=== PATIENT | female | born 1940 | race Caucasian/White ===

== ENCOUNTER 2018-01-14 17:14 | Emergency (ER) | payer MEDICARE, SELFPAY ==
[2018-01-14 17:16] VITALS: PULSE 75; RESP 18; TEMP 36.9; O2SAT 96; BMI 51.2
[2018-01-14 17:22] VITALS: BP 92/67
--- NOTE | 2018-01-14 17:52 | RAD_ITS ---
STUDY: X-RAY - PELVIS AND LEFT HIP REASON FOR EXAM: Female, 77 years old. Left hip pain after fall TECHNIQUE: Radiological exam, hip, unilateral, with pelvis when performed; 2 or 3 views. COMPARISON: None. FINDINGS: There is a non-specific bowel gas pattern. Normal visualized soft tissue structures. Normal bilateral iliac wings, sacroiliac joints and visualized sacrum. Normal bilateral superior and inferior pubic rami. Normal pubic symphysis. Normal bilateral ischial tuberosities. There are osteoarthritic changes of the femoral head with marginal osteophyte formation. Normal acetabulum. There is mild articular joint space narrowing of the hip. RAD/Hip 2-3 Views with Pelvis IMPRESSION: No acute finding Electronically Signed: Liu Live DO at 18:35 EST Tel , Service support ,
--- NOTE | 2018-01-14 17:52 | RAD_ITS ---
STUDY: X-RAY - LEFT KNEE REASON FOR EXAM: Female, 77 years old. Left knee pain after fall TECHNIQUE: 4 view(s) of the knee. COMPARISON: None. FINDINGS: Status post total knee arthroplasty. No evidence of hardware failure or loosening. No significant soft tissue swelling or joint effusion. No acute fracture RAD/Knee 4 or More Views IMPRESSION: No acute finding Electronically Signed: Liu Live DO at 18:36 EST Tel , Service support ,
--- NOTE | 2018-01-14 17:52 | RAD_ITS ---
STUDY: X-RAY - LEFT TIBIA AND FIBULA REASON FOR EXAM: Female, 77 years old. Status post fall TECHNIQUE: 2 view(s) of the tibia and fibula were obtained. COMPARISON: None. FINDINGS: Normal visualized tibia. Normal visualized fibula. Partially imaged bony arthroplasty without evidence of complications The soft tissue structures are unremarkable. RAD/Tibia & Fibula 2 Views IMPRESSION: No acute findings Electronically Signed: Liu Live DO at 18:37 EST Tel , Service support ,
--- NOTE | 2018-01-14 17:52 | RAD_ITS ---
STUDY: X-RAY - UNILATERAL RIBS ( LEFT ) WITH CHEST REASON FOR EXAM: Female, 77 years old. Anterior mid left rib pain after fall TECHNIQUE - RIBS: 4 view(s) of the ribs. TECHNIQUE - CHEST: Single frontal view of the chest. COMPARISON: None. FINDINGS - RIBS: Normal visualized ribs without a demonstrated fracture. FINDINGS - CHEST: The lungs are clear and expanded. There is no demonstrated pleural abnormality. There is mild cardiac enlargement. Normal mediastinum and ester. Normal visualized pulmonary arteries. Normal visualized aortic arch and descending thoracic aorta. There are diffuse degenerative changes of the visualized thoracic spine. There is degenerative osteoarthritis of the bilateral shoulders. There is no demonstrated abnormality of the visualized soft tissue structures of the upper abdomen. RAD/Ribs Uni Min 3V w/PA Chest IMPRESSION: RIBS: Normal x-ray examination of the ribs. CHEST: Mild cardiomegaly. Without acute airspace disease or pneumothorax Electronically Signed: Liu Live DO at 18:37 EST Tel , Service support ,
--- NOTE | 2018-01-14 17:53 | ED.VISSUMM ---
- ER Visit Summary Date of Service: 01/14/18 Chief Complaint: Fall History of Present Illness: The patient is a 77 F presenting after fall. Patient states she turned a corner and tripped and fell. She was at [employer] when this occurred. She did not hit her head or lose consciousness. She complains of left knee and left-sided rib pain. No difficulty breathing. No symptoms before the fall. She did not attempt to ambulate after the fall. She is not on anticoagulants. Physical Examination: Vitals are stable. Patient is afebrile. Alert no acute distress. HEENT exam is unremarkable. Neck is nontender Lungs are clear and equal bilaterally. Left lower chest tenderness with no crepitus Heart is regular rate and rhythm. Abdomen is soft nontender nondistended. No guarding or rebound. Extremities are left anterior knee ecchymosis and tenderness, mild left hip tenderness. Active full range of motion. Normal distal pulse Skin is warm and dry. No focal neurologic deficit. Remainder of exam is unremarkable. Emergency Department Course and Treatment: X-ray of the left tib-fib, knee, and hip show no acute process. X-ray of the left ribs shows no acute process. Patient is able to ambulate in the ED. She is in pain management and will follow-up at her scheduled appointment on Tuesday. She is advised to return to ED for any worsening complaints. Disposition: Discharge home Impression: Status post mechanical fall, LLE contusion, Left chest wall contusion This note was generated with [employer] dictation software. It may contain incorrect words, spelling, and punctuation that were not noted in review of the chart prior to signing ED Disposition - Plan for ED Patient: Chief Complaint: Fall Referrals: Leno Son MD [Primary Care Provider] -
--- NOTE | 2018-01-14 19:14 | ED.DEP ---
ED Disposition - Plan for ED Patient: Chief Complaint: Fall Instructions: ED Mechanical Fall Referrals: Leno Son MD [Primary Care Provider] -
[2018-01-14 19:16] VITALS: BP 100/70; PULSE 72; RESP 16
== END 2018-01-14 19:17 | disposition home or self-care (01) ==
LOC: ED 18:36
PROVIDERS: Emergency Provider Emergency Medicine; Family Provider Family Medicine; PCP Family Medicine
DX: S80.02XA Contusion of left knee, initial encounter (principal); S20.212A Contusion of left front wall of thorax, initial encounter; W01.0XXA Fall on same level from slipping, tripping and stumbling without subsequent striking against object, initial encounter; Y93.9 Activity, unspecified; Y92.59 Other trade areas as the place of occurrence of the external cause; I50.9 Heart failure, unspecified; J44.9 Chronic obstructive pulmonary disease, unspecified; Z96.652 Presence of left artificial knee joint; Z79.82 Long term (current) use of aspirin; Z79.899 Other long term (current) drug therapy
CPT/HCPCS: 71101; 73502; 73564; 73590; 99285

== ENCOUNTER 2023-11-06 14:05 | Inpatient (IN) | payer MEDICARE, SELFPAY ==
[2023-11-06] VITALS (11 sets, daily range): BP systolic 127–180; BP diastolic 55–92; PULSE 69–88; RESP 18–22; TEMP 36.4–37.7; O2SAT 88–98; BMI 57.1; BMI 51.7
--- NOTE | 2023-11-06 14:18 | EKG12_ITS ---
Test Reason : SOB Blood Pressure : / mmHG Vent. Rate : 089 BPM Atrial Rate : 089 BPM P-R Int : 152 ms QRS Dur : 078 ms QT Int : 354 ms P-R-T Axes : 088 -21 087 degrees QTc Int : 430 ms Sinus rhythm with Premature atrial complexes Nonspecific ST and T wave abnormality Abnormal ECG Confirmed by GILLIAN MIMS, MARISOL ([id number]), editor greeting card ELEUTERIO KAMARA ([id number]) on 11/08/2023 8:34:45 AM Referred By: NARCISO Confirmed By:MARISOL FRENCH MD
--- NOTE | 2023-11-06 14:33 | ED.RN ---
NO OLD EKG
--- NOTE | 2023-11-06 14:46 | RAD_ITS ---
STUDY: XR Chest 1 View 11/06/2023 2:45 PM REASON FOR EXAM: Female, 83 years old. sob COMPARISON: None TECHNIQUE: XR Chest 1 View FINDINGS: There is no demonstrated pleural abnormality. Right infiltrate. Enlarged heart size. Normal mediastinum. Normal ester. Prominent appearing increased interstitial lung markings. Normal visualized pulmonary arteries. There is atherosclerotic calcification of the aortic arch with tortuosity. There are diffuse degenerative changes of the visualized thoracic spine. There is degenerative osteoarthritis of the bilateral shoulders. There are no acute findings of the upper abdomen. RAD/Chest 1 View (Portable) IMPRESSION: Right sided pneumonia. Electronically Signed: Mitch Muniz MD at 15:18 EST ,
[2023-11-06 14:47] LABS: Absolute Lymphocyte Count 0.66 X10^3/uL (0.83-4.51); Absolute Neutrophil Count 3.9 X10^3/uL (2.0-7.7); Basophil# 0.03 X10^3/uL; Basophil% 0.6 % (0-1); Eosinophil# 0.04 X10^3/uL; Eosinophils% 0.8 % (0-5); Hematocrit 29.6 % (37-47); Hemoglobin 8.3 g/dL (12.0-15.0); Lymphocyte # 0.66 X10^3/ul (0.83-4.51); Lymphocyte % 12.4 % (19-41); Mean Corpuscular Hgb 22.4 pg (27.0-32.0); Mean Platelet Vol. 10.7 fl (6.2-12.0); Monocyte# 0.69 X10^3/uL; NRBC Flagged by Analyzer 0 % (0-5); Neutrophil # 3.88 X10^3/uL (2.7-7.7); Neutrophil % 72.8 % (47-70); Platelet Count 161 K/mm3 (150-450); RBC Distribution Width CV 17.4 % (11.6-14.6); RBC Distribution Width SD 50.8 fl (35.1-43.9); White Blood Count 5.3 K/mm3 (4.4-11.0)
[2023-11-06 14:53] LABS: Mucous, Urine 0 SEEN /hpf (<or=2+); Squamous Epithelial Cells - UA 0 SEEN /hpf (5-10)
--- NOTE | 2023-11-06 14:54 | EX.ED.DYSGE1 ---
HPI History of Present Illness Chief Complaint: Shortness of Breath Informant: family and EMS Narrative Narrative: Patient presents via EMS secondary to altered mental status, shortness of breath, hypoxia. After patient's daughter arrives she states the patient complaining of some increased shortness of breath yesterday. This morning 5 AM she is just been moaning and not interactive like normal. She does have a history of dementia but daughter states typically it is just repeating some questions here and there. Today was much different. Daughter was recently diagnosed with COVID. Patient also has a history of COPD. She does not wear home oxygen. She has sleep apnea but does not wear CPAP. Daughter was also concern for possible UTI. 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 They are treating this intermittently when she gets flares but did not feel that she was a good surgical candidate. [facility] Medical History (Updated 11/06/23 @ 15:[address] Sun White MD) Arthritis CHF (congestive heart failure) Chronic back pain Colovesical fistula COPD (chronic obstructive pulmonary disease) Dementia with mood disturbance Diabetes DJD (degenerative joint disease) High cholesterol Hypertension Interstitial cystitis Melanoma TACO (obstructive sleep apnea) Pulmonary hypertension Pulmonary nodule Stage 3a chronic kidney disease (CKD) Home Medications albuterol sulfate 2.5 mg/3 mL (0.083 %) solution for nebulization 2.5 mg inhalation Q6H PRN PRN Wheezing 01/14/18 [History Last Taken Unknown] aspirin 81 mg chewable tablet 81 mg PO DAILY@0800 01/14/18 [History Last Taken Unknown] atorvastatin 40 mg tablet 40 mg PO QHS 01/14/18 [History Last Taken Unknown] citalopram 20 mg tablet (Celexa) 20 mg PO DAILY 01/14/18 [History Last Taken Unknown] furosemide 20 mg tablet 20 mg PO BIDCM 01/14/18 [History Last Taken Unknown] hydrocodone-acetaminophen 5-325mg 5mg-325mg 1 tab PO BID PRN Pain 01/14/18 [History Last Taken Unknown] losartan 50 mg tablet (Cozaar) 50 mg PO DAILY 01/14/18 [History Last Taken Unknown] metformin 750 mg tablet,extended release 24 hr 750 mg PO DAILY 01/14/18 [History Last Taken Unknown] Allergy/AdvReac Type Severity Reaction Status Date / Time Iodinated Contrast Media Allergy Other Verified 11/06/23 14:13 [DYEE] tramadol [From Ultram] AdvReac Other Verified 11/06/23 14:13 trazodone AdvReac Other Verified 11/06/23 14:13 Surgical History (Updated 11/06/23 @ 15:16 by Joanne Yanez) History of left knee replacement Social History Smoking Status: Unknown if ever smoked ROS ROS ED Review of Systems ROS Unobtainable: due to mental condition EXAM Physical Exam Const Vital Signs: 11/06/23 14:06 11/06/23 14:12 11/06/23 14:14 Temperature 99.9 F H Temperature Source Temporal Pulse Rate 87 Respiratory Rate 22 H Respiratory Effort Short of Breath Labored Respiratory Depth Deep Respiratory Pattern Tachypnea Blood Pressure 129/69 H Blood Pressure Mean 89 Pulse Ox 88 91 Oxygen Delivery Method Nasal Cannula Nasal Cannula High Flow Oxygen Flow Rate (L/min) 6 6 10 11/06/23 15:11 Temperature 99.9 F H Temperature Source Temporal Pulse Rate 84 Respiratory Rate 21 H Respiratory Effort Respiratory Depth Respiratory Pattern Blood Pressure 134/60 H Blood Pressure Mean 84 Pulse Ox 92 Oxygen Delivery Method High Flow Oxygen Flow Rate (L/min) 10 Positive obese Nutritional Appearance: obese HEENT Reports moist mucous membranes Chest Wall inspection of chest normal and palpation of chest normal Resp Resp Narrative: Mild tachypnea with coarse breath sounds bilaterally. No wheezing appreciated. Cardio regular rate and regular rhythm GI non-tender Palpation: soft Extremity Extremity Narrative: 3+ bilateral lower extremity edema. No significant wounds noted. Neuro Neuro Narrative: Patient will open her eyes and asked where she is. She denies having pain at this time. Spontaneous movement of all 4 extremities noted. Skin no rashes or lesions noted MDM MDM MDM Narrative Medical decision making narrative: Patient placed on cardiac cath technician. She had been transported with a nonrebreather mask. She was placed on 6 L nasal cannula on arrival O2 sat remained 88%. She is currently on 10 L high flow and satting around 91%. IV line initiated. Labwork obtained to evaluate for leukocytosis, anemia, and electrolyte derangement. Swab for COVID, influenza, RSV obtained. Urinalysis obtained to evaluate for infection/hematuria. Chest x-ray obtained to evaluate for acute lung pathology, cardiac size, or mediastinal abnormality. History & Record Review Discussion w/independent historian: Family Lab Data Attestation: I reviewed the patient's lab results. Labs: Laboratory Results - last 24 hr 11/06/23 11/06/23 11/06/23 14:20 14:35 14:50 WBC 5.3 RBC 3.70 L Hgb 8.3 L Hct 29.6 L MCV 80.0 L MCH 22.4 L MCHC 28.0 L RDW Std Deviation 50.8 H RDW Coeff of Esvin 17.4 H Plt Count 161 MPV 10.7 Immature Gran % (Auto) 0.400 Neut % (Auto) 72.8 H Lymph % (Auto) 12.4 L Frio % (Auto) 13.0 H Eos % (Auto) 0.8 Baso % (Auto) 0.6 Absolute Neuts (auto) 3.9 Absolute Lymphs (auto) 0.66 L Nucleated RBC % 0 Sodium 141 Potassium 3.9 Chloride 103 Carbon Dioxide 35.0 H Anion Gap 3 L BUN 23 H Creatinine 1.36 H Estim Creat Clear Calc 28.20 Est GFR (MDRD) Af Amer 48 L Est GFR (MDRD) Non-Af 39 L BUN/Creatinine Ratio 16.9 Glucose 174 H Lactic Acid 1.1 Calcium 8.4 L Phosphorus 3.9 Magnesium 2.1 Total Bilirubin 0.70 Direct Bilirubin 0.27 AST 25 ALT 16 Alkaline Phosphatase 80 Troponin I High Sens 63 H Total Protein 6.5 Albumin 3.1 L Globulin 3.4 Urine Color Red Urine Clarity Sl. Cloudy Urine pH 5.0 Ur Specific [place] 1.025 Urine Protein 100 H Urine Glucose (UA) Normal Urine Ketones 5 H Urine Occult Blood 150 H Urine Nitrite Positive H Urine Bilirubin 6 H Urine Urobilinogen 8 H Ur Leukocyte Esterase 500 H Urine RBC 25-50 SEEN Urine WBC 5-10 SEEN Ur Squamous Epith Cells 0 SEEN Urine Bacteria 3+ Urine Mucus 0 SEEN Radiography Chest X-Ray - ED: 1 View, Read by ED Physician, Chronic Changes and Cardiomegaly Diagnostic Testing: Clinical Impression(s) from Imaging Studies Chest X-Ray 11/06/23 14:46 IMPRESSION: Right sided pneumonia. Electronically Signed: Mitch Muniz MD at 15:18 EST , EKG Initial EKG: Attestation: I personally reviewed and interpreted this EKG as follows: Interpretation: Sinus Rhythm (Sinus 89 with T wave flattening in the anterolateral precordial leads. Difficult ST change.) Treatment and Re-Evaluation :: CBC was white count of 5.3 with a hemoglobin of 8.3. I do not have any prior values available for comparison. 72% neutrophils are noted. Chemistry studies significant for a BUN of 2022 with a creatinine 1.36. Glucose is 174. LFTs are unremarkable. Troponin is slightly elevated at 63. Lactic acid is normal at 1.1. Urinalysis reveals 3+ bacteria with 5-10 white cells, 25-50 red cells, and positive nitrates. Blood and urine cultures have been sent. Patient given a dose of Rocephin. Portable chest x-ray per radiology reveals right-sided infiltrate. On my review she has cardiomegaly and poor inspiration. There may be some fluid overload as well. COVID test does return positive. My suspicion is her lung changes are associated with COVID and not true bacterial pneumonia. The patient remains with an O2 sat in the low 90s on 10 L nasal cannula. I will give her a dose of Decadron. I will speak with hospitalist regarding admission. Discharge Plan Triage Chief Complaint: Shortness of Breath ED Provider: Sun White Dx/Rx/DC Orders Clinical Impression: UTI (urinary tract infection), COVID-19, History of dementia, Respiratory failure, Altered mental status Prescriptions: No Action losartan [Cozaar] 50 MG tablet 50 mg PO DAILY atorvastatin 40 MG tablet 40 mg PO QHS albuterol sulfate 2.5 MG/3 ML solution for nebulization 2.5 mg inhalation Q6H PRN PRN (Reason: Wheezing) hydrocodone-acetaminophen 1 EACH tablet 1 tab PO BID PRN (Reason: Pain) citalopram [Celexa] 20 MG tablet 20 mg PO DAILY aspirin 81 MG tablet,chewable 81 mg PO DAILY@0800 furosemide 20 MG tablet 20 mg PO BIDCM metformin 750 MG tablet extended release 24 hr 750 mg PO DAILY Primary Care Provider: Leno Son Referrals: Leno Son MD [Primary Care Provider] - Disposition Disposition: Home, Self Care
[2023-11-06 15:02] LABS: AST(SGOT) 25 U/L (15-37); Alanine Aminotransfer ALT/SGPT 16 U/L (13-56); Albumin, Serum 3.1 g/dL (3.2-5.0); Alkaline Phosphatase 80 U/L (45-117); Anion Gap 3 (5-15); BUN 23 mg/dL (7-18); BUN/Creat Ratio 16.9 RATIO (10-20); Bilirubin, Direct 0.27 mg/dL (0.00-0.30); Calcium,Total 8.4 mg/dL (8.5-10.1); Chloride 103 mmol/L (98-107); Creatinine, Serum 1.36 mg/dL (0.55-1.02); EST Glomerular Filtration Rate 39 mL/min (>60); Est Glom Filt Rate - Afr Amer 48 mL/min (>60); Globulin 3.4 g/dL (2.2-4.2); Glucose 174 mg/dL (74-106); Magnesium 2.1 mg/dL (1.6-2.6); Phosphorus 3.9 mg/dL (2.5-4.9); Potassium 3.9 mmol/L (3.5-5.1); Protein, Total 6.5 g/dL (6.4-8.2); Sodium Level 141 mmol/L (136-145); Troponin-I HS 63 pg/mL (3.0-54.0)
[2023-11-06 15:06] LABS: Color, Urine Red (Yellow); Glucose, Dipstick Normal (Normal); Ketone-Dipstick 5 mg/dl (Negative); Leukocyte Esterase-Dipstick 500 /ul (Negative); Nitrite-Dipstick Positive (Negative); Occult Blood-Urine 150 /ul (Negative); Protein-Dipstick 100 mg/dl (Negative); Specific Gravity, Urine 1.025 (1.002-1.030); Urine Clarity Sl. Cloudy (Clear); Urine Urobilinogen 8 mg/dl (Normal)
--- OUTSIDE RECORDS SUMMARY | 2023-11-06 15:10 | XMS RPT_ITS | CCD ---
Author Name Unknown Address [address] [place] [address] Organization [facility] Care Team Providers Care Gem Technician Name Role Phone LINO ZHU Unavailable Unavailable Leno Briggs Unavailable Unavailable LINO ZHU Unavailable Unavailable LINO ZHU Unavailable Unavailable Leno Briggs Unavailable Unavailable Leno Briggs MD Primary Care Provider [phone] Leno Briggs MD Primary Care Provider [phone] Leno Briggs MD Primary Care Provider Leno Briggs MD Primary Care Provider [phone] MARII VAIL DO Attending Unavailable PHYSICIAN, NONE Primary Care Unavailable LENO BRIGGS Primary Care Unavailable MADALYN DEGROOT Referring Unavailable EUFEMIA CHAPA Attending Unavailable Leno Briggs MD Primary Care Provider Leno Briggs MD Primary Care Provider Leno Briggs MD Primary Care Provider [phone] LENO BRIGGS Primary Care Unavailable MADALYN DEGROOT Attending Unavailable STEPHANI CROOKS Referring Unavailable EUFEMIA CHAPA Referring Unavailable LENO BRIGGS Primary Care Unavailable Leesa Ramirez Attending Unavailable LENO BRIGGS Primary Care Unavailable LEONEL OSEGUERA Attending Unavailable JEREMIAH AMEZCUA Referring Unavailable LENO BRIGGS Primary Care Unavailable LENO BRIGGS Primary Care Unavailable RADHA BALDWIN Referring Unavailable LENO BRIGGS A Primary Care Unavailable STEPHANI CROOKS Referring Unavailable LENO BRIGGS A Primary Care Unavailable RADHA BALDWIN Attending Unavailable LENO BRIGGS Primary Care Unavailable EUFEMIA CHAPA Referring Unavailable BRIGITTE, LENO A Attending Unavailable BRIGITTE, LENO A Primary Care Unavailable BRIGITTE, LENO A Attending Unavailable BRIGITTE, LENO A Primary Care Unavailable BRIGITTE, LENO A Primary Care Unavailable BRIGITTE, LENO A Attending Unavailable BRIGITTE, LENO A Primary Care Unavailable BRIGITTE, LENO A Referring Unavailable STEPHANI CROOKS Attending Unavailable BRIGITTE, LENO A Primary Care Unavailable BRIGITTE, LENO A Primary Care Unavailable STEPHANI CROOKS Referring Unavailable BRIGITTE, LENO A Primary Care Unavailable STEPHANI CROOKS Attending Unavailable SAMANTHA NAVA Referring Unavailable SAMANTHA NAVA Attending Unavailable SAMANTHA NAVA Admitting Unavailable BRIGITTE, LENO Primary Care Unavailable SHANTAL SERRANO Attending Unavailable STEPHANI CROOKS Referring Unavailable BRIGITTE, LENO Primary Care Unavailable SAMANTHA NAVA Attending Unavailable BRIGITTE, LENO Primary Care Unavailable SHANTAL SERRANO Attending Unavailable BRIGITTE, LENO Primary Care Unavailable BRIGITTE, LENO Primary Care Unavailable SHANTAL SERRANO Referring Unavailable BRIGITTE, LENO Primary Care Unavailable SAMANTHA NAVA Attending Unavailable BRIGITTE, LENO Primary Care Unavailable Allergies Allergy Classification Reported Allergen(s) Allergy Type Date of Onset Reaction(s) Facility (20 sources) codeine; Translations: [CODEINE] Drug Allergy 10-12-20 11 Mental Status Change, Dizziness, Unknown [facility] Repository (1 source) Contrast media; Translations: [CONTRAST DYE] Propensity to adverse reactions (disorder) [facility] Repository (20 sources) escitalopram; Translations: [ESCITALOPRAM] Drug Allergy 05-28-20 13 Other: See Comments [facility] Repository (20 sources) sertraline; Translations: [SERTRALINE HCL] Drug Allergy 10-12-20 11 Other: See Comments [facility] Repository (20 sources) sulfamethoxazole / trimethoprim; Translations: [SULFAMETHOXAZOLE-T RIMETHOPRIM] Drug Allergy 01-21-20 15 Itching [facility] Repository (20 sources) traMADol; Translations: [TRAMADOL] Drug Allergy 10-12-20 11 Other: See Comments, Dermatitis, Dizziness, Other [facility] Repository (20 sources) Garlic preparation; Translations: [GARLIC OIL] Drug Allergy 08-09-20 19 Other: See Comments [facility] Work Phone: (20 sources) oxybutynin; Translations: [OXYBUTYNIN] Drug Allergy 12-03-19 Other: See Comments [facility] Work Phone: (13 sources) traZODone Drug Allergy 01-15-20 Other [facility] (13 sources) Iodinated Contrast Media Drug Allergy 01-15-20 Other [facility] Medications Current Medications Medication Drug Class(es) Dates Sig (Normalized) Sig (Original) acetaminophen 325 mg oral tablet (13 sources) acetaminophen (Tylenol) 325 MG tablet Take by mouth. 0 Active albuterol 0.83 mg/ml inhalation solution (20 sources) beta2-Adrenergic Agonist Start: 01-19-2023 albuterol (2.5 MG/3ML) 0.083% nebulizer solution Take 3 mL by nebulization every 6 hours as needed for wheezing or shortness of breath. 0 01/19/2023 Active Completed/Discontinued Medications Medication Drug Class(es) Dates Sig (Normalized) Sig (Original) acetaminophen 325 mg / HYDROcodone bitartrate 5 mg oral tablet (20 sources) Opioid Agonist Start: 09-12-2023 take 1 tablet by mouth every eight hours as needed HYDROcodone-acetam inophen (NORCO) 5-325 mg per tablet Indications: Chronic pain of both knees , Neuropathic pain , Chronic pain syndrome , Lumbar spondylosis , DDD (degenerative disc disease), cervical , Arthritis, multiple joint involvement Take 1 tablet by mouth every 8 hours as needed. 90 tablet 0 09/12/2023 Active Problems Active Problems Problem Classification Problem Date Documented Da te Episodic/Chronic Administrative/social admission (2 sources) Advance directive discussed with patient; Translations: [Other specified counseling] Onset: 3 08-31-2023 Episodic Anxiety disorders (20 sources) Mixed anxiety and depressive disorder; Translations: [Anxiety disorder, unspecified] Onset: 9 07-31-2019 Chronic Chronic kidney disease (20 sources) Chronic kidney disease stage 3; Translations: [CKD (chronic kidney disease) stage 3, GFR 30-59 ml/min] Onset: 9 07-31-2019 Chronic Chronic kidney disease (1 source) Chronic kidney disease; Translations: [Stage 3a chronic kidney disease (HCC)] Onset: Chronic obstructive pulmonary disease and bronchiectasis (20 sources) Emphysematous bronchitis; Translations: [Chronic obstructive pulmonary disease, unspecified] Onset: 7 04-27-2019 Chronic Congestive heart failure; nonhypertensive (20 sources) Chronic diastolic heart failure; Translations: [Chronic diastolic (congestive) heart failure] Onset: 9 12-03-2019 Chronic Deficiency and other anemia (1 source) Anemia; Translations: [Anemia, unspecified] 09-01-2023 Episodic Delirium, dementia, and amnestic and other cognitive disorders (20 sources) Dementia; Translations: [Dementia with mood disturbance, unspecified dementia severity, unspecified dementia type] Onset: 9 Chronic Diabetes mellitus with complications (20 sources) Type 2 diabetes mellitus; Translations: [Type 2 diabetes mellitus with diabetic chronic kidney disease] Onset: 7 11-29-2019 Chronic Diabetes mellitus without complication (2 sources) Diabetes mellitus without complication; Translations: [Type 2 diabetes mellitus with stage 3a chronic kidney disease, without long-term current use of insulin (HCC)] Onset: 0 Disorders of lipid metabolism (20 sources) Mixed hyperlipidemia; Translations: [Mixed hyperlipidemia] Onset: 2 11-25-2016 Chronic Diverticulosis and diverticulitis (2 sources) Diverticulitis; Translations: [Diverticulitis of intestine, part unspecified, without perforation or abscess without bleeding] Chronic Esophageal disorders (20 sources) Gastroesophageal reflux disease without esophagitis; Translations: [Gastro-esophageal reflux disease without esophagitis] Onset: 7 11-25-2016 Chronic Essential hypertension (20 sources) Essential (primary) hypertension; Translations: [Essential hypertension] Onset: 2 04-27-2019 Chronic Fluid and electrolyte disorders (1 source) Hyponatremia; Translations: [Hypo-osmolality and hyponatremia] 09-01-2023 Episodic Genitourinary symptoms and ill-defined conditions (20 sources) Urge incontinence of urine; Translations: [Urge incontinence] Onset: 3 11-25-2016 Chronic Genitourinary symptoms and ill-defined conditions (20 sources) Increased frequency of urination; Translations: [Frequency of micturition] Onset: 7 03-15-2017 Episodic Hypertension with complications and secondary hypertension (1 source) Hypertensive heart disease with congestive heart failure; Translations: [Hypertensive heart disease with heart failure] Chronic Melanomas of skin (20 sources) H/O Malignant melanoma; Translations: [Personal history of malignant melanoma of skin] 11-15-2018 Episodic Miscellaneous mental health disorders (20 sources) Primary insomnia; Translations: [Primary insomnia] Onset: 7 06-26-2018 Chronic Mood disorders (20 sources) Recurrent major 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; Translations: [Major depressive disorder, recurrent, in full remission] Onset: 2 05-29-2018 Chronic Osteoarthritis (20 sources) Osteoarthritis of right knee joint; Translations: [Unilateral primary osteoarthritis, right knee] Onset: 6 11-25-2016 Chronic Other aftercare (1 source) Other chcf (current) drug therapy; Translations: [Medication management] Onset: 3 Episodic Other connective tissue disease (20 sources) History of total knee arthroplasty; Translations: [Presence of left artificial knee joint] Onset: 8 11-15-2018 Chronic Other connective tissue disease (20 sources) Neuropathic pain; Translations: [Neuralgia and neuritis, unspecified] Onset: 3 11-25-2016 Episodic Other diseases of bladder and urethra (20 sources) Vesicocolic fistula; 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] Onset: 3 Chronic Other diseases of bladder and urethra (2 sources) Vesicointestinal fistula; 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] Onset: 3 Chronic Other ear and sense organ disorders (20 sources) Hearing loss in left ear; Translations: [Unspecified hearing loss, left ear] Onset: 9 07-31-2019 Chronic Other ear and sense organ disorders (20 sources) Sensorineural hearing loss, bilateral; Translations: [Sensorineural hearing loss, bilateral] Onset: 1 03-12-2021 Chronic Other female genital disorders (5 sources) Colovaginal fistula; Translations: [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] Chronic Other female genital disorders (2 sources) 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; Translations: [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] Onset: 3 Chronic Other female genital disorders (1 source) Vulval irritation; Translations: [Other specified noninflammatory disorders of vulva and perineum] Episodic Other gastrointestinal disorders (1 source) History of diverticulitis; Translations: [Personal history of other diseases of the digestive system] 06-06-2023 Episodic Other hereditary and degenerative nervous system conditions (20 sources) Impaired cognition; Translations: [Mild cognitive impairment, so stated] Onset: 9 10-13-2021 Chronic Other lower respiratory disease (2 sources) Dyspnea; Translations: [Shortness of breath] Episodic Other lower respiratory disease (2 sources) Dyspnea on exertion; Translations: [Other forms of dyspnea] Episodic Other nervous system disorders (20 sources) Chronic pain syndrome; Translations: [Chronic pain syndrome] Onset: 2 12-31-2021 Chronic Other non-traumatic joint disorders (20 sources) Arthropathy of multiple joints; Translations: [Arthropathy, unspecified] Onset: 8 11-15-2018 Chronic Other non-traumatic joint disorders (20 sources) Pain in right knee; Translations: [Pain in joint, lower leg] Onset: 0 12-03-2019 Episodic Other nutritional; endocrine; and metabolic disorders (20 sources) Body mass index 40+ - severely obese; Translations: [Morbid (severe) obesity due to excess calories] Onset: 0 12-03-2019 Chronic Other nutritional; endocrine; and metabolic disorders (4 sources) Morbid obesity; Translations: [Morbid (severe) obesity due to excess calories] Chronic Other nutritional; endocrine; and metabolic disorders (2 sources) Morbid (severe) obesity due to excess calories; Translations: [Morbid obesity (HCC)] Onset: 3 Chronic Other nutritional; endocrine; and metabolic disorders (1 source) Obesity, unspecified; Translations: [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)] Onset: 9 Chronic Other screening for suspected conditions (not mental disorders or infectious disease) (2 sources) Computed tomography result abnormal; Translations: [Abnormal findings on diagnostic imaging of other specified body structures] Chronic Other skin disorders (20 sources) Mass of neck; Translations: [Localized swelling, mass and lump, neck] Onset: 0 04-14-2020 Episodic Other skin disorders (2 sources) Foot callus; Translations: [Corns and callosities] Onset: 3 08-31-2023 Episodic Pulmonary heart disease (20 sources) Pulmonary hypertension; Translations: [Pulmonary hypertension, unspecified] Onset: 2 Chronic Residual codes; unclassified (20 sources) Obstructive sleep apnea syndrome; Translations: [Obstructive sleep apnea (adult) (pediatric)] 11-25-2016 Chronic Residual codes; unclassified (3 sources) Amnesia; Translations: [Other amnesia] Episodic Residual codes; unclassified (2 sources) Insomnia; Translations: [Insomnia, unspecified] 05-17-2023 Episodic Spondylosis; intervertebral disc disorders; other back problems (20 sources) Lumbar spondylosis; Translations: [Spondylosis without myelopathy or radiculopathy, lumbar region] Onset: 3 11-25-2016 Chronic Thyroid disorders (20 sources) Thyroid nodule; Translations: [Nontoxic single thyroid nodule] Onset: 9 01-14-2021 Chronic Unclassified (1 source) Unknown / UNK(Unknown) Onset: 7 Unclassified (1 source) APPOINTMENT CANCELLED Unclassified (1 source) Anesthesia Consult Onset: 3 Unclassified (1 source) Dementia with mood disturbance, unspecified dementia severity, unspecified dementia type (HCC); Translations: [Dementia with mood disturbance, unspecified dementia severity, unspecified dementia type (HCC)] Onset: 3 Unclassified (2 sources) Results; Translations: [Results] Onset: 3 Unclassified (1 source) Dementia in other diseases classified elsewhere, moderate, without behavioral disturbance, psychotic disturbance, mood disturbance, and anxiety (HCC); Translations: [Dementia in other diseases classified elsewhere, moderate, without behavioral disturbance, psychotic disturbance, mood disturbance, and anxiety (HCC)] Onset: 3 Unclassified (1 source) Unspecified dementia, unspecified severity, with mood disturbance (HCC); Translations: [Unspecified dementia, unspecified severity, with mood disturbance (HCC)] Onset: 3 Unclassified (2 sources) New Patient; Translations: [New Patient] Onset: 3 Unclassified (2 sources) Other Onset: 3 Urinary tract infections (20 sources) Chronic interstitial cystitis; Translations: [Interstitial cystitis (chronic) without hematuria] 11-15-2018 Chronic Past or Other Problems Problem Classification Problem Date Documented Da te Episodic/Chronic Complication of device; implant or graft (20 sources) 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; Translations: [Pain due to internal orthopedic prosthetic devices, implants and grafts, initial encounter] Onset: 06-08-2018 11-15-2018 Episodic Immunizations and screening for infectious disease (9 sources) Patient encounter status; Translations: [Encounter for immunization] Onset: 06-21-2023 Episodic Inflammatory diseases of female pelvic organs (1 source) Subacute and chronic vaginitis; Translations: [Subacute vaginitis] Onset: 12-28-2022 Episodic Lymphadenitis (20 sources) Cervical lymphadenopathy; Translations: [Localized enlarged lymph nodes] Onset: 12-18-2013 11-25-2016 Episodic Nausea and vomiting (20 sources) Nausea; Translations: [Nausea] Onset: 07-11-2020 07-11-2020 Episodic Other aftercare (20 sources) Drug therapy finding; Translations: [Other chief radiation therapist (current) drug therapy] Onset: 11-25-2016 01-04-2020 Episodic Other and unspecified benign neoplasm (20 sources) History of polyp of colon; Translations: [Personal history of colonic polyps] Onset: 01-23-2016 11-25-2016 Episodic Other connective tissue disease (20 sources) Recurrent falls ; Translations: [Repeated falls] Onset: 05-15-2019 05-15-2019 Episodic Other female genital disorders (2 sources) Unspecified condition associated with female genital organs and menstrual cycle; Translations: [Vaginal burning] Onset: 12-28-2022 Episodic Other gastrointestinal disorders (1 source) Full incontinence of feces; Translations: [Incontinence of feces, unspecified fecal incontinence type] Onset: 12-28-2022 Episodic Other lower respiratory disease (20 sources) Multiple nodules of lung; Translations: [Other nonspecific abnormal finding of lung field] Onset: 03-03-2013 06-06-2017 Episodic Other non-traumatic joint disorders (20 sources) Hip pain; Translations: [Pain in unspecified hip] Onset: 12-23-2014 11-25-2016 Episodic Other screening for suspected conditions (not mental disorders or infectious disease) (1 source) Encounter for screening for cardiovascular disorders; Translations: [Screening for ischemic heart disease] Onset: 02-21-2023 Episodic Residual codes; unclassified (20 sources) Bilateral lower limb edema; Translations: [Localized edema] Onset: 07-31-2019 12-03-2019 Episodic Residual codes; unclassified (2 sources) Insomnia, unspecified; Translations: [Insomnia, unspecified] Onset: 05-17-2023 Episodic Residual codes; unclassified (2 sources) Other amnesia; Translations: [Other amnesia] Onset: 04-05-2023 Episodic Screening and history of mental health and substance abuse codes (20 sources) Ex-smoker; Translations: [Personal history of nicotine dependence] Onset: 07-21-2017 12-03-2019 Episodic Skin and subcutaneous tissue infections (13 sources) Cellulitis of right lower limb; Translations: [Cellulitis of right lower limb] Onset: 04-01-2019 08-23-2022 Episodic Spondylosis; intervertebral disc disorders; other back problems (20 sources) Backache; Translations: [Dorsalgia, unspecified] Onset: 12-08-2012 01-05-2021 Episodic Unclassified (1 source) Dementia in other diseases classified elsewhere, moderate, without behavioral disturbance, psychotic disturbance, mood disturbance, and anxiety (HCC); Translations: [Dementia in other diseases classified elsewhere, moderate, without behavioral disturbance, psychotic disturbance, mood disturbance, and anxiety (HCC)] Onset: 05-17-2023 Unclassified (1 source) Unspecified dementia, unspecified severity, with mood disturbance (HCC); Translations: [Unspecified dementia, unspecified severity, with mood disturbance (HCC)] Onset: 05-17-2023 Results Test Name Value Interpretation Reference Range [facility] it Vital Signs Date Time Vital Sign Value Performing Clinician Amy perdue 06-21-2023 14:28-0400 Body weight 137.44 kg Leno Briggs MD Work Phone: [facility] 06-21-2023 14:28-0400 Diastolic blood pressure 84 mm[Hg] Leno Briggs MD Work Phone: [facility] 06-21-2023 14:28-0400 Heart rate 80 /min Leno Briggs MD Work Phone: [facility] 06-21-2023 14:28-0400 Respiratory rate 14 /min Leno Briggs MD Work Phone: [facility] 06-21-2023 14:28-0400 Systolic blood pressure 136 mm[Hg] Leno Briggs MD Work Phone: [facility] 05-25-2023 11:49-0400 Diastolic blood pressure 77 mm[Hg] Samantha Nava MD Work Phone: [facility] Encounters Encounter Date Encounter Type Care Provider Facility Start: 09-19-2023 ambulatory Leno silva MD Work Phone: [facility] Procedures Date Procedure Procedure Detail Performing Clinician Start: 06-21-2023 Drug tst prsmv instr mnt chem analyzers pr date Leno Briggs MD Work Phone: Start: 05-25-2023 Colonoscopy Samantha Santillan ch, MD Work Phone: Start: 05-04-2023 Cyanocobalamin vitamin b-12 Shantal Serrano PREPRESS SPECIALIST - [employer]BI[employer] REPAIRER Work Phone: Start: 11-04-2022 INFLUENZA SEASONAL QUADRIVALENT HIGH DOSE AGE 65+ Stephani Crooks PA-C Work Phone: Start: 05-18-2022 Brncdilat rspse spmt ry pre&post-brncdilat admn Stephani Crooks PA-C Work Phone: Plan of Treatment Date Care Activity Detail Author Start: 05-25-2028 Screening for malign ant neoplasm of colon [facility] Start: 08-31-2024 3 comp foot exam completed Diabetic Foot Exam [facility] Start: 08-31-2024 Covid-19 Vaccine ( season) Covid-19 Vaccine ( season) [facility] Immunizations Immunization Date Immunization Notes Care Provider Verito paulino 08-31-2023 influenza (HD-IIV4) vaccine, age 65+ yr, high dose, quadrivalent, PF (FLUZONE HIGH-DOSE) Leno Briggs MD Work Phone: [facility] 08-31-2023 pneumococcal (PCV20) vaccine, 20 valent (PREVNAR 20) Leno Briggs MD Work Phone: [facility] 11-04-2022 influenza, high-dose , quadrivalent vaccine (FLUZONE HIGH DOSE QUADRIVALENT) Stephani Crooks PA-C Work Phone: [facility] 11-04-2022 influenza virus vacc ine, unspecified formulation Samantha Nava MD Work Phone: [facility] 09-03-2021 influenza, high-dose , quadrivalent vaccine (FLUZONE HIGH DOSE QUADRIVALENT) Leno Briggs MD Work Phone: [facility] 03-17-2021 COVID-19 vaccine, fu ll dose (MODERNA) Leno Briggs MD Work Phone: [facility] 02-17-2021 COVID-19 vaccine, fu ll dose (MODERNA) Leno Briggs MD Work Phone: [facility] 07-31-2019 influenza, high dose seasonal, preservative-free Leno Briggs MD Work Phone: [facility] 09-13-2018 influenza, high dose seasonal, preservative-free Leno Briggs MD Work Phone: [facility] 12-12-2017 pneumococcal polysaccharide vaccine, 23 valent Leno Briggs MD Work Phone: [facility] 09-27-2017 influenza, injectabl e, quadrivalent, contains preservative Leno Briggs MD Work Phone: [facility] 08-27-2016 influenza, injectabl e, quadrivalent, contains preservative Leno Briggs MD Work Phone: [facility] Work Phone: 09-15-2015 influenza, high dose seasonal, preservative-free Leno Briggs MD Work Phone: [facility] Work Phone: 09-15-2015 pneumococcal conjuga te vaccine, 13 valent Leno Briggs MD Work Phone: [facility] Work Phone: 09-20-2014 influenza, seasonal, injectable Leno Briggs MD Work Phone: [facility] Work Phone: 03-27-2014 zoster vaccine, live Leno Briggs MD Work Phone: [facility] Work Phone: 10-24-2013 influenza virus vacc ine, unspecified formulation Leno Briggs MD Work Phone: [facility] 09-06-2012 influenza virus vacc ine, unspecified formulation Leno Briggs MD Work Phone: [facility] Work Phone: 06-21-2012 pneumococcal polysaccharide vaccine, 23 valent Leno Briggs MD Work Phone: [facility] Work Phone: 04-24-2012 pneumococcal polysaccharide vaccine, 23 valent Leno Briggs MD Work Phone: [facility] Work Phone: Payers Date Payer Category Payer Medicare UHC AARP MEDICAR E UHC AARP MEDICARE HMO [id number] 2021-Present [phone] [address] [address] [place] [address] O [id number] 2021 Medicare [id number] 2021 Private Health Insurance [id number] 1940 Unknown [id number] Medicare [id number] Social History Date Type Detail Facility Start: 08-15-2012 End: 04-05-2023 Tobacco smoking status NHIS Ex-smoker [facility] End: 09-22-1997 History of tobacco use Current smoker [facility] End: 09-22-1997 History of tobacco use Cigarette Smoker [facility] Start: 08-15-2012 End: 04-05-2023 Cigarettes smoked current (pack per day) - Reported 3 [facility] Start: 08-15-2012 End: 07-05-2022 Tobacco use and exposure Smokeless tobacco non-user [facility] Start: 10-13-2021 End: 08-31-2023 Alcohol intake Current non-drinker of alcohol (finding) [facility] Start: 1940 Sex Assigned At Female [facility] Start: 03-12-2022 End: 05-30-2023 Exposure to SARS-CoV-2 (event) Not sure [facility] Work Phone: Start: 07-09-2022 End: 07-19-2022 Exposure to SARS-CoV-2 (event) Unable to assess [facility] Work Phone: Start: 04-01-2023 History SDOH Alcohol Frequency 1 [facility] [facility] Start: 04-01-2023 History SDOH Alcohol Std Drinks 0 [facility] Start: 04-01-2023 History SDOH Social Connections Phone 4 [facility] Start: 04-01-2023 History SDOH Social Connections Get Together 5 [facility] Start: 04-01-2023 History SDOH Social Connections Membership 2 [facility] Start: 04-05-2023 End: 05-30-2023 Alcohol intake Lifetime non-drinker (finding) [facility] Start: 1940 Sex Assigned At Not on file [facility] Start: 04-05-2023 End: 04-11-2023 Tobacco use panel [facility] Within the last year , have you been afraid of your partner or ex-partner? No [facility] Are you now , , , , never or living with a partner? [facility] How often to you hav e a drink containing alcohol? Never [facility] How many standard drinks containing alcohol do you have on a typical day? Patient does not drink [facility] How hard is it for y ou to pay for the very basics like food, housing, medical care, and heating Not very hard [facility] Do you feel stress - tense, restless, nervous, or anxious, or unable to sleep at night because your mind is troubled all the time - these days [OSQ] Only a little [facility] (I/We) worried wheth er (my/our) food would run out before (I/we) got money to buy more. Never true [facility] Start: 07-17-2021 Gender identity Identifies as female gender (finding) [facility] Start: 07-17-2021 Sexual orientation Heterosexual (torres parker) [facility] Medical Equipment Procedure Code Equipment Code Equipment Origin al Text Equipment Identifier Dates Start: 09-08-2021 Clinical Notes 01-01-2019 to 09-20-2023 Telephone Encounter - [facility] - 09/20/2023 10:45 AM ESTTelephone Encounter - [place] [place] [facility] - 09/20/2023 7:54 AM ESTTelephone Encounter - Loida Rosas - 09/15/2023 3:40 PM EST Note Date & Type Note Facility 09-20-2023 Miscellaneous Notes PA approved [phone] Daughter was notified approved not sure on cost of drug with insurance covering will need to call pharmacy to get info [facility] Reviewed medication and rx was sent correctly 2 BID for 90 day supply is 360 tab, did submit a PA to see if cost can be lowered for 90 day supply [facility] documented in this encounter [facility] 09-15-2023 Telephone encounter Note Left message notifying and to call back with which way they'd like to do the visit. [facility] 09-15-2023 Miscellaneous Notes Left message notifying and to call back with which way they'd like to do the visit. OK for virtual visit although we will not be able to facilitate memory testing over MyChart or phone. If they are wanting memory testing then visit will need to be in the office. Name of caller: Mariela Contact phone number: [phone] Relationship to Patient: Chandan Provider: Shantal Serrano APRN, CNP Practice: [facility] Chief Complaint/Reason for Call: Mariela Hawley called asking if the 09-27 office visit appt. May be changed to a Video. Mariela stated that patient has several appointments on 09-26 and that the next day appt., 09-27 may be too much. Pt easily gets tired. Please advise. Best time of day caller can be reached: any Patient advised that office/PCP has 24-48 business hours to return their call: Yes documented in this encounter [email or web address] 09-15-2023 Telephone encounter Note OK for virtual visit although we will not be able to facilitate memory testing over MyChart or phone. If they are wanting memory testing then visit will need to be in the office. [employer] [email or web address] 09-14-2023 Telephone encounter Note Name of caller: Mariela Contact phone number: [phone] Relationship to Patient: Daughter Provider: Shantal Serrano APRN, CNP Practice: [facility] Chief Complaint/Reason for Call: Mariela Hawley called asking if the 09-27 office visit appt. May be changed to a Video. Mariela stated that patient has several appointments on 09-26 and that the next day appt., 09-27 may be too much. Pt easily gets tired. Please advise. Best time of day caller can be reached: any Patient advised that office/PCP has 24-48 business hours to return their call: Yes [email or web address] 09-02-2023 Miscellaneous Notes Daughter was notified [place] [place] [facility] Let daughter know CBC shows an anemia and maybe from chronic blood loss in the urine from the fistula. Want to check Iron studies and folate. Orders placed. Mb, lipid panel and B12 were all ok. Her A1c is very good at 5.6% and would recommend stopping the Actos (pioglitazone). Kidney and liver functions ok. Sodium slightly high and will repeat. Order placed. Advise her to gets this labs at the end of next week. Ill recheck the CBC again to see if the anemia is stable or not. documented in this encounter [facility] 08-31-2023 Note HNO ID: [id number] Author: Leno Briggs MD Service: ? Author Type: Physician Type: Progress Notes Filed: 08/31/2023 10:26 PM Note Text: Welcome To Medicare Visit Medical B eligibility date 07/08/2005 Date of last exam 01/05/2021 PAST MEDICAL HISTORY PAST MEDICAL HISTORY Diagnosis Date Anxiety and depression 01/01/2019 Arthritis of shoulder region, degenerative right Corticosteroid 09/20/14, left corticosteroid 10/07/14 Arthritis, multiple joint involvement 01/16/2018 Advised tylenol Arthritis 11/15/2018 and to avid NSAID's with her Hx of stomach issues and being diabetic for risk of renal impairment. Bilateral leg edema 07/31/2019 Bilateral primary osteoarthritis of knee 03/26/2019 Cervical spondylosis with myelopathy 07/29/2015 Chronic diastolic heart failure (HCC), mild. 08/27/[address] Bravo. Chronic pain of both knees 11/16/2019 CKD (chronic kidney disease) stage 3, GFR 30-59 ml/min ([facility]) 01/01/2019 COPD with chronic bronchitis ([facility]) 02/15/2017 Dr. Brito Current use of proton pump inhibitor 11/25/2016 Mg checked 11/2017 DDD (degenerative disc disease), cervical 07/29/2015 DDD (degenerative disc disease), lumbar 05/08/2013 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) 06/2015 a1c 6.5% Diabetic eye exam ([facility]) 03/15/2017 Last done: 10/24/2019 No Retinopathy Essential hypertension 08/17/2012 Ex-smoker 07/21/2017 Started around age 21 up to 2.3-3 PPD, Quit around age 57 Frequency of micturition 12/27/2016 Frequent falls 05/15/2019 GERD without esophagitis 11/25/[address] Slade Hearing loss in left ear Hip pain 12/23/2014 History of melanoma Interstitial cystitis Lumbar radiculopathy 04/29/2014 Lumbar spondylosis Lymphadenopathy of left cervical region 12/18/2013 MCI (mild cognitive impairment) 01/01/2019 Mechanical back pain 12/08/[address] Quezada for pain management. Medicare annual wellness visit, subsequent 12/05/2017 Medicare part B: 07/08/2005 last done:01/04/2020 Mixed hyperlipidemia 08/17/2012 Neuropathic pain 12/08/2012 Obesity, Class III, BMI >= 40 06/26/2018 TACO (obstructive sleep apnea) DME [employer] fx [phone] Pain due to total left knee replacement ([facility]) 06/08/2018 Personal history of colonic polyps 01/23/2016 Primary insomnia 03/16/2017 Brain troy 06/26/2018 recommended Klonopin every other day for a week and then just as needed. Primary osteoarthritis of right knee 07/13/2016 Pulmonary nodules 03/03/2013 Incidental non-calcified nodules 10/09/2012. Repeat CT due 06/2013 Recurrent major depressive disorder, in full remission ([facility]) 08/17/2012 Rheumatoid arthritis(714.0) Spondylosis of lumbar region without myelopathy or radiculopathy 05/28/2015 Status post total left knee replacement 06/08/2018 Stress incontinence 11/21/[address] Armas. Thyroid nodule 11/15/2018 Stable on US 2017 Type 2 diabetes mellitus with stage 3 chronic kidney disease, without long-term current use of insulin ([facility]) 06/06/2017 Urge incontinence 11/21/2012 PAST SURGICAL HISTORY PAST SURGICAL HISTORY Procedure Laterality Date CHOLECYSTECTOMY HX 10/30/1997 COLONOSCOP W/ OR W/O BRS SPEC 11/29/12 Colonoscopy repeat 3 years COLONOSCOP W/ OR W/O BRS SPEC 01/28/16 Colonoscopy with mac COLONOSCOPY AND POLYPECTOMY ~2007 2 polyps COLONOSCOPY AND POLYPECTOMY ~2001 7 polyps COLONOSCOPY AND POLYPECTOMY 11/30/2011 CYSTOSCOPY 09/21/12 EGD 10/17/2011 Dr Negrete in [place] EGD W/O OR W/BRUSH/WASH 05/16/2014 EGD EGD W/O OR W/BRUSH/WASH 09/12/14 EGD EGD W/O OR W/BRUSH/WASH 01/06/2017 EGD EGD W/O OR W/BRUSH/WASH 07/21/2020 EGD REMOVE CATARACT, INSERT LENS, INTRACAPSUL Bilateral 2009 TOTAL KNEE REPLACEMENT Left 06/08/2012 Bactrim [Sulfamethoxazole-Trimethoprim], Codeine, Garlic Oil, Lexapro [Escitalopram], Oxybutynin, Sertraline, Tramadol, and Zoloft [Sertraline Hcl] Medications reviewed: Yes FAMILY HISTORY FAMILY HISTORY Problem Relation Age of Onset Hypertension Mother Heart Mother Lipids Mother HIGH CHOLESTEROL Heart Father SD Ischemic Heart Disease Father STROKE other (diabetic) Father Diabetes Sister Diabetes Sister Breast Cancer Sister SOCIAL HISTORY: SOCIAL HISTORY Social History Tobacco Use Smoking status: Former Smoker Packs/day: 3.00 Years: 35.00 Pack years: 105.00 Types: Cigarettes Quit date: 09/22/1997 Years since quittin.3 Smokeless tobacco: Never Used Substance Use Topics Alcohol use: No Drug use: No Robbin denies regular aerobic exercise. She watches her diet for sodium, low fat and low cholesterol generally not very much. List of current specialists seen: Cardiology Pulmonary Ophthalmology [facility] End of Live Planning discussed including patients advanced directive wishes: Yes I am willing to follow Robbin's advanced directives. PHQ-2 / Depression screen Depression Screening PHQ-2 Score PHQ-9 Score 08/31/2023 1 - Depression screening tool completed and revi (more content not included)... [facility] 08-23-2023 Miscellaneous Notes The following approved medication requests have been transmitted electronically. Requested Prescriptions Signed Prescriptions Disp Refills phenazopyridine (PYRIDIUM) 100 mg tablet 360 tablet 1 Sig: Take 2 tablets by mouth two times a day. Authorizing Provider: LENO BRIGGS MD Change of Pharmacy Requested Prescriptions Pending Prescriptions Disp Refills phenazopyridine (PYRIDIUM) 100 mg tablet 120 tablet 5 Sig: Take 2 tablets by mouth two times a day. Date of last office visit in primary care: 06/21/2023 Date of next office visit in primary care: 08/31/2023 Please advise. Thank you. Nel Cope LPN. documented in this encounter [facility] 08-16-2023 Telephone encounter Note Preferred contact number: [phone] Reason for Visit: Caller states she would like to cancel appointment due to transportation and would like a call to schedule. Please advise. Thank you Urgency of Appointment: na Medications in need of refill: na [facility] 08-16-2023 Miscellaneous Notes Preferred contact number: [phone] Reason for Visit: Caller states she would like to cancel appointment due to transportation and would like a call to schedule. Please advise. Thank you Urgency of Appointment: na Medications in need of refill: na documented in this encounter [facility] 07-05-2023 Telephone encounter Note Daughter wanted to know if it could be called in for 5mg due to having to break the 10mg in half. Medication name: donepezil Medication dosage: 5 mg (Miligrams Monthly quantity needed: 90 How many day supply requestin days Medication route: oral (PO) Medication administration time(s): daily If taking medication PRN, reason for taking medication: N/A If this is a controlled substance do you receive this or any other controlled medication from any other doctor or facility: N/A Ordering provider: historic Date of last office visit: 05/17/2023 Date of next office visit: 08/16/2023 Date of last refill: (see medication tab): na Updated/Validated preferred pharmacy: Yes Patient instructed to contact the pharmacy prior to picking up the medication: N/A [facility] 07-05-2023 Miscellaneous Notes Daughter wanted to know if it could be called in for 5mg due to having to break the 10mg in half. Medication name: donepezil Medication dosage: 5 mg (Miligrams Monthly quantity needed: 90 How many day supply requestin days Medication route: oral (PO) Medication administration time(s): daily If taking medication PRN, reason for taking medication: N/A If this is a controlled substance do you receive this or any other controlled medication from any other doctor or facility: N/A Ordering provider: historic Date of last office visit: 05/17/2023 Date of next office visit: 08/16/2023 Date of last refill: (see medication tab): na Updated/Validated preferred pharmacy: Yes Patient instructed to contact the pharmacy prior to picking up the medication: N/A documented in this encounter [facility] 07-05-2023 Miscellaneous Notes Spoke with pt's daughter and information below given. Shelby Rogel LPN Left message for pt's daughter to contact office. Grecia Riley LPN Let family know the Aricept (donepezil) is prescribed by patient's manager review and will need to contact that office for refill.. The following approved medication requests have been transmitted electronically. Requested Prescriptions Signed Prescriptions Disp Refills sertraline (ZOLOFT) 50 mg tablet 90 tablet 1 Sig: TAKE 1 TABLET BY MOUTH ONCE DAILY Authorizing Provider: BRIGITTE, LENO A losartan (COZAAR) 50 mg tablet 90 tablet 1 Sig: TAKE 1 TABLET BY MOUTH ONCE DAILY Authorizing Provider: LENO BRIGGS Refused Prescriptions Disp Refills donepezil (ARICEPT) 10 mg tablet [Pharmacy Med Name: Donepezil HCl 10 MG Oral Tablet] 90 tablet 1 Sig: TAKE 1 TABLET BY MOUTH DAILY AT BEDTIME Refused By: LENO BRIGGS Reason for Refusal: Patient should contact Prescriber first Leno Briggs MD Patient has been identified by name and date of : Yes Pharmacy phones for refill(s): Requested Prescriptions Pending Prescriptions Disp Refills sertraline (ZOLOFT) 50 mg tablet [Pharmacy Med Name: Sertraline HCl 50 MG Oral Tablet] 90 tablet 3 Sig: TAKE 1 TABLET BY MOUTH ONCE DAILY donepezil (ARICEPT) 10 mg tablet [Pharmacy Med Name: Donepezil HCl 10 MG Oral Tablet] 90 tablet 3 Sig: TAKE 1 TABLET BY MOUTH DAILY AT BEDTIME losartan (COZAAR) 50 mg tablet [Pharmacy Med Name: Losartan Potassium 50 MG Oral Tablet] 90 tablet 3 Sig: TAKE 1 TABLET BY MOUTH ONCE DAILY Date of last office visit in primary care: 06/21/2023 Please advise. Thank you. Nel Cope LPN documented in this encounter [facility] 06-21-2023 Note HNO ID: [id number] Author: Leno Briggs MD Service: ? Author Type: Physician Type: Progress Notes Filed: 06/21/2023 4:09 PM Note Text: Chief Complaint Patient presents with: Recheck: Follow up 6 months HPI Robbin Singh is a 82 year old female who presents here today for pain management follow up Office visit - pain management follow up 06/21/2023 Patient has chronic pain from arthritis in multiple areas. Due to this her quality of life is less. She has been taking [place] 5/325 one twice a day since 04/2018 and up till now was doing well with this. Her daughter, (Mariela) who is her with her today, notes that it no longer controls the pain for as long of a time as it used to. She requires extra strength tylenol in between doses and even then it's not as well as when she takes a [place]. Patient has not been seen for routine since 10/2022. She is now seeing a manager review for her dementia. 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 Mariela says the colorectal surgeon said it was ok for her to take Azo daily to help reduce her dysuria. Patient is no longer taking aldactone but mariela is not sure how this came about. Patient has not had any increased leg swelling with being off it. Past medical history, appointments, medications, allergies reviewed. Previous Medical History PAST MEDICAL HISTORY Diagnosis Date Anxiety and depression 01/01/2019 Arthritis of shoulder region, degenerative right Corticosteroid 09/20/14, left corticosteroid 10/07/14 Arthritis, multiple joint involvement 01/16/2018 Advised tylenol Arthritis 11/15/2018 and to avid NSAID's with her Hx of stomach issues and being diabetic for risk of renal impairment. Bilateral leg edema 07/31/2019 Bilateral primary osteoarthritis of knee 03/26/2019 Cervical spondylosis with myelopathy 07/29/2015 Chronic diastolic heart failure (HCC), mild. 08/27/[address] Bravo. Chronic pain of both knees 11/16/2019 CKD (chronic kidney disease) stage 3, GFR 30-59 ml/min ([facility]) 01/01/2019 COPD with chronic bronchitis ([facility]) 02/15/2017 Dr. Brito Current use of proton pump inhibitor 11/25/2016 Mg checked 11/2017 DDD (degenerative disc disease), cervical 07/29/2015 DDD (degenerative disc disease), lumbar 05/08/2013 Diabetes mellitus type 2 in obese ([facility]) 06/2015 a1c 6.5% Diabetic eye exam ([facility]) 03/15/2017 Last done: 10/24/2019 No Retinopathy Essential hypertension 08/17/2012 Ex-smoker 07/21/2017 Started around age 21 up to 2.3-3 PPD, Quit around age 57 Frequency of micturition 12/27/2016 Frequent falls 05/15/2019 GERD without esophagitis 11/25/[address] Slade Hearing loss in left ear Hip pain 12/23/2014 History of melanoma Interstitial cystitis Lumbar radiculopathy 04/29/2014 Lumbar spondylosis Lymphadenopathy of left cervical region 12/18/2013 MCI (mild cognitive impairment) 01/01/2019 Mechanical back pain 12/08/[address] Quezada for pain management. Medicare annual wellness visit, subsequent 12/05/2017 Medicare part B: 07/08/2005 last done:01/04/2020 Mixed hyperlipidemia 08/17/2012 Neuropathic pain 12/08/2012 Obesity, Class III, BMI >= 40 06/26/2018 TACO (obstructive sleep apnea) DME [employer] fx [phone] Pain due to total left knee replacement (HCC) 06/08/2018 Personal history of colonic polyps 01/23/2016 Primary insomnia 03/16/2017 Brain troy 06/26/2018 recommended Klonopin every other day for a week and then just as needed. Primary osteoarthritis of right knee 07/13/2016 Pulmonary hypertension (HCC) 05/19/2022 Seeing pulm and cardio Pulmonary nodules 03/03/2013 Incidental non-calcified nodules 10/09/2012. Repeat CT due 06/2013 Recurrent major depressive disorder, in full remission ([facility]) 08/17/2012 Rheumatoid arthritis(714.0) Spondylosis of lumbar region without myelopathy or radiculopathy 05/28/2015 Status post total left knee replacement 06/08/2018 Stress incontinence 11/21/[address] Armas. Thyroid nodule 11/15/2018 Stable on 2017 Type 2 diabetes mellitus with stage 3 chronic kidney disease, without long-term current use of insulin ([facility]) 06/06/2017 Urge incontinence 11/21/2012 Previous Surgical History PAST SURGICAL HISTORY Procedure Laterality Date ARTHRP KNE CONDYLEANDPLATU MEDIALANDLAT COMPARTMENTS Left 06/08/2012 CHOLECYSTECTOMY HX 10/30/1997 COLONOSCOPY AND POLYPECTOMY ~2007 2 polyps COLONOSCOPY AND POLYPECTOMY ~2001 7 polyps COLONOSCOPY AND POLYPECTOMY 11/30/2011 COLONOSCOPY FLX DX W/COLLJ SPEC WHEN PFRMD 11/29/12 Colonoscopy repeat 3 years COLONOSCOPY FLX DX W/COLLJ SPEC WHEN PFRMD 01/28/16 Colonoscopy with mac CYSTOSCOPY 09/21/12 EGD 10/17/2011 Dr Negrete in [place] ESOPHAGOGASTRODUODENOSCOPY TRANSORAL DIAGNOSTIC 05/16/2014 EGD ESOPHAGOGASTRODUODENOSCOPY TRANSORAL DIAGNOSTIC 09/12/14 EGD ESOPHAGOGASTRODUODENOSCOPY TRANSORAL DIAGNOSTIC 01/06/2017 EGD ESOPHAGOGASTRODUODENOSCOPY TRANSORAL D (more content not included)... [facility] 06-21-2023 History of Present illness Narrative Chief Complaint Patient presents with: Recheck: Follow up 6 months HPI Robbin Singh is a 82 year old female who presents here today for pain management follow up Office visit - pain management follow up 06/21/2023 Patient has chronic pain from arthritis in multiple areas. Due to this her quality of life is less. She has been taking [place] 5/325 one twice a day since 04/2018 and up till now was doing well with this. Her daughter, (Mariela) who is her with her today, notes that it no longer controls the pain for as long of a time as it used to. She requires extra strength tylenol in between doses and even then it's not as well as when she takes a [place]. Patient has not been seen for routine since 10/2022. She is now seeing a manager review for her dementia. 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 Mariela says the colorectal surgeon said it was ok for her to take Azo daily to help reduce her dysuria. Patient is no longer taking aldactone but mariela is not sure how this came about. Patient has not had any increased leg swelling with being off it. Past medical history, appointments, medications, allergies reviewed. Previous Medical History PAST MEDICAL HISTORY Diagnosis Date Anxiety and depression 01/01/2019 Arthritis of shoulder region, degenerative right Corticosteroid 09/20/14, left corticosteroid 10/07/14 Arthritis, multiple joint involvement 01/16/2018 Advised tylenol Arthritis 11/15/2018 and to avid NSAID's with her Hx of stomach issues and being diabetic for risk of renal impairment. Bilateral leg edema 07/31/2019 Bilateral primary osteoarthritis of knee 03/26/2019 Cervical spondylosis with myelopathy 07/29/2015 Chronic diastolic heart failure (HCC), mild. 08/27/[address] Bravo. Chronic pain of both knees 11/16/2019 CKD (chronic kidney disease) stage 3, GFR 30-59 ml/min (HCC) 01/01/2019 COPD with chronic bronchitis (HCC) 02/15/2017 Dr. Brito Current use of proton pump inhibitor 11/25/2016 Mg checked 11/2017 DDD (degenerative disc disease), cervical 07/29/2015 DDD (degenerative disc disease), lumbar 05/08/2013 Diabetes mellitus type 2 in obese ([facility]) 06/2015 a1c 6.5% Diabetic eye exam ([facility]) 03/15/2017 Last done: 10/24/2019 No Retinopathy Essential hypertension 08/17/2012 Ex-smoker 07/21/2017 Started around age 21 up to 2.3-3 PPD, Quit around age 57 Frequency of micturition 12/27/2016 Frequent falls 05/15/2019 GERD without esophagitis 11/25/[address] Slade Hearing loss in left ear Hip pain 12/23/2014 History of melanoma Interstitial cystitis Lumbar radiculopathy 04/29/2014 Lumbar spondylosis Lymphadenopathy of left cervical region 12/18/2013 MCI (mild cognitive impairment) 01/01/2019 Mechanical back pain 12/08/[address] Quezada for pain management. Medicare annual wellness visit, subsequent 12/05/2017 Medicare part B: 07/08/2005 last done:01/04/2020 Mixed hyperlipidemia 08/17/2012 Neuropathic pain 12/08/2012 Obesity, Class III, BMI >= 40 06/26/2018 TACO (obstructive sleep apnea) DME [employer] fx [phone] Pain due to total left knee replacement ([facility]) 06/08/2018 Personal history of colonic polyps 01/23/2016 Primary insomnia 03/16/2017 Brain center 06/26/2018 recommended Klonopin every other day for a week and then just as needed. Primary osteoarthritis of right knee 07/13/2016 Pulmonary hypertension (HCC) 05/19/2022 Seeing pulm and cardio Pulmonary nodules 03/03/2013 Incidental non-calcified nodules 10/09/2012. Repeat CT due 06/2013 Recurrent major depressive disorder, in full remission ([facility]) 08/17/2012 Rheumatoid arthritis(714.0) Spondylosis of lumbar region without myelopathy or radiculopathy 05/28/2015 Status post total left knee replacement 06/08/2018 Stress incontinence 11/21/[address] Armas. Thyroid nodule 11/15/2018 Stable on 2017 Type 2 diabetes mellitus with stage 3 chronic kidney disease, without long-term current use of insulin ([facility]) 06/06/2017 Urge incontinence 11/21/2012 Previous Surgical History PAST SURGICAL HISTORY Procedure Laterality Date ARTHRP KNE CONDYLE&PLATU MEDIAL&LAT COMPARTMENTS Left 06/08/2012 CHOLECYSTECTOMY HX 10/30/1997 COLONOSCOPY & POLYPECTOMY ~2007 2 polyps COLONOSCOPY & POLYPECTOMY ~2001 7 polyps COLONOSCOPY & POLYPECTOMY 11/30/2011 COLONOSCOPY FLX DX W/COLLJ SPEC WHEN PFRMD 11/29/12 Colonoscopy repeat 3 years COLONOSCOPY FLX DX W/COLLJ SPEC WHEN PFRMD 01/28/16 Colonoscopy with mac CYSTOSCOPY 09/21/12 EGD 10/17/2011 Dr Negrete in [place] ESOPHAGOGASTRODUODENOSCOPY TRANSORAL DIAGNOSTIC 05/16/2014 EGD ESOPHAGOGASTRODUODENOSCOPY TRANSORAL DIAGNOSTIC 09/12/14 EGD ESOPHAGOGASTRODUODENOSCOPY TRANSORAL DIAGNOSTIC 01/06/2017 EGD ESOPHAGOGASTRODUODENOSCOPY TRANSORAL DIAGNOSTIC 07/21/2020 EGD REMOVE CATARACT, INSERT LENS, INTRACAPSUL Bilateral 2008 Family History FAMILY HISTORY Problem Relation Age of Onset Hypertension Mother Heart Mother Lipids Mother HIGH CHOLESTEROL Heart Father SD Ischemic Heart Disease Father STROKE other (diabetic) Father Diabetes Sister Diabetes Sister Breast Cancer Sister Patient Allergies ALLERGIES Allergen Reactions Bactrim [Sulfametho* Itching Codeine Mental Status Change Garlic Oil Other: See Comments Lexapro [Escitalopr* Other: See Comments rapid heart rate Oxybutynin Other: See Comments suggerst by [employer] to stop since it can add to memory issues. Tramadol Other: See Comments Heart racing, SOB Current Medications Current Outpatient Medications on File Prior to Visit Medication Sig HYDROcodone-acetaminophen (NORCO) 5-325 mg per tablet Take 1 tablet by mouth twice daily as needed for up to 30 days. spironolactone (ALDACTONE) 25 mg tablet Take 1 tablet by mouth once daily. pantoprazole DR (PROTONIX) 40 mg tablet Take 1 tablet by mouth twice daily. sertraline (ZOLOFT) 50 mg tablet Take 1 tablet by mouth once daily. pioglitazone (ACTOS) 15 mg tablet Take 1 tablet by mouth once daily. furosemide (LASIX) 20 mg tablet Take 1 tablet by mouth twice daily. atorvastatin (LIPITOR) 40 mg tablet Take 1 tablet by mouth once daily. isosorbide mononitrate ER (IMDUR) 30 mg 24 hr tablet Take 1 tablet by mouth once daily. losartan (COZAAR) 50 mg tablet Take 1 tablet by mouth once daily. metFORMIN ER (GLUCOPHAGE XR) 500 mg 24 hr tablet Take 2 tablets by mouth daily with dinner. hydrOXYzine HCl (ATARAX) 10 mg tablet Take one tab 30-45 min prior to bed. melatonin 10 mg tab Take 1 tablet by mouth daily at bedtime. donepezil (ARICEPT) 10 mg tablet Take 1 tablet by mouth daily at bedtime. cephALEXin (KEFLEX) 250 mg capsule Take 1 capsule by mouth once daily. albuterol (PROVENTIL) 2.5 mg /3 mL (0.083 %) nebulizer solution Use 3 mL via nebulizer every 6 hours as needed for wheezing/shortness of breath. Use over 5-15minutes. MEDICAL SUPPLY One motorized scooter appropriate for weight (293 lbs). Patient needs this medically due to the chronic pain she has related to arthritis in multiple joints such as her back and knees which limits her mobility, quality of life and increase risck for falls. Dx:M12.9, M25.561, M50.30, M51.36, M54.9, R29.6 flash glucose scanning reader (FREESTYLE ADELINA 2 READER) Last A1c 9.8, Dx 11.22 no insulin. Is to check insulin fasting and 2 hrs after lunch and dinner. (Patient taking differently: Last A1c 9.8, Dx 11.22 no insulin. Is to check insulin fasting and 2 hrs after lunch and dinner.) flash glucose sensor (FREESTYLE ADELINA 2 SENSOR) kit Apply new sensor every two weeks. Last A1c 9.8, Dx 11.22 no insulin. Is to check insulin fasting and 2 hrs after lunch and dinner. (Patient taking differently: Apply new sensor every two weeks. Last A1c 9.8, Dx 11.22 no insulin. Is to check insulin fasting and 2 hrs after lunch and dinner.) diclofenac (VOLTAREN ARTHRITIS PAIN) 1 % topical gel Apply 4 g to affected area four times daily. blood sugar diagnostic (BLOOD GLUCOSE TEST) test strip Test blood sugar(s) 2 times daily: fasting and two hrs after a large meal . Dx: Type 2 DM - Uncontrolled E11.65 Insulin: No (Patient taking differently: Test blood sugar(s) 2 times daily: fasting and two hrs after a large meal . Dx: Type 2 DM - Uncontrolled E11.65 Insulin: No) Lancets lancets Test blood sugar(s) 2 times daily: fasting and two hrs after a large meal . Dx: Type 2 DM - Uncontrolled E11.65 Insulin: No albuterol HFA (PROAIR HFA) 90 mcg/actuation inhaler Inhale 2 Puffs as instructed every 4 hours as needed for wheezing/shortness of breath (With Spacer). Lancing Device with Lancets (ACCU-CHEK SOFT DEV LANCETS) 1 Device once daily. Lancet device to use with Accuchek lancets DX E11.22 Insulin No (Patient taking differently: 1 Device once daily. Lancet device to use with Accuchek lancets DX E11.22 Insulin No) Walker (ULTRA-LIGHT ROLLATOR) [facility] One Rolator with seat. Dx: J44.9, M54.9, M12.9 and R29.6 Calcium Citrate-Vitamin D3 (CITRACAL+D) 315 mg- 250 unit tab Take by mouth. Nebulizer NEBULIZER FOR HOME USE. DX: J44.9 (Patient taking differently: NEBULIZER FOR HOME USE. DX: J44.9) aspirin 81 mg chewable tablet Take 81 mg by mouth once daily. OMEGA-3 FATTY ACIDS (FISH OIL CONCENTRATE ORAL) Take 1 tablet by mouth once daily. Current Facility-Administered Medications on File Prior to Visit Medication perflutren lipid microspheres 1.3 mL in NaCl (PF) 0.9% 10 mL injection (DEFINITY) sodium chloride 0.9 % (flush) 10 mL (BD POSIFLUSH) Social History Social History Tobacco Use Smoking status: Former Packs/day: 3.00 Years: 35.00 Additional pack years: 0.00 Total pack years: 105.00 Types: Cigarettes Quit date: 09/22/1997 Years since quittin.7 Smokeless tobacco: Never Vaping Use Vaping Use: Never used Substance Use Topics Alcohol use: No Drug use: No Review of Symptoms REVIEW OF SYSTEMS See HPI EXAM: BP 136/84 Pulse 80 Resp 14 Wt (!) 137.4 kg (303 lb) BMI 47.46 kg/m Last 8 Encounter Wt Readings: Date: Wt: 06/21/2023 137.4 kg (303 lb) 03/18/2023 127.5 kg (281 lb) 02/21/2023 129.7 kg (286 lb) 01/25/2023 130 kg (286 lb 9.6 oz) 01/06/2023 127 kg (280 lb) 12/28/2022 127.1 kg (280 lb 3.2 oz) 12/23/2022 129.3 kg (285 lb) 11/04/2022 126.6 kg (279 lb) General Appearance: Well appearing, alert, in no acute distress, well-hydrated, well nourished.. Lungs: Lungs clear to auscultation. No wheezing, rhonchi, rales.. Heart: RRR without murmur, gallop, or rubs. No ectopy. Health Maintenance List DTAP,TDAP,TD(1 - Tdap) Never done SHINGRIX VACCINE(2 of 3) due on 05/22/2014 DILATED RETINAL EXAM due on 12/09/2021 COVID-19 VACCINE(4 - Moderna series) due on 12/19/2021 DIABETIC FOOT EXAM due on 01/05/2022 ADVANCE DIRECTIVE DISCUSSION Never done HBA1C due on 05/05/2023 URINE ALBUMIN:CREATININE RATIO due on 05/07/2023 INFLUENZA(1) due on 07/08/2023 LDL CHOLESTEROL due on 11/04/2023 BONE DENSITY Completed SPIROMETRY Completed PNEUMOCOCCAL: 65+ Completed COLONOSCOPY Discontinued Data reviewed ASSESSMENT/PLAN: 1. Chronic pain of both knees - ICD9: 719.46, 338.29, ICD10: M25.561, M25.562, G89.29 Will adjust Tx to - HYDROCODONE 5 MG-ACETAMINOPHEN 325 MG TABLET TID prn 2. Neuropathic pain - ICD9: 729.2, ICD10: M79.2 - as above - HYDROCODONE 5 MG-ACETAMINOPHEN 325 MG TABLET 3. Chronic pain syndrome - ICD9: 338.4, ICD10: G89.4 - as above - HYDROCODONE 5 MG-ACETAMINOPHEN 325 MG TABLET - as above - substance agreement updated. - TOX SCREEN ROUT UR - PAIN PANEL, UR QUANT - PAIN PANEL, UR QUANT - SPECIMEN VALIDITY, URINE 4. Lumbar spondylosis - ICD9: 721.3, ICD10: M47.816 - as above - HYDROCODONE 5 MG-ACETAMINOPHEN 325 MG TABLET 5. DDD (degenerative disc disease), cervical - ICD9: 722.4, ICD10: M50.30 - as above - HYDROCODONE 5 MG-ACETAMINOPHEN 325 MG TABLET 6. Arthritis, multiple joint involvement - ICD9: 716.99, ICD10: M12.9 As above - HYDROCODONE 5 MG-ACETAMINOPHEN 325 MG TABLET 7. Dysuria - ICD9: 788.1, ICD10: R30.0 chronic - PHENAZOPYRIDINE 100 MG TABLET: with GFR 50-80 ok to take BID, If less then 50 should be stopped 8. Medication management - ICD9: V58.69, ICD10: Z79.899 Check - TOX SCREEN ROUT UR - PAIN PANEL, UR QUANT - PAIN PANEL, UR QUANT - SPECIMEN VALIDITY, URINE Requested Prescriptions Signed Prescriptions Disp Refills HYDROcodone-acetaminophen (NORCO) 5-325 mg per tablet 90 tablet 0 Sig: Take 1 tablet by mouth every 8 hours as needed. donepezil (ARICEPT) 5 mg tablet Sig: Take 1 tablet by mouth daily at bedtime. Per Geriatrics, [facility] phenazopyridine (PYRIDIUM) 100 mg tablet 120 tablet 5 Sig: Take 2 tablets by mouth twice daily. F/u routine 2 months extensive 40 min I spent a total of 41 minutes on the date of the service which included preparing to see the patient, [id number] patient care, completing clinical documentation, performing a medically appropriate examination, counseling and educating the patient/family/caregiver and ordering medications, tests, or procedures. Leno Briggs MD documented in this encounter [facility] 06-20-2023 Miscellaneous Notes Left message for pt's daughter that Stephani did review pt's chart and advised that pt does need to see Dr Briggs instead of her tomorrow. Advised pt is scheduled at 2:20 tomorrow 06/[address] Briggs. Daughter had called earlier to reschedule appointment that pt had canceled. Grecia Riley LPN documented in this encounter [facility] 05-30-2023 History of Present illness Narrative COLORECTAL SURGERY OFFICE VISIT PATIENT NAME: Robbin Singh : 1940 TODAY'S DATE: 05/30/2023 Chief Complaint Patient presents with Results [facility] # [phone](Mariela, daughter)Discuss results of colonoscopy done 05/25/23 Patient was seen today via Telehealth by agreement and consent. I used the following Telehealth technology: Audio capability only. Total length of call 30 minutes. The patient was offered and advised video for a more comprehensive evaluation, but the patient declined or was unable to use video. Patient location: Patient Location: Home. This patient encounter is appropriate and reasonable under the circumstances: transportation issues . The patient has been advised of the potential risks and limitations of this mode of treatment (including but not limited to the absence of in-person examination) and has agreed to be treated in a remote fashion in spite of them. Any and all of the patient's/patient's family's questions on this issue have been answered and I have made no promises or guarantees to the patient. The patient has also been advised to contact this office for worsening conditions or problems, and seek emergency medical treatment and/or call 911 if the patient deems either necessary. The patient stated that they are currently in the [facility]. If the patient is a minor, permission has been obtained by the parent or guardian for the patient to receive medical care at this visit. SUBJECTIVE: Robbin Singh is a 82 y.o. 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 Patient has dementia and is daughter is rn progressive care. She noticed feces inside her vagina. She notices stool on toilet paper after wiping. She has a history of mixed incontinence and wears Depends. She started having stool with wiping after urination months ago She denies fecaluria, pneumaturia She has had a laparoscopic cholecystectomy about 25 years ago. She denies abdominal pain. She has a history of colon polyps, but has not had a colonoscopy since 2016, when she had multiple polyps. Saw a surgeon through [facility] who recommended colonoscopy, however this was cancelled Has a bowel movement every 2-3 days. She does have some incontinence but thinks this is mostly incontinence of urine. No family hx of colorectal cancer No anticoagulants Review of Systems as documented Past Medical History: Diagnosis Date Alzheimer's disease (HCC) diagnosed 05/2023 COPD (chronic obstructive pulmonary disease) (HCC) Depression Insomnia Pulmonary hypertension (HCC) Past Surgical History: Procedure Laterality Date COLONOSCOPY W/ BIOPSIES AND POLYPECTOMY N/A 05/25/2023 Performed by Samantha Nava MD at [address] ENDOSCOPY Current Outpatient Medications on File Prior to Visit Medication Sig Dispense Refill acetaminophen (Tylenol) 325 MG tablet Take by mouth. albuterol (2.5 MG/3ML) 0.083% nebulizer solution Take 3 mL by nebulization every 6 hours as needed for wheezing or shortness of breath. aspirin 81 MG chewable tablet Chew 81 mg in the morning. atorvastatin (Lipitor) 40 MG tablet Take 40 mg by mouth daily. cephalexin (Keflex) 250 MG capsule Take 250 mg by mouth daily. cholecalciferol (Vitamin D-3) 25 MCG (1000 UT) capsule Take by mouth. donepezil (Aricept) 10 MG tablet Take 5 mg by mouth daily. furosemide (Lasix) 20 MG tablet Take 20 mg by mouth 2 times daily. guaiFENesin (Mucinex) 600 MG 12 hr tablet Take 600 mg by mouth daily. HYDROcodone-acetaminophen ([place]) 5-325 MG tablet Take 1 tablet by mouth every 12 hours as needed. isosorbide mononitrate ER (Imdur) 30 MG 24 hr tablet Take 30 mg by mouth daily. Do not crush or chew. losartan (Cozaar) 50 MG tablet Take 50 mg by mouth daily. Melatonin 3 MG capsule Take by mouth Nightly. metFORMIN XR (Glucophage-XR) 500 MG 24 hr tablet Take 1,000 mg by mouth with evening meal. Do not crush, chew, or split. mirtazapine (Remeron) 7.5 MG tablet Take 1 tablet (7.5 mg) by mouth Nightly. 30 tablet 1 Multiple Vitamins-Minerals (multivitamin with minerals) tablet Take 1 tablet by mouth daily. [place]-3 Fatty Acids (FISH OIL OMEGA-3 PO) Take by mouth daily. pantoprazole (ProtoNix) 40 MG EC tablet Take 40 mg by mouth in the morning and 40 mg in the evening. pioglitazone (Actos) 15 MG tablet Take 15 mg by mouth daily. sertraline (Zoloft) 50 MG tablet Take 50 mg by mouth daily. spironolactone (Aldactone) 25 MG tablet Take 25 mg by mouth in the morning. No current facility-administered medications on file prior to visit. Social History Socioeconomic History Marital status: Spouse name: Not on file Number of children: 2 Years of education: Not on file Highest education level: Not on file Occupational History Not on file Tobacco Use Smoking status: Former Packs/day: 2.00 Types: Cigarettes Quit date: 1996 Years since quittin.5 Smokeless tobacco: Not on file Vaping Use Vaping Use: Never used Substance and Sexual Activity Alcohol use: Never Drug use: Never Sexual activity: Not Currently Partners: Male Other Topics Concern Not on file Social History Narrative Not on file Social Determinants of Health Financial Resource Strain: Not on file Food Insecurity: Not on file Transportation Needs: Not on file Physical Activity: Not on file Stress: Not on file Social Connections: Not on file Intimate Partner Violence: Not At Risk (05/25/2023) Humiliation, Afraid, Rape, and Kick questionnaire Fear of Current or Ex-Partner: No Emotionally Abused: No Physically Abused: No Sexually Abused: No Housing Stability: Not on file Family History Problem Relation Name Age of Onset Heart failure Mother Arthritis Mother Anxiety disorder Mother Hypertension Mother Dementia Mother Stroke Father Diabetes Father Lung disease Father Kidney cancer Sister Hypertension Sister Diabetes Sister Allergies: Allergies Allergen Reactions Iodinated Contrast Media Other Trazodone Other Codeine Dizziness and Unknown Tramadol Dermatitis, Dizziness and Other Heart racing Heart racing, SOB OBJECTIVE: There were no vitals taken for this visit. Physical Examination GENERAL: NAD, alert, oriented HEENT: Pupils equal, normal conjunctivae without scleral icterus PULMONARY: Normal respiratory effort, chest non-tender CARDIO: no edema ABDOMEN: soft, non-distended, non-tender, no guarding, no rebound, no obvious hepatosplenomegaly PSYCHIATRIC: appropriate mood and judgement RECTUM: deferred Exam chaperoned by female loan assistant. IMAGING: Per chart rveiew She underwent a CT scan at [facility] on 12/31/2022 with findings of mid sigmoid diverticulitis with probable fistula to the adjacent urinary bladder. Associated colonic wall thickening and adjacent stranding noted. There is under distension of the urinary bladder with significant wall edema and adjacent inflammatory change. ASSESSMENT/PLAN: Diagnosis Plan 1. Colovaginal fistula 2. Colovesical fistula 3. History of diverticulitis Long discussion held with Robbin and and daughters about options going forward On discussing surgery they are against having a stoma. I discussed with them that sigmoid resection would be high risk in her, and while it wouldn't necessarily mean she'd need a stoma, that I can't promise it might not be needed based on operative findings or post operative course. We discussed outcome of non-operative management- increasingly frequent urinary infections, possibly sepsis, that could be managed with antibiotics but will ultimately become resistent and more life-threatening. She and her daughters wish to think about this more, as for the most part Robbin is well Patient and daughters are requesting prescriptions for AZO and lidocaine I told them I do not prescribe these but will forward to PCP 45 mins spent on this encounter No follow-ups on file. The patient was given the opportunity to ask questions and all questions were answered to the best of my ability. The patient agrees with the above noted plan. The patient was seen and examined independently and relevant data reviewed by myself. A full chart review including labs, imaging, endoscopic reports, pathology, and requesting/reviewing previous records was performed when available. Samantha Nava MD [facility] Colorectal Surgery [address] [place] [address], [facility] [address] [address] p [phone] f [phone] documented in this encounter [facility] 05-25-2023 Note Patient: Robbin niño Procedure Summary Date: 05/25/23 Room / Location: [address] ENDO SEC 1 / [facility] Gastroenterology Anesthesia Start: 1042 Anesthesia Stop: 1130 Procedure: COLONOSCOPY Diagnosis: Colovaginal fistula (Colovaginal fistula [N82.4]) Providers: Samantha Nava MD Responsible Provider: Royce Baez MD Anesthesia Type: MAC ASA Status: 3 Anesthesia Type: MAC Vitals Value Taken Time BP 154/79 05/25/23 1135 Temp *97 05/25/23 1144 Pulse 81 05/25/23 1135 Resp 18 05/25/23 1135 SpO2 94 % 05/25/23 1135 Anesthesia Post Evaluation Patient location during evaluation: PACU Patient participation: complete - patient participated Level of consciousness: awake and alert Pain management: satisfactory to patient Airway patency: patent Dental Injury: no Cardiovascular status: acceptable, blood pressure returned to baseline and hemodynamically stable Respiratory status: acceptable and spontaneous ventilation Hydration status: euvolemic Nausea/Vomiting: controlled No notable events documented. Patient can be discharged once all PACU criteria has been met. [facility] 05-25-2023 Note Patient: Robbin niño Procedure Summary Date: 05/25/23 Room / Location: [facility] Gastroenterology Anesthesia Start: 1042 Anesthesia Stop: 1130 Procedure: COLONOSCOPY Diagnosis: Colovaginal fistula (Colovaginal fistula [N82.4]) Providers: Samantha Nava MD Responsible Provider: Royce Baez MD Anesthesia Type: MAC ASA Status: 3 Anesthesia Type: MAC Vitals Value Taken Time BP 154/79 05/25/23 1135 Temp 97 05/25/23 1143 Pulse 81 05/25/23 1135 Resp 18 05/25/23 1135 SpO2 94 % 05/25/23 1135 Anesthesia Post Evaluation Patient location during evaluation: PACU Patient participation: complete - patient participated Level of consciousness: awake and alert Pain management: satisfactory to patient Multimodal analgesia pain management approach Airway patency: patent Two or more strategies used to mitigate risk of obstructive sleep apnea Cardiovascular status: acceptable and hemodynamically stable Respiratory status: acceptable Hydration status: acceptable No notable events documented. MIPS #[id number] PONV Patient did not receive an inhalational anesthetic ([id number]) MIPS # 424 Perioperative Temperature Management Anesthesia time was less than 60 minutes (4256F) MIPS #477 Multimodal Pain Management Not emergent case Patient was not administered multimodal pain management (G2149) Patient reports no pain in PACU (G2149) MIPS #404 Anesthesiology Smoking Abstinence The patient is not a current smoker (e.g. cigarette, cigar, pipe, e-cigarette/vaping/marijuana) If no stop here (XX404) I completed my handoff to the receiving clinician during which we: 1. Identified the patient 2. Identified the responsible provider 3. Reviewed the pertinent medical history 4. Discussed the surgical course 5. Reviewed intra-op anesthesia management and issues during anesthesia 6. Set expectations for post-procedure period 7. Allowed opportunity for questions and acknowledgement of understanding. [facility] 05-25-2023 Note Endoscopy Center- [facility] Patient Name: Robbin Singh Procedure Date: 05/25/2023 10:43 AM Gender: Female Date of : 1940 Age: 82 Admit Type: Outpatient Note Status: Finalized Endoscopist: Samantha Nava MD, [id number] Procedure: Colonoscopy Indications: Follow-up of diverticulitis, Colovaginal fistula Findings: A 7 mm polyp was found in the ascending colon. The polyp was sessile. The polyp was removed with a cold snare. Resection and retrieval were complete. Scattered small and large-mouthed diverticula were found in the sigmoid colon. The exam was otherwise without abnormality. Impression: - One 7 mm polyp in the ascending colon, removed with a cold snare. Resected and retrieved. - Diverticulosis in the sigmoid colon. - The examination was otherwise normal. Recommendation: - Patient has a contact number available for emergencies. The signs and symptoms of potential delayed complications were discussed with the patient. Return to normal activities tomorrow. Written discharge instructions were provided to the patient. - Resume previous diet. - Continue present medications. - Repeat colonoscopy in 5 years for surveillance. Referring MD: Samnatha Nava MD, Samantha Nava Medicines: Monitored Anesthesia Care Procedure: Pre-Anesthesia Assessment: - Prior to the procedure, a History and Physical was performed, and patient medications and allergies were reviewed. The patient's tolerance of previous anesthesia was also reviewed. The risks and benefits of the procedure and the sedation options and risks were discussed with the patient. All questions were answered, and informed consent was obtained. Prior Anticoagulants: The patient has taken no anticoagulant or antiplatelet agents. ASA Grade Assessment: III - A patient with severe systemic disease. After reviewing the risks and benefits, the patient was deemed in satisfactory condition to undergo the procedure. - The anesthesia plan was to use monitored anesthesia care (MAC). After I obtained informed consent, the scope was passed under direct vision. Throughout the procedure, the patient's blood pressure, pulse, and oxygen saturations were monitored continuously. The Colonoscope was introduced through the anus and advanced to the cecum, identified by the ileocecal valve. The cecum could not be intubated due to not be able to apply abdominal pressure as patient started to cough and gag and there was a concern regarding possible aspiration. The colonoscopy was performed without difficulty. The patient tolerated the procedure well. The quality of the bowel preparation was good. The ileocecal valve and the rectum were photographed. Complications: No immediate complications. Procedure Code(s): --- Professional --- 43223, Colonoscopy, flexible; with removal of tumor(s), polyp(s), or other lesion(s) by snare technique --- Technical --- 98741, Colonoscopy, flexible; with removal of tumor(s), polyp(s), or other lesion(s) by snare technique CPT copyright 2021 [employer]. All rights reserved. The codes documented in this report are preliminary and upon portfolio management marketing review may be revised to meet current compliance requirements. Attending Participation: I personally performed the entire procedure. Samantha Nava MD 05/25/2023 11:25:44 AM This report has been signed electronically. Number of Addenda: 0 Note Initiated On: 05/25/2023 10:43 AM [facility] 05-25-2023 Note Formatting of this n ote might be different from the original. [facility] Robbin [facility] Procedure Date: 05/25/2023 10:43 AM Gender: Female Date of : 1940 Age: 82 Admit Type: Outpatient Note Status: Finalized Endoscopist: Samantha Nava MD, [id number] Procedure: Colonoscopy Indications: Follow-up of diverticulitis, Colovaginal fistula Findings: A 7 mm polyp was found in the ascending colon. The polyp was sessile. The polyp was removed with a cold snare. Resection and retrieval were complete. Scattered small and large-mouthed diverticula were found in the sigmoid colon. The exam was otherwise without abnormality. Impression: - One 7 mm polyp in the ascending colon, removed with a cold snare. Resected and retrieved. - Diverticulosis in the sigmoid colon. - The examination was otherwise normal. Recommendation: - Patient has a contact number available for emergencies. The signs and symptoms of potential delayed complications were discussed with the patient. Return to normal activities tomorrow. Written discharge instructions were provided to the patient. - Resume previous diet. - Continue present medications. - Repeat colonoscopy in 5 years for surveillance. Referring MD: Samantha Nava MD, Samantha Nava Medicines: Monitored Anesthesia Care Procedure: Pre-Anesthesia Assessment: - Prior to the procedure, a History and Physical was performed, and patient medications and allergies were reviewed. The patient's tolerance of previous anesthesia was also reviewed. The risks and benefits of the procedure and the sedation options and risks were discussed with the patient. All questions were answered, and informed consent was obtained. Prior Anticoagulants: The patient has taken no anticoagulant or antiplatelet agents. ASA Grade Assessment: III - A patient with severe systemic disease. After reviewing the risks and benefits, the patient was deemed in satisfactory condition to undergo the procedure. - The anesthesia plan was to use monitored anesthesia care (MAC). After I obtained informed consent, the scope was passed under direct vision. Throughout the procedure, the patient's blood pressure, pulse, and oxygen saturations were monitored continuously. The Colonoscope was introduced through the anus and advanced to the cecum, identified by the ileocecal valve. The cecum could not be intubated due to not be able to apply abdominal pressure as patient started to cough and gag and there was a concern regarding possible aspiration. The colonoscopy was performed without difficulty. The patient tolerated the procedure well. The quality of the bowel preparation was good. The ileocecal valve and the rectum were photographed. Complications: No immediate complications. Procedure Code(s): --- Professional --- 45775, Colonoscopy, flexible; with removal of tumor(s), polyp(s), or other lesion(s) by snare technique --- Technical --- 99828, Colonoscopy, flexible; with removal of tumor(s), polyp(s), or other lesion(s) by snare technique CPT copyright 2021 [employer]. All rights reserved. The codes documented in this report are preliminary and upon portfolio management marketing review may be revised to meet current compliance requirements. Attending Participation: I personally performed the entire procedure. Samantha Nava MD 05/25/2023 11:25:44 AM This report has been signed electronically. Number of Addenda: 0 Note Initiated On: 05/25/2023 10:43 AM [facility] 05-25-2023 Note Formatting of this n ote might be different from the original. [facility]: Robbin [facility] Procedure Date: 05/25/2023 10:43 AM Gender: Female Date of : 1940 Age: 82 Admit Type: Outpatient Note Status: Finalized Endoscopist: Samantha Nava MD, [id number] Procedure: Colonoscopy Indications: Follow-up of diverticulitis, Colovaginal fistula Findings: A 7 mm polyp was found in the ascending colon. The polyp was sessile. The polyp was removed with a cold snare. Resection and retrieval were complete. Scattered small and large-mouthed diverticula were found in the sigmoid colon. The exam was otherwise without abnormality. Impression: - One 7 mm polyp in the ascending colon, removed with a cold snare. Resected and retrieved. - Diverticulosis in the sigmoid colon. - The examination was otherwise normal. Recommendation: - Patient has a contact number available for emergencies. The signs and symptoms of potential delayed complications were discussed with the patient. Return to normal activities tomorrow. Written discharge instructions were provided to the patient. - Resume previous diet. - Continue present medications. - Repeat colonoscopy in 5 years for surveillance. Referring MD: Samantha Nava MD, Samantha Nava Medicines: Monitored Anesthesia Care Procedure: Pre-Anesthesia Assessment: - Prior to the procedure, a History and Physical was performed, and patient medications and allergies were reviewed. The patient's tolerance of previous anesthesia was also reviewed. The risks and benefits of the procedure and the sedation options and risks were discussed with the patient. All questions were answered, and informed consent was obtained. Prior Anticoagulants: The patient has taken no anticoagulant or antiplatelet agents. ASA Grade Assessment: III - A patient with severe systemic disease. After reviewing the risks and benefits, the patient was deemed in satisfactory condition to undergo the procedure. - The anesthesia plan was to use monitored anesthesia care (MAC). After I obtained informed consent, the scope was passed under direct vision. Throughout the procedure, the patient's blood pressure, pulse, and oxygen saturations were monitored continuously. The Colonoscope was introduced through the anus and advanced to the cecum, identified by the ileocecal valve. The cecum could not be intubated due to not be able to apply abdominal pressure as patient started to cough and gag and there was a concern regarding possible aspiration. The colonoscopy was performed without difficulty. The patient tolerated the procedure well. The quality of the bowel preparation was good. The ileocecal valve and the rectum were photographed. Complications: No immediate complications. Procedure Code(s): --- Professional --- 28569, Colonoscopy, flexible; with removal of tumor(s), polyp(s), or other lesion(s) by snare technique --- Technical --- 49460, Colonoscopy, flexible; with removal of tumor(s), polyp(s), or other lesion(s) by snare technique CPT copyright 2021 [employer]. All rights reserved. The codes documented in this report are preliminary and upon portfolio management marketing review may be revised to meet current compliance requirements. Attending Participation: I personally performed the entire procedure. Samantha Nava MD 05/25/2023 11:25:44 AM This report has been signed electronically. Number of Addenda: 0 Note Initiated On: 05/25/2023 10:43 AM [facility] 05-25-2023 Miscellaneous Notes [facility]: Robbin [facility] Procedure Date: 05/25/2023 10:43 AM Gender: Female Date of : 1940 Age: 82 Admit Type: Outpatient Note Status: Finalized Endoscopist: Samantha Nava MD, [id number] Procedure: Colonoscopy Indications: Follow-up of diverticulitis, Colovaginal fistula Findings: A 7 mm polyp was found in the ascending colon. The polyp was sessile. The polyp was removed with a cold snare. Resection and retrieval were complete. Scattered small and large-mouthed diverticula were found in the sigmoid colon. The exam was otherwise without abnormality. Impression: - One 7 mm polyp in the ascending colon, removed with a cold snare. Resected and retrieved. - Diverticulosis in the sigmoid colon. - The examination was otherwise normal. Recommendation: - Patient has a contact number available for emergencies. The signs and symptoms of potential delayed complications were discussed with the patient. Return to normal activities tomorrow. Written discharge instructions were provided to the patient. - Resume previous diet. - Continue present medications. - Repeat colonoscopy in 5 years for surveillance. Referring MD: Samantha Nava MD, Samantha Nava Medicines: Monitored Anesthesia Care Procedure: Pre-Anesthesia Assessment: - Prior to the procedure, a History and Physical was performed, and patient medications and allergies were reviewed. The patient's tolerance of previous anesthesia was also reviewed. The risks and benefits of the procedure and the sedation options and risks were discussed with the patient. All questions were answered, and informed consent was obtained. Prior Anticoagulants: The patient has taken no anticoagulant or antiplatelet agents. ASA Grade Assessment: III - A patient with severe systemic disease. After reviewing the risks and benefits, the patient was deemed in satisfactory condition to undergo the procedure. - The anesthesia plan was to use monitored anesthesia care (MAC). After I obtained informed consent, the scope was passed under direct vision. Throughout the procedure, the patient's blood pressure, pulse, and oxygen saturations were monitored continuously. The Colonoscope was introduced through the anus and advanced to the cecum, identified by the ileocecal valve. The cecum could not be intubated due to not be able to apply abdominal pressure as patient started to cough and gag and there was a concern regarding possible aspiration. The colonoscopy was performed without difficulty. The patient tolerated the procedure well. The quality of the bowel preparation was good. The ileocecal valve and the rectum were photographed. Complications: No immediate complications. Procedure Code(s): --- Professional --- 77545, Colonoscopy, flexible; with removal of tumor(s), polyp(s), or other lesion(s) by snare technique --- Technical --- 61743, Colonoscopy, flexible; with removal of tumor(s), polyp(s), or other lesion(s) by snare technique CPT copyright 2021 [employer]. All rights reserved. The codes documented in this report are preliminary and upon portfolio management marketing review may be revised to meet current compliance requirements. Attending Participation: I personally performed the entire procedure. Samantha Nava MD 05/25/2023 11:25:44 AM This report has been signed electronically. Number of Addenda: 0 Note Initiated On: 05/25/2023 10:43 AM documented in this encounter [facility] 05-25-2023 Note Endoscopy History an d Physical PATIENT NAME: Robbin Singh DATE OF : 1940 ADMISSION DATE: 05/25/2023 7:59 AM TODAY'S DATE: 05/25/2023 HISTORY OF PRESENT ILLNESS: The patient is a 82 y.o. female who presents for colonoscopy, colovaginal fistula Thoroughly reviewed the patient's medical history, family history, social history and review of systems with the patient today in the office. Please see medical record for pertinent positives. Past Medical History: Past Medical History: Diagnosis Date COPD (chronic obstructive pulmonary disease) (HCC) Depression Pulmonary hypertension (HCC) Past Surgical History: History reviewed. No pertinent surgical history. Current Medications: Current Facility-Administered Medications: sodium chloride 0.9 % infusion, 5-250 mL/hr, IntraVENous, PRN, Samantha Nava MD sodium chloride 0.9 % infusion, 5-250 mL/hr, IntraVENous, PRN, Samantha Nava MD sodium chloride 0.9% (NS) flush 10 mL, 10 mL, IntraVENous, 2 times per day, Samantha Nava MD sodium chloride 0.9% (NS) flush 10 mL, 10 mL, IntraVENous, PRN, Samantha Nava MD sodium chloride 0.9% (NS) flush 10 mL, 10 mL, IntraVENous, 2 times per day, Samantha Nava MD sodium chloride 0.9% (NS) flush 10 mL, 10 mL, IntraVENous, PRN, Samantha Nava MD Medications Prior to Admission Medication Sig Dispense Refill Last Dose acetaminophen (Tylenol) 325 MG tablet Take by mouth. Past Week albuterol (2.5 MG/3ML) 0.083% nebulizer solution Take 3 mL by nebulization every 6 hours as needed for wheezing or shortness of breath. Past Week aspirin 81 MG chewable tablet Chew 81 mg in the morning. 05/25/2023 atorvastatin (Lipitor) 40 MG tablet Take 40 mg by mouth daily. 05/24/2023 cephalexin (Keflex) 250 MG capsule Take 250 mg by mouth daily. Past Week cholecalciferol (Vitamin D-3) 25 MCG (1000 UT) capsule Take by mouth. Past Week donepezil (Aricept) 10 MG tablet Take 5 mg by mouth daily. Past Week furosemide (Lasix) 20 MG tablet Take 20 mg by mouth 2 times daily. 05/24/2023 guaiFENesin (Mucinex) 600 MG 12 hr tablet Take 600 mg by mouth daily. Past Week HYDROcodone-acetaminophen ([place]) 5-325 MG tablet Take 1 tablet by mouth every 12 hours as needed. Past Week isosorbide mononitrate ER (Imdur) 30 MG 24 hr tablet Take 30 mg by mouth daily. Do not crush or chew. 05/25/2023 losartan (Cozaar) 50 MG tablet Take 50 mg by mouth daily. 05/25/2023 Melatonin 3 MG capsule Take by mouth Nightly. 05/24/2023 metFORMIN XR (Glucophage-XR) 500 MG 24 hr tablet Take 1,000 mg by mouth with evening meal. Do not crush, chew, or split. 05/24/2023 mirtazapine (Remeron) 7.5 MG tablet Take 1 tablet (7.5 mg) by mouth Nightly. 30 tablet 1 05/24/2023 Multiple Vitamins-Minerals (multivitamin with minerals) tablet Take 1 tablet by mouth daily. 05/24/2023 [place]-3 Fatty Acids (FISH OIL OMEGA-3 PO) Take by mouth daily. 05/24/2023 pantoprazole (ProtoNix) 40 MG EC tablet Take 40 mg by mouth in the morning and 40 mg in the evening. 05/25/2023 pioglitazone (Actos) 15 MG tablet Take 15 mg by mouth daily. 05/25/2023 sertraline (Zoloft) 50 MG tablet Take 50 mg by mouth daily. 05/25/2023 spironolactone (Aldactone) 25 MG tablet Take 25 mg by mouth in the morning. 05/25/2023 Allergies: Iodinated contrast media, Trazodone, Codeine, and Tramadol Social History: Social History Socioeconomic History Marital status: Spouse name: Not on file Number of children: 2 Years of education: Not on file Highest education level: Not on file Occupational History Not on file Tobacco Use Smoking status: Former Packs/day: 2.00 Types: Cigarettes Quit date: 1996 Years since quittin.5 Smokeless tobacco: Not on file Vaping Use Vaping Use: Never used Substance and Sexual Activity Alcohol use: Never Drug use: Never Sexual activity: Not Currently Partners: Male Other Topics Concern Not on file Social History Narrative Not on file Social Determinants of Health Financial Resource Strain: Not on file Food Insecurity: Not on file Transportation Needs: Not on file Physical Activity: Not on file Stress: Not on file Social Connections: Not on file Intimate Partner Violence: Not At Risk (05/25/2023) Humiliation, Afraid, Rape, and Kick questionnaire Fear of Current or Ex-Partner: No Emotionally Abused: No Physically Abused: No Sexually Abused: No Housing Stability: Not on file Family History: Family History Problem Relation Name Age of Onset Heart failure Mother Arthritis Mother Anxiety disorder Mother Hypertension Mother Dementia Mother Stroke Father Diabetes Father Lung disease Father Kidney cancer Sister Hypertension Sister Diabetes Sister REVIEW OF SYSTEMS: CONSTITUTIONAL: Negative for fatigue, and unexpected weight change RESPIRATORY: Negative for cough, SOB, and wheezing CARDIOVASCULAR: Negative for chest pains and palpatations GASTROINTESTINAL: none HEMATOLOGIC/LYMPHATIC: N (more content not included)... [facility] 05-25-2023 Note Patient: Robbin niño Procedure Information Date/Time: 05/25/23 0900 Procedure: COLONOSCOPY Location: [address] ENDO SEC [facility] / [facility] Providers: Samantha Nava MD Relevant Problems Cardio (+) CHF (congestive heart failure) (CMS/HCC) (HCC) (+) Pulmonary hypertension (HCC) Endo (+) Diabetes mellitus, type 2 (HCC) Neuro/Psych (+) Recurrent major depressive disorder, in full remission (HCC) Past Medical History: Past Medical History: No date: COPD (chronic obstructive pulmonary disease) (HCC) No date: Depression No date: Pulmonary hypertension (HCC) Past Surgical History: No past surgical history on file. Social History: TOBACCO: reports that she quit smoking about 26 years ago. Her smoking use included cigarettes. She smoked an average of 2 packs per day. She does not have any smokeless tobacco history on file. ETOH: reports no history of alcohol use. Social History Substance and Sexual Activity Drug Use Never Family History: Family History Problem Relation Name Age of Onset ? Heart failure Mother ? Arthritis Mother ? Anxiety disorder Mother ? Hypertension Mother ? Dementia Mother ? Stroke Father ? Diabetes Father ? Lung disease Father ? Kidney cancer Sister ? Hypertension Sister ? Diabetes Sister Screening: Postmenopausal Clinical information reviewed: Tobacco Allergies Med Hx Surg Hx OB Status Fam Hx Soc Hx Physical Exam Airway Mallampati: III TM distance: >3 FB Neck ROM: full Mouth Open: normalendotracheal tube not in place Cardiovascular Dental (+) Upper Dentures, Lower Dentures Pulmonary Abdominal Anesthesia Plan patient is NPO appropriate Any family history or previous problems with anesthesia no ASA 3 MAC Any family history or previous problems with anesthesia no The patient is not a current smoker. Anesthetic plan and risks discussed with patient. TACO Screening Labs: Lab Results Component Value Date WBC 8.2 05/04/2023 HGB 10.4 (L) 05/04/2023 HCT 34.2 (L) 05/04/2023 MCV 92.7 05/04/2023 PLT 218 05/04/2023 No results found for: NA, K, CL, CO2, BUN, CREATININE, GLUCOSE, CALCIUM, PROT, BILIRUBINFL, ALKPHOS, AST, ALT, EGFR, GLOB No echocardiogram results found for the past 14 days No results found for this or any previous visit. [facility] 05-25-2023 History and physical note Endoscopy History and Physical PATIENT NAME: Robbin Singh DATE OF : 1940 ADMISSION DATE: 05/25/2023 7:59 AM TODAY'S DATE: 05/25/2023 HISTORY OF PRESENT ILLNESS: The patient is a 82 y.o. female who presents for colonoscopy, colovaginal fistula Thoroughly reviewed the patient's medical history, family history, social history and review of systems with the patient today in the office. Please see medical record for pertinent positives. Past Medical History: Past Medical History: Diagnosis Date COPD (chronic obstructive pulmonary disease) (HCC) Depression Pulmonary hypertension (HCC) Past Surgical History: History reviewed. No pertinent surgical history. Current Medications: Current Facility-Administered Medications: sodium chloride 0.9 % infusion, 5-250 mL/hr, IntraVENous, PRN, Samantha Nava MD sodium chloride 0.9 % infusion, 5-250 mL/hr, IntraVENous, PRN, Samantha Nava MD sodium chloride 0.9% (NS) flush 10 mL, 10 mL, IntraVENous, 2 times per day, Samantha Nava MD sodium chloride 0.9% (NS) flush 10 mL, 10 mL, IntraVENous, PRN, Samantha Nava MD sodium chloride 0.9% (NS) flush 10 mL, 10 mL, IntraVENous, 2 times per day, Samantha Nava MD sodium chloride 0.9% (NS) flush 10 mL, 10 mL, IntraVENous, PRN, Samantha Nava MD Medications Prior to Admission Medication Sig Dispense Refill Last Dose acetaminophen (Tylenol) 325 MG tablet Take by mouth. Past Week albuterol (2.5 MG/3ML) 0.083% nebulizer solution Take 3 mL by nebulization every 6 hours as needed for wheezing or shortness of breath. Past Week aspirin 81 MG chewable tablet Chew 81 mg in the morning. 05/25/2023 atorvastatin (Lipitor) 40 MG tablet Take 40 mg by mouth daily. 05/24/2023 cephalexin (Keflex) 250 MG capsule Take 250 mg by mouth daily. Past Week cholecalciferol (Vitamin D-3) 25 MCG (1000 UT) capsule Take by mouth. Past Week donepezil (Aricept) 10 MG tablet Take 5 mg by mouth daily. Past Week furosemide (Lasix) 20 MG tablet Take 20 mg by mouth 2 times daily. 05/24/2023 guaiFENesin (Mucinex) 600 MG 12 hr tablet Take 600 mg by mouth daily. Past Week HYDROcodone-acetaminophen ([place]) 5-325 MG tablet Take 1 tablet by mouth every 12 hours as needed. Past Week isosorbide mononitrate ER (Imdur) 30 MG 24 hr tablet Take 30 mg by mouth daily. Do not crush or chew. 05/25/2023 losartan (Cozaar) 50 MG tablet Take 50 mg by mouth daily. 05/25/2023 Melatonin 3 MG capsule Take by mouth Nightly. 05/24/2023 metFORMIN XR (Glucophage-XR) 500 MG 24 hr tablet Take 1,000 mg by mouth with evening meal. Do not crush, chew, or split. 05/24/2023 mirtazapine (Remeron) 7.5 MG tablet Take 1 tablet (7.5 mg) by mouth Nightly. 30 tablet 1 05/24/2023 Multiple Vitamins-Minerals (multivitamin with minerals) tablet Take 1 tablet by mouth daily. 05/24/2023 [place]-3 Fatty Acids (FISH OIL OMEGA-3 PO) Take by mouth daily. 05/24/2023 pantoprazole (ProtoNix) 40 MG EC tablet Take 40 mg by mouth in the morning and 40 mg in the evening. 05/25/2023 pioglitazone (Actos) 15 MG tablet Take 15 mg by mouth daily. 05/25/2023 sertraline (Zoloft) 50 MG tablet Take 50 mg by mouth daily. 05/25/2023 spironolactone (Aldactone) 25 MG tablet Take 25 mg by mouth in the morning. 05/25/2023 Allergies: Iodinated contrast media, Trazodone, Codeine, and Tramadol Social History: Social History Socioeconomic History Marital status: Spouse name: Not on file Number of children: 2 Years of education: Not on file Highest education level: Not on file Occupational History Not on file Tobacco Use Smoking status: Former Packs/day: 2.00 Types: Cigarettes Quit date: 1996 Years since quittin.5 Smokeless tobacco: Not on file Vaping Use Vaping Use: Never used Substance and Sexual Activity Alcohol use: Never Drug use: Never Sexual activity: Not Currently Partners: Male Other Topics Concern Not on file Social History Narrative Not on file Social Determinants of Health Financial Resource Strain: Not on file Food Insecurity: Not on file Transportation Needs: Not on file Physical Activity: Not on file Stress: Not on file Social Connections: Not on file Intimate Partner Violence: Not At Risk (05/25/2023) Humiliation, Afraid, Rape, and Kick questionnaire Fear of Current or Ex-Partner: No Emotionally Abused: No Physically Abused: No Sexually Abused: No Housing Stability: Not on file Family History: Family History Problem Relation Name Age of Onset Heart failure Mother Arthritis Mother Anxiety disorder Mother Hypertension Mother Dementia Mother Stroke Father Diabetes Father Lung disease Father Kidney cancer Sister Hypertension Sister Diabetes Sister REVIEW OF SYSTEMS: CONSTITUTIONAL: Negative for fatigue, and unexpected weight change RESPIRATORY: Negative for cough, SOB, and wheezing CARDIOVASCULAR: Negative for chest pains and palpatations GASTROINTESTINAL: none HEMATOLOGIC/LYMPHATIC: Negative for adenopathy. Does not bruise/bleed easily. NEUROLOGICAL: Negative for seizures and syncope * All other ROS reviewed see HPI for pertinent positives and negatives. PHYSICAL EXAM: VITALS: Vitals: 05/25/23 0822 BP: 124/56 Pulse: 88 Resp: 18 Temp: 36.2 C (97.2 F) SpO2: 92% GENERAL: Oriented to person, place, and time. Appears well nourished. No distress ENT: Normocepalic,atraumatic, without obvious abnormality NECK: supple, symmetrical, trachea midline LUNGS: Resp effort easy and unlabored CARDIOVASCULAR: Regular rate ABDOMEN: Soft, non-tender, no open wounds. MUSCULOSKELETAL: moves all extremities NEUROLOGIC: No focal neurologic deficits IMPRESSION/RECOMMENDATIONS: Colovaginal fistula colonsocopy Details of the procedure were discussed including the risks of bleeding, perforation, splenic injury, respiratory and anesthetic complications. Patient counseled on risks, benefits, and alternatives of treatment plan at length. Patient states an understanding and willingness to proceed with plan. [employer] Phone: 05-25-2023 History and physical note Endoscopy History and Physical PATIENT NAME: Robbin Singh DATE OF : 1940 ADMISSION DATE: 05/25/2023 7:59 AM TODAY'S DATE: 05/25/2023 HISTORY OF PRESENT ILLNESS: The patient is a 82 y.o. female who presents for colonoscopy, colovaginal fistula Thoroughly reviewed the patient's medical history, family history, social history and review of systems with the patient today in the office. Please see medical record for pertinent positives. Past Medical History: Past Medical History: Diagnosis Date COPD (chronic obstructive pulmonary disease) (HCC) Depression Pulmonary hypertension (HCC) Past Surgical History: History reviewed. No pertinent surgical history. Current Medications: Current Facility-Administered Medications: sodium chloride 0.9 % infusion, 5-250 mL/hr, IntraVENous, PRN, Samantha Nava MD sodium chloride 0.9 % infusion, 5-250 mL/hr, IntraVENous, PRN, Samantha Nava MD sodium chloride 0.9% (NS) flush 10 mL, 10 mL, IntraVENous, 2 times per day, Samantha Nava MD sodium chloride 0.9% (NS) flush 10 mL, 10 mL, IntraVENous, PRN, Samantha Nava MD sodium chloride 0.9% (NS) flush 10 mL, 10 mL, IntraVENous, 2 times per day, Samantha Nava MD sodium chloride 0.9% (NS) flush 10 mL, 10 mL, IntraVENous, PRN, Samantha Nava MD Medications Prior to Admission Medication Sig Dispense Refill Last Dose acetaminophen (Tylenol) 325 MG tablet Take by mouth. Past Week albuterol (2.5 MG/3ML) 0.083% nebulizer solution Take 3 mL by nebulization every 6 hours as needed for wheezing or shortness of breath. Past Week aspirin 81 MG chewable tablet Chew 81 mg in the morning. 05/25/2023 atorvastatin (Lipitor) 40 MG tablet Take 40 mg by mouth daily. 05/24/2023 cephalexin (Keflex) 250 MG capsule Take 250 mg by mouth daily. Past Week cholecalciferol (Vitamin D-3) 25 MCG (1000 UT) capsule Take by mouth. Past Week donepezil (Aricept) 10 MG tablet Take 5 mg by mouth daily. Past Week furosemide (Lasix) 20 MG tablet Take 20 mg by mouth 2 times daily. 05/24/2023 guaiFENesin (Mucinex) 600 MG 12 hr tablet Take 600 mg by mouth daily. Past Week HYDROcodone-acetaminophen ([place]) 5-325 MG tablet Take 1 tablet by mouth every 12 hours as needed. Past Week isosorbide mononitrate ER (Imdur) 30 MG 24 hr tablet Take 30 mg by mouth daily. Do not crush or chew. 05/25/2023 losartan (Cozaar) 50 MG tablet Take 50 mg by mouth daily. 05/25/2023 Melatonin 3 MG capsule Take by mouth Nightly. 05/24/2023 metFORMIN XR (Glucophage-XR) 500 MG 24 hr tablet Take 1,000 mg by mouth with evening meal. Do not crush, chew, or split. 05/24/2023 mirtazapine (Remeron) 7.5 MG tablet Take 1 tablet (7.5 mg) by mouth Nightly. 30 tablet 1 05/24/2023 Multiple Vitamins-Minerals (multivitamin with minerals) tablet Take 1 tablet by mouth daily. 05/24/2023 [place]-3 Fatty Acids (FISH OIL OMEGA-3 PO) Take by mouth daily. 05/24/2023 pantoprazole (ProtoNix) 40 MG EC tablet Take 40 mg by mouth in the morning and 40 mg in the evening. 05/25/2023 pioglitazone (Actos) 15 MG tablet Take 15 mg by mouth daily. 05/25/2023 sertraline (Zoloft) 50 MG tablet Take 50 mg by mouth daily. 05/25/2023 spironolactone (Aldactone) 25 MG tablet Take 25 mg by mouth in the morning. 05/25/2023 Allergies: Iodinated contrast media, Trazodone, Codeine, and Tramadol Social History: Social History Socioeconomic History Marital status: Spouse name: Not on file Number of children: 2 Years of education: Not on file Highest education level: Not on file Occupational History Not on file Tobacco Use Smoking status: Former Packs/day: 2.00 Types: Cigarettes Quit date: 1996 Years since quittin.5 Smokeless tobacco: Not on file Vaping Use Vaping Use: Never used Substance and Sexual Activity Alcohol use: Never Drug use: Never Sexual activity: Not Currently Partners: Male Other Topics Concern Not on file Social History Narrative Not on file Social Determinants of Health Financial Resource Strain: Not on file Food Insecurity: Not on file Transportation Needs: Not on file Physical Activity: Not on file Stress: Not on file Social Connections: Not on file Intimate Partner Violence: Not At Risk (05/25/2023) Humiliation, Afraid, Rape, and Kick questionnaire Fear of Current or Ex-Partner: No Emotionally Abused: No Physically Abused: No Sexually Abused: No Housing Stability: Not on file Family History: Family History Problem Relation Name Age of Onset Heart failure Mother Arthritis Mother Anxiety disorder Mother Hypertension Mother Dementia Mother Stroke Father Diabetes Father Lung disease Father Kidney cancer Sister Hypertension Sister Diabetes Sister REVIEW OF SYSTEMS: CONSTITUTIONAL: Negative for fatigue, and unexpected weight change RESPIRATORY: Negative for cough, SOB, and wheezing CARDIOVASCULAR: Negative for chest pains and palpatations GASTROINTESTINAL: none HEMATOLOGIC/LYMPHATIC: Negative for adenopathy. Does not bruise/bleed easily. NEUROLOGICAL: Negative for seizures and syncope * All other ROS reviewed see HPI for pertinent positives and negatives. PHYSICAL EXAM: VITALS: Vitals: 05/25/23 0822 BP: 124/56 Pulse: 88 Resp: 18 Temp: 36.2 C (97.2 F) SpO2: 92% GENERAL: Oriented to person, place, and time. Appears well nourished. No distress ENT: Normocepalic,atraumatic, without obvious abnormality NECK: supple, symmetrical, trachea midline LUNGS: Resp effort easy and unlabored CARDIOVASCULAR: Regular rate ABDOMEN: Soft, non-tender, no open wounds. MUSCULOSKELETAL: moves all extremities NEUROLOGIC: No focal neurologic deficits IMPRESSION/RECOMMENDATIONS: Colovaginal fistula colonsocopy Details of the procedure were discussed including the risks of bleeding, perforation, splenic injury, respiratory and anesthetic complications. Patient counseled on risks, benefits, and alternatives of treatment plan at length. Patient states an understanding and willingness to proceed with plan. documented in this encounter [facility] 05-17-2023 History of Present illness Narrative Interval history since last appointment: Any visits to primary care provider? No Any visits to the emergency department/hospital? No Any medication changes? Yes, reduced dose of Aricept Any falls? No Family present: patient, daughter Mariela, sister Gail Educational Materials reviewed/provided at visit: Memory/Cognitive Ability Next Steps After an Alzheimer's Diagnosis Alzheimer's Association info/hotline Memory Tips (moderate to severe) 5Ms Dealing with Dementia Stages for Memory Loss 10 Ways to Love Your Brain Exercise/Activities Dementia exercise tips Activities/Reminiscence guide Communication/Behaviors Communication - All Stages Communication Tips Redirecting Confabulation Therapeutic Fibbing Apathy Repetition Caregiver Stress Coping Techniques for Caregiver Stress Caregiver Guide Self Care for Caregivers Home Care/Facility Options Home Care Agency list Community Programs Free/Low Cost Caregiver Options Diet Healthy Nutrition for Older Adults - [facility] Injury Prevention/Home Safety [facility] Home Safety Checklist Hearing/Vision Hearing Loss and Older Adults Medications Medication Safety/Dispensers Sleep Getting a Good Night's Sleep ([facility]) Sleep Hygiene Day/Night Reversal Advanced Directives Healthcare Power of Comp Field Case Manager Living Will Recommend Financial Power of Comp Field Case Manager Elder Law Comp Field Case Manager List [facility] Advanced Directives Information Guide Personal Care Personal Care Tips Bathing Tips Dressing Tips Images from the original note were not included. [facility] [address] [place] [address] Dept: [phone] Dept Loc: [phone] Visit type: [facility] Family Summary Conference Reason for Visit: Memory Loss Visit Date: 05/25/2023 Assessment and Plan 1. Moderate late onset Alzheimer's dementia without behavioral disturbance, psychotic disturbance, mood disturbance, or anxiety (HCC) 2. Insomnia, unspecified type - mirtazapine (Remeron) 7.5 MG tablet; Take 1 tablet (7.5 mg) by mouth Nightly., Starting Tue05/17/2023, Normal 3. 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 Mild episode of recurrent major depressive disorder (HCC) We reviewed the diagnosis of early moderate stage Alzheimer's Dementia, course, prognosis and treatment. Discussed the option of medication. Opted to start Mirtazapine 7.5 mg nightly for insomnia . Continue Aricept 5 mg daily for memory loss-- nightmares significantly improved with lower dose. Reviewed management of the following behavioral symptoms: agitation, anxiety, depression, indifference/social withdrawal, and apathy, poor insight into own memory loss/functional deficits Discussed apathy of dementia, encouraged family to keep pt engaged during day and encourage activity, would also help with insomnia. Discussed safety management: increased supervision Reviewed the importance of caregiver stress and support through following means: Alzheimer's Association support and lead caster helper Reviewed advanced care plan. Health Care Power of Comp Field Case Manager, Financial Power of Comp Field Case Manager, and Living Will Educational information and handouts on the above was provided to the caregiver. Follow up in about 3 months (around 08/17/2023) for medication check, OK for virtual visit if needed. Subjective Robbin Singh is a 82 y.o. female who returns today for a Family Summary Conference to review the care plan based on the comprehensive geriatric assessment completed at the last appointment. Initially seen in 03/2023 for memory loss x 1 year, [place] 19 (MIS 2), CDT 5, PHQ 1, concern for early moderate stage Alzheimer's disease, labs and CT ordered to complete work-up. Aricept reduced to 5 mg daily due to nightmares. Patient update: Pt is here with her sister and daughter. Nightmares are less frequent since decreasing Aricept to 5 mg daily. Allergies Allergen Reactions Iodinated Contrast Media Other Trazodone Other Codeine Dizziness and Unknown Tramadol Dermatitis, Dizziness and Other Heart racing Heart racing, SOB Current Outpatient Medications Medication Sig Dispense Refill acetaminophen (Tylenol) 325 MG tablet Take by mouth. albuterol (2.5 MG/3ML) 0.083% nebulizer solution Take 3 mL by nebulization every 6 hours as needed for wheezing or shortness of breath. aspirin 81 MG chewable tablet Chew 81 mg in the morning. atorvastatin (Lipitor) 40 MG tablet Take 40 mg by mouth daily. cephalexin (Keflex) 250 MG capsule Take 250 mg by mouth daily. cholecalciferol (Vitamin D-3) 25 MCG (1000 UT) capsule Take by mouth. donepezil (Aricept) 10 MG tablet Take 5 mg by mouth daily. furosemide (Lasix) 20 MG tablet Take 20 mg by mouth 2 times daily. guaiFENesin (Mucinex) 600 MG 12 hr tablet Take 600 mg by mouth daily. HYDROcodone-acetaminophen ([place]) 5-325 MG tablet Take 1 tablet by mouth every 12 hours as needed. isosorbide mononitrate ER (Imdur) 30 MG 24 hr tablet Take 30 mg by mouth daily. Do not crush or chew. losartan (Cozaar) 50 MG tablet Take 50 mg by mouth daily. Melatonin 3 MG capsule Take by mouth Nightly. metFORMIN XR (Glucophage-XR) 500 MG 24 hr tablet Take 1,000 mg by mouth with evening meal. Do not crush, chew, or split. mirtazapine (Remeron) 7.5 MG tablet Take 1 tablet (7.5 mg) by mouth Nightly. 30 tablet 1 Multiple Vitamins-Minerals (multivitamin with minerals) tablet Take 1 tablet by mouth daily. [place]-3 Fatty Acids (FISH OIL OMEGA-3 PO) Take by mouth daily. pantoprazole (ProtoNix) 40 MG EC tablet Take 40 mg by mouth in the morning and 40 mg in the evening. pioglitazone (Actos) 15 MG tablet Take 15 mg by mouth daily. sertraline (Zoloft) 50 MG tablet Take 50 mg by mouth daily. spironolactone (Aldactone) 25 MG tablet Take 25 mg by mouth in the morning. No current facility-administered medications for this visit. Past Medical History: Diagnosis Date COPD (chronic obstructive pulmonary disease) ([facility]) Depression Pulmonary hypertension ([facility]) Social History Tobacco Use Smoking status: Former Packs/day: 2.00 Types: Cigarettes Quit date: 1996 Years since quittin.5 Smokeless tobacco: Not on file Substance Use Topics Alcohol use: Never Past Surgical History: Procedure Laterality Date COLONOSCOPY N/A 05/25/2023 Performed by Samantha Nava MD at [facility] [address] ENDOSCOPY Family History Problem Relation Name Age of Onset Heart failure Mother Arthritis Mother Anxiety disorder Mother Hypertension Mother Dementia Mother Stroke Father Diabetes Father Lung disease Father Kidney cancer Sister Hypertension Sister Diabetes Sister Family Status Relation Name Status Mother (Not Specified) Father (Not Specified) Sister (Not Specified) Objective Wt Readings from Last 3 Encounters: 05/25/23 290 lb (132 kg) 05/17/23 295 lb (134 kg) 04/11/23 291 lb (132 kg) No physical exam performed Discussion only Data Reviewed and Summarized Problems and recommendations from initial assessment reviewed, Medications reviewed, Recent laboratory tests reviewed, and Recent diagnostic imaging reviewed Labs: Lab Results Component Value Date WBC 8.2 05/04/2023 HGB 10.4 (L) 05/04/2023 HCT 34.2 (L) 05/04/2023 MCV 92.7 05/04/2023 PLT 218 05/04/2023 No results found for: NA, K, CL, CO2, BUN, CREATININE, GLUCOSE, CALCIUM, PROT, BILITOT, ALKPHOS, AST, ALT, LABGLOM, AGRATIO, GLOB Lab Results Component Value Date TSH 2.018 05/04/2023 Lab Results Component Value Date FOLATE >20.0 05/04/2023 Lab Results Component Value Date [id number] 590 05/04/2023 No results found for: RPR Imaging: head CT reviewed Testing: I reviewed the [place] CognitiveAssessment from the initial assessment with the patient and family. Total score was 19 out of 30. I spent total time of 43 minutes face to face with the patient and/or family discussing the diagnosis and importance of compliance with the treatment plan as well as documenting on the day of the visit. In addition, that total time includes the following: -Reviewing previous notes, -Reviewing labs, -Reviewing previous cognitive tests, -Obtaining and/or reviewing separately obtained history, -Ordering prescription medications, tests and procedures, -Communicating results to the patient/family/caregiver, -Counseling/educating the patient/family/caregiver, -Documenting clinical information in the patients electronic record, and -Coordination of care for the patient documented in this encounter [facility] 05-17-2023 Instructions FILEMON Shepherd CNP - 05/17/2023 2:45 PM EDT Ms. Singh was seen today for memory. Today you were diagnosed with early moderate stage Alzheimer's disease. Moderate stage, can be stable for long periods of time. Medications: - Continue Aricept (donepezil) 5 mg daily to help slow down memory loss. - For sleep, start Mirtazapine 7.5 mg nightly about 30 days before bedtime. Common side effects include drowsiness, dry mouth, increased appetite. Contact me right away if you're having problems with the medication. Avoiding medications that cause confusion and falls - Tylenol PM, Benadryl Recommend physical, mental, and social activity - [facility], [employer]. Recommend routines, schedules, and organization. Recommend getting adequate sleep and eating balanced diet. Continue regular visits with primary care provider to maintain chronic health conditions. 5 M s - assistance with medications, medical care, meals, money, mobility (driving, falls). Recommend completing advance directives, if not already completed- living will, health care POA, financial POA. Recommend caregiver support- Ex Alzheimer's Association support groups, in-home help vs adult day center. Follow-up visit in 3 months for medication check. OK for virtual visit. documented in this encounter [facility] 04-11-2023 Miscellaneous Notes TC to patients daughter with no answer. Left VM to return call to office to receive update. JUSTINE Gupta Please reach out to patient's daughter. Let her know we refilled Robbin's [place], however, she No Showed to her appt last 04/07/2023 and needs to reschedule or we will not be able to refill again. Patient has been identified by name and date of : Yes Patient phones for refill(s): Requested Prescriptions Pending Prescriptions Disp Refills HYDROcodone-acetaminophen ([place]) 5-325 mg per tablet 60 tablet 0 Sig: Take 1 tablet by mouth twice daily as needed for up to 30 days. Date of last office visit in primary care: [facility] 12/23/22 No appointment scheduled Last 2 Encounter Wt Readings: Date: Wt: 03/18/2023 127.5 kg (281 lb) 02/21/2023 129.7 kg (286 lb) Please advise. Thank you. JUSTINE Gupta documented in this encounter [facility] 04-11-2023 History of Present illness Narrative COLORECTAL SURGERY OFFICE VISIT PATIENT NAME: Robbin Singh : 1940 TODAY'S DATE: 04/11/2023 Chief Complaint Patient presents with New Patient Evaluation for colovesical fistula Other Patient accompanied by Gail sister, Mariela daughter SUBJECTIVE: Robbin Singh is a 82 y.o. 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 Patient has dementia and is daughter is rn progressive care. She noticed feces inside her vagina. She notices stool on toilet paper after wiping. She has a history of mixed incontinence and wears Depends. She started having stool with wiping after urination months ago She denies fecaluria, pneumaturia She has had a laparoscopic cholecystectomy about 25 years ago. She denies abdominal pain. She has a history of colon polyps, but has not had a colonoscopy since 2016, when she had multiple polyps. Saw a surgeon through [facility] who recommended colonoscopy, however this was cancelled Has a bowel movement every 2-3 days. She does have some incontinence but thinks this is mostly incontinence of urine. No family hx of colorectal cancer No anticoagulants Review of Systems as documented No past medical history on file. No past surgical history on file. Current Outpatient Medications on File Prior to Visit Medication Sig Dispense Refill acetaminophen (Tylenol) 325 MG tablet Take by mouth. albuterol (2.5 MG/3ML) 0.083% nebulizer solution Take 3 mL by nebulization every 6 hours as needed for wheezing or shortness of breath. aspirin 81 MG chewable tablet Chew 81 mg in the morning. atorvastatin (Lipitor) 40 MG tablet Take 40 mg by mouth daily. cholecalciferol (Vitamin D-3) 25 MCG (1000 UT) capsule Take by mouth. donepezil (Aricept) 10 MG tablet Take 10 mg by mouth daily. furosemide (Lasix) 20 MG tablet Take 20 mg by mouth 2 times daily. guaiFENesin (Mucinex) 600 MG 12 hr tablet Take 600 mg by mouth daily. HYDROcodone-acetaminophen ([place]) 5-325 MG tablet Take 1 tablet by mouth every 12 hours as needed. hydrOXYzine HCl (Atarax) 10 MG tablet take 1 tablet 30 to 45 MINUTES BEFORE BEDTIME isosorbide mononitrate ER (Imdur) 30 MG 24 hr tablet Take 30 mg by mouth daily. Do not crush or chew. losartan (Cozaar) 50 MG tablet Take 50 mg by mouth daily. Melatonin 3 MG capsule Take by mouth Nightly. metFORMIN XR (Glucophage-XR) 500 MG 24 hr tablet Take 1,000 mg by mouth with evening meal. Do not crush, chew, or split. Multiple Vitamins-Minerals (multivitamin with minerals) tablet Take 1 tablet by mouth daily. [place]-3 Fatty Acids (FISH OIL OMEGA-3 PO) Take by mouth daily. pioglitazone (Actos) 15 MG tablet Take 15 mg by mouth daily. sertraline (Zoloft) 50 MG tablet Take 50 mg by mouth daily. [DISCONTINUED] metFORMIN HCl ER 500 MG/5ML Suspension Reconstituted ER No current facility-administered medications on file prior to visit. Social History Socioeconomic History Marital status: Spouse name: Not on file Number of children: 2 Years of education: Not on file Highest education level: Not on file Occupational History Not on file Tobacco Use Smoking status: Former Packs/day: 2.00 Types: Cigarettes Quit date: 1996 Years since quittin.4 Smokeless tobacco: Not on file Vaping Use Vaping Use: Never used Substance and Sexual Activity Alcohol use: Never Drug use: Never Sexual activity: Not Currently Partners: Male Other Topics Concern Not on file Social History Narrative Not on file Social Determinants of Health Financial Resource Strain: Not on file Food Insecurity: Not on file Transportation Needs: Not on file Physical Activity: Not on file Stress: Not on file Social Connections: Not on file Intimate Partner Violence: Not on file Housing Stability: Not on file Family History Problem Relation Name Age of Onset Heart failure Mother Arthritis Mother Anxiety disorder Mother Hypertension Mother Dementia Mother Stroke Father Diabetes Father Lung disease Father Kidney cancer Sister Hypertension Sister Diabetes Sister Allergies: Allergies Allergen Reactions Iodinated Contrast Media Other Trazodone Other Codeine Dizziness and Unknown Tramadol Dermatitis, Dizziness and Other Heart racing Heart racing, SOB OBJECTIVE: BP 126/78 (BP Location: Right arm, Patient Position: Sitting, BP Cuff Size: Large adult) Temp 36.8 C (98.3 F) Ht 5' 5 (1.651 m) Wt 291 lb (132 kg) BMI 48.42 kg/m Physical Examination GENERAL: NAD, alert, oriented HEENT: Pupils equal, normal conjunctivae without scleral icterus PULMONARY: Normal respiratory effort, chest non-tender CARDIO: no edema ABDOMEN: soft, non-distended, non-tender, no guarding, no rebound, no obvious hepatosplenomegaly PSYCHIATRIC: appropriate mood and judgement RECTUM: deferred Exam chaperoned by female loan assistant. IMAGING: Per chart rveiew She underwent a CT scan at [facility] on 12/31/2022 with findings of mid sigmoid diverticulitis with probable fistula to the adjacent urinary bladder. Associated colonic wall thickening and adjacent stranding noted. There is under distension of the urinary bladder with significant wall edema and adjacent inflammatory change. ASSESSMENT/PLAN: Diagnosis Plan 1. Colovaginal fistula 2. Diverticulitis 3. Abnormal CT scan 4. Dementia, unspecified dementia severity, unspecified dementia type, unspecified whether behavioral, psychotic, or mood disturbance or anxiety (HCC) 5. Morbid obesity (HCC) Long discussion held with Robbin and and daughter about options going forward Recommend starting with colonoscopy first to rule out small chance of malignancy and to identify level of fistula if possible (at least r/o rectovaginal fistula, which would require different treatment) Details of colonoscopy are discussed including the risks of bleeding, perforation, splenic injury, inability to complete colonoscopy, not being able to identify small polyps if the bowel prep is inadequate, respiratory and anesthetic complications. We will schedule for colonoscopy. On discussing surgery she is against having a stoma. I discussed with her that sigmoid resection would be high risk in her, and while it wouldn't necessarily mean she'd need a stoma, that I can't promise it might not be needed based on operative findings or post operative course. We discussed outcome of non-operative management- increasingly frequent urinary infections, possibly sepsis, that could be managed with antibiotics but will ultimately become resistent and more life-threatening. She and her daughters wish to consider their options and discuss again. 1 hour spent on this encounter No follow-ups on file. The patient was given the opportunity to ask questions and all questions were answered to the best of my ability. The patient agrees with the above noted plan. The patient was seen and examined independently and relevant data reviewed by myself. A full chart review including labs, imaging, endoscopic reports, pathology, and requesting/reviewing previous records was performed when available. Samantha Nava MD [facility] Colorectal Surgery [address], [address] [place] [id number] p [phone] f [phone] documented in this encounter [facility] 04-05-2023 Note Mrs. Singh was see n today for memory/geriatric evaluation. Memory testing was below expected for age/education level. Before I can diagnose a memory problem, I need to rule out that something else isn't causing it. Decrease donepezil to half tablet daily in AM. Monitor to see if vivid dreams and nightmares improve on lower dose until next visit in 4-6 weeks. As much as possible, you need to stay awake during the daytime so that you're able to sleep through the night. Try NOT to nap during the daytime. Blood work was ordered today to be drawn at the hospital lab. Our office staff will help you schedule brain imaging in the coming weeks (CT head). Return in 4-6 weeks for summary visit. [facility] 04-05-2023 History of Present illness Narrative Images from the original note were not included. [facility] [address] [place] [address] Dept: [phone] Dept Loc: [phone] Visit type: [facility] Initial Assessment Visit Date: 04/11/2023 Reason for Visit: Memory Loss Assessment and Plan 1. Memory loss - CT head wo IV contrast - CBC - TSH - Vitamin B12 - Folate 2. Mild episode of recurrent major depressive disorder (HCC) 3. Nightmares - Mental status change with cognitive deficits in the following areas: Visuospatial/executive function, attention, language, delayed recall (MIS 2), orientation which have been slowly progressive over time with subsequent impairment in function. History and exam are concerning for Alzheimer's Dementia, early moderate. Have ordered labs and head CT to complete the assessment. Will review results at the Family Summary Conference. - Depression well controlled. PHQ 1 today. Continue Sertraline 50 mg daily. Will discuss plan for Hydroxyzine at next visit. Reinforced sleep hygiene to help with day/night confusion. - Nightmares related to Donepezil. Some improvement in frequnecy with changing to AM dosing but still bothersome to pt. Advised pt/family to decrease to 5 mg in AM. Follow up on response at next visit in 4-6 weeks. Follow up in about 4 weeks (around 05/03/2023) for summary visit. Subjective HPI: Robbin Singh is a 82 y.o. female who presents to the [facility] for a comprehensive geriatric assessment. The patient is new to me. Referred for dementia, having nightmares, on Donepezil at , previously diagnosed with dementia. Family helping with pt's care. PMH: anxiety, depression, OA multiple joints, leg edema, CHF, CKD 3, COPD, DDD cervical and lumbar, DM2, HTN, LITTLE SHELL TRIBE, frequent falls, interstitial cystitis, urinary incontinence, neuropathy, HLD, TACO, pulmonary nodules, RA, dementia History obtained from caregiver(s): Pt is here with her daughter Mariela. Started on donepezil about 1 year ago for presumptive dementia. Initially at bedtime, changed to AM due to nightmares. Still having nightmares, less frequent than previously, even if she falls asleep during the daytime she'll tell family that she had a bad dream. Fearful at times. Describes vivid, colored dreams to daughter. Short term memory loss: Examples of difficulties patient is experiencing: - Cannot remember hardly anything - Will ask daughter repeatedly what she's going to the doctor for, mixes up details of appt - No longer drives, daughter doesn't let her drive anymore, was going very locally, couldn't figure out how to start the car with the push button, daughter drives her whenever she needs to go out - Daughter sets up pill box, has tried setting pills out but pt was forgetting to take them, dtr now administering - Since COVID she became more isolated and less social, used to be very outgoing, doesn't laugh as much anymore even with family - Gets facts wrong about things that happened in the past Severity (as seen by the provider based on caregiver history): moderate, Duration- symptoms started over the past year, worse over the past 6-8 months- she turned a corner , Timing- slowly progressive, all day everyday, worse at night and if she has an appt the next day, cognitive changes are stable day to day, Context- (give details of any yes answers) history of stroke- No, history of head trauma- No, history of seizures- No, history of toxin exposures- No, history of hospitalization or surgery that made memory worse- No History of COVID-19- No History of cancer? - Yes - skin cancer on chest that was surgically removed about 15-20 years ago Hearing Loss? - Yes - has hearing aids that she lost Hearing Aids? -no Associated signs and symptoms- delusions or hallucinations- No paranoia- No Trouble sleeping? Yes - pt will wake up in the middle of the night and start doing things, cleaning the house, doing laundry, more daytime sleeping REM-related sleep disorder- unknown sleeps alone History obtained from patient: I don't do a lot. Most of her pain is in her knees but she can deal with it. Has pain in her groin due to the fistula, burning sensation. Memory- she doesn't notice much issues. Mood- great person. Gets depressed sometimes because she used to be more active. Appetite- sometimes I eat a lot and other times she doesn't eat that much. Drinks diet Dr. Stephens all day. Sleeping- not very good. Goes days without sleeping. Hearing Screen: HHIE-S: 38/40 Able to identify 9-1-1: yes Current events: Current President? Eugenio Why are we wearing masks? CAROLYN Reviewed progress notes completed by LAURA CARLIN)and social work. Allergies Allergen Reactions Iodinated Contrast Media Other Trazodone Other Codeine Dizziness and Unknown Tramadol Dermatitis, Dizziness and Other Heart racing Heart racing, SOB Current Outpatient Medications Medication Sig Dispense Refill acetaminophen (Tylenol) 325 MG tablet Take by mouth. albuterol (2.5 MG/3ML) 0.083% nebulizer solution Take 3 mL by nebulization every 6 hours as needed for wheezing or shortness of breath. aspirin 81 MG chewable tablet Chew 81 mg in the morning. atorvastatin (Lipitor) 40 MG tablet Take 40 mg by mouth daily. cholecalciferol (Vitamin D-3) 25 MCG (1000 UT) capsule Take by mouth. donepezil (Aricept) 10 MG tablet Take 10 mg by mouth daily. furosemide (Lasix) 20 MG tablet Take 20 mg by mouth 2 times daily. guaiFENesin (Mucinex) 600 MG 12 hr tablet Take 600 mg by mouth daily. HYDROcodone-acetaminophen ([place]) 5-325 MG tablet Take 1 tablet by mouth every 12 hours as needed. hydrOXYzine HCl (Atarax) 10 MG tablet take 1 tablet 30 to 45 MINUTES BEFORE BEDTIME isosorbide mononitrate ER (Imdur) 30 MG 24 hr tablet Take 30 mg by mouth daily. Do not crush or chew. losartan (Cozaar) 50 MG tablet Take 50 mg by mouth daily. Melatonin 3 MG capsule Take by mouth Nightly. metFORMIN XR (Glucophage-XR) 500 MG 24 hr tablet Take 1,000 mg by mouth with evening meal. Do not crush, chew, or split. Multiple Vitamins-Minerals (multivitamin with minerals) tablet Take 1 tablet by mouth daily. [place]-3 Fatty Acids (FISH OIL OMEGA-3 PO) Take by mouth daily. pioglitazone (Actos) 15 MG tablet Take 15 mg by mouth daily. sertraline (Zoloft) 50 MG tablet Take 50 mg by mouth daily. No current facility-administered medications for this visit. History reviewed. No pertinent past medical history. Social History Tobacco Use Smoking status: Former Packs/day: 2.00 Types: Cigarettes Quit date: 1996 Years since quittin.4 Smokeless tobacco: Not on file Substance Use Topics Alcohol use: Never History reviewed. No pertinent surgical history. Family History Problem Relation Name Age of Onset Heart failure Mother Arthritis Mother Anxiety disorder Mother Hypertension Mother Dementia Mother Stroke Father Diabetes Father Lung disease Father Kidney cancer Sister Hypertension Sister Diabetes Sister Family Status Relation Name Status Mother (Not Specified) Father (Not Specified) Sister (Not Specified) Objective Vitals: 04/05/23 1523 04/05/23 1619 BP: (!) 160/124 127/79 BP Location: Left arm Left arm Patient Position: Sitting Sitting BP Cuff Size: Large adult Large adult Pulse: 72 76 Weight: 289 lb 6.4 oz (131 kg) Wt Readings from Last 3 Encounters: 04/05/23 289 lb 6.4 oz (131 kg) Physical Exam Constitutional: General: She is not in acute distress. Appearance: She is not ill-appearing. Comments: Elderly, obese female. Pleasant and cooperative. Well kempt. HENT: Head: Normocephalic. Comments: No glasses. No hearing aids. LITTLE SHELL TRIBE at times. Right Ear: External ear normal. Left Ear: External ear normal. Cardiovascular: Rate and Rhythm: Normal rate and regular rhythm. Heart sounds: Normal heart sounds. No murmur heard. Pulmonary: Effort: Pulmonary effort is normal. No respiratory distress. Breath sounds: Normal breath sounds. Abdominal: General: Abdomen is flat. Bowel sounds are normal. Palpations: Abdomen is soft. Tenderness: There is no abdominal tenderness. Musculoskeletal: General: Swelling (1+ BLE) present. Comments: Muscle strength 3+/5 BLE, 4/5 BUE. Gait- not observed. Pt in wheelchair for visit. Skin: General: Skin is warm and dry. Neurological: Cranial Nerves: Cranial nerve deficit (hearing loss) present. Sensory: Sensory deficit (numbness bilat feet) present. Motor: Weakness (see MS exam) present. Coordination: Coordination normal. Comments: Alert and oriented x 2 (to self and place, doesn't know month or year). Knows current events and 911. Speech clear and appropriate. Follows commands. No tremors BUE. No cogwheeling rigidity BUE. Psychiatric: Comments: Appropriate affect and behavior. Repetitive. Data Reviewed and Summarized Old records reviewed and summarized here: labs- CMP done 02/2023 Labs: No results found for: WBC, HGB, HCT, MCV, PLT No results found for: NA, K, CL, CO2, BUN, CREATININE, GLUCOSE, CALCIUM, PROT, BILITOT, ALKPHOS, AST, ALT, LABGLOM, AGRATIO, GLOB No results found for: TSH No results found for: FOLATE No results found for: [id number] No results found for: RPR Testing: The following tests were performed at today's visit and scanned in to the chart: MoCA score: 19, MIS score: 2 Clock drawing score: 5 PHQ-9 score: 1 SIN score: not done I independently reviewed the [place] Cognitive Assessment from 04/11/2023. Test scanned in to the chart. I spent total time of 64 minutes face to face with the patient and/or family discussing the diagnosis and importance of compliance with the treatment plan as well as documenting on the day of the visit. In addition, that total time includes the following: -Reviewing previous notes, -Reviewing labs, -Obtaining and/or reviewing separately obtained history, -Ordering prescription medications, tests and procedures, -Counseling/educating the patient/family/caregiver, -Documenting clinical information in the patients electronic record, -Coordination of care for the patient, and -Performing a medically appropriate exam and/or evaluation Review of Systems Constitutional: Positive for fatigue. Negative for appetite change, fever and unexpected weight change. HENT: Positive for hearing loss. Negative for dental problem and trouble swallowing. Eyes: Negative for visual disturbance. Respiratory: Negative for cough and shortness of breath. Cardiovascular: Positive for leg swelling. Gastrointestinal: Positive for constipation. Negative for diarrhea. Genitourinary: Positive for difficulty urinating. Negative for dysuria. Musculoskeletal: Positive for arthralgias, back pain and gait problem. Neurological: Negative for tremors, speech difficulty and weakness. Psychiatric/Behavioral: Positive for agitation, confusion, dysphoric mood and sleep disturbance. Negative for hallucinations. The patient is nervous/anxious. Senior Services/Geriatrics Social History Present at visit: patient, daughter Mariela Marital status: Children: 2 children (both local) Living arrangement: lives in home with daughterMariela Household safety problems: no falls in past year Concerning Behaviors: None Wandering potential: No Pets: Yes, 2 cats, daughter cares for cats Guns in the home: None Elder abuse: patient talks to scammers on the phone, daughter tries to intervene to stop her from giving out info Alcohol/Tobacco/Marijuana/Drug Use History: no service: Spouse was a [place] (did not serve during war) Highest level of education: HS 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, 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 Activities: nephew and great granddaughter come to visit once per week, watches tv Exercise: none Finances: close to $2000 in income Healthcare Power of Comp Field Case Manager: No Financial Power of Comp Field Case Manager: No Living Will: No Guardian: No Code Status: Full Code Primary Caregiver: chandan Sierra Current care plan/supervision: can leave her for short time periods, daughter Mariela is with patient most of the time Community resources: None Caregiver stressors: daughter feels some caregiver stress, lack of respite, increased responsibilities Goals for care: evaluate memory As a Caregiver, What Matters Most to You: Disease education >>04/05/23 Daughter reports that patient gets past memories mixed up, days and nights mixed up. Patient has never done Advanced Directives. SW encouraged daughter to help patient complete these. Will give more info at Family Summary Conference. Functional Status (I: Independent, A: Assisted, D: Dependent) ADLs I A D Notes Bathing [] [x] [] Daughter has to remind her to shower, patient somewhat resistant Dressing [] [x] [] Needs some help with undergarments, will wear same clothes for days Toileting [] [x] [] Wears Depends, daughter helps with clean up Transfers [] [x] [] Has lift chair, sometimes needs help up Feeding [x] [] [] No issues Ambulation [] [x] [] Uses a walker to walk Assistive devices: Grab bars, Hearing aids, Lift chair, Raised toilet seat, and Walker (lost hearing aids) IADLs I A D Telephone [] [x] [] Has a cell phone, can call and answer the phone, daughter sets up appointments, needs reminders, multiple questions about appointments Transportation [] [] [x] Driving safety concerns: Not currently driving, couldn't start the car any longer Shopping [] [] [x] Daughter shops, mostly does delivery Meal prep [] [x] [] Daughter cooks, patient will get some things for herself Housework [] [x] [] Daughter cleans mostly, will do a few tasks Medications [] [] [x] Daughter administers Finances [] [] [x] Daughter manages, no longer carries beck/cards Educational materials will be provided at next visit: Memory/Cognitive Ability Next Steps After an Alzheimer's Diagnosis Alzheimer's Association info/hotline Memory Tips (moderate to severe) 5Ms Dealing with Dementia Stages for Memory Loss 10 Ways to Love Your Brain Exercise/Activities Dementia exercise tips Activities/Reminiscence guide Communication/Behaviors Communication - All Stages Communication Tips Redirecting Confabulation Therapeutic Fibbing Apathy Repetition Caregiver Stress Coping Techniques for Caregiver Stress Caregiver Guide Self Care for Caregivers Home Care/Facility Options Home Care Agency list Community Programs Free/Low Cost Caregiver Options Diet Healthy Nutrition for Older Adults - [facility] Injury Prevention/Home Safety [facility] Home Safety Checklist Hearing/Vision Hearing Loss and Older Adults Medications Medication Safety/Dispensers Sleep Getting a Good Night's Sleep ([facility]) Sleep Hygiene Day/Night Reversal Advanced Directives Healthcare Power of Comp Field Case Manager Living Will Recommend Financial Power of Comp Field Case Manager Elder Law Comp Field Case Manager List [facility] Advanced Directives Information Guide Personal Care Personal Care Tips Bathing Tips Dressing Tips documented in this encounter [facility] 04-05-2023 Instructions Shantal Serrano APRN - CARINE - 04/05/2023 2:45 PM EDT Mrs. Singh was seen today for memory/geriatric evaluation. Memory testing was below expected for age/education level. Before I can diagnose a memory problem, I need to rule out that something else isn't causing it. Decrease donepezil to half tablet daily in AM. Monitor to see if vivid dreams and nightmares improve on lower dose until next visit in 4-6 weeks. As much as possible, you need to stay awake during the daytime so that you're able to sleep through the night. Try NOT to nap during the daytime. Blood work was ordered today to be drawn at the hospital lab. Our office staff will help you schedule brain imaging in the coming weeks (CT head). Return in 4-6 weeks for summary visit. documented in this encounter [facility] 04-01-2023 Note HNO ID: [id number] Author: Leno Briggs MD Service: ? Author Type: Physician Type: Progress Notes Filed: 04/04/2023 1:02 PM Note Text: Appt cancelled since patient actually needed seen in office for a routine. [facility] 04-01-2023 History of Present illness Narrative Appt cancelled since patient actually needed seen in office for a routine. documented in this encounter [facility] 03-16-2023 Miscellaneous Notes Patient phones requesting refills as follows: Requested Prescriptions Pending Prescriptions Disp Refills metFORMIN ER (GLUCOPHAGE XR) 500 mg 24 hr tablet 180 tablet 1 Sig: Take 2 tablets by mouth daily with dinner. TAVO 12/23/2022 NOV 04/01/2023 Please review and advise. Atiya Deluna LPN documented in this encounter [facility] 03-11-2023 Miscellaneous Notes Faxed. Antionette Coleman MA Order printed and signed and ready to fax Ok to refer? Cristina Garcia Ma documented in this encounter [facility] 03-09-2023 Miscellaneous Notes The following approved medication requests have been transmitted electronically. Requested Prescriptions Signed Prescriptions Disp Refills HYDROcodone-acetaminophen ([place]) 5-325 mg per tablet 60 tablet 0 Sig: Take 1 tablet by mouth twice daily as needed for up to 30 days. Do not start before March 17, 2023. Authorizing Provider: LENO BRIGGS MD PDMP website checked and validated. All prescriptions have been APPROPRIATELY filled. No suspicious activity was identified. 03/09/2023 by Leno Briggs MD Patient has been identified by name and date of : Yes, Provider Dr. Briggs Date 03/09/23 Time 11:21 am Patient phones for refill(s): Requested Prescriptions Pending Prescriptions Disp Refills HYDROcodone-acetaminophen (NORCO) 5-325 mg per tablet 60 tablet 0 Sig: Take 1 tablet by mouth twice daily as needed for up to 30 days. Date of last office visit in primary care: 12/23/22 next apt 03/11/23 Last 2 Encounter Wt Readings: Date: Wt: 02/21/2023 129.7 kg (286 lb) 01/25/2023 130 kg (286 lb 9.6 oz) Previous labs/tests for medication: Not applicable Please advise. Thank you. Shelby Rogel LPN documented in this encounter [facility] 03-09-2023 Miscellaneous Notes The following approved medication requests have been transmitted electronically. Requested Prescriptions Signed Prescriptions Disp Refills hydrOXYzine HCl (ATARAX) 10 mg tablet 90 tablet 1 Sig: Take one tab 30-45 min prior to bed. Authorizing Provider: LENO BRIGGS MD Spoke with pt's daughter, Mariela and advised her of Dr Briggs's message. She verbalizes understanding and would like rx sent to [facility] Pharm updated in Epic. Grecia Riley LPN LM for patient to contact office to inquire which pharmacy. Kaitlynn Luciano MA Let patient know I can send in a script for a mild sleep aid that she can take 30-45 min prior to bed. She where she wants it sent. Please my chart message from Daughter. Antionette Coleman MA Patient is calling in today stating that she can NOT sleep at night. States she does NOT sleep during the day so not sure why she can not sleep. Wanting to see if there is a medication that would help her sleep. Contact patient at [phone]. Joanne Rogel Pss documented in this encounter [facility] 02-21-2023 Note HNO ID: [id number] Author: Radha Baldwin APRN.[employer]BI[employer] H[employer] REPAIRER Service: ? Author Type: Nurse Practitioner Type: Progress Notes Filed: 02/22/2023 12:47 PM Note Text: [facility] ([facility]) [address] [facility] [id number] OUTPATIENT VISIT February 21, 2023 2:00 PM Chief Complaint Patient presents with: Consult History of Present Illness: Robbin Singh is a 82 year old female who presents for cardiology evaluation. She has a past medical history of hypertension, hyperlipidemia, former smoker, COPD, chronic diastolic heart failure, DM2, obesity. Today, her daughter and sister accompany her for her office visit. She lives with her daughter due to dementia memory loss. She is planned for colovesical fistula surgery in the near future and referred to cardiology for surgical risk stratification. She is independent in ADLs. She does endorse chronic dyspnea on exertion largely unchanged for many years. She denies chest discomfort, dizziness, palpitations, orthopnea, LE swelling. She completed an echocardiogram last year with mild diastolic dysfunction and moderate PH otherwise normal structure and function. Her most recent ischemic evaluation was in 2019 via stress testing. We reviewed cardiac risk factors and modifications. She has several risk factors that appear to have reasonable control. She has no established prior coronary artery disease. No s/s of CHF. She reports taking medications as prescribed with the help of her daughter. I believe she is a reasonably low risk for noncardiac surgery. PAST MEDICAL HISTORY Diagnosis Date Anxiety and depression 01/01/2019 Arthritis of shoulder region, degenerative right Corticosteroid 09/20/14, left corticosteroid 10/07/14 Arthritis, multiple joint involvement 01/16/2018 Advised tylenol Arthritis 11/15/2018 and to avid NSAID's with her Hx of stomach issues and being diabetic for risk of renal impairment. Bilateral leg edema 07/31/2019 Bilateral primary osteoarthritis of knee 03/26/2019 Cervical spondylosis with myelopathy 07/29/2015 Chronic diastolic heart failure (HCC), mild. 08/27/[address] Bravo. Chronic pain of both knees 11/16/2019 CKD (chronic kidney disease) stage 3, GFR 30-59 ml/min ([facility]) 01/01/2019 COPD with chronic bronchitis ([facility]) 02/15/2017 Dr. Brito Current use of proton pump inhibitor 11/25/2016 Mg checked 11/2017 DDD (degenerative disc disease), cervical 07/29/2015 DDD (degenerative disc disease), lumbar 05/08/2013 Diabetes mellitus type 2 in obese ([facility]) 06/2015 a1c 6.5% Diabetic eye exam ([facility]) 03/15/2017 Last done: 10/24/2019 No Retinopathy Essential hypertension 08/17/2012 Ex-smoker 07/21/2017 Started around age 21 up to 2.3-3 PPD, Quit around age 57 Frequency of micturition 12/27/2016 Frequent falls 05/15/2019 GERD without esophagitis 11/25/[address] Slade Hearing loss in left ear Hip pain 12/23/2014 History of melanoma Interstitial cystitis Lumbar radiculopathy 04/29/2014 Lumbar spondylosis Lymphadenopathy of left cervical region 12/18/2013 MCI (mild cognitive impairment) 01/01/2019 Mechanical back pain 12/08/[address] Quezada for pain management. Medicare annual wellness visit, subsequent 12/05/2017 Medicare part B: 07/08/2005 last done:01/04/2020 Mixed hyperlipidemia 08/17/2012 Neuropathic pain 12/08/2012 Obesity, Class III, BMI >= 40 06/26/2018 TACO (obstructive sleep apnea) DME [employer] [facility] [phone] Pain due to total left knee replacement (HCC) 06/08/2018 Personal history of colonic polyps 01/23/2016 Primary insomnia 03/16/2017 Brain center 06/26/2018 recommended Klonopin every other day for a week and then just as needed. Primary osteoarthritis of right knee 07/13/2016 Pulmonary hypertension (HCC) 05/19/2022 Seeing pulm and cardio Pulmonary nodules 03/03/2013 Incidental non-calcified nodules 10/09/2012. Repeat CT due 06/2013 Recurrent major depressive disorder, in full remission ([facility]) 08/17/2012 Rheumatoid arthritis(714.0) Spondylosis of lumbar region without myelopathy or radiculopathy 05/28/2015 Status post total left knee replacement 06/08/2018 Stress incontinence 11/21/[address] Armas. Thyroid nodule 11/15/2018 Stable on 2017 Type 2 diabetes mellitus with stage 3 chronic kidney disease, without long-term current use of insulin ([facility]) 06/06/2017 Urge incontinence 11/21/2012 PAST SURGICAL HISTORY Procedure Laterality Date ARTHRP KNE CONDYLEANDPLATU MEDIALANDLAT COMPARTMENTS Left 06/08/2012 CHOLECYSTECTOMY HX 10/30/1997 COLONOSCOPY AND POLYPECTOMY ~2007 2 polyps COLONOSCOPY AND POLYPECTOMY ~2001 7 polyps COLONOSCOPY AND POLYPECTOMY 11/30/2011 COLONOSCOPY FLX DX W/COLLJ SPEC WHEN PFRMD 11/29/12 Colonoscopy repeat 3 years COLONOSCOPY FLX DX W/COLLJ SPEC WHEN PFRMD 01/28/16 Colonoscopy with mac CYSTOSCOPY 09/21/12 EGD 10/17/2011 Dr Negrete in [place] ESOPHAGOGASTRODUODENOSCOPY TRANSORAL DIAGNOS (more content not included)... [facility] 02-18-2023 Instructions Lauren Gruber RN - 02/18/2023 7:37 AM EDT Images from the original note were not included. Bowel Preparation Instructions for: Golytely, Nulytely, Trilyte or Colyte (polyethylene glycol 3350 and electrolytes) IF YOU DO NOT FOLLOW THESE DIRECTIONS, YOUR COLONOSCOPY WILL BE CANCELLED. Frey Instructions: Your bowel must be empty so that your doctor can clearly view your colon. Follow all of the instructions in this handout EXACTLY as they are written. Do NOT eat any solid food the ENTIRE day before your colonoscopy. Drink only clear liquids. Buy your bowel preparation at least 5 days before your colonoscopy. TRANSPORTATION on the Day of Your Exam A responsible person MUST be present with you at Check In prior to your colonoscopy and REMAIN in the endoscopy area until you are discharged. You are NOT ALLOWED to drive, take a taxi or bus, or leave the Endoscopy Center ALONE. If you do not have a responsible cdl b driver (family member or friend) with you to take you home, your exam cannot be done with sedation and will be cancelled. Please bring a list of all of your current medications, including any Over-the Counter medications with you. Medications If you take insulin, diabetic medications or blood thinners such as Coumadin (warfarin), Plavix (clopidogrel), Ticlid (ticlopidine hydrochloride), Agrylin (anagrelide), Xarelto (Rivaroxaban), Pradaxa (Dabigatran), Eliquis (Apixaban), and Effient (Prasugrel). You MUST call the doctors who orders those medicines for instructions on altering the dosage before your colonoscopy. All other medications should be taken the day of the exam with a sip of water including ASPIRIN. Five (5) Days Before Your Colonoscopy Do NOT take medicines that stop diarrhea - such as Imodium, Kaopectate, or Pepto Bismol. Do NOT take fiber supplements - such as Metamucil, Citrucel, or Perdiem. Do NOT take products that contain iron - such as multi-vitamins (the label lists what is in the products). Do NOT take Vitamin E. Buy the prescription bowel preparation solution at your local pharmacy or drugstore pharmacy. 1 10/2019 Bowel Preparation Instructions for: Golytely, Nulytely, Trilyte or Colyte (polyethylene glycol 3350 and electrolytes) Three (3) Days Before Your Colonoscopy Do NOT eat high-fiber foods - such as popcorn, beans, seeds (flax, sunflower, quinoa), multigrain bread, nuts, salad/vegetables, or fresh and dried fruit. One (1) Day Before Your Colonoscopy Only drink clear liquids the ENTIRE DAY before your colonoscopy. Do NOT eat any solid foods. Drink at least 8 ounces of clear liquids every hour after waking up. The clear liquids you can drink include: Clear Liquid (NO RED LIQUIDS) DO NOT DRINK Gatorade, Pedialyte or Powerade Clear broth or bouillon Coffee or tea (no milk or non-dairy creamer) Carbonated and non-carbonated soft drinks Bharat-Aid or other fruit flavored drinks Strained fruit juices (no pulp) Jell-O, popsicles, hard candy Water Alcohol Milk or non-dairy creamers Noodles or vegetables in soup Juice with pulp Liquid you cannot see through Do not use tobacco/vaping products The bowel preparation solution will be consumed in two parts. Mix the solution the evening before your colonoscopy and refrigerate before drinking. You may add the flavor pack that came with the bowel preparation. Do NOT add ice, sugar or any other flavorings to the solution. Part 1 At 6:00 PM - Evening before your colonoscopy Drink an 8-oz glass of bowel preparation every 10 minutes for a total of 8 glasses. You may continue to drink clear liquids until midnight. Part 2 On the day of your colonoscopy you may drink clear liquids up to (three) 3 hours before your procedure. 4 1/2 hours before your colonoscopy Drink an 8-oz glass of bowel preparation every 10 minutes for a total of 8 glasses. Fifteen (15) minutes later, drink an 8-oz glass of clear liquids every 15 minutes for a total of 2 glasses. You may continue to drink clear liquids up to (three) 3 hours before your exam. 2 10/2019 documented in this encounter [facility] 02-14-2023 Miscellaneous Notes Patient has been identified by name and date of : Yes Requested Prescriptions Pending Prescriptions Disp Refills donepezil (ARICEPT) 10 mg tablet 30 tablet 5 Sig: Take 1 tablet by mouth daily at bedtime. RX INSTRUCTIONS: Patient aware RX will be sent to pharmacy. No need to notify patient. Antionette Coleman MA Tavo: 10/2022 Nov: 03/2023 Last refill; 11/2022 30 day supply 5 refills sent to [facility] documented in this encounter [facility] 02-14-2023 Miscellaneous Notes The following approved medication requests have been transmitted electronically. Requested Prescriptions Signed Prescriptions Disp Refills HYDROcodone-acetaminophen (NORCO) 5-325 mg per tablet 60 tablet 0 Sig: Take 1 tablet by mouth twice daily as needed for up to 30 days. Authorizing Provider: LENO BRIGGS MD PDMP website checked and validated. All prescriptions have been APPROPRIATELY filled. No suspicious activity was identified. 02/14/2023 by Leno Briggs MD Patient has been identified by name and date of : Yes Requested Prescriptions Pending Prescriptions Disp Refills HYDROcodone-acetaminophen (NORCO) 5-325 mg per tablet 60 tablet 0 Sig: Take 1 tablet by mouth twice daily as needed for up to 30 days. RX INSTRUCTIONS: Patient aware RX will be sent to pharmacy. No need to notify patient. Antionette Coleman MA Tavo: 10/2022 Nov: 03/2023 Last refill; 01/2023 documented in this encounter [facility] 02-11-2023 Miscellaneous Notes This patient gave consent to this Medical Advice Message and is aware that it may result in a bill to their insurance, as well as the possibility of receiving a bill for a copay and/or deductible. They are an established patient, but are not seeking information exclusively about a problem treated during an in person or video visit in the last seven days. I did not recommend an in person or video visit within seven days of my reply. See the Jigsaw24 message reply for my assessment and plan. I spent a total of 5 minutes reviewing the patient's prior medical records and current request for medical advice, prescribing medications or ordering tests (if applicable), replying to the patient, and documenting the encounter. Eufemia Chapa APRN.CARINE documented in this encounter [facility] 02-10-2023 Miscellaneous Notes TAVO 12/23/22 with RR Appointment scheduled 03/11/23 with JAX Please advise. Thank you. MODESTO Gupta documented in this encounter [facility] 02-09-2023 History and physical note COLORECTAL SURGERY NEW VIRTUAL VISIT I have communicated my name and active licensure. The patient's identity and physical location were verified at the time of this visit. Either the patient or their legal truck sales representative has been informed of the risks and benefits of -- and alternatives to -- treatment through a remote evaluation and consents to proceed with the evaluation remotely. I had a virtual visit with Ms. Singh today. Her local doctors have given her a diagnosis of possible colovesical fistula. HISTORY: Robbin Singh is a 82 year old female who presents for possible colovesical fistula with stool from vagina. She thought she had a urinary tract infection but urine culture returned negative. Patient has dementia and is daughter is rn progressive care. She noticed feces inside her vagina. She notices stool on toilet paper after wiping. Patient's sister concerned she may have anal fissures/fistula. She has a history of mixed incontinence and wears Depends. She started having stool with wiping after urination about 5 weeks ago. She has had a laparoscopic cholecystectomy about 25 years ago. She denies abdominal pain. She has a history of colon polyps, but has not had a colonoscopy since 2016, when she had multiple polyps. Has a bowel movement every 2-3 days. She does have some incontinence but thinks this is mostly incontinence of urine. 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 Bilateral leg edema 07/31/2019 Bilateral primary osteoarthritis of knee 03/26/2019 Cervical spondylosis with myelopathy 07/29/2015 Chronic diastolic heart failure (HCC), mild. 08/27/[address] Bravo. Chronic pain of both knees 11/16/2019 CKD (chronic kidney disease) stage 3, GFR 30-59 ml/min ([facility]) 01/01/2019 COPD with chronic bronchitis ([facility]) 02/15/2017 Dr. Brito Current use of proton pump inhibitor 11/25/2016 Mg checked 11/2017 DDD (degenerative disc disease), cervical 07/29/2015 DDD (degenerative disc disease), lumbar 05/08/2013 Diabetes mellitus type 2 in obese ([facility]) 06/2015 a1c 6.5% Diabetic eye exam ([facility]) 03/15/2017 Last done: 10/24/2019 No Retinopathy Essential hypertension 08/17/2012 Ex-smoker 07/21/2017 Started around age 21 up to 2.3-3 PPD, Quit around age 57 Frequency of micturition 12/27/2016 Frequent falls 05/15/2019 GERD without esophagitis 11/25/[address] Slade Hearing loss in left ear Hip pain 12/23/2014 History of melanoma Interstitial cystitis Lumbar radiculopathy 04/29/2014 Lumbar spondylosis Lymphadenopathy of left cervical region 12/18/2013 MCI (mild cognitive impairment) 01/01/2019 Mechanical back pain 12/08/[address] Quezada for pain management. Medicare annual wellness visit, subsequent 12/05/2017 Medicare part B: 07/08/2005 last done:01/04/2020 Mixed hyperlipidemia 08/17/2012 Neuropathic pain 12/08/2012 Obesity, Class III, BMI >= 40 06/26/2018 TACO (obstructive sleep apnea) DME [employer] [facility] [phone] Pain due to total left knee replacement (HCC) 06/08/2018 Personal history of colonic polyps 01/23/2016 Primary insomnia 03/16/2017 [facility] 06/26/2018 recommended Klonopin every other day for a week and then just as needed. Primary osteoarthritis of right knee 07/13/2016 Pulmonary hypertension (HCC) 05/19/2022 Seeing pulm and cardio Pulmonary nodules 03/03/2013 Incidental non-calcified nodules 10/09/2012. Repeat CT due 06/2013 Recurrent major depressive disorder, in full remission (HCC) 08/17/2012 Rheumatoid arthritis(714.0) Spondylosis of lumbar region without myelopathy or radiculopathy 05/28/2015 Status post total left knee replacement 06/08/2018 Stress incontinence 11/21/[address] Armas. Thyroid nodule 11/15/2018 Stable on US 2017 Type 2 diabetes mellitus with stage 3 chronic kidney disease, without long-term current use of insulin ([facility]) 06/06/2017 Urge incontinence 11/21/2012 PAST SURGICAL HISTORY Procedure Laterality Date ARTHRP KNE CONDYLE&PLATU MEDIAL&LAT COMPARTMENTS Left 06/08/2012 CHOLECYSTECTOMY HX 10/30/1997 COLONOSCOPY & POLYPECTOMY ~2007 2 polyps COLONOSCOPY & POLYPECTOMY ~2001 7 polyps COLONOSCOPY & POLYPECTOMY 11/30/2011 COLONOSCOPY FLX DX W/COLLJ SPEC WHEN PFRMD 11/29/12 Colonoscopy repeat 3 years COLONOSCOPY FLX DX W/COLLJ SPEC WHEN PFRMD 01/28/16 Colonoscopy with mac CYSTOSCOPY 09/21/12 EGD 10/17/2011 Dr Negrete in [place] ESOPHAGOGASTRODUODENOSCOPY TRANSORAL DIAGNOSTIC 05/16/2014 EGD ESOPHAGOGASTRODUODENOSCOPY TRANSORAL DIAGNOSTIC 09/12/14 EGD ESOPHAGOGASTRODUODENOSCOPY TRANSORAL DIAGNOSTIC 01/06/2017 EGD ESOPHAGOGASTRODUODENOSCOPY TRANSORAL DIAGNOSTIC 07/21/2020 EGD REMOVE CATARACT, INSERT LENS, INTRACAPSUL Bilateral 2008 Current Outpatient Medications Medication Sig Dispense Refill losartan (COZAAR) 50 mg tablet Take 1 tablet by mouth once daily. 90 tablet 1 lidocaine-prilocaine (EMLA) 2.5-2.5 % cream Apply to affected area as needed. 30 g 0 cephALEXin (KEFLEX) 250 mg capsule Take 1 capsule by mouth once daily. 30 capsule 2 albuterol (PROVENTIL) 2.5 mg /3 mL (0.083 %) nebulizer solution Use 3 mL via nebulizer every 6 hours as needed for wheezing/shortness of breath. Use over 5-15minutes. 300 mL 0 isosorbide mononitrate ER (IMDUR) 30 mg 24 hr tablet TAKE 1 TABLET BY MOUTH ONCE DAILY 90 tablet 3 HYDROcodone-acetaminophen (NORCO) 5-325 mg per tablet Take 1 tablet by mouth twice daily as needed for up to 30 days. 60 tablet 0 amoxicillin-clavulanic acid (AUGMENTIN) 875-125 mg per tablet Take 1 tablet by mouth every 12 hours. metroNIDAZOLE (FLAGYL) 500 mg tablet Take [address]op[address] (PROTONIX) 40 mg tablet Take 1 tablet by mouth twice daily. 180 tablet 1 atorvastatin (LIPITOR) 40 mg tablet Take 1 tablet by mouth once daily. 90 tablet 1 furosemide (LASIX) 20 mg tablet Take 1 tablet by mouth twice daily. 180 tablet 1 furosemide (LASIX) 20 mg tablet Take 1 tablet by mouth twice daily. 30 tablet 0 pioglitazone (ACTOS) 15 mg tablet Take 1 tablet by mouth once daily. 90 tablet 5 donepezil (ARICEPT) 10 mg tablet Take 1 tablet by mouth daily at bedtime. 30 tablet 5 sertraline (ZOLOFT) 50 mg tablet Take 1 tablet by mouth once daily. 90 tablet 1 metFORMIN ER (GLUCOPHAGE XR) 500 mg 24 hr tablet Take 2 tablets by mouth daily with dinner. 180 tablet 1 magnesium oxide 200 mg magnesium tab Take 1 tablet by mouth once daily. 30 tablet 5 MEDICAL SUPPLY One motorized scooter appropriate for weight (293 lbs). Patient needs this medically due to the chronic pain she has related to arthritis in multiple joints such as her back and knees which limits her mobility, quality of life and increase risck for falls. Dx:M12.9, M25.561, M50.30, M51.36, M54.9, R29.6 1 Each 0 flash glucose scanning reader (FREESTYLE ADELINA 2 READER) Last A1c 9.8, Dx 11.22 no insulin. Is to check insulin fasting and 2 hrs after lunch and dinner. (Patient taking differently: Last A1c 9.8, Dx 11.22 no insulin. Is to check insulin fasting and 2 hrs after lunch and dinner.) 1 Each 0 flash glucose sensor (FREESTYLE ADELINA 2 SENSOR) kit Apply new sensor every two weeks. Last A1c 9.8, Dx 11.22 no insulin. Is to check insulin fasting and 2 hrs after lunch and dinner. (Patient taking differently: Apply new sensor every two weeks. Last A1c 9.8, Dx 11.22 no insulin. Is to check insulin fasting and 2 hrs after lunch and dinner.) 2 Each 11 spironolactone (ALDACTONE) 25 mg tablet Take 1 tablet by mouth once daily. 90 tablet 1 diclofenac (VOLTAREN ARTHRITIS PAIN) 1 % topical gel Apply 4 g to affected area four times daily. blood sugar diagnostic (BLOOD GLUCOSE TEST) test strip Test blood sugar(s) 2 times daily: fasting and two hrs after a large meal . Dx: Type 2 DM - Uncontrolled E11.65 Insulin: No (Patient taking differently: Test blood sugar(s) 2 times daily: fasting and two hrs after a large meal . Dx: Type 2 DM - Uncontrolled E11.65 Insulin: No) 100 Strip 11 Lancets lancets Test blood sugar(s) 2 times daily: fasting and two hrs after a large meal . Dx: Type 2 DM - Uncontrolled E11.65 Insulin: No 100 Each 11 albuterol HFA (PROAIR HFA) 90 mcg/actuation inhaler Inhale 2 Puffs as instructed every 4 hours as needed for wheezing/shortness of breath (With Spacer). 3 Inhaler 3 Lancing Device with Lancets (ACCU-CHEK SOFT DEV LANCETS) 1 Device once daily. Lancet device to use with Accuchek lancets DX E11.22 Insulin No (Patient taking differently: 1 Device once daily. Lancet device to use with Accuchek lancets DX E11.22 Insulin No) 1 Kit 0 Walker (ULTRA-LIGHT ROLLATOR) [facility] One Rolator with seat. Dx: J44.9, M54.9, M12.9 and R29.6 1 Device 0 Calcium Citrate-Vitamin D3 (CITRACAL+D) 315 mg- 250 unit tab Take by mouth. Nebulizer NEBULIZER FOR HOME USE. DX: J44.9 1 Device 0 aspirin 81 mg chewable tablet Take 81 mg by mouth once daily. OMEGA-3 FATTY ACIDS (FISH OIL CONCENTRATE ORAL) Take 1 tablet by mouth once daily. Current Facility-Administered Medications Medication Dose Route Frequency Provider Last Rate Last Admin perflutren lipid microspheres 1.3 mL in NaCl (PF) 0.9% 10 mL injection (DEFINITY) INTRAVENOUS DIRECTED PRN Stephani Crooks PA-C sodium chloride 0.9 % (flush) 10 mL (BD POSIFLUSH) 10 mL INTRAVENOUS DIRECTED PRN Stephani Crooks PA-C REVIEW OF SYSTEMS: PAIN ASSESSMENT: Negative for pain, history of chronic pain, or current treatment for a chronic pain condition. GENERAL: No weight loss, malaise or fevers RESPIRATORY: Negative for cough, hemoptysis, wheezing, COPD, dyspnea or shortness of breath. States history of copd CARDIOVASCULAR: Negative for chest pain, leg swelling, hypertension, CHF or palpitations. Does carry history of CHF. GI: No nausea, vomiting, or diarrhea : No history of dysuria, frequency or incontinence LENS BLANK GAUGER: stool per vagina per HPI MUSCULOSKELETAL: Negative for joint pain or swelling, back pain or muscle pain SKIN: Negative for lesions, rash, and itching ENDOCRINE: Negative for cold or heat intolerance, polyuria, polydipsia and goiter NEURO: No history of headaches, syncope, paralysis, seizures or tremors PHYSICAL FINDINGS OF NOTE: Patient reported weight 280 lbs General - Normal, healthy, cooperative, in no acute distress Able to interact verbally by video conference Pulmonary - respiratory effort normal Abdominal - Performed Obese, Visible protrusions or hernias: No Incisions/scars: None, Areas of pain/tenderness: denies Motor - patient seen sitting with Normal appearing strength and coordination Anorectal exam - Not Performed Medical Decision Making: Assessment Assessment & Diagnosis: Robbin Singh is a 82 year old female with 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 Multiple comorbid conditions including type IV obesity, dementia, diabetes. Has had prior colon polyps as well and no colonoscopy in past several years. I had a discussion with Robbin and her daughters about options given her high risk for both surgery and non-surgical management. On discussing surgery she is adamantly against having a stoma. I discussed with her that sigmoid resection would be high risk in her, and while it wouldn't necessarily mean she'd need a stoma, that I can't promise it might not be needed based on operative findings or post operative course. She told me that she'd rather risk non-operative treatment than risk a surgery that may require a stoma. I told them of likely outcome of non-operative management- increasingly frequent urinary infections, possibly sepsis, that could be managed with antibiotics but will ultimately become resistent and more life-threatening. She and her daughters wish to consider their options and discuss again. Data Reviewed: Tests & Documents Reviewed/ordered: Review of Imaging: CT Abdomen, CT Pelvis Review of Labs: CBC, BMP I have independently interpreted: CT Abdomen, CT Pelvis Treatment plan: - Plan to get colonoscopy locally to rule out malignancy given polyp history - Re-visit the discussion of surgery following colonoscopy. Discussed symptoms to be aware of- fevers, dysuria, urinary frequency. Risk of morbidity, mortality and/or complications of treatment plan: high I spent a total of 45 minutes on the date of the service which included preparing to see the patient, [id number] patient care, completing clinical documentation, obtaining and/or reviewing separately obtained history, performing a medically appropriate examination, counseling and educating the patient/family/caregiver, ordering medications, tests, or procedures, communicating with other HCPs (not separately reported), independently interpreting results (not separately reported), communicating results to the patient/family/caregiver, and care coordination (not separately reported). documented in this encounter [facility] 02-03-2023 Miscellaneous Notes Patient phones requesting refills as follows: Patient comment: Is it possible to have this sent to [facility] in [place], for maybe a2-week supply, and the normal 90-day refill to [facility]? I thought this was on auto-delivery through them but they haven't sent it Requested Prescriptions Pending Prescriptions Disp Refills losartan (COZAAR) 50 mg tablet 90 tablet 1 Sig: Take 1 tablet by mouth once daily. TAVO-12/23/22 Labs-11/04/22 NOV-03/11/23 Med filled 06/14/22 Please review and advise. Brianne Chiang LPN documented in this encounter [facility] 01-31-2023 Miscellaneous Notes Emla Rx sent by PCP on 01/30 Charity Das APRN.MOBI[employer] HOM[employer] REPAIRER documented in this encounter [facility] 01-28-2023 Miscellaneous Notes This patient gave consent to this Medical Advice Message and is aware that it may result in a bill to their insurance, as well as the possibility of receiving a bill for a copay and/or deductible. They are an established patient, but are not seeking information exclusively about a problem treated during an in person or video visit in the last seven days. I did not recommend an in person or video visit within seven days of my reply. See the [email or web address] message reply for my assessment and plan. I spent a total of 5 minutes reviewing the patient's prior medical records and current request for medical advice, prescribing medications or ordering tests (if applicable), replying to the patient, and documenting the encounter. Eufemia Chapa APRN.CARINE documented in this encounter [facility] 01-26-2023 Miscellaneous Notes Please see TEL ENC for today regarding RN's call to pt to schedule nurse visit for urine specimen collection. Jason Mcfadden RN Discussed with Eufemia Chapa DNP. Recommend nurse visit for straight cath urine specimen. Patient has colovesical fistula and clean catch is not recommended. Eloisa Ferrara APRN.CNP documented in this encounter [facility] 01-26-2023 Miscellaneous Notes RN's call to pt to schedule office visit for urine specimen collection went to [facility]. RN left message requesting return call from pt to schedule nurse visit. Call terminated. documented in this encounter [facility] 01-25-2023 Note HNO ID: [id number] Author: Leesa Ramirez MD Service: ? Author Type: Physician Type: Progress Notes Filed: 01/25/2023 3:26 PM Note Text: Robbin Torres Allan 1940 REFERRING PHYSICIAN: Eufemia Chapa APRN.CNP CHIEF COMPLAINT: Consult (Colovesical fistula) HPI: The patient is a 82 year old female presents with colovesical fistula. She has noted symptoms for about two months. She underwent a CT scan at [facility] on 12/31/2022 with findings of mid sigmoid diverticulitis with probable fistula to the adjacent urinary bladder. Associated colonic wall thickening and adjacent stranding noted. There is under distension of the urinary bladder with significant wall edema and adjacent inflammatory change. Patient had been scheduled for an appointment at [facility] in [place], but the family deferred this and preferred to be seen in [place]. The patient had also been scheduled for an appointment at [facility], but deferred this. The patient has been symptomatic with burning/dysuria. Also notes feces from vagina. Patient also has dementia. PAST MEDICAL HISTORY Diagnosis Date Anxiety and depression 01/01/2019 Arthritis of shoulder region, degenerative right Corticosteroid 09/20/14, left corticosteroid 10/07/14 Arthritis, multiple joint involvement 01/16/2018 Advised tylenol Arthritis 11/15/2018 and to avid NSAID's with her Hx of stomach issues and being diabetic for risk of renal impairment. Bilateral leg edema 07/31/2019 Bilateral primary osteoarthritis of knee 03/26/2019 Cervical spondylosis with myelopathy 07/29/2015 Chronic diastolic heart failure (HCC), mild. 08/27/[address] Bravo. Chronic pain of both knees 11/16/2019 CKD (chronic kidney disease) stage 3, GFR 30-59 ml/min ([facility]) 01/01/2019 COPD with chronic bronchitis ([facility]) 02/15/2017 Dr. Brito Current use of proton pump inhibitor 11/25/2016 Mg checked 11/2017 DDD (degenerative disc disease), cervical 07/29/2015 DDD (degenerative disc disease), lumbar 05/08/2013 Diabetes mellitus type 2 in obese ([facility]) 06/2015 a1c 6.5% Diabetic eye exam ([facility]) 03/15/2017 Last done: 10/24/2019 No Retinopathy Essential hypertension 08/17/2012 Ex-smoker 07/21/2017 Started around age 21 up to 2.3-3 PPD, Quit around age 57 Frequency of micturition 12/27/2016 Frequent falls 05/15/2019 GERD without esophagitis 11/25/[address] Slade Hearing loss in left ear Hip pain 12/23/2014 History of melanoma Interstitial cystitis Lumbar radiculopathy 04/29/2014 Lumbar spondylosis Lymphadenopathy of left cervical region 12/18/2013 MCI (mild cognitive impairment) 01/01/2019 Mechanical back pain 12/08/[address] Quezada for pain management. Medicare annual wellness visit, subsequent 12/05/2017 Medicare part B: 07/08/2005 last done:01/04/2020 Mixed hyperlipidemia 08/17/2012 Neuropathic pain 12/08/2012 Obesity, Class III, BMI >= 40 06/26/2018 TACO (obstructive sleep apnea) DME [employer] fx [phone] Pain due to total left knee replacement (HCC) 06/08/2018 Personal history of colonic polyps 01/23/2016 Primary insomnia 03/16/2017 [facility] 06/26/2018 recommended Klonopin every other day for a week and then just as needed. Primary osteoarthritis of right knee 07/13/2016 Pulmonary hypertension (HCC) 05/19/2022 Seeing pulm and cardio Pulmonary nodules 03/03/2013 Incidental non-calcified nodules 10/09/2012. Repeat CT due 06/2013 Recurrent major depressive disorder, in full remission ([facility]) 08/17/2012 Rheumatoid arthritis(714.0) Spondylosis of lumbar region without myelopathy or radiculopathy 05/28/2015 Status post total left knee replacement 06/08/2018 Stress incontinence 11/21/[address] Armas. Thyroid nodule 11/15/2018 Stable on 2017 Type 2 diabetes mellitus with stage 3 chronic kidney disease, without long-term current use of insulin ([facility]) 06/06/2017 Urge incontinence 11/21/2012 PAST SURGICAL HISTORY Procedure Laterality Date ARTHRP KNE CONDYLEANDPLATU MEDIALANDLAT COMPARTMENTS Left 06/08/2012 CHOLECYSTECTOMY HX 10/30/1997 COLONOSCOPY AND POLYPECTOMY ~2007 2 polyps COLONOSCOPY AND POLYPECTOMY ~2001 7 polyps COLONOSCOPY AND POLYPECTOMY 11/30/2011 COLONOSCOPY FLX DX W/COLLJ SPEC WHEN PFRMD 11/29/12 Colonoscopy repeat 3 years COLONOSCOPY FLX DX W/COLLJ SPEC WHEN PFRMD 01/28/16 Colonoscopy with mac CYSTOSCOPY 09/21/12 EGD 10/17/2011 Dr Negrete in [place] ESOPHAGOGASTRODUODENOSCOPY TRANSORAL DIAGNOSTIC 05/16/2014 EGD ESOPHAGOGASTRODUODENOSCOPY TRANSORAL DIAGNOSTIC 09/12/14 EGD ESOPHAGOGASTRODUODENOSCOPY TRANSORAL DIAGNOSTIC 01/06/2017 EGD ESOPHAGOGASTRODUODENOSCOPY TRANSORAL DIAGNOSTIC 07/21/2020 EGD REMOVE CATARACT, INSERT LENS, INTRACAPSUL Bilateral 2008 Current Outpatient Medications Medication Sig albuterol (PROVENTIL) 2.5 mg /3 mL (0.083 %) nebulizer solution Use 3 mL via nebulizer every 6 hours as needed for wheezing/shortness of breath. Use over 5-15minutes. isosorbide mononitrate ER ( (more content not included)... [facility] 01-25-2023 History of Present illness Narrative Robbin Singh 1940 REFERRING PHYSICIAN: Eufemia Chapa APRN.MOBILE HOMES REPAIRER CHIEF COMPLAINT: Consult (Colovesical fistula) HPI: The patient is a 82 year old female presents with colovesical fistula. She has noted symptoms for about two months. She underwent a CT scan at [facility] on 12/31/2022 with findings of mid sigmoid diverticulitis with probable fistula to the adjacent urinary bladder. Associated colonic wall thickening and adjacent stranding noted. There is under distension of the urinary bladder with significant wall edema and adjacent inflammatory change. Patient had been scheduled for an appointment at [facility] in [place], but the family deferred this and preferred to be seen in [place]. The patient had also been scheduled for an appointment at [facility], but deferred this. The patient has been symptomatic with burning/dysuria. Also notes feces from vagina. Patient also has dementia. PAST MEDICAL HISTORY Diagnosis Date Anxiety and depression 01/01/2019 Arthritis of shoulder region, degenerative right Corticosteroid 09/20/14, left corticosteroid 10/07/14 Arthritis, multiple joint involvement 01/16/2018 Advised tylenol Arthritis 11/15/2018 and to avid NSAID's with her Hx of stomach issues and being diabetic for risk of renal impairment. Bilateral leg edema 07/31/2019 Bilateral primary osteoarthritis of knee 03/26/2019 Cervical spondylosis with myelopathy 07/29/2015 Chronic diastolic heart failure (HCC), mild. 08/27/[address] Bravo. Chronic pain of both knees 11/16/2019 CKD (chronic kidney disease) stage 3, GFR 30-59 ml/min ([facility]) 01/01/2019 COPD with chronic bronchitis ([facility]) 02/15/2017 Dr. Brito Current use of proton pump inhibitor 11/25/2016 Mg checked 11/2017 DDD (degenerative disc disease), cervical 07/29/2015 DDD (degenerative disc disease), lumbar 05/08/2013 Diabetes mellitus type 2 in obese ([facility]) 06/2015 a1c 6.5% Diabetic eye exam ([facility]) 03/15/2017 Last done: 10/24/2019 No Retinopathy Essential hypertension 08/17/2012 Ex-smoker 07/21/2017 Started around age 21 up to 2.3-3 PPD, Quit around age 57 Frequency of micturition 12/27/2016 Frequent falls 05/15/2019 GERD without esophagitis 11/25/[address] Slade Hearing loss in left ear Hip pain 12/23/2014 History of melanoma Interstitial cystitis Lumbar radiculopathy 04/29/2014 Lumbar spondylosis Lymphadenopathy of left cervical region 12/18/2013 MCI (mild cognitive impairment) 01/01/2019 Mechanical back pain 12/08/[address] Quezada for pain management. Medicare annual wellness visit, subsequent 12/05/2017 Medicare part B: 07/08/2005 last done:01/04/2020 Mixed hyperlipidemia 08/17/2012 Neuropathic pain 12/08/2012 Obesity, Class III, BMI >= 40 06/26/2018 TACO (obstructive sleep apnea) DME [employer] fx [phone] Pain due to total left knee replacement (HCC) 06/08/2018 Personal history of colonic polyps 01/23/2016 Primary insomnia 03/16/2017 Brain center 06/26/2018 recommended Klonopin every other day for a week and then just as needed. Primary osteoarthritis of right knee 07/13/2016 Pulmonary hypertension ([facility]) 05/19/2022 Seeing pulm and cardio Pulmonary nodules 03/03/2013 Incidental non-calcified nodules 10/09/2012. Repeat CT due 06/2013 Recurrent major depressive disorder, in full remission ([facility]) 08/17/2012 Rheumatoid arthritis(714.0) Spondylosis of lumbar region without myelopathy or radiculopathy 05/28/2015 Status post total left knee replacement 06/08/2018 Stress incontinence 11/21/[address] Armas. Thyroid nodule 11/15/2018 Stable on US 2017 Type 2 diabetes mellitus with stage 3 chronic kidney disease, without long-term current use of insulin (HCC) 06/06/2017 Urge incontinence 11/21/2012 PAST SURGICAL HISTORY Procedure Laterality Date ARTHRP KNE CONDYLE&PLATU MEDIAL&LAT COMPARTMENTS Left 06/08/2012 CHOLECYSTECTOMY HX 10/30/1997 COLONOSCOPY & POLYPECTOMY ~2007 2 polyps COLONOSCOPY & POLYPECTOMY ~2001 7 polyps COLONOSCOPY & POLYPECTOMY 11/30/2011 COLONOSCOPY FLX DX W/COLLJ SPEC WHEN PFRMD 11/29/12 Colonoscopy repeat 3 years COLONOSCOPY FLX DX W/COLLJ SPEC WHEN PFRMD 01/28/16 Colonoscopy with mac CYSTOSCOPY 09/21/12 EGD 10/17/2011 Dr Negrete in [place] ESOPHAGOGASTRODUODENOSCOPY TRANSORAL DIAGNOSTIC 05/16/2014 EGD ESOPHAGOGASTRODUODENOSCOPY TRANSORAL DIAGNOSTIC 09/12/14 EGD ESOPHAGOGASTRODUODENOSCOPY TRANSORAL DIAGNOSTIC 01/06/2017 EGD ESOPHAGOGASTRODUODENOSCOPY TRANSORAL DIAGNOSTIC 07/21/2020 EGD REMOVE CATARACT, INSERT LENS, INTRACAPSUL Bilateral 2008 Current Outpatient Medications Medication Sig albuterol (PROVENTIL) 2.5 mg /3 mL (0.083 %) nebulizer solution Use 3 mL via nebulizer every 6 hours as needed for wheezing/shortness of breath. Use over 5-15minutes. isosorbide mononitrate ER (IMDUR) 30 mg 24 hr tablet TAKE 1 TABLET BY MOUTH ONCE DAILY HYDROcodone-acetaminophen (NORCO) 5-325 mg per tablet Take 1 tablet by mouth twice daily as needed for up to 30 days. amoxicillin-clavulanic acid (AUGMENTIN) 875-125 mg per tablet Take 1 tablet by mouth every 12 hours. metroNIDAZOLE (FLAGYL) 500 mg tablet Take [address] (PROTONIX) 40 mg tablet Take 1 tablet by mouth twice daily. atorvastatin (LIPITOR) 40 mg tablet Take 1 tablet by mouth once daily. furosemide (LASIX) 20 mg tablet Take 1 tablet by mouth twice daily. pioglitazone (ACTOS) 15 mg tablet Take 1 tablet by mouth once daily. donepezil (ARICEPT) 10 mg tablet Take 1 tablet by mouth daily at bedtime. sertraline (ZOLOFT) 50 mg tablet Take 1 tablet by mouth once daily. metFORMIN ER (GLUCOPHAGE XR) 500 mg 24 hr tablet Take 2 tablets by mouth daily with dinner. magnesium oxide 200 mg magnesium tab Take 1 tablet by mouth once daily. MEDICAL SUPPLY One motorized scooter appropriate for weight (293 lbs). Patient needs this medically due to the chronic pain she has related to arthritis in multiple joints such as her back and knees which limits her mobility, quality of life and increase risck for falls. Dx:M12.9, M25.561, M50.30, M51.36, M54.9, R29.6 losartan (COZAAR) 50 mg tablet Take 1 tablet by mouth once daily. flash glucose scanning reader (FREESTYLE ADELINA 2 READER) Last A1c 9.8, Dx 11.22 no insulin. Is to check insulin fasting and 2 hrs after lunch and dinner. (Patient taking differently: Last A1c 9.8, Dx 11.22 no insulin. Is to check insulin fasting and 2 hrs after lunch and dinner.) flash glucose sensor (FREESTYLE ADELINA 2 SENSOR) kit Apply new sensor every two weeks. Last A1c 9.8, Dx 11.22 no insulin. Is to check insulin fasting and 2 hrs after lunch and dinner. (Patient taking differently: Apply new sensor every two weeks. Last A1c 9.8, Dx 11.22 no insulin. Is to check insulin fasting and 2 hrs after lunch and dinner.) spironolactone (ALDACTONE) 25 mg tablet Take 1 tablet by mouth once daily. diclofenac (VOLTAREN ARTHRITIS PAIN) 1 % topical gel Apply 4 g to affected area four times daily. blood sugar diagnostic (BLOOD GLUCOSE TEST) test strip Test blood sugar(s) 2 times daily: fasting and two hrs after a large meal . Dx: Type 2 DM - Uncontrolled E11.65 Insulin: No (Patient taking differently: Test blood sugar(s) 2 times daily: fasting and two hrs after a large meal . Dx: Type 2 DM - Uncontrolled E11.65 Insulin: No) Lancets lancets Test blood sugar(s) 2 times daily: fasting and two hrs after a large meal . Dx: Type 2 DM - Uncontrolled E11.65 Insulin: No albuterol HFA (PROAIR HFA) 90 mcg/actuation inhaler Inhale 2 Puffs as instructed every 4 hours as needed for wheezing/shortness of breath (With Spacer). Lancing Device with Lancets (ACCU-CHEK SOFT DEV LANCETS) 1 Device once daily. Lancet device to use with Accuchek lancets DX E11.22 Insulin No (Patient taking differently: 1 Device once daily. Lancet device to use with Accuchek lancets DX E11.22 Insulin No) Walker (ULTRA-LIGHT ROLLATOR) [facility] One Rolator with seat. Dx: J44.9, M54.9, M12.9 and R29.6 Calcium Citrate-Vitamin D3 (CITRACAL+D) 315 mg- 250 unit tab Take by mouth. Nebulizer NEBULIZER FOR HOME USE. DX: J44.9 aspirin 81 mg chewable tablet Take 81 mg by mouth once daily. OMEGA-3 FATTY ACIDS (FISH OIL CONCENTRATE ORAL) Take 1 tablet by mouth once daily. furosemide (LASIX) 20 mg tablet Take 1 tablet by mouth twice daily. ALLERGIES: Bactrim [Sulfamethoxazole-Trimethoprim], Codeine, Garlic Oil, Lexapro [Escitalopram], Oxybutynin, Tramadol, and Zoloft [Sertraline Hcl] PERSONAL HISTORY: Social History Tobacco Use Smoking status: Former Packs/day: 3.00 Years: 35.00 Pack years: 105.00 Types: Cigarettes Quit date: 09/22/1997 Years since quittin.3 Smokeless tobacco: Never Vaping Use Vaping Use: Never used Substance Use Topics Alcohol use: No Drug use: No FAMILY HISTORY Problem Relation Age of Onset Hypertension Mother Heart Mother Lipids Mother HIGH CHOLESTEROL Heart Father SD Ischemic Heart Disease Father STROKE other (diabetic) Father Diabetes Sister Diabetes Sister Breast Cancer Sister The review of systems data was entered by the nurse and reviewed by ms Nursing Notes: Beata Doshi RN 01/25/2023 1:26 PM Signed REVIEW OF SYSTEMS: General: The patient NOTES fatigue, denies weight loss, denies weight gain, denies feeling hot, and denies feelings of cold. Eyes: The patient denies glaucoma, denies eye injury/surgery, does not wear glasses or contacts. Ear/Nose/Throat: The patient denies allergies, denies hayfever, denies ear infections, and denies bloody noses. Cardiovascular: The patient denies chest pain, denies heart disease, NOTES high blood pressure,denies cardiac stent, denies prior heart attack, denies irregular heart beat, denies high cholesterol, denies poor circulation, NOTES heart failure, other cardiac issues, denies claudication, denies cold feet, denies peripheral arterial stent. Respiratory: The patient denies tuberculosis, denies pneumonia, denies frequent cough, denies pulmonary embolism, denies shortness of breath, and denies coughing up blood. Gastrointestinal: The patient denies difficulty swallowing, NOTES acid reflux, denies ulcers, denies vomiting, denies jaundice/hepatitis, denies gallbladder problems, denies black or tarry stools, denies hemorrhoids, denies bleeding from rectum, NOTES diverticulitis, denies constipation, denies diarrhea, denies loss of stool control, and denies hernias. Kidney/Bladder: The patient denies kidney stones, NOTES urine infections, and denies bloody urine. Skin: The patient NOTES a history of skin cancer, denies bleeding/changing moles, and denies a history of skin rash. Neurologic: The patient denies a history of epilepsy/convulsions, denies headaches, denies head/spinal injuries, and denies stroke/TIA. Psychiatric: The patient denies psychiatric medications, NOTES depression, and denies voices, denies substance abuse. Endocrine: The patient denies thyroid disorders, NOTES diabetes, and denies hormonal problems. Hematologic: The patient denies a history of bruising, denies bleeding, and denies anemia, denies blood clots. Infections: The patient denies a history of measles and mumps, denies rheumatic fever, and denies sexually transmitted diseases. Musculoskeletal: The patient denies back pain/injury, NOTES back problems, denies sciatica, NOTES knee/foot trouble, NOTES arthritis, or denies gout. When was patient's last Mammogram screening? Unknown Last Colonoscopy: 2019 Beata Doshi RN PHYSICAL EXAMINATION: General: The patient is 82 year old female, well nourished, well hydrated in no acute distress. The patient is oriented to time, place, and person. VITALS: Blood pressure 144/76, height 167.6 cm (5' 6 ), weight 130 kg (286 lb 9.6 oz). Body mass index is 46.26 kg/m . Head: Normal cephalic, atraumatic Eyes: pupils are equally round, sclera are clear/anicteric Neck is supple with no tracheal deviation Respiratory: Normal respiratory excursion and pattern. Abdominal exam: obese Extremities: no clubbing, cyanosis or edema. Neuro: non focal Psych: normal mood RADIOLOGIC STUDIES: As Noted Assessment IMPRESSION: colovesical fistula PLAN: I have discussed the above with the patient, her daughter and her sister who are present with her. The patient has a complicated surgical issue with multiple medical co-morbidities. She would be best taken care of at a larger medical facility and also by a colo-rectal surgeon. Will try to get patient to be seen by above, as soon as available. I have also told patient that if she develops signs of infection, she should go to the nearest ED. They acknowledge the above. I have answered all questions to the patient s satisfaction and the patient has no further questions. I have confirmed and edited as necessary, the PFSH and ROS obtained by others. Consultation requested by Eufemia Chapa for an opinion regarding patient's colovesical fistula. My final recommendations will be communicated back to the requesting physician by way of shared Medical record or letter to requesting physician via US mail. . Diagnoses: (N32.1) Colovesical fistula Return to Clinic: The patient is instructed to follow-up in the clinic as per needed. Medical Decision Making: Problems: Moderate: New problem with uncertain prognosis Medical Decision Making Level: 2 - Straightforward Leesa Ramirez MD documented in this encounter [facility] 01-25-2023 Nurse Note REVIEW OF SYSTEMS: General: The patient NOTES fatigue, denies weight loss, denies weight gain, denies feeling hot, and denies feelings of cold. Eyes: The patient denies glaucoma, denies eye injury/surgery, does not wear glasses or contacts. Ear/Nose/Throat: The patient denies allergies, denies hayfever, denies ear infections, and denies bloody noses. Cardiovascular: The patient denies chest pain, denies heart disease, NOTES high blood pressure,denies cardiac stent, denies prior heart attack, denies irregular heart beat, denies high cholesterol, denies poor circulation, NOTES heart failure, other cardiac issues, denies claudication, denies cold feet, denies peripheral arterial stent. Respiratory: The patient denies tuberculosis, denies pneumonia, denies frequent cough, denies pulmonary embolism, denies shortness of breath, and denies coughing up blood. Gastrointestinal: The patient denies difficulty swallowing, NOTES acid reflux, denies ulcers, denies vomiting, denies jaundice/hepatitis, denies gallbladder problems, denies black or tarry stools, denies hemorrhoids, denies bleeding from rectum, NOTES diverticulitis, denies constipation, denies diarrhea, denies loss of stool control, and denies hernias. Kidney/Bladder: The patient denies kidney stones, NOTES urine infections, and denies bloody urine. Skin: The patient NOTES a history of skin cancer, denies bleeding/changing moles, and denies a history of skin rash. Neurologic: The patient denies a history of epilepsy/convulsions, denies headaches, denies head/spinal injuries, and denies stroke/TIA. Psychiatric: The patient denies psychiatric medications, NOTES depression, and denies voices, denies substance abuse. Endocrine: The patient denies thyroid disorders, NOTES diabetes, and denies hormonal problems. Hematologic: The patient denies a history of bruising, denies bleeding, and denies anemia, denies blood clots. Infections: The patient denies a history of measles and mumps, denies rheumatic fever, and denies sexually transmitted diseases. Musculoskeletal: The patient denies back pain/injury, NOTES back problems, denies sciatica, NOTES knee/foot trouble, NOTES arthritis, or denies gout. When was patient's last Mammogram screening? Unknown Last Colonoscopy: 2019 Beata Doshi RN documented in this encounter [facility] 01-19-2023 Miscellaneous Notes Patient has been identified by name and date of : Yes, Provider Dr. Briggs Date 01/19/23 Time 7:34 am Patient phones for refill(s): Requested Prescriptions Pending Prescriptions Disp Refills albuterol (PROVENTIL) 2.5 mg /3 mL (0.083 %) nebulizer solution 300 mL 0 Sig: Use 3 mL via nebulizer every 6 hours as needed for wheezing/shortness of breath. Use over 5-15minutes. Date of last office visit in primary care: 12/23/22 next apt 03/11/23 Last 2 Encounter Wt Readings: Date: Wt: 01/06/2023 127 kg (280 lb) 12/28/2022 127.1 kg (280 lb 3.2 oz) Previous labs/tests for medication: Not applicable Thank you. Shelby Rogel LPN documented in this encounter [facility] 01-18-2023 Miscellaneous Notes Unfortunately, she has to see colorectal. I know she was given a name for a colorectal surgeon in [place] so she can call that office to see if Robbin can be seen sooner there. If she has more questions, I can call her. Eufemia Chapa APRN.MOBILE HOMES REPAIRER Daughter Mariela calling to see if waiting till 03/09/23 to see Colorectal at is okay. Pt having increased pain in the vagina area due to skin is raw and now getting blood when she wipes. When urinating getting increased pain. Pt is cleaning the area after going but the Aquaphor is not working. Please advise daughter. Shelby Rogel LPN documented in this encounter [facility] 01-14-2023 Miscellaneous Notes Patient has been identified by name and date of : Yes Requested Prescriptions Pending Prescriptions Disp Refills isosorbide mononitrate ER (IMDUR) 30 mg 24 hr tablet [Pharmacy Med Name: Isosorbide Mononitrate ER 30 MG Oral Tablet Extended Release 24 Hour] 90 tablet 3 Sig: TAKE 1 TABLET BY MOUTH ONCE DAILY RX INSTRUCTIONS: Patient aware RX will be sent to pharmacy. No need to notify patient. Antionette Coleman MA Tavo; 10/2022 Nov: 03/2023 Last refill: documented in this encounter [facility] 01-06-2023 Miscellaneous Notes Et patient or daughter know pain med refill sent to [facility] Briggs here is her Mychart note. Patient Comment: This was supposed to be back-ordered from [facility] because they were out of stock, so she got them from [facility], but it's time for another refill so we want them through [facility]. If they're still sending the back-logged one that's fine, but if not, she will need a new one next week. Antionette Coleman MA Let patient know she is calling in too early for the pain medicine. Not due for a refill till 01/19/2023. She should call back 01/17/2023 to request the refill at that time. The following approved medication requests have been transmitted electronically. Requested Prescriptions Pending Prescriptions Disp Refills HYDROcodone-acetaminophen (NORCO) 5-325 mg per tablet 60 tablet 0 Sig: Take 1 tablet by mouth twice daily as needed for up to 30 days. Signed Prescriptions Disp Refills pantoprazole DR (PROTONIX) 40 mg tablet 180 tablet 1 Sig: Take 1 tablet by mouth twice daily. Authorizing Provider: LENO BRIGGS MD Patient has been identified by name and date of : Yes, Provider Dr. Briggs Date 01/05/23 Time 3:04 pm Patient phones for refill(s): Requested Prescriptions Pending Prescriptions Disp Refills pantoprazole DR (PROTONIX) 40 mg tablet 180 tablet 1 Sig: Take 1 tablet by mouth twice daily. HYDROcodone-acetaminophen (NORCO) 5-325 mg per tablet 60 tablet 0 Sig: Take 1 tablet by mouth twice daily as needed for up to 30 days. Date of last office visit in primary care: 12/23/22 next apt 01/11/23 Last 2 Encounter Wt Readings: Date: Wt: 12/28/2022 127.1 kg (280 lb 3.2 oz) 12/23/2022 129.3 kg (285 lb) Previous labs/tests for medication: Not applicable Thank you. Shelby Rogel LPN documented in this encounter [facility] 01-06-2023 Note HNO ID: [id number] Author: Eufemia Chapa APRN.MOBILE HOMES REPAIRER Service: ? Author Type: Nurse Practitioner Type: Progress Notes Filed: 01/06/2023 3:37 PM Note Text: Female Pelvic Medicine AND Reconstructive Surgery Consult CHIEF COMPLAINT: Robbin Singh is a 82 year old female who presents for consultation requested by Madalyn Degroot APRN.ROSALIND for an opinion regarding Mixed urge and stress incontinence. HISTORY OF PRESENT ILLNESS: Presents with daughter, Mariela. Robbin suffers from dementia but is quite pleasant. States she wiped yesterday after urinating and noticed stool on the toilet tissue. Daughter states this happened 3 weeks ago, not yesterday. She was evaluated by CNLeesa for vaginal burning and noted to have mejia on vaginal swab which was treated. Recently diagnosed with diverticulitis at [facility] ER visit 12/31/22. She had a CT scan which showed a acute sigmoid diverticulitis with probable fistulous connection to the adjacent urinary bladder (report scanned to chart). Robbin reports rare urinary incontinence and fecal incontinence and this is confirmed by Mariela. She does urinate frequently and has urgency. The incident 3 weeks ago of noting stool after wiping was the first time Robbin saw this. History of christ, no pelvic surgeries. Type 2 diabetes. HgbA1c 6.4, GFR 56 in 2021. BMI 51. Vaginal swabs: 12/28/22 +mejia, BV negative Urine cultures: 12/23/22 mixed microbiota 05/24/22 normal judith Medical and Symptom History: LENS BLANK GAUGER HISTORY: Last Pap: Date:2012; Last Mammogram: Her last mammogram was 2016. LMP: No LMP recorded. Patient is postmenopausal.; Menopause Yes: Menstrual history: NA; Deliveries: x 2 History of third or fourth degree laceration: No Weight of largest baby: 7 lbs Sexual function Sexually active: Not sexually active PFDI-20 Do you: Usually experience pressure in the lower abdomen? Yes, quite a bit bothersome (4) Usually experience heaviness or dullness in the pelvic area? No (0) Usually have a bulge or something falling out that you can see or feel in your vaginal area? No (0) Ever have to push on the vagina or around the rectum to have or complete a bowel movement? No (0) Usually experience a feeling of incomplete bladder emptying? Yes, quite a bit bothersome (4) Ever have to push up on a bulge in the vaginal area with your fingers to start or complete urination? No (0) Feel you need to strain too hard to have a bowel movement? No (0) Feel you have not completely emptied your bowels at the end of a bowel movement? Yes, moderately bothersome (3) Usually lose stool beyond your control if your stool is well formed? No (0) Usually lose stool beyond your control if your stool is loose? No (0) Usually lose gas from the rectum beyond your control? No (0) Usually have pain when you pass your stool? No (0) Experience a strong sense of urgency and have to hein to the bathroom to have a bowel movement? Yes, somewhat bothersome (2) Does part of your bowel ever pass through the rectum and bulge outside during or after a bowel movement? No (0) Usually experience frequent urination? Yes, quite a bit bothersome (4) Usually experience urine leakage associated with a feeling of urgency, that is, a strong sensation of needing to go to the bathroom? Yes, quite a bit bothersome (4) Usually experience urine leakage related to coughing, sneezing or laughing? Yes, moderately bothersome (3) Usually experience small amounts of urine leakage (that is, drops)? Yes, quite a bit bothersome (4) Usually experience difficulty emptying your bladder? Yes, quite a bit bothersome (4) Usually experience pain or discomfort in the lower abdomen or genital region? Yes, quite a bit bothersome (4) Do you have pain associated with your prolapse (not pressure or fullness) No PAST SURGICAL HISTORY Procedure Laterality Date ARTHRP KNE CONDYLEANDPLATU MEDIALANDLAT COMPARTMENTS Left 06/08/2012 CHOLECYSTECTOMY HX 10/30/1997 COLONOSCOPY AND POLYPECTOMY ~2007 2 polyps COLONOSCOPY AND POLYPECTOMY ~2001 7 polyps COLONOSCOPY AND POLYPECTOMY 11/30/2011 COLONOSCOPY FLX DX W/COLLJ SPEC WHEN PFRMD 11/29/12 Colonoscopy repeat 3 years COLONOSCOPY FLX DX W/COLLJ SPEC WHEN PFRMD 01/28/16 Colonoscopy with mac CYSTOSCOPY 09/21/12 EGD 10/17/2011 Dr Negrete in [place] ESOPHAGOGASTRODUODENOSCOPY TRANSORAL DIAGNOSTIC 05/16/2014 EGD ESOPHAGOGASTRODUODENOSCOPY TRANSORAL DIAGNOSTIC 09/12/14 EGD ESOPHAGOGASTRODUODENOSCOPY TRANSORAL DIAGNOSTIC 01/06/2017 EGD ESOPHAGOGASTRODUODENOSCOPY TRANSORAL DIAGNOSTIC 07/21/2020 EGD REMOVE CATARACT, INSERT LENS, INTRACAPSUL Bilateral 2008 PAST MEDICAL HISTORY Diagnosis Date Anxiety and depression 01/01/2019 Arthritis of shoulder region, degenerative right Corticosteroid 09/20/14, left corticosteroid 10/07/14 Arthritis, multiple joint involvement 01/16/2018 Advised tylenol Arthritis (more content not included)... [facility] 01-06-2023 Instructions Eufemia Chapa APRN.MOBILE HOMES REPAIRER - 01/06/2023 2:02 PM EST Consult colorectal surgery. Vulvar Care Gentle care of the vulva is best. Avoid products and other items that may be irritating. The following may be helpful in relieving or reducing symptoms: Wear 100% cotton underwear. Do not wear underwear while sleeping. Avoid douching. Avoid irritants, such as perfumes, dyes, shampoos, detergents, and deodorants. Clean the vulva with water only. Switch to 100% cotton pads if regular pads are irritating. Use lubricants during sex, but avoid lubricants with flavor or cooling/warming sensation. Rinse and pat the vulva dry after urinating. After bathing, apply a thin layer of a preservative-free oil (Aquaphor) or petroleum jelly to hold in moisture and protect the skin. Avoid using a chairman and chief executive officer to dry the vulvar area. Use cool gel packs on the vulva. documented in this encounter [facility] 01-06-2023 History of Present illness Narrative Female Pelvic Medicine & Reconstructive Surgery Consult CHIEF COMPLAINT: Robbin Singh is a 82 year old female who presents for consultation requested by Madalyn Degroot APRN.CNM for an opinion regarding Mixed urge and stress incontinence. HISTORY OF PRESENT ILLNESS: Presents with daughter, Mariela. Robbin suffers from dementia but is quite pleasant. States she wiped yesterday after urinating and noticed stool on the toilet tissue. Daughter states this happened 3 weeks ago, not yesterday. She was evaluated by ROSALIND for vaginal burning and noted to have mejia on vaginal swab which was treated. Recently diagnosed with diverticulitis at [facility] ER visit 12/31/22. She had a CT scan which showed a acute sigmoid diverticulitis with probable fistulous connection to the adjacent urinary bladder (report scanned to chart). Robbin reports rare urinary incontinence and fecal incontinence and this is confirmed by Mariela. She does urinate frequently and has urgency. The incident 3 weeks ago of noting stool after wiping was the first time Robbin saw this. History of christ, no pelvic surgeries. Type 2 diabetes. HgbA1c 6.4, GFR 56 in 2021. BMI 51. Vaginal swabs: 12/28/22 +mejia, BV negative Urine cultures: 12/23/22 mixed microbiota 05/24/22 normal judith Medical and Symptom History: LENS BLANK GAUGER HISTORY: Last Pap: Date:2012; Last Mammogram: Her last mammogram was 2016. LMP: No LMP recorded. Patient is postmenopausal.; Menopause Yes: Menstrual history: NA; Deliveries: x 2 History of third or fourth degree laceration: No Weight of largest baby: 7 lbs Sexual function Sexually active: Not sexually active PFDI-20 Do you: Usually experience pressure in the lower abdomen? Yes, quite a bit bothersome (4) Usually experience heaviness or dullness in the pelvic area? No (0) Usually have a bulge or something falling out that you can see or feel in your vaginal area? No (0) Ever have to push on the vagina or around the rectum to have or complete a bowel movement? No (0) Usually experience a feeling of incomplete bladder emptying? Yes, quite a bit bothersome (4) Ever have to push up on a bulge in the vaginal area with your fingers to start or complete urination? No (0) Feel you need to strain too hard to have a bowel movement? No (0) Feel you have not completely emptied your bowels at the end of a bowel movement? Yes, moderately bothersome (3) Usually lose stool beyond your control if your stool is well formed? No (0) Usually lose stool beyond your control if your stool is loose? No (0) Usually lose gas from the rectum beyond your control? No (0) Usually have pain when you pass your stool? No (0) Experience a strong sense of urgency and have to hein to the bathroom to have a bowel movement? Yes, somewhat bothersome (2) Does part of your bowel ever pass through the rectum and bulge outside during or after a bowel movement? No (0) Usually experience frequent urination? Yes, quite a bit bothersome (4) Usually experience urine leakage associated with a feeling of urgency, that is, a strong sensation of needing to go to the bathroom? Yes, quite a bit bothersome (4) Usually experience urine leakage related to coughing, sneezing or laughing? Yes, moderately bothersome (3) Usually experience small amounts of urine leakage (that is, drops)? Yes, quite a bit bothersome (4) Usually experience difficulty emptying your bladder? Yes, quite a bit bothersome (4) Usually experience pain or discomfort in the lower abdomen or genital region? Yes, quite a bit bothersome (4) Do you have pain associated with your prolapse (not pressure or fullness) No PAST SURGICAL HISTORY Procedure Laterality Date ARTHRP KNE CONDYLE&PLATU MEDIAL&LAT COMPARTMENTS Left 06/08/2012 CHOLECYSTECTOMY HX 10/30/1997 COLONOSCOPY & POLYPECTOMY ~2007 2 polyps COLONOSCOPY & POLYPECTOMY ~2001 7 polyps COLONOSCOPY & POLYPECTOMY 11/30/2011 COLONOSCOPY FLX DX W/COLLJ SPEC WHEN PFRMD 11/29/12 Colonoscopy repeat 3 years COLONOSCOPY FLX DX W/COLLJ SPEC WHEN PFRMD 01/28/16 Colonoscopy with mac CYSTOSCOPY 09/21/12 EGD 10/17/2011 Dr Negrete in [place] ESOPHAGOGASTRODUODENOSCOPY TRANSORAL DIAGNOSTIC 05/16/2014 EGD ESOPHAGOGASTRODUODENOSCOPY TRANSORAL DIAGNOSTIC 09/12/14 EGD ESOPHAGOGASTRODUODENOSCOPY TRANSORAL DIAGNOSTIC 01/06/2017 EGD ESOPHAGOGASTRODUODENOSCOPY TRANSORAL DIAGNOSTIC 07/21/2020 EGD REMOVE CATARACT, INSERT LENS, INTRACAPSUL Bilateral 2009 PAST MEDICAL HISTORY Diagnosis Date Anxiety and depression 01/01/2019 Arthritis of shoulder region, degenerative right Corticosteroid 09/20/14, left corticosteroid 10/07/14 Arthritis, multiple joint involvement 01/16/2018 Advised tylenol Arthritis 11/15/2018 and to avid NSAID's with her Hx of stomach issues and being diabetic for risk of renal impairment. Bilateral leg edema 07/31/2019 Bilateral primary osteoarthritis of knee 03/26/2019 Cervical spondylosis with myelopathy 07/29/2015 Chronic diastolic heart failure (HCC), mild. 08/27/[address] Bravo. Chronic pain of both knees 11/16/2019 CKD (chronic kidney disease) stage 3, GFR 30-59 ml/min ([facility]) 01/01/2019 COPD with chronic bronchitis ([facility]) 02/15/2017 Dr. Brito Current use of proton pump inhibitor 11/25/2016 Mg checked 11/2017 DDD (degenerative disc disease), cervical 07/29/2015 DDD (degenerative disc disease), lumbar 05/08/2013 Diabetes mellitus type 2 in obese ([facility]) 06/2015 a1c 6.5% Diabetic eye exam ([facility]) 03/15/2017 Last done: 10/24/2019 No Retinopathy Essential hypertension 08/17/2012 Ex-smoker 07/21/2017 Started around age 21 up to 2.3-3 PPD, Quit around age 57 Frequency of micturition 12/27/2016 Frequent falls 05/15/2019 GERD without esophagitis 11/25/[address] Slade Hearing loss in left ear Hip pain 12/23/2014 History of melanoma Interstitial cystitis Lumbar radiculopathy 04/29/2014 Lumbar spondylosis Lymphadenopathy of left cervical region 12/18/2013 MCI (mild cognitive impairment) 01/01/2019 Mechanical back pain 12/08/[address] Quezada for pain management. Medicare annual wellness visit, subsequent 12/05/2017 Medicare part B: 07/08/2005 last done:01/04/2020 Mixed hyperlipidemia 08/17/2012 Neuropathic pain 12/08/2012 Obesity, Class III, BMI >= 40 06/26/2018 TACO (obstructive sleep apnea) DME [facility] [phone] Pain due to total left knee replacement (HCC) 06/08/2018 Personal history of colonic polyps 01/23/2016 Primary insomnia 03/16/2017 Brain troy 06/26/2018 recommended Klonopin every other day for a week and then just as needed. Primary osteoarthritis of right knee 07/13/2016 Pulmonary hypertension (HCC) 05/19/2022 Seeing pulm and cardio Pulmonary nodules 03/03/2013 Incidental non-calcified nodules 10/09/2012. Repeat CT due 06/2013 Recurrent major depressive disorder, in full remission ([facility]) 08/17/2012 Rheumatoid arthritis(714.0) Spondylosis of lumbar region without myelopathy or radiculopathy 05/28/2015 Status post total left knee replacement 06/08/2018 Stress incontinence 11/21/[address] Armas. Thyroid nodule 11/15/2018 Stable on US 2017 Type 2 diabetes mellitus with stage 3 chronic kidney disease, without long-term current use of insulin ([facility]) 06/06/2017 Urge incontinence 11/21/2012 FAMILY HISTORY Problem Relation Age of Onset Hypertension Mother Heart Mother Lipids Mother HIGH CHOLESTEROL Heart Father SD Ischemic Heart Disease Father STROKE other (diabetic) Father Diabetes Sister Diabetes Sister Breast Cancer Sister Current Outpatient Medications Medication Sig amoxicillin-clavulanic acid (AUGMENTIN) 875-125 mg per tablet Take 1 tablet by mouth every 12 hours. metroNIDAZOLE (FLAGYL) 500 mg tablet Take [address] (PROTONIX) 40 mg tablet Take 1 tablet by mouth twice daily. fluconazole (DIFLUCAN) 150 mg tablet Take 1 tablet by mouth one time a week for 14 days. HYDROcodone-acetaminophen (NORCO) 5-325 mg per tablet Take 1 tablet by mouth twice daily as needed for up to 30 days. atorvastatin (LIPITOR) 40 mg tablet Take 1 tablet by mouth once daily. furosemide (LASIX) 20 mg tablet Take 1 tablet by mouth twice daily. isosorbide mononitrate ER (IMDUR) 30 mg 24 hr tablet Take 1 tablet by mouth once daily. pioglitazone (ACTOS) 15 mg tablet Take 1 tablet by mouth once daily. donepezil (ARICEPT) 10 mg tablet Take 1 tablet by mouth daily at bedtime. sertraline (ZOLOFT) 50 mg tablet Take 1 tablet by mouth once daily. metFORMIN ER (GLUCOPHAGE XR) 500 mg 24 hr tablet Take 2 tablets by mouth daily with dinner. albuterol (PROVENTIL) 2.5 mg /3 mL (0.083 %) nebulizer solution Use 3 mL via nebulizer every 6 hours as needed for wheezing/shortness of breath. Use over 5-15minutes. MEDICAL SUPPLY One motorized scooter appropriate for weight (293 lbs). Patient needs this medically due to the chronic pain she has related to arthritis in multiple joints such as her back and knees which limits her mobility, quality of life and increase risck for falls. Dx:M12.9, M25.561, M50.30, M51.36, M54.9, R29.6 losartan (COZAAR) 50 mg tablet Take 1 tablet by mouth once daily. flash glucose scanning reader (FREESTYLE ADELINA 2 READER) Last A1c 9.8, Dx 11.22 no insulin. Is to check insulin fasting and 2 hrs after lunch and dinner. (Patient taking differently: Last A1c 9.8, Dx 11.22 no insulin. Is to check insulin fasting and 2 hrs after lunch and dinner.) diclofenac (VOLTAREN ARTHRITIS PAIN) 1 % topical gel Apply 4 g to affected area four times daily. Lancets lancets Test blood sugar(s) 2 times daily: fasting and two hrs after a large meal . Dx: Type 2 DM - Uncontrolled E11.65 Insulin: No albuterol HFA (PROAIR HFA) 90 mcg/actuation inhaler Inhale 2 Puffs as instructed every 4 hours as needed for wheezing/shortness of breath (With Spacer). Lancing Device with Lancets (ACCU-CHEK SOFT DEV LANCETS) 1 Device once daily. Lancet device to use with Accuchek lancets DX E11.22 Insulin No (Patient taking differently: 1 Device once daily. Lancet device to use with Accuchek lancets DX E11.22 Insulin No) Walker (ULTRA-LIGHT ROLLATOR) [facility] One Rolator with seat. Dx: J44.9, M54.9, M12.9 and R29.6 Nebulizer NEBULIZER FOR HOME USE. DX: J44.9 aspirin 81 mg chewable tablet Take 81 mg by mouth once daily. OMEGA-3 FATTY ACIDS (FISH OIL CONCENTRATE ORAL) Take 1 tablet by mouth once daily. furosemide (LASIX) 20 mg tablet Take 1 tablet by mouth twice daily. magnesium oxide 200 mg magnesium tab Take 1 tablet by mouth once daily. (Patient not taking: Reported on 11/04/2022) flash glucose sensor (FREESTYLE ADELINA 2 SENSOR) kit Apply new sensor every two weeks. Last A1c 9.8, Dx 11.22 no insulin. Is to check insulin fasting and 2 hrs after lunch and dinner. (Patient not taking: Reported on 12/23/2022) spironolactone (ALDACTONE) 25 mg tablet Take 1 tablet by mouth once daily. (Patient not taking: Reported on 12/23/2022) blood sugar diagnostic (BLOOD GLUCOSE TEST) test strip Test blood sugar(s) 2 times daily: fasting and two hrs after a large meal . Dx: Type 2 DM - Uncontrolled E11.65 Insulin: No (Patient not taking: Reported on 12/23/2022) Calcium Citrate-Vitamin D3 (CITRACAL+D) 315 mg- 250 unit tab Take by mouth. (Patient not taking: Reported on 11/04/2022) Current Facility-Administered Medications Medication Dose Route Frequency perflutren lipid microspheres 1.3 mL in NaCl (PF) 0.9% 10 mL injection (DEFINITY) INTRAVENOUS DIRECTED PRN sodium chloride 0.9 % (flush) 10 mL (BD POSIFLUSH) 10 mL INTRAVENOUS DIRECTED PRN ALLERGIES Allergen Reactions Bactrim [Sulfametho* Itching Codeine Mental Status Change Garlic Oil Other: See Comments Lexapro [Escitalopr* Other: See Comments rapid heart rate Oxybutynin Other: See Comments suggerst by [employer] to stop since it can add to memory issues. Tramadol Other: See Comments Heart racing, SOB Zoloft [Sertraline * Other: See Comments takes celexa SOCIAL HISTORY Social History Tobacco Use Smoking status: Former Packs/day: 3.00 Years: 35.00 Pack years: 105.00 Types: Cigarettes Quit date: 09/22/1997 Years since quittin.3 Smokeless tobacco: Never Vaping Use Vaping Use: Never used Substance Use Topics Alcohol use: No Drug use: No Occupation: Retired Marital Status: REVIEW OF SYSTEMS General: Negative for unintentional weight loss, fever, chills, or weakness. Skin: Negative for rash or itching. Psychiatric: dementia Neurologic: Negative for new headache or syncope. Endocrine: Negative for sweating, cold intolerance or heat intolerance. Cardiovascular: Negative for recent chest pain, chest pressure or chest discomfort. Hematologic/Lymphatic: Negative for easy bruising or excessive bleeding. Respiratory: Negative for wheezing, shortness of breath or persistent cough. Gastrointestinal: Negative for persistent abdominal pain. Negative for anorexia, persistent nausea and/or vomiting. Musculoskeletal: Negative for muscle pain, back pain, joint pain or stiffness. I have confirmed and edited as necessary, the PFSH and ROS obtained by others. Eufemia Chapa APRN.MOBILE HOMES REPAIRER Editorial Director offered: Patient accepts, visit chaperoned by Ovidio Camargo LPN. OBJECTIVE: BP 128/65 Pulse 77 Ht 5' 2 (1.58m) Wt 280 lb (127.0kg) BMI 51.20 kg/(m^2). Physical Exam Constitutional: BMI - Body mass index is 51.21 kg/m . General Appearance: Well appearing, alert, in no acute distress, well-hydrated, well nourished., Morbidly obese, and confused but pleasant Skin: Not examined Lungs: Unlabored on room air Heart: Not examined Breasts: Deferred Abdomen: Abdomen soft, non-tender Pelvic: External Genitalia: introital erythema and excoriation noted. +++Exam limited due to body habitus+++ POP-Q: Deferred Vaginal epithelium: Atrophic, stool noted with speculum exam, unable to visualize a defect or fistula. Cervix: Normal, poorly visualized Urethra: Normal Bimanual: limited due to body habitus, unable to palpate a vaginal defect Rectovaginal: No tenderness, No masses, unable to palpate a defect Anal Sphincter: Resting Tone: Weak Sphincter Defect: no Levator Ani Tone: normal Levator Ani Tenderness: No Saddle Sensory Exam (S2-4): normal Urine dip deferred, stool noted in specimen container. IMPRESSION: Robbin Singh is a 82 year old female with colovesical fistula, vulvar irritation and dementia. PLAN: 1. Colovesical fistula - Per discharge instructions from [facility], a consult has been placed with Dr. Octavio Coreas, general surgeon. Advised Mariela they may follow-up with Dr. Coreas or consult with Colorectal surgery at . Mariela would prefer to consult with [facility]. - CONSULT TO COLO-RECTAL SURGERY; Future 2. Vulvar irritation - Vulvar care measures reviewed. 3. Mixed incontinence - Robbin and Mariela feel the more pressing issue is the fistula. We did not have a lengthy discussion on incontinence at this time. 4. Morbid obesity (HCC) 5. Dementia, unspecified dementia severity, unspecified dementia type, unspecified whether behavioral, psychotic, or mood disturbance or anxiety (HCC) My final recommendations will be communicated back to the requesting physician by way of shared Medical record or letter via US mail. Eufemia Chapa APRN.CARINE documented in this encounter [facility] 01-01-2023 Note . MICRO - Microbiology PROCEDURE: Urine Culture [*1] SOURCE: Urine BODY SITE: COLLECTED DATE/TIME: 12/31/2022 14:47 EST RECEIVED DATE/TIME: 12/31/2022 19:44 EST START DATE/TIME: 12/31/2022 19:44 EST FREE TEXT SOURCE: FINAL REPORTS Final Report [] Verified Date/Time/Personnel: 01/01/2023 14:15 EST 10,000 - 50,000 cfu/ml Multiple bacterial morphotypes present. Probable Contamination. Suggest recollection if clinically indicated. Performing Locations *1: This test was performed at: [facility], [address] [place] [address], [id number] , [facility] 12-29-2022 Miscellaneous Notes Patient's daughter notified. Sun Thompson RN Patient is positive for yeast. She has dementia and sister is rn progressive care. Please notify sister of positive results. Diflucan 150 mg PO x 2 doses called in to local pharmacy. She will need to take one dose this week and another dose in 1 week. Madalyn Degroot APRN.CNM documented in this encounter [facility] 12-28-2022 Note HNO ID: [id number] Author: Madalyn Degroot APRN.CNM Service: ? Author Type: Millinery Salesperson Type: Progress Notes Filed: 12/28/2022 11:13 AM Note Text: Robbin Singh is a 82 year old female who presents with daughter and sister for problem visit of vaginal burning. Patient referred by PCP due to having vaginal pain and burning sensation. She thought she had a urinary tract infection but urine culture returned negative. Patient has dementia and is daughter is rn progressive care. Last week patient became concerned because she noticed feces inside her vagina. She notices stool on toilet paper after wiping. Patient's sister concerned she may have anal fissures/fistula. She has a history of mixed incontinence and wears Depends. Denies any vaginal discharge, odor or itching. 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 Bilateral leg edema 07/31/2019 Bilateral primary osteoarthritis of knee 03/26/2019 Cervical spondylosis with myelopathy 07/29/2015 Chronic diastolic heart failure (HCC), mild. 08/27/[address] Bravo. Chronic pain of both knees 11/16/2019 CKD (chronic kidney disease) stage 3, GFR 30-59 ml/min (HCC) 01/01/2019 COPD with chronic bronchitis (HCC) 02/15/2017 Dr. Brito Current use of proton pump inhibitor 11/25/2016 Mg checked 11/2017 DDD (degenerative disc disease), cervical 07/29/2015 DDD (degenerative disc disease), lumbar 05/08/2013 Diabetes mellitus type 2 in obese ([facility]) 06/2015 a1c 6.5% Diabetic eye exam ([facility]) 03/15/2017 Last done: 10/24/2019 No Retinopathy Essential hypertension 08/17/2012 Ex-smoker 07/21/2017 Started around age 21 up to 2.3-3 PPD, Quit around age 57 Frequency of micturition 12/27/2016 Frequent falls 05/15/2019 GERD without esophagitis 11/25/[address] Slade Hearing loss in left ear Hip pain 12/23/2014 History of melanoma Interstitial cystitis Lumbar radiculopathy 04/29/2014 Lumbar spondylosis Lymphadenopathy of left cervical region 12/18/2013 MCI (mild cognitive impairment) 01/01/2019 Mechanical back pain 12/08/[address] Quezada for pain management. Medicare annual wellness visit, subsequent 12/05/2017 Medicare part B: 07/08/2005 last done:01/04/2020 Mixed hyperlipidemia 08/17/2012 Neuropathic pain 12/08/2012 Obesity, Class III, BMI >= 40 06/26/2018 TACO (obstructive sleep apnea) DME [employer] fx [phone] Pain due to total left knee replacement ([facility]) 06/08/2018 Personal history of colonic polyps 01/23/2016 Primary insomnia 03/16/2017 Brain troy 06/26/2018 recommended Klonopin every other day for a week and then just as needed. Primary osteoarthritis of right knee 07/13/2016 Pulmonary hypertension ([facility]) 05/19/2022 Seeing pulm and cardio Pulmonary nodules 03/03/2013 Incidental non-calcified nodules 10/09/2012. Repeat CT due 06/2013 Recurrent major depressive disorder, in full remission ([facility]) 08/17/2012 Rheumatoid arthritis(714.0) Spondylosis of lumbar region without myelopathy or radiculopathy 05/28/2015 Status post total left knee replacement 06/08/2018 Stress incontinence 11/21/[address] Armas. Thyroid nodule 11/15/2018 Stable on 2017 Type 2 diabetes mellitus with stage 3 chronic kidney disease, without long-term current use of insulin ([facility]) 06/06/2017 Urge incontinence 11/21/2012 PAST SURGICAL HISTORY Procedure Laterality Date ARTHRP KNE CONDYLEANDPLATU MEDIALANDLAT COMPARTMENTS Left 06/08/2012 CHOLECYSTECTOMY HX 10/30/1997 COLONOSCOPY AND POLYPECTOMY ~2007 2 polyps COLONOSCOPY AND POLYPECTOMY ~2001 7 polyps COLONOSCOPY AND POLYPECTOMY 11/30/2011 COLONOSCOPY FLX DX W/COLLJ SPEC WHEN PFRMD 11/29/12 Colonoscopy repeat 3 years COLONOSCOPY FLX DX W/COLLJ SPEC WHEN PFRMD 01/28/16 Colonoscopy with mac CYSTOSCOPY 09/21/12 EGD 10/17/2011 Dr Negrete in [place] ESOPHAGOGASTRODUODENOSCOPY TRANSORAL DIAGNOSTIC 05/16/2014 EGD ESOPHAGOGASTRODUODENOSCOPY TRANSORAL DIAGNOSTIC 09/12/14 EGD ESOPHAGOGASTRODUODENOSCOPY TRANSORAL DIAGNOSTIC 01/06/2017 EGD ESOPHAGOGASTRODUODENOSCOPY TRANSORAL DIAGNOSTIC 07/21/2020 EGD REMOVE CATARACT, INSERT LENS, INTRACAPSUL Bilateral 2008 FAMILY HISTORY Problem Relation Age of Onset Hypertension Mother Heart Mother Lipids Mother HIGH CHOLESTEROL Heart Father SD Ischemic Heart Disease Father STROKE other (diabetic) Father Diabetes Sister Diabetes Sister Breast Cancer Sister Social History Tobacco Use Smoking status: Former Packs/day: 3.0 (more content not included)... [facility] 12-27-2022 Miscellaneous Notes Urine culture was negative. See Datadecision message. documented in this encounter [facility] 12-24-2022 Miscellaneous Notes Spoke to pt's daughter Mariela, she was notified of results & message from provider. Mariela voiced understanding. Huong Payan LPN Let patient/family know that UA does show evidence of infection. I won't have cultur back until early next week. So I will start her on atb for the weekend and then contact them further with any instructions once I get the rest of the culture results. documented in this encounter [facility] 12-23-2022 Note HNO ID: [id number] Author: Stephani Crooks PA-C Service: ? Author Type: Physician Final Assembly And Packing Supervisor Type: Progress Notes Filed: 12/23/2022 2:24 PM Note Text: Chief Complaint Patient presents with: Acute Visit: Having daily nightmares UTI: Urinary frequency AND dysuria X 4-5 days. HPI Robbin Singh is a 82 year old female who presents here today for Above Complaints.. Patient is here with daughter and sister. Patient with dementia and depression, as well as those as below. Patient reports that she continues to have issues with nightmares. Sertraline was switched to prozac in 2021 to see if helped with the dreams, which it did not and then her moods worsened so we restared zoloft. Patient's family states that Robbin often has crime shows on TV. She has hx of not making follow up appointments, but now that daughter has taken over scheduling and driving patient to appointments, she has been more consistent in her care. She was previously going to see geriatrics but did not keep appointment. Didn't seem to benefit from brain health visits. Also recently has been complaining of uti Symptoms. She has had dysuria and urinary frequency. Past medical history, appointments, medications, allergies reviewed. Previous Medical History PAST MEDICAL HISTORY Diagnosis Date Anxiety and depression 01/01/2019 Arthritis of shoulder region, degenerative right Corticosteroid 09/20/14, left corticosteroid 10/07/14 Arthritis, multiple joint involvement 01/16/2018 Advised tylenol Arthritis 11/15/2018 and to avid NSAID's with her Hx of stomach issues and being diabetic for risk of renal impairment. Bilateral leg edema 07/31/2019 Bilateral primary osteoarthritis of knee 03/26/2019 Cervical spondylosis with myelopathy 07/29/2015 Chronic diastolic heart failure (HCC), mild. 08/27/[address] Bravo. Chronic pain of both knees 11/16/2019 CKD (chronic kidney disease) stage 3, GFR 30-59 ml/min ([facility]) 01/01/2019 COPD with chronic bronchitis ([facility]) 02/15/2017 Dr. Brito Current use of proton pump inhibitor 11/25/2016 Mg checked 11/2017 DDD (degenerative disc disease), cervical 07/29/2015 DDD (degenerative disc disease), lumbar 05/08/2013 Diabetes mellitus type 2 in obese ([facility]) 06/2015 a1c 6.5% Diabetic eye exam ([facility]) 03/15/2017 Last done: 10/24/2019 No Retinopathy Essential hypertension 08/17/2012 Ex-smoker 07/21/2017 Started around age 21 up to 2.3-3 PPD, Quit around age 57 Frequency of micturition 12/27/2016 Frequent falls 05/15/2019 GERD without esophagitis 11/25/[address] Slade Hearing loss in left ear Hip pain 12/23/2014 History of melanoma Interstitial cystitis Lumbar radiculopathy 04/29/2014 Lumbar spondylosis Lymphadenopathy of left cervical region 12/18/2013 MCI (mild cognitive impairment) 01/01/2019 Mechanical back pain 12/08/[address] Quezada for pain management. Medicare annual wellness visit, subsequent 12/05/2017 Medicare part B: 07/08/2005 last done:01/04/2020 Mixed hyperlipidemia 08/17/2012 Neuropathic pain 12/08/2012 Obesity, Class III, BMI >= 40 06/26/2018 TACO (obstructive sleep apnea) DME [facility] fx [phone] Pain due to total left knee replacement ([facility]) 06/08/2018 Personal history of colonic polyps 01/23/2016 Primary insomnia 03/16/2017 Brain center 06/26/2018 recommended Klonopin every other day for a week and then just as needed. Primary osteoarthritis of right knee 07/13/2016 Pulmonary hypertension ([facility]CC) 05/19/2022 Seeing pulm and cardio Pulmonary nodules 03/03/2013 Incidental non-calcified nodules 10/09/2012. Repeat CT due 06/2013 Recurrent major depressive disorder, in full remission ([facility]) 08/17/2012 Rheumatoid arthritis(714.0) Spondylosis of lumbar region without myelopathy or radiculopathy 05/28/2015 Status post total left knee replacement 06/08/2018 Stress incontinence 11/21/[address] Armas. Thyroid nodule 11/15/2018 Stable on US 2017 Type 2 diabetes mellitus with stage 3 chronic kidney disease, without long-term current use of insulin ([facility]) 06/06/2017 Urge incontinence 11/21/2012 Previous Surgical History PAST SURGICAL HISTORY Procedure Laterality Date ARTHRP KNE CONDYLEANDPLATU MEDIALANDLAT COMPARTMENTS Left 06/08/2012 CHOLECYSTECTOMY HX 10/30/1997 COLONOSCOPY AND POLYPECTOMY ~2007 2 polyps COLONOSCOPY AND POLYPECTOMY ~2001 7 polyps COLONOSCOPY AND POLYPECTOMY 11/30/2011 COLONOSCOPY FLX DX W/COLLJ SPEC WHEN PFRMD 11/29/12 Colonoscopy repeat 3 years COLONOSCOPY FLX DX W/COLLJ SPEC WHEN PFRMD 01/28/16 Colonoscopy with mac CYSTOSCOPY 09/21/12 EGD 10/17/2011 Dr Negrete in [place] ESOPHAGOGASTRODUODENOSCOPY TRANSORAL DIAGNOSTIC 05/16/2014 EGD ESOPHAGOGASTRODUODENOSCOPY TRANSORAL DIAGNOSTIC 09/12/14 EGD ESOPHAGOGASTRODUODENOSCOPY TRANSORAL DIAGNOSTIC 01/06/2017 EGD ESOPHAGOGASTRODUODENOSCOPY TRANSORAL DIAGNOSTIC 07/21/2020 EGD REMOVE CATARACT, INSERT LENS, INTRACAPSUL Bilateral 2008 Family History FAMILY HISTORY Pr (more content not included)... [facility] 12-23-2022 History of Present illness Narrative Chief Complaint Patient presents with: Acute Visit: Having daily nightmares UTI: Urinary frequency & dysuria X 4-5 days. HPI Robbin Singh is a 82 year old female who presents here today for Above Complaints.. Patient is here with daughter and sister. Patient with dementia and depression, as well as those as below. Patient reports that she continues to have issues with nightmares. Sertraline was switched to prozac in 2021 to see if helped with the dreams, which it did not and then her moods worsened so we restared zoloft. Patient's family states that Robbin often has crime shows on TV. She has hx of not making follow up appointments, but now that daughter has taken over scheduling and driving patient to appointments, she has been more consistent in her care. She was previously going to see geriatrics but did not keep appointment. Didn't seem to benefit from brain health visits. Also recently has been complaining of uti Symptoms. She has had dysuria and urinary frequency. Past medical history, appointments, medications, allergies reviewed. Previous Medical History PAST MEDICAL HISTORY Diagnosis Date Anxiety and depression 01/01/2019 Arthritis of shoulder region, degenerative right Corticosteroid 09/20/14, left corticosteroid 10/07/14 Arthritis, multiple joint involvement 01/16/2018 Advised tylenol Arthritis 11/15/2018 and to avid NSAID's with her Hx of stomach issues and being diabetic for risk of renal impairment. Bilateral leg edema 07/31/2019 Bilateral primary osteoarthritis of knee 03/26/2019 Cervical spondylosis with myelopathy 07/29/2015 Chronic diastolic heart failure (HCC), mild. 08/27/[address] Bravo. Chronic pain of both knees 11/16/2019 CKD (chronic kidney disease) stage 3, GFR 30-59 ml/min ([facility]) 01/01/2019 COPD with chronic bronchitis ([facility]) 02/15/2017 Dr. Brito Current use of proton pump inhibitor 11/25/2016 Mg checked 11/2017 DDD (degenerative disc disease), cervical 07/29/2015 DDD (degenerative disc disease), lumbar 05/08/2013 Diabetes mellitus type 2 in obese ([facility]) 06/2015 a1c 6.5% Diabetic eye exam ([facility]) 03/15/2017 Last done: 10/24/2019 No Retinopathy Essential hypertension 08/17/2012 Ex-smoker 07/21/2017 Started around age 21 up to 2.3-3 PPD, Quit around age 57 Frequency of micturition 12/27/2016 Frequent falls 05/15/2019 GERD without esophagitis 11/25/[address] Slade Hearing loss in left ear Hip pain 12/23/2014 History of melanoma Interstitial cystitis Lumbar radiculopathy 04/29/2014 Lumbar spondylosis Lymphadenopathy of left cervical region 12/18/2013 MCI (mild cognitive impairment) 01/01/2019 Mechanical back pain 12/08/[address] Quezada for pain management. Medicare annual wellness visit, subsequent 12/05/2017 Medicare part B: 07/08/2005 last done:01/04/2020 Mixed hyperlipidemia 08/17/2012 Neuropathic pain 12/08/2012 Obesity, Class III, BMI >= 40 06/26/2018 TACO (obstructive sleep apnea) DME [employer] fx [phone] Pain due to total left knee replacement (HCC) 06/08/2018 Personal history of colonic polyps 01/23/2016 Primary insomnia 03/16/2017 Brain center 06/26/2018 recommended Klonopin every other day for a week and then just as needed. Primary osteoarthritis of right knee 07/13/2016 Pulmonary hypertension (HCC) 05/19/2022 Seeing pulm and cardio Pulmonary nodules 03/03/2013 Incidental non-calcified nodules 10/09/2012. Repeat CT due 06/2013 Recurrent major depressive disorder, in full remission ([facility]) 08/17/2012 Rheumatoid arthritis(714.0) Spondylosis of lumbar region without myelopathy or radiculopathy 05/28/2015 Status post total left knee replacement 06/08/2018 Stress incontinence 11/21/[address] Armas. Thyroid nodule 11/15/2018 Stable on US 2017 Type 2 diabetes mellitus with stage 3 chronic kidney disease, without long-term current use of insulin ([facility]) 06/06/2017 Urge incontinence 11/21/2012 Previous Surgical History PAST SURGICAL HISTORY Procedure Laterality Date ARTHRP KNE CONDYLE&PLATU MEDIAL&LAT COMPARTMENTS Left 06/08/2012 CHOLECYSTECTOMY HX 10/30/1997 COLONOSCOPY & POLYPECTOMY ~2007 2 polyps COLONOSCOPY & POLYPECTOMY ~2001 7 polyps COLONOSCOPY & POLYPECTOMY 11/30/2011 COLONOSCOPY FLX DX W/COLLJ SPEC WHEN PFRMD 11/29/12 Colonoscopy repeat 3 years COLONOSCOPY FLX DX W/COLLJ SPEC WHEN PFRMD 01/28/16 Colonoscopy with mac CYSTOSCOPY 09/21/12 EGD 10/17/2011 Dr Negrete in [place] ESOPHAGOGASTRODUODENOSCOPY TRANSORAL DIAGNOSTIC 05/16/2014 EGD ESOPHAGOGASTRODUODENOSCOPY TRANSORAL DIAGNOSTIC 09/12/14 EGD ESOPHAGOGASTRODUODENOSCOPY TRANSORAL DIAGNOSTIC 01/06/2017 EGD ESOPHAGOGASTRODUODENOSCOPY TRANSORAL DIAGNOSTIC 07/21/2020 EGD REMOVE CATARACT, INSERT LENS, INTRACAPSUL Bilateral 2008 Family History FAMILY HISTORY Problem Relation Age of Onset Hypertension Mother Heart Mother Lipids Mother HIGH CHOLESTEROL Heart Father SD Ischemic Heart Disease Father STROKE other (diabetic) Father Diabetes Sister Diabetes Sister Breast Cancer Sister Patient Allergies ALLERGIES Allergen Reactions Bactrim [Sulfametho* Itching Codeine Mental Status Change Garlic Oil Other: See Comments Lexapro [Escitalopr* Other: See Comments rapid heart rate Oxybutynin Other: See Comments suggerst by [employer] to stop since it can add to memory issues. Tramadol Other: See Comments Heart racing, SOB Zoloft [Sertraline * Other: See Comments takes celexa Current Medications Current Outpatient Medications on File Prior to Visit Medication Sig HYDROcodone-acetaminophen (NORCO) 5-325 mg per tablet Take 1 tablet by mouth twice daily as needed for up to 30 days. atorvastatin (LIPITOR) 40 mg tablet Take 1 tablet by mouth once daily. furosemide (LASIX) 20 mg tablet Take 1 tablet by mouth twice daily. furosemide (LASIX) 20 mg tablet Take 1 tablet by mouth twice daily. isosorbide mononitrate ER (IMDUR) 30 mg 24 hr tablet Take 1 tablet by mouth once daily. pioglitazone (ACTOS) 15 mg tablet Take 1 tablet by mouth once daily. donepezil (ARICEPT) 10 mg tablet Take 1 tablet by mouth daily at bedtime. sertraline (ZOLOFT) 50 mg tablet Take 1 tablet by mouth once daily. metFORMIN ER (GLUCOPHAGE XR) 500 mg 24 hr tablet Take 2 tablets by mouth daily with dinner. albuterol (PROVENTIL) 2.5 mg /3 mL (0.083 %) nebulizer solution Use 3 mL via nebulizer every 6 hours as needed for wheezing/shortness of breath. Use over 5-15minutes. MEDICAL SUPPLY One motorized scooter appropriate for weight (293 lbs). Patient needs this medically due to the chronic pain she has related to arthritis in multiple joints such as her back and knees which limits her mobility, quality of life and increase risck for falls. Dx:M12.9, M25.561, M50.30, M51.36, M54.9, R29.6 losartan (COZAAR) 50 mg tablet Take 1 tablet by mouth once daily. diclofenac (VOLTAREN ARTHRITIS PAIN) 1 % topical gel Apply 4 g to affected area four times daily. albuterol HFA (PROAIR HFA) 90 mcg/actuation inhaler Inhale 2 Puffs as instructed every 4 hours as needed for wheezing/shortness of breath (With Spacer). Walker (ULTRA-LIGHT ROLLATOR) [facility] One Rolator with seat. Dx: J44.9, M54.9, M12.9 and R29.6 Nebulizer NEBULIZER FOR HOME USE. DX: J44.9 aspirin 81 mg chewable tablet Take 81 mg by mouth once daily. OMEGA-3 FATTY ACIDS (FISH OIL CONCENTRATE ORAL) Take 1 tablet by mouth once daily. magnesium oxide 200 mg magnesium tab Take 1 tablet by mouth once daily. (Patient not taking: Reported on 11/04/2022) pantoprazole DR (PROTONIX) 40 mg tablet Take 1 tablet by mouth twice daily. (Patient not taking: Reported on 12/23/2022) flash glucose scanning reader (FREESTYLE ADELINA 2 READER) Last A1c 9.8, Dx 11.22 no insulin. Is to check insulin fasting and 2 hrs after lunch and dinner. (Patient not taking: Reported on 12/23/2022) flash glucose sensor (FREESTYLE ADELINA 2 SENSOR) kit Apply new sensor every two weeks. Last A1c 9.8, Dx 11.22 no insulin. Is to check insulin fasting and 2 hrs after lunch and dinner. (Patient not taking: Reported on 12/23/2022) spironolactone (ALDACTONE) 25 mg tablet Take 1 tablet by mouth once daily. (Patient not taking: Reported on 12/23/2022) blood sugar diagnostic (BLOOD GLUCOSE TEST) test strip Test blood sugar(s) 2 times daily: fasting and two hrs after a large meal . Dx: Type 2 DM - Uncontrolled E11.65 Insulin: No (Patient not taking: Reported on 12/23/2022) Lancets lancets Test blood sugar(s) 2 times daily: fasting and two hrs after a large meal . Dx: Type 2 DM - Uncontrolled E11.65 Insulin: No Lancing Device with Lancets (ACCU-CHEK SOFT DEV LANCETS) 1 Device once daily. Lancet device to use with Accuchek lancets DX E11.22 Insulin No (Patient not taking: Reported on 12/23/2022) Calcium Citrate-Vitamin D3 (CITRACAL+D) 315 mg- 250 unit tab Take by mouth. (Patient not taking: Reported on 11/04/2022) Current Facility-Administered Medications on File Prior to Visit Medication perflutren lipid microspheres 1.3 mL in NaCl (PF) 0.9% 10 mL injection (DEFINITY) sodium chloride 0.9 % (flush) 10 mL (BD POSIFLUSH) Social History Social History Tobacco Use Smoking status: Former Packs/day: 3.00 Years: 35.00 Pack years: 105.00 Types: Cigarettes Quit date: 09/22/1997 Years since quittin.2 Smokeless tobacco: Never Vaping Use Vaping Use: Never used Substance Use Topics Alcohol use: No Drug use: No Review of Symptoms REVIEW OF SYSTEMS See hpi EXAM: BP 110/68 (BP Site: Left Arm, BP Position: Sitting, BP Cuff Size: Large Adult) Pulse 84 Resp 20 Wt 129.3 kg (285 lb) SpO2 94% BMI 52.13 kg/m General Appearance: Well appearing, alert, in no acute distress, well-hydrated, well nourished.. Abdomen: Normal abdominal exam, Abdomen soft, non-tender. Bowel sounds normal. No masses, organomegaly. Health Maintenance List DTAP,TDAP,TD(1 - Tdap) Never done SHINGRIX VACCINE(2 of 3) due on 05/22/2014 DILATED RETINAL EXAM due on 12/09/2021 COVID-19 VACCINE(4 - Booster for Moderna series) due on 12/19/2021 DIABETIC FOOT EXAM due on 01/05/2022 ADVANCE DIRECTIVE DISCUSSION Never done HBA1C due on 05/05/2023 URINE ALBUMIN:CREATININE RATIO due on 05/07/2023 LDL CHOLESTEROL due on 11/04/2023 BONE DENSITY Completed SPIROMETRY Completed INFLUENZA Completed PNEUMOCOCCAL: 65+ Completed Data reviewed ASSESSMENT/PLAN: 1. Nightmares - ICD9: 307.47, ICD10: F51.5 (primary diagnosis) May be dementia related or possible SE of aricept. I'm hesitant to trial a medication such as prazosin or trazodone given patient's other health factors and lack of clear data to support benefit. Will await specialists consults. Discussed trial off of aricept but family is concerned about how that will effect patient's status. Could consider trial switch to namenda. Will await neuro opinion and also reconsult geriatrics. Advised patient's family that they can go to [facility] and request virtual visit. - CONSULT TO GERIATRICS 2. Dysuria - ICD9: 788.1, ICD10: R30.0 acute Patient to get UA and Culture completed. - URINALYSIS, WITH MICROSCOPIC - URINE CULTURE - CONSULT TO GERIATRICS 3. Dementia with mood disturbance, unspecified dementia severity, unspecified dementia type - ICD9: 294.21, ICD10: F03.93 See #1. Stephani Crooks PA-C documented in this encounter [facility] 12-16-2022 Miscellaneous Notes Daughter Mariela notified of response. Appt was scheduled 12/22/22 with IRAIDA Crooks Mariela requested appt sometime next week. Huong Payan LPN Patient needs appt. Pt called to let you know she is having nightmares and she is waking up sweating and her heart is beating. This has been going on since last summer. This started last summer. Pt was instructed earlier to take the donepezil in the am. This is still going on and pt wants to stop what ever medication is causing this. Please review and advise daughter. Shelby Rogel LPN documented in this encounter [facility] 12-13-2022 Miscellaneous Notes Last office visit: 11/04/22 F/u scheduled: 03/11/23 Cristina Garcia Ma documented in this encounter [facility] 12-07-2022 Miscellaneous Notes The following approved medication requests have been transmitted electronically. Requested Prescriptions Signed Prescriptions Disp Refills HYDROcodone-acetaminophen (NORCO) 5-325 mg per tablet 60 tablet 0 Sig: Take 1 tablet by mouth twice daily as needed for up to 30 days. Authorizing Provider: STEPHANI CROOKS PA-C Patient requests via MyChart refills as follows: Requested Prescriptions Pending Prescriptions Disp Refills HYDROcodone-acetaminophen (NORCO) 5-325 mg per tablet 60 tablet 0 Sig: Take 1 tablet by mouth twice daily as needed for up to 30 days. pioglitazone (ACTOS) 15 mg tablet 90 tablet 5 Sig: Take 1 tablet by mouth once daily. TAVO: 11/04/22 NOV: 03/11/23 Last Refill: [place]: 11/09/22 #60 0 refills [facility]: 11/19/22 #90 5 refills.Not due for refill yet Huong Payan LPN documented in this encounter [facility] 12-02-2022 Miscellaneous Notes The following approved medication requests have been transmitted electronically. Requested Prescriptions Signed Prescriptions Disp Refills furosemide (LASIX) 20 mg tablet 180 tablet 1 Sig: Take 1 tablet by mouth twice daily. Authorizing Provider: STEPHANI CROOKS PA-C Patient phones requesting refills as follows: Pt needs the [facility] RX sent in. See below Requested Prescriptions Pending Prescriptions Disp Refills furosemide (LASIX) 20 mg tablet 180 tablet 1 Sig: Take 1 tablet by mouth twice daily. Please review and advise. Brianne Chiang LPN I'm not sure what they need? Does she need a new short term prescription to be sent or the mail order refilled. Stephani Crooks PA-C Please see Datadec[employer] message documented in this encounter [facility] 11-19-2022 Miscellaneous Notes Patient has been identified by name and date of : Yes Requested Prescriptions Pending Prescriptions Disp Refills isosorbide mononitrate ER (IMDUR) 30 mg 24 hr tablet 90 tablet 0 Sig: Take 1 tablet by mouth once daily. RX INSTRUCTIONS: Patient aware RX will be sent to pharmacy. No need to notify patient. Antionette Coleman MA [place]avo: 10/2022 Nov: 03/2023 Last refill: 08/2022 documented in this encounter [facility] 11-19-2022 Miscellaneous Notes Patient has been identified by name and date of : Yes Requested Prescriptions Pending Prescriptions Disp Refills pioglitazone (ACTOS) 15 mg tablet 90 tablet 5 Sig: Take 1 tablet by mouth once daily. RX INSTRUCTIONS: Patient aware RX will be sent to pharmacy. No need to notify patient. Antionette Coleman MA [place]: 10/2022 Nov: 03/2023 Last refill: 11/09/2022 [facility] documented in this encounter [facility] 11-16-2022 Miscellaneous Notes Patient has been identified by name and date of : Yes, Patient phones for refill(s): Requested Prescriptions Pending Prescriptions Disp Refills donepezil (ARICEPT) 10 mg tablet 30 tablet 5 Sig: Take 1 tablet by mouth daily at bedtime. Date of last office visit in primary care: 11/04/22 Please advise. Thank you. Nel Cope LPN documented in this encounter [facility] documented in this encounter [facility] Miscellaneous Notes* Telephone Encounter - Stephani Crooks PA-C - 11/09/2022 12:06 PM EST The following approved medication requests have been transmitted electronically. Requested Prescriptions Signed Prescriptions Disp Refills HYDROcodone-acetaminophen (NORCO) 5-325 mg per tablet 60 tablet 0 Sig: Take 1 tablet by mouth twice daily as needed for up to 30 days. Authorizing Provider: STEPHANI CROOKS PA-C * Telephone Encounter - Nel Cope LPN - 11/09/2022 11:23 AM EST Patient has been identified by name and date of : Yes, Patient phones for refill(s): Requested Prescriptions Pending Prescriptions Disp Refills HYDROcodone-acetaminophen (NORCO) 5-325 mg per tablet 60 tablet 0 Sig: Take 1 tablet by mouth twice daily as needed for up to 30 days. Date of last office visit in primary care: 10/15/22 Please advise. Thank you. Nel Cope LPN [facility] Miscellaneous Notes* Telephone Encounter - Nel Cope LPN - 11/09/2022 11:20 AM EST Patient has been identified by name and date of : Yes Pharmacy phones for refill(s): Requested Prescriptions Pending Prescriptions Disp Refills pioglitazone (ACTOS) 15 mg tablet [Pharmacy Med Name: PIOGLITAZONE HCL 15 MG TABLET] 90 tablet 5 Sig: take 1 tablet by mouth once daily Pharmacy requesting 90 day supply Please advise. Thank you. Nel Cope LPN documented in this encounter[facility]30-2022 Miscellaneous Notes* Telephone Encounter - Michelle Bucio RN - 11/05/2022 12:14 PM EST Pts daughter called and is notified of providers results and instructions. She voices understanding. Michelle Bucio RN * Telephone Encounter - Evelyn Lao RN - 11/05/2022 8:51 AM EST Call placed to patient and message left for daughter (Mariela) to return call to a triage nurse to receive message. Evelyn Lao RN * Telephone Encounter - Stephani Crooks PA-C - 11/05/2022 8:30 AM EST Let family know that her a1c is 6.4% which is great. But with the changes we made in her medicationyesterday, would still recommend monitoring glucose at home. Cholesterol is normal. Metabolic panel is okay. Mild elevation in creatinine could be sign of a little dehydration. Stephani Crooks PA-C documented in this encounterMercy [facility]12-29-2022 NoteHNO ID: [id number] Author: Stephani Crooks PA-C Service: ? Author Type: Physician Final Assembly And Packing Supervisor Type: Progress Notes Filed: 11/04/2022 1:40 PM Note Text: Chief Complaint No chief complaint on file. HPI Robbin Singh is a 82 year old female who presents here today for Chronic Medical Conditions.. Patient is here today with daughter, Mariela and her sister, Gail. Patient has hx of noncompliance and not always good with follow ups. Recently she has cancelled multiple appointments. Patient states she feels okay and that's why she cancels. She has hx of DM2, HTN, hyperlipidemia, COPD, Memory loss, CHF, TACO, and those as below. Daughter states that depression was better when on zoloft and since Robbin is still having bad dreams, they prefer her to go back on zoloft. They wonder if metformin is causing GI symptoms still. A pause on the medication has been tried before however it is unclear if patient actually followed through or not. But now that daughter has been making sure patient gets her medications daily, they have noted worsening GI symptoms. Past medical history, appointments, medications, allergies reviewed. Previous Medical History PAST MEDICAL HISTORY Diagnosis Date Anxiety and depression 01/01/2019 Arthritis of shoulder region, degenerative right Corticosteroid 09/20/14, left corticosteroid 10/07/14 Arthritis, multiple joint involvement 01/16/2018 Advised tylenol Arthritis 11/15/2018 and to avid NSAID's with her Hx of stomach issues and being diabetic for risk of renal impairment. Bilateral leg edema 07/31/2019 Bilateral primary osteoarthritis of knee 03/26/2019 Cervical spondylosis with myelopathy 07/29/2015 Chronic diastolic heart failure (HCC), mild. 08/27/[address] Bravo. Chronic pain of both knees 11/16/2019 CKD (chronic kidney disease) stage 3, GFR 30-59 ml/min (HCC) 01/01/2019 COPD with chronic bronchitis ([facility]) 02/15/2017 Dr. Brito Current use of proton pump inhibitor 11/25/2016 Mg checked 11/2017 DDD (degenerative disc disease), cervical 07/29/2015 DDD (degenerative disc disease), lumbar 05/08/2013 Diabetes mellitus type 2 in obese ([facility]) 06/2015 a1c 6.5% Diabetic eye exam ([facility]) 03/15/2017 Last done: 10/24/2019 No Retinopathy Essential hypertension 08/17/2012 Ex-smoker 07/21/2017 Started around age 21 up to 2.3-3 PPD, Quit around age 57 Frequency of micturition 12/27/2016 Frequent falls 05/15/2019 GERD without esophagitis 11/25/[address] Slade Hearing loss in left ear Hip pain 12/23/2014 History of melanoma Interstitial cystitis Lumbar radiculopathy 04/29/2014 Lumbar spondylosis Lymphadenopathy of left cervical region 12/18/2013 MCI (mild cognitive impairment) 01/01/2019 Mechanical back pain 12/08/[address] Quezada for pain management. Medicare annual wellness visit, subsequent 12/05/2017 Medicare part B: 07/08/2005 last done:01/04/2020 Mixed hyperlipidemia 08/17/2012 Neuropathic pain 12/08/2012 Obesity, Class III, BMI >= 40 06/26/2018 TACO (obstructive sleep apnea) DME [employer] fx [phone] Pain due to total left knee replacement ([facility]) 06/08/2018 Personal history of colonic polyps 01/23/2016 Primary insomnia 03/16/2017 [facility] 06/26/2018 recommended Klonopin every other day for a week and then just as needed. Primary osteoarthritis of right knee 07/13/2016 Pulmonary hypertension ([facility]) 05/19/2022 Seeing pulm and cardio Pulmonary nodules 03/03/2013 Incidental non-calcified nodules 10/09/2012. Repeat CT due 06/2013 Recurrent major depressive disorder, in full remission ([facility]) 08/17/2012 Rheumatoid arthritis(714.0) Spondylosis of lumbar region without myelopathy or radiculopathy 05/28/2015 Status post total left knee replacement 06/08/2018 Stress incontinence 11/21/[address] Armas. Thyroid nodule 11/15/2018 Stable on US 2017 Type 2 diabetes mellitus with stage 3 chronic kidney disease, without long-term current use of insulin (HCC) 06/06/2017 Urge incontinence 11/21/2012 Previous Surgical History PAST SURGICAL HISTORY Procedure Laterality Date ARTHRP KNE CONDYLEANDPLATU MEDIALANDLAT COMPARTMENTS Left 06/08/2012 CHOLECYSTECTOMY HX 10/30/1997 COLONOSCOPY AND POLYPECTOMY ~2007 2 polyps COLONOSCOPY AND POLYPECTOMY ~2001 7 polyps COLONOSCOPY AND POLYPECTOMY 11/30/2011 COLONOSCOPY FLX DX W/COLLJ SPEC WHEN PFRMD 11/29/12 Colonoscopy repeat 3 years COLONOSCOPY FLX DX W/COLLJ SPEC WHEN PFRMD 01/28/16 Colonoscopy with mac CYSTOSCOPY 09/21/12 EGD 10/17/2011 Dr Negrete in [place] ESOPHAGOGASTRODUODENOSCOPY TRANSORAL DIAGNOSTIC 05/16/2014 EGD ESOPHAGOGASTRODUODENOSCOPY TRANSORAL DIAGNOSTIC 09/12/14 EGD ESOPHAGOGASTRODUODENOSCOPY TRANSORAL DIAGNOSTIC 01/06/2017 EGD ESOPHAGOGASTRODUODENOSCOPY TRANSORAL DIAGNOSTIC 07/21/2020 EGD REMOVE CATARACT, INSERT LENS, INTRACAPSUL Bilateral 2008 Family History FAMILY HISTORY Problem Relation Age of Onset Hypertension Mother Heart Mother Lipids Mother HIGH CHOL (more content not included)...[facility]12-29-2022 Instructions* Patient Instructions* Stephani Crooks PA-C - 11/04/2022 1:21 PM EST Stop prozac- restart zoloft. Decrease metformin to 1000mg at night. See if this helps with the nausea. Start actos for help on Diabetes management since we are decreasing metformin. Labs today. documented in this encounterMer[facility]12-29-2022 History of Present illness Narrative* Stephani Crooks PA-C - 11/04/2022 12:54 PM EST Chief Complaint No chief complaint on file. HPI Robbin Singh is a 82 year old female who presents here today for Chronic Medical Conditions.. Patient is here today with daughter, Mariela and her sister, Gail. Patient has hx of noncompliance and not always good with follow ups. Recently she has cancelled multiple appointments. Patient states she feels okay and that's why she cancels. She has hx of DM2, HTN, hyperlipidemia, COPD, Memory loss, CHF, TACO, and those as below. Daughter states that depression was better when on zoloft and since Robbin is still having bad dreams, they prefer her to go back on zoloft. They wonder if metformin is causing GI symptoms still. A pause on the medication has been tried before however it is unclear if patient actually followed through or not. But now that daughter has been making sure patient gets her medications daily, they have noted worsening GI symptoms. Past medical history, appointments, medications, allergies reviewed. Previous Medical History PAST MEDICAL HISTORY Diagnosis Date Anxiety and depression 01/01/2019 Arthritis of shoulder region, degenerative right Corticosteroid 09/20/14, left corticosteroid 10/07/14 Arthritis, multiple joint involvement 01/16/2018 Advised tylenol Arthritis 11/15/2018 and to avid NSAID's with her Hx of stomach issues and being diabetic for risk of renal impairment. Bilateral leg edema 07/31/2019 Bilateral primary osteoarthritis of knee 03/26/2019 Cervical spondylosis with myelopathy 07/29/2015 Chronic diastolic heart failure (HCC), mild. 08/27/[address] Braov. Chronic pain of both knees 11/16/2019 CKD (chronic kidney disease) stage 3, GFR 30-59 ml/min ([facility]) 01/01/2019 COPD with chronic bronchitis ([facility]) 02/15/2017 Dr. Brito Current use of proton pump inhibitor 11/25/2016 Mg checked 11/2017 DDD (degenerative disc disease), cervical 07/29/2015 DDD (degenerative disc disease), lumbar 05/08/2013 Diabetes mellitus type 2 in obese ([facility]) 06/2015 a1c 6.5% Diabetic eye exam ([facility]) 03/15/2017 Last done: 10/24/2019 No Retinopathy Essential hypertension 08/17/2012 Ex-smoker 07/21/2017 Started around age 21 up to 2.3-3 PPD, Quit around age 57 Frequency of micturition 12/27/2016 Frequent falls 05/15/2019 GERD without esophagitis 11/25/[address] Slade Hearing loss in left ear Hip pain 12/23/2014 History of melanoma Interstitial cystitis Lumbar radiculopathy 04/29/2014 Lumbar spondylosis Lymphadenopathy of left cervical region 12/18/2013 MCI (mild cognitive impairment) 01/01/2019 Mechanical back pain 12/08/[address] Quezada for pain management. Medicare annual wellness visit, subsequent 12/05/2017 Medicare part B: 07/08/2005 last done:01/04/2020 Mixed hyperlipidemia 08/17/2012 Neuropathic pain 12/08/2012 Obesity, Class III, BMI >= 40 06/26/2018 TACO (obstructive sleep apnea) DME [employer] fx [phone] Pain due to total left knee replacement (HCC) 06/08/2018 Personal history of colonic polyps 01/23/2016 Primary insomnia 03/16/2017 [facility] 06/26/2018 recommended Klonopin every other day for a week and then just as needed. Primary osteoarthritis of right knee 07/13/2016 Pulmonary hypertension ([facility]) 05/19/2022 Seeing pulm and cardio Pulmonary nodules 03/03/2013 Incidental non-calcified nodules 10/09/2012. Repeat CT due 06/2013 Recurrent major depressive disorder, in full remission ([facility]) 08/17/2012 Rheumatoid arthritis(714.0) Spondylosis of lumbar region without myelopathy or radiculopathy 05/28/2015 Status post total left knee replacement 06/08/2018 Stress incontinence 11/21/[address] Armas. Thyroid nodule 11/15/2018 Stable on 2017 Type 2 diabetes mellitus with stage 3 chronic kidney disease, without long-term current use of insulin ([facility]) 06/06/2017 Urge incontinence 11/21/2012 Previous Surgical History PAST SURGICAL HISTORY Procedure Laterality Date ARTHRP KNE CONDYLE&PLATU MEDIAL&LAT COMPARTMENTS Left 06/08/2012 CHOLECYSTECTOMY HX 10/30/1997 COLONOSCOPY & POLYPECTOMY ~2007 2 polyps COLONOSCOPY & POLYPECTOMY ~2001 7 polyps COLONOSCOPY & POLYPECTOMY 11/30/2011 COLONOSCOPY FLX DX W/COLLJ SPEC WHEN PFRMD 11/29/12 Colonoscopy repeat 3 years COLONOSCOPY FLX DX W/COLLJ SPEC WHEN PFRMD 01/28/16 Colonoscopy with mac CYSTOSCOPY 09/21/12 EGD 10/17/2011 Dr Negrete in [place] ESOPHAGOGASTRODUODENOSCOPY TRANSORAL DIAGNOSTIC 05/16/2014 EGD ESOPHAGOGASTRODUODENOSCOPY TRANSORAL DIAGNOSTIC 09/12/14 EGD ESOPHAGOGASTRODUODENOSCOPY TRANSORAL DIAGNOSTIC 01/06/2017 EGD ESOPHAGOGASTRODUODENOSCOPY TRANSORAL DIAGNOSTIC 07/21/2020 EGD REMOVE CATARACT, INSERT LENS, INTRACAPSUL Bilateral 2008 Family History FAMILY HISTORY Problem Relation Age of Onset Hypertension Mother Heart Mother Lipids Mother HIGH CHOLESTEROL Heart Father SD Ischemic Heart Disease Father STROKE other (diabetic) Father Diabetes Sister Diabetes Sister Breast Cancer Sister Patient Allergies ALLERGIES Allergen Reactions Bactrim [Sulfametho* Itching Codeine Mental Status Change Garlic Oil Other: See Comments Lexapro [Escitalopr* Other: See Comments rapid heart rate Oxybutynin Other: See Comments suggerst by [facility] to stop since it can add to memory issues. Tramadol Other: See Comments Heart racing, SOB Zoloft [Sertraline * Other: See Comments takes celexa Current Medications Current Outpatient Medications on File Prior to Visit Medication Sig albuterol (PROVENTIL) 2.5 mg /3 mL (0.083 %) nebulizer solution Use 3 mL via nebulizer every 6 hours as needed for wheezing/shortness of breath. Use over 5-15minutes. FLUoxetine (PROZAC) 20 mg capsule Take 1 capsule by mouth once daily. isosorbide mononitrate ER (IMDUR) 30 mg 24 hr tablet Take 1 tablet by mouth once daily. losartan (COZAAR) 50 mg tablet Take 1 tablet by mouth once daily. pantoprazole DR (PROTONIX) 40 mg tablet Take 1 tablet by mouth twice daily. atorvastatin (LIPITOR) 40 mg tablet Take 1 tablet by mouth once daily. flash glucose scanning reader (FREESTYLE ADELINA 2 READER) Last A1c 9.8, Dx 11.22 no insulin. Is to check insulin fasting and 2 hrs after lunch and dinner. flash glucose sensor (FREESTYLE ADELINA 2 SENSOR) kit Apply new sensor every two weeks. Last A1c 9.8,Dx 11.22 no insulin. Is to check insulin fasting and 2 hrs after lunch and dinner. spironolactone (ALDACTONE) 25 mg tablet Take 1 tablet by mouth once daily. diclofenac (VOLTAREN ARTHRITIS PAIN) 1 % topical gel Apply 4 g to affected area four times daily. blood sugar diagnostic (BLOOD GLUCOSE TEST) test strip Test blood sugar(s) 2 times daily: fasting and two hrs after a large meal . Dx: Type 2 DM - Uncontrolled E11.65 Insulin: No Lancets lancets Test blood sugar(s) 2 times daily: fasting and two hrs after a large meal . Dx: Type 2 DM - Uncontrolled E11.65 Insulin: No donepezil (ARICEPT) 10 mg tablet Take 1 tablet by mouth daily at bedtime. metFORMIN ER (GLUCOPHAGE XR) 500 mg 24 hr tablet Take 2 tablets by mouth twice daily with meals. furosemide (LASIX) 20 mg tablet Take 1 tablet by mouth twice daily. albuterol HFA (PROAIR HFA) 90 mcg/actuation inhaler Inhale 2 Puffs as instructed every 4 hours as needed for wheezing/shortness of breath (With Spacer). Lancing Device with Lancets (ACCU-CHEK SOFT DEV LANCETS) 1 Device once daily. Lancet device to use with Accuchek lancets DX E11.22 Insulin No aspirin 81 mg chewable tablet Take 81 mg by mouth once daily. OMEGA-3 FATTY ACIDS (FISH OIL CONCENTRATE ORAL) Take 1 tablet by mouth once daily. HYDROcodone-acetaminophen (NORCO) 5-325 mg per tablet Take 1 tablet by mouth twice daily as needed for up to 30 days. magnesium oxide 200 mg magnesium tab Take 1 tablet by mouth once daily. (Patient not taking: Reported on 11/04/2022) MEDICAL SUPPLY One motorized scooter appropriate for weight (293 lbs). Patient needs this medicallydue to the chronic pain she has related to arthritis in multiple joints such as her back and knees which limits her mobility, quality of life and increase risck for falls. Dx:M12.9, M25.561, M50.30, M51.36, M54.9, R29.6 FLUoxetine (PROZAC) 20 mg capsule Take 1 capsule by mouth once daily. Walker (ULTRA-LIGHT ROLLATOR) misc One Rolator with seat. Dx: J44.9, M54.9, M12.9 and R29.6 Calcium Citrate-Vitamin D3 (CITRACAL+D) 315 mg- 250 unit tab Take by mouth. (Patient not taking: Reported on 11/04/2022) Nebulizer NEBULIZER FOR HOME USE. DX: J44.9 Current Facility-Administered Medications on File Prior to Visit Medication perflutren lipid microspheres 1.3 mL in NaCl (PF) 0.9% 10 mL injection (DEFINITY) sodium chloride 0.9 % (flush) 10 mL (BD POSIFLUSH) Social History Social History Tobacco Use Smoking status: Former Packs/day: 3.00 Years: 35.00 Pack years: 105.00 Types: Cigarettes Quit date: 09/22/1997 Years since quittin.1 Smokeless tobacco: Never Vaping Use Vaping Use: Never used Substance Use Topics Alcohol use: No Drug use: No Review of Symptoms REVIEW OF SYSTEMS GENERAL: No weight loss, malaise or fevers NECK: Negative for lumps, goiter, pain and significant neck swelling RESPIRATORY: Negative for cough, hemoptysis, wheezing, COPD, dyspnea or shortness of breath CARDIOVASCULAR: Negative for chest pain, leg swelling, hypertension, CHF or palpitations EXAM: BP 122/84 (BP Site: Left Arm, BP Position: Sitting, BP Cuff Size: Large Adult) Pulse 84 Resp 20 Wt 126.6 kg (279 lb) BMI 51.03 kg/m General Appearance: Well appearing, alert, in no acute distress, well-hydrated, well nourished.. Neck: Supple, no adenopathy; thyroid symmetric, normal size, no bruits. Lungs: Lungs clear to auscultation. No wheezing, rhonchi, rales.. Heart: RRR without murmur, gallop, or rubs. No ectopy. Extremities: No deformities, edema, skin discoloration, clubbing or cyanosis. Good capillary refill. . Peripheral Pulses: Normal. Health Maintenance List DTAP,TDAP,TD(1 - Tdap) Never done SHINGRIX VACCINE(2 of 3) due on 05/22/2014 ADVANCE DIRECTIVE DISCUSSION Never done DILATED RETINAL EXAM due on 12/09/2021 COVID-19 VACCINE(4 - Booster for Moderna series) due on 12/19/2021 DIABETIC FOOT EXAM due on 01/05/2022 INFLUENZA(1) due on 07/08/2022 HBA1C due on 08/07/2022 URINE ALBUMIN:CREATININE RATIO due on 05/07/2023 LDL CHOLESTEROL due on 05/07/2023 BONE DENSITY Completed SPIROMETRY Completed PNEUMOCOCCAL: 65+ Completed Data reviewed N/a ASSESSMENT/PLAN: 1. Type 2 diabetes mellitus with stage 3 chronic kidney disease, without long- term current use of insulin, unspecified whether stage 3a or 3b CKD (HCC) - ICD9: 250.40, 585.3, ICD10: E11.22, N18.30 (primary diagnosis) Await labs Decrease metformin and add actos. Check a1c. Follow up in 4 months Advised to try CGM again - HGB A1C - COMP METABOLIC PANEL 2. Essential hypertension - ICD9: 401.9, ICD10: I10 - good control - Continue current medication(s) - Recommended regular aerobic exercise. - Recommend home blood pressure monitoring, to bring results in on next visit - Goal of BP <130/80 - COMP METABOLIC PANEL 3. Mixed hyperlipidemia - ICD9: 272.2, ICD10: E78.2 - to be determined upon return of lab results - Encouraged following a low carbohydrate, healthy oil intake diet. - Continue current therapy. - LIPID PANEL, NONFASTING 4. Encounter for immunization - ICD9: V03.89, ICD10: Z23 - INFLUENZA SEASONAL QUADRIVALENT HIGH DOSE AGE 65+ 5. Stage 3 chronic kidney disease, unspecified whether stage 3a or 3b CKD (HCC) - ICD9: 585.3, ICD10: N18.30 Await labs 6. GERD without esophagitis - ICD9: 530.81, ICD10: K21.9 stable 7. MCI (mild cognitive impairment) - ICD9: 331.83, ICD10: G31.84 stable 8. Recurrent major depressive disorder, in full remission (HCC) - ICD9: 296.36, ICD10: F33.42 Will stop prozac and return to zoloft per family request 9. Obesity, Class III, BMI 40-49.9 (morbid obesity) (HCC) - ICD9: 278.01, ICD10: E66.01 Weight decreasing - Behavioral intervention Stephani Crooks PA-C documented in this encounterMer[facility]12-08-2022 Miscellaneous Notes* Telephone Encounter - Julia Bradley RN - 10/14/2022 10:55 AM EST Opened In Error documented in this encounterMercy [facility] Hospital11-09-2022 Miscellaneous Notes* Telephone Encounter - Antionette Coleman MA - 09/15/2022 8:15 AM EST Medication attached to another phone encounter. Antionette Coleman MA documented in this encounterMercy Health [facility] Hospital11-09-2022 Miscellaneous Notes* Telephone Encounter - Antionette Coleman MA - 09/15/2022 8:12 AM EST Patient has been identified by name and date of : Yes Requested Prescriptions Pending Prescriptions Disp Refills FLUoxetine (PROZAC) 20 mg capsule 90 capsule 1 Sig: Take 1 capsule by mouth once daily. RX INSTRUCTIONS: Patient aware RX will be sent to pharmacy. No need to notify patient. Antionette Coleman MA Tavo: 06/2022 Nov; 09/2022 Last refill: 06/2022 documented in this encounterMercy [facility] Hospital11-01-2022 Miscellaneous Notes* Telephone Encounter - Leno Briggs MD - 09/07/2022 8:53 PM EDT The following approved medication requests have been transmitted electronically. Requested Prescriptions Signed Prescriptions Disp Refills HYDROcodone-acetaminophen (NORCO) 5-325 mg per tablet 60 tablet 0 Sig: Take 1 tablet by mouth twice daily as needed for up to 30 days. Authorizing Provider: LENO BRIGGS MD PDMP website checked and validated. All prescriptions have been APPROPRIATELY filled. No suspiciousactivity was identified. 09/07/2022 by Leno Briggs MD * Telephone Encounter - Nel Cope LPN - 09/07/2022 3:43 PM EDT Patient has been identified by name and date of : Yes Patient phones for refill(s): Requested Prescriptions Pending Prescriptions Disp Refills HYDROcodone-acetaminophen (NORCO) 5-325 mg per tablet 60 tablet 0 Sig: Take 1 tablet by mouth twice daily as needed for up to 30 days. Date of last office visit in primary care: 06/15/22 Please advise. Thank you. Nel Cope LPN documented in this encounterMercy [facility] Hospital10-21-2022 Miscellaneous Notes* Telephone Encounter - Leno Briggs MD - 08/27/2022 8:17 AM EDT The following approved medication requests have been transmitted electronically. Requested Prescriptions Signed Prescriptions Disp Refills isosorbide mononitrate ER (IMDUR) 30 mg 24 hr tablet 90 tablet 0 Sig: Take 1 tablet by mouth once daily. Authorizing Provider: LENO BRIGGS MD * Telephone Encounter - Brianne Chiang LPN - 08/27/2022 7:37 AM EDT Patient phones requesting refills as follows: Requested Prescriptions Pending Prescriptions Disp Refills isosorbide mononitrate ER (IMDUR) 30 mg 24 hr tablet 90 tablet 0 Sig: Take 1 tablet by mouth once daily. TAVO-07/05/22 Labs-07/05/22 NOV-09/24/22 med filled 03/22/22 Please review and advise. Brianne Chiang LPN documented in this encounterMercy Health [facility] Hospital09-28-2022 Miscellaneous Notes* Telephone Encounter - Stephani Crooks PA-C - 08/04/2022 12:14 PM EDT The following approved medication requests have been transmitted electronically. Requested Prescriptions Signed Prescriptions Disp Refills HYDROcodone-acetaminophen (NORCO) 5-325 mg per tablet 60 tablet 0 Sig: Take 1 tablet by mouth twice daily as needed for up to 30 days. Authorizing Provider: STEPHANI CROOKS PA-C * Telephone Encounter - Antionette Coleman MA - 08/04/2022 8:48 AM EDT Patient has been identified by name and date of : Yes Requested Prescriptions Pending Prescriptions Disp Refills HYDROcodone-acetaminophen (NORCO) 5-325 mg per tablet 60 tablet 0 Sig: Take 1 tablet by mouth twice daily as needed for up to 30 days. RX INSTRUCTIONS: Patient aware RX will be sent to pharmacy. No need to notify patient. Antionette Coleman MA Tavo: 06/2022 Nov: 09/2022 Last refill: 07/04/2022 documented in this encounterMercy Health [facility] Hospital09-20-2022 Miscellaneous Notes* Telephone Encounter - Antionette Coleman MA - 07/27/2022 10:16 AM EDT Spoke with patient and she indicated that she will check with her insurance and she indicated at this point she will wait on the motorized scooter. I advised patient to reach out to us when she is ready. She voiced understanding. Antionette Coleman MA * Telephone Encounter - ZULEMA Salazar - 07/16/2022 10:36 AM EDT Sw will refer patients to Passport if patient needs help with ADL's ie. Bathing, grooming, mobility. [facility] [employer] ph. [phone] also will assess if patient are eligible for Medicaid as that is a requirement for Passport program. Sw looked back through notes and does not see any mention in regards to previous Passport referral or notes in regards to patient already having Passport services. Passport usually helps with home safety modifications, group home manager, home delivered meals, medical alert button costs if eligible. If patient would be open to Sw referring, [facility] would do the in home assessment to seeif eligible. * Telephone Encounter - Antionette Coleman MA - 07/16/2022 10:00 AM EDT How do we find out if that patient is eligible for Passport? Antionette Coleman MA * Telephone Encounter - ZULEMA Salazar - 07/15/2022 1:54 PM EDT Sw has had patient's purchase motorized scooters from [address] in [place]. [employer] ph.[phone] or fax#[phone]. I have not found insurance to be covering the cost of scooters unless they may be eligible for [facility] program. * Telephone Encounter - Antionette Coleman MA - 07/15/2022 11:56 AM EDT Motorized scooter. Thank you. Antionette Coleman MA * Telephone Encounter - ZULEMA Salazar - 07/15/2022 11:29 AM EDT Is it a wheelchair she is needing or a motorized scooter? Just wanting to clarify as I see both mentioned in note. * Telephone Encounter - Antionette Coleman MA - 07/15/2022 11:17 AM EDT Flaquita any ideas??? Contacted patient and she indicated that she had not heard from anyone. I told patient I would ask Vo[employer] Technician if she had any other ideas on places for motorized scooters for insurance. If not we have to wait on [facility]. Antionette Coleman MA * Telephone Encounter - Antionette Coleman MA - 07/07/2022 11:20 AM EDT Tried calling [employer] and they do not have motorized scooters. Antionette Coleman MA * Telephone Encounter - Grecia Riley LPN - 07/06/2022 10:06 AM EDT Received fax from [facility] that wheelchair that was ordered for pt is on backorder and they are unable to obtain. Advised pt of same and she will check and see if there is anywhere else her insurance will approve of that office can fax order to to see if they can get wheelchair for pt. She will callback with information. Grecia Riley LPN documented in this encounterMercy [facility] Hospital09-19-2022 Miscellaneous Notes* Telephone Encounter - Joy Hicks Ma - 07/26/2022 10:51 AM EDT Please see pt daughter message. Joy Hicks Ma documented in this encounterMercy Health West Hospital08-30-2022 Miscellaneous Notes* Telephone Encounter - Grecia Riley LPN - 07/06/2022 11:18 AM EDT Left message of same on daughter, Shae identified vm. Grecia Riley LPN * Telephone Encounter - Leno Briggs MD - 07/06/2022 11:06 AM EDT Let daughter know electrolyte panel was ok. documented in this encounterMercy Health West Hospital08-30-2022 Miscellaneous Notes* Telephone Encounter - Grecia Riley LPN - 07/06/2022 8:48 AM EDT Patient notified of results and provider's instructions. Patient verbalizes understanding. Grecia Riley LPN * Telephone Encounter - Stephani Crooks PA-C - 07/06/2022 8:39 AM EDT Magnesium level is a little low. Recommend starting magnesium 200mg. Will send in script but insurance may require to buy OTC. Stephani Crooks PA-C documented in this encounterMercy Health West Hospital08-29-2022 History of Present illness Narrative* Leno Briggs MD - 07/05/2022 3:20 PM EDT Chief Complaint Patient presents with: Follow Up: [facility] Robbin Singh is a 81 year old female who presents here today for 4 week follow up on Depression/HTN/Edema and Medication. Patient indicated that she contacted insurance and they will approve a scooter for patient if recommended by her PCP. They will pay for 80-90% and can be faxed to [facility] [phone]. Patient here with her daughter today. Patient has recently been released for [facility] services due to meeting goals. At last visit I changes her from Celexa to Zoloft but then she enveloped nightmares. This was stopped and changed to Prozac 20 mg a day and doing better. No further nightmares and mood and anxiety seem to be better per daughter. We also started her on aldactone and has tolerated well and the swelling in her legs has improved. Patient has appt's set up to see Pulm and cardiology in the next few months. Taking the [place] twice a day does help her knee pain. Also uses Voltaren gel with benefit. Past medical history, appointments, medications, allergies reviewed. Previous Medical History PAST MEDICAL HISTORY Diagnosis Date Anxiety and depression 01/01/2019 Arthritis of shoulder region, degenerative right Corticosteroid 09/20/14, left corticosteroid 10/07/14 Arthritis, multiple joint involvement 01/16/2018 Advised tylenol Arthritis 11/15/2018 and to avid NSAID's with her Hx of stomach issues and being diabetic for risk of renal impairment. Bilateral leg edema 07/31/2019 Bilateral primary osteoarthritis of knee 03/26/2019 Cervical spondylosis with myelopathy 07/29/2015 Chronic diastolic heart failure (HCC), mild. 08/27/[address] Bravo. Chronic pain of both knees 11/16/2019 CKD (chronic kidney disease) stage 3, GFR 30-59 ml/min ([facility]) 01/01/2019 COPD with chronic bronchitis ([facility]) 02/15/2017 Dr. Brito Current use of proton pump inhibitor 11/25/2016 Mg checked 11/2017 DDD (degenerative disc disease), cervical 07/29/2015 DDD (degenerative disc disease), lumbar 05/08/2013 Diabetes mellitus type 2 in obese ([facility]) 06/2015 a1c 6.5% Diabetic eye exam ([facility]) 03/15/2017 Last done: 10/24/2019 No Retinopathy Essential hypertension 08/17/2012 Ex-smoker 07/21/2017 Started around age 21 up to 2.3-3 PPD, Quit around age 57 Frequency of micturition 12/27/2016 Frequent falls 05/15/2019 GERD without esophagitis 11/25/[address] Slade Hearing loss in left ear Hip pain 12/23/2014 History of melanoma Interstitial cystitis Lumbar radiculopathy 04/29/2014 Lumbar spondylosis Lymphadenopathy of left cervical region 12/18/2013 MCI (mild cognitive impairment) 01/01/2019 Mechanical back pain 12/08/[address] Quezada for pain management. Medicare annual wellness visit, subsequent 12/05/2017 Medicare part B: 07/08/2005 last done:01/04/2020 Mixed hyperlipidemia 08/17/2012 Neuropathic pain 12/08/2012 Obesity, Class III, BMI >= 40 06/26/2018 TACO (obstructive sleep apnea) DME [employer] [facility] [phone] Pain due to total left knee replacement (HCC) 06/08/2018 Personal history of colonic polyps 01/23/2016 Primary insomnia 03/16/2017 [facility] 06/26/2018 recommended Klonopin every other day for a week and then just as needed. Primary osteoarthritis of right knee 07/13/2016 Pulmonary hypertension (HCC) 05/19/2022 Seeing pulm and cardio Pulmonary nodules 03/03/2013 Incidental non-calcified nodules 10/09/2012. Repeat CT due 06/2013 Recurrent major depressive disorder, in full remission ([facility]) 08/17/2012 Rheumatoid arthritis(714.0) Spondylosis of lumbar region without myelopathy or radiculopathy 05/28/2015 Status post total left knee replacement 06/08/2018 Stress incontinence 11/21/[address] Armas. Thyroid nodule 11/15/2018 Stable on US 2017 Type 2 diabetes mellitus with stage 3 chronic kidney disease, without long-term current use of insulin (HCC) 06/06/2017 Urge incontinence 11/21/2012 Previous Surgical History PAST SURGICAL HISTORY Procedure Laterality Date ARTHRP KNE CONDYLE&PLATU MEDIAL&LAT COMPARTMENTS Left 06/08/2012 CHOLECYSTECTOMY HX 10/30/1997 COLONOSCOPY & POLYPECTOMY ~2007 2 polyps COLONOSCOPY & POLYPECTOMY ~2001 7 polyps COLONOSCOPY & POLYPECTOMY 11/30/2011 COLONOSCOPY FLX DX W/COLLJ SPEC WHEN PFRMD 11/29/12 Colonoscopy repeat 3 years COLONOSCOPY FLX DX W/COLLJ SPEC WHEN PFRMD 01/28/16 Colonoscopy with mac CYSTOSCOPY 09/21/12 EGD 10/17/2011 Dr Negrete in [place] ESOPHAGOGASTRODUODENOSCOPY TRANSORAL DIAGNOSTIC 05/16/2014 EGD ESOPHAGOGASTRODUODENOSCOPY TRANSORAL DIAGNOSTIC 09/12/14 EGD ESOPHAGOGASTRODUODENOSCOPY TRANSORAL DIAGNOSTIC 01/06/2017 EGD ESOPHAGOGASTRODUODENOSCOPY TRANSORAL DIAGNOSTIC 07/21/2020 EGD REMOVE CATARACT, INSERT LENS, INTRACAPSUL Bilateral 2008 Family History FAMILY HISTORY Problem Relation Age of Onset Hypertension Mother Heart Mother Lipids Mother HIGH CHOLESTEROL Heart Father SD Ischemic Heart Disease Father STROKE other (diabetic) Father Diabetes Sister Diabetes Sister Breast Cancer Sister Patient Allergies ALLERGIES Allergen Reactions Bactrim [Sulfametho* Itching Codeine Mental Status Change Garlic Oil Other: See Comments Lexapro [Escitalopr* Other: See Comments rapid heart rate Oxybutynin Other: See Comments suggerst by [employer] to stop since it can add to memory issues. Tramadol Other: See Comments Heart racing, SOB Zoloft [Sertraline * Other: See Comments takes celexa Current Medications Current Outpatient Medications on File Prior to Visit Medication Sig HYDROcodone-acetaminophen (NORCO) 5-325 mg per tablet Take 1 tablet by mouth twice daily as needed for up to 30 days. FLUoxetine (PROZAC) 20 mg capsule Take 1 capsule by mouth once daily. FLUoxetine (PROZAC) 20 mg capsule Take 1 capsule by mouth once daily. albuterol (PROVENTIL) 2.5 mg /3 mL (0.083 %) nebulizer solution Use 3 mL via nebulizer every 6 hours as needed for wheezing/shortness of breath. Use over 5-15minutes. losartan (COZAAR) 50 mg tablet Take 1 tablet by mouth once daily. pantoprazole DR (PROTONIX) 40 mg tablet Take 1 tablet by mouth twice daily. atorvastatin (LIPITOR) 40 mg tablet Take 1 tablet by mouth once daily. flash glucose scanning reader (FREESTYLE ADELINA 2 READER) Last A1c 9.8, Dx 11.22 no insulin. Is to check insulin fasting and 2 hrs after lunch and dinner. flash glucose sensor (FREESTYLE ADELINA 2 SENSOR) kit Apply new sensor every two weeks. Last A1c 9.8,Dx 11.22 no insulin. Is to check insulin fasting and 2 hrs after lunch and dinner. spironolactone (ALDACTONE) 25 mg tablet Take 1 tablet by mouth once daily. diclofenac (VOLTAREN ARTHRITIS PAIN) 1 % topical gel Apply 4 g to affected area four times daily. blood sugar diagnostic (BLOOD GLUCOSE TEST) test strip Test blood sugar(s) 2 times daily: fasting and two hrs after a large meal . Dx: Type 2 DM - Uncontrolled E11.65 Insulin: No Lancets lancets Test blood sugar(s) 2 times daily: fasting and two hrs after a large meal . Dx: Type 2 DM - Uncontrolled E11.65 Insulin: No donepezil (ARICEPT) 10 mg tablet Take 1 tablet by mouth daily at bedtime. metFORMIN ER (GLUCOPHAGE XR) 500 mg 24 hr tablet Take 2 tablets by mouth twice daily with meals. furosemide (LASIX) 20 mg tablet Take 1 tablet by mouth twice daily. albuterol HFA (PROAIR HFA) 90 mcg/actuation inhaler Inhale 2 Puffs as instructed every 4 hours as needed for wheezing/shortness of breath (With Spacer). isosorbide mononitrate ER (IMDUR) 30 mg 24 hr tablet Take 1 tablet by mouth once daily. Lancing Device with Lancets (ACCU-CHEK SOFT DEV LANCETS) 1 Device once daily. Lancet device to use with Accuchek lancets DX E11.22 Insulin No Walker (ULTRA-LIGHT ROLLATOR) [facility] One Rolator with seat. Dx: J44.9, M54.9, M12.9 and R29.6 Calcium Citrate-Vitamin D3 (CITRACAL+D) 315 mg- 250 unit tab Take by mouth. Nebulizer NEBULIZER FOR HOME USE. DX: J44.9 aspirin 81 mg chewable tablet Take 81 mg by mouth once daily. OMEGA-3 FATTY ACIDS (FISH OIL CONCENTRATE ORAL) Take 1 tablet by mouth once daily. Current Facility-Administered Medications on File Prior to Visit Medication perflutren lipid microspheres 1.3 mL in NaCl (PF) 0.9% 10 mL injection (DEFINITY) sodium chloride 0.9 % (flush) 10 mL (BD POSIFLUSH) Social History Social History Tobacco Use Smoking status: Former Packs/day: 3.00 Years: 35.00 Pack years: 105.00 Types: Cigarettes Quit date: 09/22/1997 Years since quittin.8 Smokeless tobacco: Never Vaping Use Vaping Use: Never used Substance Use Topics Alcohol use: No Drug use: No Review of Symptoms REVIEW OF SYSTEMS RESPIRATORY: Negative for cough, hemoptysis, wheezing, COPD, dyspnea or shortness of breath CARDIOVASCULAR: Negative for chest pain, leg swelling, hypertension, CHF or palpitations PSYCH: Negative for sleep disturbance, mood disorder and recent psychosocial stressors, See HPI NEURO: No history of syncope, paralysis, seizures or tremors. Hasa headache a few days a week. EXAM: BP 118/68 (BP Site: Right Arm, BP Position: Sitting, BP Cuff Size: Large Adult) Pulse 86 Resp 20 Wt 132.9 kg (293 lb) SpO2 95% BMI 53.59 kg/m General Appearance: Well appearing, alert, in no acute distress, well-hydrated, well nourished.. Lungs: Lungs clear to auscultation. No wheezing, rhonchi, rales.. Heart: RRR without murmur, gallop, or rubs. No ectopy. Extremities: No deformities, edema, skin discoloration, clubbing or cyanosis. Good capillary refill. . Psych: mood and affect was good. . Health Maintenance List DTAP,TDAP,TD(1 - Tdap) Never done SHINGRIX VACCINE(2 of 3) due on 05/22/2014 ADVANCE DIRECTIVE DISCUSSION Never done DILATED RETINAL EXAM due on 12/09/2021 DIABETIC FOOT EXAM due on 01/05/2022 COVID-19 VACCINE(4 - Booster for Moderna series) due on 02/22/2022 INFLUENZA(1) due on 07/08/2022 HBA1C due on 08/07/2022 URINE ALBUMIN:CREATININE RATIO due on 05/07/2023 LDL CHOLESTEROL due on 05/07/2023 BONE DENSITY Completed SPIROMETRY Completed PNEUMOCOCCAL: 65+ Completed Data reviewed A/P ASSESSMENT/PLAN: 1. Essential hypertension - ICD9: 401.9, ICD10: I10 (primary diagnosis) - good control - Continue current medication(s) - Recommended regular aerobic exercise. - Recommend home blood pressure monitoring, to bring results in on next visit - Goal of BP <130/80 - BASIC METABOLIC PNL 2. COPD with chronic bronchitis (HCC) - ICD9: 491.20, ICD10: J44.9 - improved with regular use of her nebulizer 3. Chronic pain syndrome - ICD9: 338.4, ICD10: G89.4 - stable with [place] 4. Bilateral leg edema - ICD9: 782.3, ICD10: R60.0 - none on exam today 5. Chronic diastolic heart failure (HCC), mild. - ICD9: 428.32, ICD10: I50.32 - clinically improved. No changes and keep appt with Cardio - BASIC METABOLIC PNL Patient needs a scooter medically due to the chronic pain she has related to arthritis in multiple joints such as her back and knees which limits her mobility, quality of life and increase risck for falls. Dx:M12.9, M25.561, M50.30, M51.36, M54.9, R29.6 F/u as scheduled 09/24/2022 Leno Briggs MD documented in this encounterMercy Health West Hospital08-28-2022 Miscellaneous Notes* Telephone Encounter - Leno Briggs MD - 07/04/2022 2:09 PM EDT The following approved medication requests have been transmitted electronically. Requested Prescriptions Signed Prescriptions Disp Refills HYDROcodone-acetaminophen (NORCO) 5-325 mg per tablet 60 tablet 0 Sig: Take 1 tablet by mouth twice daily as needed for up to 30 days. Leno Briggs MD PDMP website checked and validated. All prescriptions have been APPROPRIATELY filled. No suspiciousactivity was identified. 07/04/2022 by Leno Briggs MD * Telephone Encounter - Grecia Riley LPN - 07/03/2022 8:05 AM EDT Please see daughter's message. Grecia Riley LPN documented in this encounterMercy Health West Hospital08-23-2022 Miscellaneous Notes* Telephone Encounter - Leno Briggs MD - 06/29/2022 11:51 AM EDT The following approved medication requests have been transmitted electronically. Requested Prescriptions Signed Prescriptions Disp Refills HYDROcodone-acetaminophen (NORCO) 5-325 mg per tablet 60 tablet 0 Sig: Take 1 tablet by mouth twice daily as needed for up to 30 days. Do not start before June. Authorizing Provider: LENO BRIGGS MD PDMP website checked and validated. All prescriptions have been APPROPRIATELY filled. No suspiciousactivity was identified. 06/29/2022 by Leno Briggs MD * Telephone Encounter - Grecia Riley LPN - 06/29/2022 9:39 AM EDT Last refill 06/01/22 Qty: 60 with 0 refills TAVO 05/24/22 NOV 07/05/22 Grecia Riley LPN documented in this encounterMercy Health West Hospital08-22-2022 Miscellaneous Notes* Telephone Encounter - Leno Briggs MD - 06/28/2022 10:12 PM EDT The following approved medication requests have been transmitted electronically. Requested Prescriptions Signed Prescriptions Disp Refills FLUoxetine (PROZAC) 20 mg capsule 14 capsule 0 Sig: Take 1 capsule by mouth once daily. FLUoxetine (PROZAC) 20 mg capsule 90 capsule 1 Sig: Take 1 capsule by mouth once daily. Leno Briggs MD documented in this encounterMercy Health West Hospital08-08-2022 Miscellaneous Notes* Telephone Encounter - Grecia Riley LPN - 06/14/2022 2:28 PM EDT Left message of same on pt's vm. Grecia Riley LPN * Telephone Encounter - Stephani Crooks PA-C - 06/14/2022 1:42 PM EDT This was sent on 06/01. Stephani Crooks PA-C * Telephone Encounter - Cristina Garcia Ma - 06/14/2022 12:43 PM EDT Last office visit: 05/24/22 F/u scheduled: 07/05/22 Last refilled on: [place] #60 on 06/01/22 Cristina Garcia Ma documented in this encounterMercy Health West Hospital08-08-2022 Miscellaneous Notes* Telephone Encounter - Cristina Garcia Ma - 06/14/2022 12:40 PM EDT Last office visit: 05/24/22 F/u scheduled: 07/05/22 Cristina Garcia Ma documented in this encounterMercy Health West Hospital08-07-2022 History of Present illness Narrative* Leno Briggs MD - 06/13/2022 1:15 PM EDT Patient's home health 485 form / care plan for certification period 05/21/2022 to 07/19/2022 reviewedand signed. Relevant medical records were reviewed. Changes were communicated to home health agency documented in this encounterMercy Health West Hospital08-03-2022 Miscellaneous Notes* Telephone Encounter - Cristina Garcia Ma - 06/09/2022 12:08 PM EDT Janey notified and voiced understanding. Cristina Garcia Ma * Telephone Encounter - Leno Briggs MD - 06/09/2022 12:02 PM EDT Ok to give verbal ok for delay in care. * Telephone Encounter - Leesa Oro RN - 06/08/2022 4:22 PM EDT Janey- - [facility]- reports she is to see patient bi-weekly, but patient is a little overwhelmed right now, and asked SW to come next week. FAITH asking for verbal approval for delay of care. Please phone Janey with verbal. documented in this encounterMercy Health West Hospital07-28-2022 Miscellaneous Notes* Telephone Encounter - Cristina Garcia Ma - 06/03/2022 1:25 PM EDT Addressed in [employer] message. Cristina Garcia Ma * Telephone Encounter - Cristina Garcia Ma - 06/03/2022 1:12 PM EDT Awaiting response from pt on if she has received her 90 day supply from Mail order pharmacy yet? Cristina Garcia Ma documented in this encounterCleveland [id number] Miscellaneous Notes* Telephone Encounter - Antionette Coleman MA - 06/03/2022 12:22 PM EDT Received paperwork from [facility] on PCP desk to sign. Antionette Coleman MA * Telephone Encounter - Antionette Coleman MA - 05/31/2022 8:48 AM EDT Notified [facility] that PCP is out all week. Antionette Coleman MA * Telephone Encounter - Berenice Zarco LPN - 05/28/2022 3:42 PM EDT [facility] calling with plan of care for patient. He plans to see patient twice a week for 3 week for functional mobility training. documented in this [facility]07-26-2022 Miscellaneous Notes* Telephone Encounter - Octavio Hampton MD - 06/01/2022 9:08 AM EDT OK to refill as ordered Octavio Hampton MD * Telephone Encounter - Irene Hardin Ma - 06/01/2022 8:46 AM EDT Patient has been identified by name and date of : Yes Pending Prescriptions Disp Refills HYDROCODONE 5 MG-ACETAMINOPHEN 325 MG TABLET 60 tablet 0 Sig: Take 1 tablet by mouth twice daily as needed for up to 30 days. LUC Class: C-II TYRONE: No Last filled 03/31/22 #60 NOV 07/05/22 TAVO 05/24/22 RX INSTRUCTIONS: Patient aware RX will be sent to pharmacy. No need to notify patient. Irene Hardin Ma documented in this encounterMercy Health West Hospital07-21-2022 Miscellaneous Notes* Telephone Encounter - Grecia Riley LPN - 05/27/2022 11:49 AM EDT Orders faxed as requested to DME [phone]. Grecia Riley LPN * Telephone Encounter - Stephani Crooks PA-C - 05/27/2022 11:32 AM EDT ready * Telephone Encounter - Brandy Hill Ma - 05/27/2022 11:15 AM EDT Patient has Medicare which handles there own PA if they do not approve diabetic supplies. Please print rx and will need to fax to DME Brandy Hill Ma * Telephone Encounter - Lauren Coreas Pss - 05/27/2022 11:01 AM EDT Gial called back in today after speaking with insurance company last night. She was told the officewould have to call [facility] at [phone]. If it is sent there, then it will be covered.Please advise. * Telephone Encounter - Antionette Coleman MA - 05/26/2022 8:42 PM EDT Spoke with Gail and she indicated that the insurance company [facility] and then they would give her the suppliers to where she can get it. She was going to call the insurance company again tomorrow to get more information. Antionette Coleman MA * Telephone Encounter - Leno Briggs MD - 05/26/2022 8:27 PM EDT Please find out what pharmcy family wants the Adelina meter and sensors sent to. Patient needs Blood sugars checked fasting and 2 hrs after lunch and dinner. Patient with dementia and family has difficulty getting finger sticks to get blood to test sugars. * Telephone Encounter - Yu Champagne Pss - 05/26/2022 3:25 PM EDT Gail Larose sister was her last week at appointment with the patient and forgot to mention asking for the Libra2 for the patient. She states that the patient is forget the concept of how to take her blood sugars and her daughter Mariela is currently with the patient but shakes so bad that she is poking the patient. 4-5 times to get a reading. Gail did call insurance and they will only approve if patient is on insulin 3 times a day or if PCP would write a formulary exception letter. Please advise Gail. documented in this encounterMercy Health West Hospital07-20-2022 Miscellaneous Notes* Telephone Encounter - Shira Shell Cma - 05/26/2022 9:15 AM EDT Patient daughter notified and verbalized understanding Shira Shell Cma * Telephone Encounter - Stephani Crooks PA-C - 05/26/2022 9:00 AM EDT Repeat urine is better and culture negative. Stephani Crooks PA-C documented in this encounterMercy Health West Hospital07-20-2022 Miscellaneous Notes* Telephone Encounter - Leesa Oro RN - 05/26/2022 8:30 AM EDT Left detailed vm on identified vm with provider's message below. * Telephone Encounter - Leno Briggs MD - 05/25/2022 8:50 PM EDT Let [place] know I'm fine giving order for her to see her one more time. If she needs more visits letme know. * Telephone Encounter - Shelby Rogel LPN - 05/25/2022 3:46 PM EDT Shanta, nephrology social worker with [facility] calling for verbal order to see pt one more time to follow up on referrals and community resources. Please advise Shanta. Shelby Rogel LPN documented in this encounterMercy Health West Hospital07-18-2022 History of Present illness Narrative* Leno Briggs MD - 05/24/2022 2:50 PM EDT Chief Complaint Patient presents with: Recheck HPI Robbin Singh is a 81 year old female who presents here today for 4 week follow up. Patient brought in by daughter (Mariela) today and her sister ( Gail). Patient continues to complain of left knee pain and some right knee pain. Patient has known loose hardware in the left tibial component. Last year when she saw Ortho in 07/2021 it wsa decided to hold off on surgery. At this point not sure she would be a candidate for surgery. Patient has been using her nebulizer on a more regular basis and family feels she has been breathing easier. Patient had appts with cardio and pulm scheduled on 05/13/2022 but because she did not want to go shecalled and cancelled them. patient does not remember this. [facility] has been out to see her encluding SW, fpc and will also include PHYSICAL THERAPY. There is concern for depression and a psych consult has been placed. Patient is on celexa 20 mg aday. Past medical history, appointments, medications, allergies reviewed. Previous Medical History PAST MEDICAL HISTORY Diagnosis Date Anxiety and depression 01/01/2019 Arthritis of shoulder region, degenerative right Corticosteroid 09/20/14, left corticosteroid 10/07/14 Arthritis, multiple joint involvement 01/16/2018 Advised tylenol Arthritis 11/15/2018 and to avid NSAID's with her Hx of stomach issues and being diabetic for risk of renal impairment. Bilateral leg edema 07/31/2019 Bilateral primary osteoarthritis of knee 03/26/2019 Cervical spondylosis with myelopathy 07/29/2015 Chronic diastolic heart failure (HCC), mild. 08/27/[address] Bravo. Chronic pain of both knees 11/16/2019 CKD (chronic kidney disease) stage 3, GFR 30-59 ml/min ([facility]) 01/01/2019 COPD with chronic bronchitis ([facility]) 02/15/2017 Dr. Brito Current use of proton pump inhibitor 11/25/2016 Mg checked 11/2017 DDD (degenerative disc disease), cervical 07/29/2015 DDD (degenerative disc disease), lumbar 05/08/2013 Diabetes mellitus type 2 in obese ([facility]) 06/2015 a1c 6.5% Diabetic [facility] exam [facility] [facility]) 03/15/2017 Last done: 10/24/2019 No Retinopathy Essential hypertension 08/17/2012 Ex-smoker 07/21/2017 Started around age 21 up to 2.3-3 PPD, Quit around age 57 Frequency of micturition 12/27/2016 Frequent falls 05/15/2019 GERD without esophagitis 11/25/[address] Slade Hearing loss in left ear Hip pain 12/23/2014 History of melanoma Interstitial cystitis Lumbar radiculopathy 04/29/2014 Lumbar spondylosis Lymphadenopathy of left cervical region 12/18/2013 MCI (mild cognitive impairment) 01/01/2019 Mechanical back pain 12/08/[address] Quezada for pain management. Medicare annual wellness visit, subsequent 12/05/2017 Medicare part B: 07/08/2005 last done:01/04/2020 Mixed hyperlipidemia 08/17/2012 Neuropathic pain 12/08/2012 Obesity, Class III, BMI >= 40 06/26/2018 TACO (obstructive sleep apnea) DME [employer] fx [phone] Pain due to total left knee replacement (HCC) 06/08/2018 Personal history of colonic polyps 01/23/2016 Primary insomnia 03/16/2017 [facility] 06/26/2018 recommended Klonopin every other day for a week and then just as needed. Primary osteoarthritis of right knee 07/13/2016 Pulmonary hypertension (HCC) 05/19/2022 Seeing pulm and cardio Pulmonary nodules 03/03/2013 Incidental non-calcified nodules 10/09/2012. Repeat CT due 06/2013 Recurrent major depressive disorder, in full remission ([facility]) 08/17/2012 Rheumatoid arthritis(714.0) Spondylosis of lumbar region without myelopathy or radiculopathy 05/28/2015 Status post total left knee replacement 06/08/2018 Stress incontinence 11/21/[address] Armas. Thyroid nodule 11/15/2018 Stable on 2017 Type 2 diabetes mellitus with stage 3 chronic kidney disease, without long-term current use of insulin ([facility]) 06/06/2017 Urge incontinence 11/21/2012 Previous Surgical History PAST SURGICAL HISTORY Procedure Laterality Date ARTHRP KNE CONDYLE&PLATU MEDIAL&LAT COMPARTMENTS Left 06/08/2012 CHOLECYSTECTOMY HX 10/30/1997 COLONOSCOPY & POLYPECTOMY ~2007 2 polyps COLONOSCOPY & POLYPECTOMY ~2002 7 polyps COLONOSCOPY & POLYPECTOMY 11/30/2011 COLONOSCOPY FLX DX W/COLLJ SPEC WHEN PFRMD 11/29/12 Colonoscopy repeat 3 years COLONOSCOPY FLX DX W/COLLJ SPEC WHEN PFRMD 01/28/16 Colonoscopy with mac CYSTOSCOPY 09/21/12 EGD 10/17/2011 Dr Negrete in [place] ESOPHAGOGASTRODUODENOSCOPY TRANSORAL DIAGNOSTIC 05/16/2014 EGD ESOPHAGOGASTRODUODENOSCOPY TRANSORAL DIAGNOSTIC 09/12/14 EGD ESOPHAGOGASTRODUODENOSCOPY TRANSORAL DIAGNOSTIC 01/06/2017 EGD ESOPHAGOGASTRODUODENOSCOPY TRANSORAL DIAGNOSTIC 07/21/2020 EGD REMOVE CATARACT, INSERT LENS, INTRACAPSUL Bilateral 2009 Family History FAMILY HISTORY Problem Relation Age of Onset Hypertension Mother Heart Mother Lipids Mother HIGH CHOLESTEROL Heart Father SD Ischemic Heart Disease Father STROKE other (diabetic) Father Diabetes Sister Diabetes Sister Breast Cancer Sister Patient Allergies ALLERGIES Allergen Reactions Bactrim [Sulfametho* Itching Codeine Mental Status Change Garlic Oil Other: See Comments Lexapro [Escitalopr* Other: See Comments rapid heart rate Oxybutynin Other: See Comments suggerst by [employer] to stop since it can add to memory issues. Tramadol Other: See Comments Heart racing, SOB Zoloft [Sertraline * Other: See Comments takes celexa Current Medications Current Outpatient Medications on File Prior to Visit Medication Sig blood sugar diagnostic (BLOOD GLUCOSE TEST) test strip Test blood sugar(s) 2 times daily: fasting and two hrs after a large meal . Dx: Type 2 DM - Uncontrolled E11.65 Insulin: No Lancets lancets Test blood sugar(s) 2 times daily: fasting and two hrs after a large meal . Dx: Type 2 DM - Uncontrolled E11.65 Insulin: No donepezil (ARICEPT) 10 mg tablet Take 1 tablet by mouth daily at bedtime. metFORMIN ER (GLUCOPHAGE XR) 500 mg 24 hr tablet Take 2 tablets by mouth twice daily with meals. furosemide (LASIX) 20 mg tablet Take 1 tablet by mouth twice daily. albuterol HFA (PROAIR HFA) 90 mcg/actuation inhaler Inhale 2 Puffs as instructed every 4 hours as needed for wheezing/shortness of breath (With Spacer). citalopram (CELEXA) 20 mg tablet Take 1 tablet by mouth once daily. losartan (COZAAR) 50 mg tablet Take 1 tablet by mouth once daily. pantoprazole DR (PROTONIX) 40 mg tablet Take 1 tablet by mouth twice daily. atorvastatin (LIPITOR) 40 mg tablet Take 1 tablet by mouth once daily. isosorbide mononitrate ER (IMDUR) 30 mg 24 hr tablet Take 1 tablet by mouth once daily. Lancing Device with Lancets (ACCU-CHEK SOFT DEV LANCETS) 1 Device once daily. Lancet device to use with Accuchek lancets DX E11.22 Insulin No albuterol (PROVENTIL) 2.5 mg /3 mL (0.083 %) nebulizer solution Use 3 mL via nebulizer every 6 hours as needed for wheezing/shortness of breath. Use over 5-15minutes. Calcium Citrate-Vitamin D3 (CITRACAL+D) 315 mg- 250 unit tab Take by mouth. Nebulizer NEBULIZER FOR HOME USE. DX: J44.9 aspirin 81 mg chewable tablet Take 81 mg by mouth once daily. OMEGA-3 FATTY ACIDS (FISH OIL CONCENTRATE ORAL) Take 1 tablet by mouth once daily. HYDROcodone-acetaminophen (NORCO) 5-325 mg per tablet Take 1 tablet by mouth twice daily as needed for up to 30 days. Walker (ULTRA-LIGHT ROLLATOR) [facility] One Rolator with seat. Dx: J44.9, M54.9, M12.9 and R29.6 Current Facility-Administered Medications on File Prior to Visit Medication perflutren lipid microspheres 1.3 mL in NaCl (PF) 0.9% 10 mL injection (DEFINITY) sodium chloride 0.9 % (flush) 10 mL (BD POSIFLUSH) Social History Social History Tobacco Use Smoking status: Former Smoker Packs/day: 3.00 Years: 35.00 Pack years: 105.00 Types: Cigarettes Quit date: 09/22/1997 Years since quittin.6 Smokeless tobacco: Never Used Vaping Use Vaping Use: Never used Substance Use Topics Alcohol use: No Drug use: No Review of Symptoms REVIEW OF SYSTEMS GENERAL: No significant weight gain, malaise or fevers RESPIRATORY: patient denies any increase shortness of breath. Family feels breathing has been better. CARDIOVASCULAR: Negative for chest pain, hypertension, CHF or increased Palpitations. Leg edema is about the same and some days worse. GI: some nausea on days but no vomiting, or diarrhea PSYCH: Positive for depression: ENDOCRINE: recently fatsing sugars have been 117-230 NEURO: No history of frequent headaches, syncope, paralysis, seizures or tremors EXAM: BP 128/86 (BP Site: Left Arm, BP Position: Sitting, BP Cuff Size: Large Adult) Pulse 86 Resp 22 Wt (!) 139.7 kg (308 lb) SpO2 89% BMI 56.33 kg/m SpO2 ran 92-94% on RA. Last 6 Encounter Wt Readings: Date: Wt: 05/24/2022 139.7 kg (308 lb) 05/18/2022 140.6 kg (310 lb) 05/07/2022 142.4 kg (314 lb) 10/13/2021 133.4 kg (294 lb) 09/29/2021 142.9 kg (315 lb) 09/03/2021 140.6 kg (310 lb) General Appearance: Well appearing, alert, in no acute distress, well-hydrated, well nourished. andMorbidly obese. Neck: Supple, no adenopathy; thyroid symmetric, normal size, no bruits. Lungs: Lungs clear to auscultation. No wheezing, rhonchi, rales.. Heart: RRR without murmur, gallop, or rubs. No ectopy. Abdomen: Normal abdominal exam, Abdomen soft, non-tender. Bowel sounds normal. No masses, organomegaly. Extremities: No deformities, skin discoloration. She has 1-2+ pitting edema in both lower legs. Left slightly worse then right. Peripheral Pulses: Normal. Neurologic: Gait: Walking with walker. Sensation to light touch intact.. Health Maintenance List DTAP,TDAP,TD(1 - Tdap) Never done SHINGRIX VACCINE(2 of 3) due on 05/22/2014 ADVANCE DIRECTIVE DISCUSSION Never done DILATED RETINAL EXAM due on 12/09/2021 DIABETIC FOOT EXAM due on 01/05/2022 COVID-19 VACCINE(4 - Booster for Moderna series) due on 02/22/2022 INFLUENZA(1) due on 07/08/2022 HBA1C due on 08/07/2022 URINE ALBUMIN:CREATININE RATIO due on 05/07/2023 LDL CHOLESTEROL due on 05/07/2023 BONE DENSITY Completed SPIROMETRY Completed PNEUMOCOCCAL: 65+ Completed Data reviewed Component Latest Ref Rng & Units 05/07/2022 Protein, Total 6.3 - 8.0 g/dL 6.7 Albumin 3.9 - 4.9 g/dL 3.7 (L) Calcium 8.5 - 10.2 mg/dL 9.4 Bilirubin, Total 0.2 - 1.3 mg/dL 0.4 Alkaline Phosphatase 34 - 123 U/L 105 AST 13 - 35 U/L 11 (L) ALT 7 - 38 U/L 9 Glucose 74 - 99 mg/dL 195 (H) BUN 7 - 21 mg/dL 12 Creatinine 0.58 - 0.96 mg/dL 0.86 Sodium 136 - 144 mmol/L 138 Potassium 3.7 - 5.1 mmol/L 4.2 Chloride 97 - 105 mmol/L 101 CO2 22 - 30 mmol/L 29 Anion Gap 9 - 18 mmol/L 8 (L) eGFR >=60 mL/min/1.73m 68 Total Cholesterol, Nonfasting <200 mg/dL 96 Triglycerides, Nonfasting <150 mg/dL 93 HDL Cholesterol, Nonfasting >39 mg/dL 49 LDL Cholesterol, Nonfasting <100 mg/dL 28 Non HDL Cholesterol, Nonfasting <130 mg/dL 47 VLDL Cholesterol, Nonfasting <30 mg/dL 19 Total Chol/HDL Ratio, Nonfasting <5.10 mg/dL 1.96 LDL/HDL Ratio, Nonfasting <2.54 mg/dL 0.57 Creatinine, Ur Random (UCRR) 20.0 - 300.0 mg/dL 233.5 Albumin, Urine Random mg/L 89.2 Albumin/Creat Ratio <30 mg/g 38 (H) Hemoglobin A1C 4.3 - 5.6 % 9.8 (H) Estimated Average Glucose mg/dL 235 NT Pro BNP <450 pg/mL 155 A/P ASSESSMENT/PLAN: 1. Type 2 diabetes mellitus with stage 3 chronic kidney disease, without long- term current use of insulin, unspecified whether stage 3a or 3b CKD ([facility]) - ICD9: 250.40, 585.3, ICD10: E11.22, N18.30 (primary diagnosis) uncontrolled - Continue current medications - BP goal of <130/80 - LDL goal of <100 - Recently restarted on metformin and increased to two tabs twice a day. 2. Diabetes mellitus type 2 in obese ([facility]) - ICD9: 250.00, 278.00, ICD10: E11.69, E66.9 - As per #1 3. Diabetic eye exam ([facility]) - ICD9: V72.0, 250.00, ICD10: Z01.00, E11.9 - Needs up dated. 4. Essential hypertension - ICD9: 401.9, ICD10: I10 - good control - Continue current medication(s) - Recommended regular aerobic exercise. - Recommend home blood pressure monitoring, to bring results in on next visit - Goal of BP <130/80 5. Mixed hyperlipidemia - ICD9: 272.2, ICD10: E78.2 - good control - Encouraged following a low fat, low cholesterol diet. - Discussed the benefits of regular aerobic exercise and weight loss. - Encouraged following a low carbohydrate, healthy oil intake diet. - Continue current therapy. 6. Anxiety and depression - ICD9: 300.00, 311, ICD10: F41.9, F32.A - Will switch the celxa to sertraline 50 mg a day. 7. Recurrent major depressive disorder, in full remission (HCC) - ICD9: 296.36, ICD10: F33.42 - as per #6 8. Chronic diastolic heart failure (HCC), mild. - ICD9: 428.32, ICD10: I50.32 - Will add on aldactone 25 mg a day. - Needs to see cardio. 9. Pulmonary hypertension (HCC) - ICD9: 416.8, ICD10: I27.20 - Cont f/u with cardio and pulm. She needs to reschedule these appts. 10. Bilateral leg edema - ICD9: 782.3, ICD10: R60.0 - Will add on the aldactone 11. GERD without esophagitis - ICD9: 530.81, ICD10: K21.9 - Continue treatment with Protonix 40 mg BID 12. COPD with chronic bronchitis ([facility]) - ICD9: 491.20, ICD10: J44.9 - Stable. Needs to f/u with pulm 13. Stage 3 chronic kidney disease, unspecified whether stage 3a or 3b CKD ([facility]) - ICD9: 585.3, ICD10: N18.30 - Appears stable. Will need to check renal panel in a few weeks wit being on the aldactone 14. Obesity, Class III, BMI 40-49.9 (morbid obesity) ([facility]) - ICD9: 278.01, ICD10: E66.01 Stable - Behavioral intervention 15. TACO (obstructive sleep apnea) - ICD9: 327.23, ICD10: G47.33 - not compliant with wearing her CPAP 16. Primary insomnia - ICD9: 307.42, ICD10: F51.01 - Stable with Tx. 17. Bilateral primary osteoarthritis of knee - ICD9: 715.16, ICD10: M17.0 - Will see if the PHYSICAL THERAPY helps and gave ok to use OTC Voltaren gel. Signed Prescriptions Disp Refills sertraline (ZOLOFT) 50 mg tablet 14 tablet 0 Sig: Take 1 tablet by mouth once daily. sertraline (ZOLOFT) 50 mg tablet 90 tablet 1 Si/2 a tablet by mouth once a day for 10 days then go to one tablet daily spironolactone (ALDACTONE) 25 mg tablet 90 tablet 1 Sig: Take 1 tablet by mouth once daily. diclofenac (VOLTAREN ARTHRITIS PAIN) 1 % topical gel Sig: Apply 4 g to affected area four times daily. F/u 4 weeks HTN and edema check. Will need BMP at this time Leno Briggs MD documented in this encounterMer[facility]07-13-2022 Miscellaneous Notes* Telephone Encounter - Leno Briggs MD - 05/19/2022 1:43 PM EDT Noted. * Telephone Encounter - Antionette Coleman MA - 05/19/2022 1:01 PM EDT Spoke with Gail and she was going to give Robbin Dr. Briggs's recommendations. Antionette Coleman MA * Telephone Encounter - Antionette Coleman MA - 05/19/2022 10:58 AM EDT Faxed. spoke with daughter Gail. She indicated that robbin's left leg has been swollen and red and warm tothe touch for several days. They have been keeping it elevated which helps but it comes right back.She doesn't if she has an infection again. She is wanting to know if a skilled nurse could come check out the check leg rather than having the patient come into the office because it is difficult forher to come into the office. I did put patient in an open appointment available today at 5;40. If we don't need it we can cancel. LAURA Staley MA * Telephone Encounter - Leno Briggs MD - 05/19/2022 8:11 AM EDT Order printed and last office note. Please fax it along with demographics,copy of insurance card and med list to [facility] fax#[phone]. Also let daughter know this was done. * Telephone Encounter - ZUELMA Salazar - 05/18/2022 7:24 AM EDT If staff could let patient sister Gail know what comes of response to home health services FAITH would appreciate. Gail ph.[phone]. * Telephone Encounter - ZULEMA Salazar - 05/17/2022 4:07 PM EDT This Sw has been told by home health service provider that home health services would need mentioned in office note. Provider will need to decide how he would like to address OV note with documentation of HH services. HH order, demographics,copy of insurance card,med list would need to be then faxed to home health agency. [facility] fax#[phone]. [facility] fax#[phone], [facility] fax [phone] are other home health care options if [facility] does not work. Sw will be out of the office for the rest of this week, so wanted provider office to be chan of this information. * Telephone Encounter - ZULEMA Salazar - 05/14/2022 10:35 AM EDT Faith spoke with patient sister Gail in regards to patient healthcare needs. Faith asked about transportation,ADL's ie bathing, grooming, mobility.Gail notes that family assists patient with transportationneeds and they also help patient with bathing,grooming, and mobility. Gail reports that she is wondering about more medical assistance.Faith asked Gail to clarify and she notes that she and patient daughter have been helping patient with her medications. Gail notes that she found out patient had not been taking medications correctly. Gail is wondering if home health could be an option for a skilled nurse to assess patient medication compliance. Gail notes that patient is also diabetic and has not been checking her blood sugar.Gail also asked about the option of PT to help assess patient limited mobility. Faith noted that there are home health agencies in the community that provide fpc and PT ie. [facility]. Faith noted for Medicare a patient would need to be considered home bound. Home Health agencies also look to provider notes to see about home health being discussed at . Faith also noted [facility] program. [facility] has nursing,social work, therapy and [employer] students that go to patients homes that have chronic illness to help support them. Sw noted that she would send note to Dr. Briggs and IRAIDA Styles to review and advise on what services they feel would best support patient needs at this time. Sw asked Gail how receptive patient is regarding home health services. Gail notes that she spoke with patient last night and she was open to idea. Gail reports that patient also has upcoming appt with cardiology and pulmonology next week. * Telephone Encounter - ZULEMA Salazar - 05/13/2022 4:00 PM EDT Sw left message for patient sister Faith Reynolds calling in regards to social service needs. Per MARY GRACE Styles note 05/13/22 patient gave verbal permission to speak with Gail ph.[phone]. Faith will try call again tomorrow 05/14 @10am to discuss transportation resources. documented in this encounterMer[facility]07-12-2022 History of Present illness Narrative* TRI Silva - 05/18/2022 2:05 PM EDT PULM FUNCTION SMARTBLOCK: Provider: Stephani Crooks PA-C Assisting Tech: TRI Silva Spirometry w/BD: 1 documented in this encounterMercy [facility]07-07-2022 Miscellaneous Notes* Telephone Encounter - Stephani Crooks PA-C - 05/13/2022 2:39 PM EDT Consult placed. * Telephone Encounter - Grecia Riley LPN - 05/13/2022 2:31 PM EDT Spoke with pt. She is agreeable to consult with SW. Pt would like SW to contact her sister Gail. Spoke with Gail and her contact # is [phone]. Gail states she will relay information to pt and help pt to remember things as pt has a hard time with this. Grecia Riley LPN * Telephone Encounter - Stephani Crooks PA-C - 05/13/2022 1:58 PM EDT Please contact patient to ask if okay for SW consult. Stephani Crooks PA-C * Telephone Encounter - Marie Kumar RN - 05/13/2022 1:35 PM EDT Patient's sister, Alicia calling to say she was at recent OV with patient. She states Stephani suggested patient speak to [employer] about transportation issues. Patient's sister says she would likeher sister to speak to a nephrology social worker. Sister is not listed as an emergency contact or POA. Marie Kumar RN documented in this encounterMercy [facility]07-05-2022 Miscellaneous Notes* Telephone Encounter - Stephani Crooks PA-C - 05/11/2022 9:56 AM EDT The following approved medication requests have been transmitted electronically. Signed Prescriptions Disp Refills metFORMIN ER (GLUCOPHAGE XR) 500 mg 24 hr tablet 360 tablet 1 Sig: Take 2 tablets by mouth twice daily with meals. TYRONE: No Authorizing Provider: STEPHANI CROOKS PA-C * Telephone Encounter - Grecia Riley LPN - 05/11/2022 9:41 AM EDT Patient notified of results and provider's instructions. Patient verbalizes understanding. Pt is agreeable to increase of metformin. Uses [facility]. Pt denies any s/s uti. Will come to lab to give urine specimen on 05/13 when she comes for other appointment. Grecia Riley LPN * Telephone Encounter - Stephani Crooks PA-C - 05/11/2022 8:48 AM EDT a1c is 9.8%. Is she willing to increase metformin to 1000mg twice a day? Urine shows blood and leuks. Similar to past. Any s/s of UTI? If yes, will treat if no, need to have her do a urine culture to make sure no infection. Cholesterol is okay. Metabolic panel is okay. Stephani Crooks PA-C documented in this encounterMercy [facility]07-05-2022 Miscellaneous Notes* Telephone Encounter - Brandy Hill Ma - 05/11/2022 9:30 AM EDT Patient has appointment in one month to f/u on restarting lasix. For daughter question about chronic pain do you want another appointment to discuss this or defer patient to see pain management? Brandy Hill Ma * Telephone Encounter - Grecia Riley LPN - 05/11/2022 7:25 AM EDT Please see message from pt's daughter. Grecia Riley LPN documented in this encounterMer[facility]07-05-2022 Miscellaneous Notes* Telephone Encounter - Grecia Riley LPN - 05/11/2022 8:42 AM EDT Pt requesting refills TAVO 05/07/22 NOV 07/07/22 Grecia Riley LPN documented in this encounterMercy [facility]07-01-2022 Instructions* Patient Instructions* Stephani Crooks PA-C - 05/07/2022 1:46 PM EDT Please reschedule with pulm and cardiology. documented in this encounterMercy [facility]07-01-2022 History of Present illness Narrative* Stephani Crooks PA-C - 05/07/2022 1:45 PM EDT Chief Complaint Patient presents with: 6 Month Exam HPI Robbin Singh is a 81 year old female who presents here today for Chronic Medical Conditions.. Patient with complex medical history as below and has a hx of noncompliance to follow ups. Has missed multiple appointments with PCP team and specialists. patient's sister is here with her today. State patient seems like she just doesn't care anymore. Patient states transportation is the issue but sister says it's not the main reason. This issue is that Robbin doesn't want to go to appointments. Robbin states she is taking her medications although cannot tell us what she is taking. Has more shortness of breath and leg swelling. Past medical history, appointments, medications, allergies reviewed. Previous Medical History PAST MEDICAL HISTORY Diagnosis Date Anxiety and depression 01/01/2019 Arthritis of shoulder region, degenerative right Corticosteroid 09/20/14, left corticosteroid 10/07/14 Arthritis, multiple joint involvement 01/16/2018 Advised tylenol Arthritis 11/15/2018 and to avid NSAID's with her Hx of stomach issues and being diabetic for risk of renal impairment. Bilateral leg edema 07/31/2019 Bilateral primary osteoarthritis of knee 03/26/2019 Cervical spondylosis with myelopathy 07/29/2015 Chronic diastolic heart failure (HCC), mild. 08/27/[address] Bravo. Chronic pain of both knees 11/16/2019 CKD (chronic kidney disease) stage 3, GFR 30-59 ml/min ([facility]) 01/01/2019 COPD with chronic bronchitis ([facility]) 02/15/2017 Dr. Brito Current use of proton pump inhibitor 11/25/2016 Mg checked 11/2017 DDD (degenerative disc disease), cervical 07/29/2015 DDD (degenerative disc disease), lumbar 05/08/2013 Diabetes mellitus type 2 in obese ([facility]) 06/2015 a1c 6.5% Diabetic eye exam ([facility]) 03/15/2017 Last done: 10/24/2019 No Retinopathy Essential hypertension 08/17/2012 Ex-smoker 07/21/2017 Started around age 21 up to 2.3-3 PPD, Quit around age 57 Frequency of micturition 12/27/2016 Frequent falls 05/15/2019 GERD without esophagitis 11/25/[address] Slade Hearing loss in left ear Hip pain 12/23/2014 History of melanoma Interstitial cystitis Lumbar radiculopathy 04/29/2014 Lumbar spondylosis Lymphadenopathy of left cervical region 12/18/2013 MCI (mild cognitive impairment) 01/01/2019 Mechanical back pain 12/08/[address] Quezada for pain management. Medicare annual wellness visit, subsequent 12/05/2017 Medicare part B: 07/08/2005 last done:01/04/2020 Mixed hyperlipidemia 08/17/2012 Neuropathic pain 12/08/2012 Obesity, Class III, BMI >= 40 06/26/2018 TACO (obstructive sleep apnea) DME [employer] fx [phone] Pain due to total left knee replacement ([facility]) 06/08/2018 Personal history of colonic polyps 01/23/2016 Primary insomnia 03/16/2017 [facility] center 06/26/2018 recommended Klonopin every other day for a week and then just as needed. Primary osteoarthritis of right knee 07/13/2016 Pulmonary nodules 03/03/2013 Incidental non-calcified nodules 10/09/2012. Repeat CT due 06/2013 Recurrent major depressive disorder, in full remission ([facility]) 08/17/2012 Rheumatoid arthritis(714.0) Spondylosis of lumbar region without myelopathy or radiculopathy 05/28/2015 Status post total left knee replacement 06/08/2018 Stress incontinence 11/21/[address] Armas. Thyroid nodule 11/15/2018 Stable on US 2017 Type 2 diabetes mellitus with stage 3 chronic kidney disease, without long-term current use of insulin (HCC) 06/06/2017 Urge incontinence 11/21/2012 Previous Surgical History PAST SURGICAL HISTORY Procedure Laterality Date CHOLECYSTECTOMY HX 10/30/1997 COLONOSCOP W/ OR W/O [facility] SPEC 11/29/12 Colonoscopy repeat 3 years COLONOSCOP W/ OR W/O [facility] SPEC 01/28/16 Colonoscopy with mac COLONOSCOPY & POLYPECTOMY ~2007 2 polyps COLONOSCOPY & POLYPECTOMY ~2001 7 polyps COLONOSCOPY & POLYPECTOMY 11/30/2011 CYSTOSCOPY 09/21/12 EGD 10/17/2011 Dr Negrete in [place] EGD W/O OR W/BRUSH/WASH 05/16/2014 EGD EGD W/O OR W/BRUSH/WASH 09/12/14 EGD EGD W/O OR W/BRUSH/WASH 01/06/2017 EGD EGD W/O OR W/BRUSH/WASH 07/21/2020 EGD REMOVE CATARACT, INSERT LENS, INTRACAPSUL Bilateral 2008 TOTAL KNEE REPLACEMENT Left 06/08/2012 Family History FAMILY HISTORY Problem Relation Age of Onset Hypertension Mother Heart Mother Lipids Mother HIGH CHOLESTEROL Heart Father SD Ischemic Heart Disease Father STROKE other (diabetic) Father Diabetes Sister Diabetes Sister Breast Cancer Sister Patient Allergies ALLERGIES Allergen Reactions Bactrim [Sulfametho* Itching Codeine Mental Status Change Garlic Oil Other: See Comments Lexapro [Escitalopr* Other: See Comments rapid heart rate Oxybutynin Other: See Comments suggerst by [facility] [facility] to stop since it can add to memory issues. Tramadol Other: See Comments Heart racing, SOB Zoloft [Sertraline * Other: See Comments takes celexa Current Medications Current Outpatient Medications on File Prior to Visit Medication Sig HYDROcodone-acetaminophen (NORCO) 5-325 mg per tablet Take 1 tablet by mouth twice daily as needed for up to 30 days. citalopram (CELEXA) 20 mg tablet Take 1 tablet by mouth once daily. losartan (COZAAR) 50 mg tablet Take 1 tablet by mouth once daily. pantoprazole DR (PROTONIX) 40 mg tablet Take 1 tablet by mouth twice daily. atorvastatin (LIPITOR) 40 mg tablet Take 1 tablet by mouth once daily. isosorbide mononitrate ER (IMDUR) 30 mg 24 hr tablet Take 1 tablet by mouth once daily. Lancing Device with Lancets (ACCU-CHEK SOFT DEV LANCETS) 1 Device once daily. Lancet device to use with Accuchek lancets DX E11.22 Insulin No donepezil (ARICEPT) 10 mg tablet Take 1 tablet by mouth daily at bedtime. albuterol (PROVENTIL) 2.5 mg /3 mL (0.083 %) nebulizer solution Use 3 mL via nebulizer every 6 hours as needed for wheezing/shortness of breath. Use over 5-15minutes. predniSONE (DELTASONE) 10 mg tablet 4 tabs daily for 2 days, 3 tabs daily for 2 days, 2 tabs daily for 2 days, 1 tab daily for 2 days. metFORMIN ER (GLUCOPHAGE XR) 500 mg 24 hr tablet Take 1 tablet by mouth daily with breakfast. blood sugar diagnostic (ACCU-CHEK BETTY PLUS TEST STRP) test strip Test blood sugar(s) 1 times daily. Dx: Type 2 DM - Controlled E11.9 Insulin: No Blood-Glucose Meter (ACCU-CHEK BETTY PLUS METER) Use as directed. Test blood sugar once a day. Dx: E11.9 Lancets (ACCU-CHEK SOFTCLIX LANCETS) lancets Test blood sugar(s) 1 times daily. Dx: Type 2 DM - Controlled E11.9 Insulin: No metOLazone (ZAROXOLYN) 5 mg tablet Take 1 tablet by mouth once daily. furosemide (LASIX) 20 mg tablet Take 1 tablet by mouth twice daily. spironolactone (ALDACTONE) 25 mg tablet Take 1 tablet by mouth once daily. promethazine (PHENERGAN) 25 mg tablet Take 1 tablet by mouth every 6 hours as needed for nausea/vomiting. guaiFENesin (MUCINEX) 600 mg 12 hr tablet Take 1 tablet by mouth twice daily. (Patient taking differently: Take 600 mg by mouth once daily. ) Walker (ULTRA-LIGHT ROLLATOR) [facility] One Rolator with seat. Dx: J44.9, M54.9, M12.9 and R29.6 Calcium Citrate-Vitamin D3 (CITRACAL+D) 315 mg- 250 unit tab Take by mouth. albuterol HFA (PROAIR HFA) 90 mcg/actuation inhaler Inhale 2 Puffs as instructed every 4 hours as needed for Wheezing/Shortness of Breath (With Spacer). Nebulizer NEBULIZER FOR HOME USE. DX: J44.9 GLUCOSAMINE HCL/CHONDR BLANCO A NA (OSTEO BI-FLEX ORAL) Take 1 tablet by mouth once daily. aspirin 81 mg chewable tablet Take 81 mg by mouth once daily. OMEGA-3 FATTY ACIDS (FISH OIL CONCENTRATE ORAL) Take 1 tablet by mouth once daily. No current facility-administered medications on file prior to visit. Social History Social History Tobacco Use Smoking status: Former Smoker Packs/day: 3.00 Years: 35.00 Pack years: 105.00 Types: Cigarettes Quit date: 09/22/1997 Years since quittin.6 Smokeless tobacco: Never Used Vaping Use Vaping Use: Never used Substance Use Topics Alcohol use: No Drug use: No Review of Symptoms REVIEW OF SYSTEMS see hpi Denies chest pain. EXAM: BP 134/80 Pulse 105 Resp 22 Wt (!) 142.4 kg (314 lb) SpO2 91% BMI 55.64 kg/m Last 3 Encounter Wt Readings: Date: Wt: 05/07/2022 142.4 kg (314 lb) 10/13/2021 133.4 kg (294 lb) 09/29/2021 142.9 kg (315 lb) General Appearance: Well appearing, alert, in no acute distress, well-hydrated, well nourished.. Neck: Supple, no adenopathy; thyroid symmetric, normal size, no bruits. Lungs: scattered wheezes throughout Heart: Heart sounds distant. RRR Extremities: b/l edema Peripheral Pulses: Normal radial pulses. Health Maintenance List DTAP,TDAP,TD(1 - Tdap) Never done SHINGRIX VACCINE(2 of 3) due on 05/22/2014 ADVANCE DIRECTIVE DISCUSSION Never done DILATED RETINAL EXAM due on 12/09/2021 URINE ALBUMIN:CREATININE RATIO due on 01/05/2022 DIABETIC FOOT EXAM due on 01/05/2022 COVID-19 VACCINE(4 - Booster for Moderna series) due on 02/22/2022 HBA1C due on 03/04/2022 INFLUENZA(1) due on 07/08/2022 LDL CHOLESTEROL due on 09/03/2022 BONE DENSITY Completed SPIROMETRY Completed PNEUMOCOCCAL: 65+ Completed Data reviewed n/a ASSESSMENT/PLAN: 1. Type 2 diabetes mellitus with stage 3 chronic kidney disease, without long- term current use of insulin, unspecified whether stage 3a or 3b CKD (HCC) - ICD9: 250.40, 585.3, ICD10: E11.22, N18.30 (primary diagnosis) Await labs Continue current med - URINALYSIS, WITH MICROSCOPIC - ALBUMIN/CREAT RATIO RND UR - HGB A1C - COMP METABOLIC PANEL 2. Chronic diastolic heart failure (HCC), mild. - ICD9: 428.32, ICD10: I50.32 Patient needs f/u with cardio Check BNP today and get echo scheduled. Discussed possible red flags and when to seek medical attention. - ECHO - NT PRO BNP 3. Mixed hyperlipidemia - ICD9: 272.2, ICD10: E78.2 check - LIPID PANEL, NONFASTING 4. Essential hypertension - ICD9: 401.9, ICD10: I10 - good control - Continue current medication(s) - Recommended regular aerobic exercise. - Recommend home blood pressure monitoring, to bring results in on next visit - Goal of BP <130/80 5. COPD with chronic bronchitis (HCC) - ICD9: 491.20, ICD10: J44.9 Patient to get back with pulm Check PFT. Use inhaler - SPIROMETRY - BASELINE AND POST DILATOR 6. TACO (obstructive sleep apnea) - ICD9: 327.23, ICD10: G47.33 Patient noncompliant with CPAP 7. Ex-smoker - ICD9: V15.82, ICD10: Z87.891 8. Chronic pain syndrome - ICD9: 338.4, ICD10: G89.4 9. Stage 3 chronic kidney disease, unspecified whether stage 3a or 3b CKD (HCC) - ICD9: 585.3, ICD10: N18.30 10. 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) - ICD9: 250.00, 278.00, ICD10: E11.69, E66.9 11. Current use of proton pump inhibitor - ICD9: V58.69, ICD10: Z79.899 check - MAGNESIUM BLD 12. SOB (shortness of breath) - ICD9: 786.05, ICD10: R06.02 Check: - ECHO - PERFLUTREN LIPID MICROSPHERES 1.1 MG/ML INJECTION IN NS 10 ML - SODIUM CHLORIDE 0.9 % (FLUSH) INJECTION SYRINGE - SPIROMETRY - BASELINE AND POST DILATOR 13. CHURCH (dyspnea on exertion) - ICD9: 786.09, ICD10: R06.09 Check: - ECHO - PERFLUTREN LIPID MICROSPHERES 1.1 MG/ML INJECTION IN NS 10 ML - SODIUM CHLORIDE 0.9 % (FLUSH) INJECTION SYRINGE - SPIROMETRY - BASELINE AND POST DILATOR F/u in 1 month for recheck. Stephani Crooks PA-C [facility]* Diagnosis Type 2 diabetes mellitus with stage 3 chronic kidney disease, without long-term current use of insulin, unspecified whether stage 3a or 3b CKD (HCC)- Primary Chronic diastolic heart failure (HCC), mild. 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 Letter sent to pt. Called and spoke with pt and reminded her of No Show Policy and advised that this is also explained in the letter. Pt verbalizes understanding. Pt states she had thought her appointment today was at 2 pm. Pt did reschedule for 05/05 and reminded pt of this. Pt states she thought appointment was on Tue. She did write down appointment time anddate and states she will be there on Tue. Grecia Riley LPN documented in this encounterMer[facility]06[facility]16-2022 Miscellaneous Notes* Telephone Encounter - Antionette Coleman MA - 04/22/2022 8:13 AM EDT Patient notified and scheduled. Patient does have enough medication until her appointment. Antionette Coleman MA * Telephone Encounter - Leno Briggs MD - 04/21/2022 9:37 PM EDT Advise patient she has not been seen since 10/13/2021 and No Showed to her recent appt on 04/07/2022. She needs seen to get med refills. * Telephone Encounter - Cristina Garcia Ma - 04/21/2022 3:04 PM EDT Last office visit: 10/13/21 F/u scheduled: none, 03/04/22 appt was cancelled and no showed appt on 04/07/22 Cristina Garcia Ma * Telephone Encounter - Sun Chavez Pss - 04/21/2022 2:50 PM EDT Pharmacy verified in [facility] Patient has been identified by name and date of : Yes Patient aware RX will be sent to pharmacy. No need to notify patient. Patient phones for refill(s): Pending Prescriptions Disp Refills METFORMIN ER 500 MG TABLET,EXTENDED RELEASE 24 HR 90 tablet 1 Sig: Take 1 tablet by mouth daily with breakfast. TYRONE: No FUROSEMIDE 20 MG TABLET 180 tablet 1 Sig: Take 1 tablet by mouth twice daily. TYRONE: No Date of last office visit : 10/13/2021 Date of next office visit : Visit date not found Last 2 Encounter Wt Readings: Date: Wt: 10/13/2021 133.4 kg (294 lb) 09/29/2021 142.9 kg (315 lb) Please advise. Sun Chavez Pss documented in this encounterMer[facility]05-25-2022 Miscellaneous Notes* Telephone Encounter - Leno Briggs MD - 03/31/2022 12:07 PM EDT The following approved medication requests have been transmitted electronically. Signed Prescriptions Disp Refills HYDROcodone-acetaminophen (NORCO) 5-325 mg per tablet 60 tablet 0 Sig: Take 1 tablet by mouth twice daily as needed for up to 30 days. LUC Class: C-II TYRONE: No Authorizing Provider: LENO BRIGGS citalopram (CELEXA) 20 mg tablet 90 tablet 1 Sig: Take 1 tablet by mouth once daily. TYRONE: No Authorizing Provider: LENO BRIGGS losartan (COZAAR) 50 mg tablet 90 tablet 1 Sig: Take 1 tablet by mouth once daily. TYRONE: No Authorizing Provider: LENO BRIGGS pantoprazole DR (PROTONIX) 40 mg tablet 180 tablet 1 Sig: Take 1 tablet by mouth twice daily. TYRONE: No Authorizing Provider: LENO BRIGGS MD PDMP website checked and validated. All prescriptions have been APPROPRIATELY filled. No suspiciousactivity was identified. 03/31/2022 by Leno Briggs MD * Telephone Encounter - Grecia Riley LPN - 03/31/2022 9:49 AM EDT TAVO: 10/13/21 NOV: 04/07/22 Grecia Riley LPN * Telephone Encounter - Ana [facility] [place] - 03/31/2022 9:45 AM EDT Patient has been identified by name and date of : Yes Pending Prescriptions Disp Refills HYDROCODONE 5 MG-ACETAMINOPHEN 325 MG TABLET 60 tablet 0 Sig: Take 1 tablet by mouth twice daily as needed for up to 30 days. LUC Class: C-II TYRONE: No RX INSTRUCTIONS: Patient aware RX will be sent to pharmacy. No need to notify patient. [facility] documented in this encounterMer[facility]05-25-2022 Miscellaneous Notes* Telephone Encounter - Grecia Riley LPN - 03/31/2022 9:53 AM EDT Sent this request along with other refill request to pcp. Grecia Riley LPN * Telephone Encounter - Romelia Dorantes - 03/31/2022 9:35 AM EDT Patient has been identified by name and date of : Yes Pending Prescriptions Disp Refills CITALOPRAM 20 MG TABLET 90 tablet 1 Sig: Take 1 tablet by mouth once daily. TYRONE: No LOSARTAN 50 MG TABLET 90 tablet 1 Sig: Take 1 tablet by mouth once daily. TYRONE: No PANTOPRAZOLE 40 MG TABLET,DELAYED RELEASE 180 tablet 1 Sig: Take 1 tablet by mouth twice daily. TYRONE: No RX INSTRUCTIONS: Patient aware RX will be sent to pharmacy. No need to notify patient. Romelia Dorantes documented in this encounterMer[facility]05-16-2022 Miscellaneous Notes* Telephone Encounter - Shelby Rogel LPN - 03/22/2022 4:56 PM EDT Pt scheduled for apt on 04-07-22. Shelby Rogel LPN * Telephone Encounter - Stephani Crooks PA-C - 03/22/2022 3:15 PM EDT Patient needs to reschedule her visit with dr. Briggs. Stephani Crooks PA-C * Telephone Encounter - Ana Anderson [facility] - 03/22/2022 2:19 PM EDT Patient has been identified by name and date of : Yes Pending Prescriptions Disp Refills ATORVASTATIN 40 MG TABLET 90 tablet 1 Sig: Take 1 tablet by mouth once daily. TYRONE: No ISOSORBIDE MONONITRATE ER 30 MG TABLET,EXTENDED RELEASE 24 HR 90 tablet 0 Sig: Take 1 tablet by mouth once daily. TYRONE: No TAVO-10/13/21 Labs-09/03/21 NOV-none RX INSTRUCTIONS: Patient aware RX will be sent to pharmacy. No need to notify patient. [facility] documented in this encounterMer[facility]09-13-2021 NoteHNO ID: [id number] Author: MODESTO Salmeron Service: Radiology Author Type: Clinical Scrub Wheel Operator Type: Progress Notes Filed: 07/20/2021 2:36 PM Note Text: Radiology Service Progress Note PATIENT NAME: Robbin Singh DATE OF SERVICE: July 20, 2021 TIME: 2:35 PM PATIENT IDENTITY VERIFICATION COMPLETED USING TWO (2) IDENTIFIERS: Name and Date of confirmed by patient verbally. FALL SCREENING: Has the patient had 2 falls in the last year or 1 fall with injury or currently using an Ambulatory Assistive Device (Walker, Cane, Wheelchair, Crutches, etc.)? Yes, Patient High Risk for Falls What interventions were put in place to prevent falls during this visit? Instructed Patient to Call for Help if Needed, Offered Assistance with Transfers/Clothing, Instructed Patient to Remain Seated (Not on Exam Table) Until Exam and Increased Observations by Caregivers PATIENT GENDER DATA: Female. status: : No status: NO. PATIENT RELEVANT IMPLANT DATA REVIEWED: Not Applicable RADIOLOGY DEPARTMENT: General X-ray: Exam(s) Completed: Lower Extremity X-Ray(s): Knee, AP / Lat / Merchant Left PERIPHERAL IV DATA: Not applicable SIGNED BY: MODESTO Salmeron July 20, 2021 2:35 PMVeterans Health [id number] History of Past illness Narrative* Problem Noted Date Diagnosed Date Resolved Date Neck mass 04/14/2020 06/21/2023 Overview: Saw [facility], 04/2020, No mass on exam felt to be inflamed salivary gland. Chest pain 01/01/2019 04/27/2019 Last Assessment & Plan: Assessment: resolved now. Per patient similar to her other episodes of angina EKG x2 is normal Cycle troponin Stress test done in 12/2018 without evidence of ischemia Patient would like to go home later this evening if no further symptoms Obesity, Class III, BMI >= 40 06/26/2018 11/29/2019 Last Assessment & Plan: Counseled on lifestyle modifications Well adult exam 12/05/2017 11/29/2019 Overview: last done: 11/29/2018 Shoulder pain 01/07/2014 11/29/2019 CHF (congestive heart failure) 08/15/2013 01/23/2016 Stress incontinence 11/21/2012 03/24/20 Overview: Did see Dr. Armas Bronchitis 11/09/2012 03/02/2013 Sinus infection 11/09/2012 03/02/2013 Diabetes mellitus 11/09/2012 11/14/2013 COPD (chronic obstructive pulmonary disease) 2 11/09/2012 documented as of this encounter (statuses as of 06/22/2023) [facility] of Past illness Narrative* Problem Noted Date Diagnosed Date Resolved Date Neck mass 04/14/2020 06/21/2023 Overview: Saw [facility] ENT, 04/2020, No mass on exam felt to be inflamed salivary gland. Chest pain 01/01/2019 04/27/2019 Last Assessment & Plan: Assessment: resolved now. Per patient similar to her other episodes of angina EKG x2 is normal Cycle troponin Stress test done in 12/2018 without evidence of ischemia Patient would like to go home later this evening if no further symptoms Obesity, Class III, BMI >= 40 06/26/2018 11/29/2019 Last Assessment & Plan: Counseled on lifestyle modifications Well adult exam 12/05/2017 11/29/2019 Overview: last done: 11/29/2018 Shoulder pain 01/07/2014 11/29/2019 CHF (congestive heart failure) 08/15/2013 01/23/2016 Stress incontinence 11/21/2012 03/24/20 20 Overview: Did see Dr. Armas Bronchitis 11/09/2012 03/02/2013 Sinus infection 11/09/2012 03/02/2013 Diabetes mellitus 11/09/2012 11/14/2013 COPD (chronic obstructive pulmonary disease) 2 11/09/2012 documented as of this encounter (statuses as of 06/22/2023) [facility] of Past illness Narrative* Problem Noted Date Diagnosed Date Resolved Date Neck mass 04/14/2020 06/21/2023 Overview: Saw [facility], 04/2020, No mass on exam felt to be inflamed salivary gland. Chest pain 01/01/2019 04/27/2019 Last Assessment & Plan: Assessment: resolved now. Per patient similar to her other episodes of angina EKG x2 is normal Cycle troponin Stress test done in 12/2018 without evidence of ischemia Patient would like to go home later this evening if no further symptoms Obesity, Class III, BMI >= 40 06/26/2018 11/29/2019 Last Assessment & Plan: Counseled on lifestyle modifications Well adult exam 12/05/2017 11/29/2019 Overview: last done: 11/29/2018 Shoulder pain 01/07/2014 11/29/2019 CHF (congestive heart failure) 08/15/2013 01/23/2016 Stress incontinence 11/21/2012 03/24/20 20 Overview: Did see Dr. Armas Bronchitis 11/09/2012 03/02/2013 Sinus infection 11/09/2012 03/02/2013 Diabetes mellitus 11/09/2012 11/14/2013 COPD (chronic obstructive pulmonary disease) 2 11/09/2012 documented as of this encounter (statuses as of 07/06/2023) [facility] of Past illness Narrative* Problem Noted Date Diagnosed Date Resolved Date Neck mass 04/14/2020 06/21/2023 Overview: Saw [facility] ENT, 04/2020, No mass on exam felt to be inflamed salivary gland. Chest pain 01/01/2019 04/27/2019 Last Assessment & Plan: Assessment: resolved now. Per patient similar to her other episodes of angina EKG x2 is normal Cycle troponin Stress test done in 12/2018 without evidence of ischemia Patient would like to go home later this evening if no further symptoms Obesity, Class III, BMI >= 40 06/26/2018 11/29/2019 Last Assessment & Plan: Counseled on lifestyle modifications Well adult exam 12/05/2017 11/29/2019 Overview: last done: 11/29/2018 Shoulder pain 01/07/2014 11/29/2019 CHF (congestive heart failure) 08/15/2013 01/23/2016 Stress incontinence 11/21/2012 03/24/20 Overview: Did see Dr. Armas Bronchitis 11/09/2012 03/02/2013 Sinus infection 11/09/2012 03/02/2013 Diabetes mellitus 11/09/2012 11/14/2013 COPD (chronic obstructive pulmonary disease) 2 11/09/2012 documented as of this encounter (statuses as of 08/24/2023) [facility] Narrative* Problem Noted Date Diagnosed Date Resolved Date Neck mass 04/14/2020 06/21/2023 Overview: Saw [facility] ENT, 04/2020, No mass on exam felt to be inflamed salivary gland. Chest pain 01/01/2019 04/27/2019 Last Assessment & Plan: Assessment: resolved now. Per patient similar to her other episodes of angina EKG x2 is normal Cycle troponin Stress test done in 12/2018 without evidence of ischemia Patient would like to go home later this evening if no further symptoms Obesity, Class III, BMI >= 40 06/26/2018 11/29/2019 Last Assessment & Plan: Counseled on lifestyle modifications Well adult exam 12/05/2017 11/29/2019 Overview: last done: 11/29/2018 Shoulder pain 01/07/2014 11/29/2019 CHF (congestive heart failure) 08/15/2013 01/23/2016 Stress incontinence 11/21/2012 03/24/20 20 Overview: Did see Dr. Armas Bronchitis 11/09/2012 03/02/2013 Sinus infection 11/09/2012 03/02/2013 Diabetes mellitus 11/09/2012 11/14/2013 COPD (chronic obstructive pulmonary disease) 2 11/09/2012 documented as of this encounter (statuses as of 09/02/2023) [facility] illness Narrative* Problem Noted Date Diagnosed Date Resolved Date Neck mass 04/14/2020 06/21/2023 Overview: Saw [facility], 04/2020, No mass on exam felt to be inflamed salivary gland. Chest pain 01/01/2019 04/27/2019 Last Assessment & Plan: Assessment: resolved now. Per patient similar to her other episodes of angina EKG x2 is normal Cycle troponin Stress test done in 12/2018 without evidence of ischemia Patient would like to go home later this evening if no further symptoms Obesity, Class III, BMI >= 40 06/26/2018 11/29/2019 Last Assessment & Plan: Counseled on lifestyle modifications Well adult exam 12/05/2017 11/29/2019 Overview: last done: 11/29/2018 Shoulder pain 01/07/2014 11/29/2019 CHF (congestive heart failure) 08/15/2013 01/23/2016 Stress incontinence 11/21/2012 03/24/20 20 Overview: Did see Dr. Armas Bronchitis 11/09/2012 03/02/2013 Sinus infection 11/09/2012 03/02/2013 Diabetes mellitus 11/09/2012 11/14/2013 COPD (chronic obstructive pulmonary disease) 2 11/09/2012 documented as of this encounter (statuses as of 09/20/2023) [facility] Narrative* Problem Noted Date Resolved Date Chest pain 01/01/2019 04/27/2019 Last Assessment & Plan: Assessment: resolved now. Per patient similar to her other episodes of angina EKG x2 is normal Cycle troponin Stress test done in 12/2018 without evidence of ischemia Patient would like to go home later this evening if no further symptoms Obesity, Class III, BMI >= 40 06/26/2018 Last Assessment & Plan: Counseled on lifestyle modifications Well adult exam 12/05/2017 11/29/2019 Overview: last done: 11/29/2018 Shoulder pain 01/07/2014 11/29/2019 CHF (congestive heart failure) 08/15/2013 0 01/23/2016 Stress incontinence 11/21/2012 03/24/2020 Overview: Did see Dr. Armas Bronchitis 11/09/2012 03/02/2013 Sinus infection 11/09/2012 03/02/2013 Diabetes mellitus 11/09/2012 11/14/2013 COPD (chronic obstructive pulmonary disease) 11/09/2012 documented as of this encounter (statuses as of 03/22/2022) [facility] illness Narrative* Problem Noted Date Resolved Date Chest pain 01/01/2019 04/27/2019 Last Assessment & Plan: Assessment: resolved now. Per patient similar to her other episodes of angina EKG x2 is normal Cycle troponin Stress test done in 12/2018 without evidence of ischemia Patient would like to go home later this evening if no further symptoms Obesity, Class III, BMI >= 40 06/26/2018 Last Assessment & Plan: Counseled on lifestyle modifications Well adult exam 12/05/2017 11/29/2019 Overview: last done: 11/29/2018 Shoulder pain 01/07/2014 11/29/2019 CHF (congestive heart failure) 08/15/2013 0 01/23/2016 Stress incontinence 11/21/2012 03/24/2020 Overview: Did see Dr. Armas Bronchitis 11/09/2012 03/02/2013 Sinus infection 11/09/2012 03/02/2013 Diabetes mellitus 11/09/2012 11/14/2013 COPD (chronic obstructive pulmonary disease) 11/09/2012 documented as of this encounter (statuses as of 03/31/2022) [facility] Narrative* Problem Noted Date Resolved Date Chest pain 01/01/2019 04/27/2019 Last Assessment & Plan: Assessment: resolved now. Per patient similar to her other episodes of angina EKG x2 is normal Cycle troponin Stress test done in 12/2018 without evidence of ischemia Patient would like to go home later this evening if no further symptoms Obesity, Class III, BMI >= 40 06/26/2018 Last Assessment & Plan: Counseled on lifestyle modifications Well adult exam 12/05/2017 11/29/2019 Overview: last done: 11/29/2018 Shoulder pain 01/07/2014 11/29/2019 CHF (congestive heart failure) 08/15/2013 0 01/23/2016 Stress incontinence 11/21/2012 03/24/2020 Overview: Did see Dr. Armas Bronchitis 11/09/2012 03/02/2013 Sinus infection 11/09/2012 03/02/2013 Diabetes mellitus 11/09/2012 11/14/2013 COPD (chronic obstructive pulmonary disease) 11/09/2012 documented as of this encounter (statuses as of 03/31/2022) [facility]02-25-2019 History of Past illness Narrative* Problem Noted Date Resolved Date Chest pain 01/01/2019 04/27/2019 Last Assessment & Plan: Assessment: resolved now. Per patient similar to her other episodes of angina EKG x2 is normal Cycle troponin Stress test done in 12/2018 without evidence of ischemia Patient would like to go home later this evening if no further symptoms Obesity, Class III, BMI >= 40 06/26/2018 Last Assessment & Plan: Counseled on lifestyle modifications Well adult exam 12/05/2017 11/29/2019 Overview: last done: 11/29/2018 Shoulder pain 01/07/2014 11/29/2019 CHF (congestive heart failure) 08/15/2013 0 01/23/2016 Stress incontinence 11/21/2012 03/24/2020 Overview: Did see Dr. Armas Bronchitis 11/09/2012 03/02/2013 Sinus infection 11/09/2012 03/02/2013 Diabetes mellitus 11/09/2012 11/14/2013 COPD (chronic obstructive pulmonary disease) 11/09/2012 documented as of this encounter (statuses as of 04/22/2022) [facility]2019 History of Past illness Narrative* Problem Noted Date Resolved Date Chest pain 01/01/2019 04/27/2019 Last Assessment & Plan: Assessment: resolved now. Per patient similar to her other episodes of angina EKG x2 is normal Cycle troponin Stress test done in 12/2018 without evidence of ischemia Patient would like to go home later this evening if no further symptoms Obesity, Class III, BMI >= 40 06/26/2018 Last Assessment & Plan: Counseled on lifestyle modifications Well adult exam 12/05/2017 11/29/2019 Overview: last done: 11/29/2018 Shoulder pain 01/07/2014 11/29/2019 CHF (congestive heart failure) 08/15/2013 0 01/23/2016 Stress incontinence 11/21/2012 03/24/2020 Overview: Did see Dr. Armas Bronchitis 11/09/2012 03/02/2013 Sinus infection 11/09/2012 03/02/2013 Diabetes mellitus 11/09/2012 11/14/2013 COPD (chronic obstructive pulmonary disease) 11/09/2012 documented as of this encounter (statuses as of 04/30/2022) [facility] History of Past illness Narrative* Problem Noted Date Resolved Date Chest pain 01/01/2019 04/27/2019 Last Assessment & Plan: Assessment: resolved now. Per patient similar to her other episodes of angina EKG x2 is normal Cycle troponin Stress test done in 12/2018 without evidence of ischemia Patient would like to go home later this evening if no further symptoms Obesity, Class III, BMI >= 40 06/26/2018 Last Assessment & Plan: Counseled on lifestyle modifications Well adult exam 12/05/2017 11/29/2019 Overview: last done: 11/29/2018 Shoulder pain 01/07/2014 11/29/2019 CHF (congestive heart failure) 08/15/2013 0 01/23/2016 Stress incontinence 11/21/2012 03/24/2020 Overview: Did see Dr. Armas Bronchitis 11/09/2012 03/02/2013 Sinus infection 11/09/2012 03/02/2013 Diabetes mellitus 11/09/2012 11/14/2013 COPD (chronic obstructive pulmonary disease) 11/09/2012 documented as of this encounter (statuses as of 05/07/2022) [facility] History of Past illness Narrative* Problem Noted Date Resolved Date Chest pain 01/01/2019 04/27/2019 Last Assessment & Plan: Assessment: resolved now. Per patient similar to her other episodes of angina EKG x2 is normal Cycle troponin Stress test done in 12/2018 without evidence of ischemia Patient would like to go home later this evening if no further symptoms Obesity, Class III, BMI >= 40 06/26/2018 Last Assessment & Plan: Counseled on lifestyle modifications Well adult exam 12/05/2017 11/29/2019 Overview: last done: 11/29/2018 Shoulder pain 01/07/2014 11/29/2019 CHF (congestive heart failure) 08/15/2013 0 01/23/2016 Stress incontinence 11/21/2012 03/24/2020 Overview: Did see Dr. Armas Bronchitis 11/09/2012 03/02/2013 Sinus infection 11/09/2012 03/02/2013 Diabetes mellitus 11/09/2012 11/14/2013 COPD (chronic obstructive pulmonary disease) 11/09/2012 documented as of this encounter (statuses as of 05/11/2022) [facility] History of Past illness Narrative* Problem Noted Date Resolved Date Chest pain 01/01/2019 04/27/2019 Last Assessment & Plan: Assessment: resolved now. Per patient similar to her other episodes of angina EKG x2 is normal Cycle troponin Stress test done in 12/2018 without evidence of ischemia Patient would like to go home later this evening if no further symptoms Obesity, Class III, BMI >= 40 06/26/2018 Last Assessment & Plan: Counseled on lifestyle modifications Well adult exam 12/05/2017 11/29/2019 Overview: last done: 11/29/2018 Shoulder pain 01/07/2014 11/29/2019 CHF (congestive heart failure) 08/15/2013 0 01/23/2016 Stress incontinence 11/21/2012 03/24/2020 Overview: Did see Dr. Armas Bronchitis 11/09/2012 03/02/2013 Sinus infection 11/09/2012 03/02/2013 Diabetes mellitus 11/09/2012 11/14/2013 COPD (chronic obstructive pulmonary disease) 11/09/2012 documented as of this encounter (statuses as of 05/11/2022) [facility] History of Past illness Narrative* Problem Noted Date Resolved Date Chest pain 01/01/2019 04/27/2019 Last Assessment & Plan: Assessment: resolved now. Per patient similar to her other episodes of angina EKG x2 is normal Cycle troponin Stress test done in 12/2018 without evidence of ischemia Patient would like to go home later this evening if no further symptoms Obesity, Class III, BMI >= 40 06/26/2018 Last Assessment & Plan: Counseled on lifestyle modifications Well adult exam 12/05/2017 11/29/2019 Overview: last done: 11/29/2018 Shoulder pain 01/07/2014 11/29/2019 CHF (congestive heart failure) 08/15/2013 0 01/23/2016 Stress incontinence 11/21/2012 03/24/2020 Overview: Did see Dr. Armas Bronchitis 11/09/2012 03/02/2013 Sinus infection 11/09/2012 03/02/2013 Diabetes mellitus 11/09/2012 11/14/2013 COPD (chronic obstructive pulmonary disease) 11/09/2012 documented as of this encounter (statuses as of 05/12/2022) [facility] History of Past illness Narrative* Problem Noted Date Resolved Date Chest pain 01/01/2019 04/27/2019 Last Assessment & Plan: Assessment: resolved now. Per patient similar to her other episodes of angina EKG x2 is normal Cycle troponin Stress test done in 12/2018 without evidence of ischemia Patient would like to go home later this evening if no further symptoms Obesity, Class III, BMI >= 40 06/26/2018 Last Assessment & Plan: Counseled on lifestyle modifications Well adult exam 12/05/2017 11/29/2019 Overview: last done: 11/29/2018 Shoulder pain 01/07/2014 11/29/2019 CHF (congestive heart failure) 08/15/2013 0 01/23/2016 Stress incontinence 11/21/2012 03/24/2020 Overview: Did see Dr. Armas Bronchitis 11/09/2012 03/02/2013 Sinus infection 11/09/2012 03/02/2013 Diabetes mellitus 11/09/2012 11/14/2013 COPD (chronic obstructive pulmonary disease) 11/09/2012 documented as of this encounter (statuses as of 05/13/2022) [facility] History of Past illness Narrative* Problem Noted Date Resolved Date Chest pain 01/01/2019 04/27/2019 Last Assessment & Plan: Assessment: resolved now. Per patient similar to her other episodes of angina EKG x2 is normal Cycle troponin Stress test done in 12/2018 without evidence of ischemia Patient would like to go home later this evening if no further symptoms Obesity, Class III, BMI >= 40 06/26/2018 Last Assessment & Plan: Counseled on lifestyle modifications Well adult exam 12/05/2017 11/29/2019 Overview: last done: 11/29/2018 Shoulder pain 01/07/2014 11/29/2019 CHF (congestive heart failure) 08/15/2013 0 01/23/2016 Stress incontinence 11/21/2012 03/24/2020 Overview: Did see Dr. Armas Bronchitis 11/09/2012 03/02/2013 Sinus infection 11/09/2012 03/02/2013 Diabetes mellitus 11/09/2012 11/14/2013 COPD (chronic obstructive pulmonary disease) 11/09/2012 documented as of this encounter (statuses as of 05/18/2022) [facility] History of Past illness Narrative* Problem Noted Date Resolved Date Chest pain 01/01/2019 04/27/2019 Last Assessment & Plan: Assessment: resolved now. Per patient similar to her other episodes of angina EKG x2 is normal Cycle troponin Stress test done in 12/2018 without evidence of ischemia Patient would like to go home later this evening if no further symptoms Obesity, Class III, BMI >= 40 06/26/2018 Last Assessment & Plan: Counseled on lifestyle modifications Well adult exam 12/05/2017 11/29/2019 Overview: last done: 11/29/2018 Shoulder pain 01/07/2014 11/29/2019 CHF (congestive heart failure) 08/15/2013 0 01/23/2016 Stress incontinence 11/21/2012 03/24/2020 Overview: Did see Dr. Armas Bronchitis 11/09/2012 03/02/2013 Sinus infection 11/09/2012 03/02/2013 Diabetes mellitus 11/09/2012 11/14/2013 COPD (chronic obstructive pulmonary disease) 11/09/2012 documented as of this encounter (statuses as of 05/19/2022) [facility] History of Past illness Narrative* Problem Noted Date Resolved Date Chest pain 01/01/2019 04/27/2019 Last Assessment & Plan: Assessment: resolved now. Per patient similar to her other episodes of angina EKG x2 is normal Cycle troponin Stress test done in 12/2018 without evidence of ischemia Patient would like to go home later this evening if no further symptoms Obesity, Class III, BMI >= 40 06/26/2018 Last Assessment & Plan: Counseled on lifestyle modifications Well adult exam 12/05/2017 11/29/2019 Overview: last done: 11/29/2018 Shoulder pain 01/07/2014 11/29/2019 CHF (congestive heart failure) 08/15/2013 0 01/23/2016 Stress incontinence 11/21/2012 03/24/2020 Overview: Did see Dr. Armas Bronchitis 11/09/2012 03/02/2013 Sinus infection 11/09/2012 03/02/2013 Diabetes mellitus 11/09/2012 11/14/2013 COPD (chronic obstructive pulmonary disease) 11/09/2012 documented as of this encounter (statuses as of 05/24/2022) [facility] History of Past illness Narrative* Problem Noted Date Resolved Date Chest pain 01/01/2019 04/27/2019 Last Assessment & Plan: Assessment: resolved now. Per patient similar to her other episodes of angina EKG x2 is normal Cycle troponin Stress test done in 12/2018 without evidence of ischemia Patient would like to go home later this evening if no further symptoms Obesity, Class III, BMI >= 40 06/26/2018 01 / Last Assessment & Plan: Counseled on lifestyle modifications Well adult exam 12/05/2017 11/29/2019 Overview: last done: 11/29/2018 Shoulder pain 01/07/2014 11/29/2019 CHF (congestive heart failure) 08/15/2013 0 01/23/2016 Stress incontinence 11/21/2012 03/24/2020 Overview: Did see Dr. Armas Bronchitis 11/09/2012 03/02/2013 Sinus infection 11/09/2012 03/02/2013 Diabetes mellitus 11/09/2012 11/14/2013 COPD (chronic obstructive pulmonary disease) 11/09/2012 documented as of this encounter (statuses as of 05/26/2022) [facility] History of Past illness Narrative* Problem Noted Date Resolved Date Chest pain 01/01/2019 04/27/2019 Last Assessment & Plan: Assessment: resolved now. Per patient similar to her other episodes of angina EKG x2 is normal Cycle troponin Stress test done in 12/2018 without evidence of ischemia Patient would like to go home later this evening if no further symptoms Obesity, Class III, BMI >= 40 06/26/2018 Last Assessment & Plan: Counseled on lifestyle modifications Well adult exam 12/05/2017 11/29/2019 Overview: last done: 11/29/2018 Shoulder pain 01/07/2014 11/29/2019 CHF (congestive heart failure) 08/15/2013 0 01/23/2016 Stress incontinence 11/21/2012 03/24/2020 Overview: Did see Dr. Armas Bronchitis 11/09/2012 03/02/2013 Sinus infection 11/09/2012 03/02/2013 Diabetes mellitus 11/09/2012 11/14/2013 COPD (chronic obstructive pulmonary disease) 11/09/2012 documented as of this encounter (statuses as of 05/27/2022) [facility] History of Past illness Narrative* Problem Noted Date Resolved Date Chest pain 01/01/2019 04/27/2019 Last Assessment & Plan: Assessment: resolved now. Per patient similar to her other episodes of angina EKG x2 is normal Cycle troponin Stress test done in 12/2018 without evidence of ischemia Patient would like to go home later this evening if no further symptoms Obesity, Class III, BMI >= 40 06/26/2018 Last Assessment & Plan: Counseled on lifestyle modifications Well adult exam 12/05/2017 11/29/2019 Overview: last done: 11/29/2018 Shoulder pain 01/07/2014 11/29/2019 CHF (congestive heart failure) 08/15/2013 0 01/23/2016 Stress incontinence 11/21/2012 03/24/2020 Overview: Did see Dr. Armas Bronchitis 11/09/2012 03/02/2013 Sinus infection 11/09/2012 03/02/2013 Diabetes mellitus 11/09/2012 11/14/2013 COPD (chronic obstructive pulmonary disease) 11/09/2012 documented as of this encounter (statuses as of 06/01/2022) [facility] History of Past illness Narrative* Problem Noted Date Resolved Date Chest pain 01/01/2019 04/27/2019 Last Assessment & Plan: Assessment: resolved now. Per patient similar to her other episodes of angina EKG x2 is normal Cycle troponin Stress test done in 12/2018 without evidence of ischemia Patient would like to go home later this evening if no further symptoms Obesity, Class III, BMI >= 40 06/26/2018 Last Assessment & Plan: Counseled on lifestyle modifications Well adult exam 12/05/2017 11/29/2019 Overview: last done: 11/29/2018 Shoulder pain 01/07/2014 11/29/2019 CHF (congestive heart failure) 08/15/2013 0 01/23/2016 Stress incontinence 11/21/2012 03/24/2020 Overview: Did see Dr. Armas Bronchitis 11/09/2012 03/02/2013 Sinus infection 11/09/2012 03/02/2013 Diabetes mellitus 11/09/2012 11/14/2013 COPD (chronic obstructive pulmonary disease) 11/09/2012 documented as of this encounter (statuses as of 06/03/2022) [facility] History of Past illness Narrative* Problem Noted Date Resolved Date Chest pain 01/01/2019 04/27/2019 Last Assessment & Plan: Assessment: resolved now. Per patient similar to her other episodes of angina EKG x2 is normal Cycle troponin Stress test done in 12/2018 without evidence of ischemia Patient would like to go home later this evening if no further symptoms Obesity, Class III, BMI >= 40 06/26/2018 Last Assessment & Plan: Counseled on lifestyle modifications Well adult exam 12/05/2017 11/29/2019 Overview: last done: 11/29/2018 Shoulder pain 01/07/2014 11/29/2019 CHF (congestive heart failure) 08/15/2013 0 01/23/2016 Stress incontinence 11/21/2012 03/24/2020 Overview: Did see Dr. Armas Bronchitis 11/09/2012 03/02/2013 Sinus infection 11/09/2012 03/02/2013 Diabetes mellitus 11/09/2012 11/14/2013 COPD (chronic obstructive pulmonary disease) 11/09/2012 documented as of this encounter (statuses as of 06/03/2022) [facility] History of Past illness Narrative* Problem Noted Date Resolved Date Chest pain 01/01/2019 04/27/2019 Last Assessment & Plan: Assessment: resolved now. Per patient similar to her other episodes of angina EKG x2 is normal Cycle troponin Stress test done in 12/2018 without evidence of ischemia Patient would like to go home later this evening if no further symptoms Obesity, Class III, BMI >= 40 06/26/2018 Last Assessment & Plan: Counseled on lifestyle modifications Well adult exam 12/05/2017 11/29/2019 Overview: last done: 11/29/2018 Shoulder pain 01/07/2014 11/29/2019 CHF (congestive heart failure) 08/15/2013 0 01/23/2016 Stress incontinence 11/21/2012 03/24/2020 Overview: Did see Dr. Armas Bronchitis 11/09/2012 03/02/2013 Sinus infection 11/09/2012 03/02/2013 Diabetes mellitus 11/09/2012 11/14/2013 COPD (chronic obstructive pulmonary disease) 11/09/2012 documented as of this encounter (statuses as of 06/09/2022) [facility] History of Past illness Narrative* Problem Noted Date Resolved Date Chest pain 01/01/2019 04/27/2019 Last Assessment & Plan: Assessment: resolved now. Per patient similar to her other episodes of angina EKG x2 is normal Cycle troponin Stress test done in 12/2018 without evidence of ischemia Patient would like to go home later this evening if no further symptoms Obesity, Class III, BMI >= 40 06/26/2018 Last Assessment & Plan: Counseled on lifestyle modifications Well adult exam 12/05/2017 11/29/2019 Overview: last done: 11/29/2018 Shoulder pain 01/07/2014 11/29/2019 CHF (congestive heart failure) 08/15/2013 0 01/23/2016 Stress incontinence 11/21/2012 03/24/2020 Overview: Did see Dr. Armas Bronchitis 11/09/2012 03/02/2013 Sinus infection 11/09/2012 03/02/2013 Diabetes mellitus 11/09/2012 11/14/2013 COPD (chronic obstructive pulmonary disease) 11/09/2012 documented as of this encounter (statuses as of 06/14/2022) [facility] History of Past illness Narrative* Problem Noted Date Resolved Date Chest pain 01/01/2019 04/27/2019 Last Assessment & Plan: Assessment: resolved now. Per patient similar to her other episodes of angina EKG x2 is normal Cycle troponin Stress test done in 12/2018 without evidence of ischemia Patient would like to go home later this evening if no further symptoms Obesity, Class III, BMI >= 40 06/26/2018 Last Assessment & Plan: Counseled on lifestyle modifications Well adult exam 12/05/2017 11/29/2019 Overview: last done: 11/29/2018 Shoulder pain 01/07/2014 11/29/2019 CHF (congestive heart failure) 08/15/2013 0 01/23/2016 Stress incontinence 11/21/2012 03/24/2020 Overview: Did see Dr. Armas Bronchitis 11/09/2012 03/02/2013 Sinus infection 11/09/2012 03/02/2013 Diabetes mellitus 11/09/2012 11/14/2013 COPD (chronic obstructive pulmonary disease) 11/09/2012 documented as of this encounter (statuses as of 06/14/2022) [facility] History of Past illness Narrative* Problem Noted Date Resolved Date Chest pain 01/01/2019 04/27/2019 Last Assessment & Plan: Assessment: resolved now. Per patient similar to her other episodes of angina EKG x2 is normal Cycle troponin Stress test done in 12/2018 without evidence of ischemia Patient would like to go home later this evening if no further symptoms Obesity, Class III, BMI >= 40 06/26/2018 Last Assessment & Plan: Counseled on lifestyle modifications Well adult exam 12/05/2017 11/29/2019 Overview: last done: 11/29/2018 Shoulder pain 01/07/2014 11/29/2019 CHF (congestive heart failure) 08/15/2013 0 01/23/2016 Stress incontinence 11/21/2012 03/24/2020 Overview: Did see Dr. Armas Bronchitis 11/09/2012 03/02/2013 Sinus infection 11/09/2012 03/02/2013 Diabetes mellitus 11/09/2012 11/14/2013 COPD (chronic obstructive pulmonary disease) 11/09/2012 documented as of this encounter (statuses as of 06/14/2022) [facility] History of Past illness Narrative* Problem Noted Date Resolved Date Chest pain 01/01/2019 04/27/2019 Last Assessment & Plan: Assessment: resolved now. Per patient similar to her other episodes of angina EKG x2 is normal Cycle troponin Stress test done in 12/2018 without evidence of ischemia Patient would like to go home later this evening if no further symptoms Obesity, Class III, BMI >= 40 06/26/2018 Last Assessment & Plan: Counseled on lifestyle modifications Well adult exam 12/05/2017 11/29/2019 Overview: last done: 11/29/2018 Shoulder pain 01/07/2014 11/29/2019 CHF (congestive heart failure) 08/15/2013 0 01/23/2016 Stress incontinence 11/21/2012 03/24/2020 Overview: Did see Dr. Armas Bronchitis 11/09/2012 03/02/2013 Sinus infection 11/09/2012 03/02/2013 Diabetes mellitus 11/09/2012 11/14/2013 COPD (chronic obstructive pulmonary disease) 11/09/2012 documented as of this encounter (statuses as of 06/15/2022) [facility] History of Past illness Narrative* Problem Noted Date Resolved Date Chest pain 01/01/2019 04/27/2019 Last Assessment & Plan: Assessment: resolved now. Per patient similar to her other episodes of angina EKG x2 is normal Cycle troponin Stress test done in 12/2018 without evidence of ischemia Patient would like to go home later this evening if no further symptoms Obesity, Class III, BMI >= 40 06/26/2018 Last Assessment & Plan: Counseled on lifestyle modifications Well adult exam 12/05/2017 11/29/2019 Overview: last done: 11/29/2018 Shoulder pain 01/07/2014 11/29/2019 CHF (congestive heart failure) 08/15/2013 0 01/23/2016 Stress incontinence 11/21/2012 03/24/2020 Overview: Did see Dr. Armas Bronchitis 11/09/2012 03/02/2013 Sinus infection 11/09/2012 03/02/2013 Diabetes mellitus 11/09/2012 11/14/2013 COPD (chronic obstructive pulmonary disease) 11/09/2012 documented as of this encounter (statuses as of 06/29/2022) [facility] History of Past illness Narrative* Problem Noted Date Resolved Date Chest pain 01/01/2019 04/27/2019 Last Assessment & Plan: Assessment: resolved now. Per patient similar to her other episodes of angina EKG x2 is normal Cycle troponin Stress test done in 12/2018 without evidence of ischemia Patient would like to go home later this evening if no further symptoms Obesity, Class III, BMI >= 40 06/26/2018 Last Assessment & Plan: Counseled on lifestyle modifications Well adult exam 12/05/2017 11/29/2019 Overview: last done: 11/29/2018 Shoulder pain 01/07/2014 11/29/2019 CHF (congestive heart failure) 08/15/2013 0 01/23/2016 Stress incontinence 11/21/2012 03/24/2020 Overview: Did see Dr. Armas Bronchitis 11/09/2012 03/02/2013 Sinus infection 11/09/2012 03/02/2013 Diabetes mellitus 11/09/2012 11/14/2013 COPD (chronic obstructive pulmonary disease) 11/09/2012 documented as of this encounter (statuses as of 06/29/2022) [facility] History of Past illness Narrative* Problem Noted Date Resolved Date Chest pain 01/01/2019 04/27/2019 Last Assessment & Plan: Assessment: resolved now. Per patient similar to her other episodes of angina EKG x2 is normal Cycle troponin Stress test done in 12/2018 without evidence of ischemia Patient would like to go home later this evening if no further symptoms Obesity, Class III, BMI >= 40 06/26/2018 Last Assessment & Plan: Counseled on lifestyle modifications Well adult exam 12/05/2017 11/29/2019 Overview: last done: 11/29/2018 Shoulder pain 01/07/2014 11/29/2019 CHF (congestive heart failure) 08/15/2013 0 01/23/2016 Stress incontinence 11/21/2012 03/24/2020 Overview: Did see Dr. Armas Bronchitis 11/09/2012 03/02/2013 Sinus infection 11/09/2012 03/02/2013 Diabetes mellitus 11/09/2012 11/14/2013 COPD (chronic obstructive pulmonary disease) 11/09/2012 documented as of this encounter (statuses as of 07/04/2022) [facility] History of Past illness Narrative* Problem Noted Date Resolved Date Chest pain 01/01/2019 04/27/2019 Last Assessment & Plan: Assessment: resolved now. Per patient similar to her other episodes of angina EKG x2 is normal Cycle troponin Stress test done in 12/2018 without evidence of ischemia Patient would like to go home later this evening if no further symptoms Obesity, Class III, BMI >= 40 06/26/2018 Last Assessment & Plan: Counseled on lifestyle modifications Well adult exam 12/05/2017 11/29/2019 Overview: last done: 11/29/2018 Shoulder pain 01/07/2014 11/29/2019 CHF (congestive heart failure) 08/15/2013 0 01/23/2016 Stress incontinence 11/21/2012 03/24/2020 Overview: Did see Dr. Armas Bronchitis 11/09/2012 03/02/2013 Sinus infection 11/09/2012 03/02/2013 Diabetes mellitus 11/09/2012 11/14/2013 COPD (chronic obstructive pulmonary disease) 11/09/2012 documented as of this encounter (statuses as of 07/05/2022) [facility] History of Past illness Narrative* Problem Noted Date Resolved Date Chest pain 01/01/2019 04/27/2019 Last Assessment & Plan: Assessment: resolved now. Per patient similar to her other episodes of angina EKG x2 is normal Cycle troponin Stress test done in 12/2018 without evidence of ischemia Patient would like to go home later this evening if no further symptoms Obesity, Class III, BMI >= 40 06/26/2018 Last Assessment & Plan: Counseled on lifestyle modifications Well adult exam 12/05/2017 11/29/2019 Overview: last done: 11/29/2018 Shoulder pain 01/07/2014 11/29/2019 CHF (congestive heart failure) 08/15/2013 0 01/23/2016 Stress incontinence 11/21/2012 03/24/2020 Overview: Did see Dr. Armas Bronchitis 11/09/2012 03/02/2013 Sinus infection 11/09/2012 03/02/2013 Diabetes mellitus 11/09/2012 11/14/2013 COPD (chronic obstructive pulmonary disease) 11/09/2012 documented as of this encounter (statuses as of 07/06/2022) [facility]02-25-2019 History of Past illness Narrative* Problem Noted Date Resolved Date Chest pain 01/01/2019 04/27/2019 Last Assessment & Plan: Assessment: resolved now. Per patient similar to her other episodes of angina EKG x2 is normal Cycle troponin Stress test done in 12/2018 without evidence of ischemia Patient would like to go home later this evening if no further symptoms Obesity, Class III, BMI >= 40 06/26/2018 Last Assessment & Plan: Counseled on lifestyle modifications Well adult exam 12/05/2017 11/29/2019 Overview: last done: 11/29/2018 Shoulder pain 01/07/2014 11/29/2019 CHF (congestive heart failure) 08/15/2013 0 01/23/2016 Stress incontinence 11/21/2012 03/24/2020 Overview: Did see Dr. Armas Bronchitis 11/09/2012 03/02/2013 Sinus infection 11/09/2012 03/02/2013 Diabetes mellitus 11/09/2012 11/14/2013 COPD (chronic obstructive pulmonary disease) 11/09/2012 documented as of this encounter (statuses as of 07/26/2022) [facility]2019 History of Past illness Narrative* Problem Noted Date Resolved Date Chest pain 01/01/2019 04/27/2019 Last Assessment & Plan: Assessment: resolved now. Per patient similar to her other episodes of angina EKG x2 is normal Cycle troponin Stress test done in 12/2018 without evidence of ischemia Patient would like to go home later this evening if no further symptoms Obesity, Class III, BMI >= 40 06/26/2018 Last Assessment & Plan: Counseled on lifestyle modifications Well adult exam 12/05/2017 11/29/2019 Overview: last done: 11/29/2018 Shoulder pain 01/07/2014 11/29/2019 CHF (congestive heart failure) 08/15/2013 0 01/23/2016 Stress incontinence 11/21/2012 03/24/2020 Overview: Did see Dr. Armas Bronchitis 11/09/2012 03/02/2013 Sinus infection 11/09/2012 03/02/2013 Diabetes mellitus 11/09/2012 11/14/2013 COPD (chronic obstructive pulmonary disease) 11/09/2012 documented as of this encounter (statuses as of 07/27/2022) [facility] History of Past illness Narrative* Problem Noted Date Resolved Date Chest pain 01/01/2019 04/27/2019 Last Assessment & Plan: Assessment: resolved now. Per patient similar to her other episodes of angina EKG x2 is normal Cycle troponin Stress test done in 12/2018 without evidence of ischemia Patient would like to go home later this evening if no further symptoms Obesity, Class III, BMI >= 40 06/26/2018 Last Assessment & Plan: Counseled on lifestyle modifications Well adult exam 12/05/2017 11/29/2019 Overview: last done: 11/29/2018 Shoulder pain 01/07/2014 11/29/2019 CHF (congestive heart failure) 08/15/2013 0 01/23/2016 Stress incontinence 11/21/2012 03/24/2020 Overview: Did see Dr. Armas Bronchitis 11/09/2012 03/02/2013 Sinus infection 11/09/2012 03/02/2013 Diabetes mellitus 11/09/2012 11/14/2013 COPD (chronic obstructive pulmonary disease) 11/09/2012 documented as of this encounter (statuses as of 08/04/2022) [facility] History of Past illness Narrative* Problem Noted Date Resolved Date Chest pain 01/01/2019 04/27/2019 Last Assessment & Plan: Assessment: resolved now. Per patient similar to her other episodes of angina EKG x2 is normal Cycle troponin Stress test done in 12/2018 without evidence of ischemia Patient would like to go home later this evening if no further symptoms Obesity, Class III, BMI >= 40 06/26/2018 Last Assessment & Plan: Counseled on lifestyle modifications Well adult exam 12/05/2017 11/29/2019 Overview: last done: 11/29/2018 Shoulder pain 01/07/2014 11/29/2019 CHF (congestive heart failure) 08/15/2013 0 01/23/2016 Stress incontinence 11/21/2012 03/24/2020 Overview: Did see Dr. Armas Bronchitis 11/09/2012 03/02/2013 Sinus infection 11/09/2012 03/02/2013 Diabetes mellitus 11/09/2012 11/14/2013 COPD (chronic obstructive pulmonary disease) 11/09/2012 documented as of this encounter (statuses as of 08/27/2022) [facility] History of Past illness Narrative* Problem Noted Date Resolved Date Chest pain 01/01/2019 04/27/2019 Last Assessment & Plan: Assessment: resolved now. Per patient similar to her other episodes of angina EKG x2 is normal Cycle troponin Stress test done in 12/2018 without evidence of ischemia Patient would like to go home later this evening if no further symptoms Obesity, Class III, BMI >= 40 06/26/2018 Last Assessment & Plan: Counseled on lifestyle modifications Well adult exam 12/05/2017 11/29/2019 Overview: last done: 11/29/2018 Shoulder pain 01/07/2014 11/29/2019 CHF (congestive heart failure) 08/15/2013 0 01/23/2016 Stress incontinence 11/21/2012 03/24/2020 Overview: Did see Dr. Armas Bronchitis 11/09/2012 03/02/2013 Sinus infection 11/09/2012 03/02/2013 Diabetes mellitus 11/09/2012 11/14/2013 COPD (chronic obstructive pulmonary disease) 11/09/2012 documented as of this encounter (statuses as of 09/08/2022) [facility] History of Past illness Narrative* Problem Noted Date Resolved Date Chest pain 01/01/2019 04/27/2019 Last Assessment & Plan: Assessment: resolved now. Per patient similar to her other episodes of angina EKG x2 is normal Cycle troponin Stress test done in 12/2018 without evidence of ischemia Patient would like to go home later this evening if no further symptoms Obesity, Class III, BMI >= 40 06/26/2018 Last Assessment & Plan: Counseled on lifestyle modifications Well adult exam 12/05/2017 11/29/2019 Overview: last done: 11/29/2018 Shoulder pain 01/07/2014 11/29/2019 CHF (congestive heart failure) 08/15/2013 0 01/23/2016 Stress incontinence 11/21/2012 03/24/2020 Overview: Did see Dr. Armas Bronchitis 11/09/2012 03/02/2013 Sinus infection 11/09/2012 03/02/2013 Diabetes mellitus 11/09/2012 11/14/2013 COPD (chronic obstructive pulmonary disease) 11/09/2012 documented as of this encounter (statuses as of 09/15/2022) [facility] History of Past illness Narrative* Problem Noted Date Resolved Date Chest pain 01/01/2019 04/27/2019 Last Assessment & Plan: Assessment: resolved now. Per patient similar to her other episodes of angina EKG x2 is normal Cycle troponin Stress test done in 12/2018 without evidence of ischemia Patient would like to go home later this evening if no further symptoms Obesity, Class III, BMI >= 40 06/26/2018 Last Assessment & Plan: Counseled on lifestyle modifications Well adult exam 12/05/2017 11/29/2019 Overview: last done: 11/29/2018 Shoulder pain 01/07/2014 11/29/2019 CHF (congestive heart failure) 08/15/2013 0 01/23/2016 Stress incontinence 11/21/2012 03/24/2020 Overview: Did see Dr. Armas Bronchitis 11/09/2012 03/02/2013 Sinus infection 11/09/2012 03/02/2013 Diabetes mellitus 11/09/2012 11/14/2013 COPD (chronic obstructive pulmonary disease) 11/09/2012 documented as of this encounter (statuses as of 09/15/2022) [facility] History of Past illness Narrative* Problem Noted Date Resolved Date Chest pain 01/01/2019 04/27/2019 Last Assessment & Plan: Assessment: resolved now. Per patient similar to her other episodes of angina EKG x2 is normal Cycle troponin Stress test done in 12/2018 without evidence of ischemia Patient would like to go home later this evening if no further symptoms Obesity, Class III, BMI >= 40 06/26/2018 Last Assessment & Plan: Counseled on lifestyle modifications Well adult exam 12/05/2017 11/29/2019 Overview: last done: 11/29/2018 Shoulder pain 01/07/2014 11/29/2019 CHF (congestive heart failure) 08/15/2013 0 01/23/2016 Stress incontinence 11/21/2012 03/24/2020 Overview: Did see Dr. Armas Bronchitis 11/09/2012 03/02/2013 Sinus infection 11/09/2012 03/02/2013 Diabetes mellitus 11/09/2012 11/14/2013 COPD (chronic obstructive pulmonary disease) 11/09/2012 documented as of this encounter (statuses as of 10/14/2022) [facility] History of Past illness Narrative* Problem Noted Date Resolved Date Chest pain 01/01/2019 04/27/2019 Last Assessment & Plan: Assessment: resolved now. Per patient similar to her other episodes of angina EKG x2 is normal Cycle troponin Stress test done in 12/2018 without evidence of ischemia Patient would like to go home later this evening if no further symptoms Obesity, Class III, BMI >= 40 06/26/2018 Last Assessment & Plan: Counseled on lifestyle modifications Well adult exam 12/05/2017 11/29/2019 Overview: last done: 11/29/2018 Shoulder pain 01/07/2014 11/29/2019 CHF (congestive heart failure) 08/15/2013 0 01/23/2016 Stress incontinence 11/21/2012 03/24/2020 Overview: Did see Dr. Armas Bronchitis 11/09/2012 03/02/2013 Sinus infection 11/09/2012 03/02/2013 Diabetes mellitus 11/09/2012 11/14/2013 COPD (chronic obstructive pulmonary disease) 11/09/2012 documented as of this encounter (statuses as of 11/10/2022) [facility] History of Past illness Narrative* Problem Noted Date Resolved Date Chest pain 01/01/2019 04/27/2019 Last Assessment & Plan: Assessment: resolved now. Per patient similar to her other episodes of angina EKG x2 is normal Cycle troponin Stress test done in 12/2018 without evidence of ischemia Patient would like to go home later this evening if no further symptoms Obesity, Class III, BMI >= 40 06/26/2018 Last Assessment & Plan: Counseled on lifestyle modifications Well adult exam 12/05/2017 11/29/2019 Overview: last done: 11/29/2018 Shoulder pain 01/07/2014 11/29/2019 CHF (congestive heart failure) 08/15/2013 0 01/23/2016 Stress incontinence 11/21/2012 03/24/2020 Overview: Did see Dr. Armas Bronchitis 11/09/2012 03/02/2013 Sinus infection 11/09/2012 03/02/2013 Diabetes mellitus 11/09/2012 11/14/2013 COPD (chronic obstructive pulmonary disease) 11/09/2012 documented as of this encounter (statuses as of 11/10/2022) [facility] History of Past illness Narrative* Problem Noted Date Resolved Date Chest pain 01/01/2019 04/27/2019 Last Assessment & Plan: Assessment: resolved now. Per patient similar to her other episodes of angina EKG x2 is normal Cycle troponin Stress test done in 12/2018 without evidence of ischemia Patient would like to go home later this evening if no further symptoms Obesity, Class III, BMI >= 40 06/26/2018 Last Assessment & Plan: Counseled on lifestyle modifications Well adult exam 12/05/2017 11/29/2019 Overview: last done: 11/29/2018 Shoulder pain 01/07/2014 11/29/2019 CHF (congestive heart failure) 08/15/2013 0 01/23/2016 Stress incontinence 11/21/2012 03/24/2020 Overview: Did see Dr. Armas Bronchitis 11/09/2012 03/02/2013 Sinus infection 11/09/2012 03/02/2013 Diabetes mellitus 11/09/2012 11/14/2013 COPD (chronic obstructive pulmonary disease) 11/09/2012 documented as of this encounter (statuses as of 11/11/2022) [facility] History of Past illness Narrative* Problem Noted Date Resolved Date Chest pain 01/01/2019 04/27/2019 Last Assessment & Plan: Assessment: resolved now. Per patient similar to her other episodes of angina EKG x2 is normal Cycle troponin Stress test done in 12/2018 without evidence of ischemia Patient would like to go home later this evening if no further symptoms Obesity, Class III, BMI >= 40 06/26/2018 Last Assessment & Plan: Counseled on lifestyle modifications Well adult exam 12/05/2017 11/29/2019 Overview: last done: 11/29/2018 Shoulder pain 01/07/2014 11/29/2019 CHF (congestive heart failure) 08/15/2013 0 01/23/2016 Stress incontinence 11/21/2012 03/24/2020 Overview: Did see Dr. Armas Bronchitis 11/09/2012 03/02/2013 Sinus infection 11/09/2012 03/02/2013 Diabetes mellitus 11/09/2012 11/14/2013 COPD (chronic obstructive pulmonary disease) 11/09/2012 documented as of this encounter (statuses as of 11/11/2022) [facility] History of Past illness Narrative* Problem Noted Date Resolved Date Chest pain 01/01/2019 04/27/2019 Last Assessment & Plan: Assessment: resolved now. Per patient similar to her other episodes of angina EKG x2 is normal Cycle troponin Stress test done in 12/2018 without evidence of ischemia Patient would like to go home later this evening if no further symptoms Obesity, Class III, BMI >= 40 06/26/2018 Last Assessment & Plan: Counseled on lifestyle modifications Well adult exam 12/05/2017 11/29/2019 Overview: last done: 11/29/2018 Shoulder pain 01/07/2014 11/29/2019 CHF (congestive heart failure) 08/15/2013 0 01/23/2016 Stress incontinence 11/21/2012 03/24/2020 Overview: Did see Dr. Armas Bronchitis 11/09/2012 03/02/2013 Sinus infection 11/09/2012 03/02/2013 Diabetes mellitus 11/09/2012 11/14/2013 COPD (chronic obstructive pulmonary disease) 11/09/2012 documented as of this encounter (statuses as of 11/16/2022) [facility] History of Past illness Narrative* Problem Noted Date Resolved Date Chest pain 01/01/2019 04/27/2019 Last Assessment & Plan: Assessment: resolved now. Per patient similar to her other episodes of angina EKG x2 is normal Cycle troponin Stress test done in 12/2018 without evidence of ischemia Patient would like to go home later this evening if no further symptoms Obesity, Class III, BMI >= 40 06/26/2018 Last Assessment & Plan: Counseled on lifestyle modifications Well adult exam 12/05/2017 11/29/2019 Overview: last done: 11/29/2018 Shoulder pain 01/07/2014 11/29/2019 CHF (congestive heart failure) 08/15/2013 0 01/23/2016 Stress incontinence 11/21/2012 03/24/2020 Overview: Did see Dr. Armas Bronchitis 11/09/2012 03/02/2013 Sinus infection 11/09/2012 03/02/2013 Diabetes mellitus 11/09/2012 11/14/2013 COPD (chronic obstructive pulmonary disease) 11/09/2012 documented as of this encounter (statuses as of 11/19/2022) [facility] History of Past illness Narrative* Problem Noted Date Resolved Date Chest pain 01/01/2019 04/27/2019 Last Assessment & Plan: Assessment: resolved now. Per patient similar to her other episodes of angina EKG x2 is normal Cycle troponin Stress test done in 12/2018 without evidence of ischemia Patient would like to go home later this evening if no further symptoms Obesity, Class III, BMI >= 40 06/26/2018 Last Assessment & Plan: Counseled on lifestyle modifications Well adult exam 12/05/2017 11/29/2019 Overview: last done: 11/29/2018 Shoulder pain 01/07/2014 11/29/2019 CHF (congestive heart failure) 08/15/2013 0 01/23/2016 Stress incontinence 11/21/2012 03/24/2020 Overview: Did see Dr. Armas Bronchitis 11/09/2012 03/02/2013 Sinus infection 11/09/2012 03/02/2013 Diabetes mellitus 11/09/2012 11/14/2013 COPD (chronic obstructive pulmonary disease) 11/09/2012 documented as of this encounter (statuses as of 11/19/2022) [facility] History of Past illness Narrative* Problem Noted Date Resolved Date Chest pain 01/01/2019 04/27/2019 Last Assessment & Plan: Assessment: resolved now. Per patient similar to her other episodes of angina EKG x2 is normal Cycle troponin Stress test done in 12/2018 without evidence of ischemia Patient would like to go home later this evening if no further symptoms Obesity, Class III, BMI >= 40 06/26/2018 Last Assessment & Plan: Counseled on lifestyle modifications Well adult exam 12/05/2017 11/29/2019 Overview: last done: 11/29/2018 Shoulder pain 01/07/2014 11/29/2019 CHF (congestive heart failure) 08/15/2013 0 01/23/2016 Stress incontinence 11/21/2012 03/24/2020 Overview: Did see Dr. Armas Bronchitis 11/09/2012 03/02/2013 Sinus infection 11/09/2012 03/02/2013 Diabetes mellitus 11/09/2012 11/14/2013 COPD (chronic obstructive pulmonary disease) 11/09/2012 documented as of this encounter (statuses as of 11/22/2022) [facility] History of Past illness Narrative* Problem Noted Date Resolved Date Chest pain 01/01/2019 04/27/2019 Last Assessment & Plan: Assessment: resolved now. Per patient similar to her other episodes of angina EKG x2 is normal Cycle troponin Stress test done in 12/2018 without evidence of ischemia Patient would like to go home later this evening if no further symptoms Obesity, Class III, BMI >= 40 06/26/2018 Last Assessment & Plan: Counseled on lifestyle modifications Well adult exam 12/05/2017 11/29/2019 Overview: last done: 11/29/2018 Shoulder pain 01/07/2014 11/29/2019 CHF (congestive heart failure) 08/15/2013 0 01/23/2016 Stress incontinence 11/21/2012 03/24/2020 Overview: Did see Dr. Armas Bronchitis 11/09/2012 03/02/2013 Sinus infection 11/09/2012 03/02/2013 Diabetes mellitus 11/09/2012 11/14/2013 COPD (chronic obstructive pulmonary disease) 11/09/2012 documented as of this encounter (statuses as of 12/02/2022) [facility] History of Past illness Narrative* Problem Noted Date Resolved Date Chest pain 01/01/2019 04/27/2019 Last Assessment & Plan: Assessment: resolved now. Per patient similar to her other episodes of angina EKG x2 is normal Cycle troponin Stress test done in 12/2018 without evidence of ischemia Patient would like to go home later this evening if no further symptoms Obesity, Class III, BMI >= 40 06/26/2018 Last Assessment & Plan: Counseled on lifestyle modifications Well adult exam 12/05/2017 11/29/2019 Overview: last done: 11/29/2018 Shoulder pain 01/07/2014 11/29/2019 CHF (congestive heart failure) 08/15/2013 0 01/23/2016 Stress incontinence 11/21/2012 03/24/2020 Overview: Did see Dr. Armas Bronchitis 11/09/2012 03/02/2013 Sinus infection 11/09/2012 03/02/2013 Diabetes mellitus 11/09/2012 11/14/2013 COPD (chronic obstructive pulmonary disease) 11/09/2012 documented as of this encounter (statuses as of 12/07/2022) [facility] History of Past illness Narrative* Problem Noted Date Resolved Date Chest pain 01/01/2019 04/27/2019 Last Assessment & Plan: Assessment: resolved now. Per patient similar to her other episodes of angina EKG x2 is normal Cycle troponin Stress test done in 12/2018 without evidence of ischemia Patient would like to go home later this evening if no further symptoms Obesity, Class III, BMI >= 40 06/26/2018 Last Assessment & Plan: Counseled on lifestyle modifications Well adult exam 12/05/2017 11/29/2019 Overview: last done: 11/29/2018 Shoulder pain 01/07/2014 11/29/2019 CHF (congestive heart failure) 08/15/2013 0 01/23/2016 Stress incontinence 11/21/2012 03/24/2020 Overview: Did see Dr. Armas Bronchitis 11/09/2012 03/02/2013 Sinus infection 11/09/2012 03/02/2013 Diabetes mellitus 11/09/2012 11/14/2013 COPD (chronic obstructive pulmonary disease) 11/09/2012 documented as of this encounter (statuses as of 12/13/2022) [facility] History of Past illness Narrative* Problem Noted Date Resolved Date Chest pain 01/01/2019 04/27/2019 Last Assessment & Plan: Assessment: resolved now. Per patient similar to her other episodes of angina EKG x2 is normal Cycle troponin Stress test done in 12/2018 without evidence of ischemia Patient would like to go home later this evening if no further symptoms Obesity, Class III, BMI >= 40 06/26/2018 Last Assessment & Plan: Counseled on lifestyle modifications Well adult exam 12/05/2017 11/29/2019 Overview: last done: 11/29/2018 Shoulder pain 01/07/2014 11/29/2019 CHF (congestive heart failure) 08/15/2013 0 01/23/2016 Stress incontinence 11/21/2012 03/24/2020 Overview: Did see Dr. Armas Bronchitis 11/09/2012 03/02/2013 Sinus infection 11/09/2012 03/02/2013 Diabetes mellitus 11/09/2012 11/14/2013 COPD (chronic obstructive pulmonary disease) 11/09/2012 documented as of this encounter (statuses as of 12/16/2022) [facility] History of Past illness Narrative* Problem Noted Date Resolved Date Chest pain 01/01/2019 04/27/2019 Last Assessment & Plan: Assessment: resolved now. Per patient similar to her other episodes of angina EKG x2 is normal Cycle troponin Stress test done in 12/2018 without evidence of ischemia Patient would like to go home later this evening if no further symptoms Obesity, Class III, BMI >= 40 06/26/2018 Last Assessment & Plan: Counseled on lifestyle modifications Well adult exam 12/05/2017 11/29/2019 Overview: last done: 11/29/2018 Shoulder pain 01/07/2014 11/29/2019 CHF (congestive heart failure) 08/15/2013 0 01/23/2016 Stress incontinence 11/21/2012 03/24/2020 Overview: Did see Dr. Armas Bronchitis 11/09/2012 03/02/2013 Sinus infection 11/09/2012 03/02/2013 Diabetes mellitus 11/09/2012 11/14/2013 COPD (chronic obstructive pulmonary disease) 11/09/2012 documented as of this encounter (statuses as of 12/23/2022) [facility] History of Past illness Narrative* Problem Noted Date Resolved Date Chest pain 01/01/2019 04/27/2019 Last Assessment & Plan: Assessment: resolved now. Per patient similar to her other episodes of angina EKG x2 is normal Cycle troponin Stress test done in 12/2018 without evidence of ischemia Patient would like to go home later this evening if no further symptoms Obesity, Class III, BMI >= 40 06/26/2018 Last Assessment & Plan: Counseled on lifestyle modifications Well adult exam 12/05/2017 11/29/2019 Overview: last done: 11/29/2018 Shoulder pain 01/07/2014 11/29/2019 CHF (congestive heart failure) 08/15/2013 0 01/23/2016 Stress incontinence 11/21/2012 03/24/2020 Overview: Did see Dr. Armas Bronchitis 11/09/2012 03/02/2013 Sinus infection 11/09/2012 03/02/2013 Diabetes mellitus 11/09/2012 11/14/2013 COPD (chronic obstructive pulmonary disease) 11/09/2012 documented as of this encounter (statuses as of 12/24/2022) [facility] History of Past illness Narrative* Problem Noted Date Resolved Date Chest pain 01/01/2019 04/27/2019 Last Assessment & Plan: Assessment: resolved now. Per patient similar to her other episodes of angina EKG x2 is normal Cycle troponin Stress test done in 12/2018 without evidence of ischemia Patient would like to go home later this evening if no further symptoms Obesity, Class III, BMI >= 40 06/26/2018 Last Assessment & Plan: Counseled on lifestyle modifications Well adult exam 12/05/2017 11/29/2019 Overview: last done: 11/29/2018 Shoulder pain 01/07/2014 11/29/2019 CHF (congestive heart failure) 08/15/2013 0 01/23/2016 Stress incontinence 11/21/2012 03/24/2020 Overview: Did see Dr. Armas Bronchitis 11/09/2012 03/02/2013 Sinus infection 11/09/2012 03/02/2013 Diabetes mellitus 11/09/2012 11/14/2013 COPD (chronic obstructive pulmonary disease) 11/09/2012 documented as of this encounter (statuses as of 12/27/2022) [facility] History of Past illness Narrative* Problem Noted Date Resolved Date Chest pain 01/01/2019 04/27/2019 Last Assessment & Plan: Assessment: resolved now. Per patient similar to her other episodes of angina EKG x2 is normal Cycle troponin Stress test done in 12/2018 without evidence of ischemia Patient would like to go home later this evening if no further symptoms Obesity, Class III, BMI >= 40 06/26/2018 Last Assessment & Plan: Counseled on lifestyle modifications Well adult exam 12/05/2017 11/29/2019 Overview: last done: 11/29/2018 Shoulder pain 01/07/2014 11/29/2019 CHF (congestive heart failure) 08/15/2013 0 01/23/2016 Stress incontinence 11/21/2012 03/24/2020 Overview: Did see Dr. Armas Bronchitis 11/09/2012 03/02/2013 Sinus infection 11/09/2012 03/02/2013 Diabetes mellitus 11/09/2012 11/14/2013 COPD (chronic obstructive pulmonary disease) 11/09/2012 documented as of this encounter (statuses as of 12/29/2022) [facility] History of Past illness Narrative* Problem Noted Date Resolved Date Chest pain 01/01/2019 04/27/2019 Last Assessment & Plan: Assessment: resolved now. Per patient similar to her other episodes of angina EKG x2 is normal Cycle troponin Stress test done in 12/2018 without evidence of ischemia Patient would like to go home later this evening if no further symptoms Obesity, Class III, BMI >= 40 06/26/2018 Last Assessment & Plan: Counseled on lifestyle modifications Well adult exam 12/05/2017 11/29/2019 Overview: last done: 11/29/2018 Shoulder pain 01/07/2014 11/29/2019 CHF (congestive heart failure) 08/15/2013 0 01/23/2016 Stress incontinence 11/21/2012 03/24/2020 Overview: Did see Dr. Armas Bronchitis 11/09/2012 03/02/2013 Sinus infection 11/09/2012 03/02/2013 Diabetes mellitus 11/09/2012 11/14/2013 COPD (chronic obstructive pulmonary disease) 11/09/2012 documented as of this encounter (statuses as of 01/06/2023) [facility]02[facility]-2019 History of Past illness Narrative* Problem Noted Date Resolved Date Chest pain 01/01/2019 04/27/2019 Last Assessment & Plan: Assessment: resolved now. Per patient similar to her other episodes of angina EKG x2 is normal Cycle troponin Stress test done in 12/2018 without evidence of ischemia Patient would like to go home later this evening if no further symptoms Obesity, Class III, BMI >= 40 06/26/2018 Last Assessment & Plan: Counseled on lifestyle modifications Well adult exam 12/05/2017 11/29/2019 Overview: last done: 11/29/2018 Shoulder pain 01/07/2014 11/29/2019 CHF (congestive heart failure) 08/15/2013 0 01/23/2016 Stress incontinence 11/21/2012 03/24/2020 Overview: Did see Dr. Armas Bronchitis 11/09/2012 03/02/2013 Sinus infection 11/09/2012 03/02/2013 Diabetes mellitus 11/09/2012 11/14/2013 COPD (chronic obstructive pulmonary disease) 11/09/2012 documented as of this encounter (statuses as of 01/07/2023) [facility] History of Past illness Narrative* Problem Noted Date Resolved Date Chest pain 01/01/2019 04/27/2019 Last Assessment & Plan: Assessment: resolved now. Per patient similar to her other episodes of angina EKG x2 is normal Cycle troponin Stress test done in 12/2018 without evidence of ischemia Patient would like to go home later this evening if no further symptoms Obesity, Class III, BMI >= 40 06/26/2018 Last Assessment & Plan: Counseled on lifestyle modifications Well adult exam 12/05/2017 11/29/2019 Overview: last done: 11/29/2018 Shoulder pain 01/07/2014 11/29/2019 CHF (congestive heart failure) 08/15/2013 0 01/23/2016 Stress incontinence 11/21/2012 03/24/2020 Overview: Did see Dr. Armas Bronchitis 11/09/2012 03/02/2013 Sinus infection 11/09/2012 03/02/2013 Diabetes mellitus 11/09/2012 11/14/2013 COPD (chronic obstructive pulmonary disease) 11/09/2012 documented as of this encounter (statuses as of 01/14/2023) [facility] History of Past illness Narrative* Problem Noted Date Resolved Date Chest pain 01/01/2019 04/27/2019 Last Assessment & Plan: Assessment: resolved now. Per patient similar to her other episodes of angina EKG x2 is normal Cycle troponin Stress test done in 12/2018 without evidence of ischemia Patient would like to go home later this evening if no further symptoms Obesity, Class III, BMI >= 40 06/26/2018 Last Assessment & Plan: Counseled on lifestyle modifications Well adult exam 12/05/2017 11/29/2019 Overview: last done: 11/29/2018 Shoulder pain 01/07/2014 11/29/2019 CHF (congestive heart failure) 08/15/2013 0 01/23/2016 Stress incontinence 11/21/2012 03/24/2020 Overview: Did see Dr. Armas Bronchitis 11/09/2012 03/02/2013 Sinus infection 11/09/2012 03/02/2013 Diabetes mellitus 11/09/2012 11/14/2013 COPD (chronic obstructive pulmonary disease) 11/09/2012 documented as of this encounter (statuses as of 01/18/2023) [facility] History of Past illness Narrative* Problem Noted Date Resolved Date Chest pain 01/01/2019 04/27/2019 Last Assessment & Plan: Assessment: resolved now. Per patient similar to her other episodes of angina EKG x2 is normal Cycle troponin Stress test done in 12/2018 without evidence of ischemia Patient would like to go home later this evening if no further symptoms Obesity, Class III, BMI >= 40 06/26/2018 Last Assessment & Plan: Counseled on lifestyle modifications Well adult exam 12/05/2017 11/29/2019 Overview: last done: 11/29/2018 Shoulder pain 01/07/2014 11/29/2019 CHF (congestive heart failure) 08/15/2013 0 01/23/2016 Stress incontinence 11/21/2012 03/24/2020 Overview: Did see Dr. Armas Bronchitis 11/09/2012 03/02/2013 Sinus infection 11/09/2012 03/02/2013 Diabetes mellitus 11/09/2012 11/14/2013 COPD (chronic obstructive pulmonary disease) 11/09/2012 documented as of this encounter (statuses as of 01/19/2023) [facility] History of Past illness Narrative* Problem Noted Date Resolved Date Chest pain 01/01/2019 04/27/2019 Last Assessment & Plan: Assessment: resolved now. Per patient similar to her other episodes of angina EKG x2 is normal Cycle troponin Stress test done in 12/2018 without evidence of ischemia Patient would like to go home later this evening if no further symptoms Obesity, Class III, BMI >= 40 06/26/2018 Last Assessment & Plan: Counseled on lifestyle modifications Well adult exam 12/05/2017 11/29/2019 Overview: last done: 11/29/2018 Shoulder pain 01/07/2014 11/29/2019 CHF (congestive heart failure) 08/15/2013 0 01/23/2016 Stress incontinence 11/21/2012 03/24/2020 Overview: Did see Dr. Armas Bronchitis 11/09/2012 03/02/2013 Sinus infection 11/09/2012 03/02/2013 Diabetes mellitus 11/09/2012 11/14/2013 COPD (chronic obstructive pulmonary disease) 11/09/2012 documented as of this encounter (statuses as of 01/25/2023) [facility] History of Past illness Narrative* Problem Noted Date Resolved Date Chest pain 01/01/2019 04/27/2019 Last Assessment & Plan: Assessment: resolved now. Per patient similar to her other episodes of angina EKG x2 is normal Cycle troponin Stress test done in 12/2018 without evidence of ischemia Patient would like to go home later this evening if no further symptoms Obesity, Class III, BMI >= 40 06/26/2018 Last Assessment & Plan: Counseled on lifestyle modifications Well adult exam 12/05/2017 11/29/2019 Overview: last done: 11/29/2018 Shoulder pain 01/07/2014 11/29/2019 CHF (congestive heart failure) 08/15/2013 0 01/23/2016 Stress incontinence 11/21/2012 03/24/2020 Overview: Did see Dr. Armas Bronchitis 11/09/2012 03/02/2013 Sinus infection 11/09/2012 03/02/2013 Diabetes mellitus 11/09/2012 11/14/2013 COPD (chronic obstructive pulmonary disease) 11/09/2012 documented as of this encounter (statuses as of 01/26/2023) [facility] History of Past illness Narrative* Problem Noted Date Resolved Date Chest pain 01/01/2019 04/27/2019 Last Assessment & Plan: Assessment: resolved now. Per patient similar to her other episodes of angina EKG x2 is normal Cycle troponin Stress test done in 12/2018 without evidence of ischemia Patient would like to go home later this evening if no further symptoms Obesity, Class III, BMI >= 40 06/26/2018 Last Assessment & Plan: Counseled on lifestyle modifications Well adult exam 12/05/2017 11/29/2019 Overview: last done: 11/29/2018 Shoulder pain 01/07/2014 11/29/2019 CHF (congestive heart failure) 08/15/2013 0 01/23/2016 Stress incontinence 11/21/2012 03/24/2020 Overview: Did see Dr. Armas Bronchitis 11/09/2012 03/02/2013 Sinus infection 11/09/2012 03/02/2013 Diabetes mellitus 11/09/2012 11/14/2013 COPD (chronic obstructive pulmonary disease) 11/09/2012 documented as of this encounter (statuses as of 01/26/2023) [facility] History of Past illness Narrative* Problem Noted Date Resolved Date Chest pain 01/01/2019 04/27/2019 Last Assessment & Plan: Assessment: resolved now. Per patient similar to her other episodes of angina EKG x2 is normal Cycle troponin Stress test done in 12/2018 without evidence of ischemia Patient would like to go home later this evening if no further symptoms Obesity, Class III, BMI >= 40 06/26/2018 Last Assessment & Plan: Counseled on lifestyle modifications Well adult exam 12/05/2017 11/29/2019 Overview: last done: 11/29/2018 Shoulder pain 01/07/2014 11/29/2019 CHF (congestive heart failure) 08/15/2013 0 01/23/2016 Stress incontinence 11/21/2012 03/24/2020 Overview: Did see Dr. Armas Bronchitis 11/09/2012 03/02/2013 Sinus infection 11/09/2012 03/02/2013 Diabetes mellitus 11/09/2012 11/14/2013 COPD (chronic obstructive pulmonary disease) 11/09/2012 documented as of this encounter (statuses as of 01/28/2023) [facility] History of Past illness Narrative* Problem Noted Date Resolved Date Chest pain 01/01/2019 04/27/2019 Last Assessment & Plan: Assessment: resolved now. Per patient similar to her other episodes of angina EKG x2 is normal Cycle troponin Stress test done in 12/2018 without evidence of ischemia Patient would like to go home later this evening if no further symptoms Obesity, Class III, BMI >= 40 06/26/2018 Last Assessment & Plan: Counseled on lifestyle modifications Well adult exam 12/05/2017 11/29/2019 Overview: last done: 11/29/2018 Shoulder pain 01/07/2014 11/29/2019 CHF (congestive heart failure) 08/15/2013 0 01/23/2016 Stress incontinence 11/21/2012 03/24/2020 Overview: Did see Dr. Armas Bronchitis 11/09/2012 03/02/2013 Sinus infection 11/09/2012 03/02/2013 Diabetes mellitus 11/09/2012 11/14/2013 COPD (chronic obstructive pulmonary disease) 11/09/2012 documented as of this encounter (statuses as of 01/31/2023) [facility] History of Past illness Narrative* Problem Noted Date Resolved Date Chest pain 01/01/2019 04/27/2019 Last Assessment & Plan: Assessment: resolved now. Per patient similar to her other episodes of angina EKG x2 is normal Cycle troponin Stress test done in 12/2018 without evidence of ischemia Patient would like to go home later this evening if no further symptoms Obesity, Class III, BMI >= 40 06/26/2018 Last Assessment & Plan: Counseled on lifestyle modifications Well adult exam 12/05/2017 11/29/2019 Overview: last done: 11/29/2018 Shoulder pain 01/07/2014 11/29/2019 CHF (congestive heart failure) 08/15/2013 0 01/23/2016 Stress incontinence 11/21/2012 03/24/2020 Overview: Did see Dr. Armas Bronchitis 11/09/2012 03/02/2013 Sinus infection 11/09/2012 03/02/2013 Diabetes mellitus 11/09/2012 11/14/2013 COPD (chronic obstructive pulmonary disease) 11/09/2012 documented as of this encounter (statuses as of 02/03/2023) [facility] History of Past illness Narrative* Problem Noted Date Resolved Date Chest pain 01/01/2019 04/27/2019 Last Assessment & Plan: Assessment: resolved now. Per patient similar to her other episodes of angina EKG x2 is normal Cycle troponin Stress test done in 12/2018 without evidence of ischemia Patient would like to go home later this evening if no further symptoms Obesity, Class III, BMI >= 40 06/26/2018 Last Assessment & Plan: Counseled on lifestyle modifications Well adult exam 12/05/2017 11/29/2019 Overview: last done: 11/29/2018 Shoulder pain 01/07/2014 11/29/2019 CHF (congestive heart failure) 08/15/2013 0 01/23/2016 Stress incontinence 11/21/2012 03/24/2020 Overview: Did see Dr. Armas Bronchitis 11/09/2012 03/02/2013 Sinus infection 11/09/2012 03/02/2013 Diabetes mellitus 11/09/2012 11/14/2013 COPD (chronic obstructive pulmonary disease) 11/09/2012 documented as of this encounter (statuses as of 02/10/2023) [facility] History of Past illness Narrative* Problem Noted Date Resolved Date Chest pain 01/01/2019 04/27/2019 Last Assessment & Plan: Assessment: resolved now. Per patient similar to her other episodes of angina EKG x2 is normal Cycle troponin Stress test done in 12/2018 without evidence of ischemia Patient would like to go home later this evening if no further symptoms Obesity, Class III, BMI >= 40 06/26/2018 Last Assessment & Plan: Counseled on lifestyle modifications Well adult exam 12/05/2017 11/29/2019 Overview: last done: 11/29/2018 Shoulder pain 01/07/2014 11/29/2019 CHF (congestive heart failure) 08/15/2013 0 01/23/2016 Stress incontinence 11/21/2012 03/24/2020 Overview: Did see Dr. Armas Bronchitis 11/09/2012 03/02/2013 Sinus infection 11/09/2012 03/02/2013 Diabetes mellitus 11/09/2012 11/14/2013 COPD (chronic obstructive pulmonary disease) 11/09/2012 documented as of this encounter (statuses as of 02/10/2023) [facility] History of Past illness Narrative* Problem Noted Date Resolved Date Chest pain 01/01/2019 04/27/2019 Last Assessment & Plan: Assessment: resolved now. Per patient similar to her other episodes of angina EKG x2 is normal Cycle troponin Stress test done in 12/2018 without evidence of ischemia Patient would like to go home later this evening if no further symptoms Obesity, Class III, BMI >= 40 06/26/2018 Last Assessment & Plan: Counseled on lifestyle modifications Well adult exam 12/05/2017 11/29/2019 Overview: last done: 11/29/2018 Shoulder pain 01/07/2014 11/29/2019 CHF (congestive heart failure) 08/15/2013 0 01/23/2016 Stress incontinence 11/21/2012 03/24/2020 Overview: Did see Dr. Armas Bronchitis 11/09/2012 03/02/2013 Sinus infection 11/09/2012 03/02/2013 Diabetes mellitus 11/09/2012 11/14/2013 COPD (chronic obstructive pulmonary disease) 11/09/2012 documented as of this encounter (statuses as of 02/11/2023) [facility] History of Past illness Narrative* Problem Noted Date Resolved Date Chest pain 01/01/2019 04/27/2019 Last Assessment & Plan: Assessment: resolved now. Per patient similar to her other episodes of angina EKG x2 is normal Cycle troponin Stress test done in 12/2018 without evidence of ischemia Patient would like to go home later this evening if no further symptoms Obesity, Class III, BMI >= 40 06/26/2018 Last Assessment & Plan: Counseled on lifestyle modifications Well adult exam 12/05/2017 11/29/2019 Overview: last done: 11/29/2018 Shoulder pain 01/07/2014 11/29/2019 CHF (congestive heart failure) 08/15/2013 0 01/23/2016 Stress incontinence 11/21/2012 03/24/2020 Overview: Did see Dr. Armas Bronchitis 11/09/2012 03/02/2013 Sinus infection 11/09/2012 03/02/2013 Diabetes mellitus 11/09/2012 11/14/2013 COPD (chronic obstructive pulmonary disease) 11/09/2012 documented as of this encounter (statuses as of 02/14/2023) [facility] History of Past illness Narrative* Problem Noted Date Resolved Date Chest pain 01/01/2019 04/27/2019 Last Assessment & Plan: Assessment: resolved now. Per patient similar to her other episodes of angina EKG x2 is normal Cycle troponin Stress test done in 12/2018 without evidence of ischemia Patient would like to go home later this evening if no further symptoms Obesity, Class III, BMI >= 40 06/26/2018 Last Assessment & Plan: Counseled on lifestyle modifications Well adult exam 12/05/2017 11/29/2019 Overview: last done: 11/29/2018 Shoulder pain 01/07/2014 11/29/2019 CHF (congestive heart failure) 08/15/2013 0 01/23/2016 Stress incontinence 11/21/2012 03/24/2020 Overview: Did see Dr. Armas Bronchitis 11/09/2012 03/02/2013 Sinus infection 11/09/2012 03/02/2013 Diabetes mellitus 11/09/2012 11/14/2013 COPD (chronic obstructive pulmonary disease) 11/09/2012 documented as of this encounter (statuses as of 02/14/2023) [facility] History of Past illness Narrative* Problem Noted Date Resolved Date Chest pain 01/01/2019 04/27/2019 Last Assessment & Plan: Assessment: resolved now. Per patient similar to her other episodes of angina EKG x2 is normal Cycle troponin Stress test done in 12/2018 without evidence of ischemia Patient would like to go home later this evening if no further symptoms Obesity, Class III, BMI >= 40 06/26/2018 Last Assessment & Plan: Counseled on lifestyle modifications Well adult exam 12/05/2017 11/29/2019 Overview: last done: 11/29/2018 Shoulder pain 01/07/2014 11/29/2019 CHF (congestive heart failure) 08/15/2013 0 01/23/2016 Stress incontinence 11/21/2012 03/24/2020 Overview: Did see Dr. Armas Bronchitis 11/09/2012 03/02/2013 Sinus infection 11/09/2012 03/02/2013 Diabetes mellitus 11/09/2012 11/14/2013 COPD (chronic obstructive pulmonary disease) 11/09/2012 documented as of this encounter (statuses as of 02/18/2023) [facility] History of Past illness Narrative* Problem Noted Date Resolved Date Chest pain 01/01/2019 04/27/2019 Last Assessment & Plan: Assessment: resolved now. Per patient similar to her other episodes of angina EKG x2 is normal Cycle troponin Stress test done in 12/2018 without evidence of ischemia Patient would like to go home later this evening if no further symptoms Obesity, Class III, BMI >= 40 06/26/2018 Last Assessment & Plan: Counseled on lifestyle modifications Well adult exam 12/05/2017 11/29/2019 Overview: last done: 11/29/2018 Shoulder pain 01/07/2014 11/29/2019 CHF (congestive heart failure) 08/15/2013 0 01/23/2016 Stress incontinence 11/21/2012 03/24/2020 Overview: Did see Dr. Armas Bronchitis 11/09/2012 03/02/2013 Sinus infection 11/09/2012 03/02/2013 Diabetes mellitus 11/09/2012 11/14/2013 COPD (chronic obstructive pulmonary disease) 11/09/2012 documented as of this encounter (statuses as of 03/07/2023) [facility] History of Past illness Narrative* Problem Noted Date Resolved Date Chest pain 01/01/2019 04/27/2019 Last Assessment & Plan: Assessment: resolved now. Per patient similar to her other episodes of angina EKG x2 is normal Cycle troponin Stress test done in 12/2018 without evidence of ischemia Patient would like to go home later this evening if no further symptoms Obesity, Class III, BMI >= 40 06/26/2018 Last Assessment & Plan: Counseled on lifestyle modifications Well adult exam 12/05/2017 11/29/2019 Overview: last done: 11/29/2018 Shoulder pain 01/07/2014 11/29/2019 CHF (congestive heart failure) 08/15/2013 0 01/23/2016 Stress incontinence 11/21/2012 03/24/2020 Overview: Did see Dr. Armas Bronchitis 11/09/2012 03/02/2013 Sinus infection 11/09/2012 03/02/2013 Diabetes mellitus 11/09/2012 11/14/2013 COPD (chronic obstructive pulmonary disease) 11/09/2012 documented as of this encounter (statuses as of 03/09/2023) [facility] History of Past illness Narrative* Problem Noted Date Resolved Date Chest pain 01/01/2019 04/27/2019 Last Assessment & Plan: Assessment: resolved now. Per patient similar to her other episodes of angina EKG x2 is normal Cycle troponin Stress test done in 12/2018 without evidence of ischemia Patient would like to go home later this evening if no further symptoms Obesity, Class III, BMI >= 40 06/26/2018 Last Assessment & Plan: Counseled on lifestyle modifications Well adult exam 12/05/2017 11/29/2019 Overview: last done: 11/29/2018 Shoulder pain 01/07/2014 11/29/2019 CHF (congestive heart failure) 08/15/2013 0 01/23/2016 Stress incontinence 11/21/2012 03/24/2020 Overview: Did see Dr. Armas Bronchitis 11/09/2012 03/02/2013 Sinus infection 11/09/2012 03/02/2013 Diabetes mellitus 11/09/2012 11/14/2013 COPD (chronic obstructive pulmonary disease) 11/09/2012 documented as of this encounter (statuses as of 03/09/2023) [facility] History of Past illness Narrative* Problem Noted Date Resolved Date Chest pain 01/01/2019 04/27/2019 Last Assessment & Plan: Assessment: resolved now. Per patient similar to her other episodes of angina EKG x2 is normal Cycle troponin Stress test done in 12/2018 without evidence of ischemia Patient would like to go home later this evening if no further symptoms Obesity, Class III, BMI >= 40 06/26/2018 Last Assessment & Plan: Counseled on lifestyle modifications Well adult exam 12/05/2017 11/29/2019 Overview: last done: 11/29/2018 Shoulder pain 01/07/2014 11/29/2019 CHF (congestive heart failure) 08/15/2013 0 01/23/2016 Stress incontinence 11/21/2012 03/24/2020 Overview: Did see Dr. Armas Bronchitis 11/09/2012 03/02/2013 Sinus infection 11/09/2012 03/02/2013 Diabetes mellitus 11/09/2012 11/14/2013 COPD (chronic obstructive pulmonary disease) 11/09/2012 documented as of this encounter (statuses as of 03/12/2023) [facility] History of Past illness Narrative* Problem Noted Date Resolved Date Chest pain 01/01/2019 04/27/2019 Last Assessment & Plan: Assessment: resolved now. Per patient similar to her other episodes of angina EKG x2 is normal Cycle troponin Stress test done in 12/2018 without evidence of ischemia Patient would like to go home later this evening if no further symptoms Obesity, Class III, BMI >= 40 06/26/2018 Last Assessment & Plan: Counseled on lifestyle modifications Well adult exam 12/05/2017 11/29/2019 Overview: last done: 11/29/2018 Shoulder pain 01/07/2014 11/29/2019 CHF (congestive heart failure) 08/15/2013 0 01/23/2016 Stress incontinence 11/21/2012 03/24/2020 Overview: Did see Dr. Armas Bronchitis 11/09/2012 03/02/2013 Sinus infection 11/09/2012 03/02/2013 Diabetes mellitus 11/09/2012 11/14/2013 COPD (chronic obstructive pulmonary disease) 11/09/2012 documented as of this encounter (statuses as of 03/17/2023) [facility] History of Past illness Narrative* Problem Noted Date Resolved Date Chest pain 01/01/2019 04/27/2019 Last Assessment & Plan: Assessment: resolved now. Per patient similar to her other episodes of angina EKG x2 is normal Cycle troponin Stress test done in 12/2018 without evidence of ischemia Patient would like to go home later this evening if no further symptoms Obesity, Class III, BMI >= 40 06/26/2018 Last Assessment & Plan: Counseled on lifestyle modifications Well adult exam 12/05/2017 11/29/2019 Overview: last done: 11/29/2018 Shoulder pain 01/07/2014 11/29/2019 CHF (congestive heart failure) 08/15/2013 0 01/23/2016 Stress incontinence 11/21/2012 03/24/2020 Overview: Did see Dr. Armas Bronchitis 11/09/2012 03/02/2013 Sinus infection 11/09/2012 03/02/2013 Diabetes mellitus 11/09/2012 11/14/2013 COPD (chronic obstructive pulmonary disease) 11/09/2012 documented as of this encounter (statuses as of 04/04/2023) [facility] History of Past illness Narrative* Problem Noted Date Resolved Date Chest pain 01/01/2019 04/27/2019 Last Assessment & Plan: Assessment: resolved now. Per patient similar to her other episodes of angina EKG x2 is normal Cycle troponin Stress test done in 12/2018 without evidence of ischemia Patient would like to go home later this evening if no further symptoms Obesity, Class III, BMI >= 40 06/26/2018 Last Assessment & Plan: Counseled on lifestyle modifications Well adult exam 12/05/2017 11/29/2019 Overview: last done: 11/29/2018 Shoulder pain 01/07/2014 11/29/2019 CHF (congestive heart failure) 08/15/2013 0 01/23/2016 Stress incontinence 11/21/2012 03/24/2020 Overview: Did see Dr. Armas Bronchitis 11/09/2012 03/02/2013 Sinus infection 11/09/2012 03/02/2013 Diabetes mellitus 11/09/2012 11/14/2013 COPD (chronic obstructive pulmonary disease) 11/09/2012 documented as of this encounter (statuses as of 04/11/2023) [facility] History of Past illness Narrative* Problem Noted Date Diagnosed Date Resolved Date Chest pain 01/01/2019 04/27/2019 Last Assessment & Plan: Assessment: resolved now. Per patient similar to her other episodes of angina EKG x2 is normal Cycle troponin Stress test done in 12/2018 without evidence of ischemia Patient would like to go home later this evening if no further symptoms Obesity, Class III, BMI >= 40 06/26/2018 11/29/2019 Last Assessment & Plan: Counseled on lifestyle modifications Well adult exam 12/05/2017 11/29/2019 Overview: last done: 11/29/2018 Shoulder pain 01/07/2014 11/29/2019 CHF (congestive heart failure) 08/15/2013 01/23/2016 Stress incontinence 11/21/2012 03/24/20 20 Overview: Did see Dr. Armas Bronchitis 11/09/2012 03/02/2013 Sinus infection 11/09/2012 03/02/2013 Diabetes mellitus 11/09/2012 11/14/2013 COPD (chronic obstructive pulmonary disease) 2 11/09/2012 documented as of this encounter (statuses as of 06/21/2023) [facility] note* Diagnosis Chronic pain of both knees Neuropathic pain Neuralgia, neuritis, and radiculitis, unspecified Chronic pain syndrome Lumbar spondylosis Lumbosacral spondylosis without myelopathy DDD (degenerative disc disease), cervical Degeneration of cervical intervertebral disc Arthritis, multiple joint involvement Unspecified arthropathy, multiple sites [facility] Diagnosis Microscopic hematuria- Primary [facility] [facility]* Diagnosis 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)- Primary Type II or unspecified type diabetes mellitus without mention of complication, not stated as uncontrolled Recurrent major depressive disorder, in full remission (HCC) MCI (mild cognitive impairment) Mild cognitive impairment, so stated [facility] Diagnosis COPD with chronic bronchitis (HCC) Obstructive chronic bronchitis without exacerbation SOB (shortness of breath) Shortness of breath CHURCH (dyspnea on exertion) Other dyspnea and respiratory abnormality [facility] Diagnosis Chronic pain syndrome- Primary Recurrent major depressive disorder, in full remission (HCC) Essential hypertension Unspecified essential hypertension Mixed hyperlipidemia Type 2 diabetes mellitus with stage 3 chronic kidney disease, without long-term current use of insulin, unspecified whether stage 3a or 3b CKD (HCC) Chronic diastolic heart failure (HCC), mild. Chronic diastolic heart failure TACO (obstructive sleep apnea) Obstructive sleep apnea (adult) (pediatric) Obesity, Class III, BMI 40-49.9 (morbid obesity) (HCC) Morbid obesity Urge incontinence [facility]* Diagnosis Type 2 diabetes mellitus with stage 3 chronic kidney disease, without long-term current use of insulin, unspecified whether stage 3a or 3b CKD (HCC)- Primary 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) Type II or unspecified type diabetes mellitus without mention of complication, not stated as uncontrolled Diabetic eye exam (HCC) Type II or unspecified type diabetes mellitus without mention of complication, not stated as uncontrolled Essential hypertension Unspecified essential hypertension Mixed hyperlipidemia Anxiety and depression Dysthymic disorder Recurrent major depressive disorder, in full remission (HCC) Chronic diastolic heart failure (HCC), mild. Chronic diastolic heart failure Pulmonary hypertension (HCC) Other chronic pulmonary heart diseases Bilateral leg edema Edema GERD without esophagitis Esophageal reflux COPD with chronic bronchitis (HCC) Obstructive chronic bronchitis without exacerbation Stage 3 chronic kidney disease, unspecified whether stage 3a or 3b CKD ([facility]) Obesity, Class III, BMI 40-49.9 (morbid obesity) (HCC) Morbid obesity TACO (obstructive sleep apnea) Obstructive sleep apnea (adult) (pediatric) Primary insomnia Persistent disorder of initiating or maintaining sleep Bilateral primary osteoarthritis of knee Microscopic hematuria [facility] Diagnosis Chronic pain of both knees Neuropathic pain Neuralgia, neuritis, and radiculitis, unspecified Chronic pain syndrome Lumbar spondylosis Lumbosacral spondylosis without myelopathy DDD (degenerative disc disease), cervical Degeneration of cervical intervertebral disc Arthritis, multiple joint involvement Unspecified arthropathy, multiple sites [facility] Diagnosis Hypertensive heart disease with congestive heart failure, unspecified heart failure type ([facility])- Primary Chronic diastolic heart failure ([facility]) Chronic diastolic heart failure Type 2 diabetes mellitus with diabetic chronic kidney disease, unspecified CKD stage, unspecified whether chief radiation therapist insulin use ([facility]) Stage 3 chronic kidney disease, unspecified whether stage 3a or 3b CKD ([facility]) Major depressive disorder, recurrent episode, in full remission ([facility]) Major depressive disorder, recurrent episode, in full remission Mild cognitive impairment, so stated Mixed hyperlipidemia Cervical spondylosis with myelopathy Other spondylosis with radiculopathy, lumbar region Obstructive chronic bronchitis without exacerbation (HCC) Obstructive chronic bronchitis without exacerbation Obstructive sleep apnea (adult) (pediatric) [facility] Diagnosis Chronic pain of both knees Neuropathic pain Neuralgia, neuritis, and radiculitis, unspecified Chronic pain syndrome Lumbar spondylosis Lumbosacral spondylosis without myelopathy DDD (degenerative disc disease), cervical Degeneration of cervical intervertebral disc Arthritis, multiple joint involvement Unspecified arthropathy, multiple sites [facility] Diagnosis Chronic pain of both knees Neuropathic pain Neuralgia, neuritis, and radiculitis, unspecified Chronic pain syndrome Lumbar spondylosis Lumbosacral spondylosis without myelopathy DDD (degenerative disc disease), cervical Degeneration of cervical intervertebral disc Arthritis, multiple joint involvement Unspecified arthropathy, multiple sites [facility] Diagnosis Chronic pain of both knees Neuropathic pain Neuralgia, neuritis, and radiculitis, unspecified Chronic pain syndrome Lumbar spondylosis Lumbosacral spondylosis without myelopathy DDD (degenerative disc disease), cervical Degeneration of cervical intervertebral disc Arthritis, multiple joint involvement Unspecified arthropathy, multiple sites [facility] Diagnosis Essential hypertension- Primary Unspecified essential hypertension COPD with chronic bronchitis (HCC) Obstructive chronic bronchitis without exacerbation Chronic pain syndrome Bilateral leg edema Edema Chronic diastolic heart failure (HCC), mild. Chronic diastolic heart failure Arthritis, multiple joint involvement Unspecified arthropathy, multiple sites Chronic pain of both knees DDD (degenerative disc disease), cervical Degeneration of cervical intervertebral disc DDD (degenerative disc disease), lumbar Degeneration of lumbar or lumbosacral intervertebral disc Mechanical back pain Backache, unspecified Frequent falls Personal history of fall [facility] Diagnosis Chronic pain of both knees Neuropathic pain Neuralgia, neuritis, and radiculitis, unspecified Chronic pain syndrome Lumbar spondylosis Lumbosacral spondylosis without myelopathy DDD (degenerative disc disease), cervical Degeneration of cervical intervertebral disc Arthritis, multiple joint involvement Unspecified arthropathy, multiple sites [facility]* Diagnosis Chronic pain of both knees Neuropathic pain Neuralgia, neuritis, and radiculitis, unspecified Chronic pain syndrome Lumbar spondylosis Lumbosacral spondylosis without myelopathy DDD (degenerative disc disease), cervical Degeneration of cervical intervertebral disc Arthritis, multiple joint involvement Unspecified arthropathy, multiple sites [facility]* Diagnosis Chronic pain of both knees Neuropathic pain Neuralgia, neuritis, and radiculitis, unspecified Chronic pain syndrome Lumbar spondylosis Lumbosacral spondylosis without myelopathy DDD (degenerative disc disease), cervical Degeneration of cervical intervertebral disc Arthritis, multiple joint involvement Unspecified arthropathy, multiple sites [facility]* Diagnosis Nightmares- Primary Other dysfunctions of sleep stages or arousal from sleep Dysuria Dementia with mood disturbance, unspecified dementia severity, unspecified dementia type [facility]* Diagnosis Colovesical fistula- Primary Intestinovesical fistula Vulvar irritation Other specified noninflammatory disorder of vulva and perineum Mixed incontinence Mixed incontinence urge and stress (male)(female) Morbid obesity (HCC) Morbid obesity Dementia, unspecified dementia severity, unspecified dementia type, unspecified whether behavioral, psychotic, or mood disturbance or anxiety (HCC) documented in this encounter [facility] note* Diagnosis Chronic pain of both knees Neuropathic pain Neuralgia, neuritis, and radiculitis, unspecified Chronic pain syndrome Lumbar spondylosis Lumbosacral spondylosis without myelopathy DDD (degenerative disc disease), cervical Degeneration of cervical intervertebral disc Arthritis, multiple joint involvement Unspecified arthropathy, multiple sites [facility] Diagnosis Colovesical fistula Intestinovesical fistula Morbid obesity (HCC) Morbid obesity Poorly controlled diabetes mellitus (HCC) Type II or unspecified type diabetes mellitus without mention of complication, not stated as uncontrolled documented in this encounter [facility] note* Diagnosis Colovesical fistula- Primary Intestinovesical fistula documented in this encounter [facility] note* Diagnosis Colovesical fistula- Primary Intestinovesical fistula documented in this encounter [facility] note* Diagnosis Colovesical fistula- Primary Intestinovesical fistula documented in this encounter [facility] note* Diagnosis Medication management- Primary Encounter for long-term (current) use of other medications documented in this encounter [facility] note* Diagnosis Colovesical fistula- Primary Intestinovesical fistula Screening for ischemic heart disease- Primary documented in this encounter [facility] note* Diagnosis Chronic pain of both knees Neuropathic pain Neuralgia, neuritis, and radiculitis, unspecified Chronic pain syndrome Lumbar spondylosis Lumbosacral spondylosis without myelopathy DDD (degenerative disc disease), cervical Degeneration of cervical intervertebral disc Arthritis, multiple joint involvement Unspecified arthropathy, multiple sites documented in this encounter [facility] note* Diagnosis APPOINTMENT CANCELLED- Primary documented in this encounter [facility] note* Diagnosis Memory loss- Primary Mild episode of recurrent major depressive disorder (HCC) Nightmares Other dysfunctions of sleep stages or arousal from sleep 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 Diagnosis Colovaginal fistula- Primary Diverticulitis Diverticulitis of colon (without mention of hemorrhage) Abnormal CT scan Other nonspecific (abnormal) findings on radiological and other examinations of body structure Dementia, unspecified dementia severity, unspecified dementia type, unspecified whether behavioral, psychotic, or mood disturbance or anxiety (HCC) Morbid obesity (HCC) Morbid obesity 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 [facility] note* Diagnosis Memory loss 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 [facility] note* Diagnosis Colovaginal fistula Diabetes mellitus, type [address]) Type II or unspecified type diabetes mellitus without mention of complication, not stated as uncontrolled CHF (congestive heart failure) ([facility]) ([facility]) Congestive heart failure, unspecified documented in this encounter [facility] note* Diagnosis Moderate late onset Alzheimer's dementia without behavioral disturbance, psychotic disturbance, mood disturbance, or anxiety ([facility])- Primary Insomnia, unspecified type Apathetic behavior due to dementia ([facility]) Mild episode of recurrent major depressive disorder ([facility]) documented in this encounter [facility] note* Diagnosis Colovaginal fistula- Primary Colovesical fistula Intestinovesical fistula History of diverticulitis documented in this encounter [facility] note* Diagnosis Insomnia, unspecified type documented in this encounter [facility] note* Diagnosis Chronic pain of both knees Neuropathic pain Neuralgia, neuritis, and radiculitis, unspecified Chronic pain syndrome Lumbar spondylosis Lumbosacral spondylosis without myelopathy DDD (degenerative disc disease), cervical Degeneration of cervical intervertebral disc Arthritis, multiple joint involvement Unspecified arthropathy, multiple sites Dysuria Medication management Encounter for long-term (current) use of other medications Neck mass Swelling, mass, or lump in head and neck documented [facility]* Diagnosis Other amnesia- Primary documented in this encounter [facility] note* Diagnosis Dysuria documented in this encounter [facility] note* Diagnosis Anemia, unspecified type- Primary Hyponatremia Hyposmolality and/or hyponatremia documented in this encounter [facility] note* Diagnosis Dysuria Chronic pain of both knees Neuropathic pain Neuralgia, neuritis, and radiculitis, unspecified Chronic pain syndrome Lumbar spondylosis Lumbosacral spondylosis without myelopathy DDD (degenerative disc disease), cervical Degeneration of cervical intervertebral disc Arthritis, multiple joint involvement Unspecified arthropathy, multiple sites documented in this encounter [facility] Discharge instructions* Attachments The following attachments cannot be sent through Care Everywhere. * Colon Polypectomy Discharge Instructions (Kyrgyz) [facility] Outpatient Procedure (Routine) - Authorized Specialty Diagnoses / Procedures Referred By Contac t Referred To Contact [facility] Diagnoses COPD with chronic bronchitis (HCC) SOB (shortness of breath) CHURCH (dyspnea on exertion) Procedures SPIROMETRY - BASELINE AND POST DILATOR BRNCDILAT RSPSE SPMTRY PRE&POST-BRNCDILAT ADMN Stephani Crooks PA-C [address] [place] [address] [facility] [place] [address] [place] [id number] Referral ID Status Reason Start Date Expiration Date Visits Requested Visits Authorized [id number] Authorized Auto-Generat ed Referral 05/07/2022 11/06/2022 1 1 * Outpatient Procedure (Routine) - Authorized Specialty Diagnoses / Procedures Referred By Contac t Referred To Contact [facility] Diagnoses Chronic diastolic heart failure (HCC) SOB (shortness of breath) CHURCH (dyspnea on exertion) Procedures ECHO ECHO TTHRC R-T 2D W/WOM-MODE COMPL SPEC&COLR D Stephani Crooks PA-C [address] [place] [address] [facility] [address] [address] Referral ID Status Reason Start Date Expiration Date Visits Requested Visits Authorized [id number] Authorized Auto-Generat ed Referral 05/07/2022 11/06/2022 1 1 [facility] for referral (narrative)* Outpatient Procedure (Routine) - Pending Review Specialty Diagnoses / Procedures Referred By Contac t Referred To Contact [facility] Diagnoses Colovesical fistula Procedures COLONOSCOPY DIAGNOSTIC COLONOSCOPY FLX DX W/COLLJ SPEC WHEN PFLeonel Larsen MD [address] [address] [facility] [place] [address] [place] [address] Referral ID Status Reason Start Date Expiration Date Visits Requested Visits Authorized [id number] Pending Review Auto-Generat ed Referral 02/18/2023 02/19/2024 1 1 [facility] Summary Purpose Family History No Family History Records FoundNo Family History Records FoundNo Family History Records FoundNo Family History Records FoundNo Family History Records FoundNo Family History Records FoundNo Family History Records Found Advance Directives Documents on File Type Date Recorded Patient Detacher Expl anation Advance Directive(s) 07/21/2020 9:36 AM Advance Directive(s) 06/09/2020 10:12 AM Advance Directive(s) 04/27/2019 10:00 AM Advance Directive(s) 04/09/2019 2:08 PM Advance Directive(s) 02/13/2019 10:21 AM Advance Directive(s) 01/12/2019 11:49 AM Advance Directive(s) 03/27/2018 12:02 PM Advance Directive(s) 01/06/2017 9:58 AM Advance Directive(s) 01/28/2016 11:55 AM Advance Directive(s) 01/20/2016 11:01 AM Latest Code Status on File Code Status Date Activated Date Inactivated Comments Full Code 01/12/2019 4:18 PM 01/13/2019 2:34 PM Full Code Order Discussed With: Patient Documents on File Type Date Recorded Patient Detacher Expl anation Advance Directive(s) 07/21/2020 9:36 AM Advance Directive(s) 06/09/2020 10:12 AM Advance Directive(s) 04/27/2019 10:00 AM Advance Directive(s) 04/09/2019 2:08 PM Advance Directive(s) 02/13/2019 10:21 AM Advance Directive(s) 01/12/2019 11:49 AM Advance Directive(s) 03/27/2018 12:02 PM Advance Directive(s) 01/06/2017 9:58 AM Advance Directive(s) 01/28/2016 11:55 AM Advance Directive(s) 01/20/2016 11:01 AM Latest Code Status on File Code Status Date Activated Date Inactivated Comments Full Code 01/12/2019 4:18 PM 01/13/2019 2:34 PM Documents on File Type Date Recorded Patient Detacher Expl anation Advance Directives and Livin g Will 05/04/2023 1:18 PM Latest Code Status on File Code Status Date Activated Date Inactivated Comments Full Code 05/25/2023 8:10 AM 05/25/2023 2:17 PM Documents on File Type Date Recorded Patient Detacher Expl anation Advance Directives and Livin g Will 05/04/2023 1:18 PM Latest Code Status on File Code Status Date Activated Date Inactivated Comments Full Code 05/25/2023 8:10 AM 05/25/2023 2:17 PM Latest Code Status on File Code Status Date Activated Date Inactivated Comments Full Code 01/12/2019 4:18 PM 01/13/2019 2:34 PM Question Answer Comments Full Code Order Discussed With: Patient Reason for Referral Specialty Diagnoses / Procedures Referred By Contac t Referred To Contact Gerontology Diagnoses Dysuria Nightmares Procedures CONSULT TO GERIATRICS OFFICE/OUTPATIENT [facility] 60-74 MINUTES Stephani Crooks PA-C [address] [place] [address] Referral ID Status Reason Start Date Expiration Date Visits Requested Visits Authorized [id number] Pending Review PCP Requested Referral 12/23/2022 12/23/2023 1 1 Specialty Diagnoses / Procedures Referred By Contac t Referred To Contact Colon and Rectal Surgery Diagnoses Colovesical fistula Procedures CONSULT TO COLO-RECTAL SURGERY OFFICE/OUTPATIENT [facility] 60-74 MINUTES Eufemia Chapa APRN.MOBILE HOMES REPAIRER [address] [place] [address] Referral ID Status Reason Start Date Expiration Date Visits Requested Visits Authorized [id number] Pending Review PCP Requested Referral 01/06/2023 01/06/2024 1 1 Specialty Diagnoses / Procedures Referred By Contac t Referred To Contact Stephani Crooks PA-C [address] [place] [address] Referral ID Status Reason Start Date Expiration Date Visits Re quested Visits Authorized [id number] Closed 1 1 Specialty Diagnoses / Procedures Referred By Contac t Referred To Contact Colon and Rectal Surgery Diagnoses Colovesical fistula Procedures CONSULT TO COLO-RECTAL SURGERY OFFICE/OUTPATIENT [facility] MDM 60-74 MINUTES Leesa Ramirez MD [address] [place] [address] Referral ID Status Reason Start Date Expiration Date Visits Requested Visits Authorized [id number] Pending Review PCP Requested Referral 01/25/2023 01/25/2024 1 1 Specialty Diagnoses / Procedures Referred By Lovely t Referred To Contact Radiology Diagnoses Memory loss Procedures CT head wo IV contrast Shantal Serrano, PREPRESS SPECIALIST - MOBILE HOMES REPAIRER [address] [place] [address] Referral ID Status Reason Start Date Expiration Date V isits Requested Visits Authorized [id number] Authorized 04/05/2023 10/02/2023 1 1 Referral ID Status Reason Start Date Expiration Date Visits Re quested Visits Authorized [id number] Closed 04/05/2023 10/02/2023 1 1 Additional Source Comments INFORMATION SOURCE (unrecogn ized section and content) DATE CREATED AUTHOR AUTHOR'S ORGANIZ ATION 04/13/2019 [facility] DATE CREATED AUTHOR AUTHOR'S ORGANIZ ATION 07/22/2021 [facility] DATE CREATED AUTHOR AUTHOR'S ORGANIZ ATION 01/06/2023 [facility] ([facility]) DATE CREATED AUTHOR AUTHOR'S ORGANIZ ATION 02/05/2023 [facility] DATE CREATED AUTHOR AUTHOR'S ORGANIZ ATION 09/02/2023 [facility] DATE CREATED AUTHOR AUTHOR'S ORGANIZ ATION 09/21/2023 [facility] Source Comments (unrecognize d section and content) In the event this informatio n is protected by the Federal Confidentiality of Alcohol and Drug Abuse Patient Records regulations: The Federal rules restrict any use of the information to criminally investigate or prosecute any alcohol or drug abuse patient.[facility] the event this information is protected by the Federal Confidentiality of Alcohol and Drug Abuse Patient Records regulations: The Federal rules restrict any use of the information to criminally investigate or prosecute any alcohol or drug abuse patient.[facility] Hospital[facility] the event this information is protected by the Federal Confidentiality of Alcohol and Drug Abuse Patient Records regulations: The Federal rules restrict any use of the information to criminally investigate or prosecute any alcohol or drug abuse patient.[facility] Hospital[facility] the event this information is protected by the Federal Confidentiality of Alcohol and Drug Abuse Patient Records regulations: The Federal rules restrict any use of the information to criminally investigate or prosecute any alcohol or drug abuse patient.[facility] Hospital[facility] the event this information is protected by the Federal Confidentiality of Alcohol and Drug Abuse Patient Records regulations: The Federal rules restrict any use of the information to criminally investigate or prosecute any alcohol or drug abuse patient.[facility] the event this information is protected by the Federal Confidentiality of Alcohol and Drug Abuse Patient Records regulations: The Federal rules restrict any use of the information to criminally investigate or prosecute any alcohol or drug abuse patient.[facility] Hospital[facility] the event this information is protected by the Federal Confidentiality of Alcohol and Drug Abuse Patient Records regulations: The Federal rules restrict any use of the information to criminally investigate or prosecute any alcohol or drug abuse patient.[facility] Hospital[facility] the event this information is protected by the Federal Confidentiality of Alcohol and Drug Abuse Patient Records regulations: The Federal rules restrict any use of the information to criminally investigate or prosecute any alcohol or drug abuse patient.[facility] Hospital[facility] the event this information is protected by the Federal Confidentiality of Alcohol and Drug Abuse Patient Records regulations: The Federal rules restrict any use of the information to criminally investigate or prosecute any alcohol or drug abuse patient.[facility] Hospital[facility] the event this information is protected by the Federal Confidentiality of Alcohol and Drug Abuse Patient Records regulations: The Federal rules restrict any use of the information to criminally investigate or prosecute any alcohol or drug abuse patient.[facility] Hospital[facility] the event this information is protected by the Federal Confidentiality of Alcohol and Drug Abuse Patient Records regulations: The Federal rules restrict any use of the information to criminally investigate or prosecute any alcohol or drug abuse patient.[facility] Hospital[facility] the event this information is protected by the Federal Confidentiality of Alcohol and Drug Abuse Patient Records regulations: The Federal rules restrict any use of the information to criminally investigate or prosecute any alcohol or drug abuse patient.[facility] HospitalIn the event this information is protected by the Federal Confidentiality of Alcohol and Drug Abuse Patient Records regulations: The Federal rules restrict any use of the information to criminally investigate or prosecute any alcohol or drug abuse patient.[facility] HospitalIn the event this information is protected by the Federal Confidentiality of Alcohol and Drug Abuse Patient Records regulations: The Federal rules restrict any use of the information to criminally investigate or prosecute any alcohol or drug abuse patient.[facility] HospitalIn the event this information is protected by the Federal Confidentiality of Alcohol and Drug Abuse Patient Records regulations: The Federal rules restrict any use of the information to criminally investigate or prosecute any alcohol or drug abuse patient.[facility] HospitalIn the event this information is protected by the Federal Confidentiality of Alcohol and Drug Abuse Patient Records regulations: The Federal rules restrict any use of the information to criminally investigate or prosecute any alcohol or drug abuse patient.[facility] HospitalIn the event this information is protected by the Federal Confidentiality of Alcohol and Drug Abuse Patient Records regulations: The Federal rules restrict any use of the information to criminally investigate or prosecute any alcohol or drug abuse patient.[facility] HospitalIn the event this information is protected by the Federal Confidentiality of Alcohol and Drug Abuse Patient Records regulations: The Federal rules restrict any use of the information to criminally investigate or prosecute any alcohol or drug abuse patient.[facility] HospitalIn the event this information is protected by the Federal Confidentiality of Alcohol and Drug Abuse Patient Records regulations: The Federal rules restrict any use of the information to criminally investigate or prosecute any alcohol or drug abuse patient.[facility] HospitalIn the event this information is protected by the Federal Confidentiality of Alcohol and Drug Abuse Patient Records regulations: The Federal rules restrict any use of the information to criminally investigate or prosecute any alcohol or drug abuse patient.[facility] HospitalIn the event this information is protected by the Federal Confidentiality of Alcohol and Drug Abuse Patient Records regulations: The Federal rules restrict any use of the information to criminally investigate or prosecute any alcohol or drug abuse patient.[facility] HospitalIn the event this information is protected by the Federal Confidentiality of Alcohol and Drug Abuse Patient Records regulations: The Federal rules restrict any use of the information to criminally investigate or prosecute any alcohol or drug abuse patient.[facility] HospitalIn the event this information is protected by the Federal Confidentiality of Alcohol and Drug Abuse Patient Records regulations: The Federal rules restrict any use of the information to criminally investigate or prosecute any alcohol or drug abuse patient.[facility] HospitalIn the event this information is protected by the Federal Confidentiality of Alcohol and Drug Abuse Patient Records regulations: The Federal rules restrict any use of the information to criminally investigate or prosecute any alcohol or drug abuse patient.[facility] HospitalIn the event this information is protected by the Federal Confidentiality of Alcohol and Drug Abuse Patient Records regulations: The Federal rules restrict any use of the information to criminally investigate or prosecute any alcohol or drug abuse patient.[facility] HospitalIn the event this information is protected by the Federal Confidentiality of Alcohol and Drug Abuse Patient Records regulations: The Federal rules restrict any use of the information to criminally investigate or prosecute any alcohol or drug abuse patient.[facility] HospitalIn the event this information is protected by the Federal Confidentiality of Alcohol and Drug Abuse Patient Records regulations: The Federal rules restrict any use of the information to criminally investigate or prosecute any alcohol or drug abuse patient.[facility] HospitalIn the event this information is protected by the Federal Confidentiality of Alcohol and Drug Abuse Patient Records regulations: The Federal rules restrict any use of the information to criminally investigate or prosecute any alcohol or drug abuse patient.[facility] HospitalIn the event this information is protected by the Federal Confidentiality of Alcohol and Drug Abuse Patient Records regulations: The Federal rules restrict any use of the information to criminally investigate or prosecute any alcohol or drug abuse patient.[facility] HospitalIn the event this information is protected by the Federal Confidentiality of Alcohol and Drug Abuse Patient Records regulations: The Federal rules restrict any use of the information to criminally investigate or prosecute any alcohol or drug abuse patient.[facility] HospitalIn the event this information is protected by the Federal Confidentiality of Alcohol and Drug Abuse Patient Records regulations: The Federal rules restrict any use of the information to criminally investigate or prosecute any alcohol or drug abuse patient.[facility] HospitalIn the event this information is protected by the Federal Confidentiality of Alcohol and Drug Abuse Patient Records regulations: The Federal rules restrict any use of the information to criminally investigate or prosecute any alcohol or drug abuse patient.[facility] HospitalIn the event this information is protected by the Federal Confidentiality of Alcohol and Drug Abuse Patient Records regulations: The Federal rules restrict any use of the information to criminally investigate or prosecute any alcohol or drug abuse patient.[facility] HospitalIn the event this information is protected by the Federal Confidentiality of Alcohol and Drug Abuse Patient Records regulations: The Federal rules restrict any use of the information to criminally investigate or prosecute any alcohol or drug abuse patient.[facility] HospitalIn the event this information is protected by the Federal Confidentiality of Alcohol and Drug Abuse Patient Records regulations: The Federal rules restrict any use of the information to criminally investigate or prosecute any alcohol or drug abuse patient.[facility] HospitalIn the event this information is protected by the Federal Confidentiality of Alcohol and Drug Abuse Patient Records regulations: The Federal rules restrict any use of the information to criminally investigate or prosecute any alcohol or drug abuse patient.[facility] HospitalIn the event this information is protected by the Federal Confidentiality of Alcohol and Drug Abuse Patient Records regulations: The Federal rules restrict any use of the information to criminally investigate or prosecute any alcohol or drug abuse patient.[facility] HospitalIn the event this information is protected by the Federal Confidentiality of Alcohol and Drug Abuse Patient Records regulations: The Federal rules restrict any use of the information to criminally investigate or prosecute any alcohol or drug abuse patient.[facility] HospitalIn the event this information is protected by the Federal Confidentiality of Alcohol and Drug Abuse Patient Records regulations: The Federal rules restrict any use of the information to criminally investigate or prosecute any alcohol or drug abuse patient.[facility] HospitalIn the event this information is protected by the Federal Confidentiality of Alcohol and Drug Abuse Patient Records regulations: The Federal rules restrict any use of the information to criminally investigate or prosecute any alcohol or drug abuse patient.[facility] HospitalIn the event this information is protected by the Federal Confidentiality of Alcohol and Drug Abuse Patient Records regulations: The Federal rules restrict any use of the information to criminally investigate or prosecute any alcohol or drug abuse patient.[facility] HospitalIn the event this information is protected by the Federal Confidentiality of Alcohol and Drug Abuse Patient Records regulations: The Federal rules restrict any use of the information to criminally investigate or prosecute any alcohol or drug abuse patient.[facility] HospitalIn the event this information is protected by the Federal Confidentiality of Alcohol and Drug Abuse Patient Records regulations: The Federal rules restrict any use of the information to criminally investigate or prosecute any alcohol or drug abuse patient.[facility] HospitalIn the event this information is protected by the Federal Confidentiality of Alcohol and Drug Abuse Patient Records regulations: The Federal rules restrict any use of the information to criminally investigate or prosecute any alcohol or drug abuse patient.[facility] HospitalIn the event this information is protected by the Federal Confidentiality of Alcohol and Drug Abuse Patient Records regulations: The Federal rules restrict any use of the information to criminally investigate or prosecute any alcohol or drug abuse patient.[facility] HospitalIn the event this information is protected by the Federal Confidentiality of Alcohol and Drug Abuse Patient Records regulations: The Federal rules restrict any use of the information to criminally investigate or prosecute any alcohol or drug abuse patient.[facility] HospitalIn the event this information is protected by the Federal Confidentiality of Alcohol and Drug Abuse Patient Records regulations: The Federal rules restrict any use of the information to criminally investigate or prosecute any alcohol or drug abuse patient.[facility] HospitalIn the event this information is protected by the Federal Confidentiality of Alcohol and Drug Abuse Patient Records regulations: The Federal rules restrict any use of the information to criminally investigate or prosecute any alcohol or drug abuse patient.[facility] HospitalIn the event this information is protected by the Federal Confidentiality of Alcohol and Drug Abuse Patient Records regulations: The Federal rules restrict any use of the information to criminally investigate or prosecute any alcohol or drug abuse patient.[facility] HospitalIn the event this information is protected by the Federal Confidentiality of Alcohol and Drug Abuse Patient Records regulations: The Federal rules restrict any use of the information to criminally investigate or prosecute any alcohol or drug abuse patient.[facility] HospitalIn the event this information is protected by the Federal Confidentiality of Alcohol and Drug Abuse Patient Records regulations: The Federal rules restrict any use of the information to criminally investigate or prosecute any alcohol or drug abuse patient.[facility] HospitalIn the event this information is protected by the Federal Confidentiality of Alcohol and Drug Abuse Patient Records regulations: The Federal rules restrict any use of the information to criminally investigate or prosecute any alcohol or drug abuse patient.[facility] HospitalIn the event this information is protected by the Federal Confidentiality of Alcohol and Drug Abuse Patient Records regulations: The Federal rules restrict any use of the information to criminally investigate or prosecute any alcohol or drug abuse patient.[facility] HospitalIn the event this information is protected by the Federal Confidentiality of Alcohol and Drug Abuse Patient Records regulations: The Federal rules restrict any use of the information to criminally investigate or prosecute any alcohol or drug abuse patient.[facility] HospitalIn the event this information is protected by the Federal Confidentiality of Alcohol and Drug Abuse Patient Records regulations: The Federal rules restrict any use of the information to criminally investigate or prosecute any alcohol or drug abuse patient.[facility] HospitalIn the event this information is protected by the Federal Confidentiality of Alcohol and Drug Abuse Patient Records regulations: The Federal rules restrict any use of the information to criminally investigate or prosecute any alcohol or drug abuse patient.[facility] HospitalIn the event this information is protected by the Federal Confidentiality of Alcohol and Drug Abuse Patient Records regulations: The Federal rules restrict any use of the information to criminally investigate or prosecute any alcohol or drug abuse patient.[facility] HospitalIn the event this information is protected by the Federal Confidentiality of Alcohol and Drug Abuse Patient Records regulations: The Federal rules restrict any use of the information to criminally investigate or prosecute any alcohol or drug abuse patient.[facility] HospitalIn the event this information is protected by the Federal Confidentiality of Alcohol and Drug Abuse Patient Records regulations: The Federal rules restrict any use of the information to criminally investigate or prosecute any alcohol or drug abuse patient.[facility] HospitalIn the event this information is protected by the Federal Confidentiality of Alcohol and Drug Abuse Patient Records regulations: The Federal rules restrict any use of the information to criminally investigate or prosecute any alcohol or drug abuse patient.[facility] HospitalIn the event this information is protected by the Federal Confidentiality of Alcohol and Drug Abuse Patient Records regulations: The Federal rules restrict any use of the information to criminally investigate or prosecute any alcohol or drug abuse patient.[facility] HospitalIn the event this information is protected by the Federal Confidentiality of Alcohol and Drug Abuse Patient Records regulations: The Federal rules restrict any use of the information to criminally investigate or prosecute any alcohol or drug abuse patient.[facility] HospitalIn the event this information is protected by the Federal Confidentiality of Alcohol and Drug Abuse Patient Records regulations: The Federal rules restrict any use of the information to criminally investigate or prosecute any alcohol or drug abuse patient.[facility] HospitalIn the event this information is protected by the Federal Confidentiality of Alcohol and Drug Abuse Patient Records regulations: The Federal rules restrict any use of the information to criminally investigate or prosecute any alcohol or drug abuse patient.[facility] HospitalIn the event this information is protected by the Federal Confidentiality of Alcohol and Drug Abuse Patient Records regulations: The Federal rules restrict any use of the information to criminally investigate or prosecute any alcohol or drug abuse patient.[facility] HospitalIn the event this information is protected by the Federal Confidentiality of Alcohol and Drug Abuse Patient Records regulations: The Federal rules restrict any use of the information to criminally investigate or prosecute any alcohol or drug abuse patient.[facility] HospitalIn the event this information is protected by the Federal Confidentiality of Alcohol and Drug Abuse Patient Records regulations: The Federal rules restrict any use of the information to criminally investigate or prosecute any alcohol or drug abuse patient.[facility] HospitalIn the event this information is protected by the Federal Confidentiality of Alcohol and Drug Abuse Patient Records regulations: The Federal rules restrict any use of the information to criminally investigate or prosecute any alcohol or drug abuse patient.[facility] HospitalIn the event this information is protected by the Federal Confidentiality of Alcohol and Drug Abuse Patient Records regulations: The Federal rules restrict any use of the information to criminally investigate or prosecute any alcohol or drug abuse patient.[facility] HospitalIn the event this information is protected by the Federal Confidentiality of Alcohol and Drug Abuse Patient Records regulations: The Federal rules restrict any use of the information to criminally investigate or prosecute any alcohol or drug abuse patient.[facility] HospitalIn the event this information is protected by the Federal Confidentiality of Alcohol and Drug Abuse Patient Records regulations: The Federal rules restrict any use of the information to criminally investigate or prosecute any alcohol or drug abuse patient.[facility] HospitalIn the event this information is protected by the Federal Confidentiality of Alcohol and Drug Abuse Patient Records regulations: The Federal rules restrict any use of the information to criminally investigate or prosecute any alcohol or drug abuse patient.[facility] HospitalIn the event this information is protected by the Federal Confidentiality of Alcohol and Drug Abuse Patient Records regulations: The Federal rules restrict any use of the information to criminally investigate or prosecute any alcohol or drug abuse patient.[facility] HospitalIn the event this information is protected by the Federal Confidentiality of Alcohol and Drug Abuse Patient Records regulations: The Federal rules restrict any use of the information to criminally investigate or prosecute any alcohol or drug abuse patient.[facility] HospitalIn the event this information is protected by the Federal Confidentiality of Alcohol and Drug Abuse Patient Records regulations: The Federal rules restrict any use of the information to criminally investigate or prosecute any alcohol or drug abuse patient.[facility] HospitalIn the event this information is protected by the Federal Confidentiality of Alcohol and Drug Abuse Patient Records regulations: The Federal rules restrict any use of the information to criminally investigate or prosecute any alcohol or drug abuse patient.[facility] HospitalIn the event this information is protected by the Federal Confidentiality of Alcohol and Drug Abuse Patient Records regulations: The Federal rules restrict any use of the information to criminally investigate or prosecute any alcohol or drug abuse patient.[facility] HospitalIn the event this information is protected by the Federal Confidentiality of Alcohol and Drug Abuse Patient Records regulations: The Federal rules restrict any use of the information to criminally investigate or prosecute any alcohol or drug abuse patient.[facility] HospitalIn the event this information is protected by the Federal Confidentiality of Alcohol and Drug Abuse Patient Records regulations: The Federal rules restrict any use of the information to criminally investigate or prosecute any alcohol or drug abuse patient.[facility] HospitalIn the event this information is protected by the Federal Confidentiality of Alcohol and Drug Abuse Patient Records regulations: The Federal rules restrict any use of the information to criminally investigate or prosecute any alcohol or drug abuse patient.[facility] HospitalIn the event this information is protected by the Federal Confidentiality of Alcohol and Drug Abuse Patient Records regulations: The Federal rules restrict any use of the information to criminally investigate or prosecute any alcohol or drug abuse patient.[facility] HospitalIn the event this information is protected by the Federal Confidentiality of Alcohol and Drug Abuse Patient Records regulations: The Federal rules restrict any use of the information to criminally investigate or prosecute any alcohol or drug abuse patient.[facility] HospitalIn the event this information is protected by the Federal Confidentiality of Alcohol and Drug Abuse Patient Records regulations: The Federal rules restrict any use of the information to criminally investigate or prosecute any alcohol or drug abuse patient.[facility] HospitalIn the event this information is protected by the Federal Confidentiality of Alcohol and Drug Abuse Patient Records regulations: The Federal rules restrict any use of the information to criminally investigate or prosecute any alcohol or drug abuse patient.[facility] HospitalIn the event this information is protected by the Federal Confidentiality of Alcohol and Drug Abuse Patient Records regulations: The Federal rules restrict any use of the information to criminally investigate or prosecute any alcohol or drug abuse patient.[facility] Reason for Visit (unrecogniz ed section and content) Reason Onset Date Comments Refill Request 03/31/2022 Reason Onset Date Comments Refill Request 04/21/2022 Reason Comments Multiple Missed Appointment Reason Comments 6 Month Exam Specialty Diagnoses / Procedures Referred By Lovely estrada Referred To Contact Family Practice / FAMILY MEDICINE Diagnoses 6 mo follow up /meds Procedures 4C MD Valeriy Ortega Rayanne, [address] [place] [address] Referral ID Status Reason Start Date Expiration Date Visits Re quested Visits Authorized [id number] Closed 05/05/2022 11/06/2022 1 1 Reason Comments Results Reason Onset Date Comments Refill Request 05/10/2022 Reason Comments Patient Update Reason Comments Spirometry Specialty Diagnoses / Procedures Referred By Contac t Referred [facility] Diagnoses COPD with chronic bronchitis (HCC) SOB (shortness of breath) CHURCH (dyspnea on exertion) Procedures SPIROMETRY - BASELINE AND POST DILATOR BRNCDILAT RSPSE SPMTRY PRE&POST-BRNCDILAT ADMStephani Vazquez PA-C [address] [place] [address] [facility] [place] [address] [place] [address] Referral ID Status Reason Start Date Expiration Date V isits Requested Visits Authorized [id number] Closed Auto-Generate d Referral 05/07/2022 11/06/2022 1 1 Reason Comments Social Work Services Reason Comments Recheck Specialty Diagnoses / Procedures Referred By Contac t Referred To Contact Family Practice / FAMILY MEDICINE Diagnoses 4 weeks follow up Procedures 4C MD Brigitte Ortega Jeffrey A, MD [address] [place] [id number] Referral ID Status Reason Start Date Expiration Date Visits Re quested Visits Authorized [id number] Closed 05/24/2022 11/06/2022 1 1 Reason Comments [facility] nephrology social worker verbal order reques t Reason Comments Patient Question Reason Onset Date Comments Refill Request 05/31/2022 Reason Comments Orders Reason Onset Date Comments Refill Request 06/03/2022 Reason Comments Delay of care Reason Onset Date Comments Refill Request 06/14/2022 Reason Onset Date Comments Refill Request 06/29/2022 Reason Comments Follow Up Specialty Diagnoses / Procedures Referred By Contac t Referred To Contact Family Practice / FAMILY MEDICINE Diagnoses 4 week follow up htn/edema/depression med check Procedures 4C Leno Abrams MD [address] [place] [id number] Leno Briggs MD [address] [place] [address] Referral ID Status Reason Start Date Expiration Date Visits Re quested Visits Authorized [id number] Closed 07/05/2022 11/06/2022 1 1 Reason Comments motorized scooter Reason Onset Date Comments Refill Request 08/03/2022 Reason Onset Date Comments Refill Request 08/26/2022 Reason Onset Date Comments Refill Request 09/07/2022 Reason Onset Date Comments Refill Request 09/14/2022 Reason Comments Opened In Error Reason Comments Follow Up Reason Comments Med Change Request Reason Onset Date Comments Refill Request 11/06/2022 Reason Onset Date Comments Refill Request 11/16/2022 Reason Onset Date Comments Refill Request 11/19/2022 Reason Onset Date Comments Refill Request 11/20/2022 Reason Onset Date Comments Refill Request 12/02/2022 Reason Onset Date Comments Refill Request 12/06/2022 Reason Onset Date Comments Refill Request 12/13/2022 Reason Comments medication issue Reason Comments Acute Visit Having daily nightma res UTI Urinary frequency & dysuria X 4-5 days. Reason Comments Incontinence (Mixed Incontinence) Specialty Diagnoses / Procedures Referred By Contac t Referred To Contact Diagnoses Vaginal burning Mixed incontinence Incontinence of feces, unspecified fecal incontinence type Procedures CONSULT TO URO GYNECOLOGY OFFICE/OUTPATIENT [facility] 60-74 MINUTES Madalyn Degroot APRN.CNM [address] [place] [address] Referral ID Status Reason Start Date Expiration Date Visits Requested Visits Authorized [id number] Pending Review PCP Requested Referral Auto-Generate d Referral 12/28/2022 12/28/2023 1 1 Reason Onset Date Comments Refill Request 01/05/2023 Reason Comments vaginal pain Reason Onset Date Comments Refill Request 01/18/2023 Reason Comments Consult Colovesical fistula Specialty Diagnoses / Procedures Referred By Contac t Referred To Contact Colon and Rectal Surgery Diagnoses Colovesical fistula Procedures CONSULT TO COLO-RECTAL SURGERY OFFICE/OUTPATIENT [facility] 60-74 MINUTES Eufemia Chapa, PREPRESS SPECIALIST.MOBILE HOMES REPAIRER [address] [place] [address] Referral ID Status Reason Start Date Expiration Date Visits Requested Visits Authorized [id number] Pending Review PCP Requested Referral 01/06/2023 01/06/2024 1 1 Reason Comments Appointment Reason Onset Date Comments Refill Request 02/02/2023 Reason Comments Diverticulitis Reason Onset Date Comments Refill Request 02/13/2023 Reason Comments Medication Request Reason Onset Date Comments Refill Request 03/09/2023 Reason Onset Date Comments Refill Request 03/16/2023 Reason Comments Memory Loss Specialty Diagnoses / Procedures Referred By Contac t Referred To Contact Geriatric Medicine Diagnoses dementia Procedures geriatric assessment Stephani Crooks [address] [place] [address] [facility] [address] [place] [address] Referral ID Status Reason Start Date Expiration Date V isits Requested Visits Authorized [id number] Pending Review 03/16/2023 09/12/2023 1 1 Reason Comments New Patient Evaluation for colov esical fistula Other Patient accompanied by Gail sister, Mariela daughter Reason Onset Date Comments Refill Request 04/10/2023 Specialty Diagnoses / Procedures Referred By Contac t Referred To Contact Radiology Diagnoses Memory loss Procedures CT head wo IV contrast Shantal Serrano, PREPRESS SPECIALIST - MOBILE HOMES REPAIRER [address] [facility] [address] [place] [address] Referral ID Status Reason Start Date Expiration Date Visits Re quested Visits Authorized [id number] Closed 04/05/2023 10/02/2023 1 1 Specialty Diagnoses / Procedures Referred By Contac t Referred To Contact 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] Procedures [place] COLONOSCOPY FLX DX W/COLLJ SPEC WHEN PFRMD COLONOSCOPY Samantha Nava MD [address] [place] [address] [facility] [address] [place] [address] Referral ID Status Reason Start Date Expiration Date Visits Re quested Visits Authorized [id number] 1 1 Reason Comments Memory Loss Reason Comments Results Best # [phone]( Mariela, daughter)Discuss results of colonoscopy done 05/25/23 Reason Comments Med Refill Reason Comments Recheck Follow up 6 months Reason Onset Date Comments Med Refill 07/05/2023 Reason Onset Date Comments Refill Request 08/23/2023 Reason Onset Date Comments Cancelled Appointment 08/16/2023 Cancel miles ointment 10.10.23 2:45pm Reason Onset Date Comments change appointment 09/14/2023 Care Teams (unrecognized sec tion and content) Gem Technician Relationship Specialty Start Date End Date Leno Briggs MD [facility] [place] [address] PCP - General Family Practice 11/25/16 Gem Technician Relationship Specialty Start Date End Date Lneo Briggs MD [address] [place] [address], [place] [address] PCP - General Family Practice 11/25/16 Gem Technician Relationship Specialty Start Date End Date Leno Briggs MD [address] [place] [address], [place] [address] PCP - General Family Practice 11/25/16 Gem Technician Relationship Specialty Start Date End Date Leno Briggs MD [address] [place] [address], [place] [address] PCP - General Family Practice 11/25/16 Gem Technician Relationship Specialty Start Date End Date Leno Briggs MD [address] [place] [address], [place] [address] PCP - General Family Practice 11/25/16 Gem Technician Relationship Specialty Start Date End Date Leno Briggs MD [address] [place] [address], [place] [address] PCP - General Family Practice 11/25/16 Gem Technician Relationship Specialty Start Date End Date Leno Briggs MD [address] [place] [address], [place] [address] PCP - General Family Practice 11/25/16 Gem Technician Relationship Specialty Start Date End Date Leno Briggs MD [address] [place] [address] [place] [address] PCP - General Family Practice 11/25/16 Gem Technician Relationship Specialty Start Date End Date Leno Briggs MD [address] [facility] [place] [address] PCP - General Family Practice 11/25/16 Gem Technician Relationship Specialty Start Date End Date Leno Briggs MD [address] [facility] [place] [address] PCP - General Family Practice 11/25/16 Gem Technician Relationship Specialty Start Date End Date Leno Briggs MD [facility] [place] [address] PCP - General Family Practice 11/25/16 Gem Technician Relationship Specialty Start Date End Date Leno Briggs MD [address] [place] [address], [place] [address] PCP - General Family Practice 11/25/16 Gem Technician Relationship Specialty Start Date End Date Leno Briggs MD [facility] [place] [address] PCP - General Family Practice 11/25/16 Gem Technician Relationship Specialty Start Date End Date Leno Briggs MD [facility] [place] [address] PCP - General Family Practice 11/25/16 Gem Technician Relationship Specialty Start Date End Date Leno Briggs MD [facility] [place] [address] PCP - General Family Practice 11/25/16 Gem Technician Relationship Specialty Start Date End Date Leno Briggs MD [facility] [place] [address] PCP - General Family Practice 11/25/16 Gem Technician Relationship Specialty Start Date End Date Leno Briggs MD [address] [place] [address], [place] [address] PCP - General Family Practice 11/25/16 Gem Technician Relationship Specialty Start Date End Date Leno Briggs MD [address] [facility] [place] [address] PCP - General Family Practice 11/25/16 Gem Technician Relationship Specialty Start Date End Date Leno Briggs MD [facility] [place] [address] PCP - General Family Practice 11/25/16 Gem Technician Relationship Specialty Start Date End Date Leno Briggs MD [address] [place] [address], [place] [address] PCP - General Family Practice 11/25/16 Gem Technician Relationship Specialty Start Date End Date Leno Briggs MD [address] [place] [address], [place] [address] PCP - General Family Medicine 11/25/16 Gem Technician Relationship Specialty Start Date End Date Leno Briggs MD [address] [place] [address] [place] [address] PCP - General Family Medicine 11/25/16 Gem Technician Relationship Specialty Start Date End Date Leno Briggs MD [address] [place] [address] [place] [address] PCP - General Family Medicine 11/25/16 Gem Technician Relationship Specialty Start Date End Date Leno Briggs MD [address] [place] [address], [place] [address] PCP - General Family Medicine 11/25/16 Gem Technician Relationship Specialty Start Date End Date Leno Briggs MD [address] [place] [address], [place] [address] PCP - General Family Medicine 11/25/16 Gem Technician Relationship Specialty Start Date End Date Leno Briggs MD [address] [facility] [place] [address] PCP - General Family Medicine 11/25/16 Gem Technician Relationship Specialty Start Date End Date Leno Briggs MD [address] [facility] [place] [address] PCP - General Family Medicine 11/25/16 Gem Technician Relationship Specialty Start Date End Date Leno Briggs MD [facility] [place] [address] PCP - General Family Medicine 11/25/16 Gem Technician Relationship Specialty Start Date End Date Leno Briggs MD [address] [place] [address], [place] [address] PCP - General Family Medicine 11/25/16 Gem Technician Relationship Specialty Start Date End Date Leno Birggs MD [address] [place] [address], [place] [address] PCP - General Family Medicine 11/25/16 Gem Technician Relationship Specialty Start Date End Date Leno Briggs MD [facility] [place] [address] PCP - General Family Medicine 11/25/16 Gem Technician Relationship Specialty Start Date End Date Leno Briggs MD [facility] [place] [address] PCP - General Family Medicine 11/25/16 Gem Technician Relationship Specialty Start Date End Date Leno Briggs MD [facility] [place] [address] PCP - General Family Medicine 11/25/16 Gem Technician Relationship Specialty Start Date End Date Leno Briggs MD [facility] [place] [address] PCP - General Family Medicine 11/25/16 Gem Technician Relationship Specialty Start Date End Date Leno Briggs MD [address] [facility] [place] [address] PCP - General Family Medicine 11/25/16 Gem Technician Relationship Specialty Start Date End Date Leno Briggs MD [address] [facility] [place] [address] PCP - General Family Medicine 11/25/16 Gem Technician Relationship Specialty Start Date End Date Leno Briggs MD [address] [facility] [place] [address] PCP - General Family Medicine 11/25/16 Gem Technician Relationship Specialty Start Date End Date Leno Briggs MD [facility] [place] [address] PCP - General Family Medicine 11/25/16 Gem Technician Relationship Specialty Start Date End Date Leno Briggs MD [facility] [place] [address] PCP - General Family Medicine 11/25/16 Gem Technician Relationship Specialty Start Date End Date Leno Briggs MD [facility] [place] [address] PCP - General Family Medicine 11/25/16 Gem Technician Relationship Specialty Start Date End Date Leno Briggs MD [facility] [place] [address] PCP - General Family Medicine 11/25/16 Gem Technician Relationship Specialty Start Date End Date Leno Briggs MD [facility] [place] [address] PCP - General Family Medicine 11/25/16 Gem Technician Relationship Specialty Start Date End Date Leno Briggs MD [facility] [place] [address] PCP - General Family Medicine 11/25/16 Gem Technician Relationship Specialty Start Date End Date Leno Briggs MD [address] [place] [address] [place] [address] PCP - General 04/01/19 Gem Technician Relationship Specialty Start Date End Date Leno Briggs MD [address] [place] [address] [place], [place] [id number] PCP - General 04/01/19 Gem Technician Relationship Specialty Start Date End Date Leno Briggs MD [address] [place] [address] [place], [place] [id number] PCP - General 04/01/19 Gem Technician Relationship Specialty Start Date End Date Leno Briggs MD [address] [address] [place], [place] [id number] PCP - General 04/01/19 Gem Technician Relationship Specialty Start Date End Date Leno Briggs MD [address] [place] [address] [place], [place] [id number] PCP - General 04/01/19 Gem Technician Relationship Specialty Start Date End Date Leno Briggs MD [address] [place] [address] [place] [address] PCP - General 04/01/19 Gem Technician Relationship Specialty Start Date End Date Leno Briggs MD [address] [address] [place], [place] [id number] PCP - General 04/01/19 Gem Technician Relationship Specialty Start Date End Date Leno Briggs MD [address] [place] [address] PCP - General Family Medicine 11/25/16 Gem Technician Relationship Specialty Start Date End Date Leno Briggs MD [address] [place] [address] PCP - General Family Medicine 11/25/16 Gem Technician Relationship Specialty Start Date End Date Leno Briggs MD [address] [place] [address] PCP - General Family Medicine 11/25/16 Gem Technician Relationship Specialty Start Date End Date Leno Briggs MD [address] [place] [address] PCP - General Family Medicine 11/25/16 Gem Technician Relationship Specialty Start Date End Date Leno Briggs MD [address] [address] [place] [address] PCP - General 04/01/19 Gem Technician Relationship Specialty Start Date End Date Leno Briggs MD [address] [address] [place] [address] PCP - General 04/01/19 Gem Technician Relationship Specialty Start Date End Date Leno Briggs MD [address] [place] [address] PCP - General Family Medicine 11/25/16 Gem Technician Relationship Specialty Start Date End Date Leno Briggs MD [address] [place] [address] PCP - General Family Medicine 11/25/16 Gem Technician Relationship Specialty Start Date End Date Leno Briggs MD [address] [place] [address] PCP - General Family Medicine 11/25/16 Scheduled Active and Recently Administ ered Medications (unrecognized section and content) PRN Medication Order 05/23/2023 05/24/2023 05/25/2023 sodium chloride 0.9 % infusion 5-250 mL/hr, IntraVENous, PRN, if patient receiving piggyback infusions and maintenance fluids are not ordered OR KVO fluids to protect IV site / prevent frequent line interruptions/ long duration, Starting on Tue05/25/23 at 0810, For piggyback infusion, administer at same rate as piggyback for a total of 25 mL. Enter 25 mL into dose field and piggyback rate into rate field of order. If piggyback is infusing at a rate less than 100 mL/hr, enter 25 mL into dose field and 100 mL/hr into rate field of order. For KVO fluids, enter rate of 20 mL/hr or less into rate field of order. sodium chloride 0.9 % infusion 5-250 mL/hr, IntraVENous, PRN, if patient receiving piggyback infusions and maintenance fluids are not ordered OR KVO fluids to protect IV site / prevent frequent line interruptions/ long duration, Starting on Tue05/25/23 at 0810, Preprocedure, For piggyback infusion, administer at same rate as piggyback for a total of 25 mL. Enter 25 mL into dose field and piggyback rate into rate field of order. If piggyback is infusing at a rate less than 100 mL/hr, enter 25 mL into dose field and 100 mL/hr into rate field of order. For KVO fluids, enter rate of 20 mL/hr or less into rate field of order. [id number] (New Bag - Prov ider: Arie Cain RN)1041 (Paused - Provider: FILEMON Robles CRNA - Comment: Switch to gravity)1042 (Restarted - Provider: FILEMON Robles CRNA)1119 (Stopped - Provider: FILEMON Robles CRNA) sodium chloride 0.9% (NS) flush 10 mL 10 mL, IntraVENous, PRN, line care, Starting on Tue05/25/23 at 0810, After every IV line use sodium chloride 0.9% (NS) flush 10 mL 10 mL, IntraVENous, PRN, line care, Starting on Tue05/25/23 at 0810, Preprocedure, After every IV line use FOR RECORDS PERTAINING TO PATIENTS WHO ARE OR HAVE BEEN ENROLLED IN A CHEMICAL DEPENDENCY/SUBSTANCEABUSE PROGRAM, SOME INFORMATION MAY BE OMITTED. This clinical summary was aggregated from multiple sources. Caution should be exercised in using it in the provision of clinical care. This summary normalizes information from multiple sources, and as a consequence, information in this document may materially change the coding, format and clinical context of patient data. In addition, data may be omitted in some cases. CLINICAL DECISIONS SHOULD BE BASED ON THE PRIMARY CLINICAL RECORDS. [employer] provides no warranty or guarantee of the accuracy or completeness of information in this document.
[2023-11-06 15:12] LABS: Urine Bilirubin Dipstick 6 mg/dL (Negative)
[2023-11-06 15:13] LABS: Bacteria 3+ /hpf (None Seen); Red Blood Cells-Urine 25-50 SEEN /hpf (0-5); White Blood Cells 5-10 SEEN /hpf (0-5)
[2023-11-06 15:29] LABS: Lactic Acid 1.1 mmol/L (0.4-1.9)
[2023-11-06 15:38] LABS: Procalcitonin 0.24 ng/mL (0.00-0.09)
[2023-11-06] MEDS: dexAMETHasone 10 MG/ML Vial 6 MG IV (16:03)
[2023-11-06] MEDS: Ceftriaxone 1 GM/50 ML BAG IV (16:03)
--- NOTE | 2023-11-06 16:26 | HP.PCM.HOS_ITS ---
HPI - General General Date of Admission: 11/06/23 Date of Service: 11/06/23 Chief Complaint: Encephalopathy, dyspnea, hypoxia. HPI Narrative The patient is an 83 y/o F w/ PMHx: Colovesical fistula, COPD, Dementia with mood disturbance history, TACO, CKD stage IIIa, HTN, HLD, Chronic anemia, HF unclear type, Anxiety and Depression, Diabetes mellitus type II who presents to the [facility] ED on 11/06/23 with history of onset of dyspnea worsening over the last day with mild cough and altered mental status above her baseline with known underlying dementia but significantly worsened over the last 24 hours with daughter noting that she was recently diagnosed with COVID with possibly increased urinary frequency and foul-smelling urine with history of issues with urinary tract infections given known colovesical fistula prompting ED evaluation. Workup in the ED included T99.9, heart rate 87, BP 129/69, respiratory rate 22, initially 88% on 6 L worsened now to 93% on 10 L high flow, CBC with WBC 5.3, hemoglobin 8.3, MCV 80, platelet 161 with lymphopenia, CMP with Comvax at 35, anion gap 3, BUN/creatinine 23/1.36, glucose 174, lactic acid 1.1, magnesium and phosphorus both normal levels, troponin 63, procalcitonin 0.24, urinalysis noted to be red and cloudy, specific gravity 1.025, protein 100, ketone 5, occult blood 150, positive nitrite, leukocyte Estrace 500 with urine RBCs 25-50 with urine WBCs 5-10 with 3+ urine bacteria, chest x-ray with a right-sided pneumonia, blood culture x 2 pending per ED, urine culture pending per ED, SARS COVID antigen positive. In the ED patient administered IV Rocephin, Decadron 6 mg IV x 1. PFSH Medical History Arthritis CHF (congestive heart failure) Chronic back pain Colovesical fistula COPD (chronic obstructive pulmonary disease) Dementia with mood disturbance Diabetes DJD (degenerative joint disease) High cholesterol Hypertension Interstitial cystitis Melanoma TACO (obstructive sleep apnea) Pulmonary hypertension Pulmonary nodule Stage 3a chronic kidney disease (CKD) Home Medications albuterol sulfate 2.5 mg/3 mL (0.083 %) solution for nebulization 2.5 mg inhalation Q6H PRN PRN Wheezing 03/10/18 [History Last Taken Unknown] aspirin 81 mg chewable tablet 81 mg PO DAILY@0800 01/14/18 [History Last Taken Unknown] atorvastatin 40 mg tablet 40 mg PO QHS 01/14/18 [History Last Taken Unknown] furosemide 20 mg tablet 20 mg PO BIDCM 01/14/18 [History Last Taken Unknown] hydrocodone-acetaminophen 5-325mg 5mg-325mg 1 tab PO BID PRN Pain 01/14/18 [History Last Taken Unknown] losartan 50 mg tablet (Cozaar) 50 mg PO DAILY 01/14/18 [History Last Taken Unknown] donepezil 10 mg tablet 10 mg PO QHS 11/06/23 [History Last Taken Unknown] hydroxyzine HCl 10 mg tablet 10 mg PO QHS 11/06/23 [History Last Taken Unknown] isosorbide mononitrate 30 mg tablet,extended release 24 hr 30 mg PO DAILY 11/06/23 [History Last Taken Unknown] melatonin 10 mg capsule 10 mg PO QHS 11/06/23 [History Last Taken Unknown] metformin 500 mg tablet,extended release 24 hr 1,000 mg PO DAILY 11/06/23 [History Last Taken Unknown] mirtazapine 7.5 mg tablet 7.5 mg PO QHS 11/06/23 [History Last Taken Unknown] pantoprazole 40 mg tablet,delayed release 40 mg PO Q12H 11/06/23 [History Last Taken Unknown] phenazopyridine 95 mg tablet (Azo Urinary Pain Relief) 190 mg PO BID 11/06/23 [History Last Taken Unknown] pioglitazone 15 mg tablet 15 mg PO DAILY 11/06/23 [History Last Taken Unknown] sertraline 50 mg tablet 50 mg PO Q24H 11/06/23 [History Last Taken Unknown] Allergy/AdvReac Type Severity Reaction Status Date / Time Iodinated Contrast Media Allergy Other Verified 11/06/23 14:13 [DYEE] tramadol [From Ultram] AdvReac Other Verified 11/06/23 14:13 trazodone AdvReac Other Verified 11/06/23 14:13 Family History (Updated 11/06/23 @ 20:[address] Myesha Child MD) Mother Hypertension Father CVA (cerebral vascular accident) Hypertension Diabetes Surgical History (Updated 11/06/23 @ 20:[address] Myesha Child MD) History of cholecystectomy History of left knee replacement Social History (Updated 11/06/23 @ 20:[address] Myesha Child MD) household members: children Smoking Status: Former smoker how long ago did patient quit smoking: Quit ~ 27 yrs prior, smoked 4 ppd since age 19 until quit. alcohol intake: never substance use type: does not use ROS Review of Systems ROS Unobtainable: due to encephalopathy Vital Signs Vital Signs Vital Signs: 11/06/23 14:06 11/06/23 14:12 11/06/23 14:14 Temperature 99.9 F H Temperature Source Temporal Pulse Rate 87 Respiratory Rate 22 H Respiratory Effort Short of Breath Labored Respiratory Depth Deep Respiratory Pattern Tachypnea Blood Pressure 129/69 H Blood Pressure Mean 89 Pulse Ox 88 91 Oxygen Delivery Method Nasal Cannula Nasal Cannula High Flow Oxygen Flow Rate (L/min) 6 6 10 11/06/23 15:11 11/06/23 16:00 11/06/23 16:21 Temperature 99.9 F H 99.3 F H 99 F Temperature Source Temporal Temporal Pulse Rate 84 82 81 Respiratory Rate 21 H 20 H 19 H Respiratory Effort Respiratory Depth Respiratory Pattern Blood Pressure 134/60 H 129/56 H 129/56 H Blood Pressure Mean 84 80 80 Pulse Ox 92 93 92 Oxygen Delivery Method High Flow High Flow Oxygen Flow Rate (L/min) 10 10 Weight Weight: 343 lb 7.683 oz Body Mass Index (BMI) 57.1 Physical Exam Narrative Physical Examination: General: Patient very encephalopathic, awakens to stimuli but not alert and not oriented, not following any commands, seated upright in the ED bed, ill- appearing, high flow oxygen remains in place but respirator stress has improved. Skin: Normal color, normal turgor, no icterus, no cyanosis except occasional staged ecchymoses, abrasion and bilateral lower extremity stasis skin changes. HEENT: AT/NC, EOM unable to be assessed well given encephalopathy, PERRLA, mildly dry MM, no carotid bruits, difficult to determine JVD given significantly thickened neck. Lungs: Significantly diffusely diminished, greater bases, right greater than left, mildly increased respiratory rate, high flow oxygen in place, respiratory distress has improved since oxygen supplementation, no current wheezing. Heart: Regular rate and rhythm; no gallop, rub audible. Abdomen: Soft, morbidly obese, NTTP, distant BS, difficult to discern distention and HSM given habitus. Extremities: No cyanosis, no clubbing, bilateral pedal to distal bingham edema. Neurological: Patient very encephalopathic, awakens to stimuli but not alert and not oriented, not following any commands, seated upright in the ED bed, ill-miles earing, high flow oxygen remains in place but respirator stress has improved, cognitive function not baseline intact but of note is decreased baseline with underlying dementia; pupils equally reactive to light and accommodation, cranial nerves difficult to assess given encephalopathy, moving extremities spontaneously, strength severely globally decreased. Psychiatric: Affect appears fatigued and ill-appearing, respiratory failure is improved since oxygen supplementation, remains exceedingly encephalopathic, does have underlying anxiety and depression. Results Lab / Micro Data 11/06/23 14:20 11/06/23 14:20 Labs: Laboratory Results - last 24 hr 11/06/23 14:20: WBC 5.3, RBC 3.70 L, Hgb 8.3 L, Hct 29.6 L, MCV 80.0 L, MCH 22.4 L, MCHC 28.0 L, RDW Std Deviation 50.8 H, RDW Coeff of Esvin 17.4 H, Plt Count 161, MPV 10.7, Immature Gran % (Auto) 0.400, Neut % (Auto) 72.8 H, Lymph % (Auto) 12.4 L, [place] % (Auto) 13.0 H, Eos % (Auto) 0.8, Baso % (Auto) 0.6, Absolute Neuts (auto) 3.9, Absolute Lymphs (auto) 0.66 L, Nucleated RBC % 0, Sodium 141, Potassium 3.9, Chloride 103, Carbon Dioxide 35.0 H, Anion Gap 3 L, BUN 23 H, Creatinine 1.36 H, Estim Creat Clear Calc 28.20, Est GFR (MDRD) Af Amer 48 L, Est GFR (MDRD) Non-Af 39 L, BUN/Creatinine Ratio 16.9, Glucose 174 H, Calcium 8.4 L, Phosphorus 3.9, Magnesium 2.1, Total Bilirubin 0.70, Direct Bilirubin 0.27, AST 25, ALT 16, Alkaline Phosphatase 80, Troponin I High Sens 63 H, Total Protein 6.5, Albumin 3.1 L, Globulin 3.4 11/06/23 14:35: Lactic Acid 1.1, Procalcitonin 0.24 H 11/06/23 14:50: Urine Color Red, Urine Clarity Sl. Cloudy, Urine pH 5.0, Ur Specific [place] 1.025, Urine Protein 100 H, Urine Glucose (UA) Normal, Urine Ketones 5 H, Urine Occult Blood 150 H, Urine Nitrite Positive H, Urine Bilirubin 6 H, Urine Urobilinogen 8 H, Ur Leukocyte Esterase 500 H, Urine RBC 25-50 SEEN, Urine WBC 5-10 SEEN, Ur Squamous Epith Cells 0 SEEN, Urine Bacteria 3+, Urine Mucus 0 SEEN Micro: Microbiology 11/06/23 14:27 Mucosa - Nasopharyngeal SARS-CoV-2, Influenza & RSV (PCR) - Final SARS-CoV-2 (COVID 19) Imagaing Radiology Impression Chest X-Ray 11/06/23 14:46 IMPRESSION: Right sided pneumonia. Electronically Signed: Mitch Muniz MD at 15:18 EST Reading Location ID and State: [facility] / [place] , Service support , Assessment & Plan Assessment/Plan (1) COVID-19: PLAN: Plan The patient is an 83 y/o F w/ PMHx: Colovesical fistula, COPD, Dementia with mood disturbance history, TACO, CKD stage IIIa, HTN, HLD, Chronic anemia, HF unclear type, Anxiety and Depression, Diabetes mellitus type II who presents to the [facility] ED on 11/06/23 with history of onset of dyspnea worsening over the last day with mild cough and altered mental status above her baseline with known underlying dementia but significantly worsened over the last 24 hours with daughter noting that she was recently diagnosed with COVID with possibly increased urinary frequency and foul-smelling urine with history of issues with urinary tract infections given known colovesical fistula prompting ED evaluat ion. #1. Acute Encephalopathy secondary to Acute Hypoxic Respiratory Failure secondary to RLL Pneumonia secondary to Acute Viral Syndrome, COVID-19 and concern of concurrent superimposed Bacterial RLL Pneumonia, possibly aspiration as well as #2/#3: Will admit to the PCU, maintain on COVID precautions, will maintain on oxygen with wean as tolerated with transition to airvo or BIPAP pending re-evaluations, given plain film will place on Zosyn given conern for possible aspiration, ATC budesonide therapy, PRN albuterol, HOB, IS parameters w/ pending sputum cultures, respiratory viral panel and urine antigens, will obtain D-dimer, procalcitonin, CRP, CPK, Ferritin, LDH, BNP, continue supportive care, given presentation and film some concern for overload, will pulse dose IV lasix x 1, very judiciously hydrate only given these concerns, closely monitor for worsening status for ARDS and multiorgan failure, will initiate and continue IV decadron x 10 doses, given presentation will also initiate IV remdesivir but defer to discretion of Infectious disease. Infectious disease consulted. If worsens and needs BIPAP, low threshold to transition to the ICU with Rn Invasive consultation. PT/OT/ST/CM consulted. NPO status. #2. Indeterminate cardiac enzyme likely secondary to demand secondary to #1, #2: EKG in ED no acute evidence of ischemia, CXR w/ concern for right lower lobe pneumonia and possible mild overload, initial trop 63. Will place on a monitored bed to assure no acute myocardial infarction with serial cardiac enzymes and EKGs. Magnesium level already obtained per ED. FLP in AM. Will continue to cycle cardiac enzymes as noted and if rise further certainly may transition to a heparin drip but will use chemoprophylactic dosing at this time. Also given positive COVID status will hold on immediate echocardiogram but if significantly rises will obtain and would involve cardiology at that time. [place] ASA. #3. Acute Complicated Urinary Tract Infection with Colovesical fistula: UA upon ED evaluation remarkable, pending UCx, monitor I/Os, continue IV Zosyn given #1 w/ transition as able pending sensitivities and speciation. Bld cx x 2 obtained in the ED. #4. HF Unclear type with concern decompensation in the setting of #1: As noted we will maintain KVO, will maintain on IV lasix given overload initial concerns, will hold all oral regimen (oral aspirin, losartan, Lasix, statin therapy), transitioned to [place] ASA. ECHO as noted will be requested if enzymes rise further, but given + COVID status will defer immediately until out of precautions if able. #5. Diabetes mellitus type II: Hold oral home regimen, currently n.p.o. status secondary to encephalopathy, while n.p.o. maintain every 6 hours accu checks w/ ISS. #6. Chronic Kidney Disease Stage IIIa: Admission BUN/Cr 23/1.36, baseline renal function does not appear to be available in the system however she does have a chart reported history of stage IIIa chronic kidney disease and the GFR currently would be consistent with this, will continue to closely monitor especially given IV Lasix usage. #7. Dementia with mood disturbance chart reported: Complicates presentation, normally on donepezil, holding, will attempt a place near nursing station with fall and aspiration precautions, PT/OT/case management consulted for discharge planning. Given encephalopathy holding all oral medicines as noted. #8. Chronic COPD: Complicates presentation, as noted currently maintained on supplementation, will attempt BiPAP nightly, will transition to ATC budesonide therapy, PRN albuterol, HOB, IS parameters. #9. Anxiety and depression: Temporarily holding patient home mirtazapine as well as sertraline home regimen given unsafe oral intake, resume once clinically appropriate. #10. Hypertension: Holding oral regimen as noted, maintain on IV Lasix, PRN hydralazine. #11. Hyperlipidemia: Temporally holding oral regimen as noted, add back oral statin once appropriate, FLP in AM. #12. TACO: Will attempt BiPAP nightly if patient will tolerate but she does have underlying history and per family refuses to wear any PAP therapy. #13. Morbid Obesity: Weight loss and lifestyle changes encouraged. #14. DVT prophylaxis: Heparin. #15. 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 Patient's daughters would be her decision makers however if this was necessary. Discussed CODE status at length including difference between FULL code, DNR-CCA and DNR-CC status. Following discussions about the differences in these status, requested Full Code status. Advanced Care Planning Face to Face Time: 16 minutes. Charges/Coding Visit Charges Inpatient E&M: 00428 Init Hosp L3 Procedures Hospitalists Procedures: 68757 Advncd Care Plan 30 Min
--- NOTE | 2023-11-06 16:37 | ED.RN ---
BRANNON PLACED, PT FREQUENTLY INCONTINENT OF URINE, DOES NOT TOLERATE HEAD OF BEAD BEING LOWERED TO PROVIDE FREQUENT INCONTINENCE CARE.
--- OUTSIDE RECORDS SUMMARY | 2023-11-06 17:28 | XMS RPT_ITS | CCD ---
Author Name Unknown Address [address] [place] [address] Organization [facility] Care Team Providers Care Department Store Salesperson Name Role Phone LINO ZHU Unavailable Unavailable Leno Briggs Unavailable Unavailable LINO ZHU Unavailable Unavailable LINO ZHU Unavailable Unavailable Leno Briggs Unavailable Unavailable Leno Briggs MD Primary Care Provider [phone] Leno Briggs MD Primary Care Provider Leno Briggs MD Primary Care Provider Leno Briggs MD Primary Care Provider [phone] MARII VAIL DO Attending Unavailable PHYSICIAN, NONE Primary Care Unavailable LENO BRIGGS Primary Care Unavailable MADALYN DEGROOT Referring Unavailable EUFEMIA CHAPA Attending Unavailable Leno Briggs MD Primary Care Provider Leno Briggs MD Primary Care Provider [phone] Leno Briggs MD Primary Care Provider [phone] LENO BRIGGS Primary Care Unavailable MADALYN DEGROOT [...] Care Unavailable SHANTAL SERRANO Attending Unavailable STEPHANI RCOOKS Referring Unavailable BRIGITTE, LENO Primary Care Unavailable [...] 10-12-20 11 Mental Status Change, Dizziness, Unknown [facility] Repository (1 source) Contrast media; Translations: [CONTRAST DYE] Propensity to adverse reactions (disorder) [facility] Repository (20 sources) escitalopram; Translations: [ESCITALOPRAM] Drug Allergy 05-28-20 13 Other: See Comments [facility] Repository (20 sources) sertraline; Translations: [SERTRALINE HCL] Drug Allergy 10-12-20 11 Other: See Comments [facility] Repository (20 sources) sulfamethoxazole / trimethoprim; Translations: [SULFAMETHOXAZOLE-T RIMETHOPRIM] Drug Allergy 01-21-20 15 Itching [facility] Repository (20 sources) traMADol; Translations: [TRAMADOL] Drug Allergy 10-12-20 11 Other: See Comments, Dermatitis, Dizziness, Other [facility] Repository (20 sources) Garlic preparation; Translations: [GARLIC OIL] Drug Allergy 08-09-20 19 Other: See Comments [facility] Work Phone: (20 sources) oxybutynin; Translations: [OXYBUTYNIN] Drug Allergy 12-03-19 Other: See Comments [facility] Work Phone: (13 sources) traZODone Drug Allergy 01-15-20 Other [facility] (13 sources) Iodinated Contrast Media Drug Allergy 01-15-20 Other [facility] Medications Current Medications Medication Drug Class(es) Dates [...] 11-25-2016 Chronic Other aftercare (1 source) Other halfway (current) drug therapy; Translations: [Medication management] Onset: [...] (20 sources) Drug therapy finding; Translations: [Other computer terminal operator (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) drug therapy] Onset: 11-25-2016 01-04-2020 Episodic [...] Results Test Name Value Interpretation Reference Range [facility] it Vital Signs Date Time Vital Sign Value Performing Clinician Amy perdue 06-21-2023 14:28-0400 Body weight 137.44 kg Leno Briggs MD Work Phone: [facility] 06-21-2023 14:28-0400 Diastolic blood pressure 84 mm[Hg] Leno Briggs MD Work Phone: [facility] 06-21-2023 14:28-0400 Heart rate 80 /min Leno Briggs MD Work Phone: [facility] 06-21-2023 14:28-0400 Respiratory rate 14 /min Leno Briggs MD Work Phone: [facility] 06-21-2023 14:28-0400 Systolic blood pressure 136 mm[Hg] Leno Briggs MD Work Phone: [facility] 05-25-2023 11:49-0400 Diastolic blood pressure 77 mm[Hg] Samantha Nava MD Work Phone: [facility] Encounters Encounter Date Encounter Type Care Provider Facility Start: 09-19-2023 ambulatory Leno silva MD Work Phone: [facility] Procedures Date Procedure Procedure Detail Performing Clinician Start: 06-21-2023 Drug tst prsmv instr mnt chem analyzers pr date Leno Briggs MD Work Phone: Start: 05-25-2023 Colonoscopy Samantha Santillan ch, MD Work Phone: Start: 05-04-2023 Cyanocobalamin vitamin b-12 Shantal Serrano 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 - [employer] ARCHITECT Work Phone: Start: 11-04-2022 INFLUENZA SEASONAL QUADRIVALENT HIGH DOSE AGE 65+ Stephani Crooks PA-C Work Phone: Start: 05-18-2022 Brncdilat rspse spmt ry pre&post-brncdilat admn Stephani Crooks PA-C Work Phone: Plan of Treatment Date Care Activity Detail Author Start: 05-25-2028 Screening for malign ant neoplasm of colon [facility] Start: 08-31-2024 3 comp foot exam completed Diabetic Foot Exam [facility] Start: 08-31-2024 Covid-19 Vaccine ( season) Covid-19 Vaccine ( season) [facility] Immunizations Immunization Date Immunization Notes Care Provider Verito paulino 08-31-2023 influenza (HD-IIV4) vaccine, age 65+ yr, high dose, quadrivalent, PF (FLUZONE HIGH-DOSE) Leno Briggs MD Work Phone: [facility] 08-31-2023 pneumococcal (PCV20) vaccine, 20 valent (PREVNAR 20) Leno Briggs MD Work Phone: [facility] 11-04-2022 influenza, high-dose , quadrivalent vaccine (FLUZONE HIGH DOSE QUADRIVALENT) Stephani Crooks PA-C Work Phone: [facility] 11-04-2022 influenza virus vacc ine, unspecified formulation Samantha Nava MD Work Phone: [facility] 09-03-2021 influenza, high-dose , quadrivalent vaccine (FLUZONE HIGH DOSE QUADRIVALENT) Leno Briggs MD Work Phone: [facility] 03-17-2021 COVID-19 vaccine, fu ll dose (MODERNA) Leno Briggs MD Work Phone: [facility] 02-17-2021 COVID-19 vaccine, fu ll dose (MODERNA) Leno Briggs MD Work Phone: [facility] 07-31-2019 influenza, high dose seasonal, preservative-free Leno Briggs MD Work Phone: [facility] 09-13-2018 influenza, high dose seasonal, preservative-free Leno Briggs MD Work Phone: [facility] 12-12-2017 pneumococcal polysaccharide vaccine, 23 valent Leno Briggs MD Work Phone: [facility] 09-27-2017 influenza, injectabl e, quadrivalent, contains preservative Leno Briggs MD Work Phone: [facility] 08-27-2016 influenza, injectabl e, quadrivalent, contains preservative Leno Briggs MD Work Phone: [facility] Work Phone: 09-15-2015 influenza, high dose seasonal, preservative-free Leno Briggs MD Work Phone: [facility] Work Phone: 09-15-2015 pneumococcal conjuga te vaccine, 13 valent Leno Briggs MD Work Phone: [facility] Work Phone: 09-20-2014 influenza, seasonal, injectable Leno Briggs MD Work Phone: [facility] Work Phone: 03-27-2014 zoster vaccine, live Leno Briggs MD Work Phone: [facility] Work Phone: 10-24-2013 influenza virus vacc ine, unspecified formulation Leno Briggs MD Work Phone: [facility] 09-06-2012 influenza virus vacc ine, unspecified formulation Leno Briggs MD Work Phone: [facility] Work Phone: 06-21-2012 pneumococcal polysaccharide vaccine, 23 valent Leno Briggs MD Work Phone: [facility] Work Phone: 04-24-2012 pneumococcal polysaccharide vaccine, 23 valent Leno Briggs MD Work Phone: [facility] Work Phone: Payers Date Payer Category Payer Medicare UHC AARP MEDICAR E UHC AARP MEDICARE HMO [id number] 2021-Present [phone] [address] [address] [place] [address] O [id number] 2021 Medicare [id number] 2021 Private Health Insurance [id number] 1940 Unknown [id number] Medicare [id number] Social History Date Type Detail Facility Start: 08-15-2012 End: 04-05-2023 Tobacco smoking status NHIS Ex-smoker [facility] End: 09-22-1997 History of tobacco use Current smoker [facility] End: 09-22-1997 History of tobacco use Cigarette Smoker [facility] Start: 08-15-2012 End: 04-05-2023 Cigarettes smoked current (pack per day) - Reported 3 [facility] Start: 08-15-2012 End: 07-05-2022 Tobacco use and exposure Smokeless tobacco non-user [facility] Start: 10-13-2021 End: 08-31-2023 Alcohol intake Current non-drinker of alcohol (finding) [facility] Start: 1940 Sex Assigned At Female C [facility] Start: 03-12-2022 End: 05-30-2023 Exposure to SARS-CoV-2 (event) Not sure [facility] Work Phone: Start: 07-09-2022 End: 07-19-2022 Exposure to SARS-CoV-2 (event) Unable to assess [facility] Work Phone: Start: 04-01-2023 History SDOH Alcohol Frequency 1 [facility] Start: 04-01-2023 History SDOH Alcohol Std Drinks 0 [facility] Start: 04-01-2023 History SDOH Social Connections Phone 4 [facility] Start: 04-01-2023 History SDOH Social Connections Get Together 5 [facility] Start: 04-01-2023 History SDOH Social Connections Membership 2 [facility] Start: 04-05-2023 End: 05-30-2023 Alcohol intake Lifetime non-drinker (finding) [facility] Start: 1940 Sex Assigned At Not on file [facility] Start: 04-05-2023 End: 04-11-2023 Tobacco use panel [facility] Within the last year , have you been afraid of your partner or ex-partner? No [facility] Are you now , , , , never or living with a partner? [facility] How often to you hav e a drink containing alcohol? Never [facility] How many standard drinks containing alcohol do you have on a typical day? Patient does not drink [facility] How hard is it for y ou to pay for the very basics like food, housing, medical care, and heating Not very hard [facility] Do you feel stress - tense, restless, nervous, or anxious, or unable to sleep at night because your mind is troubled all the time - these days [OSQ] Only a little [facility] (I/We) worried wheth er (my/our) food would run out before (I/we) got money to buy more. Never true [facility] Start: 07-17-2021 Gender identity Identifies as female gender (finding) [facility] Start: 07-17-2021 Sexual orientation Heterosexual (torres parker) [facility] Medical Equipment Procedure Code Equipment Code Equipment [...] Miscellaneous Notes PA approved [facility] approval [phone] Daughter was notified approved not sure on cost of drug with insurance covering will need to call pharmacy to get info [place] [facility] Reviewed medication and rx was sent correctly 2 BID for 90 day supply is 360 tab, did submit a PA to see if cost can be lowered for 90 day supply [place] [facility] documented in this encounter [facility] 09-15-2023 Telephone encounter Note Left message notifying and to call back with which way they'd like to do the visit. [facility] 09-15-2023 Miscellaneous Notes Left message notifying and to call back with which way they'd like to do the visit. OK for virtual visit although we will not be able to facilitate memory testing over MyChart or phone. If they are wanting memory testing then visit will need to be in the office. Name of caller: Mariela Contact phone number: [phone] Relationship to Patient: Chandan Provider: Shantal Serrano [...] their call: Yes documented in this encounter [facility] [employer] 09-15-2023 Telephone encounter Note OK for virtual visit although we will not be able to facilitate memory testing over MyChart or phone. If they are wanting memory testing then visit will need to be in the office. [employer] [facility] 09-14-2023 Telephone encounter Note Name of caller: Mariela Contact phone number: [phone] Relationship to Patient: Daughter Provider: Shantal Serrano APRN, CNP Practice: [facility] Chief Complaint/Reason for Call: Mariela Hawley [...] business hours to return their call: Yes [facility] [employer] 09-02-2023 Miscellaneous Notes Daughter was notified Brandy [...] stable or not. documented in this encounter [facility] 08-31-2023 Note HNO ID: [id number] Author: Leno Briggs MD Service: ? Author [...] kidney disease) stage 3, GFR 30-59 ml/min ([facility]) 01/01/2019 COPD with chronic bronchitis ([facility]) 02/15/2017 Dr. Brito Current use of proton pump inhibitor 11/25/2016 Mg checked 11/2017 DDD (degenerative disc disease), cervical 07/29/2015 DDD (degenerative disc disease), lumbar 05/08/2013 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) 06/2015 a1c 6.5% Diabetic eye exam ([facility]) 03/15/2017 Last done: 10/24/2019 No Retinopathy Essential [...] TACO (obstructive sleep apnea) [facility] [employer] fx [phone] Pain due to total left knee replacement ([facility]) 06/08/2018 Personal history of colonic polyps 01/23/2016 Primary insomnia 03/16/2017 Brain [place] 06/26/2018 recommended Klonopin every other day for a week and then just as needed. Primary osteoarthritis of right knee 07/13/2016 Pulmonary nodules 03/03/2013 Incidental non-calcified nodules 10/09/2012. Repeat CT due 06/2013 Recurrent major depressive disorder, in full remission ([facility]) 08/17/2012 Rheumatoid arthritis(714.0) Spondylosis of lumbar region without myelopathy or radiculopathy 05/28/2015 Status post total left knee replacement 06/08/2018 Stress incontinence 11/21/[address] Armas. Thyroid nodule 11/15/2018 Stable on US 2017 Type 2 diabetes mellitus with stage 3 chronic kidney disease, without long-term current use of insulin ([facility]) 06/06/2017 Urge incontinence 11/21/2012 PAST SURGICAL HISTORY PAST SURGICAL HISTORY Procedure Laterality Date CHOLECYSTECTOMY HX 10/30/1997 COLONOSCOP W/ OR W/O BRS SPEC 11/29/12 Colonoscopy repeat 3 years COLONOSCOP W/ OR W/O BRS SPEC 01/28/16 Colonoscopy with mac COLONOSCOPY AND POLYPECTOMY ~2007 2 polyps COLONOSCOPY AND POLYPECTOMY ~2001 7 polyps COLONOSCOPY AND POLYPECTOMY 11/30/2011 CYSTOSCOPY 09/21/12 EGD 10/17/2011 Dr Negrete in [place] EGD W/O OR W/BRUSH/WASH 05/16/2014 EGD EGD [...] Mother Lipids Mother HIGH CHOLESTEROL Heart Father [place] Ischemic Heart Disease Father STROKE other (diabetic) [...] completed and revi (more content not included)... [facility] 08-23-2023 Miscellaneous Notes The following approved medication [...] Nel Cope LPN. documented in this encounter [facility] 08-16-2023 Telephone encounter Note Preferred contact number: [phone] Reason for Visit: Caller states she would like to cancel appointment due to transportation and would like a call to schedule. Please advise. Thank you Urgency of Appointment: na Medications in need of refill: na [facility] 08-16-2023 Miscellaneous Notes Preferred contact number: [phone] Reason for Visit: Caller states she would like to cancel appointment due to transportation and would like a call to schedule. Please advise. Thank you Urgency of Appointment: na Medications in need of refill: na documented in this encounter [facility] 07-05-2023 Telephone encounter Note Daughter wanted to [...] prior to picking up the medication: N/A [facility] 07-05-2023 Miscellaneous Notes Daughter wanted to know [...] the medication: N/A documented in this encounter [facility] 07-05-2023 Miscellaneous Notes Spoke with pt's daughter and information below given. Shelby Rogel LPN Left message for pt's daughter to contact office. Grecia Riley LPN Let family know the Aricept (donepezil) is prescribed by patient's proof carrier and will need to contact that office [...] Nel Cope LPN documented in this encounter [facility] 06-21-2023 Note HNO ID: [id number] Author: Leno Briggs MD Service: ? Author [...] life is less. She has been taking [place] 5/325 one twice a day since 04/2018 and up till now was doing well with this. Her daughter, (Mariela) who is her with her today, notes that it no longer controls the pain for as long of a time as it used to. She requires extra strength tylenol in between doses and even then it's not as well as when she takes a [place]. Patient has not been seen for routine since 10/2022. She is now seeing a proof carrier for her dementia. She was recently found [...] kidney disease) stage 3, GFR 30-59 ml/min ([facility]) 01/01/2019 COPD with chronic bronchitis ([facility]) 02/15/2017 Dr. Brito Current use of proton pump inhibitor 11/25/2016 Mg checked 11/2017 DDD (degenerative disc disease), cervical 07/29/2015 DDD (degenerative disc disease), lumbar 05/08/2013 Diabetes mellitus type 2 in obese ([facility]) 06/2015 a1c 6.5% Diabetic eye exam ([facility]) 03/15/2017 Last done: 10/24/2019 No Retinopathy Essential [...] TACO (obstructive sleep apnea) D[facility] f[facility] [phone] Pain due to total left knee replacement (HCC) 06/08/2018 Personal history of colonic polyps 01/23/2016 Primary insomnia 03/16/2017 Brain [place] 06/26/2018 recommended Klonopin every other day for a week and then just as needed. Primary osteoarthritis of right knee 07/13/2016 Pulmonary hypertension (HCC) 05/19/2022 Seeing pulm and cardio Pulmonary nodules 03/03/2013 Incidental non-calcified nodules 10/09/2012. Repeat CT due 06/2013 Recurrent major depressive disorder, in full remission ([facility]) 08/17/2012 Rheumatoid arthritis(714.0) Spondylosis of lumbar region without myelopathy or radiculopathy 05/28/2015 Status post total left knee replacement 06/08/2018 Stress incontinence 11/21/[address] Armas. Thyroid nodule 11/15/2018 Stable on 2017 Type 2 diabetes mellitus with stage 3 chronic kidney disease, without long-term current use of insulin ([facility]) 06/06/2017 Urge incontinence 11/21/2012 Previous Surgical History [...] CYSTOSCOPY 09/21/12 EGD 10/17/2011 Dr Negrete in [place] ESOPHAGOGASTRODUODENOSCOPY TRANSORAL DIAGNOSTIC 05/16/2014 EGD ESOPHAGOGASTRODUODENOSCOPY TRANSORAL DIAGNOSTIC 09/12/14 EGD ESOPHAGOGASTRODUODENOSCOPY TRANSORAL DIAGNOSTIC 01/06/2017 EGD ESOPHAGOGASTRODUODENOSCOPY TRANSORAL D (more content not included)... [facility] 06-21-2023 History of Present illness Narrative Chief [...] life is less. She has been taking [place] 5/325 one twice a day since 04/2018 and up till now was doing well with this. Her daughter, (Mariela) who is her with her today, notes that it no longer controls the pain for as long of a time as it used to. She requires extra strength tylenol in between doses and even then it's not as well as when she takes a [place]. Patient has not been seen for routine since 10/2022. She is now seeing a proof carrier for her dementia. She was recently found [...] 05/08/2013 Diabetes mellitus type 2 in obese ([facility]) 06/2015 a1c 6.5% Diabetic eye exam ([facility]) 03/15/2017 Last done: 10/24/2019 No Retinopathy Essential [...] TACO (obstructive sleep apnea) D[facility] f[facility] [phone] Pain due to total left knee replacement ([facility]) 06/08/2018 Personal history of colonic polyps 01/23/2016 Primary insomnia 03/16/2017 Brain center 06/26/2018 recommended Klonopin every other day for a week and then just as needed. Primary osteoarthritis of right knee 07/13/2016 Pulmonary hypertension (HCC) 05/19/2022 Seeing pulm and cardio Pulmonary nodules 03/03/2013 Incidental non-calcified nodules 10/09/2012. Repeat CT due 06/2013 Recurrent major depressive disorder, in full remission ([facility]) 08/17/2012 Rheumatoid arthritis(714.0) Spondylosis of lumbar region without myelopathy or radiculopathy 05/28/2015 Status post total left knee replacement 06/08/2018 Stress incontinence 11/21/[address] Armas. Thyroid nodule 11/15/2018 Stable on 2017 Type 2 diabetes mellitus with stage 3 chronic kidney disease, without long-term current use of insulin ([facility]) 06/06/2017 Urge incontinence 11/21/2012 Previous Surgical History [...] CYSTOSCOPY 09/21/12 EGD 10/17/2011 Dr Negrete in [place] ESOPHAGOGASTRODUODENOSCOPY TRANSORAL DIAGNOSTIC 05/16/2014 EGD ESOPHAGOGASTRODUODENOSCOPY TRANSORAL DIAGNOSTIC 09/12/14 EGD ESOPHAGOGASTRODUODENOSCOPY TRANSORAL DIAGNOSTIC 01/06/2017 EGD ESOPHAGOGASTRODUODENOSCOPY TRANSORAL DIAGNOSTIC 07/21/2020 EGD REMOVE CATARACT, INSERT LENS, INTRACAPSUL Bilateral 2008 Family History FAMILY HISTORY Problem Relation Age of Onset Hypertension Mother Heart Mother Lipids Mother HIGH CHOLESTEROL Heart Father [place] Ischemic Heart Disease Father STROKE other (diabetic) Father Diabetes Sister Diabetes Sister Breast Cancer Sister Patient Allergies ALLERGIES Allergen Reactions Bactrim [Sulfametho* Itching Codeine Mental Status Change Garlic Oil Other: See Comments Lexapro [Escitalopr* Other: See Comments rapid heart rate Oxybutynin Other: See Comments suggerst by [employer] to stop since it can add to [...] DX E11.22 Insulin No) Walker (ULTRA-LIGHT ROLLATOR) [facility] Rolator with seat. Dx: J44.9, M54.9, [...] which included preparing to see the patient, [id number] patient care, completing clinical documentation, performing a medically appropriate examination, counseling and educating the patient/family/caregiver and ordering medications, tests, or procedures. Leno Briggs MD documented in this encounter [facility] 06-20-2023 Miscellaneous Notes Left message for pt's daughter that Stephani did review pt's chart and advised that pt does need to see Dr Briggs instead of her tomorrow. Advised pt is scheduled at 2:20 tomorrow 06/[address] Briggs. Daughter had called earlier to reschedule appointment that pt had canceled. Grecia Riley LPN documented in this encounter [facility] 05-30-2023 History of Present illness Narrative COLORECTAL SURGERY OFFICE VISIT PATIENT NAME: Robbin Singh : 1940 TODAY'S DATE: 05/30/2023 Chief Complaint Patient presents with Results [facility] # [phone](Mariela, daughter)Discuss results of colonoscopy done 05/25/23 Patient [...] stated that they are currently in the [facility]. If the patient is a minor, permission [...] Patient has dementia and is daughter is roofing machine operator. She noticed feces inside her vagina. She [...] had multiple polyps. Saw a surgeon through [facility] who recommended colonoscopy, however this was cancelled [...] 05/25/2023 Performed by Samantha Nava MD at [address] ENDOSCOPY Current Outpatient Medications on File [...] Take 600 mg by mouth daily. HYDROcodone-acetaminophen ([place]) 5-325 MG tablet Take 1 tablet by [...] tablet Take 1 tablet by mouth daily. [place]-3 Fatty Acids (FISH OIL OMEGA-3 PO) Take [...] judgement RECTUM: deferred Exam chaperoned by female assistant signal maintainer. IMAGING: Per chart rveiew She underwent a CT scan at [facility] on 12/31/2022 with findings of mid sigmoid [...] was performed when available. Samantha Nava MD [facility] Colorectal Surgery [address] [place] [address], [place] [address] [address] p [phone] f [phone] documented in this encounter [facility] 05-25-2023 Note Patient: Robbin niño Procedure Summary Date: 05/25/23 Room / Location: [address] ENDO SEC 1 / [facility] Gastroenterology Anesthesia Start: 1042 Anesthesia Stop: 1130 [...] once all PACU criteria has been met. [facility] 05-25-2023 Note Patient: Robbin niño Procedure Summary Date: 05/25/23 Room / Location: [facility] ENDO SEC 1 / ARCH [...] opportunity for questions and acknowledgement of understanding. [facility] 05-25-2023 Note Endoscopy Center- [facility] Patient Name: Robbin Singh Procedure Date: 05/25/2023 10:43 AM Gender: Female Date of : 1940 Age: 82 Admit Type: Outpatient Note Status: Finalized Endoscopist: Samantha aNva MD, [id number] Procedure: Colonoscopy Indications: Follow-up of diverticulitis, Colovaginal [...] immediate complications. Procedure Code(s): --- Professional --- 98511, Colonoscopy, flexible; with removal of tumor(s), polyp(s), or other lesion(s) by snare technique --- Technical --- 06045, Colonoscopy, flexible; with removal of tumor(s), polyp(s), or other lesion(s) by snare technique CPT copyright 2021 [employer]. All rights reserved. The codes documented in this report are preliminary and upon english faculty member review may be revised to meet current compliance requirements. Attending Participation: I personally performed the entire procedure. Samantha Nava MD 05/25/2023 11:25:44 AM This report has been signed electronically. Number of Addenda: 0 Note Initiated On: 05/25/2023 10:43 AM [facility] 05-25-2023 Note Formatting of this n ote might be different from the original. [facility] Name: Robbin Singh Procedure Date: 05/25/2023 10:43 AM Gender: Female Date of : 1940 Age: 82 Admit Type: Outpatient Note Status: Finalized Endoscopist: Samantha Nava MD, [id number] Procedure: Colonoscopy Indications: Follow-up of diverticulitis, Colovaginal [...] immediate complications. Procedure Code(s): --- Professional --- 05577, Colonoscopy, flexible; with removal of tumor(s), polyp(s), or other lesion(s) by snare technique --- Technical --- 84060, Colonoscopy, flexible; with removal of tumor(s), polyp(s), or other lesion(s) by snare technique CPT copyright 2021 [employer]. All rights reserved. The codes documented in this report are preliminary and upon english faculty member review may be revised to meet current compliance requirements. Attending Participation: I personally performed the entire procedure. Samatnha Nava MD 05/25/2023 11:25:44 AM This report has been signed electronically. Number of Addenda: 0 Note Initiated On: 05/25/2023 10:43 AM [facility] 05-25-2023 Note Formatting of this n ote might be different from the original. [facility] Name: Robbin Singh Procedure Date: 05/25/2023 10:43 AM Gender: Female Date of : 1940 Age: 82 Admit Type: Outpatient Note Status: Finalized Endoscopist: Samantha Nava MD, [id number] Procedure: Colonoscopy Indications: Follow-up of diverticulitis, Colovaginal [...] immediate complications. Procedure Code(s): --- Professional --- 66424, Colonoscopy, flexible; with removal of tumor(s), polyp(s), or other lesion(s) by snare technique --- Technical --- 26037, Colonoscopy, flexible; with removal of tumor(s), polyp(s), or other lesion(s) by snare technique CPT copyright 2021 [employer]. All rights reserved. The codes documented in this report are preliminary and upon english faculty member review may be revised to meet current compliance requirements. Attending Participation: I personally performed the entire procedure. Samantha Nava MD 05/25/2023 11:25:44 AM This report has been signed electronically. Number of Addenda: 0 Note Initiated On: 05/25/2023 10:43 AM [facility] 05-25-2023 Miscellaneous Notes [facility] Patient Name: Robbin Singh Procedure Date: 05/25/2023 10:43 AM Gender: Female Date of : 1940 Age: 82 Admit Type: Outpatient Note Status: Finalized Endoscopist: Samantha Nava MD, [id number] Procedure: Colonoscopy Indications: Follow-up of diverticulitis, Colovaginal [...] immediate complications. Procedure Code(s): --- Professional --- 66569, Colonoscopy, flexible; with removal of tumor(s), polyp(s), or other lesion(s) by snare technique --- Technical --- 91612, Colonoscopy, flexible; with removal of tumor(s), polyp(s), or other lesion(s) by snare technique CPT copyright 2021 [employer]. All rights reserved. The codes documented in this report are preliminary and upon english faculty member review may be revised to meet current compliance requirements. Attending Participation: I personally performed the entire procedure. Samantha Nava MD 05/25/2023 11:25:44 AM This report has been signed electronically. Number of Addenda: 0 Note Initiated On: 05/25/2023 10:43 AM documented in this encounter [facility] 05-25-2023 Note Endoscopy History an d Physical [...] mg by mouth daily. Past Week HYDROcodone-acetaminophen ([place]) 5-325 MG tablet Take 1 tablet by [...] Take 1 tablet by mouth daily. 05/24/2023 [place]-3 Fatty Acids (FISH OIL OMEGA-3 PO) Take [...] none HEMATOLOGIC/LYMPHATIC: N (more content not included)... [facility] 05-25-2023 Note Patient: Robbin niño Procedure Information Date/Time: 05/25/23 0900 Procedure: COLONOSCOPY Location: [address] ENDO SEC 1 / ARCH Gastroenterology [...] found for this or any previous visit. [facility] 05-25-2023 History and physical note Endoscopy History [...] mg by mouth daily. Past Week HYDROcodone-acetaminophen ([place]) 5-325 MG tablet Take 1 tablet by [...] Take 1 tablet by mouth daily. 05/24/2023 [place]-3 Fatty Acids (FISH OIL OMEGA-3 PO) Take [...] understanding and willingness to proceed with plan. [facility] Phone: 05-25-2023 History and physical note Endoscopy [...] mg by mouth daily. Past Week HYDROcodone-acetaminophen ([place]) 5-325 MG tablet Take 1 tablet by [...] Take 1 tablet by mouth daily. 05/24/2023 [place]-3 Fatty Acids (FISH OIL OMEGA-3 PO) Take [...] proceed with plan. documented in this encounter [facility] 05-17-2023 History of Present illness Narrative Interval [...] Diet Healthy Nutrition for Older Adults - [facility] Injury Prevention/Home Safety [facility] Home Safety Checklist Hearing/Vision Hearing Loss and Older Adults Medications Medication Safety/Dispensers Sleep Getting a Good Night's Sleep ([facility]) Sleep Hygiene Day/Night Reversal Advanced Directives Healthcare Power of Airframe And Power Plant Mechanic Living Will Recommend Financial Power of Airframe And Power Plant Mechanic Elder Law Airframe And Power Plant Mechanic List [facility] Advanced Directives Information Guide Personal Care Personal Care Tips Bathing Tips Dressing Tips Images from the original note were not included. 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 Health Care Power of Airframe And Power Plant Mechanic, Financial Power of Airframe And Power Plant Mechanic, and Living Will Educational information and handouts [...] 03/2023 for memory loss x 1 year, [place] 19 (MIS 2), CDT 5, PHQ 1, [...] Take 600 mg by mouth daily. HYDROcodone-acetaminophen ([place]) 5-325 MG tablet Take 1 tablet by [...] tablet Take 1 tablet by mouth daily. [place]-3 Fatty Acids (FISH OIL OMEGA-3 PO) Take [...] Diagnosis Date COPD (chronic obstructive pulmonary disease) ([facility]) Depression Pulmonary hypertension ([facility]) Social History Tobacco Use Smoking status: Former Packs/day: 2.00 Types: Cigarettes Quit date: 1996 Years since quittin.5 Smokeless tobacco: Not on file Substance Use Topics Alcohol use: Never Past Surgical History: Procedure Laterality Date COLONOSCOPY N/A 05/25/2023 Performed by Samnatha Nava MD at [facility] [address] ENDOSCOPY Family History Problem Relation [...] >20.0 05/04/2023 Lab Results Component Value Date [id number] 05/04/2023 No results found for: RPR [...] for the patient documented in this encounter [facility] 05-17-2023 Instructions FILEMON Shepherd CNP - 05/17/2023 [...] and social activity - [facility] Naked Sneakers. Recommend routines, schedules, and organization. Recommend [...] for virtual visit. documented in this encounter [facility] 04-11-2023 Miscellaneous Notes TC to patients daughter with no answer. Left VM to return call to office to receive update. JUSTINE Gupta Please reach out to patient's daughter. Let her know we refilled Robbin's [place], however, she No Showed to her appt [...] of last office visit in primary care: [facility] 12/23/22 No appointment scheduled Last 2 Encounter Wt Readings: Date: Wt: 03/18/2023 127.5 kg (281 lb) 02/21/2023 129.7 kg (286 lb) Please advise. Thank you. JUSTINE Gupta documented in this encounter [facility] 04-11-2023 History of Present illness Narrative COLORECTAL [...] Patient has dementia and is daughter is roofing machine operator. She noticed feces inside her vagina. She [...] Take 600 mg by mouth daily. HYDROcodone-acetaminophen ([place]) 5-325 MG tablet Take 1 tablet by [...] tablet Take 1 tablet by mouth daily. [place]-3 Fatty Acids (FISH OIL OMEGA-3 PO) Take [...] judgement RECTUM: deferred Exam chaperoned by female assistant signal maintainer. IMAGING: Per chart rveiew She underwent a CT scan at [facility] on 12/31/2022 with findings of mid sigmoid [...] was performed when available. Samantha Nava MD [facility] Colorectal Surgery [address] [facility], [address] [place] [id number] p [phone] f [phone] documented in this encounter [facility] 04-05-2023 Note Mrs. Singh was see n [...] Return in 4-6 weeks for summary visit. [facility] 04-05-2023 History of Present illness Narrative Images from the original note were not included. [facility] [address] [place] [address] Dept: [phone] Dept Loc: [phone] Visit type: [facility] Initial Assessment Visit Date: 04/11/2023 Reason [...] 82 y.o. female who presents to the [facility] for a comprehensive geriatric assessment. The patient is new to me. Referred for dementia, having nightmares, on Donepezil at , previously diagnosed with dementia. Family helping with pt's care. PMH: anxiety, depression, OA multiple joints, leg edema, CHF, CKD 3, COPD, DDD cervical and lumbar, DM2, HTN, [place], frequent falls, interstitial cystitis, urinary incontinence, neuropathy, [...] Take 600 mg by mouth daily. HYDROcodone-acetaminophen ([place]) 5-325 MG tablet Take 1 tablet by [...] tablet Take 1 tablet by mouth daily. [place]-3 Fatty Acids (FISH OIL OMEGA-3 PO) Take [...] Normocephalic. Comments: No glasses. No hearing aids. [place] at times. Right Ear: External ear normal. [...] found for: FOLATE No results found for: [id number] No results found for: RPR Testing: The following tests were performed at today's visit and scanned in to the chart: MoCA score: 19, MIS score: 2 Clock drawing score: 5 PHQ-9 score: 1 SIN score: not done I independently reviewed the [place] Cognitive Assessment from 04/11/2023. 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 Activities: nephew and great granddaughter come to visit once per week, watches tv Exercise: none Finances: close to $2000 in income Healthcare Power of Airframe And Power Plant Mechanic: No Financial Power of Airframe And Power Plant Mechanic: No Living Will: No Guardian: No Code [...] Diet Healthy Nutrition for Older Adults - [facility] Injury Prevention/Home Safety [facility] Home Safety Checklist Hearing/Vision Hearing Loss and Older Adults Medications Medication Safety/Dispensers Sleep Getting a Good Night's Sleep ([facility]) Sleep Hygiene Day/Night Reversal Advanced Directives Healthcare Power of Airframe And Power Plant Mechanic Living Will Recommend Financial Power of Airframe And Power Plant Mechanic Elder Law Airframe And Power Plant Mechanic List [facility] Advanced Directives Information Guide Personal Care Personal Care Tips Bathing Tips Dressing Tips documented in this encounter [facility] 04-05-2023 Instructions Shantal Serrano APRN - [place]INE [...] for summary visit. documented in this encounter [facility] 04-01-2023 Note HNO ID: [id number] Author: Leno Briggs MD Service: ? Author Type: Physician Type: Progress Notes Filed: 04/04/2023 1:02 PM Note Text: Appt cancelled since patient actually needed seen in office for a routine. [facility] 04-01-2023 History of Present illness Narrative Appt cancelled since patient actually needed seen in office for a routine. documented in this encounter [facility] 03-16-2023 Miscellaneous Notes Patient phones requesting refills as follows: Requested Prescriptions Pending Prescriptions Disp Refills metFORMIN ER (GLUCOPHAGE XR) 500 mg 24 hr tablet 180 tablet 1 Sig: Take 2 tablets by mouth daily with dinner. TAVO 12/23/2022 NOV 04/01/2023 Please review and advise. Atiya Deluna LPN documented in this encounter [facility] 03-11-2023 Miscellaneous Notes Faxed. Antionette Coleman MA Order printed and signed and ready to fax Ok to refer? Cristina Garcia Ma documented in this encounter [facility] 03-09-2023 Miscellaneous Notes The following approved medication [...] Shelby Rogel LPN documented in this encounter [facility] 03-09-2023 Miscellaneous Notes The following approved medication [...] would help her sleep. Contact patient at [phone]. Joanne Rogel Pss documented in this encounter [facility] 02-21-2023 Note HNO ID: [id number] Author: Radha Baldwin APRN.WEBMETHODS ARCHITECT Service: ? Author Type: Nurse Practitioner Type: Progress Notes Filed: 02/22/2023 12:47 PM Note Text: [facility] Card[facility] ([facility]) [address] [place] [id number] OUTPATIENT VISIT February 21, 2023 2:00 PM [...] kidney disease) stage 3, GFR 30-59 ml/min ([facility]) 01/01/2019 COPD with chronic bronchitis ([facility]) 02/15/2017 Dr. Brito Current use of proton pump inhibitor 11/25/2016 Mg checked 11/2017 DDD (degenerative disc disease), cervical 07/29/2015 DDD (degenerative disc disease), lumbar 05/08/2013 Diabetes mellitus type 2 in obese ([facility]) 06/2015 a1c 6.5% Diabetic eye exam ([facility]) 03/15/2017 Last done: 10/24/2019 No Retinopathy Essential [...] TACO (obstructive sleep apnea) [facility] fx [phone] Pain due to total left knee replacement [...] Recurrent major depressive disorder, in full remission ([facility]) 08/17/2012 Rheumatoid arthritis(714.0) Spondylosis of lumbar region without myelopathy or radiculopathy 05/28/2015 Status post total left knee replacement 06/08/2018 Stress incontinence 11/21/[address] Armas. Thyroid nodule 11/15/2018 Stable on 2017 Type 2 diabetes mellitus with stage 3 chronic kidney disease, without long-term current use of insulin ([facility]) 06/06/2017 Urge incontinence 11/21/2012 PAST SURGICAL HISTORY [...] CYSTOSCOPY 09/21/12 EGD 10/17/2011 Dr Negrete in [place] ESOPHAGOGASTRODUODENOSCOPY TRANSORAL DIAGNOS (more content not included)... [facility] 02-18-2023 Instructions Lauren Gruber RN - 02/18/2023 [...] If you do not have a responsible regional driver (family member or friend) with you [...] exam. 2 10/2019 documented in this encounter [facility] 02-14-2023 Miscellaneous Notes Patient has been identified [...] to [facility] documented in this encounter [facility] 02-14-2023 Miscellaneous Notes The following approved medication [...] Last refill; 01/2023 documented in this encounter [facility] 02-11-2023 Miscellaneous Notes This patient gave consent [...] seven days of my reply. See the [facility] message reply for my assessment and plan. I spent a total of 5 minutes reviewing the patient's prior medical records and current request for medical advice, prescribing medications or ordering tests (if applicable), replying to the patient, and documenting the encounter. Eufemia Chapa APRN.CARINE documented in this encounter [facility] 02-10-2023 Miscellaneous Notes TAVO 12/23/22 with RR Appointment scheduled 03/11/23 with JAX Please advise. Thank you. MODESTO Gupta documented in this encounter [facility] 02-09-2023 History and physical note COLORECTAL SURGERY NEW VIRTUAL VISIT I have communicated my name and active licensure. The patient's identity and physical location were verified at the time of this visit. Either the patient or their legal indirect sales representative has been informed of the [...] Patient has dementia and is daughter is roofing machine operator. She noticed feces inside her vagina. She [...] thinks this is mostly incontinence of urine. 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 Brito Current use of proton pump inhibitor 11/25/2016 Mg checked 11/2017 DDD (degenerative disc disease), cervical 07/29/2015 DDD (degenerative disc disease), lumbar 05/08/2013 Diabetes mellitus type 2 in obese ([facility]) 06/2015 a1c 6.5% Diabetic eye exam ([facility]) 03/15/2017 Last done: 10/24/2019 No Retinopathy Essential [...] TACO (obstructive sleep apnea) DME [facility] fx [phone] Pain due to total left knee replacement [...] disease, without long-term current use of insulin ([facility]) 06/06/2017 Urge incontinence 11/21/2012 PAST SURGICAL HISTORY [...] CYSTOSCOPY 09/21/12 EGD 10/17/2011 Dr Negrete in [place] ESOPHAGOGASTRODUODENOSCOPY TRANSORAL DIAGNOSTIC 05/16/2014 EGD ESOPHAGOGASTRODUODENOSCOPY TRANSORAL [...] No) 1 Kit 0 Walker (ULTRA-LIGHT ROLLATOR) [facility] Rolator with seat. 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 documented in this encounter [facility] 02-03-2023 Miscellaneous Notes Patient phones requesting refills as follows: Patient comment: Is it possible to have this sent to [facility] in [place], for maybe a2-week supply, and the normal 90-day refill to [facility]? I thought this was on auto-delivery through them but they haven't sent it Requested Prescriptions Pending Prescriptions Disp Refills losartan (COZAAR) 50 mg tablet 90 tablet 1 Sig: Take 1 tablet by mouth once daily. TAVO-12/23/22 Labs-11/04/22 NOV-03/11/23 Med filled 06/14/22 Please review and advise. Brianne Chiang LPN documented in this encounter [facility] 01-31-2023 Miscellaneous Notes [facility] Rx sent by PCP on 01/30 Charity Das APRN.WEBMETHODS ARCHITECT documented in this encounter [facility] 01-28-2023 Miscellaneous Notes This patient gave consent [...] seven days of my reply. See the [facility] message reply for my assessment and plan. I spent a total of 5 minutes reviewing the patient's prior medical records and current request for medical advice, prescribing medications or ordering tests (if applicable), replying to the patient, and documenting the encounter. Eufemia Chpaa APRN.CARINE documented in this encounter [facility] 01-26-2023 Miscellaneous Notes Please see TEL ENC for today regarding RN's call to pt to schedule nurse visit for urine specimen collection. Jason Mcfadden RN Discussed with Eufemia Chapa DNP. Recommend nurse visit for straight cath urine specimen. Patient has colovesical fistula and clean catch is not recommended. Eloisa Ferrara APRN.CNP documented in this encounter [facility] 01-26-2023 Miscellaneous Notes RN's call to pt to schedule office visit for urine specimen collection went to [facility]. RN left message requesting return call from pt to schedule nurse visit. Call terminated. documented in this encounter [facility] 01-25-2023 Note HNO ID: [id number] Author: Leesa Ramirez MD Service: ? Author Type: Physician Type: Progress Notes Filed: 01/25/2023 3:26 PM Note Text: Robbin Torres [place] 1940 REFERRING PHYSICIAN: Eufemia Chapa APRN.CNP CHIEF COMPLAINT: Consult (Colovesical fistula) HPI: The patient is a 82 year old female presents with colovesical fistula. She has noted symptoms for about two months. She underwent a CT scan at [facility] on 12/31/2022 with findings of mid sigmoid diverticulitis with probable fistula to the adjacent urinary bladder. Associated colonic wall thickening and adjacent stranding noted. There is under distension of the urinary bladder with significant wall edema and adjacent inflammatory change. Patient had been scheduled for an appointment at [facility] in [place], but the family deferred this and preferred to be seen in [place]. The patient had also been scheduled for an appointment at [facility] [facility], but deferred this. The patient has been [...] kidney disease) stage 3, GFR 30-59 ml/min ([facility]) 01/01/2019 COPD with chronic bronchitis ([facility]) 02/15/2017 Dr. Brito Current use of proton pump inhibitor 11/25/2016 Mg checked 11/2017 DDD (degenerative disc disease), cervical 07/29/2015 DDD (degenerative disc disease), lumbar 05/08/2013 Diabetes mellitus type 2 in obese ([facility]) 06/2015 a1c 6.5% Diabetic eye exam ([facility]) 03/15/2017 Last done: 10/24/2019 No Retinopathy Essential [...] 01/01/2019 Mechanical back pain 12/08/[address] Queazda for pain management. Medicare annual wellness visit, subsequent 12/05/2017 Medicare part B: 07/08/2005 last done:01/04/2020 Mixed hyperlipidemia 08/17/2012 Neuropathic pain 12/08/2012 Obesity, Class III, BMI >= 40 06/26/2018 TACO (obstructive sleep apnea) [facility] [employer]x [phone] Pain due to total left knee replacement [...] Recurrent major depressive disorder, in full remission ([facility]) 08/17/2012 Rheumatoid arthritis(714.0) Spondylosis of lumbar region without myelopathy or radiculopathy 05/28/2015 Status post total left knee replacement 06/08/2018 Stress incontinence 11/21/[address] Armas. Thyroid nodule 11/15/2018 Stable on 2017 Type 2 diabetes mellitus with stage 3 chronic kidney disease, without long-term current use of insulin ([facility]) 06/06/2017 Urge incontinence 11/21/2012 PAST SURGICAL HISTORY [...] CYSTOSCOPY 09/21/12 EGD 10/17/2011 Dr Negrete in [place] ESOPHAGOGASTRODUODENOSCOPY TRANSORAL DIAGNOSTIC 05/16/2014 EGD ESOPHAGOGASTRODUODENOSCOPY TRANSORAL [...] mononitrate ER ( (more content not included)... [facility] 01-25-2023 History of Present illness Narrative Robbin Singh 1940 REFERRING PHYSICIAN: Eufemia Chapa APRN.WEBMETHODS ARCHITECT CHIEF COMPLAINT: Consult (Colovesical fistula) HPI: The patient is a 82 year old female presents with colovesical fistula. She has noted symptoms for about two months. She underwent a CT scan at [facility] on 12/31/2022 with findings of mid sigmoid diverticulitis with probable fistula to the adjacent urinary bladder. Associated colonic wall thickening and adjacent stranding noted. There is under distension of the urinary bladder with significant wall edema and adjacent inflammatory change. Patient had been scheduled for an appointment at [facility] in [place], but the family deferred this and preferred to be seen in [place]. The patient had also been scheduled for an appointment at [facility], but deferred this. The patient has been [...] kidney disease) stage 3, GFR 30-59 ml/min ([facility]) 01/01/2019 COPD with chronic bronchitis ([facility]) 02/15/2017 Dr. Brito Current use of proton pump inhibitor 11/25/2016 Mg checked 11/2017 DDD (degenerative disc disease), cervical 07/29/2015 DDD (degenerative disc disease), lumbar 05/08/2013 Diabetes mellitus type 2 in obese ([facility]) 06/2015 a1c 6.5% Diabetic eye exam ([facility]) 03/15/2017 Last done: 10/24/2019 No Retinopathy Essential [...] TACO (obstructive sleep apnea) D[facility] [employer] fx [phone] Pain due to total left knee replacement (HCC) 06/08/2018 Personal history of colonic polyps 01/23/2016 Primary insomnia 03/16/2017 Brain center 06/26/2018 recommended Klonopin every other day for a week and then just as needed. Primary osteoarthritis of right knee 07/13/2016 Pulmonary hypertension ([facility]) 05/19/2022 Seeing pulm and cardio Pulmonary nodules 03/03/2013 Incidental non-calcified nodules 10/09/2012. Repeat CT due 06/2013 Recurrent major depressive disorder, in full remission ([facility]) 08/17/2012 Rheumatoid arthritis(714.0) Spondylosis of lumbar region [...] CYSTOSCOPY 09/21/12 EGD 10/17/2011 Dr Negrete in [place] ESOPHAGOGASTRODUODENOSCOPY TRANSORAL DIAGNOSTIC 05/16/2014 EGD ESOPHAGOGASTRODUODENOSCOPY TRANSORAL [...] DX E11.22 Insulin No) Walker (ULTRA-LIGHT ROLLATOR) [facility] [place] with seat. Dx: J44.9, M54.9, [...] Mother Lipids Mother HIGH CHOLESTEROL Heart Father [place] Ischemic Heart Disease Father STROKE other (diabetic) Father Diabetes Sister Diabetes Sister Breast Cancer Sister The review of systems data was entered by the nurse and reviewed by hi Nursing Notes: Beata Doshi RN 01/25/2023 1:26 [...] Leesa Ramirez MD documented in this encounter [facility] 01-25-2023 Nurse Note REVIEW OF SYSTEMS: General: [...] Beata Doshi RN documented in this encounter [facility] 01-19-2023 Miscellaneous Notes Patient has been identified [...] Shelby Rogel LPN documented in this encounter [facility] 01-18-2023 Miscellaneous Notes Unfortunately, she has to see colorectal. I know she was given a name for a colorectal surgeon in [place] so she can call that office to see if Robbin can be seen sooner there. If she has more questions, I can call her. Eufemia Chapa APRN.WEBMETHODS ARCHITECT Daughter Mariela calling to see if waiting till 03/09/23 to see Colorectal at is okay. Pt having increased pain in the vagina area due to skin is raw and now getting blood when she wipes. When urinating getting increased pain. Pt is cleaning the area after going but the Aquaphor is not working. Please advise daughter. Shelby Rogel LPN documented in this encounter [facility] 01-14-2023 Miscellaneous Notes Patient has been identified [...] 03/2023 Last refill: documented in this encounter [facility] 01-06-2023 Miscellaneous Notes Et patient or daughter know pain med refill sent to [facility] Briggs here is her Mychart note. Patient Comment: This was supposed to be back-ordered from [facility] because they were out of stock, so she got them from [employer], but it's time for another refill so [...] Shelby Rogel LPN documented in this encounter [facility] 01-06-2023 Note HNO ID: [id number] Author: Eufemia Chapa APRN.WEBMETHODS ARCHITECT Service: ? Author Type: Nurse Practitioner Type: [...] was treated. Recently diagnosed with diverticulitis at [facility] ER visit 12/31/22. 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: Date:2012; Last Mammogram: Her [...] CYSTOSCOPY 09/21/12 EGD 10/17/2011 Dr Negrete in [place] ESOPHAGOGASTRODUODENOSCOPY TRANSORAL DIAGNOSTIC 05/16/2014 EGD ESOPHAGOGASTRODUODENOSCOPY TRANSORAL DIAGNOSTIC 09/12/14 EGD ESOPHAGOGASTRODUODENOSCOPY TRANSORAL DIAGNOSTIC 01/06/2017 EGD ESOPHAGOGASTRODUODENOSCOPY TRANSORAL DIAGNOSTIC 07/21/2020 EGD REMOVE CATARACT, INSERT LENS, INTRACAPSUL Bilateral 2008 PAST MEDICAL HISTORY Diagnosis Date Anxiety and depression 01/01/2019 Arthritis of shoulder region, degenerative right Corticosteroid 09/20/14, left corticosteroid 10/07/14 Arthritis, multiple joint involvement 01/16/2018 Advised tylenol Arthritis (more content not included)... [facility] 01-06-2023 Instructions Eufemia Chapa APRN.WEBMETHODS ARCHITECT - 01/06/2023 2:02 PM EST Consult colorectal [...] protect the skin. Avoid using a chairman to dry the vulvar area. Use cool gel packs on the vulva. documented in this encounter [facility] 01-06-2023 History of Present illness Narrative Female [...] was treated. Recently diagnosed with diverticulitis at [facility] ER visit 12/31/22. 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 Brito Current use of proton pump inhibitor 11/25/2016 Mg checked 11/2017 DDD (degenerative disc disease), cervical 07/29/2015 DDD (degenerative disc disease), lumbar 05/08/2013 Diabetes mellitus type 2 in obese ([facility]) 06/2015 a1c 6.5% Diabetic eye exam ([facility]) 03/15/2017 Last done: 10/24/2019 No Retinopathy Essential [...] TACO (obstructive sleep apnea) [facility] [phone] Pain due to total left knee replacement (HCC) 06/08/2018 Personal history of colonic polyps 01/23/2016 Primary insomnia 03/16/2017 Brain [place] 06/26/2018 recommended Klonopin every other day for a week and then just as needed. Primary osteoarthritis of right knee 07/13/2016 Pulmonary hypertension (HCC) 05/19/2022 Seeing pulm and cardio Pulmonary nodules 03/03/2013 Incidental non-calcified nodules 10/09/2012. Repeat CT due 06/2013 Recurrent major depressive disorder, in full remission ([facility]) 08/17/2012 Rheumatoid arthritis(714.0) Spondylosis of lumbar region without myelopathy or radiculopathy 05/28/2015 Status post total left knee replacement 06/08/2018 Stress incontinence 11/21/[address] Armas. 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 [place] [place] with [place]. Dx: J44.9, M54.9, [...] rate Oxybutynin Other: See Comments suggerst by [employer] to stop since it can add to [...] and ROS obtained by others. Eufemia Chapa APRN.WEBMETHODS ARCHITECT Automobile Upholsterer offered: Patient accepts, visit chaperoned by Ovidio [...] Colovesical fistula - Per discharge instructions from [facility], a consult has been placed with Dr. [...] Eufemia Chapa APRN.CARINE documented in this encounter [facility] 01-01-2023 Note . MICRO - Microbiology PROCEDURE: [...] Locations *1: This test was performed at: [facility], [address] [place] [address], [id number] , [facility] ([place] 12-29-2022 Miscellaneous Notes Patient's daughter notified. Sun Thompson RN Patient is positive for yeast. She has dementia and sister is roofing machine operator. Please notify sister of positive results. Diflucan 150 mg PO x 2 doses called in to local pharmacy. She will need to take one dose this week and another dose in 1 week. Madalyn Degroot APRN.CNM documented in this encounter [facility] 12-28-2022 Note HNO ID: [id number] Author: Madalyn Degroot APRN.CNM Service: ? Author Type: Neuroradiologist Type: Progress Notes Filed: 12/28/2022 11:13 AM Note Text: Robbin Singh is a 82 year old female who presents with daughter and sister for problem visit of vaginal burning. Patient referred by PCP due to having vaginal pain and burning sensation. She thought she had a urinary tract infection but urine culture returned negative. Patient has dementia and is daughter is roofing machine operator. Last week patient became concerned because she noticed feces inside her vagina. She notices stool on toilet paper after wiping. Patient's sister concerned she may have anal fissures/fistula. She has a history of mixed incontinence and wears Depends. Denies any vaginal discharge, odor or itching. Suspect Artist Supervisor History LMP: Postmenopausal Age at Menarche: Age at First : Age at Menopause: Suspect Artist Supervisor History Comments: Sexual Activity: Never; No partner [...] 05/08/2013 Diabetes mellitus type 2 in obese ([facility]) 06/2015 a1c 6.5% Diabetic eye exam ([facility]) 03/15/2017 Last done: 10/24/2019 No Retinopathy Essential [...] TACO (obstructive sleep apnea) [facility] [employer] [facility] [phone] Pain due to total left knee replacement ([facility]) 06/08/2018 Personal history of colonic polyps 01/23/2016 Primary insomnia 03/16/2017 Brain [place] 06/26/2018 recommended Klonopin every other day for a week and then just as needed. Primary osteoarthritis of right knee 07/13/2016 Pulmonary hypertension ([facility]) 05/19/2022 Seeing pulm and cardio Pulmonary nodules 03/03/2013 Incidental non-calcified nodules 10/09/2012. Repeat CT due 06/2013 Recurrent major depressive disorder, in full remission ([facility]) 08/17/2012 Rheumatoid arthritis(714.0) Spondylosis of lumbar region without myelopathy or radiculopathy 05/28/2015 Status post total left knee replacement 06/08/2018 Stress incontinence 11/21/[address] Armas. Thyroid nodule 11/15/2018 Stable on 2017 Type 2 diabetes mellitus with stage 3 chronic kidney disease, without long-term current use of insulin ([facility]) 06/06/2017 Urge incontinence 11/21/2012 PAST SURGICAL HISTORY [...] CYSTOSCOPY 09/21/12 EGD 10/17/2011 Dr Negrete in [place] ESOPHAGOGASTRODUODENOSCOPY TRANSORAL DIAGNOSTIC 05/16/2014 EGD ESOPHAGOGASTRODUODENOSCOPY TRANSORAL DIAGNOSTIC 09/12/14 EGD ESOPHAGOGASTRODUODENOSCOPY TRANSORAL DIAGNOSTIC 01/06/2017 EGD ESOPHAGOGASTRODUODENOSCOPY TRANSORAL DIAGNOSTIC 07/21/2020 EGD REMOVE CATARACT, INSERT LENS, INTRACAPSUL Bilateral 2008 FAMILY HISTORY Problem Relation Age of Onset Hypertension Mother Heart Mother Lipids Mother HIGH CHOLESTEROL Heart Father [place] Ischemic Heart Disease Father STROKE other (diabetic) Father Diabetes Sister Diabetes Sister Breast Cancer Sister Social History Tobacco Use Smoking status: Former Packs/day: 3.0 (more content not included)... [facility] 12-27-2022 Miscellaneous Notes Urine culture was negative. See [employer] message. documented in this encounter [facility] 12-24-2022 Miscellaneous Notes Spoke to pt's daughter [...] the culture results. documented in this encounter [facility] 12-23-2022 Note HNO ID: [id number] Author: Stephani Crooks PA-C Service: ? Author Type: Physician Silk Finisher Type: Progress Notes Filed: 12/23/2022 2:24 PM [...] kidney disease) stage 3, GFR 30-59 ml/min ([facility]) 01/01/2019 COPD with chronic bronchitis ([facility]) 02/15/2017 Dr. Brito Current use of proton pump inhibitor 11/25/2016 Mg checked 11/2017 DDD (degenerative disc disease), cervical 07/29/2015 DDD (degenerative disc disease), lumbar 05/08/2013 Diabetes mellitus type 2 in obese ([facility]) 06/2015 a1c 6.5% Diabetic eye exam ([facility]) 03/15/2017 Last done: 10/24/2019 No Retinopathy Essential [...] TACO (obstructive sleep apnea) [facility] [employer] [facility] [phone] Pain due to total left knee replacement ([facility]) 06/08/2018 Personal history of colonic polyps 01/23/2016 Primary insomnia 03/16/2017 [facility] 06/26/2018 recommended Klonopin every other day for a week and then just as needed. Primary osteoarthritis of right knee 07/13/2016 Pulmonary hypertension (HCC) 05/19/2022 Seeing pulm and cardio Pulmonary nodules 03/03/2013 Incidental non-calcified nodules 10/09/2012. Repeat CT due 06/2013 Recurrent major depressive disorder, in full remission ([facility]) 08/17/2012 Rheumatoid arthritis(714.0) Spondylosis of lumbar region without myelopathy or radiculopathy 05/28/2015 Status post total left knee replacement 06/08/2018 Stress incontinence 11/21/[address] Armas. Thyroid nodule 11/15/2018 Stable on US 2017 Type 2 diabetes mellitus with stage 3 chronic kidney disease, without long-term current use of insulin ([facility]) 06/06/2017 Urge incontinence 11/21/2012 Previous Surgical History [...] CYSTOSCOPY 09/21/12 EGD 10/17/2011 Dr Negrete in [place] ESOPHAGOGASTRODUODENOSCOPY TRANSORAL DIAGNOSTIC 05/16/2014 EGD ESOPHAGOGASTRODUODENOSCOPY TRANSORAL DIAGNOSTIC 09/12/14 EGD ESOPHAGOGASTRODUODENOSCOPY TRANSORAL DIAGNOSTIC 01/06/2017 EGD ESOPHAGOGASTRODUODENOSCOPY TRANSORAL DIAGNOSTIC 07/21/2020 EGD REMOVE CATARACT, INSERT LENS, INTRACAPSUL Bilateral 2008 Family History FAMILY HISTORY Pr (more content not included)... [facility] 12-23-2022 History of Present illness Narrative Chief [...] kidney disease) stage 3, GFR 30-59 ml/min ([facility]) 01/01/2019 COPD with chronic bronchitis ([facility]) 02/15/2017 Dr. Brito Current use of proton pump inhibitor 11/25/2016 Mg checked 11/2017 DDD (degenerative disc disease), cervical 07/29/2015 DDD (degenerative disc disease), lumbar 05/08/2013 Diabetes mellitus type 2 in obese ([facility]) 06/2015 a1c 6.5% Diabetic eye exam ([facility]) 03/15/2017 Last done: 10/24/2019 No Retinopathy Essential [...] TACO (obstructive sleep apnea) [facility] [employer] [facility] [phone] Pain due to total left knee replacement [...] Recurrent major depressive disorder, in full remission ([facility]) 08/17/2012 Rheumatoid arthritis(714.0) Spondylosis of lumbar region without myelopathy or radiculopathy 05/28/2015 Status post total left knee replacement 06/08/2018 Stress incontinence 11/21/[address] Armas. Thyroid nodule 11/15/2018 Stable on US 2017 Type 2 diabetes mellitus with stage 3 chronic kidney disease, without long-term current use of insulin ([facility]) 06/06/2017 Urge incontinence 11/21/2012 Previous Surgical History [...] CYSTOSCOPY 09/21/12 EGD 10/17/2011 Dr Negrete in [place] ESOPHAGOGASTRODUODENOSCOPY TRANSORAL DIAGNOSTIC 05/16/2014 EGD ESOPHAGOGASTRODUODENOSCOPY TRANSORAL DIAGNOSTIC 09/12/14 EGD ESOPHAGOGASTRODUODENOSCOPY TRANSORAL DIAGNOSTIC 01/06/2017 EGD ESOPHAGOGASTRODUODENOSCOPY TRANSORAL DIAGNOSTIC 07/21/2020 EGD REMOVE CATARACT, INSERT LENS, INTRACAPSUL Bilateral 2008 Family History FAMILY HISTORY Problem Relation Age of Onset Hypertension Mother Heart Mother Lipids Mother HIGH CHOLESTEROL Heart Father [place] Ischemic Heart Disease Father STROKE other (diabetic) Father Diabetes Sister Diabetes Sister Breast Cancer Sister Patient Allergies ALLERGIES Allergen Reactions Bactrim [Sulfametho* Itching Codeine Mental Status Change Garlic Oil Other: See Comments Lexapro [Escitalopr* Other: See Comments rapid heart rate Oxybutynin Other: See Comments suggerst by [employer] to stop since it can add to [...] of breath (With Spacer). Walker (ULTRA-LIGHT ROLLATOR) [facility] [place] [place] with seat. Dx: J44.9, M54.9, [...] patient's family that they can go to [facility] and request virtual visit. - CONSULT TO GERIATRICS 2. Dysuria - ICD9: 788.1, ICD10: R30.0 acute Patient to get UA and Culture completed. - URINALYSIS, WITH MICROSCOPIC - URINE CULTURE - CONSULT TO GERIATRICS 3. Dementia with mood disturbance, unspecified dementia severity, unspecified dementia type - ICD9: 294.21, ICD10: F03.93 See #1. Stephani Crooks PA-C documented in this encounter [facility] 12-16-2022 Miscellaneous Notes Daughter Mariela notified of [...] Shelby Rogel LPN documented in this encounter [facility] 12-13-2022 Miscellaneous Notes Last office visit: 11/04/22 F/u scheduled: 03/11/23 Cristina Garcia Ma documented in this encounter [facility] 12-07-2022 Miscellaneous Notes The following approved medication [...] daily. TAVO: 11/04/22 NOV: 03/11/23 Last Refill: [place]: 11/09/22 #60 0 refills [place]: 11/19/22 #90 5 refills.Not due for refill yet Huong Payan LPN documented in this encounter [facility] 12-02-2022 Miscellaneous Notes The following approved medication requests have been transmitted electronically. Requested Prescriptions Signed Prescriptions Disp Refills furosemide (LASIX) 20 mg tablet 180 tablet 1 Sig: Take 1 tablet by mouth twice daily. Authorizing Provider: STEPHANI CROOKS PA-C Patient phones requesting refills as follows: Pt needs the halfway [facility] sent in. See below Requested Prescriptions Pending Prescriptions Disp Refills furosemide (LASIX) 20 mg tablet 180 tablet 1 Sig: Take 1 tablet by mouth twice daily. Please review and advise. Brianne Chiang LPN I'm not sure what they need? Does she need a new short term prescription to be sent or the mail order refilled. Stephani Crooks PA-C Please see [employer] message documented in this encounter [facility] 11-19-2022 Miscellaneous Notes Patient has been identified [...] Last refill: 08/2022 documented in this encounter [facility] 11-19-2022 Miscellaneous Notes Patient has been identified [...] go [facility] documented in this encounter [facility] 11-16-2022 Miscellaneous Notes Patient has been identified by name and date of : Yes, Patient phones for refill(s): Requested Prescriptions Pending Prescriptions Disp Refills donepezil (ARICEPT) 10 mg tablet 30 tablet 5 Sig: Take 1 tablet by mouth daily at bedtime. Date of last office visit in primary care: 11/04/22 Please advise. Thank you. Nel Cope LPN documented in this encounter [facility] documented in this encounter [facility]01-03-2023 Miscellaneous Notes* Telephone Encounter - Stephnai Crooks PA-C - 11/09/2022 12:06 PM EST [...] you. Nel Cope LPN [facility] Miscellaneous Notes* Telephone Encounter - Nel Cope [...] you. Nel Cope LPN [facility] Miscellaneous Notes* Telephone Encounter - Michelle Bucio [...] dehydration. Stephani Crooks PA-C [facility] NoteHNO ID: [id number] Author: Stephani Crooks PA-C Service: ? Author Type: Physician Silk Finisher Type: Progress Notes Filed: 11/04/2022 1:40 PM [...] ml/min (HCC) 01/01/2019 COPD with chronic bronchitis ([facility]) 02/15/2017 Dr. Brito Current use of proton pump inhibitor 11/25/2016 Mg checked 11/2017 DDD (degenerative disc disease), cervical 07/29/2015 DDD (degenerative disc disease), lumbar 05/08/2013 Diabetes mellitus type 2 in obese ([facility]) 06/2015 a1c 6.5% Diabetic eye exam ([facility]) 03/15/2017 Last done: 10/24/2019 No Retinopathy Essential [...] TACO (obstructive sleep apnea) [facility] [employer] [facility] [phone] Pain due to total left knee replacement ([facility]) 06/08/2018 Personal history of colonic polyps 01/23/2016 Primary insomnia 03/16/2017 Brain center 06/26/2018 recommended Klonopin every other day for a week and then just as needed. Primary osteoarthritis of right knee 07/13/2016 Pulmonary hypertension ([facility]) 05/19/2022 Seeing pulm and cardio Pulmonary nodules 03/03/2013 Incidental non-calcified nodules 10/09/2012. Repeat CT due 06/2013 Recurrent major depressive disorder, in full remission ([facility]) 08/17/2012 Rheumatoid arthritis(714.0) Spondylosis of lumbar region [...] CYSTOSCOPY 09/21/12 EGD 10/17/2011 Dr Negrete in [place] ESOPHAGOGASTRODUODENOSCOPY TRANSORAL DIAGNOSTIC 05/16/2014 EGD ESOPHAGOGASTRODUODENOSCOPY TRANSORAL DIAGNOSTIC 09/12/14 EGD ESOPHAGOGASTRODUODENOSCOPY TRANSORAL DIAGNOSTIC 01/06/2017 EGD ESOPHAGOGASTRODUODENOSCOPY TRANSORAL DIAGNOSTIC 07/21/2020 EGD REMOVE CATARACT, INSERT LENS, INTRACAPSUL Bilateral 2008 Family History FAMILY HISTORY Problem Relation Age of Onset Hypertension Mother Heart Mother Lipids Mother HIGH CHOL (more content not included)...[facility]12-29-2022 Instructions* Patient Instructions* Stephani Crooks PA-C - 11/04/2022 1:21 PM EST Stop prozac- restart zoloft. Decrease metformin to 1000mg at night. See if this helps with the nausea. Start actos for help on Diabetes management since we are decreasing metformin. Labs today. documented in this encounterSelect [facility]12-29-[facility] History of Present illness Narrative* Stephani Crooks [...] kidney disease) stage 3, GFR 30-59 ml/min ([facility]) 01/01/2019 COPD with chronic bronchitis ([facility]) 02/15/2017 Dr. Brito Current use of proton pump inhibitor 11/25/2016 Mg checked 11/2017 DDD (degenerative disc disease), cervical 07/29/2015 DDD (degenerative disc disease), lumbar 05/08/2013 Diabetes mellitus type 2 in obese ([facility]) 06/2015 a1c 6.5% Diabetic eye exam ([facility]) 03/15/2017 Last done: 10/24/2019 No Retinopathy Essential [...] TACO (obstructive sleep apnea) [facility]ME [employer] fx [phone] Pain due to total left knee replacement (HCC) 06/08/2018 Personal history of colonic polyps 01/23/2016 Primary insomnia 03/16/2017 [facility] 06/26/2018 recommended Klonopin every other day for a week and then just as needed. Primary osteoarthritis of right knee 07/13/2016 Pulmonary hypertension ([facility]) 05/19/2022 Seeing pulm and cardio Pulmonary nodules 03/03/2013 Incidental non-calcified nodules 10/09/2012. Repeat CT due 06/2013 Recurrent major depressive disorder, in full remission ([facility]) 08/17/2012 Rheumatoid arthritis(714.0) Spondylosis of lumbar region without myelopathy or radiculopathy 05/28/2015 Status post total left knee replacement 06/08/2018 Stress incontinence 11/21/[address] Armas. Thyroid nodule 11/15/2018 Stable on 2017 Type 2 diabetes mellitus with stage 3 chronic kidney disease, without long-term current use of insulin ([facility]) 06/06/2017 Urge incontinence 11/21/2012 Previous Surgical History [...] CYSTOSCOPY 09/21/12 EGD 10/17/2011 Dr Negrete [place] ESOPHAGOGASTRODUODENOSCOPY TRANSORAL DIAGNOSTIC 05/16/2014 EGD ESOPHAGOGASTRODUODENOSCOPY TRANSORAL DIAGNOSTIC 09/12/14 EGD ESOPHAGOGASTRODUODENOSCOPY TRANSORAL DIAGNOSTIC 01/06/2017 EGD ESOPHAGOGASTRODUODENOSCOPY TRANSORAL DIAGNOSTIC 07/21/2020 EGD REMOVE CATARACT, INSERT LENS, INTRACAPSUL Bilateral 2008 Family History FAMILY HISTORY Problem Relation Age of Onset Hypertension Mother Heart Mother Lipids Mother HIGH CHOLESTEROL Heart Father [place] Ischemic Heart Disease Father STROKE other (diabetic) Father Diabetes Sister Diabetes Sister Breast Cancer Sister Patient Allergies ALLERGIES Allergen Reactions Bactrim [Sulfametho* Itching Codeine Mental Status Change Garlic Oil Other: See Comments Lexapro [Escitalopr* Other: See Comments rapid heart rate Oxybutynin Other: See Comments suggerst by [employer] to stop since it can add to [...] intervention Stephani Crooks PA-C documented in this encounterSelect [facility]12-08-2022 Miscellaneous Notes* Telephone Encounter - Julia Bradley RN - 10/14/2022 10:55 AM EST Opened In Error documented in this encounterSelect Medical [facility]11-09-2022 Miscellaneous Notes* Telephone Encounter - Antionette Coleman MA - 09/15/2022 8:15 AM EST Medication attached to another phone encounter. Antionette Coleman MA documented in this encounterSelect Medical Special[facility]11-09-2022 Miscellaneous Notes* Telephone Encounter - Antionette Coleman [...] 09/2022 Last refill: 06/2022 documented in this encounterSelect Medical [facility]11-01-2022 Miscellaneous Notes* Telephone Encounter - Leno Briggs [...] you. Nel Cope LPN documented in this encounterSelect Medical Special[facility]10-21-2022 Miscellaneous Notes* Telephone Encounter - Leno Briggs [...] advise. Brianne Chiang LPN documented in this encounterSelect Medical Specialty [facility]09-28-2022 Miscellaneous Notes* Telephone Encounter - Stephani Crooks [...] 09/2022 Last refill: 07/04/2022 documented in this encounterSelect Medical [facility]09-20-2022 Miscellaneous Notes* Telephone Encounter - Antionette Coleman [...] help with ADL's ie. Bathing, grooming, mobility. [facility] ph. [phone] also will assess if patient are eligible for Medicaid as that is a requirement for Passport program. Sw looked back through notes and does not see any mention in regards to previous Passport referral or notes in regards to patient already having Passport services. Passport usually helps with home safety modifications, home visit field care manager, home delivered meals, medical alert button costs if eligible. If patient would be open to Sw referring, [facility] would do the in home assessment to seeif eligible. * Telephone Encounter - Antionette Coleman MA - 07/16/2022 10:00 AM EDT How do we find out if that patient is eligible for Passport? Antionette Coleman MA * Telephone Encounter - ZULEMA Salazar - 07/15/2022 1:54 PM EDT Sw has had patient's purchase motorized scooters from [employer] in [place]. [employer] ph.[phone] or fax#[phone]. I have not found insurance to be covering the cost of scooters unless they may be eligible for [facility] on Aging program. * Telephone Encounter - [...] anyone. I told patient I would ask Warehouse Production Worker if she had any other ideas on places for motorized scooters for insurance. If not we have to wait on [facility]. Antionette Coleman MA * Telephone Encounter - Antionette Coleman MA - 07/07/2022 11:20 AM EDT Tried calling [employer] and they do not have motorized scooters. Antionette Coleman MA * Telephone Encounter - Grecia Riley LPN - 07/06/2022 10:06 AM EDT Received fax from [facility] that wheelchair that was ordered for pt is on backorder and they are unable to obtain. Advised pt of same and she will check and see if there is anywhere else her insurance will approve of that office can fax order to to see if they can get wheelchair for pt. She will callback with information. Grecia Riley LPN documented in this encounterSelect Medical [facility]ty [facility]09-19-2022 Miscellaneous Notes* Telephone Encounter - Joy Hicks Ma - 07/26/2022 10:51 AM EDT Please see pt daughter message. Joy Hicks Ma documented in this encounterSelect Medical Specialty [facility]08-30-2022 Miscellaneous Notes* Telephone Encounter - Grecia Riley LPN - 07/06/2022 11:18 AM EDT Left message of same on daughter, Shae identified vm. Grecia Riley LPN * Telephone Encounter - Leno Briggs MD - 07/06/2022 11:06 AM EDT Let daughter know electrolyte panel was ok. documented in this encounterSelect Medical Specialty [facility]08-30-2022 Miscellaneous Notes* Telephone Encounter - Grecia Riley [...] OTC. Stephani Crooks PA-C documented in this encounterSelect Medical Specialty [facility]08-29-2022 History of Present illness Narrative* Leno Briggs MD - 07/05/2022 3:20 PM EDT Chief Complaint Patient presents with: Follow Up: [facility] Robbin Singh is a 81 year old female who presents here today for 4 week follow up on Depression/HTN/Edema and Medication. Patient indicated that she contacted insurance and they will approve a scooter for patient if recommended by her PCP. They will pay for 80-90% and can be faxed to [facility] [phone]. Patient here with her daughter today. Patient has recently been released for [facility] services due to meeting goals. [...] in the next few months. Taking the [place] twice a day does help her knee [...] kidney disease) stage 3, GFR 30-59 ml/min ([facility]) 01/01/2019 COPD with chronic bronchitis ([facility]) 02/15/2017 Dr. Brito Current use of proton pump inhibitor 11/25/2016 Mg checked 11/2017 DDD (degenerative disc disease), cervical 07/29/2015 DDD (degenerative disc disease), lumbar 05/08/2013 Diabetes mellitus type 2 in obese ([facility]) 06/2015 a1c 6.5% Diabetic eye exam ([facility]) 03/15/2017 Last done: 10/24/2019 No Retinopathy Essential [...] TACO (obstructive sleep apnea) DME [employer] fx [phone] Pain due to total left knee replacement [...] Recurrent major depressive disorder, in full remission ([facility]) 08/17/2012 Rheumatoid arthritis(714.0) Spondylosis of lumbar region [...] CYSTOSCOPY 09/21/12 EGD 10/17/2011 Dr Negrete [place] ESOPHAGOGASTRODUODENOSCOPY TRANSORAL DIAGNOSTIC 05/16/2014 EGD ESOPHAGOGASTRODUODENOSCOPY TRANSORAL DIAGNOSTIC 09/12/14 EGD ESOPHAGOGASTRODUODENOSCOPY TRANSORAL DIAGNOSTIC 01/06/2017 EGD ESOPHAGOGASTRODUODENOSCOPY TRANSORAL DIAGNOSTIC 07/21/2020 EGD REMOVE CATARACT, INSERT LENS, INTRACAPSUL Bilateral 2008 Family History FAMILY HISTORY Problem Relation Age of Onset Hypertension Mother Heart Mother Lipids Mother HIGH CHOLESTEROL Heart Father [place] Ischemic Heart Disease Father STROKE other (diabetic) Father Diabetes Sister Diabetes Sister Breast Cancer Sister Patient Allergies ALLERGIES Allergen Reactions Bactrim [Sulfametho* Itching Codeine Mental Status Change Garlic Oil Other: See Comments Lexapro [Escitalopr* Other: See Comments rapid heart rate Oxybutynin Other: See Comments suggerst by [employer] to stop since it can add to [...] DX E11.22 Insulin No Walker (ULTRA-LIGHT ROLLATOR) [facility] Rol[facility] with seat. Dx: J44.9, M54.9, [...] ICD9: 338.4, ICD10: G89.4 - stable with [place] 4. Bilateral leg edema - ICD9: 782.3, [...] 09/24/2022 Leno Briggs MD documented in this encounterSelect Medical [facility]08-28-2022 Miscellaneous Notes* Telephone Encounter - Leno Briggs [...] message. Grecia Riley LPN documented in this encounterSelect Medical Specialty [facility]08-23-2022 Miscellaneous Notes* Telephone Encounter - Leno Briggs [...] with 0 refills TAVO 05/24/22 NOV 07/05/22 rGecia Riley LPN documented in this encounterSelect Medical [facility]ty [facility]08-22-2022 Miscellaneous Notes* Telephone Encounter - Leno Briggs [...] daily. Leno Briggs MD documented in this encounterSelect [facility]08-08-2022 Miscellaneous Notes* Telephone Encounter - Grecia Riley [...] 05/24/22 F/u scheduled: 07/05/22 Last refilled on: [place] #60 on 06/01/22 Cristina Garcia Ma documented in this encounterSelect Medical [facility]08-08-2022 Miscellaneous Notes* Telephone Encounter - Cristina Garcia Ma - 06/14/2022 12:40 PM EDT Last office visit: 05/24/22 F/u scheduled: 07/05/22 Cristina Garcia Ma documented in this encounterSelect Medical [facility]08-07-2022 History of Present illness Narrative* Leno Briggs MD - 06/13/2022 1:15 PM EDT Patient's home health 485 form / care plan for certification period 05/21/2022 to 07/19/2022 reviewedand signed. Relevant medical records were reviewed. Changes were communicated to home health agency documented in this encounterSelect Medical Specialty [facility]08-03-2022 Miscellaneous Notes* Telephone Encounter - Cristina Garcia Ma - 06/09/2022 12:08 PM EDT Janey notified and voiced understanding. Cristina Garcia Ma * Telephone Encounter - Leno Briggs MD - 06/09/2022 12:02 PM EDT Ok to give verbal ok for delay in care. * Telephone Encounter - Leesa Oro RN - 06/08/2022 4:22 PM EDT Janey- - [facility]- reports she is to see patient bi-weekly, but patient is a little overwhelmed right now, and asked SW to come next week. FAITH asking for verbal approval for delay of care. Please phone Janey with verbal. documented in this encounterSelect Medical [facility]ty [facility]07-28-2022 Miscellaneous Notes* Telephone Encounter - Cristina Garcia Ma - 06/03/2022 1:25 PM EDT Addressed in [employer] message. Cristina Garcia Ma * Telephone Encounter - Cristina Garcia Ma - 06/03/2022 1:12 PM EDT Awaiting response from pt on if she has received her 90 day supply from Mail order pharmacy yet? Cristina Garcia Ma documented in this encounterCleveland [id number] Miscellaneous Notes* Telephone Encounter - Antionette Coleman [...] for functional mobility training. documented in this [facility]07-26-2022 Miscellaneous Notes* Telephone Encounter - Octavio Hampton [...] patient. Irene Hardin Ma documented in this encounterSelect Medical Specialty [facility]07-21-2022 Miscellaneous Notes* Telephone Encounter - Grecia Riley LPN - 05/27/2022 11:49 AM EDT Orders faxed as requested to DME [phone]. Grecia Riley LPN * Telephone Encounter - [...] Coreas Pss - 05/27/2022 11:01 AM EDT Gail called back in today after speaking with insurance company last night. She was told the officewould have to call [facility] at [phone]. If it is sent there, then it will be covered.Please advise. * Telephone Encounter - Antionette Coleman MA - 05/26/2022 8:42 PM EDT Spoke with Gail and she indicated that the insurance company [facility] and then they would give her the suppliers to where she can get it. She was going to call the insurance company again tomorrow to get more information. Antionette Coleman MA * Telephone Encounter - Lneo Briggs MD - 05/26/2022 8:27 PM EDT [...] letter. Please advise Gail. documented in this encounterSelect Medical [facility]07-20-2022 Miscellaneous Notes* Telephone Encounter - Shira Shell Cma - 05/26/2022 9:15 AM EDT Patient daughter notified and verbalized understanding Shira Shell Cma * Telephone Encounter - Stephani Crooks PA-C - 05/26/2022 9:00 AM EDT Repeat urine is better and culture negative. Stephani Crooks PA-C documented in this encounterSelect Medical [facility]07-20-2022 Miscellaneous Notes* Telephone Encounter - Leesa Oro RN - 05/26/2022 8:30 AM EDT Left detailed vm on identified vm with provider's message below. * Telephone Encounter - Leno Briggs MD - 05/25/2022 8:50 PM EDT Let [place] know I'm fine giving order for her to see her one more time. If she needs more visits letme know. * Telephone Encounter - Shelby Rogel LPN - 05/25/2022 3:46 PM EDT Shanta, social service manager with [facility] calling for verbal order to see pt one more time to follow up on referrals and community resources. Please advise Shanta. Shelby Rogel LPN documented in this encounterSelect Medical [facility]ty [facility]07-18-2022 History of Present illness Narrative* Leno Briggs [...] cancelled them. patient does not remember this. [facility] has been out to see her encluding SW, care home and will also include PHYSICAL THERAPY. There [...] kidney disease) stage 3, GFR 30-59 ml/min ([facility]) 01/01/2019 COPD with chronic bronchitis ([facility]) 02/15/2017 Dr. Brito Current use of proton pump inhibitor 11/25/2016 Mg checked 11/2017 DDD (degenerative disc disease), cervical 07/29/2015 DDD (degenerative disc disease), lumbar 05/08/2013 Diabetes mellitus type 2 in obese ([facility]) 06/2015 a1c 6.5% Diabetic eye exam ([facility]) 03/15/2017 Last done: 10/24/2019 No Retinopathy Essential [...] TACO (obstructive sleep apnea) DME [employer] fx [phone] Pain due to total left knee replacement [...] Recurrent major depressive disorder, in full remission ([facility]) 08/17/2012 Rheumatoid arthritis(714.0) Spondylosis of lumbar region without myelopathy or radiculopathy 05/28/2015 Status post total left knee replacement 06/08/2018 Stress incontinence 11/21/[address] Armas. Thyroid nodule 11/15/2018 Stable on 2017 Type 2 diabetes mellitus with stage 3 chronic kidney disease, without long-term current use of insulin ([facility]) 06/06/2017 Urge incontinence 11/21/2012 Previous Surgical History [...] CYSTOSCOPY 09/21/12 EGD 10/17/2011 Dr Negrete [place] ESOPHAGOGASTRODUODENOSCOPY TRANSORAL DIAGNOSTIC 05/16/2014 EGD ESOPHAGOGASTRODUODENOSCOPY TRANSORAL DIAGNOSTIC 09/12/14 EGD ESOPHAGOGASTRODUODENOSCOPY TRANSORAL DIAGNOSTIC 01/06/2017 EGD ESOPHAGOGASTRODUODENOSCOPY TRANSORAL DIAGNOSTIC 07/21/2020 EGD REMOVE CATARACT, INSERT LENS, INTRACAPSUL Bilateral 2009 Family History FAMILY HISTORY Problem Relation Age of Onset Hypertension Mother Heart Mother Lipids Mother HIGH CHOLESTEROL Heart Father [place] Ischemic Heart Disease Father STROKE other (diabetic) Father Diabetes Sister Diabetes Sister Breast Cancer Sister Patient Allergies ALLERGIES Allergen Reactions Bactrim [Sulfametho* Itching Codeine Mental Status Change Garlic Oil Other: See Comments Lexapro [Escitalopr* Other: See Comments rapid heart rate Oxybutynin Other: See Comments suggerst by [employer] to stop since it can add to [...] up to 30 days. Walker (ULTRA-LIGHT ROLLATOR) [facility] [place] with seat. Dx: J44.9, M54.9, [...] unspecified whether stage 3a or 3b CKD ([facility]) - ICD9: 250.40, 585.3, ICD10: E11.22, N18.30 (primary diagnosis) uncontrolled - Continue current medications - BP goal of <130/80 - LDL goal of <100 - Recently restarted on metformin and increased to two tabs twice a day. 2. Diabetes mellitus type 2 in obese ([facility]) - ICD9: 250.00, 278.00, ICD10: E11.69, E66.9 - As per #1 3. Diabetic eye exam ([facility]) - ICD9: V72.0, 250.00, ICD10: Z01.00, E11.9 [...] mg BID 12. COPD with chronic bronchitis ([facility]) - ICD9: 491.20, ICD10: J44.9 - Stable. Needs to f/u with pulm 13. Stage 3 chronic kidney disease, unspecified whether stage 3a or 3b CKD ([facility]) - ICD9: 585.3, ICD10: N18.30 - Appears stable. Will need to check renal panel in a few weeks wit being on the aldactone 14. Obesity, Class III, BMI 40-49.9 (morbid obesity) ([facility]) - ICD9: 278.01, ICD10: E66.01 Stable - [...] time Leno Briggs MD documented in this encounterSelect Medical [facility]07-13-2022 Miscellaneous Notes* Telephone Encounter - Leno Briggs [...] of insurance card and med list to [facility] fax#[phone]. Also let daughter know this was done. * Telephone Encounter - ZULEMA Salazar - 05/18/2022 7:24 AM EDT If staff could let patient sister Gail know what comes of response to home health services FAITH would appreciate. Gail ph.[phone]. * Telephone Encounter - ZULEMA Salazar - [...] be then faxed to home health agency. [facility] fax#[phone]. [facility] fax#[phone], [facility] fax [phone] are other home health care options if [facility] does not work. Sw will be [...] health agencies in the community that provide care home and PT ie. [facility]. Faith noted for Medicare a patient would need to be considered home bound. Home Health agencies also look to provider notes to see about home health being discussed at . Faith also noted [facility] Community Care Network program. [facility] has nursing,social work, therapy and [employer] students that go to patients homes that [...] gave verbal permission to speak with Gail ph.[phone]. Faith will try call again tomorrow 05/14 @10am to discuss transportation resources. documented in this encounterSelect Medical [facility]ty [facility]07-12-2022 History of Present illness Narrative* TRI Silva - 05/18/2022 2:05 PM EDT PULM FUNCTION SMARTBLOCK: Provider: Stephani Crooks PA-C Assisting Tech: TRI Silva Spirometry w/BD: 1 documented in this encounterSelect Medical Specialty [facility]07-07-2022 Miscellaneous Notes* Telephone Encounter - Stephani Crooks PA-C - 05/13/2022 2:39 PM EDT Consult placed. * Telephone Encounter - Grecia Riley LPN - 05/13/2022 2:31 PM EDT Spoke with pt. She is agreeable to consult with SW. Pt would like SW to contact her sister Gail. Spoke with Gail and her contact # is [phone]. Gail states she will relay information to [...] She states Stephani suggested patient speak to Warehouse Production Worker about transportation issues. Patient's sister says she would likeher sister to speak to a social service manager. Sister is not listed as an emergency contact or POA. Marie Kumar RN documented in this encounterSelect Medical Specialty [facility]07-05-2022 Miscellaneous Notes* Telephone Encounter - Stephani Crooks [...] to increase of metformin. Uses [facility] [place]. Pt denies any s/s uti. Will come [...] okay. Stephani Crooks PA-C documented in this encounterSelect Medical Specialty [facility]07-05-2022 Miscellaneous Notes* Telephone Encounter - [place] [...] daughter. Grecia Riley LPN documented in this encounterSelect Medical Specialty [facility]07-05-2022 Miscellaneous Notes* Telephone Encounter - Grecia Riley LPN - 05/11/2022 8:42 AM EDT Pt requesting refills TAVO 05/07/22 NOV 07/07/22 Grecia Riley LPN documented in this encounterSelect Medical Specialty [facility]07-01-2022 Instructions* Patient Instructions* Stephani Crooks PA-C - 05/07/2022 1:46 PM EDT Please reschedule with pulm and cardiology. documented in this encounterSelect Medical Specialty [facility]07-01-2022 History of Present illness Narrative* Stephani Crooks [...] kidney disease) stage 3, GFR 30-59 ml/min ([facility]) 01/01/2019 COPD with chronic bronchitis ([facility]) 02/15/2017 Dr. Brito Current use of proton pump inhibitor 11/25/2016 Mg checked 11/2017 DDD (degenerative disc disease), cervical 07/29/2015 DDD (degenerative disc disease), lumbar 05/08/2013 Diabetes mellitus type 2 in obese ([facility]) 06/2015 a1c 6.5% Diabetic eye exam ([facility]) 03/15/2017 Last done: 10/24/2019 No Retinopathy Essential [...] TACO (obstructive sleep apnea) DME [employer] fx [phone] Pain due to total left knee replacement ([facility]) 06/08/2018 Personal history of colonic polyps 01/23/2016 Primary insomnia 03/16/2017 [facility] center 06/26/2018 recommended Klonopin every other day for a week and then just as needed. Primary osteoarthritis of right knee 07/13/2016 Pulmonary nodules 03/03/2013 Incidental non-calcified nodules 10/09/2012. Repeat CT due 06/2013 Recurrent major depressive disorder, in full remission ([facility]) 08/17/2012 Rheumatoid arthritis(714.0) Spondylosis of lumbar region [...] CHOLECYSTECTOMY HX 10/30/1997 COLONOSCOP W/ OR W/O [facility] SPEC 11/29/12 Colonoscopy repeat 3 years COLONOSCOP W/ OR W/O [facility] SPEC 01/28/16 Colonoscopy with mac COLONOSCOPY & POLYPECTOMY ~2007 2 polyps COLONOSCOPY & POLYPECTOMY ~2001 7 polyps COLONOSCOPY & POLYPECTOMY 11/30/2011 CYSTOSCOPY 09/21/12 EGD 10/17/2011 Dr Negrete in [place] EGD W/O OR W/BRUSH/WASH 05/16/2014 EGD EGD W/O OR W/BRUSH/WASH 09/12/14 EGD EGD W/O OR W/BRUSH/WASH 01/06/2017 EGD EGD W/O OR W/BRUSH/WASH 07/21/2020 EGD REMOVE CATARACT, INSERT LENS, INTRACAPSUL Bilateral 2008 TOTAL KNEE REPLACEMENT Left 06/08/2012 Family History FAMILY HISTORY Problem Relation Age of Onset Hypertension Mother Heart Mother Lipids Mother HIGH CHOLESTEROL Heart Father [place] Ischemic Heart Disease Father STROKE other (diabetic) Father Diabetes Sister Diabetes Sister Breast Cancer Sister Patient Allergies ALLERGIES Allergen Reactions Bactrim [Sulfametho* Itching Codeine Mental Status Change Garlic Oil Other: See Comments Lexapro [Escitalopr* Other: See Comments rapid heart rate Oxybutynin Other: See Comments suggerst by [employer] to stop since it can add to [...] mouth once daily. ) Walker (ULTRA-LIGHT ROLLATOR[place] [facility] [place]. Dx: J44.9, M54.9, [...] recheck. Stephani Crooks PA-C [facility]* Diagnosis Type 2 diabetes mellitus [...] and respiratory abnormality documented in this encounter [facility] Miscellaneous Notes* Telephone Encounter - Grecia Riley [...] Tue. Grecia Riley LPN documented [facility] Miscellaneous Notes* Telephone Encounter - Antionette Coleman [...] 04/21/2022 2:50 PM EDT Pharmacy verified in [facility] Patient has been identified by name [...] advise. Sun Chavez Pss documented in [facility] encounter[facility] Miscellaneous Notes* Telephone Encounter - Leno Briggs [...] LPN * Telephone Encounter - Ana [place] [facility] - 03/31/2022 9:45 AM EDT Patient has [...] pharmacy. No need to notify patient. [facility] encounter[facility] Miscellaneous Notes* Telephone Encounter - Grecia Riley [...] notify patient. Romelia Dorantes documented in this encounter[facility] Miscellaneous Notes* Telephone Encounter - Shelby Rogel LPN - 03/22/2022 4:56 PM EDT Pt scheduled for apt on 04-07-22. Shelby Rogel LPN * Telephone Encounter - Stephani Crooks PA-C - 03/22/2022 3:15 PM EDT Patient needs to reschedule her visit with dr. Briggs. Stephani Crooks PA-C * Telephone Encounter - Ana Anderson [facility] - 03/22/2022 2:19 PM EDT Patient has [...] No need to notify patient. [facility] in [facility] encounter[facility] NoteHNO ID: [id number] Author: MODESTO Salmeron Service: Radiology Author Type: Clinical Billing Services Manager Type: Progress Notes Filed: 07/20/2021 2:36 PM [...] BY: MODESTO Salmeron July 20, 2021 2:35 PMSelect [id number] History of Past illness Narrative* Problem Noted [...] of this encounter (statuses as of 06/22/2023) [facility] History of Past illness Narrative* Problem Noted [...] of this encounter (statuses as of 06/22/2023) [facility] of Past illness Narrative* Problem Noted [...] of this encounter (statuses as of 07/06/2023) [facility] History of Past illness Narrative* Problem Noted [...] of this encounter (statuses as of 08/24/2023) [facility] of Past illness Narrative* Problem Noted [...] of this encounter (statuses as of 09/02/2023) [facility] History of Past illness Narrative* Problem Noted [...] of this encounter (statuses as of 09/20/2023) [facility] History of Past illness Narrative* Problem Noted [...] of this encounter (statuses as of 03/22/2022) [facility] of Past illness Narrative* Problem Noted [...] of this encounter (statuses as of 03/31/2022) [facility] of Past illness Narrative* Problem Noted [...] of this encounter (statuses as of 03/31/2022) [facility] of Past [facility] Narrative* Problem Noted [...] of this encounter (statuses as of 04/22/2022) [facility] of [facility] Narrative* Problem Noted [...] of this encounter (statuses as of 04/30/2022) [facility] of [facility] illness Narrative* Problem Noted [...] of this encounter (statuses as of 05/07/2022) [facility] of [facility] Narrative* Problem Noted [...] of this encounter (statuses as of 05/11/2022) [facility] Narrative* Problem Noted [...] of this encounter (statuses as of 05/11/2022) [facility] Narrative* Problem Noted [...] of this encounter (statuses as of 05/12/2022) [facility] Narrative* Problem Noted [...] of this encounter (statuses as of 05/13/2022) [facility] of [facility] Narrative* Problem Noted [...] of this encounter (statuses as of 05/18/2022) [facility] of [facility] Narrative* Problem Noted [...] of this encounter (statuses as of 05/19/2022) [facility] of [facility] Narrative* Problem Noted [...] of this encounter (statuses as of 05/24/2022) [facility] Narrative* Problem Noted [...] of this encounter (statuses as of 05/26/2022) [facility] of [facility] Narrative* Problem Noted [...] of this encounter (statuses as of 05/27/2022) [facility] Narrative* Problem Noted [...] of this encounter (statuses as of 06/01/2022) [facility] Narrative* Problem Noted [...] of this encounter (statuses as of 06/03/2022) [facility] of [facility] Narrative* Problem Noted [...] of this encounter (statuses as of 06/03/2022) [facility] Narrative* Problem Noted [...] of this encounter (statuses as of 06/09/2022) [facility] Narrative* Problem Noted [...] of this encounter (statuses as of 06/14/2022) [facility] Narrative* Problem Noted [...] of this encounter (statuses as of 06/14/2022) [facility] Narrative* Problem Noted [...] of this encounter (statuses as of 06/14/2022) [facility] Narrative* Problem Noted [...] of this encounter (statuses as of 06/15/2022) [facility] Narrative* Problem Noted [...] of this encounter (statuses as of 06/29/2022) [facility] Narrative* Problem Noted [...] of this encounter (statuses as of 06/29/2022) [facility] Narrative* Problem Noted [...] of this encounter (statuses as of 07/04/2022) [facility] Narrative* Problem Noted [...] of this encounter (statuses as of 07/05/2022) [facility] Narrative* Problem Noted [...] of this encounter (statuses as of 07/06/2022) [facility] Narrative* Problem Noted [...] of this encounter (statuses as of 07/26/2022) [facility] Narrative* Problem Noted [...] of this encounter (statuses as of 07/27/2022) [facility] Narrative* Problem Noted [...] of this encounter (statuses as of 08/04/2022) [facility] Narrative* Problem Noted [...] of this encounter (statuses as of 08/27/2022) [facility] Narrative* Problem Noted [...] of this encounter (statuses as of 09/08/2022) [facility] Narrative* Problem Noted [...] of this encounter (statuses as of 09/15/2022) [facility] Narrative* Problem Noted [...] of this encounter (statuses as of 09/15/2022) [facility] Narrative* Problem Noted [...] of this encounter (statuses as of 10/14/2022) [facility] Narrative* Problem Noted [...] of this encounter (statuses as of 11/10/2022) [facility] Narrative* Problem Noted [...] of this encounter (statuses as of 11/10/2022) [facility] Narrative* Problem Noted [...] of this encounter (statuses as of 11/11/2022) [facility] Narrative* Problem Noted [...] of this encounter (statuses as of 11/11/2022) [facility] Narrative* Problem Noted [...] of this encounter (statuses as of 11/16/2022) [facility] N[facility]* Problem Noted [...] of this encounter (statuses as of 11/19/2022) [facility] Narrative* Problem Noted [...] of this encounter (statuses as of 11/19/2022) [facility] N[facility]* Problem Noted [...] of this encounter (statuses as of 11/22/2022) [facility] N[facility]* Problem Noted [...] of this encounter (statuses as of 12/02/2022) [facility] N[facility]* Problem Noted [...] of this encounter (statuses as of 12/07/2022) [facility] N[facility]* Problem Noted [...] of this encounter (statuses as of 12/13/2022) [facility] N[facility]ative* Problem Noted [...] of this encounter (statuses as of 12/16/2022) [facility] N[facility]* Problem Noted [...] of this encounter (statuses as of 12/23/2022) [facility] Narrative* Problem Noted [...] of this encounter (statuses as of 12/24/2022) [facility] N[facility]* Problem Noted [...] of this encounter (statuses as of 12/27/2022) [facility] Narrative* Problem Noted [...] of this encounter (statuses as of 12/29/2022) [facility] Narr[facility]* Problem Noted [...] of this encounter (statuses as of 01/06/2023) [facility] N[facility]* Problem Noted [...] of this encounter (statuses as of 01/07/2023) [facility] N[facility]* Problem Noted [...] of this encounter (statuses as of 01/14/2023) [facility] Narrative* Problem Noted [...] of this encounter (statuses as of 01/18/2023) [facility] N[facility]* Problem Noted [...] of this encounter (statuses as of 01/19/2023) [facility] N[facility]* Problem Noted [...] of this encounter (statuses as of 01/25/2023) [facility] Narrative* Problem Noted [...] of this encounter (statuses as of 01/26/2023) [facility] N[facility]* Problem Noted [...] of this encounter (statuses as of 01/26/2023) [facility] Narrative* Problem Noted [...] of this encounter (statuses as of 01/28/2023) [facility] N[facility]* Problem Noted [...] of this encounter (statuses as of 01/31/2023) [facility] Narrative* Problem Noted [...] of this encounter (statuses as of 02/03/2023) [facility] N[facility]* Problem Noted [...] of this encounter (statuses as of 02/10/2023) [facility] Narrative* Problem Noted [...] of this encounter (statuses as of 02/10/2023) [facility] Narrative* Problem Noted [...] of this encounter (statuses as of 02/11/2023) [facility] Narr[facility]* Problem Noted [...] of this encounter (statuses as of 02/14/2023) [facility] Narrative* Problem Noted [...] of this encounter (statuses as of 02/14/2023) [facility] Narrative* Problem Noted [...] of this encounter (statuses as of 02/18/2023) [facility] N[facility]* Problem Noted [...] of this encounter (statuses as of 03/07/2023) [facility] Narr[facility]* Problem Noted [...] of this encounter (statuses as of 03/09/2023) [facility] Narr[facility]* Problem Noted [...] of this encounter (statuses as of 03/09/2023) [facility] Narr[facility]* Problem Noted [...] of this encounter (statuses as of 03/12/2023) [facility] Narrative* Problem Noted [...] of this encounter (statuses as of 03/17/2023) [facility] N[facility]ative* Problem Noted [...] of this encounter (statuses as of 04/04/2023) [facility] Narrative* Problem Noted [...] of this encounter (statuses as of 04/11/2023) [facility] Narrative* Problem Noted [...] of this encounter (statuses as of 06/21/2023) [facility]* Diagnosis Chronic pain of both knees Neuropathic pain Neuralgia, neuritis, and radiculitis, unspecified Chronic pain syndrome Lumbar spondylosis Lumbosacral spondylosis without myelopathy DDD (degenerative disc disease), cervical Degeneration of cervical intervertebral disc Arthritis, multiple joint involvement Unspecified arthropathy, multiple sites [facility] Diagnosis Microscopic hematuria- Primary [facility]* Diagnosis 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)- Primary Type II or unspecified type diabetes mellitus without mention of complication, not stated as uncontrolled Recurrent major depressive disorder, in full remission (HCC) MCI (mild cognitive impairment) Mild cognitive impairment, so stated [facility] this [facility] Diagnosis COPD with chronic bronchitis (HCC) Obstructive chronic bronchitis without exacerbation SOB (shortness of breath) Shortness of breath CHURCH (dyspnea on exertion) Other dyspnea and respiratory abnormality documented [facility] this [facility] Diagnosis Chronic pain [...] obesity Urge incontinence documented [facility] this [facility] Diagnosis Type 2 [...] unspecified whether stage 3a or 3b CKD ([facility]) Obesity, Class III, BMI 40-49.9 (morbid obesity) (HCC) Morbid obesity TACO (obstructive sleep apnea) Obstructive sleep apnea (adult) (pediatric) Primary insomnia Persistent disorder of initiating or maintaining sleep Bilateral primary osteoarthritis of knee Microscopic hematuria [facility] Diagnosis Chronic pain of both knees Neuropathic pain Neuralgia, neuritis, and radiculitis, unspecified Chronic pain syndrome Lumbar spondylosis Lumbosacral spondylosis without myelopathy DDD (degenerative disc disease), cervical Degeneration of cervical intervertebral disc Arthritis, multiple joint involvement Unspecified arthropathy, multiple sites [facility] Diagnosis Hypertensive heart disease with congestive heart failure, unspecified heart failure type ([facility])- Primary Chronic diastolic heart failure ([facility]) Chronic diastolic heart failure Type 2 diabetes mellitus with diabetic chronic kidney disease, unspecified CKD stage, unspecified whether computer terminal operator insulin use ([facility]) Stage 3 chronic kidney disease, unspecified whether stage 3a or 3b CKD ([facility]) Major depressive disorder, recurrent episode, in full remission ([facility]) Major depressive disorder, recurrent episode, in full remission Mild cognitive impairment, so stated Mixed hyperlipidemia Cervical spondylosis with myelopathy Other spondylosis with radiculopathy, lumbar region Obstructive chronic bronchitis without exacerbation (HCC) Obstructive chronic bronchitis without exacerbation Obstructive sleep apnea (adult) (pediatric) documented [facility] Diagnosis Chronic pain of both knees Neuropathic pain Neuralgia, neuritis, and radiculitis, unspecified Chronic pain syndrome Lumbar spondylosis Lumbosacral spondylosis without myelopathy DDD (degenerative disc disease), cervical Degeneration of cervical intervertebral disc Arthritis, multiple joint involvement Unspecified arthropathy, multiple sites [facility] Diagnosis Chronic pain of both knees Neuropathic pain Neuralgia, neuritis, and radiculitis, unspecified Chronic pain syndrome Lumbar spondylosis Lumbosacral spondylosis without myelopathy DDD (degenerative disc disease), cervical Degeneration of cervical intervertebral disc Arthritis, multiple joint involvement Unspecified arthropathy, multiple sites [facility] Diagnosis Chronic pain of both knees [...] or anxiety (HCC) documented in this encounter [facility]* Diagnosis Chronic pain of both knees Neuropathic pain Neuralgia, neuritis, and radiculitis, unspecified Chronic pain syndrome Lumbar spondylosis Lumbosacral spondylosis without myelopathy DDD (degenerative disc disease), cervical Degeneration of cervical intervertebral disc Arthritis, multiple joint involvement Unspecified arthropathy, multiple sites [facility]* Diagnosis Colovesical fistula Intestinovesical fistula Morbid obesity (HCC) Morbid obesity Poorly controlled diabetes mellitus (HCC) Type II or unspecified type diabetes mellitus without mention of complication, not stated as uncontrolled documented in this encounter [facility]* Diagnosis Colovesical fistula- Primary Intestinovesical fistula documented in this encounter [facility]* Diagnosis Colovesical fistula- Primary Intestinovesical fistula documented in this encounter [facility]* Diagnosis Colovesical fistula- Primary Intestinovesical fistula documented in this encounter [facility]* Diagnosis Medication management- Primary Encounter for long-term (current) use of other medications documented in this encounter [facility]* Diagnosis Colovesical fistula- Primary Intestinovesical fistula Screening for ischemic heart disease- Primary documented in this encounter [facility]* Diagnosis Chronic pain of both knees Neuropathic pain Neuralgia, neuritis, and radiculitis, unspecified Chronic pain syndrome Lumbar spondylosis Lumbosacral spondylosis without myelopathy DDD (degenerative disc disease), cervical Degeneration of cervical intervertebral disc Arthritis, multiple joint involvement Unspecified arthropathy, multiple sites documented in this encounter [facility]* Diagnosis APPOINTMENT CANCELLED- Primary documented in this encounter [facility]* Diagnosis Memory loss- Primary Mild episode of recurrent major depressive disorder (HCC) Nightmares Other dysfunctions of sleep stages or arousal from sleep 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 note* Diagnosis Colovaginal fistula- Primary Diverticulitis Diverticulitis of colon (without mention of hemorrhage) Abnormal CT scan Other nonspecific (abnormal) findings on radiological and other examinations of body structure Dementia, unspecified dementia severity, unspecified dementia type, unspecified whether behavioral, psychotic, or mood disturbance or anxiety (HCC) Morbid obesity (HCC) Morbid obesity 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 [facility] note* Diagnosis Memory loss 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 [facility] note* Diagnosis Colovaginal fistula Diabetes mellitus, type 2 ([facility]) Type II or unspecified type diabetes mellitus without mention of complication, not stated as uncontrolled CHF (congestive heart failure) ([facility] ([facility]) Congestive heart failure, unspecified documented in this encounter [facility] note* Diagnosis Moderate late onset Alzheimer's dementia without behavioral disturbance, psychotic disturbance, mood disturbance, or anxiety ([facility])- Primary Insomnia, unspecified type Apathetic behavior due to dementia ([facility]) Mild episode of recurrent major depressive disorder ([facility]) documented in this encounter [facility] note* Diagnosis Colovaginal fistula- Primary Colovesical fistula Intestinovesical fistula History of diverticulitis documented in this encounter [facility] note* Diagnosis Insomnia, unspecified type documented in this encounter [facility] note* Diagnosis Chronic pain of both knees [...] head and neck [facility] Diagnosis Other amnesia- Primary documented in this encounter [facility] note* Diagnosis Dysuria documented in this encounter [facility] note* Diagnosis Anemia, unspecified type- Primary Hyponatremia Hyposmolality and/or hyponatremia documented in this encounter [facility] note* Diagnosis Dysuria Chronic pain of both knees Neuropathic pain Neuralgia, neuritis, and radiculitis, unspecified Chronic pain syndrome Lumbar spondylosis Lumbosacral spondylosis without myelopathy DDD (degenerative disc disease), cervical Degeneration of cervical intervertebral disc Arthritis, multiple joint involvement Unspecified arthropathy, multiple sites documented in this encounter [facility] Discharge instructions* Attachments The following attachments cannot be sent through Care Everywhere. * Colon Polypectomy Discharge Instructions ([place]) [facility] Outpatient Procedure (Routine) - Authorized Specialty Diagnoses / Procedures Referred By Contac t Referred To Contact [facility] Diagnoses COPD with chronic bronchitis (HCC) SOB (shortness of breath) CHURCH (dyspnea on exertion) Procedures SPIROMETRY - BASELINE AND POST DILATOR BRNCDILAT RSPSE SPMTRY PRE&POST-BRNCDILAT ADMN Stephani Crooks PA-C [address] [place] [address] [facility] [address] [place] [id number] Referral ID Status Reason Start Date Expiration Date Visits Requested Visits Authorized [id number] Authorized Auto-Generat ed Referral 05/07/2022 11/06/2022 1 1 * Outpatient Procedure (Routine) - Authorized Specialty Diagnoses / Procedures Referred By Contac t Referred To Contact [facility] Diagnoses Chronic diastolic heart failure (HCC) SOB (shortness of breath) CHURCH (dyspnea on exertion) Procedures ECHO ECHO TTHRC R-T 2D W/WOM-MODE COMPL SPEC&COLR D Stephani Crooks PA-C [address] [place] [address] [facility] [address] [address] Referral ID Status Reason Start Date Expiration Date Visits Requested Visits Authorized [id number] Authorized Auto-Generat ed Referral 05/07/2022 11/06/2022 1 1 [place] for referral (narrative)* Outpatient Procedure (Routine) - Pending Review Specialty Diagnoses / Procedures Referred By Contac t Referred To Contact [facility] Diagnoses Colovesical fistula Procedures COLONOSCOPY DIAGNOSTIC COLONOSCOPY FLX DX W/COLLJ SPEC WHEN PFLeonel Larsen MD [address] [address] [facility] [address] [place] [id number] Referral ID Status Reason Start Date Expiration Date Visits Requested Visits Authorized [id number] Pending Review Auto-Generat ed Referral 02/18/2023 02/19/2024 1 1 [facility] Summary Purpose Family History No Family History Records FoundNo Family History Records FoundNo Family History Records FoundNo Family History Records FoundNo Family History Records FoundNo Family History Records FoundNo Family History Records Found Advance Directives Documents on File Type Date Recorded Patient [employer] Expl anation Advance Directive(s) 07/21/2020 9:36 AM [...] Documents on File Type Date Recorded Patient [employer] Workers Expl anation Advance Directive(s) 07/21/2020 9:36 AM [...] Documents on File Type Date Recorded Patient [employer] Workers Expl anation Advance Directives and Livin g Will 05/04/2023 1:18 PM Latest Code Status on File Code Status Date Activated Date Inactivated Comments Full Code 05/25/2023 8:10 AM 05/25/2023 2:17 PM Documents on File Type Date Recorded Patient [employer] Workers Expl anation Advance Directives and Livin g [...] Dysuria Nightmares Procedures CONSULT TO GERIATRICS OFFICE/OUTPATIENT [facility] 60-74 MINUTES Stephani Crooks PA-C [address] [place] [address] Referral ID Status Reason Start Date Expiration Date Visits Requested Visits Authorized [id number] Pending Review PCP Requested Referral 12/23/2022 12/23/2023 1 1 Specialty Diagnoses / Procedures Referred By Contac t Referred To Contact Colon and Rectal Surgery Diagnoses Colovesical fistula Procedures CONSULT TO COLO-RECTAL SURGERY OFFICE/OUTPATIENT [facility] 60-74 MINUTES Eufemia Chapa APRN.[employer]CH[employer] [address] [place] [address] Referral ID Status Reason Start Date Expiration Date Visits Requested Visits Authorized [id number] Pending Review PCP Requested Referral 01/06/2023 01/06/2024 1 1 Specialty Diagnoses / Procedures Referred By Contac t Referred To Contact Stephani Crooks PA-C [address] [place] [address] Referral ID Status Reason Start Date Expiration Date Visits Re quested Visits Authorized [id number] Closed 1 1 Specialty Diagnoses / Procedures Referred By Contac t Referred To Contact Colon and Rectal Surgery Diagnoses Colovesical fistula Procedures CONSULT TO COLO-RECTAL SURGERY OFFICE/OUTPATIENT [facility] MDM 60-74 MINUTES Leesa Ramirez MD [address] [facility] [place] [address] Referral ID Status Reason Start Date Expiration Date Visits Requested Visits Authorized [id number] Pending Review PCP Requested Referral 01/25/2023 01/25/2024 1 1 Specialty Diagnoses / Procedures Referred By Lovely t Referred To Contact Radiology Diagnoses Memory loss Procedures CT head wo IV contrast Shantal Serrano, 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 - [employer]CH[employer] [address] [place] [address] Referral ID Status Reason Start Date Expiration Date V isits Requested Visits Authorized [id number] Authorized 04/05/2023 10/02/2023 1 1 Referral ID Status Reason Start Date Expiration Date Visits Re quested Visits Authorized [id number] Closed 04/05/2023 10/02/2023 1 1 Additional Source Comments INFORMATION SOURCE (unrecogn ized section and content) DATE CREATED AUTHOR AUTHOR'S ORGANIZ ATION 04/13/2019 [facility] DATE CREATED AUTHOR AUTHOR'S ORGANIZ ATION 07/22/2021 [facility] DATE CREATED AUTHOR AUTHOR'S ORGANIZ ATION 01/06/2023 [facility] DATE CREATED AUTHOR AUTHOR'S ORGANIZ ATION 02/05/2023 [facility] DATE CREATED AUTHOR AUTHOR'S ORGANIZ ATION 09/02/2023 [facility] DATE CREATED AUTHOR AUTHOR'S ORGANIZ ATION 09/21/2023 [facility] Source Comments (unrecognize d section and content) In the event this informatio n is protected by the Federal Confidentiality of Alcohol and Drug Abuse Patient Records regulations: The Federal rules restrict any use of the information to criminally investigate or prosecute any alcohol or drug abuse patient.[facility] the event this information is protected by the Federal Confidentiality of Alcohol and Drug Abuse Patient Records regulations: The Federal rules restrict any use of the information to criminally investigate or prosecute any alcohol or drug abuse patient.[facility] the event this information is protected by the Federal Confidentiality of Alcohol and Drug Abuse Patient Records regulations: The Federal rules restrict any use of the information to criminally investigate or prosecute any alcohol or drug abuse patient.[facility] the event this information is protected by the Federal Confidentiality of Alcohol and Drug Abuse Patient Records regulations: The Federal rules restrict any use of the information to criminally investigate or prosecute any alcohol or drug abuse patient.[facility] the event this information is protected by the Federal Confidentiality of Alcohol and Drug Abuse Patient Records regulations: The Federal rules restrict any use of the information to criminally investigate or prosecute any alcohol or drug abuse patient.[facility] the event this information is protected by the Federal Confidentiality of Alcohol and Drug Abuse Patient Records regulations: The Federal rules restrict any use of the information to criminally investigate or prosecute any alcohol or drug abuse patient.[facility] the event this information is protected by the Federal Confidentiality of Alcohol and Drug Abuse Patient Records regulations: The Federal rules restrict any use of the information to criminally investigate or prosecute any alcohol or drug abuse patient.[facility] the event this information is protected by the Federal Confidentiality of Alcohol and Drug Abuse Patient Records regulations: The Federal rules restrict any use of the information to criminally investigate or prosecute any alcohol or drug abuse patient.[facility] the event this information is protected by the Federal Confidentiality of Alcohol and Drug Abuse Patient Records regulations: The Federal rules restrict any use of the information to criminally investigate or prosecute any alcohol or drug abuse patient.[facility] the event this information is protected by the Federal Confidentiality of Alcohol and Drug Abuse Patient Records regulations: The Federal rules restrict any use of the information to criminally investigate or prosecute any alcohol or drug abuse patient.[facility] the event this information is protected by the Federal Confidentiality of Alcohol and Drug Abuse Patient Records regulations: The Federal rules restrict any use of the information to criminally investigate or prosecute any alcohol or drug abuse patient.[facility] the event this information is protected by the Federal Confidentiality of Alcohol and Drug Abuse Patient Records regulations: The Federal rules restrict any use of the information to criminally investigate or prosecute any alcohol or drug abuse patient.[facility] the event this information is protected by the Federal Confidentiality of Alcohol and Drug Abuse Patient Records regulations: The Federal rules restrict any use of the information to criminally investigate or prosecute any alcohol or drug abuse patient.[facility] the event this information is protected by the Federal Confidentiality of Alcohol and Drug Abuse Patient Records regulations: The Federal rules restrict any use of the information to criminally investigate or prosecute any alcohol or drug abuse patient.[facility] the event this information is protected by the Federal Confidentiality of Alcohol and Drug Abuse Patient Records regulations: The Federal rules restrict any use of the information to criminally investigate or prosecute any alcohol or drug abuse patient.[facility] the event this information is protected by the Federal Confidentiality of Alcohol and Drug Abuse Patient Records regulations: The Federal rules restrict any use of the information to criminally investigate or prosecute any alcohol or drug abuse patient.[facility] the event this information is protected by the Federal Confidentiality of Alcohol and Drug Abuse Patient Records regulations: The Federal rules restrict any use of the information to criminally investigate or prosecute any alcohol or drug abuse patient.[facility] the event this information is protected by the Federal Confidentiality of Alcohol and Drug Abuse Patient Records regulations: The Federal rules restrict any use of the information to criminally investigate or prosecute any alcohol or drug abuse patient.[facility]In the event this information is protected by the Federal Confidentiality of Alcohol and Drug Abuse Patient Records regulations: The Federal rules restrict any use of the information to criminally investigate or prosecute any alcohol or drug abuse patient.[facility] the event this information is protected by the Federal Confidentiality of Alcohol and Drug Abuse Patient Records regulations: The Federal rules restrict any use of the information to criminally investigate or prosecute any alcohol or drug abuse patient.[facility] the event this information is protected by the Federal Confidentiality of Alcohol and Drug Abuse Patient Records regulations: The Federal rules restrict any use of the information to criminally investigate or prosecute any alcohol or drug abuse patient.[facility]In the event this information is protected by the Federal Confidentiality of Alcohol and Drug Abuse Patient Records regulations: The Federal rules restrict any use of the information to criminally investigate or prosecute any alcohol or drug abuse patient.[facility] the event this information is protected by the Federal Confidentiality of Alcohol and Drug Abuse Patient Records regulations: The Federal rules restrict any use of the information to criminally investigate or prosecute any alcohol or drug abuse patient.[facility]In the event this information is protected by the Federal Confidentiality of Alcohol and Drug Abuse Patient Records regulations: The Federal rules restrict any use of the information to criminally investigate or prosecute any alcohol or drug abuse patient.[facility]In the event this information is protected by the Federal Confidentiality of Alcohol and Drug Abuse Patient Records regulations: The Federal rules restrict any use of the information to criminally investigate or prosecute any alcohol or drug abuse patient.[facility]In the event this information is protected by the Federal Confidentiality of Alcohol and Drug Abuse Patient Records regulations: The Federal rules restrict any use of the information to criminally investigate or prosecute any alcohol or drug abuse patient.[facility]In the event this information is protected by the Federal Confidentiality of Alcohol and Drug Abuse Patient Records regulations: The Federal rules restrict any use of the information to criminally investigate or prosecute any alcohol or drug abuse patient.[facility]In the event this information is protected by the Federal Confidentiality of Alcohol and Drug Abuse Patient Records regulations: The Federal rules restrict any use of the information to criminally investigate or prosecute any alcohol or drug abuse patient.[facility]In the event this information is protected by the Federal Confidentiality of Alcohol and Drug Abuse Patient Records regulations: The Federal rules restrict any use of the information to criminally investigate or prosecute any alcohol or drug abuse patient.[facility]In the event this information is protected by the Federal Confidentiality of Alcohol and Drug Abuse Patient Records regulations: The Federal rules restrict any use of the information to criminally investigate or prosecute any alcohol or drug abuse patient.[facility] the event this information is protected by the Federal Confidentiality of Alcohol and Drug Abuse Patient Records regulations: The Federal rules restrict any use of the information to criminally investigate or prosecute any alcohol or drug abuse patient.[facility]In the event this information is protected by the Federal Confidentiality of Alcohol and Drug Abuse Patient Records regulations: The Federal rules restrict any use of the information to criminally investigate or prosecute any alcohol or drug abuse patient.[facility]In the event this information is protected by the Federal Confidentiality of Alcohol and Drug Abuse Patient Records regulations: The Federal rules restrict any use of the information to criminally investigate or prosecute any alcohol or drug abuse patient.[facility]In the event this information is protected by the Federal Confidentiality of Alcohol and Drug Abuse Patient Records regulations: The Federal rules restrict any use of the information to criminally investigate or prosecute any alcohol or drug abuse patient.[facility]In the event this information is protected by the Federal Confidentiality of Alcohol and Drug Abuse Patient Records regulations: The Federal rules restrict any use of the information to criminally investigate or prosecute any alcohol or drug abuse patient.[facility]In the event this information is protected by the Federal Confidentiality of Alcohol and Drug Abuse Patient Records regulations: The Federal rules restrict any use of the information to criminally investigate or prosecute any alcohol or drug abuse patient.[facility]In the event this information is protected by the Federal Confidentiality of Alcohol and Drug Abuse Patient Records regulations: The Federal rules restrict any use of the information to criminally investigate or prosecute any alcohol or drug abuse patient.[facility]In the event this information is protected by the Federal Confidentiality of Alcohol and Drug Abuse Patient Records regulations: The Federal rules restrict any use of the information to criminally investigate or prosecute any alcohol or drug abuse patient.[facility]In the event this information is protected by the Federal Confidentiality of Alcohol and Drug Abuse Patient Records regulations: The Federal rules restrict any use of the information to criminally investigate or prosecute any alcohol or drug abuse patient.[facility]In the event this information is protected by the Federal Confidentiality of Alcohol and Drug Abuse Patient Records regulations: The Federal rules restrict any use of the information to criminally investigate or prosecute any alcohol or drug abuse patient.[facility]In the event this information is protected by the Federal Confidentiality of Alcohol and Drug Abuse Patient Records regulations: The Federal rules restrict any use of the information to criminally investigate or prosecute any alcohol or drug abuse patient.[facility]In the event this information is protected by the Federal Confidentiality of Alcohol and Drug Abuse Patient Records regulations: The Federal rules restrict any use of the information to criminally investigate or prosecute any alcohol or drug abuse patient.[facility]In the event this information is protected by the Federal Confidentiality of Alcohol and Drug Abuse Patient Records regulations: The Federal rules restrict any use of the information to criminally investigate or prosecute any alcohol or drug abuse patient.[facility]In the event this information is protected by the Federal Confidentiality of Alcohol and Drug Abuse Patient Records regulations: The Federal rules restrict any use of the information to criminally investigate or prosecute any alcohol or drug abuse patient.[facility]In the event this information is protected by the Federal Confidentiality of Alcohol and Drug Abuse Patient Records regulations: The Federal rules restrict any use of the information to criminally investigate or prosecute any alcohol or drug abuse patient.[facility]In the event this information is protected by the Federal Confidentiality of Alcohol and Drug Abuse Patient Records regulations: The Federal rules restrict any use of the information to criminally investigate or prosecute any alcohol or drug abuse patient.[facility]In the event this information is protected by the Federal Confidentiality of Alcohol and Drug Abuse Patient Records regulations: The Federal rules restrict any use of the information to criminally investigate or prosecute any alcohol or drug abuse patient.[facility]In the event this information is protected by the Federal Confidentiality of Alcohol and Drug Abuse Patient Records regulations: The Federal rules restrict any use of the information to criminally investigate or prosecute any alcohol or drug abuse patient.[facility]In the event this information is protected by the Federal Confidentiality of Alcohol and Drug Abuse Patient Records regulations: The Federal rules restrict any use of the information to criminally investigate or prosecute any alcohol or drug abuse patient.[facility]In the event this information is protected by the Federal Confidentiality of Alcohol and Drug Abuse Patient Records regulations: The Federal rules restrict any use of the information to criminally investigate or prosecute any alcohol or drug abuse patient.[facility]In the event this information is protected by the Federal Confidentiality of Alcohol and Drug Abuse Patient Records regulations: The Federal rules restrict any use of the information to criminally investigate or prosecute any alcohol or drug abuse patient.[facility] SouthIn the event this information is protected by the Federal Confidentiality of Alcohol and Drug Abuse Patient Records regulations: The Federal rules restrict any use of the information to criminally investigate or prosecute any alcohol or drug abuse patient.[facility] SouthIn the event this information is protected by the Federal Confidentiality of Alcohol and Drug Abuse Patient Records regulations: The Federal rules restrict any use of the information to criminally investigate or prosecute any alcohol or drug abuse patient.[facility] SouthIn the event this information is protected by the Federal Confidentiality of Alcohol and Drug Abuse Patient Records regulations: The Federal rules restrict any use of the information to criminally investigate or prosecute any alcohol or drug abuse patient.[facility] SouthIn the event this information is protected by the Federal Confidentiality of Alcohol and Drug Abuse Patient Records regulations: The Federal rules restrict any use of the information to criminally investigate or prosecute any alcohol or drug abuse patient.[facility] SouthIn the event this information is protected by the Federal Confidentiality of Alcohol and Drug Abuse Patient Records regulations: The Federal rules restrict any use of the information to criminally investigate or prosecute any alcohol or drug abuse patient.[facility] SouthIn the event this information is protected by the Federal Confidentiality of Alcohol and Drug Abuse Patient Records regulations: The Federal rules restrict any use of the information to criminally investigate or prosecute any alcohol or drug abuse patient.[facility] SouthIn the event this information is protected by the Federal Confidentiality of Alcohol and Drug Abuse Patient Records regulations: The Federal rules restrict any use of the information to criminally investigate or prosecute any alcohol or drug abuse patient.[facility] SouthIn the event this information is protected by the Federal Confidentiality of Alcohol and Drug Abuse Patient Records regulations: The Federal rules restrict any use of the information to criminally investigate or prosecute any alcohol or drug abuse patient.[facility] SouthIn the event this information is protected by the Federal Confidentiality of Alcohol and Drug Abuse Patient Records regulations: The Federal rules restrict any use of the information to criminally investigate or prosecute any alcohol or drug abuse patient.[facility] SouthIn the event this information is protected by the Federal Confidentiality of Alcohol and Drug Abuse Patient Records regulations: The Federal rules restrict any use of the information to criminally investigate or prosecute any alcohol or drug abuse patient.[facility] SouthIn the event this information is protected by the Federal Confidentiality of Alcohol and Drug Abuse Patient Records regulations: The Federal rules restrict any use of the information to criminally investigate or prosecute any alcohol or drug abuse patient.[facility] SouthIn the event this information is protected by the Federal Confidentiality of Alcohol and Drug Abuse Patient Records regulations: The Federal rules restrict any use of the information to criminally investigate or prosecute any alcohol or drug abuse patient.[facility] SouthIn the event this information is protected by the Federal Confidentiality of Alcohol and Drug Abuse Patient Records regulations: The Federal rules restrict any use of the information to criminally investigate or prosecute any alcohol or drug abuse patient.[facility] SouthIn the event this information is protected by the Federal Confidentiality of Alcohol and Drug Abuse Patient Records regulations: The Federal rules restrict any use of the information to criminally investigate or prosecute any alcohol or drug abuse patient.[facility] SouthIn the event this information is protected by the Federal Confidentiality of Alcohol and Drug Abuse Patient Records regulations: The Federal rules restrict any use of the information to criminally investigate or prosecute any alcohol or drug abuse patient.[facility] SouthIn the event this information is protected by the Federal Confidentiality of Alcohol and Drug Abuse Patient Records regulations: The Federal rules restrict any use of the information to criminally investigate or prosecute any alcohol or drug abuse patient.[facility] SouthIn the event this information is protected by the Federal Confidentiality of Alcohol and Drug Abuse Patient Records regulations: The Federal rules restrict any use of the information to criminally investigate or prosecute any alcohol or drug abuse patient.[facility] SouthIn the event this information is protected by the Federal Confidentiality of Alcohol and Drug Abuse Patient Records regulations: The Federal rules restrict any use of the information to criminally investigate or prosecute any alcohol or drug abuse patient.[facility] SouthIn the event this information is protected by the Federal Confidentiality of Alcohol and Drug Abuse Patient Records regulations: The Federal rules restrict any use of the information to criminally investigate or prosecute any alcohol or drug abuse patient.[facility] SouthIn the event this information is protected by the Federal Confidentiality of Alcohol and Drug Abuse Patient Records regulations: The Federal rules restrict any use of the information to criminally investigate or prosecute any alcohol or drug abuse patient.[facility] SouthIn the event this information is protected by the Federal Confidentiality of Alcohol and Drug Abuse Patient Records regulations: The Federal rules restrict any use of the information to criminally investigate or prosecute any alcohol or drug abuse patient.[facility] SouthIn the event this information is protected by the Federal Confidentiality of Alcohol and Drug Abuse Patient Records regulations: The Federal rules restrict any use of the information to criminally investigate or prosecute any alcohol or drug abuse patient.[facility] SouthIn the event this information is protected by the Federal Confidentiality of Alcohol and Drug Abuse Patient Records regulations: The Federal rules restrict any use of the information to criminally investigate or prosecute any alcohol or drug abuse patient.[facility] SouthIn the event this information is protected by the Federal Confidentiality of Alcohol and Drug Abuse Patient Records regulations: The Federal rules restrict any use of the information to criminally investigate or prosecute any alcohol or drug abuse patient.[facility] SouthIn the event this information is protected by the Federal Confidentiality of Alcohol and Drug Abuse Patient Records regulations: The Federal rules restrict any use of the information to criminally investigate or prosecute any alcohol or drug abuse patient.[facility] SouthIn the event this information is protected by the Federal Confidentiality of Alcohol and Drug Abuse Patient Records regulations: The Federal rules restrict any use of the information to criminally investigate or prosecute any alcohol or drug abuse patient.[facility] SouthIn the event this information is protected by the Federal Confidentiality of Alcohol and Drug Abuse Patient Records regulations: The Federal rules restrict any use of the information to criminally investigate or prosecute any alcohol or drug abuse patient.[facility] SouthIn the event this information is protected by the Federal Confidentiality of Alcohol and Drug Abuse Patient Records regulations: The Federal rules restrict any use of the information to criminally investigate or prosecute any alcohol or drug abuse patient.[facility] SouthIn the event this information is protected by the Federal Confidentiality of Alcohol and Drug Abuse Patient Records regulations: The Federal rules restrict any use of the information to criminally investigate or prosecute any alcohol or drug abuse patient.[facility] SouthIn the event this information is protected by the Federal Confidentiality of Alcohol and Drug Abuse Patient Records regulations: The Federal rules restrict any use of the information to criminally investigate or prosecute any alcohol or drug abuse patient.[facility] SouthIn the event this information is protected by the Federal Confidentiality of Alcohol and Drug Abuse Patient Records regulations: The Federal rules restrict any use of the information to criminally investigate or prosecute any alcohol or drug abuse patient.[facility] SouthIn the event this information is protected by the Federal Confidentiality of Alcohol and Drug Abuse Patient Records regulations: The Federal rules restrict any use of the information to criminally investigate or prosecute any alcohol or drug abuse patient.[facility] SouthIn the event this information is protected by the Federal Confidentiality of Alcohol and Drug Abuse Patient Records regulations: The Federal rules restrict any use of the information to criminally investigate or prosecute any alcohol or drug abuse patient.[facility] SouthIn the event this information is protected by the Federal Confidentiality of Alcohol and Drug Abuse Patient Records regulations: The Federal rules restrict any use of the information to criminally investigate or prosecute any alcohol or drug abuse patient.[facility] Reason for Visit (unrecogniz ed section and content) Reason Onset Date Comments Refill Request 03/31/2022 Reason Onset Date Comments Refill Request 04/21/2022 Reason Comments Multiple Missed Appointment Reason Comments 6 Month Exam Specialty Diagnoses / Procedures Referred By Lovely estrada Referred To Contact Family Practice / FAMILY MEDICINE Diagnoses 6 mo follow up /meds Procedures 4C MD Valeriy Ortega Rayanne, ION [address] [place] [address] Referral ID Status Reason Start Date Expiration Date Visits Re quested Visits Authorized [id number] Closed 05/05/2022 11/06/2022 1 1 Reason Comments [...] RSPSE SPMTRY PRE&POST-BRNCDILAT ADMStephani Vazquez PA-C [address] [place] [address] [facility] [address] [place] [address] Referral ID Status Reason Start Date Expiration Date V isits Requested Visits Authorized [id number] Closed Auto-Generate d Referral 05/07/2022 11/06/2022 1 1 Reason Comments Social Work Services Reason Comments Recheck Specialty Diagnoses / Procedures Referred By Contac t Referred To Contact Family Practice / FAMILY MEDICINE Diagnoses 4 weeks follow up Procedures 4C MD Brigitte Ortega Jeffrey A, MD [address] [place] [address] Referral ID Status Reason Start Date Expiration Date Visits Re quested Visits Authorized [id number] Closed 05/24/2022 11/06/2022 1 1 Reason Comments [facility] social service manager verbal order reques t Reason Comments Patient [...] med check Procedures 4C Leno Abrams MD [address] [place] [address] Leno Briggs MD [address] [place] [address] Referral ID Status Reason Start Date Expiration Date Visits Re quested Visits Authorized [id number] Closed 07/05/2022 11/06/2022 1 1 Reason Comments [...] type Procedures CONSULT TO URO GYNECOLOGY OFFICE/OUTPATIENT [facility] 60-74 MINUTES Madalyn Degroot APRN.CNM [address] [place] [address] Referral ID Status Reason Start Date Expiration Date Visits Requested Visits Authorized [id number] Pending Review PCP Requested Referral Auto-Generate d Referral 12/28/2022 12/28/2023 1 1 Reason Onset Date Comments Refill Request 01/05/2023 Reason Comments vaginal pain Reason Onset Date Comments Refill Request 01/18/2023 Reason Comments Consult Colovesical fistula Specialty Diagnoses / Procedures Referred By Contac t Referred To Contact Colon and Rectal Surgery Diagnoses Colovesical fistula Procedures CONSULT TO COLO-RECTAL SURGERY OFFICE/OUTPATIENT [facility] 60-74 MINUTES Eufemia Chapa, 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.[employer] ARCH[employer]ECT [address] [place] [address] Referral ID Status Reason Start Date Expiration Date Visits Requested Visits Authorized [id number] Pending Review PCP Requested Referral 01/06/2023 01/06/2024 [...] dementia Procedures geriatric assessment Stephani Crooks [address] [place] [address] [facility] [address] [place] [address] Referral ID Status Reason Start Date Expiration Date V isits Requested Visits Authorized [id number] Pending Review 03/16/2023 09/12/2023 1 1 Reason Comments New Patient Evaluation for colov esical fistula Other Patient accompanied by Gail sister, Mariela daughter Reason Onset Date Comments Refill Request 04/10/2023 Specialty Diagnoses / Procedures Referred By Contac t Referred To Contact Radiology Diagnoses Memory loss Procedures CT head wo IV contrast Shantal Serrano, 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 - [employer] ARCHIT[employer] [address] [facility] [address] [place] [address] Referral ID Status Reason Start Date Expiration Date Visits Re quested Visits Authorized [id number] Closed 04/05/2023 10/02/2023 1 1 Specialty Diagnoses / Procedures Referred By Contac t Referred To Contact 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] Procedures [place] COLONOSCOPY FLX DX W/COLLJ SPEC WHEN PFRMD COLONOSCOPY Samantha Nava MD [address] [place] [address] [facility] [address] [facility] [place] [address] Referral ID Status Reason Start Date Expiration Date Visits Re quested Visits Authorized [id number] 1 1 Reason Comments Memory Loss Reason Comments Results Best # [phone]( Mariela, daughter)Discuss results of colonoscopy done 05/25/23 Reason Comments Med Refill Reason Comments Recheck Follow up 6 months Reason Onset Date Comments Med Refill 07/05/2023 Reason Onset Date Comments Refill Request 08/23/2023 Reason Onset Date Comments Cancelled Appointment 08/16/2023 Cancel miles ointment 10.10.23 2:45pm Reason Onset Date Comments change appointment 09/14/2023 Care Teams (unrecognized sec tion and content) Department Store Salesperson Relationship Specialty Start Date End Date Leno Briggs MD [facility] [address] PCP - General Family Practice 11/25/16 Department Store Salesperson Relationship Specialty Start Date End Date Leno Briggs MD [address] [place] [address], [place] [address] PCP - General Family Practice 11/25/16 Department Store Salesperson Relationship Specialty Start Date End Date Leno Briggs MD [address] [place] [address], [place] [address] PCP - General Family Practice 11/25/16 Department Store Salesperson Relationship Specialty Start Date End Date Leno Briggs MD [address] [place] [address], [place] [address] PCP - General Family Practice 11/25/16 Department Store Salesperson Relationship Specialty Start Date End Date Leno Briggs MD [address] [place] [address], [place] [address] PCP - General Family Practice 11/25/16 Department Store Salesperson Relationship Specialty Start Date End Date Leno Briggs MD [address] [place] [address], [place] [address] PCP - General Family Practice 11/25/16 Department Store Salesperson Relationship Specialty Start Date End Date Leno Briggs MD [address] [place] [address], [place] [address] PCP - General Family Practice 11/25/16 Department Store Salesperson Relationship Specialty Start Date End Date Leno Briggs MD [address] [place] [address] [place] [address] PCP - General Family Practice 11/25/16 Department Store Salesperson Relationship Specialty Start Date End Date Leno Briggs MD [address] [facility] [address] PCP - General Family Practice 11/25/16 Department Store Salesperson Relationship Specialty Start Date End Date Leno Briggs MD [address] [facility] [address] PCP - General Family Practice 11/25/16 Department Store Salesperson Relationship Specialty Start Date End Date Leno Briggs MD [facility] [address] PCP - General Family Practice 11/25/16 Department Store Salesperson Relationship Specialty Start Date End Date Leno Briggs MD [address] [place] [address], [place] [address] PCP - General Family Practice 11/25/16 Department Store Salesperson Relationship Specialty Start Date End Date Leno Briggs MD [facility] [address] PCP - General Family Practice 11/25/16 Department Store Salesperson Relationship Specialty Start Date End Date Leno Briggs MD [facility] [address] PCP - General Family Practice 11/25/16 Department Store Salesperson Relationship Specialty Start Date End Date Leno Briggs MD [facility] [address] PCP - General Family Practice 11/25/16 Department Store Salesperson Relationship Specialty Start Date End Date Leno Briggs MD [facility] [address] PCP - General Family Practice 11/25/16 Department Store Salesperson Relationship Specialty Start Date End Date Leno Briggs MD [address] [place] [address], [place] [address] PCP - General Family Practice 11/25/16 Department Store Salesperson Relationship Specialty Start Date End Date Leno Briggs MD [address] [facility] [address] PCP - General Family Practice 11/25/16 Department Store Salesperson Relationship Specialty Start Date End Date Leno Briggs MD [facility] [address] PCP - General Family Practice 11/25/16 Department Store Salesperson Relationship Specialty Start Date End Date Leno Briggs MD [address] [place] [address], [place] [address] PCP - General Family Practice 11/25/16 Department Store Salesperson Relationship Specialty Start Date End Date Leno Briggs MD [address] [place] [address], [place] [address] PCP - General Family Medicine 11/25/16 Department Store Salesperson Relationship Specialty Start Date End Date Leno Briggs MD [address] [place] [address] [place] [address] PCP - General Family Medicine 11/25/16 Department Store Salesperson Relationship Specialty Start Date End Date Leno Briggs MD [address] [place] [address] [place] [address] PCP - General Family Medicine 11/25/16 Department Store Salesperson Relationship Specialty Start Date End Date Leno Briggs MD [address] [place] [address], [place] [address] PCP - General Family Medicine 11/25/16 Department Store Salesperson Relationship Specialty Start Date End Date Leno Briggs MD [address] [place] [address], [place] [address] PCP - General Family Medicine 11/25/16 Department Store Salesperson Relationship Specialty Start Date End Date Leno Briggs MD [address] [facility] [address] PCP - General Family Medicine 11/25/16 Department Store Salesperson Relationship Specialty Start Date End Date Leno Briggs MD [address] [facility] [address] PCP - General Family Medicine 11/25/16 Department Store Salesperson Relationship Specialty Start Date End Date Leno Briggs MD [facility] [address] PCP - General Family Medicine 11/25/16 Department Store Salesperson Relationship Specialty Start Date End Date Leno Briggs MD [address] [place] [address], [place] [address] PCP - General Family Medicine 11/25/16 Department Store Salesperson Relationship Specialty Start Date End Date Leno Briggs MD [address] [place] [address], [place] [address] PCP - General Family Medicine 11/25/16 Department Store Salesperson Relationship Specialty Start Date End Date Leno Briggs MD [facility] [address] PCP - General Family Medicine 11/25/16 Department Store Salesperson Relationship Specialty Start Date End Date Leno Briggs MD [facility] [address] PCP - General Family Medicine 11/25/16 Department Store Salesperson Relationship Specialty Start Date End Date Leno Briggs MD [facility] [address] PCP - General Family Medicine 11/25/16 Department Store Salesperson Relationship Specialty Start Date End Date Leno Briggs MD [facility] [address] PCP - General Family Medicine 11/25/16 Department Store Salesperson Relationship Specialty Start Date End Date Leno Briggs MD [address] [facility] [address] PCP - General Family Medicine 11/25/16 Department Store Salesperson Relationship Specialty Start Date End Date Leno Briggs MD [address] [facility] [address] PCP - General Family Medicine 11/25/16 Department Store Salesperson Relationship Specialty Start Date End Date Leno Briggs MD [address] [facility] [address] PCP - General Family Medicine 11/25/16 Department Store Salesperson Relationship Specialty Start Date End Date Leno Briggs MD [facility] [address] PCP - General Family Medicine 11/25/16 Department Store Salesperson Relationship Specialty Start Date End Date Leno Briggs MD [facility] [address] PCP - General Family Medicine 11/25/16 Department Store Salesperson Relationship Specialty Start Date End Date Leno Briggs MD [facility] [address] PCP - General Family Medicine 11/25/16 Department Store Salesperson Relationship Specialty Start Date End Date Leno Briggs MD [facility] [address] PCP - General Family Medicine 11/25/16 Department Store Salesperson Relationship Specialty Start Date End Date Leno Briggs MD [facility] [address] PCP - General Family Medicine 11/25/16 Department Store Salesperson Relationship Specialty Start Date End Date Leno Briggs MD [facility] [address] PCP - General Family Medicine 11/25/16 Department Store Salesperson Relationship Specialty Start Date End Date Leno Briggs MD [address] [address] [place] [address] PCP - General 04/01/19 Department Store Salesperson Relationship Specialty Start Date End Date Leno Briggs MD [address] [address] [place], [place] [id number] PCP - General 04/01/19 Department Store Salesperson Relationship Specialty Start Date End Date Leno Briggs MD [address] [place], [place] [id number] PCP - General 04/01/19 Department Store Salesperson Relationship Specialty Start Date End Date Leno Briggs MD [address] [place], [place] [id number] PCP - General 04/01/19 Department Store Salesperson Relationship Specialty Start Date End Date Leno Briggs MD [address] [place], [place] [id number] PCP - General 04/01/19 Department Store Salesperson Relationship Specialty Start Date End Date Leno Briggs MD [address] [place] [address] [place] [address] PCP - General 04/01/19 Department Store Salesperson Relationship Specialty Start Date End Date Leno Briggs MD [address] [address] [place], [place] [id number] PCP - General 04/01/19 Department Store Salesperson Relationship Specialty Start Date End Date Leno Briggs MD [address] [place] [address] PCP - General Family Medicine 11/25/16 Department Store Salesperson Relationship Specialty Start Date End Date Leno Briggs MD [address] [place] [address] PCP - General Family Medicine 11/25/16 Department Store Salesperson Relationship Specialty Start Date End Date Leno Briggs MD [address] [place] [address] PCP - General Family Medicine 11/25/16 Department Store 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 Relationship Specialty Start Date End Date Leno Briggs MD [address] [place] [address] PCP - General Family Medicine 11/25/16 Department Store Salesperson Relationship Specialty Start Date End Date Leno Briggs MD [address] [place] [address] PCP - General 04/01/19 Department Store Salesperson Relationship Specialty Start Date End Date Leno Briggs MD [address] [place] [address] PCP - General 04/01/19 Department Store Salesperson Relationship Specialty Start Date End Date Leno Briggs MD [address] [place] [address] PCP - General Family Medicine 11/25/16 Department Store Salesperson Relationship Specialty Start Date End Date Leno Briggs MD [address] [place] [address] PCP - General Family Medicine 11/25/16 Department Store Salesperson Relationship Specialty Start Date End Date Leno Briggs MD [address] [place] [address] PCP - General Family Medicine 11/25/16 Scheduled [...] BE BASED ON THE PRIMARY CLINICAL RECORDS. [employer] provides no warranty or guarantee of the accuracy or completeness of information in this document.
--- OUTSIDE RECORDS SUMMARY | 2023-11-06 18:11 | XMS RPT_ITS | CCD ---
Author Name Unknown Address [address] [place] [address] Organization [employer] Care Team Providers Care Automotive Alignment Specialist Name Role Phone LINO ZHU Unavailable Unavailable Leno Briggs Unavailable Unavailable LINO ZHU Unavailable Unavailable LINO ZHU Unavailable Unavailable Leno Briggs Unavailable Unavailable Leno Brigsg MD Primary Care Provider [phone] Leno Briggs MD Primary Care Provider Leno Briggs MD Primary Care Provider Leno Briggs MD Primary Care Provider [phone] MARII VAIL DO Attending Unavailable PHYSICIAN, NONE Primary Care Unavailable LENO BRIGGS Primary Care Unavailable MADALYN DEGROOT Referring Unavailable EUFEMIA CHAPA Attending Unavailable Leno Briggs MD Primary Care Provider Leno Briggs MD Primary Care Provider Leno Briggs MD Primary Care Provider [phone] LENO BRIGGS Primary Care Unavailable MADALYN DEGROOT [...] 10-12-20 11 Mental Status Change, Dizziness, Unknown [facility] Repository (1 source) Contrast media; Translations: [CONTRAST DYE] Propensity to adverse reactions (disorder) [facility] (20 sources) escitalopram; Translations: [ESCITALOPRAM] Drug Allergy 05-28-20 13 Other: See Comments [facility] (20 sources) sertraline; Translations: [SERTRALINE HCL] Drug Allergy 10-12-20 11 Other: See Comments [facility] (20 sources) sulfamethoxazole / trimethoprim; Translations: [SULFAMETHOXAZOLE-T RIMETHOPRIM] Drug Allergy 01-21-20 15 Itching [facility] (20 sources) traMADol; Translations: [TRAMADOL] Drug Allergy 10-12-20 11 Other: See Comments, Dermatitis, Dizziness, Other [facility] Repository (20 sources) Garlic preparation; Translations: [GARLIC OIL] Drug Allergy 08-09-20 19 Other: See Comments [facility] Work Phone: (20 sources) oxybutynin; Translations: [OXYBUTYNIN] Drug Allergy 12-03-19 Other: See Comments [facility] Work Phone: (13 sources) traZODone Drug Allergy 01-15-20 Other [facility] (13 sources) Iodinated Contrast Media Drug Allergy 01-15-20 Other [facility] Medications Current Medications Medication Drug Class(es) Dates [...] 11-25-2016 Chronic Other aftercare (1 source) Other [facility] (current) drug therapy; Translations: [Medication management] Onset: [...] (20 sources) Drug therapy finding; Translations: [Other long term care phlebotomist (current) drug therapy] Onset: 11-25-2016 01-04-2020 Episodic [...] Results Test Name Value Interpretation Reference Range [facility] it Vital Signs Date Time Vital Sign Value Performing Clinician Amy perdue 06-21-2023 14:28-0400 Body weight 137.44 kg Leno Briggs MD Work Phone: [facility] 06-21-2023 14:28-0400 Diastolic blood pressure 84 mm[Hg] Leno Briggs MD Work Phone: [facility] 06-21-2023 14:28-0400 Heart rate 80 /min Leno Briggs MD Work Phone: [facility] 06-21-2023 14:28-0400 Respiratory rate 14 /min Leno Briggs MD Work Phone: [facility] 06-21-2023 14:28-0400 Systolic blood pressure 136 mm[Hg] Leno Briggs MD Work Phone: [facility] 05-25-2023 11:49-0400 Diastolic blood pressure 77 mm[Hg] Samantha Nava MD Work Phone: [facility] Encounters Encounter Date Encounter Type Care Provider Facility Start: 09-19-2023 ambulatory Leno silva MD Work Phone: [facility] Procedures Date Procedure Procedure Detail Performing Clinician Start: 06-21-2023 Drug tst prsmv instr mnt chem analyzers pr date Leno Briggs MD Work Phone: Start: 05-25-2023 Colonoscopy Samantha Santillan ch, MD Work Phone: Start: 05-04-2023 Cyanocobalamin vitamin b-12 Shantal Serrano DIAPER MACHINE TENDER - CURRICULUM COUNSELOR Work Phone: Start: 11-04-2022 INFLUENZA SEASONAL QUADRIVALENT HIGH DOSE AGE 65+ Stephani Crooks PA-C Work Phone: Start: 05-18-2022 Brncdilat rspse spmt ry pre&post-brncdilat admn Stephani Crooks PA-C Work Phone: Plan of Treatment Date Care Activity Detail Author Start: 05-25-2028 Screening for malign ant neoplasm of colon [facility] Start: 08-31-2024 3 comp foot exam completed Diabetic Foot Exam [facility] Start: 08-31-2024 Covid-19 Vaccine ( season) Covid-19 Vaccine ( season) [facility] Immunizations Immunization Date Immunization Notes Care Provider Verito paulino 08-31-2023 influenza (HD-IIV4) vaccine, age 65+ yr, high dose, quadrivalent, PF (FLUZONE HIGH-DOSE) Leno Briggs MD Work Phone: [facility] 08-31-2023 pneumococcal (PCV20) vaccine, 20 valent (PREVNAR 20) Leno Briggs MD Work Phone: [facility] 11-04-2022 influenza, high-dose , quadrivalent vaccine (FLUZONE HIGH DOSE QUADRIVALENT) Stephani Crooks PA-C Work Phone: [facility] 11-04-2022 influenza virus vacc ine, unspecified formulation Samantha Nava MD Work Phone: [facility] 09-03-2021 influenza, high-dose , quadrivalent vaccine (FLUZONE HIGH DOSE QUADRIVALENT) Leno Briggs MD Work Phone: [facility] 03-17-2021 COVID-19 vaccine, fu ll dose (MODERNA) Leno Briggs MD Work Phone: [facility] 02-17-2021 COVID-19 vaccine, fu ll dose (MODERNA) Leno Briggs MD Work Phone: [facility] 07-31-2019 influenza, high dose seasonal, preservative-free Leno Briggs MD Work Phone: [facility] 09-13-2018 influenza, high dose seasonal, preservative-free Leno Briggs MD Work Phone: [facility] 12-12-2017 pneumococcal polysaccharide vaccine, 23 valent Leno Briggs MD Work Phone: [facility] 09-27-2017 influenza, injectabl e, quadrivalent, contains preservative Leno Briggs MD Work Phone: [facility] 08-27-2016 influenza, injectabl e, quadrivalent, contains preservative Leno Briggs MD Work Phone: [facility] Work Phone: 09-15-2015 influenza, high dose seasonal, preservative-free Leno Briggs MD Work Phone: [facility] Work Phone: 09-15-2015 pneumococcal conjuga te vaccine, 13 valent Leno Briggs MD Work Phone: [facility] Work Phone: 09-20-2014 influenza, seasonal, injectable Leno Briggs MD Work Phone: [facility] Work Phone: 03-27-2014 zoster vaccine, live Leno Briggs MD Work Phone: [facility] Work Phone: 10-24-2013 influenza virus vacc ine, unspecified formulation Leno Briggs MD Work Phone: [facility] 09-06-2012 influenza virus vacc ine, unspecified formulation Leno Briggs MD Work Phone: [facility] Work Phone: 06-21-2012 pneumococcal polysaccharide vaccine, 23 valent Leno Briggs MD Work Phone: [facility] Work Phone: 04-24-2012 pneumococcal polysaccharide vaccine, 23 valent Leno Briggs MD Work Phone: [facility] Work Phone: Payers Date Payer Category Payer Medicare UHC AARP MEDICAR E UHC AARP MEDICARE HMO [id number] 2021-Present [phone] [address] [address] [place] [address] O [id number] 2021 Medicare [id number] 2021 Private Health Insurance [id number] 1940 Unknown [id number] Medicare [id number] Social History Date Type Detail Facility Start: 08-15-2012 End: 04-05-2023 Tobacco smoking status NHIS Ex-smoker [facility] End: 09-22-1997 History of tobacco use Current smoker [facility] End: 09-22-1997 History of tobacco use Cigarette Smoker [facility] Start: 08-15-2012 End: 04-05-2023 Cigarettes smoked current (pack per day) - Reported 3 [facility] Start: 08-15-2012 End: 07-05-2022 Tobacco use and exposure Smokeless tobacco non-user [facility] Start: 10-13-2021 End: 08-31-2023 Alcohol intake Current non-drinker of alcohol (finding) [facility] Start: 1940 Sex Assigned At Female C [facility] Start: 03-12-2022 End: 05-30-2023 Exposure to SARS-CoV-2 (event) Not sure [facility] Work Phone: Start: 07-09-2022 End: 07-19-2022 Exposure to SARS-CoV-2 (event) Unable to assess [facility] Work Phone: Start: 04-01-2023 History SDOH Alcohol Frequency 1 [facility] Start: 04-01-2023 History SDOH Alcohol Std Drinks 0 [facility] Start: 04-01-2023 History SDOH Social Connections Phone 4 [facility] Start: 04-01-2023 History SDOH Social Connections Get Together 5 [facility] Start: 04-01-2023 History SDOH Social Connections Membership 2 [facility] Start: 04-05-2023 End: 05-30-2023 Alcohol intake Lifetime non-drinker (finding) [facility] Start: 1940 Sex Assigned At Not on file [facility] Start: 04-05-2023 End: 04-11-2023 Tobacco use panel [facility] Within the last year , have you been afraid of your partner or ex-partner? No [facility] Are you now , , , , never or living with a partner? [facility] How often to you hav e a drink containing alcohol? Never [facility] How many standard drinks containing alcohol do you have on a typical day? Patient does not drink [facility] How hard is it for y ou to pay for the very basics like food, housing, medical care, and heating Not very hard [facility] Do you feel stress - tense, restless, nervous, or anxious, or unable to sleep at night because your mind is troubled all the time - these days [OSQ] Only a little [facility] (I/We) worried wheth er (my/our) food would run out before (I/we) got money to buy more. Never true [facility] Start: 07-17-2021 Gender identity Identifies as female gender (finding) [facility] Start: 07-17-2021 Sexual orientation Heterosexual (torres parker) [facility] Medical Equipment Procedure Code Equipment Code Equipment [...] Miscellaneous Notes PA approved faxing approval [facility] [phone] Daughter was notified approved not sure on cost of drug with insurance covering will need to call pharmacy to get info [place] Reviewed medication and rx was sent correctly 2 BID for 90 day supply is 360 tab, did submit a PA to see if cost can be lowered for 90 day supply [place] [facility] documented in this encounter [facility] 09-15-2023 Telephone encounter Note Left message notifying and to call back with which way they'd like to do the visit. [facility] 09-15-2023 Miscellaneous Notes Left message notifying and to call back with which way they'd like to do the visit. OK for virtual visit although we will not be able to facilitate memory testing over MyChart or phone. If they are wanting memory testing then visit will need to be in the office. Name of caller: Mariela Contact phone number: [phone] Relationship to Patient: Chandan Provider: Shantal Serrano [...] their call: Yes documented in this encounter [facility] 09-15-2023 Telephone encounter Note OK for virtual visit although we will not be able to facilitate memory testing over MyChart or phone. If they are wanting memory testing then visit will need to be in the office. [employer] [facility] 09-14-2023 Telephone encounter Note Name of caller: Mariela Contact phone number: [phone] Relationship to Patient: Daughter Provider: Shantal Serrano APRN, CNP Practice: [facility] Chief Complaint/Reason for Call: Mariela [...] business hours to return their call: Yes [facility] 09-02-2023 Miscellaneous Notes Daughter was notified Brandy [...] stable or not. documented in this encounter [facility] 08-31-2023 Note HNO ID: [id number] Author: Leno Briggs MD Service: ? Author [...] TACO (obstructive sleep apnea) [facility] [employer] [phone] Pain due to total left knee replacement ([facility]) 06/08/2018 Personal history of colonic polyps 01/23/2016 Primary insomnia 03/16/2017 Brain [place] 06/26/2018 recommended Klonopin every other day for [...] CYSTOSCOPY 09/21/12 EGD 10/17/2011 Dr Negrete in [place] EGD W/O OR W/BRUSH/WASH 05/16/2014 EGD EGD [...] Mother Lipids Mother HIGH CHOLESTEROL Heart Father [place] Ischemic Heart Disease Father STROKE other (diabetic) [...] completed and revi (more content not included)... [facility] 08-23-2023 Miscellaneous Notes The following approved [...] Nel Cope LPN. documented in this encounter [facility] 08-16-2023 Telephone encounter Note Preferred contact number: [phone] Reason for Visit: Caller states she would like to cancel appointment due to transportation and would like a call to schedule. Please advise. Thank you Urgency of Appointment: na Medications in need of refill: na [facility] 08-16-2023 Miscellaneous Notes Preferred contact number: [phone] Reason for Visit: Caller states she would like to cancel appointment due to transportation and would like a call to schedule. Please advise. Thank you Urgency of Appointment: na Medications in need of refill: na documented in this encounter [facility] 07-05-2023 Telephone encounter Note Daughter wanted to [...] prior to picking up the medication: N/A [facility] 07-05-2023 Miscellaneous Notes Daughter wanted to know [...] the medication: N/A documented in this encounter [facility] 07-05-2023 Miscellaneous Notes Spoke with pt's daughter and information below given. Shelby Rogel LPN Left message for pt's daughter to contact office. Grecia Riley LPN Let family know the Aricept (donepezil) is prescribed by patient's radar signal processing engineer and will need to contact that office [...] Nel Cope LPN documented in this encounter [facility] 06-21-2023 Note HNO ID: [id number] Author: Leno Briggs MD Service: ? Author [...] life is less. She has been taking [place] 5/325 one twice a day since 04/2018 and up till now was doing well with this. Her daughter, (Mariela) who is her with her today, notes that it no longer controls the pain for as long of a time as it used to. She requires extra strength tylenol in between doses and even then it's not as well as when she takes a [place]. Patient has not been seen for routine since 10/2022. She is now seeing a radar signal processing engineer for her dementia. She was recently found [...] TACO (obstructive sleep apnea) [facility] [employer] [facility] [phone] Pain due to total left knee replacement (HCC) 06/08/2018 Personal history of colonic polyps 01/23/2016 Primary insomnia 03/16/2017 Brain [place] 06/26/2018 recommended Klonopin every other day for [...] CYSTOSCOPY 09/21/12 EGD 10/17/2011 Dr Negrete in [place] ESOPHAGOGASTRODUODENOSCOPY TRANSORAL DIAGNOSTIC 05/16/2014 EGD ESOPHAGOGASTRODUODENOSCOPY TRANSORAL DIAGNOSTIC 09/12/14 EGD ESOPHAGOGASTRODUODENOSCOPY TRANSORAL DIAGNOSTIC 01/06/2017 EGD ESOPHAGOGASTRODUODENOSCOPY TRANSORAL D (more content not included)... [facility] 06-21-2023 History of Present illness Narrative [...] life is less. She has been taking [place] 5/325 one twice a day since 04/2018 and up till now was doing well with this. Her daughter, (Mariela) who is her with her today, notes that it no longer controls the pain for as long of a time as it used to. She requires extra strength tylenol in between doses and even then it's not as well as when she takes a [place]. Patient has not been seen for routine since 10/2022. She is now seeing a radar signal processing engineer for her dementia. She was recently found [...] TACO (obstructive sleep apnea) [facility] [employer] [phone] Pain due to total left knee replacement [...] CYSTOSCOPY 09/21/12 EGD 10/17/2011 Dr Negrete in [place] ESOPHAGOGASTRODUODENOSCOPY TRANSORAL DIAGNOSTIC 05/16/2014 EGD ESOPHAGOGASTRODUODENOSCOPY TRANSORAL DIAGNOSTIC 09/12/14 EGD ESOPHAGOGASTRODUODENOSCOPY TRANSORAL DIAGNOSTIC 01/06/2017 EGD ESOPHAGOGASTRODUODENOSCOPY TRANSORAL DIAGNOSTIC 07/21/2020 EGD REMOVE CATARACT, INSERT LENS, INTRACAPSUL Bilateral 2008 Family History FAMILY HISTORY Problem Relation Age of Onset Hypertension Mother Heart Mother Lipids Mother HIGH CHOLESTEROL Heart Father [place] Ischemic Heart Disease Father STROKE other (diabetic) Father Diabetes Sister Diabetes Sister Breast Cancer Sister Patient Allergies ALLERGIES Allergen Reactions Bactrim [Sulfametho* Itching Codeine Mental Status Change Garlic Oil Other: See Comments Lexapro [Escitalopr* Other: See Comments rapid heart rate Oxybutynin Other: See Comments suggerst by [employer] to stop since it can add to [...] DX E11.22 Insulin No) Walker (ULTRA-LIGHT ROLLATOR) [facility] One Rolator with seat. Dx: J44.9, M54.9, [...] which included preparing to see the patient, pont-ad-kgwa patient care, completing clinical documentation, performing a medically appropriate examination, counseling and educating the patient/family/caregiver and ordering medications, tests, or procedures. Leno Briggs MD documented in this encounter [facility] 06-20-2023 Miscellaneous Notes Left message for pt's daughter that Stephani did review pt's chart and advised that pt does need to see Dr Briggs instead of her tomorrow. Advised pt is scheduled at 2:20 tomorrow 06/[address] Briggs. Daughter had called earlier to reschedule appointment that pt had canceled. Grecia Riley LPN documented in this encounter [facility] 05-30-2023 History of Present illness Narrative COLORECTAL SURGERY OFFICE VISIT PATIENT NAME: Robbin Singh : 1940 TODAY'S DATE: 05/30/2023 Chief Complaint Patient presents with Results [facility] # [phone](Mariela, daughter)Discuss results of colonoscopy done 05/25/23 Patient [...] stated that they are currently in the [facility]. If the patient is a [...] Patient has dementia and is daughter is silviculture professor. She noticed feces inside her vagina. She [...] had multiple polyps. Saw a surgeon through [facility] who recommended colonoscopy, however [...] 05/25/2023 Performed by Samantha Nava MD at [address] ENDOSCOPY Current Outpatient Medications on File [...] Take 600 mg by mouth daily. HYDROcodone-acetaminophen ([place]) 5-325 MG tablet Take 1 tablet by [...] tablet Take 1 tablet by mouth daily. [place]-3 Fatty Acids (FISH OIL OMEGA-3 PO) Take [...] judgement RECTUM: deferred Exam chaperoned by female corporate administrative assistant. IMAGING: Per chart rveiew She underwent a CT scan at [facility] on 12/31/2022 with findings of mid sigmoid [...] was performed when available. Samantha Nava MD [facility] Colorectal Surgery [address] [place] [address], [facility] [address] [address] p [phone] f [phone] documented in this encounter [facility] 05-25-2023 Note Patient: Robbin niño Procedure Summary Date: 05/25/23 Room / Location: [address] ENDO SEC 1 / [facility] Gastroenterology Anesthesia Start: 1042 Anesthesia Stop: 1130 [...] once all PACU criteria has been met. [facility] 05-25-2023 Note Patient: Robbin niño Procedure Summary Date: 05/25/23 Room / Location: [facility] ENDO SEC 1 / ARCH [...] opportunity for questions and acknowledgement of understanding. [facility] 05-25-2023 Note Endoscopy Center- [facility] Patient Name: Robbin Singh Procedure Date: 05/25/2023 10:43 AM Gender: Female Date of : 1940 Age: 82 Admit Type: Outpatient Note Status: Finalized Endoscopist: Samantha Nava MD, [id number] Procedure: Colonoscopy Indications: Follow-up of diverticulitis, Colovaginal [...] immediate complications. Procedure Code(s): --- Professional --- 52812, Colonoscopy, flexible; with removal of tumor(s), polyp(s), or other lesion(s) by snare technique --- Technical --- 43324, Colonoscopy, flexible; with removal of tumor(s), polyp(s), or other lesion(s) by snare technique CPT copyright 2021 [employer]. All rights reserved. The codes documented in this report are preliminary and upon drip box tender review may be revised to meet current compliance requirements. Attending Participation: I personally performed the entire procedure. Samantha Nava MD 05/25/2023 11:25:44 AM This report has been signed electronically. Number of Addenda: 0 Note Initiated On: 05/25/2023 10:43 AM [facility] 05-25-2023 Note Formatting of this n ote might be different from the original. [facility]: Robbin Singh Procedure Date: 05/25/2023 10:43 AM Gender: Female Date of : 1940 Age: 82 Admit Type: Outpatient Note Status: Finalized Endoscopist: Samantha Nava MD, [id number] Procedure: Colonoscopy Indications: Follow-up of diverticulitis, Colovaginal [...] immediate complications. Procedure Code(s): --- Professional --- 46468, Colonoscopy, flexible; with removal of tumor(s), polyp(s), or other lesion(s) by snare technique --- Technical --- 30058, Colonoscopy, flexible; with removal of tumor(s), polyp(s), or other lesion(s) by snare technique CPT copyright 2021 [employer]. All rights reserved. The codes documented in this report are preliminary and upon drip box tender review may be revised to meet current compliance requirements. Attending Participation: I personally performed the entire procedure. Samantha Nava MD 05/25/2023 11:25:44 AM This report has been signed electronically. Number of Addenda: 0 Note Initiated On: 05/25/2023 10:43 AM [facility] 05-25-2023 Note Formatting of this n ote might be different from the original. [facility] Name: Robbin Singh Procedure Date: 05/25/2023 10:43 AM Gender: Female Date of : 1940 Age: 82 Admit Type: Outpatient Note Status: Finalized Endoscopist: Samantha Nava MD, [id number] Procedure: Colonoscopy Indications: Follow-up of diverticulitis, Colovaginal [...] immediate complications. Procedure Code(s): --- Professional --- 30695, Colonoscopy, flexible; with removal of tumor(s), polyp(s), or other lesion(s) by snare technique --- Technical --- 16768, Colonoscopy, flexible; with removal of tumor(s), polyp(s), or other lesion(s) by snare technique CPT copyright 2021 [employer]. All rights reserved. The codes documented in this report are preliminary and upon drip box tender review may be revised to meet current compliance requirements. Attending Participation: I personally performed the entire procedure. Samantha Nava MD 05/25/2023 11:25:44 AM This report has been signed electronically. Number of Addenda: 0 Note Initiated On: 05/25/2023 10:43 AM [facility] 05-25-2023 Miscellaneous Notes [facility] [facility] Patient Name: Robbin Singh Procedure Date: 05/25/2023 10:43 AM Gender: Female Date of : 1940 Age: 82 Admit Type: Outpatient Note Status: Finalized Endoscopist: Samantha Nava MD, [id number] Procedure: Colonoscopy Indications: Follow-up of diverticulitis, Colovaginal [...] immediate complications. Procedure Code(s): --- Professional --- 28485, Colonoscopy, flexible; with removal of tumor(s), polyp(s), or other lesion(s) by snare technique --- Technical --- 83286, Colonoscopy, flexible; with removal of tumor(s), polyp(s), or other lesion(s) by snare technique CPT copyright 2021 [employer]. All rights reserved. The codes documented in this report are preliminary and upon drip box tender review may be revised to meet current compliance requirements. Attending Participation: I personally performed the entire procedure. Samantha Nava MD 05/25/2023 11:25:44 AM This report has been signed electronically. Number of Addenda: 0 Note Initiated On: 05/25/2023 10:43 AM documented in this encounter [facility] 05-25-2023 Note Endoscopy History an d Physical [...] mg by mouth daily. Past Week HYDROcodone-acetaminophen ([place]) 5-325 MG tablet Take 1 tablet by [...] Take 1 tablet by mouth daily. 05/24/2023 [place]-3 Fatty Acids (FISH OIL OMEGA-3 PO) Take [...] none HEMATOLOGIC/LYMPHATIC: N (more content not included)... [facility] 05-25-2023 Note Patient: Robbin niño Procedure Information Date/Time: 05/25/23 0900 Procedure: COLONOSCOPY Location: [address] ENDO SEC 1 / [facility] Gastroenterology [...] found for this or any previous visit. [facility] 05-25-2023 History and physical note Endoscopy History [...] flush 10 mL, 10 mL, IntraVENous, PRN, Samanhta Nava MD sodium chloride 0.9% (NS) flush [...] mg by mouth daily. Past Week HYDROcodone-acetaminophen ([place]) 5-325 MG tablet Take 1 tablet by [...] Take 1 tablet by mouth daily. 05/24/2023 [place]-3 Fatty Acids (FISH OIL OMEGA-3 PO) Take [...] understanding and willingness to proceed with plan. [facility] Phone: 05-25-2023 History and physical note Endoscopy [...] mg by mouth daily. Past Week HYDROcodone-acetaminophen ([place]) 5-325 MG tablet Take 1 tablet by [...] Take 1 tablet by mouth daily. 05/24/2023 [place]-3 Fatty Acids (FISH OIL OMEGA-3 PO) Take [...] proceed with plan. documented in this encounter [facility] 05-17-2023 History of Present illness Narrative Interval [...] Diet Healthy Nutrition for Older Adults - [facility] Injury Prevention/Home Safety [facility] Home Safety Checklist Hearing/Vision Hearing Loss and Older Adults Medications Medication Safety/Dispensers Sleep Getting a Good Night's Sleep ([facility]) Sleep Hygiene Day/Night Reversal Advanced Directives Healthcare Power of Elevator Mechanic Apprentice Living Will Recommend Financial Power of Elevator Mechanic Apprentice Elder Law Elevator Mechanic Apprentice List [facility] Advanced Directives Information Guide Personal Care Personal Care Tips Bathing Tips Dressing Tips Images from the original note were not included. [facility] [address] [facility] [place] [address] Dept: [phone] Dept Loc: [phone] Visit type: [facility] Family Summary Conference Reason for Visit: Memory [...] through following means: Alzheimer's Association support and fireman helper Reviewed advanced care plan. Health Care Power of Elevator Mechanic Apprentice, Financial Power of Elevator Mechanic Apprentice, and Living Will Educational information and handouts [...] 03/2023 for memory loss x 1 year, Keith 19 (MIS 2), CDT 5, PHQ 1, [...] Take 600 mg by mouth daily. HYDROcodone-acetaminophen ([place]) 5-325 MG tablet Take 1 tablet by [...] tablet Take 1 tablet by mouth daily. [place]-3 Fatty Acids (FISH OIL OMEGA-3 PO) Take [...] 05/25/2023 Performed by Samantha Nava MD at [facility] [address] Family History Problem Relation [...] >20.0 05/04/2023 Lab Results Component Value Date [id number] 05/04/2023 No results found for: RPR [...] for the patient documented in this encounter [facility] 05-17-2023 Instructions FILEMON Shepherd CNP - 05/17/2023 [...] and social activity - [facility], [employer] Sneakers. Recommend routines, schedules, and organization. Recommend [...] for virtual visit. documented in this encounter [facility] 04-11-2023 Miscellaneous Notes TC to patients daughter with no answer. Left VM to return call to office to receive update. JUSTINE Gupta Please reach out to patient's daughter. Let her know we refilled Robbin's [place], however, she No Showed to her appt [...] of last office visit in primary care: [facility] 12/23/22 No appointment scheduled Last 2 Encounter Wt Readings: Date: Wt: 03/18/2023 127.5 kg (281 lb) 02/21/2023 129.7 kg (286 lb) Please advise. Thank you. JUSTINE Gupta documented in this encounter [facility] 04-11-2023 History of Present illness Narrative COLORECTAL [...] Patient has dementia and is daughter is silviculture professor. She noticed feces inside her vagina. She [...] Take 600 mg by mouth daily. HYDROcodone-acetaminophen ([place]) 5-325 MG tablet Take 1 tablet by [...] tablet Take 1 tablet by mouth daily. [place]-3 Fatty Acids (FISH OIL OMEGA-3 PO) Take [...] judgement RECTUM: deferred Exam chaperoned by female corporate administrative assistant. IMAGING: Per chart rveiew She underwent a CT scan at [facility] on 12/31/2022 with findings of mid sigmoid [...] was performed when available. Samantha Nava MD [facility] Colorectal Surgery [address], [address] [place] [id number] p [phone] f [phone] documented in this encounter [facility] 04-05-2023 Note Mrs. Singh was see n [...] Return in 4-6 weeks for summary visit. [facility] 04-05-2023 History of Present illness Narrative Images from the original note were not included. [facility] [address] [place] [address] Dept: [phone] Dept Loc: [phone] Visit type: [facility] Initial Assessment Visit Date: 04/11/2023 Reason for [...] 82 y.o. female who presents to the [facility] for a comprehensive geriatric assessment. The patient is new to me. Referred for dementia, having nightmares, on Donepezil at , previously diagnosed with dementia. Family helping with pt's care. PMH: anxiety, depression, OA multiple joints, leg edema, CHF, CKD 3, COPD, DDD cervical and lumbar, DM2, HTN, [place], frequent falls, interstitial cystitis, urinary incontinence, neuropathy, [...] Take 600 mg by mouth daily. HYDROcodone-acetaminophen ([place]) 5-325 MG tablet Take 1 tablet by [...] tablet Take 1 tablet by mouth daily. [place]-3 Fatty Acids (FISH OIL OMEGA-3 PO) Take [...] Normocephalic. Comments: No glasses. No hearing aids. [place] at times. Right Ear: External ear normal. [...] found for: FOLATE No results found for: [id number] No results found for: RPR Testing: The following tests were performed at today's visit and scanned in to the chart: MoCA score: 19, MIS score: 2 Clock drawing score: 5 PHQ-9 score: 1 SIN score: not done I independently reviewed the [place] Cognitive Assessment from 04/11/2023. 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 Activities: nephew and great granddaughter come to visit once per week, watches tv Exercise: none Finances: close to $2000 in income Healthcare Power of Elevator Mechanic Apprentice: No Financial Power of Elevator Mechanic Apprentice: No Living Will: No Guardian: No Code [...] Diet Healthy Nutrition for Older Adults - [facility] Injury Prevention/Home Safety [facility] Home Safety Checklist Hearing/Vision Hearing Loss and Older Adults Medications Medication Safety/Dispensers Sleep Getting a Good Night's Sleep ([facility]) Sleep Hygiene Day/Night Reversal Advanced Directives Healthcare Power of Elevator Mechanic Apprentice Living Will Recommend Financial Power of Elevator Mechanic Apprentice Elder Law Elevator Mechanic Apprentice List [facility] Advanced Directives Information Guide Personal Care Personal Care Tips Bathing Tips Dressing Tips documented in this encounter [facility] 04-05-2023 Instructions Shantal Serrano APRN - CARINE [...] for summary visit. documented in this encounter [facility] 04-01-2023 Note HNO ID: [id number] Author: Leno Briggs MD Service: ? Author Type: Physician Type: Progress Notes Filed: 04/04/2023 1:02 PM Note Text: Appt cancelled since patient actually needed seen in office for a routine. [facility] 04-01-2023 History of Present illness Narrative Appt cancelled since patient actually needed seen in office for a routine. documented in this encounter [facility] 03-16-2023 Miscellaneous Notes Patient phones requesting refills as follows: Requested Prescriptions Pending Prescriptions Disp Refills metFORMIN ER (GLUCOPHAGE XR) 500 mg 24 hr tablet 180 tablet 1 Sig: Take 2 tablets by mouth daily with dinner. TAVO 12/23/2022 NOV 04/01/2023 Please review and advise. Atiya Deluna LPN documented in this encounter [facility] 03-11-2023 Miscellaneous Notes Faxed. Antionette Coleman MA Order printed and signed and ready to fax Ok to refer? Cristina Garcia Ma documented in this encounter [facility] 03-09-2023 Miscellaneous Notes The following approved medication [...] Shelby Rogel LPN documented in this encounter [facility] 03-09-2023 Miscellaneous Notes The following approved medication [...] would help her sleep. Contact patient at [phone]. Joanne Rogel Pss documented in this encounter [facility] 02-21-2023 Note HNO ID: [id number] Author: Radha Baldwin APRN.CURRICULUM COUNSELOR Service: ? Author Type: Nurse Practitioner Type: Progress Notes Filed: 02/22/2023 12:47 PM Note Text: [facility] ([facility]) [address] [facility] [id number] OUTPATIENT VISIT February 21, 2023 2:00 PM [...] TACO (obstructive sleep apnea) [facility] f[facility] [phone] Pain due to total left knee replacement [...] CYSTOSCOPY 09/21/12 EGD 10/17/2011 Dr Negrete in [place] ESOPHAGOGASTRODUODENOSCOPY TRANSORAL DIAGNOS (more content not included)... [facility] 02-18-2023 Instructions Lauren Gruber RN - [...] If you do not have a responsible school boat driver (family member or friend) with you [...] exam. 2 10/2019 documented in this encounter [facility] 02-14-2023 Miscellaneous Notes Patient has been identified [...] to [facility] documented in this encounter [facility] 02-14-2023 Miscellaneous Notes The following approved medication [...] Last refill; 01/2023 documented in this encounter [facility] 02-11-2023 Miscellaneous Notes This patient gave consent [...] seven days of my reply. See the [employer] message reply for my assessment and plan. I spent a total of 5 minutes reviewing the patient's prior medical records and current request for medical advice, prescribing medications or ordering tests (if applicable), replying to the patient, and documenting the encounter. Eufemia Chapa APRN.CARINE documented in this encounter [facility] 02-10-2023 Miscellaneous Notes TAVO 12/23/22 with RR Appointment scheduled 03/11/23 with JAX Please advise. Thank you. MODESTO Gupta documented in this encounter [facility] 02-09-2023 History and physical note COLORECTAL SURGERY NEW VIRTUAL VISIT I have communicated my name and active licensure. The patient's identity and physical location were verified at the time of this visit. Either the patient or their legal account maintenance representative has been informed of the risks [...] Patient has dementia and is daughter is silviculture professor. She noticed feces inside her vagina. She [...] thinks this is mostly incontinence of urine. Safemaker History PAST MEDICAL HISTORY Diagnosis Date Anxiety [...] TACO (obstructive sleep apnea) [facility] fx [phone] Pain due to total left knee replacement [...] CYSTOSCOPY 09/21/12 EGD 10/17/2011 Dr Negrete in [place] ESOPHAGOGASTRODUODENOSCOPY TRANSORAL DIAGNOSTIC 05/16/2014 EGD ESOPHAGOGASTRODUODENOSCOPY TRANSORAL [...] No) 1 Kit 0 Walker (ULTRA-LIGHT ROLLATOR) [facility] One Rolator with seat. Dx: J44.9, M54.9, [...] No history of dysuria, frequency or incontinence REVENUE LIAISON: stool per vagina per HPI MUSCULOSKELETAL: Negative [...] which included preparing to see the patient, [id number] patient care, completing clinical documentation, obtaining and/or reviewing separately obtained history, performing a medically appropriate examination, counseling and educating the patient/family/caregiver, ordering medications, tests, or procedures, communicating with other HCPs (not separately reported), independently interpreting results (not separately reported), communicating results to the patient/family/caregiver, and care coordination (not separately reported). documented in this encounter [facility] 02-03-2023 Miscellaneous Notes Patient phones requesting refills as follows: Patient comment: Is it possible to have this sent to [facility] in [place], for maybe a2-week supply, and the normal 90-day refill to [facility]? I thought this was on auto-delivery through them but they haven't sent it Requested Prescriptions Pending Prescriptions Disp Refills losartan (COZAAR) 50 mg tablet 90 tablet 1 Sig: Take 1 tablet by mouth once daily. TAVO-12/23/22 Labs-11/04/22 NOV-03/11/23 Med filled 06/14/22 Please review and advise. Brianne Chiang LPN documented in this encounter [facility] 01-31-2023 Miscellaneous Notes [facility] Rx sent by PCP on 01/30 Charity Das APRN.CURRICULUM COUNSELOR documented in this encounter [facility] 01-28-2023 Miscellaneous Notes This patient gave consent [...] seven days of my reply. See the [employer] message reply for my assessment and plan. I spent a total of 5 minutes reviewing the patient's prior medical records and current request for medical advice, prescribing medications or ordering tests (if applicable), replying to the patient, and documenting the encounter. Eufemia Chapa APRN.CARINE documented in this encounter [facility] 01-26-2023 Miscellaneous Notes Please see TEL ENC for today regarding RN's call to pt to schedule nurse visit for urine specimen collection. Jason Mcfadden RN Discussed with Eufemia Chapa DNP. Recommend nurse visit for straight cath urine specimen. Patient has colovesical fistula and clean catch is not recommended. Eloisa Ferrara APRN.CNP documented in this encounter [facility] 01-26-2023 Miscellaneous Notes RN's call to pt to schedule office visit for urine specimen collection [facility] RN left message requesting return call from pt to schedule nurse visit. Call terminated. documented in this encounter [facility] 01-25-2023 Note HNO ID: [id number] Author: Leesa Ramirez MD Service: ? Author Type: Physician Type: Progress Notes Filed: 01/25/2023 3:26 PM Note Text: Robbin Torres Allan 1940 REFERRING PHYSICIAN: Eufemia Chapa APRN.CNP CHIEF COMPLAINT: Consult (Colovesical fistula) HPI: The patient is a 82 year old female presents with colovesical fistula. She has noted symptoms for about two months. She underwent a CT scan at [facility] on 12/31/2022 with findings of mid sigmoid diverticulitis with probable fistula to the adjacent urinary bladder. Associated colonic wall thickening and adjacent stranding noted. There is under distension of the urinary bladder with significant wall edema and adjacent inflammatory change. Patient had been scheduled for an appointment at [facility] in [place], but the family deferred this and preferred to be seen in [place]. The patient had also been scheduled for an appointment at [facility], but deferred this. The patient has [...] TACO (obstructive sleep apnea) [facility] fx [phone] Pain due to total left knee replacement [...] CYSTOSCOPY 09/21/12 EGD 10/17/2011 Dr Negrete in [place] ESOPHAGOGASTRODUODENOSCOPY TRANSORAL DIAGNOSTIC 05/16/2014 EGD ESOPHAGOGASTRODUODENOSCOPY TRANSORAL [...] mononitrate ER ( (more content not included)... [facility] 01-25-2023 History of Present illness Narrative Robbin Singh 1940 REFERRING PHYSICIAN: Eufemia Chapa APRN.CURRICULUM COUNSELOR CHIEF COMPLAINT: Consult (Colovesical fistula) HPI: The patient is a 82 year old female presents with colovesical fistula. She has noted symptoms for about two months. She underwent a CT scan at [facility] on 12/31/2022 with findings of mid sigmoid diverticulitis with probable fistula to the adjacent urinary bladder. Associated colonic wall thickening and adjacent stranding noted. There is under distension of the urinary bladder with significant wall edema and adjacent inflammatory change. Patient had been scheduled for an appointment at [facility] in [place], but the family deferred this and preferred to be seen in [place]. The patient had also been scheduled for an appointment at [facility], but deferred this. The patient has [...] TACO (obstructive sleep apnea) [facility] fx [phone] Pain due to total left knee replacement [...] CYSTOSCOPY 09/21/12 EGD 10/17/2011 Dr Negrete in [place] ESOPHAGOGASTRODUODENOSCOPY TRANSORAL DIAGNOSTIC 05/16/2014 EGD ESOPHAGOGASTRODUODENOSCOPY TRANSORAL [...] DX E11.22 Insulin No) Walker (ULTRA-LIGHT ROLLATOR) [facility] One Rolator with seat. Dx: J44.9, M54.9, [...] Mother Lipids Mother HIGH CHOLESTEROL Heart Father [place] Ischemic Heart Disease Father STROKE other (diabetic) Father Diabetes Sister Diabetes Sister Breast Cancer Sister The review of systems data was entered by the nurse and reviewed by ut Nursing Notes: Beata Doshi RN 01/25/2023 1:26 [...] Leesa Ramirez MD documented in this encounter [facility] 01-25-2023 Nurse Note REVIEW OF SYSTEMS: General: [...] Beata Doshi RN documented in this encounter [facility] 01-19-2023 Miscellaneous Notes Patient has been identified [...] Shelby Rogel LPN documented in this encounter [facility] 01-18-2023 Miscellaneous Notes Unfortunately, she has to see colorectal. I know she was given a name for a colorectal surgeon in [place] so she can call that office to see if Robbin can be seen sooner there. If she has more questions, I can call her. Eufemia Chapa APRN.CURRICULUM COUNSELOR Daughter Mariela calling to see if waiting till 03/09/23 to see Colorectal at is okay. Pt having increased pain in the vagina area due to skin is raw and now getting blood when she wipes. When urinating getting increased pain. Pt is cleaning the area after going but the Aquaphor is not working. Please advise daughter. Shelby Rogel LPN documented in this encounter [facility] 01-14-2023 Miscellaneous Notes Patient has been identified [...] 03/2023 Last refill: documented in this encounter [facility] 01-06-2023 Miscellaneous Notes Et patient or daughter know pain med refill sent [facility] Briggs here is her Mychart note. Patient Comment: This was supposed to be back-ordered from [facility] because they were out of stock, so she got them from [employer], but it's time for another refill so [...] Shelby Rogel LPN documented in this encounter [facility] 01-06-2023 Note HNO ID: [id number] Author: Eufemia Chapa APRN.CURRICULUM COUNSELOR Service: ? Author Type: Nurse Practitioner Type: [...] was treated. Recently diagnosed with diverticulitis at [facility] ER visit 12/31/22. 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 History: REVENUE LIAISON HISTORY: Last Pap: Date:2012; Last Mammogram: Her [...] CYSTOSCOPY 09/21/12 EGD 10/17/2011 Dr Negrete in [place] ESOPHAGOGASTRODUODENOSCOPY TRANSORAL DIAGNOSTIC 05/16/2014 EGD ESOPHAGOGASTRODUODENOSCOPY TRANSORAL DIAGNOSTIC 09/12/14 EGD ESOPHAGOGASTRODUODENOSCOPY TRANSORAL DIAGNOSTIC 01/06/2017 EGD ESOPHAGOGASTRODUODENOSCOPY TRANSORAL DIAGNOSTIC 07/21/2020 EGD REMOVE CATARACT, INSERT LENS, INTRACAPSUL Bilateral 2008 PAST MEDICAL HISTORY Diagnosis Date Anxiety and depression 01/01/2019 Arthritis of shoulder region, degenerative right Corticosteroid 09/20/14, left corticosteroid 10/07/14 Arthritis, multiple joint involvement 01/16/2018 Advised tylenol Arthritis (more content not included)... [facility] 01-06-2023 Instructions Eufemia Chapa APRN.CURRICULUM COUNSELOR - 01/06/2023 2:02 PM EST Consult colorectal [...] and protect the skin. Avoid using a wheelchair van driver to dry the vulvar area. Use cool gel packs on the vulva. documented in this encounter [facility] 01-06-2023 History of Present illness Narrative Female [...] was treated. Recently diagnosed with diverticulitis at [facility] ER visit 12/31/22. 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 History: REVENUE LIAISON HISTORY: Last Pap: Date:2012; Last Mammogram: Her [...] CYSTOSCOPY 09/21/12 EGD 10/17/2011 Dr Negrete in [place] ESOPHAGOGASTRODUODENOSCOPY TRANSORAL DIAGNOSTIC 05/16/2014 EGD ESOPHAGOGASTRODUODENOSCOPY TRANSORAL [...] TACO (obstructive sleep apnea) [facility] [phone] Pain due to total left knee replacement (HCC) 06/08/2018 Personal history of colonic polyps 01/23/2016 Primary insomnia 03/16/2017 Brain [place] 06/26/2018 recommended Klonopin every other day for [...] Mother Lipids Mother HIGH CHOLESTEROL Heart Father [place] Ischemic Heart Disease Father STROKE other (diabetic) [...] DX E11.22 Insulin No) Walker (ULTRA-LIGHT ROLLATOR) [facility] One Rolator with seat. Dx: J44.9, M54.9, [...] rate Oxybutynin Other: See Comments suggerst by [employer] to stop since it can add to [...] and ROS obtained by others. Eufemia Chapa APRN.CURRICULUM COUNSELOR Glass Products Inspector offered: Patient accepts, visit chaperoned by Ovidio [...] Colovesical fistula - Per discharge instructions from [facility], a consult has been placed with [...] Eufemia Chapa APRN.CARINE documented in this encounter [facility] 01-01-2023 Note . MICRO - Microbiology PROCEDURE: [...] Locations *1: This test was performed at: [facility], [address] [place] [address], [address] , [facility] ([place]) 12-29-2022 Miscellaneous Notes Patient's daughter notified. Sun Thompson RN Patient is positive for yeast. She has dementia and sister is silviculture professor. Please notify sister of positive results. Diflucan 150 mg PO x 2 doses called in to local pharmacy. She will need to take one dose this week and another dose in 1 week. Madalyn Degroot APRN.CNM documented in this encounter [facility] 12-28-2022 Note HNO ID: [id number] Author: Madalyn Degroot APRN.CNM Service: ? Author Type: Lace Cutter Type: Progress Notes Filed: 12/28/2022 11:13 AM Note Text: Robbin Singh is a 82 year old female who presents with daughter and sister for problem visit of vaginal burning. Patient referred by PCP due to having vaginal pain and burning sensation. She thought she had a urinary tract infection but urine culture returned negative. Patient has dementia and is daughter is silviculture professor. Last week patient became concerned because she noticed feces inside her vagina. She notices stool on toilet paper after wiping. Patient's sister concerned she may have anal fissures/fistula. She has a history of mixed incontinence and wears Depends. Denies any vaginal discharge, odor or itching. Safemaker History LMP: Postmenopausal Age at Menarche: Age at First : Age at Menopause: Safemaker History Comments: Sexual Activity: Never; No partner [...] TACO (obstructive sleep apnea) [facility] [employer] fx [phone] Pain due to total left knee replacement ([facility]) 06/08/2018 Personal history of colonic polyps 01/23/2016 Primary insomnia 03/16/2017 [place] 06/26/2018 recommended Klonopin every other day for [...] CYSTOSCOPY 09/21/12 EGD 10/17/2011 Dr Negrete in [place] ESOPHAGOGASTRODUODENOSCOPY TRANSORAL DIAGNOSTIC 05/16/2014 EGD ESOPHAGOGASTRODUODENOSCOPY TRANSORAL DIAGNOSTIC 09/12/14 EGD ESOPHAGOGASTRODUODENOSCOPY TRANSORAL DIAGNOSTIC 01/06/2017 EGD ESOPHAGOGASTRODUODENOSCOPY TRANSORAL DIAGNOSTIC 07/21/2020 EGD REMOVE CATARACT, INSERT LENS, INTRACAPSUL Bilateral 2008 FAMILY HISTORY Problem Relation Age of Onset Hypertension Mother Heart Mother Lipids Mother HIGH CHOLESTEROL Heart Father [place] Ischemic Heart Disease Father STROKE other (diabetic) Father Diabetes Sister Diabetes Sister Breast Cancer Sister Social History Tobacco Use Smoking status: Former Packs/day: 3.0 (more content not included)... [facility] 12-27-2022 Miscellaneous Notes Urine culture was negative. See [facility] [facility] message. documented in this encounter [facility] 12-24-2022 Miscellaneous Notes Spoke to pt's daughter [...] the culture results. documented in this encounter [facility] 12-23-2022 Note HNO ID: [id number] Author: Stephani Crooks PA-C Service: ? Author Type: Physician Sprayer Automatic Spray Machine Type: Progress Notes Filed: 12/23/2022 2:24 PM [...] TACO (obstructive sleep apnea) [facility] [employer] fx [phone] Pain due to total left knee replacement [...] CYSTOSCOPY 09/21/12 EGD 10/17/2011 Dr Negrete in [place] ESOPHAGOGASTRODUODENOSCOPY TRANSORAL DIAGNOSTIC 05/16/2014 EGD ESOPHAGOGASTRODUODENOSCOPY TRANSORAL DIAGNOSTIC 09/12/14 EGD ESOPHAGOGASTRODUODENOSCOPY TRANSORAL DIAGNOSTIC 01/06/2017 EGD ESOPHAGOGASTRODUODENOSCOPY TRANSORAL DIAGNOSTIC 07/21/2020 EGD REMOVE CATARACT, INSERT LENS, INTRACAPSUL Bilateral 2008 Family History FAMILY HISTORY Pr (more content not included)... [facility] 12-23-2022 History of Present illness Narrative [...] TACO (obstructive sleep apnea) [facility] [employer] fx [phone] Pain due to total left knee replacement [...] CYSTOSCOPY 09/21/12 EGD 10/17/2011 Dr Negrete in [place] ESOPHAGOGASTRODUODENOSCOPY TRANSORAL DIAGNOSTIC 05/16/2014 EGD ESOPHAGOGASTRODUODENOSCOPY TRANSORAL DIAGNOSTIC 09/12/14 EGD ESOPHAGOGASTRODUODENOSCOPY TRANSORAL DIAGNOSTIC 01/06/2017 EGD ESOPHAGOGASTRODUODENOSCOPY TRANSORAL DIAGNOSTIC 07/21/2020 EGD REMOVE CATARACT, INSERT LENS, INTRACAPSUL Bilateral 2008 Family History FAMILY HISTORY Problem Relation Age of Onset Hypertension Mother Heart Mother Lipids Mother HIGH CHOLESTEROL Heart Father [place] Ischemic Heart Disease Father STROKE other (diabetic) Father Diabetes Sister Diabetes Sister Breast Cancer Sister Patient Allergies ALLERGIES Allergen Reactions Bactrim [Sulfametho* Itching Codeine Mental Status Change Garlic Oil Other: See Comments Lexapro [Escitalopr* Other: See Comments rapid heart rate Oxybutynin Other: See Comments suggerst by ClassifEye to stop since it can add to [...] of breath (With Spacer). Walker (ULTRA-LIGHT ROLLATOR) [facility] One Rolator with seat. Dx: J44.9, M54.9, [...] patient's family that they can go to [facility] and request virtual visit. - CONSULT TO GERIATRICS 2. Dysuria - ICD9: 788.1, ICD10: R30.0 acute Patient to get UA and Culture completed. - URINALYSIS, WITH MICROSCOPIC - URINE CULTURE - CONSULT TO GERIATRICS 3. Dementia with mood disturbance, unspecified dementia severity, unspecified dementia type - ICD9: 294.21, ICD10: F03.93 See #1. Stephani Crooks PA-C documented in this encounter [facility] 12-16-2022 Miscellaneous Notes Daughter Mariela notified of [...] Shelby Rogel LPN documented in this encounter [facility] 12-13-2022 Miscellaneous Notes Last office visit: 11/04/22 F/u scheduled: 03/11/23 Cristina Garcia Ma documented in this encounter [facility] 12-07-2022 Miscellaneous Notes The following approved medication [...] daily. TAVO: 11/04/22 NOV: 03/11/23 Last Refill: [place]: 11/09/22 #60 0 refills Actos: 11/19/22 #90 5 refills.Not due for refill yet Huong Payan LPN documented in this encounter [facility] 12-02-2022 Miscellaneous Notes The following approved medication requests have been transmitted electronically. Requested Prescriptions Signed Prescriptions Disp Refills furosemide (LASIX) 20 mg tablet 180 tablet 1 Sig: Take 1 tablet by mouth twice daily. Authorizing Provider: STEPHANI CROOKS PA-C Patient phones requesting refills as follows: Pt needs the [facility] RX sent in. See below Requested Prescriptions Pending Prescriptions Disp Refills furosemide (LASIX) 20 mg tablet 180 tablet 1 Sig: Take 1 tablet by mouth twice daily. Please review and advise. Brianne Chiang LPN I'm not sure what they need? Does she need a new short term prescription to be sent or the mail order refilled. Stephani Crooks PA-C Please see [facility] [facility] message documented in this encounter [facility] 11-19-2022 Miscellaneous Notes Patient has been identified [...] Last refill: 08/2022 documented in this encounter [facility] 11-19-2022 Miscellaneous Notes Patient has been identified [...] go [facility] documented in this encounter [facility] 11-16-2022 Miscellaneous Notes Patient has been identified by name and date of : Yes, Patient phones for refill(s): Requested Prescriptions Pending Prescriptions Disp Refills donepezil (ARICEPT) 10 mg tablet 30 tablet 5 Sig: Take 1 tablet by mouth daily at bedtime. Date of last office visit in primary care: 11/04/22 Please advise. Thank you. Nel Cope LPN documented in this encounter [facility] documented in this encounter [facility]01-03-2023 Miscellaneous Notes* Telephone Encounter - Stephani Crooks [...] you. Nel Cope LPN documented in this encounterUniversity Hospitals [facility]01-03-2023 Miscellaneous Notes* Telephone Encounter - Nel Cope [...] you. Nel Cope LPN documented in this encounterUniversity Hospitals [facility]12-30-2022 Miscellaneous Notes* Telephone Encounter - Michelle Bucio [...] dehydration. Stephani Crooks PA-C documented in this encounterUniversity Hospitals [facility]12-29-2022 NoteHNO ID: [id number] Author: Stephani Crooks PA-C Service: ? Author Type: Physician Sprayer Automatic Spray Machine Type: Progress Notes Filed: 11/04/2022 1:40 PM [...] TACO (obstructive sleep apnea) [facility] [employer] [facility] [phone] Pain due to total left knee replacement [...] CYSTOSCOPY 09/21/12 EGD 10/17/2011 Dr Negrete in [place] ESOPHAGOGASTRODUODENOSCOPY TRANSORAL DIAGNOSTIC 05/16/2014 EGD ESOPHAGOGASTRODUODENOSCOPY TRANSORAL DIAGNOSTIC 09/12/14 EGD ESOPHAGOGASTRODUODENOSCOPY TRANSORAL DIAGNOSTIC 01/06/2017 EGD ESOPHAGOGASTRODUODENOSCOPY TRANSORAL DIAGNOSTIC 07/21/2020 EGD REMOVE CATARACT, INSERT LENS, INTRACAPSUL Bilateral 2008 Family History FAMILY HISTORY Problem Relation Age of Onset Hypertension Mother Heart Mother Lipids Mother HIGH CHOL (more content not included)...[facility]12-29-2022 Instructions* Patient Instructions* Stephani Crooks PA-C - 11/04/2022 1:21 PM EST Stop prozac- restart zoloft. Decrease metformin to 1000mg at night. See if this helps with the nausea. Start actos for help on Diabetes management since we are decreasing metformin. Labs today. documented in this encounterUniversity Hospitals [facility]12-[facility]-2022 History of Present illness Narrative* Stephani Crooks [...] TACO (obstructive sleep apnea) [facility] [employer] [facility] [phone] Pain due to total left knee replacement (HCC) 06/08/2018 Personal history of colonic polyps 01/23/2016 Primary insomnia 03/16/2017 [facility] 06/26/2018 recommended Klonopin every other day for [...] CYSTOSCOPY 09/21/12 EGD 10/17/2011 Dr Negrete in [place] ESOPHAGOGASTRODUODENOSCOPY TRANSORAL DIAGNOSTIC 05/16/2014 EGD ESOPHAGOGASTRODUODENOSCOPY TRANSORAL DIAGNOSTIC 09/12/14 EGD ESOPHAGOGASTRODUODENOSCOPY TRANSORAL DIAGNOSTIC 01/06/2017 EGD ESOPHAGOGASTRODUODENOSCOPY TRANSORAL DIAGNOSTIC 07/21/2020 EGD REMOVE CATARACT, INSERT LENS, INTRACAPSUL Bilateral 2008 Family History FAMILY HISTORY Problem Relation Age of Onset Hypertension Mother Heart Mother Lipids Mother HIGH CHOLESTEROL Heart Father [place] Ischemic Heart Disease Father STROKE other (diabetic) Father Diabetes Sister Diabetes Sister Breast Cancer Sister Patient Allergies ALLERGIES Allergen Reactions Bactrim [Sulfametho* Itching Codeine Mental Status Change Garlic Oil Other: See Comments Lexapro [Escitalopr* Other: See Comments rapid heart rate Oxybutynin Other: See Comments suggerst by ClassifEye to stop since it can add to [...] intervention Stephani Crooks PA-C documented in this encounterUniversity [facility]12-[facility]-2022 Miscellaneous Notes* Telephone Encounter - Julia Bradley RN - 10/14/2022 10:55 AM EST Opened In Error documented in this encounterUniversity Hospitals [facility]11-09-2022 Miscellaneous Notes* Telephone Encounter - Antionette Coleman MA - 09/15/2022 8:15 AM EST Medication attached to another phone encounter. Antionette Coleman MA documented in this encounterUniversity Hospitals Geaug[facility]11-09-2022 Miscellaneous Notes* Telephone Encounter - Antionette Coleman [...] 09/2022 Last refill: 06/2022 documented in this encounterUniversity Hospitals [facility]11-01-2022 Miscellaneous Notes* Telephone Encounter - Leno Briggs [...] you. Nel Cope LPN documented in this encounterUniversity Hospitals [facility]10-21-2022 Miscellaneous Notes* Telephone Encounter - Leno Briggs [...] advise. Brianne Chiang LPN documented in this encounterUniversity Hospitals [facility]09-28-2022 Miscellaneous Notes* Telephone Encounter - Stephani Crooks [...] 09/2022 Last refill: 07/04/2022 documented in this encounterUniversity Hospitals [facility]09-20-2022 Miscellaneous Notes* Telephone Encounter - Antionette Coleman [...] help with ADL's ie. Bathing, grooming, mobility. [facility] [employer] ph. [phone] also will assess if patient are eligible for Medicaid as that is a requirement for Passport program. Sw looked back through notes and does not see any mention in regards to previous Passport referral or notes in regards to patient already having Passport services. Passport usually helps with home safety modifications, motor home electrical foreman, home delivered meals, medical alert button costs if eligible. If patient would be open to Sw referring, [facility] would do the in home assessment to seeif eligible. * Telephone Encounter - Antionette Coleman MA - 07/16/2022 10:00 AM EDT How do we find out if that patient is eligible for Passport? Antionette Coleman MA * Telephone Encounter - ZULEMA Salazar - 07/15/2022 1:54 PM EDT Sw has had patient's purchase motorized scooters from [employer] in [place]. [facility] ph.[phone] or fax#[phone]. I have not found insurance to be covering the cost of scooters unless they may be eligible for [facility] on Aging program. * Telephone Encounter - [...] anyone. I told patient I would ask Fundraising Director if she had any other ideas on places for motorized scooters for insurance. If not we have to wait on [facility]. Antionette Coleman MA * Telephone Encounter - Antionette Coleman MA - 07/07/2022 11:20 AM EDT Tried calling [employer] and they do not have motorized scooters. Antionette Coleman MA * Telephone Encounter - Grecia Riley LPN - 07/06/2022 10:06 AM EDT Received fax from [facility] that wheelchair that was ordered for pt is on backorder and they are unable to obtain. Advised pt of same and she will check and see if there is anywhere else her insurance will approve of that office can fax order to to see if they can get wheelchair for pt. She will callback with information. Grecia Riley LPN documented in this encounterUniversity Hospitals Ge[facility] Center09-19-2022 Miscellaneous Notes* Telephone Encounter - Joy Hicks Ma - 07/26/2022 10:51 AM EDT Please see pt daughter message. Joy Hicks Ma documented in this encounterUniversity Hospitals Geaug[facility] Center08-30-2022 Miscellaneous Notes* Telephone Encounter - Grecia Riley LPN - 07/06/2022 11:18 AM EDT Left message of same on daughter, Shae identified vm. Grecia Riley LPN * Telephone Encounter - Leno Briggs MD - 07/06/2022 11:06 AM EDT Let daughter know electrolyte panel was ok. documented in this encounterUniversity Hospitals Geauga Medical Center08-30-2022 Miscellaneous Notes* Telephone Encounter - Grecia Riley [...] OTC. Stephani Crooks PA-C documented in this encounterUniversity Hospitals Geauga Medical Center08-29-2022 History of Present illness Narrative* Leno Briggs MD - 07/05/2022 3:20 PM EDT Chief Complaint Patient presents with: Follow Up: [facility] Robbin Singh is a 81 year old female who presents here today for 4 week follow up on Depression/HTN/Edema and Medication. Patient indicated that she contacted insurance and they will approve a scooter for patient if recommended by her PCP. They will pay for 80-90% and can be faxed to [facility] [phone]. Patient here with her daughter today. Patient has recently been released for [facility] services due to meeting goals. At last [...] in the next few months. Taking the [place] twice a day does help her knee [...] TACO (obstructive sleep apnea) [facility] fx [phone] Pain due to total left knee replacement [...] CYSTOSCOPY 09/21/12 EGD 10/17/2011 Dr Negrete in [place] ESOPHAGOGASTRODUODENOSCOPY TRANSORAL DIAGNOSTIC 05/16/2014 EGD ESOPHAGOGASTRODUODENOSCOPY TRANSORAL DIAGNOSTIC 09/12/14 EGD ESOPHAGOGASTRODUODENOSCOPY TRANSORAL DIAGNOSTIC 01/06/2017 EGD ESOPHAGOGASTRODUODENOSCOPY TRANSORAL DIAGNOSTIC 07/21/2020 EGD REMOVE CATARACT, INSERT LENS, INTRACAPSUL Bilateral 2008 Family History FAMILY HISTORY Problem Relation Age of Onset Hypertension Mother Heart Mother Lipids Mother HIGH CHOLESTEROL Heart Father [place] Ischemic Heart Disease Father STROKE other (diabetic) Father Diabetes Sister Diabetes Sister Breast Cancer Sister Patient Allergies ALLERGIES Allergen Reactions Bactrim [Sulfametho* Itching Codeine Mental Status Change Garlic Oil Other: See Comments Lexapro [Escitalopr* Other: See Comments rapid heart rate Oxybutynin Other: See Comments suggerst by ClassifEye to stop since it can add to [...] DX E11.22 Insulin No Walker (ULTRA-LIGHT ROLLATOR) [facility] One Rolator with seat. Dx: J44.9, M54.9, [...] ICD9: 338.4, ICD10: G89.4 - stable with [place] 4. Bilateral leg edema - ICD9: 782.3, [...] 09/24/2022 Leno Briggs MD documented in this encounterUniversity Hospitals Geauga [facility] Center08-28-2022 Miscellaneous Notes* Telephone Encounter - Leno Briggs [...] filled. No suspiciousactivity was identified. 07/04/2022 by Lneo Briggs MD * Telephone Encounter - Grecia Riley LPN - 07/03/2022 8:05 AM EDT Please see daughter's message. Grecia Riley LPN documented in this encounterUniversity Hospitals Geauga [facility] Center08-23-2022 Miscellaneous Notes* Telephone Encounter - Leno Briggs [...] refill 06/01/22 Qty: 60 with 0 refills ATVO 05/24/22 NOV 07/05/22 Grecia Riley LPN documented in this encounterUniversity Hospitals Geaug[facility] Center08-22-2022 Miscellaneous Notes* Telephone Encounter - Leno Briggs [...] daily. Leno Briggs MD documented in this encounterUniversity Hospitals Geaug[facility] Center08-08-2022 Miscellaneous Notes* Telephone Encounter - Grecia Riley [...] 05/24/22 F/u scheduled: 07/05/22 Last refilled on: [place] #60 on 06/01/22 Cristina Garcia Ma documented in this encounterUniversity Hospitals Geaug[facility] Center08-08-2022 Miscellaneous Notes* Telephone Encounter - Cristina Garcia Ma - 06/14/2022 12:40 PM EDT Last office visit: 05/24/22 F/u scheduled: 07/05/22 Cristina Garcia Ma documented in this encounterUniversity Hospitals Geauga Medical Center08-07-2022 History of Present illness Narrative* Leno Briggs MD - 06/13/2022 1:15 PM EDT Patient's home health 485 form / care plan for certification period 05/21/2022 to 07/19/2022 reviewedand signed. Relevant medical records were reviewed. Changes were communicated to home health agency documented in this encounterUniversity Hospitals Geauga Medical Center08-03-2022 Miscellaneous Notes* Telephone Encounter - Cristina Garcia Ma - 06/09/2022 12:08 PM EDT Janey notified and voiced understanding. Cristina Garcia Ma * Telephone Encounter - Leno Briggs MD - 06/09/2022 12:02 PM EDT Ok to give verbal ok for delay in care. * Telephone Encounter - Leesa Oro RN - 06/08/2022 4:22 PM EDT Janey- - [facility]- reports she is to see patient bi-weekly, but patient is a little overwhelmed right now, and asked SW to come next week. FAITH asking for verbal approval for delay of care. Please phone Janey with verbal. documented in this encounterUniversity Hospitals Geauga Medical Center07-28-2022 Miscellaneous Notes* Telephone Encounter - Cristina Garcia Ma - 06/03/2022 1:25 PM EDT Addressed in [employer] message. Cristina Garcia Ma * Telephone Encounter - Cristina Garcia Ma - 06/03/2022 1:12 PM EDT Awaiting response from pt on if she has received her 90 day supply from Mail order pharmacy yet? Cristina Garcia Ma documented in this encounterCleveland [phone] Miscellaneous Notes* Telephone Encounter - Antionette Coleman [...] for functional mobility training. documented in this [facility]07-26-2022 Miscellaneous Notes* Telephone Encounter - Octavio [...] patient. Irene Hardin Ma documented in this encounterUniversity Hospitals Geauga Medical Center07-21-2022 Miscellaneous Notes* Telephone Encounter - Grecia Riley LPN - 05/27/2022 11:49 AM EDT Orders faxed as requested to DME [phone]. Grecia Riley LPN * Telephone Encounter - [...] was told the officewould have to call [facility] at [phone]. If it is sent there, then it will be covered.Please advise. * Telephone Encounter - Antionette Coleman MA - 05/26/2022 8:42 PM EDT Spoke with Gail and she indicated that the insurance company wanted her to [facility] and then they would give her [...] letter. Please advise Gail. documented in this encounterUniversity Hospitals Geauga Medical Center07-20-2022 Miscellaneous Notes* Telephone Encounter - Shira Shell Cma - 05/26/2022 9:15 AM EDT Patient daughter notified and verbalized understanding Shira Shell Cma * Telephone Encounter - Stephani Coroks PA-C - 05/26/2022 9:00 AM EDT Repeat urine is better and culture negative. Stephani Crooks PA-C documented in this encounterUniversity Hospitals Geauga Medical Center07-20-2022 Miscellaneous Notes* Telephone Encounter - Leesa Oro RN - 05/26/2022 8:30 AM EDT Left detailed vm on identified vm with provider's message below. * Telephone Encounter - Leno Briggs MD - 05/25/2022 8:50 PM EDT Let [place] know I'm fine giving order for her to see her one more time. If she needs more visits letme know. * Telephone Encounter - Shelby Rogel LPN - 05/25/2022 3:46 PM EDT Shanta, social sciences instructor with [facility] calling for verbal order to see pt one more time to follow up on referrals and community resources. Please advise Shanta. Shelby Rogel LPN documented in this encounterUniversity Hospitals Geauga Medical Center07-18-2022 History of Present illness Narrative* Leno Briggs [...] cancelled them. patient does not remember this. [facility] has been out to see her encluding SW, fci and will also include PHYSICAL THERAPY. There [...] TACO (obstructive sleep apnea) [employer] fx [phone] Pain due to total left knee replacement [...] CYSTOSCOPY 09/21/12 EGD 10/17/2011 Dr Negrete in [place] ESOPHAGOGASTRODUODENOSCOPY TRANSORAL DIAGNOSTIC 05/16/2014 EGD ESOPHAGOGASTRODUODENOSCOPY TRANSORAL DIAGNOSTIC 09/12/14 EGD ESOPHAGOGASTRODUODENOSCOPY TRANSORAL DIAGNOSTIC 01/06/2017 EGD ESOPHAGOGASTRODUODENOSCOPY TRANSORAL DIAGNOSTIC 07/21/2020 EGD REMOVE CATARACT, INSERT LENS, INTRACAPSUL Bilateral 2009 Family History FAMILY HISTORY Problem Relation Age of Onset Hypertension Mother Heart Mother Lipids Mother HIGH CHOLESTEROL Heart Father [place] Ischemic Heart Disease Father STROKE other (diabetic) Father Diabetes Sister Diabetes Sister Breast Cancer Sister Patient Allergies ALLERGIES Allergen Reactions Bactrim [Sulfametho* Itching Codeine Mental Status Change Garlic Oil Other: See Comments Lexapro [Escitalopr* Other: See Comments rapid heart rate Oxybutynin Other: See Comments suggerst by ClassifEye to stop since it can add to [...] up to 30 days. Walker (ULTRA-LIGHT ROLLATOR) [facility] One Rolator with seat. Dx: J44.9, M54.9, [...] time Leno Briggs MD documented in this encounterUniversity Hospitals Geauga Medical Center07-13-2022 Miscellaneous Notes* Telephone Encounter - Leno Briggs [...] of insurance card and med list to [facility] fax#[phone]. Also let daughter know this was done. * Telephone Encounter - ZULEMA Salazar - 05/18/2022 7:24 AM EDT If staff could let patient sister Gail know what comes of response to home health services FAITH would appreciate. Gail ph.[phone]. * Telephone Encounter - ZULEMA Salazar - [...] be then faxed to home health agency. [facility] fax#[phone]. [facility] fax#[phone], [facility] fax [phone] are other home health care options if [facility] does not work. Sw will be out [...] health agencies in the community that provide fci and PT ie. [facility]. Faith noted for Medicare a patient would need to be considered home bound. Home Health agencies also look to provider notes to see about home health being discussed at . Faith also noted [facility] program. [facility] has nursing,social work, therapy and [employer] students that go to patients homes that [...] gave verbal permission to speak with Gail ph.[phone]. Faith will try call again tomorrow 05/14 @10am to discuss transportation resources. documented in this encounterUniversity Hospitals Geauga Medical Center07-12-2022 History of Present illness Narrative* TRI Silva - 05/18/2022 2:05 PM EDT PULM FUNCTION SMARTBLOCK: Provider: Stephani Crooks PA-C Assisting Tech: TRI Silva Spirometry w/BD: 1 documented in this encounterUniversity Hospitals Geauga Medical Center07-07-2022 Miscellaneous Notes* Telephone Encounter - Stephani Crooks PA-C - 05/13/2022 2:39 PM EDT Consult placed. * Telephone Encounter - Grecia Riley LPN - 05/13/2022 2:31 PM EDT Spoke with pt. She is agreeable to consult with SW. Pt would like SW to contact her sister Gail. Spoke with Gail and her contact # is [phone]. Gail states she will relay information to [...] She states Stephani suggested patient speak to Fundraising Director about transportation issues. Patient's sister says she would likeher sister to speak to a social sciences instructor. Sister is not listed as an emergency contact or POA. Marie Kumar RN documented in this encounterUniversity Hospitals [facility]07-05-2022 Miscellaneous Notes* Telephone Encounter - Stephani Crooks [...] to increase of metformin. Uses [facility]. Pt denies any s/s uti. Will come [...] okay. Stephani Crooks PA-C documented in this encounterUniversity Hospitals Geaug[facility]07-05-2022 Miscellaneous Notes* Telephone Encounter - [place] [...] daughter. Grecia Riley LPN documented in this encounterUniversity Hospitals Geaug[facility] Center07-05-2022 Miscellaneous Notes* Telephone Encounter - Grecia Riley LPN - 05/11/2022 8:42 AM EDT Pt requesting refills TAVO 05/07/22 NOV 07/07/22 Grecia Riley LPN documented in this encounterUniversity Hospitals Geaug[facility] Center07-01-2022 Instructions* Patient Instructions* Stephani Crooks PA-C - 05/07/2022 1:46 PM EDT Please reschedule with pulm and cardiology. documented in this encounterUniversity Hospitals Geauga [facility] Center07-01-2022 History of Present illness Narrative* Stephani Crooks [...] TACO (obstructive sleep apnea) DME [employer] fx [phone] Pain due to total left knee replacement [...] CHOLECYSTECTOMY HX 10/30/1997 COLONOSCOP W/ OR W/O [facility] SPEC 11/29/12 Colonoscopy repeat 3 years COLONOSCOP W/ OR W/O [facility] SPEC 01/28/16 Colonoscopy with mac COLONOSCOPY & POLYPECTOMY ~2007 2 polyps COLONOSCOPY & POLYPECTOMY ~2001 7 polyps COLONOSCOPY & POLYPECTOMY 11/30/2011 CYSTOSCOPY 09/21/12 EGD 10/17/2011 Dr Negrete in [place] EGD W/O OR W/BRUSH/WASH 05/16/2014 EGD EGD W/O OR W/BRUSH/WASH 09/12/14 EGD EGD W/O OR W/BRUSH/WASH 01/06/2017 EGD EGD W/O OR W/BRUSH/WASH 07/21/2020 EGD REMOVE CATARACT, INSERT LENS, INTRACAPSUL Bilateral 2008 TOTAL KNEE REPLACEMENT Left 06/08/2012 Family History FAMILY HISTORY Problem Relation Age of Onset Hypertension Mother Heart Mother Lipids Mother HIGH CHOLESTEROL Heart Father [place] Ischemic Heart Disease Father STROKE other (diabetic) Father Diabetes Sister Diabetes Sister Breast Cancer Sister Patient Allergies ALLERGIES Allergen Reactions Bactrim [Sulfametho* Itching Codeine Mental Status Change Garlic Oil Other: See Comments Lexapro [Escitalopr* Other: See Comments rapid heart rate Oxybutynin Other: See Comments suggerst by [employer] to stop since it can add to [...] mouth once daily. ) Walker (ULTRA-LIGHT ROLLATOR) [facility] One Rolator with seat. Dx: J44.9, M54.9, [...] recheck. Stephani Crooks PA-C documented in this encounterUniversity Hospitals Geaug[facility] Center07-01-2022 Evaluation note* Diagnosis Type 2 diabetes mellitus [...] and respiratory abnormality documented in this encounter [facility]06-24-[facility]22 Miscellaneous Notes* Telephone Encounter - Grecia Riley [...] Tue. Grecia Riley LPN documented in this encounterUniversity Hospitals Geaug[facility] Center06-16-2022 Miscellaneous Notes* Telephone Encounter - Antionette Coleman [...] 04/21/2022 2:50 PM EDT Pharmacy verified in [facility] Patient has been identified by [...] advise. Sun Chavez Pss documented in this encounterUniversity Hospitals Geauga Medical Center05-25-2022 Miscellaneous Notes* Telephone Encounter - Leno Briggs [...] LPN * Telephone Encounter - Ana Anderson [facility] [place] [facility] - 03/31/2022 9:45 AM EDT Patient has [...] pharmacy. No need to notify patient. [facility] documented in this encounterUniversity Hospitals Geauga [facility] Center05-25-2022 Miscellaneous Notes* Telephone Encounter - Grecia Riley [...] notify patient. Romelia Dorantes documented in this encounterUniversity Hospitals Geauga Medical Center05-16-2022 Miscellaneous Notes* Telephone Encounter - Shelby Rogel LPN - 03/22/2022 4:56 PM EDT Pt scheduled for apt on 04-07-22. Shelby Rogel LPN * Telephone Encounter - Stephani Crooks PA-C - 03/22/2022 3:15 PM EDT Patient needs to reschedule her visit with dr. Briggs. Stephani Crooks PA-C * Telephone Encounter - Ana Anderson [facility] - 03/22/2022 2:19 PM EDT Patient has [...] [facility] documented in this encounterUniversity Hospitals Ge[facility] Center09-13-2021 NoteHNO ID: [id number] Author: MODESTO Salmeron Service: Radiology Author Type: Clinical Criminal Legal Assistant Type: Progress Notes Filed: 07/20/2021 2:36 PM [...] BY: MODESTO Salmeron July 20, 2021 2:35 [id number] History of Past illness Narrative* Problem Noted [...] of this encounter (statuses as of 06/22/2023) [facility] History of Past illness Narrative* Problem Noted [...] of this encounter (statuses as of 06/22/2023) [facility] History of Past illness Narrative* Problem Noted [...] of this encounter (statuses as of 07/06/2023) [facility] History of Past illness Narrative* Problem Noted [...] of this encounter (statuses as of 08/24/2023) [facility] History of Past illness Narrative* Problem Noted [...] of this encounter (statuses as of 09/02/2023) [facility] History of Past illness Narrative* Problem Noted [...] of this encounter (statuses as of 09/20/2023) [facility] of Past illness Narrative* Problem Noted [...] of this encounter (statuses as of 03/22/2022) [facility] of Past illness Narrative* Problem Noted [...] of this encounter (statuses as of 03/31/2022) [facility] of Past illness Narrative* Problem Noted [...] of this encounter (statuses as of 03/31/2022) [facility] of Past illness Narrative* Problem Noted [...] of this encounter (statuses as of 04/22/2022) [facility] of Past illness Narrative* Problem Noted [...] of this encounter (statuses as of 04/30/2022) [facility] of Past illness Narrative* Problem Noted [...] of this encounter (statuses as of 05/07/2022) [facility] of [facility] illness Narrative* Problem Noted [...] of this encounter (statuses as of 05/11/2022) [facility] of [facility] illness Narrative* Problem Noted [...] of this encounter (statuses as of 05/11/2022) [facility] Narrative* Problem Noted [...] of this encounter (statuses as of 05/12/2022) [facility] Narrative* Problem Noted [...] of this encounter (statuses as of 05/13/2022) [facility] Narrative* Problem Noted [...] of this encounter (statuses as of 05/18/2022) [facility] Narrative* Problem Noted [...] of this encounter (statuses as of 05/19/2022) [facility] Narrative* Problem Noted [...] of this encounter (statuses as of 05/24/2022) [facility] Narrative* Problem Noted [...] of this encounter (statuses as of 05/26/2022) [facility] Narrative* Problem Noted [...] of this encounter (statuses as of 05/27/2022) [facility] Narrative* Problem Noted [...] of this encounter (statuses as of 06/01/2022) [facility] Narrative* Problem Noted [...] of this encounter (statuses as of 06/03/2022) [facility] Narrative* Problem Noted [...] of this encounter (statuses as of 06/03/2022) [facility] Narrative* Problem Noted [...] of this encounter (statuses as of 06/09/2022) [facility] Narrative* Problem Noted [...] of this encounter (statuses as of 06/14/2022) [facility] Narrative* Problem Noted [...] of this encounter (statuses as of 06/14/2022) [facility] Narrative* Problem Noted [...] of this encounter (statuses as of 06/14/2022) [facility] Narrative* Problem Noted [...] of this encounter (statuses as of 06/15/2022) [facility] Narrative* Problem Noted [...] of this encounter (statuses as of 06/29/2022) [facility] Narrative* Problem Noted [...] of this encounter (statuses as of 06/29/2022) [facility] Narrative* Problem Noted [...] of this encounter (statuses as of 07/04/2022) [facility] Narrative* Problem Noted [...] of this encounter (statuses as of 07/05/2022) [facility] Narrative* Problem Noted [...] of this encounter (statuses as of 07/06/2022) [facility] Narrative* Problem Noted [...] of this encounter (statuses as of 07/26/2022) [facility] Narrative* Problem Noted [...] of this encounter (statuses as of 07/27/2022) [facility] Narrative* Problem Noted [...] of this encounter (statuses as of 08/04/2022) [facility] N[facility]* Problem Noted [...] of this encounter (statuses as of 08/27/2022) [facility] Narr[facility]* Problem Noted [...] of this encounter (statuses as of 09/08/2022) [facility] Narr[facility]* Problem Noted [...] of this encounter (statuses as of 09/15/2022) [facility] Narrative* Problem Noted [...] of this encounter (statuses as of 09/15/2022) [facility] Narrative* Problem Noted [...] of this encounter (statuses as of 10/14/2022) [facility] Narrative* Problem Noted [...] of this encounter (statuses as of 11/10/2022) [facility] Narrative* Problem Noted [...] of this encounter (statuses as of 11/10/2022) [facility] N[facility]* Problem Noted [...] of this encounter (statuses as of 11/11/2022) [facility] Narrative* Problem Noted [...] of this encounter (statuses as of 11/11/2022) [facility] N[facility]* Problem Noted [...] of this encounter (statuses as of 11/16/2022) [facility]* Problem Noted [...] of this encounter (statuses as of 11/19/2022) [facility] N[facility]* Problem Noted [...] of this encounter (statuses as of 11/19/2022) [facility]* Problem Noted [...] of this encounter (statuses as of 11/22/2022) [facility]* Problem Noted [...] of this encounter (statuses as of 12/02/2022) [facility]* Problem Noted [...] of this encounter (statuses as of 12/07/2022) [facility]* Problem Noted [...] of this encounter (statuses as of 12/13/2022) [facility]* Problem Noted [...] of this encounter (statuses as of 12/16/2022) [facility]* Problem Noted [...] of this encounter (statuses as of 12/23/2022) [facility]* Problem Noted [...] of this encounter (statuses as of 12/24/2022) [facility]* Problem Noted [...] of this encounter (statuses as of 12/27/2022) [facility]* Problem Noted [...] of this encounter (statuses as of 12/29/2022) [facility] Narr[facility]* Problem Noted [...] of this encounter (statuses as of 01/06/2023) [facility]* Problem Noted [...] of this encounter (statuses as of 01/07/2023) [facility]* Problem Noted [...] of this encounter (statuses as of 01/14/2023) [facility]* Problem Noted [...] of this encounter (statuses as of 01/18/2023) [facility]* Problem Noted [...] of this encounter (statuses as of 01/19/2023) [facility]* Problem Noted [...] of this encounter (statuses as of 01/25/2023) [facility]* Problem Noted [...] of this encounter (statuses as of 01/26/2023) [facility]* Problem Noted [...] of this encounter (statuses as of 01/26/2023) [facility]* Problem Noted [...] of this encounter (statuses as of 01/28/2023) [facility]* Problem Noted [...] of this encounter (statuses as of 01/31/2023) [facility]* Problem Noted [...] of this encounter (statuses as of 02/03/2023) [facility]* Problem Noted [...] of this encounter (statuses as of 02/10/2023) [facility]* Problem Noted [...] of this encounter (statuses as of 02/10/2023) [facility]* Problem Noted [...] of this encounter (statuses as of 02/11/2023) [facility]* Problem Noted [...] of this encounter (statuses as of 02/14/2023) [facility]* Problem Noted [...] of this encounter (statuses as of 02/14/2023) [facility]* Problem Noted [...] of this encounter (statuses as of 02/18/2023) [facility]* Problem Noted [...] of this encounter (statuses as of 03/07/2023) [facility]* Problem Noted [...] of this encounter (statuses as of 03/09/2023) [facility]* Problem Noted [...] of this encounter (statuses as of 03/09/2023) [facility]* Problem Noted [...] of this encounter (statuses as of 03/12/2023) [facility]* Problem Noted [...] of this encounter (statuses as of 03/17/2023) [facility]* Problem Noted [...] of this encounter (statuses as of 04/04/2023) [facility]* Problem Noted [...] of this encounter (statuses as of 04/11/2023) [facility] N[facility]* Problem Noted [...] of this encounter (statuses as of 06/21/2023) [facility] note* Diagnosis Chronic pain of both knees Neuropathic pain Neuralgia, neuritis, and radiculitis, unspecified Chronic pain syndrome Lumbar spondylosis Lumbosacral spondylosis without myelopathy DDD (degenerative disc disease), cervical Degeneration of cervical intervertebral disc Arthritis, multiple joint involvement Unspecified arthropathy, multiple sites [facility] Diagnosis Microscopic hematuria- Primary [facility]* Diagnosis 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)- Primary Type II or unspecified type diabetes mellitus without mention of complication, not stated as uncontrolled Recurrent major depressive disorder, in full remission (HCC) MCI (mild cognitive impairment) Mild cognitive impairment, so stated documented in this encounter [facility] Diagnosis COPD with chronic bronchitis (HCC) Obstructive chronic bronchitis without exacerbation SOB (shortness of breath) Shortness of breath CHURCH (dyspnea on exertion) Other dyspnea and respiratory abnormality documented in this encounter [facility]* Diagnosis Chronic pain syndrome- Primary Recurrent [...] obesity Urge incontinence documented in this encounter [facility]* Diagnosis Type 2 diabetes mellitus with [...] knee Microscopic hematuria documented in this encounter [facility]* Diagnosis Chronic pain of both knees Neuropathic pain Neuralgia, neuritis, and radiculitis, unspecified Chronic pain syndrome Lumbar spondylosis Lumbosacral spondylosis without myelopathy DDD (degenerative disc disease), cervical Degeneration of cervical intervertebral disc Arthritis, multiple joint involvement Unspecified arthropathy, multiple sites documented in this encounter [facility]* Diagnosis Hypertensive heart disease with congestive heart failure, unspecified heart failure type ([facility])- Primary Chronic diastolic heart failure ([facility]) Chronic diastolic heart failure Type 2 diabetes mellitus with diabetic chronic kidney disease, unspecified CKD stage, unspecified whether long term care phlebotomist insulin use ([facility] [...] apnea (adult) (pediatric) documented in this encounter [facility]* Diagnosis Chronic pain of both knees Neuropathic pain Neuralgia, neuritis, and radiculitis, unspecified Chronic pain syndrome Lumbar spondylosis Lumbosacral spondylosis without myelopathy DDD (degenerative disc disease), cervical Degeneration of cervical intervertebral disc Arthritis, multiple joint involvement Unspecified arthropathy, multiple sites [facility] Diagnosis Chronic pain of both knees Neuropathic pain Neuralgia, neuritis, and radiculitis, unspecified Chronic pain syndrome Lumbar spondylosis Lumbosacral spondylosis without myelopathy DDD (degenerative disc disease), cervical Degeneration of cervical intervertebral disc Arthritis, multiple joint involvement Unspecified arthropathy, multiple sites documented in this encounter [facility]* Diagnosis Chronic pain of both knees [...] history of fall [facility] Diagnosis Chronic pain of both [...] or anxiety (HCC) documented in this encounter [facility] note* Diagnosis Chronic pain of both knees Neuropathic pain Neuralgia, neuritis, and radiculitis, unspecified Chronic pain syndrome Lumbar spondylosis Lumbosacral spondylosis without myelopathy DDD (degenerative disc disease), cervical Degeneration of cervical intervertebral disc Arthritis, multiple joint involvement Unspecified arthropathy, multiple sites [facility]* Diagnosis Colovesical fistula Intestinovesical fistula Morbid obesity (HCC) Morbid obesity Poorly controlled diabetes mellitus (HCC) Type II or unspecified type diabetes mellitus without mention of complication, not stated as uncontrolled documented in this encounter [facility] note* Diagnosis Colovesical fistula- Primary Intestinovesical fistula documented in this encounter [facility] note* Diagnosis Colovesical fistula- Primary Intestinovesical fistula documented in this encounter [facility] note* Diagnosis Colovesical fistula- Primary Intestinovesical fistula documented in this encounter [facility] note* Diagnosis Medication management- Primary Encounter for long-term (current) use of other medications documented in this encounter [facility] note* Diagnosis Colovesical fistula- Primary Intestinovesical fistula Screening for ischemic heart disease- Primary documented in this encounter [facility] note* Diagnosis Chronic pain of both knees Neuropathic pain Neuralgia, neuritis, and radiculitis, unspecified Chronic pain syndrome Lumbar spondylosis Lumbosacral spondylosis without myelopathy DDD (degenerative disc disease), cervical Degeneration of cervical intervertebral disc Arthritis, multiple joint involvement Unspecified arthropathy, multiple sites documented in this encounter [facility] note* Diagnosis APPOINTMENT CANCELLED- Primary documented in this encounter [facility] note* Diagnosis Memory loss- Primary Mild episode of recurrent major depressive disorder (HCC) Nightmares Other dysfunctions of sleep stages or arousal from sleep 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 Diagnosis Colovaginal fistula- Primary Diverticulitis Diverticulitis of colon (without mention of hemorrhage) Abnormal CT scan Other nonspecific (abnormal) findings on radiological and other examinations of body structure Dementia, unspecified dementia severity, unspecified dementia type, unspecified whether behavioral, psychotic, or mood disturbance or anxiety (HCC) Morbid obesity (HCC) Morbid obesity 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 [facility] note* Diagnosis Memory loss 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 [facility] note* Diagnosis Colovaginal fistula Diabetes mellitus, type [address]) Type II or unspecified type diabetes mellitus without mention of complication, not stated as uncontrolled CHF (congestive heart failure) ([facility]) ([facility]) Congestive heart failure, unspecified documented in this encounter [facility] note* Diagnosis Moderate late onset Alzheimer's dementia without behavioral disturbance, psychotic disturbance, mood disturbance, or anxiety ([facility])- Primary Insomnia, unspecified type Apathetic behavior due to dementia ([facility]) Mild episode of recurrent major depressive disorder ([facility]) documented in this encounter [facility] note* Diagnosis Colovaginal fistula- Primary Colovesical fistula Intestinovesical fistula History of diverticulitis documented in this encounter [facility] note* Diagnosis Insomnia, unspecified type documented in this encounter [facility] note* Diagnosis Chronic pain of both [...] head and neck [facility] Diagnosis Other amnesia- Primary documented in this encounter [facility] note* Diagnosis Dysuria documented in this encounter [facility] note* Diagnosis Anemia, unspecified type- Primary Hyponatremia Hyposmolality and/or hyponatremia documented in this encounter [facility] note* Diagnosis Dysuria Chronic pain of both knees Neuropathic pain Neuralgia, neuritis, and radiculitis, unspecified Chronic pain syndrome Lumbar spondylosis Lumbosacral spondylosis without myelopathy DDD (degenerative disc disease), cervical Degeneration of cervical intervertebral disc Arthritis, multiple joint involvement Unspecified arthropathy, multiple sites documented in this encounter [facility] Discharge instructions* Attachments The following attachments cannot be sent through Care Everywhere. * Colon Polypectomy [facility] Inst[facility] (I[place]ic) [facility] Outpatient Procedure (Routine) - Authorized Specialty Diagnoses / Procedures Referred By Contac t Referred To Contact [facility] Diagnoses COPD with chronic bronchitis (HCC) SOB (shortness of breath) CHURCH (dyspnea on exertion) Procedures SPIROMETRY - BASELINE AND POST DILATOR BRNCDILAT RSPSE SPMTRY PRE&POST-BRNCDILAT ADMN Stephani Crooks PA-C [address] [place] [address] [facility] [place] [address] [place] [id number] Referral ID Status Reason Start Date Expiration Date Visits Requested Visits Authorized [id number] Authorized Auto-Generat ed Referral 05/07/2022 11/06/2022 1 1 * Outpatient Procedure (Routine) - Authorized Specialty Diagnoses / Procedures Referred By Contac t Referred To Contact [facility] Diagnoses Chronic diastolic heart failure (HCC) SOB (shortness of breath) CHURCH (dyspnea on exertion) Procedures ECHO ECHO TTHRC R-T 2D W/WOM-MODE COMPL SPEC&COLR D Stephani Crooks PA-C [address] [place] [address] [facility] [address] [address] Referral ID Status Reason Start Date Expiration Date Visits Requested Visits Authorized [id number] Authorized Auto-Generat ed Referral 05/07/2022 11/06/2022 1 1 [facility] for referral (narrative)* Outpatient Procedure (Routine) - Pending Review Specialty Diagnoses / Procedures Referred By Contac t Referred To Contact [facility] Diagnoses Colovesical fistula Procedures COLONOSCOPY DIAGNOSTIC COLONOSCOPY FLX DX W/COLLJ SPEC WHEN PFLeonel Larsen MD [address] [address] [facility] [place] [address] [place] [id number] Referral ID Status Reason Start Date Expiration Date Visits Requested Visits Authorized [id number] Pending Review Auto-Generat ed Referral 02/18/2023 02/19/2024 1 1 [facility] Summary Purpose Family History No Family History Records FoundNo Family History Records FoundNo Family History Records FoundNo Family History Records FoundNo Family History Records FoundNo Family History Records FoundNo Family History Records Found Advance Directives Documents on File Type Date Recorded 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 Expl anation Advance Directive(s) 07/21/2020 9:36 AM [...] Documents on File Type Date Recorded 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 Expl anation Advance Directive(s) 07/21/2020 9:36 AM [...] Documents on File Type Date Recorded 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 Expl anation Advance Directives and Livin g Will 05/04/2023 1:18 PM Latest Code Status on File Code Status Date Activated Date Inactivated Comments Full Code 05/25/2023 8:10 AM 05/25/2023 2:17 PM Documents on File Type Date Recorded 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 Expl anation Advance Directives and Livin g [...] Dysuria Nightmares Procedures CONSULT TO GERIATRICS OFFICE/OUTPATIENT [facility] 60-74 MINUTES Stephani Crooks PA-C [address] [place] [address] Referral ID Status Reason Start Date Expiration Date Visits Requested Visits Authorized [id number] Pending Review PCP Requested Referral 12/23/2022 12/23/2023 1 1 Specialty Diagnoses / Procedures Referred By Contac t Referred To Contact Colon and Rectal Surgery Diagnoses Colovesical fistula Procedures CONSULT TO COLO-RECTAL SURGERY OFFICE/OUTPATIENT [facility] 60-74 MINUTES Eufemia Chapa APRN.CURRICULUM COUNSELOR [address] [place] [address] Referral ID Status Reason Start Date Expiration Date Visits Requested Visits Authorized [id number] Pending Review PCP Requested Referral 01/06/2023 01/06/2024 1 1 Specialty Diagnoses / Procedures Referred By Contac t Referred To Contact Stephani Crooks PA-C [address] [place] [address] Referral ID Status Reason Start Date Expiration Date Visits Re quested Visits Authorized [id number] Closed 1 1 Specialty Diagnoses / Procedures Referred By Contac t Referred To Contact Colon and Rectal Surgery Diagnoses Colovesical fistula Procedures CONSULT TO COLO-RECTAL SURGERY OFFICE/OUTPATIENT [facility] MDM 60-74 MINUTES Leesa Ramirez MD [address] [facility] [facility] [facility] [place] [address] Referral ID Status Reason Start Date Expiration Date Visits Requested Visits Authorized [id number] Pending Review PCP Requested Referral 01/25/2023 01/25/2024 1 1 Specialty Diagnoses / Procedures Referred By Lovely t Referred To Contact Radiology Diagnoses Memory loss Procedures CT head wo IV contrast Shantal Serrano, DIAPER MACHINE TENDER - CURRICULUM COUNSELOR [address] [place] [address] Referral ID Status Reason Start Date Expiration Date V isits Requested Visits Authorized [id number] Authorized 04/05/2023 10/02/2023 1 1 Referral ID Status Reason Start Date Expiration Date Visits Re quested Visits Authorized [id number] Closed 04/05/2023 10/02/2023 1 1 Additional Source Comments INFORMATION SOURCE (unrecogn ized section and content) DATE CREATED AUTHOR AUTHOR'S ORGANIZ ATION 04/13/2019 [facility] [employer] [facility] DATE CREATED AUTHOR AUTHOR'S ORGANIZ ATION 07/22/2021 [facility] DATE CREATED AUTHOR AUTHOR'S ORGANIZ ATION 01/06/2023 [facility] DATE CREATED AUTHOR AUTHOR'S ORGANIZ ATION 02/05/2023 [facility] DATE CREATED AUTHOR AUTHOR'S ORGANIZ ATION 09/02/2023 [facility] DATE CREATED AUTHOR AUTHOR'S ORGANIZ ATION 09/21/2023 [facility] [employer] [facility] Source Comments (unrecognize d section and content) In the event this informatio n is protected by the Federal Confidentiality of Alcohol and Drug Abuse Patient Records regulations: The Federal rules restrict any use of the information to criminally investigate or prosecute any alcohol or drug abuse patient.[facility] the event this information is protected by the Federal Confidentiality of Alcohol and Drug Abuse Patient Records regulations: The Federal rules restrict any use of the information to criminally investigate or prosecute any alcohol or drug abuse patient.[facility] CenterIn the event this information is protected by the Federal Confidentiality of Alcohol and Drug Abuse Patient Records regulations: The Federal rules restrict any use of the information to criminally investigate or prosecute any alcohol or drug abuse patient.[facility] CenterIn the event this information is protected by the Federal Confidentiality of Alcohol and Drug Abuse Patient Records regulations: The Federal rules restrict any use of the information to criminally investigate or prosecute any alcohol or drug abuse patient.[facility] CenterIn the event this information is protected by the Federal Confidentiality of Alcohol and Drug Abuse Patient Records regulations: The Federal rules restrict any use of the information to criminally investigate or prosecute any alcohol or drug abuse patient.[facility] CenterIn the event this information is protected by the Federal Confidentiality of Alcohol and Drug Abuse Patient Records regulations: The Federal rules restrict any use of the information to criminally investigate or prosecute any alcohol or drug abuse patient.[facility] CenterIn the event this information is protected by the Federal Confidentiality of Alcohol and Drug Abuse Patient Records regulations: The Federal rules restrict any use of the information to criminally investigate or prosecute any alcohol or drug abuse patient.[facility] CenterIn the event this information is protected by the Federal Confidentiality of Alcohol and Drug Abuse Patient Records regulations: The Federal rules restrict any use of the information to criminally investigate or prosecute any alcohol or drug abuse patient.[facility] CenterIn the event this information is protected by the Federal Confidentiality of Alcohol and Drug Abuse Patient Records regulations: The Federal rules restrict any use of the information to criminally investigate or prosecute any alcohol or drug abuse patient.[facility] CenterIn the event this information is protected by the Federal Confidentiality of Alcohol and Drug Abuse Patient Records regulations: The Federal rules restrict any use of the information to criminally investigate or prosecute any alcohol or drug abuse patient.[facility] CenterIn the event this information is protected by the Federal Confidentiality of Alcohol and Drug Abuse Patient Records regulations: The Federal rules restrict any use of the information to criminally investigate or prosecute any alcohol or drug abuse patient.[facility] CenterIn the event this information is protected by the Federal Confidentiality of Alcohol and Drug Abuse Patient Records regulations: The Federal rules restrict any use of the information to criminally investigate or prosecute any alcohol or drug abuse patient.[facility] CenterIn the event this information is protected by the Federal Confidentiality of Alcohol and Drug Abuse Patient Records regulations: The Federal rules restrict any use of the information to criminally investigate or prosecute any alcohol or drug abuse patient.[facility] CenterIn the event this information is protected by the Federal Confidentiality of Alcohol and Drug Abuse Patient Records regulations: The Federal rules restrict any use of the information to criminally investigate or prosecute any alcohol or drug abuse patient.[facility] CenterIn the event this information is protected by the Federal Confidentiality of Alcohol and Drug Abuse Patient Records regulations: The Federal rules restrict any use of the information to criminally investigate or prosecute any alcohol or drug abuse patient.[facility] CenterIn the event this information is protected by the Federal Confidentiality of Alcohol and Drug Abuse Patient Records regulations: The Federal rules restrict any use of the information to criminally investigate or prosecute any alcohol or drug abuse patient.[facility] CenterIn the event this information is protected by the Federal Confidentiality of Alcohol and Drug Abuse Patient Records regulations: The Federal rules restrict any use of the information to criminally investigate or prosecute any alcohol or drug abuse patient.[facility] CenterIn the event this information is protected by the Federal Confidentiality of Alcohol and Drug Abuse Patient Records regulations: The Federal rules restrict any use of the information to criminally investigate or prosecute any alcohol or drug abuse patient.[facility] CenterIn the event this information is protected by the Federal Confidentiality of Alcohol and Drug Abuse Patient Records regulations: The Federal rules restrict any use of the information to criminally investigate or prosecute any alcohol or drug abuse patient.[facility] CenterIn the event this information is protected by the Federal Confidentiality of Alcohol and Drug Abuse Patient Records regulations: The Federal rules restrict any use of the information to criminally investigate or prosecute any alcohol or drug abuse patient.[facility] CenterIn the event this information is protected by the Federal Confidentiality of Alcohol and Drug Abuse Patient Records regulations: The Federal rules restrict any use of the information to criminally investigate or prosecute any alcohol or drug abuse patient.[facility] CenterIn the event this information is protected by the Federal Confidentiality of Alcohol and Drug Abuse Patient Records regulations: The Federal rules restrict any use of the information to criminally investigate or prosecute any alcohol or drug abuse patient.[facility] CenterIn the event this information is protected by the Federal Confidentiality of Alcohol and Drug Abuse Patient Records regulations: The Federal rules restrict any use of the information to criminally investigate or prosecute any alcohol or drug abuse patient.[facility] CenterIn the event this information is protected by the Federal Confidentiality of Alcohol and Drug Abuse Patient Records regulations: The Federal rules restrict any use of the information to criminally investigate or prosecute any alcohol or drug abuse patient.[facility] CenterIn the event this information is protected by the Federal Confidentiality of Alcohol and Drug Abuse Patient Records regulations: The Federal rules restrict any use of the information to criminally investigate or prosecute any alcohol or drug abuse patient.[facility] CenterIn the event this information is protected by the Federal Confidentiality of Alcohol and Drug Abuse Patient Records regulations: The Federal rules restrict any use of the information to criminally investigate or prosecute any alcohol or drug abuse patient.[facility] CenterIn the event this information is protected by the Federal Confidentiality of Alcohol and Drug Abuse Patient Records regulations: The Federal rules restrict any use of the information to criminally investigate or prosecute any alcohol or drug abuse patient.[facility] CenterIn the event this information is protected by the Federal Confidentiality of Alcohol and Drug Abuse Patient Records regulations: The Federal rules restrict any use of the information to criminally investigate or prosecute any alcohol or drug abuse patient.[facility] CenterIn the event this information is protected by the Federal Confidentiality of Alcohol and Drug Abuse Patient Records regulations: The Federal rules restrict any use of the information to criminally investigate or prosecute any alcohol or drug abuse patient.[facility] CenterIn the event this information is protected by the Federal Confidentiality of Alcohol and Drug Abuse Patient Records regulations: The Federal rules restrict any use of the information to criminally investigate or prosecute any alcohol or drug abuse patient.[facility] CenterIn the event this information is protected by the Federal Confidentiality of Alcohol and Drug Abuse Patient Records regulations: The Federal rules restrict any use of the information to criminally investigate or prosecute any alcohol or drug abuse patient.[facility] CenterIn the event this information is protected by the Federal Confidentiality of Alcohol and Drug Abuse Patient Records regulations: The Federal rules restrict any use of the information to criminally investigate or prosecute any alcohol or drug abuse patient.[facility] CenterIn the event this information is protected by the Federal Confidentiality of Alcohol and Drug Abuse Patient Records regulations: The Federal rules restrict any use of the information to criminally investigate or prosecute any alcohol or drug abuse patient.[facility] CenterIn the event this information is protected by the Federal Confidentiality of Alcohol and Drug Abuse Patient Records regulations: The Federal rules restrict any use of the information to criminally investigate or prosecute any alcohol or drug abuse patient.[facility] CenterIn the event this information is protected by the Federal Confidentiality of Alcohol and Drug Abuse Patient Records regulations: The Federal rules restrict any use of the information to criminally investigate or prosecute any alcohol or drug abuse patient.[facility] CenterIn the event this information is protected by the Federal Confidentiality of Alcohol and Drug Abuse Patient Records regulations: The Federal rules restrict any use of the information to criminally investigate or prosecute any alcohol or drug abuse patient.[facility] CenterIn the event this information is protected by the Federal Confidentiality of Alcohol and Drug Abuse Patient Records regulations: The Federal rules restrict any use of the information to criminally investigate or prosecute any alcohol or drug abuse patient.[facility] CenterIn the event this information is protected by the Federal Confidentiality of Alcohol and Drug Abuse Patient Records regulations: The Federal rules restrict any use of the information to criminally investigate or prosecute any alcohol or drug abuse patient.[facility] CenterIn the event this information is protected by the Federal Confidentiality of Alcohol and Drug Abuse Patient Records regulations: The Federal rules restrict any use of the information to criminally investigate or prosecute any alcohol or drug abuse patient.[facility] CenterIn the event this information is protected by the Federal Confidentiality of Alcohol and Drug Abuse Patient Records regulations: The Federal rules restrict any use of the information to criminally investigate or prosecute any alcohol or drug abuse patient.[facility] CenterIn the event this information is protected by the Federal Confidentiality of Alcohol and Drug Abuse Patient Records regulations: The Federal rules restrict any use of the information to criminally investigate or prosecute any alcohol or drug abuse patient.[facility] CenterIn the event this information is protected by the Federal Confidentiality of Alcohol and Drug Abuse Patient Records regulations: The Federal rules restrict any use of the information to criminally investigate or prosecute any alcohol or drug abuse patient.[facility] CenterIn the event this information is protected by the Federal Confidentiality of Alcohol and Drug Abuse Patient Records regulations: The Federal rules restrict any use of the information to criminally investigate or prosecute any alcohol or drug abuse patient.[facility] CenterIn the event this information is protected by the Federal Confidentiality of Alcohol and Drug Abuse Patient Records regulations: The Federal rules restrict any use of the information to criminally investigate or prosecute any alcohol or drug abuse patient.[facility] CenterIn the event this information is protected by the Federal Confidentiality of Alcohol and Drug Abuse Patient Records regulations: The Federal rules restrict any use of the information to criminally investigate or prosecute any alcohol or drug abuse patient.[facility] CenterIn the event this information is protected by the Federal Confidentiality of Alcohol and Drug Abuse Patient Records regulations: The Federal rules restrict any use of the information to criminally investigate or prosecute any alcohol or drug abuse patient.[facility] CenterIn the event this information is protected by the Federal Confidentiality of Alcohol and Drug Abuse Patient Records regulations: The Federal rules restrict any use of the information to criminally investigate or prosecute any alcohol or drug abuse patient.[facility] CenterIn the event this information is protected by the Federal Confidentiality of Alcohol and Drug Abuse Patient Records regulations: The Federal rules restrict any use of the information to criminally investigate or prosecute any alcohol or drug abuse patient.[facility] CenterIn the event this information is protected by the Federal Confidentiality of Alcohol and Drug Abuse Patient Records regulations: The Federal rules restrict any use of the information to criminally investigate or prosecute any alcohol or drug abuse patient.[facility] CenterIn the event this information is protected by the Federal Confidentiality of Alcohol and Drug Abuse Patient Records regulations: The Federal rules restrict any use of the information to criminally investigate or prosecute any alcohol or drug abuse patient.[facility] CenterIn the event this information is protected by the Federal Confidentiality of Alcohol and Drug Abuse Patient Records regulations: The Federal rules restrict any use of the information to criminally investigate or prosecute any alcohol or drug abuse patient.[facility] CenterIn the event this information is protected by the Federal Confidentiality of Alcohol and Drug Abuse Patient Records regulations: The Federal rules restrict any use of the information to criminally investigate or prosecute any alcohol or drug abuse patient.[facility] CenterIn the event this information is protected by the Federal Confidentiality of Alcohol and Drug Abuse Patient Records regulations: The Federal rules restrict any use of the information to criminally investigate or prosecute any alcohol or drug abuse patient.[facility] CenterIn the event this information is protected by the Federal Confidentiality of Alcohol and Drug Abuse Patient Records regulations: The Federal rules restrict any use of the information to criminally investigate or prosecute any alcohol or drug abuse patient.[facility] CenterIn the event this information is protected by the Federal Confidentiality of Alcohol and Drug Abuse Patient Records regulations: The Federal rules restrict any use of the information to criminally investigate or prosecute any alcohol or drug abuse patient.[facility] CenterIn the event this information is protected by the Federal Confidentiality of Alcohol and Drug Abuse Patient Records regulations: The Federal rules restrict any use of the information to criminally investigate or prosecute any alcohol or drug abuse patient.[facility] CenterIn the event this information is protected by the Federal Confidentiality of Alcohol and Drug Abuse Patient Records regulations: The Federal rules restrict any use of the information to criminally investigate or prosecute any alcohol or drug abuse patient.[facility] CenterIn the event this information is protected by the Federal Confidentiality of Alcohol and Drug Abuse Patient Records regulations: The Federal rules restrict any use of the information to criminally investigate or prosecute any alcohol or drug abuse patient.[facility] CenterIn the event this information is protected by the Federal Confidentiality of Alcohol and Drug Abuse Patient Records regulations: The Federal rules restrict any use of the information to criminally investigate or prosecute any alcohol or drug abuse patient.[facility] CenterIn the event this information is protected by the Federal Confidentiality of Alcohol and Drug Abuse Patient Records regulations: The Federal rules restrict any use of the information to criminally investigate or prosecute any alcohol or drug abuse patient.[facility] CenterIn the event this information is protected by the Federal Confidentiality of Alcohol and Drug Abuse Patient Records regulations: The Federal rules restrict any use of the information to criminally investigate or prosecute any alcohol or drug abuse patient.[facility] CenterIn the event this information is protected by the Federal Confidentiality of Alcohol and Drug Abuse Patient Records regulations: The Federal rules restrict any use of the information to criminally investigate or prosecute any alcohol or drug abuse patient.[facility] CenterIn the event this information is protected by the Federal Confidentiality of Alcohol and Drug Abuse Patient Records regulations: The Federal rules restrict any use of the information to criminally investigate or prosecute any alcohol or drug abuse patient.[facility] CenterIn the event this information is protected by the Federal Confidentiality of Alcohol and Drug Abuse Patient Records regulations: The Federal rules restrict any use of the information to criminally investigate or prosecute any alcohol or drug abuse patient.[facility] CenterIn the event this information is protected by the Federal Confidentiality of Alcohol and Drug Abuse Patient Records regulations: The Federal rules restrict any use of the information to criminally investigate or prosecute any alcohol or drug abuse patient.[facility] CenterIn the event this information is protected by the Federal Confidentiality of Alcohol and Drug Abuse Patient Records regulations: The Federal rules restrict any use of the information to criminally investigate or prosecute any alcohol or drug abuse patient.[facility] CenterIn the event this information is protected by the Federal Confidentiality of Alcohol and Drug Abuse Patient Records regulations: The Federal rules restrict any use of the information to criminally investigate or prosecute any alcohol or drug abuse patient.[facility] CenterIn the event this information is protected by the Federal Confidentiality of Alcohol and Drug Abuse Patient Records regulations: The Federal rules restrict any use of the information to criminally investigate or prosecute any alcohol or drug abuse patient.[facility] CenterIn the event this information is protected by the Federal Confidentiality of Alcohol and Drug Abuse Patient Records regulations: The Federal rules restrict any use of the information to criminally investigate or prosecute any alcohol or drug abuse patient.[facility] CenterIn the event this information is protected by the Federal Confidentiality of Alcohol and Drug Abuse Patient Records regulations: The Federal rules restrict any use of the information to criminally investigate or prosecute any alcohol or drug abuse patient.[facility] CenterIn the event this information is protected by the Federal Confidentiality of Alcohol and Drug Abuse Patient Records regulations: The Federal rules restrict any use of the information to criminally investigate or prosecute any alcohol or drug abuse patient.[facility] CenterIn the event this information is protected by the Federal Confidentiality of Alcohol and Drug Abuse Patient Records regulations: The Federal rules restrict any use of the information to criminally investigate or prosecute any alcohol or drug abuse patient.[facility] CenterIn the event this information is protected by the Federal Confidentiality of Alcohol and Drug Abuse Patient Records regulations: The Federal rules restrict any use of the information to criminally investigate or prosecute any alcohol or drug abuse patient.[facility] CenterIn the event this information is protected by the Federal Confidentiality of Alcohol and Drug Abuse Patient Records regulations: The Federal rules restrict any use of the information to criminally investigate or prosecute any alcohol or drug abuse patient.[facility] CenterIn the event this information is protected by the Federal Confidentiality of Alcohol and Drug Abuse Patient Records regulations: The Federal rules restrict any use of the information to criminally investigate or prosecute any alcohol or drug abuse patient.[facility] CenterIn the event this information is protected by the Federal Confidentiality of Alcohol and Drug Abuse Patient Records regulations: The Federal rules restrict any use of the information to criminally investigate or prosecute any alcohol or drug abuse patient.[facility] CenterIn the event this information is protected by the Federal Confidentiality of Alcohol and Drug Abuse Patient Records regulations: The Federal rules restrict any use of the information to criminally investigate or prosecute any alcohol or drug abuse patient.[facility] CenterIn the event this information is protected by the Federal Confidentiality of Alcohol and Drug Abuse Patient Records regulations: The Federal rules restrict any use of the information to criminally investigate or prosecute any alcohol or drug abuse patient.[facility] CenterIn the event this information is protected by the Federal Confidentiality of Alcohol and Drug Abuse Patient Records regulations: The Federal rules restrict any use of the information to criminally investigate or prosecute any alcohol or drug abuse patient.[facility] CenterIn the event this information is protected by the Federal Confidentiality of Alcohol and Drug Abuse Patient Records regulations: The Federal rules restrict any use of the information to criminally investigate or prosecute any alcohol or drug abuse patient.[facility] CenterIn the event this information is protected by the Federal Confidentiality of Alcohol and Drug Abuse Patient Records regulations: The Federal rules restrict any use of the information to criminally investigate or prosecute any alcohol or drug abuse patient.[facility] CenterIn the event this information is protected by the Federal Confidentiality of Alcohol and Drug Abuse Patient Records regulations: The Federal rules restrict any use of the information to criminally investigate or prosecute any alcohol or drug abuse patient.[facility] CenterIn the event this information is protected by the Federal Confidentiality of Alcohol and Drug Abuse Patient Records regulations: The Federal rules restrict any use of the information to criminally investigate or prosecute any alcohol or drug abuse patient.[facility] CenterIn the event this information is protected by the Federal Confidentiality of Alcohol and Drug Abuse Patient Records regulations: The Federal rules restrict any use of the information to criminally investigate or prosecute any alcohol or drug abuse patient.[facility] CenterIn the event this information is protected by the Federal Confidentiality of Alcohol and Drug Abuse Patient Records regulations: The Federal rules restrict any use of the information to criminally investigate or prosecute any alcohol or drug abuse patient.[facility] Reason for Visit (unrecogniz ed section and content) Reason Onset Date Comments Refill Request 03/31/2022 Reason Onset Date Comments Refill Request 04/21/2022 Reason Comments Multiple Missed Appointment Reason Comments 6 Month Exam Specialty Diagnoses / Procedures Referred By Lovely estrada Referred To Contact Family Practice / FAMILY MEDICINE Diagnoses 6 mo follow up /meds Procedures 4C MD Valeriy Ortega Rayanne, [address] [place] [address] Referral ID Status Reason Start Date Expiration Date Visits Re quested Visits Authorized [id number] Closed 05/05/2022 11/06/2022 1 1 Reason Comments [...] RSPSE SPMTRY PRE&POST-BRNCDILAT ADMStephani Vazquez PA-C [address] [place] [address] [facility] [place] [address] [place] [address] Referral ID Status Reason Start Date Expiration Date V isits Requested Visits Authorized [id number] Closed Auto-Generate d Referral 05/07/2022 11/06/2022 1 1 Reason Comments Social Work Services Reason Comments Recheck Specialty Diagnoses / Procedures Referred By Contac t Referred To Contact Family Practice / FAMILY MEDICINE Diagnoses 4 weeks follow up Procedures 4C MD Brigitte Ortega Jeffrey A, MD [address] [place] [address] Referral ID Status Reason Start Date Expiration Date Visits Re quested Visits Authorized [id number] Closed 05/24/2022 11/06/2022 1 1 Reason Comments [facility] social sciences instructor verbal order reques t Reason Comments Patient [...] med check Procedures 4C Leno Abrams MD [address] [place] [address] Leno Briggs MD [address] [place] [address] Referral ID Status Reason Start Date Expiration Date Visits Re quested Visits Authorized [id number] Closed 07/05/2022 11/06/2022 1 1 Reason Comments [...] type Procedures CONSULT TO URO GYNECOLOGY OFFICE/OUTPATIENT [facility] 60-74 MINUTES Madalyn Degroot APRN.CNM [address] [place] [address] Referral ID Status Reason Start Date Expiration Date Visits Requested Visits Authorized [id number] Pending Review PCP Requested Referral Auto-Generate d Referral 12/28/2022 12/28/2023 1 1 Reason Onset Date Comments Refill Request 01/05/2023 Reason Comments vaginal pain Reason Onset Date Comments Refill Request 01/18/2023 Reason Comments Consult Colovesical fistula Specialty Diagnoses / Procedures Referred By Contac t Referred To Contact Colon and Rectal Surgery Diagnoses Colovesical fistula Procedures CONSULT TO COLO-RECTAL SURGERY OFFICE/OUTPATIENT [facility] 60-74 MINUTES Eufemia Chapa, DIAPER MACHINE TENDER.CURRICULUM COUNSELOR [address] [place] [address] Referral ID Status Reason Start Date Expiration Date Visits Requested Visits Authorized [id number] Pending Review PCP Requested Referral 01/06/2023 01/06/2024 [...] dementia Procedures geriatric assessment Stephani Crooks [address] [place] [address] [facility] [address] [place] [address] Referral ID Status Reason Start Date Expiration Date V isits Requested Visits Authorized [id number] Pending Review 03/16/2023 09/12/2023 1 1 Reason Comments New Patient Evaluation for colov esical fistula Other Patient accompanied by Gail sister, Mariela daughter Reason Onset Date Comments Refill Request 04/10/2023 Specialty Diagnoses / Procedures Referred By Contac t Referred To Contact Radiology Diagnoses Memory loss Procedures CT head wo IV contrast Shantal Serrano, DIAPER MACHINE TENDER - CURRICULUM COUNSELOR [address] [place] [address] Referral ID Status Reason Start Date Expiration Date Visits Re quested Visits Authorized [id number] Closed 04/05/2023 10/02/2023 1 1 Specialty Diagnoses / Procedures Referred By Contac t Referred To Contact 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] Procedures LA COLONOSCOPY FLX DX W/COLLJ SPEC WHEN PFRMD COLONOSCOPY Samantha Nava MD [address] [place] [address] [facility] [address] [facility] [place] [address] Referral ID Status Reason Start Date Expiration Date Visits Re quested Visits Authorized [id number] 1 Reason Comments Memory Loss Reason Comments Results Best # [phone]( Mariela, daughter)Discuss results of colonoscopy done 05/25/23 Reason Comments Med Refill Reason Comments Recheck Follow up 6 months Reason Onset Date Comments Med Refill 07/05/2023 Reason Onset Date Comments Refill Request 08/23/2023 Reason Onset Date Comments Cancelled Appointment 08/16/2023 Cancel miles ointment 10.10.23 2:45pm Reason Onset Date Comments change appointment 09/14/2023 Care Teams (unrecognized sec tion and content) Automotive Alignment Specialist Relationship Specialty Start Date End Date Leno Briggs MD [facility] [place] [address] PCP - General Family Practice 11/25/16 Automotive Alignment Specialist Relationship Specialty Start Date End Date Leno Briggs MD [address] [place] [address], [place] [address] PCP - General Family Practice 11/25/16 Automotive Alignment Specialist Relationship Specialty Start Date End Date Leno Briggs MD [address] [place] [address], [place] [address] PCP - General Family Practice 11/25/16 Automotive Alignment Specialist Relationship Specialty Start Date End Date Leno Briggs MD [address] [place] [address], [place] [address] PCP - General Family Practice 11/25/16 Automotive Alignment Specialist Relationship Specialty Start Date End Date Leno Briggs MD [address] [place] [address], [place] [address] PCP - General Family Practice 11/25/16 Automotive Alignment Specialist Relationship Specialty Start Date End Date Leno Briggs MD [address] [place] [address], [place] [address] PCP - General Family Practice 11/25/16 Automotive Alignment Specialist Relationship Specialty Start Date End Date Leno Briggs MD [address] [place] [address], [place] [address] PCP - General Family Practice 11/25/16 Automotive Alignment Specialist Relationship Specialty Start Date End Date Leno Briggs MD [address] [place] [address] [place] [address] PCP - General Family Practice 11/25/16 Automotive Alignment Specialist Relationship Specialty Start Date End Date Leno Briggs MD [address] [place] [address] PCP - General Family Practice 11/25/16 Automotive Alignment Specialist Relationship Specialty Start Date End Date Leno Briggs MD [address] [place] [address] PCP - General Family Practice 11/25/16 Automotive Alignment Specialist Relationship Specialty Start Date End Date Leno Briggs MD [facility] [place] [address] PCP - General Family Practice 11/25/16 Automotive Alignment Specialist Relationship Specialty Start Date End Date Leno Briggs MD [address] [place] [address], [place] [address] PCP - General Family Practice 11/25/16 Automotive Alignment Specialist Relationship Specialty Start Date End Date Leno Briggs MD [facility] [place] [address] PCP - General Family Practice 11/25/16 Automotive Alignment Specialist Relationship Specialty Start Date End Date Leno Briggs MD [facility] [place] [address] PCP - General Family Practice 11/25/16 Automotive Alignment Specialist Relationship Specialty Start Date End Date Leno Briggs MD [facility] [place] [address] PCP - General Family Practice 11/25/16 Automotive Alignment Specialist Relationship Specialty Start Date End Date Leno Brgigs MD [facility] [place] [address] PCP - General Family Practice 11/25/16 Automotive Alignment Specialist Relationship Specialty Start Date End Date Leno Briggs MD [address] [place] [address], [place] [address] PCP - General Family Practice 11/25/16 Automotive Alignment Specialist Relationship Specialty Start Date End Date Leno Briggs MD [address] [place] [address] PCP - General Family Practice 11/25/16 Automotive Alignment Specialist Relationship Specialty Start Date End Date Leno Briggs MD [facility] [place] [address] PCP - General Family Practice 11/25/16 Automotive Alignment Specialist Relationship Specialty Start Date End Date Leno Briggs MD [address] [place] [address], [place] [address] PCP - General Family Practice 11/25/16 Automotive Alignment Specialist Relationship Specialty Start Date End Date Leno Briggs MD [address] [place] [address], [place] [address] PCP - General Family Medicine 11/25/16 Automotive Alignment Specialist Relationship Specialty Start Date End Date Leno Briggs MD [address] [place] [address] [place] [address] PCP - General Family Medicine 11/25/16 Automotive Alignment Specialist Relationship Specialty Start Date End Date Leno Briggs MD [address] [place] [address] [place] [address] PCP - General Family Medicine 11/25/16 Automotive Alignment Specialist Relationship Specialty Start Date End Date Leno Briggs MD [address] [place] [address], [place] [address] PCP - General Family Medicine 11/25/16 Automotive Alignment Specialist Relationship Specialty Start Date End Date Leno Briggs MD [address] [place] [address], [place] [address] PCP - General Family Medicine 11/25/16 Automotive Alignment Specialist Relationship Specialty Start Date End Date Leno Briggs MD [address] [place] [address] PCP - General Family Medicine 11/25/16 Automotive Alignment Specialist Relationship Specialty Start Date End Date Leno Briggs MD [address] [place] [address] PCP - General Family Medicine 11/25/16 Automotive Alignment Specialist Relationship Specialty Start Date End Date Leno Briggs MD [facility] [place] [address] PCP - General Family Medicine 11/25/16 Automotive Alignment Specialist Relationship Specialty Start Date End Date Leno Briggs MD [address] [place] [address], [place] [address] PCP - General Family Medicine 11/25/16 Automotive Alignment Specialist Relationship Specialty Start Date End Date Leno Briggs MD [address] [place] [address], [place] [address] PCP - General Family Medicine 11/25/16 Automotive Alignment Specialist Relationship Specialty Start Date End Date Leno Briggs MD [facility] [place] [address] PCP - General Family Medicine 11/25/16 Automotive Alignment Specialist Relationship Specialty Start Date End Date Leno Briggs MD [facility] [place] [address] PCP - General Family Medicine 11/25/16 Automotive Alignment Specialist Relationship Specialty Start Date End Date Leno Briggs MD [facility] [place] [address] PCP - General Family Medicine 11/25/16 Automotive Alignment Specialist Relationship Specialty Start Date End Date Leno Briggs MD [facility] [place] [address] PCP - General Family Medicine 11/25/16 Automotive Alignment Specialist Relationship Specialty Start Date End Date Leno Briggs MD [address] [place] [address] PCP - General Family Medicine 11/25/16 Automotive Alignment Specialist Relationship Specialty Start Date End Date Leno Briggs MD [address] [place] [address] PCP - General Family Medicine 11/25/16 Automotive Alignment Specialist Relationship Specialty Start Date End Date Leno Briggs MD [address] [place] [address] PCP - General Family Medicine 11/25/16 Automotive Alignment Specialist Relationship Specialty Start Date End Date Leno Briggs MD [facility] [place] [address] PCP - General Family Medicine 11/25/16 Automotive Alignment Specialist Relationship Specialty Start Date End Date Leno Briggs MD [facility] [place] [address] PCP - General Family Medicine 11/25/16 Automotive Alignment Specialist Relationship Specialty Start Date End Date Leno Briggs MD [facility] [place] [address] PCP - General Family Medicine 11/25/16 Automotive Alignment Specialist Relationship Specialty Start Date End Date Leno Briggs MD [facility] [place] [address] PCP - General Family Medicine 11/25/16 Automotive Alignment Specialist Relationship Specialty Start Date End Date Leno Briggs MD [facility] [place] [address] PCP - General Family Medicine 11/25/16 Automotive Alignment Specialist Relationship Specialty Start Date End Date Leno Briggs MD [facility] [place] [address] PCP - General Family Medicine 11/25/16 Automotive Alignment Specialist Relationship Specialty Start Date End Date Leno Briggs MD [address] [place] [address] [place] [address] PCP - General 04/01/19 Automotive Alignment Specialist Relationship Specialty Start Date End Date Leno Briggs MD [address] [address] [place], [place] [id number] PCP - General 04/01/19 Automotive Alignment Specialist Relationship Specialty Start Date End Date Leno Briggs MD [address] [place], [place] [id number] PCP - General 04/01/19 Automotive Alignment Specialist Relationship Specialty Start Date End Date Leno Briggs MD [address] [place], [place] [id number] PCP - General 04/01/19 Automotive Alignment Specialist Relationship Specialty Start Date End Date Leno Briggs MD [address] [place], [place] [id number] PCP - General 04/01/19 Automotive Alignment Specialist Relationship Specialty Start Date End Date Leno Briggs MD [address] [place] [address] [place] [address] PCP - General 04/01/19 Automotive Alignment Specialist Relationship Specialty Start Date End Date Leno Briggs MD [address] [place] [address] [place], [place] [id number] PCP - General 04/01/19 Automotive Alignment Specialist Relationship Specialty Start Date End Date Leno Briggs MD [address] [place] [address] PCP - General Family Medicine 11/25/16 Automotive Alignment Specialist Relationship Specialty Start Date End Date Leno Briggs MD [address] [place] [address] PCP - General Family Medicine 11/25/16 Automotive Alignment Specialist Relationship Specialty Start Date End Date Leno Briggs MD [address] [place] [address] PCP - General Family Medicine 11/25/16 Automotive Alignment Specialist Relationship Specialty Start Date End Date Leno Briggs MD [address] [place] [address] PCP - General Family Medicine 11/25/16 Automotive Alignment Specialist Relationship Specialty Start Date End Date Leno Briggs MD [address] [address] [place] [address] PCP - General 04/01/19 Automotive Alignment Specialist Relationship Specialty Start Date End Date Leno Briggs MD [address] [place] [address] PCP - General 04/01/19 Automotive Alignment Specialist Relationship Specialty Start Date End Date Leno Briggs MD [address] [place] [address] PCP - General Family Medicine 11/25/16 Automotive Alignment Specialist Relationship Specialty Start Date End Date Leno Briggs MD [address] [place] [address] PCP - General Family Medicine 11/25/16 Automotive Alignment Specialist Relationship Specialty Start Date End Date Leno Briggs MD [address] [place] [address] PCP - General Family Medicine 11/25/16 Scheduled [...] BE BASED ON THE PRIMARY CLINICAL RECORDS. [employer] provides no warranty or guarantee of the accuracy or completeness of information in this document.
--- OUTSIDE RECORDS SUMMARY | 2023-11-06 18:29 | XMS RPT_ITS | CCD ---
Author Name Unknown Address [address] [place] [address] Organization [facility] Care Team Providers Care Teaching Dietitian Name Role Phone LINO ZHU Unavailable Unavailable Leno Briggs Unavailable Unavailable LINO ZHU Unavailable Unavailable LINO ZHU Unavailable Unavailable Leno Briggs Unavailable Unavailable Leno Briggs MD Primary Care Provider [phone] Leno Briggs MD Primary Care Provider Leno Briggs MD Primary Care Provider Leno Briggs MD Primary Care Provider [phone] MARII VAIL DO Attending Unavailable PHYSICIAN, NONE Primary Care Unavailable LENO BRIGGS Primary Care Unavailable MADALYN DEGROOT Referring Unavailable EUFEMIA CHAPA Attending Unavailable Leno Briggs MD Primary Care Provider Leno Briggs MD Primary Care Provider Leno Briggs MD Primary Care Provider [phone] LENO BRIGGS Primary Care Unavailable MADALYN DEGROOT [...] 10-12-20 11 Mental Status Change, Dizziness, Unknown [facility] Repository (1 source) Contrast media; Translations: [CONTRAST DYE] Propensity to adverse reactions (disorder) [facility] Repository (20 sources) escitalopram; Translations: [ESCITALOPRAM] Drug Allergy 05-28-20 13 Other: See Comments [facility] Repository (20 sources) sertraline; Translations: [SERTRALINE HCL] Drug Allergy 10-12-20 11 Other: See Comments [facility] Repository (20 sources) sulfamethoxazole / trimethoprim; Translations: [SULFAMETHOXAZOLE-T RIMETHOPRIM] Drug Allergy 01-21-20 15 Itching [facility] Repository (20 sources) traMADol; Translations: [TRAMADOL] Drug Allergy 10-12-20 11 Other: See Comments, Dermatitis, Dizziness, Other [facility] Repository (20 sources) Garlic preparation; Translations: [GARLIC OIL] Drug Allergy 08-09-20 19 Other: See Comments [facility] Work Phone: (20 sources) oxybutynin; Translations: [OXYBUTYNIN] Drug Allergy 12-03-19 Other: See Comments [facility] Work Phone: (13 sources) traZODone Drug Allergy 01-15-20 Other [facility] (13 sources) Iodinated Contrast Media Drug Allergy 01-15-20 Other [facility] [place] Medications Current Medications Medication Drug Class(es) Dates [...] 11-25-2016 Chronic Other aftercare (1 source) Other shelter (current) drug therapy; Translations: [Medication management] Onset: [...] (20 sources) Drug therapy finding; Translations: [Other terminal operations supervisor (current) drug therapy] Onset: 11-25-2016 01-04-2020 Episodic [...] Results Test Name Value Interpretation Reference Range [facility] it Vital Signs Date Time Vital Sign Value Performing Clinician Amy perdue 06-21-2023 14:28-0400 Body weight 137.44 kg Leno Briggs MD Work Phone: [facility] 06-21-2023 14:28-0400 Diastolic blood pressure 84 mm[Hg] Leno Briggs MD Work Phone: [facility] 06-21-2023 14:28-0400 Heart rate 80 /min Leno Briggs MD Work Phone: [facility] 06-21-2023 14:28-0400 Respiratory rate 14 /min Leno Briggs MD Work Phone: [facility] 06-21-2023 14:28-0400 Systolic blood pressure 136 mm[Hg] Leno Briggs MD Work Phone: [facility] 05-25-2023 11:49-0400 Diastolic blood pressure 77 mm[Hg] Samantha Nava MD Work Phone: [facility] Encounters Encounter Date Encounter Type Care Provider Facility Start: 09-19-2023 ambulatory Leno silva MD Work Phone: [facility] Procedures Date Procedure Procedure Detail Performing Clinician Start: 06-21-2023 Drug tst prsmv instr mnt chem analyzers pr date Leno Briggs MD Work Phone: Start: 05-25-2023 Colonoscopy Samantha Santillan ch, MD Work Phone: Start: 05-04-2023 Cyanocobalamin vitamin b-12 Shantal Serrano SYNCHRONIZER - [employer]TE[employer]CE [employer]ANING Work Phone: Start: 11-04-2022 INFLUENZA SEASONAL QUADRIVALENT HIGH DOSE AGE 65+ Stephani Crooks PA-C Work Phone: Start: 05-18-2022 Brncdilat rspse spmt ry pre&post-brncdilat admn Stephani Crooks PA-C Work Phone: Plan of Treatment Date Care Activity Detail Author Start: 05-25-2028 Screening for malign ant neoplasm of colon [facility] Start: 08-31-2024 3 comp foot exam completed Diabetic Foot Exam [facility] Start: 08-31-2024 Covid-19 Vaccine ( season) Covid-19 Vaccine ( season) [facility] Immunizations Immunization Date Immunization Notes Care Provider Verito paulino 08-31-2023 influenza (HD-IIV4) vaccine, age 65+ yr, high dose, quadrivalent, PF (FLUZONE HIGH-DOSE) Leno Briggs MD Work Phone: [facility] 08-31-2023 pneumococcal (PCV20) vaccine, 20 valent (PREVNAR 20) Leno Briggs MD Work Phone: [facility] 11-04-2022 influenza, high-dose , quadrivalent vaccine (FLUZONE HIGH DOSE QUADRIVALENT) Stephani Crooks PA-C Work Phone: [facility] 11-04-2022 influenza virus vacc ine, unspecified formulation Samantha Nava MD Work Phone: [facility] 09-03-2021 influenza, high-dose , quadrivalent vaccine (FLUZONE HIGH DOSE QUADRIVALENT) Leno Briggs MD Work Phone: [facility] 03-17-2021 COVID-19 vaccine, fu ll dose (MODERNA) Leno Briggs MD Work Phone: [facility] 02-17-2021 COVID-19 vaccine, fu ll dose (MODERNA) Leno Briggs MD Work Phone: [facility] 07-31-2019 influenza, high dose seasonal, preservative-free Leno Briggs MD Work Phone: [facility] 09-13-2018 influenza, high dose seasonal, preservative-free Leno Briggs MD Work Phone: [facility] 12-12-2017 pneumococcal polysaccharide vaccine, 23 valent Leno Briggs MD Work Phone: [facility] 09-27-2017 influenza, injectabl e, quadrivalent, contains preservative Leno Briggs MD Work Phone: [facility] 08-27-2016 influenza, injectabl e, quadrivalent, contains preservative Leno Briggs MD Work Phone: [facility] Work Phone: 09-15-2015 influenza, high dose seasonal, preservative-free Leno Briggs MD Work Phone: [facility] Work Phone: 09-15-2015 pneumococcal conjuga te vaccine, 13 valent Leno Briggs MD Work Phone: [facility] Work Phone: 09-20-2014 influenza, seasonal, injectable Leno Briggs MD Work Phone: [facility] Work Phone: 03-27-2014 zoster vaccine, live Leno Briggs MD Work Phone: [facility] Work Phone: 10-24-2013 influenza virus vacc ine, unspecified formulation Leno Briggs MD Work Phone: [facility] 09-06-2012 influenza virus vacc ine, unspecified formulation Leno Briggs MD Work Phone: [facility] Work Phone: 06-21-2012 pneumococcal polysaccharide vaccine, 23 valent Leno Briggs MD Work Phone: [facility] Work Phone: 04-24-2012 pneumococcal polysaccharide vaccine, 23 valent Leno Briggs MD Work Phone: [facility] Work Phone: Payers Date Payer Category Payer Medicare UHC AARP MEDICAR E UHC AARP MEDICARE HMO [id number] 2021-Present [phone] [address] [address] [place] [address] O [id number] 2021 Medicare [id number] 2021 Private Health Insurance [id number] 1940 Unknown [id number] Medicare [id number] Social History Date Type Detail Facility Start: 08-15-2012 End: 04-05-2023 Tobacco smoking status NHIS Ex-smoker [facility] End: 09-22-1997 History of tobacco use Current smoker [facility] End: 09-22-1997 History of tobacco use Cigarette Smoker [facility] Start: 08-15-2012 End: 04-05-2023 Cigarettes smoked current (pack per day) - Reported 3 [facility] Start: 08-15-2012 End: 07-05-2022 Tobacco use and exposure Smokeless tobacco non-user [facility] Start: 10-13-2021 End: 08-31-2023 Alcohol intake Current non-drinker of alcohol (finding) [facility] Start: 1940 Sex Assigned At Female [facility] Start: 03-12-2022 End: 05-30-2023 Exposure to SARS-CoV-2 (event) Not sure [facility] Work Phone: Start: 07-09-2022 End: 07-19-2022 Exposure to SARS-CoV-2 (event) Unable to assess [facility] Work Phone: Start: 04-01-2023 History SDOH Alcohol Frequency 1 [facility] Start: 04-01-2023 History SDOH Alcohol Std Drinks 0 [facility] Start: 04-01-2023 History SDOH Social Connections Phone 4 [facility] Start: 04-01-2023 History SDOH Social Connections Get Together 5 [facility] Start: 04-01-2023 History SDOH Social Connections Membership 2 [facility] Start: 04-05-2023 End: 05-30-2023 Alcohol intake Lifetime non-drinker (finding) [facility] Start: 1940 Sex Assigned At Not on file [facility] Start: 04-05-2023 End: 04-11-2023 Tobacco use panel [facility] Within the last year , have you been afraid of your partner or ex-partner? No [facility] Are you now , , , , never or living with a partner? [facility] How often to you hav e a drink containing alcohol? Never [facility] How many standard drinks containing alcohol do you have on a typical day? Patient does not drink [facility] How hard is it for y ou to pay for the very basics like food, housing, medical care, and heating Not very hard [facility] Do you feel stress - tense, restless, nervous, or anxious, or unable to sleep at night because your mind is troubled all the time - these days [OSQ] Only a little [facility] (I/We) worried wheth er (my/our) food would run out before (I/we) got money to buy more. Never true [facility] Start: 07-17-2021 Gender identity Identifies as female gender (finding) [facility] Start: 07-17-2021 Sexual orientation Heterosexual (torres parker) [facility] Medical Equipment Procedure Code Equipment Code [...] Miscellaneous Notes PA approved [phone] Daughter was notified approved not sure on cost of drug with insurance covering will need to call pharmacy to get info [place] [facility] Reviewed medication and rx was sent correctly 2 BID for 90 day supply is 360 tab, did submit a PA to see if cost can be lowered for 90 day supply [place] [facility] documented in this encounter [facility] 09-15-2023 Telephone encounter Note Left message notifying and to call back with which way they'd like to do the visit. [facility] 09-15-2023 Miscellaneous Notes Left message notifying and to call back with which way they'd like to do the visit. OK for virtual visit although we will not be able to facilitate memory testing over MyChart or phone. If they are wanting memory testing then visit will need to be in the office. Name of caller: Mariela Contact phone number: [phone] Relationship to Patient: Chandan Provider: Shantal Serrano [...] their call: Yes documented in this encounter [facility] [place] 09-15-2023 Telephone encounter Note OK for virtual visit although we will not be able to facilitate memory testing over MyChart or phone. If they are wanting memory testing then visit will need to be in the office. [facility] [place] 09-14-2023 Telephone encounter Note Name of caller: Mariela Contact phone number: [phone] Relationship to Patient: Daughter Provider: Shantal Serrano APRN, CNP Practice: [facility] Chief Complaint/Reason for Call: Mariela [...] business hours to return their call: Yes [facility] [place] 09-02-2023 Miscellaneous Notes Daughter was notified Brandy [...] stable or not. documented in this encounter [facility] 08-31-2023 Note HNO ID: [id number] Author: Leno Briggs MD Service: ? Author [...] kidney disease) stage 3, GFR 30-59 ml/min ([facility]) 01/01/2019 COPD with chronic bronchitis ([facility]) 02/15/2017 Dr. Brito Current use of proton pump inhibitor 11/25/2016 Mg checked 11/2017 DDD (degenerative disc disease), cervical 07/29/2015 DDD (degenerative disc disease), lumbar 05/08/2013 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) 06/2015 a1c 6.5% Diabetic eye exam ([facility]) 03/15/2017 Last done: 10/24/2019 No Retinopathy Essential [...] TACO (obstructive sleep apnea) [facility] f[facility] [phone] Pain due to total left knee replacement ([facility]) 06/08/2018 Personal history of colonic polyps 01/23/2016 Primary insomnia 03/16/2017 Brain [place] 06/26/2018 recommended Klonopin every other day for a week and then just as needed. Primary osteoarthritis of right knee 07/13/2016 Pulmonary nodules 03/03/2013 Incidental non-calcified nodules 10/09/2012. Repeat CT due 06/2013 Recurrent major depressive disorder, in full remission ([facility]) 08/17/2012 Rheumatoid arthritis(714.0) Spondylosis of lumbar region without myelopathy or radiculopathy 05/28/2015 Status post total left knee replacement 06/08/2018 Stress incontinence 11/21/[address] Armas. Thyroid nodule 11/15/2018 Stable on US 2017 Type 2 diabetes mellitus with stage 3 chronic kidney disease, without long-term current use of insulin ([facility]) 06/06/2017 Urge incontinence 11/21/2012 PAST SURGICAL HISTORY PAST SURGICAL HISTORY Procedure Laterality Date CHOLECYSTECTOMY HX 10/30/1997 COLONOSCOP W/ OR W/O BRS SPEC 11/29/12 Colonoscopy repeat 3 years COLONOSCOP W/ OR W/O BRS SPEC 01/28/16 Colonoscopy with mac COLONOSCOPY AND POLYPECTOMY ~2007 2 polyps COLONOSCOPY AND POLYPECTOMY ~2001 7 polyps COLONOSCOPY AND POLYPECTOMY 11/30/2011 CYSTOSCOPY 09/21/12 EGD 10/17/2011 Dr Negrete in [place] EGD W/O OR W/BRUSH/WASH 05/16/2014 EGD EGD [...] Mother Lipids Mother HIGH CHOLESTEROL Heart Father [place] Ischemic Heart Disease Father STROKE other (diabetic) [...] completed and revi (more content not included)... [facility] 08-23-2023 Miscellaneous Notes The following approved medication [...] Nel Cope LPN. documented in this encounter [facility] 08-16-2023 Telephone encounter Note Preferred contact number: [phone] Reason for Visit: Caller states she would like to cancel appointment due to transportation and would like a call to schedule. Please advise. Thank you Urgency of Appointment: na Medications in need of refill: na [facility] 08-16-2023 Miscellaneous Notes Preferred contact number: [phone] Reason for Visit: Caller states she would like to cancel appointment due to transportation and would like a call to schedule. Please advise. Thank you Urgency of Appointment: na Medications in need of refill: na documented in this encounter [facility] 07-05-2023 Telephone encounter Note Daughter wanted [...] prior to picking up the medication: N/A [facility] 07-05-2023 Miscellaneous Notes Daughter wanted to [...] the medication: N/A documented in this encounter [facility] 07-05-2023 Miscellaneous Notes Spoke with pt's daughter and information below given. Shelby Rogel LPN Left message for pt's daughter to contact office. Grecia Riley LPN Let family know the Aricept (donepezil) is prescribed by patient's hairspring vibrator and will need to contact that office [...] Nel Cope LPN documented in this encounter [facility] 06-21-2023 Note HNO ID: [id number] Author: Leno Briggs MD Service: ? Author [...] life is less. She has been taking Acra 5/325 one twice a day since 04/2018 and up till now was doing well with this. Her daughter, (Mariela) who is her with her today, notes that it no longer controls the pain for as long of a time as it used to. She requires extra strength tylenol in between doses and even then it's not as well as when she takes a Acra. Patient has not been seen for routine since 10/2022. She is now seeing a hairspring vibrator for her dementia. She was recently found [...] kidney disease) stage 3, GFR 30-59 ml/min ([facility]) 01/01/2019 COPD with chronic bronchitis ([facility]) 02/15/2017 Dr. Brito Current use of proton pump inhibitor 11/25/2016 Mg checked 11/2017 DDD (degenerative disc disease), cervical 07/29/2015 DDD (degenerative disc disease), lumbar 05/08/2013 Diabetes mellitus type 2 in obese ([facility]) 06/2015 a1c 6.5% Diabetic eye exam ([facility]) 03/15/2017 Last done: 10/24/2019 No Retinopathy Essential [...] TACO (obstructive sleep apnea) [facility] fx [phone] Pain due to total left knee replacement (HCC) 06/08/2018 Personal history of colonic polyps 01/23/2016 Primary insomnia 03/16/2017 Brain [place] 06/26/2018 recommended Klonopin every other day for a week and then just as needed. Primary osteoarthritis of right knee 07/13/2016 Pulmonary hypertension (HCC) 05/19/2022 Seeing pulm and cardio Pulmonary nodules 03/03/2013 Incidental non-calcified nodules 10/09/2012. Repeat CT due 06/2013 Recurrent major depressive disorder, in full remission ([facility]) 08/17/2012 Rheumatoid arthritis(714.0) Spondylosis of lumbar region without myelopathy or radiculopathy 05/28/2015 Status post total left knee replacement 06/08/2018 Stress incontinence 11/21/[address] Armas. Thyroid nodule 11/15/2018 Stable on 2017 Type 2 diabetes mellitus with stage 3 chronic kidney disease, without long-term current use of insulin ([facility]) 06/06/2017 Urge incontinence 11/21/2012 Previous Surgical History [...] CYSTOSCOPY 09/21/12 EGD 10/17/2011 Dr Negrete in [place] ESOPHAGOGASTRODUODENOSCOPY TRANSORAL DIAGNOSTIC 05/16/2014 EGD ESOPHAGOGASTRODUODENOSCOPY TRANSORAL DIAGNOSTIC 09/12/14 EGD ESOPHAGOGASTRODUODENOSCOPY TRANSORAL DIAGNOSTIC 01/06/2017 EGD ESOPHAGOGASTRODUODENOSCOPY TRANSORAL D (more content not included)... [facility] 06-21-2023 History of Present illness Narrative Chief [...] life is less. She has been taking Acra 5/325 one twice a day since 04/2018 and up till now was doing well with this. Her daughter, (Mariela) who is her with her today, notes that it no longer controls the pain for as long of a time as it used to. She requires extra strength tylenol in between doses and even then it's not as well as when she takes a Acra. Patient has not been seen for routine since 10/2022. She is now seeing a hairspring vibrator for her dementia. She was recently found [...] 05/08/2013 Diabetes mellitus type 2 in obese ([facility]) 06/2015 a1c 6.5% Diabetic eye exam ([facility]) 03/15/2017 Last done: 10/24/2019 No Retinopathy Essential [...] TACO (obstructive sleep apnea) [facility] f[facility] [phone] Pain due to total left knee replacement ([facility]) 06/08/2018 Personal history of colonic polyps 01/23/2016 Primary insomnia 03/16/2017 Brain center 06/26/2018 recommended Klonopin every other day for a week and then just as needed. Primary osteoarthritis of right knee 07/13/2016 Pulmonary hypertension (HCC) 05/19/2022 Seeing pulm and cardio Pulmonary nodules 03/03/2013 Incidental non-calcified nodules 10/09/2012. Repeat CT due 06/2013 Recurrent major depressive disorder, in full remission ([facility]) 08/17/2012 Rheumatoid arthritis(714.0) Spondylosis of lumbar region without myelopathy or radiculopathy 05/28/2015 Status post total left knee replacement 06/08/2018 Stress incontinence 11/21/[address] Armas. Thyroid nodule 11/15/2018 Stable on 2017 Type 2 diabetes mellitus with stage 3 chronic kidney disease, without long-term current use of insulin ([facility]) 06/06/2017 Urge incontinence 11/21/2012 Previous Surgical History [...] CYSTOSCOPY 09/21/12 EGD 10/17/2011 Dr Negrete in [place] ESOPHAGOGASTRODUODENOSCOPY TRANSORAL DIAGNOSTIC 05/16/2014 EGD ESOPHAGOGASTRODUODENOSCOPY TRANSORAL DIAGNOSTIC 09/12/14 EGD ESOPHAGOGASTRODUODENOSCOPY TRANSORAL DIAGNOSTIC 01/06/2017 EGD ESOPHAGOGASTRODUODENOSCOPY TRANSORAL DIAGNOSTIC 07/21/2020 EGD REMOVE CATARACT, INSERT LENS, INTRACAPSUL Bilateral 2008 Family History FAMILY HISTORY Problem Relation Age of Onset Hypertension Mother Heart Mother Lipids Mother HIGH CHOLESTEROL Heart Father [place] Ischemic Heart Disease Father STROKE other (diabetic) Father Diabetes Sister Diabetes Sister Breast Cancer Sister Patient Allergies ALLERGIES Allergen Reactions Bactrim [Sulfametho* Itching Codeine Mental Status Change Garlic Oil Other: See Comments Lexapro [Escitalopr* Other: See Comments rapid heart rate Oxybutynin Other: See Comments suggerst by SaludFÁCIL to stop since it can add to [...] DX E11.22 Insulin No) Walker (ULTRA-LIGHT ROLLATOR) [facility] [place] Rolator with seat. Dx: J44.9, M54.9, [...] which included preparing to see the patient, [id number] patient care, completing clinical documentation, performing a medically appropriate examination, counseling and educating the patient/family/caregiver and ordering medications, tests, or procedures. Leno Briggs MD documented in this encounter [facility] 06-20-2023 Miscellaneous Notes Left message for pt's daughter that Stephani did review pt's chart and advised that pt does need to see Dr Briggs instead of her tomorrow. Advised pt is scheduled at 2:20 tomorrow 06/[address] Briggs. Daughter had called earlier to reschedule appointment that pt had canceled. Grecia Riley LPN documented in this encounter [facility] 05-30-2023 History of Present illness Narrative COLORECTAL SURGERY OFFICE VISIT PATIENT NAME: Robbin Singh : 1940 TODAY'S DATE: 05/30/2023 Chief Complaint Patient presents with Results [facility] # [phone](Mariela, daughter)Discuss results of colonoscopy done 05/25/23 Patient [...] stated that they are currently in the [facility]. If the patient is a minor, [...] Patient has dementia and is daughter is web interface developer. She noticed feces inside her vagina. She [...] had multiple polyps. Saw a surgeon through [facility] who recommended colonoscopy, however this was cancelled [...] 05/25/2023 Performed by Samantha Nava MD at [address] ENDOSCOPY Current Outpatient Medications on File [...] Take 600 mg by mouth daily. HYDROcodone-acetaminophen (Acra) 5-325 MG tablet Take 1 tablet by [...] tablet Take 1 tablet by mouth daily. [place]-3 Fatty Acids (FISH OIL OMEGA-3 PO) Take [...] judgement RECTUM: deferred Exam chaperoned by female conservation assistant. IMAGING: Per chart rveiew She underwent a [facility] scan at [facility] on 12/31/2022 with findings of mid [...] was performed when available. Samantha Nava MD [facility] Colorectal Surgery [address] [place] [address], [facility] [address] [address] p [phone] f [phone] documented in this encounter [facility] 05-25-2023 Note Patient: Robbin niño Procedure Summary Date: 05/25/23 Room / Location: [address] ENDO SEC 1 / [facility] Gastroenterology Anesthesia Start: 1042 Anesthesia Stop: [...] once all PACU criteria has been met. [facility] 05-25-2023 Note Patient: Robbin niño Procedure Summary Date: 05/25/23 Room / Location: [facility] SEC [facility] / [facility] Gastroenterology [...] opportunity for questions and acknowledgement of understanding. [facility] 05-25-2023 Note Endoscopy Center- [facility] Patient Name: Robbin Singh Procedure Date: 05/25/2023 10:43 AM Gender: Female Date of : 1940 Age: 82 Admit Type: Outpatient Note Status: Finalized Endoscopist: Samantha Nava MD, [id number] Procedure: Colonoscopy Indications: Follow-up of diverticulitis, Colovaginal [...] immediate complications. Procedure Code(s): --- Professional --- 30420, Colonoscopy, flexible; with removal of tumor(s), polyp(s), or other lesion(s) by snare technique --- Technical --- 47653, Colonoscopy, flexible; with removal of tumor(s), polyp(s), or other lesion(s) by snare technique CPT copyright 2021 [employer]. All rights reserved. The codes documented in this report are preliminary and upon driver education instructor review may be revised to meet current compliance requirements. Attending Participation: I personally performed the entire procedure. Samantha Nava MD 05/25/2023 11:25:44 AM This report has been signed electronically. Number of Addenda: 0 Note Initiated On: 05/25/2023 10:43 AM [facility] 05-25-2023 Note Formatting of this n ote might be different from the original. [facility] Name: Robbin Singh Procedure Date: 05/25/2023 10:43 AM Gender: Female Date of : 1940 Age: 82 Admit Type: Outpatient Note Status: Finalized Endoscopist: Samantha Nava MD, [id number] Procedure: Colonoscopy Indications: Follow-up of diverticulitis, Colovaginal [...] immediate complications. Procedure Code(s): --- Professional --- 60958, Colonoscopy, flexible; with removal of tumor(s), polyp(s), or other lesion(s) by snare technique --- Technical --- 18310, Colonoscopy, flexible; with removal of tumor(s), polyp(s), or other lesion(s) by snare technique CPT copyright 2021 [employer]. All rights reserved. The codes documented in this report are preliminary and upon driver education instructor review may be revised to meet current compliance requirements. Attending Participation: I personally performed the entire procedure. Samantha Nava MD 05/25/2023 11:25:44 AM This report has been signed electronically. Number of Addenda: 0 Note Initiated On: 05/25/2023 10:43 AM [facility] 05-25-2023 Note Formatting of this n ote might be different from the original. [facility] Patient Name: Robbin Singh Procedure Date: 05/25/2023 10:43 AM Gender: Female Date of : 1940 Age: 82 Admit Type: Outpatient Note Status: Finalized Endoscopist: Samantha Nava MD, [id number] Procedure: Colonoscopy Indications: Follow-up of diverticulitis, Colovaginal [...] immediate complications. Procedure Code(s): --- Professional --- 63478, Colonoscopy, flexible; with removal of tumor(s), polyp(s), or other lesion(s) by snare technique --- Technical --- 75154, Colonoscopy, flexible; with removal of tumor(s), polyp(s), or other lesion(s) by snare technique CPT copyright 2021 [employer]. All rights reserved. The codes documented in this report are preliminary and upon driver education instructor review may be revised to meet current compliance requirements. Attending Participation: I personally performed the entire procedure. Samantha Nava MD 05/25/2023 11:25:44 AM This report has been signed electronically. Number of Addenda: 0 Note Initiated On: 05/25/2023 10:43 AM [facility] 05-25-2023 Miscellaneous Notes [facility] Patient Name: Robbin Singh Procedure Date: 05/25/2023 10:43 AM Gender: Female Date of : 1940 Age: 82 Admit Type: Outpatient Note Status: Finalized Endoscopist: Samantha Nava MD, [id number] Procedure: Colonoscopy Indications: Follow-up of diverticulitis, Colovaginal [...] immediate complications. Procedure Code(s): --- Professional --- 79017, Colonoscopy, flexible; with removal of tumor(s), polyp(s), or other lesion(s) by snare technique --- Technical --- 77432, Colonoscopy, flexible; with removal of tumor(s), polyp(s), or other lesion(s) by snare technique CPT copyright 2021 [employer]. All rights reserved. The codes documented in this report are preliminary and upon driver education instructor review may be revised to meet current compliance requirements. Attending Participation: I personally performed the entire procedure. Samantha Nava MD 05/25/2023 11:25:44 AM This report has been signed electronically. Number of Addenda: 0 Note Initiated On: 05/25/2023 10:43 AM documented in this encounter [facility] 05-25-2023 Note Endoscopy History an d [...] mg by mouth daily. Past Week HYDROcodone-acetaminophen (Acra) 5-325 MG tablet Take 1 tablet by [...] Take 1 tablet by mouth daily. 05/24/2023 Bedford-3 Fatty Acids (FISH OIL OMEGA-3 PO) Take [...] none HEMATOLOGIC/LYMPHATIC: N (more content not included)... [facility] 05-25-2023 Note Patient: Robbin niño Procedure Information Date/Time: 05/25/23 0900 Procedure: COLONOSCOPY Location: [address] ENDO SEC 1 / [facility] Gastroenterology [...] found for this or any previous visit. [facility] 05-25-2023 History and physical note Endoscopy History [...] mg by mouth daily. Past Week HYDROcodone-acetaminophen (Acra) 5-325 MG tablet Take 1 tablet by [...] Take 1 tablet by mouth daily. 05/24/2023 Bedford-3 Fatty Acids (FISH OIL OMEGA-3 PO) Take [...] understanding and willingness to proceed with plan. [employer] Phone: 05-25-2023 History and physical note Endoscopy [...] mg by mouth daily. Past Week HYDROcodone-acetaminophen (Acra) 5-325 MG tablet Take 1 tablet by [...] Take 1 tablet by mouth daily. 05/24/2023 Bedford-3 Fatty Acids (FISH OIL OMEGA-3 PO) Take [...] proceed with plan. documented in this encounter [facility] 05-17-2023 History of Present illness Narrative [...] Diet Healthy Nutrition for Older Adults - [facility] Injury Prevention/Home Safety [facility] Home Safety Checklist Hearing/Vision Hearing Loss and Older Adults Medications Medication Safety/Dispensers Sleep Getting a Good Night's Sleep ([facility]) Sleep Hygiene Day/Night Reversal Advanced Directives Healthcare Power of Mercury Recoverer Living Will Recommend Financial Power of Mercury Recoverer Elder Law Mercury Recoverer List [facility] Advanced Directives Information Guide Personal Care Personal Care Tips Bathing Tips Dressing Tips Images from the original note were not included. [facility] [address] [facility] [place] [address] Dept: [phone] Dept Loc: [phone] Visit type: [facility] Family Summary Conference Reason for Visit: Memory [...] through following means: Alzheimer's Association support and photostat operator helper Reviewed advanced care plan. Health Care Power of Mercury Recoverer, Financial Power of Mercury Recoverer, and Living Will Educational information and handouts [...] 03/2023 for memory loss x 1 year, [place] 19 (MIS 2), CDT 5, PHQ 1, [...] Take 600 mg by mouth daily. HYDROcodone-acetaminophen (Acra) 5-325 MG tablet Take 1 tablet by [...] tablet Take 1 tablet by mouth daily. Bedford-3 Fatty Acids (FISH OIL OMEGA-3 PO) Take [...] Diagnosis Date COPD (chronic obstructive pulmonary disease) ([facility]) Depression Pulmonary hypertension ([facility]) Social History Tobacco Use Smoking status: Former Packs/day: 2.00 Types: Cigarettes Quit date: 1996 Years since quittin.5 Smokeless tobacco: Not on file Substance Use Topics Alcohol use: Never Past Surgical History: Procedure Laterality Date COLONOSCOPY N/A 05/25/2023 Performed by Samantha Nava MD at [facility] [address] Family History [...] >20.0 05/04/2023 Lab Results Component Value Date [id number] 05/04/2023 No results found for: RPR [...] for the patient documented in this encounter [facility] [place] 05-17-2023 Instructions FILEMON Shepherd CNP - 05/17/2023 [...] and social activity - [facility] [employer] Sne[employer]. Recommend routines, schedules, and organization. Recommend [...] for virtual visit. documented in this encounter [facility] [place] 04-11-2023 Miscellaneous Notes TC to patients daughter with no answer. Left VM to return call to office to receive update. JUSTINE Gupta Please reach out to patient's daughter. Let her know we refilled Robbin's Acra, however, she No Showed to her appt [...] last office visit in primary care: [facility] 12/23/22 No appointment scheduled Last 2 Encounter Wt Readings: Date: Wt: 03/18/2023 127.5 kg (281 lb) 02/21/2023 129.7 kg (286 lb) Please advise. Thank you. JUSTINE Gupta documented in this encounter [facility] 04-11-2023 History of Present illness Narrative [...] Patient has dementia and is daughter is web interface developer. She noticed feces inside her vagina. She [...] Take 600 mg by mouth daily. HYDROcodone-acetaminophen (Acra) 5-325 MG tablet Take 1 tablet by [...] tablet Take 1 tablet by mouth daily. Bedford-3 Fatty Acids (FISH OIL OMEGA-3 PO) Take [...] judgement RECTUM: deferred Exam chaperoned by female conservation assistant. IMAGING: Per chart rveiew She underwent a CT scan at [facility] on 12/31/2022 with findings of mid [...] was performed when available. Samantha Nava MD [facility] Colorectal Surgery [address] [place] [id number] p [phone] f [phone] documented in this encounter [facility] 04-05-2023 Note Mrs. Singh was see [...] Return in 4-6 weeks for summary visit. [facility] 04-05-2023 History of Present illness Narrative Images from the original note were not included. [facility] [address] [place] [address] Dept: [phone] Dept Loc: [phone] Visit type: [facility] Initial Assessment Visit Date: 04/11/2023 Reason for [...] 82 y.o. female who presents to the [facility] for a comprehensive geriatric assessment. The patient is new to me. Referred for dementia, having nightmares, on Donepezil at , previously diagnosed with dementia. Family helping with pt's care. PMH: anxiety, depression, OA multiple joints, leg edema, CHF, CKD 3, COPD, DDD cervical and lumbar, DM2, HTN, HABEMATOLEL, frequent falls, interstitial cystitis, urinary incontinence, neuropathy, [...] Take 600 mg by mouth daily. HYDROcodone-acetaminophen (Acra) 5-325 MG tablet Take 1 tablet by [...] tablet Take 1 tablet by mouth daily. Bedford-3 Fatty Acids (FISH OIL OMEGA-3 PO) Take [...] Normocephalic. Comments: No glasses. No hearing aids. HABEMATOLEL at times. Right Ear: External ear normal. [...] found for: FOLATE No results found for: [id number] No results found for: RPR Testing: The following tests were performed at today's visit and scanned in to the chart: MoCA score: 19, MIS score: 2 Clock drawing score: 5 PHQ-9 score: 1 SIN score: not done I independently reviewed the [place] Cognitive Assessment from 04/11/2023. 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 Activities: nephew and great granddaughter come to visit once per week, watches tv Exercise: none Finances: close to $2000 in income Healthcare Power of Mercury Recoverer: No Financial Power of Mercury Recoverer: No Living Will: No Guardian: No Code [...] Diet Healthy Nutrition for Older Adults - [facility] Injury Prevention/Home Safety [facility] Home Safety Checklist Hearing/Vision Hearing Loss and Older Adults Medications Medication Safety/Dispensers Sleep Getting a Good Night's Sleep ([facility]) Sleep Hygiene Day/Night Reversal Advanced Directives Healthcare Power of Mercury Recoverer Living Will Recommend Financial Power of Mercury Recoverer Elder Law Mercury Recoverer List [facility] Advanced Directives Information Guide Personal Care Personal Care Tips Bathing Tips Dressing Tips documented in this encounter [facility] 04-05-2023 Instructions Shantal Serrano APRN - [...] for summary visit. documented in this encounter [facility] 04-01-2023 Note HNO ID: [id number] Author: Leno Briggs MD Service: ? Author Type: Physician Type: Progress Notes Filed: 04/04/2023 1:02 PM Note Text: Appt cancelled since patient actually needed seen in office for a routine. [facility] 04-01-2023 History of Present illness Narrative Appt cancelled since patient actually needed seen in office for a routine. documented in this encounter [facility] 03-16-2023 Miscellaneous Notes Patient phones requesting refills as follows: Requested Prescriptions Pending Prescriptions Disp Refills metFORMIN ER (GLUCOPHAGE XR) 500 mg 24 hr tablet 180 tablet 1 Sig: Take 2 tablets by mouth daily with dinner. TAVO 12/23/2022 NOV 04/01/2023 Please review and advise. Atiya Deluna LPN documented in this encounter [facility] 03-11-2023 Miscellaneous Notes Faxed. Antionette Coleman MA Order printed and signed and ready to fax Ok to refer? Cristina Garcia Ma documented in this encounter [facility] 03-09-2023 Miscellaneous Notes The following approved [...] Shelby Rogel LPN documented in this encounter [facility] 03-09-2023 Miscellaneous Notes The following approved [...] would help her sleep. Contact patient at [phone]. Joanne Rogel Pss documented in this encounter [facility] 02-21-2023 Note HNO ID: [id number] Author: Radha Baldwin APRN.HELPER MAINTENANCE CLEAN[employer] Service: ? Author Type: Nurse Practitioner Type: Progress Notes Filed: 02/22/2023 12:47 PM Note Text: [facility] ([facility]) [address] [facility] [id number] OUTPATIENT VISIT February 21, 2023 2:00 PM [...] kidney disease) stage 3, GFR 30-59 ml/min ([facility]) 01/01/2019 COPD with chronic bronchitis ([facility]) 02/15/2017 Dr. Brito Current use of proton pump inhibitor 11/25/2016 Mg checked 11/2017 DDD (degenerative disc disease), cervical 07/29/2015 DDD (degenerative disc disease), lumbar 05/08/2013 Diabetes mellitus type 2 in obese ([facility]) 06/2015 a1c 6.5% Diabetic eye exam ([facility]) 03/15/2017 Last done: 10/24/2019 No Retinopathy Essential [...] TACO (obstructive sleep apnea) [facility] f[facility] [phone] Pain due to total left knee replacement [...] Recurrent major depressive disorder, in full remission ([facility]) 08/17/2012 Rheumatoid arthritis(714.0) Spondylosis of lumbar region without myelopathy or radiculopathy 05/28/2015 Status post total left knee replacement 06/08/2018 Stress incontinence 11/21/[address] Armas. Thyroid nodule 11/15/2018 Stable on 2017 Type 2 diabetes mellitus with stage 3 chronic kidney disease, without long-term current use of insulin ([facility]) 06/06/2017 Urge incontinence 11/21/2012 PAST SURGICAL HISTORY [...] CYSTOSCOPY 09/21/12 EGD 10/17/2011 Dr Negrete in [place] ESOPHAGOGASTRODUODENOSCOPY TRANSORAL DIAGNOS (more content not included)... [facility] 02-18-2023 Instructions Lauren Gruber RN - 02/18/2023 [...] If you do not have a responsible xm1 tank driver (family member or friend) with you [...] exam. 2 10/2019 documented in this encounter [facility] 02-14-2023 Miscellaneous Notes Patient has been [...] to [facility] documented in this encounter [facility] 02-14-2023 Miscellaneous Notes The following approved [...] Last refill; 01/2023 documented in this encounter [facility] 02-11-2023 Miscellaneous Notes This patient gave [...] seven days of my reply. See the Mezzobit message reply for my assessment and plan. I spent a total of 5 minutes reviewing the patient's prior medical records and current request for medical advice, prescribing medications or ordering tests (if applicable), replying to the patient, and documenting the encounter. Eufemia Chapa APRN.CARINE documented in this encounter [facility] 02-10-2023 Miscellaneous Notes TAVO 12/23/22 with RR Appointment scheduled 03/11/23 with JAX Please advise. Thank you. MODESTO Gupta documented in this encounter [facility] 02-09-2023 History and physical note COLORECTAL SURGERY NEW VIRTUAL VISIT I have communicated my name and active licensure. The patient's identity and physical location were verified at the time of this visit. Either the patient or their legal member services representative has been informed of the risks [...] Patient has dementia and is daughter is web interface developer. She noticed feces inside her vagina. She [...] thinks this is mostly incontinence of urine. 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 Brito Current use of proton pump inhibitor 11/25/2016 Mg checked 11/2017 DDD (degenerative disc disease), cervical 07/29/2015 DDD (degenerative disc disease), lumbar 05/08/2013 Diabetes mellitus type 2 in obese ([facility]) 06/2015 a1c 6.5% Diabetic eye exam ([facility]) 03/15/2017 Last done: 10/24/2019 No Retinopathy Essential [...] TACO (obstructive sleep apnea) [facility] [phone] Pain due to total left knee replacement [...] disease, without long-term current use of insulin ([facility]) 06/06/2017 Urge incontinence 11/21/2012 PAST SURGICAL HISTORY [...] CYSTOSCOPY 09/21/12 EGD 10/17/2011 Dr Negrete in [place] ESOPHAGOGASTRODUODENOSCOPY TRANSORAL DIAGNOSTIC 05/16/2014 EGD ESOPHAGOGASTRODUODENOSCOPY TRANSORAL [...] No) 1 Kit 0 Walker (ULTRA-LIGHT ROLLATOR) [facility] Rolator with seat. Dx: J44.9, M54.9, [...] No history of dysuria, frequency or incontinence SWEETBREAD TRIMMER: stool per vagina per HPI MUSCULOSKELETAL: Negative [...] which included preparing to see the patient, [id number] patient care, completing clinical documentation, obtaining and/or reviewing separately obtained history, performing a medically appropriate examination, counseling and educating the patient/family/caregiver, ordering medications, tests, or procedures, communicating with other HCPs (not separately reported), independently interpreting results (not separately reported), communicating results to the patient/family/caregiver, and care coordination (not separately reported). documented in this encounter [facility] 02-03-2023 Miscellaneous Notes Patient phones requesting refills as follows: Patient comment: Is it possible to have this sent to [facility] in [place], for maybe a2-week supply, and the normal 90-day refill to [facility]? I thought this was on auto-delivery through them but they haven't sent it Requested Prescriptions Pending Prescriptions Disp Refills losartan (COZAAR) 50 mg tablet 90 tablet 1 Sig: Take 1 tablet by mouth once daily. TAVO-12/23/22 Labs-11/04/22 NOV-03/11/23 Med filled 06/14/22 Please review and advise. Brianne Chiang LPN documented in this encounter [facility] 01-31-2023 Miscellaneous Notes [facility] sent by PCP on 01/30 Charity Das APRN.[employer]PER MAINTENANCE CLEANING documented in this encounter [facility] 01-28-2023 Miscellaneous Notes This patient gave [...] seven days of my reply. See the Mezzobit message reply for my assessment and plan. I spent a total of 5 minutes reviewing the patient's prior medical records and current request for medical advice, prescribing medications or ordering tests (if applicable), replying to the patient, and documenting the encounter. Eufemia Chapa APRN.CARINE documented in this encounter [facility] 01-26-2023 Miscellaneous Notes Please see TEL ENC for today regarding RN's call to pt to schedule nurse visit for urine specimen collection. Jason Mcfadden RN Discussed with Eufemia Chapa DNP. Recommend nurse visit for straight cath urine specimen. Patient has colovesical fistula and clean catch is not recommended. Eloisa Ferrara APRN.CNP documented in this encounter [facility] 01-26-2023 Miscellaneous Notes RN's call to pt to schedule office visit for urine specimen collection went to [facility]. RN left message requesting return call from pt to schedule nurse visit. Call terminated. documented in this encounter [facility] 01-25-2023 Note HNO ID: [id number] Author: Leesa Ramirez MD Service: ? Author Type: Physician Type: Progress Notes Filed: 01/25/2023 3:26 PM Note Text: Robbin Torres [place] 1940 REFERRING PHYSICIAN: Eufemia Chapa APRN.CNP CHIEF COMPLAINT: Consult (Colovesical fistula) HPI: The patient is a 82 year old female presents with colovesical fistula. She has noted symptoms for about two months. She underwent a CT scan at [facility] on 12/31/2022 with findings of mid sigmoid diverticulitis with probable fistula to the adjacent urinary bladder. Associated colonic wall thickening and adjacent stranding noted. There is under distension of the urinary bladder with significant wall edema and adjacent inflammatory change. Patient had been scheduled for an appointment at [facility] in [place], but the family deferred this and preferred to be seen in [place]. The patient had also been scheduled for an appointment at [facility], but deferred this. The patient [...] kidney disease) stage 3, GFR 30-59 ml/min ([facility]) 01/01/2019 COPD with chronic bronchitis ([facility]) 02/15/2017 Dr. Brito Current use of proton pump inhibitor 11/25/2016 Mg checked 11/2017 DDD (degenerative disc disease), cervical 07/29/2015 DDD (degenerative disc disease), lumbar 05/08/2013 Diabetes mellitus type 2 in obese ([facility]) 06/2015 a1c 6.5% Diabetic eye exam ([facility]) 03/15/2017 Last done: 10/24/2019 No Retinopathy Essential [...] TACO (obstructive sleep apnea) [facility] f[facility] [phone] Pain due to total left knee replacement [...] Recurrent major depressive disorder, in full remission ([facility]) 08/17/2012 Rheumatoid arthritis(714.0) Spondylosis of lumbar region without myelopathy or radiculopathy 05/28/2015 Status post total left knee replacement 06/08/2018 Stress incontinence 11/21/[address] Armas. Thyroid nodule 11/15/2018 Stable on 2017 Type 2 diabetes mellitus with stage 3 chronic kidney disease, without long-term current use of insulin ([facility]) 06/06/2017 Urge incontinence 11/21/2012 PAST SURGICAL HISTORY [...] CYSTOSCOPY 09/21/12 EGD 10/17/2011 Dr Negrete in [place] ESOPHAGOGASTRODUODENOSCOPY TRANSORAL DIAGNOSTIC 05/16/2014 EGD ESOPHAGOGASTRODUODENOSCOPY TRANSORAL [...] mononitrate ER ( (more content not included)... [facility] 01-25-2023 History of Present illness Narrative Robbin Singh 1940 REFERRING PHYSICIAN: Eufemia Chapa APRN.HELPER MAINTENANCE CLEANING CHIEF COMPLAINT: Consult (Colovesical fistula) HPI: The patient is a 82 year old female presents with colovesical fistula. She has noted symptoms for about two months. She underwent a CT scan at [facility] on 12/31/2022 with findings of mid sigmoid diverticulitis with probable fistula to the adjacent urinary bladder. Associated colonic wall thickening and adjacent stranding noted. There is under distension of the urinary bladder with significant wall edema and adjacent inflammatory change. Patient had been scheduled for an appointment at [facility] in [place], but the family deferred this and preferred to be seen in [place]. The patient had also been scheduled for an appointment at [facility], but deferred this. The patient [...] kidney disease) stage 3, GFR 30-59 ml/min ([facility]) 01/01/2019 COPD with chronic bronchitis ([facility]) 02/15/2017 Dr. Brito Current use of proton pump inhibitor 11/25/2016 Mg checked 11/2017 DDD (degenerative disc disease), cervical 07/29/2015 DDD (degenerative disc disease), lumbar 05/08/2013 Diabetes mellitus type 2 in obese ([facility]) 06/2015 a1c 6.5% Diabetic eye exam ([facility]) 03/15/2017 Last done: 10/24/2019 No Retinopathy Essential [...] TACO (obstructive sleep apnea) [facility] [phone] Pain due to total left knee replacement (HCC) 06/08/2018 Personal history of colonic polyps 01/23/2016 Primary insomnia 03/16/2017 Brain center 06/26/2018 recommended Klonopin every other day for a week and then just as needed. Primary osteoarthritis of right knee 07/13/2016 Pulmonary hypertension ([facility]) 05/19/2022 Seeing pulm and cardio Pulmonary nodules 03/03/2013 Incidental non-calcified nodules 10/09/2012. Repeat CT due 06/2013 Recurrent major depressive disorder, in full remission ([facility]) 08/17/2012 Rheumatoid arthritis(714.0) Spondylosis of lumbar region [...] CYSTOSCOPY 09/21/12 EGD 10/17/2011 Dr Negrete in [place] ESOPHAGOGASTRODUODENOSCOPY TRANSORAL DIAGNOSTIC 05/16/2014 EGD ESOPHAGOGASTRODUODENOSCOPY TRANSORAL [...] DX E11.22 Insulin No) Walker (ULTRA-LIGHT ROLLATOR[place] [facility] [place] with [place]. Dx: J44.9, M54.9, [...] Mother Lipids Mother HIGH CHOLESTEROL Heart Father [place] Ischemic Heart Disease Father STROKE other (diabetic) Father Diabetes Sister Diabetes Sister Breast Cancer Sister The review of systems data was entered by the nurse and reviewed by in Nursing Notes: Beata Doshi RN 01/25/2023 1:26 [...] Leesa Ramirez MD documented in this encounter [facility] 01-25-2023 Nurse Note REVIEW OF SYSTEMS: [...] Beata Doshi RN documented in this encounter [facility] 01-19-2023 Miscellaneous Notes Patient has been [...] Shelby Rogel LPN documented in this encounter [facility] 01-18-2023 Miscellaneous Notes Unfortunately, she has to see colorectal. I know she was given a name for a colorectal surgeon in [place] so she can call that office to see if Robbin can be seen sooner there. If she has more questions, I can call her. Eufemia Chapa APRN.HELPER MAINTENANCE CLEANING Daughter Mariela calling to see if waiting till 03/09/23 to see Colorectal at is okay. Pt having increased pain in the vagina area due to skin is raw and now getting blood when she wipes. When urinating getting increased pain. Pt is cleaning the area after going but the Aquaphor is not working. Please advise daughter. Shelby Rogel LPN documented in this encounter [facility] 01-14-2023 Miscellaneous Notes Patient has been [...] 03/2023 Last refill: documented in this encounter [facility] 01-06-2023 Miscellaneous Notes Et patient or daughter know pain med refill sent to [facility] Briggs here is her Mychart note. Patient Comment: This was supposed to be back-ordered from [facility] because they were out of stock, so she got them from [employer], but it's time for another refill so [...] Shelby Rogel LPN documented in this encounter [facility] 01-06-2023 Note HNO ID: [id number] Author: Efuemia Chapa APRN.HELPER MAINTENANCE CLEANING Service: ? Author Type: Nurse Practitioner Type: [...] was treated. Recently diagnosed with diverticulitis at [facility] ER visit 12/31/22. 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 History: SWEETBREAD TRIMMER HISTORY: Last Pap: Date:2012; Last Mammogram: Her [...] CYSTOSCOPY 09/21/12 EGD 10/17/2011 Dr Negrete in [place] ESOPHAGOGASTRODUODENOSCOPY TRANSORAL DIAGNOSTIC 05/16/2014 EGD ESOPHAGOGASTRODUODENOSCOPY TRANSORAL DIAGNOSTIC 09/12/14 EGD ESOPHAGOGASTRODUODENOSCOPY TRANSORAL DIAGNOSTIC 01/06/2017 EGD ESOPHAGOGASTRODUODENOSCOPY TRANSORAL DIAGNOSTIC 07/21/2020 EGD REMOVE CATARACT, INSERT LENS, INTRACAPSUL Bilateral 2008 PAST MEDICAL HISTORY Diagnosis Date Anxiety and depression 01/01/2019 Arthritis of shoulder region, degenerative right Corticosteroid 09/20/14, left corticosteroid 10/07/14 Arthritis, multiple joint involvement 01/16/2018 Advised tylenol Arthritis (more content not included)... [facility] 01-06-2023 Instructions Eufemia Chapa APRN.HELPER MAINTENANCE CLEANING - 01/06/2023 2:02 PM EST Consult colorectal [...] and protect the skin. Avoid using a chair inspector and leveler to dry the vulvar area. Use cool gel packs on the vulva. documented in this encounter [facility] 01-06-2023 History of Present illness Narrative [...] was treated. Recently diagnosed with diverticulitis at [facility] ER visit 12/31/22. 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 Brito Current use of proton pump inhibitor 11/25/2016 Mg checked 11/2017 DDD (degenerative disc disease), cervical 07/29/2015 DDD (degenerative disc disease), lumbar 05/08/2013 Diabetes mellitus type 2 in obese ([facility]) 06/2015 a1c 6.5% Diabetic eye exam ([facility]) 03/15/2017 Last done: 10/24/2019 No Retinopathy Essential [...] TACO (obstructive sleep apnea) [facility]ME [facility] fx [phone] Pain due to total left knee replacement (HCC) 06/08/2018 Personal history of colonic polyps 01/23/2016 Primary insomnia 03/16/2017 Brain [place] 06/26/2018 recommended Klonopin every other day for a week and then just as needed. Primary osteoarthritis of right knee 07/13/2016 Pulmonary hypertension (HCC) 05/19/2022 Seeing pulm and cardio Pulmonary nodules 03/03/2013 Incidental non-calcified nodules 10/09/2012. Repeat CT due 06/2013 Recurrent major depressive disorder, in full remission ([facility]) 08/17/2012 Rheumatoid arthritis(714.0) Spondylosis of lumbar region without myelopathy or radiculopathy 05/28/2015 Status post total left knee replacement 06/08/2018 Stress incontinence 11/21/[address] Armas. Thyroid nodule 11/15/2018 Stable on US 2017 Type 2 diabetes mellitus with stage 3 chronic kidney disease, without long-term current use of insulin ([facility]) 06/06/2017 Urge incontinence 11/21/2012 FAMILY HISTORY Problem Relation Age of Onset Hypertension Mother Heart Mother Lipids Mother HIGH CHOLESTEROL Heart Father [place] Ischemic Heart Disease Father STROKE other (diabetic) [...] DX E11.22 Insulin No) Walker (ULTRA-LIGHT ROLLATOR) [facility] [place] with [place]. Dx: J44.9, M54.9, [...] rate Oxybutynin Other: See Comments suggerst by SaludFÁCIL to stop since it can add to [...] and ROS obtained by others. Eufemia Chapa APRN.HELPER MAINTENANCE CLEANING [employer] offered: Patient accepts, visit chaperoned by Ovidio [...] Colovesical fistula - Per discharge instructions from [facility], a consult has been placed with [...] Eufemia Chapa APRN.CARINE documented in this encounter [facility] 01-01-2023 Note . MICRO - Microbiology [...] Locations *1: This test was performed at: [facility], [address] [place] [address], [id number] , Formerly [facility], [facility] ([place]) 12-29-2022 Miscellaneous Notes Patient's daughter notified. Sun Thompson RN Patient is positive for yeast. She has dementia and sister is web interface developer. Please notify sister of positive results. Diflucan 150 mg PO x 2 doses called in to local pharmacy. She will need to take one dose this week and another dose in 1 week. Madalyn Degroot APRN.CNM documented in this encounter [facility] 12-28-2022 Note HNO ID: [id number] Author: Madalyn Degroot APRN.CNM Service: ? Author Type: Drawing In Machine Tender Helper Type: Progress Notes Filed: 12/28/2022 11:13 AM Note Text: Robbin Singh is a 82 year old female who presents with daughter and sister for problem visit of vaginal burning. Patient referred by PCP due to having vaginal pain and burning sensation. She thought she had a urinary tract infection but urine culture returned negative. Patient has dementia and is daughter is web interface developer. Last week patient became concerned because she noticed feces inside her vagina. She notices stool on toilet paper after wiping. Patient's sister concerned she may have anal fissures/fistula. She has a history of mixed incontinence and wears Depends. Denies any vaginal discharge, odor or itching. 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 Primary osteoarthritis of right knee 07/13/2016 Pulmonary hypertension ([facility]) 05/19/2022 Seeing pulm and cardio Pulmonary nodules 03/03/2013 Incidental non-calcified nodules 10/09/2012. Repeat CT due 06/2013 Recurrent major depressive disorder, in full remission ([facility]) 08/17/2012 Rheumatoid arthritis(714.0) Spondylosis of lumbar region without myelopathy or radiculopathy 05/28/2015 Status post total left knee replacement 06/08/2018 Stress incontinence 11/21/[address] Armas. Thyroid nodule 11/15/2018 Stable on 2017 Type 2 diabetes mellitus with stage 3 chronic kidney disease, without long-term current use of insulin ([facility]) 06/06/2017 Urge incontinence 11/21/2012 PAST SURGICAL HISTORY [...] CYSTOSCOPY 09/21/12 EGD 10/17/2011 Dr Negrete in [place] ESOPHAGOGASTRODUODENOSCOPY TRANSORAL DIAGNOSTIC 05/16/2014 EGD ESOPHAGOGASTRODUODENOSCOPY TRANSORAL DIAGNOSTIC 09/12/14 EGD ESOPHAGOGASTRODUODENOSCOPY TRANSORAL DIAGNOSTIC 01/06/2017 EGD ESOPHAGOGASTRODUODENOSCOPY TRANSORAL DIAGNOSTIC 07/21/2020 EGD REMOVE CATARACT, INSERT LENS, INTRACAPSUL Bilateral 2008 FAMILY HISTORY Problem Relation Age of Onset Hypertension Mother Heart Mother Lipids Mother HIGH CHOLESTEROL Heart Father [place] Ischemic Heart Disease Father STROKE other (diabetic) Father Diabetes Sister Diabetes Sister Breast Cancer Sister Social History Tobacco Use Smoking status: Former Packs/day: 3.0 (more content not included)... [facility] 12-27-2022 Miscellaneous Notes Urine culture was negative. See [employer] message. documented in this encounter [facility] 12-24-2022 Miscellaneous Notes Spoke to pt's [...] the culture results. documented in this encounter [facility] 12-23-2022 Note HNO ID: [id number] Author: Stephani Crooks PA-C Service: ? Author Type: Physician Attendant Sales Type: Progress Notes Filed: 12/23/2022 2:24 PM [...] kidney disease) stage 3, GFR 30-59 ml/min ([facility]) 01/01/2019 COPD with chronic bronchitis ([facility]) 02/15/2017 Dr. Brito Current use of proton pump inhibitor 11/25/2016 Mg checked 11/2017 DDD (degenerative disc disease), cervical 07/29/2015 DDD (degenerative disc disease), lumbar 05/08/2013 Diabetes mellitus type 2 in obese ([facility]) 06/2015 a1c 6.5% Diabetic eye exam ([facility]) 03/15/2017 Last done: 10/24/2019 No Retinopathy Essential [...] TACO (obstructive sleep apnea) DME [facility] fx [phone] Pain due to total left knee replacement ([facility]) 06/08/2018 Personal history of colonic polyps 01/23/2016 Primary insomnia 03/16/2017 [facility] 06/26/2018 recommended Klonopin every other day for a week and then just as needed. Primary osteoarthritis of right knee 07/13/2016 Pulmonary hypertension (HCC) 05/19/2022 Seeing pulm and cardio Pulmonary nodules 03/03/2013 Incidental non-calcified nodules 10/09/2012. Repeat CT due 06/2013 Recurrent major depressive disorder, in full remission ([facility]) 08/17/2012 Rheumatoid arthritis(714.0) Spondylosis of lumbar region without myelopathy or radiculopathy 05/28/2015 Status post total left knee replacement 06/08/2018 Stress incontinence 11/21/[address] Armas. Thyroid nodule 11/15/2018 Stable on US 2017 Type 2 diabetes mellitus with stage 3 chronic kidney disease, without long-term current use of insulin ([facility]) 06/06/2017 Urge incontinence 11/21/2012 Previous Surgical History [...] CYSTOSCOPY 09/21/12 EGD 10/17/2011 Dr Negrete in [place] ESOPHAGOGASTRODUODENOSCOPY TRANSORAL DIAGNOSTIC 05/16/2014 EGD ESOPHAGOGASTRODUODENOSCOPY TRANSORAL DIAGNOSTIC 09/12/14 EGD ESOPHAGOGASTRODUODENOSCOPY TRANSORAL DIAGNOSTIC 01/06/2017 EGD ESOPHAGOGASTRODUODENOSCOPY TRANSORAL DIAGNOSTIC 07/21/2020 EGD REMOVE CATARACT, INSERT LENS, INTRACAPSUL Bilateral 2008 Family History FAMILY HISTORY Pr (more content not included)... [facility] 12-23-2022 History of Present illness Narrative Chief [...] kidney disease) stage 3, GFR 30-59 ml/min ([facility]) 01/01/2019 COPD with chronic bronchitis ([facility]) 02/15/2017 Dr. Brito Current use of proton pump inhibitor 11/25/2016 Mg checked 11/2017 DDD (degenerative disc disease), cervical 07/29/2015 DDD (degenerative disc disease), lumbar 05/08/2013 Diabetes mellitus type 2 in obese ([facility]) 06/2015 a1c 6.5% Diabetic eye exam ([facility]) 03/15/2017 Last done: 10/24/2019 No Retinopathy Essential [...] TACO (obstructive sleep apnea) DME [employer] fx [phone] Pain due to total left knee replacement [...] Recurrent major depressive disorder, in full remission ([facility]) 08/17/2012 Rheumatoid arthritis(714.0) Spondylosis of lumbar region without myelopathy or radiculopathy 05/28/2015 Status post total left knee replacement 06/08/2018 Stress incontinence 11/21/[address] Armas. Thyroid nodule 11/15/2018 Stable on US 2017 Type 2 diabetes mellitus with stage 3 chronic kidney disease, without long-term current use of insulin ([facility]) 06/06/2017 Urge incontinence 11/21/2012 Previous Surgical History [...] CYSTOSCOPY 09/21/12 EGD 10/17/2011 Dr Negrete in [place] ESOPHAGOGASTRODUODENOSCOPY TRANSORAL DIAGNOSTIC 05/16/2014 EGD ESOPHAGOGASTRODUODENOSCOPY TRANSORAL DIAGNOSTIC 09/12/14 EGD ESOPHAGOGASTRODUODENOSCOPY TRANSORAL DIAGNOSTIC 01/06/2017 EGD ESOPHAGOGASTRODUODENOSCOPY TRANSORAL DIAGNOSTIC 07/21/2020 EGD REMOVE CATARACT, INSERT LENS, INTRACAPSUL Bilateral 2008 Family History FAMILY HISTORY Problem Relation Age of Onset Hypertension Mother Heart Mother Lipids Mother HIGH CHOLESTEROL Heart Father [place] Ischemic Heart Disease Father STROKE other (diabetic) Father Diabetes Sister Diabetes Sister Breast Cancer Sister Patient Allergies ALLERGIES Allergen Reactions Bactrim [Sulfametho* Itching Codeine Mental Status Change Garlic Oil Other: See Comments Lexapro [Escitalopr* Other: See Comments rapid heart rate Oxybutynin Other: See Comments suggerst by SaludFÁCIL to stop since it can add to [...] of breath (With Spacer). Walker (ULTRA-LIGHT ROLLATOR) [facility] [place] with [place]. Dx: J44.9, M54.9, [...] patient's family that they can go to [facility] and request virtual visit. - CONSULT TO GERIATRICS 2. Dysuria - ICD9: 788.1, ICD10: R30.0 acute Patient to get UA and Culture completed. - URINALYSIS, WITH MICROSCOPIC - URINE CULTURE - CONSULT TO GERIATRICS 3. Dementia with mood disturbance, unspecified dementia severity, unspecified dementia type - ICD9: 294.21, ICD10: F03.93 See #1. Stephani Crooks PA-C documented in this encounter [facility] 12-16-2022 Miscellaneous Notes Daughter Mariela notified [...] Shelby Rogel LPN documented in this encounter [facility] 12-13-2022 Miscellaneous Notes Last office visit: 11/04/22 F/u scheduled: 03/11/23 Cristina Garcia Ma documented in this encounter [facility] 12-07-2022 Miscellaneous Notes The following approved [...] daily. TAVO: 11/04/22 NOV: 03/11/23 Last Refill: [facility]: 11/09/22 #60 0 refills [facility]: 11/19/22 #90 5 refills.Not due for refill yet Huong Payan LPN documented in this encounter [facility] 12-02-2022 Miscellaneous Notes The following approved medication requests have been transmitted electronically. Requested Prescriptions Signed Prescriptions Disp Refills furosemide (LASIX) 20 mg tablet 180 tablet 1 Sig: Take 1 tablet by mouth twice daily. Authorizing Provider: STEPHANI CROOKS PA-C Patient phones requesting refills as follows: Pt needs the [facility]. See below Requested Prescriptions Pending Prescriptions Disp Refills furosemide (LASIX) 20 mg tablet 180 tablet 1 Sig: Take 1 tablet by mouth twice daily. Please review and advise. Brianne Chiang LPN I'm not sure what they need? Does she need a new short term prescription to be sent or the mail order refilled. Stephani Crooks PA-C Please see [employer] message documented in this encounter [facility] 11-19-2022 Miscellaneous Notes Patient has been [...] Last refill: 08/2022 documented in this encounter [facility] 11-19-2022 Miscellaneous Notes Patient has been [...] go [facility] documented in this encounter [facility] 11-16-2022 Miscellaneous Notes Patient has been identified by name and date of : Yes, Patient phones for refill(s): Requested Prescriptions Pending Prescriptions Disp Refills donepezil (ARICEPT) 10 mg tablet 30 tablet 5 Sig: Take 1 tablet by mouth daily at bedtime. Date of last office visit in primary care: 11/04/22 Please advise. Thank you. Nel Cope LPN documented in this encounter [facility] documented [facility] Miscellaneous Notes* Telephone Encounter - Stephani [...] you. Nel Cope LPN [facility] Miscellaneous Notes* Telephone Encounter - Nel [...] you. Nel Cope LPN [facility] Miscellaneous Notes* Telephone Encounter - Michelle [...] dehydration. Stephani Crooks PA-C [facility]22 NoteHNO ID: [id number] Author: Stephani Crooks PA-C Service: ? Author Type: Physician Attendant Sales Type: Progress Notes Filed: 11/04/2022 1:40 PM [...] ml/min (HCC) 01/01/2019 COPD with chronic bronchitis ([facility]) 02/15/2017 Dr. Brito Current use of proton pump inhibitor 11/25/2016 Mg checked 11/2017 DDD (degenerative disc disease), cervical 07/29/2015 DDD (degenerative disc disease), lumbar 05/08/2013 Diabetes mellitus type 2 in obese ([facility]) 06/2015 a1c 6.5% Diabetic eye exam ([facility]) 03/15/2017 Last done: 10/24/2019 No Retinopathy Essential [...] TACO (obstructive sleep apnea) D[facility] [employer] fx [phone] Pain due to total left knee replacement ([facility]) 06/08/2018 Personal history of colonic polyps 01/23/2016 Primary insomnia 03/16/2017 [facility] 06/26/2018 recommended Klonopin every other day for a week and then just as needed. Primary osteoarthritis of right knee 07/13/2016 Pulmonary hypertension ([facility]) 05/19/2022 Seeing pulm and cardio Pulmonary nodules 03/03/2013 Incidental non-calcified nodules 10/09/2012. Repeat CT due 06/2013 Recurrent major depressive disorder, in full remission ([facility]) 08/17/2012 Rheumatoid arthritis(714.0) Spondylosis of lumbar region [...] CYSTOSCOPY 09/21/12 EGD 10/17/2011 Dr Negrete in [place] ESOPHAGOGASTRODUODENOSCOPY TRANSORAL DIAGNOSTIC 05/16/2014 EGD ESOPHAGOGASTRODUODENOSCOPY TRANSORAL DIAGNOSTIC 09/12/14 EGD ESOPHAGOGASTRODUODENOSCOPY TRANSORAL DIAGNOSTIC 01/06/2017 EGD ESOPHAGOGASTRODUODENOSCOPY TRANSORAL DIAGNOSTIC 07/21/2020 EGD REMOVE CATARACT, INSERT LENS, INTRACAPSUL Bilateral 2008 Family History FAMILY HISTORY Problem Relation Age of Onset Hypertension Mother Heart Mother Lipids Mother HIGH CHOL (more content not included)...[facility]12-29-2022 Instructions* Patient Instructions* Stephani Crooks PA-C - 11/04/2022 1:21 PM EST Stop prozac- restart zoloft. Decrease metformin to 1000mg at night. See if this helps with the nausea. Start actos for help on Diabetes management since we are decreasing metformin. Labs today. [facility] History of Present illness Narrative* Stephani [...] kidney disease) stage 3, GFR 30-59 ml/min ([facility]) 01/01/2019 COPD with chronic bronchitis ([facility]) 02/15/2017 Dr. Brito Current use of proton pump inhibitor 11/25/2016 Mg checked 11/2017 DDD (degenerative disc disease), cervical 07/29/2015 DDD (degenerative disc disease), lumbar 05/08/2013 Diabetes mellitus type 2 in obese ([facility]) 06/2015 a1c 6.5% Diabetic eye exam ([facility]) 03/15/2017 Last done: 10/24/2019 No Retinopathy Essential [...] TACO (obstructive sleep apnea) D[facility] fx [phone] Pain due to total left knee replacement (HCC) 06/08/2018 Personal history of colonic polyps 01/23/2016 Primary insomnia 03/16/2017 [facility] 06/26/2018 recommended Klonopin every other day for a week and then just as needed. Primary osteoarthritis of right knee 07/13/2016 Pulmonary hypertension ([facility]) 05/19/2022 Seeing pulm and cardio Pulmonary nodules 03/03/2013 Incidental non-calcified nodules 10/09/2012. Repeat CT due 06/2013 Recurrent major depressive disorder, in full remission ([facility]) 08/17/2012 Rheumatoid arthritis(714.0) Spondylosis of lumbar region without myelopathy or radiculopathy 05/28/2015 Status post total left knee replacement 06/08/2018 Stress incontinence 11/21/[address] Armas. Thyroid nodule 11/15/2018 Stable on 2017 Type 2 diabetes mellitus with stage 3 chronic kidney disease, without long-term current use of insulin ([facility]) 06/06/2017 Urge incontinence 11/21/2012 Previous Surgical History [...] CYSTOSCOPY 09/21/12 EGD 10/17/2011 Dr Negrete in [place] ESOPHAGOGASTRODUODENOSCOPY TRANSORAL DIAGNOSTIC 05/16/2014 EGD ESOPHAGOGASTRODUODENOSCOPY TRANSORAL DIAGNOSTIC 09/12/14 EGD ESOPHAGOGASTRODUODENOSCOPY TRANSORAL DIAGNOSTIC 01/06/2017 EGD ESOPHAGOGASTRODUODENOSCOPY TRANSORAL DIAGNOSTIC 07/21/2020 EGD REMOVE CATARACT, INSERT LENS, INTRACAPSUL Bilateral 2008 Family History FAMILY HISTORY Problem Relation Age of Onset Hypertension Mother Heart Mother Lipids Mother HIGH CHOLESTEROL Heart Father [place] Ischemic Heart Disease Father STROKE other (diabetic) Father Diabetes Sister Diabetes Sister Breast Cancer Sister Patient Allergies ALLERGIES Allergen Reactions Bactrim [Sulfametho* Itching Codeine Mental Status Change Garlic Oil Other: See Comments Lexapro [Escitalopr* Other: See Comments rapid heart rate Oxybutynin Other: See Comments suggerst by SaludFÁCIL to stop since it can add to [...] intervention Stephani Crooks PA-C [facility] Miscellaneous Notes* Telephone Encounter - Julia Bradley RN - 10/14/2022 10:55 AM EST Opened In Error documented in this encounterDo[facility]11-[facility]-2022 Miscellaneous Notes* Telephone Encounter - Antionette Coleman MA - 09/15/2022 8:15 AM EST Medication attached to another phone encounter. Antionette Coleman MA documented in [facility]Do[facility]11-[facility]2022 Miscellaneous Notes* Telephone Encounter - Antionette [...] 09/2022 Last refill: 06/2022 documented in [facility] encounterDo[facility]22 Miscellaneous Notes* Telephone Encounter - Leno [...] you. Nel Cope LPN documented in [facility] encounterDo[facility]10[facility]2022 Miscellaneous Notes* Telephone Encounter - Lneo Briggs MD - 08/27/2022 8:17 AM EDT [...] advise. Brianne Chiang LPN documented in this encounterDo[facility]09-28-2022 Miscellaneous Notes* Telephone Encounter - Stephani [...] 09/2022 Last refill: 07/04/2022 documented in this encounterDo[facility]22 Miscellaneous Notes* Telephone Encounter - Antionette [...] help with ADL's ie. Bathing, grooming, mobility. [facility] [employer] ph. [phone] also will assess if patient are eligible for Medicaid as that is a requirement for Passport program. Sw looked back through notes and does not see any mention in regards to previous Passport referral or notes in regards to patient already having Passport services. Passport usually helps with home safety modifications, home assessment nurse, home delivered meals, medical alert button costs if eligible. If patient would be open to Sw referring, [facility] [employer] would do the in home assessment to seeif eligible. * Telephone Encounter - Antionette Coleman MA - 07/16/2022 10:00 AM EDT How do we find out if that patient is eligible for Passport? Antionette Coleman MA * Telephone Encounter - ZULEMA Salazar - 07/15/2022 1:54 PM EDT Sw has had patient's purchase motorized scooters from [employer] in [place]. [facility] ph.[phone] or fax#[phone]. I have not found insurance to be covering the cost of scooters unless they may be eligible for [facility] on Aging program. * Telephone Encounter [...] anyone. I told patient I would ask Property Worker if she had any other ideas on places for motorized scooters for insurance. If not we have to wait on [facility] [place]. Antionette Coleman MA * Telephone Encounter - Antionette Coleman MA - 07/07/2022 11:20 AM EDT Tried calling [employer] and they do not have motorized scooters. Antionette Coleman MA * Telephone Encounter - Grecia Riley LPN - 07/06/2022 10:06 AM EDT Received fax from [facility] [place] that wheelchair that was ordered for pt is on backorder and they are unable to obtain. Advised pt of same and she will check and see if there is anywhere else her insurance will approve of that office can fax order to to see if they can get wheelchair for pt. She will callback with information. Grecia Riley LPN documented in this encounterDoctors Hospital09-19-2022 Miscellaneous Notes* Telephone Encounter - Joy Hicks Ma - 07/26/2022 10:51 AM EDT Please see pt daughter message. Joy Hicks Ma documented in this encounterDoctors Hospital08-30-2022 Miscellaneous Notes* Telephone Encounter - Grecia Riley LPN - 07/06/2022 11:18 AM EDT Left message of same on daughter, Shae identified vm. Grecia Riley LPN * Telephone Encounter - Leno Briggs MD - 07/06/2022 11:06 AM EDT Let daughter know electrolyte panel was ok. documented in this encounterDoctors Hospital08-30-2022 Miscellaneous Notes* Telephone Encounter - Grecia [...] OTC. Stephani Crooks PA-C documented in this encounterDoctors Hospital08-29-2022 History of Present illness Narrative* Leno Briggs MD - 07/05/2022 3:20 PM EDT Chief Complaint Patient presents with: Follow Up: [facility] Robbin Singh is a 81 year old female who presents here today for 4 week follow up on Depression/HTN/Edema and Medication. Patient indicated that she contacted insurance and they will approve a scooter for patient if recommended by her PCP. They will pay for 80-90% and can be faxed to [facility] [place] [phone]. Patient here with her daughter today. Patient has recently been released for [facility] services due to meeting goals. At last [...] in the next few months. Taking the Acra twice a day does help her knee [...] kidney disease) stage 3, GFR 30-59 ml/min ([facility]) 01/01/2019 COPD with chronic bronchitis ([facility]) 02/15/2017 Dr. Brito Current use of proton pump inhibitor 11/25/2016 Mg checked 11/2017 DDD (degenerative disc disease), cervical 07/29/2015 DDD (degenerative disc disease), lumbar 05/08/2013 Diabetes mellitus type 2 in obese ([facility]) 06/2015 a1c 6.5% Diabetic eye exam ([facility]) 03/15/2017 Last done: 10/24/2019 No Retinopathy Essential [...] TACO (obstructive sleep apnea) DME [employer] fx [phone] Pain due to total left knee replacement [...] Recurrent major depressive disorder, in full remission ([facility]) 08/17/2012 Rheumatoid arthritis(714.0) Spondylosis of lumbar region [...] CYSTOSCOPY 09/21/12 EGD 10/17/2011 Dr Negrete in [place] ESOPHAGOGASTRODUODENOSCOPY TRANSORAL DIAGNOSTIC 05/16/2014 EGD ESOPHAGOGASTRODUODENOSCOPY TRANSORAL DIAGNOSTIC 09/12/14 EGD ESOPHAGOGASTRODUODENOSCOPY TRANSORAL DIAGNOSTIC 01/06/2017 EGD ESOPHAGOGASTRODUODENOSCOPY TRANSORAL DIAGNOSTIC 07/21/2020 EGD REMOVE CATARACT, INSERT LENS, INTRACAPSUL Bilateral 2008 Family History FAMILY HISTORY Problem Relation Age of Onset Hypertension Mother Heart Mother Lipids Mother HIGH CHOLESTEROL Heart Father [place] Ischemic Heart Disease Father STROKE other (diabetic) Father Diabetes Sister Diabetes Sister Breast Cancer Sister Patient Allergies ALLERGIES Allergen Reactions Bactrim [Sulfametho* Itching Codeine Mental Status Change Garlic Oil Other: See Comments Lexapro [Escitalopr* Other: See Comments rapid heart rate Oxybutynin Other: See Comments suggerst by SaludFÁCIL to stop since it can add to [...] DX E11.22 Insulin No Walker (ULTRA-LIGHT ROLLATOR) [facility] with seat. Dx: J44.9, M54.9, [...] ICD9: 338.4, ICD10: G89.4 - stable with Acra 4. Bilateral leg edema - ICD9: 782.3, [...] 09/24/2022 Leno Briggs MD documented in this encounterDoctors Hospital08-28-2022 Miscellaneous Notes* Telephone Encounter - Leno [...] message. Grecia Riley LPN documented in this encounterDoctors Hospital08-23-2022 Miscellaneous Notes* Telephone Encounter - Leno [...] 07/05/22 Grecia Riley LPN documented in this encounterDoctors Hospital08-22-2022 Miscellaneous Notes* Telephone Encounter - Leno [...] daily. Leno Briggs MD documented in this encounterDoctors Hospital08-08-2022 Miscellaneous Notes* Telephone Encounter - Grecia [...] 05/24/22 F/u scheduled: 07/05/22 Last refilled on: Acra #[id number] on 06/01/22 Cristina Garcia Ma documented in this encounterDoctors Hospital08-08-2022 Miscellaneous Notes* Telephone Encounter - Cristina Garcia Ma - 06/14/2022 12:40 PM EDT Last office visit: 05/24/22 F/u scheduled: 07/05/22 Cristina Garcia Ma documented in this encounterDoctors Hospital08-07-2022 History of Present illness Narrative* Leno Briggs MD - 06/13/2022 1:15 PM EDT Patient's home health 485 form / care plan for certification period 05/21/2022 to 07/19/2022 reviewedand signed. Relevant medical records were reviewed. Changes were communicated to home health agency documented in this encounterDoctors Hospital08-03-2022 Miscellaneous Notes* Telephone Encounter - Cristina Garcia Ma - 06/09/2022 12:08 PM EDT Jaeny notified and voiced understanding. Cristina Garcia Ma * Telephone Encounter - Leno Briggs MD - 06/09/2022 12:02 PM EDT Ok to give verbal ok for delay in care. * Telephone Encounter - Leesa Oro RN - 06/08/2022 4:22 PM EDT Janey- - [facility]- reports she is to see patient bi-weekly, but patient is a little overwhelmed right now, and asked SW to come next week. FAITH asking for verbal approval for delay of care. Please phone Janey with verbal. documented in this encounterDoctors Hospital07-28-2022 Miscellaneous Notes* Telephone Encounter - Cristina Garcia Ma - 06/03/2022 1:25 PM EDT Addressed in [employer] message. Cristina Garcia Ma * Telephone Encounter - Cristina Garcia Ma - 06/03/2022 1:12 PM EDT Awaiting response from pt on if she has received her 90 day supply from Mail order pharmacy yet? Cristina Garcia Ma documented in this encounterC[place] [id number] Miscellaneous Notes* Telephone Encounter - Antionette Coleman [...] for functional mobility training. documented in this [facility]07-26-[facility] Miscellaneous Notes* Telephone Encounter - Octavio [...] patient. Irene Hardin Ma documented in this encounterDoctors Hospital07-21-2022 Miscellaneous Notes* Telephone Encounter - Grecia Riley LPN - 05/27/2022 11:49 AM EDT Orders faxed as requested to DME [phone]. Grecia Riley LPN * Telephone Encounter - [...] was told the officewould have to call [facility] at [phone]. If it is sent there, then it will be covered.Please advise. * Telephone Encounter - Antionette Coleman MA - 05/26/2022 8:42 PM EDT Spoke with Gail and she indicated that the insurance company [facility] then [facility] would [facility] [...] letter. Please advise Gail. documented in this encounterDoctors Hospital07-20-2022 Miscellaneous Notes* Telephone Encounter - Shira Shell Cma - 05/26/2022 9:15 AM EDT Patient daughter notified and verbalized understanding Shira Shell Cma * Telephone Encounter - Stephani Crooks PA-C - 05/26/2022 9:00 AM EDT Repeat urine is better and culture negative. Stephani Crooks PA-C documented in this encounterDoctors Hospital07-20-2022 Miscellaneous Notes* Telephone Encounter - Leesa Oro RN - 05/26/2022 8:30 AM EDT Left detailed vm on identified vm with provider's message below. * Telephone Encounter - Leno Briggs MD - 05/25/2022 8:50 PM EDT Let [place] know I'm fine giving order for her to see her one more time. If she needs more visits letme know. * Telephone Encounter - Shelby Rogel LPN - 05/25/2022 3:46 PM EDT Shanta, 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 with [facility] calling for verbal order to see pt one more time to follow up on referrals and community resources. Please advise Shanta. Shelby Rogel LPN documented in this encounterDoctors Hospital07-18-2022 History of Present illness Narrative* Leno [...] patient does not remember this. [facility] has been out to see her encluding SW, snf and will also include PHYSICAL THERAPY. There [...] kidney disease) stage 3, GFR 30-59 ml/min ([facility]) 01/01/2019 COPD with chronic bronchitis ([facility]) 02/15/2017 Dr. Brito Current use of proton pump inhibitor 11/25/2016 Mg checked 11/2017 DDD (degenerative disc disease), cervical 07/29/2015 DDD (degenerative disc disease), lumbar 05/08/2013 Diabetes mellitus type 2 in obese ([facility]) 06/2015 a1c 6.5% Diabetic eye exam ([facility]) 03/15/2017 Last done: 10/24/2019 No Retinopathy Essential [...] TACO (obstructive sleep apnea) DME [employer] fx [phone] Pain due to total left knee replacement [...] Recurrent major depressive disorder, in full remission ([facility]) 08/17/2012 Rheumatoid arthritis(714.0) Spondylosis of lumbar region without myelopathy or radiculopathy 05/28/2015 Status post total left knee replacement 06/08/2018 Stress incontinence 11/21/[address] Armas. Thyroid nodule 11/15/2018 Stable on 2017 Type 2 diabetes mellitus with stage 3 chronic kidney disease, without long-term current use of insulin ([facility]) 06/06/2017 Urge incontinence 11/21/2012 Previous Surgical History [...] CYSTOSCOPY 09/21/12 EGD 10/17/2011 Dr Negrete in [place] ESOPHAGOGASTRODUODENOSCOPY TRANSORAL DIAGNOSTIC 05/16/2014 EGD ESOPHAGOGASTRODUODENOSCOPY TRANSORAL DIAGNOSTIC 09/12/14 EGD ESOPHAGOGASTRODUODENOSCOPY TRANSORAL DIAGNOSTIC 01/06/2017 EGD ESOPHAGOGASTRODUODENOSCOPY TRANSORAL DIAGNOSTIC 07/21/2020 EGD REMOVE CATARACT, INSERT LENS, INTRACAPSUL Bilateral 2009 Family History FAMILY HISTORY Problem Relation Age of Onset Hypertension Mother Heart Mother Lipids Mother HIGH CHOLESTEROL Heart Father [place] Ischemic Heart Disease Father STROKE other (diabetic) Father Diabetes Sister Diabetes Sister Breast Cancer Sister Patient Allergies ALLERGIES Allergen Reactions Bactrim [Sulfametho* Itching Codeine Mental Status Change Garlic Oil Other: See Comments Lexapro [Escitalopr* Other: See Comments rapid heart rate Oxybutynin Other: See Comments suggerst by SaludFÁCIL to stop since it can add to [...] up to 30 days. Walker (ULTRA-LIGHT ROLLATOR) [facility] [place] with seat. Dx: J44.9, M54.9, [...] unspecified whether stage 3a or 3b CKD ([facility]) - ICD9: 250.40, 585.3, ICD10: E11.22, N18.30 (primary diagnosis) uncontrolled - Continue current medications - BP goal of <130/80 - LDL goal of <100 - Recently restarted on metformin and increased to two tabs twice a day. 2. Diabetes mellitus type 2 in obese ([facility]) - ICD9: 250.00, 278.00, ICD10: E11.69, E66.9 - As per #1 3. Diabetic eye exam ([facility]) - ICD9: V72.0, 250.00, ICD10: Z01.00, E11.9 [...] mg BID 12. COPD with chronic bronchitis ([facility]) - ICD9: 491.20, ICD10: J44.9 - Stable. Needs to f/u with pulm 13. Stage 3 chronic kidney disease, unspecified whether stage 3a or 3b CKD ([facility]) - ICD9: 585.3, ICD10: N18.30 - Appears stable. Will need to check renal panel in a few weeks wit being on the aldactone 14. Obesity, Class III, BMI 40-49.9 (morbid obesity) ([facility]) - ICD9: 278.01, ICD10: E66.01 Stable - [...] time Leno Briggs MD documented in this encounterDoctors Hospital07-13-2022 Miscellaneous Notes* Telephone Encounter - Leno [...] of insurance card and med list to [facility] fax#[phone]. Also let daughter know this was done. * Telephone Encounter - ZULEMA Salazar - 05/18/2022 7:24 AM EDT If staff could let patient sister Gail know what comes of response to home health services FAITH would appreciate. Gail ph.[phone]. * Telephone Encounter - ZULEMA Salazar - [...] be then faxed to home health agency. [facility] fax#[phone]. [facility] fax#[phone], [facility] fax [phone] are other home health care options if [facility] does not work. Sw will be [...] health agencies in the community that provide snf and PT ie. [facility]. Faith noted for Medicare a patient would need to be considered home bound. Home Health agencies also look to provider notes to see about home health being discussed at . Faith also noted [facility] program. [facility] has nursing,social work, therapy and [employer] students that go to patients homes that [...] gave verbal permission to speak with Gail ph.[phone]. Faith will try call again tomorrow 05/14 @10am to discuss transportation resources. documented in this encounterDoctors Hospital07-12-2022 History of Present illness Narrative* TRI Silva - 05/18/2022 2:05 PM EDT PULM FUNCTION SMARTBLOCK: Provider: Stephani Crooks PA-C Assisting Tech: TRI Silva Spirometry w/BD: 1 documented in this encounterDoctors Hospital07-07-2022 Miscellaneous Notes* Telephone Encounter - Stephani Crooks PA-C - 05/13/2022 2:39 PM EDT Consult placed. * Telephone Encounter - Grecia Riley LPN - 05/13/2022 2:31 PM EDT Spoke with pt. She is agreeable to consult with SW. Pt would like SW to contact her sister Gail. Spoke with Gail and her contact # is [phone]. Gail states she will relay information to [...] She states Stephani suggested patient speak to Property Worker about transportation issues. Patient's sister says she would likeher sister to speak to a 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. Sister is not listed as an emergency contact or POA. Marie Kumar RN documented in this encounterDoctors Hospital07-05-2022 Miscellaneous Notes* Telephone Encounter - Stephani Croosk PA-C - 05/11/2022 9:56 AM EDT The [...] to increase of metformin. Uses [facility] [place]. Pt denies any s/s uti. Will come [...] okay. Stephani Crooks PA-C documented in this encounterDoctors Hospital07-05-2022 Miscellaneous Notes* Telephone Encounter - Brandy [...] daughter. Grecia Riley LPN documented in this encounterDoctors Hospital07-05-2022 Miscellaneous Notes* Telephone Encounter - Grecia Riley LPN - 05/11/2022 8:42 AM EDT Pt requesting refills TAVO 05/07/22 NOV 07/07/22 Grecia Riley LPN documented in this encounterDoctors Hospital07-01-2022 Instructions* Patient Instructions* Stephani Crooks PA-C - 05/07/2022 1:46 PM EDT Please reschedule with pulm and cardiology. documented in this encounterDoctors Hospital07-01-2022 History of Present illness Narrative* Stephani [...] kidney disease) stage 3, GFR 30-59 ml/min ([facility]) 01/01/2019 COPD with chronic bronchitis ([facility]) 02/15/2017 Dr. Brito Current use of proton pump inhibitor 11/25/2016 Mg checked 11/2017 DDD (degenerative disc disease), cervical 07/29/2015 DDD (degenerative disc disease), lumbar 05/08/2013 Diabetes mellitus type 2 in obese ([facility]) 06/2015 a1c 6.5% Diabetic eye exam ([facility]) 03/15/2017 Last done: 10/24/2019 No Retinopathy Essential [...] TACO (obstructive sleep apnea) DME [employer] fx [phone] Pain due to total left knee replacement ([facility]) 06/08/2018 Personal history of colonic polyps 01/23/2016 Primary insomnia 03/16/2017 [facility] center 06/26/2018 recommended Klonopin every other day for a week and then just as needed. Primary osteoarthritis of right knee 07/13/2016 Pulmonary nodules 03/03/2013 Incidental non-calcified nodules 10/09/2012. Repeat CT due 06/2013 Recurrent major depressive disorder, in full remission ([facility]) 08/17/2012 Rheumatoid arthritis(714.0) Spondylosis of lumbar region [...] CHOLECYSTECTOMY HX 10/30/1997 COLONOSCOP W/ OR W/O [facility] SPE[facility] 11/29/12 Colonoscopy repeat 3 years COLONOSCOP W/ OR W/O [facility] SPE[facility] 01/28/16 Colonoscopy with mac COLONOSCOPY & POLYPECTOMY ~2007 2 polyps COLONOSCOPY & POLYPECTOMY ~2001 7 polyps COLONOSCOPY & POLYPECTOMY 11/30/2011 CYSTOSCOPY 09/21/12 EGD 10/17/2011 Dr Negrete in [place] EGD W/O OR W/BRUSH/WASH 05/16/2014 EGD EGD W/O OR W/BRUSH/WASH 09/12/14 EGD EGD W/O OR W/BRUSH/WASH 01/06/2017 EGD EGD W/O OR W/BRUSH/WASH 07/21/2020 EGD REMOVE CATARACT, INSERT LENS, INTRACAPSUL Bilateral 2008 TOTAL KNEE REPLACEMENT Left 06/08/2012 Family History FAMILY HISTORY Problem Relation Age of Onset Hypertension Mother Heart Mother Lipids Mother HIGH CHOLESTEROL Heart Father [place] Ischemic Heart Disease Father STROKE other (diabetic) Father Diabetes Sister Diabetes Sister Breast Cancer Sister Patient Allergies ALLERGIES Allergen Reactions Bactrim [Sulfametho* Itching Codeine Mental Status Change Garlic Oil Other: See Comments Lexapro [Escitalopr* Other: See Comments rapid heart rate Oxybutynin Other: See Comments suggerst by SaludFÁCIL to stop since it can add to [...] mouth once daily. ) Walker (ULTRA-LIGHT ROLLATOR) [facility] Rol[place] with seat. Dx: J44.9, M54.9, [...] recheck. Stephani Crooks PA-C documented in this encounterDoctors Hospital07-01-2022 Evaluation note* Diagnosis Type 2 diabetes [...] and respiratory abnormality documented in this encounter [facility]06[facility]2022 Miscellaneous Notes* Telephone Encounter - Grecia [...] Tue. Grecia Riley LPN documented in this encounterDoctors Hospital06-16-2022 Miscellaneous Notes* Telephone Encounter - Antionette [...] 04/21/2022 2:50 PM EDT Pharmacy verified in [facility] Patient has been identified by name and [...] advise. Sun Chavez Pss documented in this encounterDoctors Hospital05-25-2022 Miscellaneous Notes* Telephone Encounter - Leno [...] LPN * Telephone Encounter - Ana Anderson [facility] - 03/31/2022 9:45 [...] pharmacy. No need to notify patient. [facility] documented in this encounterDoctors Hospital05-25-2022 Miscellaneous Notes* Telephone Encounter - Grecia [...] notify patient. Romelia Dorantes documented in this encounterDoctors Hospital05-16-2022 Miscellaneous Notes* Telephone Encounter - Shelby Rogel LPN - 03/22/2022 4:56 PM EDT Pt scheduled for apt on 04-07-22. Shelby Rogel LPN * Telephone Encounter - Stephani Crooks PA-C - 03/22/2022 3:15 PM EDT Patient needs to reschedule her visit with dr. Briggs. Stephani Crooks PA-C * Telephone Encounter - Ana Anderson [facility] - 03/22/2022 2:19 [...] pharmacy. No need to notify patient. Ana [facility] documented in this encounterDoctors Hospital09-13-2021 NoteHNO ID: [id number] Author: MODESTO Salmeron Service: Radiology Author Type: Clinical Greenhouse Laborer Type: Progress Notes Filed: 07/20/2021 2:36 PM [...] BY: MODESTO Salmeron July 20, 2021 2:35 PMMagruder Memorial [id number] History of Past illness Narrative* Problem Noted [...] of this encounter (statuses as of 06/22/2023) [facility] of Past [facility] Narrative* Problem [...] of this encounter (statuses as of 06/22/2023) [facility] of [facility] Narrative* Problem [...] of this encounter (statuses as of 07/06/2023) [facility] of Past [facility] Narrative* Problem [...] of this encounter (statuses as of 08/24/2023) [facility] of [facility] Narrative* Problem [...] of this encounter (statuses as of 09/02/2023) [facility] of Past [facility] Narrative* Problem [...] of this encounter (statuses as of 09/20/2023) [facility] Narrative* Problem [...] of this encounter (statuses as of 03/22/2022) [facility] Narrative* Problem [...] of this encounter (statuses as of 03/31/2022) [facility] Narrative* Problem [...] of this encounter (statuses as of 03/31/2022) [facility] Narrative* Problem [...] of this encounter (statuses as of 04/22/2022) [facility] Narrative* Problem [...] of this encounter (statuses as of 04/30/2022) [facility] Narrative* Problem [...] of this encounter (statuses as of 05/07/2022) [facility] Narrative* Problem [...] of this encounter (statuses as of 05/11/2022) [facility] Narrative* Problem [...] of this encounter (statuses as of 05/11/2022) [facility] Narrative* Problem [...] of this encounter (statuses as of 05/12/2022) [facility] Narrative* Problem [...] of this encounter (statuses as of 05/13/2022) [facility]* Problem [...] of this encounter (statuses as of 05/18/2022) [facility] Narrative* Problem [...] of this encounter (statuses as of 05/19/2022) [facility] Narrative* Problem [...] of this encounter (statuses as of 05/24/2022) [facility] N[facility]ative* Problem [...] of this encounter (statuses as of 05/26/2022) [facility]ative* Problem [...] of this encounter (statuses as of 05/27/2022) [facility]ative* Problem [...] of this encounter (statuses as of 06/01/2022) [facility]ative* Problem [...] of this encounter (statuses as of 06/03/2022) [facility] Narrative* Problem [...] of this encounter (statuses as of 06/03/2022) [facility]ative* Problem [...] of this encounter (statuses as of 06/09/2022) [facility]ative* Problem [...] of this encounter (statuses as of 06/14/2022) [facility]ative* Problem [...] of this encounter (statuses as of 06/14/2022) [facility]* Problem [...] of this encounter (statuses as of 06/14/2022) [facility]ative* Problem [...] of this encounter (statuses as of 06/15/2022) [facility]* Problem [...] of this encounter (statuses as of 06/29/2022) [facility]* Problem [...] of this encounter (statuses as of 06/29/2022) [facility]* Problem [...] of this encounter (statuses as of 07/04/2022) [facility]* Problem [...] of this encounter (statuses as of 07/05/2022) [facility]* Problem [...] of this encounter (statuses as of 07/06/2022) [facility]* Problem [...] of this encounter (statuses as of 07/26/2022) [facility]* Problem [...] of this encounter (statuses as of 07/27/2022) [facility]* Problem [...] of this encounter (statuses as of 08/04/2022) [facility]* Problem [...] of this encounter (statuses as of 08/27/2022) [facility] Narrative* Problem [...] of this encounter (statuses as of 09/08/2022) [facility]* Problem [...] of this encounter (statuses as of 09/15/2022) [facility]* Problem [...] of this encounter (statuses as of 09/15/2022) [facility]* Problem [...] of this encounter (statuses as of 10/14/2022) [facility]* Problem [...] of this encounter (statuses as of 11/10/2022) [facility]* Problem [...] of this encounter (statuses as of 11/10/2022) [facility]* Problem [...] of this encounter (statuses as of 11/11/2022) [facility]* Problem [...] of this encounter (statuses as of 11/11/2022) [facility]* Problem [...] of this encounter (statuses as of 11/16/2022) [facility]* Problem [...] of this encounter (statuses as of 11/19/2022) [facility]* Problem [...] of this encounter (statuses as of 11/19/2022) [facility]* Problem [...] of this encounter (statuses as of 11/22/2022) [facility]* Problem [...] of this encounter (statuses as of 12/02/2022) [facility]* Problem [...] of this encounter (statuses as of 12/07/2022) [facility]* Problem [...] of this encounter (statuses as of 12/13/2022) [facility]* Problem [...] of this encounter (statuses as of 12/16/2022) [facility]* Problem [...] of this encounter (statuses as of 12/23/2022) [facility]* Problem [...] of this encounter (statuses as of 12/24/2022) [facility]* Problem [...] of this encounter (statuses as of 12/27/2022) [facility]* Problem [...] of this encounter (statuses as of 12/29/2022) [facility]* Problem [...] of this encounter (statuses as of 01/06/2023) [facility]* Problem [...] of this encounter (statuses as of 01/07/2023) [facility]* Problem [...] of this encounter (statuses as of 01/14/2023) [facility]* Problem [...] of this encounter (statuses as of 01/18/2023) [facility]* Problem [...] of this encounter (statuses as of 01/19/2023) [facility]* Problem [...] of this encounter (statuses as of 01/25/2023) [facility]* Problem [...] of this encounter (statuses as of 01/26/2023) [facility]* Problem [...] of this encounter (statuses as of 01/26/2023) [facility]* Problem [...] of this encounter (statuses as of 01/28/2023) [facility]* Problem [...] of this encounter (statuses as of 01/31/2023) [facility]* Problem [...] of this encounter (statuses as of 02/03/2023) [facility]* Problem [...] of this encounter (statuses as of 02/10/2023) [facility]* Problem [...] of this encounter (statuses as of 02/10/2023) [facility]* Problem [...] of this encounter (statuses as of 02/11/2023) [facility]* Problem [...] of this encounter (statuses as of 02/14/2023) [facility]* Problem [...] of this encounter (statuses as of 02/14/2023) [facility]* Problem [...] of this encounter (statuses as of 02/18/2023) [facility]* Problem [...] of this encounter (statuses as of 03/07/2023) [facility]* Problem [...] of this encounter (statuses as of 03/09/2023) [facility]* Problem [...] of this encounter (statuses as of 03/09/2023) [facility]* Problem [...] of this encounter (statuses as of 03/12/2023) [facility]* Problem [...] of this encounter (statuses as of 03/17/2023) [facility]* Problem [...] of this encounter (statuses as of 04/04/2023) [facility]* Problem [...] of this encounter (statuses as of 04/11/2023) [facility]* Problem [...] of this encounter (statuses as of 06/21/2023) [facility] note* Diagnosis Chronic pain of both knees Neuropathic pain Neuralgia, neuritis, and radiculitis, unspecified Chronic pain syndrome Lumbar spondylosis Lumbosacral spondylosis without myelopathy DDD (degenerative disc disease), cervical Degeneration of cervical intervertebral disc Arthritis, multiple joint involvement Unspecified arthropathy, multiple sites [facility] Diagnosis Microscopic hematuria- Primary [facility]* Diagnosis 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)- Primary Type II or unspecified type diabetes mellitus without mention of complication, not stated as uncontrolled Recurrent major depressive disorder, in full remission (HCC) MCI (mild cognitive impairment) Mild cognitive impairment, so stated [facility] Diagnosis COPD with chronic bronchitis (HCC) Obstructive chronic bronchitis without exacerbation SOB (shortness of breath) Shortness of breath CHURCH (dyspnea on exertion) Other dyspnea and respiratory abnormality [facility] Diagnosis Chronic pain syndrome- Primary Recurrent [...] obesity Urge incontinence [facility] Diagnosis Type 2 diabetes mellitus with [...] unspecified whether stage 3a or 3b CKD ([facility]) Obesity, Class III, BMI 40-49.9 (morbid obesity) (HCC) Morbid obesity TACO (obstructive sleep apnea) Obstructive sleep apnea (adult) (pediatric) Primary insomnia Persistent disorder of initiating or maintaining sleep Bilateral primary osteoarthritis of knee Microscopic hematuria [facility] Diagnosis Chronic pain of both knees Neuropathic pain Neuralgia, neuritis, and radiculitis, unspecified Chronic pain syndrome Lumbar spondylosis Lumbosacral spondylosis without myelopathy DDD (degenerative disc disease), cervical Degeneration of cervical intervertebral disc Arthritis, multiple joint involvement Unspecified arthropathy, multiple sites [facility] Diagnosis Hypertensive heart disease with congestive heart failure, unspecified heart failure type ([facility])- Primary Chronic diastolic heart failure ([facility]) Chronic diastolic heart failure Type 2 diabetes mellitus with diabetic chronic kidney disease, unspecified CKD stage, unspecified whether terminal operations supervisor insulin use ([facility]) Stage 3 chronic kidney disease, unspecified whether stage 3a or 3b CKD ([facility]) Major depressive disorder, recurrent episode, in full remission ([facility]) Major depressive disorder, recurrent episode, in full remission Mild cognitive impairment, so stated Mixed hyperlipidemia Cervical spondylosis with myelopathy Other spondylosis with radiculopathy, lumbar region Obstructive chronic bronchitis without exacerbation (HCC) Obstructive chronic bronchitis without exacerbation Obstructive sleep apnea (adult) (pediatric) [facility] Diagnosis Chronic pain of both knees Neuropathic pain Neuralgia, neuritis, and radiculitis, unspecified Chronic pain syndrome Lumbar spondylosis Lumbosacral spondylosis without myelopathy DDD (degenerative disc disease), cervical Degeneration of cervical intervertebral disc Arthritis, multiple joint involvement Unspecified arthropathy, multiple sites [facility] Chronic pain of both knees Neuropathic pain Neuralgia, neuritis, and radiculitis, unspecified Chronic pain syndrome Lumbar spondylosis Lumbosacral spondylosis without myelopathy DDD (degenerative disc disease), cervical Degeneration of cervical intervertebral disc Arthritis, multiple joint involvement Unspecified arthropathy, multiple sites [facility] Diagnosis Chronic pain of both [...] or anxiety (HCC) documented in this encounter [facility] note* Diagnosis Chronic pain of both knees Neuropathic pain Neuralgia, neuritis, and radiculitis, unspecified Chronic pain syndrome Lumbar spondylosis Lumbosacral spondylosis without myelopathy DDD (degenerative disc disease), cervical Degeneration of cervical intervertebral disc Arthritis, multiple joint involvement Unspecified arthropathy, multiple sites [facility] Diagnosis Colovesical fistula Intestinovesical fistula Morbid obesity (HCC) Morbid obesity Poorly controlled diabetes mellitus (HCC) Type II or unspecified type diabetes mellitus without mention of complication, not stated as uncontrolled documented in this encounter [facility] note* Diagnosis Colovesical fistula- Primary Intestinovesical fistula documented in this encounter [facility] note* Diagnosis Colovesical fistula- Primary Intestinovesical fistula documented in this encounter [facility] note* Diagnosis Colovesical fistula- Primary Intestinovesical fistula documented in this encounter [facility] note* Diagnosis Medication management- Primary Encounter for long-term (current) use of other medications documented in this encounter [facility] note* Diagnosis Colovesical fistula- Primary Intestinovesical fistula Screening for ischemic heart disease- Primary documented in this encounter [facility] note* Diagnosis Chronic pain of both knees Neuropathic pain Neuralgia, neuritis, and radiculitis, unspecified Chronic pain syndrome Lumbar spondylosis Lumbosacral spondylosis without myelopathy DDD (degenerative disc disease), cervical Degeneration of cervical intervertebral disc Arthritis, multiple joint involvement Unspecified arthropathy, multiple sites documented in this encounter [facility] note* Diagnosis APPOINTMENT CANCELLED- Primary documented in this encounter [facility] note* Diagnosis Memory loss- Primary Mild episode of recurrent major depressive disorder (HCC) Nightmares Other dysfunctions of sleep stages or arousal from sleep 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 Diagnosis Colovaginal fistula- Primary Diverticulitis Diverticulitis of colon (without mention of hemorrhage) Abnormal CT scan Other nonspecific (abnormal) findings on radiological and other examinations of body structure Dementia, unspecified dementia severity, unspecified dementia type, unspecified whether behavioral, psychotic, or mood disturbance or anxiety (HCC) Morbid obesity (HCC) Morbid obesity 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 [facility] note* Diagnosis Memory loss 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 [facility] note* Diagnosis Colovaginal fistula Diabetes mellitus, type 2 ([facility]) Type II or unspecified type diabetes mellitus without mention of complication, not stated as uncontrolled CHF (congestive heart failure) ([facility]) ([facility]) Congestive heart failure, unspecified documented in this encounter 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 note* Diagnosis Colovaginal fistula- Primary Colovesical fistula Intestinovesical fistula History of diverticulitis documented in this encounter [facility] note* Diagnosis Insomnia, unspecified type documented in this encounter [facility] note* Diagnosis Chronic pain of [...] head and neck [facility]* Diagnosis Other amnesia- Primary documented in this encounter [facility] note* Diagnosis Dysuria documented in this encounter [facility] note* Diagnosis Anemia, unspecified type- Primary Hyponatremia Hyposmolality and/or hyponatremia documented in this encounter [facility] note* Diagnosis Dysuria Chronic pain of both knees Neuropathic pain Neuralgia, neuritis, and radiculitis, unspecified Chronic pain syndrome Lumbar spondylosis Lumbosacral spondylosis without myelopathy DDD (degenerative disc disease), cervical Degeneration of cervical intervertebral disc Arthritis, multiple joint involvement Unspecified arthropathy, multiple sites documented in this encounter [facility] Discharge instructions* Attachments The following attachments cannot be sent through Care Everywhere. * Colon Polypectomy Dis[facility] Instructions ([place] Outpatient Procedure (Routine) - Authorized Specialty Diagnoses / Procedures Referred By Contac t Referred To Contact [facility] Diagnoses COPD with chronic bronchitis (HCC) SOB (shortness of breath) CHURCH (dyspnea on exertion) Procedures SPIROMETRY - BASELINE AND POST DILATOR BRNCDILAT RSPSE SPMTRY PRE&POST-BRNCDILAT ADMN Stephani Crooks PA-C [address] [place] [address] Respiratory [facility] [address] [place] [id number] Referral ID Status Reason Start Date Expiration Date Visits Requested Visits Authorized [id number] Authorized Auto-Generat ed Referral 05/07/2022 11/06/2022 1 1 * Outpatient Procedure (Routine) - Authorized Specialty Diagnoses / Procedures Referred By Contac t Referred To Contact [facility] Diagnoses Chronic diastolic heart failure (HCC) SOB (shortness of breath) CHURCH (dyspnea on exertion) Procedures ECHO ECHO TTHRC R-T 2D W/WOM-MODE COMPL SPEC&COLR D Stephani Crooks PA-C [address] [place] [address] Heart [facility] Vascular [address] [address] Referral ID Status Reason Start Date Expiration Date Visits Requested Visits Authorized [id number] Authorized Auto-Generat ed Referral 05/07/2022 11/06/2022 1 1 [facility] for referral (narrative)* Outpatient Procedure (Routine) - Pending Review Specialty Diagnoses / Procedures Referred By Contac t Referred To Contact [facility] Diagnoses Colovesical fistula Procedures COLONOSCOPY DIAGNOSTIC COLONOSCOPY FLX DX W/COLLJ SPEC WHEN PFLeonel Larsen MD [address] [address] [facility] [address] [place] [id number] Referral ID Status Reason Start Date Expiration Date Visits Requested Visits Authorized [id number] Pending Review Auto-Generat ed Referral 02/18/2023 02/19/2024 1 1 [facility] Summary Purpose Family History No Family History Records FoundNo Family History Records FoundNo Family History Records FoundNo Family History Records FoundNo Family History Records FoundNo Family History Records FoundNo Family History Records Found Advance Directives Documents on File Type Date Recorded Patient Physician Gynecologist Expl anation Advance Directive(s) 07/21/2020 9:36 AM [...] Documents on File Type Date Recorded Patient Physician Gynecologist Expl anation Advance Directive(s) 07/21/2020 9:36 AM [...] Documents on File Type Date Recorded Patient Physician Gynecologist Expl anation Advance Directives and Livin g Will 05/04/2023 1:18 PM Latest Code Status on File Code Status Date Activated Date Inactivated Comments Full Code 05/25/2023 8:10 AM 05/25/2023 2:17 PM Documents on File Type Date Recorded Patient Physician Gynecologist Expl anation Advance Directives and Livin g [...] Dysuria Nightmares Procedures CONSULT TO GERIATRICS OFFICE/OUTPATIENT [facility] 60-74 MINUTES Stephani Crooks PA-C [address] [place] [address] Referral ID Status Reason Start Date Expiration Date Visits Requested Visits Authorized [id number] Pending Review PCP Requested Referral 12/23/2022 12/23/2023 1 1 Specialty Diagnoses / Procedures Referred By Contac t Referred To Contact Colon and Rectal Surgery Diagnoses Colovesical fistula Procedures CONSULT TO COLO-RECTAL SURGERY OFFICE/OUTPATIENT [facility] 60-74 MINUTES Eufemia Chapa APRN.[employer] [address] [place] [address] Referral ID Status Reason Start Date Expiration Date Visits Requested Visits Authorized [id number] Pending Review PCP Requested Referral 01/06/2023 01/06/2024 1 1 Specialty Diagnoses / Procedures Referred By Contac t Referred To Contact Stephani Crooks PA-C [address] [place] [address] Referral ID Status Reason Start Date Expiration Date Visits Re quested Visits Authorized [id number] Closed 1 1 Specialty Diagnoses / Procedures Referred By Contac t Referred To Contact Colon and Rectal Surgery Diagnoses Colovesical fistula Procedures CONSULT TO COLO-RECTAL SURGERY OFFICE/OUTPATIENT [facility] MDM 60-74 MINUTES Leesa Ramirez MD [address] [facility] [place] [address] Referral ID Status Reason Start Date Expiration Date Visits Requested Visits Authorized [id number] Pending Review PCP Requested Referral 01/25/2023 01/25/2024 1 1 Specialty Diagnoses / Procedures Referred By Lovely t Referred To Contact Radiology Diagnoses Memory loss Procedures CT head wo IV contrast Shantal Serrano, SYNCHRONIZER - [employer] [address] [place] [address] Referral ID Status Reason Start Date Expiration Date V isits Requested Visits Authorized [id number] Authorized 04/05/2023 10/02/2023 1 1 Referral ID Status Reason Start Date Expiration Date Visits Re quested Visits Authorized [id number] Closed 04/05/2023 10/02/2023 1 1 Additional Source Comments INFORMATION SOURCE (unrecogn ized section and content) DATE CREATED AUTHOR AUTHOR'S ORGANIZ ATION 04/13/2019 [facility] DATE CREATED AUTHOR AUTHOR'S ORGANIZ ATION 07/22/2021 [facility] DATE CREATED AUTHOR AUTHOR'S ORGANIZ ATION 01/06/2023 [facility] ([place] DATE CREATED AUTHOR AUTHOR'S ORGANIZ ATION 02/05/2023 [facility] DATE CREATED AUTHOR AUTHOR'S ORGANIZ ATION 09/02/2023 [facility] DATE CREATED AUTHOR AUTHOR'S ORGANIZ ATION 09/21/2023 [facility] Source Comments (unrecognize d section and content) In the event this informatio n is protected by the Federal Confidentiality of Alcohol and Drug Abuse Patient Records regulations: The Federal rules restrict any use of the information to criminally investigate or prosecute any alcohol or drug abuse patient.[facility] event this information is protected by the Federal Confidentiality of Alcohol and Drug Abuse Patient Records regulations: The Federal rules restrict any use of the information to criminally investigate or prosecute any alcohol or drug abuse patient.[facility] the event this information is protected by the Federal Confidentiality of Alcohol and Drug Abuse Patient Records regulations: The Federal rules restrict any use of the information to criminally investigate or prosecute any alcohol or drug abuse patient.[facility] the event this information is protected by the Federal Confidentiality of Alcohol and Drug Abuse Patient Records regulations: The Federal rules restrict any use of the information to criminally investigate or prosecute any alcohol or drug abuse patient.[facility] the event this information is protected by the Federal Confidentiality of Alcohol and Drug Abuse Patient Records regulations: The Federal rules restrict any use of the information to criminally investigate or prosecute any alcohol or drug abuse patient.[facility] the event this information is protected by the Federal Confidentiality of Alcohol and Drug Abuse Patient Records regulations: The Federal rules restrict any use of the information to criminally investigate or prosecute any alcohol or drug abuse patient.[facility] the event this information is protected by the Federal Confidentiality of Alcohol and Drug Abuse Patient Records regulations: The Federal rules restrict any use of the information to criminally investigate or prosecute any alcohol or drug abuse patient.[facility] the event this information is protected by the Federal Confidentiality of Alcohol and Drug Abuse Patient Records regulations: The Federal rules restrict any use of the information to criminally investigate or prosecute any alcohol or drug abuse patient.[facility] the event this information is protected by the Federal Confidentiality of Alcohol and Drug Abuse Patient Records regulations: The Federal rules restrict any use of the information to criminally investigate or prosecute any alcohol or drug abuse patient.[facility] the event this information is protected by the Federal Confidentiality of Alcohol and Drug Abuse Patient Records regulations: The Federal rules restrict any use of the information to criminally investigate or prosecute any alcohol or drug abuse patient.[facility] the event this information is protected by the Federal Confidentiality of Alcohol and Drug Abuse Patient Records regulations: The Federal rules restrict any use of the information to criminally investigate or prosecute any alcohol or drug abuse patient.[facility] the event this information is protected by the Federal Confidentiality of Alcohol and Drug Abuse Patient Records regulations: The Federal rules restrict any use of the information to criminally investigate or prosecute any alcohol or drug abuse patient.[facility] HospitalIn the event this information is protected by the Federal Confidentiality of Alcohol and Drug Abuse Patient Records regulations: The Federal rules restrict any use of the information to criminally investigate or prosecute any alcohol or drug abuse patient.[facility] HospitalIn the event this information is protected by the Federal Confidentiality of Alcohol and Drug Abuse Patient Records regulations: The Federal rules restrict any use of the information to criminally investigate or prosecute any alcohol or drug abuse patient.[facility] HospitalIn the event this information is protected by the Federal Confidentiality of Alcohol and Drug Abuse Patient Records regulations: The Federal rules restrict any use of the information to criminally investigate or prosecute any alcohol or drug abuse patient.[facility] HospitalIn the event this information is protected by the Federal Confidentiality of Alcohol and Drug Abuse Patient Records regulations: The Federal rules restrict any use of the information to criminally investigate or prosecute any alcohol or drug abuse patient.[facility] HospitalIn the event this information is protected by the Federal Confidentiality of Alcohol and Drug Abuse Patient Records regulations: The Federal rules restrict any use of the information to criminally investigate or prosecute any alcohol or drug abuse patient.[facility] HospitalIn the event this information is protected by the Federal Confidentiality of Alcohol and Drug Abuse Patient Records regulations: The Federal rules restrict any use of the information to criminally investigate or prosecute any alcohol or drug abuse patient.[facility] HospitalIn the event this information is protected by the Federal Confidentiality of Alcohol and Drug Abuse Patient Records regulations: The Federal rules restrict any use of the information to criminally investigate or prosecute any alcohol or drug abuse patient.[facility] HospitalIn the event this information is protected by the Federal Confidentiality of Alcohol and Drug Abuse Patient Records regulations: The Federal rules restrict any use of the information to criminally investigate or prosecute any alcohol or drug abuse patient.[facility] HospitalIn the event this information is protected by the Federal Confidentiality of Alcohol and Drug Abuse Patient Records regulations: The Federal rules restrict any use of the information to criminally investigate or prosecute any alcohol or drug abuse patient.[facility] HospitalIn the event this information is protected by the Federal Confidentiality of Alcohol and Drug Abuse Patient Records regulations: The Federal rules restrict any use of the information to criminally investigate or prosecute any alcohol or drug abuse patient.[facility] HospitalIn the event this information is protected by the Federal Confidentiality of Alcohol and Drug Abuse Patient Records regulations: The Federal rules restrict any use of the information to criminally investigate or prosecute any alcohol or drug abuse patient.[facility] HospitalIn the event this information is protected by the Federal Confidentiality of Alcohol and Drug Abuse Patient Records regulations: The Federal rules restrict any use of the information to criminally investigate or prosecute any alcohol or drug abuse patient.[facility] HospitalIn the event this information is protected by the Federal Confidentiality of Alcohol and Drug Abuse Patient Records regulations: The Federal rules restrict any use of the information to criminally investigate or prosecute any alcohol or drug abuse patient.[facility] HospitalIn the event this information is protected by the Federal Confidentiality of Alcohol and Drug Abuse Patient Records regulations: The Federal rules restrict any use of the information to criminally investigate or prosecute any alcohol or drug abuse patient.[facility] HospitalIn the event this information is protected by the Federal Confidentiality of Alcohol and Drug Abuse Patient Records regulations: The Federal rules restrict any use of the information to criminally investigate or prosecute any alcohol or drug abuse patient.[facility] HospitalIn the event this information is protected by the Federal Confidentiality of Alcohol and Drug Abuse Patient Records regulations: The Federal rules restrict any use of the information to criminally investigate or prosecute any alcohol or drug abuse patient.[facility] HospitalIn the event this information is protected by the Federal Confidentiality of Alcohol and Drug Abuse Patient Records regulations: The Federal rules restrict any use of the information to criminally investigate or prosecute any alcohol or drug abuse patient.[facility] HospitalIn the event this information is protected by the Federal Confidentiality of Alcohol and Drug Abuse Patient Records regulations: The Federal rules restrict any use of the information to criminally investigate or prosecute any alcohol or drug abuse patient.[facility] HospitalIn the event this information is protected by the Federal Confidentiality of Alcohol and Drug Abuse Patient Records regulations: The Federal rules restrict any use of the information to criminally investigate or prosecute any alcohol or drug abuse patient.[facility] HospitalIn the event this information is protected by the Federal Confidentiality of Alcohol and Drug Abuse Patient Records regulations: The Federal rules restrict any use of the information to criminally investigate or prosecute any alcohol or drug abuse patient.[facility] HospitalIn the event this information is protected by the Federal Confidentiality of Alcohol and Drug Abuse Patient Records regulations: The Federal rules restrict any use of the information to criminally investigate or prosecute any alcohol or drug abuse patient.[facility] HospitalIn the event this information is protected by the Federal Confidentiality of Alcohol and Drug Abuse Patient Records regulations: The Federal rules restrict any use of the information to criminally investigate or prosecute any alcohol or drug abuse patient.[facility] HospitalIn the event this information is protected by the Federal Confidentiality of Alcohol and Drug Abuse Patient Records regulations: The Federal rules restrict any use of the information to criminally investigate or prosecute any alcohol or drug abuse patient.[facility] HospitalIn the event this information is protected by the Federal Confidentiality of Alcohol and Drug Abuse Patient Records regulations: The Federal rules restrict any use of the information to criminally investigate or prosecute any alcohol or drug abuse patient.[facility] HospitalIn the event this information is protected by the Federal Confidentiality of Alcohol and Drug Abuse Patient Records regulations: The Federal rules restrict any use of the information to criminally investigate or prosecute any alcohol or drug abuse patient.[facility] HospitalIn the event this information is protected by the Federal Confidentiality of Alcohol and Drug Abuse Patient Records regulations: The Federal rules restrict any use of the information to criminally investigate or prosecute any alcohol or drug abuse patient.[facility] HospitalIn the event this information is protected by the Federal Confidentiality of Alcohol and Drug Abuse Patient Records regulations: The Federal rules restrict any use of the information to criminally investigate or prosecute any alcohol or drug abuse patient.[facility] HospitalIn the event this information is protected by the Federal Confidentiality of Alcohol and Drug Abuse Patient Records regulations: The Federal rules restrict any use of the information to criminally investigate or prosecute any alcohol or drug abuse patient.[facility] HospitalIn the event this information is protected by the Federal Confidentiality of Alcohol and Drug Abuse Patient Records regulations: The Federal rules restrict any use of the information to criminally investigate or prosecute any alcohol or drug abuse patient.[facility] HospitalIn the event this information is protected by the Federal Confidentiality of Alcohol and Drug Abuse Patient Records regulations: The Federal rules restrict any use of the information to criminally investigate or prosecute any alcohol or drug abuse patient.[facility] HospitalIn the event this information is protected by the Federal Confidentiality of Alcohol and Drug Abuse Patient Records regulations: The Federal rules restrict any use of the information to criminally investigate or prosecute any alcohol or drug abuse patient.[facility] HospitalIn the event this information is protected by the Federal Confidentiality of Alcohol and Drug Abuse Patient Records regulations: The Federal rules restrict any use of the information to criminally investigate or prosecute any alcohol or drug abuse patient.[facility] HospitalIn the event this information is protected by the Federal Confidentiality of Alcohol and Drug Abuse Patient Records regulations: The Federal rules restrict any use of the information to criminally investigate or prosecute any alcohol or drug abuse patient.[facility] HospitalIn the event this information is protected by the Federal Confidentiality of Alcohol and Drug Abuse Patient Records regulations: The Federal rules restrict any use of the information to criminally investigate or prosecute any alcohol or drug abuse patient.[facility] HospitalIn the event this information is protected by the Federal Confidentiality of Alcohol and Drug Abuse Patient Records regulations: The Federal rules restrict any use of the information to criminally investigate or prosecute any alcohol or drug abuse patient.[facility] HospitalIn the event this information is protected by the Federal Confidentiality of Alcohol and Drug Abuse Patient Records regulations: The Federal rules restrict any use of the information to criminally investigate or prosecute any alcohol or drug abuse patient.[facility] HospitalIn the event this information is protected by the Federal Confidentiality of Alcohol and Drug Abuse Patient Records regulations: The Federal rules restrict any use of the information to criminally investigate or prosecute any alcohol or drug abuse patient.[facility] HospitalIn the event this information is protected by the Federal Confidentiality of Alcohol and Drug Abuse Patient Records regulations: The Federal rules restrict any use of the information to criminally investigate or prosecute any alcohol or drug abuse patient.[facility] HospitalIn the event this information is protected by the Federal Confidentiality of Alcohol and Drug Abuse Patient Records regulations: The Federal rules restrict any use of the information to criminally investigate or prosecute any alcohol or drug abuse patient.[facility] HospitalIn the event this information is protected by the Federal Confidentiality of Alcohol and Drug Abuse Patient Records regulations: The Federal rules restrict any use of the information to criminally investigate or prosecute any alcohol or drug abuse patient.[facility] HospitalIn the event this information is protected by the Federal Confidentiality of Alcohol and Drug Abuse Patient Records regulations: The Federal rules restrict any use of the information to criminally investigate or prosecute any alcohol or drug abuse patient.[facility] HospitalIn the event this information is protected by the Federal Confidentiality of Alcohol and Drug Abuse Patient Records regulations: The Federal rules restrict any use of the information to criminally investigate or prosecute any alcohol or drug abuse patient.[facility] HospitalIn the event this information is protected by the Federal Confidentiality of Alcohol and Drug Abuse Patient Records regulations: The Federal rules restrict any use of the information to criminally investigate or prosecute any alcohol or drug abuse patient.[facility] HospitalIn the event this information is protected by the Federal Confidentiality of Alcohol and Drug Abuse Patient Records regulations: The Federal rules restrict any use of the information to criminally investigate or prosecute any alcohol or drug abuse patient.[facility] HospitalIn the event this information is protected by the Federal Confidentiality of Alcohol and Drug Abuse Patient Records regulations: The Federal rules restrict any use of the information to criminally investigate or prosecute any alcohol or drug abuse patient.[facility] HospitalIn the event this information is protected by the Federal Confidentiality of Alcohol and Drug Abuse Patient Records regulations: The Federal rules restrict any use of the information to criminally investigate or prosecute any alcohol or drug abuse patient.[facility] HospitalIn the event this information is protected by the Federal Confidentiality of Alcohol and Drug Abuse Patient Records regulations: The Federal rules restrict any use of the information to criminally investigate or prosecute any alcohol or drug abuse patient.[facility] HospitalIn the event this information is protected by the Federal Confidentiality of Alcohol and Drug Abuse Patient Records regulations: The Federal rules restrict any use of the information to criminally investigate or prosecute any alcohol or drug abuse patient.[facility] HospitalIn the event this information is protected by the Federal Confidentiality of Alcohol and Drug Abuse Patient Records regulations: The Federal rules restrict any use of the information to criminally investigate or prosecute any alcohol or drug abuse patient.[facility] HospitalIn the event this information is protected by the Federal Confidentiality of Alcohol and Drug Abuse Patient Records regulations: The Federal rules restrict any use of the information to criminally investigate or prosecute any alcohol or drug abuse patient.[facility] HospitalIn the event this information is protected by the Federal Confidentiality of Alcohol and Drug Abuse Patient Records regulations: The Federal rules restrict any use of the information to criminally investigate or prosecute any alcohol or drug abuse patient.[facility] HospitalIn the event this information is protected by the Federal Confidentiality of Alcohol and Drug Abuse Patient Records regulations: The Federal rules restrict any use of the information to criminally investigate or prosecute any alcohol or drug abuse patient.[facility] HospitalIn the event this information is protected by the Federal Confidentiality of Alcohol and Drug Abuse Patient Records regulations: The Federal rules restrict any use of the information to criminally investigate or prosecute any alcohol or drug abuse patient.[facility] HospitalIn the event this information is protected by the Federal Confidentiality of Alcohol and Drug Abuse Patient Records regulations: The Federal rules restrict any use of the information to criminally investigate or prosecute any alcohol or drug abuse patient.[facility] HospitalIn the event this information is protected by the Federal Confidentiality of Alcohol and Drug Abuse Patient Records regulations: The Federal rules restrict any use of the information to criminally investigate or prosecute any alcohol or drug abuse patient.[facility] HospitalIn the event this information is protected by the Federal Confidentiality of Alcohol and Drug Abuse Patient Records regulations: The Federal rules restrict any use of the information to criminally investigate or prosecute any alcohol or drug abuse patient.[facility] HospitalIn the event this information is protected by the Federal Confidentiality of Alcohol and Drug Abuse Patient Records regulations: The Federal rules restrict any use of the information to criminally investigate or prosecute any alcohol or drug abuse patient.[facility] HospitalIn the event this information is protected by the Federal Confidentiality of Alcohol and Drug Abuse Patient Records regulations: The Federal rules restrict any use of the information to criminally investigate or prosecute any alcohol or drug abuse patient.[facility] HospitalIn the event this information is protected by the Federal Confidentiality of Alcohol and Drug Abuse Patient Records regulations: The Federal rules restrict any use of the information to criminally investigate or prosecute any alcohol or drug abuse patient.[facility] HospitalIn the event this information is protected by the Federal Confidentiality of Alcohol and Drug Abuse Patient Records regulations: The Federal rules restrict any use of the information to criminally investigate or prosecute any alcohol or drug abuse patient.[facility] HospitalIn the event this information is protected by the Federal Confidentiality of Alcohol and Drug Abuse Patient Records regulations: The Federal rules restrict any use of the information to criminally investigate or prosecute any alcohol or drug abuse patient.[facility] HospitalIn the event this information is protected by the Federal Confidentiality of Alcohol and Drug Abuse Patient Records regulations: The Federal rules restrict any use of the information to criminally investigate or prosecute any alcohol or drug abuse patient.[facility] HospitalIn the event this information is protected by the Federal Confidentiality of Alcohol and Drug Abuse Patient Records regulations: The Federal rules restrict any use of the information to criminally investigate or prosecute any alcohol or drug abuse patient.[facility] HospitalIn the event this information is protected by the Federal Confidentiality of Alcohol and Drug Abuse Patient Records regulations: The Federal rules restrict any use of the information to criminally investigate or prosecute any alcohol or drug abuse patient.[facility] HospitalIn the event this information is protected by the Federal Confidentiality of Alcohol and Drug Abuse Patient Records regulations: The Federal rules restrict any use of the information to criminally investigate or prosecute any alcohol or drug abuse patient.[facility] HospitalIn the event this information is protected by the Federal Confidentiality of Alcohol and Drug Abuse Patient Records regulations: The Federal rules restrict any use of the information to criminally investigate or prosecute any alcohol or drug abuse patient.[facility] HospitalIn the event this information is protected by the Federal Confidentiality of Alcohol and Drug Abuse Patient Records regulations: The Federal rules restrict any use of the information to criminally investigate or prosecute any alcohol or drug abuse patient.[facility] HospitalIn the event this information is protected by the Federal Confidentiality of Alcohol and Drug Abuse Patient Records regulations: The Federal rules restrict any use of the information to criminally investigate or prosecute any alcohol or drug abuse patient.[facility] HospitalIn the event this information is protected by the Federal Confidentiality of Alcohol and Drug Abuse Patient Records regulations: The Federal rules restrict any use of the information to criminally investigate or prosecute any alcohol or drug abuse patient.[facility] HospitalIn the event this information is protected by the Federal Confidentiality of Alcohol and Drug Abuse Patient Records regulations: The Federal rules restrict any use of the information to criminally investigate or prosecute any alcohol or drug abuse patient.[facility] HospitalIn the event this information is protected by the Federal Confidentiality of Alcohol and Drug Abuse Patient Records regulations: The Federal rules restrict any use of the information to criminally investigate or prosecute any alcohol or drug abuse patient.[facility] HospitalIn the event this information is protected by the Federal Confidentiality of Alcohol and Drug Abuse Patient Records regulations: The Federal rules restrict any use of the information to criminally investigate or prosecute any alcohol or drug abuse patient.[facility] HospitalIn the event this information is protected by the Federal Confidentiality of Alcohol and Drug Abuse Patient Records regulations: The Federal rules restrict any use of the information to criminally investigate or prosecute any alcohol or drug abuse patient.[facility] Reason for Visit (unrecogniz ed section and content) Reason Onset Date Comments Refill Request 03/31/2022 Reason Onset Date Comments Refill Request 04/21/2022 Reason Comments Multiple Missed Appointment Reason Comments 6 Month Exam Specialty Diagnoses / Procedures Referred By Lovely estrada Referred To Contact Family Practice / FAMILY MEDICINE Diagnoses 6 mo follow up /meds Procedures 4C MD Valeriy Ortega Rayanne, [address] [place] [address] Referral ID Status Reason Start Date Expiration Date Visits Re quested Visits Authorized [id number] Closed 05/05/2022 11/06/2022 1 1 Reason Comments [...] RSPSE SPMTRY PRE&POST-BRNCDILAT ADMStephani Vazquez PA-C [address] [place] [address] Respiratory [facility] [address] [place] [address] Referral ID Status Reason Start Date Expiration Date V isits Requested Visits Authorized [id number] Closed Auto-Generate d Referral 05/07/2022 11/06/2022 1 1 Reason Comments Social Work Services Reason Comments Recheck Specialty Diagnoses / Procedures Referred By Contac t Referred To Contact Family Practice / FAMILY MEDICINE Diagnoses 4 weeks follow up Procedures 4C MD Brigitte Ortega Jeffrey A, MD [address] [place] [id number] Referral ID Status Reason Start Date Expiration Date Visits Re quested Visits Authorized [id number] Closed 05/24/2022 11/06/2022 1 1 Reason Comments [facility] 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 verbal order reques t Reason Comments [...] med check Procedures 4C Leno Abrams MD [address] [place] [id number] Leno Briggs MD [address] [place] [id number] Referral ID Status Reason Start Date Expiration Date Visits Re quested Visits Authorized [id number] Closed 07/05/2022 11/06/2022 1 1 Reason Comments [...] type Procedures CONSULT TO URO GYNECOLOGY OFFICE/OUTPATIENT [facility] 60-74 MINUTES Madalyn Degroot APRN.CNM [address] [place] [address] Referral ID Status Reason Start Date Expiration Date Visits Requested Visits Authorized [id number] Pending Review PCP Requested Referral Auto-Generate d Referral 12/28/2022 12/28/2023 1 1 Reason Onset Date Comments Refill Request 01/05/2023 Reason Comments vaginal pain Reason Onset Date Comments Refill Request 01/18/2023 Reason Comments Consult Colovesical fistula Specialty Diagnoses / Procedures Referred By Contac t Referred To Contact Colon and Rectal Surgery Diagnoses Colovesical fistula Procedures CONSULT TO COLO-RECTAL SURGERY OFFICE/OUTPATIENT [facility] 60-74 MINUTES Eufemia Chapa, SYNCHRONIZER.[employer] [address] [place] [address] Referral ID Status Reason Start Date Expiration Date Visits Requested Visits Authorized [id number] Pending Review PCP Requested Referral 01/06/2023 01/06/2024 [...] dementia Procedures geriatric assessment Stephani Crooks [address] [place] [address] [facility] [address] [place] [address] Referral ID Status Reason Start Date Expiration Date V isits Requested Visits Authorized [id number] Pending Review 03/16/2023 09/12/2023 1 1 Reason Comments New Patient Evaluation for colov esical fistula Other Patient accompanied by Gail sister, Mariela daughter Reason Onset Date Comments Refill Request 04/10/2023 Specialty Diagnoses / Procedures Referred By Contac t Referred To Contact Radiology Diagnoses Memory loss Procedures CT head wo IV contrast Shantal Serrano, SYNCHRONIZER - [employer] [address] [facility] [address] [place] [address] Referral ID Status Reason Start Date Expiration Date Visits Re quested Visits Authorized [id number] Closed 04/05/2023 10/02/2023 1 1 Specialty Diagnoses / Procedures Referred By Contac t Referred To Contact 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] Procedures [place] COLONOSCOPY FLX DX W/COLLJ SPEC WHEN PFRMD COLONOSCOPY Samantha Nava MD [address] [place] [address] [facility] [address] [facility] [address] [place] [address] Referral ID Status Reason Start Date Expiration Date Visits Re quested Visits Authorized [id number] 1 1 Reason Comments Memory Loss Reason Comments Results Best # [phone]( Mariela, daughter)Discuss results of colonoscopy done 05/25/23 Reason Comments Med Refill Reason Comments Recheck Follow up 6 months Reason Onset Date Comments Med Refill 07/05/2023 Reason Onset Date Comments Refill Request 08/23/2023 Reason Onset Date Comments Cancelled Appointment 08/16/2023 Cancel miles ointment 10.10.23 2:45pm Reason Onset Date Comments change appointment 09/14/2023 Care Teams (unrecognized sec tion and content) Teaching Dietitian Relationship Specialty Start Date End Date Leno Briggs MD [facility] [place] [id number] PCP - General Family Practice 11/25/16 Teaching Dietitian Relationship Specialty Start Date End Date Leno Briggs MD [address] [place] [address], [place] [address] PCP - General Family Practice 11/25/16 Teaching Dietitian Relationship Specialty Start Date End Date Leno Briggs MD [address] [place] [address], [place] [address] PCP - General Family Practice 11/25/16 Teaching Dietitian Relationship Specialty Start Date End Date Leno Briggs MD [address] [place] [address], [place] [address] PCP - General Family Practice 11/25/16 Teaching Dietitian Relationship Specialty Start Date End Date Leno Briggs MD [address] [place] [address], [place] [address] PCP - General Family Practice 11/25/16 Teaching Dietitian Relationship Specialty Start Date End Date Leno Briggs MD [address] [place] [address], [place] [address] PCP - General Family Practice 11/25/16 Teaching Dietitian Relationship Specialty Start Date End Date Leno Briggs MD [address] [place] [address], [place] [address] PCP - General Family Practice 11/25/16 Teaching Dietitian Relationship Specialty Start Date End Date Leno Briggs MD [address] [place] [address] [place] [address] PCP - General Family Practice 11/25/16 Teaching Dietitian Relationship Specialty Start Date End Date Leno Briggs MD [address] [facility] [place] [address] PCP - General Family Practice 11/25/16 Teaching Dietitian Relationship Specialty Start Date End Date Leno Briggs MD [address] [facility] [place] [address] PCP - General Family Practice 11/25/16 Teaching Dietitian Relationship Specialty Start Date End Date Leno Briggs MD [facility] [place] [address] PCP - General Family Practice 11/25/16 Teaching Dietitian Relationship Specialty Start Date End Date Leno Briggs MD [address] [place] [address], [place] [address] PCP - General Family Practice 11/25/16 Teaching Dietitian Relationship Specialty Start Date End Date Leno Briggs MD [facility] [place] [address] PCP - General Family Practice 11/25/16 Teaching Dietitian Relationship Specialty Start Date End Date Leno Briggs MD [facility] [place] [address] PCP - General Family Practice 11/25/16 Teaching Dietitian Relationship Specialty Start Date End Date Leno Briggs MD [facility] [place] [address] PCP - General Family Practice 11/25/16 Teaching Dietitian Relationship Specialty Start Date End Date Leno Briggs MD [facility] [place] [address] PCP - General Family Practice 11/25/16 Teaching Dietitian Relationship Specialty Start Date End Date Leno Briggs MD [address] [place] [address], [place] [address] PCP - General Family Practice 11/25/16 Teaching Dietitian Relationship Specialty Start Date End Date Leno Briggs MD [address] [facility] [place] [address] PCP - General Family Practice 11/25/16 Teaching Dietitian Relationship Specialty Start Date End Date Leno Briggs MD [facility] [place] [address] PCP - General Family Practice 11/25/16 Teaching Dietitian Relationship Specialty Start Date End Date Leno Briggs MD [address] [place] [address], [place] [address] PCP - General Family Practice 11/25/16 Teaching Dietitian Relationship Specialty Start Date End Date Leno Briggs MD [address] [place] [address], [place] [address] PCP - General Family Medicine 11/25/16 Teaching Dietitian Relationship Specialty Start Date End Date Leno Briggs MD [address] [place] [address] [place] [address] PCP - General Family Medicine 11/25/16 Teaching Dietitian Relationship Specialty Start Date End Date Leno Briggs MD [address] [place] [address] [place] [address] PCP - General Family Medicine 11/25/16 Teaching Dietitian Relationship Specialty Start Date End Date Leno Briggs MD [address] [place] [address], [place] [address] PCP - General Family Medicine 11/25/16 Teaching Dietitian Relationship Specialty Start Date End Date Leno Briggs MD [address] [place] [address], [place] [address] PCP - General Family Medicine 11/25/16 Teaching Dietitian Relationship Specialty Start Date End Date Leno Briggs MD [address] [facility] [place] [address] PCP - General Family Medicine 11/25/16 Teaching Dietitian Relationship Specialty Start Date End Date Leno Briggs MD [address] [facility] [place] [address] PCP - General Family Medicine 11/25/16 Teaching Dietitian Relationship Specialty Start Date End Date Leno Briggs MD [facility] [place] [address] PCP - General Family Medicine 11/25/16 Teaching Dietitian Relationship Specialty Start Date End Date Leno Briggs MD [address] [place] [address], [place] [address] PCP - General Family Medicine 11/25/16 Teaching Dietitian Relationship Specialty Start Date End Date Leno Briggs MD [address] [place] [address], [place] [address] PCP - General Family Medicine 11/25/16 Teaching Dietitian Relationship Specialty Start Date End Date Leno Briggs MD [facility] [place] [address] PCP - General Family Medicine 11/25/16 Teaching Dietitian Relationship Specialty Start Date End Date Leno Briggs MD [facility] [place] [address] PCP - General Family Medicine 11/25/16 Teaching Dietitian Relationship Specialty Start Date End Date Leno Briggs MD [facility] [place] [address] PCP - General Family Medicine 11/25/16 Teaching Dietitian Relationship Specialty Start Date End Date Leno Briggs MD [facility] [place] [address] PCP - General Family Medicine 11/25/16 Teaching Dietitian Relationship Specialty Start Date End Date Leno Briggs MD [address] [facility] [place] [address] PCP - General Family Medicine 11/25/16 Teaching Dietitian Relationship Specialty Start Date End Date Leno Briggs MD [address] [facility] [place] [address] PCP - General Family Medicine 11/25/16 Teaching Dietitian Relationship Specialty Start Date End Date Leno Briggs MD [address] [facility] [place] [address] PCP - General Family Medicine 11/25/16 Teaching Dietitian Relationship Specialty Start Date End Date Leno Briggs MD [facility] [place] [address] PCP - General Family Medicine 11/25/16 Teaching Dietitian Relationship Specialty Start Date End Date Leno Briggs MD [facility] [place] [address] PCP - General Family Medicine 11/25/16 Teaching Dietitian Relationship Specialty Start Date End Date Leno Briggs MD [facility] [place] [address] PCP - General Family Medicine 11/25/16 Teaching Dietitian Relationship Specialty Start Date End Date Leno Briggs MD [facility] [place] [address] PCP - General Family Medicine 11/25/16 Teaching Dietitian Relationship Specialty Start Date End Date Leno Briggs MD [facility] [place] [address] PCP - General Family Medicine 11/25/16 Teaching Dietitian Relationship Specialty Start Date End Date Leno Briggs MD [facility] [place] [address] PCP - General Family Medicine 11/25/16 Teaching Dietitian Relationship Specialty Start Date End Date Leno Briggs MD [address] [address] [place] [address] PCP - General 04/01/19 Teaching Dietitian Relationship Specialty Start Date End Date Leno Briggs MD [address] [address] [place], [place] [id number] PCP - General 04/01/19 Teaching Dietitian Relationship Specialty Start Date End Date Leno Briggs MD [address] [place], [place] [id number] PCP - General 04/01/19 Teaching Dietitian Relationship Specialty Start Date End Date Leno Briggs MD [address] [place], [place] [id number] PCP - General 04/01/19 Teaching Dietitian Relationship Specialty Start Date End Date Leno Briggs MD [address] [place], [place] [id number] PCP - General 04/01/19 Teaching Dietitian Relationship Specialty Start Date End Date Leno Briggs MD [address] [address] [place] [address] PCP - General 04/01/19 Teaching Dietitian Relationship Specialty Start Date End Date Leno Briggs MD [address] [place], [place] [id number] PCP - General 04/01/19 Teaching Dietitian Relationship Specialty Start Date End Date Leno Briggs MD [address] [place] [address] PCP - General Family Medicine 11/25/16 Teaching Dietitian Relationship Specialty Start Date End Date Leno Briggs MD [address] [place] [address] PCP - General Family Medicine 11/25/16 Teaching Dietitian Relationship Specialty Start Date End Date Leno Briggs MD [address] [place] [address] PCP - General Family Medicine 11/25/16 Teaching Dietitian Relationship Specialty Start Date End Date Leno Briggs MD [address] [place] [address] PCP - General Family Medicine 11/25/16 Teaching Dietitian Relationship Specialty Start Date End Date Leno Briggs MD [address] [address] [place] [address] PCP - General 04/01/19 Teaching Dietitian Relationship Specialty Start Date End Date Leno Briggs MD [address] [address] [place] [address] PCP - General 04/01/19 Teaching Dietitian Relationship Specialty Start Date End Date Leno Briggs MD [address] [place] [address] PCP - General Family Medicine 11/25/16 Teaching Dietitian Relationship Specialty Start Date End Date Leno Briggs MD [address] [place] [address] PCP - General Family Medicine 11/25/16 Teaching Dietitian Relationship Specialty Start Date End Date Leno Briggs MD [address] [place] [address] PCP - General Family Medicine 11/25/16 Scheduled [...] BE BASED ON THE PRIMARY CLINICAL RECORDS. [employer] provides no warranty or guarantee of the accuracy or completeness of information in this document.
--- NOTE | 2023-11-06 18:47 | ED.RN ---
Pt confused, intermittently agitated, pulling at lines. Pulled IV out x2. difficult to redirect. Pt has been moaning since arrival, intermittently responds to commands, difficult to redirect.
[2023-11-06 18:52] LABS: CPK Total, Creatine Kinase 73 U/L (26-192); Ferritin 28 ng/mL (8-252); LDH 279 U/L (84-246); Magnesium 2.1 mg/dL (1.6-2.6)
[2023-11-06 18:56] LABS: Erythrocyte Sedimentation Rate 13 mm/hr (0-30)
[2023-11-06 18:58] LABS: Bedside Glucose 213 mg/dL (74-106)
[2023-11-06 19:12] LABS: D-Dimer Quantitative (DVT/PE) 0.69 FEU/ug/m (0.27-0.49)
[2023-11-06 19:13] LABS: BNP,B-Type NATRIURETIC PEPTIDE 263.1 pg/mL (0-100)
[2023-11-06] MEDS: 0.9% Normal Saline (1000mL) 1,000 ML 15 ML IV (20:17)
[2023-11-06] MEDS: Furosemide 20 MG/2 ML VIAL IV (20:25)
[2023-11-06] MEDS: 0.9% Saline Lock 10 ML Syringe IV (20:31)
[2023-11-06] MEDS: Insulin Lispro 100 UNIT/ML INSULN.PEN SC (20:36)
[2023-11-06 21:04] LABS: Troponin-I HS 71 pg/mL (3.0-54.0)
[2023-11-06] MEDS: Heparin Injection (Vial) 5,000 UNIT/ML VIAL 5000 UNIT SC (21:19)
[2023-11-06 21:28] LABS: Troponin-I HS 75 pg/mL (3.0-54.0)
[2023-11-06] MEDS: Remdesivir 200 MG in 0.9% Normal Saline (250mL Bag) 210 ML 250 MG IV (21:37)
[2023-11-06 22:37] LABS: Bedside Glucose 205 mg/dL (74-106)
[2023-11-06] MEDS: Pantoprazole Sodium 40 MG in 0.9% Normal Saline (100mL MB+) 100 ML 330 MG IV (23:08)
[2023-11-06] MEDS: Miconazole Nitrate 43 GM Bottle 1 APPLIC TOPICAL (23:09)
[2023-11-06] MEDS: Piperacil/Tazobactam 3.375 GM in 0.9% Normal Saline (50mL MB+) 50 ML IV (23:36)
[2023-11-07] VITALS (14 sets, daily range): BP systolic 131–158; BP diastolic 51–79; PULSE 68–87; RESP 14–22; TEMP 36.6; O2SAT 90–98; BMI 54.6
[2023-11-07] MEDS: Insulin Lispro 100 UNIT/ML INSULN.PEN SC ×2 (00:34→05:50)
[2023-11-07 00:57] LABS: Bedside Glucose 206 mg/dL (74-106)
--- NOTE | 2023-11-07 03:06 | PCM.HOSP.N ---
Hospitalist Note Received message from nursing staff around 2:55 AM to evaluate patient at bedside for worsening hypoxia and increasing agitation. Arrived at patient bedside a few minutes later. Patient was on high flow nasal cannula during the evening and while sleeping, nursing staff placed nonrebreather mask shortly prior to my arrival. Patient was alert but confused and exhibiting a mild degree of agitation. She was able to make eye contact with me but was not answering any questions appropriately. She was saturating in the high 90s on nonrebreather mask at 100%, did not have any increased work of breathing noted. Patient had moderate air movement bilaterally with mild upper airway wheezing on right. Breath sounds overall somewhat diminished, likely secondary to patient's body habitus. Heart rate was sinus rhythm around 80 bpm on the monitor. Remained at the bedside for about 5 to 10 minutes. During that time, patient was able to calm down somewhat and was less agitated. Per nursing staff, after 5 to 10 minutes patient was very close to her baseline level of mentation when she arrived to the floor earlier this evening. Patient has known history of TACO, has refused PAP therapy at home per family. Nursing staff note the patient was asleep shortly before this episode of agitation and oxygen desaturation occurred. Suspect patient may have had an apneic episode leading to this. Will give patient one-time dose of IV Haldol [address] the patient on BiPAP, will see how she tolerates this.
[2023-11-07 03:09] LABS: M R Staph aureus DNA By PCR Negative (Negative); Probe Check PASS; Specimen Processing Control PASS
[2023-11-07] MEDS: Haloperidol Lactate 5 MG/ML Vial 1 MG IV (03:30)
[2023-11-07] MEDS: Miconazole Nitrate 43 GM Bottle 1 APPLIC TOPICAL ×3 (05:47→20:44)
[2023-11-07] MEDS: Piperacil/Tazobactam 3.375 GM in 0.9% Normal Saline (50mL MB+) 50 ML IV ×3 (05:48→23:06)
[2023-11-07 06:22] LABS: Bedside Glucose 174 mg/dL (74-106)
[2023-11-07 06:45] LABS: Absolute Lymphocyte Count 0.42 X10^3/uL (0.83-4.51); Absolute Neutrophil Count 4.6 X10^3/uL (2.0-7.7); Hematocrit 31.4 % (37-47); Lymphocyte # 0.42 X10^3/ul (0.83-4.51); Lymphocyte % 7.4 % (19-41); Mean Corp Hgb Conc 25.5 g/dL (32-36); Mean Corpuscular Hgb 21.6 pg (27.0-32.0); Mean Corpuscular Volume 84.9 fL (81-99); Mean Platelet Vol. 10.8 fl (6.2-12.0); Monocyte% 10.6 % (0-10); NRBC Flagged by Analyzer 0.4 % (0-5); Neutrophil # 4.61 X10^3/uL (2.7-7.7); Neutrophil % 81.1 % (47-70); POSITIVE DIFFERENTIAL YES; Platelet Count 138 K/mm3 (150-450); RBC Distribution Width SD 52.6 fl (35.1-43.9); White Blood Count 5.7 K/mm3 (4.4-11.0)
[2023-11-07 07:03] LABS: Differential Indicated SCAN CRITERIA MET
[2023-11-07 07:09] LABS: ALB/GLOB Ratio 0.8 RATIO (0.9-2.4); AST(SGOT) 26 U/L (15-37); Alanine Aminotransfer ALT/SGPT 20 U/L (13-56); Albumin, Serum 2.8 g/dL (3.2-5.0); Alkaline Phosphatase 73 U/L (45-117); Anion Gap 1 (5-15); BUN 28 mg/dL (7-18); BUN/Creat Ratio 20.3 RATIO (10-20); Calcium,Total 8.1 mg/dL (8.5-10.1); Chloride 106 mmol/L (98-107); Cholesterol 75 mg/dL (200); Creatinine, Serum 1.38 mg/dL (0.55-1.02); EST Glomerular Filtration Rate 39 mL/min (>60); Est Glom Filt Rate - Afr Amer 47 mL/min (>60); Estimated Creatinine Clearance 28.92 ml/min; Globulin 3.4 g/dL (2.2-4.2); Glucose 189 mg/dL (74-106); High Density Lipoprotein 45 mg/dL; Potassium 4.3 mmol/L (3.5-5.1); Protein, Total 6.2 g/dL (6.4-8.2); Sodium Level 142 mmol/L (136-145); Triglycerides 53 mg/dL; Very Low Density Lipoprotein 11 mg/dL (5-40)
[2023-11-07] MEDS: Budesonide Respules 0.5 MG/2 ML AMPUL.NEB. INHALATION ×2 (07:30→20:19)
[2023-11-07 07:57] LABS: Differential Comment SCANNED
--- NOTE | 2023-11-07 08:04 | PCM.PN.HOSP ---
Reason for Visit Reason for Visit: Diagnoses COVID-19 (11/06/23) Objective Data Objective Data Vital Signs: Vital Signs Temp Pulse Resp BP Pulse Ox O2 Del Method O2 Flow Rate 97.9 F 75 20 H 154/79 H 91 Bi-pap 60 11/07/23 03:14 11/07/23 03:14 11/07/23 03:14 11/07/23 03:14 11/07/23 06:56 11/07/23 06:56 11/07/23 06:56 FiO2 70 11/07/23 03:14 Oxygen Flow Rate (L/min) 60 Oxygen Delivery Method Bi-pap Weight: 338 lb 6.553 oz Body Mass Index (BMI) 54.6 Intake & Output: Intake and Output for Last 24 Hours 11/05/23 11/06/23 11/07/23 23:59 23:59 23:59 Intake Total 410 / 410 50 / 50 Output Total 900 / 900 Balance 410 / 10 -850 / -850 Lab / Micro Data 11/07/23 06:27 11/07/23 06:27 Labs: Laboratory Results - last 24 hr 11/06/23 14:20: WBC 5.3, RBC 3.70 L, Hgb 8.3 L, Hct 29.6 L, MCV 80.0 L, MCH 22.4 L, MCHC 28.0 L, RDW Std Deviation 50.8 H, RDW Coeff of Esvin 17.4 H, Plt Count 161, MPV 10.7, Immature Gran % (Auto) 0.400, Neut % (Auto) 72.8 H, Lymph % (Auto) 12.4 L, Bledsoe % (Auto) 13.0 H, Eos % (Auto) 0.8, Baso % (Auto) 0.6, Absolute Neuts (auto) 3.9, Absolute Lymphs (auto) 0.66 L, Nucleated RBC % 0, ESR 13, D-Dimer Quant (PE/DVT) 0.69 H*, Sodium 141, Potassium 3.9, Chloride 103, Carbon Dioxide 35.0 H, Anion Gap 3 L, BUN 23 H, Creatinine 1.36 H, Estim Creat Clear Calc 28.20, Est GFR (MDRD) Af Amer 48 L, Est GFR (MDRD) Non-Af 39 L, BUN/Creatinine Ratio 16.9, Glucose 174 H, Calcium 8.4 L, Phosphorus 3.9, Magnesium 2.1 11/06/23 14:20: Magnesium 2.1, Ferritin 28, Total Bilirubin 0.70, Direct Bilirubin 0.27, AST 25, ALT 16, Alkaline Phosphatase 80, Lactate Dehydrogenase 279 H, Total Creatine Kinase 73, Troponin I High Sens 63 H, C-React Prot Ext Range 13.10 H, B-Natriuretic Peptide 263.1 H, Total Protein 6.5, Albumin 3.1 L, Globulin 3.4 11/06/23 14:35: Lactic Acid 1.1, Procalcitonin 0.24 H 11/06/23 14:50: Urine Color Red, Urine Clarity Sl. Cloudy, Urine pH 5.0, Ur Specific Charlotte 1.025, Urine Protein 100 H, Urine Glucose (UA) Normal, Urine Ketones 5 H, Urine Occult Blood 150 H, Urine Nitrite Positive H, Urine Bilirubin 6 H, Urine Urobilinogen 8 H, Ur Leukocyte Esterase 500 H, Urine RBC 25-50 SEEN, Urine WBC 5-10 SEEN, Ur Squamous Epith Cells 0 SEEN, Urine Bacteria 3+, Urine Mucus 0 SEEN 11/06/23 18:37: POC Glucose 213 H 11/06/23 19:40: Troponin I High Sens 71 H 11/06/23 19:58: POC Glucose 205 H 11/06/23 20:46: Troponin I High Sens 75 H 11/07/23 00:33: POC Glucose 206 H 11/07/23 00:55: MRSA (PCR) Negative 11/07/23 05:46: POC Glucose 174 H 11/07/23 06:27: WBC 5.7, RBC 3.70 L, Hgb 8.0 L, Hct 31.4 L, MCV 84.9 D, MCH 21.6 L, MCHC 25.5 L D, RDW Std Deviation 52.6 H, RDW Coeff of Esvin 17.0 H, Plt Count 138 L, MPV 10.8, Immature Gran % (Auto) 0.900, Neut % (Auto) 81.1 H, Lymph % (Auto) 7.4 L, Bledsoe % (Auto) 10.6 H, Eos % (Auto) 0.0, Baso % (Auto) 0.0, Absolute Neuts (auto) 4.6, Absolute Lymphs (auto) 0.42 L, Nucleated RBC % 0.4, Differential Comment SCANNED, Sodium 142, Potassium 4.3, Chloride 106, Carbon Dioxide 35.0 H, Anion Gap 1 L, BUN 28 H, Creatinine 1.38 H, Estim Creat Clear Calc 28.92, Est GFR (MDRD) Af Amer 47 L, Est GFR (MDRD) Non-Af 39 L, BUN/Creatinine Ratio 20.3 H, Glucose 189 H, Calcium 8.1 L, Total Bilirubin 0.40, AST 26, ALT 20, Alkaline Phosphatase 73, Total Protein 6.2 L, Albumin 2.8 L, Globulin 3.4, Albumin/Globulin Ratio 0.8 L, Triglycerides 53, Cholesterol 75, LDL Cholesterol 19, VLDL Cholesterol 11, HDL Cholesterol 45 Micro: Microbiology 11/07/23 00:55 Mucosa - Nasopharyngeal Respiratory Panel (PCR) - Final 11/06/23 14:50 Urine Catheter - Rapp Legionella Antigen - Final 11/06/23 14:50 Urine Catheter - Rapp Streptococcus pneumoniae Antigen (M - Final 11/06/23 14:27 Mucosa - Nasopharyngeal SARS-CoV-2, Influenza & RSV (PCR) - Final SARS-CoV-2 (COVID 19) Radiography Diagnostic Testing: Radiology Impression Chest X-Ray 11/06/23 14:46 IMPRESSION: Right sided pneumonia. Electronically Signed: Mitch Muniz MD at 15:18 EST Reading Location ID and State: Formerly named [facility] / [place] , Service support , Physical Exam Narrative Seen and examined. Patient is on BiPAP, short of breath. Bilateral lower extremity swelling/edema. Denies chest pain. Hard to take history on BiPAP/respiratory distress. Physical exam General: Awake. Orientation cannot be ascertained. Confused. HEENT: Atraumatic, PERRLA, EOMI, Normocephalic Oral: On BiPAP. Neck: Supple, No JVD, Negative Carotid Bruits Lungs: Air entry diminished in bilateral lung bases. Bilateral rhonchi. No respiratory distress Cardiovascular: Regular rate, Regular Rhythm, Normal S1, Normal S2, No murmurs Abdomen: Bowel Sounds Present, Soft, Non Tender, Non-Distended : No renal angle tenderness. No suprapubic tenderness. Extremities: Bilateral 3+ lower extremity edema capillary Refill Less than 3 Seconds Skin: No rashes, No breakdown Musculoskeletal: ROM restricted. No Tenderness to Palpation of Joints or Extremities Neurological: Generalized confusion, no focal exam. Psych/Mental Status: Flat affect. Assessment & Plan Assessment/Plan (1) COVID-19: PLAN: Plan The patient is an 83 y/o F who was admitted through ED brought by EMS for altered mental status, shortness of breath for 2 days, mild cough, hypoxia pulse ox 78% on room air at home. Patient not on home oxygen. Her daughter said she also had increased concern for UTI as patient has colovesical fistula. Patient's daughter was recently diagnosed with COVID. Patient has dementia. #1. Acute Encephalopathy secondary to Acute Hypoxic Respiratory Failure secondary to RLL Pneumonia secondary to Acute COVID-19 and concern of concurrent superimposed Bacterial RLL Pneumonia, possibly aspiration as well as UTI: Patient is being admitted in PCU. Currently on BiPAP. Enhanced droplet precaution for COVID. On IV Decadron and remdesivir. ID consulted.On IV ceftriaxone. Inflammatory markers are elevated including LDH, BNP. Procalcitonin 0.24. Lactic Olivier more. #2. Indeterminant troponins, exact etiology unclear: Troponins are 63, 71 and 75 flat and intermittent. Patient denies chest pain. EKG in ED no acute evidence of ischemia, CXR w/ concern for right lower lobe pneumonia and possible mild overload. Most likely due to acute myocardial injury/increased cardiac demand from pulmonary infection. Patient on aspirin. #3. Acute Complicated Urinary Tract Infection with Colovesical fistula: UA shows LE 500, RBC 25-50 cells, WBC 5-10 cells, bacteria 3+, nitrite positive. Prelim urine culture shows GNR lactose x ray physician, follow full urine culture. Patient had IV ceftriaxone in ED and then started on IV Zosyn. Blood cultures x 2 pending. #4. HF unclear about its etiology, type and classification but clinically seems decompensated: BNP elevated. Furosemide 40 mg IV twice daily. Heart failure core measures including intake and output, fluid restriction less than 1500 mL, daily weight monitoring, kidney and electrolytes monitoring. Hold for 2D echo as patient is on strict isolation. #5. Diabetes mellitus type II: Hold oral home regimen, currently n.p.o. status secondary to encephalopathy, while n.p.o. maintain every 6 hours accu checks w/ ISS. #6. Chronic Kidney Disease Stage IIIa: Admission BUN/Cr 23/1.36, baseline renal function does not appear to be available in the system however she does have a chart reported history of stage IIIa chronic kidney disease and the GFR currently would be consistent with this, will continue to closely monitor especially given IV Lasix usage. #7. Dementia with mood disturbance chart reported: Complicates presentation, normally on donepezil, holding, will attempt a place near nursing station with fall and aspiration precautions, PT/OT/case management consulted for discharge planning. Given encephalopathy holding all oral medicines as noted. #8. Chronic COPD: Complicates presentation, as noted currently maintained on supplementation, will attempt BiPAP nightly, will transition to ATC budesonide therapy, PRN albuterol, HOB, IS parameters. #9. Anxiety and depression: Temporarily holding patient home mirtazapine as well as sertraline home regimen given unsafe oral intake, resume once clinically appropriate. #10. Hypertension: Holding oral regimen as noted, maintain on IV Lasix, PRN hydralazine. #11. Hyperlipidemia: Temporally holding oral regimen as noted, add back oral statin once appropriate, FLP in AM. #12. TACO: Will attempt BiPAP nightly if patient will tolerate but she does have underlying history and per family refuses to wear any PAP therapy. #13. Morbid Obesity: Weight loss and lifestyle changes encouraged. #14. DVT prophylaxis: Heparin. #15. CODE status: Patient does not have healthcare power of trial attorney or living will in place. Patient's daughters would be her decision makers however if this was necessary. Discussed CODE status at length including difference between FULL code, DNR-CCA and DNR-CC status. Following discussions about the differences in these status, requested Full Code status. Total time of the visit including total time spent in counseling or coordination of care, (more than 50% of the total time, spent in obtaining medical information from nurses and other ancillary care providers,explaining to the patient about labs, imaging, diagnosis and management of active complex medical conditions), complicated clinical presentation, multiple active disease, review of labs and imaging is 40 minutes. Charges/Coding Visit Charges Inpatient E&M: 77557 Subs Hosp L3
[2023-11-07] MEDS: Pantoprazole Sodium 40 MG in 0.9% Normal Saline (100mL MB+) 100 ML 330 MG IV ×2 (10:09→20:56)
[2023-11-07] MEDS: Furosemide 20 MG/2 ML VIAL IV (10:10)
[2023-11-07] MEDS: dexAMETHasone 4 MG/ML Vial 6 MG IV (10:10)
[2023-11-07] MEDS: Heparin Injection (Vial) 5,000 UNIT/ML VIAL 5000 UNIT SC ×2 (10:10→21:01)
[2023-11-07] MEDS: 0.9% Saline Lock 10 ML Syringe IV (10:14)
--- NOTE | 2023-11-07 13:38 | NURSING ---
Physician notified of 1/2 positive blood culture result.
[2023-11-07 13:46] LABS: Bedside Glucose 108 mg/dL (74-106)
--- NOTE | 2023-11-07 14:00 | NURSING ---
Attempted to place patient on 8L high flow O2. While in the room saturations remained 92 and above. Pt would not leave nasal cannula on, saturations dropped to low 70s on room air. Replaced nasal cannula and turned up to 10L high flow with minimal improvement in saturation. Placed back on BiPap.
[2023-11-07] MEDS: Furosemide 40 MG/4 ML Vial IV (14:17)
--- NOTE | 2023-11-07 14:27 | NURSING ---
Attempted to call patient's daughter for update, line ringing busy.
[2023-11-07 17:16] LABS: Bedside Glucose 138 mg/dL (74-106)
[2023-11-07] MEDS: Ipratropium/Albuterol Sulfate 3 ML AMPUL.NEB INHALATION (20:19)
[2023-11-07] MEDS: Menthol/Lanolin/Calamine/Znox 113 GM Tube 1 APPLIC TOPICAL (20:44)
[2023-11-07] MEDS: Acetaminophen 325 MG Tablet 650 MG PO (20:56)
--- NOTE | 2023-11-07 22:14 | NURSING ---
Sent text message to Dr subramanian regarding patient is very restless, keeps pulling off bipap mask wants to go home. Bipap mask, tele, and pulse ox have been reapplied 4x.
--- NOTE | 2023-11-07 22:18 | NURSING ---
Dr Johnson returned call. Order for vistaril 100 mg IM received
[2023-11-07] MEDS: Remdesivir 100 MG in 0.9% Normal Saline (250mL Bag) 230 ML 250 MG IV (22:45)
[2023-11-07] MEDS: hydrOXYzine 50 MG/ML Vial 100 MG IM (23:17)
[2023-11-07] MEDS: Ondansetron 4 MG/2 ML Vial IV (23:18)
[2023-11-07 23:47] LABS: Bedside Glucose 119 mg/dL (74-106)
[2023-11-08] VITALS (28 sets, daily range): BP systolic 104–155; BP diastolic 51–75; PULSE 53–81; RESP 12–95; TEMP 36.4–37.5; O2SAT 20–98; BMI 54.0
[2023-11-08] MEDS: Haloperidol Lactate 5 MG/ML Vial 2 MG IV (01:54)
[2023-11-08] MEDS: Miconazole Nitrate 43 GM Bottle 1 APPLIC TOPICAL ×3 (06:34→21:11)
[2023-11-08] MEDS: Piperacil/Tazobactam 3.375 GM in 0.9% Normal Saline (50mL MB+) 50 ML IV ×2 (06:35→13:30)
[2023-11-08 07:00] LABS: Bedside Glucose 90 mg/dL (74-106)
[2023-11-08] MEDS: Ipratropium/Albuterol Sulfate 3 ML AMPUL.NEB INHALATION ×3 (07:30→20:10)
[2023-11-08] MEDS: Budesonide Respules 0.5 MG/2 ML AMPUL.NEB. INHALATION (07:30)
--- NOTE | 2023-11-08 07:49 | PN.HOSP_ITS ---
Reason for Visit Reason for Visit: Diagnoses COVID-19 (11/06/23) Objective Data Objective Data Vital Signs: Vital Signs Temp Pulse Resp BP Pulse Ox O2 Del Method O2 Flow Rate 97.5 F L 70 18 111/57 L 94 Bi-pap 60 11/08/23 04:00 11/08/23 05:00 11/08/23 05:00 11/08/23 04:00 11/08/23 05:00 11/08/23 04:00 11/07/23 06:56 FiO2 40 11/08/23 05:00 Oxygen Flow Rate (L/min) 60 Oxygen Delivery Method Bi-pap Weight: 334 lb 10.587 oz Body Mass Index (BMI) 54.0 Intake & Output: Intake and Output for Last 24 Hours 11/06/23 11/07/23 11/08/23 23:59 23:59 23:59 Intake Total 410 / 410 370 / 370 350 / 350 Output Total 3000 / 3300 550 / 550 Balance 410 / 10 -2630 / -2930 -200 / -200 Lab / Micro Data 11/07/23 06:27 11/07/23 06:27 Labs: Laboratory Results - last 24 hr 11/06/23 14:50: Urine Color Red, Urine Clarity Sl. Cloudy, Urine pH 5.0, Ur Specific [place] 1.025, Urine Protein 100 H, Urine Glucose (UA) Normal, Urine Ketones 5 H, Urine Occult Blood 150 H, Urine Nitrite Positive H, Urine Bilirubin 6 H, Urine Urobilinogen 8 H, Ur Leukocyte Esterase 500 H, Urine RBC 25-50 SEEN, Urine WBC 5-10 SEEN, Ur Squamous Epith Cells 0 SEEN, Urine Bacteria 3+, Urine Mucus 0 SEEN 11/07/23 06:27: Differential Comment SCANNED 11/07/23 13:02: POC Glucose 108 H 11/07/23 16:52: POC Glucose 138 H 11/07/23 23:28: POC Glucose 119 H 11/08/23 06:40: POC Glucose 90 Micro: Microbiology 11/06/23 14:20 Blood Culture (Wb) - Left Hand Blood Culture - Preliminary 11/06/23 14:50 Urine Catheter - Catheter Urine Culture - Final Escherichia coli Pseudomonas aeruginosa 11/06/23 14:30 Blood Culture (Wb) - Anticubital Left Blood Culture - Preliminary 11/07/23 00:55 Mucosa - Nasopharyngeal Respiratory Panel (PCR) - Final 11/06/23 14:50 Urine Catheter - Rapp Legionella Antigen - Final 11/06/23 14:50 Urine Catheter - Rapp Streptococcus pneumoniae Antigen (M - Final 11/06/23 14:27 Mucosa - Nasopharyngeal SARS-CoV-2, Influenza & RSV (PCR) - Final SARS-CoV-2 (COVID 19) Physical Exam Narrative Seen and examined. Patient on AVAPS/BiPAP throughout the night. Patient is on BiPAP, short of breath. Bilateral lower extremity swelling/edema. Denies chest pain. Hard to take history on BiPAP/respiratory distress. Had Haldol 2 mg IV and hydroxyzine 100 mg IM at night. Physical exam General: Confused drowsy, obtunded. On AVAPS HEENT: Atraumatic, PERRLA, EOMI, Normocephalic Oral: On BiPAP. Neck: Supple, No JVD, Negative Carotid Bruits Lungs: Air entry diminished in bilateral lung bases. Bilateral rhonchi. No respiratory distress Cardiovascular: Sinus rhythm, Normal S1, Normal S2, No murmurs Abdomen: Bowel Sounds Present, Soft, Non Tender, Non-Distended : No renal angle tenderness. No suprapubic tenderness. Extremities: Bilateral 3+ lower extremity edema capillary Refill Less than 3 Seconds Skin: No rashes, No breakdown Musculoskeletal: ROM restricted. No Tenderness to Palpation of Joints or Extremities Neurological: Generalized confusion, no focal exam. Psych/Mental Status: Flat affect. Assessment & Plan Assessment/Plan (1) COVID-19: PLAN: Plan The patient is an 83 y/o F who was admitted through ED brought by EMS for altered mental status, shortness of breath for 2 days, mild cough, hypoxia pulse ox 78% on room air at home. Patient not on home oxygen. Her daughter said she also had increased concern for UTI as patient has colovesical fistula. Patient's daughter was recently diagnosed with COVID. Patient has dementia. #1. Acute Encephalopathy secondary to Acute Hypoxic Respiratory Failure secondary to RLL Pneumonia secondary to Acute COVID-19 and concern of concurrent superimposed Bacterial RLL Pneumonia, possibly aspiration as well as UTI: Patient is being admitted in PCU. Currently on BiPAP. Enhanced droplet precaution for COVID. On IV Decadron and remdesivir. ID consulted.On IV ceftriaxone. Inflammatory markers are elevated including LDH, BNP. Procalcitonin 0.24. Lactic acid normal. 11/08/2023: Patient was confused and disoriented yesterday and had Haldol and hydroxyzine. Patient is still confused and disoriented. No meaningful conversation possible. On AVAPS 450 mL. ABG done 7.3 0/60 28.6 on AVAPS 40% FiO2. Discussed with the auto service station attendant and consulted for same and patient is transferred to ICU for further intensive monitoring and management. #2. Indeterminant troponins, exact etiology unclear: Troponins are 63, 71 and 75 flat and intermittent. Patient denies chest pain. EKG in ED no acute evidence of ischemia, CXR w/ concern for right lower lobe pneumonia and possible mild overload. Most likely due to acute myocardial injury/increased cardiac demand from pulmonary infection. Patient on aspirin. 11-08-23: Although detail history not obtainable but patient does not complain of chest pain. #3. Acute Complicated Urinary Tract Infection with Colovesical fistula: UA shows LE 500, RBC 25-50 cells, WBC 5-10 cells, bacteria 3+, nitrite positive. Prelim urine culture shows GNR lactose machine rug cleaner, follow full urine culture. Patient had IV ceftriaxone in ED and then started on IV Zosyn. Blood cultures x 2 pending. 11-08: Preliminary culture shows E. coli and Pseudomonas aeruginosa. E. coli 80,000-100,000. Pseudomonas less than 1000. Continue IV Zosyn. #4. HF unclear about its etiology, type and classification but clinically seems decompensated: BNP elevated. Furosemide 40 mg IV twice daily. Heart failure core measures including intake and output, fluid restriction less than 1500 mL, daily weight monitoring, kidney and electrolytes monitoring. Hold for 2D echo as patient is on strict isolation. #5. Diabetes mellitus type II: Hold oral home regimen, currently n.p.o. status secondary to encephalopathy, while n.p.o. maintain every 6 hours accu checks w/ ISS. #6. Chronic Kidney Disease Stage IIIa: Admission BUN/Cr 29/11.36, baseline renal function does not appear to be available in the system however she does have a chart reported history of stage IIIa chronic kidney disease and the GFR currently would be consistent with this, will continue to closely monitor especially given IV Lasix usage. 11/08/2023: Patient has Rapp catheter. Dark, concentrated yellow-colored urine. Continue Lasix. #7. Dementia with mood disturbance chart reported: Complicates presentation, normally on donepezil, holding, will attempt a place near nursing station with fall and aspiration precautions, PT/OT/case management consulted for discharge planning. Given encephalopathy holding all oral medicines as noted. #8. COPD: Complicates presentation, as noted currently maintained on supplementation, will attempt BiPAP nightly, will transition to ATC budesonide therapy, PRN albuterol, HOB, IS parameters. #9. Anxiety and depression: Temporarily holding patient home mirtazapine as well as sertraline home regimen given unsafe oral intake, resume once clinically appropriate. #10. Hypertension: Holding oral regimen as noted, maintain on IV Lasix, PRN hydralazine. #11. Hyperlipidemia: Temporally holding oral regimen as noted, add back oral statin once appropriate, FLP in AM. #12. TACO: attempt BiPAP nightly if patient will tolerate but she does have underlying history and per family refuses to wear any PAP therapy. #13. Morbid Obesity: Weight loss and lifestyle changes encouraged. #14. DVT prophylaxis: Heparin. #15. CODE status: Patient does not have healthcare power of claim attorney or living will in place. Patient's daughters would be her decision makers however if this was necessary. Discussed CODE status at length including difference between FULL code, DNR-CCA and DNR-CC status. Following discussions about the differences in these status, requested Full Code status. I talked to the patient's daughter Mrs. Aggie Thompson and gave the clinical update regarding ABG, respiratory failure, encephalopathy and moving her to ICU. Six Color Press Operator consult. She states that she has recently diagnosed with early s tage of Alzheimer's dementia. She said her sister Mrs. Brandy Blackwell will be the lead material handler to notify although she is not designated power of claim attorney for health. Total time spent 50 minutes in conversation Total time of the visit including total time spent in counseling or coordination of care, (more than 50% of the total time, spent in obtaining medical information from nurses and other ancillary care providers,explaining to the patient about labs, imaging, diagnosis and management of active complex medical conditions), complicated clinical presentation, multiple active disease, review of labs and imaging is 45 minutes. Microbiology Past 72 Hours 11/06/23 14:20 Blood Culture (Wb) - Left Hand Blood Culture - Preliminary 11/06/23 14:50 Urine Catheter - Catheter Urine Culture - Final Escherichia coli Pseudomonas aeruginosa 11/06/23 14:30 Blood Culture (Wb) - Anticubital Left Blood Culture - Preliminary 11/07/23 00:55 Mucosa - Nasopharyngeal Respiratory Panel (PCR) - Final 11/06/23 14:50 Urine Catheter - Rapp Legionella Antigen - Final 11/06/23 14:50 Urine Catheter - Rapp Streptococcus pneumoniae Antigen (M - Final 11/06/23 14:27 Mucosa - Nasopharyngeal SARS-CoV-2, Influenza & RSV (PCR) - Final SARS-CoV-2 (COVID 19) Laboratory Results 11/06/23 14:50: Urine Color Red, Urine Clarity Sl. Cloudy, Urine pH 5.0, Ur Specific [place] 1.025, Urine Protein 100 H, Urine Glucose (UA) Normal, Urine Ketones 5 H, Urine Occult Blood 150 H, Urine Nitrite Positive H, Urine Bilirubin 6 H, Urine Urobilinogen 8 H, Ur Leukocyte Esterase 500 H, Urine RBC 25-50 SEEN, Urine WBC 5-10 SEEN, Ur Squamous Epith Cells 0 SEEN, Urine Bacteria 3+, Urine Mu cus 0 SEEN 11/07/23 13:02: POC Glucose 108 H 11/07/23 16:52: POC Glucose 138 H 11/07/23 23:28: POC Glucose 119 H 11/08/23 06:40: POC Glucose 90 11/08/23 07:40: WBC 6.1, RBC 3.80 L, Hgb 8.3 L, Hct 31.4 L, MCV 82.6, MCH 21.8 L , MCHC 26.4 L, RDW Std Deviation 50.6 H, RDW Coeff of Esvin 17.1 H, Plt Count TNP, MPV 11.2, Immature Gran % (Auto) 0.700, Neut % (Auto) 77.7 H, Lymph % (Auto) 13.7 L, [place] % (Auto) 7.5, Eos % (Auto) 0.2, Baso % (Auto) 0.2, Absolute Neuts (auto) 4.8, Absolute Lymphs (auto) 0.84, Nucleated RBC % 0.3, Platelet Estimate Oct,11/08/23 08:33: Specimen Type ART, Sample Site R Radial, pH 7.30 L, Bicarbonate Actual 38.6 H, Total CO2 41, Base Excess 12 H, O2 Saturation 87 L, O2 % 40.0, ABG pCO2 78.0 H*, ABG pO2 61 L, [place]aka Test Positive, Respiration Rate 14, O2 Delivery Device BiPAP, Vent Mode Not entered, Tidal Volume 450.0, Crit Call To/Read Back Yes, Blood Gas Notified Whom miguelina Blood Gas Notified Time 08:36:19, Clinical Comments avaps Charges/Coding Visit Charges Inpatient E&M: 67070 Subs Hosp L3
[2023-11-08 08:30] LABS: Absolute Lymphocyte Count 0.84 X10^3/uL (0.83-4.51); Absolute Neutrophil Count 4.8 X10^3/uL (2.0-7.7); Basophil# 0.01 X10^3/uL; Basophil% 0.2 % (0-1); Eosinophil# 0.01 X10^3/uL; Eosinophils% 0.2 % (0-5); Hematocrit 31.4 % (37-47); Hemoglobin 8.3 g/dL (12.0-15.0); Lymphocyte # 0.84 X10^3/ul (0.83-4.51); Lymphocyte % 13.7 % (19-41); Mean Corp Hgb Conc 26.4 g/dL (32-36); Mean Corpuscular Hgb 21.8 pg (27.0-32.0); Mean Corpuscular Volume 82.6 fL (81-99); Mean Platelet Vol. 11.2 fl (6.2-12.0); Monocyte# 0.46 X10^3/uL; Monocyte% 7.5 % (0-10); NRBC Flagged by Analyzer 0.3 % (0-5); Neutrophil # 4.76 X10^3/uL (2.7-7.7); Neutrophil % 77.7 % (47-70); POSITIVE COUNT YES; RBC Distribution Width CV 17.1 % (11.6-14.6); RBC Distribution Width SD 50.6 fl (35.1-43.9); White Blood Count 6.1 K/mm3 (4.4-11.0)
[2023-11-08 08:38] LABS: Allen Test Positive; Base Excess 12 mmol/L (-2 to +2); Bicarbonate 38.6 mmol/L (22-26); Blood Gas Specimen Type ART; Comment avaps; Mode Not entered; O2 Delivery Device BiPAP; PO2 61 mmHG (75-100); RR 14; SITE R Radial; SO2 87 % (95-99); Total Carbon Dioxide 41 mmol/L
[2023-11-08 08:58] LABS: Differential Indicated SCAN CRITERIA MET
[2023-11-08 08:59] LABS: Platelet Estimate SLT DEC (ADEQ)
--- NOTE | 2023-11-08 09:05 | ECHOD_ITS ---
Reason For Study: SOB, swelling, COVID Procedure This was a 2D Doppler, Color Flow transthoracic echocardiogram. Exam performed portable in ICU/CCU. Left Ventricle Normal size and thickness. The left ventricular ejection fraction is 65 %. Normal diastology for age. Right Ventricle Normal right ventricle. Atria The left and right atria are normal. Mitral Valve Trivial mitral valve insufficiency. Tricuspid Valve Trivial tricuspid valve insufficiency. Unable to estimate RV systolic pressure due to insufficient tricuspid regurgitant envelope. Aortic Valve Trisinus/trileaflet aortic valve. Pulmonic Valve The pulmonic valve is not well visualized. Great Vessels Normal sized aortic root. Pericardium/Pleural Small pericardial effusion. MMode/2D Measurements & Calculations LVIDd: 4.2 cm IVSd: 0.89 cm Ao root diam: 3.0 cm LVIDs: 2.5 cm LVPWd: 0.95 cm RVDd: 3.9 cm FS: 39.8 % LAV(MOD-bp): 43.6 ml LVAd ap4: 25.1 cm2 LVAd ap2: 22.1 cm2 LAV(MOD-bp) Indexed: 17.5 ml/m2 LVLd ap4: 8.1 cm LVLd ap2: 7.8 cm LAV(MOD-sp2): 42.2 ml EDV(MOD-sp4): 64.4 ml EDV(MOD-sp2): 52.0 ml LAV(MOD-sp4): 45.5 ml EDV(sp4-el): 66.3 ml EDV(sp2-el): 53.2 ml LVAs ap4: 11.4 cm2 LVAs ap2: 11.8 cm2 LVLs ap4: 6.5 cm LVLs ap2: 6.8 cm ESV(MOD-sp4): 18.1 ml ESV(MOD-sp2): 18.3 ml ESV(sp4-el): 16.9 ml ESV(sp2-el): 17.5 ml EF(MOD-sp4): 71.8 % EF(MOD-sp2): 64.7 % EF(sp4-el): 74.5 % SV(MOD-sp4): 46.2 ml SV(MOD-sp2): 33.6 ml SV(sp4-el): 49.3 ml LA dimension(2D): 4.3 cm LA A4 area: 19.1 cm2 RA A4 area: 19.2 cm2 Doppler Measurements & Calculations MV E max vance: 84.3 cm/sec Lat Peak E' Vance: 6.6 cm/sec Med Peak E' Vance: 6.6 cm/sec MV A max vance: 97.2 cm/sec E/E' lat: 12.8 E/E' med: 12.8 MV E/A: 0.87 Ao V2 max: 182.6 cm/sec LV V1 max: 141.5 cm/sec PA V2 max: 100.0 cm/sec Ao max P.3 mmHg LV V1 max P.0 mmHg TR max vance: 257.4 cm/sec TR max P.5 mmHg ECHO/Echo Complete Interpretation Summary The left ventricular ejection fraction is 65 %. Small pericardial effusion. Ordering Physician: Sha Sharpe Referring Physician: Leno Son Performed By: Betsey Hanks RDCS
[2023-11-08 09:09] LABS: ALB/GLOB Ratio 0.8 RATIO (0.9-2.4); AST(SGOT) 30 U/L (15-37); Alanine Aminotransfer ALT/SGPT 24 U/L (13-56); Albumin, Serum 2.7 g/dL (3.2-5.0); Alkaline Phosphatase 64 U/L (45-117); Anion Gap 4 (5-15); BUN 30 mg/dL (7-18); BUN/Creat Ratio 23.8 RATIO (10-20); Calcium,Total 8.3 mg/dL (8.5-10.1); Chloride 105 mmol/L (98-107); Creatinine, Serum 1.26 mg/dL (0.55-1.02); EST Glomerular Filtration Rate 43 mL/min (>60); Est Glom Filt Rate - Afr Amer 52 mL/min (>60); Estimated Creatinine Clearance 31.67 ml/min; Globulin 3.3 g/dL (2.2-4.2); Glucose 89 mg/dL (74-106); Magnesium 2.5 mg/dL (1.6-2.6); Phosphorus 3.2 mg/dL (2.5-4.9); Potassium 3.8 mmol/L (3.5-5.1); Sodium Level 144 mmol/L (136-145)
[2023-11-08] MEDS: dexAMETHasone 4 MG/ML Vial 6 MG IV (09:15)
[2023-11-08] MEDS: 0.9% Saline Lock 10 ML Syringe IV ×2 (09:15→10:05)
[2023-11-08] MEDS: Pantoprazole Sodium 40 MG in 0.9% Normal Saline (100mL MB+) 100 ML 330 MG IV ×2 (09:15→22:24)
[2023-11-08] MEDS: Furosemide 40 MG/4 ML Vial IV ×2 (09:15→17:23)
[2023-11-08] MEDS: Menthol/Lanolin/Calamine/Znox 113 GM Tube 1 APPLIC TOPICAL ×4 (10:05→21:11)
[2023-11-08] MEDS: Heparin Injection (Vial) 5,000 UNIT/ML VIAL 5000 UNIT SC ×2 (10:06→21:11)
[2023-11-08] MEDS: Aspirin 300 MG Suppository RC (10:13)
[2023-11-08] MEDS: 0.9% Normal Saline (250mL Bag) 250 ML 15 ML IV (10:35)
--- NOTE | 2023-11-08 11:45 | EX.PCM.CONCC ---
Assessment & Plan Assessment/Plan (1) Acute respiratory failure with hypoxia and hypercarbia: (2) COVID-19: (3) TACO (obstructive sleep apnea): PLAN: Plan RECOMMENDATIONS: 1. Continue BiPAP pending discussion about CODE STATUS 2. Continue Decadron, Remdesivir 3. Continue empiric antibiotics 4. Clarify CODE STATUS with daughter 5. Await echo. Agree with empiric diuresis 6. Attempt to get previous records IMPRESSIONS: 1. Acute combined respiratory failure secondary to acute COVID-19 with concern of concomitant pneumonia in the setting of reported COPD Patient's ABG is consistent with acute on chronic combined hypercarbic respiratory failure. Patient reportedly is on room air at baseline, but does have significant oxygen requirements and a right lower lobe infiltrate. Unclear if patient has an element of aspiration given mental status on presentation. Will continue with empiric antibiotics for now. Patient is currently on Decadron and remdesivir secondary to COVID-19. Oxygenation status appears to be much improved on BiPAP therapy. Will need to clarify intubation status, but patient is at risk for intubation in the next 24 hours. Patient has received some diuretics with some improvement. 2. 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 coli. This appears to be pansensitive at this time. Patient reportedly has not been a surgical candidate in the past. Patient is not having any hypotension at this time. to monitor patient closely as it is unclear if she will tolerate fluid boluses secondary to problem #3 3. Elevated troponins/probable CHF Evaluation by echocardiogram may be somewhat limited secondary to body habitus. Echocardiogram has been ordered. Patient was significantly hypoxic on presentation and does have some lower extremity edema. Patient has responded to diuretic therapy. Will continue to monitor closely. Defer to hospitalist on cardiology evaluation 4. Diabetes mellitus type 2 Patient does have diabetes at baseline. Unfortunately, patient does have an indication for Decadron therapy will likely have significant elevation in her blood sugars. Will continue to use insulin for coverage. Patient may require basal insulin moving forward 5. Anxiety/depression/hypertension/noncompliant TACO/morbid obesity/reported dementia/advanced age Complicates care, management, recovery and prognosis. Will attempt to clarify CODE STATUS as there appears to be some confusion about the ventilator and intubation relationship. Patient does have a history of dementia and is alert and oriented to self only at this time. Will attempt to clarify with the daughter as next of kin. TIME: 35 minutes of critical care time was spent addressing patient's acute respiratory failure, UTI, probable CHF, diabetes, review of all data and collaboration with care team HPI Consult Data Date of Consult: 11/08/23 HPI Narrative HPI Narrative: ROBBIN SINGH is an 83 F, with past medical history listed below, who presented to [facility] on 11/06/2023 secondary to altered mental status, hypoxia and dyspnea. Patient reportedly had stated the patient started to complain of increased shortness of breath on the day prior. On the day of presentation she was just moaning and not interactive. Patient does have a history of dementia, but reportedly does answer some questions here and there. Patient's daughter was recently diagnosed with COVID. Patient does not use supplemental oxygen at baseline and has been diagnosed with sleep apnea, but is not compliant with therapy. Patient's daughter also was concerned for UTI as she has had a history of a fistula between bowel, vagina and bladder that has not been fixed secondary to being a poor surgical candidate. In the ER, patient was noted to have a temperature of 99.9 ?F and saturating 88% on 6 L nasal cannula. Patient was transition to 10 L high flow with some improvement in saturations. Patient did not have significant hypertension. Laboratory workup showed a white blood cell count of 5.3, hemoglobin of 8.3 and platelets of 161. Chemistry did show an elevated bicarbonate of 35 with a creatinine of 1.36 and a glucose of 174. LFTs were within normal limits. Patient did have a UA that was suggestive of UTI. Chest x-ray showed right-sided infiltrate and EKG showed sinus rhythm. Patient had blood and urine culture sent and was given a dose of Rocephin. Patient's COVID test returned positive, so she was given a dose of Decadron and admitted to the floor for further evaluation. Overnight, patient became more hypoxic requiring BiPAP rescue. Patient did have an ABG this morning that showed significant CO2 retention and a pH of 7.3. At that time, patient was reportedly a full code and was transferred to the intensive care unit for further evaluation. Since being in the intensive care unit, patient's mentation has improved on BiPAP therapy. Patient does become agitated and has removed her BiPAP a couple of times. Patient appears confused and is only oriented to self at this time. Unable to obtain review of systems. Patient's daughter has called and states that she is okay with intubation, but does not want her mother on the ventilator. I was not able to discuss with the daughter, but she is reportedly coming in for an update. [facility] Medical History (Updated 11/08/23 @ 11:[address] Afshin Trivedi MD) Arthritis CHF (congestive heart failure) Chronic back pain Colovesical fistula COPD (chronic obstructive pulmonary disease) Dementia with mood disturbance Diabetes DJD (degenerative joint disease) High cholesterol Hypertension Interstitial cystitis Melanoma TACO (obstructive sleep apnea) Pulmonary hypertension Pulmonary nodule Stage 3a chronic kidney disease (CKD) Home Medications albuterol sulfate 2.5 mg/3 mL (0.083 %) solution for nebulization 2.5 mg inhalation Q6H PRN PRN Wheezing 01/14/18 [History Last Taken Unknown] aspirin 81 mg chewable tablet 81 mg PO DAILY@0800 01/14/18 [History Last Taken Unknown] atorvastatin 40 mg tablet 40 mg PO QHS 01/14/18 [History Last Taken Unknown] furosemide 20 mg tablet 20 mg PO BIDCM 01/14/18 [History Last Taken Unknown] hydrocodone-acetaminophen 5-325mg 5mg-325mg 1 tab PO Q8H PRN Pain 01/14/18 [History Last Taken 11/06/23 06:00 1 TAB] losartan 50 mg tablet (Cozaar) 50 mg PO DAILY 01/14/18 [History Last Taken Unknown] donepezil 10 mg tablet 10 mg PO QHS 11/06/23 [History Last Taken Unknown] hydroxyzine HCl 10 mg tablet 10 mg PO QHS 11/06/23 [History Last Taken Unknown] isosorbide mononitrate 30 mg tablet,extended release 24 hr 30 mg PO DAILY 11/06/23 [History Last Taken Unknown] melatonin 10 mg capsule 10 mg PO QHS 11/06/23 [History Last Taken Unknown] metformin 500 mg tablet,extended release 24 hr 1,000 mg PO DAILY 11/06/23 [History Last Taken Unknown] mirtazapine 7.5 mg tablet 7.5 mg PO QHS 11/06/23 [History Last Taken Unknown] pantoprazole 40 mg tablet,delayed release 40 mg PO Q12H 11/06/23 [History Last Taken Unknown] phenazopyridine 95 mg tablet (Azo Urinary Pain Relief) 190 mg PO BID 11/06/23 [History Last Taken Unknown] pioglitazone 15 mg tablet 15 mg PO DAILY 11/06/23 [History Last Taken Unknown] sertraline 50 mg tablet 50 mg PO Q24H 11/06/23 [History Last Taken Unknown] Allergy/AdvReac Type Severity Reaction Status Date / Time Iodinated Contrast Media Allergy Other Verified 11/06/23 14:13 [DYEE] morphine AdvReac Shortness Verified 11/06/23 20:21 of breath tramadol [From Ultram] AdvReac Other Verified 11/06/23 14:13 trazodone AdvReac Other Verified 11/06/23 14:13 Family History Mother Hypertension Father CVA (cerebral vascular accident) Hypertension Diabetes Surgical History History of cholecystectomy History of left knee replacement Social History household members: children Smoking Status: Former smoker how long ago did patient quit smoking: Quit ~ 27 yrs prior, smoked 4 ppd since age 19 until quit. alcohol intake: never substance use type: does not use ROS Review of Systems ROS Unobtainable: due to mental status Physical Exam Const alert and oriented x3 Constitutional Narrative: Good bipap synchrony. Morbidly obese. Confused. Oriented to self only General Appearance: cooperative HEENT normocephalic and head/scalp atraumatic Eyes PERRL, EOMs intact bilaterally and conjunctivae normal Neck full ROM Chest inspection of chest normal Resp Effort and Inspection: Negative for able to speak in complete sentences Auscultation: diminished lung sounds; Negative for rales, rhonchi or wheezes Cardio regular rate, regular rhythm, S1 normal heart sound, S2 normal heart sound, no murmurs, no rub and no gallops GI normal to inspection, nondistended, normoactive bowel sounds Extremity General Extremity: edema; Negative for clubbing Skin no rashes or lesions noted Neuro oriented x3, CN's II-XII intact bilaterally and moves all extremities Psych Activity / Motor Behavior: restless Mood & Affect: anxious Medical Records Data Attestation: I reviewed the patient's medical records Medical records narrative: Patient does not have any previous echocardiogram or PFT available for review Lab / Micro Data Attestation: I reviewed the patient's lab results. Lab results narrative: Patient does have a positive urine culture with E. coli that is pansensitive. COVID-positive noted. No previous notable resistance on cultures noted 11/08/23 07:40 11/08/23 07:40 Labs: Laboratory Results - last 24 hr 11/07/23 13:02: POC Glucose 108 H 11/07/23 16:52: POC Glucose 138 H 11/07/23 23:28: POC Glucose 119 H 11/08/23 06:40: POC Glucose 90 11/08/23 07:40: WBC 6.1, RBC 3.80 L, Hgb 8.3 L, Hct 31.4 L, MCV 82.6, MCH 21.8 L, MCHC 26.4 L, RDW Std Deviation 50.6 H, RDW Coeff of Esvin 17.1 H, Plt Count TNP, MPV 11.2, Immature Gran % (Auto) 0.700, Neut % (Auto) 77.7 H, Lymph % (Auto) 13.7 L, [place] % (Auto) 7.5, Eos % (Auto) 0.2, Baso % (Auto) 0.2, Absolute Neuts (auto) 4.8, Absolute Lymphs (auto) 0.84, Nucleated RBC % 0.3, Platelet Estimate SLT DEC, Sodium 144, Potassium 3.8, Chloride 105, Carbon Dioxide 35.0 H, Anion Gap 4 L, BUN 30 H, Creatinine 1.26 H, Estim Creat Clear Calc 31.67, Est GFR (MDRD) Af Amer 52 L, Est GFR (MDRD) Non-Af 43 L, BUN/Creatinine Ratio 23.8 H, Glucose 89, Calcium 8.3 L, Phosphorus 3.2, Magnesium 2.5, Total Bilirubin 0.50, AST 30, ALT 24, Alkaline Phosphatase 64, Total Protein 6.0 L, Albumin 2.7 L, Globulin 3.3, Albumin/Globulin Ratio 0.8 L Micro: Microbiology 11/06/23 14:30 Blood Culture (Wb) - Anticubital Left Blood Culture - Preliminary Mixed Gram Positive Organisms 11/06/23 14:20 Blood Culture (Wb) - Left Hand Blood Culture - Preliminary 11/06/23 14:50 Urine Catheter - Catheter Urine Culture - Final Escherichia coli Pseudomonas aeruginosa ABG Data ABG results: ABG 11/08/23 11/08/23 08:33 08:41 Specimen Type ART Cancelled Sample Site R Radial Cancelled pH 7.30 L Cancelled Bicarbonate Actual 38.6 H Cancelled Total CO2 41 Cancelled Base Excess 12 H Cancelled O2 Saturation 87 L Cancelled O2 % 40.0 Cancelled ABG pCO2 78.0 H* Cancelled ABG pO2 61 L Cancelled Shaka Test Positive Cancelled Respiration Rate 14 Cancelled O2 Delivery Device BiPAP Cancelled Liter Flow Cancelled Minute Volume Cancelled Vent Mode Not entered Cancelled Inspiratory Time Cancelled Expiratory Time Cancelled Tidal Volume 450.0 Cancelled Mean Airway Pressure Cancelled POC PEEP Cancelled Peak Inspir Pressure Cancelled POC Pressure Suppt Cancelled Pressure Control Cancelled Pressure High Cancelled Pressure Low Cancelled Time High Cancelled Time Low Cancelled EPAP Cancelled IPAP Cancelled Blood Gas Comments Cancelled Crit Call To/Read Back Yes Cancelled Blood Gas Notified Whom mcintyre Cancelled Blood Gas Notified Time 08:36:19 Cancelled Clinical Comments avaps Cancelled Attestation: I personally reviewed and interpreted this ABG as follows: (Partially compensated acute on chronic respiratory acidosis with increased AA gradient) Charges/Coding Procedures Hospitalists Procedures: 64048 Critical Care 1st Hr
--- NOTE | 2023-11-08 13:38 | CASEMGMT ---
RN?CM?ASSESSMENT Pt confused/oriented x 1 only and is currently on BIPAP. RN?CM?spoke w/pt's daughter, Brandy, for initial transition planning/care coordination?assessment outside of pt's room. RN?CM?introduced self and role at [facility].? Care providers, pharmacy, and demographics verified/updated at this time. PCP: Dr Son Specialists: Pt has seen an FUEL TESTING TECHNICIAN @ [facility] for the dementia. Brandy not sure of her name. Preferred Pharmacy: [facility] Retail Insurance: [employer] [place]. Brandy states she thinks this is pt's primary insurance. She had [facility], but Brandy states this is not active as of 11/07/2023. Prescription Benefit:?Yes Living Will/HPOA:? does not have LW or HCPOA, per Brandy LNOK: 2 dtr's: Brandy Lemus and Aggie Jay Living Arrangements: Lives w/Brandy in one-story home w/basement. Pt does not go to the basement. There are 4 steps to enter into the home through the garage where there is railing. Pt independent w/showering. Brandy helps w/her pants, when needed. Brandy manages pt's medications and does cooking and other home mgnt tasks. Transportation: Brandy DME: ? has the following DME:?lift chair, walker, built-in shower seat (does not use it), nebulizer. Has a CPAP but refuses to wear it. Had a CGM but pt kept ripping it off, per Brandy. She does not have a glucometer and is not on insulin. On PO only. No home O2. HHC/SNF: No hx of SNF. Has had HHC in the past. Brandy dolan prefers to take pt home @ discharge, if able, and may be interested in HHC. Brandy states she can be home w/pt 30/05 and can help to take care of her. Brandy uses a cane herself, though, and if pt is too weak @ discharge for her to be able to take care of her, then she is aware can have further discussion w/CM or SW to discuss possible option of SNF. CM?to follow for home oxygen needs and any further discharge planning/needs.? Brandy voices no further concerns/needs at this time.? PLAN:??TBD by course of treatment and progress w/therapy. Follow for possible home o2. [place] BSN?RN?CM
[2023-11-08 13:56] LABS: Bedside Glucose 141 mg/dL (74-106)
--- NOTE | 2023-11-08 14:55 | PCM.CONS.GEN ---
Assessment & Plan Assessment/Plan (1) COVID-19: PLAN: COVID-19 infection in an elderly patient with underlying chronic lung disease and obstructive sleep apnea. There is a concern of bacterial infection. Reasonable to treat with levofloxacin 500 mg IV daily along with treatment of COVID-19 pulmonary infection of low-dose dexamethasone plus remdesivir. Given her age and multiple comorbidities prognosis is guarded HPI Consult Data Date of Consult: 11/08/23 HPI Narrative Reason for Consultation: Respiratory failure and COVID-19 HPI Narrative: ROBBIN SINGH, is a 83 F who presents past medical history of COPD and extensive tobacco abuse who presents with increasing shortness of breath over 2 to 3-day period Along with chills from her daughter's home. Patient is currently on a BiPAP machine, is responsive but not a very good historian. History is obtained through talking to the patient's daughters at the bedside. Apparently the patient daughter was recently positive for COVID-19. Chest film reviewed. Patient is currently on low-dose dexamethasone plus remdesivir and Zosyn. Microbiology data reviewed [facility] Medical History (Updated 11/08/23 @ 11:[address] Afshin Trivedi MD) Arthritis CHF (congestive heart failure) Chronic back pain Colovesical fistula COPD (chronic obstructive pulmonary disease) Dementia with mood disturbance Diabetes DJD (degenerative joint disease) High cholesterol Hypertension Interstitial cystitis Melanoma TACO (obstructive sleep apnea) Pulmonary hypertension Pulmonary nodule Stage 3a chronic kidney disease (CKD) Home Medications albuterol sulfate 2.5 mg/3 mL (0.083 %) solution for nebulization 2.5 mg inhalation Q6H PRN PRN Wheezing 01/14/18 [History Last Taken Unknown] aspirin 81 mg chewable tablet 81 mg PO DAILY@0800 01/14/18 [History Last Taken Unknown] atorvastatin 40 mg tablet 40 mg PO QHS 01/14/18 [History Last Taken Unknown] furosemide 20 mg tablet 20 mg PO BIDCM 01/14/18 [History Last Taken Unknown] hydrocodone-acetaminophen 5-325mg 5mg-325mg 1 tab PO Q8H PRN Pain 01/14/18 [History Last Taken 11/06/23 06:00 1 TAB] losartan 50 mg tablet (Cozaar) 50 mg PO DAILY 01/14/18 [History Last Taken Unknown] donepezil 10 mg tablet 10 mg PO QHS 11/06/23 [History Last Taken Unknown] hydroxyzine HCl 10 mg tablet 10 mg PO QHS 11/06/23 [History Last Taken Unknown] isosorbide mononitrate 30 mg tablet,extended release 24 hr 30 mg PO DAILY 11/06/23 [History Last Taken Unknown] melatonin 10 mg capsule 10 mg PO QHS 11/06/23 [History Last Taken Unknown] metformin 500 mg tablet,extended release 24 hr 1,000 mg PO DAILY 11/06/23 [History Last Taken Unknown] mirtazapine 7.5 mg tablet 7.5 mg PO QHS 11/06/23 [History Last Taken Unknown] pantoprazole 40 mg tablet,delayed release 40 mg PO Q12H 11/06/23 [History Last Taken Unknown] phenazopyridine 95 mg tablet (Azo Urinary Pain Relief) 190 mg PO BID 11/06/23 [History Last Taken Unknown] pioglitazone 15 mg tablet 15 mg PO DAILY 11/06/23 [History Last Taken Unknown] sertraline 50 mg tablet 50 mg PO Q24H 11/06/23 [History Last Taken Unknown] Allergy/AdvReac Type Severity Reaction Status Date / Time Iodinated Contrast Media Allergy Other Verified 11/06/23 14:13 [DYEE] morphine AdvReac Shortness Verified 11/06/23 20:21 of breath tramadol [From Ultram] AdvReac Other Verified 11/06/23 14:13 trazodone AdvReac Other Verified 11/06/23 14:13 Family History Mother Hypertension Father CVA (cerebral vascular accident) Hypertension Diabetes Surgical History History of cholecystectomy History of left knee replacement Social History household members: children Smoking Status: Former smoker how long ago did patient quit smoking: Quit ~ 27 yrs prior, smoked 4 ppd since age 19 until quit. alcohol intake: never substance use type: does not use ROS ROS Narrative Noncontributory Physical Exam Narrative Responsive but very vague and difficult historian lungs with some coarse breath sounds heart exam S1-S2 abdomen is obese but soft. Rapp catheter is in place Lab / Micro Data 11/08/23 07:40 11/08/23 07:40 Labs: Laboratory Results - last 24 hr 11/07/23 16:52: POC Glucose 138 H 11/07/23 23:28: POC Glucose 119 H 11/08/23 06:40: POC Glucose 90 11/08/23 07:40: WBC 6.1, RBC 3.80 L, Hgb 8.3 L, Hct 31.4 L, MCV 82.6, MCH 21.8 L, MCHC 26.4 L, RDW Std Deviation 50.6 H, RDW Coeff of Esvin 17.1 H, Plt Count TNP, MPV 11.2, Immature Gran % (Auto) 0.700, Neut % (Auto) 77.7 H, Lymph % (Auto) 13.7 L, [place] % (Auto) 7.5, Eos % (Auto) 0.2, Baso % (Auto) 0.2, Absolute Neuts (auto) 4.8, Absolute Lymphs (auto) 0.84, Nucleated RBC % 0.3, Platelet Estimate SLT DEC, Sodium 144, Potassium 3.8, Chloride 105, Carbon Dioxide 35.0 H, Anion Gap 4 L, BUN 30 H, Creatinine 1.26 H, Estim Creat Clear Calc 31.67, Est GFR (MDRD) Af Amer 52 L, Est GFR (MDRD) Non-Af 43 L, BUN/Creatinine Ratio 23.8 H, Glucose 89, Calcium 8.3 L, Phosphorus 3.2, Magnesium 2.5, Total Bilirubin 0.50, AST 30, ALT 24, Alkaline Phosphatase 64, Total Protein 6.0 L, Albumin 2.7 L, Globulin 3.3, Albumin/Globulin Ratio 0.8 L 11/08/23 13:28: POC Glucose 141 H Micro: Microbiology 11/06/23 14:30 Blood Culture (Wb) - Anticubital Left Blood Culture - Preliminary Mixed Gram Positive Organisms 11/06/23 14:20 Blood Culture (Wb) - Left Hand Blood Culture - Preliminary 11/06/23 14:50 Urine Catheter - Catheter Urine Culture - Final Escherichia coli Pseudomonas aeruginosa ABG Data ABG results: ABG 11/08/23 11/08/23 08:33 08:41 Specimen Type ART Cancelled Sample Site R Radial Cancelled pH 7.30 L Cancelled Bicarbonate Actual 38.6 H Cancelled Total CO2 41 Cancelled Base Excess 12 H Cancelled O2 Saturation 87 L Cancelled O2 % 40.0 Cancelled ABG pCO2 78.0 H* Cancelled ABG pO2 61 L Cancelled Shaka Test Positive Cancelled Respiration Rate 14 Cancelled O2 Delivery Device BiPAP Cancelled Liter Flow Cancelled Minute Volume Cancelled Vent Mode Not entered Cancelled Inspiratory Time Cancelled Expiratory Time Cancelled Tidal Volume 450.0 Cancelled Mean Airway Pressure Cancelled POC PEEP Cancelled Peak Inspir Pressure Cancelled POC Pressure Suppt Cancelled Pressure Control Cancelled Pressure High Cancelled Pressure Low Cancelled Time High Cancelled Time Low Cancelled EPAP Cancelled IPAP Cancelled Blood Gas Comments Cancelled Crit Call To/Read Back Yes Cancelled Blood Gas Notified Whom mcintyre Cancelled Blood Gas Notified Time 08:36:19 Cancelled Clinical Comments avaps Cancelled Imagaing Radiology Impression Echocardiogram 11/08/23 09:05 Interpretation Summary The left ventricular ejection fraction is 65 %. Small pericardial effusion. Ordering Physician: Sha Sharpe Referring Physician: Leno Son Performed By: Betsey Hanks RDCS
--- NOTE | 2023-11-08 16:50 | CHAPLAIN ---
Type of Pastoral Visit _x__ Initial Visit ___ Follow-up Visit ___ On-call Visit ___ General Patient Visit ___ Spiritual Assessment ___ Family Conference ___ Bereavement ___ Rapid Response ___ Code Blue ___ Other (describe below) Pastoral Care Referral From ___ Patient _x__ Family ___ Nurse ___ Physician ___ Store Stock Associate ___ Maintenance And Custodian Supervisor ___ Other (describe below) Sacrament/Intervention ___ Active listening ___ Anointing ___ Hindu ___ Bereavement ___ Communion ___ Marley exploration ___ ___ Life review _x__ Prayer ___ Reconciliation ___ Sacrament of Sick _x__ Supportive presence ___ Wedding ___ Other (describe below) Pastoral Comments patient is in Covid isolation room and on a bi-pap; RN states that pt has some confusion and that family is distressed about this situation; two daughters are in the room and can be seen through the glass min; this car runner knocks on the wall and introduces self and role to daughters; offer of prayers and any assistance needed; daughter responds with please just pray; message relayed to patient by daughter that car runner will be praying; word of thanks given; prayer walk through the unit continued at this time for each patient and staff member
[2023-11-08] MEDS: Dexmedetomidine 1,000 mcg in 0.9% NS 240 mL 19 MCG CONT INF (17:30)
[2023-11-08 19:37] LABS: Bedside Glucose 147 mg/dL (74-106)
[2023-11-08] MEDS: Remdesivir 100 MG in 0.9% Normal Saline (250mL Bag) 230 ML 250 MG IV (21:10)
[2023-11-08] MEDS: Dexmedetomidine 1,000 mcg in 0.9% NS 240 mL 38 MCG CONT INF (23:41)
[2023-11-09] VITALS (33 sets, daily range): BP systolic 124–174; BP diastolic 51–112; PULSE 42–74; RESP 14–28; TEMP 36.4–37.2; O2SAT 92–98; BMI 52.1
[2023-11-09 00:19] LABS: Bedside Glucose 153 mg/dL (74-106)
[2023-11-09 04:06] LABS: Absolute Lymphocyte Count 0.73 X10^3/uL (0.83-4.51); Absolute Neutrophil Count 4.3 X10^3/uL (2.0-7.7); Hematocrit 34.8 % (37-47); Hemoglobin 9.7 g/dL (12.0-15.0); Lymphocyte # 0.73 X10^3/ul (0.83-4.51); Lymphocyte % 13.2 % (19-41); Mean Corp Hgb Conc 27.9 g/dL (32-36); Mean Corpuscular Hgb 22.6 pg (27.0-32.0); Mean Corpuscular Volume 80.9 fL (81-99); Mean Platelet Vol. 11.6 fl (6.2-12.0); Monocyte# 0.45 X10^3/uL; Monocyte% 8.2 % (0-10); NRBC Flagged by Analyzer 0 % (0-5); Neutrophil # 4.31 X10^3/uL (2.7-7.7); Neutrophil % 78.2 % (47-70); Platelet Count 149 K/mm3 (150-450); RBC Distribution Width CV 17.2 % (11.6-14.6); RBC Distribution Width SD 50.2 fl (35.1-43.9); White Blood Count 5.5 K/mm3 (4.4-11.0)
[2023-11-09 04:20] LABS: Anion Gap 2 (5-15); BUN 30 mg/dL (7-18); BUN/Creat Ratio 23.8 RATIO (10-20); Calcium,Total 8.2 mg/dL (8.5-10.1); Chloride 101 mmol/L (98-107); Creatinine, Serum 1.26 mg/dL (0.55-1.02); EST Glomerular Filtration Rate 43 mL/min (>60); Est Glom Filt Rate - Afr Amer 52 mL/min (>60); Estimated Creatinine Clearance 31.67 ml/min; Glucose 153 mg/dL (74-106); Potassium 3.7 mmol/L (3.5-5.1); Sodium Level 143 mmol/L (136-145)
[2023-11-09] MEDS: Miconazole Nitrate 43 GM Bottle 1 APPLIC TOPICAL ×3 (05:28→21:17)
[2023-11-09 05:47] LABS: Bedside Glucose 145 mg/dL (74-106)
[2023-11-09] MEDS: Ipratropium/Albuterol Sulfate 3 ML AMPUL.NEB INHALATION ×3 (07:09→20:08)
--- NOTE | 2023-11-09 08:07 | PCM.PN.HOSP ---
Subjective Subjective Sedated. Unable provide history. Objective Data Objective Data Vital Signs: Vital Signs Temp Pulse Resp BP Pulse Ox O2 Del Method O2 Flow Rate 37.2 C 48 L 15 154/62 H 96 Bi-pap 40 11/09/23 04:00 11/09/23 07:09 11/09/23 07:09 11/09/23 07:00 11/09/23 07:09 11/09/23 04:00 11/08/23 22:25 FiO2 40 11/09/23 07:09 Oxygen Flow Rate (L/min) 40 Oxygen Delivery Method Bi-pap Weight: 146.5 kg Body Mass Index (BMI) 52.1 Intake & Output: Intake and Output for Last 24 Hours 11/07/23 11/08/23 11/09/23 23:59 23:59 23:59 Intake Total 370 / 370 1760.99 / 1858.49 137.42 / 137.42 Output Total 3000 / 3300 4300 / 4300 1200 / 1200 Balance -2630 / -2930 -2539.01 / -2441.51 -1062.58 / -1062.58 Lab / Micro Data 11/09/23 04:00 11/09/23 04:00 Labs: Laboratory Results - last 24 hr 11/08/23 07:40: WBC 6.1, RBC 3.80 L, Hgb 8.3 L, Hct 31.4 L, MCV 82.6, MCH 21.8 L, MCHC 26.4 L, RDW Std Deviation 50.6 H, RDW Coeff of Esvin 17.1 H, Plt Count TNP, MPV 11.2, Immature Gran % (Auto) 0.700, Neut % (Auto) 77.7 H, Lymph % (Auto) 13.7 L, [place] % (Auto) 7.5, Eos % (Auto) 0.2, Baso % (Auto) 0.2, Absolute Neuts (auto) 4.8, Absolute Lymphs (auto) 0.84, Nucleated RBC % 0.3, Platelet Estimate SLT DEC, Sodium 144, Potassium 3.8, Chloride 105, Carbon Dioxide 35.0 H, Anion Gap 4 L, BUN 30 H, Creatinine 1.26 H, Estim Creat Clear Calc 31.67, Est GFR (MDRD) Af Amer 52 L, Est GFR (MDRD) Non-Af 43 L, BUN/Creatinine Ratio 23.8 H, Glucose 89, Calcium 8.3 L, Phosphorus 3.2, Magnesium 2.5, Total Bilirubin 0.50, AST 30, ALT 24, Alkaline Phosphatase 64, Total Protein 6.0 L, Albumin 2.7 L, Globulin 3.3, Albumin/Globulin Ratio 0.8 L 11/08/23 13:28: POC Glucose 141 H 11/08/23 18:20: POC Glucose 147 H 11/08/23 23:56: POC Glucose 153 H 11/09/23 04:00: WBC 5.5, RBC 4.30, Hgb 9.7 L, Hct 34.8 L, MCV 80.9 L, MCH 22.6 L, MCHC 27.9 L D, RDW Std Deviation 50.2 H, RDW Coeff of Esvin 17.2 H, Plt Count 149 L, MPV 11.6, Immature Gran % (Auto) 0.400, Neut % (Auto) 78.2 H, Lymph % (Auto) 13.2 L, [place] % (Auto) 8.2, Eos % (Auto) 0.0, Baso % (Auto) 0.0, Absolute Neuts (auto) 4.3, Absolute Lymphs (auto) 0.73 L, Nucleated RBC % 0, Sodium 143, Potassium 3.7, Chloride 101, Carbon Dioxide 40.0 H, Anion Gap 2 L, BUN 30 H, Creatinine 1.26 H, Estim Creat Clear Calc 31.67, Est GFR (MDRD) Af Amer 52 L, Est GFR (MDRD) Non-Af 43 L, BUN/Creatinine Ratio 23.8 H, Glucose 153 H, Calcium 8.2 L 11/09/23 05:25: POC Glucose 145 H Micro: Microbiology 11/08/23 15:30 Urine Catheter - Rapp Legionella Antigen - Final 11/08/23 15:30 Urine Catheter - Rapp Streptococcus pneumoniae Antigen (M - Final 11/06/23 14:30 Blood Culture (Wb) - Anticubital Left Blood Culture - Preliminary Mixed Gram Positive Organisms 11/06/23 14:20 Blood Culture (Wb) - Left Hand Blood Culture - Preliminary 11/06/23 14:50 Urine Catheter - Catheter Urine Culture - Final Escherichia coli Pseudomonas aeruginosa 11/07/23 00:55 Mucosa - Nasopharyngeal Respiratory Panel (PCR) - Final 11/06/23 14:50 Urine Catheter - Rapp Legionella Antigen - Final 11/06/23 14:50 Urine Catheter - Rapp Streptococcus pneumoniae Antigen (M - Final 11/06/23 14:27 Mucosa - Nasopharyngeal SARS-CoV-2, Influenza & RSV (PCR) - Final SARS-CoV-2 (COVID 19) ABG Data ABG results: ABG 11/08/23 11/08/23 08:33 08:41 Specimen Type ART Cancelled Sample Site R Radial Cancelled pH 7.30 L Cancelled Bicarbonate Actual 38.6 H Cancelled Total CO2 41 Cancelled Base Excess 12 H Cancelled O2 Saturation 87 L Cancelled O2 % 40.0 Cancelled ABG pCO2 78.0 H* Cancelled ABG pO2 61 L Cancelled Shaka Test Positive Cancelled Respiration Rate 14 Cancelled O2 Delivery Device BiPAP Cancelled Liter Flow Cancelled Minute Volume Cancelled Vent Mode Not entered Cancelled Inspiratory Time Cancelled Expiratory Time Cancelled Tidal Volume 450.0 Cancelled Mean Airway Pressure Cancelled POC PEEP Cancelled Peak Inspir Pressure Cancelled POC Pressure Suppt Cancelled Pressure Control Cancelled Pressure High Cancelled Pressure Low Cancelled Time High Cancelled Time Low Cancelled EPAP Cancelled IPAP Cancelled Blood Gas Comments Cancelled Crit Call To/Read Back Yes Cancelled Blood Gas Notified Whom [email or web address] Cancelled Blood Gas Notified Time 08:36:19 Cancelled Clinical Comments avaps Cancelled Radiography Diagnostic Testing: Radiology Impression Echocardiogram 11/08/23 09:05 Interpretation Summary The left ventricular ejection fraction is 65 %. Small pericardial effusion. Ordering Physician: Sha Sharpe Referring Physician: Leno Son Performed By: Betsey Hanks RDCS Physical Exam Const Constitutional Narrative: sedated. afebrile. Resp normal respiratory effort, no retractions, no use of accessory muscles and clear to auscultation bilaterally Cardio regular rate, regular rhythm, S1 normal heart sound and S2 normal heart sound GI normal to inspection, nondistended, normoactive bowel sounds, soft to palpation, non-tender and non-distended Extremity normal to inspection and full ROM Assessment & Plan Assessment/Plan (1) COVID-19: PLAN: Plan Acute Metabolic Encephalopathy secondary to hypercapnia 11/08/2023: Patient was confused and disoriented yesterday and had Haldol and hydroxyzine. Patient is still confused and disoriented. No meaningful conversation possible. On AVAPS 450 mL. ABG done 7.3 /60 28.6 on AVAPS 40% FiO2. Discussed with the protection engineer and consulted for same and patient is transferred to ICU for further intensive monitoring and management. started on dexmedetomidine drip. Avoid potentiating medications. Acute Hypoxic/hypercapnic Respiratory Failure secondary to RLL Pneumonia secondary to Acute COVID-19 and concern of concurrent superimposed Bacterial RLL Pneumonia, and CHF exacerbation. Oscilating between BiPAP and AirVo Wean oxygen as able. On remdesivir, dexamethasone and levofloxacin Elevated troponins Indeterminant troponins, exact etiology unclear: Troponins are 63, 71 and 75 flat and intermittent. EKG in ED no acute evidence of ischemia, CXR w/ concern for right lower lobe pneumonia and possible mild overload. Most likely due to acute myocardial injury/increased cardiac demand from pulmonary infection. Patient on aspirin. Echo on 11/08: EF 65%. small pericardial effusion. Bacteruria Suspect not true infection, but colonization. Only 5-10 WBCs on UA. - 24: Preliminary culture shows E. coli and Pseudomonas aeruginosa. E. coli 80,000-100,000. Pseudomonas less than 1000. ID following on levofloxacin Acute HFpEF IV furosemide 40 IV BID. Chronic conditions: Diabetes mellitus type II: Hold oral home regimen, currently n.p.o. status secondary to encephalopathy, while n.p.o. maintain every 6 hours accu checks w/ ISS. Chronic Kidney Disease Stage IIIa: Admission BUN/Cr 29/11.36, baseline renal function does not appear to be available in the system however she does have a chart reported history of stage IIIa chronic kidney disease and the GFR currently would be consistent with this, will continue to closely monitor especially given IV Lasix usage. 11/08/2023: Patient has Rapp catheter. Dark, concentrated yellow-colored urine. Continue Lasix. Dementia with mood disturbance chart reported: Complicates presentation, normally on donepezil, holding, will attempt a place near nursing station with fall and aspiration precautions, PT/OT/case management consulted for discharge planning. Given encephalopathy holding all oral medicines as noted. COPD: Complicates presentation, as noted currently maintained on supplementation, will attempt BiPAP nightly, will transition to ATC budesonide therapy, PRN albuterol, HOB, IS parameters. Anxiety and depression: Temporarily holding patient home mirtazapine as well as sertraline home regimen given unsafe oral intake, resume once clinically appropriate. Hypertension: Holding oral regimen as noted, maintain on IV Lasix, PRN hydralazine. Hyperlipidemia: Temporally holding oral regimen as noted, add back oral statin once appropriate, FLP in AM. TACO: attempt BiPAP nightly if patient will tolerate but she does have underlying history and per family refuses to wear any PAP therapy. Morbid Obesity: Weight loss and lifestyle changes encouraged. #14. DVT prophylaxis: Heparin. #15. CODE status: DNRCCA non intubation. Charges/Coding Visit Charges Inpatient E&M: 10425 Subs Hosp L2
[2023-11-09] MEDS: Dexmedetomidine 1,000 mcg in 0.9% NS 240 mL 19 MCG CONT INF (09:09)
--- NOTE | 2023-11-09 10:23 | PN.CC_ITS ---
Assessment & Plan Assessment/Plan (1) Acute respiratory failure with hypoxia and hypercarbia: (2) COVID-19: (3) TACO (obstructive sleep apnea): PLAN: Plan RECOMMENDATIONS: 1. Continue BiPAP with sleep and Airvo during the day 2. Continue Decadron, Remdesivir 3. Continue empiric antibiotics pending cultures. Possible transition to Cipro if sputum culture negative 4. Clarify CODE STATUS with daughter 5. Continue with empiric diuresis as renal function allows 6. Attempt to get previous records IMPRESSIONS: 1. Acute combined respiratory failure secondary to acute COVID-19 with concern of concomitant pneumonia in the setting of reported COPD Patient's ABG is consistent with acute on chronic combined hypercarbic respiratory failure. Patient reportedly is on room air at baseline, but now has significant oxygen requirements and a right lower lobe infiltrate. Unclear if patient has an element of aspiration given mental status on presentation. Will continue with empiric antibiotics for now. Patient is currently on Decadron and remdesivir secondary to COVID-19. Patient will be continued on BiPAP with sleep and Airvo during the day. Patient has received some diuretics with some improvement. 2. 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 coli. This appears to be pansensitive at this time. Patient reportedly has not been a surgical candidate in the past. Patient is not having any hypotension at this time. to monitor patient closely as it is unclear if she will tolerate fluid boluses secondary to problem #3 3. Elevated troponins/probable diastolic CHF Evaluation by echocardiogram may be somewhat limited secondary to body habitus. Echocardiogram was relatively unremarkable, but limited given her COVID-19 status. Patient was significantly hypoxic on presentation and does have some lower extremity edema. Patient has responded to diuretic therapy. Will continue to monitor closely. Defer to hospitalist on cardiology evaluation 4. Diabetes mellitus type 2 Patient does have diabetes at baseline. Unfortunately, patient does have an indication for Decadron therapy will likely have significant elevation in her blood sugars. Will continue to use insulin for coverage. Patient may require basal insulin moving forward, but appears to be tolerating well at this time 5. Anxiety/depression/hypertension/noncompliant TACO/morbid obesity/reported dementia/advanced age Complicates care, management, recovery and prognosis. Will attempt to clarify CODE STATUS as there appears to be some confusion about the ventilator and intubation relationship. Patient does have a history of dementia and is alert and oriented to self only at this time. Patient has been verified is a DNR/DNI TIME: 32 minutes of critical care time was spent addressing patient's acute respiratory failure, UTI, probable CHF, diabetes, review of all data and collaboration with care team Subjective Subjective Patient did okay overnight. Multiple family discussions resulted in the patient being made DNR Comfort Care arrest without intubation. Patient was placed on Precedex to help with BiPAP synchrony. Patient was able to tolerate BiPAP overnight, but was transition to Airvo this morning. Patient continues to have periods of intermittent agitation, but hypoxia has been controlled. Objective Data Objective Data Vital Signs: Vital Signs Temp Pulse Resp BP Pulse Ox O2 Del Method O2 Flow Rate 37.2 C 48 L 15 154/62 H 96 Airvo 60 11/09/23 04:00 11/09/23 07:09 11/09/23 07:09 11/09/23 07:00 11/09/23 07:09 11/09/23 08:00 11/09/23 08:00 FiO2 47 11/09/23 08:00 Oxygen Flow Rate (L/min) 60 Oxygen Delivery Method Airvo Weight: 146.5 kg Body Mass Index (BMI) 52.1 Intake & Output: Intake and Output for Last 24 Hours 11/07/23 11/08/23 11/09/23 23:59 23:59 23:59 Intake Total 370 / 370 1760.99 / 1858.49 138.50 / 138.50 Output Total 3000 / 3300 4300 / 4300 1200 / 1200 Balance -2630 / -2930 -2539.01 / -2441.51 -1061.50 / -1061.50 Lab / Micro Data Attestation: I reviewed the patient's lab results. 11/09/23 04:00 11/09/23 04:00 Labs: Laboratory Results - last 24 hr 11/08/23 13:28: POC Glucose 141 H 11/08/23 18:20: POC Glucose 147 H 11/08/23 23:56: POC Glucose 153 H 11/09/23 04:00: WBC 5.5, RBC 4.30, Hgb 9.7 L, Hct 34.8 L, MCV 80.9 L, MCH 22.6 L , MCHC 27.9 L D, RDW Std Deviation 50.2 H, RDW Coeff of Esvin 17.2 H, Plt Count 1 49 L, MPV 11.6, Immature Gran % (Auto) 0.400, Neut % (Auto) 78.2 H, Lymph % (Auto) 13.2 L, [place] % (Auto) 8.2, Eos % (Auto) 0.0, Baso % (Auto) 0.0, Absolute Neuts (auto) 4.3, Absolute Lymphs (auto) 0.73 L, Nucleated RBC % 0, Sodium 143, Potassium 3.7, Chloride 101, Carbon Dioxide 40.0 H, Anion Gap 2 L, BUN 30 H, Creatinine 1.26 H, Estim Creat Clear Calc 31.67, Est GFR (MDRD) Af Amer 52 L, Es t GFR (MDRD) Non-Af 43 L, BUN/Creatinine Ratio 23.8 H, Glucose 153 H, Calcium 8.2 L 11/09/23 05:25: POC Glucose 145 H Micro: Microbiology 11/06/23 14:20 Blood Culture (Wb) - Left Hand Blood Culture - Preliminary 11/08/23 15:30 Urine Catheter - Rapp Legionella Antigen - Final 11/08/23 15:30 Urine Catheter - Rapp Streptococcus pneumoniae Antigen (M - Final 11/06/23 14:30 Blood Culture (Wb) - Anticubital Left Blood Culture - Preliminary Mixed Gram Positive Organisms 11/06/23 14:50 Urine Catheter - Catheter Urine Culture - Final Escherichia coli Pseudomonas aeruginosa 11/07/23 00:55 Mucosa - Nasopharyngeal Respiratory Panel (PCR) - Final 11/06/23 14:50 Urine Catheter - Rapp Legionella Antigen - Final 11/06/23 14:50 Urine Catheter - Rapp Streptococcus pneumoniae Antigen (M - Final 11/06/23 14:27 Mucosa - Nasopharyngeal SARS-CoV-2, Influenza & RSV (PCR) - Final SARS-CoV-2 (COVID 19) Radiography Diagnostic Testing: Radiology Impression Echocardiogram 11/08/23 09:05 Interpretation Summary The left ventricular ejection fraction is 65 %. Small pericardial effusion. Ordering Physician: Sha Sharpe Referring Physician: Leno Son Performed By: Betsey Hakns RDCS Physical Exam Const alert Constitutional Narrative: Good bipap synchrony. Morbidly obese. Confused. Oriented to self only General Appearance: cooperative HEENT normocephalic and head/scalp atraumatic Eyes PERRL, EOMs intact bilaterally and conjunctivae normal Neck full ROM Chest inspection of chest normal Resp Auscultation: diminished lung sounds; Negative for rales, rhonchi or wheezes Cardio regular rhythm, S1 normal heart sound, S2 normal heart sound, no murmurs, no rub and no gallops Cardio Narrative: Patient did have bradycardia on telemetry overnight related to Precedex, but blood pressures have remained stable Rate: bradycardia GI normal to inspection, nondistended, normoactive bowel sounds Extremity General Extremity: edema; Negative for clubbing Skin no rashes or lesions noted Neuro oriented x3, CN's II-XII intact bilaterally and moves all extremities Psych Mood & Affect: flat affect Charges/Coding Procedures Hospitalists Procedures: 75332 Critical Care 1st Hr
[2023-11-09] MEDS: Pantoprazole Sodium 40 MG in 0.9% Normal Saline (100mL MB+) 100 ML 330 MG IV ×2 (10:35→21:18)
[2023-11-09] MEDS: Furosemide 40 MG/4 ML Vial IV ×2 (10:37→18:24)
[2023-11-09] MEDS: Heparin Injection (Vial) 5,000 UNIT/ML VIAL 5000 UNIT SC ×2 (10:37→21:18)
[2023-11-09] MEDS: dexAMETHasone 4 MG/ML Vial 6 MG IV (10:41)
[2023-11-09] MEDS: 0.9% Saline Lock 10 ML Syringe IV ×2 (10:48→18:24)
[2023-11-09] MEDS: levoFLOXacin IV 500 MG/100 ML BAG 100 MG IV (10:56)
[2023-11-09] MEDS: Menthol/Lanolin/Calamine/Znox 113 GM Tube 1 APPLIC TOPICAL ×4 (11:12→21:17)
[2023-11-09] MEDS: Aspirin 300 MG Suppository RC (11:12)
[2023-11-09] MEDS: Dexmedetomidine 1,000 mcg in 0.9% NS 240 mL 49.2999999999999972 MCG CONT INF (16:43)
[2023-11-09 17:05] LABS: Bedside Glucose 136 mg/dL (74-106)
[2023-11-09] MEDS: Insulin Lispro 100 UNIT/ML INSULN.PEN SC (18:24)
[2023-11-09 18:53] LABS: Bedside Glucose 180 mg/dL (74-106)
[2023-11-09] MEDS: Remdesivir 100 MG in 0.9% Normal Saline (250mL Bag) 230 ML 250 MG IV (21:14)
[2023-11-09] MEDS: Dexmedetomidine 1,000 mcg in 0.9% NS 240 mL 56.8999999999999986 MCG CONT INF (21:34)
[2023-11-10] VITALS (34 sets, daily range): BP systolic 85–168; BP diastolic 56–115; PULSE 44–60; RESP 14–30; TEMP 36.4–36.8; O2SAT 91–99; BMI 50.4
[2023-11-10] MEDS: hydrALAZINE 20 MG/ML Vial 10 MG IV (00:42)
[2023-11-10 00:58] LABS: Bedside Glucose 140 mg/dL (74-106)
[2023-11-10] MEDS: Dexmedetomidine 1,000 mcg in 0.9% NS 240 mL 41.7000000000000028 MCG CONT INF (02:27)
[2023-11-10 03:59] LABS: ALB/GLOB Ratio 0.8 RATIO (0.9-2.4); AST(SGOT) 25 U/L (15-37); Alanine Aminotransfer ALT/SGPT 28 U/L (13-56); Alkaline Phosphatase 69 U/L (45-117); Anion Gap 5 (5-15); BUN 29 mg/dL (7-18); BUN/Creat Ratio 26.6 RATIO (10-20); Calcium,Total 8.3 mg/dL (8.5-10.1); Chloride 99 mmol/L (98-107); Creatinine, Serum 1.09 mg/dL (0.55-1.02); EST Glomerular Filtration Rate 51 mL/min (>60); Est Glom Filt Rate - Afr Amer 62 mL/min (>60); Estimated Creatinine Clearance 36.61 ml/min; Globulin 3.6 g/dL (2.2-4.2); Glucose 154 mg/dL (74-106); Potassium 3.6 mmol/L (3.5-5.1); Protein, Total 6.6 g/dL (6.4-8.2); Sodium Level 144 mmol/L (136-145)
[2023-11-10 04:36] LABS: Absolute Lymphocyte Count 0.72 X10^3/uL (0.83-4.51); Absolute Neutrophil Count 4.9 X10^3/uL (2.0-7.7); Basophil# 0.01 X10^3/uL; Basophil% 0.2 % (0-1); Eosinophil# 0.01 X10^3/uL; Eosinophils% 0.2 % (0-5); Hematocrit 35.9 % (37-47); Hemoglobin 9.8 g/dL (12.0-15.0); Lymphocyte # 0.72 X10^3/ul (0.83-4.51); Lymphocyte % 11.7 % (19-41); Mean Corp Hgb Conc 27.3 g/dL (32-36); Mean Corpuscular Hgb 21.7 pg (27.0-32.0); Mean Corpuscular Volume 79.6 fL (81-99); Mean Platelet Vol. 11.3 fl (6.2-12.0); Monocyte# 0.53 X10^3/uL; Monocyte% 8.6 % (0-10); NRBC Flagged by Analyzer 0 % (0-5); Neutrophil # 4.85 X10^3/uL (2.7-7.7); Platelet Count 146 K/mm3 (150-450); RBC Distribution Width SD 48.3 fl (35.1-43.9); Red Blood Count 4.51 M/mm3 (4.2-5.4); White Blood Count 6.1 K/mm3 (4.4-11.0)
[2023-11-10] MEDS: 0.9% Saline Lock 10 ML Syringe IV ×3 (05:32→17:56)
[2023-11-10] MEDS: Miconazole Nitrate 43 GM Bottle 1 APPLIC TOPICAL ×3 (05:32→21:35)
[2023-11-10 05:54] LABS: Bedside Glucose 147 mg/dL (74-106)
--- NOTE | 2023-11-10 07:32 | PN.HOSP_ITS ---
Reason for Visit Reason for Visit: Diagnoses Obstructive sleep apnea (adult) (pediatric) (11/06/23) Acute respiratory failure with hypoxia (11/06/23) Acute respiratory failure with hypercapnia (11/06/23) COVID-19 (11/06/23) Subjective Subjective More alert today and interactive. Objective Data Objective Data Vital Signs: Vital Signs Temp Pulse Resp BP Pulse Ox O2 Del Method O2 Flow Rate 36.6 C 53 L 30 H 166/72 H 97 Airvo 60 11/10/23 07:00 11/10/23 07:00 11/10/23 07:00 11/10/23 07:00 11/10/23 07:00 11/10/23 07:00 11/10/23 07:00 FiO2 50 11/10/23 07:00 Oxygen Flow Rate (L/min) 60 Oxygen Delivery Method Airvo Weight: 141.7 kg Body Mass Index (BMI) 50.4 Intake & Output: Intake and Output for Last 24 Hours 11/08/23 11/09/23 11/10/23 23:59 23:59 23:59 Intake Total 1760.99 / 1858.49 1305.51 / 1362.41 452.70 / 452.70 Output Total 4300 / 4300 4400 / 4400 900 / 900 Balance -2539.01 / -2441.51 -3094.49 / -3037.59 -447.30 / -447.30 Lab / Micro Data 11/10/23 04:00 11/10/23 03:35 Labs: Laboratory Results - last 24 hr 11/09/23 12:04: POC Glucose 136 H 11/09/23 18:10: POC Glucose 180 H 11/10/23 00:36: POC Glucose 140 H 11/10/23 03:35: Sodium 144, Potassium 3.6, Chloride 99, Carbon Dioxide 40.0 H, Anion Gap 5, BUN 29 H, Creatinine 1.09 H, Estim Creat Clear Calc 36.61, Est GFR (MDRD) Af Amer 62, Est GFR (MDRD) Non-Af 51 L, BUN/Creatinine Ratio 26.6 H, Glucose 154 H, Calcium 8.3 L, Total Bilirubin 0.90, AST 25, ALT 28, Alkaline Phosphatase 69, Total Protein 6.6, Albumin 3.0 L, Globulin 3.6, Albumin/Globulin Ratio 0.8 L 11/10/23 04:00: WBC 6.1, RBC 4.51, Hgb 9.8 L, Hct 35.9 L, MCV 79.6 L, MCH 21.7 L , MCHC 27.3 L, RDW Std Deviation 48.3 H, RDW Coeff of Esvin 17.0 H, Plt Count 146 L, MPV 11.3, Immature Gran % (Auto) 0.300, Neut % (Auto) 79.0 H, Lymph % (Auto) 11.7 L, [place] % (Auto) 8.6, Eos % (Auto) 0.2, Baso % (Auto) 0.2, Absolute Neuts (auto) 4.9, Absolute Lymphs (auto) 0.72 L, Nucleated RBC % 0 11/10/23 05:30: POC Glucose 147 H Micro: Microbiology 11/06/23 14:20 Blood Culture (Wb) - Left Hand Blood Culture - Preliminary 11/08/23 15:30 Urine Catheter - Rapp Legionella Antigen - Final 11/08/23 15:30 Urine Catheter - Rapp Streptococcus pneumoniae Antigen (M - Final 11/06/23 14:30 Blood Culture (Wb) - Anticubital Left Blood Culture - Preliminary Mixed Gram Positive Organisms 11/06/23 14:50 Urine Catheter - Catheter Urine Culture - Final Escherichia coli Pseudomonas aeruginosa 11/07/23 00:55 Mucosa - Nasopharyngeal Respiratory Panel (PCR) - Final 11/06/23 14:50 Urine Catheter - Rapp Legionella Antigen - Final 11/06/23 14:50 Urine Catheter - Rapp Streptococcus pneumoniae Antigen (M - Final 11/06/23 14:27 Mucosa - Nasopharyngeal SARS-CoV-2, Influenza & RSV (PCR) - Final SARS-CoV-2 (COVID 19) Physical Exam Const alert Constitutional Narrative: working with therapy. Required assistance to get from lying to sitting then into chair. On Airvo. Did not appear to be severely dyspneic during the transition. HEENT head/scalp atraumatic Resp normal respiratory effort Resp Narrative: coarse BS bilaterally. Cardio regular rate and regular rhythm GI normal to inspection, nondistended, normoactive bowel sounds and soft to palpation Extremity General Extremity: edema bilateral lower extremity Details: mild Neuro moves all extremities Sensorium / Orientation: awake and alert Psych affect normal Assessment & Plan Assessment/Plan (1) COVID-19: PLAN: Plan Acute Metabolic Encephalopathy * Improved 11/10 * secondary to hypercapnia, respiratory failure, underlying illness in patient with underlying dementia. * 11/08/2023: Patient was confused and disoriented yesterday and had Haldol and hydroxyzine. Patient is still confused and disoriented. No meaningful conversation possible. On AVAPS 450 mL. ABG done 7.3 0/78/60 28.6 on AVAPS 40% FiO2. Discussed with the cloud automation tester and consulted for same and patient is transferred to ICU for further intensive monitoring and management. * started on dexmedetomidine drip. * Avoid potentiating medications. Acute Hypoxic/hypercapnic Respiratory Failure * secondary to RLL Pneumonia secondary to Acute COVID-19 and concern of concurrent superimposed Bacterial RLL Pneumonia, and CHF exacerbation. * Oscilating between BiPAP and AirVo * Wean oxygen as able. * On remdesivir, dexamethasone and levofloxacin Elevated troponins * Indeterminant troponins, exact etiology unclear: Troponins are 63, 71 and 75 flat and intermittent. * EKG in ED no acute evidence of ischemia, CXR w/ concern for right lower lobe pneumonia and possible mild overload. Most likely due to acute myocardial injury/increased cardiac demand from pulmonary infection. Patient on aspirin. * Echo on 11/08: EF 65%. small pericardial effusion. Bacteremia: * Unclear if true infection. * Took several days to show positive results: 11/08 Cx on the showing polymicrobial: Corynebacterium, [place], Strep viridans. the other showing GPR * Repeat BCx ordered on 11/10. * ID following. Bacteruria * Suspect not true infection, but colonization. Only 5-10 WBCs on UA. * - 24: Preliminary culture shows E. coli and Pseudomonas aeruginosa. E. coli 80,000-100,000. Pseudomonas less than 1000. * ID following on levofloxacin Acute HFpEF * IV furosemide 40 IV BID. * Echo 11/08: EF 65% COVID-19 * Dexamethasone through the . Remdesivir through the . * ID following. * Onset around 11/04/23. Chronic conditions: * Diabetes mellitus type II: Hold oral home regimen, currently n.p.o. status secondary to encephalopathy, while n.p.o. maintain every 6 hours accu checks w/ ISS. * Chronic Kidney Disease Stage IIIa: Admission BUN/Cr 29/11.36, baseline renal function does not appear to be available in the system however she does have a chart reported history of stage IIIa chronic kidney disease and the GFR currently would be consistent with this, will continue to closely monitor especially given IV Lasix usage. 11/08/2023: Patient has Rapp catheter. Dark, concentrated yellow-colored urine. Continue Lasix. * Dementia with mood disturbance chart reported: Complicates presentation, normally on donepezil, holding, will attempt a place near nursing station with fall and aspiration precautions, PT/OT/case management consulted for discharge planning. Given encephalopathy holding all oral medicines as noted. * COPD: Complicates presentation, as noted currently maintained on supplementation, will attempt BiPAP nightly, will transition to ATC budesonide therapy, PRN albuterol, HOB, IS parameters. * Anxiety and depression: Temporarily holding patient home mirtazapine as well as sertraline home regimen given unsafe oral intake, resume once clinically appropriate. * Hypertension: Holding oral regimen as noted, maintain on IV Lasix, PRN hydralazine. * Hyperlipidemia: Temporally holding oral regimen as noted, add back oral statin once appropriate, FLP in AM. * TACO: attempt BiPAP nightly if patient will tolerate but she does have unde rlying history and per family refuses to wear any PAP therapy. * Morbid Obesity: Weight loss and lifestyle changes encouraged. DVT prophylaxis: Heparin. CODE status: DNRCCA non intubation. DW pt's son-in-law at bedside. Charges/Coding Visit Charges Inpatient E&M: 35225 Subs Hosp L3
[2023-11-10] MEDS: Ipratropium/Albuterol Sulfate 3 ML AMPUL.NEB INHALATION ×3 (07:55→20:38)
[2023-11-10] MEDS: Menthol/Lanolin/Calamine/Znox 113 GM Tube 1 APPLIC TOPICAL ×4 (08:54→21:35)
[2023-11-10] MEDS: dexAMETHasone 4 MG/ML Vial 6 MG IV (08:55)
[2023-11-10] MEDS: Furosemide 40 MG/4 ML Vial IV ×2 (08:57→17:56)
[2023-11-10] MEDS: Pantoprazole Sodium 40 MG in 0.9% Normal Saline (100mL MB+) 100 ML 330 MG IV ×2 (09:00→21:34)
[2023-11-10] MEDS: Heparin Injection (Vial) 5,000 UNIT/ML VIAL 5000 UNIT SC ×2 (09:01→21:35)
[2023-11-10] MEDS: Dexmedetomidine 1,000 mcg in 0.9% NS 240 mL 49.2999999999999972 MCG CONT INF ×3 (09:05→20:57)
[2023-11-10] MEDS: levoFLOXacin IV 500 MG/100 ML BAG 100 MG IV (10:08)
[2023-11-10] MEDS: Aspirin 300 MG Suppository RC (10:10)
--- NOTE | 2023-11-10 10:30 | CASEMGMT ---
NIKOLAS RUIZ NOTE: RN JOSEPH's, Dr Crowe, and Bettie, physical therapy manager, met w/patient's son-in-law per his request to discuss goals of care. GIOVANNI states the patient's daughters are feeling too emotional and he was sent on their behalf to receive updates. Many questions answered. Giovanni states he will relay this information to pt's daughters. Juana LINK RN, CM
--- NOTE | 2023-11-10 11:01 | CASEMGMT ---
Discharge Planning A list of?SNF providers including quality and resource use data and consistent with the patient's preferred geographic region, medical needs, and insurance network were printed and provided from the [facility] [facility]. Huong Villalta, Discharge Planning Asst.
[2023-11-10] MEDS: Insulin Lispro 100 UNIT/ML INSULN.PEN SC ×2 (11:13→17:28)
[2023-11-10 11:36] LABS: Bedside Glucose 163 mg/dL (74-106)
[2023-11-10] MEDS: Senna/Docusate Sodium 1 Tablet 2 TABLET PO (12:08)
[2023-11-10] MEDS: Polyethylene Glycol 3350 17 GM PACKET 34 GM PO (12:08)
--- NOTE | 2023-11-10 17:37 | PN.CC_ITS ---
Assessment & Plan Assessment/Plan (1) Acute respiratory failure with hypoxia and hypercarbia: (2) COVID-19: (3) TACO (obstructive sleep apnea): PLAN: Plan RECOMMENDATIONS: 1. Continue BiPAP with sleep and Airvo during the day. Oxygen requirements are slowly decreasing however remain too high to go home per family wishes. 2. Continue Decadron, Remdesivir 3. Remains on Levaquin. Blood cultures growing strep viridans along with other possible contaminants. Strep throat ends however could be from GI source. Will repeat blood cultures 4. Continue with empiric diuresis as renal function allows 5. Discussed with the patient's son-in-law present at the bedside. Noted t hat the patient's daughters are feeling too emotional and he was sent on their behalf to receive updates. Family meeting with myself and vp digital marketing social media and crm in regards to goals of care. IMPRESSIONS: 1. Acute combined respiratory failure secondary to acute COVID-19 with concern of concomitant pneumonia in the setting of reported COPD Patient's ABG is consistent with acute on chronic combined hypercarbic respiratory failure. Patient reportedly is on room air at baseline, but now has significant oxygen requirements and a right lower lobe infiltrate. Unclear if patient has an element of aspiration given mental status on presentation. Will continue with empiric antibiotics for now. Patient is currently on Decadron and remdesivir secondary to COVID-19. Patient will be continued on BiPAP with sleep and Airvo during the day. Patient has received some diuretics with some improvement. 2. 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 coli. This appears to be pansensitive at this time. Patient reportedly has not been a surgical candidate in the past. Patient is not having any hypotension at this time. to monitor patient closely as it is unclear if she will tolerate fluid boluses secondary to problem #3 3. Elevated troponins/probable diastolic CHF Evaluation by echocardiogram may be somewhat limited secondary to body habitus. Echocardiogram was relatively unremarkable, but limited given her COVID-19 status. Patient was significantly hypoxic on presentation and does have some lower extremity edema. Patient has responded to diuretic therapy. Will continue to monitor closely. Defer to hospitalist on cardiology evaluation 4. Diabetes mellitus type 2 Patient does have diabetes at baseline. Unfortunately, patient does have an indication for Decadron therapy will likely have significant elevation in her blood sugars. Will continue to use insulin for coverage. Patient may require basal insulin moving forward, but appears to be tolerating well at this time 5. Anxiety/depression/hypertension/noncompliant TACO/morbid obesity/reported dementia/advanced age Complicates care, management, recovery and prognosis. Will attempt to clarify CODE STATUS as there appears to be some confusion about the ventilator and intubation relationship. Patient does have a history of dementia and is alert and oriented to self only at this time. Patient has been verified is a DNR/DNI TIME: 40 minutes of critical care time was spent addressing patient's acute respiratory failure, UTI, probable CHF, diabetes, review of all data and collaboration with care team Subjective Subjective Was agitated on Precedex. Discussed with the patient's son-in-law present at the bedside. Noted that the patient's daughters are feeling too emotional and he was sent on their behalf to receive updates. Family meeting with myself and vp digital marketing social media and crm in regards to goals of care. Objective Data Objective Data Vital Signs: Vital Signs Temp Pulse Resp BP Pulse Ox O2 Del Method O2 Flow Rate 36.7 C 56 L 18 117/102 H 98 Airvo 50 11/10/23 17:00 11/10/23 17:00 11/10/23 17:00 11/10/23 17:00 11/10/23 17:00 11/10/23 17:00 11/10/23 17:00 FiO2 52 11/10/23 17:00 Oxygen Flow Rate (L/min) 50 Oxygen Delivery Method Airvo Weight: 141.7 kg Body Mass Index (BMI) 50.4 Intake & Output: Intake and Output for Last 24 Hours 11/08/23 11/09/23 11/10/23 23:59 23:59 23:59 Intake Total 1760.99 / 1858.49 1305.51 / 1362.41 1328.19 / 1328.19 Output Total 4300 / 4300 4400 / 4400 3300 / 3300 Balance -2539.01 / -2441.51 -3094.49 / -3037.59 -1971.81 / -1970.81 Lab / Micro Data 11/10/23 04:00 11/10/23 03:35 Labs: Laboratory Results - last 24 hr 11/09/23 18:10: POC Glucose 180 H 11/10/23 00:36: POC Glucose 140 H 11/10/23 03:35: Sodium 144, Potassium 3.6, Chloride 99, Carbon Dioxide 40.0 H, Anion Gap 5, BUN 29 H, Creatinine 1.09 H, Estim Creat Clear Calc 36.61, Est GFR (MDRD) Af Amer 62, Est GFR (MDRD) Non-Af 51 L, BUN/Creatinine Ratio 26.6 H, Glucose 154 H, Calcium 8.3 L, Total Bilirubin 0.90, AST 25, ALT 28, Alkaline Phosphatase 69, Total Protein 6.6, Albumin 3.0 L, Globulin 3.6, Albumin/Globulin Ratio 0.8 L 11/10/23 04:00: WBC 6.1, RBC 4.51, Hgb 9.8 L, Hct 35.9 L, MCV 79.6 L, MCH 21.7 L , MCHC 27.3 L, RDW Std Deviation 48.3 H, RDW Coeff of Esvin 17.0 H, Plt Count 146 L, MPV 11.3, Immature Gran % (Auto) 0.300, Neut % (Auto) 79.0 H, Lymph % (Auto) 11.7 L, [place] % (Auto) 8.6, Eos % (Auto) 0.2, Baso % (Auto) 0.2, Absolute Neuts (auto) 4.9, Absolute Lymphs (auto) 0.72 L, Nucleated RBC % 0 11/10/23 05:30: POC Glucose 147 H 11/10/23 11:11: POC Glucose 163 H Micro: Microbiology 11/06/23 14:30 Blood Culture (Wb) - Anticubital Left Blood Culture - Preliminary Corynebacterium striatum Rothia kristinae Streptococcus viridans group 11/06/23 14:20 Blood Culture (Wb) - Left Hand Blood Culture - Preliminary 11/08/23 15:30 Urine Catheter - Rapp Legionella Antigen - Final 11/08/23 15:30 Urine Catheter - Rapp Streptococcus pneumoniae Antigen (M - Final 11/06/23 14:50 Urine Catheter - Catheter Urine Culture - Final Escherichia coli Pseudomonas aeruginosa 11/07/23 00:55 Mucosa - Nasopharyngeal Respiratory Panel (PCR) - Final 11/06/23 14:50 Urine Catheter - Rapp Legionella Antigen - Final 11/06/23 14:50 Urine Catheter - Rapp Streptococcus pneumoniae Antigen (M - Final 11/06/23 14:27 Mucosa - Nasopharyngeal SARS-CoV-2, Influenza & RSV (PCR) - Final SARS-CoV-2 (COVID 19) Physical Exam Const alert Constitutional Narrative: Good bipap synchrony. Morbidly obese. Confused. Oriented to self only HEENT normocephalic and head/scalp atraumatic Eyes PERRL, EOMs intact bilaterally and conjunctivae normal Neck full ROM Chest inspection of chest normal Resp Effort and Inspection: Negative for able to speak in complete sentences Auscultation: diminished lung sounds; Negative for rales, rhonchi or wheezes Cardio regular rate, regular rhythm, S1 normal heart sound, S2 normal heart sound, no murmurs, no rub and no gallops Cardio Narrative: Patient did have bradycardia on telemetry overnight related to Precedex, but blood pressures have remained stable Rate: bradycardia GI normal to inspection, nondistended, normoactive bowel sounds Extremity General Extremity: edema; Negative for clubbing Skin no rashes or lesions noted Neuro moves all extremities Psych Activity / Motor Behavior: restless Mood & Affect: anxious and flat affect Charges/Coding Procedures Hospitalists Procedures: 45595 Critical Care 1st Hr
[2023-11-10 18:21] LABS: Bedside Glucose 190 mg/dL (74-106)
[2023-11-10] MEDS: Remdesivir 100 MG in 0.9% Normal Saline (250mL Bag) 230 ML 250 MG IV (21:00)
[2023-11-11] VITALS (32 sets, daily range): BP systolic 104–185; BP diastolic 55–91; PULSE 47–67; RESP 12–32; TEMP 36.2–36.7; O2SAT 91–97; BMI 50.3
[2023-11-11] MEDS: Dexmedetomidine 1,000 mcg in 0.9% NS 240 mL 56.8999999999999986 MCG CONT INF (02:00)
--- NOTE | 2023-11-11 02:00 | NURSING ---
At 0200 this RN noticed the patient had pulled off her Airvo, blood pressure cuff, leads, and ripped out an IV. The patient is not redirectable and is confused. Her precedex is maxed. I contacted the doctor for an order for restraints and restraints were applied.
[2023-11-11 02:22] LABS: Bedside Glucose 138 mg/dL (74-106)
[2023-11-11] MEDS: hydrALAZINE 20 MG/ML Vial 10 MG IV ×2 (04:06→22:36)
[2023-11-11] MEDS: 0.9% Saline Lock 10 ML Syringe IV ×2 (04:07→10:46)
[2023-11-11 04:27] LABS: Absolute Neutrophil Count 4.3 X10^3/uL (2.0-7.7); Eosinophil# 0.05 X10^3/uL; Eosinophils% 0.9 % (0-5); Hematocrit 35.4 % (37-47); Hemoglobin 10.1 g/dL (12.0-15.0); Lymphocyte % 14.1 % (19-41); Mean Corp Hgb Conc 28.5 g/dL (32-36); Mean Corpuscular Hgb 22.1 pg (27.0-32.0); Mean Corpuscular Volume 77.3 fL (81-99); Monocyte# 0.49 X10^3/uL; Monocyte% 8.7 % (0-10); NRBC Flagged by Analyzer 0 % (0-5); Neutrophil % 75.9 % (47-70); POSITIVE COUNT YES; Platelet Count 81 K/mm3 (150-450); RBC Distribution Width CV 17.2 % (11.6-14.6); RBC Distribution Width SD 47.4 fl (35.1-43.9); Red Blood Count 4.58 M/mm3 (4.2-5.4); White Blood Count 5.7 K/mm3 (4.4-11.0)
[2023-11-11 04:33] LABS: Differential Indicated SCAN CRITERIA MET
[2023-11-11 04:51] LABS: Anion Gap 6 (5-15); BUN 25 mg/dL (7-18); BUN/Creat Ratio 27.2 RATIO (10-20); Calcium,Total 8.4 mg/dL (8.5-10.1); Chloride 100 mmol/L (98-107); Creatinine, Serum 0.92 mg/dL (0.55-1.02); EST Glomerular Filtration Rate 62 mL/min (>60); Est Glom Filt Rate - Afr Amer 75 mL/min (>60); Estimated Creatinine Clearance 43.37 ml/min; Glucose 148 mg/dL (74-106); Magnesium 2.4 mg/dL (1.6-2.6); Potassium 3.3 mmol/L (3.5-5.1); Sodium Level 142 mmol/L (136-145)
[2023-11-11 05:17] LABS: Platelet Estimate MOD DEC (ADEQ)
[2023-11-11] MEDS: Miconazole Nitrate 43 GM Bottle 1 APPLIC TOPICAL ×3 (05:59→21:25)
[2023-11-11 06:25] LABS: Bedside Glucose 145 mg/dL (74-106)
[2023-11-11 06:30] LABS: Ionized Calcium 4.37 mg/dL (4.36-5.20)
[2023-11-11] MEDS: Dexmedetomidine 1,000 mcg in 0.9% NS 240 mL 53 MCG CONT INF ×4 (06:39→20:51)
[2023-11-11] MEDS: Potassium Chloride Oral Tablet 20 MEQ 60 MEQ PO (06:55)
[2023-11-11] MEDS: TITRATION PARAMETER CHANGE 1 EACH IV (06:55)
[2023-11-11] MEDS: 0.9% Normal Saline (250mL Bag) 250 ML 15 ML IV (07:00)
--- NOTE | 2023-11-11 07:30 | PN.HOSP_ITS ---
Subjective Subjective Still confused. Required soft restraints. Wanting to get up and walk around. Objective Data Objective Data Vital Signs: Vital Signs Temp Pulse Resp BP Pulse Ox O2 Del Method O2 Flow Rate 36.2 C L 50 L 27 H 157/60 H 95 Airvo 50 11/11/23 04:00 11/11/23 06:00 11/11/23 06:00 11/11/23 06:00 11/11/23 06:00 11/11/23 06:00 11/11/23 06:00 FiO2 50 11/11/23 06:00 Oxygen Flow Rate (L/min) 50 Oxygen Delivery Method Airvo Weight: 141.3 kg Body Mass Index (BMI) 50.3 Intake & Output: Intake and Output for Last 24 Hours 11/09/23 11/10/23 11/11/23 23:59 23:59 23:59 Intake Total 1305.51 / 1362.41 1989.96 / 2088.56 468.23 / 468.23 Output Total 4400 / 4400 4100 / 4100 Balance -3094.49 / -3037.59 -2110.04 / -2010.44 468.23 / 468.23 Lab / Micro Data 11/11/23 04:05 11/11/23 04:05 Labs: Laboratory Results - last 24 hr 11/10/23 11:11: POC Glucose 163 H 11/10/23 17:27: POC Glucose 190 H 11/11/23 00:07: POC Glucose 138 H 11/11/23 04:05: WBC 5.7, RBC 4.58, Hgb 10.1 L, Hct 35.4 L, MCV 77.3 L, MCH 22.1 L, MCHC 28.5 L, RDW Std Deviation 47.4 H, RDW Coeff of Esvin 17.2 H, Plt Count 81 L, MPV TNP, Immature Gran % (Auto) 0.400, Neut % (Auto) 75.9 H, Lymph % (Auto) 14.1 L, [place] % (Auto) 8.7, Eos % (Auto) 0.9, Baso % (Auto) 0.0, Absolute Neuts (auto) 4.3, Absolute Lymphs (auto) 0.80 L, Nucleated RBC % 0, Platelet Estimate MOD DEC, Sodium 142, Potassium 3.3 L, Chloride 100, Carbon Dioxide 36.0 H, Anion Gap 6, BUN 25 H, Creatinine 0.92, Estim Creat Clear Calc 43.37, Est GFR (MDRD) Af Amer 75, Est GFR (MDRD) Non-Af 62, BUN/Creatinine Ratio 27.2 H, Glucose 148 H , Calcium 8.4 L, Magnesium 2.4 11/11/23 06:00: POC Glucose 145 H 11/11/23 06:26: Ionized Calcium 4.37 Micro: Microbiology 11/06/23 14:30 Blood Culture (Wb) - Anticubital Left Blood Culture - Preliminary Corynebacterium striatum Rothia kristinae Streptococcus viridans group 11/06/23 14:20 Blood Culture (Wb) - Left Hand Blood Culture - Preliminary 11/08/23 15:30 Urine Catheter - Rapp Legionella Antigen - Final 11/08/23 15:30 Urine Catheter - Rapp Streptococcus pneumoniae Antigen (M - Final 11/06/23 14:50 Urine Catheter - Catheter Urine Culture - Final Escherichia coli Pseudomonas aeruginosa 11/07/23 00:55 Mucosa - Nasopharyngeal Respiratory Panel (PCR) - Final 11/06/23 14:50 Urine Catheter - Rapp Legionella Antigen - Final 11/06/23 14:50 Urine Catheter - Rapp Streptococcus pneumoniae Antigen (M - Final 11/06/23 14:27 Mucosa - Nasopharyngeal SARS-CoV-2, Influenza & RSV (PCR) - Final SARS-CoV-2 (COVID 19) Physical Exam Const alert and no apparent distress Resp normal respiratory effort and no retractions Cardio regular rate, regular rhythm, S1 normal heart sound and S2 normal heart sound GI normal to inspection, nondistended, normoactive bowel sounds, soft to palpation, non-tender and non-distended Neuro Sensorium / Orientation: awake and alert Assessment & Plan Assessment/Plan (1) COVID-19: PLAN: Plan Acute Metabolic Encephalopathy * Ongoing * secondary to hypercapnia, respiratory failure, underlying illness in patient with underlying dementia. * 11/08/2023: Patient was confused and disoriented yesterday and had Haldol and hydroxyzine. Patient is still confused and disoriented. No meaningful conversation possible. On AVAPS 450 mL. ABG done 7.3 0/78/60 28.6 on AVAPS 40% FiO2. Discussed with the insurance case manager and consulted for same and patient is transferred to ICU for further intensive monitoring and management. * still on dexmedetomidine drip. * Avoid potentiating medications. Acute Hypoxic/hypercapnic Respiratory Failure * secondary to RLL Pneumonia secondary to Acute COVID-19 and concern of concurrent superimposed Bacterial RLL Pneumonia, and CHF exacerbation. * Oscilating between BiPAP and AirVo * Wean oxygen as able. * On remdesivir, dexamethasone and levofloxacin Elevated troponins * Indeterminant troponins, exact etiology unclear: Troponins are 63, 71 and 75 flat and intermittent. Suspect demand (type II) ischemia from above. * EKG in ED no acute evidence of ischemia, CXR w/ concern for right lower lobe pneumonia and possible mild overload. Most likely due to acute myocardial injury/increased cardiac demand from pulmonary infection. Patient on aspirin. * Echo on 11/08: EF 65%. small pericardial effusion. Bacteremia: * Unclear if true infection. * Took several days to show positive results: 1 of 2 Cx on the showing polymicrobial: Corynebacterium, Rothia, Strep viridans. the other showing GPR * Repeat BCx ordered on 11/10 and are currently pending. * ID following. Bacteruria * Suspect not true infection, but colonization. Only 5-10 WBCs on UA. * 11-08 24: Preliminary culture shows E. coli and Pseudomonas aeruginosa. E. coli 80,000-100,000. Pseudomonas less than 1000. * ID following on levofloxacin Acute HFpEF * IV furosemide 40 IV BID. * Echo 11/08: EF 65% COVID-19 * Dexamethasone through the 10th. Remdesivir through the 4th. * ID following. * Onset around 11/04/23, quarantine through 11/14/2023. Chronic conditions: * Diabetes mellitus type II: Hold oral home regimen, SSI * Chronic Kidney Disease Stage IIIa: Admission BUN/Cr 29/11.36, baseline renal function does not appear to be available in the system however she does have a chart reported history of stage IIIa chronic kidney disease and the GFR currently would be consistent with this, will continue to closely monitor especially given IV Lasix usage. 11/08/2023: Patient has Rapp catheter. Dark, concentrated yellow-colored urine. Continue Lasix. * Dementia with mood disturbance chart reported: Complicates presentation, normally on donepezil, holding, will attempt a place near nursing station with fall and aspiration precautions, PT/OT/case management consulted for discharge planning. Given encephalopathy holding all oral medicines as noted. * COPD: Complicates presentation, as noted currently maintained on supplementation, will attempt BiPAP nightly, will transition to ATC budesonide therapy, PRN albuterol, HOB, IS parameters. * Anxiety and depression: Temporarily holding patient home mirtazapine as well as sertraline home regimen given unsafe oral intake, resume once clinically appropriate. * Hypertension: Holding oral regimen as noted, maintain on IV Lasix, PRN hydralazine. * Hyperlipidemia: Temporally holding oral regimen as noted, add back oral statin once appropriate, FLP in AM. * TACO: attempt BiPAP nightly if patient will tolerate but she does have underlying history and per family refuses to wear any PAP therapy. * Morbid Obesity: Weight loss and lifestyle changes encouraged. DVT prophylaxis: Heparin. CODE status: DNRCCA non intubation. Charges/Coding Visit Charges Inpatient E&M: 24835 Subs Hosp L2
[2023-11-11] MEDS: Pantoprazole Sodium 40 MG in 0.9% Normal Saline (100mL MB+) 100 ML 330 MG IV ×2 (10:40→21:25)
[2023-11-11] MEDS: Menthol/Lanolin/Calamine/Znox 113 GM Tube 1 APPLIC TOPICAL ×4 (10:44→21:24)
[2023-11-11] MEDS: Aspirin 300 MG Suppository RC (10:44)
[2023-11-11] MEDS: dexAMETHasone 4 MG/ML Vial 6 MG IV (10:45)
[2023-11-11] MEDS: Furosemide 40 MG/4 ML Vial IV ×2 (10:45→17:11)
[2023-11-11] MEDS: Heparin Injection (Vial) 5,000 UNIT/ML VIAL 5000 UNIT SC ×2 (10:45→22:36)
[2023-11-11] MEDS: Polyethylene Glycol 3350 17 GM PACKET 34 GM PO (10:46)
[2023-11-11] MEDS: Senna/Docusate Sodium 1 Tablet 2 TABLET PO (10:46)
[2023-11-11] MEDS: levoFLOXacin IV 500 MG/100 ML BAG 100 MG IV (11:00)
[2023-11-11] MEDS: Insulin Lispro 100 UNIT/ML INSULN.PEN SC ×2 (11:02→17:08)
[2023-11-11] MEDS: amLODIPine 5 MG Tablet PO (11:12)
--- NOTE | 2023-11-11 11:28 | CASEMGMT ---
Social Work Pt does not have LW/POA on file, as per family does not have these documents. Pt's next of kin are her two daughters Brandy Lemus([phone]) and Aggie Thompson([phone]). [employer]
[2023-11-11 11:59] LABS: Bedside Glucose 175 mg/dL (74-106)
[2023-11-11 12:55] LABS: Anion Gap 6 (5-15); BUN 25 mg/dL (7-18); BUN/Creat Ratio 24.8 RATIO (10-20); Calcium,Total 9.1 mg/dL (8.5-10.1); Chloride 99 mmol/L (98-107); Creatinine, Serum 1.01 mg/dL (0.55-1.02); EST Glomerular Filtration Rate 56 mL/min (>60); Est Glom Filt Rate - Afr Amer 67 mL/min (>60); Estimated Creatinine Clearance 39.51 ml/min; Glucose 194 mg/dL (74-106); Potassium 3.4 mmol/L (3.5-5.1); Sodium Level 142 mmol/L (136-145)
--- NOTE | 2023-11-11 13:06 | CHAPLAIN ---
Type of Pastoral Visit ___ Initial Visit _x__ Follow-up Visit ___ On-call Visit ___ General Patient Visit ___ Spiritual Assessment ___ Family Conference ___ Bereavement ___ Rapid Response ___ Code Blue ___ Other (describe below) Pastoral Care Referral From _x__ Patient ___ Family _x__ Nurse ___ Physician ___ Diamond Picker ___ Director Of Elementary Education ___ Other (describe below) Sacrament/Intervention _x__ Active listening ___ Anointing ___ Faith ___ Bereavement ___ Communion _x__ Marley exploration ___ ___ Life review _x__ Prayer ___ Reconciliation ___ Sacrament of Sick _x__ Supportive presence ___ Wedding ___ Other (describe below) Pastoral Comments RN requested special visit to this patient due to comments pt is making about confession; met with patient and introduced self and role; spoke with pt about her knowledge, experience, and marley in [place]; pt acknowledges and affirms her marley, episcopalian, and confession; pt has some difficulty staying awake; pt does welcome prayer and asks for this film painter to stay with her; pt is reminded of promises in the Bible; pt falls asleep quickly; this film painter left room
[2023-11-11] MEDS: Ipratropium/Albuterol Sulfate 3 ML AMPUL.NEB INHALATION ×2 (13:18→20:35)
--- NOTE | 2023-11-11 13:56 | PCM.PN.ID ---
ID ID: Route of nutrition/ use of supplements: [] Nutritional Intake: [] IV Site: [] Rapp Catheter: [] Patient currently on high flow nasal cannula more responsive and alert. States of feeling better. Currently on low-dose dexamethasone plus DVT prophylaxis. Also on levofloxacin empirically. Vital signs reviewed currently euthermic overall hemodynamically stable lungs are clear heart exam S1-S2 abdomen is obese but soft Assessment & Plan Assessment/Plan (1) COVID-19: PLAN: Continue low-dose dexamethasone plus DVT prophylaxis and continue supportive care. A 5 to 7-day course of empiric levofloxacin will be reasonable.
--- NOTE | 2023-11-11 16:09 | PN.CC_ITS ---
Assessment & Plan Assessment/Plan (1) Acute respiratory failure with hypoxia and hypercarbia: (2) COVID-19: (3) TACO (obstructive sleep apnea): PLAN: Plan RECOMMENDATIONS: 1. Continue BiPAP with sleep and Airvo during the day. Oxygen requirements are slowly decreasing however remain too high to go home per family wishes. 2. Continue Decadron, she will complete Remdesivir today 3. Remains on Levaquin. Blood cultures growing strep viridans along with other possible contaminants. Strep throat ends however could be from GI source. repeat blood cultures sent 4. Continue with diuresis as renal function allows 5. Discussed with the patient's son-in-law present at the bedside yesterday. Noted that the patient's daughters are feeling too emotional and he was sent on their behalf to receive updates. 6. Add amlodipine for HTN IMPRESSIONS: 1. Acute combined respiratory failure secondary to acute COVID-19 with concern of concomitant pneumonia in the setting of reported COPD Patient's ABG is consistent with acute on chronic combined hypercarbic respiratory failure. Patient reportedly is on room air at baseline, but now has significant oxygen requirements and a right lower lobe infiltrate. Unclear if patient has an element of aspiration given mental status on presentation. Will continue with empiric antibiotics for now. Patient is currently on Decadron and completed remdesivir secondary to COVID-19. Patient will be continued on BiPAP with sleep and Airvo during the day. Patient is on diuretics with some improvement. 2. 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 coli. This appears to be pansensitive at this time. Patient reportedly has not been a surgical candidate in the past. Patient is not having any hypotension at this time 3. Elevated troponins/probable diastolic CHF Evaluation by echocardiogram may be somewhat limited secondary to body habitus. Echocardiogram was relatively unremarkable, but limited given her COVID-19 status. Patient was significantly hypoxic on presentation and does have some lower extremity edema. Patient has responded to diuretic therapy. Will continue to monitor closely. Defer to hospitalist on cardiology evaluation 4. Diabetes mellitus type 2 Patient does have diabetes at baseline. Unfortunately, patient does have an indication for Decadron therapy will likely have significant elevation in her blood sugars. Will continue to use insulin for coverage. Patient may require basal insulin moving forward, but appears to be tolerating well at this time 5. Anxiety/depression/hypertension/noncompliant TACO/morbid obesity/reported dementia/advanced age Complicates care, management, recovery and prognosis. Will attempt to clarify CODE STATUS as there appears to be some confusion about the ventilator and intubation relationship. Patient does have a history of dementia and is alert and oriented to self only at this time. Patient has been verified is a DNR/DNI TIME: 35 minutes of critical care time was spent addressing patient's acute respiratory failure, UTI, probable CHF, diabetes, review of all data and collaboration with care team Subjective Subjective Her agitation has worsened she was attempting to pull IVs. She was required to be placed in restraints. Objective Data Objective Data Vital Signs: Vital Signs Temp Pulse Resp BP Pulse Ox O2 Del Method O2 Flow Rate 36.7 C 54 L 12 130/65 H 95 Airvo 50 11/11/23 12:00 11/11/23 15:00 11/11/23 15:00 11/11/23 15:00 11/11/23 15:00 11/11/23 15:00 11/11/23 15:00 FiO2 45 11/11/23 15:00 Oxygen Flow Rate (L/min) 50 Oxygen Delivery Method Airvo Weight: 141.3 kg Body Mass Index (BMI) 50.3 Intake & Output: Intake and Output for Last 24 Hours 11/09/23 11/10/23 11/11/23 23:59 23:59 23:59 Intake Total 1305.51 / 1362.41 1989.96 / 2088.56 2381.91 / 2381.91 Output Total 4400 / 4400 4100 / 4100 1675 / 1675 Balance -3094.49 / -3037.59 -2110.04 / -2010.44 706.91 / 706.91 Lab / Micro Data 11/11/23 04:05 11/11/23 12:15 Labs: Laboratory Results - last 24 hr 11/10/23 17:27: POC Glucose 190 H 11/11/23 00:07: POC Glucose 138 H 11/11/23 04:05: WBC 5.7, RBC 4.58, Hgb 10.1 L, Hct 35.4 L, MCV 77.3 L, MCH 22.1 L, MCHC 28.5 L, RDW Std Deviation 47.4 H, RDW Coeff of Esvin 17.2 H, Plt Count 81 L, MPV TNP, Immature Gran % (Auto) 0.400, Neut % (Auto) 75.9 H, Lymph % (Auto) 14.1 L, [place] % (Auto) 8.7, Eos % (Auto) 0.9, Baso % (Auto) 0.0, Absolute Neuts (auto) 4.3, Absolute Lymphs (auto) 0.80 L, Nucleated RBC % 0, Platelet Estimate MOD DEC, Sodium 142, Potassium 3.3 L, Chloride 100, Carbon Dioxide 36.0 H, Anion Gap 6, BUN 25 H, Creatinine 0.92, Estim Creat Clear Calc 43.37, Est GFR (MDRD) Af Amer 75, Est GFR (MDRD) Non-Af 62, BUN/Creatinine Ratio 27.2 H, Glucose 148 H , Calcium 8.4 L, Magnesium 2.4 11/11/23 06:00: POC Glucose 145 H 11/11/23 06:26: Ionized Calcium 4.37 11/11/23 11:00: POC Glucose 175 H 11/11/23 12:15: Sodium 142, Potassium 3.4 L, Chloride 99, Carbon Dioxide 37.0 H, Anion Gap 6, BUN 25 H, Creatinine 1.01, Estim Creat Clear Calc 39.51, Est GFR (MDRD) Af Amer 67, Est GFR (MDRD) Non-Af 56 L, BUN/Creatinine Ratio 24.8 H, Glucose 194 H, Calcium 9.1 Micro: Microbiology 11/06/23 14:20 Blood Culture (Wb) - Left Hand Blood Culture - Preliminary Actinotignum schaalii 11/06/23 14:30 Blood Culture (Wb) - Anticubital Left Blood Culture - Preliminary Corynebacterium striatum Rothia kristinae Streptococcus viridans group 11/08/23 15:30 Urine Catheter - Rapp Legionella Antigen - Final 11/08/23 15:30 Urine Catheter - Rapp Streptococcus pneumoniae Antigen (M - Final 11/06/23 14:50 Urine Catheter - Catheter Urine Culture - Final Escherichia coli Pseudomonas aeruginosa 11/07/23 00:55 Mucosa - Nasopharyngeal Respiratory Panel (PCR) - Final 11/06/23 14:50 Urine Catheter - Rapp Legionella Antigen - Final 11/06/23 14:50 Urine Catheter - Rapp Streptococcus pneumoniae Antigen (M - Final 11/06/23 14:27 Mucosa - Nasopharyngeal SARS-CoV-2, Influenza & RSV (PCR) - Final SARS-CoV-2 (COVID 19) Physical Exam Const alert Constitutional Narrative: Good bipap synchrony. Morbidly obese. Confused. Oriented to self only General Appearance: cooperative Resp Auscultation: diminished lung sounds; Negative for rales or wheezes Cardio regular rate, regular rhythm, S1 normal heart sound and S2 normal heart sound GI normal to inspection, nondistended, normoactive bowel sounds Extremity General Extremity: edema Neuro moves all extremities Psych Activity / Motor Behavior: restless Charges/Coding Procedures Hospitalists Procedures: [id number] Critical Care 1st Hr
[2023-11-11 17:43] LABS: Bedside Glucose 201 mg/dL (74-106)
--- NOTE | 2023-11-11 22:40 | NURSING ---
Assumed care of pt.
--- NOTE | 2023-11-11 23:39 | NURSING ---
Pt repeatedly pulling BiPAP mask off, Airvo replaced at previous settings. Pt began yelling at this RN you think you're funny don't you, I'm dying and nobody will listen to me. Pt reminded of current VS and assessment, no active s/sx of dying in process, pt not consolable, disoriented and remains belligerent while attempting to remove medical monitoring equipment.
[2023-11-12] VITALS (27 sets, daily range): BP systolic 97–167; BP diastolic 54–96; PULSE 51–84; RESP 15–26; TEMP 36.6–37.1; O2SAT 93–97; BMI 51.1
[2023-11-12] MEDS: Dexmedetomidine 1,000 mcg in 0.9% NS 240 mL 53 MCG CONT INF (01:35)
[2023-11-12] MEDS: 0.9% Normal Saline (250mL Bag) 250 ML 15 ML IV (03:44)
[2023-11-12 04:51] LABS: Absolute Lymphocyte Count 0.88 X10^3/uL (0.83-4.51); Absolute Neutrophil Count 5.7 X10^3/uL (2.0-7.7); Basophil# 0.01 X10^3/uL; Basophil% 0.1 % (0-1); Eosinophil# 0.05 X10^3/uL; Eosinophils% 0.7 % (0-5); Hematocrit 36.1 % (37-47); Hemoglobin 10.1 g/dL (12.0-15.0); Lymphocyte # 0.88 X10^3/ul (0.83-4.51); Lymphocyte % 12.2 % (19-41); Mean Corpuscular Hgb 21.5 pg (27.0-32.0); Mean Corpuscular Volume 76.8 fL (81-99); Monocyte# 0.58 X10^3/uL; Monocyte% 8.1 % (0-10); NRBC Flagged by Analyzer 0 % (0-5); Neutrophil # 5.65 X10^3/uL (2.7-7.7); Neutrophil % 78.6 % (47-70); Platelet Count 127 K/mm3 (150-450); RBC Distribution Width CV 17.3 % (11.6-14.6); RBC Distribution Width SD 47.4 fl (35.1-43.9); White Blood Count 7.2 K/mm3 (4.4-11.0)
[2023-11-12 05:03] LABS: Anion Gap 6 (5-15); BUN 27 mg/dL (7-18); BUN/Creat Ratio 27.4 RATIO (10-20); Calcium,Total 8.8 mg/dL (8.5-10.1); Chloride 100 mmol/L (98-107); Creatinine, Serum 0.98 mg/dL (0.55-1.02); EST Glomerular Filtration Rate 57 mL/min (>60); Est Glom Filt Rate - Afr Amer 69 mL/min (>60); Estimated Creatinine Clearance 40.72 ml/min; Glucose 131 mg/dL (74-106); Potassium 3.3 mmol/L (3.5-5.1); Sodium Level 140 mmol/L (136-145)
[2023-11-12] MEDS: Dexmedetomidine 1,000 mcg in 0.9% NS 240 mL 54.1000000000000014 MCG CONT INF ×3 (06:17→22:49)
[2023-11-12] MEDS: TITRATION PARAMETER CHANGE 1 EACH IV (06:34)
[2023-11-12] MEDS: Miconazole Nitrate 43 GM Bottle 1 APPLIC TOPICAL ×3 (06:34→22:16)
--- NOTE | 2023-11-12 07:30 | PN.HOSP_ITS ---
Subjective Subjective Increased confusion and agitation last night. Improved today. Objective Data Objective Data Vital Signs: Vital Signs Temp Pulse Resp BP Pulse Ox O2 Del Method O2 Flow Rate 37.1 C 58 L 20 H 164/74 H 97 Airvo 50 11/12/23 04:00 11/12/23 07:00 11/12/23 07:00 11/12/23 07:00 11/12/23 07:00 11/12/23 07:00 11/12/23 07:00 FiO2 45 11/12/23 07:00 Oxygen Flow Rate (L/min) 50 Oxygen Delivery Method Airvo Weight: 144.3 kg Body Mass Index (BMI) 51.1 Intake & Output: Intake and Output for Last 24 Hours 11/10/23 11/11/23 11/12/23 23:59 23:59 23:59 Intake Total 1989.96 / 2088.56 3567.18 / 3620.18 869.82 / 869.82 Output Total 4100 / 4100 1875 / 2875 1300 / 1300 Balance -2110.04 / -2011.44 1692.18 / 745.18 -430.18 / -430.18 Lab / Micro Data 11/12/23 04:40 11/12/23 04:40 Labs: Laboratory Results - last 24 hr 11/11/23 11:00: POC Glucose 175 H 11/11/23 12:15: Sodium 142, Potassium 3.4 L, Chloride 99, Carbon Dioxide 37.0 H, Anion Gap 6, BUN 25 H, Creatinine 1.01, Estim Creat Clear Calc 39.51, Est GFR (MDRD) Af Amer 67, Est GFR (MDRD) Non-Af 56 L, BUN/Creatinine Ratio 24.8 H, Glucose 194 H, Calcium 9.1 11/11/23 17:04: POC Glucose 201 H 11/12/23 04:40: WBC 7.2, RBC 4.70, Hgb 10.1 L, Hct 36.1 L, MCV 76.8 L, MCH 21.5 L, MCHC 28.0 L, RDW Std Deviation 47.4 H, RDW Coeff of Esvin 17.3 H, Plt Count 127 L, MPV 11.0, Immature Gran % (Auto) 0.300, Neut % (Auto) 78.6 H, Lymph % (Auto) 12.2 L, [place] % (Auto) 8.1, Eos % (Auto) 0.7, Baso % (Auto) 0.1, Absolute Neuts (auto) 5.7, Absolute Lymphs (auto) 0.88, Nucleated RBC % 0, Sodium 140, Potassium 3.3 L, Chloride 100, Carbon Dioxide 34.0 H, Anion Gap 6, BUN 27 H, Creatinine 0.98, Estim Creat Clear Calc 40.72, Est GFR (MDRD) Af Amer 69, Est GFR (MDRD) Non-Af 57 L, BUN/Creatinine Ratio 27.4 H, Glucose 131 H, Calcium 8.8 Micro: Microbiology 11/06/23 14:20 Blood Culture (Wb) - Left Hand Blood Culture - Preliminary Actinotignum schaalii 11/06/23 14:30 Blood Culture (Wb) - Anticubital Left Blood Culture - Preliminary Corynebacterium striatum Rothia kristinae Streptococcus viridans group 11/08/23 15:30 Urine Catheter - Rapp Legionella Antigen - Final 11/08/23 15:30 Urine Catheter - Rapp Streptococcus pneumoniae Antigen (M - Final 11/06/23 14:50 Urine Catheter - Catheter Urine Culture - Final Escherichia coli Pseudomonas aeruginosa 11/07/23 00:55 Mucosa - Nasopharyngeal Respiratory Panel (PCR) - Final 11/06/23 14:50 Urine Catheter - Rapp Legionella Antigen - Final 11/06/23 14:50 Urine Catheter - Rapp Streptococcus pneumoniae Antigen (M - Final 11/06/23 14:27 Mucosa - Nasopharyngeal SARS-CoV-2, Influenza & RSV (PCR) - Final SARS-CoV-2 (COVID 19) Physical Exam Const alert and no apparent distress Resp normal respiratory effort, no retractions, no use of accessory muscles and clear to auscultation bilaterally Cardio regular rate, regular rhythm, S1 normal heart sound and S2 normal heart sound GI normal to inspection, nondistended, normoactive bowel sounds, soft to palpation, non-tender and non-distended Extremity normal to inspection Assessment & Plan Assessment/Plan (1) COVID-19: PLAN: Plan Acute Metabolic Encephalopathy * Ongoing * secondary to hypercapnia, respiratory failure, underlying illness in patient with underlying dementia. * 11/08/2023: Patient was confused and disoriented yesterday and had Haldol and hydroxyzine. Patient is still confused and disoriented. No meaningful conversation possible. On AVAPS 450 mL. ABG done 7.3 0/78/60 28.6 on AVAPS 40% FiO2. Discussed with the windshield repair technician and consulted for same and patient is transferred to ICU for further intensive monitoring and management. * still on dexmedetomidine drip. Acute Hypoxic/hypercapnic Respiratory Failure * secondary to RLL Pneumonia secondary to Acute COVID-19 and concern of concurrent superimposed Bacterial RLL Pneumonia, and CHF exacerbation. * Oscilating between BiPAP and AirVo * Wean oxygen as able. * On remdesivir, dexamethasone and levofloxacin Elevated troponins * Indeterminant troponins, exact etiology unclear: Troponins are 63, 71 and 75 flat and intermittent. Suspect demand (type II) ischemia from above. * EKG in ED no acute evidence of ischemia, CXR w/ concern for right lower lobe pneumonia and possible mild overload. Most likely due to acute myocardial injury/increased cardiac demand from pulmonary infection. Patient on aspirin. * Echo on 11/08: EF 65%. small pericardial effusion. Bacteremia: * Unclear if true infection. * Took several days to show positive results: 1 of 2 Cx on the showing polymicrobial: Corynebacterium, Rothia, Strep viridans. the other showing Actinotignum schaalii. * Repeat BCx ordered on 11/10 and are currently pending. * ID following. Bacteruria * Suspect not true infection, but colonization. Only 5-10 WBCs on UA. * - 24: Preliminary culture shows E. coli and Pseudomonas aeruginosa. E. coli 80,000-100,000. Pseudomonas less than 1000. * ID following on levofloxacin Acute HFpEF * IV furosemide 40 IV BID. * Echo 11/08: EF 65% COVID-19 * Dexamethasone through the . Remdesivir through the . * ID following. * Onset around 11/04/23, quarantine through 11/14/2023. Chronic conditions: * Diabetes mellitus type II: Hold oral home regimen, SSI * Chronic Kidney Disease Stage IIIa: Admission BUN/Cr 29/11.36, baseline renal function does not appear to be available in the system however she does have a chart reported history of stage IIIa chronic kidney disease and the GFR currently would be consistent with this, will continue to closely monitor especially given IV Lasix usage. 11/08/2023: Patient has Rapp catheter. Dark, concentrated yellow-colored urine. Continue Lasix. * Dementia with mood disturbance chart reported: Complicates presentation, normally on donepezil, holding, will attempt a place near nursing station with fall and aspiration precautions, PT/OT/case management consulted for discharge planning. Given encephalopathy holding all oral medicines as noted. * COPD: Complicates presentation, as noted currently maintained on supplementation, will attempt BiPAP nightly, will transition to ATC budesonide therapy, PRN albuterol, HOB, IS parameters. * Anxiety and depression: Temporarily holding patient home mirtazapine as well as sertraline home regimen given unsafe oral intake, resume once clinically appropriate. * Hypertension: Holding oral regimen as noted, maintain on IV Lasix, PRN hydralazine. * Hyperlipidemia: Temporally holding oral regimen as noted, add back oral statin once appropriate, FLP in AM. * TACO: attempt BiPAP nightly if patient will tolerate but she does have under lying history and per family refuses to wear any PAP therapy. * Morbid Obesity: Weight loss and lifestyle changes encouraged. DVT prophylaxis: Heparin. CODE status: DNRCCA non intubation. Disposition: TBD. Anticipate slow overall recovery. Charges/Coding Visit Charges Inpatient E&M: 36895 Subs Hosp L2
[2023-11-12] MEDS: Aspirin 81 MG TAB.CHEW PO (08:51)
[2023-11-12] MEDS: amLODIPine 5 MG Tablet PO (08:52)
[2023-11-12] MEDS: Insulin Lispro 100 UNIT/ML INSULN.PEN SC ×3 (08:57→18:00)
[2023-11-12] MEDS: Menthol/Lanolin/Calamine/Znox 113 GM Tube 1 APPLIC TOPICAL ×4 (09:00→22:16)
[2023-11-12] MEDS: Heparin Injection (Vial) 5,000 UNIT/ML VIAL 5000 UNIT SC ×2 (09:00→22:12)
[2023-11-12] MEDS: dexAMETHasone 4 MG/ML Vial 6 MG IV (09:02)
[2023-11-12] MEDS: 0.9% Saline Lock 10 ML Syringe IV ×3 (09:04→15:50)
[2023-11-12] MEDS: Furosemide 40 MG/4 ML Vial IV ×2 (09:06→18:09)
[2023-11-12] MEDS: Pantoprazole Sodium 40 MG in 0.9% Normal Saline (100mL MB+) 100 ML 330 MG IV ×2 (09:09→22:11)
[2023-11-12 09:33] LABS: Bedside Glucose 154 mg/dL (74-106)
[2023-11-12] MEDS: levoFLOXacin IV 500 MG/100 ML BAG 100 MG IV (09:55)
[2023-11-12] MEDS: Senna/Docusate Sodium 1 Tablet 2 TABLET PO (09:57)
[2023-11-12] MEDS: Polyethylene Glycol 3350 17 GM PACKET 34 GM PO (09:57)
[2023-11-12] MEDS: Potassium Chloride 10mEq/100mL 10 MEQ/100 ML IV.SOLN. 100 MEQ IV BOLUS ×4 (11:14→16:09)
[2023-11-12 13:07] LABS: Bedside Glucose 235 mg/dL (74-106)
--- NOTE | 2023-11-12 17:34 | PN.CC_ITS ---
Assessment & Plan Assessment/Plan (1) Acute respiratory failure with hypoxia and hypercarbia: (2) COVID-19: (3) TACO (obstructive sleep apnea): PLAN: Plan RECOMMENDATIONS: 1. She remains on Airvo. She really is refusing to wear her BiPAP at night 2. Continue decadron, completed remdesivir yesterday 3. Remains on Levaquin. Blood cultures growing strep viridans along with ot her possible contaminants. Strep viridans could be from GI source. repeat blood cultures and negative so far 4. Continue with diuresis as renal function allows 5. Discussed with the patient's son-in-law present at the bedside 11/10. Noted that the patient's daughters are feeling too emotional and he was sent on their behalf to receive updates. Refer to note 11/10 for details. Family has not been back since for further discussions 6. HTN improved with amlodipine IMPRESSIONS: 1. Acute combined respiratory failure secondary to acute COVID-19 with c oncern of concomitant pneumonia in the setting of reported COPD Patient's ABG is consistent with acute on chronic combined hypercarbic respiratory failure. Patient reportedly is on room air at baseline, but now has significant oxygen requirements and a right lower lobe infiltrate. Unclear if patient has an element of aspiration given mental status on presentation. Will continue with empiric antibiotics for now. Patient is currently on Decadron and completed remdesivir secondary to COVID-19. Patient will be continued on BiPAP with sleep and Airvo during the day. Patient is on diuretics with some improvement. 2. 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 coli. This appears to be pansensitive at this time. Patient reportedly has not been a surgical candidate in the past. Patient is not having any hypotension at this time 3. Elevated troponins/probable diastolic CHF Evaluation by echocardiogram may be somewhat limited secondary to body habitus. Echocardiogram was relatively unremarkable, but limited given her COVID-19 status. Patient was significantly hypoxic on presentation and does have some lower extremity edema. Patient has responded to diuretic therapy. Will continue to monitor closely. Defer to hospitalist on cardiology evaluation 4. Diabetes mellitus type 2 Patient does have diabetes at baseline. Unfortunately, patient does have an indication for Decadron therapy will likely have significant elevation in her blood sugars. Will continue to use insulin for coverage. Patient may require basal insulin moving forward, but appears to be tolerating well at this time 5. Anxiety/depression/hypertension/noncompliant TACO/morbid obesity/reported dementia/advanced age Complicates care, management, recovery and prognosis. Will attempt to clarify CODE STATUS as there appears to be some confusion about the ventilator and intubation relationship. Patient does have a history of dementia and is alert and oriented to self only at this time. Patient has been verified is a DNR/DNI Subjective Subjective Pleasant this AM. She is off restrains Objective Data Objective Data Vital Signs: Vital Signs Temp Pulse Resp BP Pulse Ox O2 Del Method O2 Flow Rate 37.0 C 69 18 97/54 L 95 Airvo 50 11/12/23 12:00 11/12/23 15:00 11/12/23 15:00 11/12/23 15:00 11/12/23 15:00 11/12/23 15:00 11/12/23 15:00 FiO2 45 11/12/23 15:00 Oxygen Flow Rate (L/min) 50 Oxygen Delivery Method Airvo Weight: 144.3 kg Body Mass Index (BMI) 51.1 Intake & Output: Intake and Output for Last 24 Hours 11/10/23 11/11/23 11/12/23 23:59 23:59 23:59 Intake Total 1989.96 / 2088.56 3567.18 / 3620.18 1758.24 / 1758.24 Output Total 4100 / 4100 1875 / 2875 2600 / 2600 Balance -2110.04 / -2010.44 1692.18 / 745.18 -841.76 / -841.76 Lab / Micro Data 11/12/23 04:40 11/12/23 04:40 Labs: Laboratory Results - last 24 hr 11/11/23 17:04: POC Glucose 201 H 11/12/23 04:40: WBC 7.2, RBC 4.70, Hgb 10.1 L, Hct 36.1 L, MCV 76.8 L, MCH 21.5 L, MCHC 28.0 L, RDW Std Deviation 47.4 H, RDW Coeff of Esvin 17.3 H, Plt Count 127 L, MPV 11.0, Immature Gran % (Auto) 0.300, Neut % (Auto) 78.6 H, Lymph % (Auto) 12.2 L, [place] % (Auto) 8.1, Eos % (Auto) 0.7, Baso % (Auto) 0.1, Absolute Neuts (auto) 5.7, Absolute Lymphs (auto) 0.88, Nucleated RBC % 0, Sodium 140, Potassium 3.3 L, Chloride 100, Carbon Dioxide 34.0 H, Anion Gap 6, BUN 27 H, Creatinine 0.98, Estim Creat Clear Calc 40.72, Est GFR (MDRD) Af Amer 69, Est GFR (MDRD) Non-Af 57 L, BUN/Creatinine Ratio 27.4 H, Glucose 131 H, Calcium 8.8 11/12/23 08:53: POC Glucose 154 H 11/12/23 11:54: POC Glucose 235 H Micro: Microbiology 11/06/23 14:20 Blood Culture (Wb) - Left Hand Blood Culture - Final Actinotignum schaalii Coag Negative Staph 11/06/23 14:30 Blood Culture (Wb) - Anticubital Left Blood Culture - Final Corynebacterium striatum Rothia kristinae Streptococcus viridans group 11/10/23 18:29 Blood Culture (Wb) - Arm Right Blood Culture - Preliminary No growth in 48 hours. 11/10/23 18:21 Blood Culture (Wb) - Right Hand Blood Culture - Preliminary No growth in 48 hours. 11/08/23 15:30 Urine Catheter - Rapp Legionella Antigen - Final 11/08/23 15:30 Urine Catheter - Rapp Streptococcus pneumoniae Antigen (M - Final 11/06/23 14:50 Urine Catheter - Catheter Urine Culture - Final Escherichia coli Pseudomonas aeruginosa 11/07/23 00:55 Mucosa - Nasopharyngeal Respiratory Panel (PCR) - Final 11/06/23 14:50 Urine Catheter - Rapp Legionella Antigen - Final 11/06/23 14:50 Urine Catheter - Rapp Streptococcus pneumoniae Antigen (M - Final 11/06/23 14:27 Mucosa - Nasopharyngeal SARS-CoV-2, Influenza & RSV (PCR) - Final SARS-CoV-2 (COVID 19) Physical Exam Const alert Constitutional Narrative: Good bipap synchrony. Morbidly obese. Confused. Oriented to self only General Appearance: cooperative Resp Effort and Inspection: Negative for able to speak in complete sentences Auscultation: diminished lung sounds; Negative for rales, rhonchi or wheezes Cardio S1 normal heart sound and S2 normal heart sound Rate: bradycardia GI normal to inspection, nondistended, normoactive bowel sounds Extremity General Extremity: edema Neuro moves all extremities Charges/Coding Visit Charges Inpatient E&M: 79650 Subs Hosp L3
[2023-11-12] MEDS: Dexmedetomidine 1,000 mcg in 0.9% NS 240 mL 46.8999999999999986 MCG CONT INF (18:21)
[2023-11-12 18:41] LABS: Bedside Glucose 219 mg/dL (74-106)
[2023-11-12] MEDS: Ipratropium/Albuterol Sulfate 3 ML AMPUL.NEB INHALATION (21:10)
[2023-11-13] VITALS (24 sets, daily range): BP systolic 85–154; BP diastolic 46–117; PULSE 52–110; RESP 16–30; TEMP 36.6–36.8; O2SAT 90–100; BMI 50.6
[2023-11-13] MEDS: Dexmedetomidine 1,000 mcg in 0.9% NS 240 mL 54.1000000000000014 MCG CONT INF (03:27)
[2023-11-13] MEDS: 0.9% Saline Lock 10 ML Syringe IV ×5 (04:09→22:08)
[2023-11-13] MEDS: Miconazole Nitrate 43 GM Bottle 1 APPLIC TOPICAL ×3 (04:09→22:05)
[2023-11-13 04:38] LABS: Absolute Lymphocyte Count 0.93 X10^3/uL (0.83-4.51); Absolute Neutrophil Count 6.2 X10^3/uL (2.0-7.7); Eosinophils% 1.3 % (0-5); Hematocrit 37.3 % (37-47); Hemoglobin 10.4 g/dL (12.0-15.0); Lymphocyte # 0.93 X10^3/ul (0.83-4.51); Lymphocyte % 11.8 % (19-41); Mean Corp Hgb Conc 27.9 g/dL (32-36); Mean Corpuscular Hgb 21.5 pg (27.0-32.0); Mean Corpuscular Volume 77.2 fL (81-99); Monocyte# 0.59 X10^3/uL; Monocyte% 7.5 % (0-10); NRBC Flagged by Analyzer 0 % (0-5); Platelet Count 120 K/mm3 (150-450); RBC Distribution Width CV 17.7 % (11.6-14.6); RBC Distribution Width SD 48.3 fl (35.1-43.9); Red Blood Count 4.83 M/mm3 (4.2-5.4); White Blood Count 7.9 K/mm3 (4.4-11.0)
[2023-11-13 04:57] LABS: Anion Gap 6 (5-15); BUN 25 mg/dL (7-18); BUN/Creat Ratio 26.9 RATIO (10-20); Calcium,Total 8.7 mg/dL (8.5-10.1); Chloride 102 mmol/L (98-107); Creatinine, Serum 0.93 mg/dL (0.55-1.02); EST Glomerular Filtration Rate 61 mL/min (>60); Est Glom Filt Rate - Afr Amer 74 mL/min (>60); Estimated Creatinine Clearance 42.91 ml/min; Glucose 141 mg/dL (74-106); Potassium 3.7 mmol/L (3.5-5.1); Sodium Level 138 mmol/L (136-145)
--- NOTE | 2023-11-13 07:20 | PN.HOSP_ITS ---
Subjective Subjective Anxious that she is going to . Oxygen has been weaned down to nasal canula. Objective Data Objective Data Vital Signs: Vital Signs Temp Pulse Resp BP Pulse Ox O2 Del Method O2 Flow Rate 36.6 C 55 L 20 H 149/68 H 95 Airvo 50 11/13/23 04:00 11/13/23 06:00 11/13/23 06:00 11/13/23 06:00 11/13/23 06:00 11/13/23 06:00 11/13/23 06:00 FiO2 35 11/13/23 06:00 Oxygen Flow Rate (L/min) 50 Oxygen Delivery Method Airvo Weight: 142.3 kg Body Mass Index (BMI) 50.6 Intake & Output: Intake and Output for Last 24 Hours 11/11/23 11/12/23 11/13/23 23:59 23:59 23:59 Intake Total 3567.18 / 3620.18 2774.47 / 2828.57 378.04 / 378.04 Output Total 1875 / 2875 4150 / 4150 250 / 250 Balance 1692.18 / 745.18 -1375.53 / -1321.43 128.04 / 128.04 Lab / Micro Data 11/13/23 04:25 11/13/23 04:25 Labs: Laboratory Results - last 24 hr 11/12/23 08:53: POC Glucose 154 H 11/12/23 11:54: POC Glucose 235 H 11/12/23 17:56: POC Glucose 219 H 11/13/23 04:25: WBC 7.9, RBC 4.83, Hgb 10.4 L, Hct 37.3, MCV 77.2 L, MCH 21.5 L, MCHC 27.9 L, RDW Std Deviation 48.3 H, RDW Coeff of Esvin 17.7 H, Plt Count 120 L, MPV 11.0, Immature Gran % (Auto) 0.400, Neut % (Auto) 79.0 H, Lymph % (Auto) 11.8 L, [place] % (Auto) 7.5, Eos % (Auto) 1.3, Baso % (Auto) 0.0, Absolute Neuts (auto) 6.2, Absolute Lymphs (auto) 0.93, Nucleated RBC % 0, Sodium 138, Potassium 3.7, Chloride 102, Carbon Dioxide 30.0, Anion Gap 6, BUN 25 H, Creatinine 0.93, Estim Creat Clear Calc 42.91, Est GFR (MDRD) Af Amer 74, Est GFR (MDRD) Non-Af 61, BUN/Creatinine Ratio 26.9 H, Glucose 141 H, Calcium 8.7 Micro: Microbiology 11/06/23 14:20 Blood Culture (Wb) - Left Hand Blood Culture - Final Actinotignum schaalii Coag Negative Staph 11/06/23 14:30 Blood Culture (Wb) - Anticubital Left Blood Culture - Final Corynebacterium striatum Rothia kristinae Streptococcus viridans group 11/10/23 18:29 Blood Culture (Wb) - Arm Right Blood Culture - Preliminary No growth in 48 hours. 11/10/23 18:21 Blood Culture (Wb) - Right Hand Blood Culture - Preliminary No growth in 48 hours. 11/08/23 15:30 Urine Catheter - Rapp Legionella Antigen - Final 11/08/23 15:30 Urine Catheter - Rapp Streptococcus pneumoniae Antigen (M - Final 11/06/23 14:50 Urine Catheter - Catheter Urine Culture - Final Escherichia coli Pseudomonas aeruginosa 11/07/23 00:55 Mucosa - Nasopharyngeal Respiratory Panel (PCR) - Final 11/06/23 14:50 Urine Catheter - Rapp Legionella Antigen - Final 11/06/23 14:50 Urine Catheter - Rapp Streptococcus pneumoniae Antigen (M - Final 11/06/23 14:27 Mucosa - Nasopharyngeal SARS-CoV-2, Influenza & RSV (PCR) - Final SARS-CoV-2 (COVID 19) Physical Exam Const no apparent distress Constitutional Narrative: confused. afebrile. no respiratory distress. HEENT head/scalp atraumatic Resp normal respiratory effort and no retractions Cardio regular rate, regular rhythm and S1 normal heart sound Assessment & Plan Assessment/Plan (1) COVID-19: PLAN: Plan Acute Metabolic Encephalopathy * Ongoing * secondary to hypercapnia, respiratory failure, underlying illness in patient with underlying dementia. * 11/08/2023: Patient was confused and disoriented yesterday and had Haldol and hydroxyzine. Patient is still confused and disoriented. No meaningful conversation possible. On AVAPS 450 mL. ABG done 7.3 0/60 28.6 on AVAPS 40% FiO2. Discussed with the tire technician and consulted for same and patient is transferred to ICU for further intensive monitoring and management. * still on dexmedetomidine drip, though being weaned Acute Hypoxic/hypercapnic Respiratory Failure * secondary to RLL Pneumonia secondary to Acute COVID-19 and concern of concurrent superimposed Bacterial RLL Pneumonia, and CHF exacerbation. * Weaned to nasal canula 4l/m * Wean oxygen as able. * On remdesivir, dexamethasone and levofloxacin Elevated troponins * Indeterminant troponins, exact etiology unclear: Troponins are 63, 71 and 75 flat and intermittent. Suspect demand (type II) ischemia from above. * EKG in ED no acute evidence of ischemia, CXR w/ concern for right lower lobe p neumonia and possible mild overload. Most likely due to acute myocardial injury/increased cardiac demand from pulmonary infection. Patient on aspirin. * Echo on 11/08: EF 65%. small pericardial effusion. Bacteremia: * Unclear if true infection. * Took several days to show positive results: 1 of 2 Cx on the showing polymicrobial: Corynebacterium, Rothia, Strep viridans. the other showing Actinotignum schaalii. * Repeat BCx ordered on 11/10 and neagative at 48h * ID following. Bacteruria * Suspect not true infection, but colonization. Only 5-10 WBCs on UA. * - 24: Preliminary culture shows E. coli and Pseudomonas aeruginosa. E. coli 80,000-100,000. Pseudomonas less than 1000. * ID following on levofloxacin Acute HFpEF * IV furosemide 40 IV BID. * Echo 11/08: EF 65% COVID-19 * Dexamethasone through the . Remdesivir through the . * ID following. * Onset around 11/04/23, quarantine through 11/14/2023. Chronic conditions: * Diabetes mellitus type II: Fair control. SSI * Chronic Kidney Disease Stage IIIa: Admission BUN/Cr 29/11.36, baseline renal function does not appear to be available in the system however she does have a chart reported history of stage IIIa chronic kidney disease and the GFR currently would be consistent with this, will continue to closely monitor especially given IV Lasix usage. 11/08/2023: Patient has Rapp catheter. Dark, concentrated yellow-colored urine. Continue Lasix. * Dementia with mood disturbance chart reported: Complicates presentation, normally on donepezil, holding, will attempt a place near nursing station with fall and aspiration precautions, PT/OT/case management consulted for discharge planning. Given encephalopathy holding all oral medicines as noted. * COPD: Complicates presentation, as noted currently maintained on supplementation, will attempt BiPAP nightly, will transition to ATC budesonide therapy, PRN albuterol, HOB, IS parameters. * Anxiety and depression: Temporarily holding patient home mirtazapine as well as sertraline home regimen given unsafe oral intake, resume once clinically appropriate. * Hypertension: Holding oral regimen as noted, maintain on IV Lasix, PRN hydralazine. * Hyperlipidemia: Temporally holding oral regimen as noted, add back oral statin once appropriate, FLP in AM. * TACO: attempt BiPAP nightly if patient will tolerate but she does have underlying history and per family refuses to wear any PAP therapy. * Morbid Obesity: Weight loss and lifestyle changes encouraged. DVT prophylaxis: Heparin. CODE status: DNRCCA non intubation. Disposition: TBD. Anticipate slow overall recovery. Charges/Coding Visit Charges Inpatient E&M: 84337 Subs Hosp L2
[2023-11-13] MEDS: Ipratropium/Albuterol Sulfate 3 ML AMPUL.NEB INHALATION ×2 (07:46→20:16)
[2023-11-13] MEDS: TITRATION PARAMETER CHANGE 1 EACH IV (08:04)
[2023-11-13] MEDS: 0.9% Normal Saline (250mL Bag) 250 ML 15 ML IV (08:31)
[2023-11-13 08:43] LABS: Bedside Glucose 137 mg/dL (74-106)
[2023-11-13] MEDS: Dexmedetomidine 1,000 mcg in 0.9% NS 240 mL 39.1000000000000014 MCG CONT INF (08:45)
[2023-11-13] MEDS: Pantoprazole Sodium 40 MG in 0.9% Normal Saline (100mL MB+) 100 ML 330 MG IV (09:20)
[2023-11-13] MEDS: amLODIPine 5 MG Tablet PO (09:22)
[2023-11-13] MEDS: Aspirin 81 MG TAB.CHEW PO (09:22)
[2023-11-13] MEDS: Heparin Injection (Vial) 5,000 UNIT/ML VIAL 5000 UNIT SC ×2 (09:24→22:04)
[2023-11-13] MEDS: Furosemide 40 MG/4 ML Vial IV (09:26)
[2023-11-13] MEDS: Menthol/Lanolin/Calamine/Znox 113 GM Tube 1 APPLIC TOPICAL ×3 (09:26→22:05)
[2023-11-13] MEDS: dexAMETHasone 4 MG/ML Vial 6 MG IV (10:16)
[2023-11-13] MEDS: levoFLOXacin IV 500 MG/100 ML BAG 100 MG IV (10:17)
--- NOTE | 2023-11-13 11:33 | PN.CC_ITS ---
Assessment & Plan Assessment/Plan (1) Acute respiratory failure with hypoxia and hypercarbia: (2) COVID-19: (3) TACO (obstructive sleep apnea): PLAN: Plan RECOMMENDATIONS: 1. Resp status much improved/ She is now on 6L NC 2. Continue decadron, completed remdesivir 11/11/23 3. Remains on Levaquin. Blood cultures growing strep viridans along with other possible contaminants. Strep viridans could be from GI source. repeat blood cultures negative so far 4. Will switch to PO lasix she is now net negative since admission 5. Discussed with the patient's son-in-law present at the bedside 11/10. Noted that the patient's daughters are feeling too emotional and he was sent on their behalf to receive updates. Refer to note 11/10 for details. Family has not been back since for further discussions 6. BP trended down, holding amlodipine 7. Weaning Precedex. Added Zyprexa as patient is on Levaquin given her age she is at high risk for arrhythmias. Will also add melatonin at night. 8. Pt can be transferred to floor once off precedex 9. Protonix switched to PO as she's tolerating diet but she' on steroids IMPRESSIONS: 1. Acute combined respiratory failure secondary to acute COVID-19 with concern of concomitant pneumonia in the setting of reported COPD Patient's ABG is consistent with acute on chronic combined hypercarbic respiratory failure. Patient reportedly is on room air at baseline, but now has significant oxygen requirements and a right lower lobe infiltrate. Unclear if patient has an element of aspiration given mental status on presentation. Will continue with empiric antibiotics for now. Patient is currently on Decadron and completed remdesivir secondary to COVID-19. Patient will be continued on BiPAP with sleep and Airvo during the day. Patient is on diuretics with some improvement. 2. 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 coli. This appears to be pansensitive at this time. Patient reportedly has not been a surgical candidate in the past. Patient is not having any hypotension at this time 3. Elevated troponins/probable diastolic CHF Evaluation by echocardiogram may be somewhat limited secondary to body habitus. Echocardiogram was relatively unremarkable, but limited given her COVID-19 status. Patient was significantly hypoxic on presentation and does have some lower extremity edema. Patient has responded to diuretic therapy. Will continue to monitor closely. Defer to hospitalist on cardiology evaluation 4. Diabetes mellitus type 2 Patient does have diabetes at baseline. Unfortunately, patient does have an indication for Decadron therapy will likely have significant elevation in her blood sugars. Will continue to use insulin for coverage. Patient may require basal insulin moving forward, but appears to be tolerating well at this time 5. Anxiety/depression/hypertension/noncompliant TACO/morbid obesity/reported dementia/advanced age Complicates care, management, recovery and prognosis. Will attempt to clarify CODE STATUS as there appears to be some confusion about the ventilator and intubation relationship. Patient does have a history of dementia and is alert and oriented to self only at this time. Patient has been verified is a DNR/DNI Subjective Subjective Patient appears to have sundowners her agitation is worse at night and she is pleasant during the day. She is off Airvo currently on 6 L via nasal cannula. Weaning Precedex. Added Zyprexa as patient is on Levaquin given her age she is at high risk for arrhythmias. Will also add melatonin at night. Objective Data Objective Data Vital Signs: Vital Signs Temp Pulse Resp BP Pulse Ox O2 Del Method O2 Flow Rate 36.7 C 66 16 123/47 H 95 Nasal Cannula 4 11/13/23 08:00 11/13/23 11:00 11/13/23 11:00 11/13/23 11:00 11/13/23 11:00 11/13/23 11:00 11/13/23 11:00 FiO2 35 11/13/23 07:00 Oxygen Flow Rate (L/min) 4 Oxygen Delivery Method Nasal Cannula Weight: 142.3 kg Body Mass Index (BMI) 50.6 Intake & Output: Intake and Output for Last 24 Hours 11/11/23 11/12/23 11/13/23 23:59 23:59 23:59 Intake Total 3567.18 / 3620.18 2774.47 / 2828.57 600.08 / 600.08 Output Total 1875 / 2875 4150 / 4150 500 / 500 Balance 1692.18 / 745.18 -1375.53 / -1321.43 100.08 / 100.08 Lab / Micro Data 11/13/23 04:25 11/13/23 04:25 Labs: Laboratory Results - last 24 hr 11/12/23 11:54: POC Glucose 235 H 11/12/23 17:56: POC Glucose 219 H 11/13/23 04:25: WBC 7.9, RBC 4.83, Hgb 10.4 L, Hct 37.3, MCV 77.2 L, MCH 21.5 L, MCHC 27.9 L, RDW Std Deviation 48.3 H, RDW Coeff of Esvin 17.7 H, Plt Count 120 L, MPV 11.0, Immature Gran % (Auto) 0.400, Neut % (Auto) 79.0 H, Lymph % (Auto) 11.8 L, [place] % (Auto) 7.5, Eos % (Auto) 1.3, Baso % (Auto) 0.0, Absolute Neuts (auto) 6.2, Absolute Lymphs (auto) 0.93, Nucleated RBC % 0, Sodium 138, Potassium 3.7, Chloride 102, Carbon Dioxide 30.0, Anion Gap 6, BUN 25 H, Creatinine 0.93, Estim Creat Clear Calc 42.91, Est GFR (MDRD) Af Amer 74, Est GFR (MDRD) Non-Af 61, BUN/Creatinine Ratio 26.9 H, Glucose 141 H, Calcium 8.7 11/13/23 07:47: POC Glucose 137 H Micro: Microbiology 11/06/23 14:20 Blood Culture (Wb) - Left Hand Blood Culture - Final Actinotignum schaalii Coag Negative Staph 11/06/23 14:30 Blood Culture (Wb) - Anticubital Left Blood Culture - Final Corynebacterium striatum Rothia kristinae Streptococcus viridans group 11/10/23 18:29 Blood Culture (Wb) - Arm Right Blood Culture - Preliminary No growth in 48 hours. 11/10/23 18:21 Blood Culture (Wb) - Right Hand Blood Culture - Preliminary No growth in 48 hours. 11/08/23 15:30 Urine Catheter - Rapp Legionella Antigen - Final 11/08/23 15:30 Urine Catheter - Rapp Streptococcus pneumoniae Antigen (M - Final 11/06/23 14:50 Urine Catheter - Catheter Urine Culture - Final Escherichia coli Pseudomonas aeruginosa 11/07/23 00:55 Mucosa - Nasopharyngeal Respiratory Panel (PCR) - Final 11/06/23 14:50 Urine Catheter - Rapp Legionella Antigen - Final 11/06/23 14:50 Urine Catheter - Rapp Streptococcus pneumoniae Antigen (M - Final 11/06/23 14:27 Mucosa - Nasopharyngeal SARS-CoV-2, Influenza & RSV (PCR) - Final SARS-CoV-2 (COVID 19) Physical Exam Const alert General Appearance: cooperative Resp Effort and Inspection: Negative for able to speak in complete sentences Auscultation: diminished lung sounds; Negative for rales, rhonchi or wheezes Cardio regular rhythm, S1 normal heart sound and S2 normal heart sound Rate: bradycardia GI normal to inspection, nondistended, normoactive bowel sounds Neuro moves all extremities Charges/Coding Visit Charges Inpatient E&M: 36564 Subs Hosp L3
[2023-11-13] MEDS: Insulin Lispro 100 UNIT/ML INSULN.PEN SC ×2 (12:02→16:42)
[2023-11-13] MEDS: OLANZapine 2.5 MG Tablet PO ×2 (14:25→22:04)
[2023-11-13 14:50] LABS: Bedside Glucose 195 mg/dL (74-106)
[2023-11-13 17:03] LABS: Bedside Glucose 172 mg/dL (74-106)
[2023-11-13] MEDS: Furosemide 40 MG Tablet PO (18:31)
[2023-11-13] MEDS: Acetaminophen 325 MG Tablet 650 MG PO (22:04)
[2023-11-13] MEDS: MELATONIN 10 MG TABLET PO (22:04)
[2023-11-14] VITALS (9 sets, daily range): BP systolic 116–134; BP diastolic 58–101; PULSE 69–110; RESP 16–23; TEMP 36.5–37.4; O2SAT 91–98; BMI 50.7
[2023-11-14 00:27] LABS: Bedside Glucose 127 mg/dL (74-106)
[2023-11-14] MEDS: hydrOXYzine 50 MG/ML Vial IM (02:27)
--- NOTE | 2023-11-14 03:43 | EKG12_ITS ---
Test Reason : Arhythmia Blood Pressure : / mmHG Vent. Rate : 101 BPM Atrial Rate : 101 BPM P-R Int : 142 ms QRS Dur : 074 ms QT Int : 368 ms P-R-T Axes : 031 -23 020 degrees QTc Int : 477 ms Sinus tachycardia with Premature atrial complexes with Aberrant conduction Minimal voltage criteria for LVH, may be normal variant ( R in aVL ) Nonspecific T wave abnormality Abnormal ECG When compared with ECG of 06-NOV-2023 14:23, Nonspecific T wave abnormality no longer evident in Lateral leads Confirmed by GILLIAN MIMS, MARISOL ([id number]), acquisition editor RAMO MCNEILL ([id number]) on 11/15/2023 10:17:23 AM Referred By: Johnson Confirmed By:MARISOL FRENCH MD
[2023-11-14] MEDS: Temazepam 15 MG Capsule PO (04:13)
[2023-11-14] MEDS: Miconazole Nitrate 43 GM Bottle 1 APPLIC TOPICAL ×2 (05:19→21:05)
[2023-11-14] MEDS: Ipratropium/Albuterol Sulfate 3 ML AMPUL.NEB INHALATION ×3 (06:54→20:32)
[2023-11-14 07:19] LABS: Bedside Glucose 94 mg/dL (74-106)
[2023-11-14 07:26] LABS: Anion Gap 10 (5-15); BUN 31 mg/dL (7-18); BUN/Creat Ratio 18.8 RATIO (10-20); Calcium,Total 9.3 mg/dL (8.5-10.1); Chloride 103 mmol/L (98-107); Creatinine, Serum 1.65 mg/dL (0.55-1.02); EST Glomerular Filtration Rate 32 mL/min (>60); Est Glom Filt Rate - Afr Amer 38 mL/min (>60); Estimated Creatinine Clearance 24.18 ml/min; Glucose 87 mg/dL (74-106); Potassium 2.9 mmol/L (3.5-5.1); Sodium Level 143 mmol/L (136-145)
[2023-11-14 07:50] LABS: Absolute Lymphocyte Count 1.66 X10^3/uL (0.83-4.51); Absolute Neutrophil Count 9.3 X10^3/uL (2.0-7.7); Basophil# 0.02 X10^3/uL; Basophil% 0.2 % (0-1); Eosinophil# 0.11 X10^3/uL; Eosinophils% 0.9 % (0-5); Hematocrit 34.8 % (37-47); Hemoglobin 9.9 g/dL (12.0-15.0); Lymphocyte # 1.66 X10^3/ul (0.83-4.51); Lymphocyte % 13.3 % (19-41); Mean Corp Hgb Conc 28.4 g/dL (32-36); Mean Corpuscular Hgb 21.7 pg (27.0-32.0); Mean Corpuscular Volume 76.1 fL (81-99); Mean Platelet Vol. 10.7 fl (6.2-12.0); Monocyte# 1.32 X10^3/uL; Monocyte% 10.6 % (0-10); NRBC Flagged by Analyzer 0 % (0-5); Neutrophil % 74.6 % (47-70); Platelet Count 184 K/mm3 (150-450); RBC Distribution Width CV 18.3 % (11.6-14.6); RBC Distribution Width SD 48.8 fl (35.1-43.9); Red Blood Count 4.57 M/mm3 (4.2-5.4); White Blood Count 12.5 K/mm3 (4.4-11.0)
[2023-11-14 08:41] LABS: Magnesium 2.3 mg/dL (1.6-2.6); Phosphorus 3.2 mg/dL (2.5-4.9)
[2023-11-14] MEDS: Furosemide 40 MG Tablet PO (09:46)
[2023-11-14] MEDS: Pantoprazole Sodium 40 MG Tablet PO (09:46)
[2023-11-14] MEDS: dexAMETHasone 4 MG/ML Vial 6 MG IV (09:46)
[2023-11-14] MEDS: Potassium Chloride Oral Tablet 20 MEQ 60 MEQ PO (09:47)
[2023-11-14] MEDS: Heparin Injection (Vial) 5,000 UNIT/ML VIAL 5000 UNIT SC ×2 (09:47→20:56)
[2023-11-14] MEDS: Aspirin 81 MG TAB.CHEW PO (09:47)
[2023-11-14] MEDS: OLANZapine 2.5 MG Tablet PO ×2 (09:52→21:04)
[2023-11-14] MEDS: levoFLOXacin 500 MG Tablet PO (09:52)
[2023-11-14] MEDS: Menthol/Lanolin/Calamine/Znox 113 GM Tube 1 APPLIC TOPICAL ×2 (10:17→21:05)
--- NOTE | 2023-11-14 10:49 | CASEMGMT ---
SW reviewed therapy's note and SNF is being recommended. SW called patient's daughter Brandy. Introduced self and role at [facility]. SW explained recommendations. Brandy said she would like patient to come home and get therapy at home. FAITH explained that can be set up, but it would only be a couple of times a week. SW explained it takes two people to assist patient. SW asked Brandy if she considered patient going to a [facility] facility short term for rehab. Brandy said she needs to think about it. Ada Ram MSW DIAMANTE
[2023-11-14 11:39] LABS: Bedside Glucose 109 mg/dL (74-106)
[2023-11-14] MEDS: Haloperidol Lactate 5 MG/ML Vial 1 MG IV ×2 (15:07→22:52)
[2023-11-14] MEDS: Insulin Lispro 100 UNIT/ML INSULN.PEN SC (16:09)
[2023-11-14 16:32] LABS: Bedside Glucose 204 mg/dL (74-106)
--- NOTE | 2023-11-14 17:57 | PN.HOSP_ITS ---
Reason for Visit Reason for Visit: Diagnoses Obstructive sleep apnea (adult) (pediatric) (11/06/23) Acute respiratory failure with hypoxia (11/06/23) Acute respiratory failure with hypercapnia (11/06/23) COVID-19 (11/06/23) Subjective Subjective Patient seen at bedside this morning. Laying in bed fairly comfortably, no acute distress. Patient seen mildly anxious during our encounter, was continually asking if she was going to be discharged home today. Stated that she lives with her daughter and has another family member living close by who is a barrel driller, and they can help her at home on discharge. Patient did not provide much of an answer at all when asked about her ability to get out of bed on her own and ambulate. She otherwise denied any fevers or chills or any other acute pain or discomfort. No other acute concerns this morning. Objective Data Objective Data Vital Signs: Vital Signs Temp Pulse Resp BP Pulse Ox O2 Del Method O2 Flow Rate 99.0 F 107 H 18 134/101 H 97 Nasal Cannula 4 11/14/23 16:00 11/14/23 16:00 11/14/23 16:00 11/14/23 16:00 11/14/23 16:00 11/14/23 17:17 11/14/23 17:17 FiO2 35 11/13/23 07:00 Oxygen Flow Rate (L/min) 4 Oxygen Delivery Method Nasal Cannula Weight: 142.6 kg Body Mass Index (BMI) 50.7 Intake & Output: Intake and Output for Last 24 Hours 11/12/23 11/13/23 11/14/23 23:59 23:59 23:59 Intake Total 2774.47 / 2828.57 911.81 / 911.81 200 / 200 Output Total 4150 / 4150 1550 / 1550 300 / 300 Balance -1375.53 / -1321.43 -638.19 / -638.19 -100 / -100 Lab / Micro Data 11/14/23 07:45 11/14/23 06:25 Labs: Laboratory Results - last 24 hr 11/13/23 21:56: POC Glucose 127 H 11/14/23 06:20: POC Glucose 94 11/14/23 06:25: WBC Cancelled, Corrected WBC Cancelled, RBC Cancelled, Hgb Cancelled, Hct Cancelled, MCV Cancelled, MCH Cancelled, MCHC Cancelled, RDW Std Deviation Cancelled, RDW Coeff of Esvin Cancelled, Plt Count Cancelled, MPV Cancelled, Immature Gran % (Auto) Cancelled, Neut % (Auto) Cancelled, Lymph % (Auto) Cancelled, [place] % (Auto) Cancelled, Eos % (Auto) Cancelled, Baso % (Auto) Cancelled, Absolute Neuts (auto) Cancelled, Absolute Lymphs (auto) Cancelled, Total Counted Cancelled, Neutrophils % (Manual) Cancelled, Band Neutrophils % Cancelled, Lymphocytes % (Manual) Cancelled, Monocytes % (Manual) Cancelled, Eosinophils % (Manual) Cancelled, Basophils % (Manual) Cancelled, Metamyelocytes % Cancelled, Myelocytes % Cancelled, Promyelocytes % Cancelled, Blast Cells % Cancelled, Plasma Cell % (Manual) Cancelled, Other Cells % Cancelled, Nucleated RBC % Cancelled, Nucleated RBCs/100 WBC Cancelled, Differential Comment Cancelled, Diff Path Review Cancelled, Hypersegmented Neuts Cancelled, Atypical Lymphocytes Cancelled, Reactive Lymphocytes Cancelled, Smudge Cells Cancelled, Toxic Granulation Cancelled, Toxic Vacuolation Cancelled, Dohle Bodies Cancelled, Juan Antonio Rods Cancelled, Platelet Estimate Cancelled, Plt Morphology Comment Cancelled, RBC Morphology Cancelled 11/14/23 06:25: RBC Morphology Cancelled, Polychromasia Cancelled, Hypochromasia Cancelled, Poikilocytosis Cancelled, Basophilic Stippling Cancelled, Anisocytosis Cancelled, Microcytosis Cancelled, Macrocytosis Cancelled, Spherocytes Cancelled, Sickle Cells Cancelled, Target Cells Cancelled, Tear Drop Cells Cancelled, Ovalocytes Cancelled, Stomatocytes Cancelled, [place] Bodies Cancelled, [place] Cells Cancelled, Bite Cells Cancelled, Crenated Cell Cancelled, Acanthocytes (Spur) Cancelled, Rouleaux Cancelled, Schistocytes Cancelled, Sodium 143, Potassium 2.9 L, Chloride 103, Carbon Dioxide 30.0, Anion Gap 10, BUN 31 H, Creatinine 1.65 H, Estim Creat Clear Calc 24.18, Est GFR (MDRD) Af Amer 38 L, Est GFR (MDRD) Non-Af 32 L, BUN/Creatinine Ratio 18.8, Glucose 87, Calcium 9.3, Phosphorus 3.2, Magnesium 2.3 11/14/23 07:45: WBC 12.5 H, RBC 4.57, Hgb 9.9 L, Hct 34.8 L, MCV 76.1 L, MCH 21.7 L, MCHC 28.4 L, RDW Std Deviation 48.8 H, RDW Coeff of Esvin 18.3 H, Plt Count 184, MPV 10.7, Immature Gran % (Auto) 0.400, Neut % (Auto) 74.6 H, Lymph % (Auto) 13.3 L, [place] % (Auto) 10.6 H, Eos % (Auto) 0.9, Baso % (Auto) 0.2, Absolute Neuts (auto) 9.3 H, Absolute Lymphs (auto) 1.66, Nucleated RBC % 0 11/14/23 11:12: POC Glucose 109 H 11/14/23 16:08: POC Glucose 204 H Micro: Microbiology 11/13/23 16:30 Sputum, Expectorated/Coughed Gram Stain - Final 11/13/23 16:30 Sputum, Expectorated/Coughed Respiratory Culture - Preliminary Presumptive C albicans 11/06/23 14:20 Blood Culture (Wb) - Left Hand Blood Culture - Final Actinotignum schaalii Coag Negative Staph 11/06/23 14:30 Blood Culture (Wb) - Anticubital Left Blood Culture - Final Corynebacterium striatum Rothia kristinae Streptococcus viridans group 11/10/23 18:29 Blood Culture (Wb) - Arm Right Blood Culture - Preliminary No growth in 48 hours. 11/10/23 18:21 Blood Culture (Wb) - Right Hand Blood Culture - Preliminary No growth in 48 hours. 11/08/23 15:30 Urine Catheter - Rapp Legionella Antigen - Final 11/08/23 15:30 Urine Catheter - Rapp Streptococcus pneumoniae Antigen (M - Final 11/06/23 14:50 Urine Catheter - Catheter Urine Culture - Final Escherichia coli Pseudomonas aeruginosa 11/07/23 00:55 Mucosa - Nasopharyngeal Respiratory Panel (PCR) - Final 11/06/23 14:50 Urine Catheter - Rapp Legionella Antigen - Final 11/06/23 14:50 Urine Catheter - Rapp Streptococcus pneumoniae Antigen (M - Final 11/06/23 14:27 Mucosa - Nasopharyngeal SARS-CoV-2, Influenza & RSV (PCR) - Final SARS-CoV-2 (COVID 19) Physical Exam Const alert and no apparent distress Constitutional Narrative: Elderly female, morbidly obese, chronically ill-appearing, laying comfortably in bed, mildly anxious appearing, speaking normally but very talkative and repeated herself multiple times during the encounter. General Appearance: cooperative and comfortable HEENT normocephalic, head/scalp atraumatic, hearing grossly normal bilaterally and nasal mucous membranes and turbinates normal Eyes PERRL, EOMs intact bilaterally and conjunctivae normal Neck full ROM, no lymphadenopathy and supple Lymph Lymphatic: no lymphadenopathy noted Chest inspection of chest normal Resp normal respiratory effort and no use of accessory muscles Resp Narrative: Mildly decreased breath sounds bilaterally, suspect due to body habitus. No wheezing or crackles noted. Cardio no murmurs and peripheral pulses 2+ throughout Cardio Narrative: Tachycardic, regular rhythm. GI normal to inspection, nondistended, normoactive bowel sounds, soft to palpation, non-tender and non-distended Back/Spine normal ROM Extremity normal to inspection and no pedal edema Skin no rashes or lesions noted Neuro no focal motor deficits and no sensory deficits noted Speech: speech normal Psych Mood & Affect: anxious Assessment & Plan Assessment/Plan (1) Acute respiratory failure with hypoxia and hypercarbia: (2) Altered mental status: (3) COVID-19: PLAN: Plan Patient is an 83-year-old female who presented to [facility] ED on 11/06/2023 with worsening shortness of breath and altered mental status. 1. Acute metabolic encephalopathy in setting of dementia with mood disturbance ? Patient with ongoing waxing and waning mental status throughout admission. Was likely multifactorial initially secondary to hypercapnia, respiratory failure, underlying illness in setting of dementia. However, have concern that primary cause is now patient's dementia with mood disturbance. Patient required ICU management with Precedex drip for several days during admission, weaned off Precedex on 11/13 and transferred to the floor. Patient was continued intermittent agitation on 11/14 per nursing staff. Continue Zyprexa 2.5 mg twice daily started on 11/13. Will restart home mirtazapine at night on 11/14, sertraline on 11/15. Restarted home donepezil at night on 11/14. IV Haldol 1 mg every 6 hours as needed for now. Monitor closely. 2. Acute hypoxic/hypercapnic respiratory failure, improving ? Multifactorial secondary to acute COVID-19 infection with concurrent superimposed bacterial right lower lobe pneumonia, as well as CHF exacerbation. Required AVAPS earlier in admission, now stable on 4 to 6 L nasal cannula for last few days. Completed course of remdesivir for COVID as noted below. Completing 10-day course of IV Decadron on 11/16. Completed course of p.o. Levaquin. Wean supplemental oxygen as able. Treating heart failure as noted below. Will likely require supplemental oxygen on discharge to SNF. 3. HFpEF ? Echo 11/08 showed EF 65%, normal diastole for age, small pericardial effusion, however was likely limited secondary to body habitus. Notably with hypoxia and lower extremity edema on admission, responded well to IV diuresis. Developed SOLE on 11/14 as noted below, likely secondary to overdiuresis. Discontinued IV Lasix, will plan to restart home p.o. Lasix 20 mg twice daily once SOLE has improved. 4. SOLE on CKD stage IIIa ? Creatinine 1.3 on admit, improved to baseline of 0.9 to 1.0 on 11/11 with IV diuresis. Creatinine again worsened to 1.65 on 11/14, suspected due to overdiure sis. Holding IV Lasix as noted above, will restart home p.o. Lasix once creatinine has improved. Monitor daily BMP and urine output. 5. COVID-19 infection ? COVID-19 positive on 11/06. Will complete 10-day course of IV Decadron on 11/16. Completed 5-day course of remdesivir. Isolation precautions in place. 6. Elevated troponins, resolved ? Suspected due to demand ischemia. Echo as noted above. EKG in ED with no evidence of acute ischemia. Continue home aspirin. Chronic medical conditions: ? Type 2 diabetes mellitus: Sliding scale insulin while inpatient. ? COPD not on home O2: Treating acute respiratory failure as noted above. Complicates presentation. ? Anxiety/depression: Home sertraline and mirtazapine initially due to concern for safe p.o. intake, will restart on 11/15. ? Hypertension: Holding home losartan, isosorbide mononitrate, p.o. Lasix, restart when able. ? Hyperlipidemia: Continue home statin. ? TACO: Attempt BiPAP nightly as patient tolerates. ? Morbid obesity: BMI 50 on admit. Encouraged lifestyle modifications. Complicates hospital course, care and prognosis. DVT prophylaxis: Heparin subcu CODE STATUS: DNR CCA, DNI Expected disposition: SNF, TBD Total clinical time spent by myself addressing the patient's medical issues, reviewing all the data, and collaborating with patient's care team: 35 minutes. Charges/Coding Visit Charges Inpatient E&M: 08162 Subs Hosp L2
[2023-11-14] MEDS: Atorvastatin Calcium 40 MG Tablet PO (20:56)
[2023-11-14] MEDS: Donepezil HCl 10 MG Tablet PO (20:56)
[2023-11-14] MEDS: Mirtazapine 15 MG Tablet 7.5 MG PO (20:57)
[2023-11-14] MEDS: MELATONIN 10 MG TABLET PO (21:04)
[2023-11-14 22:48] LABS: Bedside Glucose 156 mg/dL (74-106)
[2023-11-14] MEDS: 0.9% Saline Lock 10 ML Syringe IV (22:52)
[2023-11-15] VITALS (11 sets, daily range): BP systolic 113–178; BP diastolic 58–94; PULSE 97–111; RESP 14–24; TEMP 36.7–37.4; O2SAT 94–97; BMI 50.6
[2023-11-15] MEDS: Acetaminophen 325 MG Tablet 650 MG PO (00:19)
--- NOTE | 2023-11-15 05:15 | EKG12_ITS ---
Test Reason : TACHY Blood Pressure : / mmHG Vent. Rate : 104 BPM Atrial Rate : 000 BPM P-R Int : 000 ms QRS Dur : 074 ms QT Int : 314 ms P-R-T Axes : 000 -13 131 degrees QTc Int : 412 ms Atrial fibrillation with rapid ventricular response Nonspecific ST and T wave abnormality Abnormal ECG When compared with ECG of 14-NOV-2023 04:04, MANUAL COMPARISON REQUIRED, DATA IS UNCONFIRMED Confirmed by GILLIAN MIMS, MARISOL ([id number]), business editor RAMO MCNEILL ([id number]) on 11/16/2023 5:58:15 AM Referred By: DR YEBOAH Confirmed By:MARISOL FRENCH MD
[2023-11-15 06:50] LABS: Absolute Lymphocyte Count 0.86 X10^3/uL (0.83-4.51); Absolute Neutrophil Count 7.5 X10^3/uL (2.0-7.7); Basophil# 0.01 X10^3/uL; Basophil% 0.1 % (0-1); Eosinophil# 0.11 X10^3/uL; Eosinophils% 1.2 % (0-5); Hematocrit 32.8 % (37-47); Hemoglobin 9.3 g/dL (12.0-15.0); Lymphocyte # 0.86 X10^3/ul (0.83-4.51); Mean Corp Hgb Conc 28.4 g/dL (32-36); Mean Corpuscular Hgb 21.8 pg (27.0-32.0); Mean Corpuscular Volume 76.8 fL (81-99); Monocyte% 10.5 % (0-10); NRBC Flagged by Analyzer 0 % (0-5); Neutrophil % 78.8 % (47-70); Platelet Count 161 K/mm3 (150-450); RBC Distribution Width CV 18.8 % (11.6-14.6); RBC Distribution Width SD 50.5 fl (35.1-43.9); Red Blood Count 4.27 M/mm3 (4.2-5.4); White Blood Count 9.5 K/mm3 (4.4-11.0)
[2023-11-15] MEDS: Miconazole Nitrate 43 GM Bottle 1 APPLIC TOPICAL ×2 (07:00→20:21)
[2023-11-15 07:02] LABS: Anion Gap 5 (5-15); BUN 29 mg/dL (7-18); BUN/Creat Ratio 22.7 RATIO (10-20); Calcium,Total 9.4 mg/dL (8.5-10.1); Chloride 106 mmol/L (98-107); Creatinine, Serum 1.28 mg/dL (0.55-1.02); EST Glomerular Filtration Rate 42 mL/min (>60); Est Glom Filt Rate - Afr Amer 51 mL/min (>60); Estimated Creatinine Clearance 31.17 ml/min; Glucose 116 mg/dL (74-106); Potassium 3.3 mmol/L (3.5-5.1); Sodium Level 145 mmol/L (136-145)
[2023-11-15 07:20] LABS: Bedside Glucose 123 mg/dL (74-106)
[2023-11-15 07:20] LABS: Bedside Glucose 113 mg/dL (74-106)
[2023-11-15] MEDS: Ipratropium/Albuterol Sulfate 3 ML AMPUL.NEB INHALATION ×3 (07:33→19:51)
[2023-11-15 08:14] LABS: Magnesium 2.4 mg/dL (1.6-2.6)
[2023-11-15] MEDS: Polyethylene Glycol 3350 17 GM PACKET 34 GM PO (11:20)
[2023-11-15] MEDS: Senna/Docusate Sodium 1 Tablet 2 TABLET PO (11:20)
[2023-11-15] MEDS: Pantoprazole Sodium 40 MG Tablet PO (11:20)
[2023-11-15] MEDS: dexAMETHasone 4 MG/ML Vial 6 MG IV (11:21)
[2023-11-15] MEDS: Heparin Injection (Vial) 5,000 UNIT/ML VIAL 5000 UNIT SC ×2 (11:22→20:22)
[2023-11-15] MEDS: Aspirin 81 MG TAB.CHEW PO (11:22)
[2023-11-15] MEDS: Menthol/Lanolin/Calamine/Znox 113 GM Tube 1 APPLIC TOPICAL ×4 (11:22→20:21)
[2023-11-15] MEDS: Potassium Chloride Oral Tablet 20 MEQ 40 MEQ PO (11:23)
[2023-11-15] MEDS: Sertraline 50 MG Tablet PO (11:23)
[2023-11-15] MEDS: hydrALAZINE 20 MG/ML Vial 10 MG IV (11:41)
[2023-11-15] MEDS: OLANZapine 2.5 MG Tablet PO ×2 (13:03→20:23)
--- NOTE | 2023-11-15 15:10 | CASEMGMT ---
Physician spoke with patient's daughter Mariela about d/c plan. Mariela was agreeable to patient going to TCU. SW made a referral to TCU. SW called patient's daughter Mariela and left her a voice mail letting her know SW made the referral, but will likely not have an answer until tomorrow. Plan: SNF. Possibly TCU pending their acceptance. Ada Ram APRON WORKER DIAMANTE
[2023-11-15 16:00] LABS: Bedside Glucose 111 mg/dL (74-106)
--- NOTE | 2023-11-15 16:13 | PN.HOSP_ITS ---
Reason for Visit Reason for Visit: Diagnoses Obstructive sleep apnea (adult) (pediatric) (11/06/23) Acute respiratory failure with hypoxia (11/06/23) Acute respiratory failure with hypercapnia (11/06/23) Altered mental status, unspecified (11/06/23) COVID-19 (11/06/23) Subjective Subjective Patient seen at bedside this morning. Sitting up in bed, appears fairly comfortable, no acute distress. Patient appeared slightly more sedated this morning but was answering my questions appropriately. She denied any acute pain or discomfort. No other acute concerns morning. Had good discussion with patient's daughter Mariela over the phone this afternoon. Patient lives at home with Mariela. Mariela saw the patient in the room both yesterday and today. She states that patient does appear weaker than her baseline, but she is also concerned that the patient continues to have more confusion than her normal. She says that patient had some memory issues and somewhat circular trains of thought at home from time to time, but she still appears more confused here than previously. She would like for patient to go to the TCU for skilled rehab on discharge if possible. Objective Data Objective Data Vital Signs: Vital Signs Temp Pulse Resp BP Pulse Ox O2 Del Method O2 Flow Rate 99.2 F H 103 H 20 H 136/58 H 94 Nasal Cannula 3 11/15/23 12:56 11/15/23 12:56 11/15/23 12:56 11/15/23 12:56 11/15/23 12:56 11/15/23 12:56 11/15/23 12:56 FiO2 30 11/15/23 02:40 Oxygen Flow Rate (L/min) 3 Oxygen Delivery Method Nasal Cannula Weight: 142.3 kg Body Mass Index (BMI) 50.6 Intake & Output: Intake and Output for Last 24 Hours 11/13/23 11/14/23 11/15/23 23:59 23:59 23:59 Intake Total 911.81 / 911.81 200 / 400 300 / 300 Output Total 1550 / 1550 300 / 300 200 / 200 Balance -638.19 / -638.19 -100 / 100 100 / 100 Lab / Micro Data 11/15/23 06:15 11/15/23 06:15 Labs: Laboratory Results - last 24 hr 11/14/23 16:08: POC Glucose 204 H 11/14/23 21:12: POC Glucose 156 H 11/15/23 05:17: POC Glucose 113 H 11/15/23 06:15: WBC 9.5, RBC 4.27, Hgb 9.3 L, Hct 32.8 L, MCV 76.8 L, MCH 21.8 L , MCHC 28.4 L, RDW Std Deviation 50.5 H, RDW Coeff of Esvin 18.8 H, Plt Count 161, MPV 12.0, Immature Gran % (Auto) 0.400, Neut % (Auto) 78.8 H, Lymph % (Auto) 9.0 L, [place] % (Auto) 10.5 H, Eos % (Auto) 1.2, Baso % (Auto) 0.1, Absolute Neuts (auto) 7.5, Absolute Lymphs (auto) 0.86, Nucleated RBC % 0, Sodium 145, Potassium 3.3 L, Chloride 106, Carbon Dioxide 34.0 H, Anion Gap 5, BUN 29 H, Creatinine 1.28 H, Estim Creat Clear Calc 31.17, Est GFR (MDRD) Af Amer 51 L, Est GFR (MDRD) Non-Af 42 L, BUN/Creatinine Ratio 22.7 H, Glucose 116 H, Calcium 9.4, Magnesium 2.4 11/15/23 06:56: POC Glucose 123 H 11/15/23 11:36: POC Glucose 111 H Micro: Microbiology 11/13/23 16:30 Sputum, Expectorated/Coughed Gram Stain - Final 11/13/23 16:30 Sputum, Expectorated/Coughed Respiratory Culture - Final Presumptive C albicans 11/06/23 14:20 Blood Culture (Wb) - Left Hand Blood Culture - Final Actinotignum schaalii Coag Negative Staph 11/06/23 14:30 Blood Culture (Wb) - Anticubital Left Blood Culture - Final Corynebacterium striatum Rothia kristinae Streptococcus viridans group 11/10/23 18:29 Blood Culture (Wb) - Arm Right Blood Culture - Preliminary No growth in 48 hours. 11/10/23 18:21 Blood Culture (Wb) - Right Hand Blood Culture - Preliminary No growth in 48 hours. 11/08/23 15:30 Urine Catheter - Rapp Legionella Antigen - Final 11/08/23 15:30 Urine Catheter - Rapp Streptococcus pneumoniae Antigen (M - Final 11/06/23 14:50 Urine Catheter - Catheter Urine Culture - Final Escherichia coli Pseudomonas aeruginosa 11/07/23 00:55 Mucosa - Nasopharyngeal Respiratory Panel (PCR) - Final 11/06/23 14:50 Urine Catheter - Rapp Legionella Antigen - Final 11/06/23 14:50 Urine Catheter - Rapp Streptococcus pneumoniae Antigen (M - Final 11/06/23 14:27 Mucosa - Nasopharyngeal SARS-CoV-2, Influenza & RSV (PCR) - Final SARS-CoV-2 (COVID 19) Physical Exam Const alert and no apparent distress Constitutional Narrative: Elderly female, morbidly obese, chronically ill-appearing, sitting up in bed, mildly sedated but answering questions appropriately, no acute distress. General Appearance: cooperative and comfortable HEENT normocephalic, head/scalp atraumatic, hearing grossly normal bilaterally and nasal mucous membranes and turbinates normal Eyes PERRL, EOMs intact bilaterally and conjunctivae normal Neck full ROM, no lymphadenopathy and supple Lymph Lymphatic: no lymphadenopathy noted Chest inspection of chest normal Resp normal respiratory effort and no use of accessory muscles Resp Narrative: Mildly decreased breath sounds bilaterally, suspect due to body habitus. No wheezing or crackles noted. Cardio no murmurs and peripheral pulses 2+ throughout Cardio Narrative: Tachycardic, regular rhythm. GI normal to inspection, nondistended, normoactive bowel sounds, soft to palpation, non-tender and non-distended Back/Spine normal ROM Extremity normal to inspection and no pedal edema Skin no rashes or lesions noted Neuro no focal motor deficits and no sensory deficits noted Speech: speech normal Psych Mood & Affect: anxious Assessment & Plan Assessment/Plan (1) Acute respiratory failure with hypoxia and hypercarbia: (2) Altered mental status: (3) COVID-19: PLAN: Plan Patient is an 83-year-old female who presented to [facility] ED on 11/06/2023 with worsening shortness of breath and altered mental status. 1. Acute metabolic encephalopathy in setting of dementia with mood disturbance ? Patient with ongoing waxing and waning mental status throughout admission. Was likely multifactorial initially secondary to hypercapnia, respiratory failure, underlying illness in setting of dementia. However, given ongoing symptoms, highest concern now is that high-dose IV steroids could be causing her symptoms. Suspect patient being on home medications for several days also could have been contributing to her symptoms. Her known history of dementia with mild mood disturbance is also likely playing a role. Patient required ICU management with Precedex drip for several days during admission, weaned off Precedex on 11/13 and transferred to the floor. Restarted home mirtazapine, sertraline and donepezil on 11/14. Continue Zyprexa 2.5 mg twice daily started on 11/13. Discontinued IV steroids due to below. Continue to monitor closely. 2. Acute hypoxic/hypercapnic respiratory failure, improving ? Multifactorial secondary to acute COVID-19 infection with concurrent superimposed bacterial right lower lobe pneumonia, as well as CHF exacerbation. Required AVAPS earlier in admission, now stable on 4 to 6 L nasal cannula for last few days. Completed course of remdesivir for COVID as noted below. Completed 9 days of IV Decadron, discontinued on 11/15 due to concern for mental status changes due to high-dose steroids as noted above. Completed course of p.o. Levaquin. Wean supplemental oxygen as able. Treating heart failure as noted below. Will likely require supplemental oxygen on discharge to SNF. 3. HFpEF ? Echo 11/08 showed EF 65%, normal diastole for age, small pericardial effusion, however was likely limited secondary to body habitus. Notably with hypoxia and lower extremity edema on admission, responded well to IV diuresis. Developed SOLE on 11/14 as noted below, likely secondary to overdiuresis, now improving with Lasix held. Will plan to restart home p.o. Lasix 20 mg twice daily once SOLE has improved. 4. SOLE on CKD stage IIIa, improving ? Creatinine 1.3 on admit, improved to baseline of 0.9 to 1.0 on 11/11 with IV diuresis. Creatinine again worsened to 1.65 on 11/14, suspected due to overdiuresis, improved to 1.28 on 11/15. Holding IV Lasix as noted above, will restart home p.o. Lasix once creatinine has improved. Monitor daily BMP and urine output. 5. COVID-19 infection ? COVID-19 positive on 11/06. Completed 9 days of IV Decadron, discontinued on 11/15 as noted above. Completed 5-day course of remdesivir. Isolation precautions in place. 6. Elevated troponins, resolved ? Suspected due to demand ischemia. Echo as noted above. EKG in ED with no evidence of acute ischemia. Continue home aspirin. Chronic medical conditions: ? Type 2 diabetes mellitus: Sliding scale insulin while inpatient. ? COPD not on home O2: Treating acute respiratory failure as noted above. Complicates presentation. ? Anxiety/depression: Home sertraline and mirtazapine initially due to concern for safe p.o. intake, restarted on 11/15. ? Hypertension: Holding home losartan, isosorbide mononitrate, p.o. Lasix, restart when able. ? Hyperlipidemia: Continue home statin. ? TACO: Attempt BiPAP nightly as patient tolerates. ? Morbid obesity: BMI 50 on admit. Encouraged lifestyle modifications. Complicates hospital course, care and prognosis. DVT prophylaxis: Heparin subcu CODE STATUS: DNR CCA, DNI Expected disposition: SNF, 2 to 3 days Total clinical time spent by myself addressing the patient's medical issues, reviewing all the data, and collaborating with patient's care team: 35 minutes. Charges/Coding Visit Charges Inpatient E&M: 16814 Subs Hosp L2
[2023-11-15] MEDS: Insulin Lispro 100 UNIT/ML INSULN.PEN SC (18:12)
[2023-11-15] MEDS: Donepezil HCl 10 MG Tablet PO (20:21)
[2023-11-15] MEDS: Haloperidol Lactate 5 MG/ML Vial 1 MG IV (20:22)
[2023-11-15] MEDS: Atorvastatin Calcium 40 MG Tablet PO (20:23)
[2023-11-15] MEDS: MELATONIN 10 MG TABLET PO (20:23)
[2023-11-15] MEDS: Mirtazapine 15 MG Tablet 7.5 MG PO (20:23)
[2023-11-16] VITALS (10 sets, daily range): BP systolic 104–160; BP diastolic 57–87; PULSE 90–110; RESP 18–24; TEMP 36.6–36.7; O2SAT 94–97; BMI 47.6
[2023-11-16 00:39] LABS: Bedside Glucose 211 mg/dL (74-106)
[2023-11-16] MEDS: Miconazole Nitrate 43 GM Bottle 1 APPLIC TOPICAL ×3 (07:07→20:48)
[2023-11-16] MEDS: Ipratropium/Albuterol Sulfate 3 ML AMPUL.NEB INHALATION ×3 (07:15→20:26)
[2023-11-16 07:28] LABS: Bedside Glucose 135 mg/dL (74-106)
[2023-11-16] MEDS: Heparin Injection (Vial) 5,000 UNIT/ML VIAL 5000 UNIT SC ×2 (09:49→20:47)
[2023-11-16] MEDS: Sertraline 50 MG Tablet PO (09:49)
[2023-11-16] MEDS: Aspirin 81 MG TAB.CHEW PO (09:49)
[2023-11-16] MEDS: Potassium Chloride Oral Tablet 20 MEQ 40 MEQ PO (09:49)
[2023-11-16] MEDS: Polyethylene Glycol 3350 17 GM PACKET 34 GM PO (09:50)
[2023-11-16] MEDS: Pantoprazole Sodium 40 MG Tablet PO (09:50)
[2023-11-16] MEDS: Furosemide 20 MG Tablet PO ×2 (09:50→16:59)
[2023-11-16] MEDS: Senna/Docusate Sodium 1 Tablet 2 TABLET PO (09:50)
[2023-11-16] MEDS: Menthol/Lanolin/Calamine/Znox 113 GM Tube 1 APPLIC TOPICAL ×4 (09:50→20:49)
[2023-11-16] MEDS: OLANZapine 2.5 MG Tablet PO ×2 (09:51→20:48)
--- NOTE | 2023-11-16 10:24 | CASEMGMT ---
TCU is not able to take patient at discharge. FAITH called patient's daughter Mariela and let her know TCU cannot take patient. Mariela said she was hoping patient could stay at [facility] as last time patient had to go to a retirement she freaked out and wouldn't stay so we brought her home. FAITH provided support. Mariela said she will talk to her sister and get back to . FAITH gave Mariela SW's phone number. Ada BOBBY
[2023-11-16 10:28] LABS: Anion Gap 4 (5-15); BUN 26 mg/dL (7-18); BUN/Creat Ratio 23.9 RATIO (10-20); Calcium,Total 10.3 mg/dL (8.5-10.1); Chloride 109 mmol/L (98-107); Creatinine, Serum 1.09 mg/dL (0.55-1.02); EST Glomerular Filtration Rate 51 mL/min (>60); Est Glom Filt Rate - Afr Amer 62 mL/min (>60); Estimated Creatinine Clearance 55.03 ml/min; Glucose 148 mg/dL (74-106); Potassium 3.8 mmol/L (3.5-5.1); Sodium Level 146 mmol/L (136-145)
--- NOTE | 2023-11-16 11:24 | CASEMGMT ---
FAITH returned patient's daughter Aggie's phone call. Aggie was upset that patient cannot go to [facility] TCU. Aggie explained patient's breakdown several years ago. Aggie asked SW to ask TCU to re-consider. FAITH told her SW will try and get back to her. SW asked Megan to re-consider and unfortunately they cannot accept patient. SW will call Aggie back. Ada Ram FAST FOOD MANAGER DIAMANTE
[2023-11-16 11:55] LABS: Bedside Glucose 132 mg/dL (74-106)
--- NOTE | 2023-11-16 12:22 | CASEMGMT ---
SW called patient's daughter Aggie back. SW let Aggie know TCU is unable to take patient. SW discussed how patient is doing with therapy and why it is being recommended she go for rehab short term. Aggie verbalized understanding. Aggie mentioned [facility] since she lives in [place] and [place] was also brought up. Aggie wanted to talk with her sister and will get back to SW today. Plan: SNF pending patient's family's SNF choices, accepting facility, and pre-cert. Ada Ram BREASTFEEDING PEER COUNSELOR DIAMANTE
--- NOTE | 2023-11-16 13:30 | CASEMGMT ---
FAITH received a voice mail from patient's daughter Aggie. Aggie said their choices are [place], [facility], and [facility] ([facility]). Aggie asked FAITH to send a referral to [facility] as she already spoke with Jasmina at [facility]. Aggie said she is waiting to talk with Christopher Wilkerson and [facility]. FAITH asked Huong to please send a referral to [facility]. Ada Ram CHANGE MANAGEMENT MANAGER DIAMANTE
--- NOTE | 2023-11-16 13:58 | CASEMGMT ---
Addendum entered by Huong Villalta 11/16/23 16:06: [facility] declined patient d/t + covid status. SW updated. Huong Villalta, Discharge Planning Asst. Original Note: Discharge Planning Referral sent to [facility] via [facility]. Huong Villalta, Discharge Planning Asst.
--- NOTE | 2023-11-16 15:08 | CHAPLAIN ---
Type of Pastoral Visit ___ Initial Visit _x__ Follow-up Visit ___ On-call Visit ___ General Patient Visit ___ Spiritual Assessment ___ Family Conference ___ Bereavement ___ Rapid Response ___ Code Blue ___ Other (describe below) Pastoral Care Referral From _x__ Patient ___ Family ___ Nurse ___ Physician ___ Molecular Biology Professor ___ House Steward/Stewardess ___ Other (describe below) Sacrament/Intervention ___ Active listening ___ Anointing ___ Episcopalian ___ Bereavement ___ Communion ___ Marley exploration ___ ___ Life review ___ Prayer ___ Reconciliation ___ Sacrament of Sick ___ Supportive presence ___ Wedding _x__ Other (describe below) Pastoral Comments patient is sleeping and she does not awaken to her name; left a calling card;
--- NOTE | 2023-11-16 15:43 | PN.HOSP_ITS ---
Reason for Visit Reason for Visit: Diagnoses Obstructive sleep apnea (adult) (pediatric) (11/06/23) Acute respiratory failure with hypoxia (11/06/23) Acute respiratory failure with hypercapnia (11/06/23) Altered mental status, unspecified (11/06/23) COVID-19 (11/06/23) Subjective Subjective Patient seen at bedside this morning. Patient was moderately more somnolent this morning than yesterday. She was only answering questions with 1-2 word a nswers. Denied any acute pain or discomfort. No other acute concerns. Objective Data Objective Data Vital Signs: Vital Signs Temp Pulse Resp BP Pulse Ox O2 Del Method O2 Flow Rate 98.1 F 108 H 22 H 154/86 H 95 Nasal Cannula 3 11/16/23 09:57 11/16/23 13:46 11/16/23 13:46 11/16/23 09:57 11/16/23 14:15 11/16/23 14:00 11/16/23 14:15 FiO2 30 11/15/23 02:40 Oxygen Flow Rate (L/min) 3 Oxygen Delivery Method Nasal Cannula Weight: 133.9 kg Body Mass Index (BMI) 47.6 Intake & Output: Intake and Output for Last 24 Hours 11/14/23 11/15/23 11/16/23 23:59 23:59 23:59 Intake Total 200 / 400 740 / 740 120 / 120 Output Total 300 / 300 600 / 800 1200 / 1200 Balance -100 / 100 140 / -60 -1080 / -1080 Lab / Micro Data 11/15/23 06:15 11/16/23 09:32 Labs: Laboratory Results - last 24 hr 11/15/23 11:36: POC Glucose 111 H 11/15/23 18:04: POC Glucose 211 H 11/16/23 07:05: POC Glucose 135 H 11/16/23 09:32: Sodium 146 H, Potassium 3.8, Chloride 109 H, Carbon Dioxide 33.0 H, Anion Gap 4 L, BUN 26 H, Creatinine 1.09 H, Estim Creat Clear Calc 55.03, Est GFR (MDRD) Af Amer 62, Est GFR (MDRD) Non-Af 51 L, BUN/Creatinine Ratio 23.9 H, Glucose 148 H, Calcium 10.3 H 11/16/23 11:39: POC Glucose 132 H Micro: Microbiology 11/10/23 18:29 Blood Culture (Wb) - Arm Right Blood Culture - Final No growth in 5 days. 11/10/23 18:21 Blood Culture (Wb) - Right Hand Blood Culture - Final No growth in 5 days. 11/13/23 16:30 Sputum, Expectorated/Coughed Gram Stain - Final 11/13/23 16:30 Sputum, Expectorated/Coughed Respiratory Culture - Final Presumptive C albicans 11/06/23 14:20 Blood Culture (Wb) - Left Hand Blood Culture - Final Actinotignum schaalii Coag Negative Staph 11/06/23 14:30 Blood Culture (Wb) - Anticubital Left Blood Culture - Final Corynebacterium striatum Rothia kristinae Streptococcus viridans group 11/08/23 15:30 Urine Catheter - Rapp Legionella Antigen - Final 11/08/23 15:30 Urine Catheter - Rapp Streptococcus pneumoniae Antigen (M - Final 11/06/23 14:50 Urine Catheter - Catheter Urine Culture - Final Escherichia coli Pseudomonas aeruginosa 11/07/23 00:55 Mucosa - Nasopharyngeal Respiratory Panel (PCR) - Final 11/06/23 14:50 Urine Catheter - Rapp Legionella Antigen - Final 11/06/23 14:50 Urine Catheter - Rapp Streptococcus pneumoniae Antigen (M - Final 11/06/23 14:27 Mucosa - Nasopharyngeal SARS-CoV-2, Influenza & RSV (PCR) - Final SARS-CoV-2 (COVID 19) Physical Exam Const alert and no apparent distress Constitutional Narrative: Elderly female, morbidly obese, chronically ill-appearing, sitting up in bed, more sedated this morning, only answering questions with short responses, no acute distress. General Appearance: cooperative and comfortable HEENT normocephalic, head/scalp atraumatic, hearing grossly normal bilaterally and nasal mucous membranes and turbinates normal Eyes PERRL, EOMs intact bilaterally and conjunctivae normal Neck full ROM, no lymphadenopathy and supple Lymph Lymphatic: no lymphadenopathy noted Chest inspection of chest normal Resp normal respiratory effort and no use of accessory muscles Resp Narrative: Mildly decreased breath sounds bilaterally, suspect due to body habitus. No wheezing or crackles noted. Cardio regular rate, regular rhythm, no murmurs and peripheral pulses 2+ throughout GI normal to inspection, nondistended, normoactive bowel sounds, soft to palpation, non-tender and non-distended Back/Spine normal ROM Extremity normal to inspection and no pedal edema Skin no rashes or lesions noted Neuro no focal motor deficits and no sensory deficits noted Speech: speech normal Assessment & Plan Assessment/Plan (1) Acute respiratory failure with hypoxia and hypercarbia: (2) Altered mental status: (3) COVID-19: PLAN: Plan Patient is an 83-year-old female who presented to [facility] ED on 11/06/2023 with worsening shortness of breath and altered mental status. 1. Acute metabolic encephalopathy in setting of dementia with mood disturbance Patient with ongoing waxing and waning mental status throughout admission. Was likely multifactorial initially secondary to hypercapnia, respiratory failure, underlying illness in setting of dementia. However, given ongoing symptoms, highest concern now is that high-dose IV steroids could be causing her symptoms. Suspect patient being on home medications for several days also could have been contributing to her symptoms. Her known history of dementia with mild mood disturbance is also likely playing a role. Patient required ICU management with Precedex drip for several days during admission, weaned off Precedex on 11/13 and transferred to the floor. Restarted home mirtazapine, sertraline and donepezil on 11/14. Continue Zyprexa 2.5 mg twice daily started on 11/13. Did start Haldol 1 mg every 6 hours as needed on 11/14 as patient was having intermittent agitation, as needed 2 doses to this point. Discontinued IV steroids on 11/15. ? Patient more somnolent on 11/16, have concern for overmedication. Will discontinue home mirtazapine and melatonin. Haldol as needed discontinued. Will continue low-dose Zyprexa that was started on this admission. Continue home sertraline. Monitor closely. 2. Acute hypoxic/hypercapnic respiratory failure, improving ? Multifactorial secondary to acute COVID-19 infection with concurrent superimposed bacterial right lower lobe pneumonia, as well as CHF exacerbation. Required AVAPS earlier in admission, now stable on 4 to 6 L nasal cannula for last few days. Completed course of remdesivir for COVID as noted below. Completed 9 days of IV Decadron, discontinued on 11/15 due to concern for mental status changes due to high-dose steroids as noted above. Completed course of p.o. Levaquin. Wean supplemental oxygen as able. Treating heart failure as noted below. Will likely require supplemental oxygen on discharge to SNF. 3. HFpEF, stable ? Echo 11/08 showed EF 65%, normal diastole for age, small pericardial effusion, however was likely limited secondary to body habitus. Notably with hypoxia and lower extremity edema on admission, responded well to IV diuresis. Developed SOLE on 11/14 as noted below, likely secondary to overdiuresis, now improving with Lasix held. Home p.o. Lasix restarted on 11/16. 4. SOLE on CKD stage IIIa, improving ? Creatinine 1.3 on admit, improved to baseline of 0.9 to 1.0 on 11/11 with IV di uresis. Creatinine again worsened to 1.65 on 11/14, suspected due to overdiuresis. Improved with holding Lasix. Restarted home p.o. Lasix on 11/16. Monitor daily BMP and urine output. 5. COVID-19 infection ? COVID-19 positive on 11/06. Completed 9 days of IV Decadron, discontinued on 11/15 as noted above. Completed 5-day course of remdesivir. Isolation precautions removed on 11/16. 6. Elevated troponins, resolved ? Suspected due to demand ischemia. Echo as noted above. EKG in ED with no e vidence of acute ischemia. Continue home aspirin. Chronic medical conditions: ? Type 2 diabetes mellitus: Sliding scale insulin while inpatient. ? COPD not on home O2: Treating acute respiratory failure as noted above. Complicates presentation. ? Anxiety/depression: Continue home sertraline, holding home mirtazapine as noted above. ? Hypertension: Holding home losartan, isosorbide mononitrate, p.o. Lasix, restart when able. ? Hyperlipidemia: Continue home statin. ? TACO: Attempt BiPAP nightly as patient tolerates. ? Morbid obesity: BMI 50 on admit. Encouraged lifestyle modifications. Compl [facility] hospital course, care and prognosis. DVT prophylaxis: Heparin subcu CODE STATUS: DNR CCA, DNI Expected disposition: SNF, 1 to 2 days Total clinical time spent by myself addressing the patient's medical issues, reviewing all the data, and collaborating with patient's care team: 35 minutes. Charges/Coding Visit Charges Inpatient E&M: 24415 Subs Hosp L2
--- NOTE | 2023-11-16 16:34 | EX.PCM.CON.G ---
HPI Consult Data Date of Consult: 11/16/23 Attending Care Provider: Anemia HPI Narrative HPI Narrative: ROBBIN SINGH, is a 83 F who presents with worsening shortness of breath. She has a past medical history of colovesical fistula, COPD, Dementia with mood disturbance history, TACO, CKD stage IIIa, HTN, HLD, Chronic anemia, HF unclear type, Anxiety and Depression, Diabetes mellitus type II who presents to the [facility] ED on 11/06/23 with history of onset of dyspnea worsening over the last day. Also with a mild cough and altered mental status above her baseline with known underlying dementia but significantly worsened over the last 24 hours with daughter noting that she was recently diagnosed with COVID with possibly increased urinary frequency and foul-smelling urine with history of issues with urinary tract infections given known colovesical fistula prompting ED evaluation. [facility] Medical History (Updated 11/08/23 @ 11:[address] Afshin Trivedi MD) Arthritis CHF (congestive heart failure) Chronic back pain Colovesical fistula COPD (chronic obstructive pulmonary disease) Dementia with mood disturbance Diabetes DJD (degenerative joint disease) High cholesterol Hypertension Interstitial cystitis Melanoma TACO (obstructive sleep apnea) Pulmonary hypertension Pulmonary nodule Stage 3a chronic kidney disease (CKD) Home Medications albuterol sulfate 2.5 mg/3 mL (0.083 %) solution for nebulization 2.5 mg inhalation Q6H PRN PRN Wheezing 01/14/18 [History Last Taken Unknown] aspirin 81 mg chewable tablet 81 mg PO DAILY@0800 01/14/18 [History Last Taken Unknown] atorvastatin 40 mg tablet 40 mg PO QHS 01/14/18 [History Last Taken Unknown] furosemide 20 mg tablet 20 mg PO BIDCM 01/14/18 [History Last Taken Unknown] hydrocodone-acetaminophen 5-325mg 5mg-325mg 1 tab PO Q8H PRN Pain 01/14/18 [History Last Taken 11/06/23 06:00 1 TAB] losartan 50 mg tablet (Cozaar) 50 mg PO DAILY 01/14/18 [History Last Taken Unknown] donepezil 10 mg tablet 10 mg PO QHS 11/06/23 [History Last Taken Unknown] hydroxyzine HCl 10 mg tablet 10 mg PO QHS 11/06/23 [History Last Taken Unknown] isosorbide mononitrate 30 mg tablet,extended release 24 hr 30 mg PO DAILY 11/06/23 [History Last Taken Unknown] melatonin 10 mg capsule 10 mg PO QHS 11/06/23 [History Last Taken Unknown] metformin 500 mg tablet,extended release 24 hr 1,000 mg PO DAILY 11/06/23 [History Last Taken Unknown] mirtazapine 7.5 mg tablet 7.5 mg PO QHS 11/06/23 [History Last Taken Unknown] pantoprazole 40 mg tablet,delayed release 40 mg PO Q12H 11/06/23 [History Last Taken Unknown] phenazopyridine 95 mg tablet (Azo Urinary Pain Relief) 190 mg PO BID 11/06/23 [History Last Taken Unknown] pioglitazone 15 mg tablet 15 mg PO DAILY 11/06/23 [History Last Taken Unknown] sertraline 50 mg tablet 50 mg PO Q24H 11/06/23 [History Last Taken Unknown] Allergy/AdvReac Type Severity Reaction Status Date / Time Iodinated Contrast Media Allergy Other Verified 11/06/23 14:13 [DYEE] morphine AdvReac Shortness Verified 11/06/23 20:21 of breath tramadol [From Ultram] AdvReac Other Verified 11/06/23 14:13 trazodone AdvReac Other Verified 11/06/23 14:13 Family History Mother Hypertension Father CVA (cerebral vascular accident) Hypertension Diabetes Surgical History History of cholecystectomy History of left knee replacement Social History household members: children Smoking Status: Former smoker how long ago did patient quit smoking: Quit ~ 27 yrs prior, smoked 4 ppd since age 19 until quit. alcohol intake: never substance use type: does not use ROS ROS Narrative Noncontributory Physical Exam Const alert General Appearance: cooperative Resp Effort and Inspection: Negative for able to speak in complete sentences Auscultation: diminished lung sounds; Negative for rales, rhonchi or wheezes Cardio regular rhythm, S1 normal heart sound and S2 normal heart sound Rate: bradycardia GI normal to inspection, nondistended, normoactive bowel sounds Neuro moves all extremities Lab / Micro Data 11/15/23 06:15 11/16/23 09:32 Labs: Laboratory Results - last 24 hr 11/15/23 18:04: POC Glucose 211 H 11/16/23 07:05: POC Glucose 135 H 11/16/23 09:32: Sodium 146 H, Potassium 3.8, Chloride 109 H, Carbon Dioxide 33.0 H, Anion Gap 4 L, BUN 26 H, Creatinine 1.09 H, Estim Creat Clear Calc 55.03, Est GFR (MDRD) Af Amer 62, Est GFR (MDRD) Non-Af 51 L, BUN/Creatinine Ratio 23.9 H, Glucose 148 H, Calcium 10.3 H 11/16/23 11:39: POC Glucose 132 H Micro: Microbiology 11/10/23 18:29 Blood Culture (Wb) - Arm Right Blood Culture - Final No growth in 5 days. 11/10/23 18:21 Blood Culture (Wb) - Right Hand Blood Culture - Final No growth in 5 days. Assessment & Plan Assessment/Plan (1) COVID-19: PLAN: Plan Acute Metabolic Encephalopathy Ongoing secondary to hypercapnia, respiratory failure, underlying illness in patient with underlying dementia. 11/08/2023: Patient was confused and disoriented yesterday and had Haldol and hydroxyzine. Patient is still confused and disoriented. No meaningful conversation possible. On AVAPS 450 mL. ABG done 7.3 0/60 28.6 on AVAPS 40% FiO2. Discussed with the target protection specialist and consulted for same and patient is transferred to ICU for further intensive monitoring and management. She is not transferred to the PCU and is doing better from a respiratory standpoint Anemia with hypercapnic respiratory failure. Differential diagnosis is secondary to medications along with stress gastritis. She should undergo an upper endoscopy to evaluate upper GI tract. Charges/Coding Visit Charges Inpatient E&M: 26169 Subs Hosp L3
[2023-11-16] MEDS: Acetaminophen 325 MG Tablet 650 MG PO (16:59)
[2023-11-16 17:05] LABS: Bedside Glucose 139 mg/dL (74-106)
[2023-11-16] MEDS: Donepezil HCl 10 MG Tablet PO (20:48)
[2023-11-16] MEDS: Atorvastatin Calcium 40 MG Tablet PO (20:48)
[2023-11-16 21:50] LABS: Bedside Glucose 143 mg/dL (74-106)
[2023-11-17] VITALS (7 sets, daily range): BP systolic 143–159; BP diastolic 60–72; PULSE 81–108; RESP 18–24; TEMP 36.7–37.2; O2SAT 92–96; BMI 47.7
[2023-11-17] MEDS: Ipratropium/Albuterol Sulfate 3 ML AMPUL.NEB INHALATION ×2 (07:20→19:01)
[2023-11-17 07:39] LABS: Anion Gap 3 (5-15); BUN 22 mg/dL (7-18); BUN/Creat Ratio 22.7 RATIO (10-20); Chloride 108 mmol/L (98-107); Creatinine, Serum 0.97 mg/dL (0.55-1.02); EST Glomerular Filtration Rate 58 mL/min (>60); Est Glom Filt Rate - Afr Amer 70 mL/min (>60); Estimated Creatinine Clearance 61.87 ml/min; Glucose 113 mg/dL (74-106); Potassium 3.9 mmol/L (3.5-5.1); Sodium Level 145 mmol/L (136-145)
[2023-11-17] MEDS: Heparin Injection (Vial) 5,000 UNIT/ML VIAL 5000 UNIT SC ×2 (09:55→20:30)
[2023-11-17] MEDS: Furosemide 20 MG Tablet PO ×2 (09:56→17:52)
[2023-11-17] MEDS: Pantoprazole Sodium 40 MG Tablet PO (09:56)
[2023-11-17] MEDS: Acetaminophen 325 MG Tablet 650 MG PO ×2 (09:56→20:29)
[2023-11-17] MEDS: Sertraline 50 MG Tablet PO (09:56)
[2023-11-17] MEDS: Menthol/Lanolin/Calamine/Znox 113 GM Tube 1 APPLIC TOPICAL ×4 (09:56→20:31)
[2023-11-17] MEDS: Potassium Chloride Oral Tablet 20 MEQ 40 MEQ PO (09:56)
[2023-11-17] MEDS: Aspirin 81 MG TAB.CHEW PO (09:56)
[2023-11-17] MEDS: OLANZapine 2.5 MG Tablet PO ×2 (09:56→20:30)
--- NOTE | 2023-11-17 10:21 | CASEMGMT ---
SW called patient's daughter Aggie and let her know that [facility] ([facility]) has declined patient as they take Covid patients once they are 20 days out from their positive test. This would not be until Tuesday-. FAITH told Aggie patient will not be at [facility] that long. Aggie said she went and looked at [place] and she felt it was too big. Aggie asked that SW make a referral to [facility]. Aggie said they may want to move patient to [facility] once she is past her 20 days so patient can be closer to [place] where her other daughter and the rest of the family live. FAITH asked Huong to please send a referral to [facility]. Ada Ram CRISIS WORKER DIAMANTE
--- NOTE | 2023-11-17 10:39 | CASEMGMT ---
Addendum entered by Huong Villalta 11/17/23 13:34: Patient has been accepted by [facility] and precert has been submitted. SW updated. Huong Villalta, Discharge Planning Asst. Original Note: Discharge Planning Referral sent to [facility] via [facility]. Huong Villalta, Discharge Planning Asst.
[2023-11-17] MEDS: Insulin Lispro 100 UNIT/ML INSULN.PEN SC (12:00)
[2023-11-17 12:22] LABS: Bedside Glucose 228 mg/dL (74-106)
[2023-11-17] MEDS: Miconazole Nitrate 43 GM Bottle 1 APPLIC TOPICAL ×2 (13:36→20:31)
--- NOTE | 2023-11-17 14:40 | CASEMGMT ---
FAITH called patient's daughter Aggie. FAITH let Aggie know that [facility] accepted patient. FAITH explained insurance has to approve patient. This likely will not happen until tomorrow or later. FAITH will notify Aggie with updates. Plan: [facility] pending pre-cert. Ada Ram COSMETOLOGY PROFESSOR DIAMANTE
--- NOTE | 2023-11-17 15:58 | PCM.PN.HOSP ---
Reason for Visit Reason for Visit: Diagnoses Obstructive sleep apnea (adult) (pediatric) (11/06/23) Acute respiratory failure with hypoxia (11/06/23) Acute respiratory failure with hypercapnia (11/06/23) Altered mental status, unspecified (11/06/23) COVID-19 (11/06/23) Subjective Subjective Patient seen at bedside this morning. Sitting comfortably in bedside chair, appears much more awake and alert this morning than yesterday, no acute distress. Patient feels more alert this morning and is very hopeful about leaving the hospital here soon. She denies any acute pain or discomfort this morning. No other acute concerns. Objective Data Objective Data Vital Signs: Vital Signs Temp Pulse Resp BP Pulse Ox O2 Del Method O2 Flow Rate 98.8 F 108 H 20 H 143/63 H 93 Nasal Cannula 2 11/17/23 09:55 11/17/23 09:55 11/17/23 09:55 11/17/23 09:55 11/17/23 10:35 11/17/23 13:48 11/17/23 13:48 FiO2 30 11/15/23 02:40 Oxygen Flow Rate (L/min) 2 Oxygen Delivery Method Nasal Cannula Weight: 134 kg Body Mass Index (BMI) 47.7 Intake & Output: Intake and Output for Last 24 Hours 11/15/23 11/16/23 11/17/23 23:59 23:59 23:59 Intake Total 740 / 740 360 / 600 480 / 480 Output Total 600 / 800 1350 / 1850 950 / 950 Balance 140 / -60 -990 / -1250 -470 / -470 Lab / Micro Data 11/15/23 06:15 11/17/23 06:55 Labs: Laboratory Results - last 24 hr 11/16/23 16:45: POC Glucose 139 H 11/16/23 20:47: POC Glucose 143 H 11/17/23 06:55: Sodium 145, Potassium 3.9, Chloride 108 H, Carbon Dioxide 34.0 H, Anion Gap 3 L, BUN 22 H, Creatinine 0.97, Estim Creat Clear Calc 61.87, Est GFR (MDRD) Af Amer 70, Est GFR (MDRD) Non-Af 58 L, BUN/Creatinine Ratio 22.7 H, Glucose 113 H, Calcium 10.0 11/17/23 11:59: POC Glucose 228 H Micro: Microbiology 11/10/23 18:29 Blood Culture (Wb) - Arm Right Blood Culture - Final No growth in 5 days. 11/10/23 18:21 Blood Culture (Wb) - Right Hand Blood Culture - Final No growth in 5 days. 11/13/23 16:30 Sputum, Expectorated/Coughed Gram Stain - Final 11/13/23 16:30 Sputum, Expectorated/Coughed Respiratory Culture - Final Presumptive C albicans 11/06/23 14:20 Blood Culture (Wb) - Left Hand Blood Culture - Final Actinotignum schaalii Coag Negative Staph 11/06/23 14:30 Blood Culture (Wb) - Anticubital Left Blood Culture - Final Corynebacterium striatum Rothia kristinae Streptococcus viridans group 11/08/23 15:30 Urine Catheter - Rapp Legionella Antigen - Final 11/08/23 15:30 Urine Catheter - Rapp Streptococcus pneumoniae Antigen (M - Final 11/06/23 14:50 Urine Catheter - Catheter Urine Culture - Final Escherichia coli Pseudomonas aeruginosa 11/07/23 00:55 Mucosa - Nasopharyngeal Respiratory Panel (PCR) - Final 11/06/23 14:50 Urine Catheter - Rapp Legionella Antigen - Final 11/06/23 14:50 Urine Catheter - Rapp Streptococcus pneumoniae Antigen (M - Final 11/06/23 14:27 Mucosa - Nasopharyngeal SARS-CoV-2, Influenza & RSV (PCR) - Final SARS-CoV-2 (COVID 19) Physical Exam Const alert and no apparent distress Constitutional Narrative: Elderly female, morbidly obese, chronically ill-appearing, sitting up in bed, mentation much improved today, conversing normally, no acute distress. General Appearance: cooperative and comfortable HEENT normocephalic, head/scalp atraumatic, hearing grossly normal bilaterally and nasal mucous membranes and turbinates normal Eyes PERRL, EOMs intact bilaterally and conjunctivae normal Neck full ROM, no lymphadenopathy and supple Lymph Lymphatic: no lymphadenopathy noted Chest inspection of chest normal Resp normal respiratory effort and no use of accessory muscles Resp Narrative: Mildly decreased breath sounds bilaterally, suspect due to body habitus. No wheezing or crackles noted. Cardio regular rate, regular rhythm, no murmurs and peripheral pulses 2+ throughout GI normal to inspection, nondistended, normoactive bowel sounds, soft to palpation, non-tender and non-distended Back/Spine normal ROM Extremity normal to inspection and no pedal edema Skin no rashes or lesions noted Neuro no focal motor deficits and no sensory deficits noted Speech: speech normal Psych affect normal Assessment & Plan Assessment/Plan (1) Acute respiratory failure with hypoxia and hypercarbia: (2) Altered mental status: (3) COVID-19: PLAN: Plan Patient is an 83-year-old female who presented to [facility] ED on 11/06/2023 with worsening shortness of breath and altered mental status. 1. Acute metabolic encephalopathy in setting of dementia with mood disturbance Patient with ongoing waxing and waning mental status throughout admission. Was likely multifactorial initially secondary to hypercapnia, respiratory failure, underlying illness in setting of dementia. However, given ongoing symptoms, highest concern now is that high-dose IV steroids could be causing her symptoms. Suspect patient being on home medications for several days also could have been contributing to her symptoms. Her known history of dementia with mild mood disturbance is also likely playing a role. Patient required ICU management with Precedex drip for several days during admission, weaned off Precedex on 11/13 and transferred to the floor. Restarted home mirtazapine, sertraline and donepezil on 11/14. Continue Zyprexa 2.5 mg twice daily started on 11/13. Did start Haldol 1 mg every 6 hours as needed on 11/14 as patient was having intermittent agitation, as needed 2 doses to this point. Discontinued IV steroids on 11/15. Patient more somnolent on 11/16, suspected due to overmedication. Discontinued home mirtazapine and melatonin. Haldol as needed discontinued. ? Mentation much improved on 11/17. Continue low-dose Zyprexa and home sertraline, will plan for these to be her only mood related medications on discharge. Okay for discharge from mental status standpoint. 2. Acute hypoxic/hypercapnic respiratory failure, stable Multifactorial secondary to acute COVID-19 infection with concurrent superimposed bacterial right lower lobe pneumonia, as well as CHF exacerbation. Likely with some degree of underlying lung disease as well, possibly secondary to obesity hypoventilation syndrome. Required AVAPS early in the admission, de-escalated to nasal cannula by 11/11. Completed course of remdesivir for COVID as an below. Completed 9 days of IV Decadron, discontinued on 11/15 due to concern for mental status changes. Completed course of p.o. Levaquin. ? Has remained stable on 3 to 4 L nasal cannula at rest. Will need to remain on supplemental oxygen on discharge. Continue treating heart failure as noted below. 3. HFpEF, stable ? Echo 11/08 showed EF 65%, normal diastole for age, small pericardial effusion, however was likely limited secondary to body habitus. Notably with hypoxia and lower extremity edema on admission, responded well to IV diuresis. Developed SOLE on 11/14 as noted below, likely secondary to overdiuresis, improved with Lasix held. Home p.o. Lasix restarted on 11/16. 4. SOLE on CKD stage IIIa, improving ? Creatinine 1.3 on admit, improved to baseline of 0.9 to 1.0 on 11/11 with IV diuresis. Creatinine again worsened to 1.65 on 11/14, suspected due to overdiuresis. Improved with holding Lasix. Restarted home p.o. Lasix on 11/16. Monitor daily BMP and urine output. 5. COVID-19 infection ? COVID-19 positive on 11/06. Completed 9 days of IV Decadron, discontinued on 11/15 as noted above. Completed 5-day course of remdesivir. Isolation precautions removed on 11/16. 6. Elevated troponins, resolved ? Suspected due to demand ischemia. Echo as noted above. EKG in ED with no evidence of acute ischemia. Continue home aspirin. Chronic medical conditions: ? Type 2 diabetes mellitus: Sliding scale insulin while inpatient. ? COPD not on home O2: Treating acute respiratory failure as noted above. Complicates presentation. ? Anxiety/depression: Continue home sertraline, holding home mirtazapine as noted above. ? Hypertension: Holding home losartan, isosorbide mononitrate, p.o. Lasix, restart when able. ? Hyperlipidemia: Continue home statin. ? TACO: Attempt BiPAP nightly as patient tolerates. ? Morbid obesity: BMI 50 on admit. Encouraged lifestyle modifications. Complicates hospital course, care and prognosis. DVT prophylaxis: Heparin subcu CODE STATUS: DNR CCA, DNI Expected disposition: SNF, 1 to 2 days Total clinical time spent by myself addressing the patient's medical issues, reviewing all the data, and collaborating with patient's care team: 35 minutes. Charges/Coding Visit Charges Inpatient E&M: 86069 Subs Hosp L2
[2023-11-17 17:00] LABS: Bedside Glucose 126 mg/dL (74-106)
[2023-11-17] MEDS: Donepezil HCl 10 MG Tablet PO (20:30)
[2023-11-17] MEDS: Atorvastatin Calcium 40 MG Tablet PO (20:30)
[2023-11-17 20:58] LABS: Bedside Glucose 129 mg/dL (74-106)
[2023-11-17] MEDS: LORazepam 1 MG Tablet PO (21:57)
[2023-11-18 03:33] VITALS: BMI 48.1
[2023-11-18 05:54] LABS: Bedside Glucose 127 mg/dL (74-106)
[2023-11-18 07:01] VITALS: PULSE 89; RESP 20; O2SAT 95
[2023-11-18] MEDS: Ipratropium/Albuterol Sulfate 3 ML AMPUL.NEB INHALATION ×3 (07:01→20:48)
[2023-11-18 08:35] VITALS: BP 140/66; PULSE 97; RESP 20; TEMP 37; O2SAT 96
[2023-11-18] MEDS: Heparin Injection (Vial) 5,000 UNIT/ML VIAL 5000 UNIT SC ×2 (08:37→19:53)
[2023-11-18] MEDS: Potassium Chloride Oral Tablet 20 MEQ 40 MEQ PO (08:38)
[2023-11-18] MEDS: Menthol/Lanolin/Calamine/Znox 113 GM Tube 1 APPLIC TOPICAL ×4 (08:38→19:53)
[2023-11-18] MEDS: Sertraline 50 MG Tablet PO (08:38)
[2023-11-18] MEDS: Furosemide 20 MG Tablet PO ×2 (08:38→16:51)
[2023-11-18] MEDS: Pantoprazole Sodium 40 MG Tablet PO (08:38)
[2023-11-18] MEDS: Aspirin 81 MG TAB.CHEW PO (08:38)
[2023-11-18] MEDS: OLANZapine 2.5 MG Tablet PO ×2 (08:39→19:53)
[2023-11-18] MEDS: Acetaminophen 325 MG Tablet 650 MG PO ×2 (08:42→22:54)
[2023-11-18 12:20] LABS: Bedside Glucose 138 mg/dL (74-106)
[2023-11-18 13:00] VITALS: PULSE 88; RESP 20
--- NOTE | 2023-11-18 13:45 | CASEMGMT ---
Discharge Planning Requested updates for precert sent to via [facility]. Huong Villalta, Discharge Planning Asst.
[2023-11-18] MEDS: Miconazole Nitrate 43 GM Bottle 1 APPLIC TOPICAL ×2 (13:54→19:53)
[2023-11-18 14:35] VITALS: BP 140/57; PULSE 91; RESP 20; TEMP 37.2; O2SAT 95
--- NOTE | 2023-11-18 15:00 | CASEMGMT ---
SW spoke with patient's daughter Aggie this am and let her know insurance has not approved patient yet. Plan: [facility] pending pre-cert. Ada Ram WIRE STRIPPER DIAMANTE
--- NOTE | 2023-11-18 16:50 | CASEMGMT ---
FAITH received a call from patient's daughter Aggie. FAITH let Aggie know that insurance could possibly approve patient over the weekend and if not patient will stay until we get approval. FAITH completed a PASRR in the [employer] system. Plan: d/c to [facility] pending insurance approval. Ada Ram DUMP TRUCK OPERATORHeather BOBBY
--- NOTE | 2023-11-18 17:00 | PCM.PN.HOSP ---
Reason for Visit Reason for Visit: Diagnoses Obstructive sleep apnea (adult) (pediatric) (11/06/23) Acute respiratory failure with hypoxia (11/06/23) Acute respiratory failure with hypercapnia (11/06/23) Altered mental status, unspecified (11/06/23) COVID-19 (11/06/23) Subjective Subjective Patient seen at bedside this morning. Sitting up in bedside chair, no acute distress. Appears fatigued this morning but otherwise mentating appropriately and conversing normally. Denies any acute pain or discomfort this morning. No other acute concerns. Objective Data Objective Data Vital Signs: Vital Signs Temp Pulse Resp BP Pulse Ox O2 Del Method O2 Flow Rate 98.9 F 91 20 H 140/57 H 95 Nasal Cannula 2 11/18/23 14:35 11/18/23 14:35 11/18/23 14:35 11/18/23 14:35 11/18/23 14:35 11/18/23 14:35 11/18/23 14:35 FiO2 30 11/15/23 02:40 Oxygen Flow Rate (L/min) 2 Oxygen Delivery Method Nasal Cannula Weight: 135.2 kg Body Mass Index (BMI) 48.1 Intake & Output: Intake and Output for Last 24 Hours 11/16/23 11/17/23 11/18/23 23:59 23:59 23:59 Intake Total 360 / 600 900 / 900 480 / 480 Output Total 1350 / 1850 1150 / 1550 1225 / 1225 Balance -990 / -1250 -250 / -650 -745 / -745 Lab / Micro Data 11/15/23 06:15 11/17/23 06:55 Labs: Laboratory Results - last 24 hr 11/17/23 16:38: POC Glucose 126 H 11/17/23 20:28: POC Glucose 129 H 11/18/23 05:29: POC Glucose 127 H 11/18/23 11:43: POC Glucose 138 H Micro: Microbiology 11/10/23 18:29 Blood Culture (Wb) - Arm Right Blood Culture - Final No growth in 5 days. 11/10/23 18:21 Blood Culture (Wb) - Right Hand Blood Culture - Final No growth in 5 days. 11/13/23 16:30 Sputum, Expectorated/Coughed Gram Stain - Final 11/13/23 16:30 Sputum, Expectorated/Coughed Respiratory Culture - Final Presumptive C albicans 11/06/23 14:20 Blood Culture (Wb) - Left Hand Blood Culture - Final Actinotignum schaalii Coag Negative Staph 11/06/23 14:30 Blood Culture (Wb) - Anticubital Left Blood Culture - Final Corynebacterium striatum Rothia kristinae Streptococcus viridans group 11/08/23 15:30 Urine Catheter - Rapp Legionella Antigen - Final 11/08/23 15:30 Urine Catheter - Rapp Streptococcus pneumoniae Antigen (M - Final 11/06/23 14:50 Urine Catheter - Catheter Urine Culture - Final Escherichia coli Pseudomonas aeruginosa 11/07/23 00:55 Mucosa - Nasopharyngeal Respiratory Panel (PCR) - Final 11/06/23 14:50 Urine Catheter - Rapp Legionella Antigen - Final 11/06/23 14:50 Urine Catheter - Rapp Streptococcus pneumoniae Antigen (M - Final 11/06/23 14:27 Mucosa - Nasopharyngeal SARS-CoV-2, Influenza & RSV (PCR) - Final SARS-CoV-2 (COVID 19) Physical Exam Const alert and no apparent distress Constitutional Narrative: Elderly female, morbidly obese, chronically ill-appearing, sitting up in bed, mentation much improved today, conversing normally, no acute distress. General Appearance: cooperative and comfortable HEENT normocephalic, head/scalp atraumatic, hearing grossly normal bilaterally and nasal mucous membranes and turbinates normal Eyes PERRL, EOMs intact bilaterally and conjunctivae normal Neck full ROM, no lymphadenopathy and supple Lymph Lymphatic: no lymphadenopathy noted Chest inspection of chest normal Resp normal respiratory effort and no use of accessory muscles Resp Narrative: Mildly decreased breath sounds bilaterally, suspect due to body habitus. No wheezing or crackles noted. Cardio regular rate, regular rhythm, no murmurs and peripheral pulses 2+ throughout GI normal to inspection, nondistended, normoactive bowel sounds, soft to palpation, non-tender and non-distended Back/Spine normal ROM Extremity normal to inspection and no pedal edema Skin no rashes or lesions noted Neuro no focal motor deficits and no sensory deficits noted Speech: speech normal Psych affect normal Assessment & Plan Assessment/Plan (1) Acute respiratory failure with hypoxia and hypercarbia: (2) Altered mental status: (3) COVID-19: PLAN: Plan Patient is an 83-year-old female who presented to [facility] ED on 11/06/2023 with worsening shortness of breath and altered mental status. 1. Acute metabolic encephalopathy in setting of dementia with mood disturbance Patient with ongoing waxing and waning mental status throughout admission. Was likely multifactorial initially secondary to hypercapnia, respiratory failure, underlying illness in setting of dementia. However, given ongoing symptoms, highest concern now is that high-dose IV steroids could be causing her symptoms. Suspect patient being on home medications for several days also could have been contributing to her symptoms. Her known history of dementia with mild mood disturbance is also likely playing a role. Patient required ICU management with Precedex drip for several days during admission, weaned off Precedex on 11/13 and transferred to the floor. Restarted home mirtazapine, sertraline and donepezil on 11/14. Continue Zyprexa 2.5 mg twice daily started on 11/13. Did start Haldol 1 mg every 6 hours as needed on 11/14 as patient was having intermittent agitation, as needed 2 doses to this point. Discontinued IV steroids on 11/15. Patient more somnolent on 11/16, suspected due to overmedication. Discontinued home mirtazapine and melatonin. Haldol as needed discontinued. ? Mentation much improved on 11/17. Continue low-dose Zyprexa and home sertraline, will plan for these to be her only mood related medications on discharge. Medically ready for discharge on 11/17. 2. Acute hypoxic/hypercapnic respiratory failure, stable Multifactorial secondary to acute COVID-19 infection with concurrent superimposed bacterial right lower lobe pneumonia, as well as CHF exacerbation. Likely with some degree of underlying lung disease as well, possibly secondary to obesity hypoventilation syndrome. Required AVAPS early in the admission, de-escalated to nasal cannula by 11/11. Completed course of remdesivir for COVID as an below. Completed 9 days of IV Decadron, discontinued on 11/15 due to concern for mental status changes. Completed course of p.o. Levaquin. ? Has remained stable on 3 to 4 L nasal cannula at rest. Will need to remain on supplemental oxygen on discharge. Continue treating heart failure as noted below. 3. HFpEF, stable ? Echo 11/08 showed EF 65%, normal diastole for age, small pericardial effusion, however was likely limited secondary to body habitus. Notably with hypoxia and lower extremity edema on admission, responded well to IV diuresis. Developed SOLE on 11/14 as noted below, likely secondary to overdiuresis, improved with Lasix held. Home p.o. Lasix restarted on 11/16. 4. SOLE on CKD stage IIIa, improving ? Creatinine 1.3 on admit, improved to baseline of 0.9 to 1.0 on 11/11 with IV diuresis. Creatinine again worsened to 1.65 on 11/14, suspected due to overdiuresis. Improved with holding Lasix. Restarted home p.o. Lasix on 11/16. Monitor daily BMP and urine output. 5. COVID-19 infection ? COVID-19 positive on 11/06. Completed 9 days of IV Decadron, discontinued on 11/15 as noted above. Completed 5-day course of remdesivir. Isolation precautions removed on 11/16. 6. Elevated troponins, resolved ? Suspected due to demand ischemia. Echo as noted above. EKG in ED with no evidence of acute ischemia. Continue home aspirin. Chronic medical conditions: ? Type 2 diabetes mellitus: Sliding scale insulin while inpatient. ? COPD not on home O2: Treating acute respiratory failure as noted above. Complicates presentation. ? Anxiety/depression: Continue home sertraline, holding home mirtazapine as noted above. ? Hypertension: Holding home losartan, isosorbide mononitrate, p.o. Lasix, restart when able. ? Hyperlipidemia: Continue home statin. ? TCAO: Attempt BiPAP nightly as patient tolerates. ? Morbid obesity: BMI 50 on admit. Encouraged lifestyle modifications. Complicates hospital course, care and prognosis. DVT prophylaxis: Heparin subcu CODE STATUS: DNR CCA, DNI Expected disposition: SNF, medically ready for discharge Total clinical time spent by myself addressing the patient's medical issues, reviewing all the data, and collaborating with patient's care team: 35 minutes. Charges/Coding Visit Charges Inpatient E&M: 67830 Subs Hosp L2
[2023-11-18 17:25] LABS: Bedside Glucose 125 mg/dL (74-106)
[2023-11-18] MEDS: Donepezil HCl 10 MG Tablet PO (19:52)
[2023-11-18] MEDS: Atorvastatin Calcium 40 MG Tablet PO (19:52)
[2023-11-18] MEDS: LORazepam 1 MG Tablet PO (20:02)
[2023-11-18 20:35] VITALS: BP 138/59; PULSE 96; RESP 18; TEMP 36.6; O2SAT 94
[2023-11-18 20:48] VITALS: PULSE 85; RESP 20; O2SAT 96
[2023-11-19] VITALS (7 sets, daily range): BP systolic 120–163; BP diastolic 64–96; PULSE 78–94; RESP 14–20; TEMP 36.8–37.7; O2SAT 95–96
[2023-11-19] MEDS: Ipratropium/Albuterol Sulfate 3 ML AMPUL.NEB INHALATION ×3 (07:02→20:33)
[2023-11-19] MEDS: Heparin Injection (Vial) 5,000 UNIT/ML VIAL 5000 UNIT SC ×2 (08:49→22:02)
[2023-11-19] MEDS: Aspirin 81 MG TAB.CHEW PO (08:49)
[2023-11-19] MEDS: Furosemide 20 MG Tablet PO ×2 (08:50→17:36)
[2023-11-19] MEDS: Senna/Docusate Sodium 1 Tablet 2 TABLET PO (08:50)
[2023-11-19] MEDS: Pantoprazole Sodium 40 MG Tablet PO (08:50)
[2023-11-19] MEDS: Sertraline 50 MG Tablet PO (08:51)
[2023-11-19] MEDS: OLANZapine 2.5 MG Tablet PO ×2 (08:51→22:03)
[2023-11-19] MEDS: Insulin Lispro 100 UNIT/ML INSULN.PEN SC (11:31)
[2023-11-19 11:52] LABS: Bedside Glucose 157 mg/dL (74-106)
[2023-11-19] MEDS: Miconazole Nitrate 43 GM Bottle 1 APPLIC TOPICAL ×2 (14:21→22:03)
[2023-11-19] MEDS: Menthol/Lanolin/Calamine/Znox 113 GM Tube 1 APPLIC TOPICAL ×3 (14:21→22:03)
[2023-11-19 17:00] LABS: Bedside Glucose 142 mg/dL (74-106)
--- NOTE | 2023-11-19 18:57 | PCM.PN.HOSP ---
Reason for Visit Reason for Visit: Diagnoses Obstructive sleep apnea (adult) (pediatric) (11/06/23) Acute respiratory failure with hypoxia (11/06/23) Acute respiratory failure with hypercapnia (11/06/23) Altered mental status, unspecified (11/06/23) COVID-19 (11/06/23) Subjective Subjective Seen and examined today, according to nursing she had odor refers diarrhea today, a stool specimen was sent down for C. difficile analysis, the antigen was positive but the toxin was not detected, due to the fact she is having diarrhea however I have elected to treat the patient with oral vancomycin. We are currently awaiting pre-CERT for the patient to go to an extended care facility for rehab services. Objective Data Objective Data Vital Signs: Vital Signs Temp Pulse Resp BP Pulse Ox O2 Del Method O2 Flow Rate 98.3 F 94 16 128/70 H 96 Nasal Cannula 2 11/19/23 15:03 11/19/23 15:03 11/19/23 15:03 11/19/23 15:03 11/19/23 15:03 11/19/23 15:03 11/19/23 15:03 FiO2 30 11/15/23 02:40 Oxygen Flow Rate (L/min) 2 Oxygen Delivery Method Nasal Cannula Weight: 135.2 kg Body Mass Index (BMI) 48.1 Intake & Output: Intake and Output for Last 24 Hours 11/17/23 11/18/23 11/19/23 23:59 23:59 23:59 Intake Total 900 / 900 480 / 480 120 / 120 Output Total 1150 / 1550 1225 / 1725 900 / 900 Balance -250 / -650 -745 / -1245 -780 / -780 Lab / Micro Data 11/15/23 06:15 11/17/23 06:55 Labs: Laboratory Results - last 24 hr 11/19/23 11:29: POC Glucose 157 H 11/19/23 16:41: POC Glucose 142 H Micro: Microbiology 11/19/23 14:23 Stool C. difficile GDH Antigen & Toxins - Final 11/19/23 14:23 Stool Clostridioides difficile (PCR) - Final 11/10/23 18:29 Blood Culture (Wb) - Arm Right Blood Culture - Final No growth in 5 days. 11/10/23 18:21 Blood Culture (Wb) - Right Hand Blood Culture - Final No growth in 5 days. 11/13/23 16:30 Sputum, Expectorated/Coughed Gram Stain - Final 11/13/23 16:30 Sputum, Expectorated/Coughed Respiratory Culture - Final Presumptive C albicans 11/06/23 14:20 Blood Culture (Wb) - Left Hand Blood Culture - Final Actinotignum schaalii Coag Negative Staph 11/06/23 14:30 Blood Culture (Wb) - Anticubital Left Blood Culture - Final Corynebacterium striatum Rothia kristinae Streptococcus viridans group 11/08/23 15:30 Urine Catheter - Rapp Legionella Antigen - Final 11/08/23 15:30 Urine Catheter - Rapp Streptococcus pneumoniae Antigen (M - Final 11/06/23 14:50 Urine Catheter - Catheter Urine Culture - Final Escherichia coli Pseudomonas aeruginosa 11/07/23 00:55 Mucosa - Nasopharyngeal Respiratory Panel (PCR) - Final 11/06/23 14:50 Urine Catheter - Rapp Legionella Antigen - Final 11/06/23 14:50 Urine Catheter - Rapp Streptococcus pneumoniae Antigen (M - Final 11/06/23 14:27 Mucosa - Nasopharyngeal SARS-CoV-2, Influenza & RSV (PCR) - Final SARS-CoV-2 (COVID 19) Physical Exam Const alert and no apparent distress General Appearance: cooperative, well kempt and well developed Orientation / Consciousness: awake, oriented to person and confused HEENT normocephalic, head/scalp atraumatic and moist oral mucous membranes Eyes PERRL, EOMs intact bilaterally and conjunctivae normal Neck supple, no JVD, thyroid normal and no carotid bruits General: trachea midline Resp normal respiratory effort, no retractions, no use of accessory muscles and clear to auscultation bilaterally Auscultation: Negative for rales, rhonchi or wheezes Cardio regular rate, regular rhythm, S1 normal heart sound, S2 normal heart sound, no murmurs, no rub and no gallops GI normal to inspection, nondistended, normoactive bowel sounds, soft to palpation, non-tender and non-distended Extremity no clubbing, cyanosis or edema Skin no rashes or lesions noted General Skin Exam: no breakdown Neuro CN's II-XII intact bilaterally, moves all extremities and no focal motor deficits Neuro Narrative: Patient is alert but confused Sensorium / Orientation: awake, alert and oriented to person Psych Psych Narrative: Patient is alert but confused Assessment & Plan Assessment/Plan (1) Acute respiratory failure with hypoxia and hypercarbia: PLAN: Plan 1. Acute combined respiratory failure secondary to COVID-19 infection with superimposed right lower lobe bacterial community-acquired pneumonia and acute diastolic congestive heart failure-patient is completed a course of remdesivir and IV Decadron for 9 days. Due to the patient's fluctuating mental status, the last day of Decadron was not given. Patient is currently on 2 L of nasal cannula oxygen. #2 acute metabolic encephalopathy on a backdrop of chronic dementia-patient is continuing to receive Zyprexa and Zoloft. #3 chronic dementia-complicates care, medical course, recovery, and prognosis #4 chronic kidney disease stage IIIa-patient remains on p.o. Lasix #5 COVID-19 infection-patient completed medical course for COVID-19 #6 type 2 diabetes-blood sugars will be monitored via fingerstick blood sugars, sliding scale insulin will be given as necessary #7 elevated troponins-etiology unclear #8 chronic obstructive pulmonary disease-complicates care, medical course, recovery, and prognosis #9 essential hypertension-patient's blood pressure medications are being held at this time, her blood pressure appears to be under control at this time Total clinical time spent by myself addressing the patient's medical issues, reviewing all of her data, and collaborating with patient's care team: 35 minutes Charges/Coding Visit Charges Inpatient E&M: 36890 Subs Hosp L2
[2023-11-19] MEDS: Donepezil HCl 10 MG Tablet PO (22:02)
[2023-11-19] MEDS: Atorvastatin Calcium 40 MG Tablet PO (22:03)
[2023-11-19] MEDS: Vancomycin 125 MG/5 ML Susp PO.SYRINGE PO (22:08)
[2023-11-19 22:41] LABS: Bedside Glucose 144 mg/dL (74-106)
[2023-11-20] VITALS (8 sets, daily range): BP systolic 109–162; BP diastolic 63–80; PULSE 64–93; RESP 16–20; TEMP 36.4–36.9; O2SAT 93–98; BMI 47.9
[2023-11-20] MEDS: LORazepam 1 MG Tablet PO ×3 (00:36→19:58)
[2023-11-20] MEDS: Vancomycin 125 MG/5 ML Susp PO.SYRINGE PO ×3 (05:54→17:54)
[2023-11-20] MEDS: Miconazole Nitrate 43 GM Bottle 1 APPLIC TOPICAL ×3 (05:54→19:59)
[2023-11-20 06:40] LABS: Bedside Glucose 147 mg/dL (74-106)
[2023-11-20] MEDS: Potassium Chloride Oral Tablet 20 MEQ 40 MEQ PO (08:25)
[2023-11-20] MEDS: OLANZapine 2.5 MG Tablet PO ×2 (08:26→19:58)
[2023-11-20] MEDS: Heparin Injection (Vial) 5,000 UNIT/ML VIAL 5000 UNIT SC ×2 (08:26→19:58)
[2023-11-20] MEDS: Aspirin 81 MG TAB.CHEW PO (08:26)
[2023-11-20] MEDS: Pantoprazole Sodium 40 MG Tablet PO (08:26)
[2023-11-20] MEDS: Sertraline 50 MG Tablet PO (08:26)
[2023-11-20] MEDS: Furosemide 20 MG Tablet PO ×2 (08:26→17:54)
[2023-11-20] MEDS: Ipratropium/Albuterol Sulfate 3 ML AMPUL.NEB INHALATION ×2 (10:00→21:05)
[2023-11-20 11:43] LABS: Absolute Neutrophil Count 5.1 X10^3/uL (2.0-7.7); Basophil# 0.03 X10^3/uL; Basophil% 0.4 % (0-1); Eosinophils% 5.4 % (0-5); Hematocrit 34.6 % (37-47); Lymphocyte % 14.9 % (19-41); Mean Corp Hgb Conc 28.9 g/dL (32-36); Mean Corpuscular Hgb 23.2 pg (27.0-32.0); Mean Corpuscular Volume 80.3 fL (81-99); Mean Platelet Vol. 10.1 fl (6.2-12.0); Monocyte# 0.66 X10^3/uL; NRBC Flagged by Analyzer 0 % (0-5); Neutrophil # 5.13 X10^3/uL (2.7-7.7); Neutrophil % 69.6 % (47-70); Platelet Count 173 K/mm3 (150-450); RBC Distribution Width CV 19.8 % (11.6-14.6); RBC Distribution Width SD 55.3 fl (35.1-43.9); Red Blood Count 4.31 M/mm3 (4.2-5.4); White Blood Count 7.4 K/mm3 (4.4-11.0)
[2023-11-20 11:59] LABS: Bedside Glucose 141 mg/dL (74-106)
[2023-11-20 14:15] LABS: Anion Gap 5 (5-15); BUN 13 mg/dL (7-18); BUN/Creat Ratio 13.7 RATIO (10-20); Calcium,Total 9.7 mg/dL (8.5-10.1); Chloride 106 mmol/L (98-107); Creatinine, Serum 0.95 mg/dL (0.55-1.02); EST Glomerular Filtration Rate 60 mL/min (>60); Est Glom Filt Rate - Afr Amer 72 mL/min (>60); Estimated Creatinine Clearance 63.34 ml/min; Glucose 158 mg/dL (74-106); Potassium 4.2 mmol/L (3.5-5.1); Sodium Level 145 mmol/L (136-145)
[2023-11-20] MEDS: Menthol/Lanolin/Calamine/Znox 113 GM Tube 1 APPLIC TOPICAL ×3 (15:09→19:59)
[2023-11-20 16:36] LABS: Bedside Glucose 109 mg/dL (74-106)
--- NOTE | 2023-11-20 19:03 | PCM.PN.HOSP ---
Reason for Visit Reason for Visit: Diagnoses Obstructive sleep apnea (adult) (pediatric) (11/06/23) Acute respiratory failure with hypoxia (11/06/23) Acute respiratory failure with hypercapnia (11/06/23) Altered mental status, unspecified (11/06/23) COVID-19 (11/06/23) Subjective Subjective Patient was seen and examined today, she does not voice any complaints to this examiner, she does not carry on much of a conversation with me today and only says a few words. Objective Data Objective Data Vital Signs: Vital Signs Temp Pulse Resp BP Pulse Ox O2 Del Method O2 Flow Rate 98.3 F 91 18 133/80 H 97 Nasal Cannula 2 11/20/23 15:07 11/20/23 15:07 11/20/23 15:07 11/20/23 15:07 11/20/23 15:07 11/20/23 18:00 11/20/23 18:00 FiO2 96 11/19/23 20:33 Oxygen Flow Rate (L/min) 2 Oxygen Delivery Method Nasal Cannula Weight: 134.6 kg Body Mass Index (BMI) 47.9 Intake & Output: Intake and Output for Last 24 Hours 11/18/23 11/19/23 11/20/23 23:59 23:59 23:59 Intake Total 480 / 480 240 / 240 600 / 600 Output Total 1225 / 1725 1250 / 1250 250 / 250 Balance -745 / -1245 -1010 / -1010 350 / 350 Lab / Micro Data 11/20/23 11:38 11/20/23 11:38 Labs: Laboratory Results - last 24 hr 11/19/23 22:01: POC Glucose 144 H 11/20/23 06:21: POC Glucose 147 H 11/20/23 11:37: POC Glucose 141 H 11/20/23 11:38: WBC 7.4, RBC 4.31, Hgb 10.0 L, Hct 34.6 L, MCV 80.3 L, MCH 23.2 L, MCHC 28.9 L, RDW Std Deviation 55.3 H, RDW Coeff of Esvin 19.8 H, Plt Count 173, MPV 10.1, Immature Gran % (Auto) 0.700, Neut % (Auto) 69.6, Lymph % (Auto) 14.9 L, [place] % (Auto) 9.0, Eos % (Auto) 5.4 H, Baso % (Auto) 0.4, Absolute Neuts (auto) 5.1, Absolute Lymphs (auto) 1.10, Nucleated RBC % 0, Sodium 145, Potassium 4.2, Chloride 106, Carbon Dioxide 34.0 H, Anion Gap 5, BUN 13, Creatinine 0.95, Estim Creat Clear Calc 63.34, Est GFR (MDRD) Af Amer 72, Est GFR (MDRD) Non-Af 60, BUN/Creatinine Ratio 13.7, Glucose 158 H, Calcium 9.7 11/20/23 15:05: POC Glucose 109 H Micro: Microbiology 11/19/23 14:23 Stool C. difficile GDH Antigen & Toxins - Final 11/19/23 14:23 Stool Clostridioides difficile (PCR) - Final 11/10/23 18:29 Blood Culture (Wb) - Arm Right Blood Culture - Final No growth in 5 days. 11/10/23 18:21 Blood Culture (Wb) - Right Hand Blood Culture - Final No growth in 5 days. 11/13/23 16:30 Sputum, Expectorated/Coughed Gram Stain - Final 11/13/23 16:30 Sputum, Expectorated/Coughed Respiratory Culture - Final Presumptive C albicans 11/06/23 14:20 Blood Culture (Wb) - Left Hand Blood Culture - Final Actinotignum schaalii Coag Negative Staph 11/06/23 14:30 Blood Culture (Wb) - Anticubital Left Blood Culture - Final Corynebacterium striatum Rothia kristinae Streptococcus viridans group 11/08/23 15:30 Urine Catheter - Rapp Legionella Antigen - Final 11/08/23 15:30 Urine Catheter - Rapp Streptococcus pneumoniae Antigen (M - Final 11/06/23 14:50 Urine Catheter - Catheter Urine Culture - Final Escherichia coli Pseudomonas aeruginosa 11/07/23 00:55 Mucosa - Nasopharyngeal Respiratory Panel (PCR) - Final 11/06/23 14:50 Urine Catheter - Rapp Legionella Antigen - Final 11/06/23 14:50 Urine Catheter - Rapp Streptococcus pneumoniae Antigen (M - Final 11/06/23 14:27 Mucosa - Nasopharyngeal SARS-CoV-2, Influenza & RSV (PCR) - Final SARS-CoV-2 (COVID 19) Physical Exam Narrative alert and no apparent distress General Appearance: cooperative, well kempt and well developed Orientation / Consciousness: awake, oriented to person and confused HEENT normocephalic, head/scalp atraumatic and moist oral mucous membranes Eyes PERRL, EOMs intact bilaterally and conjunctivae normal Neck supple, no JVD, thyroid normal and no carotid bruits General: trachea midline Resp normal respiratory effort, no retractions, no use of accessory muscles and clear to auscultation bilaterally Auscultation: Negative for rales, rhonchi or wheezes Cardio regular rate, regular rhythm, S1 normal heart sound, S2 normal heart sound, no murmurs, no rub and no gallops GI normal to inspection, nondistended, normoactive bowel sounds, soft to palpation, non-tender and non-distended Extremity no clubbing, cyanosis or edema Skin no rashes or lesions noted General Skin Exam: no breakdown Neuro CN's II-XII intact bilaterally, moves all extremities and no focal motor deficits Neuro Narrative: Patient is alert but confused Sensorium / Orientation: awake, alert and oriented to person Psych Psych Narrative: Patient is alert but confused Assessment & Plan Assessment/Plan (1) Acute respiratory failure with hypoxia and hypercarbia: PLAN: Plan 1. Acute combined respiratory failure secondary to COVID-19 infection with superimposed right lower lobe bacterial community-acquired pneumonia and acute diastolic congestive heart failure-patient is completed a course of remdesivir and IV Decadron for 9 days. Due to the patient's fluctuating mental status, the last day of Decadron was not given. Patient is currently on 2 L of nasal cannula oxygen. #2 acute metabolic encephalopathy on a backdrop of chronic dementia-patient is continuing to receive Zyprexa and Zoloft. #3 chronic dementia-complicates care, medical course, recovery, and prognosis #4 chronic kidney disease stage IIIa-patient remains on p.o. Lasix #5 COVID-19 infection-patient completed medical course for COVID-19 #6 type 2 diabetes-blood sugars will be monitored via fingerstick blood sugars, sliding scale insulin will be given as necessary #7 elevated troponins-etiology unclear #8 chronic obstructive pulmonary disease-complicates care, medical course, recovery, and prognosis #9 essential hypertension-patient's blood pressure medications are being held at this time, her blood pressure appears to be under control at this time #10 stool positive for C. difficile without detectable toxin-I have elected to continue the patient for 10 more days on oral vancomycin due to diarrhea Total clinical time spent by myself addressing the patient's medical issues, reviewing all of her data, and collaborating with patient's care team: 35 minutes Charges/Coding Visit Charges Inpatient E&M: 61630 Subs Hosp L2
[2023-11-20] MEDS: Donepezil HCl 10 MG Tablet PO (19:58)
[2023-11-20] MEDS: Atorvastatin Calcium 40 MG Tablet PO (19:58)
[2023-11-20 22:55] LABS: Bedside Glucose 147 mg/dL (74-106)
[2023-11-21 02:15] VITALS: BP 151/63; PULSE 94; RESP 18; TEMP 36.8; O2SAT 94
[2023-11-21] MEDS: Vancomycin 125 MG/5 ML Susp PO.SYRINGE PO ×4 (02:24→18:23)
[2023-11-21 06:00] VITALS: BMI 48.0
[2023-11-21] MEDS: Miconazole Nitrate 43 GM Bottle 1 APPLIC TOPICAL ×2 (06:32→14:38)
[2023-11-21] MEDS: LORazepam 1 MG Tablet PO ×2 (06:43→18:16)
[2023-11-21 07:00] VITALS: PULSE 85; RESP 18; O2SAT 94
[2023-11-21] MEDS: Ipratropium/Albuterol Sulfate 3 ML AMPUL.NEB INHALATION (07:00)
[2023-11-21 07:01] LABS: Bedside Glucose 132 mg/dL (74-106)
[2023-11-21 08:15] VITALS: BP 127/67; PULSE 89; RESP 18; TEMP 36.8; O2SAT 92
[2023-11-21] MEDS: Sertraline 50 MG Tablet PO (08:59)
[2023-11-21] MEDS: Furosemide 20 MG Tablet PO ×2 (08:59→18:23)
[2023-11-21] MEDS: OLANZapine 2.5 MG Tablet PO (08:59)
[2023-11-21] MEDS: Potassium Chloride Oral Tablet 20 MEQ 40 MEQ PO (08:59)
[2023-11-21] MEDS: Pantoprazole Sodium 40 MG Tablet PO (08:59)
[2023-11-21] MEDS: Aspirin 81 MG TAB.CHEW PO (08:59)
[2023-11-21] MEDS: Menthol/Lanolin/Calamine/Znox 113 GM Tube 1 APPLIC TOPICAL ×3 (09:00→18:16)
[2023-11-21] MEDS: Heparin Injection (Vial) 5,000 UNIT/ML VIAL 5000 UNIT SC (09:02)
--- NOTE | 2023-11-21 09:22 | CASEMGMT ---
Discharge Planning Updates sent to via [facility]. Asked for status of precert. Awaiting response. Huong Villalta, Discharge Planning Asst.
[2023-11-21 11:48] LABS: Bedside Glucose 139 mg/dL (74-106)
--- NOTE | 2023-11-21 11:53 | CASEMGMT ---
Patient was approved to go to [facility]. SW notified physician. Ada Ram [employer]
--- NOTE | 2023-11-21 12:02 | CASEMGMT ---
Patient was approved for [facility]. SW called patient's daughter Aggie and let her know patient was approved. SW also let Aggie know that someone will call her with a transport time for patient. Patient ready for discharge to [facility] under skilled level of care on a [facility]. Physicians will transport patient via cot. Plan: [facility] under skilled level of care on a [facility]. Ada Ram ACCOUNTS RECEIVABLE COORDINATORHeather BOBBY
--- NOTE | 2023-11-21 15:30 | TREXTCAR_ITS ---
Diet Diet Order/Speech Therapy: 11/17/23 13:21 Diet: Carbohydrate Controlled Food consistency:: Mechanical (Minced/Moist) Liquid Consistency:: Regular/Thin Type of Dietary Supplement:: 4 oz Glucerna Shake tid Is pt able to select menu?: No Diet Comments: Direct sup and Feeding assistance, Sips one at a time, meds c rushed Routine Orders/Code Status O2 Liters per Minute: 2 O2 Frequency: Continuous Keep PO Greater than or Equal to (%): 90 Routine Lab Work: - (Fingerstick blood sugar was AC nightly, Humalog subcu per sliding scale: 200-250: 5 units, 251-300: 8 units, 301-350: 12 units) Code Status: DNRCC-A (no intubation) Wound(s) LEFT ABD: Wound Type: EXCORIATION coccyx: Wound Type: Pressure Injury Therapies Weight Bearing: Full weight bearing (with walker) Physical Therapy: Eval and Treat Occupational Therapy: Eval and Treat Speech Therapy: Eval and Treat Problem/Diagnosis (1) Acute respiratory failure with hypoxia and hypercarbia: Status: Acute Code(s): J96.01 - Acute respiratory failure with hypoxia; J96.02 - Acute respiratory failure with hypercapnia Plan 1. Acute combined respiratory failure secondary to COVID-19 infection with superimposed right lower lobe bacterial community-acquired pneumonia and acute diastolic congestive heart failure-patient is completed a course of remdesivir and IV Decadron for 9 days. Due to the patient's fluctuating mental status, the last day of Decadron was not given. Patient is currently on 2 L of nasal cannula oxygen. #2 acute metabolic encephalopathy on a backdrop of chronic dementia-patient is continuing to receive Zyprexa and Zoloft. #3 chronic dementia-complicates care, medical course, recovery, and prognosis #4 chronic kidney disease stage IIIa-patient remains on p.o. Lasix #5 COVID-19 infection-patient completed medical course for COVID-19 #6 type 2 diabetes-blood sugars will be monitored via fingerstick blood sugars, sliding scale insulin will be given as necessary #7 elevated troponins-etiology unclear #8 chronic obstructive pulmonary disease-complicates care, medical course, recovery, and prognosis #9 essential hypertension-patient's blood pressure medications are being held at this time, her blood pressure appears to be under control at this time #10 stool positive for C. difficile without detectable toxin-I have elected to continue the patient for 10 more days on oral vancomycin due to diarrhea Total clinical time spent by myself addressing the patient's medical issues, reviewing all of her data, and collaborating with patient's care team: 35 minutes Allergies/Procedures Done in Hospital Allergies Iodinated Contrast Media [DYEE] Allergy (Verified 11/06/23 14:13) Other morphine Adverse Reaction (Verified 11/06/23 20:21) Shortness of breath tramadol [From Ultram] Adverse Reaction (Verified 11/06/23 14:13) Other trazodone Adverse Reaction (Verified 11/06/23 14:13) Other Procedures: None Type of Care/Length of Stay Estimated LOS: Convalescent Care Less Than 30 days Type of Care Needed: Skilled Rehab Potential: Good Prognosis: Good Additional Orders/Day of Discharge H&P will serve as current which was dated: 11/06/23 Day of Discharge: 11/21/23 Dietary and Speech Recommendations Dietitian Recommendations/Changes: Continue CHO Controlled diet with texture/consistency per SOLUTION DESIGN AND ANALYSIS MANAGER to manage medical conditions. Continue 4 oz glucerna shake tid w/ meals for increased nutrition if consumed until po intake consistently >75%, then d/c ONS Discharge Plan Admission Admit Date/Time: 11/06/23 18:06 Primary Reason for Your Visit: acute respiratory failure Attending Provider: Octavio Jane Primary Care Provider: Leno Son Consulting Providers: Myesha Child; Sha Sharpe; Marcelino Ortiz; Afshin Trivedi; Omar Bunch; Constanza Crowe; Keyon Saenz; Vivian Torres NP; Fletcher Gallo; Pipo Man Discharge Orders/Prescriptions Prescriptions: New acetaminophen 325 mg Tablet 650 mg PO Q4H PRN PRN (Reason: Fever, pain 1-10) Qty: 0 0RF ipratropium-albuterol 0.5 mg-3 mg(2.5 mg base)/3 mL Solution For Nebulization 3 ml inhalation Q6HWA.RT Qty: 1 0RF miconazole nitrate [Desenex] 2 % Powder 1 applic topical TID Qty: 0 0RF Protocol: *Topical Application Instructions APPLICATION INSTRUCTIONS: apply to abdominal and breasts folds olanzapine 2.5 mg Tablet 2.5 mg PO BID Qty: 0 0RF potassium chloride 20 mEq Tablet,Er Particles/Crystals 40 meq PO DAILYCM Qty: 0 0RF pantoprazole 40 mg Tablet,Delayed Release (Dr/Ec) 40 mg PO DAILY Qty: 0 0RF aspirin 81 mg Tablet,Chewable 81 mg PO BREAKFAST Qty: 0 0RF lorazepam 1 mg Tablet 1 mg PO Q6H PRN PRN (Reason: Anxiety/Agitation) Qty: 8 0RF menthol-zinc oxide [Calmoseptine] 0.44-20.6 % Ointment 1 applic topical 4X/DAY Qty: 0 0RF Protocol: *Topical Application Instructions APPLICATION INSTRUCTIONS: apply to affected region vancomycin [Firvanq] 25 mg/mL Recon Soln 125 mg PO Q6 Qty: 0 0RF Rx Instructions: continue for 10 days-stop on 12/01/23 Continued atorvastatin 40 MG tablet 40 mg PO QHS albuterol sulfate 2.5 MG/3 ML solution for nebulization 2.5 mg inhalation Q6H PRN PRN (Reason: Wheezing) aspirin 81 MG tablet,chewable 81 mg PO DAILY@0800 furosemide 20 MG tablet 20 mg PO BIDCM donepezil 10 mg tablet 10 mg PO QHS mirtazapine 7.5 mg tablet 7.5 mg PO QHS sertraline 50 mg tablet 50 mg PO Q24H Discontinued losartan [Cozaar] 50 MG tablet 50 mg PO DAILY hydrocodone-acetaminophen 1 EACH tablet 1 tab PO Q8H PRN (Reason: Pain) pioglitazone 15 mg tablet 15 mg PO DAILY melatonin 10 mg capsule 10 mg PO QHS metformin 500 mg tablet extended release 24 hr 1,000 mg PO DAILY pantoprazole 40 mg tablet,delayed release (DR/EC) 40 mg PO Q12H isosorbide mononitrate 30 mg tablet extended release 24 hr 30 mg PO DAILY hydroxyzine HCl 10 mg tablet 10 mg PO QHS phenazopyridine [Azo Urinary Pain Relief] 95 mg tablet 190 mg PO BID Referrals / Follow Up: Leno Son MD [Primary Care Provider] - Disposition Disposition (needs filled in before D/C Order can be placed): [facility]
--- NOTE | 2023-11-21 15:35 | CHAPLAIN ---
Type of Pastoral Visit ___ Initial Visit _x__ Follow-up Visit ___ On-call Visit ___ General Patient Visit ___ Spiritual Assessment ___ Family Conference ___ Bereavement ___ Rapid Response ___ Code Blue ___ Other (describe below) Pastoral Care Referral From _x__ Patient ___ Family ___ Nurse ___ Physician ___ Assistant Editor ___ Insurance Territory Manager ___ Other (describe below) Sacrament/Intervention _x__ Active listening ___ Anointing ___ Zoroastrianism ___ Bereavement ___ Communion _x__ Marley exploration ___ _x__ Life review _x__ Prayer ___ Reconciliation ___ Sacrament of Sick _x__ Supportive presence ___ Wedding ___ Other (describe below) Pastoral Comments patient is alert and able to communicate clearly this day; pt calls for this warehouse checker to come into room; pt speaks of how much better she feels and how much she desires to go home; pt tells this warehouse checker of a renewed marley in God and how she wants to serve God more and be in taoist; pt talks about her upbringing, the support of a large family, and being saved; pt welcomes presence and prayers
[2023-11-21 15:43] VITALS: BP 127/67; PULSE 89; RESP 18; TEMP 36.8; O2SAT 92
--- NOTE | 2023-11-21 15:56 | DS.PCM_ITS ---
Providers Date of Admission: 11/06/23 Date of Discharge: 11/21/23 Primary Care Physician: Dr. Leno Son MD Consultations 11/06/23 19:50 Consult: Infectious Disease Routine Consulting Provider: Marcelino Ortiz Reason for Consult: COVD, respiratory failure EMERGENT Consult: No Notified: Yes Date Notified: 11/08/23 Time Notified: 09:12 Method of Notification: Answering Service 11/08/23 08:52 Consult: Desktop Operator / Pulmonary Medicine Routine Consulting Provider: Pulmonary Medicine angie [place] Reason for Consult: Acute on chr resp failure, co2 high, encephalopathy EMERGENT Consult: No Notified: Yes Date Notified: 11/08/23 Time Notified: 08:52 Method of Notification: Verbal 11/20/23 16:23 Consult: Onc/Wound/lime kiln operator Routine Comment: Reason for Consult:: pressure injury to coccyx Reason For Visit: RESP FAAILURE, COVID, ? PNA, UTI Diagnosis Discharge Diagnosis (1) Acute respiratory failure with hypoxia and hypercarbia: Status: Resolved Code(s): J96.01 - Acute respiratory failure with hypoxia; J96.02 - Acute respiratory failure with hypercapnia Plan 1. Acute combined respiratory failure secondary to COVID-19 infection with superimposed right lower lobe bacterial community-acquired pneumonia and acute diastolic congestive heart failure-patient is completed a course of remdesivir and IV Decadron for 9 days. Due to the patient's fluctuating mental status, the last day of Decadron was not given. Patient is currently on 2 L of nasal cannula oxygen. #2 acute metabolic encephalopathy on a backdrop of chronic dementia-patient is continuing to receive Zyprexa and Zoloft. #3 chronic dementia-complicates care, medical course, recovery, and prognosis #4 chronic kidney disease stage IIIa-patient remains on p.o. Lasix #5 COVID-19 infection-patient completed medical course for COVID-19 #6 type 2 diabetes-blood sugars will be monitored via fingerstick blood sugars, sliding scale insulin will be given as necessary #7 elevated troponins-etiology unclear #8 chronic obstructive pulmonary disease-complicates care, medical course, recovery, and prognosis #9 essential hypertension-patient's blood pressure medications are being held at this time, her blood pressure appears to be under control at this time #10 stool positive for C. difficile without detectable toxin-I have elected to continue the patient for 10 more days on oral vancomycin due to diarrhea #11 acute heart failure with preserved ejection fraction Total clinical time spent by myself addressing the patient's medical issues, reviewing all of her data, and collaborating with patient's care team: 35 minutes Medications at Discharge Home Medications albuterol sulfate 2.5 mg/3 mL (0.083 %) solution for nebulization 2.5 mg inhalation Q6H PRN PRN Wheezing 01/14/18 aspirin 81 mg chewable tablet 81 mg PO DAILY@0800 01/14/18 atorvastatin 40 mg tablet 40 mg PO QHS 01/14/18 furosemide 20 mg tablet 20 mg PO BIDCM 01/14/18 donepezil 10 mg tablet 10 mg PO QHS 11/06/23 mirtazapine 7.5 mg tablet 7.5 mg PO QHS 11/06/23 sertraline 50 mg tablet 50 mg PO Q24H 11/06/23 acetaminophen 325 mg tablet 650 mg (2 x 325 mg) PO Q4H PRN PRN Fever, pain 1- 08/16 #0 tabs 11/21/23 aspirin 81 mg chewable tablet 81 mg PO BREAKFAST #0 tabs 11/21/23 ipratropium 0.5 mg-albuterol 3 mg (2.5 mg base)/3 mL nebulization soln 3 ml inhalation Q6HWA.RT #1 mL 11/21/23 lorazepam 1 mg tablet 1 mg PO Q6H PRN PRN Anxiety/Agitation #8 tabs 11/21/23 menthol 0.44 %-zinc oxide 20.6 % topical ointment (Calmoseptine) 1 applic topical 4X/DAY #0 grams 11/21/23 miconazole nitrate 2 % topical powder (Desenex) 1 applic topical TID #0 grams 11/21/23 olanzapine 2.5 mg tablet 2.5 mg PO BID #0 tabs 11/21/23 pantoprazole 40 mg tablet,delayed release 40 mg PO DAILY #0 tabs 11/21/23 potassium chloride 20 mEq tablet,extended release(part/cryst) 40 meq (2 x 20 mEq) PO DAILYCM #0 tabs 11/21/23 vancomycin 25 mg/mL oral solution (Firvanq) 125 mg (5 mL) PO Q6 #0 mL 11/21/23 Hospital Course Operations None Procedures None Summary of Care Provided Minutes Spent on Discharge: 32 Hospital Course: This 83-year-old white female was seen in the emergency room at [facility] with complaints of shortness of breath. Patient's history includes dementia. Examination in the emergency room revealed the patient to require 10 L oxygen high flow to maintain her pulse ox above 90%, lab work showed a normal white blood cell count, hemoglobin was 8.3, creatinine was 1.36 and BUN was 23. Urinalysis indicated a urinary tract infection, chest x-ray showed a right-sided infiltrate. Patient's COVID test was positive. Patient was admitted to PCU, she was placed on IV antibiotics, she received IV remdesivir and Decadron. Patient remained confused during her hospitalization, her Decadron was stopped early due to concerns about confusion with this medication. Patient was felt at 1 time to be in heart failure and was given IV furosemide. Echocardiogram was performed and showed a normal ejection fraction. Patient was seen by PT and OT, discussions were carried out with the family and it was agreed that the patient should go to a skilled care facility for short- term rehab services. On 11/21/2023, patient was seen and examined: On examination she appeared older than her stated age, she does not appear to be in any distress. Vital signs as documented. Skin warm and dry and without overt rashes. Neck without JVD, thyroid appears normal, trachea is midline, neck is supple. Lungs clear, normal air movement was noted. Heart exam notable for regular rhythm, normal sounds and absence of murmurs, rubs or gallops. Abdomen unremarkable and without evidence of organomegaly, masses, or abdominal aortic enlargement, bowel sounds are present in all 4 quadrants, no abdominal tenderness was noted. Extremities nonedematous, no cyanosis was noted, no clubbing was noted. Neuro: Cranial nerves II through XII are grossly intact, no focal motor deficits were noted, sensation to light touch and pinprick is intact, motor exam 5/5 throughout. Psych: Patient is alert but confused On 11/21/2023, patient was transferred to a long-term facility in stable condition. Weight / BMI Weight Weight: 135 kg Body Mass Index (BMI) 48.0 ABG / Lab / Microbiology Data 11/20/23 11:38 11/20/23 11:38 Laboratory: Laboratory Results - last 24 hr 11/20/23 15:05: POC Glucose 109 H 11/20/23 20:08: POC Glucose 147 H 11/21/23 06:28: POC Glucose 132 H 11/21/23 11:25: POC Glucose 139 H Microbiology: Microbiology 11/19/23 14:23 Stool C. difficile GDH Antigen & Toxins - Final 11/19/23 14:23 Stool Clostridioides difficile (PCR) - Final 11/10/23 18:29 Blood Culture (Wb) - Arm Right Blood Culture - Final No growth in 5 days. 11/10/23 18:21 Blood Culture (Wb) - Right Hand Blood Culture - Final No growth in 5 days. 11/13/23 16:30 Sputum, Expectorated/Coughed Gram Stain - Final 11/13/23 16:30 Sputum, Expectorated/Coughed Respiratory Culture - Final Presumptive C albicans 11/06/23 14:20 Blood Culture (Wb) - Left Hand Blood Culture - Final Actinotignum schaalii Coag Negative Staph 11/06/23 14:30 Blood Culture (Wb) - Anticubital Left Blood Culture - Final Corynebacterium striatum Rothia kristinae Streptococcus viridans group 11/08/23 15:30 Urine Catheter - Rapp Legionella Antigen - Final 11/08/23 15:30 Urine Catheter - Rapp Streptococcus pneumoniae Antigen (M - Final 11/06/23 14:50 Urine Catheter - Catheter Urine Culture - Final Escherichia coli Pseudomonas aeruginosa 11/07/23 00:55 Mucosa - Nasopharyngeal Respiratory Panel (PCR) - Final 11/06/23 14:50 Urine Catheter - Rapp Legionella Antigen - Final 11/06/23 14:50 Urine Catheter - Rapp Streptococcus pneumoniae Antigen (M - Final 11/06/23 14:27 Mucosa - Nasopharyngeal SARS-CoV-2, Influenza & RSV (PCR) - Final SARS-CoV-2 (COVID 19) Meaningful Use Info Meaningful Use Diagnoses (Choose all that apply): None applicable Discharge Plan Admission Admit Date/Time: 11/06/23 18:06 Primary Reason for Your Visit: acute respiratory failure Attending Provider: Octavio Jane Primary Care Provider: Leno Son Consulting Providers: Myesha Child; Sha Sharpe; Marcelino Ortiz; Afshin Trivedi; Omar Bunch; Constanza Crowe; Keyon Saenz; Vivian Torres WHEEL BLOCKER; Fletcher Gallo; Pipo Man Discharge Orders/Prescriptions Prescriptions: New acetaminophen 325 mg Tablet 650 mg PO Q4H PRN PRN (Reason: Fever, pain 1-08/16) Qty: 0 0RF ipratropium-albuterol 0.5 mg-3 mg(2.5 mg base)/3 mL Solution For Nebulization 3 ml inhalation Q6HWA.RT Qty: 1 0RF miconazole nitrate [Desenex] 2 % Powder 1 applic topical TID Qty: 0 0RF Protocol: *Topical Application Instructions APPLICATION INSTRUCTIONS: apply to abdominal and breasts folds olanzapine 2.5 mg Tablet 2.5 mg PO BID Qty: 0 0RF potassium chloride 20 mEq Tablet,Er Particles/Crystals 40 meq PO DAILYCM Qty: 0 0RF pantoprazole 40 mg Tablet,Delayed Release (Dr/Ec) 40 mg PO DAILY Qty: 0 0RF aspirin 81 mg Tablet,Chewable 81 mg PO BREAKFAST Qty: 0 0RF lorazepam 1 mg Tablet 1 mg PO Q6H PRN PRN (Reason: Anxiety/Agitation) Qty: 8 0RF menthol-zinc oxide [Calmoseptine] 0.44-20.6 % Ointment 1 applic topical 4X/DAY Qty: 0 0RF Protocol: *Topical Application Instructions APPLICATION INSTRUCTIONS: apply to affected region vancomycin [Firvanq] 25 mg/mL Recon Soln 125 mg PO Q6 Qty: 0 0RF Rx Instructions: continue for 10 days-stop on 12/01/23 Continued atorvastatin 40 MG tablet 40 mg PO QHS albuterol sulfate 2.5 MG/3 ML solution for nebulization 2.5 mg inhalation Q6H PRN PRN (Reason: Wheezing) aspirin 81 MG tablet,chewable 81 mg PO DAILY@0800 furosemide 20 MG tablet 20 mg PO BIDCM donepezil 10 mg tablet 10 mg PO QHS mirtazapine 7.5 mg tablet 7.5 mg PO QHS sertraline 50 mg tablet 50 mg PO Q24H Discontinued losartan [Cozaar] 50 MG tablet 50 mg PO DAILY hydrocodone-acetaminophen 1 EACH tablet 1 tab PO Q8H PRN (Reason: Pain) pioglitazone 15 mg tablet 15 mg PO DAILY melatonin 10 mg capsule 10 mg PO QHS metformin 500 mg tablet extended release 24 hr 1,000 mg PO DAILY pantoprazole 40 mg tablet,delayed release (DR/EC) 40 mg PO Q12H isosorbide mononitrate 30 mg tablet extended release 24 hr 30 mg PO DAILY hydroxyzine HCl 10 mg tablet 10 mg PO QHS phenazopyridine [Azo Urinary Pain Relief] 95 mg tablet 190 mg PO BID Referrals / Follow Up: Leno Son MD [Primary Care Provider] - Disposition Disposition (needs filled in before D/C Order can be placed): Longterm Facility Charges/Coding Visit Charges Inpatient E&M: 13832 Disch Hosp >30min
--- NOTE | 2023-11-21 15:59 | NURSING ---
Report called to nurse Guzman for pt to be d/c to [facility].
--- NOTE | 2023-11-21 16:02 | PHA.DC_ITS ---
Pharmacy MS Med Reconciliation Pharmacy Service has performed discharge medication reconciliation for this patient. The patient's discharge medication list was reviewed for discrepancies and discrepancies were resolved. Medications at Discharge Home Medications albuterol sulfate 2.5 mg/3 mL (0.083 %) solution for nebulization 2.5 mg inhalation Q6H PRN PRN Wheezing 01/14/18 aspirin 81 mg chewable tablet 81 mg PO DAILY@0800 01/14/18 atorvastatin 40 mg tablet 40 mg PO QHS 01/14/18 furosemide 20 mg tablet 20 mg PO BIDCM 01/14/18 donepezil 10 mg tablet 10 mg PO QHS 11/06/23 mirtazapine 7.5 mg tablet 7.5 mg PO QHS 11/06/23 sertraline 50 mg tablet 50 mg PO Q24H 11/06/23 acetaminophen 325 mg tablet 650 mg (2 x 325 mg) PO Q4H PRN PRN Fever, pain 1- 08/16 #0 tabs 11/21/23 aspirin 81 mg chewable tablet 81 mg PO BREAKFAST #0 tabs 11/21/23 ipratropium 0.5 mg-albuterol 3 mg (2.5 mg base)/3 mL nebulization soln 3 ml inhalation Q6HWA.RT #1 mL 11/21/23 lorazepam 1 mg tablet 1 mg PO Q6H PRN PRN Anxiety/Agitation #8 tabs 11/21/23 menthol 0.44 %-zinc oxide 20.6 % topical ointment (Calmoseptine) 1 applic topical 4X/DAY #0 grams 11/21/23 miconazole nitrate 2 % topical powder (Desenex) 1 applic topical TID #0 grams 11/21/23 olanzapine 2.5 mg tablet 2.5 mg PO BID #0 tabs 11/21/23 pantoprazole 40 mg tablet,delayed release 40 mg PO DAILY #0 tabs 11/21/23 potassium chloride 20 mEq tablet,extended release(part/cryst) 40 meq (2 x 20 mEq) PO DAILYCM #0 tabs 11/21/23 vancomycin 25 mg/mL oral solution (Firvanq) 125 mg (5 mL) PO Q6 #0 mL 11/21/23
[2023-11-21 16:34] LABS: Bedside Glucose 133 mg/dL (74-106)
--- NOTE | 2023-11-21 16:35 | CASEMGMT ---
Discharge Planning [facility]charge orders, signed med list, [facility] Physicians will transport patient by cot at 5:30p. Nursing, SW, and patients daughter updated. Huong Villalta, Discharge Planning Asst.
== END 2023-11-21 18:36 | DRG 177 ==
LOC: ED 17:03 → PCU 18:24 → ICU 11-08 10:09 → PCU 11-13 17:59
PROVIDERS: Family Medicine; Hospitalist; Internal Medicine; Internal Medicine Critical Care Medicine; Admitting Provider Family Medicine; Emergency Provider Emergency Medicine; PCP Family Medicine; Visit Provider Internal Medicine
DX: U07.1 COVID-19 (principal); J96.01 Acute respiratory failure with hypoxia; J12.82 Pneumonia due to coronavirus disease 2019; I50.31 Acute diastolic (congestive) heart failure; G93.41 Metabolic encephalopathy; J15.9 Unspecified bacterial pneumonia; J96.02 Acute respiratory failure with hypercapnia; A04.72 Enterocolitis due to Clostridium difficile, not specified as recurrent; I13.0 Hypertensive heart and chronic kidney disease with heart failure and stage 1 through stage 4 chronic kidney disease, or unspecified chronic kidney disease; Z68.43 Body mass index [BMI] 50.0-59.9, adult; J44.0 Chronic obstructive pulmonary disease with (acute) lower respiratory infection; N17.9 Acute kidney failure, unspecified; F02.83 Dementia in other diseases classified elsewhere, unspecified severity, with mood disturbance; R78.81 Bacteremia; E87.29 Other acidosis; N32.1 Vesicointestinal fistula; I24.89 Other forms of acute ischemic heart disease; N39.0 Urinary tract infection, site not specified; E11.22 Type 2 diabetes mellitus with diabetic chronic kidney disease; N18.31 Chronic kidney disease, stage 3a; E66.01 Morbid (severe) obesity due to excess calories; Z79.4 Long term (current) use of insulin; G30.9 Alzheimer's disease, unspecified; F32.A Depression, unspecified; G47.33 Obstructive sleep apnea (adult) (pediatric); E78.5 Hyperlipidemia, unspecified; F41.9 Anxiety disorder, unspecified; B97.4 Respiratory syncytial virus as the cause of diseases classified elsewhere; Z87.891 Personal history of nicotine dependence; G89.29 Other chronic pain; Z82.3 Family history of stroke; Z79.84 Long term (current) use of oral hypoglycemic drugs; Z91.199 Patient's noncompliance with other medical treatment and regimen due to unspecified reason; Z66 Do not resuscitate; R77.8 Other specified abnormalities of plasma proteins; B96.5 Pseudomonas (aeruginosa) (mallei) (pseudomallei) as the cause of diseases classified elsewhere; R82.71 Bacteriuria; B96.20 Unspecified Escherichia coli [E. coli] as the cause of diseases classified elsewhere; B95.4 Other streptococcus as the cause of diseases classified elsewhere
CPT/HCPCS: 36415; 36600; 51702; 71045; 80048; 80053; 80061; 80076; 81001; 82330; 82550; 82728; 82803; 82962; 83605; 83615; 83735; 83880; 84100; 84145; 84484; 85025; 85379; 85652; 86140; 87040; 87070; 87077; 87086; 87088; 87184; 87186; 87205; 87449; 87493; 87631; 87633; 87641; 92526; 92610; 93005; 93306; 94002; 94003; 94640; 94660; 97110; 97116; 97163; 97166; 97530; 97535; 99285; J7030; J7040; J7050; Q9957; A4216; J0248; J1940; J2405

== ENCOUNTER 2023-12-02 18:49 | Inpatient (IN) | payer MEDICARE, SELFPAY ==
[2023-12-02] VITALS (30 sets, daily range): BP systolic 113–146; BP diastolic 44–122; PULSE 73–94; RESP 16–33; TEMP 35.8–37.1; O2SAT 2–99; BMI 47.2; BMI 47.5
--- NOTE | 2023-12-02 19:44 | CT_ITS ---
STUDY: CT BRAIN WITHOUT CONTRAST REASON FOR EXAM: Female, 83 years old. confusion RADIATION DOSAGE (If Supplied By Facility): CTDIvol = ( 44.99 ) mGy, DLP = ( 796.11 ) mGycm TECHNIQUE: Transaxial CT imaging of the brain was performed without administration of intravenous contrast material. Individualized dose optimization techniques were used for this CT. COMPARISON: No relevant priors. FINDINGS: Normal soft tissue structures. Normal calvarium. There is mild cerebral atrophy with widening of the extra-axial spaces and ventricular dilatation. Normal white matter tracts of the cerebral hemispheres. Normal basal ganglia and thalami. Normal brainstem. Normal cerebellum. There is no intracranial hemorrhage. There are no findings of an acute ischemic infarction. Mucosal thickening involving the right maxillary sinus and bilateral ethmoids consistent with sequela of sinusitis. CT/Brain/Head without Contrast IMPRESSION: Involutional changes, otherwise normal unenhanced CT scan of the brain. Sequela of sinus disease as described. Electronically Signed: Susanna Elliott MD at 20:54 EST ,
[2023-12-02 20:01] LABS: Absolute Lymphocyte Count 0.93 X10^3/uL (0.83-4.51); Absolute Neutrophil Count 3.7 X10^3/uL (2.0-7.7); Basophil# 0.04 X10^3/uL; Basophil% 0.7 % (0-1); Eosinophil# 0.63 X10^3/uL; Eosinophils% 10.5 % (0-5); Hematocrit 40.1 % (37-47); Hemoglobin 10.8 g/dL (12.0-15.0); Lymphocyte # 0.93 X10^3/ul (0.83-4.51); Lymphocyte % 15.5 % (19-41); Mean Corp Hgb Conc 26.9 g/dL (32-36); Mean Corpuscular Hgb 22.3 pg (27.0-32.0); Mean Corpuscular Volume 82.9 fL (81-99); Mean Platelet Vol. 11.2 fl (6.2-12.0); Monocyte# 0.67 X10^3/uL; Monocyte% 11.1 % (0-10); NRBC Flagged by Analyzer 0 % (0-5); Neutrophil # 3.73 X10^3/uL (2.7-7.7); POSITIVE MORPHOLOGY YES; Platelet Count 147 K/mm3 (150-450); RBC Distribution Width CV 20.3 % (11.6-14.6); RBC Distribution Width SD 59.7 fl (35.1-43.9); Red Blood Count 4.84 M/mm3 (4.2-5.4)
--- OUTSIDE RECORDS SUMMARY | 2023-12-02 20:01 | XMS RPT_ITS | CCD ---
Author Name Unknown Address [address] [facility] [address] [place] [address] Organization [facility] Care Team Providers Care Maintenance Superintendent Name Role Phone LINO ZHU Unavailable Unavailable Leno Briggs Unavailable Unavailable LINO ZHU Unavailable Unavailable LINO ZHU Unavailable Unavailable Leno Briggs Unavailable Unavailable Brigitte [facility], Leno Viramontes Primary Care Provider [phone] Leno Briggs MD Primary Care Provider [phone] Leno Briggs MD Primary Care Provider [phone] Leno Briggs MD Primary Care Provider [phone] LENO BRIGGS Primary Care Unavailable MADALYN DEGROOT Referring Unavailable EUFEMIA CHAPA Attending Unavailable Leno Briggs MD Primary Care Provider [phone] Leno Briggs MD Primary Care Provider [phone] Leno Briggs MD Primary Care Provider [phone] SAMANTHA NAVA Referring Unavailable SAMANTHA NAVA Attending [...] Care Unavailable BRIGITTE, LENO Primary Care Unavailable LENO BRIGGS Attending Unavailable BRIGITTE, LENO Primary Care Unavailable LENO BRIGGS Attending Unavailable JEREMIAH AMEZCUA Referring Unavailable BRIGITTE, LENO Primary Care Unavailable CHAPA, EUFEMIA L Referring Unavailable BRIGITTE, LENO Primary Care Unavailable RADHA BALDWIN Attending Unavailable BRIGITTE, LENO Primary Care Unavailable DENNY, RADHA E Referring Unavailable BRIGITTE, LENO Primary Care Unavailable BRIGITTE, LENO Primary Care Unavailable Leonel Oseguera Attending Unavailable EUFEMIA CHAPA Referring Unavailable BRIGITTE, LENO Primary Care Unavailable LEESA RAMIREZ Attending Unavailable MADALYN DEGROOT Attending Unavailable STEPHANI CROOKS Referring Unavailable BRIGITTE, LENO Primary Care Unavailable STEPHANI CROOKS Referring Unavailable BRIGITTE, LENO Primary Care Unavailable STEPHANI CROOKS Attending Unavailable BRIGITTE, LENO Primary Care Unavailable BRIGITTE, LENO Referring Unavailable BRIGITTE, LENO Primary Care Unavailable BRIGITTE, LENO Primary Care Unavailable LENO BRIGGS Attending Unavailable LENO BRIGGS MD Primary Care Physician CHASTITY TRAMMELL MD Attending Unavail able LENO BRIGGS MD Primary Care Unavailable PATSY MONTANO MD Attending Unavailable ELNO BRIGGS MD Primary Care Unavailable PHYSICIAN, NONE Primary Care Unavailable MARII VAIL DO Attending Unavailable Allergies Allergy Classification Reported Allergen(s) Allergy Type Date of Onset Reaction(s) Facility (20 sources) codeine; Translations: [CODEINE] Drug Allergy 10-12-20 11 Mental Status Change, Dizziness, Unknown [facility] (1 source) Contrast media; Translations: [CONTRAST DYE] Propensity to adverse reactions (disorder) [facility] (20 sources) escitalopram; Translations: [ESCITALOPRAM] Drug Allergy 05-28-20 13 Other: See Comments [facility] (20 sources) sertraline; Translations: [SERTRALINE HCL] Drug Allergy 10-12-20 11 Other: See Comments [facility] (20 sources) sulfamethoxazole / trimethoprim; Translations: [SULFAMETHOXAZOLE-T RIMETHOPRIM] Drug Allergy 01-21-20 15 Itching [facility] (20 sources) traMADol; Translations: [TRAMADOL] Drug Allergy 10-12-20 11 Other: See Comments, Dermatitis, Dizziness, Other [facility] (20 sources) Garlic preparation; Translations: [GARLIC OIL] Drug Allergy 08-09-20 19 Other: See Comments [facility] Work Phone: (20 sources) oxybutynin; Translations: [OXYBUTYNIN] Drug Allergy 12-03-19 Other: See Comments [facility] Work Phone: (13 sources) traZODone Drug Allergy 01-15-20 Other [facility] (13 sources) Iodinated Contrast Media Drug Allergy 01-15-20 18 Other [facility] (1 source) Sertraline; Translations: [sertraline] Drug Allergy [facility] (1 source) Sulfamethoxazole / Trimethoprim; Translations: [sulfamethoxazole-t rimethoprim] Drug Allergy [facility] Medications Current Medications Medication Drug Class(es) Dates [...] [Stage 3a chronic kidney disease (HCC)] Onset: 3 Chronic obstructive pulmonary disease and bronchiectasis (20 [...] 7 11-29-2019 Chronic Diabetes mellitus without complication (1 source) Diabetes mellitus without complication; Translations: [Type 2 diabetes mellitus with stage 3a chronic kidney disease, without long-term current use of insulin ([facility])] Onset: 3 Disorders of lipid metabolism (20 sources) Mixed [...] Translations: [Urge incontinence] Onset: 3 11-25-2016 Chronic Hypertension with complications and secondary hypertension (1 [...] right knee] Onset: 6 11-25-2016 Chronic Other connective tissue disease (20 sources) History [...] 7 Unclassified (1 source) APPOINTMENT CANCELLED Unclassified (2 sources) Results; Translations: [Results] Onset: [...] 3 Unclassified (2 sources) Other Onset: 3 Unclassified (1 source) Anesthesia Consult Onset: 3 Unclassified (1 source) Dementia with mood disturbance, unspecified dementia severity, unspecified dementia type (HCC); Translations: [Dementia with mood disturbance, unspecified dementia severity, unspecified dementia type (HCC)] Onset: 3 Urinary tract infections (20 sources) Chronic interstitial cystitis; Translations: [Interstitial cystitis (chronic) without hematuria] 11-15-2018 Chronic Past or Other Problems Problem Classification Problem Date Documented Da te Episodic/Chronic Complication of device; implant or graft (20 sources) 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; Translations: [Pain due to internal orthopedic prosthetic devices, implants and grafts, initial encounter] Onset: 06-08-2018 11-15-2018 Episodic Genitourinary symptoms and ill-defined conditions (20 sources) Increased frequency of urination; Translations: [Frequency of micturition] Onset: 12-27-2016 03-15-2017 Episodic Immunizations and screening for infectious disease [...] (20 sources) Drug therapy finding; Translations: [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] Onset: 11-25-2016 01-04-2020 Episodic Other aftercare (1 source) Other correction (current) drug therapy; Translations: [Medication management] Onset: 06-21-2023 Episodic Other and unspecified benign neoplasm (20 [...] Results Test Name Value Interpretation Reference Range Facil ity Vital Signs Date Time Vital Sign Value Performing Clinician Facility 11-23-2023 02:53-0500 Diastolic Blood Pressure Non-Invasive 87 mm[Hg] PATSY MONTANO MD [facility] 11-23-2023 02:53-0500 Heart rate 94 /min PATSY MONTANO MD [facility] 11-23-2023 02:53-0500 Respiratory rate 18 /min PATSY MONTANO MD [facility] 11-23-2023 02:53-0500 Systolic Blood Pressure Non-Invasive 141 mm[Hg] PATSY MONTANO MD [facility] 11-23-2023 00:01-0500 Body temperature 98.06 [degF] PATSY MONTANO MD [facility] 11-23-2023 00:01-0500 Diastolic Blood Pressure Non-Invasive 74 mm[Hg] PATSY MONTANO MD [facility] 11-23-2023 00:01-0500 Heart rate 100 /min PATSY MONTANO MD [facility] 11-23-2023 00:01-0500 Respiratory rate 18 /min PATSY MONTANO MD [facility] 11-23-2023 00:01-0500 Systolic Blood Pressure Non-Invasive 153 mm[Hg] PATSY MONTANO MD [facility] 06-21-2023 14:28-0400 Body weight 137.44 kg Lneo Briggs MD Work Phone: [facility] 06-21-2023 14:28-0400 Diastolic blood pressure 84 mm[Hg] Leno Briggs MD Work Phone: [facility] 06-21-2023 14:28-0400 Heart rate 80 /min Leno Briggs MD Work Phone: [facility] 06-21-2023 14:28-0400 Respiratory rate 14 /min Leno Briggs MD Work Phone: [facility] 06-21-2023 14:28-0400 Systolic blood pressure 136 mm[Hg] Leno Briggs MD Work Phone: [facility] 05-25-2023 11:49-0400 Diastolic blood pressure 77 mm[Hg] Samantha Nava MD Work Phone: [facility] Encounters Encounter Date Encounter Type Care Provider Facility Start: 12-01-2023 End: 12-01-2023 Emergency department patient visit CHASTITY TRAMMELL MD Facility:B Start: 11-23-2023 End: 11-23-2023 Emergency department patient visit PTASY MONTANO MD Facility:[facility] Start: 11-22-2023 End: 11-23-2023 Emergency department patient visit PATSY MONTANO MD [facility] Start: 09-19-2023 ambulatory Leno silva MD Work Phone: [facility] Procedures Date Procedure Procedure Detail Performing Clinician Start: 06-21-2023 Drug tst prsmv instr mnt chem analyzers pr date Leno Briggs MD Work Phone: Start: 05-25-2023 Colonoscopy Samantha Santillan ch, MD Work Phone: Start: 05-04-2023 Cyanocobalamin vitamin b-12 Shantal Serrano [employer] - [employer] Work Phone: Start: 11-04-2022 INFLUENZA SEASONAL QUADRIVALENT HIGH DOSE AGE 65+ Stephani Crooks PA-C Work Phone: Start: 05-18-2022 Brncdilat rspse spmt ry pre&post-brncdilat admn Stephani Crooks PA-C Work Phone: Plan of Treatment Date Care Activity Detail Author Start: 05-25-2028 Screening for malign ant neoplasm of colon [facility] Start: 08-31-2024 3 comp foot exam completed Diabetic Foot Exam [facility] Start: 08-31-2024 Covid-19 Vaccine () Covid-19 Vaccine () [facility] Immunizations Immunization Date Immunization Notes Care Provider Verito paulino 08-31-2023 influenza (HD-IIV4) vaccine, age 65+ yr, high dose, quadrivalent, PF (FLUZONE HIGH-DOSE) Leno Briggs MD Work Phone: [facility] 08-31-2023 pneumococcal (PCV20) vaccine, 20 valent (PREVNAR 20) Leno Briggs MD Work Phone: [facility] 11-04-2022 influenza, high-dose , quadrivalent vaccine (FLUZONE HIGH DOSE QUADRIVALENT) Stephani Crooks PA-C Work Phone: [facility] 11-04-2022 influenza virus vacc ine, unspecified formulation Samantha Nava MD Work Phone: [facility] 09-03-2021 influenza, high-dose , quadrivalent vaccine (FLUZONE HIGH DOSE QUADRIVALENT) Leno Briggs MD Work Phone: [facility] 03-17-2021 COVID-19 vaccine, fu ll dose (MODERNA) Leno Briggs MD Work Phone: [facility] 02-17-2021 COVID-19 vaccine, fu ll dose (MODERNA) Leno Briggs MD Work Phone: [facility] 07-31-2019 influenza, high dose seasonal, preservative-free Leno Briggs MD Work Phone: [facility] 09-13-2018 influenza, high dose seasonal, preservative-free Leno Briggs MD Work Phone: [facility] 12-12-2017 pneumococcal polysaccharide vaccine, 23 valent Leno Briggs MD Work Phone: [facility] 09-27-2017 influenza, injectabl e, quadrivalent, contains preservative Leno Briggs MD Work Phone: [facility] 08-27-2016 influenza, injectabl e, quadrivalent, contains preservative Leno Briggs MD Work Phone: [facility] Work Phone: 09-15-2015 influenza, high dose seasonal, preservative-free Leno Briggs MD Work Phone: [facility] Work Phone: 09-15-2015 pneumococcal conjuga te vaccine, 13 valent Leno Briggs MD Work Phone: [facility] Work Phone: 09-20-2014 influenza, seasonal, injectable Leno Briggs MD Work Phone: [facility] Work Phone: 03-27-2014 zoster vaccine, live Leno Briggs MD Work Phone: [facility] Work Phone: 10-24-2013 influenza virus vacc ine, unspecified formulation Leno Briggs MD Work Phone: [facility] 09-06-2012 influenza virus vacc ine, unspecified formulation Leno Briggs MD Work Phone: [facility] Work Phone: 06-21-2012 pneumococcal polysaccharide vaccine, 23 vallynn Briggs MD Work Phone: [facility] Work Phone: 04-24-2012 pneumococcal polysaccharide vaccine, 23 vallynn Briggs MD Work Phone: [facility] Work Phone: Payers Date Payer Category Payer Private Health Insurance 101 [id number] 2021 Medicare UHC AARP MEDICAR E UHC AARP MEDICARE HMO [id number] 2021-Present [phone] [address] [address] [place] [address] O [id number] 2021 Medicare [id number] 2021 Medicare [id number] 1940 Unknown [id number] 1940 Unknown [id number] 1940 Unknown [id number] Medicare [id number] Social History Date Type Detail Facility Start: 08-15-2012 End: 04-05-2023 Tobacco smoking status NHIS Ex-smoker [facility] End: 09-22-1997 History of tobacco use Current smoker [facility] End: 09-22-1997 History of tobacco use Cigarette Smoker [facility] Start: 08-15-2012 End: 04-05-2023 Cigarettes smoked current (pack per day) - Reported 3 [facility] Start: 08-15-2012 End: 07-05-2022 Tobacco use and exposure Smokeless tobacco non-user [facility] Start: 10-13-2021 End: 08-31-2023 Alcohol intake Current non-drinker of alcohol (finding) [facility] Start: 1940 Sex Assigned At Female [facility] Start: 03-12-2022 End: 05-30-2023 Exposure to SARS-CoV-2 (event) Not sure [facility] Work Phone: Start: 07-09-2022 End: 07-19-2022 Exposure to SARS-CoV-2 (event) Unable to assess [facility] Work Phone: Start: 04-01-2023 History SDOH Alcohol Frequency 1 [facility] Start: 04-01-2023 History SDOH Alcohol Std Drinks 0 [facility] Start: 04-01-2023 History SDOH Social Connections Phone 4 [facility] Start: 04-01-2023 History SDOH Social Connections Get Together 5 [facility] Start: 04-01-2023 History SDOH Social Connections Membership 2 [facility] Start: 04-05-2023 End: 05-30-2023 Alcohol intake Lifetime non-drinker (finding) [facility] Start: 1940 Sex Assigned At Not on file S [facility] Start: 04-05-2023 End: 04-11-2023 Tobacco use panel [facility] Within the last year , have you been afraid of your partner or ex-partner? No [facility] Are you now , , , , never or living with a partner? [facility] How often to you hav e a drink containing alcohol? Never [facility] How many standard drinks containing alcohol do you have on a typical day? Patient does not drink [facility] How hard is it for y ou to pay for the very basics like food, housing, medical care, and heating Not very hard [facility] Do you feel stress - tense, restless, nervous, or anxious, or unable to sleep at night because your mind is troubled all the time - these days [OSQ] Only a little [facility] (I/We) worried wheth er (my/our) food would run out before (I/we) got money to buy more. Never true [facility] Start: 07-17-2021 Gender identity Identifies as female gender (finding) [facility] Start: 07-17-2021 Sexual orientation Heterosexual (fin ding) [facility] Start: 12-31-2022 Tobacco smoking status Never s moked tobacco (finding) [facility] Sex Assigned At Sex [facility] Medical Equipment Procedure Code Equipment Code Equipment Origin al Text Equipment Identifier Dates Start: 09-08-2021 Functional Status Date Assessment Result Facility 11-23-2023 Functional Status Standard Safet y ID band on, Call device within reach [facility] Mental Status Date Assessment Result Facility 11-23-2023 Mental Status Orientation Not oriented to place, Not oriented to time, Not oriented to situation, Follows simple commands [facility] Clinical Notes 01-01-2019 to 11-23-2023 Telephone Encounter - [place]andy [place] Ma - 09/20/2023 10:45 AM ESTTelephone Encounter - [place] Ma - 09/20/2023 7:54 AM ESTTelephone Encounter - Loida Rosas - 09/15/2023 3:40 PM EST Note Date & Type Note Facility 11-23-2023 Hospital Discharge instructions Patient Education 11/23/2023 00:51:13 Upper Extremity Contusion Upper Extremity Contusion You have a contusion (bruise) of an upper extremity (arm, wrist, hand, or fingers). Symptoms include pain, swelling, and skin discoloration. No bones are broken. This injury may take from a few days to a few weeks to heal. During that time, the bruise may change from reddish in color, to purple-blue, to green-yellow, to yellow-brown. Home care Unless another medicine was prescribed, you can take acetaminophen, ibuprofen, or naproxen to control pain. (If you have chronic liver or kidney disease or ever had a stomach ulcer or gastrointestinal bleeding, talk with your doctor before using these medicines.) Elevate the injured area to reduce pain and swelling. As much as possible, sit or lie down with the injured area raised about the level of your heart. This is especially important during the first 48 hours. Ice the injured area to help reduce pain and swelling. Wrap a cold source (ice pack or ice cubes in a plastic bag) in a thin towel. Apply to the bruised area for 20 minutes every 1 to 2 hours the first day. Continue this 3 to 4 times a day until the pain and swelling goes away. If a sling was provided, you may remove it to shower or bathe. To prevent joint stiffness, do not wear it for more than 1 week. Follow-up care Follow up with your healthcare provide, or as advised. Call if you are not improving within the next 1 to 2 weeks. When to seek medical advice Call your healthcare provider right away if any of these occur: Increased pain or swelling Hand or fingers become cold, blue, numb or tingly Signs of infection: Warmth, drainage, or increased redness or pain around the injury Inability to move the injured body part Frequent bruising for unknown reasons [id number] [employer]. [address] [place] [address]. All rights reserved. This information is not intended as a substitute for professional medical care. Always follow your healthcare professional's instructions. 11/23/2023 00:50:41 Head Injury (Adult) Head Injury (Adult) You have a head injury. It does not appear serious at this time. But symptoms of a more serious problem, such as a mild brain injury (concussion) or bruising or bleeding in the brain, may appear later. For this reason, you or someone caring for you will need to watch for the symptoms listed below. Once you re home, also be sure to follow any care instructions you re given. Home care Watch for the following symptoms Seek emergency medical care if you have any of these symptoms over the next hours to days: Headache Nausea or vomiting Dizziness Sensitivity to light or noise Unusual sleepiness or grogginess Trouble falling asleep Personality changes Vision changes Memory loss Confusion Trouble walking or clumsiness Loss of consciousness (even for a short time) Inability to be awakened Stiff neck Weakness or numbness in any part of the body Seizures General care If you were prescribed medicines for pain, use them as directed. Note: Don t take other medicines for pain without talking to your provider first. To help reduce swelling and pain, apply a cold source to the injured area for up to 20 minutes at a time. Do this as often as directed. Use a cold pack or bag of ice wrapped in a thin towel. Never apply a cold source directly to the skin. If you have cuts or scrapes as a result of your head injury, care for them as directed. For the next 24 hours (or longer, if instructed): oDon t drink alcohol or use sedatives or other medicines that make you sleepy. oDon t drive or operate machinery. oDon t do anything strenuous, such as heavy lifting or straining. oLimit tasks that require concentration. This includes reading, using a smartphone or computer, watching TV, and playing video games. oDon t return to sports or other activities that could result in another head injury. Follow-up care Follow up with your healthcare provider, or as directed. If imaging tests were done, they will be reviewed by a doctor. You will be told the results and any new findings that may affect your care. When to seek medical advice Call your healthcare provider right away if any of these occur: Pain doesn t get better or worsens New or increased swelling or bruising Fever of 100.4 F (38 C) or higher, or as directed by your provider Increased redness, warmth, drainage, or bleeding from the injured area Fluid drainage or bleeding from the nose or ears Any depression or bony abnormality in the injured area Persistent confusion or lethargy Bruising behind the ears or bruising around the eyes [id number] [employer]. [address] [place] [address], [place] [address]. All rights reserved. This information is not intended as a substitute for professional medical care. Always follow your healthcare professional's instructions. Follow Up Care 11/22/2023 23:57:40 With:LENO BRIGGS Address: [address] [place] [address] [facility] (1) When:Within 1 Week(s) Comments:Follow-up as needed.Tylenol for pain as needed.Return to the ED for any problems or concerns. [facility] Ricardakofi Silvestre 11-23-2023 Note Discharge Instructions Thank you for allowing [facility] to assist you with your healthcare needs. The following is important discharge information regarding your hospital visit. Diagnosis from Today's Visit Fall What to Do Next Instructions from Your Care Team No qualifying data available. Post Acute Orders No qualifying data available. You Need to Schedule the Following Appointments Follow Up with LENO BRIGGS When In 1 week Why: Follow-up as needed. Tylenol for pain as needed. Return to the ED for any problems or concerns. Where: [address] [place] [place] [address] [facility] (1) Allergies Bactrim codeine escitalopram oxybutynin sertraline traMADol Medications Please ask your primary doctor or pharmacist before taking any other medication not listed, including over the counter drugs, herbal medications, vitamins and or supplements as they may interact with your home medications. What How Much When Instructions Last Dose Unchanged acetaminophen-hydrocodone (acetaminophen-hydrocodone 325 mg-5 mg oral tablet) take 1 tablet by mouth twice a day if needed Unchanged albuterol (Albuterol (Eqv-ProAir HFA) 90 mcg/ inh inhalation aerosol) inhale 1 puff by mouth and INTO THE LUNGS every 4 hours if needed... (REFER TO PRESCRIPTION NOTES). Unchanged atorvastatin (atorvastatin 40 mg oral tablet) 1 tab(s) by mouth Once a day Unchanged citalopram (citalopram 20 mg oral tablet) take 1 tablet by mouth once daily Unchanged donepezil (donepezil 10 mg oral tablet) 1 tab(s) by mouth Daily at bedtime Unchanged fluconazole (fluconazole 150 mg oral tablet) take 1 tablet by mouth ONCE A WEEK Unchanged FLUoxetine (FLUoxetine 20 mg oral capsule) take 1 capsule by mouth once daily Unchanged furosemide (furosemide 20 mg oral tablet) Unchanged isosorbide mononitrate (isosorbide mononitrate 30 mg oral tablet, extended release) 1 tab(s) by mouth Once a day (in the morning) Unchanged losartan (losartan 50 mg oral tablet) take 1 tablet by mouth once daily Unchanged metFORMIN (MetFORMIN (Eqv-Glucophage XR) 500 mg oral tablet, EXTENDED RELEASE) take 1 tablet by mouth EVERY MORNING WITH BREAKFAST Unchanged nitrofurantoin (nitrofurantoin macrocrystals-monohydrate 100 mg oral capsule) take 1 capsule by mouth twice a day for 7 days with meals Unchanged pantoprazole (pantoprazole 40 mg oral enteric coated tablet) take 1 tablet by mouth twice a day Unchanged pioglitazone (pioglitazone 15 mg oral tablet) 1 tab(s) by mouth Every day Unchanged sertraline (sertraline 50 mg oral tablet) take 1 tablet by mouth once daily Please take this list to your next doctor s visit. Bring all medications you take, including over the counter medications, herbals and other supplements with you to your doctor s visit. Patients and families are reminded to discard old lists and to update any records with all medication providers or retail pharmacies. Education Materials Upper Extremity Contusion You have a contusion (bruise) of an upper extremity (arm, wrist, hand, or fingers). Symptoms include pain, swelling, and skin discoloration. No bones are broken. This injury may take from a few days to a few weeks to heal. During that time, the bruise may change from reddish in color, to purple-blue, to green-yellow, to yellow-brown. Home care Unless another medicine was prescribed, you can take acetaminophen, ibuprofen, or naproxen to control pain. (If you have chronic liver or kidney disease or ever had a stomach ulcer or gastrointestinal bleeding, talk with your doctor before using these medicines.) Elevate the injured area to reduce pain and swelling. As much as possible, sit or lie down with the injured area raised about the level of your heart. This is especially important during the first 48 hours. Ice the injured area to help reduce pain and swelling. Wrap a cold source (ice pack or ice cubes in a plastic bag) in a thin towel. Apply to the bruised area for 20 minutes every 1 to 2 hours the first day. Continue this 3 to 4 times a day until the pain and swelling goes away. If a sling was provided, you may remove it to shower or bathe. To prevent joint stiffness, do not wear it for more than 1 week. Follow-up care Follow up with your healthcare provide, or as advised. Call if you are not improving within the next 1 to 2 weeks. When to seek medical advice Call your healthcare provider right away if any of these occur: Increased pain or swelling Hand or fingers become cold, blue, numb or tingly Signs of infection: Warmth, drainage, or increased redness or pain around the injury Inability to move the injured body part Frequent bruising for unknown reasons [phone] [employer]. [address] [place] [address]. All rights reserved. This information is not intended as a substitute for professional medical care. Always follow your healthcare professional's instructions. Head Injury (Adult) You have a head injury. It does not appear serious at this time. But symptoms of a more serious problem, such as a mild brain injury (concussion) or bruising or bleeding in the brain, may appear later. For this reason, you or someone caring for you will need to watch for the symptoms listed below. Once you re home, also be sure to follow any care instructions you re given. Home care Watch for the following symptoms Seek emergency medical care if you have any of these symptoms over the next hours to days: Headache Nausea or vomiting Dizziness Sensitivity to light or noise Unusual sleepiness or grogginess Trouble falling asleep Personality changes Vision changes Memory loss Confusion Trouble walking or clumsiness Loss of consciousness (even for a short time) Inability to be awakened Stiff neck Weakness or numbness in any part of the body Seizures General care If you were prescribed medicines for pain, use them as directed. Note: Don t take other medicines for pain without talking to your provider first. To help reduce swelling and pain, apply a cold source to the injured area for up to 20 minutes at a time. Do this as often as directed. Use a cold pack or bag of ice wrapped in a thin towel. Never apply a cold source directly to the skin. If you have cuts or scrapes as a result of your head injury, care for them as directed. For the next 24 hours (or longer, if instructed): oDon t drink alcohol or use sedatives or other medicines that make you sleepy. oDon t drive or operate machinery. oDon t do anything strenuous, such as heavy lifting or straining. oLimit tasks that require concentration. This includes reading, using a smartphone or computer, watching TV, and playing video games. oDon t return to sports or other activities that could result in another head injury. Follow-up care Follow up with your healthcare provider, or as directed. If imaging tests were done, they will be reviewed by a doctor. You will be told the results and any new findings that may affect your care. When to seek medical advice Call your healthcare provider right away if any of these occur: Pain doesn t get better or worsens New or increased swelling or bruising Fever of 100.4 F (38 C) or higher, or as directed by your provider Increased redness, warmth, drainage, or bleeding from the injured area Fluid drainage or bleeding from the nose or ears Any depression or bony abnormality in the injured area Persistent confusion or lethargy Bruising behind the ears or bruising around the eyes [phone] [employer]. [address] [place] [address]. All rights reserved. This information is not intended as a substitute for professional medical care. Always follow your healthcare professional's instructions. Additional Information VACCINATE! IT SAVES LIVES! Members of the community who have not yet received the COVID-19 vaccine and would like to receive it can visit one of [facility] vaccine clinics. There are many vaccine clinic locations within the [facility]. For locations and available times, please visit [email or web address] It is important to note that some COVID mobile vaccine clinics are held outdoors and may be canceled in rainy or stormy conditions. To learn more about pediatric vaccinations (ages 5-11), we invite you to visit the [facility] webpage. [email or web address] To learn more about the COVID-19 vaccine, we invite you to visit the CDC website for a list of frequently asked questions. https://www.cdc.gov/coronavirus/2 019-ncov/vaccines/faq.html [facility] Patient Portal Access Instructions: Stay connected with your healthcare team and access your personal medical information anytime with the [email or web address] Patient Portal. If you would like a full copy of your medical records please contact the [facility] Medical Records Department Tuesday through Tuesday between 8a.m. and 4:30p.m. Please follow the directions below to access the portal: 1.Access the email account you provided upon registration to the [facility].2.Look for an invitation email from [facility].3.Open the email and access the invitation link: Accept Invitation to [email or web address].Fill in the required quintana to create your account. Sign into [email or web address] with your username and password that you created in the above steps to stay up to date. You can then view a summary of results, a summary of your visits, and the ability to download your summaries to your computer or send the information securely to a physician. Remember that your healthcare information is confidential, so carefully consider who you will allow to register on the [facility] Patient Portal for access to your information. You can also access the [email or web address] Patient Portal on the [employer]. Simply click on Health Records under Health Data and then click on the [facility] logo. HOW TO SAFELY DISPOSE OF PRESCRIPTION MEDICATIONS Please use one of the following methods to safely dispose of your unused medications. 1.Use a drug disposal kit: the drug disposal pouch allows you to safely discard your old and unused drugs. Ask your nurse to give you one when you are discharged.2.Visit a local take-back location: Many local pharmacies and police departments have programs that collect old and unwanted prescription drugs. Call your local pharmacy or go to http://MODLOFT.Virtual DBS/4F5Hk2k to find one close to you.3.Make use of household items: Use cat litter or old coffee grounds to dispose medications if other options are not available. Mix your drugs with these household products, seal them in an airtight container and throw it into the garbage. Call [facility]: [phone] to be sure your drugs can be disposed of in this way. Some medicines may require a different approach.4.Never flush your medications down the toilet. IF YOU HAVE BEEN PRESCRIBED AN OPIOIDS FOR PAIN If you have been prescribed an opioid (such as hydrocodone, oxycodone or morphine), it is critical to understand the possible side effects and risks of opioid pain medications. Even when taken as directed, opioids can have several side effects including: Tolerance, meaning you might need to take more of a medication for the same pain relief. Nausea, vomiting and/or constipation. Sleepiness, dizziness, dry mouth, confusion, depression or itching. Physical dependence, meaning you have withdrawal symptoms when a medication is stopped ? this can develop within a few days. KNOW YOUR RESPONSIBILITIES It is important to know exactly how much and how often to take the opioid pain medications you are prescribed. Never take opioids in higher amounts or more often than prescribed. Do not combine opioids with alcohol or other drugs that cause drowsiness, such as benzodiazepines, also known as benzos, including diazepam and alprazolam, muscle relaxants or sleep aids. Never sell or share prescription opioids. This is illegal. Store opioids in a secure place and out of reach of others (including children, family, friends and visitors). The last page(s) of this document has been signed and retained as a CHART COPY Signatures Patient Education Materials Upper Extremity Contusion Head Injury (Adult) Medication Leaflets My discharge plan and instructions have been reviewed and explained to me and I,ROBBIN SINGH understand my current condition and have read and understand these discharge instructions. I have received a written copy of the plan/instructions. If I have questions, I am aware that I should contact my doctor. Patient/Scientific Director Signature: Date/Time: Relationship to Patient: ____ Witness Name/Signature: Date/Time: [facility] 11-23-2023 Note ORIGINAL EXAMINATION: CT OF THE HEAD WITHOUT CONTRAST 11/23/2023 1:08 am TECHNIQUE: CT of the head was performed without the administration of intravenous contrast. Automated exposure control, iterative reconstruction, and/or weight based adjustment of the mA/kV was utilized to reduce the radiation dose to as low as reasonably achievable. COMPARISON: None. HISTORY: ORDERING SYSTEM PROVIDED HISTORY: Reason for Exam: INJURY FINDINGS: Motion artifact. There is no acute intracranial hemorrhage, mass effect, or abnormal extra-axial fluid collection. There is no CT evidence of acute infarct. The density in the larger dural venous sinuses is grossly normal. Patchy parenchymal hypodensities in the cerebral white matter are nonspecific but statistically most consistent with moderate chronic microvascular angiopathy. Atherosclerotic calcifications are present in the cavernous carotid arteries bilaterally. There is proportionate enlargement of the ventricular system and cortical sulci compatible with parenchymal volume loss. No acute bony findings. Grossly clear mastoid air cells. There is mucosal thickening/disease of the right sphenoid sinus, right maxillary sinus, and ethmoidal cells. Bilateral lens replacements. IMPRESSION: Motion artifact. No acute intracranial abnormality identified. I have personally reviewed the images of this examination, and agree with the resident's findings and interpretation. Interpreted by: Brad May MD Preliminary Report By: Shiv Muñoz Electronically signed By Brad May MD Dictated Date: 11/23/2023 1:09:40 AM Prelim Date: 11/23/2023 1:13:01 AM Sign Date: 11/23/2023 1:21:40 AM Ordering Provider: [facility] 11-23-2023 Note ORIGINAL EXAMINATION: TWO XRAY VIEWS OF THE RIGHT SHOULDER11/23/2023 1:05 am COMPARISON: None HISTORY: ORDERING SYSTEM PROVIDED HISTORY: Reason for Exam: pain FINDINGS: No acute fracture or dislocation is evident. Moderate degenerative changes of the glenohumeral joint and acromioclavicular joint. No gross soft tissue abnormality. No unexpected radiopaque foreign body. IMPRESSION: No acute osseous injury identified. Moderate osteoarthrosis. I have personally reviewed the images of this examination, and agree with the resident's findings and interpretation. Interpreted by: Brad May MD Preliminary Report By: Shiv Muñoz Electronically signed By Brad May MD Dictated Date: 11/23/2023 1:07:07 AM Prelim Date: 11/23/2023 1:09:31 AM Sign Date: 11/23/2023 1:23:20 AM Ordering Provider: [facility] 11-17-2023 Note HNO ID: [id number] Author: CYNTHIA SHIRLEY LPN Service: ? Author Type: LICENSED NURSE Type: Progress Notes Filed: 11/17/2023 07:18 Note Text: Scan on 11/16/2023 4:44 PM by Provider, External, PA-C: Consultation - GI [facility] 11-08-2023 Note HNO ID: [id number] Author: Melissa Parra LPN Service: ? Author Type: LICENSED NURSE Type: Progress Notes Filed: 11/08/2023 3:57 PM Note Text: Scan on 11/08/2023 1:21 PM by Provider, External, PA-C: Echo Scan on 11/06/2023 8:17 PM by Provider, External PA-C Scan on 11/06/2023 4:45 PM by Provider External PA-C: Consultation - Emergency Medicine Scan on 11/08/2023 3:12 PM by Provider, External PA-C: Consultation - ID [facility] 11-08-2023 Note HNO ID: [id number] Author: Melissa Parra LPN Service: ? Author Type: LICENSED NURSE Type: Progress Notes Filed: 11/08/2023 1:48 PM Note Text: Scan on 11/06/2023 3:21 PM by Provider, External PA-C: X-ray Scan on 11/06/2023 4:45 PM by Provider External PA-C: Consultation - Emergency Medicine Scan on 11/06/2023 8:17 PM by Provider, External, PA-C [facility] 09-20-2023 Miscellaneous Notes PA approved faxing approval to [facility] at [phone] Daughter was notified approved not sure on cost of drug with insurance covering will need to call pharmacy to get info [place] [facility] Reviewed medication and rx was sent correctly 2 BID for 90 day supply is 360 tab, did submit a PA to see if cost can be lowered for 90 day supply [place] [facility] documented in this encounter [facility] 09-15-2023 Telephone encounter Note Left message notifying and to call back with which way they'd like to do the visit. [facility] 09-15-2023 Miscellaneous Notes Left message notifying and to call back with which way they'd like to do the visit. OK for virtual visit although we will not be able to facilitate memory testing over MyChart or phone. If they are wanting memory testing then visit will need to be in the office. Name of caller: Mariela Contact phone number: [phone] Relationship to Patient: Chandan Provider: Shantal Serrano APRN, CNP Practice: [facility] Chief Complaint/Reason for Call: DaughterMariela called asking if the 09-27 office visit [...] their call: Yes documented in this encounter [facility] 09-15-2023 Telephone encounter Note OK for virtual visit although we will not be able to facilitate memory testing over MyChart or phone. If they are wanting memory testing then visit will need to be in the office. [facility] 09-14-2023 Telephone encounter Note Name of caller: Mariela Contact phone number: [phone] Relationship to Patient: Daughter Provider: Shantal Serrano APRN, CNP Practice: Senior Services Chief Complaint/Reason for Call: DaughterMariela called asking if the 09-27 office visit appt. May be changed to a Video. Mariela stated that patient has several appointments on 09-26 and that the next day appt., 09-27 may be too much. Pt easily gets tired. Please advise. Best time of day caller can be reached: any Patient advised that office/PCP has 24-48 business hours to return their call: Yes [facility] 09-02-2023 Miscellaneous Notes Daughter was notified Brandy [...] stable or not. documented in this encounter [facility] 08-31-2023 Note HNO ID: [id number] Author: Leno Briggs MD Service: ? Author [...] with myelopathy 07/29/2015 Chronic diastolic heart failure ([facility]), mild. 08/27/[address] Bravo. Chronic pain of both knees 11/16/2019 CKD (chronic kidney disease) stage 3, GFR 30-59 ml/min ([facility]) 01/01/2019 COPD with chronic bronchitis ([facility]) 02/15/2017 Dr. Brito Current use of proton pump inhibitor 11/25/2016 Mg checked 11/2017 DDD (degenerative disc disease), cervical 07/29/2015 DDD (degenerative disc disease), lumbar 05/08/2013 Diabetes mellitus type 2 in obese ([facility]) 06/2015 a1c 6.5% Diabetic eye exam ([facility]) 03/15/2017 Last done: 10/24/2019 No Retinopathy [...] TACO (obstructive sleep apnea) [facility] [phone] Pain due to total left knee replacement [...] disease, without long-term current use of insulin ([facility]) 06/06/2017 Urge incontinence 11/21/2012 PAST SURGICAL HISTORY PAST SURGICAL HISTORY Procedure Laterality Date CHOLECYSTECTOMY HX 10/30/1997 COLONOSCOP W/ OR W/O [facility] SPEC 11/29/12 Colonoscopy repeat 3 years COLONOSCOP W/ OR W/O [facility] SPEC 01/28/16 Colonoscopy with mac COLONOSCOPY AND POLYPECTOMY ~2007 2 polyps COLONOSCOPY AND POLYPECTOMY ~2001 7 polyps COLONOSCOPY AND POLYPECTOMY 11/30/2011 CYSTOSCOPY 09/21/12 EGD 10/17/2011 Dr Negrete in [place] EGD W/O OR W/BRUSH/WASH 05/16/2014 EGD EGD [...] Mother Lipids Mother HIGH CHOLESTEROL Heart Father CT Ischemic Heart Disease Father STROKE other (diabetic) [...] completed and revi (more content not included)... [facility] 08-23-2023 Miscellaneous Notes The following approved [...] Nel Cope LPN. documented in this encounter [facility] 08-16-2023 Telephone encounter Note Preferred contact number: [phone] Reason for Visit: Caller states she would like to cancel appointment due to transportation and would like a call to schedule. Please advise. Thank you Urgency of Appointment: na Medications in need of refill: na [facility] 08-16-2023 Miscellaneous Notes Preferred contact number: [phone] Reason for Visit: Caller states she would like to cancel appointment due to transportation and would like a call to schedule. Please advise. Thank you Urgency of Appointment: na Medications in need of refill: na documented in this encounter [facility] 07-05-2023 Telephone encounter Note Daughter wanted [...] prior to picking up the medication: N/A [facility] 07-05-2023 Miscellaneous Notes Daughter wanted to [...] the medication: N/A documented in this encounter [facility] 07-05-2023 Miscellaneous Notes Spoke with pt's daughter and information below given. Shelby Rogel LPN Left message for pt's daughter to contact office. Cynthia Shirley LPN Let family know the Aricept (donepezil) is prescribed by patient's restaurant host/hostess and will need to contact that office for refill.. The following approved medication requests have been transmitted electronically. Requested Prescriptions Signed Prescriptions Disp Refills sertraline (ZOLOFT) 50 mg tablet 90 tablet 1 Sig: TAKE 1 TABLET BY MOUTH ONCE DAILY Authorizing Provider: LENO BRIGGS losartan (COZAAR) 50 [...] Nel Cope LPN documented in this encounter [facility] 06-21-2023 Note HNO ID: [id number] Author: Leno Briggs MD Service: ? Author [...] life is less. She has been taking [place] 5/325 one twice a day since 04/2018 and up till now was doing well with this. Her daughter, (Mariela) who is her with her today, notes that it no longer controls the pain for as long of a time as it used to. She requires extra strength tylenol in between doses and even then it's not as well as when she takes a [place]. Patient has not been seen for routine since 10/2022. She is now seeing a restaurant host/hostess for her dementia. She was recently found [...] 05/08/2013 Diabetes mellitus type 2 in obese ([facility]) 06/2015 a1c 6.5% Diabetic eye exam ([facility]) 03/15/2017 Last done: 10/24/2019 No Retinopathy [...] TACO (obstructive sleep apnea) [facility] [phone] Pain due to total left knee replacement ([facility]) 06/08/2018 Personal history of colonic polyps 01/23/2016 Primary insomnia 03/16/2017 [facility] 06/26/2018 recommended Klonopin every other day for a week and then just as needed. Primary osteoarthritis of right knee 07/13/2016 Pulmonary hypertension (HCC) 05/19/2022 Seeing pulm and cardio Pulmonary nodules 03/03/2013 Incidental non-calcified nodules 10/09/2012. Repeat CT due 06/2013 Recurrent major depressive disorder, in full remission ([facility]) 08/17/2012 Rheumatoid arthritis(714.0) Spondylosis of lumbar region without myelopathy or radiculopathy 05/28/2015 Status post total left knee replacement 06/08/2018 Stress incontinence 11/21/[address] Armas. Thyroid nodule 11/15/2018 Stable on 2017 Type 2 diabetes mellitus with stage 3 chronic kidney disease, without long-term current use of insulin ([facility]) 06/06/2017 Urge incontinence 11/21/2012 Previous Surgical [...] CYSTOSCOPY 09/21/12 EGD 10/17/2011 Dr Negrete in [place] ESOPHAGOGASTRODUODENOSCOPY TRANSORAL DIAGNOSTIC 05/16/2014 EGD ESOPHAGOGASTRODUODENOSCOPY TRANSORAL DIAGNOSTIC 09/12/14 EGD ESOPHAGOGASTRODUODENOSCOPY TRANSORAL DIAGNOSTIC 01/06/2017 EGD ESOPHAGOGASTRODUODENOSCOPY TRANSORAL D (more content not included)... [facility] 06-21-2023 History of Present illness Narrative [...] life is less. She has been taking [place] 5/325 one twice a day since 04/2018 and up till now was doing well with this. Her daughter, (Mariela) who is her with her today, notes that it no longer controls the pain for as long of a time as it used to. She requires extra strength tylenol in between doses and even then it's not as well as when she takes a [place]. Patient has not been seen for routine since 10/2022. She is now seeing a restaurant host/hostess for her dementia. She was recently found [...] kidney disease) stage 3, GFR 30-59 ml/min ([facility]) 01/01/2019 COPD with chronic bronchitis ([facility]) 02/15/2017 Dr. Brito Current use of proton pump inhibitor 11/25/2016 Mg checked 11/2017 DDD (degenerative disc disease), cervical 07/29/2015 DDD (degenerative disc disease), lumbar 05/08/2013 Diabetes mellitus type 2 in obese ([facility]) 06/2015 a1c 6.5% Diabetic eye exam ([facility]) 03/15/2017 Last done: 10/24/2019 No Retinopathy [...] TACO (obstructive sleep apnea) [facility] [employer] [phone] Pain due to total left knee replacement [...] Recurrent major depressive disorder, in full remission ([facility]) 08/17/2012 Rheumatoid arthritis(714.0) Spondylosis of lumbar region without myelopathy or radiculopathy 05/28/2015 Status post total left knee replacement 06/08/2018 Stress incontinence 11/21/[address] Armas. Thyroid nodule 11/15/2018 Stable on US 2017 Type 2 diabetes mellitus with stage 3 chronic kidney disease, without long-term current use of insulin ([facility]) 06/06/2017 Urge incontinence 11/21/2012 Previous Surgical [...] CYSTOSCOPY 09/21/12 EGD 10/17/2011 Dr Negrete in [place] ESOPHAGOGASTRODUODENOSCOPY TRANSORAL DIAGNOSTIC 05/16/2014 EGD ESOPHAGOGASTRODUODENOSCOPY TRANSORAL DIAGNOSTIC 09/12/14 EGD ESOPHAGOGASTRODUODENOSCOPY TRANSORAL DIAGNOSTIC 01/06/2017 EGD ESOPHAGOGASTRODUODENOSCOPY TRANSORAL DIAGNOSTIC 07/21/2020 EGD REMOVE CATARACT, INSERT LENS, INTRACAPSUL Bilateral 2008 Family History FAMILY HISTORY Problem Relation Age of Onset Hypertension Mother Heart Mother Lipids Mother HIGH CHOLESTEROL Heart Father CT Ischemic Heart Disease Father STROKE other (diabetic) Father Diabetes Sister Diabetes Sister Breast Cancer Sister Patient Allergies ALLERGIES Allergen Reactions Bactrim [Sulfametho* Itching Codeine Mental Status Change Garlic Oil Other: See Comments Lexapro [Escitalopr* Other: See Comments rapid heart rate Oxybutynin Other: See Comments suggerst by Ichiba to stop since it can add to [...] DX E11.22 Insulin No) Walker (ULTRA-LIGHT ROLLATOR) [facility] One Rolator with seat. Dx: J44.9, M54.9, [...] which included preparing to see the patient, [id number] patient care, completing clinical documentation, performing a medically appropriate examination, counseling and educating the patient/family/caregiver and ordering medications, tests, or procedures. Leno Briggs MD documented in this encounter [facility] 06-20-2023 Miscellaneous Notes Left message for pt's daughter that Stephani did review pt's chart and advised that pt does need to see Dr Briggs instead of her tomorrow. Advised pt is scheduled at 2:20 tomorrow 06/[address] Briggs. Daughter had called earlier to reschedule appointment that pt had canceled. Cynthia Shirley LPN documented in this encounter [facility] 05-30-2023 History of Present illness Narrative COLORECTAL SURGERY OFFICE VISIT PATIENT NAME: Robbin Singh : 1940 TODAY'S DATE: 05/30/2023 Chief Complaint Patient presents with Results [facility] # [phone](Mariela, daughter)Discuss results of colonoscopy done 05/25/23 Patient [...] stated that they are currently in the state [facility]. If the patient is a minor, permission [...] Patient has dementia and is daughter is yoga teacher. She noticed feces inside her vagina. She [...] 05/25/2023 Performed by Samantha Nava MD at [address] ENDOSCOPY Current Outpatient Medications on File [...] Take 600 mg by mouth daily. HYDROcodone-acetaminophen ([place]) 5-325 MG tablet Take 1 tablet by [...] tablet Take 1 tablet by mouth daily. Platte-3 Fatty Acids (FISH OIL OMEGA-3 PO) Take [...] judgement RECTUM: deferred Exam chaperoned by female safety assistant. IMAGING: Per chart rveiew She underwent a CT scan at [facility] on 12/31/2022 with findings of mid sigmoid [...] was performed when available. Samantha Nava MD [facility] Colorectal Surgery [address], [address] [place], [place] [address] p [phone] f [phone] documented in this encounter [facility] 05-25-2023 Note Patient: Robbin niño Procedure Summary Date: 05/25/23 Room / Location: [facility] ENDO SEC 1 / ARCH Gastroenterology [...] once all PACU criteria has been met. [facility] 05-25-2023 Note Patient: Robbin niño Procedure Summary Date: 05/25/23 Room / Location: [facility] ENDO SEC 1 / ARCH Gastroenterology [...] opportunity for questions and acknowledgement of understanding. [facility] 05-25-2023 Note Endoscopy Center- [facility] Patient Name: Robbin Singh Procedure Date: 05/25/2023 10:43 AM Gender: Female Date of : 1940 Age: 82 Admit Type: Outpatient Note Status: Finalized Endoscopist: Samantha Nava MD, [id number] Procedure: Colonoscopy Indications: Follow-up of diverticulitis, Colovaginal [...] immediate complications. Procedure Code(s): --- Professional --- 36025, Colonoscopy, flexible; with removal of tumor(s), polyp(s), or other lesion(s) by snare technique --- Technical --- 40884, Colonoscopy, flexible; with removal of tumor(s), polyp(s), or other lesion(s) by snare technique CPT copyright 2021 [employer]. All rights reserved. The codes documented in this report are preliminary and upon support assistant review may be revised to meet current compliance requirements. Attending Participation: I personally performed the entire procedure. Samantha Nava MD 05/25/2023 11:25:44 AM This report has been signed electronically. Number of Addenda: 0 Note Initiated On: 05/25/2023 10:43 AM [facility] 05-25-2023 Note Formatting of this n ote might be different from the original. [facility] Name: Robbin Singh Procedure Date: 05/25/2023 10:43 AM Gender: Female Date of : 1940 Age: 82 Admit Type: Outpatient Note Status: Finalized Endoscopist: Samantha Nava MD, [id number] Procedure: Colonoscopy Indications: Follow-up of diverticulitis, Colovaginal [...] immediate complications. Procedure Code(s): --- Professional --- 48772, Colonoscopy, flexible; with removal of tumor(s), polyp(s), or other lesion(s) by snare technique --- Technical --- 07249, Colonoscopy, flexible; with removal of tumor(s), polyp(s), or other lesion(s) by snare technique CPT copyright 2021 [employer]. All rights reserved. The codes documented in this report are preliminary and upon support assistant review may be revised to meet current compliance requirements. Attending Participation: I personally performed the entire procedure. Samantha Nava MD 05/25/2023 11:25:44 AM This report has been signed electronically. Number of Addenda: 0 Note Initiated On: 05/25/2023 10:[address] [facility] [employer] 05-25-2023 Note Formatting of this n ote might be different from the original. [facility] Patient Name: Robbin Singh Procedure Date: 05/25/2023 10:43 AM Gender: Female Date of : 1940 Age: 82 Admit Type: Outpatient Note Status: Finalized Endoscopist: Samantha Nava MD, [id number] Procedure: Colonoscopy Indications: Follow-up of diverticulitis, Colovaginal [...] in 5 years for surveillance. Referring MD: Saamntha Nava MD, Samantha Nava Medicines: Monitored Anesthesia [...] immediate complications. Procedure Code(s): --- Professional --- 87317, Colonoscopy, flexible; with removal of tumor(s), polyp(s), or other lesion(s) by snare technique --- Technical --- 31620, Colonoscopy, flexible; with removal of tumor(s), polyp(s), or other lesion(s) by snare technique CPT copyright 2022 [employer]. All rights reserved. The codes documented in this report are preliminary and upon support assistant review may be revised to meet current compliance requirements. Attending Participation: I personally performed the entire procedure. Samantha Nava MD 05/25/2023 11:25:44 AM This report has been signed electronically. Number of Addenda: 0 Note Initiated On: 05/25/2023 10:43 AM [facility] 05-25-2023 Miscellaneous Notes [facility] Patient Name: Robbin Singh Procedure Date: 05/25/2023 10:43 AM Gender: Female Date of : 1940 Age: 82 Admit Type: Outpatient Note Status: Finalized Endoscopist: Samantha Nava MD, [id number] Procedure: Colonoscopy Indications: Follow-up of diverticulitis, Colovaginal [...] immediate complications. Procedure Code(s): --- Professional --- 44905, Colonoscopy, flexible; with removal of tumor(s), polyp(s), or other lesion(s) by snare technique --- Technical --- 37292, Colonoscopy, flexible; with removal of tumor(s), polyp(s), or other lesion(s) by snare technique CPT copyright 2021 [employer]. All rights reserved. The codes documented in this report are preliminary and upon support assistant review may be revised to meet current compliance requirements. Attending Participation: I personally performed the entire procedure. Samantha Nava MD 05/25/2023 11:25:44 AM This report has been signed electronically. Number of Addenda: 0 Note Initiated On: 05/25/2023 10:43 AM documented in this encounter [facility] 05-25-2023 Note Endoscopy History an d [...] (NS) flush 10 mL, 10 mL, IntraVENous, PRNSamantha MD sodium chloride 0.9% (NS) flush 10 [...] mg by mouth daily. Past Week HYDROcodone-acetaminophen ([place]) 5-325 MG tablet Take 1 tablet by [...] Take 1 tablet by mouth daily. 05/24/2023 Platte-3 Fatty Acids (FISH OIL OMEGA-3 PO) Take [...] none HEMATOLOGIC/LYMPHATIC: N (more content not included)... [facility] 05-25-2023 Note Patient: Robbin niño Procedure Information Date/Time: 05/25/23 0900 Procedure: COLONOSCOPY Location: [facility] ENDO SEC 1 / ARCH Gastroenterology Providers: [...] found for this or any previous visit. [facility] 05-25-2023 History and physical note Endoscopy [...] mg by mouth daily. Past Week HYDROcodone-acetaminophen ([place]) 5-325 MG tablet Take 1 tablet by [...] Take 1 tablet by mouth daily. 05/24/2023 Platte-3 Fatty Acids (FISH OIL OMEGA-3 PO) Take [...] understanding and willingness to proceed with plan. [employer] Work Phone: 05-25-2023 History and physical note Endoscopy [...] mg by mouth daily. Past Week HYDROcodone-acetaminophen ([place]) 5-325 MG tablet Take 1 tablet by [...] Take 1 tablet by mouth daily. 05/24/2023 Platte-3 Fatty Acids (FISH OIL OMEGA-3 PO) Take [...] proceed with plan. documented in this encounter [facility] 05-17-2023 History of Present illness Narrative [...] Diet Healthy Nutrition for Older Adults - [facility] Injury Prevention/Home Safety [facility] Home Safety Checklist Hearing/Vision Hearing Loss and Older Adults Medications Medication Safety/Dispensers Sleep Getting a Good Night's Sleep ([facility]) Sleep Hygiene Day/Night Reversal Advanced Directives Healthcare Power of Theater Company Producer Living Will Recommend Financial Power of Theater Company Producer Elder Law Theater Company Producer List [facility] Advanced Directives Information Guide Personal Care Personal Care Tips Bathing Tips Dressing Tips Images from the original note were not included. [facility] [address] [address] Dept: [phone] Dept Loc: [phone] Visit type: [facility] Family Summary Conference Reason for [...] through following means: Alzheimer's Association support and bench worker helper Reviewed advanced care plan. Health Care Power of Theater Company Producer, Financial Power of Theater Company Producer, and Living Will Educational information and handouts [...] 03/2023 for memory loss x 1 year, [place] 19 (MIS 2), CDT 5, PHQ 1, [...] Take 600 mg by mouth daily. HYDROcodone-acetaminophen ([place]) 5-325 MG tablet Take 1 tablet by [...] tablet Take 1 tablet by mouth daily. Platte-3 Fatty Acids (FISH OIL OMEGA-3 PO) Take [...] Diagnosis Date COPD (chronic obstructive pulmonary disease) ([facility]) Depression Pulmonary hypertension (HCC) Social History Tobacco Use Smoking status: Former Packs/day: 2.00 Types: Cigarettes Quit date: 1996 Years since quittin.5 Smokeless tobacco: Not on file Substance Use Topics Alcohol use: Never Past Surgical History: Procedure Laterality Date COLONOSCOPY N/A 05/25/2023 Performed by Samantha Nava MD at [facility] ENDOSCOPY Family History Problem [...] >20.0 05/04/2023 Lab Results Component Value Date [id number] 05/04/2023 No results found for: RPR Imaging: head CT reviewed Testing: I reviewed the Preston CognitiveAssessment from the initial assessment with the [...] for the patient documented in this encounter [facility] 05-17-2023 Instructions FILEMON Shepherd CNP - 05/17/2023 [...] and social activity - [facility] [place]. Recommend routines, schedules, and organization. Recommend getting [...] for virtual visit. documented in this encounter [facility] 04-11-2023 Miscellaneous Notes TC to patients daughter with no answer. Left VM to return call to office to receive update. JUSTINE Gupta Please reach out to patient's daughter. Let her know we refilled Robbin's [place], however, she No Showed to her appt [...] of last office visit in primary care: [facility] 12/23/22 No appointment scheduled Last 2 Encounter Wt Readings: Date: Wt: 03/18/2023 127.5 kg (281 lb) 02/21/2023 129.7 kg (286 lb) Please advise. Thank you. JUSTINE Gupta documented in this encounter [facility] 04-11-2023 History of Present illness Narrative COLORECTAL [...] Patient has dementia and is daughter is yoga teacher. She noticed feces inside her vagina. She [...] Take 600 mg by mouth daily. HYDROcodone-acetaminophen ([place]) 5-325 MG tablet Take 1 tablet by [...] tablet Take 1 tablet by mouth daily. Platte-3 Fatty Acids (FISH OIL OMEGA-3 PO) Take [...] judgement RECTUM: deferred Exam chaperoned by female safety assistant. IMAGING: Per chart rveiew She underwent a CT scan at [facility] on 12/31/2022 with findings of mid sigmoid [...] was performed when available. Samantha Nava MD [facility] Colorectal Surgery [address], [address] [place] [id number] p [phone] f [phone] documented in this encounter [facility] 04-05-2023 Note Mrs. Singh was see [...] Return in 4-6 weeks for summary visit. [facility] 04-05-2023 History of Present illness Narrative Images from the original note were not included. [facility] [address] [address] Dept: [phone] Dept Loc: [phone] Visit type: [facility] Initial Assessment Visit Date: 04/11/2023 [...] 82 y.o. female who presents to the [facility] for a comprehensive geriatric assessment. The patient is new to me. Referred for dementia, having nightmares, on Donepezil at , previously diagnosed with dementia. Family helping with pt's care. PMH: anxiety, depression, OA multiple joints, leg edema, CHF, CKD 3, COPD, DDD cervical and lumbar, DM2, HTN, [place], frequent falls, interstitial cystitis, urinary incontinence, neuropathy, [...] Hearing Screen: HHIE-S: 38/40 Able to identify : yes Current events: Current President? Biden Why are we wearing masks? CAROLYN Reviewed progress notes completed by LAURA (ARCELIA)and social work. Allergies Allergen Reactions Iodinated Contrast [...] Take 600 mg by mouth daily. HYDROcodone-acetaminophen ([place]) 5-325 MG tablet Take 1 tablet by [...] tablet Take 1 tablet by mouth daily. Platte-3 Fatty Acids (FISH OIL OMEGA-3 PO) Take by mouth daily. pioglitazone (Actos) 15 MG tablet Take 15 mg by mouth daily. sertraline (Zoloft) 50 MG tablet Take 50 mg by mouth daily. No current facility-administered medications for this visit. History reviewed. No pertinent past medical history. Social History Tobacco Use Smoking status: Former Packs/day: 2.00 Types: Cigarettes Quit date: 1996 Years since quittin. Smokeless tobacco: Not on file Substance Use [...] Normocephalic. Comments: No glasses. No hearing aids. [place] at times. Right Ear: External ear normal. [...] found for: FOLATE No results found for: [id number] No results found for: RPR Testing: The following tests were performed at today's visit and scanned in to the chart: MoCA score: 19, MIS score: 2 Clock drawing score: 5 PHQ-9 score: 1 SIN score: not done I independently reviewed the Preston Cognitive Assessment from 04/11/2023. Test scanned in [...] Services/Geriatrics Social History Present at visit: patient, chandan Sierra Marital status: Children: 2 children (both local) Living arrangement: lives in home with Mariela medina Household safety problems: no falls in past year Concerning Behaviors: None Wandering potential: No Pets: Yes, 2 cats, daughter cares for cats Guns in the home: None Elder abuse: patient talks to scaidaliaers on the phone, daughter tries to intervene to stop her from giving out info Alcohol/Tobacco/Marijuana/Drug Use History: no service: Spouse was a [place] (did not serve during war) Highest level of education: HS 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, 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 Activities: nephew and great granddaughter come to visit once per week, watches tv Exercise: none Finances: close to $2000 in income Healthcare Power of Theater Company Producer: No Financial Power of Theater Company Producer: No Living Will: No Guardian: No Code Status: Full Code Primary Caregiver: chandan Sierra Current care plan/supervision: can leave her for short time periods, chandan Sierra is with patient most of the time [...] Diet Healthy Nutrition for Older Adults - [facility] Injury Prevention/Home Safety [facility] Home Safety Checklist Hearing/Vision Hearing Loss and Older Adults Medications Medication Safety/Dispensers Sleep Getting a Good Night's Sleep ([facility]) Sleep Hygiene Day/Night Reversal Advanced Directives Healthcare Power of Theater Company Producer Living Will Recommend Financial Power of Theater Company Producer Elder Law Theater Company Producer List [facility] Advanced Directives Information Guide Personal Care Personal Care Tips Bathing Tips Dressing Tips documented in this encounter [facility] 04-05-2023 Instructions FILEMON Shepherd CNP - 04/05/2023 2:45 PM EDT Mrs. Singh [...] for summary visit. documented in this encounter [facility] 04-01-2023 Note HNO ID: [id number] Author: Leno Briggs MD Service: ? Author Type: Physician Type: Progress Notes Filed: 04/04/2023 1:02 PM Note Text: Appt cancelled since patient actually needed seen in office for a routine. [facility] 04-01-2023 History of Present illness Narrative Appt cancelled since patient actually needed seen in office for a routine. documented in this encounter [facility] 03-16-2023 Miscellaneous Notes Patient phones requesting refills as follows: Requested Prescriptions Pending Prescriptions Disp Refills metFORMIN ER (GLUCOPHAGE XR) 500 mg 24 hr tablet 180 tablet 1 Sig: Take 2 tablets by mouth daily with dinner. TAVO 12/23/2022 NOV 04/01/2023 Please review and advise. Atiya Deluna LPN documented in this encounter [facility] 03-11-2023 Miscellaneous Notes Faxed. Antionette Coleman MA Order printed and signed and ready to fax Ok to refer? Cristina Garcia Ma documented in this encounter [facility] 03-09-2023 Miscellaneous Notes The following approved medication [...] Shelby Rogel LPN documented in this encounter [facility] 03-09-2023 Miscellaneous Notes The following approved medication [...] sent to [facility]. Pharm updated in [facility]. Cyntiha Shirley LPN LM for patient to contact office [...] would help her sleep. Contact patient at [phone]. Joanne Reyes documented in this encounter [facility] 02-21-2023 Note HNO ID: [id number] Author: Radha Baldwin APRN.AIRCRAFT ENGINEER Service: ? Author Type: Nurse Practitioner Type: Progress Notes Filed: 02/22/2023 12:47 PM Note Text: [facility] ([facility]) [address] [facility] [address] OUTPATIENT VISIT February 21, 2023 2:00 PM [...] kidney disease) stage 3, GFR 30-59 ml/min ([facility]) 01/01/2019 COPD with chronic bronchitis ([facility]) 02/15/2017 Dr. Brito Current use of proton pump inhibitor 11/25/2016 Mg checked 11/2017 DDD (degenerative disc disease), cervical 07/29/2015 DDD (degenerative disc disease), lumbar 05/08/2013 Diabetes mellitus type 2 in obese ([facility]) 06/2015 a1c 6.5% Diabetic eye exam ([facility]) 03/15/2017 Last done: 10/24/2019 No Retinopathy [...] TACO (obstructive sleep apnea) D[facility] [employer] [phone] Pain due to total left knee replacement ([facility]) 06/08/2018 Personal history of colonic polyps 01/23/2016 Primary insomnia 03/16/2017 Brain [place] 06/26/2018 recommended Klonopin every other day for a week and then just as needed. Primary osteoarthritis of right knee 07/13/2016 Pulmonary hypertension ([facility]) 05/19/2022 Seeing pulm and cardio Pulmonary nodules 03/03/2013 Incidental non-calcified nodules 10/09/2012. Repeat CT due 06/2013 Recurrent major depressive disorder, in full remission ([facility]) 08/17/2012 Rheumatoid arthritis(714.0) Spondylosis of lumbar [...] CYSTOSCOPY 09/21/12 EGD 10/17/2011 Dr Negrete in [place] ESOPHAGOGASTRODUODENOSCOPY TRANSORAL DIAGNOS (more content not included)... [facility] 02-18-2023 Instructions Lauren Gruber RN - [...] If you do not have a responsible assembly line driver (family member or friend) with you [...] at your local pharmacy or drugstore pharmacy. 10/2019 Bowel Preparation Instructions for: Golytely, Nulytely, [...] exam. 2 10/2019 documented in this encounter [facility] 02-14-2023 Miscellaneous Notes Patient has been identified [...] to [facility] documented in this encounter [facility] 02-14-2023 Miscellaneous Notes The following approved medication [...] Last refill; 01/2023 documented in this encounter [facility] 02-11-2023 Miscellaneous Notes This patient gave consent [...] seven days of my reply. See the Phylogy message reply for my assessment and plan. I spent a total of 5 minutes reviewing the patient's prior medical records and current request for medical advice, prescribing medications or ordering tests (if applicable), replying to the patient, and documenting the encounter. Eufemia Chapa APRN.CARINE documented in this encounter [facility] 02-10-2023 Miscellaneous Notes TAVO 12/23/22 with RR Appointment scheduled 03/11/23 with JAX Please advise. Thank you. MODESTO Gupta documented in this encounter [facility] 02-09-2023 History and physical note COLORECTAL SURGERY NEW VIRTUAL VISIT I have communicated my name and active licensure. The patient's identity and physical location were verified at the time of this visit. Either the patient or their legal canvas products sales representative has been informed of the [...] Patient has dementia and is daughter is yoga teacher. She noticed feces inside her vagina. She [...] thinks this is mostly incontinence of urine. Tester Regulator History PAST MEDICAL HISTORY Diagnosis Date Anxiety [...] kidney disease) stage 3, GFR 30-59 ml/min ([facility]) 01/01/2019 COPD with chronic bronchitis ([facility]) 02/15/2017 Dr. Brito Current use of proton pump inhibitor 11/25/2016 Mg checked 11/2017 DDD (degenerative disc disease), cervical 07/29/2015 DDD (degenerative disc disease), lumbar 05/08/2013 Diabetes mellitus type 2 in obese ([facility]) 06/2015 a1c 6.5% Diabetic eye exam ([facility]) 03/15/2017 Last done: 10/24/2019 No Retinopathy [...] TACO (obstructive sleep apnea) DME [employer] [phone] Pain due to total left knee replacement [...] Recurrent major depressive disorder, in full remission ([facility]) 08/17/2012 Rheumatoid arthritis(714.0) Spondylosis of lumbar region without myelopathy or radiculopathy 05/28/2015 Status post total left knee replacement 06/08/2018 Stress incontinence 11/21/[address] Armas. Thyroid nodule 11/15/2018 Stable on 2017 Type 2 diabetes mellitus with stage 3 chronic kidney disease, without long-term current use of insulin ([facility]) 06/06/2017 Urge incontinence 11/21/2012 PAST SURGICAL [...] CYSTOSCOPY 09/21/12 EGD 10/17/2011 Dr Negrete in [place] ESOPHAGOGASTRODUODENOSCOPY TRANSORAL DIAGNOSTIC 05/16/2014 EGD ESOPHAGOGASTRODUODENOSCOPY TRANSORAL DIAGNOSTIC 09/12/14 EGD ESOPHAGOGASTRODUODENOSCOPY TRANSORAL DIAGNOSTIC 01/06/2017 EGD ESOPHAGOGASTRODUODENOSCOPY TRANSORAL DIAGNOSTIC 07/21/2020 EGD REMOVE CATARACT, INSERT LENS, INTRACAPSUL Bilateral 2009 Current Outpatient Medications Medication Sig Dispense Refill [...] No) 1 Kit 0 Walker (ULTRA-LIGHT ROLLATOR) [facility] One Rolator with seat. Dx: J44.9, M54.9, [...] No history of dysuria, frequency or incontinence SOFT SUGAR OPERATOR HEAD: stool per vagina per HPI MUSCULOSKELETAL: Negative [...] which included preparing to see the patient, [id number] patient care, completing clinical documentation, obtaining and/or reviewing separately obtained history, performing a medically appropriate examination, counseling and educating the patient/family/caregiver, ordering medications, tests, or procedures, communicating with other HCPs (not separately reported), independently interpreting results (not separately reported), communicating results to the patient/family/caregiver, and care coordination (not separately reported). documented in this encounter [facility] 02-03-2023 Miscellaneous Notes Patient phones requesting refills as follows: Patient comment: Is it possible to have this sent to [facility] in [place], for maybe a2-week supply, and the normal 90-day refill to [facility]? I thought this was on auto-delivery through them but they haven't sent it Requested Prescriptions Pending Prescriptions Disp Refills losartan (COZAAR) 50 mg tablet 90 tablet 1 Sig: Take 1 tablet by mouth once daily. TAVO-12/23/22 Labs-11/04/22 NOV-03/11/23 Med filled 06/14/22 Please review and advise. Brianne Chiang LPN [facility] System 01-31-2023 Miscellaneous Notes Emla Rx sent by PCP on 01/30 Charity Das APRN.CARINE documented in this encounter [facility] 01-28-2023 Miscellaneous Notes This patient gave consent [...] seven days of my reply. See the [employer] message reply for my assessment and plan. I spent a total of 5 minutes reviewing the patient's prior medical records and current request for medical advice, prescribing medications or ordering tests (if applicable), replying to the patient, and documenting the encounter. Eufemia Chapa APRN.CARINE documented in this encounter [facility] 01-26-2023 Miscellaneous Notes Please see TEL ENC for today regarding RN's call to pt to schedule nurse visit for urine specimen collection. Jason Mcfadden RN Discussed with Eufemia Chapa DNP. Recommend nurse visit for straight cath urine specimen. Patient has colovesical fistula and clean catch is not recommended. Eloisa Ferrara APRN.CNP documented in this encounter [facility] 01-26-2023 Miscellaneous Notes RN's call to pt to schedule office visit for urine specimen collection went to voicemail. RN left message requesting return call from pt to schedule nurse visit. Call terminated. documented in this encounter [facility] 01-25-2023 Note HNO ID: [id number] Author: Leesa Ramirez MD Service: ? Author Type: Physician Type: Progress Notes Filed: 01/25/2023 3:26 PM Note Text: Robbin Singh 1940 REFERRING PHYSICIAN: Eufemia Chapa APRN.CNP CHIEF COMPLAINT: Consult (Colovesical fistula) HPI: The patient is a 82 year old female presents with colovesical fistula. She has noted symptoms for about two months. 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 Associated colonic wall thickening and adjacent stranding noted. There is under distension of the urinary bladder with significant wall edema and adjacent inflammatory change. Patient had been scheduled for an appointment at [facility] in [place], but the family deferred this and preferred to be seen in [place]. The patient had also been scheduled for an appointment at [facility], but deferred this. The patient [...] kidney disease) stage 3, GFR 30-59 ml/min ([facility]) 01/01/2019 COPD with chronic bronchitis ([facility]) 02/15/2017 Dr. Brito Current use of proton pump inhibitor 11/25/2016 Mg checked 11/2017 DDD (degenerative disc disease), cervical 07/29/2015 DDD (degenerative disc disease), lumbar 05/08/2013 Diabetes mellitus type 2 in obese ([facility]) 06/2015 a1c 6.5% Diabetic eye exam ([facility]) 03/15/2017 Last done: 10/24/2019 No Retinopathy [...] TACO (obstructive sleep apnea) D[facility] fx [phone] Pain due to total left knee replacement ([facility]) 06/08/2018 Personal history of colonic polyps 01/23/2016 Primary insomnia 03/16/2017 Brain center 06/26/2018 recommended Klonopin every other day for a week and then just as needed. Primary osteoarthritis of right knee 07/13/2016 Pulmonary hypertension ([facility]) 05/19/2022 Seeing pulm and cardio Pulmonary nodules 03/03/2013 Incidental non-calcified nodules 10/09/2012. Repeat CT due 06/2013 Recurrent major depressive disorder, in full remission ([facility]) 08/17/2012 Rheumatoid arthritis(714.0) Spondylosis of lumbar [...] CYSTOSCOPY 09/21/12 EGD 10/17/2011 Dr Negrete in [place] ESOPHAGOGASTRODUODENOSCOPY TRANSORAL DIAGNOSTIC 05/16/2014 EGD ESOPHAGOGASTRODUODENOSCOPY TRANSORAL [...] mononitrate ER ( (more content not included)... [facility] 01-25-2023 History of Present illness Narrative Robbin Singh 1940 REFERRING PHYSICIAN: Eufemia Chapa APRN.AIRCRAFT ENGINEER CHIEF COMPLAINT: Consult (Colovesical fistula) HPI: The patient is a 82 year old female presents with colovesical fistula. She has noted symptoms for about two months. 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 Associated colonic wall thickening and adjacent stranding noted. There is under distension of the urinary bladder with significant wall edema and adjacent inflammatory change. Patient had been scheduled for an appointment at [facility] in [place], but the family deferred this and preferred to be seen in [place]. The patient had also been scheduled for an appointment at [facility], but deferred this. The patient [...] with myelopathy 07/29/2015 Chronic diastolic heart failure ([facility]), mild. 08/27/[address] Bravo. Chronic pain of both knees 11/16/2019 CKD (chronic kidney disease) stage 3, GFR 30-59 ml/min ([facility]) 01/01/2019 COPD with chronic bronchitis ([facility]) 02/15/2017 Dr. Brito Current use of proton pump inhibitor 11/25/2016 Mg checked 11/2017 DDD (degenerative disc disease), cervical 07/29/2015 DDD (degenerative disc disease), lumbar 05/08/2013 Diabetes mellitus type 2 in obese ([facility]) 06/2015 a1c 6.5% Diabetic eye exam ([facility]) 03/15/2017 Last done: 10/24/2019 No Retinopathy [...] >= 40 06/26/2018 TACO (obstructive sleep apnea) [facility] fx [phone] Pain due to total left knee replacement ([facility]) 06/08/2018 Personal history of colonic polyps 01/23/2016 Primary insomnia 03/16/2017 Brain center 06/26/2018 recommended Klonopin every other day for a week and then just as needed. Primary osteoarthritis of right knee 07/13/2016 Pulmonary hypertension ([facility]) 05/19/2022 Seeing pulm and cardio Pulmonary nodules 03/03/2013 Incidental non-calcified nodules 10/09/2012. Repeat CT due 06/2013 Recurrent major depressive disorder, in full remission ([facility]) 08/17/2012 Rheumatoid arthritis(714.0) Spondylosis of lumbar region without myelopathy or radiculopathy 05/28/2015 Status post total left knee replacement 06/08/2018 Stress incontinence 11/21/[address] Armas. Thyroid nodule 11/15/2018 Stable on 2017 Type 2 diabetes mellitus with stage 3 chronic kidney disease, without long-term current use of insulin ([facility]) 06/06/2017 Urge incontinence 11/21/2012 PAST SURGICAL [...] CYSTOSCOPY 09/21/12 EGD 10/17/2011 Dr Negrete in [place] ESOPHAGOGASTRODUODENOSCOPY TRANSORAL DIAGNOSTIC 05/16/2014 EGD ESOPHAGOGASTRODUODENOSCOPY TRANSORAL [...] DX E11.22 Insulin No) Walker (ULTRA-LIGHT ROLLATOR) misc One Rolator with [...] Mother Lipids Mother HIGH CHOLESTEROL Heart Father CT Ischemic Heart Disease Father STROKE other (diabetic) Father Diabetes Sister Diabetes Sister Breast Cancer Sister The review of systems data was entered by the nurse and reviewed by fl Nursing Notes: Beata Doshi RN 01/25/2023 1:26 [...] Medical Decision Making Level: 2 - Straightforward Leeas Ramirez MD documented in this encounter [facility] 01-25-2023 Nurse Note REVIEW OF SYSTEMS: General: [...] patient's last Mammogram screening? Unknown Last Colonoscopy: 2018 Beata Doshi RN documented in this encounter [facility] 01-19-2023 Miscellaneous Notes Patient has been identified [...] Shelby Rogel LPN documented in this encounter [facility] 01-18-2023 Miscellaneous Notes Unfortunately, she has to see colorectal. I know she was given a name for a colorectal surgeon in [place] so she can call that office to see if Robbin can be seen sooner there. If she has more questions, I can call her. Eufemia Chapa APRN.CARINE Daughter Mariela calling to see if waiting till 03/09/23 to see Colorectal at is okay. Pt having increased pain in the vagina area due to skin is raw and now getting blood when she wipes. When urinating getting increased pain. Pt is cleaning the area after going but the Aquaphor is not working. Please advise daughter. Shelby Rogel LPN documented in this encounter [facility] 01-14-2023 Miscellaneous Notes Patient has been identified [...] 03/2023 Last refill: documented in this encounter [facility] 01-06-2023 Miscellaneous Notes Et patient or daughter know pain med refill sent to [facility] Brig[facility] here is her Mychart note. Patient Comment: This was supposed to be back-ordered from [facility] because they were out of stock, so she got them from [facility], but it's time for another refill so [...] Shelby Rogel LPN documented in this encounter [facility] 01-06-2023 Note HNO ID: [id number] Author: Eufemia Chapa APRN.AIRCRAFT ENGINEER Service: ? Author Type: Nurse Practitioner Type: [...] ago, not yesterday. She was evaluated by JAKELeesa for vaginal burning and noted to have mejia on vaginal swab which was treated. Recently diagnosed with diverticulitis at [facility] ER visit 12/31/22. 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: Date:2012; Last Mammogram: Her [...] CYSTOSCOPY 09/21/12 EGD 10/17/2011 Dr Negrete in [place] ESOPHAGOGASTRODUODENOSCOPY TRANSORAL DIAGNOSTIC 05/16/2014 EGD ESOPHAGOGASTRODUODENOSCOPY TRANSORAL DIAGNOSTIC 09/12/14 EGD ESOPHAGOGASTRODUODENOSCOPY TRANSORAL DIAGNOSTIC 01/06/2017 EGD ESOPHAGOGASTRODUODENOSCOPY TRANSORAL DIAGNOSTIC 07/21/2020 EGD REMOVE CATARACT, INSERT LENS, INTRACAPSUL Bilateral 2008 PAST MEDICAL HISTORY Diagnosis Date Anxiety and depression 01/01/2019 Arthritis of shoulder region, degenerative right Corticosteroid 09/20/14, left corticosteroid 10/07/14 Arthritis, multiple joint involvement 01/16/2018 Advised tylenol Arthritis (more content not included)... [facility] 01-06-2023 Instructions Eufemia Chapa APRN.AIRCRAFT ENGINEER - 01/06/2023 2:02 PM EST Consult colorectal [...] and protect the skin. Avoid using a hair dresser to dry the vulvar area. Use cool gel packs on the vulva. documented in this encounter [facility] 01-06-2023 History of Present illness Narrative Female [...] was treated. Recently diagnosed with diverticulitis at [facility] ER visit 12/31/22. 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: Date:2012; Last Mammogram: Her [...] CYSTOSCOPY 09/21/12 EGD 10/17/2011 Dr Negrete in [place] ESOPHAGOGASTRODUODENOSCOPY TRANSORAL DIAGNOSTIC 05/16/2014 EGD ESOPHAGOGASTRODUODENOSCOPY TRANSORAL [...] 05/08/2013 Diabetes mellitus type 2 in obese ([facility]) 06/2015 a1c 6.5% Diabetic eye exam ([facility]) 03/15/2017 Last done: 10/24/2019 No Retinopathy [...] TACO (obstructive sleep apnea) DME [facility] fx [phone] Pain due to total left knee replacement ([facility]) 06/08/2018 Personal history of colonic polyps 01/23/2016 Primary insomnia 03/16/2017 [facility] [place] 06/26/2018 recommended Klonopin every other day for a week and then just as needed. Primary osteoarthritis of right knee 07/13/2016 Pulmonary hypertension ([facility]) 05/19/2022 Seeing pulm and cardio Pulmonary nodules 03/03/2013 Incidental non-calcified nodules 10/09/2012. Repeat CT due 06/2013 Recurrent major depressive disorder, in full remission ([facility]) 08/17/2012 Rheumatoid arthritis(714.0) Spondylosis of lumbar region without myelopathy or radiculopathy 05/28/2015 Status post total left knee replacement 06/08/2018 Stress incontinence 11/21/[address] Armas. Thyroid nodule 11/15/2018 Stable on 2017 Type 2 diabetes mellitus with stage 3 chronic kidney disease, without long-term current use of insulin ([facility]) 06/06/2017 Urge incontinence 11/21/2012 FAMILY HISTORY Problem Relation Age of Onset Hypertension Mother Heart Mother Lipids Mother HIGH CHOLESTEROL Heart Father CT Ischemic Heart Disease Father STROKE other (diabetic) [...] DX E11.22 Insulin No) Walker (ULTRA-LIGHT ROLLATOR) mis One Rolator with seat. Dx: J44.9, M54.9, [...] rate Oxybutynin Other: See Comments suggerst by [employer] to stop since it can add to [...] and ROS obtained by others. Eufemia Chapa APRN.AIRCRAFT ENGINEER Account Receivable Clerk offered: Patient accepts, visit chaperoned by Ovidio [...] Colovesical fistula - Per discharge instructions from [facility], a consult has been placed with Dr. [...] Eufemia Chapa APRN.CARINE documented in this encounter [facility] 01-01-2023 Note . MICRO - Microbiology PROCEDURE: [...] *1: This test was performed at: [facility], [address] [place] [address], [id number] , [facility] ([place]) 12-29-2022 Miscellaneous Notes Patient's daughter notified. Sun Thompson RN Patient is positive for yeast. She has dementia and sister is yoga teacher. Please notify sister of positive results. Diflucan 150 mg PO x 2 doses called in to local pharmacy. She will need to take one dose this week and another dose in 1 week. Madalyn Degroot APRN.CNM documented in this encounter [facility] 12-28-2022 Note HNO ID: [id number] Author: Madalyn Degroot APRN.CNM Service: ? Author Type: Package Line Operator Type: Progress Notes Filed: 12/28/2022 11:13 AM Note Text: Robbin Singh is a 82 year old female who presents with daughter and sister for problem visit of vaginal burning. Patient referred by PCP due to having vaginal pain and burning sensation. She thought she had a urinary tract infection but urine culture returned negative. Patient has dementia and is daughter is yoga teacher. Last week patient became concerned because she noticed feces inside her vagina. She notices stool on toilet paper after wiping. Patient's sister concerned she may have anal fissures/fistula. She has a history of mixed incontinence and wears Depends. Denies any vaginal discharge, odor or itching. Tester Regulator History LMP: Postmenopausal Age at Menarche: Age at First : Age at Menopause: Tester Regulator History Comments: Sexual Activity: Never; No partner [...] kidney disease) stage 3, GFR 30-59 ml/min ([facility]) 01/01/2019 COPD with chronic bronchitis ([facility]) 02/15/2017 Dr. Brito Current use of proton pump inhibitor 11/25/2016 Mg checked 11/2017 DDD (degenerative disc disease), cervical 07/29/2015 DDD (degenerative disc disease), lumbar 05/08/2013 Diabetes mellitus type 2 in obese ([facility]) 06/2015 a1c 6.5% Diabetic eye exam ([facility]) 03/15/2017 Last done: 10/24/2019 No Retinopathy [...] TACO (obstructive sleep apnea) D[facility] fx [phone] Pain due to total left knee replacement [...] CYSTOSCOPY 09/21/12 EGD 10/17/2011 Dr Negrete in [place] ESOPHAGOGASTRODUODENOSCOPY TRANSORAL DIAGNOSTIC 05/16/2014 EGD ESOPHAGOGASTRODUODENOSCOPY TRANSORAL DIAGNOSTIC 09/12/14 EGD ESOPHAGOGASTRODUODENOSCOPY TRANSORAL DIAGNOSTIC 01/06/2017 EGD ESOPHAGOGASTRODUODENOSCOPY TRANSORAL DIAGNOSTIC 07/21/2020 EGD REMOVE CATARACT, INSERT LENS, INTRACAPSUL Bilateral 2008 FAMILY HISTORY Problem Relation Age of Onset Hypertension Mother Heart Mother Lipids Mother HIGH CHOLESTEROL Heart Father CT Ischemic Heart Disease Father STROKE other (diabetic) Father Diabetes Sister Diabetes Sister Breast Cancer Sister Social History Tobacco Use Smoking status: Former Packs/day: 3.0 (more content not included)... [facility] 12-27-2022 Miscellaneous Notes Urine culture was negative. See Validas message. documented in this encounter [facility] 12-24-2022 Miscellaneous Notes Spoke to pt's daughter [...] the culture results. documented in this encounter [facility] 12-23-2022 Note HNO ID: [id number] Author: Stephani Crooks PA-C Service: ? Author Type: Physician Striper Machine Type: Progress Notes Filed: 12/23/2022 2:24 [...] with myelopathy 07/29/2015 Chronic diastolic heart failure ([facility]), mild. 08/27/[address] Bravo. Chronic pain of both knees 11/16/2019 CKD (chronic kidney disease) stage 3, GFR 30-59 ml/min ([facility]) 01/01/2019 COPD with chronic bronchitis ([facility]) 02/15/2017 Dr. Brito Current use of proton pump inhibitor 11/25/2016 Mg checked 11/2017 DDD (degenerative disc disease), cervical 07/29/2015 DDD (degenerative disc disease), lumbar 05/08/2013 Diabetes mellitus type 2 in obese ([facility]) 06/2015 a1c 6.5% Diabetic eye exam ([facility]) 03/15/2017 Last done: 10/24/2019 No Retinopathy [...] TACO (obstructive sleep apnea) [facility] fx [phone] Pain due to total left knee replacement [...] CYSTOSCOPY 09/21/12 EGD 10/17/2011 Dr Negrete in [place] ESOPHAGOGASTRODUODENOSCOPY TRANSORAL DIAGNOSTIC 05/16/2014 EGD ESOPHAGOGASTRODUODENOSCOPY TRANSORAL DIAGNOSTIC 09/12/14 EGD ESOPHAGOGASTRODUODENOSCOPY TRANSORAL DIAGNOSTIC 01/06/2017 EGD ESOPHAGOGASTRODUODENOSCOPY TRANSORAL DIAGNOSTIC 07/21/2020 EGD REMOVE CATARACT, INSERT LENS, INTRACAPSUL Bilateral 2008 Family History FAMILY HISTORY Pr (more content not included)... [facility] 12-23-2022 History of Present illness Narrative [...] kidney disease) stage 3, GFR 30-59 ml/min ([facility]) 01/01/2019 COPD with chronic bronchitis ([facility]) 02/15/2017 Dr. Brito Current use of proton pump inhibitor 11/25/2016 Mg checked 11/2017 DDD (degenerative disc disease), cervical 07/29/2015 DDD (degenerative disc disease), lumbar 05/08/2013 Diabetes mellitus type 2 in obese ([facility]) 06/2015 a1c 6.5% Diabetic eye exam ([facility]) 03/15/2017 Last done: 10/24/2019 No Retinopathy [...] TACO (obstructive sleep apnea) [facility] fx [phone] Pain due to total left knee replacement [...] Recurrent major depressive disorder, in full remission ([facility]) 08/17/2012 Rheumatoid arthritis(714.0) Spondylosis of lumbar region without myelopathy or radiculopathy 05/28/2015 Status post total left knee replacement 06/08/2018 Stress incontinence 11/21/[address] Armas. Thyroid nodule 11/15/2018 Stable on 2017 Type 2 diabetes mellitus with stage 3 chronic kidney disease, without long-term current use of insulin ([facility]) 06/06/2017 Urge incontinence 11/21/2012 Previous Surgical History PAST SURGICAL HISTORY Procedure Laterality Date ARTHRP KNE CONDYLE&PLATU MEDIAL&LAT COMPARTMENTS Left 06/08/2012 CHOLECYSTECTOMY HX 10/30/1997 COLONOSCOPY & POLYPECTOMY ~2008 2 polyps COLONOSCOPY & POLYPECTOMY ~2001 7 polyps COLONOSCOPY & POLYPECTOMY 11/30/2011 COLONOSCOPY FLX DX W/COLLJ SPEC WHEN PFRMD 11/29/12 Colonoscopy repeat 3 years COLONOSCOPY FLX DX W/COLLJ SPEC WHEN PFRMD 01/28/16 Colonoscopy with mac CYSTOSCOPY 09/21/12 EGD 10/17/2011 Dr Negrete in [place] ESOPHAGOGASTRODUODENOSCOPY TRANSORAL DIAGNOSTIC 05/16/2014 EGD ESOPHAGOGASTRODUODENOSCOPY TRANSORAL DIAGNOSTIC 09/12/14 EGD ESOPHAGOGASTRODUODENOSCOPY TRANSORAL DIAGNOSTIC 01/06/2017 EGD ESOPHAGOGASTRODUODENOSCOPY TRANSORAL DIAGNOSTIC 07/21/2020 EGD REMOVE CATARACT, INSERT LENS, INTRACAPSUL Bilateral 2008 Family History FAMILY HISTORY Problem Relation Age of Onset Hypertension Mother Heart Mother Lipids Mother HIGH CHOLESTEROL Heart Father CT Ischemic Heart Disease Father STROKE other (diabetic) Father Diabetes Sister Diabetes Sister Breast Cancer Sister Patient Allergies ALLERGIES Allergen Reactions Bactrim [Sulfametho* Itching Codeine Mental Status Change Garlic Oil Other: See Comments Lexapro [Escitalopr* Other: See Comments rapid heart rate Oxybutynin Other: See Comments suggerst by [facility] to stop since it can add to [...] of breath (With Spacer). Walker (ULTRA-LIGHT ROLLATOR) [facility] One Rolator with seat. Dx: J44.9, M54.9, [...] patient's family that they can go to [facility] and request virtual visit. - CONSULT TO GERIATRICS 2. Dysuria - ICD9: 788.1, ICD10: R30.0 acute Patient to get UA and Culture completed. - URINALYSIS, WITH MICROSCOPIC - URINE CULTURE - CONSULT TO GERIATRICS 3. Dementia with mood disturbance, unspecified dementia severity, unspecified dementia type - ICD9: 294.21, ICD10: F03.93 See #1. Stephani Crooks PA-C documented in this encounter [facility] 12-16-2022 Miscellaneous Notes Daughter Mariela notified of response. Appt was scheduled 12/22/22 with Mariela Alanis requested appt sometime next week. Huong Payan [...] Shelby Rogel LPN documented in this encounter [facility] 12-13-2022 Miscellaneous Notes Last office visit: 11/04/22 F/u scheduled: 03/11/23 Cristina Garcia Ma documented in this encounter [facility] 12-07-2022 Miscellaneous Notes The following approved medication [...] daily. TAVO: 11/04/22 NOV: 03/11/23 Last Refill: [place]: 11/09/22 #60 0 refills [facility]: 11/19/22 #90 5 refills.Not due for refill yet Huong Payan LPN documented in this encounter [facility] 12-02-2022 Miscellaneous Notes The following approved medication requests have been transmitted electronically. Requested Prescriptions Signed Prescriptions Disp Refills furosemide (LASIX) 20 mg tablet 180 tablet 1 Sig: Take 1 tablet by mouth twice daily. Authorizing Provider: STEPHANI CROOSK PA-C Patient phones requesting refills as follows: Pt needs the tank terminal gauger RX sent in. See below Requested Prescriptions Pending Prescriptions Disp Refills furosemide (LASIX) 20 mg tablet 180 tablet 1 Sig: Take 1 tablet by mouth twice daily. Please review and advise. Brianne Chiang LPN I'm not sure what they need? Does she need a new short term prescription to be sent or the mail order refilled. Stephani Crooks PA-C Please see [employer], Inchart message documented in this encounter [facility] 11-19-2022 Miscellaneous Notes Patient has been identified [...] Last refill: 08/2022 documented in this encounter [facility] 11-19-2022 Miscellaneous Notes Patient has been identified [...] go [facility] documented in this encounter [facility] 11-16-2022 Miscellaneous Notes Patient has been identified by name and date of : Yes, Patient phones for refill(s): Requested Prescriptions Pending Prescriptions Disp Refills donepezil (ARICEPT) 10 mg tablet 30 tablet 5 Sig: Take 1 tablet by mouth daily at bedtime. Date of last office visit in primary care: 11/04/22 Please advise. Thank you. Nel Cope LPN documented in this encounter [facility] documented in this encounter [facility] Miscellaneous Notes* Telephone Encounter - Stephani Crooks [...] you. Nel Cope LPN [facility] Miscellaneous Notes* Telephone Encounter - Nel Cope [...] you. Nel Cope LPN [facility] Miscellaneous Notes* Telephone Encounter - Michelle Bucio [...] dehydration. Stephani Crooks PA-C [facility] Instructions* Patient Instructions* Stephani Crooks PA-C - 11/04/2022 1:21 PM EST Stop prozac- restart zoloft. Decrease metformin to 1000mg at night. See if this helps with the nausea. Start actos for help on Diabetes management since we are decreasing metformin. Labs today. [facility] History of Present illness Narrative* Stephani Crooks PA-C - 11/04/2022 12:54 PM EST Chief Complaint No chief complaint on file. HPI Robbin Singh is a 82 year old female who presents here today for Chronic Medical Conditions.. Patient is here today with daughter, Mraiela and her sister, Gail. Patient has hx [...] kidney disease) stage 3, GFR 30-59 ml/min ([facility]) 01/01/2019 COPD with chronic bronchitis ([facility]) 02/15/2017 Dr. Brito Current use of proton pump inhibitor 11/25/2016 Mg checked 11/2017 DDD (degenerative disc disease), cervical 07/29/2015 DDD (degenerative disc disease), lumbar 05/08/2013 Diabetes mellitus type 2 in obese ([facility]) 06/2015 a1c 6.5% Diabetic eye exam ([facility]) 03/15/2017 Last done: 10/24/2019 No Retinopathy [...] TACO (obstructive sleep apnea) DME [employer] fx [phone] Pain due to total left knee replacement (HCC) 06/08/2018 Personal history of colonic polyps 01/23/2016 Primary insomnia 03/16/2017 Brain center 06/26/2018 recommended Klonopin every other day for a week and then just as needed. Primary osteoarthritis of right knee 07/13/2016 Pulmonary hypertension ([facility]) 05/19/2022 Seeing pulm and cardio Pulmonary nodules 03/03/2013 Incidental non-calcified nodules 10/09/2012. Repeat CT due 06/2013 Recurrent major depressive disorder, in full remission ([facility]) 08/17/2012 Rheumatoid arthritis(714.0) Spondylosis of lumbar region without myelopathy or radiculopathy 05/28/2015 Status post total left knee replacement 06/08/2018 Stress incontinence 11/21/[address] Armas. Thyroid nodule 11/15/2018 Stable on 2017 Type 2 diabetes mellitus with stage 3 chronic kidney disease, without long-term current use of insulin ([facility]) 06/06/2017 Urge incontinence 11/21/2012 Previous Surgical [...] CYSTOSCOPY 09/21/12 EGD 10/17/2011 Dr Negrete in [place] ESOPHAGOGASTRODUODENOSCOPY TRANSORAL DIAGNOSTIC 05/16/2014 EGD ESOPHAGOGASTRODUODENOSCOPY TRANSORAL DIAGNOSTIC 09/12/14 EGD ESOPHAGOGASTRODUODENOSCOPY TRANSORAL DIAGNOSTIC 01/06/2017 EGD ESOPHAGOGASTRODUODENOSCOPY TRANSORAL DIAGNOSTIC 07/21/2020 EGD REMOVE CATARACT, INSERT LENS, INTRACAPSUL Bilateral 2008 Family History FAMILY HISTORY Problem Relation Age of Onset Hypertension Mother Heart Mother Lipids Mother HIGH CHOLESTEROL Heart Father CT Ischemic Heart Disease Father STROKE other (diabetic) Father Diabetes Sister Diabetes Sister Breast Cancer Sister Patient Allergies ALLERGIES Allergen Reactions Bactrim [Sulfametho* Itching Codeine Mental Status Change Garlic Oil Other: See Comments Lexapro [Escitalopr* Other: See Comments rapid heart rate Oxybutynin Other: See Comments suggerst by Ichiba to stop since it can add to [...] intervention Stephani Crooks PA-C documented in this encounterMount Carmel Health System12-08-2022 Miscellaneous Notes* Telephone Encounter - Julia Bradley RN - 10/14/2022 10:55 AM EST Opened In Error documented in this encounterMount Carmel Health System11-09-2022 Miscellaneous Notes* Telephone Encounter - Antionette Coleman MA - 09/15/2022 8:15 AM EST Medication attached to another phone encounter. Antionette Coleman MA documented in this encounterMount Carmel Health System11-09-2022 Miscellaneous Notes* Telephone Encounter - Antionette Coleman [...] 09/2022 Last refill: 06/2022 documented in this encounterMount Carmel Health System11-01-2022 Miscellaneous Notes* Telephone Encounter - Leno Briggs [...] you. Nel Cope LPN documented in this encounterMount Carmel Health System10-21-2022 Miscellaneous Notes* Telephone Encounter - Leno Briggs [...] advise. Brianne Chiang LPN documented in this encounterMount Carmel Health System09-28-2022 Miscellaneous Notes* Telephone Encounter - Stephani Crooks [...] 09/2022 Last refill: 07/04/2022 documented in this encounterMount Carmel Health System09-20-2022 Miscellaneous Notes* Telephone Encounter - Antionette Coleman MA - 07/27/2022 10:16 AM EDT Spoke with patient and she indicated that she will check with her insurance and she indicated at this point she will wait on the motorized scooter. I advised patient to reach out to us when she is ready. She voiced understanding. nAtionette Coleman MA * Telephone Encounter - ZULEMA Salazar - 07/16/2022 10:36 AM EDT Sw will refer patients to Passport if patient needs help with ADL's ie. Bathing, grooming, mobility. [facility] [employer] ph. [phone] also will assess if patient are eligible for Medicaid as that is a requirement for Passport program. Sw looked back through notes and does not see any mention in regards to previous Passport referral or notes in regards to patient already having Passport services. Passport usually helps with home safety modifications, director home health, home delivered meals, medical alert button costs if eligible. If patient would be open to Sw referring, [facility] [employer] would do the in home assessment to seeif eligible. * Telephone Encounter - Antionette Coleman MA - 07/16/2022 10:00 AM EDT How do we find out if that patient is eligible for Passport? Antionette Coleman MA * Telephone Encounter - ZULEMA Salazar - 07/15/2022 1:54 PM EDT Sw has had patient's purchase motorized scooters from [employer] in [place]. [employer] ph.[phone] or fax#[phone]. I have not found insurance to be covering the cost of scooters unless they may be eligible for [facility] on Aging program. * Telephone [...] anyone. I told patient I would ask [employer] if she had any other ideas on places for motorized scooters for insurance. If not we have to wait on [facility]. Antionette Coleman MA * Telephone Encounter - Antionette Coleman MA - 07/07/2022 11:20 AM EDT Tried calling [employer] and they do not have motorized scooters. Antionette Coleman MA * Telephone Encounter - Cynthia Shirley LPN - 07/06/2022 10:06 AM EDT Received fax from [facility] that wheelchair that was ordered for pt is on backorder and they are unable to obtain. Advised pt of same and she will check and see if there is anywhere else her insurance will approve of that office can fax order to to see if they can get wheelchair for pt. She will callback with information. Cynthia Shirley LPN documented in this encounterMount Carmel Health System09-19-2022 Miscellaneous Notes* Telephone Encounter - Joy Hicks Ma - 07/26/2022 10:51 AM EDT Please see pt daughter message. Joy Hicks Ma documented in this encounterMount Carmel Health System08-30-2022 Miscellaneous Notes* Telephone Encounter - Cynthia Shirley LPN - 07/06/2022 11:18 AM EDT Left message of same on daughter, Shae identified vm. Cynthia Shirley LPN * Telephone Encounter - Leno Briggs MD - 07/06/2022 11:06 AM EDT Let daughter know electrolyte panel was ok. documented in this encounterMount Carmel Health System08-30-2022 Miscellaneous Notes* Telephone Encounter - Cynthia Shirley LPN - 07/06/2022 8:48 AM EDT Patient notified of results and provider's instructions. Patient verbalizes understanding. Cynthia Shirley LPN * Telephone Encounter - Stephani Crooks PA-C - 07/06/2022 8:39 AM EDT Magnesium level is a little low. Recommend starting magnesium 200mg. Will send in script but insurance may require to buy OTC. Stephani Crooks PA-C documented in this encounterMount Carmel Health System08-29-2022 History of Present illness Narrative* Leno Briggs MD - 07/05/2022 3:20 PM EDT Chief Complaint Patient presents with: Follow Up: [facility] Robbin Singh is a 81 year old female who presents here today for 4 week follow up on Depression/HTN/Edema and Medication. Patient indicated that she contacted insurance and they will approve a scooter for patient if recommended by her PCP. They will pay for 80-90% and can be faxed to [facility] [phone]. Patient here with her daughter today. Patient has recently been released for [facility] services due to meeting goals. At [...] in the next few months. Taking the [place] twice a day does help her knee [...] kidney disease) stage 3, GFR 30-59 ml/min ([facility]) 01/01/2019 COPD with chronic bronchitis ([facility]) 02/15/2017 Dr. Brito Current use of proton pump inhibitor 11/25/2016 Mg checked 11/2017 DDD (degenerative disc disease), cervical 07/29/2015 DDD (degenerative disc disease), lumbar 05/08/2013 Diabetes mellitus type 2 in obese ([facility]) 06/2015 a1c 6.5% Diabetic eye exam ([facility]) 03/15/2017 Last done: 10/24/2019 No Retinopathy [...] TACO (obstructive sleep apnea) DME [employer] fx [phone] Pain due to total left knee replacement [...] Recurrent major depressive disorder, in full remission ([facility]) 08/17/2012 Rheumatoid arthritis(714.0) Spondylosis of lumbar [...] CYSTOSCOPY 09/21/12 EGD 10/17/2011 Dr Negrete in [place] ESOPHAGOGASTRODUODENOSCOPY TRANSORAL DIAGNOSTIC 05/16/2014 EGD ESOPHAGOGASTRODUODENOSCOPY TRANSORAL DIAGNOSTIC 09/12/14 EGD ESOPHAGOGASTRODUODENOSCOPY TRANSORAL DIAGNOSTIC 01/06/2017 EGD ESOPHAGOGASTRODUODENOSCOPY TRANSORAL DIAGNOSTIC 07/21/2020 EGD REMOVE CATARACT, INSERT LENS, INTRACAPSUL Bilateral 2008 Family History FAMILY HISTORY Problem Relation Age of Onset Hypertension Mother Heart Mother Lipids Mother HIGH CHOLESTEROL Heart Father CT Ischemic Heart Disease Father STROKE other (diabetic) Father Diabetes Sister Diabetes Sister Breast Cancer Sister Patient Allergies ALLERGIES Allergen Reactions Bactrim [Sulfametho* Itching Codeine Mental Status Change Garlic Oil Other: See Comments Lexapro [Escitalopr* Other: See Comments rapid heart rate Oxybutynin Other: See Comments suggerst by Ichiba to stop since it can add to [...] once daily. flash glucose scanning reader (FREESTYLE ADELNIA 2 READER) Last A1c 9.8, Dx 11.22 [...] DX E11.22 Insulin No Walker (ULTRA-LIGHT ROLLATOR) misc One Rolator with [...] ICD9: 338.4, ICD10: G89.4 - stable with [place] 4. Bilateral leg edema - ICD9: 782.3, [...] 09/24/2022 Leno Briggs MD documented in this encounterMount Carmel Health System08-28-2022 Miscellaneous Notes* Telephone Encounter - Leno Briggs [...] Leno Briggs MD * Telephone Encounter - Cynthia Shirley LPN - 07/03/2022 8:05 AM EDT Please see daughter's message. Cynthia Shirley LPN documented in this encounterMount Carmel Health System08-23-2022 Miscellaneous Notes* Telephone Encounter - Leno Briggs [...] Leno Briggs MD * Telephone Encounter - Cynthia Shirley LPN - 06/29/2022 9:39 AM EDT Last refill 06/01/22 Qty: 60 with 0 refills TAVO 05/24/22 NOV 07/05/22 Cynthia Shirley LPN documented in this encounterMount Carmel Health System08-22-2022 Miscellaneous Notes* Telephone Encounter - Leno Briggs [...] daily. Leno Briggs MD documented in this encounterMount Carmel Health System08-08-2022 Miscellaneous Notes* Telephone Encounter - Cynthia Shirley LPN - 06/14/2022 2:28 PM EDT Left message of same on pt's vm. Cynthia Shirley LPN * Telephone Encounter - Stephani Crooks PA-C - 06/14/2022 1:42 PM EDT This was sent on 06/01. Stephani Crooks PA-C * Telephone Encounter - Cristina Garcia Ma - 06/14/2022 12:43 PM EDT Last office visit: 05/24/22 F/u scheduled: 07/05/22 Last refilled on: [place] #60 on 06/01/22 Cristina Garcia Ma documented in this encounterMount Carmel Health System08-08-2022 Miscellaneous Notes* Telephone Encounter - Cristina Garcia Ma - 06/14/2022 12:40 PM EDT Last office visit: 05/24/22 F/u scheduled: 07/05/22 Cristina Garcia Ma documented in this encounterMount Carmel Health System08-07-2022 History of Present illness Narrative* Leno Briggs MD - 06/13/2022 1:15 PM EDT Patient's home health 485 form / care plan for certification period 05/21/2022 to 07/19/2022 reviewedand signed. Relevant medical records were reviewed. Changes were communicated to home health agency documented in this encounterMount Carmel Health System08-03-2022 Miscellaneous Notes* Telephone Encounter - Cristina Garcia Ma - 06/09/2022 12:08 PM EDT Janey notified and voiced understanding. Cristina Garcia Ma * Telephone Encounter - Leno Briggs MD - 06/09/2022 12:02 PM EDT Ok to give verbal ok for delay in care. * Telephone Encounter - Leesa Oro RN - 06/08/2022 4:22 PM EDT Janey- - [facility]- reports she is to see patient bi-weekly, but patient is a little overwhelmed right now, and asked SW to come next week. SW asking for verbal approval for delay of care. Please phone Janey with verbal. documented in this encounterMount Carmel Health System07-28-2022 Miscellaneous Notes* Telephone Encounter - Cristina Garcia Ma - 06/03/2022 1:25 PM EDT Addressed in Validas message. Cristina Garcia Ma * Telephone Encounter - Cristina Garcia Ma - 06/03/2022 1:12 PM EDT Awaiting response from pt on if she has received her 90 day supply from Mail order pharmacy yet? Cristina Garcia Ma documented in this encounterMount Carmel Health System07-28-2022 Miscellaneous Notes* Telephone Encounter - Antionette Coleman [...] for functional mobility training. documented in this encounterMount Carmel Health System07-26-2022 Miscellaneous Notes* Telephone Encounter - Octavio Hampton [...] patient. Irene Hardin Ma documented in this encounterMount Carmel Health System07-21-2022 Miscellaneous Notes* Telephone Encounter - Cynthia Shirley LPN - 05/27/2022 11:49 AM EDT Orders faxed as requested to DME [phone]. Cynthia Wander Rosemary GONSALEZ * Telephone Encounter - Stephani Crooks PA-C [...] told the officewould have to call [facility] at [phone]. If it is sent there, then it will be covered.Please advise. * Telephone Encounter - Antionette Coleman MA - 05/26/2022 8:42 PM EDT Spoke with Gail and she indicated that the insurance company wanted her to have it sent to them [place] and then they would give her the [...] letter. Please advise Gail. documented in this encounterMount Carmel Health System07-20-2022 Miscellaneous Notes* Telephone Encounter - Shira Shell Cma - 05/26/2022 9:15 AM EDT Patient daughter notified and verbalized understanding Shira Shell Cma * Telephone Encounter - Stephani Crooks PA-C - 05/26/2022 9:00 AM EDT Repeat urine is better and culture negative. Stephani Crooks PA-C documented in this encounterMount Carmel Health System07-20-2022 Miscellaneous Notes* Telephone Encounter - Leesa Oro RN - 05/26/2022 8:30 AM EDT Left detailed vm on identified vm with provider's message below. * Telephone Encounter - Leno Briggs MD - 05/25/2022 8:50 PM EDT Let [place] know I'm fine giving order for her to see her one more time. If she needs more visits letme know. * Telephone Encounter - Shelby Rogel LPN - 05/25/2022 3:46 PM EDT Shanta, social contact worker with [facility] calling for verbal order to see pt one more time to follow up on referrals and community resources. Please advise Shanta. Shelby Rogel LPN documented in this encounterMount Carmel Health System07-18-2022 History of Present illness Narrative* Leno Briggs [...] when she saw Ortho in 07/2021 it a decided to hold off on surgery. At [...] cancelled them. patient does not remember this. [facility] has been out to see her encluding SW, mcfp and will also include PHYSICAL THERAPY. There [...] kidney disease) stage 3, GFR 30-59 ml/min ([facility]) 01/01/2019 COPD with chronic bronchitis ([facility]) 02/15/2017 Dr. Brito Current use of proton pump inhibitor 11/25/2016 Mg checked 11/2017 DDD (degenerative disc disease), cervical 07/29/2015 DDD (degenerative disc disease), lumbar 05/08/2013 Diabetes mellitus type 2 in obese ([facility]) 06/2015 a1c 6.5% Diabetic eye exam ([facility]) 03/15/2017 Last done: 10/24/2019 No Retinopathy [...] TACO (obstructive sleep apnea) DME [employer] [facility] [phone] Pain due to total left knee replacement [...] Recurrent major depressive disorder, in full remission ([facility]) 08/17/2012 Rheumatoid arthritis(714.0) Spondylosis of lumbar region without myelopathy or radiculopathy 05/28/2015 Status post total left knee replacement 06/08/2018 Stress incontinence 11/21/[address] Armas. Thyroid nodule 11/15/2018 Stable on US 2017 Type 2 diabetes mellitus with stage 3 chronic kidney disease, without long-term current use of insulin ([facility]) 06/06/2017 Urge incontinence 11/21/2012 Previous Surgical [...] CYSTOSCOPY 09/21/12 EGD 10/17/2011 Dr Negrete in [place] ESOPHAGOGASTRODUODENOSCOPY TRANSORAL DIAGNOSTIC 05/16/2014 EGD ESOPHAGOGASTRODUODENOSCOPY TRANSORAL DIAGNOSTIC 09/12/14 EGD ESOPHAGOGASTRODUODENOSCOPY TRANSORAL DIAGNOSTIC 01/06/2017 EGD ESOPHAGOGASTRODUODENOSCOPY TRANSORAL DIAGNOSTIC 07/21/2020 EGD REMOVE CATARACT, INSERT LENS, INTRACAPSUL Bilateral 2008 Family History FAMILY HISTORY Problem Relation Age of Onset Hypertension Mother Heart Mother Lipids Mother HIGH CHOLESTEROL Heart Father CT Ischemic Heart Disease Father STROKE other (diabetic) Father Diabetes Sister Diabetes Sister Breast Cancer Sister Patient Allergies ALLERGIES Allergen Reactions Bactrim [Sulfametho* Itching Codeine Mental Status Change Garlic Oil Other: See Comments Lexapro [Escitalopr* Other: See Comments rapid heart rate Oxybutynin Other: See Comments suggerst by Ichiba to stop since it can add to [...] up to 30 days. Walker (ULTRA-LIGHT ROLLATOR) misc One Rolator with [...] unspecified whether stage 3a or 3b CKD ([facility]) - ICD9: 250.40, 585.3, ICD10: E11.22, N18.30 (primary diagnosis) uncontrolled - Continue current medications - BP goal of <130/80 - LDL goal of <100 - Recently restarted on metformin and increased to two tabs twice a day. 2. Diabetes mellitus type 2 in obese ([facility]) - ICD9: 250.00, 278.00, ICD10: E11.69, E66.9 - As per #1 3. Diabetic eye exam ([facility]) - ICD9: V72.0, 250.00, ICD10: Z01.00, [...] mg BID 12. COPD with chronic bronchitis (HCC) - ICD9: 491.20, ICD10: J44.9 - Stable. Needs to f/u with pulm 13. Stage 3 chronic kidney disease, unspecified whether stage 3a or 3b CKD ([facility]) - ICD9: 585.3, ICD10: N18.30 - Appears stable. Will need to check renal panel in a few weeks wit being on the aldactone 14. Obesity, Class III, BMI 40-49.9 (morbid obesity) ([facility]) - ICD9: 278.01, ICD10: E66.01 Stable [...] time Leno Briggs MD documented in this encounterMount Carmel Health System07-13-2022 Miscellaneous Notes* Telephone Encounter - Leno Briggs MD - 05/19/2022 1:43 PM EDT Noted. * Telephone Encounter - Antionette Coleman MA - 05/19/2022 1:01 PM EDT Spoke with Gail and she was going to give Robbinlily Briggs's recommendations. Antionette Coleman MA * Telephone [...] insurance card and med list to [facility] fax#[phone]. Also let daughter know this was done. * Telephone Encounter - ZULEMA Salazar - 05/18/2022 7:24 AM EDT If staff could let patient sister Gail know what comes of response to home health services FAITH would appreciate. Gail ph.[phone]. * Telephone Encounter - ZULEMA Salazar - [...] then faxed to home health agency. [facility] fax#[phone]. [facility] fax#[phone], [facility] fax [phone] are other home health care options if [facility] does not work. Sw will be [...] health agencies in the community that provide mcfp and PT ie. [facility]. Faith noted for Medicare a patient would need to be considered home bound. Home Health agencies also look to provider notes to see about home health being discussed at . Faith also noted [facility]. [facility] has nursing,social work, therapy and [employer] [place] students that go to patients homes that have chronic illness to help support them. Sw noted that she would send note to Dr. Briggs and IRAIDA Styles to review and advise on what services they feel would best support patient needs at this time. Faith asked Gail how receptive patient is regarding [...] gave verbal permission to speak with Gail ph.[phone]. Sw will try call again tomorrow 05/14 @10am to discuss transportation resources. documented in this encounterMount Carmel Health System07-12-2022 History of Present illness Narrative* TRI Silva - 05/18/2022 2:05 PM EDT PULM FUNCTION SMARTBLOCK: Provider: Stephani Crooks PA-C Assisting Tech: TRI Silva Spirometry w/BD: 1 documented in this encounterMount Carmel Health System07-07-2022 Miscellaneous Notes* Telephone Encounter - Stephani Crooks PA-C - 05/13/2022 2:39 PM EDT Consult placed. * Telephone Encounter - Cynthia Shirley LPN - 05/13/2022 2:31 PM EDT Spoke with pt. She is agreeable to consult with SW. Pt would like SW to contact her sister Gail. Spoke with Gail and her contact # is [phone]. Gail states she will relay information to pt and help pt to remember things as pt has a hard time with this. Cynthia Shirley LPN * Telephone Encounter - Stephani Crooks PA-C - 05/13/2022 1:58 PM EDT Please contact patient to ask if okay for SW consult. Stephani Crooks PA-C * Telephone Encounter - Marie Kumar RN - 05/13/2022 1:35 PM EDT Patient's sister, Alicia calling to say she was at recent OV with patient. She states Stephani suggested patient speak to [employer] about transportation issues. Patient's sister says she would likeher sister to speak to a social contact worker. Sister is not listed as an emergency contact or POA. Marie Kumar RN documented in this encounterMount Carmel Health System07-05-2022 Miscellaneous Notes* Telephone Encounter - Stephani Crooks PA-C - 05/11/2022 9:56 AM EDT The following approved medication requests have been transmitted electronically. Signed Prescriptions Disp Refills metFORMIN ER (GLUCOPHAGE XR) 500 mg 24 hr tablet 360 tablet 1 Sig: Take 2 tablets by mouth twice daily with meals. TYRONE: No Authorizing Provider: STEPHANI CROOKS PA-C * Telephone Encounter - Cynthia Shirley LPN - 05/11/2022 9:41 AM EDT Patient notified of results and provider's instructions. Patient verbalizes understanding. Pt is agreeable to increase of metformin. Uses [facility] [place]. Pt denies any s/s uti. Will come to lab to give urine specimen on 05/13 when she comes for other appointment. Cynthia Shirley LPN * Telephone Encounter - Stephani Crooks [...] okay. Stephani Crooks PA-C documented in this encounterMount Carmel Health System07-05-2022 Miscellaneous Notes* Telephone Encounter - Brandy Hill Ma - 05/11/2022 9:30 AM EDT Patient has appointment in one month to f/u on restarting lasix. For daughter question about chronic pain do you want another appointment to discuss this or defer patient to see pain management? Brandy Hill Ma * Telephone Encounter - Cynthia Shirley LPN - 05/11/2022 7:25 AM EDT Please see message from pt's daughter. Cynthia Shirley LPN documented in this encounterMount Carmel Health System07-05-2022 Miscellaneous Notes* Telephone Encounter - Cynthai Shirley LPN - 05/11/2022 8:42 AM EDT Pt requesting refills TAVO 05/07/22 NOV 07/07/22 Cynthia Shirley LPN documented in this encounterMount Carmel Health System07-01-2022 Instructions* Patient Instructions* Stephani Crooks PA-C - 05/07/2022 1:46 PM EDT Please reschedule with pulm and cardiology. documented in this encounterMount Carmel Health System07-01-2022 History of Present illness Narrative* Stephani Crooks [...] kidney disease) stage 3, GFR 30-59 ml/min ([facility]) 01/01/2019 COPD with chronic bronchitis ([facility]) 02/15/2017 Dr. Brito Current use of proton pump inhibitor 11/25/2016 Mg checked 11/2017 DDD (degenerative disc disease), cervical 07/29/2015 DDD (degenerative disc disease), lumbar 05/08/2013 Diabetes mellitus type 2 in obese ([facility]) 06/2015 a1c 6.5% Diabetic eye exam ([facility]) 03/15/2017 Last done: 10/24/2019 No Retinopathy [...] TACO (obstructive sleep apnea) DME [employer] fx [phone] Pain due to total left knee replacement ([facility]) 06/08/2018 Personal history of colonic polyps 01/23/2016 Primary insomnia 03/16/2017 Brain center 06/26/2018 recommended Klonopin every other day for a week and then just as needed. Primary osteoarthritis of right knee 07/13/2016 Pulmonary nodules 03/03/2013 Incidental non-calcified nodules 10/09/2012. Repeat CT due 06/2013 Recurrent major depressive disorder, in full remission ([facility]) 08/17/2012 Rheumatoid arthritis(714.0) Spondylosis of lumbar region without myelopathy or radiculopathy 05/28/2015 Status post total left knee replacement 06/08/2018 Stress incontinence 11/21/[address] Armas. Thyroid nodule 11/15/2018 Stable on US 2017 Type 2 diabetes mellitus with stage 3 chronic kidney disease, without long-term current use of insulin ([facility]) 06/06/2017 Urge incontinence 11/21/2012 Previous Surgical History PAST SURGICAL HISTORY Procedure Laterality Date CHOLECYSTECTOMY HX 10/30/1997 COLONOSCOP W/ OR W/O [facility] SPEC 11/29/12 Colonoscopy repeat 3 years COLONOSCOP W/ OR W/O [facility] SPEC 01/28/16 Colonoscopy with mac COLONOSCOPY & POLYPECTOMY ~2007 2 polyps COLONOSCOPY & POLYPECTOMY ~2001 7 polyps COLONOSCOPY & POLYPECTOMY 11/30/2011 CYSTOSCOPY 09/21/12 EGD 10/17/2011 Dr Negrete in [place] EGD W/O OR W/BRUSH/WASH 05/16/2014 EGD EGD W/O OR W/BRUSH/WASH 09/12/14 EGD EGD W/O OR W/BRUSH/WASH 01/06/2017 EGD EGD W/O OR W/BRUSH/WASH 07/21/2020 EGD REMOVE CATARACT, INSERT LENS, INTRACAPSUL Bilateral 2008 TOTAL KNEE REPLACEMENT Left 06/08/2012 Family History FAMILY HISTORY Problem Relation Age of Onset Hypertension Mother Heart Mother Lipids Mother HIGH CHOLESTEROL Heart Father CT Ischemic Heart Disease Father STROKE other (diabetic) Father Diabetes Sister Diabetes Sister Breast Cancer Sister Patient Allergies ALLERGIES Allergen Reactions Bactrim [Sulfametho* Itching Codeine Mental Status Change Garlic Oil Other: See Comments Lexapro [Escitalopr* Other: See Comments rapid heart rate Oxybutynin Other: See Comments suggerst by Ichiba to stop since it can add to [...] mouth once daily. ) Walker (ULTRA-LIGHT ROLLATOR) [facility] One Rolator with seat. Dx: J44.9, M54.9, [...] BP <130/80 5. COPD with chronic bronchitis ([facility]) - ICD9: 491.20, ICD10: J44.9 Patient to [...] unspecified whether stage 3a or 3b CKD ([facility]) - ICD9: 585.3, ICD10: N18.30 10. Diabetes mellitus type 2 in obese ([facility]) - ICD9: 250.00, 278.00, ICD10: E11.69, [...] recheck. Stephani Crooks PA-C [facility]* Diagnosis Type 2 diabetes mellitus [...] and respiratory abnormality [facility] Miscellaneous Notes* Telephone Encounter - Cynthia Shirley LPN - 04/30/2022 11:49 AM EDT Pt [...] states she will be there on Tue. Cynthia Shirley LPN documented in this encounterMount [facility]22 Miscellaneous Notes* Telephone Encounter - Antionette Coleman [...] 04/21/2022 2:50 PM EDT Pharmacy verified in [facility] Patient has been identified by name [...] advise. Sun Chavez Pss documented in this encounterMount [facility]05-[facility]22 Miscellaneous Notes* Telephone Encounter - Leno Briggs [...] Leno Briggs MD * Telephone Encounter - Cynthia Shirley LPN - 03/31/2022 9:49 AM EDT TAVO: 10/13/21 NOV: 04/07/22 Cynthia Shirley LPN * Telephone Encounter - Ana Anderson [facility] - 03/31/2022 9:45 AM EDT Patient has [...] pharmacy. No need to notify patient. [facility] this encounter[facility]22 Miscellaneous Notes* Telephone Encounter - Cynthia Shirley LPN - 03/31/2022 9:53 AM EDT Sent this request along with other refill request to pcp. Cynthia Shirley LPN * Telephone Encounter - Romelia Dorantes [...] notify patient. Romelia Dorantes documented in this encounterMount [facility]05-16-2022 Miscellaneous Notes* Telephone Encounter - Shelby Rogel LPN - 03/22/2022 4:56 PM EDT Pt scheduled for apt on 04-07-22. Shelby Rogel LPN * Telephone Encounter - Stephani Crooks PA-C - 03/22/2022 3:15 PM EDT Patient needs to reschedule her visit with dr. Briggs. Stephani Crooks PA-C * Telephone Encounter - Ana Anderson [facility] - 03/22/2022 2:19 PM EDT Patient has [...] to pharmacy. No need to notify patient. [facility] in this encounterMount [facility]09-13-2021 NoteHNO ID: [id number] Author: MODESTO Salmeron Service: Radiology Author Type: Clinical Senior Finance Manager Type: Progress Notes Filed: 07/20/2021 2:36 [...] BY: MODESTO Salmeron July 20, 2021 2:35 [facility] [id number] History of Past illness Narrative* Problem Noted [...] of this encounter (statuses as of 06/22/2023) [facility] of [facility] Narrative* Problem Noted [...] of this encounter (statuses as of 06/22/2023) [facility] of [facility] Narrative* Problem Noted [...] of this encounter (statuses as of 07/06/2023) [facility] of [facility] Narrative* Problem Noted [...] of this encounter (statuses as of 08/24/2023) [facility] Narrative* Problem Noted [...] of this encounter (statuses as of 09/02/2023) [facility] of [facility] Narrative* Problem Noted [...] of this encounter (statuses as of 09/20/2023) [facility] Narrative* Problem Noted [...] of this encounter (statuses as of 03/22/2022) [facility] Narrative* Problem Noted [...] of this encounter (statuses as of 03/31/2022) [facility] Narrative* Problem Noted [...] of this encounter (statuses as of 03/31/2022) [facility] Narrative* Problem Noted [...] of this encounter (statuses as of 04/22/2022) [facility] Narrative* Problem Noted [...] of this encounter (statuses as of 04/30/2022) [facility] Narrative* Problem Noted [...] of this encounter (statuses as of 05/07/2022) [facility] Narrative* Problem Noted [...] of this encounter (statuses as of 05/11/2022) [facility] Narrative* Problem Noted [...] of this encounter (statuses as of 05/11/2022) [facility] N[facility]* Problem Noted [...] of this encounter (statuses as of 05/12/2022) [facility] N[facility]ative* Problem Noted [...] of this encounter (statuses as of 05/13/2022) [facility] N[facility]* Problem Noted [...] of this encounter (statuses as of 05/18/2022) [facility] N[facility]* Problem Noted [...] of this encounter (statuses as of 05/19/2022) [facility] N[facility]* Problem Noted [...] of this encounter (statuses as of 05/24/2022) [facility] N[facility]* Problem Noted [...] of this encounter (statuses as of 05/26/2022) [facility] N[facility]* Problem Noted [...] of this encounter (statuses as of 05/27/2022) [facility] N[facility]* Problem Noted [...] of this encounter (statuses as of 06/01/2022) [facility] N[facility]* Problem Noted [...] of this encounter (statuses as of 06/03/2022) [facility] N[facility]* Problem Noted [...] of this encounter (statuses as of 06/03/2022) [facility]* Problem Noted [...] of this encounter (statuses as of 06/09/2022) [facility]* Problem Noted [...] of this encounter (statuses as of 06/14/2022) [facility]* Problem Noted [...] of this encounter (statuses as of 06/14/2022) [facility]* Problem Noted [...] of this encounter (statuses as of 06/14/2022) [facility]* Problem Noted [...] of this encounter (statuses as of 06/15/2022) [facility] N[facility]* Problem Noted [...] of this encounter (statuses as of 06/29/2022) [facility] N[facility]* Problem Noted [...] incontinence 11/21/2012 03/24/2020 Overview: Did see Dr. Armsa Bronchitis 11/09/2012 03/02/2013 Sinus infection 11/09/2012 03/02/2013 Diabetes mellitus 11/09/2012 11/14/2013 COPD (chronic obstructive pulmonary disease) 11/09/2012 documented as of this encounter (statuses as of 06/29/2022) [facility] N[facility]* Problem Noted [...] of this encounter (statuses as of 07/04/2022) [facility]* Problem Noted [...] of this encounter (statuses as of 07/05/2022) [facility]* Problem Noted [...] of this encounter (statuses as of 07/06/2022) [facility]* Problem Noted [...] of this encounter (statuses as of 07/26/2022) [facility]* Problem Noted [...] of this encounter (statuses as of 07/27/2022) [facility]* Problem Noted [...] of this encounter (statuses as of 08/04/2022) [facility]* Problem Noted [...] of this encounter (statuses as of 08/27/2022) [facility]* Problem Noted [...] of this encounter (statuses as of 09/08/2022) [facility]* Problem Noted [...] of this encounter (statuses as of 09/15/2022) [facility]* Problem Noted [...] of this encounter (statuses as of 09/15/2022) [facility]* Problem Noted [...] of this encounter (statuses as of 10/14/2022) [facility]* Problem Noted [...] of this encounter (statuses as of 11/10/2022) [facility]* Problem Noted [...] of this encounter (statuses as of 11/10/2022) [facility]* Problem Noted [...] of this encounter (statuses as of 11/11/2022) [facility]* Problem Noted [...] of this encounter (statuses as of 11/11/2022) [facility]* Problem Noted [...] of this encounter (statuses as of 11/16/2022) [facility]* Problem Noted [...] of this encounter (statuses as of 11/19/2022) [facility]* Problem Noted [...] of this encounter (statuses as of 11/19/2022) [facility]* Problem Noted [...] of this encounter (statuses as of 11/22/2022) [facility]* Problem Noted [...] of this encounter (statuses as of 12/02/2022) [facility]* Problem Noted [...] of this encounter (statuses as of 12/07/2022) [facility]* Problem Noted [...] of this encounter (statuses as of 12/13/2022) [facility]* Problem Noted [...] of this encounter (statuses as of 12/16/2022) [facility]* Problem Noted [...] of this encounter (statuses as of 12/23/2022) [facility]* Problem Noted [...] of this encounter (statuses as of 12/24/2022) [facility]* Problem Noted [...] of this encounter (statuses as of 12/27/2022) [facility]* Problem Noted [...] of this encounter (statuses as of 12/29/2022) [facility]* Problem Noted [...] of this encounter (statuses as of 01/06/2023) [facility]* Problem Noted [...] of this encounter (statuses as of 01/07/2023) [facility]* Problem Noted [...] of this encounter (statuses as of 01/14/2023) [facility]* Problem Noted [...] of this encounter (statuses as of 01/18/2023) [facility]* Problem Noted [...] of this encounter (statuses as of 01/19/2023) [facility]* Problem Noted [...] of this encounter (statuses as of 01/25/2023) [facility]* Problem Noted [...] of this encounter (statuses as of 01/26/2023) [facility]* Problem Noted [...] of this encounter (statuses as of 01/26/2023) [facility]* Problem Noted [...] of this encounter (statuses as of 01/28/2023) [facility]* Problem Noted [...] of this encounter (statuses as of 01/31/2023) [facility]* Problem Noted [...] of this encounter (statuses as of 02/03/2023) [facility]* Problem Noted [...] incontinence 11/21/2012 03/24/2020 Overview: Did see Dr. Armsa Bronchitis 11/09/2012 03/02/2013 Sinus infection 11/09/2012 03/02/2013 Diabetes mellitus 11/09/2012 11/14/2013 COPD (chronic obstructive pulmonary disease) 11/09/2012 documented as of this encounter (statuses as of 02/10/2023) [facility]* Problem Noted [...] of this encounter (statuses as of 02/10/2023) [facility]* Problem Noted [...] of this encounter (statuses as of 02/11/2023) [facility]* Problem Noted [...] of this encounter (statuses as of 02/14/2023) [facility]* Problem Noted [...] of this encounter (statuses as of 02/14/2023) [facility]* Problem Noted [...] of this encounter (statuses as of 02/18/2023) [facility]* Problem Noted [...] of this encounter (statuses as of 03/07/2023) [facility]* Problem Noted [...] of this encounter (statuses as of 03/09/2023) [facility]* Problem Noted [...] of this encounter (statuses as of 03/09/2023) [facility]* Problem Noted [...] of this encounter (statuses as of 03/12/2023) [facility]* Problem Noted [...] of this encounter (statuses as of 03/17/2023) [facility]* Problem Noted [...] of this encounter (statuses as of 04/04/2023) [facility]* Problem Noted [...] of this encounter (statuses as of 04/11/2023) [facility]* Problem Noted [...] of this encounter (statuses as of 06/21/2023) [facility] note No data available for this section [facility] Evaluation note* Diagnosis Chronic pain of both knees Neuropathic pain Neuralgia, neuritis, and radiculitis, unspecified Chronic pain syndrome Lumbar spondylosis Lumbosacral spondylosis without myelopathy DDD (degenerative disc disease), cervical Degeneration of cervical intervertebral disc Arthritis, multiple joint involvement Unspecified arthropathy, multiple sites documented in this encounter [facility] note* Diagnosis Microscopic hematuria- Primary documented in this encounter [facility] note* Diagnosis Diabetes mellitus type 2 in obese ([facility])- Primary Type II or unspecified type diabetes mellitus without mention of complication, not stated as uncontrolled Recurrent major depressive disorder, in full remission ([facility]) MCI (mild cognitive impairment) Mild cognitive impairment, so stated documented in this encounter [facility] note* Diagnosis COPD with chronic bronchitis (HCC) Obstructive chronic bronchitis without exacerbation SOB (shortness of breath) Shortness of breath CHURCH (dyspnea on exertion) Other dyspnea and respiratory abnormality documented in this encounter [facility] note* Diagnosis Chronic pain syndrome- Primary Recurrent major depressive disorder, in full remission ([facility]) Essential hypertension Unspecified essential hypertension Mixed hyperlipidemia Type 2 diabetes mellitus with stage 3 chronic kidney disease, without long-term current use of insulin, unspecified whether stage 3a or 3b CKD ([facility]) Chronic diastolic heart failure ([facility]), mild. Chronic diastolic heart failure TACO (obstructive sleep apnea) Obstructive sleep apnea (adult) (pediatric) Obesity, Class III, BMI 40-49.9 (morbid obesity) ([facility]) Morbid obesity Urge incontinence documented in this encounter [facility] note* Diagnosis Type 2 diabetes mellitus with stage 3 chronic kidney disease, without long-term current use of insulin, unspecified whether stage 3a or 3b CKD ([facility])- Primary 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) Type II or unspecified type diabetes mellitus without mention of complication, not stated as uncontrolled Diabetic eye exam ([facility]) Type II or unspecified type diabetes [...] whether stage 3a or 3b CKD (HCC) Obesity, Class III, BMI 40-49.9 (morbid obesity) (HCC) Morbid obesity TACO (obstructive sleep apnea) Obstructive sleep apnea (adult) (pediatric) Primary insomnia Persistent disorder of initiating or maintaining sleep Bilateral primary osteoarthritis of knee Microscopic hematuria [facility] Diagnosis Chronic pain of both knees Neuropathic pain Neuralgia, neuritis, and radiculitis, unspecified Chronic pain syndrome Lumbar spondylosis Lumbosacral spondylosis without myelopathy DDD (degenerative disc disease), cervical Degeneration of cervical intervertebral disc Arthritis, multiple joint involvement Unspecified arthropathy, multiple sites [facility] Diagnosis Hypertensive heart disease with congestive heart failure, unspecified heart failure type ([facility])- Primary Chronic diastolic heart failure (HCC) Chronic diastolic heart failure Type 2 diabetes mellitus with diabetic chronic kidney disease, unspecified CKD stage, unspecified whether tank terminal gauger insulin use ([facility]) Stage 3 chronic kidney disease, unspecified whether stage 3a or 3b CKD (HCC) Major depressive disorder, recurrent episode, in full remission (HCC) Major depressive disorder, recurrent episode, in full remission Mild cognitive impairment, so stated Mixed hyperlipidemia Cervical spondylosis with myelopathy Other spondylosis with radiculopathy, lumbar region Obstructive chronic bronchitis without exacerbation (HCC) Obstructive chronic bronchitis without exacerbation Obstructive sleep apnea (adult) (pediatric) [facility] Diagnosis Chronic pain of both knees Neuropathic pain Neuralgia, neuritis, and radiculitis, unspecified Chronic pain syndrome Lumbar spondylosis Lumbosacral spondylosis without myelopathy DDD (degenerative disc disease), cervical Degeneration of cervical intervertebral disc Arthritis, multiple joint involvement Unspecified arthropathy, multiple sites [facility] Diagnosis Chronic pain of both knees [...] [facility] Chronic pain of both knees Neuropathic pain Neuralgia, neuritis, and radiculitis, unspecified Chronic pain syndrome Lumbar spondylosis Lumbosacral spondylosis without myelopathy DDD (degenerative disc disease), cervical Degeneration of cervical intervertebral disc Arthritis, multiple joint involvement Unspecified arthropathy, multiple sites [facility] Diagnosis Chronic pain of both knees Neuropathic pain Neuralgia, neuritis, and radiculitis, unspecified Chronic pain syndrome Lumbar spondylosis Lumbosacral spondylosis without myelopathy DDD (degenerative disc disease), cervical Degeneration of cervical intervertebral disc Arthritis, multiple joint involvement Unspecified arthropathy, multiple sites [facility] Diagnosis Chronic pain of both knees Neuropathic pain Neuralgia, neuritis, and radiculitis, unspecified Chronic pain syndrome Lumbar spondylosis Lumbosacral spondylosis without myelopathy DDD (degenerative disc disease), cervical Degeneration of cervical intervertebral disc Arthritis, multiple joint involvement Unspecified arthropathy, multiple sites [facility] Diagnosis Nightmares- Primary Other dysfunctions of sleep stages or arousal from sleep Dysuria Dementia with mood disturbance, unspecified dementia severity, unspecified dementia type [facility] Diagnosis Colovesical fistula- Primary Intestinovesical fistula Vulvar irritation Other specified noninflammatory disorder of vulva and perineum Mixed incontinence Mixed incontinence urge and stress (male)(female) Morbid obesity (HCC) Morbid obesity Dementia, unspecified dementia severity, unspecified dementia type, unspecified whether behavioral, psychotic, or mood disturbance or anxiety (HCC) documented in this encounter [facility] note* Diagnosis Chronic pain of both knees Neuropathic pain Neuralgia, neuritis, and radiculitis, unspecified Chronic pain syndrome Lumbar spondylosis Lumbosacral spondylosis without myelopathy DDD (degenerative disc disease), cervical Degeneration of cervical intervertebral disc Arthritis, multiple joint involvement Unspecified arthropathy, multiple sites [facility] Diagnosis Colovesical fistula Intestinovesical fistula Morbid obesity (HCC) Morbid obesity Poorly controlled diabetes mellitus (HCC) Type II or unspecified type diabetes mellitus without mention of complication, not stated as uncontrolled [facility] Diagnosis Colovesical fistula- Primary Intestinovesical fistula [facility] Diagnosis Colovesical fistula- Primary Intestinovesical fistula documented in this encounter [facility] note* Diagnosis Colovesical fistula- Primary Intestinovesical fistula [facility]* Diagnosis Medication management- Primary Encounter for long-term (current) use of other medications documented in this encounter [facility] note* Diagnosis Colovesical fistula- Primary Intestinovesical fistula Screening for ischemic heart disease- Primary documented in this encounter [facility] note* Diagnosis Chronic pain of both knees Neuropathic pain Neuralgia, neuritis, and radiculitis, unspecified Chronic pain syndrome Lumbar spondylosis Lumbosacral spondylosis without myelopathy DDD (degenerative disc disease), cervical Degeneration of cervical intervertebral disc Arthritis, multiple joint involvement Unspecified arthropathy, multiple sites documented in this encounter [facility] note* Diagnosis APPOINTMENT CANCELLED- Primary [facility]* Diagnosis Memory loss- Primary Mild episode of recurrent major depressive disorder (HCC) Nightmares Other dysfunctions of sleep stages or arousal from sleep 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 [facility] note* Diagnosis Colovaginal fistula- Primary Diverticulitis Diverticulitis of colon (without mention of hemorrhage) Abnormal CT scan Other nonspecific (abnormal) findings on radiological and other examinations of body structure Dementia, unspecified dementia severity, unspecified dementia type, unspecified whether behavioral, psychotic, or mood disturbance or anxiety ([facility]) Morbid obesity ([facility]) Morbid obesity 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 [facility] note* Diagnosis Memory loss 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 [facility] note* Diagnosis Colovaginal fistula Diabetes mellitus, type 2 ([facility]) Type II or unspecified type diabetes mellitus without mention of complication, not stated as uncontrolled CHF (congestive heart failure) ([facility]) ([facility]) Congestive heart failure, unspecified documented in this encounter [facility] note* Diagnosis Moderate late onset Alzheimer's dementia without behavioral disturbance, psychotic disturbance, mood disturbance, or anxiety ([facility])- Primary Insomnia, unspecified type Apathetic behavior due to dementia ([facility]) Mild episode of recurrent major depressive disorder ([facility]) documented in this encounter [facility] note* Diagnosis Colovaginal fistula- Primary Colovesical fistula Intestinovesical fistula History of diverticulitis documented in this encounter [facility] note* Diagnosis Insomnia, unspecified type documented in this encounter [facility] note* Diagnosis Chronic pain of both knees [...] head and neck documented in this encounter [facility] note* Diagnosis Other amnesia- Primary documented in this encounter [facility] note* Diagnosis Dysuria [facility] Diagnosis Anemia, unspecified type- Primary Hyponatremia Hyposmolality and/or hyponatremia [facility]* Diagnosis Dysuria Chronic pain of both [...] Care Everywhere. * Colon Polypectomy Discharge Instructions ([place]) [facility] ([facility] Outpatient Procedure (Routine) - Authorized Specialty Diagnoses / Procedures Referred By Contac t Referred To Contact [facility] Diagnoses COPD with chronic bronchitis (HCC) SOB (shortness of breath) CHURCH (dyspnea on exertion) Procedures SPIROMETRY - BASELINE AND POST DILATOR BRNCDILAT RSPSE SPMTRY PRE&POST-BRNCDILAT ADMN Stephani Crooks PA-C [address] [place] [address] [facility] [address] [place] [id number] Referral ID Status Reason Start Date Expiration Date Visits Requested Visits Authorized [id number] Authorized Auto-Generat ed Referral 05/07/2022 11/06/2022 1 1 * Outpatient Procedure (Routine) - Authorized Specialty Diagnoses / Procedures Referred By Contac t Referred To Contact [facility] Diagnoses Chronic diastolic heart failure (HCC) SOB (shortness of breath) CHURCH (dyspnea on exertion) Procedures ECHO ECHO TTHRC R-T 2D W/WOM-MODE COMPL SPEC&COLR D Stephani Crooks PA-C [address] [place] [address] [facility] [address] [address] Referral ID Status Reason Start Date Expiration Date Visits Requested Visits Authorized [id number] Authorized Auto-Generat ed Referral 05/07/2022 11/06/2022 1 1 [facility] for referral (narrative)* Outpatient Procedure (Routine) - Pending Review Specialty Diagnoses / Procedures Referred By Contac t Referred To Contact [facility] Diagnoses Colovesical fistula Procedures COLONOSCOPY DIAGNOSTIC COLONOSCOPY FLX DX W/COLLJ SPEC WHEN PFRMLeonel Hare MD [address] [address] [facility] [address] [place] [address] Referral ID Status Reason Start Date Expiration Date Visits Requested Visits Authorized [id number] Pending Review Auto-Generat ed Referral 02/18/2023 02/19/2024 1 1 [facility] note* JETHRO Barragan Ever: PERFORM Event Display: Patient Summary Documents Authored Date: [id number] [facility] Summary Purpose Family History No Family History Records FoundNo Family History Records FoundNo Family History Records FoundNo Family History Records FoundNo Family History Records FoundNo Family History Records Found No data available for this section No Family History Records Found Advance Directives No Advanced Directives Records FoundDocuments on File Type Date Recorded Patient Scientific Director Expl anation Advance Directive(s) 07/21/2020 9:36 AM [...] Documents on File Type Date Recorded Patient Scientific Director Expl anation Advance Directive(s) 07/21/2020 9:36 AM [...] Documents on File Type Date Recorded Patient Scientific Director Expl anation Advance Directives and Livin g Will 05/04/2023 1:18 PM Latest Code Status on File Code Status Date Activated Date Inactivated Comments Full Code 05/25/2023 8:10 AM 05/25/2023 2:17 PM Documents on File Type Date Recorded Patient Scientific Director Expl anation Advance Directives and Livin g [...] Dysuria Nightmares Procedures CONSULT TO GERIATRICS OFFICE/OUTPATIENT [facility] 60-74 MINUTES Stephani Crooks PA-C [address] [place] [address] Referral ID Status Reason Start Date Expiration Date Visits Requested Visits Authorized [id number] Pending Review PCP Requested Referral 12/23/2022 12/23/2023 1 1 Specialty Diagnoses / Procedures Referred By Contac t Referred To Contact Colon and Rectal Surgery Diagnoses Colovesical fistula Procedures CONSULT TO COLO-RECTAL SURGERY OFFICE/OUTPATIENT [facility] 60-74 MINUTES Eufemia Chapa, LAST REMODELER REPAIRER.AIRCRAFT ENGINEER [address] [place] [address] Referral ID Status Reason Start Date Expiration Date Visits Requested Visits Authorized [id number] Pending Review PCP Requested Referral 01/06/2023 01/06/2024 1 1 Specialty Diagnoses / Procedures Referred By Contac t Referred To Contact Stephani Crooks PA-C [address] [place] [address] Referral ID Status Reason Start Date Expiration Date Visits Re quested Visits Authorized [id number] Closed 1 1 Specialty Diagnoses / Procedures Referred By Contac t Referred To Contact Colon and Rectal Surgery Diagnoses Colovesical fistula Procedures CONSULT TO COLO-RECTAL SURGERY OFFICE/OUTPATIENT NEW HIGH MDM 60-74 MINUTES Leesa Ramirez MD [address] [place] [address] Referral ID Status Reason Start Date Expiration Date Visits Requested Visits Authorized [id number] Pending Review PCP Requested Referral 01/25/2023 01/25/2024 1 1 Specialty Diagnoses / Procedures Referred By Contac t Referred To Contact Radiology Diagnoses Memory loss Procedures CT head wo IV contrast Shantal Serrano, LAST REMODELER REPAIRER - AIRCRAFT ENGINEER [address] [place] [address] Referral ID Status Reason Start Date Expiration Date V isits Requested Visits Authorized [id number] Authorized 04/05/2023 10/02/2023 1 1 Referral ID Status Reason Start Date Expiration Date Visits Re quested Visits Authorized [id number] Closed 04/05/2023 10/02/2023 1 1 Additional Source Comments INFORMATION SOURCE (unrecogn ized section and content) DATE CREATED AUTHOR AUTHOR'S ORGANIZ ATION 04/13/2019 [facility] DATE CREATED AUTHOR AUTHOR'S ORGANIZ ATION 07/22/2021 [facility] DATE CREATED AUTHOR AUTHOR'S ORGANIZ ATION 02/05/2023 [facility] DATE CREATED AUTHOR AUTHOR'S ORGANIZ ATION 09/21/2023 [facility] DATE CREATED AUTHOR AUTHOR'S ORGANIZ ATION 11/18/2023 [facility] DATE CREATED AUTHOR AUTHOR'S ORGANIZ ATION 12/02/2023 [facility] Source Comments (unrecognize d section and content) In the event this informatio n is protected by the Federal Confidentiality of Alcohol and Drug Abuse Patient Records regulations: The Federal rules restrict any use of the information to criminally investigate or prosecute any alcohol or drug abuse patient.[facility] the event this information is protected by the Federal Confidentiality of Alcohol and Drug Abuse Patient Records regulations: The Federal rules restrict any use of the information to criminally investigate or prosecute any alcohol or drug abuse patient.[facility] SystemIn the event this information is protected by the Federal Confidentiality of Alcohol and Drug Abuse Patient Records regulations: The Federal rules restrict any use of the information to criminally investigate or prosecute any alcohol or drug abuse patient.[facility] SystemIn the event this information is protected by the Federal Confidentiality of Alcohol and Drug Abuse Patient Records regulations: The Federal rules restrict any use of the information to criminally investigate or prosecute any alcohol or drug abuse patient.[facility] SystemIn the event this information is protected by the Federal Confidentiality of Alcohol and Drug Abuse Patient Records regulations: The Federal rules restrict any use of the information to criminally investigate or prosecute any alcohol or drug abuse patient.[facility] SystemIn the event this information is protected by the Federal Confidentiality of Alcohol and Drug Abuse Patient Records regulations: The Federal rules restrict any use of the information to criminally investigate or prosecute any alcohol or drug abuse patient.[facility] SystemIn the event this information is protected by the Federal Confidentiality of Alcohol and Drug Abuse Patient Records regulations: The Federal rules restrict any use of the information to criminally investigate or prosecute any alcohol or drug abuse patient.[facility] SystemIn the event this information is protected by the Federal Confidentiality of Alcohol and Drug Abuse Patient Records regulations: The Federal rules restrict any use of the information to criminally investigate or prosecute any alcohol or drug abuse patient.[facility] SystemIn the event this information is protected by the Federal Confidentiality of Alcohol and Drug Abuse Patient Records regulations: The Federal rules restrict any use of the information to criminally investigate or prosecute any alcohol or drug abuse patient.[facility] SystemIn the event this information is protected by the Federal Confidentiality of Alcohol and Drug Abuse Patient Records regulations: The Federal rules restrict any use of the information to criminally investigate or prosecute any alcohol or drug abuse patient.[facility] SystemIn the event this information is protected by the Federal Confidentiality of Alcohol and Drug Abuse Patient Records regulations: The Federal rules restrict any use of the information to criminally investigate or prosecute any alcohol or drug abuse patient.[facility] SystemIn the event this information is protected by the Federal Confidentiality of Alcohol and Drug Abuse Patient Records regulations: The Federal rules restrict any use of the information to criminally investigate or prosecute any alcohol or drug abuse patient.[facility] SystemIn the event this information is protected by the Federal Confidentiality of Alcohol and Drug Abuse Patient Records regulations: The Federal rules restrict any use of the information to criminally investigate or prosecute any alcohol or drug abuse patient.[facility] SystemIn the event this information is protected by the Federal Confidentiality of Alcohol and Drug Abuse Patient Records regulations: The Federal rules restrict any use of the information to criminally investigate or prosecute any alcohol or drug abuse patient.[facility] SystemIn the event this information is protected by the Federal Confidentiality of Alcohol and Drug Abuse Patient Records regulations: The Federal rules restrict any use of the information to criminally investigate or prosecute any alcohol or drug abuse patient.[facility] SystemIn the event this information is protected by the Federal Confidentiality of Alcohol and Drug Abuse Patient Records regulations: The Federal rules restrict any use of the information to criminally investigate or prosecute any alcohol or drug abuse patient.[facility] SystemIn the event this information is protected by the Federal Confidentiality of Alcohol and Drug Abuse Patient Records regulations: The Federal rules restrict any use of the information to criminally investigate or prosecute any alcohol or drug abuse patient.[facility] SystemIn the event this information is protected by the Federal Confidentiality of Alcohol and Drug Abuse Patient Records regulations: The Federal rules restrict any use of the information to criminally investigate or prosecute any alcohol or drug abuse patient.[facility] SystemIn the event this information is protected by the Federal Confidentiality of Alcohol and Drug Abuse Patient Records regulations: The Federal rules restrict any use of the information to criminally investigate or prosecute any alcohol or drug abuse patient.[facility] SystemIn the event this information is protected by the Federal Confidentiality of Alcohol and Drug Abuse Patient Records regulations: The Federal rules restrict any use of the information to criminally investigate or prosecute any alcohol or drug abuse patient.[facility] SystemIn the event this information is protected by the Federal Confidentiality of Alcohol and Drug Abuse Patient Records regulations: The Federal rules restrict any use of the information to criminally investigate or prosecute any alcohol or drug abuse patient.[facility] SystemIn the event this information is protected by the Federal Confidentiality of Alcohol and Drug Abuse Patient Records regulations: The Federal rules restrict any use of the information to criminally investigate or prosecute any alcohol or drug abuse patient.[facility] SystemIn the event this information is protected by the Federal Confidentiality of Alcohol and Drug Abuse Patient Records regulations: The Federal rules restrict any use of the information to criminally investigate or prosecute any alcohol or drug abuse patient.[facility] SystemIn the event this information is protected by the Federal Confidentiality of Alcohol and Drug Abuse Patient Records regulations: The Federal rules restrict any use of the information to criminally investigate or prosecute any alcohol or drug abuse patient.[facility] SystemIn the event this information is protected by the Federal Confidentiality of Alcohol and Drug Abuse Patient Records regulations: The Federal rules restrict any use of the information to criminally investigate or prosecute any alcohol or drug abuse patient.[facility] SystemIn the event this information is protected by the Federal Confidentiality of Alcohol and Drug Abuse Patient Records regulations: The Federal rules restrict any use of the information to criminally investigate or prosecute any alcohol or drug abuse patient.[facility] SystemIn the event this information is protected by the Federal Confidentiality of Alcohol and Drug Abuse Patient Records regulations: The Federal rules restrict any use of the information to criminally investigate or prosecute any alcohol or drug abuse patient.[facility] SystemIn the event this information is protected by the Federal Confidentiality of Alcohol and Drug Abuse Patient Records regulations: The Federal rules restrict any use of the information to criminally investigate or prosecute any alcohol or drug abuse patient.[facility] SystemIn the event this information is protected by the Federal Confidentiality of Alcohol and Drug Abuse Patient Records regulations: The Federal rules restrict any use of the information to criminally investigate or prosecute any alcohol or drug abuse patient.[facility] SystemIn the event this information is protected by the Federal Confidentiality of Alcohol and Drug Abuse Patient Records regulations: The Federal rules restrict any use of the information to criminally investigate or prosecute any alcohol or drug abuse patient.[facility] SystemIn the event this information is protected by the Federal Confidentiality of Alcohol and Drug Abuse Patient Records regulations: The Federal rules restrict any use of the information to criminally investigate or prosecute any alcohol or drug abuse patient.[facility] SystemIn the event this information is protected by the Federal Confidentiality of Alcohol and Drug Abuse Patient Records regulations: The Federal rules restrict any use of the information to criminally investigate or prosecute any alcohol or drug abuse patient.[facility] SystemIn the event this information is protected by the Federal Confidentiality of Alcohol and Drug Abuse Patient Records regulations: The Federal rules restrict any use of the information to criminally investigate or prosecute any alcohol or drug abuse patient.[facility] SystemIn the event this information is protected by the Federal Confidentiality of Alcohol and Drug Abuse Patient Records regulations: The Federal rules restrict any use of the information to criminally investigate or prosecute any alcohol or drug abuse patient.[facility] SystemIn the event this information is protected by the Federal Confidentiality of Alcohol and Drug Abuse Patient Records regulations: The Federal rules restrict any use of the information to criminally investigate or prosecute any alcohol or drug abuse patient.[facility] SystemIn the event this information is protected by the Federal Confidentiality of Alcohol and Drug Abuse Patient Records regulations: The Federal rules restrict any use of the information to criminally investigate or prosecute any alcohol or drug abuse patient.[facility] SystemIn the event this information is protected by the Federal Confidentiality of Alcohol and Drug Abuse Patient Records regulations: The Federal rules restrict any use of the information to criminally investigate or prosecute any alcohol or drug abuse patient.[facility] SystemIn the event this information is protected by the Federal Confidentiality of Alcohol and Drug Abuse Patient Records regulations: The Federal rules restrict any use of the information to criminally investigate or prosecute any alcohol or drug abuse patient.[facility] SystemIn the event this information is protected by the Federal Confidentiality of Alcohol and Drug Abuse Patient Records regulations: The Federal rules restrict any use of the information to criminally investigate or prosecute any alcohol or drug abuse patient.[facility] SystemIn the event this information is protected by the Federal Confidentiality of Alcohol and Drug Abuse Patient Records regulations: The Federal rules restrict any use of the information to criminally investigate or prosecute any alcohol or drug abuse patient.[facility] SystemIn the event this information is protected by the Federal Confidentiality of Alcohol and Drug Abuse Patient Records regulations: The Federal rules restrict any use of the information to criminally investigate or prosecute any alcohol or drug abuse patient.[facility] SystemIn the event this information is protected by the Federal Confidentiality of Alcohol and Drug Abuse Patient Records regulations: The Federal rules restrict any use of the information to criminally investigate or prosecute any alcohol or drug abuse patient.[facility] SystemIn the event this information is protected by the Federal Confidentiality of Alcohol and Drug Abuse Patient Records regulations: The Federal rules restrict any use of the information to criminally investigate or prosecute any alcohol or drug abuse patient.[facility] SystemIn the event this information is protected by the Federal Confidentiality of Alcohol and Drug Abuse Patient Records regulations: The Federal rules restrict any use of the information to criminally investigate or prosecute any alcohol or drug abuse patient.[facility] SystemIn the event this information is protected by the Federal Confidentiality of Alcohol and Drug Abuse Patient Records regulations: The Federal rules restrict any use of the information to criminally investigate or prosecute any alcohol or drug abuse patient.[facility] SystemIn the event this information is protected by the Federal Confidentiality of Alcohol and Drug Abuse Patient Records regulations: The Federal rules restrict any use of the information to criminally investigate or prosecute any alcohol or drug abuse patient.[facility] SystemIn the event this information is protected by the Federal Confidentiality of Alcohol and Drug Abuse Patient Records regulations: The Federal rules restrict any use of the information to criminally investigate or prosecute any alcohol or drug abuse patient.[facility] SystemIn the event this information is protected by the Federal Confidentiality of Alcohol and Drug Abuse Patient Records regulations: The Federal rules restrict any use of the information to criminally investigate or prosecute any alcohol or drug abuse patient.[facility] SystemIn the event this information is protected by the Federal Confidentiality of Alcohol and Drug Abuse Patient Records regulations: The Federal rules restrict any use of the information to criminally investigate or prosecute any alcohol or drug abuse patient.[facility] SystemIn the event this information is protected by the Federal Confidentiality of Alcohol and Drug Abuse Patient Records regulations: The Federal rules restrict any use of the information to criminally investigate or prosecute any alcohol or drug abuse patient.[facility] SystemIn the event this information is protected by the Federal Confidentiality of Alcohol and Drug Abuse Patient Records regulations: The Federal rules restrict any use of the information to criminally investigate or prosecute any alcohol or drug abuse patient.[facility] SystemIn the event this information is protected by the Federal Confidentiality of Alcohol and Drug Abuse Patient Records regulations: The Federal rules restrict any use of the information to criminally investigate or prosecute any alcohol or drug abuse patient.[facility] SystemIn the event this information is protected by the Federal Confidentiality of Alcohol and Drug Abuse Patient Records regulations: The Federal rules restrict any use of the information to criminally investigate or prosecute any alcohol or drug abuse patient.[facility] SystemIn the event this information is protected by the Federal Confidentiality of Alcohol and Drug Abuse Patient Records regulations: The Federal rules restrict any use of the information to criminally investigate or prosecute any alcohol or drug abuse patient.[facility] SystemIn the event this information is protected by the Federal Confidentiality of Alcohol and Drug Abuse Patient Records regulations: The Federal rules restrict any use of the information to criminally investigate or prosecute any alcohol or drug abuse patient.[facility] SystemIn the event this information is protected by the Federal Confidentiality of Alcohol and Drug Abuse Patient Records regulations: The Federal rules restrict any use of the information to criminally investigate or prosecute any alcohol or drug abuse patient.[facility] SystemIn the event this information is protected by the Federal Confidentiality of Alcohol and Drug Abuse Patient Records regulations: The Federal rules restrict any use of the information to criminally investigate or prosecute any alcohol or drug abuse patient.[facility] SystemIn the event this information is protected by the Federal Confidentiality of Alcohol and Drug Abuse Patient Records regulations: The Federal rules restrict any use of the information to criminally investigate or prosecute any alcohol or drug abuse patient.[facility] SystemIn the event this information is protected by the Federal Confidentiality of Alcohol and Drug Abuse Patient Records regulations: The Federal rules restrict any use of the information to criminally investigate or prosecute any alcohol or drug abuse patient.[facility] SystemIn the event this information is protected by the Federal Confidentiality of Alcohol and Drug Abuse Patient Records regulations: The Federal rules restrict any use of the information to criminally investigate or prosecute any alcohol or drug abuse patient.[facility] SystemIn the event this information is protected by the Federal Confidentiality of Alcohol and Drug Abuse Patient Records regulations: The Federal rules restrict any use of the information to criminally investigate or prosecute any alcohol or drug abuse patient.[facility] SystemIn the event this information is protected by the Federal Confidentiality of Alcohol and Drug Abuse Patient Records regulations: The Federal rules restrict any use of the information to criminally investigate or prosecute any alcohol or drug abuse patient.[facility] SystemIn the event this information is protected by the Federal Confidentiality of Alcohol and Drug Abuse Patient Records regulations: The Federal rules restrict any use of the information to criminally investigate or prosecute any alcohol or drug abuse patient.[facility] SystemIn the event this information is protected by the Federal Confidentiality of Alcohol and Drug Abuse Patient Records regulations: The Federal rules restrict any use of the information to criminally investigate or prosecute any alcohol or drug abuse patient.[facility] SystemIn the event this information is protected by the Federal Confidentiality of Alcohol and Drug Abuse Patient Records regulations: The Federal rules restrict any use of the information to criminally investigate or prosecute any alcohol or drug abuse patient.[facility] SystemIn the event this information is protected by the Federal Confidentiality of Alcohol and Drug Abuse Patient Records regulations: The Federal rules restrict any use of the information to criminally investigate or prosecute any alcohol or drug abuse patient.[facility] SystemIn the event this information is protected by the Federal Confidentiality of Alcohol and Drug Abuse Patient Records regulations: The Federal rules restrict any use of the information to criminally investigate or prosecute any alcohol or drug abuse patient.[facility] SystemIn the event this information is protected by the Federal Confidentiality of Alcohol and Drug Abuse Patient Records regulations: The Federal rules restrict any use of the information to criminally investigate or prosecute any alcohol or drug abuse patient.[facility] SystemIn the event this information is protected by the Federal Confidentiality of Alcohol and Drug Abuse Patient Records regulations: The Federal rules restrict any use of the information to criminally investigate or prosecute any alcohol or drug abuse patient.[facility] SystemIn the event this information is protected by the Federal Confidentiality of Alcohol and Drug Abuse Patient Records regulations: The Federal rules restrict any use of the information to criminally investigate or prosecute any alcohol or drug abuse patient.[facility] SystemIn the event this information is protected by the Federal Confidentiality of Alcohol and Drug Abuse Patient Records regulations: The Federal rules restrict any use of the information to criminally investigate or prosecute any alcohol or drug abuse patient.[facility] SystemIn the event this information is protected by the Federal Confidentiality of Alcohol and Drug Abuse Patient Records regulations: The Federal rules restrict any use of the information to criminally investigate or prosecute any alcohol or drug abuse patient.[facility] SystemIn the event this information is protected by the Federal Confidentiality of Alcohol and Drug Abuse Patient Records regulations: The Federal rules restrict any use of the information to criminally investigate or prosecute any alcohol or drug abuse patient.[facility] SystemIn the event this information is protected by the Federal Confidentiality of Alcohol and Drug Abuse Patient Records regulations: The Federal rules restrict any use of the information to criminally investigate or prosecute any alcohol or drug abuse patient.[facility] SystemIn the event this information is protected by the Federal Confidentiality of Alcohol and Drug Abuse Patient Records regulations: The Federal rules restrict any use of the information to criminally investigate or prosecute any alcohol or drug abuse patient.[facility] SystemIn the event this information is protected by the Federal Confidentiality of Alcohol and Drug Abuse Patient Records regulations: The Federal rules restrict any use of the information to criminally investigate or prosecute any alcohol or drug abuse patient.[facility] SystemIn the event this information is protected by the Federal Confidentiality of Alcohol and Drug Abuse Patient Records regulations: The Federal rules restrict any use of the information to criminally investigate or prosecute any alcohol or drug abuse patient.[facility] SystemIn the event this information is protected by the Federal Confidentiality of Alcohol and Drug Abuse Patient Records regulations: The Federal rules restrict any use of the information to criminally investigate or prosecute any alcohol or drug abuse patient.[facility] SystemIn the event this information is protected by the Federal Confidentiality of Alcohol and Drug Abuse Patient Records regulations: The Federal rules restrict any use of the information to criminally investigate or prosecute any alcohol or drug abuse patient.[facility] SystemIn the event this information is protected by the Federal Confidentiality of Alcohol and Drug Abuse Patient Records regulations: The Federal rules restrict any use of the information to criminally investigate or prosecute any alcohol or drug abuse patient.[facility] SystemIn the event this information is protected by the Federal Confidentiality of Alcohol and Drug Abuse Patient Records regulations: The Federal rules restrict any use of the information to criminally investigate or prosecute any alcohol or drug abuse patient.[facility] SystemIn the event this information is protected by the Federal Confidentiality of Alcohol and Drug Abuse Patient Records regulations: The Federal rules restrict any use of the information to criminally investigate or prosecute any alcohol or drug abuse patient.[facility] SystemIn the event this information is protected by the Federal Confidentiality of Alcohol and Drug Abuse Patient Records regulations: The Federal rules restrict any use of the information to criminally investigate or prosecute any alcohol or drug abuse patient.[facility] SystemIn the event this information is protected by the Federal Confidentiality of Alcohol and Drug Abuse Patient Records regulations: The Federal rules restrict any use of the information to criminally investigate or prosecute any alcohol or drug abuse patient.[facility] SystemIn the event this information is protected by the Federal Confidentiality of Alcohol and Drug Abuse Patient Records regulations: The Federal rules restrict any use of the information to criminally investigate or prosecute any alcohol or drug abuse patient.[facility] Reason for Visit (unrecogniz ed section and content) Reason Onset Date Comments Refill Request 03/31/2022 Reason Onset Date Comments Refill Request 04/21/2022 Reason Comments Multiple Missed Appointment Reason Comments 6 Month Exam Specialty Diagnoses / Procedures Referred By Contac t Referred To Contact Family Practice / FAMILY MEDICINE Diagnoses 6 mo follow up /meds Procedures 4C MD Valeriy Ortega Rayanne, PA-C [address] [place] [address] Referral ID Status Reason Start Date Expiration Date Visits Re quested Visits Authorized [id number] Closed 05/05/2022 11/06/2022 1 1 Reason Comments [...] RSPSE SPMTRY PRE&POST-BRNCDILAT ADMN Stephani Crooks PA-C [address] [place] [address] [facility] [address] [place] [address] Referral ID Status Reason Start Date Expiration Date V isits Requested Visits Authorized [id number] Closed Auto-Generate d Referral 05/07/2022 11/06/2022 1 1 Reason Comments Social Work Services Reason Comments Recheck Specialty Diagnoses / Procedures Referred By Contac t Referred To Contact Family Practice / FAMILY MEDICINE Diagnoses 4 weeks follow up Procedures 4C MD Brigitte Ortega Jeffrey A, MD [address] [place] [address] Referral ID Status Reason Start Date Expiration Date Visits Re quested Visits Authorized [id number] Closed 05/24/2022 11/06/2022 1 1 Reason Comments [facility] social contact worker verbal order reques t Reason Comments [...] follow up htn/edema/depression med check Procedures 4C EST Leno Briggs MD [address] [place] [address] Leno Briggs MD [address] [place] [address] Referral ID Status Reason Start Date Expiration Date Visits Re quested Visits Authorized [id number] Closed 07/05/2022 11/06/2022 1 1 Reason Comments [...] type Procedures CONSULT TO URO GYNECOLOGY OFFICE/OUTPATIENT [facility] 60-74 MINUTES Madalyn Degroot APRN.[facility] [address] [place] [address] Referral ID Status Reason Start Date Expiration Date Visits Requested Visits Authorized [id number] Pending Review PCP Requested Referral Auto-Generate d Referral 12/28/2022 12/28/2023 1 1 Reason Onset Date Comments Refill Request 01/05/2023 Reason Comments vaginal pain Reason Onset Date Comments Refill Request 01/18/2023 Reason Comments Consult Colovesical fistula Specialty Diagnoses / Procedures Referred By Contac t Referred To Contact Colon and Rectal Surgery Diagnoses Colovesical fistula Procedures CONSULT TO COLO-RECTAL SURGERY OFFICE/OUTPATIENT NEW HIGH MDM 60-74 MINUTES Eufemia Chapa, LAST REMODELER REPAIRER.AIRCRAFT ENGINEER [address] [place] [address] Referral ID Status Reason Start Date Expiration Date Visits Requested Visits Authorized [id number] Pending Review PCP Requested Referral 01/06/2023 01/06/2024 [...] dementia Procedures geriatric assessment Stephani Crooks [address] [place] [address] [facility] [address] [phone] Referral ID Status Reason Start Date Expiration Date V isits Requested Visits Authorized [id number] Pending Review 03/16/2023 09/12/2023 1 1 Reason Comments New Patient Evaluation for colov esical fistula Other Patient accompanied by Gail sister, Mariela daughter Reason Onset Date Comments Refill Request 04/10/2023 Specialty Diagnoses / Procedures Referred By Contac t Referred To Contact Radiology Diagnoses Memory loss Procedures CT head wo IV contrast Shantal Serrano, LAST REMODELER REPAIRER - AIRCRAFT ENGINEER [address] [facility] [address] [place] [address] Referral ID Status Reason Start Date Expiration Date Visits Re quested Visits Authorized [id number] Closed 04/05/2023 10/02/2023 1 1 Specialty Diagnoses / Procedures Referred By Contac t Referred To Contact 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] Procedures SD COLONOSCOPY FLX DX W/COLLJ SPEC WHEN PFRMD COLONOSCOPY Samantha Nava MD [address] [place] [address] [facility] [address] [place] [address] Referral ID Status Reason Start Date Expiration Date Visits Re quested Visits Authorized [id number] 1 1 Reason Comments Memory Loss Reason Comments Results Best # [phone]( Mariela, daughter)Discuss results of colonoscopy done 05/25/23 Reason Comments Med Refill Reason Comments Recheck Follow up 6 months Reason Onset Date Comments Med Refill 07/05/2023 Reason Onset Date Comments Refill Request 08/23/2023 Reason Onset Date Comments Cancelled Appointment 08/16/2023 Cancel miles ointment 10.10.23 2:45pm Reason Onset Date Comments change appointment 09/14/2023 Care Teams (unrecognized sec tion and content) Maintenance Superintendent Relationship Specialty Start Date End Date Leno Briggs MD [address] [place] [address] PCP - General Family Practice 11/25/16 Maintenance Superintendent Relationship Specialty Start Date End Date Leno Briggs MD [address] [place] [address] PCP - General Family Practice 11/25/16 Maintenance Superintendent Relationship Specialty Start Date End Date Leno Briggs MD [address] [place] [address] PCP - General Family Practice 11/25/16 Maintenance Superintendent Relationship Specialty Start Date End Date Leno Briggs MD [address] [place] [address] PCP - General Family Practice 11/25/16 Maintenance Superintendent Relationship Specialty Start Date End Date Leno Briggs MD [address] [place] [address] PCP - General Family Practice 11/25/16 Maintenance Superintendent Relationship Specialty Start Date End Date Leno Briggs MD [facility] [place] [address] PCP - General Family Practice 11/25/16 Maintenance Superintendent Relationship Specialty Start Date End Date Leno Briggs MD [address] [facility] [place] [address] PCP - General Family Practice 11/25/16 Maintenance Superintendent Relationship Specialty Start Date End Date Leno Briggs MD [address] [facility] [place] [address] PCP - General Family Practice 11/25/16 Maintenance Superintendent Relationship Specialty Start Date End Date Leno Briggs MD [address] [facility] [place] [address] PCP - General Family Practice 11/25/16 Maintenance Superintendent Relationship Specialty Start Date End Date Leno Briggs MD [facility] [place] [address] PCP - General Family Practice 11/25/16 Maintenance Superintendent Relationship Specialty Start Date End Date Leno Briggs MD [address] [facility] [place] [address] PCP - General Family Practice 11/25/16 Maintenance Superintendent Relationship Specialty Start Date End Date Leno Briggs MD [address] [facility] [place] [address] PCP - General Family Practice 11/25/16 Maintenance Superintendent Relationship Specialty Start Date End Date Leno Briggs MD [address] [facility] [place] [address] PCP - General Family Practice 11/25/16 Maintenance Superintendent Relationship Specialty Start Date End Date Leno Briggs MD [facility] [place] [address] PCP - General Family Practice 11/25/16 Maintenance Superintendent Relationship Specialty Start Date End Date Leno Briggs MD [facility] [place] [address] PCP - General Family Practice 11/25/16 Maintenance Superintendent Relationship Specialty Start Date End Date Leno Briggs MD [address] [facility] [place] [address] PCP - General Family Practice 11/25/16 Maintenance Superintendent Relationship Specialty Start Date End Date Leno Briggs MD [address] [facility] [place] [address] PCP - General Family Practice 11/25/16 Maintenance Superintendent Relationship Specialty Start Date End Date Leno Briggs MD [facility] [place] [address] PCP - General Family Practice 11/25/16 Maintenance Superintendent Relationship Specialty Start Date End Date Leno Briggs MD [address] [place] [address], [place] [address] PCP - General Family Practice 11/25/16 Maintenance Superintendent Relationship Specialty Start Date End Date Leno Briggs MD [facility] [place] [address] PCP - General Family Practice 11/25/16 Maintenance Superintendent Relationship Specialty Start Date End Date Leno Briggs MD [facility] [place] [address] PCP - General Family Medicine 11/25/16 Maintenance Superintendent Relationship Specialty Start Date End Date Leno Briggs MD [facility] [place] [address] PCP - General Family Medicine 11/25/16 Maintenance Superintendent Relationship Specialty Start Date End Date Lneo Briggs MD [facility] [place] [address] PCP - General Family Medicine 11/25/16 Maintenance Superintendent Relationship Specialty Start Date End Date Leno Briggs MD [facility] [place] [address] PCP - General Family Medicine 11/25/16 Maintenance Superintendent Relationship Specialty Start Date End Date Leno Briggs MD [address] [facility] [place] [address] PCP - General Family Medicine 11/25/16 Maintenance Superintendent Relationship Specialty Start Date End Date Leno Briggs MD [address] [facility] [place] [address] PCP - General Family Medicine 11/25/16 Maintenance Superintendent Relationship Specialty Start Date End Date Leno Briggs MD [facility] [place] [address] PCP - General Family Medicine 11/25/16 Maintenance Superintendent Relationship Specialty Start Date End Date Leno Briggs MD [address] [place] [address], [place] [address] PCP - General Family Medicine 11/25/16 Maintenance Superintendent Relationship Specialty Start Date End Date Leno Briggs MD [facility] [place] [address] PCP - General Family Medicine 11/25/16 Maintenance Superintendent Relationship Specialty Start Date End Date Leno Briggs MD [facility] [place] [address] PCP - General Family Medicine 11/25/16 Maintenance Superintendent Relationship Specialty Start Date End Date Leno Briggs MD [address] [facility] [place] [address] PCP - General Family Medicine 11/25/16 Maintenance Superintendent Relationship Specialty Start Date End Date Leno Briggs MD [facility] [place] [address] PCP - General Family Medicine 11/25/16 Maintenance Superintendent Relationship Specialty Start Date End Date Leno Briggs MD [address] [place] [address], [place] [address] PCP - General Family Medicine 11/25/16 Maintenance Superintendent Relationship Specialty Start Date End Date Leno Briggs MD [address] [facility] [place] [address] PCP - General Family Medicine 11/25/16 Maintenance Superintendent Relationship Specialty Start Date End Date Leno Briggs MD [address] [place] [address] PCP - General Family Medicine 11/25/16 Maintenance Superintendent Relationship Specialty Start Date End Date Leno Brgigs MD [facility] [place] [address] PCP - General Family Medicine 11/25/16 Maintenance Superintendent Relationship Specialty Start Date End Date Leno Briggs MD [facility] [place] [address] PCP - General Family Medicine 11/25/16 Maintenance Superintendent Relationship Specialty Start Date End Date Leno Briggs MD [address] [place] [address] PCP - General Family Medicine 11/25/16 Maintenance Superintendent Relationship Specialty Start Date End Date Leno Briggs MD [address] [place] [address] PCP - General Family Medicine 11/25/16 Maintenance Superintendent Relationship Specialty Start Date End Date Leno Briggs MD [address] [place] [address] PCP - General Family Medicine 11/25/16 Maintenance Superintendent Relationship Specialty Start Date End Date Leno Briggs MD [address] [place] [address] PCP - General Family Medicine 11/25/16 Maintenance Superintendent Relationship Specialty Start Date End Date Leno Briggs MD [address] [place] [address] PCP - General Family Medicine 11/25/16 Maintenance Superintendent Relationship Specialty Start Date End Date Leno Briggs MD [address] [place] [address] PCP - General Family Medicine 11/25/16 Maintenance Superintendent Relationship Specialty Start Date End Date Leno Briggs MD [address] [place] [address] [place] [address] PCP - General 04/01/19 Maintenance Superintendent Relationship Specialty Start Date End Date Leno Briggs MD [address] [place] [address] [place] [address] PCP - General 04/01/19 Maintenance Superintendent Relationship Specialty Start Date End Date Leno Briggs MD [address] [place] [address] [place] [address] PCP - General 04/01/19 Maintenance Superintendent Relationship Specialty Start Date End Date Leno Briggs MD [address] [address] [place] [address] PCP - General 04/01/19 Maintenance Superintendent Relationship Specialty Start Date End Date Leno Briggs MD [address] [address] [place] [address] PCP - General 04/01/19 Maintenance Superintendent Relationship Specialty Start Date End Date Leno Briggs MD [address] [place] [address] [place] [address] PCP - General 04/01/19 Maintenance Superintendent Relationship Specialty Start Date End Date Leno Briggs MD [address] [place] [address] PCP - General 04/01/19 Maintenance Superintendent Relationship Specialty Start Date End Date Leno Briggs MD [address] [place] [address] PCP - General Family Medicine 11/25/16 Maintenance Superintendent Relationship Specialty Start Date End Date Leno Briggs MD [address] [place] [address] PCP - General Family Medicine 11/25/16 Maintenance Superintendent Relationship Specialty Start Date End Date Leno Briggs MD [address] [place] [address] PCP - General Family Medicine 11/25/16 Maintenance Superintendent Relationship Specialty Start Date End Date Leno Briggs MD [address] [place] [address] PCP - General Family Medicine 11/25/16 Maintenance Superintendent Relationship Specialty Start Date End Date Leno Briggs MD [address] [place] [address] PCP - General 04/01/19 Maintenance Superintendent Relationship Specialty Start Date End Date Leno Briggs MD [address] [address] [place], [place] [id number] PCP - General 04/01/19 Maintenance Superintendent Relationship Specialty Start Date End Date Leno Briggs MD [address] [place] [address] PCP - General Family Medicine 11/25/16 Maintenance Superintendent Relationship Specialty Start Date End Date Leno Briggs MD [address], [place] [id number] PCP - General Family Medicine 11/25/16 Maintenance Superintendent Relationship Specialty Start Date End Date Leno Briggs MD [address], [place] [id number] PCP - General Family Medicine 11/25/16 Scheduled [...] BE BASED ON THE PRIMARY CLINICAL RECORDS. [facility] [employer] [facility]. provides no warranty or guarantee of the accuracy or completeness of information in this document.
[2023-12-02 20:03] LABS: Differential Indicated SCAN CRITERIA MET
[2023-12-02 20:09] LABS: Partial Thromboplast Time 29.5 Seconds (24.1-36.2); Prothrombin Time (Protime)PT. 13.3 SECONDS (11.7-14.9)
[2023-12-02 20:14] LABS: Differential Comment SCANNED
[2023-12-02 20:15] LABS: AST(SGOT) 23 U/L (15-37); Alanine Aminotransfer ALT/SGPT 27 U/L (13-56); Albumin, Serum 3.1 g/dL (3.2-5.0); Alkaline Phosphatase 105 U/L (45-117); Anion Gap 1 (5-15); BUN 16 mg/dL (7-18); BUN/Creat Ratio 14.3 RATIO (10-20); Bilirubin, Direct 0.18 mg/dL (0.00-0.30); Calcium,Total 9.8 mg/dL (8.5-10.1); Chloride 108 mmol/L (98-107); Creatinine, Serum 1.12 mg/dL (0.55-1.02); EST Glomerular Filtration Rate 49 mL/min (>60); Est Glom Filt Rate - Afr Amer 60 mL/min (>60); Estimated Creatinine Clearance 53.32 ml/min; Globulin 3.6 g/dL (2.2-4.2); Glucose 110 mg/dL (74-106); Potassium 4.1 mmol/L (3.5-5.1); Protein, Total 6.7 g/dL (6.4-8.2); Sodium Level 144 mmol/L (136-145)
[2023-12-02 20:18] LABS: Squamous Epithelial Cells - UA 0 SEEN /hpf (5-10)
[2023-12-02 20:19] LABS: Color, Urine Red (Yellow); Glucose, Dipstick Normal (Normal); Ketone-Dipstick Negative (Negative); Leukocyte Esterase-Dipstick 500 /ul (Negative); Nitrite-Dipstick Positive (Negative); Occult Blood-Urine 250 /ul (Negative); Protein-Dipstick 100 mg/dl (Negative); Urine Clarity Cloudy (Clear); Urine Urobilinogen 8 mg/dl (Normal)
[2023-12-02 20:20] LABS: Urine Bilirubin Dipstick 6 mg/dL (Negative)
[2023-12-02 20:26] LABS: Red Blood Cells-Urine > 100 SEEN /hpf (0-5); White Blood Cells >100 SEEN /hpf (0-5)
[2023-12-02 20:27] LABS: Bacteria RARE /hpf (None Seen); Mucous, Urine RARE /hpf (<or=2+)
[2023-12-02 20:41] LABS: Lactic Acid 1.1 mmol/L (0.4-1.9)
[2023-12-02 20:41] LABS: Allen Test Positive; Base Excess 8 mmol/L (-2 to +2); Bicarbonate 33.6 mmol/L (22-26); Blood Gas Specimen Type ART; Mode Not entered; O2 Delivery Device Cannula; PO2 65 mmHG (75-100); SITE R Radial; SO2 90 % (95-99); Total Carbon Dioxide 36 mmol/L; pCO2 63.2 mmHg (35-45); pH 7.33 (7.35-7.45)
[2023-12-02] MEDS: Ceftriaxone 1 GM/50 ML BAG IV (20:46)
--- NOTE | 2023-12-02 21:28 | EX.ED.DYSGE1 ---
HPI History of Present Illness Chief Complaint: Mental Status Change Informant: family Narrative Narrative: Patient presents secondary to increased and continued confusion with intermittent threats to hurt herself. Patient was admitted to the hospital at the very beginning of the year with COVID and respiratory failure. She is a history of dementia but family had reported that there had only been some intermittent repeating of questions and she really was doing quite well living with family. After her hospitalization she went to a local [place] [facility] for rehab and strengthening. Daughter states that she is been back to the ER 2 or 3 times since her discharge with confusion and does not doing well. She apparently was at [facility] 2 days ago and diagnosed with a UTI. She was started on cefdinir. In spite of that she continues to have confusion with intermittent statements that she wants to hang herself with her oxygen tubing. They report that she is intermittently scratching her face and then accusing staff of hurting her. 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 When I had seen the patient previously this was discussed with daughters and they were advised that she was not a surgical candidate and would just need to be treated with antibiotics when this occurred. Daughter did ensure tonight that I was aware that she is a DNR Comfort Care arrest with no intubation. [facility] Medical History Altered mental status Arthritis CHF (congestive heart failure) Chronic back pain Colovesical fistula COPD (chronic obstructive pulmonary disease) COVID-19 Dementia with mood disturbance Diabetes DJD (degenerative joint disease) High cholesterol Hypertension Interstitial cystitis Melanoma TACO (obstructive sleep apnea) Pulmonary hypertension Pulmonary nodule Respiratory failure Stage 3a chronic kidney disease (CKD) UTI (urinary tract infection) Home Medications albuterol sulfate 2.5 mg/3 mL (0.083 %) solution for nebulization 2.5 mg inhalation Q6H PRN PRN Wheezing 01/14/18 [History Last Taken Unknown] aspirin 81 mg chewable tablet 81 mg PO DAILY@0800 01/14/18 [History Last Taken Unknown] atorvastatin 40 mg tablet 40 mg PO QHS 01/14/18 [History Last Taken Unknown] furosemide 20 mg tablet 20 mg PO BIDCM 01/14/18 [History Last Taken Unknown] donepezil 10 mg tablet 10 mg PO QHS 11/06/23 [History Last Taken Unknown] mirtazapine 7.5 mg tablet 7.5 mg PO QHS depression 11/06/23 [History Last Taken Unknown] sertraline 50 mg tablet 50 mg PO Q24H 11/06/23 [History Last Taken Unknown] acetaminophen 325 mg tablet 650 mg (2 x 325 mg) PO Q4H PRN PRN Fever, pain 1-10/10 #0 tabs 11/21/23 [Rx Last Taken Unknown] ipratropium 0.5 mg-albuterol 3 mg (2.5 mg base)/3 mL nebulization soln 3 ml inhalation Q6HWA.RT #1 mL 11/21/23 [Rx Last Taken Unknown] lorazepam 1 mg tablet 1 mg PO Q6H PRN PRN Anxiety/Agitation #8 tabs 11/21/23 [Rx Last Taken Unknown] menthol 0.44 %-zinc oxide 20.6 % topical ointment (Calmoseptine) 1 applic topical 4X/DAY #0 grams 11/21/23 [Rx Last Taken Unknown] miconazole nitrate 2 % topical powder (Desenex) 1 applic topical TID #0 grams 11/21/23 [Rx Last Taken Unknown] olanzapine 2.5 mg tablet 2.5 mg PO BID #0 tabs 11/21/23 [Rx Last Taken Unknown] pantoprazole 40 mg tablet,delayed release 40 mg PO DAILY GERD #0 tabs 11/21/23 [Rx Last Taken Unknown] potassium chloride 20 mEq tablet,extended release(part/cryst) 40 meq (2 x 20 mEq) PO DAILYCM #0 tabs 11/21/23 [Rx Last Taken Unknown] vancomycin 25 mg/mL oral solution (Firvanq) 125 mg (5 mL) PO Q6 #0 mL 11/21/23 [Rx Last Taken Unknown] cefdinir 300 mg capsule 300 mg PO BID 12/02/23 [History Last Taken Unknown] haloperidol 2 mg tablet 2 mg PO BID acute psychosis 12/02/23 [History Last Taken Unknown] hydrocodone-acetaminophen 5-325mg 5mg-325mg 1 tab PO Q8H PRN pain 12/02/23 [History Last Taken Unknown] olanzapine 5 mg tablet 5 mg PO BID schizophrenia 12/02/23 [History Last Taken Unknown] phenazopyridine 100 mg tablet 100 mg PO Q8H 12/02/23 [History Last Taken Unknown] Allergy/AdvReac Type Severity Reaction Status Date / Time Iodinated Contrast Media Allergy Other Verified 12/02/23 19:03 [DYEE] morphine AdvReac Shortness Verified 12/02/23 19:03 of breath tramadol [From Ultram] AdvReac Other Verified 12/02/23 19:03 trazodone AdvReac Other Verified 12/02/23 19:03 Family History Mother Hypertension Father CVA (cerebral vascular accident) Hypertension Diabetes Surgical History History of cholecystectomy History of left knee replacement Social History household members: children Smoking Status: Former smoker how long ago did patient quit smoking: Quit ~ 27 yrs prior, smoked 4 ppd since age 19 until quit. alcohol intake: never substance use type: does not use ROS ROS ED ROS Narrative Patient sleeping comfortably when I enter the room. She awakens when family enters the room. She denies any complaints at this time and states right now she feels fine. Review of Systems ROS Unobtainable: due to mental condition EXAM Physical Exam Const Vital Signs: 12/02/23 18:56 12/02/23 20:03 12/02/23 21:00 Temperature 96.5 F L 98.7 F 98.1 F Temperature Source Temporal Oral Oral Pulse Rate 94 90 82 Respiratory Rate 18 18 21 H Blood Pressure 144/122 H 140/62 H 124/78 H Blood Pressure Mean 129 88 93 Pulse Ox 95 94 92 Oxygen Delivery Method Room Air Nasal Cannula Nasal Cannula Oxygen Flow Rate (L/min) 2 2 12/02/23 19:23 12/02/23 19:30 12/02/23 19:40 Temperature Temperature Source Pulse Rate 83 82 86 Respiratory Rate 21 H 18 28 H Blood Pressure 123/45 H Blood Pressure Mean 69 Pulse Ox 99 99 99 Oxygen Delivery Method Oxygen Flow Rate (L/min) 12/02/23 19:45 12/02/23 19:50 12/02/23 20:00 Temperature Temperature Source Pulse Rate 85 80 89 Respiratory Rate 18 26 H 20 H Blood Pressure 140/62 H 140/62 H Blood Pressure Mean 85 81 Pulse Ox 98 99 98 Oxygen Delivery Method Oxygen Flow Rate (L/min) 12/02/23 20:10 12/02/23 20:15 12/02/23 20:26 Temperature Temperature Source Pulse Rate 84 86 Respiratory Rate 27 H Blood Pressure 129/118 H Blood Pressure Mean 124 Pulse Ox 98 97 Oxygen Delivery Method Oxygen Flow Rate (L/min) 12/02/23 20:30 12/02/23 20:40 12/02/23 20:45 Temperature Temperature Source Pulse Rate 90 86 86 Respiratory Rate 33 H 22 H 22 H Blood Pressure 130/62 H 139/96 H Blood Pressure Mean 79 108 Pulse Ox 2 92 Oxygen Delivery Method Nasal Cannula Oxygen Flow Rate (L/min) 12/02/23 20:50 12/02/23 21:00 12/02/23 21:10 Temperature Temperature Source Pulse Rate 87 82 76 Respiratory Rate 19 H 21 H 25 H Blood Pressure 124/78 H Blood Pressure Mean 92 Pulse Ox 90 92 91 Oxygen Delivery Method Nasal Cannula Oxygen Flow Rate (L/min) 2 Positive obese Nutritional Appearance: obese HEENT Reports moist mucous membranes Eyes EOMs intact bilaterally Chest Wall inspection of chest normal and palpation of chest normal Resp normal respiratory effort and clear to auscultation bilaterally Cardio regular rate and regular rhythm GI non-tender Auscultation: normoactive bowel sounds Palpation: soft Extremity normal to inspection Neuro Neuro Narrative: Patient opens eyes to speak with family. When asked how she is feeling she states that she feels pretty well right now and was sleeping comfortably. Closes her eyes and falls back to sleep without repeated stimulation. Patient is observed moving all 4 extremities. MDM MDM MDM Narrative Medical decision making narrative: Patient's previous visit is reviewed. IV line initiated. Labwork obtained to evaluate for leukocytosis, anemia, and electrolyte derangement. EKG obtained to evaluate for cardiac arrhythmia/ischemia. CT scan of the head obtained to ensure no acute abnormalities. Urinalysis obtained to evaluate for infection/hematuria. ABG obtained as patient did have problems with CO2 retention previously. History & Record Review Discussion w/independent historian: Family Additional record(s) reviewed:: Prior inpatient record, Prior ED visit and Prior labs Lab Data Attestation: I reviewed the patient's lab results. Labs: Laboratory Results - last 24 hr 12/02/23 12/02/23 19:14 20:08 WBC 6.0 RBC 4.84 Hgb 10.8 L Hct 40.1 MCV 82.9 MCH 22.3 L MCHC 26.9 L RDW Std Deviation 59.7 H RDW Coeff of Esvin 20.3 H Plt Count 147 L MPV 11.2 Immature Gran % (Auto) 0.200 Neut % (Auto) 62.0 Lymph % (Auto) 15.5 L Schuyler % (Auto) 11.1 H Eos % (Auto) 10.5 H Baso % (Auto) 0.7 Absolute Neuts (auto) 3.7 Absolute Lymphs (auto) 0.93 Nucleated RBC % 0 Differential Comment SCANNED PT 13.3 INR 1.0 APTT 29.5 Sodium 144 Potassium 4.1 Chloride 108 H Carbon Dioxide 35.0 H Anion Gap 1 L BUN 16 Creatinine 1.12 H Estim Creat Clear Calc 53.32 Est GFR (MDRD) Af Amer 60 Est GFR (MDRD) Non-Af 49 L BUN/Creatinine Ratio 14.3 Glucose 110 H Lactic Acid 1.1 Calcium 9.8 Total Bilirubin 0.60 Direct Bilirubin 0.18 AST 23 ALT 27 Alkaline Phosphatase 105 Total Protein 6.7 Albumin 3.1 L Globulin 3.6 Urine Color Red Urine Clarity Cloudy Urine pH 5.0 Ur Specific [place] 1.030 Urine Protein 100 H Urine Glucose (UA) Normal Urine Ketones Negative Urine Occult Blood 250 H Urine Nitrite Positive H Urine Bilirubin 6 H Urine Urobilinogen 8 H Ur Leukocyte Esterase 500 H Urine RBC > 100 SEEN Urine WBC >100 SEEN Ur Squamous Epith Cells 0 SEEN Urine Bacteria RARE Urine Mucus RARE ABG Data ABG results: ABG 12/02/23 20:38 Specimen Type ART Sample Site R Radial pH 7.33 L Bicarbonate Actual 33.6 H Total CO2 36 Base Excess 8 H O2 Saturation 90 L O2 % 1.0 ABG pCO2 63.2 H ABG pO2 65 L [place] Test Positive O2 Delivery Device Cannula Vent Mode Not entered Radiography Diagnostic Testing: Clinical Impression(s) from Imaging Studies Brain CT 12/02/23 19:44 IMPRESSION: Involutional changes, otherwise normal unenhanced CT scan of the brain. Sequela of sinus disease as described. Electronically Signed: Susanna Elliott MD at 20:54 EST , EKG Initial EKG: Attestation: I personally reviewed and interpreted this EKG as follows: Interpretation: Sinus Rhythm (Sinus 87 with no acute ischemia.) Treatment and Re-Evaluation :: CBC was normal white count 6.0 with normal differential. Hemoglobin is 10.8. Coags are unremarkable. Chemistry studies reveal normal potassium at 4.1. BUN is 16 and creatinine is 1.12. Glucose is 110. Lactic acid is normal at 1.1. LFTs are unremarkable. Urinalysis is positive for nitrites with greater than 100 RBCs and greater than 100 white cells. Rare bacteria are noted. CT scan of the head reveals chronic changes with no acute findings. EKG is sinus rhythm with no acute ischemia. ABG reveals a pH 7.33, bicarb 33.6, pCO2 of 63.2, pO2 of 65. 90% O2 saturation noted. This is improved when compared to prior ABG. Urine culture has been ordered. Patient is given a dose of IV Rocephin. After discussion with daughter she is concerned that with the patient's UTI she typically will require IV antibiotics to clear. She is also concerned that there may be some interaction with her medications that are not being appropriately addressed at [facility]. I will speak with hospitalist regarding admission for IV antibiotics and further treatment. Discharge Plan Triage Chief Complaint: Mental Status Change Other Complaint: Suicidal ED Provider: Sun White Dx/Rx/DC Orders Clinical Impression: UTI (urinary tract infection), Confusion Prescriptions: No Action atorvastatin 40 MG tablet 40 mg PO QHS albuterol sulfate 2.5 MG/3 ML solution for nebulization 2.5 mg inhalation Q6H PRN PRN (Reason: Wheezing) aspirin 81 MG tablet,chewable 81 mg PO DAILY@0800 furosemide 20 MG tablet 20 mg PO BIDCM cefdinir 300 mg capsule 300 mg PO BID Patient Comments: for 5 days; started 11/30/23 haloperidol 2 mg tablet 2 mg PO BID Patient Comments: for 7 day; end date 12/08/2023 hydrocodone-acetaminophen 5-325 mg tablet 1 tab PO Q8H PRN (Reason: pain) Patient Comments: take 1 tablet by mouth every 8 hours if needed olanzapine 5 mg tablet 5 mg PO BID phenazopyridine 100 mg tablet 100 mg PO Q8H Patient Comments: END DATE 12/04/2023 donepezil 10 mg tablet 10 mg PO QHS mirtazapine 7.5 mg tablet 7.5 mg PO QHS sertraline 50 mg tablet 50 mg PO Q24H acetaminophen 325 mg Tablet 650 mg PO Q4H PRN PRN (Reason: Fever, pain 1-08/16) Qty: 0 0RF ipratropium-albuterol 0.5 mg-3 mg(2.5 mg base)/3 mL Solution For Nebulization 3 ml inhalation Q6HWA.RT Qty: 1 0RF miconazole nitrate [Desenex] 2 % Powder 1 applic topical TID Qty: 0 0RF Protocol: *Topical Application Instructions APPLICATION INSTRUCTIONS: apply to abdominal and breasts folds Patient Comments: to breast for yeast infection olanzapine 2.5 mg Tablet 2.5 mg PO BID Qty: 0 0RF potassium chloride 20 mEq Tablet,Er Particles/Crystals 40 meq PO DAILYCM Qty: 0 0RF pantoprazole 40 mg Tablet,Delayed Release (Dr/Ec) 40 mg PO DAILY Qty: 0 0RF lorazepam 1 mg Tablet 1 mg PO Q6H PRN PRN (Reason: Anxiety/Agitation) Qty: 8 0RF menthol-zinc oxide [Calmoseptine] 0.44-20.6 % Ointment 1 applic topical 4X/DAY Qty: 0 0RF Protocol: *Topical Application Instructions APPLICATION INSTRUCTIONS: apply to affected region vancomycin [Firvanq] 25 mg/mL Recon Soln 125 mg PO Q6 Qty: 0 0RF Rx Instructions: continue for 10 days-stop on 12/01/23 Primary Care Provider: Leno Son Referrals: Leno Son MD [Primary Care Provider] - Disposition Disposition: Acute Care [facility]
--- NOTE | 2023-12-02 21:49 | HP.PCM.HOS_ITS ---
HPI - General General Date of Admission: 12/02/23 Date of Service: 12/02/23 Chief Complaint: Continued confusion, self harm threats. HPI Narrative The patient is an 83 y/o F w/ PMHx: Chronic bladder colonic fistula and will get frequent UTIs, Morbid obesity, Dementia unclear type with mood disturbance, Anxiety and Depression/Schizophrenia. CKD stage IIIa, HTN, HLD, TACO on CPAP, Anxiety and Depression, HFpEF, Diabetes mellitus type II, COPD, recent prolonged admission 11/06/23-11/21/23 secondary to acute hypoxic and hypercarbic respirato ry failure secondary to underlying COVID-19 infection with superimposed right lower lobe bacterial community-acquired pneumonia as well as acute diastolic heart failure treated with remdesivir and IV Decadron with associated acute encephalopathy complicated by underlying chronic dementia with concurrent stool positive C. difficile without detectable toxin with given loose stools treatment of oral vancomycin secondary to diarrhea who now re-presents to the [facility] ED on 12/02/23 with history of increased and continued confusion with intermittent threats to hurt herself initially transition to rehab even returning to the ER at least 2-3 times since discharge secondary to confusion with hospitalization at [place] 2 days prior with diagnosis of UTI at that time started on cefdinir with ongoing confusion and intermittent statements reportedly of wanting to hang yourself with her oxygen tubing constantly scratching her face and then reportedly saying staff is trying to hurt her and responsible for these injuries prompting return to ED. Workup in the ED included T96.5, heart 94, BP 144/122, respiratory rate 18, 95% on room air initially eventually placed on 2 L nasal cannula with most recent vital signs heart rate 82, BP 124/78, respiratory rate 21, 92% on 2 L nasal cannula, CBC with WBC 6.0, hemoglobin 10.8, MCV 82.9, platelet 147 without marked shift, unremarkable coags, ABG with pH 7.33, bicarb 33.6, O2 saturation 90%, pCO2 63.2, pO2 65, CMP with chloride 108, Comvax at 35, BUN/creatinine 16/1.12, glucose 110 otherwise not marked appearing, lactic acid 1.1, urine noted to be cloudy and red in appearance, specific gravity elevated 1.030, protein 100, occult blood 250, positive nitrite, bilirubin 6, urobilinogen 6, leukocyte Estrace 500 with greater than 100 urine RBCs and WBCs with rare bacteria noted with urine culture pending, chest x-ray with involutional changes with sequelae of sinus disease with no acute intracranial findings. In the ED patient ministered Rocephin 1 g IV x 1. Review of prior urine culture 11/06/2023 with E. coli and Pseudomonas although E. coli 80,000- 100,000 and Pseudomonas less than at thousand thus possibly component of colonization given history with significant minor sensitivity noted. PENDING SALE TO [facility] Medical History Altered mental status Arthritis CHF (congestive heart failure) Chronic back pain Colovesical fistula COPD (chronic obstructive pulmonary disease) COVID-19 Dementia with mood disturbance Diabetes DJD (degenerative joint disease) High cholesterol Hypertension Interstitial cystitis Melanoma TACO (obstructive sleep apnea) Pulmonary hypertension Pulmonary nodule Respiratory failure Stage 3a chronic kidney disease (CKD) UTI (urinary tract infection) Home Medications albuterol sulfate 2.5 mg/3 mL (0.083 %) solution for nebulization 2.5 mg inhalation Q6H PRN PRN Wheezing 01/14/18 [History Last Taken Unknown] aspirin 81 mg chewable tablet 81 mg PO DAILY@0800 01/14/18 [History Last Taken Unknown] atorvastatin 40 mg tablet 40 mg PO QHS 01/14/18 [History Last Taken Unknown] furosemide 20 mg tablet 20 mg PO BIDCM 01/14/18 [History Last Taken Unknown] donepezil 10 mg tablet 10 mg PO QHS 11/06/23 [History Last Taken Unknown] mirtazapine 7.5 mg tablet 7.5 mg PO QHS depression 11/06/23 [History Last Taken Unknown] sertraline 50 mg tablet 50 mg PO Q24H 11/06/23 [History Last Taken Unknown] acetaminophen 325 mg tablet 650 mg (2 x 325 mg) PO Q4H PRN PRN Fever, pain 1- 08/16 #0 tabs 11/21/23 [Rx Last Taken Unknown] ipratropium 0.5 mg-albuterol 3 mg (2.5 mg base)/3 mL nebulization soln 3 ml inhalation Q6HWA.RT #1 mL 11/21/23 [Rx Last Taken Unknown] lorazepam 1 mg tablet 1 mg PO Q6H PRN PRN Anxiety/Agitation #8 tabs 11/21/23 [Rx Last Taken Unknown] menthol 0.44 %-zinc oxide 20.6 % topical ointment (Calmoseptine) 1 applic topical 4X/DAY #0 grams 11/21/23 [Rx Last Taken Unknown] miconazole nitrate 2 % topical powder (Desenex) 1 applic topical TID #0 grams 11/21/23 [Rx Last Taken Unknown] olanzapine 2.5 mg tablet 2.5 mg PO BID #0 tabs 11/21/23 [Rx Last Taken Unknown] pantoprazole 40 mg tablet,delayed release 40 mg PO DAILY GERD #0 tabs 11/21/23 [Rx Last Taken Unknown] potassium chloride 20 mEq tablet,extended release(part/cryst) 40 meq (2 x 20 mEq) PO DAILYCM #0 tabs 11/21/23 [Rx Last Taken Unknown] vancomycin 25 mg/mL oral solution (Firvanq) 125 mg (5 mL) PO Q6 #0 mL 11/21/23 [Rx Last Taken Unknown] cefdinir 300 mg capsule 300 mg PO BID 12/02/23 [History Last Taken Unknown] haloperidol 2 mg tablet 2 mg PO BID acute psychosis 12/02/23 [History Last Taken Unknown] hydrocodone-acetaminophen 5-325mg 5mg-325mg 1 tab PO Q8H PRN pain 12/02/23 [History Last Taken Unknown] olanzapine 5 mg tablet 5 mg PO BID schizophrenia 12/02/23 [History Last Taken Unknown] phenazopyridine 100 mg tablet 100 mg PO Q8H 12/02/23 [History Last Taken Unknown] Allergy/AdvReac Type Severity Reaction Status Date / Time Iodinated Contrast Media Allergy Other Verified 12/02/23 19:03 [DYEE] morphine AdvReac Shortness Verified 12/02/23 19:03 of breath tramadol [From Ultram] AdvReac Other Verified 12/02/23 19:03 trazodone AdvReac Other Verified 12/02/23 19:03 Family History Mother Hypertension Father CVA (cerebral vascular accident) Hypertension Diabetes Surgical History History of cholecystectomy History of left knee replacement Social History (Updated 12/02/23 @ 22:[address] Myesha Child MD) housing: residential Smoking Status: Former smoker how long ago did patient quit smoking: Quit ~ 27 yrs prior, smoked 4 ppd since age 19 until quit. alcohol intake: never substance use type: does not use ROS Review of Systems ROS Unobtainable: due to encephalopathy and due to mental status Vital Signs Vital Signs Vital Signs: 12/02/23 18:56 12/02/23 20:03 12/02/23 21:00 Temperature 96.5 F L 98.7 F 98.1 F Temperature Source Temporal Oral Oral Pulse Rate 94 90 82 Respiratory Rate 18 18 21 H Blood Pressure 144/122 H 140/62 H 124/78 H Blood Pressure Mean 129 88 93 Pulse Ox 95 94 92 Oxygen Delivery Method Room Air Nasal Cannula Nasal Cannula Oxygen Flow Rate (L/min) 2 2 12/02/23 19:23 12/02/23 19:30 12/02/23 19:40 Temperature Temperature Source Pulse Rate 83 82 86 Respiratory Rate 21 H 18 28 H Blood Pressure 123/45 H Blood Pressure Mean 69 Pulse Ox 99 99 99 Oxygen Delivery Method Oxygen Flow Rate (L/min) 12/02/23 19:45 12/02/23 19:50 12/02/23 20:00 Temperature Temperature Source Pulse Rate 85 80 89 Respiratory Rate 18 26 H 20 H Blood Pressure 140/62 H 140/62 H Blood Pressure Mean 85 81 Pulse Ox 98 99 98 Oxygen Delivery Method Oxygen Flow Rate (L/min) 12/02/23 20:10 12/02/23 20:15 12/02/23 20:26 Temperature Temperature Source Pulse Rate 84 86 Respiratory Rate 27 H Blood Pressure 129/118 H Blood Pressure Mean 124 Pulse Ox 98 97 Oxygen Delivery Method Oxygen Flow Rate (L/min) 12/02/23 20:30 12/02/23 20:40 12/02/23 20:45 Temperature Temperature Source Pulse Rate 90 86 86 Respiratory Rate 33 H 22 H 22 H Blood Pressure 130/62 H 139/96 H Blood Pressure Mean 79 108 Pulse Ox 2 92 Oxygen Delivery Method Nasal Cannula Oxygen Flow Rate (L/min) 12/02/23 20:50 12/02/23 21:00 12/02/23 21:10 Temperature Temperature Source Pulse Rate 87 82 76 Respiratory Rate 19 H 21 H 25 H Blood Pressure 124/78 H Blood Pressure Mean 92 Pulse Ox 90 92 91 Oxygen Delivery Method Nasal Cannula Oxygen Flow Rate (L/min) 2 Weight Weight: 293 lb Body Mass Index (BMI) 47.2 Physical Exam Narrative Physical Examination: General: Patient encephalopathic, awakens to stimuli but not alert or oriented, not following any commands, laying in the ED bed, fatigued, given sedative regimen per SNF prior to transition per Family report. Skin: Normal color, normal turgor, no icterus, no cyanosis except occasional staged ecchymoses, abrasion and bilateral lower extremity stasis skin changes. HEENT: AT/NC, EOM unable to be assessed well given encephalopathy, PERRLA, mildly dry MM, no carotid bruits, difficult to determine JVD given significantly thickened neck. Lungs: Diffusely diminished, greater bases, mildly increased RR but no distress, no rales, rhonchi or wheezing. Heart: Regular rate and rhythm; no gallop, rub audible. Abdomen: Soft, morbidly obese, NTTP, distant BS, difficult to discern distention and HSM given habitus. Extremities: No cyanosis, no clubbing, bilateral pedal to distal bingham edema, chronic. Neurological: Patient encephalopathic, awakens to stimuli but not alert or oriented, not following any commands, cognitive function not baseline intact but does have underlying dementia and has had worsening behavioral issues, pupils equally reactive to light and accommodation, cranial nerves difficult to assess given encephalopathy, moving extremities spontaneously, strength severely globally decreased. Psychiatric: Affect appears fatigued, flat, encephalopathic, does have underlying anxiety and depression/schizophrenia. Results Lab / Micro Data 12/02/23 19:14 12/02/23 19:14 Labs: Laboratory Results - last 24 hr 12/02/23 19:14: WBC 6.0, RBC 4.84, Hgb 10.8 L, Hct 40.1, MCV 82.9, MCH 22.3 L, MCHC 26.9 L, RDW Std Deviation 59.7 H, RDW Coeff of Esvin 20.3 H, Plt Count 147 L, MPV 11.2, Immature Gran % (Auto) 0.200, Neut % (Auto) 62.0, Lymph % (Auto) 15.5 L, [place] % (Auto) 11.1 H, Eos % (Auto) 10.5 H, Baso % (Auto) 0.7, Absolute Neuts (auto) 3.7, Absolute Lymphs (auto) 0.93, Nucleated RBC % 0, Differential Comment SCANNED, PT 13.3, INR 1.0, APTT 29.5, Sodium 144, Potassium 4.1, Chloride 108 H, Carbon Dioxide 35.0 H, Anion Gap 1 L, BUN 16, Creatinine 1.12 H, Estim Creat Clear Calc 53.32, Est GFR (MDRD) Af Amer 60, Est GFR (MDRD) Non-Af 49 L, BUN/Creatinine Ratio 14.3, Glucose 110 H, Calcium 9.8, Total Bilirubin 0.60, Direct Bilirubin 0.18, AST 23, ALT 27, Alkaline Phosphatase 105, Total Protein 6.7, Albumin 3.1 L, Globulin 3.6 12/02/23 20:08: Lactic Acid 1.1, Urine Color Red, Urine Clarity Cloudy, Urine pH 5.0, Ur Specific [place] 1.030, Urine Protein 100 H, Urine Glucose (UA) Normal, Urine Ketones Negative, Urine Occult Blood 250 H, Urine Nitrite Positive H, Urine Bilirubin 6 H, Urine Urobilinogen 8 H, Ur Leukocyte Esterase 500 H, Urine RBC > 100 SEEN, Urine WBC >100 SEEN, Ur Squamous Epith Cells 0 SEEN, Urine Bacteria RARE, Urine Mucus RARE ABG Data ABG results: ABG 12/02/23 20:38 Specimen Type ART Sample Site R Radial pH 7.33 L Bicarbonate Actual 33.6 H Total CO2 36 Base Excess 8 H O2 Saturation 90 L O2 % 1.0 ABG pCO2 63.2 H ABG pO2 65 L [place] Test Positive O2 Delivery Device Cannula Vent Mode Not entered Imaging Radiology Impression Brain CT 12/02/23 19:44 IMPRESSION: Involutional changes, otherwise normal unenhanced CT scan of the brain. Sequela of sinus disease as described. Electronically Signed: Susanna Elliott MD at 20:54 EST , Assessment & Plan Assessment/Plan (1) UTI (urinary tract infection): PLAN: Plan The patient is an 83 y/o F w/ PMHx: Chronic bladder colonic fistula and will get frequent UTIs, Morbid obesity, Dementia unclear type with mood disturbance, Anxiety and Depression/Schizophrenia, CKD stage IIIa, HTN, HLD, TACO on CPAP, Anxiety and Depression, HFpEF, Diabetes mellitus type II, COPD, recent prolonged admission 11/06/23-11/21/23 secondary to acute hypoxic and hypercarbic respiratory failure secondary to underlying COVID-19 infection with superimposed right lower lobe bacterial community-acquired pneumonia as well as acute diastolic heart failure treated with remdesivir and IV Decadron with associated acute encephalopathy complicated by underlying chronic dementia with concurrent stool positive C. difficile without detectable toxin with given loose stools treatment of oral vancomycin secondary to diarrhea who now re-presents to the [facility] ED on 12/02/23 with history of increased and continued confusion with intermittent threats to hurt herself initially transition to rehab even returning to the ER at least 2-3 times since discharge secondary to confusion with hospitalization at [place] 2 days prior with diagnosis of UTI at that time started on cefdinir with ongoing confusion and intermittent statements reportedly of wanting to hang yourself with her oxygen tubing constantly scratching her face and then reportedly saying staff is trying to hurt her and responsible for these injuries prompting return to ED. #1. Acute Encephalopathy, multifactorial secondary to Acute Complicated UTI wi th Colovesical Fistula as well as possibly #2, complicated by recent admission with noted #3-#5: Will admit to [facility] upon ED evaluation remarkable, pending UCx although may need to obtain records from [facility] ED, monitor I/Os, continue IV Rocephin given prior noted minor sensitivity w/ transition as able pending sensitivities and speciation. PT/OT/case management consulted for discharge planning. #2. Dementia with mood disturbance with Suicidal ideations, ongoing w/ underlying Anxiety and Depression/Schizophrenia: Complicates presentation, notable issues with self harm threats, will maintain on suicide precautions, will continue treatment as noted of #1, once appropriate will need to consult crisis, will continue home donepezil, ativan, olanzapine, mirtazapine, haldol home regimen, CM/SW consulted. Will have low dose haldol for severe agitation as needed. Also noted on sertraline, clarifying. Do suspect this is chronic component now and will not further improve given no improvement. Likely would benefit from consideration of termite inspector placement, possibly dementia focused f acility. #3. Recent COVID PNA and superimposed RLL CAP, resolved with Chronic Hypoxic Respiratory Failure (requiring 2L NC since recent discharge), did have during prior admission Acute Hypoxic and Hypercapnic Respiratory Failure of note: Treated with course Remdesivir and IV Decadron regimen x 9 days as well as completion abx therapy during prior admission for superimposed PNA. Will continue supplemental oxygenation, ATC duoneb therapies, PRN albuterol, encourage HOB, IS. #4. Recent Acute HFpEF Decompensation, resolved: 11/08/2023 Limited echocardiogram with LVEF 65%, small pericardial effusion. Will continue asa, statin, lasix, not on BB or JJ/ARB per most recent regimen noted. Will sheldon iciously hydrate if necessary. #5. Recent Severe Diarrhea w/ Stool positive C. difficile without detectable toxin: Given ongoing loose stools/diarrhea with GI involvement decision to treat with course oral vancomycin, completed 12/01/23. #6. Chronic normocytic anemia: Admission hemoglobin 10.8, MCV 82.9, baseline hemoglobin appears primarily 8-10, stable, continue to trend. #7. Diabetes mellitus type II: Hold oral home regimen, currently n.p.o. status secondary to encephalopathy, while n.p.o. maintain every 6 hours accu checks w/ ISS. #8. Chronic Kidney Disease Stage IIIa: Admission BUN/Cr 16/1.12, baseline renal function appears 0.9-1.3 during recent presentation, continue to trend. #9. Chronic COPD: Complicates presentation, as noted currently maintained on supplementation, will attempt BiPAP nightly, will transition to ATC duoneb therapies, PRN albuterol, HOB, IS parameters. #10. Hypertension: Will continue home regimen lasix, PRN hydralazine. #11. Hyperlipidemia: Will continue home statin therapy. #12. TACO: Will attempt BiPAP nightly if patient will tolerate but she does have underlying history and usually refuses AP therapy. #13. Morbid Obesity: Weight loss and lifestyle changes encouraged. #14. DVT prophylaxis: Lovenox. #15. CODE status: Patient's daughters are her health care decision makers. Discussed CODE status at length including difference between FULL code, DNR-CCA and DNR-CC status. Following discussions about the differences in these status, requested DNR-CCA, no intubation status. Advanced Care Planning Face to Face Time: 16 minutes. Charges/Coding Visit Charges Inpatient E&M: 59613 Init Hosp L3 Procedures Hospitalists Procedures: 49870 Advncd Care Plan 30 Min
--- OUTSIDE RECORDS SUMMARY | 2023-12-02 22:38 | XMS RPT_ITS | CCD ---
Author Name Unknown Address [address] [place] [address] Organization [facility] Care Team Providers Care Cotton Breeder Name Role Phone LINO ZHU Unavailable Unavailable Leno Briggs Unavailable Unavailable LINO ZHU Unavailable Unavailable LINO ZHU Unavailable Unavailable Leno Briggs Unavailable Unavailable Brigitte [facility], Leno Viramontes Primary Care Provider [phone] Leno Briggs MD Primary Care Provider [phone] Leno Briggs MD Primary Care Provider [phone] Leno Briggs MD Primary Care Provider [phone] LENO BRIGGS Primary Care Unavailable MADALYN DEGROOT Referring Unavailable EUFEMIA CHAPA Attending Unavailable Leno Briggs MD Primary Care Provider [phone] Leno Briggs MD Primary Care Provider Leno Briggs MD Primary Care Provider [phone] SAMANTHA NAVA Referring Unavailable SAMANTHA NAVA Attending [...] Care Unavailable PATSY MONTANO MD Attending Unavailable LENO BRIGGS MD Primary Care Unavailable PHYSICIAN, NONE Primary Care Unavailable MARII VAIL DO Attending Unavailable Allergies Allergy Classification Reported Allergen(s) Allergy Type Date of Onset Reaction(s) Facility (20 sources) codeine; Translations: [CODEINE] Drug Allergy 10-12-20 11 Mental Status Change, Dizziness, Unknown [facility] Repository (1 source) Contrast media; Translations: [CONTRAST DYE] Propensity to adverse reactions (disorder) [facility] Repository (20 sources) escitalopram; Translations: [ESCITALOPRAM] Drug Allergy 05-28-20 13 Other: See Comments [facility] Repository (20 sources) sertraline; Translations: [SERTRALINE HCL] Drug Allergy 10-12-20 11 Other: See Comments [facility] Repository (20 sources) sulfamethoxazole / trimethoprim; Translations: [SULFAMETHOXAZOLE-T RIMETHOPRIM] Drug Allergy 01-21-20 15 Itching [facility] Repository (20 sources) traMADol; Translations: [TRAMADOL] Drug Allergy 10-12-20 11 Other: See Comments, Dermatitis, Dizziness, Other [facility] Repository (20 sources) Garlic preparation; Translations: [GARLIC OIL] Drug Allergy 08-09-20 19 Other: See Comments [facility] Work Phone: (20 sources) oxybutynin; Translations: [OXYBUTYNIN] Drug Allergy 12-03-19 Other: See Comments [facility] Work Phone: (13 sources) traZODone Drug Allergy 01-15-20 Other [facility] [employer] (13 sources) Iodinated Cont[employer] Media Drug Allergy 01-15-20 18 Other [facility] (1 source) Sertraline; Translations: [sertraline] Drug Allergy [facility] (1 source) Sulfamethoxazole / Trimethoprim; Translations: [sulfamethoxazole-t rimethoprim] Drug Allergy [facility] Medications Current Medications Medication Drug Class(es) [...] long-term current use of insulin ([facility])] Onset: 3 Disorders of lipid metabolism [...] (20 sources) Drug therapy finding; Translations: [Other director long term care (current) drug therapy] Onset: 11-25-2016 01-04-2020 Episodic Other aftercare (1 source) Other jail (current) drug therapy; Translations: [Medication management] Onset: [...] Pressure Non-Invasive 87 mm[Hg] PATSY MONTANO MD [facility] 11-23-2023 02:53-0500 Heart rate 94 /min PATSY MONTANO MD [facility] 11-23-2023 02:53-0500 Respiratory rate 18 /min PATSY MONTANO MD [facility] 11-23-2023 02:53-0500 Systolic Blood Pressure Non-Invasive 141 mm[Hg] PATSY MONTANO MD [facility] 11-23-2023 00:01-0500 Body temperature 98.06 [degF] PATSY MONTANO MD [facility] 11-23-2023 00:01-0500 Diastolic Blood Pressure Non-Invasive 74 mm[Hg] PATSY MONTANO MD [facility] 11-23-2023 00:01-0500 Heart rate 100 /min PATSY MONTANO MD [facility] 11-23-2023 00:01-0500 Respiratory rate 18 /min PATSY MONTANO MD [facility] 11-23-2023 00:01-0500 Systolic Blood Pressure Non-Invasive 153 mm[Hg] PATSY MONTANO MD [facility] 06-21-2023 14:28-0400 Body weight 137.44 kg Leno Briggs MD Work Phone: [facility] 06-21-2023 14:28-0400 Diastolic blood pressure 84 mm[Hg] Leno Briggs MD Work Phone: [facility] 06-21-2023 14:28-0400 Heart rate 80 /min Leno Briggs MD Work Phone: [facility] 06-21-2023 14:28-0400 Respiratory rate 14 /min Leno Briggs MD Work Phone: [facility] 06-21-2023 14:28-0400 Systolic blood pressure 136 mm[Hg] Leno Briggs MD Work Phone: [facility] 05-25-2023 11:49-0400 Diastolic blood pressure 77 mm[Hg] Samantha Nava MD Work Phone: [facility] Encounters Encounter Date Encounter Type Care Provider Facility Start: 12-01-2023 End: 12-01-2023 Emergency department patient visit CHASTITY TRAMMELL MD Facility:B Start: 11-23-2023 End: 11-23-2023 Emergency department patient visit PATSY MONTANO MD Facility:B Start: 11-22-2023 End: 11-23-2023 Emergency department patient visit PATSY MONTANO MD [facility] Start: 09-19-2023 ambulatory Leno silva MD Work Phone: [facility] Procedures Date Procedure Procedure Detail Performing Clinician Start: 06-21-2023 Drug tst prsmv instr mnt chem analyzers pr date Leno Briggs MD Work Phone: Start: 05-25-2023 Colonoscopy Samantha Santillan ch, MD Work Phone: Start: 05-04-2023 Cyanocobalamin vitamin b-12 Shantal Serrano SENIOR QA TESTER - NURSE AIDE Work Phone: Start: 11-04-2022 INFLUENZA SEASONAL QUADRIVALENT HIGH DOSE AGE 65+ Stephani Crooks PA-C Work Phone: Start: 05-18-2022 Brncdilat rspse spmt ry pre&post-brncdilat admn Stephani Crooks PA-C Work Phone: Plan of Treatment Date Care Activity Detail Author Start: 05-25-2028 Screening for malign ant neoplasm of colon [facility] Start: 08-31-2024 3 comp foot exam completed Diabetic Foot Exam [facility] Start: 08-31-2024 Covid-19 Vaccine () Covid-19 Vaccine () [facility] Immunizations Immunization Date Immunization Notes Care Provider Verito paulino 08-31-2023 influenza (HD-IIV4) vaccine, age 65+ yr, high dose, quadrivalent, PF (FLUZONE HIGH-DOSE) Leno Briggs MD Work Phone: [facility] 08-31-2023 pneumococcal (PCV20) vaccine, 20 valent (PREVNAR 20) Leno Briggs MD Work Phone: [facility] 11-04-2022 influenza, high-dose , quadrivalent vaccine (FLUZONE HIGH DOSE QUADRIVALENT) Stehpani Crooks PA-C Work Phone: [facility] 11-04-2022 influenza virus vacc ine, unspecified formulation Samantha Nava MD Work Phone: [facility] 09-03-2021 influenza, high-dose , quadrivalent vaccine (FLUZONE HIGH DOSE QUADRIVALENT) Leno Briggs MD Work Phone: [facility] 03-17-2021 COVID-19 vaccine, fu ll dose (MODERNA) Leno Briggs MD Work Phone: [facility] 02-17-2021 COVID-19 vaccine, fu ll dose (MODERNA) Leno Briggs MD Work Phone: [facility] 07-31-2019 influenza, high dose seasonal, preservative-free Leno Briggs MD Work Phone: [facility] 09-13-2018 influenza, high dose seasonal, preservative-free Leno Briggs MD Work Phone: [facility] 12-12-2017 pneumococcal polysaccharide vaccine, 23 valent Leno Briggs MD Work Phone: [facility] 09-27-2017 influenza, injectabl e, quadrivalent, contains preservative Leno Briggs MD Work Phone: [facility] 08-27-2016 influenza, injectabl e, quadrivalent, contains preservative Leno Briggs MD Work Phone: [facility] Work Phone: 09-15-2015 influenza, high dose seasonal, preservative-free Leno Briggs MD Work Phone: [facility] Work Phone: 09-15-2015 pneumococcal conjuga te vaccine, 13 valent Leno Briggs MD Work Phone: [facility] Work Phone: 09-20-2014 influenza, seasonal, injectable Leno Briggs MD Work Phone: [facility] Work Phone: 03-27-2014 zoster vaccine, live Leno Briggs MD Work Phone: [facility] Work Phone: 10-24-2013 influenza virus vacc ine, unspecified formulation Leno Briggs MD Work Phone: [facility] 09-06-2012 influenza virus vacc ine, unspecified formulation Leno Briggs MD Work Phone: [facility] Work Phone: 06-21-2012 pneumococcal polysaccharide vaccine, 23 vallynn Briggs MD Work Phone: [facility] Work Phone: 04-24-2012 pneumococcal polysaccharide vaccine, 23 vallynn Briggs MD Work Phone: [facility] Work Phone: Payers Date Payer Category Payer Private Health Insurance 101 [id number] 2021 Medicare UHC AARP MEDICAR E UHC AARP MEDICARE HMO [id number] 2021-Present [phone] [address] [address] [place] [address] O [id number] 2021 Medicare [id number] 2021 Medicare [id number] 1940 Unknown [id number] 1940 Unknown [id number] 1940 Unknown [id number] Medicare [id number] Social History Date Type Detail Facility Start: 08-15-2012 End: 04-05-2023 Tobacco smoking status NHIS Ex-smoker [facility] End: 09-22-1997 History of tobacco use Current smoker [facility] End: 09-22-1997 History of tobacco use Cigarette Smoker [facility] Start: 08-15-2012 End: 04-05-2023 Cigarettes smoked current (pack per day) - Reported 3 [facility] Start: 08-15-2012 End: 07-05-2022 Tobacco use and exposure Smokeless tobacco non-user [facility] Start: 10-13-2021 End: 08-31-2023 Alcohol intake Current non-drinker of alcohol (finding) [facility] Start: 1940 Sex Assigned At Female [facility] Start: 03-12-2022 End: 05-30-2023 Exposure to SARS-CoV-2 (event) Not sure [facility] Work Phone: Start: 07-09-2022 End: 07-19-2022 Exposure to SARS-CoV-2 (event) Unable to assess [facility] Work Phone: Start: 04-01-2023 History SDOH Alcohol Frequency 1 [facility] Start: 04-01-2023 History SDOH Alcohol Std Drinks 0 [facility] Start: 04-01-2023 History SDOH Social Connections Phone 4 [facility] Start: 04-01-2023 History SDOH Social Connections Get Together 5 [facility] Start: 04-01-2023 History SDOH Social Connections Membership 2 [facility] Start: 04-05-2023 End: 05-30-2023 Alcohol intake Lifetime non-drinker (finding) [facility] Start: 1940 Sex Assigned At Not on file S [facility] Start: 04-05-2023 End: 04-11-2023 Tobacco use panel [facility] Within the last year , have you been afraid of your partner or ex-partner? No [facility] Are you now , , , , never or living with a partner? [facility] How often to you hav e a drink containing alcohol? Never [facility] How many standard drinks containing alcohol do you have on a typical day? Patient does not drink [facility] How hard is it for y ou to pay for the very basics like food, housing, medical care, and heating Not very hard [facility] Do you feel stress - tense, restless, nervous, or anxious, or unable to sleep at night because your mind is troubled all the time - these days [OSQ] Only a little [facility] (I/We) worried wheth er (my/our) food would run out before (I/we) got money to buy more. Never true [facility] Start: 07-17-2021 Gender identity Identifies as female gender (finding) [facility] Start: 07-17-2021 Sexual orientation Heterosexual (fin ding) [facility] Start: 12-31-2022 Tobacco smoking status Never s moked tobacco (finding) [facility] Sex Assigned At Sex [facility] Medical Equipment Procedure Code Equipment Code Equipment Origin al Text Equipment Identifier Dates Start: 09-08-2021 Functional Status Date Assessment Result Facility 11-23-2023 Functional Status Standard Safet y ID band on, Call device within reach [facility] Mental Status Date Assessment Result Facility 11-23-2023 Mental Status Orientation Not oriented to place, Not oriented to time, Not oriented to situation, Follows simple commands [facility] Clinical Notes 01-01-2019 to 11-23-2023 Telephone [...] body part Frequent bruising for unknown reasons [phone] [employer]. [address] [place] [address]. All rights reserved. This information is not [...] the ears or bruising around the eyes 2524-1939 [employer]. [address] [place] [address], [place] [address]. All rights reserved. This information is not intended as a substitute for professional medical care. Always follow your healthcare professional's instructions. Follow Up Care 11/22/2023 23:57:40 With:LENO BRIGGS Address: [address] [address] [facility] (1) When:Within 1 Week(s) Comments:Follow-up as needed.Tylenol for pain as needed.Return to the ED for any problems or concerns. [facility] Ricardakofi Silvestre 11-23-2023 Note Discharge Instructions Thank you for allowing [facility] to assist you with your healthcare needs. [...] for any problems or concerns. Where: [address] [place] [address] [facility] (1) Allergies Bactrim codeine escitalopram oxybutynin sertraline [...] body part Frequent bruising for unknown reasons [phone] [employer]. [address] [place] [address]. All rights reserved. This information is not [...] the ears or bruising around the eyes 5927-9332 [employer]. [address] [place] [address]. All rights reserved. This information is not intended as a substitute for professional medical care. Always follow your healthcare professional's instructions. Additional Information VACCINATE! IT SAVES LIVES! Members of the community who have not yet received the COVID-19 vaccine and would like to receive it can visit one of [facility] vaccine clinics. There are many vaccine clinic locations within the [facility]. For locations and available times, please visit [email or web address] It is important to note that some COVID mobile vaccine clinics are held outdoors and may be canceled in rainy or stormy conditions. To learn more about pediatric vaccinations (ages 5-11), we invite you to visit the [facility] webpage. [email or web address] To learn more about the COVID-19 vaccine, we invite you to visit the CDC website for a list of frequently asked questions. https://www.cdc.gov/coronavirus/2 019-ncov/vaccines/faq.html [facility] [employer] Patient Portal Access Instructions: Stay connected with your healthcare team and access your personal medical information anytime with the [facility] Patient Portal. If you would like a full copy of your medical records please contact the [facility] Medical Records Department Tuesday through Tuesday between 8a.m. and 4:30p.m. Please follow the directions below to access the portal: 1.Access the email account you provided upon registration to the [facility].2.Look for an invitation email from [facility].3.Open the email and access the invitation link: Accept Invitation to [facility].Fill in the required quintana to create your [...] you will allow to register on the [facility] [employer] Patient Portal for access to your information. You can also access the [facility] Patient Portal on the [id number] miles. Simply click on Health Records under [...] Call your local pharmacy or go to [email or web address] to find one close to you.3.Make use of household items: Use cat litter or old coffee grounds to dispose medications if other options are not available. Mix your drugs with these household products, seal them in an airtight container and throw it into the garbage. Call [facility]: [phone] to be sure your drugs can be [...] aware that I should contact my doctor. 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 Author Type: LICENSED NURSE Type: Progress Notes Filed: 11/17/2023 07:18 Note Text: Scan on 11/16/2023 4:44 PM by Provider, External, PA-C: Consultation - GI [facility] 11-08-2023 Note HNO ID: [id number] Author: Melissa Parra LPN Service: ? Author Type: LICENSED NURSE Type: Progress Notes Filed: 11/08/2023 3:57 PM Note Text: Scan on 11/08/2023 1:21 PM by Provider, External, PA-C: Echo Scan on 11/06/2023 8:17 PM by Provider, External PA-C Scan on 11/06/2023 4:45 PM by Provider External PA-C: Consultation - Emergency Medicine Scan on 11/08/2023 3:12 PM by Provider, External PA-C: Consultation - ID [facility] 11-08-2023 Note HNO ID: [id number] Author: Melissa Parra LPN Service: ? Author Type: LICENSED NURSE Type: Progress Notes Filed: 11/08/2023 1:48 PM Note Text: Scan on 11/06/2023 3:21 PM by Provider, External PA-C: X-ray Scan on 11/06/2023 4:45 PM by Provider External PA-C: Consultation - Emergency Medicine Scan on 11/06/2023 8:17 PM by Provider, External, PA-C [facility] 09-20-2023 Miscellaneous Notes PA approved faxing approval to [facility] at [phone] Daughter was notified approved not sure on [...] this encounter [facility] 09-15-2023 Telephone encounter Note Left message notifying and to call back with which way they'd like to do the visit. [facility] 09-15-2023 Miscellaneous Notes Left message notifying and to call back with which way they'd like to do the visit. OK for virtual visit although we will not be able to facilitate memory testing over MyChart or phone. If they are wanting memory testing then visit will need to be in the office. Name of caller: Mariela Contact phone number: [phone] Relationship to Patient: Chandan Provider: Shantal Serrano [...] their call: Yes documented in this encounter [facility] 09-15-2023 Telephone encounter Note OK for virtual visit although we will not be able to facilitate memory testing over MyChart or phone. If they are wanting memory testing then visit will need to be in the office. [facility] 09-14-2023 Telephone encounter Note Name of caller: Mariela Contact phone number: [phone] Relationship to Patient: Daughter Provider: Shantal Serrano [...] business hours to return their call: Yes [facility] 09-02-2023 Miscellaneous Notes Daughter was notified [...] this encounter [facility] 08-31-2023 Note HNO ID: [id number] Author: Leno Briggs MD Service: ? Author [...] 07/29/2015 Chronic diastolic heart failure ([facility]), mild. 08/27/[address] Bravo. Chronic pain of both knees 11/16/2019 CKD (chronic kidney disease) stage 3, GFR 30-59 ml/min ([facility]) 01/01/2019 COPD with chronic bronchitis ([facility]) 02/15/2017 Dr. Brito Current use of proton pump inhibitor 11/25/2016 Mg checked 11/2017 DDD (degenerative disc disease), cervical 07/29/2015 DDD (degenerative disc disease), lumbar 05/08/2013 Diabetes mellitus type 2 in obese ([facility]) 06/2015 a1c 6.5% Diabetic eye exam ([facility]) 03/15/2017 Last done: 10/24/2019 No Retinopathy [...] TACO (obstructive sleep apnea) DME [employer] [facility] [phone] Pain due to total left knee replacement [...] long-term current use of insulin ([facility]) 06/06/2017 Urge incontinence 11/21/2012 PAST SURGICAL HISTORY PAST SURGICAL HISTORY Procedure Laterality Date CHOLECYSTECTOMY HX 10/30/1997 COLONOSCOP W/ OR W/O [facility] SPEC 11/29/12 Colonoscopy repeat 3 years COLONOSCOP W/ OR W/O [facility] SPEC 01/28/16 Colonoscopy with mac COLONOSCOPY AND POLYPECTOMY ~2007 2 polyps COLONOSCOPY AND POLYPECTOMY ~2001 7 polyps COLONOSCOPY AND POLYPECTOMY 11/30/2011 CYSTOSCOPY 09/21/12 EGD 10/17/2011 Dr Negrete in [place] EGD W/O OR W/BRUSH/WASH 05/16/2014 EGD EGD [...] Mother Lipids Mother HIGH CHOLESTEROL Heart Father CA Ischemic Heart Disease Father STROKE other (diabetic) [...] completed and revi (more content not included)... [facility] 08-23-2023 Miscellaneous Notes The following approved medication [...] this encounter [facility] 08-16-2023 Telephone encounter Note Preferred contact number: [phone] Reason for Visit: Caller states she would like to cancel appointment due to transportation and would like a call to schedule. Please advise. Thank you Urgency of Appointment: na Medications in need of refill: na [facility] 08-16-2023 Miscellaneous Notes Preferred contact number: [phone] Reason for Visit: Caller states she would like to cancel appointment due to transportation and would like a call to schedule. Please advise. Thank you Urgency of Appointment: na Medications in need of refill: na documented in this encounter [facility] 07-05-2023 Telephone encounter Note Daughter wanted to [...] prior to picking up the medication: N/A [facility] 07-05-2023 Miscellaneous Notes Daughter wanted to know [...] the medication: N/A documented in this encounter [facility] 07-05-2023 Miscellaneous Notes Spoke with pt's daughter and information below given. Shelby Rogel LPN Left message for pt's daughter to contact office. Cynthia Shirley LPN Let family know the Aricept (donepezil) is prescribed by patient's transport nurse and will need to contact that office [...] this encounter [facility] 06-21-2023 Note HNO ID: [id number] Author: Leno Briggs MD Service: ? Author [...] life is less. She has been taking [place] 5/325 one twice a day since 04/2018 and up till now was doing well with this. Her daughter, (Mariela) who is her with her today, notes that it no longer controls the pain for as long of a time as it used to. She requires extra strength tylenol in between doses and even then it's not as well as when she takes a Burlingame. Patient has not been seen for routine since 10/2022. She is now seeing a transport nurse for her dementia. She was recently found [...] mellitus type 2 in obese ([facility]) 06/2015 a1c 6.5% Diabetic eye exam ([facility]) 03/15/2017 Last done: 10/24/2019 No Retinopathy [...] TACO (obstructive sleep apnea) [facility] [employer] fx [phone] Pain due to total left knee replacement ([facility]) 06/08/2018 Personal history of colonic polyps 01/23/2016 Primary insomnia 03/16/2017 [facility] 06/26/2018 recommended Klonopin every other day for a week and then just as needed. Primary osteoarthritis of right knee 07/13/2016 Pulmonary hypertension (HCC) 05/19/2022 Seeing pulm and cardio Pulmonary nodules 03/03/2013 Incidental non-calcified nodules 10/09/2012. Repeat CT due 06/2013 Recurrent major depressive disorder, in full remission ([facility]) 08/17/2012 Rheumatoid arthritis(714.0) Spondylosis of lumbar region without myelopathy or radiculopathy 05/28/2015 Status post total left knee replacement 06/08/2018 Stress incontinence 11/21/[address] Armas. Thyroid nodule 11/15/2018 Stable on 2017 Type 2 diabetes mellitus with stage 3 chronic kidney disease, without long-term current use of insulin ([facility]) 06/06/2017 Urge incontinence 11/21/2012 Previous Surgical [...] ESOPHAGOGASTRODUODENOSCOPY TRANSORAL D (more content not included)... [facility] 06-21-2023 History of Present illness Narrative Chief [...] life is less. She has been taking Burlingame 5/325 one twice a day since 04/2018 and up till now was doing well with this. Her daughter, (Mariela) who is her with her today, notes that it no longer controls the pain for as long of a time as it used to. She requires extra strength tylenol in between doses and even then it's not as well as when she takes a Burlingame. Patient has not been seen for routine since 10/2022. She is now seeing a transport nurse for her dementia. She was recently found [...] stage 3, GFR 30-59 ml/min ([facility]) 01/01/2019 COPD with chronic bronchitis ([facility]) 02/15/2017 Dr. Brito Current use of proton pump inhibitor 11/25/2016 Mg checked 11/2017 DDD (degenerative disc disease), cervical 07/29/2015 DDD (degenerative disc disease), lumbar 05/08/2013 Diabetes mellitus type 2 in obese ([facility]) 06/2015 a1c 6.5% Diabetic eye exam ([facility]) 03/15/2017 Last done: 10/24/2019 No Retinopathy [...] TACO (obstructive sleep apnea) [facility] [employer] fx [phone] Pain due to total left knee replacement [...] depressive disorder, in full remission ([facility]) 08/17/2012 Rheumatoid arthritis(714.0) Spondylosis of lumbar region without myelopathy or radiculopathy 05/28/2015 Status post total left knee replacement 06/08/2018 Stress incontinence 11/21/[address] Armas. Thyroid nodule 11/15/2018 Stable on US 2017 Type 2 diabetes mellitus with stage 3 chronic kidney disease, without long-term current use of insulin ([facility]) 06/06/2017 Urge incontinence 11/21/2012 Previous Surgical [...] CYSTOSCOPY 09/21/12 EGD 10/17/2011 Dr Negrete in [place] ESOPHAGOGASTRODUODENOSCOPY TRANSORAL DIAGNOSTIC 05/16/2014 EGD ESOPHAGOGASTRODUODENOSCOPY TRANSORAL DIAGNOSTIC 09/12/14 EGD ESOPHAGOGASTRODUODENOSCOPY TRANSORAL DIAGNOSTIC 01/06/2017 EGD ESOPHAGOGASTRODUODENOSCOPY TRANSORAL DIAGNOSTIC 07/21/2020 EGD REMOVE CATARACT, INSERT LENS, INTRACAPSUL Bilateral 2008 Family History FAMILY HISTORY Problem Relation Age of Onset Hypertension Mother Heart Mother Lipids Mother HIGH CHOLESTEROL Heart Father CA Ischemic Heart Disease Father STROKE other (diabetic) Father Diabetes Sister Diabetes Sister Breast Cancer Sister Patient Allergies ALLERGIES Allergen Reactions Bactrim [Sulfametho* Itching Codeine Mental Status Change Garlic Oil Other: See Comments Lexapro [Escitalopr* Other: See Comments rapid heart rate Oxybutynin Other: See Comments suggerst by [employer] to stop since it can add to [...] DX E11.22 Insulin No) Walker (ULTRA-LIGHT ROLLATOR) [facility] Rolator with seat. Dx: J44.9, M54.9, [...] which included preparing to see the patient, [id number] patient care, completing clinical documentation, performing a medically appropriate examination, counseling and educating the patient/family/caregiver and ordering medications, tests, or procedures. Leno Briggs MD documented in this encounter [facility] 06-20-2023 Miscellaneous Notes Left message for pt's daughter that Stpehani did review pt's chart and advised that pt does need to see Dr Briggs instead of her tomorrow. Advised pt is scheduled at 2:20 tomorrow 06/[address] Briggs. Daughter had called earlier to reschedule appointment that pt had canceled. Cynthia Shirley LPN documented in this encounter [facility] 05-30-2023 History of Present illness Narrative COLORECTAL SURGERY OFFICE VISIT PATIENT NAME: Robbin Singh : 1940 TODAY'S DATE: 05/30/2023 Chief Complaint Patient presents with Results [facility] # [phone](Mariela, daughter)Discuss results of colonoscopy done 05/25/23 Patient [...] that they are currently in the state [facility]. If the patient is a [...] Patient has dementia and is daughter is salvage grinder. She noticed feces inside her vagina. She [...] 05/25/2023 Performed by Samantha Nava MD at [address] ENDOSCOPY Current Outpatient Medications on File [...] Take 600 mg by mouth daily. HYDROcodone-acetaminophen ([place]) 5-325 MG tablet Take 1 tablet by [...] tablet Take 1 tablet by mouth daily. [place]-3 Fatty Acids (FISH OIL OMEGA-3 PO) Take [...] judgement RECTUM: deferred Exam chaperoned by female delinquent tax collection assistant. IMAGING: Per chart rveiew She underwent a CT scan at [facility] on 12/31/2022 with findings of mid [...] was performed when available. Samantha Nava MD [facility] [place] [address], [address] [place], [place] [address] p [phone] f [phone] documented in this encounter [facility] 05-25-2023 Note Patient: Robbin niño Procedure Summary Date: 05/25/23 Room / Location: [facility] [address] ENDO SEC 1 / [...] once all PACU criteria has been met. [facility] 05-25-2023 Note Patient: Robbin niño Procedure Summary Date: 05/25/23 Room / Location: [facility] ENDO SEC 1 / ARCH [...] opportunity for questions and acknowledgement of understanding. [facility] 05-25-2023 Note Endoscopy Center- [facility] Patient Name: Robbin Singh Procedure Date: 05/25/2023 10:43 AM Gender: Female Date of : 1940 Age: 82 Admit Type: Outpatient Note Status: Finalized Endoscopist: Samantha Nava MD, [id number] Procedure: Colonoscopy Indications: Follow-up of diverticulitis, Colovaginal [...] immediate complications. Procedure Code(s): --- Professional --- 00172, Colonoscopy, flexible; with removal of tumor(s), polyp(s), or other lesion(s) by snare technique --- Technical --- 90004, Colonoscopy, flexible; with removal of tumor(s), polyp(s), or other lesion(s) by snare technique CPT copyright 2021 [employer]. All rights reserved. The codes documented in this report are preliminary and upon rubber engraver review may be revised to meet current compliance requirements. Attending Participation: I personally performed the entire procedure. Samantha Nava MD 05/25/2023 11:25:44 AM This report has been signed electronically. Number of Addenda: 0 Note Initiated On: 05/25/2023 10:[address] [facility] 05-25-2023 Note Formatting of this n ote might be different from the original. [facility] Name: Robbin Singh Procedure Date: 05/25/2023 10:43 AM Gender: Female Date of : 1940 Age: 82 Admit Type: Outpatient Note Status: Finalized Endoscopist: Samantha Nava MD, [id number] Procedure: Colonoscopy Indications: Follow-up of diverticulitis, Colovaginal [...] immediate complications. Procedure Code(s): --- Professional --- 06046, Colonoscopy, flexible; with removal of tumor(s), polyp(s), or other lesion(s) by snare technique --- Technical --- 19152, Colonoscopy, flexible; with removal of tumor(s), polyp(s), or other lesion(s) by snare technique CPT copyright 2021 [employer]. All rights reserved. The codes documented in this report are preliminary and upon rubber engraver review may be revised to meet current compliance requirements. Attending Participation: I personally performed the entire procedure. Samantha Nava MD 05/25/2023 11:25:44 AM This report has been signed electronically. Number of Addenda: 0 Note Initiated On: 05/25/2023 10:43 AM [facility] 05-25-2023 Note Formatting of this n ote might be different from the original. [facility] Patient Name: Robbin Singh Procedure Date: 05/25/2023 10:43 AM Gender: Female Date of : 1940 Age: 82 Admit Type: Outpatient Note Status: Finalized Endoscopist: Samantha Nava MD, [id number] Procedure: Colonoscopy Indications: Follow-up of diverticulitis, Colovaginal [...] immediate complications. Procedure Code(s): --- Professional --- 94598, Colonoscopy, flexible; with removal of tumor(s), polyp(s), or other lesion(s) by snare technique --- Technical --- 34915, Colonoscopy, flexible; with removal of tumor(s), polyp(s), or other lesion(s) by snare technique CPT copyright 2022 [employer]. All rights reserved. The codes documented in this report are preliminary and upon rubber engraver review may be revised to meet current compliance requirements. Attending Participation: I personally performed the entire procedure. Samantha Nava MD 05/25/2023 11:25:44 AM This report has been signed electronically. Number of Addenda: 0 Note Initiated On: 05/25/2023 10:43 AM [facility] 05-25-2023 Miscellaneous Notes [facility] Patient Name: Robbin Singh Procedure Date: 05/25/2023 10:43 AM Gender: Female Date of : 1940 Age: 82 Admit Type: Outpatient Note Status: Finalized Endoscopist: Samantha Nava MD, [id number] Procedure: Colonoscopy Indications: Follow-up of diverticulitis, Colovaginal [...] immediate complications. Procedure Code(s): --- Professional --- 71173, Colonoscopy, flexible; with removal of tumor(s), polyp(s), or other lesion(s) by snare technique --- Technical --- 50348, Colonoscopy, flexible; with removal of tumor(s), polyp(s), or other lesion(s) by snare technique CPT copyright 2021 [employer]. All rights reserved. The codes documented in this report are preliminary and upon rubber engraver review may be revised to meet current compliance requirements. Attending Participation: I personally performed the entire procedure. Samantha Nava MD 05/25/2023 11:25:44 AM This report has been signed electronically. Number of Addenda: 0 Note Initiated On: 05/25/2023 10:43 AM documented in this encounter [facility] 05-25-2023 Note Endoscopy History an d Physical [...] flush 10 mL, 10 mL, IntraVENous, PRN, aSmantha Nava MD Medications Prior to Admission Medication [...] mg by mouth daily. Past Week HYDROcodone-acetaminophen ([place]) 5-325 MG tablet Take 1 tablet by [...] Take 1 tablet by mouth daily. 05/24/2023 [place]-3 Fatty Acids (FISH OIL OMEGA-3 PO) Take [...] none HEMATOLOGIC/LYMPHATIC: N (more content not included)... [facility] 05-25-2023 Note Patient: Robbin niño Procedure Information Date/Time: 05/25/23 0900 Procedure: COLONOSCOPY Location: [facility] ENDO SEC 1 / ARCH [...] found for this or any previous visit. [facility] 05-25-2023 History and physical note Endoscopy [...] mg by mouth daily. Past Week HYDROcodone-acetaminophen (Bur[place]) 5-325 MG tablet Take 1 tablet by [...] Take 1 tablet by mouth daily. 05/24/2023 [place]-3 Fatty Acids (FISH OIL OMEGA-3 PO) Take [...] understanding and willingness to proceed with plan. [employer] Work Phone: 05-25-2023 History and physical note [...] mg by mouth daily. Past Week HYDROcodone-acetaminophen ([place]) 5-325 MG tablet Take 1 tablet by [...] Take 1 tablet by mouth daily. 05/24/2023 [place]-3 Fatty Acids (FISH OIL OMEGA-3 PO) Take [...] proceed with plan. documented in this encounter [facility] 05-17-2023 History of Present illness Narrative Interval [...] Diet Healthy Nutrition for Older Adults - [facility] Injury Prevention/Home Safety [facility] Home Safety Checklist Hearing/Vision Hearing Loss and Older Adults Medications Medication Safety/Dispensers Sleep Getting a Good Night's Sleep ([facility]) Sleep Hygiene Day/Night Reversal Advanced Directives Healthcare Power of Market President Living Will Recommend Financial Power of Market President Elder Law Market President List [facility] Advanced Directives Information Guide Personal Care Personal Care Tips Bathing Tips Dressing Tips Images from the original note were not included. [facility] [address] [address] Dept: [phone] Dept Loc: [phone] Visit type: [facility] Family Summary Conference Reason for Visit: [...] through following means: Alzheimer's Association support and automotive electrical helper Reviewed advanced care plan. Health Care Power of Market President, Financial Power of Market President, and Living Will Educational information and handouts [...] 03/2023 for memory loss x 1 year, [place] 19 (MIS 2), CDT 5, PHQ 1, [...] Take 600 mg by mouth daily. HYDROcodone-acetaminophen ([place]) 5-325 MG tablet Take 1 tablet by [...] tablet Take 1 tablet by mouth daily. [place]-3 Fatty Acids (FISH OIL OMEGA-3 PO) Take [...] COPD (chronic obstructive pulmonary disease) ([facility]) Depression Pulmonary hypertension (HCC) Social History Tobacco Use Smoking status: Former Packs/day: 2.00 Types: Cigarettes Quit date: 1996 Years since quittin.5 Smokeless tobacco: Not on file Substance Use Topics Alcohol use: Never Past Surgical History: Procedure Laterality Date COLONOSCOPY N/A 05/25/2023 Performed by Samantha Nava MD at [facility] [address] END[address]COPY Family History Problem [...] >20.0 05/04/2023 Lab Results Component Value Date [id number] 05/04/2023 No results found for: RPR Imaging: head CT reviewed Testing: I reviewed the [place] CognitiveAssessment from the initial assessment with the [...] for the patient documented in this encounter [facility] 05-17-2023 Instructions FILEMON Shepherd CNP - 05/17/2023 [...] for virtual visit. documented in this encounter [facility] 04-11-2023 Miscellaneous Notes TC to patients daughter with no answer. Left VM to return call to office to receive update. JUSTINE Gupta Please reach out to patient's daughter. Let her know we refilled Robbin's Burlingame, however, she No Showed to her appt [...] of last office visit in primary care: [facility] 12/23/22 No appointment scheduled Last 2 Encounter Wt Readings: Date: Wt: 03/18/2023 127.5 kg (281 lb) 02/21/2023 129.7 kg (286 lb) Please advise. Thank you. JUSTINE Gupta documented in this encounter [facility] 04-11-2023 History of Present illness Narrative COLORECTAL [...] Patient has dementia and is daughter is salvage grinder. She noticed feces inside her vagina. She [...] Take 600 mg by mouth daily. HYDROcodone-acetaminophen ([place]) 5-325 MG tablet Take 1 tablet by [...] tablet Take 1 tablet by mouth daily. [place]-3 Fatty Acids (FISH OIL OMEGA-3 PO) Take [...] judgement RECTUM: deferred Exam chaperoned by female delinquent tax collection assistant. IMAGING: Per chart rveiew She underwent a CT scan at [facility] on 12/31/2022 with findings of mid [...] was performed when available. Samantha Nava MD [facility] [place] [address], [address] [place] [id number] p [phone] f [phone] documented in this encounter [facility] 04-05-2023 Note Mrs. Singh was see n [...] Return in 4-6 weeks for summary visit. [facility] 04-05-2023 History of Present illness Narrative Images from the original note were not included. [facility] [address] [address] Dept: [phone] Dept Loc: [phone] Visit type: [facility] Initial Assessment Visit Date: 04/11/2023 Reason [...] 82 y.o. female who presents to the [facility] for a comprehensive geriatric assessment. The patient is new to me. Referred for dementia, having nightmares, on Donepezil at , previously diagnosed with dementia. Family helping with pt's care. PMH: anxiety, depression, OA multiple joints, leg edema, CHF, CKD 3, COPD, DDD cervical and lumbar, DM2, HTN, [place], frequent falls, interstitial cystitis, urinary incontinence, neuropathy, [...] Take 600 mg by mouth daily. HYDROcodone-acetaminophen (Burling[place]) 5-325 MG tablet Take 1 tablet by [...] tablet Take 1 tablet by mouth daily. [place]-3 Fatty Acids (FISH OIL OMEGA-3 PO) Take [...] Normocephalic. Comments: No glasses. No hearing aids. [place] at times. Right Ear: External ear normal. [...] found for: FOLATE No results found for: [id number] No results found for: RPR Testing: The following tests were performed at today's visit and scanned in to the chart: MoCA score: 19, MIS score: 2 Clock drawing score: 5 PHQ-9 score: 1 SIN score: not done I independently reviewed the [place] Cognitive Assessment from 04/11/2023. 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 Activities: nephew and great granddaughter come to visit once per week, watches tv Exercise: none Finances: close to $2000 in income Healthcare Power of Market President: No Financial Power of Market President: No Living Will: No Guardian: No Code [...] Day/Night Reversal Advanced Directives Healthcare Power of Market President Living Will Recommend Financial Power of Market President Elder Law Market President List [place] Advanced Directives Information Guide Personal Care Personal Care Tips Bathing Tips Dressing Tips documented in this encounter [facility] 04-05-2023 Instructions FILEMON Shepherd CNP - 04/05/2023 [...] for summary visit. documented in this encounter [facility] 04-01-2023 Note HNO ID: [id number] Author: Leno Briggs MD Service: ? Author Type: Physician Type: Progress Notes Filed: 04/04/2023 1:02 PM Note Text: Appt cancelled since patient actually needed seen in office for a routine. [facility] 04-01-2023 History of Present illness Narrative Appt cancelled since patient actually needed seen in office for a routine. documented in this encounter [facility] 03-16-2023 Miscellaneous Notes Patient phones requesting refills as follows: Requested Prescriptions Pending Prescriptions Disp Refills metFORMIN ER (GLUCOPHAGE XR) 500 mg 24 hr tablet 180 tablet 1 Sig: Take 2 tablets by mouth daily with dinner. [facility] 12/23/2022 NOV 04/01/2023 Please review and advise. Atiya Deluna LPN documented in this encounter [facility] 03-11-2023 Miscellaneous Notes Faxed. Antionette Coleman MA Order printed and signed and ready to fax Ok to refer? Cristina Garcia Ma documented in this encounter [facility] 03-09-2023 Miscellaneous Notes The following approved medication [...] No suspicious activity was identified. 03/09/2023 by eLno Briggs MD Patient has been identified by [...] this encounter [facility] 03-09-2023 Miscellaneous Notes The following approved medication [...] sent to Gian Hines. Pharm updated in [address] Cynthia Shirley LPN LM for patient to contact [...] would help her sleep. Contact patient at [phone]. Joanne Reyes documented in this encounter [facility] 02-21-2023 Note HNO ID: [id number] Author: Radha Baldwin APRN.NURSE AIDE Service: ? Author Type: Nurse Practitioner Type: Progress Notes Filed: 02/22/2023 12:47 PM Note Text: [facility] Card[facility] ([facility]) [address] [place] [facility] [address] OUTPATIENT VISIT February 21, 2023 2:00 PM [...] stage 3, GFR 30-59 ml/min ([facility]) 01/01/2019 COPD with chronic bronchitis ([facility]) 02/15/2017 Dr. Brito Current use of proton pump inhibitor 11/25/2016 Mg checked 11/2017 DDD (degenerative disc disease), cervical 07/29/2015 DDD (degenerative disc disease), lumbar 05/08/2013 Diabetes mellitus type 2 in obese ([facility]) 06/2015 a1c 6.5% Diabetic eye exam ([facility]) 03/15/2017 Last done: 10/24/2019 No Retinopathy [...] TACO (obstructive sleep apnea) DME [employer] fx [phone] Pain due to total left knee replacement ([facility]) 06/08/2018 Personal history of colonic polyps 01/23/2016 Primary insomnia 03/16/2017 [facility] 06/26/2018 recommended Klonopin every other day for a week and then just as needed. Primary osteoarthritis of right knee 07/13/2016 Pulmonary hypertension ([facility]) 05/19/2022 Seeing pulm and cardio Pulmonary nodules 03/03/2013 Incidental non-calcified nodules 10/09/2012. Repeat CT due 06/2013 Recurrent major depressive disorder, in full remission ([facility]) 08/17/2012 Rheumatoid arthritis(714.0) Spondylosis of lumbar [...] ESOPHAGOGASTRODUODENOSCOPY TRANSORAL DIAGNOS (more content not included)... [facility] 02-18-2023 Instructions Lauren Gruber RN - 02/18/2023 [...] If you do not have a responsible route sales delivery drivers supervisor (family member or friend) with you to [...] this encounter [facility] 02-14-2023 Miscellaneous Notes Patient has been identified [...] this encounter [facility] 02-14-2023 Miscellaneous Notes The following approved medication [...] this encounter [facility] 02-11-2023 Miscellaneous Notes This patient gave consent [...] seven days of my reply. See the Checkd.In message reply for my assessment and plan. I spent a total of 5 minutes reviewing the patient's prior medical records and current request for medical advice, prescribing medications or ordering tests (if applicable), replying to the patient, and documenting the encounter. Eufemia Chapa APRN.CARINE documented in this encounter [facility] 02-10-2023 Miscellaneous Notes TAVO 12/23/22 with RR Appointment scheduled 03/11/23 with JAX Please advise. Thank you. MODESTO Gupta documented in this encounter [facility] 02-09-2023 History and physical note COLORECTAL SURGERY NEW VIRTUAL VISIT I have communicated my name and active licensure. The patient's identity and physical location were verified at the time of this visit. Either the patient or their legal payroll representative has been informed of the risks [...] Patient has dementia and is daughter is salvage grinder. She noticed feces inside her vagina. She [...] thinks this is mostly incontinence of urine. 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 Brito Current use of proton pump inhibitor 11/25/2016 Mg checked 11/2017 DDD (degenerative disc disease), cervical 07/29/2015 DDD (degenerative disc disease), lumbar 05/08/2013 Diabetes mellitus type 2 in obese ([facility]) 06/2015 a1c 6.5% Diabetic eye exam ([facility]) 03/15/2017 Last done: 10/24/2019 No Retinopathy [...] TACO (obstructive sleep apnea) [facility] fx [phone] Pain due to total left knee replacement [...] depressive disorder, in full remission ([facility]) 08/17/2012 Rheumatoid arthritis(714.0) Spondylosis of lumbar region without myelopathy or radiculopathy 05/28/2015 Status post total left knee replacement 06/08/2018 Stress incontinence 11/21/[address] Armas. Thyroid nodule 11/15/2018 Stable on 2017 Type 2 diabetes mellitus with stage 3 chronic kidney disease, without long-term current use of insulin ([facility]) 06/06/2017 Urge incontinence 11/21/2012 PAST SURGICAL [...] CYSTOSCOPY 09/21/12 EGD 10/17/2011 Dr Negrete in [place] ESOPHAGOGASTRODUODENOSCOPY TRANSORAL DIAGNOSTIC 05/16/2014 EGD ESOPHAGOGASTRODUODENOSCOPY TRANSORAL [...] No) 1 Kit 0 Walker (ULTRA-LIGHT ROLLATOR) [facility] Rolator with seat. Dx: J44.9, M54.9, [...] No history of dysuria, frequency or incontinence LICENSING AND REGISTRATION DIRECTOR: stool per vagina per HPI MUSCULOSKELETAL: Negative [...] which included preparing to see the patient, [id number] patient care, completing clinical documentation, obtaining and/or reviewing separately obtained history, performing a medically appropriate examination, counseling and educating the patient/family/caregiver, ordering medications, tests, or procedures, communicating with other HCPs (not separately reported), independently interpreting results (not separately reported), communicating results to the patient/family/caregiver, and care coordination (not separately reported). documented in this encounter [facility] 02-03-2023 Miscellaneous Notes Patient phones requesting refills as follows: Patient comment: Is it possible to have this sent to [facility] in [place], for maybe a2-week supply, and the normal [...] this encounter [facility] 01-31-2023 Miscellaneous Notes Emla Rx sent by PCP on 01/30 Charity Das APRN.CARINE documented in this encounter [facility] 01-28-2023 Miscellaneous Notes This patient gave consent [...] seven days of my reply. See the BookShout!t message reply for my assessment and plan. I spent a total of 5 minutes reviewing the patient's prior medical records and current request for medical advice, prescribing medications or ordering tests (if applicable), replying to the patient, and documenting the encounter. Eufemia Chapa APRN.CARINE documented in this encounter [facility] 01-26-2023 Miscellaneous Notes Please see TEL ENC for today regarding RN's call to pt to schedule nurse visit for urine specimen collection. Jason Mcfadden RN Discussed with Eufemia Chapa DNP. Recommend nurse visit for straight cath urine specimen. Patient has colovesical fistula and clean catch is not recommended. Eloisa Ferrara APRN.CNP documented in this encounter [facility] 01-26-2023 Miscellaneous Notes RN's call to pt to schedule office visit for urine specimen collection went to voicemail. RN left message requesting return call from pt to schedule nurse visit. Call terminated. documented in this encounter [facility] 01-25-2023 Note HNO ID: [id number] Author: Leesa Ramirez MD Service: ? Author Type: Physician Type: Progress Notes Filed: 01/25/2023 3:26 PM Note Text: Robbin Singh 1940 REFERRING PHYSICIAN: Eufemia Chapa APRN.CNP CHIEF COMPLAINT: Consult (Colovesical fistula) HPI: The patient is a 82 year old female presents with colovesical fistula. She has noted symptoms for about two months. She underwent a CT scan at [facility] on 12/31/2022 with findings of mid sigmoid diverticulitis with probable fistula to the adjacent urinary bladder. Associated colonic wall thickening and adjacent stranding noted. There is under distension of the urinary bladder with significant wall edema and adjacent inflammatory change. Patient had been scheduled for an appointment at [facility] in [place], but the family deferred this and preferred to be seen in [place]. The patient had also been scheduled for an appointment at [facility], but deferred this. The patient [...] stage 3, GFR 30-59 ml/min ([facility]) 01/01/2019 COPD with chronic bronchitis ([facility]) 02/15/2017 Dr. Brito Current use of proton pump inhibitor 11/25/2016 Mg checked 11/2017 DDD (degenerative disc disease), cervical 07/29/2015 DDD (degenerative disc disease), lumbar 05/08/2013 Diabetes mellitus type 2 in obese ([facility]) 06/2015 a1c 6.5% Diabetic eye exam ([facility]) 03/15/2017 Last done: 10/24/2019 No Retinopathy [...] TACO (obstructive sleep apnea) [facility] [phone] Pain due to total left knee replacement ([facility]) 06/08/2018 Personal history of colonic polyps 01/23/2016 Primary insomnia 03/16/2017 [facility] center 06/26/2018 recommended Klonopin every other day for a week and then just as needed. Primary osteoarthritis of right knee 07/13/2016 Pulmonary hypertension ([facility]) 05/19/2022 Seeing pulm and cardio Pulmonary nodules 03/03/2013 Incidental non-calcified nodules 10/09/2012. Repeat CT due 06/2013 Recurrent major depressive disorder, in full remission ([facility]) 08/17/2012 Rheumatoid arthritis(714.0) Spondylosis of lumbar [...] CYSTOSCOPY 09/21/12 EGD 10/17/2011 Dr Negrete in [place] ESOPHAGOGASTRODUODENOSCOPY TRANSORAL DIAGNOSTIC 05/16/2014 EGD ESOPHAGOGASTRODUODENOSCOPY TRANSORAL [...] mononitrate ER ( (more content not included)... [facility] 01-25-2023 History of Present illness Narrative Robbin Singh 1940 REFERRING PHYSICIAN: Eufemia Chapa APRN.NURSE AIDE CHIEF COMPLAINT: Consult (Colovesical fistula) HPI: The patient is a 82 year old female presents with colovesical fistula. She has noted symptoms for about two months. She underwent a CT scan at [facility] on 12/31/2022 with findings of mid sigmoid diverticulitis with probable fistula to the adjacent urinary bladder. Associated colonic wall thickening and adjacent stranding noted. There is under distension of the urinary bladder with significant wall edema and adjacent inflammatory change. Patient had been scheduled for an appointment at [facility] in [place], but the family deferred this and preferred to be seen in [place]. The patient had also been scheduled for an appointment at [facility], but deferred this. The patient [...] 07/29/2015 Chronic diastolic heart failure ([facility]), mild. 08/27/[address] Bravo. Chronic pain of both knees 11/16/2019 CKD (chronic kidney disease) stage 3, GFR 30-59 ml/min ([facility]) 01/01/2019 COPD with chronic bronchitis ([facility]) 02/15/2017 Dr. Brito Current use of proton pump inhibitor 11/25/2016 Mg checked 11/2017 DDD (degenerative disc disease), cervical 07/29/2015 DDD (degenerative disc disease), lumbar 05/08/2013 Diabetes mellitus type 2 in obese ([facility]) 06/2015 a1c 6.5% Diabetic eye exam ([facility]) 03/15/2017 Last done: 10/24/2019 No Retinopathy [...] >= 40 06/26/2018 TACO (obstructive sleep apnea) [facility] fx [phone] Pain due to total left knee replacement ([facility]) 06/08/2018 Personal history of colonic polyps 01/23/2016 Primary insomnia 03/16/2017 Brain center 06/26/2018 recommended Klonopin every other day for a week and then just as needed. Primary osteoarthritis of right knee 07/13/2016 Pulmonary hypertension ([facility]) 05/19/2022 Seeing pulm and cardio Pulmonary nodules 03/03/2013 Incidental non-calcified nodules 10/09/2012. Repeat CT due 06/2013 Recurrent major depressive disorder, in full remission ([facility]) 08/17/2012 Rheumatoid arthritis(714.0) Spondylosis of lumbar region without myelopathy or radiculopathy 05/28/2015 Status post total left knee replacement 06/08/2018 Stress incontinence 11/21/[address] Armas. Thyroid nodule 11/15/2018 Stable on 2017 Type 2 diabetes mellitus with stage 3 chronic kidney disease, without long-term current use of insulin ([facility]) 06/06/2017 Urge incontinence 11/21/2012 PAST SURGICAL [...] CYSTOSCOPY 09/21/12 EGD 10/17/2011 Dr Negrete in [place] ESOPHAGOGASTRODUODENOSCOPY TRANSORAL DIAGNOSTIC 05/16/2014 EGD ESOPHAGOGASTRODUODENOSCOPY TRANSORAL [...] Mother Lipids Mother HIGH CHOLESTEROL Heart Father CA Ischemic Heart Disease Father STROKE other (diabetic) Father Diabetes Sister Diabetes Sister Breast Cancer Sister The review of systems data was entered by the nurse and reviewed by vt Nursing Notes: Beata Doshi RN 01/25/2023 1:26 [...] this encounter [facility] 01-25-2023 Nurse Note REVIEW OF SYSTEMS: General: [...] this encounter [facility] 01-19-2023 Miscellaneous Notes Patient has been identified [...] this encounter [facility] 01-18-2023 Miscellaneous Notes Unfortunately, she has to see colorectal. I know she was given a name for a colorectal surgeon in [place] so she can call that office to [...] this encounter [facility] 01-14-2023 Miscellaneous Notes Patient has been identified [...] this encounter [facility] 01-06-2023 Miscellaneous Notes Et patient or daughter know pain med refill sent to [facility] Briggs here is her Mychart note. Patient Comment: This was supposed to be back-ordered from [facility] because they were out of stock, so she got them from [facility], but it's time for another refill so [...] this encounter [facility] 01-06-2023 Note HNO ID: [id number] Author: Eufemia Chapa APRN.NURSE AIDE Service: ? Author Type: Nurse Practitioner Type: Progress Notes Filed: 01/06/2023 3:37 PM Note Text: Female Pelvic Medicine AND Reconstructive Surgery Consult CHIEF COMPLAINT: Robbin Singh is a 82 year old female who presents for consultation requested by Madalyn Dergoot APRN.CNM for an opinion regarding Mixed urge [...] was treated. Recently diagnosed with diverticulitis at [facility] ER visit 12/31/22. 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 Avoid using a applied psychology chair to dry the vulvar area. Use cool gel packs on the vulva. documented in this encounter [facility] 01-06-2023 History of Present illness Narrative Female [...] was treated. Recently diagnosed with diverticulitis at [facility] ER visit 12/31/22. 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:2012; Last Mammogram: Her [...] CYSTOSCOPY 09/21/12 EGD 10/17/2011 Dr Negrete in [place] ESOPHAGOGASTRODUODENOSCOPY TRANSORAL DIAGNOSTIC 05/16/2014 EGD ESOPHAGOGASTRODUODENOSCOPY TRANSORAL [...] mellitus type 2 in obese ([facility]) 06/2015 a1c 6.5% Diabetic eye exam ([facility]) 03/15/2017 Last done: 10/24/2019 No Retinopathy [...] TACO (obstructive sleep apnea) [facility] [phone] Pain due to total left knee replacement ([facility]) 06/08/2018 Personal history of colonic polyps 01/23/2016 Primary insomnia 03/16/2017 [facility] 06/26/2018 recommended Klonopin every other day for a week and then just as needed. Primary osteoarthritis of right knee 07/13/2016 Pulmonary hypertension ([facility]) 05/19/2022 Seeing pulm and cardio Pulmonary nodules 03/03/2013 Incidental non-calcified nodules 10/09/2012. Repeat CT due 06/2013 Recurrent major depressive disorder, in full remission ([facility]) 08/17/2012 Rheumatoid arthritis(714.0) Spondylosis of lumbar region without myelopathy or radiculopathy 05/28/2015 Status post total left knee replacement 06/08/2018 Stress incontinence 11/21/[address] Armas. Thyroid nodule 11/15/2018 Stable on 2017 Type 2 diabetes mellitus with stage 3 chronic kidney disease, without long-term current use of insulin ([facility]) 06/06/2017 Urge incontinence 11/21/2012 FAMILY HISTORY Problem Relation Age of Onset Hypertension Mother Heart Mother Lipids Mother HIGH CHOLESTEROL Heart Father CA Ischemic Heart Disease Father STROKE other (diabetic) [...] rate Oxybutynin Other: See Comments suggerst by [employer] to stop since it can add to [...] and ROS obtained by others. Eufemia Chapa APRN.NURSE AIDE Assembler Gold Frame offered: Patient accepts, visit chaperoned by Ovidio [...] Colovesical fistula - Per discharge instructions from [facility], a consult has been placed with Dr. [...] this encounter [facility] 01-01-2023 Note . MICRO - Microbiology PROCEDURE: [...] Locations *1: This test was performed at: [facility], [address] [place] [address], [id number] , [facility] ([place]) 12-29-2022 Miscellaneous Notes Patient's daughter notified. Sun Thompson RN Patient is positive for yeast. She has dementia and sister is salvage grinder. Please notify sister of positive results. Diflucan 150 mg PO x 2 doses called in to local pharmacy. She will need to take one dose this week and another dose in 1 week. Madalyn Degroot APRN.CNM documented in this encounter [facility] 12-28-2022 Note HNO ID: [id number] Author: Madalyn Degroot APRN.CNM Service: ? Author Type: Promotion Writer Type: Progress Notes Filed: 12/28/2022 11:13 AM Note Text: Robbin Singh is a 82 year old female who presents with daughter and sister for problem visit of vaginal burning. Patient referred by PCP due to having vaginal pain and burning sensation. She thought she had a urinary tract infection but urine culture returned negative. Patient has dementia and is daughter is salvage grinder. Last week patient became concerned because she noticed feces inside her vagina. She notices stool on toilet paper after wiping. Patient's sister concerned she may have anal fissures/fistula. She has a history of mixed incontinence and wears Depends. Denies any vaginal discharge, odor or itching. 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 Brito Current use of proton pump inhibitor 11/25/2016 Mg checked 11/2017 DDD (degenerative disc disease), cervical 07/29/2015 DDD (degenerative disc disease), lumbar 05/08/2013 Diabetes mellitus type 2 in obese ([facility]) 06/2015 a1c 6.5% Diabetic eye exam ([facility]) 03/15/2017 Last done: 10/24/2019 No Retinopathy [...] TACO (obstructive sleep apnea) [facility]x [phone] Pain due to total left knee replacement [...] CYSTOSCOPY 09/21/12 EGD 10/17/2011 Dr Negrete in [place] ESOPHAGOGASTRODUODENOSCOPY TRANSORAL DIAGNOSTIC 05/16/2014 EGD ESOPHAGOGASTRODUODENOSCOPY TRANSORAL DIAGNOSTIC 09/12/14 EGD ESOPHAGOGASTRODUODENOSCOPY TRANSORAL DIAGNOSTIC 01/06/2017 EGD ESOPHAGOGASTRODUODENOSCOPY TRANSORAL DIAGNOSTIC 07/21/2020 EGD REMOVE CATARACT, INSERT LENS, INTRACAPSUL Bilateral 2008 FAMILY HISTORY Problem Relation Age of Onset Hypertension Mother Heart Mother Lipids Mother HIGH CHOLESTEROL Heart Father CA Ischemic Heart Disease Father STROKE other (diabetic) Father Diabetes Sister Diabetes Sister Breast Cancer Sister Social History Tobacco Use Smoking status: Former Packs/day: 3.0 (more content not included)... [facility] 12-27-2022 Miscellaneous Notes Urine culture was negative. See SpiralFrog message. documented in this encounter [facility] 12-24-2022 Miscellaneous Notes Spoke to pt's daughter [...] this encounter [facility] 12-23-2022 Note HNO ID: [id number] Author: Stephani Crooks PA-C Service: ? Author Type: Physician Skilled Trades Teacher Type: Progress Notes Filed: 12/23/2022 2:24 PM [...] 07/29/2015 Chronic diastolic heart failure ([facility]), mild. 08/27/[address] Bravo. Chronic pain of both knees 11/16/2019 CKD (chronic kidney disease) stage 3, GFR 30-59 ml/min ([facility]) 01/01/2019 COPD with chronic bronchitis ([facility]) 02/15/2017 Dr. Brito Current use of proton pump inhibitor 11/25/2016 Mg checked 11/2017 DDD (degenerative disc disease), cervical 07/29/2015 DDD (degenerative disc disease), lumbar 05/08/2013 Diabetes mellitus type 2 in obese ([facility]) 06/2015 a1c 6.5% Diabetic eye exam ([facility]) 03/15/2017 Last done: 10/24/2019 No Retinopathy [...] TACO (obstructive sleep apnea) [facility] [employer] [facility] [phone] Pain due to total left knee replacement [...] CYSTOSCOPY 09/21/12 EGD 10/17/2011 Dr Negrete in [place] ESOPHAGOGASTRODUODENOSCOPY TRANSORAL DIAGNOSTIC 05/16/2014 EGD ESOPHAGOGASTRODUODENOSCOPY TRANSORAL DIAGNOSTIC 09/12/14 EGD ESOPHAGOGASTRODUODENOSCOPY TRANSORAL DIAGNOSTIC 01/06/2017 EGD ESOPHAGOGASTRODUODENOSCOPY TRANSORAL DIAGNOSTIC 07/21/2020 EGD REMOVE CATARACT, INSERT LENS, INTRACAPSUL Bilateral 2008 Family History FAMILY HISTORY Pr (more content not included)... [facility] 12-23-2022 History of Present illness Narrative Chief [...] stage 3, GFR 30-59 ml/min ([facility]) 01/01/2019 COPD with chronic bronchitis ([facility]) 02/15/2017 Dr. Brito Current use of proton pump inhibitor 11/25/2016 Mg checked 11/2017 DDD (degenerative disc disease), cervical 07/29/2015 DDD (degenerative disc disease), lumbar 05/08/2013 Diabetes mellitus type 2 in obese ([facility]) 06/2015 a1c 6.5% Diabetic eye exam ([facility]) 03/15/2017 Last done: 10/24/2019 No Retinopathy [...] TACO (obstructive sleep apnea) [facility] [phone] Pain due to total left knee replacement [...] depressive disorder, in full remission ([facility]) 08/17/2012 Rheumatoid arthritis(714.0) Spondylosis of lumbar region without myelopathy or radiculopathy 05/28/2015 Status post total left knee replacement 06/08/2018 Stress incontinence 11/21/[address] Armas. Thyroid nodule 11/15/2018 Stable on 2017 Type 2 diabetes mellitus with stage 3 chronic kidney disease, without long-term current use of insulin ([facility]) 06/06/2017 Urge incontinence 11/21/2012 Previous Surgical [...] CYSTOSCOPY 09/21/12 EGD 10/17/2011 Dr Negrete in [place] ESOPHAGOGASTRODUODENOSCOPY TRANSORAL DIAGNOSTIC 05/16/2014 EGD ESOPHAGOGASTRODUODENOSCOPY TRANSORAL DIAGNOSTIC 09/12/14 EGD ESOPHAGOGASTRODUODENOSCOPY TRANSORAL DIAGNOSTIC 01/06/2017 EGD ESOPHAGOGASTRODUODENOSCOPY TRANSORAL DIAGNOSTIC 07/21/2020 EGD REMOVE CATARACT, INSERT LENS, INTRACAPSUL Bilateral 2008 Family History FAMILY HISTORY Problem Relation Age of Onset Hypertension Mother Heart Mother Lipids Mother HIGH CHOLESTEROL Heart Father CA Ischemic Heart Disease Father STROKE other (diabetic) Father Diabetes Sister Diabetes Sister Breast Cancer Sister Patient Allergies ALLERGIES Allergen Reactions Bactrim [Sulfametho* Itching Codeine Mental Status Change Garlic Oil Other: See Comments Lexapro [Escitalopr* Other: See Comments rapid heart rate Oxybutynin Other: See Comments suggerst by [employer] to stop since it can add to [...] of breath (With Spacer). Walker (ULTRA-LIGHT ROLLATOR) [facility] Rolator with seat. Dx: J44.9, M54.9, [...] that they can go to [facility] and request virtual visit. - CONSULT [...] this encounter [facility] 12-16-2022 Miscellaneous Notes Daughter Mariela notified of [...] this encounter [facility] 12-13-2022 Miscellaneous Notes Last office visit: 11/04/22 F/u scheduled: 03/11/23 Cristina Garcia Ma documented in this encounter [facility] 12-07-2022 Miscellaneous Notes The following approved medication [...] daily. TAVO: 11/04/22 NOV: 03/11/23 Last Refill: [place]: 11/09/22 #60 0 refills [facility]: 11/19/22 #90 5 refills.Not due for refill yet Huong Payan LPN documented in this encounter [facility] 12-02-2022 Miscellaneous Notes The following approved medication requests have been transmitted electronically. Requested Prescriptions Signed Prescriptions Disp Refills furosemide (LASIX) 20 mg tablet 180 tablet 1 Sig: Take 1 tablet by mouth twice daily. Authorizing Provider: STEPHANI CROOKS PA-C Patient phones requesting refills as follows: Pt needs the director long term care RX sent in. See below Requested Prescriptions Pending Prescriptions Disp Refills furosemide (LASIX) 20 mg tablet 180 tablet 1 Sig: Take 1 tablet by mouth twice daily. Please review and advise. Brianne Chiang LPN I'm not sure what they need? Does she need a new short term prescription to be sent or the mail order refilled. Stephani Crooks PA-C Please see Myfacepagehart message documented in this encounter [facility] 11-19-2022 Miscellaneous Notes Patient has been identified [...] this encounter [facility] 11-19-2022 Miscellaneous Notes Patient has been identified [...] this encounter [facility] 11-16-2022 Miscellaneous Notes Patient has been identified [...] this encounter [facility] documented in this encounter [facility]-03-2023 Miscellaneous Notes* Telephone Encounter - Stephani Crooks [...] in this encounterSelect Medical [facility]ty [facility]01-03-2023 Miscellaneous Notes* Telephone Encounter - Nel Cope [...] in this encounterSelect Medical Specialty Hospital [facility]12-30-2022 Miscellaneous Notes* Telephone Encounter - Michelle Bucio [...] in this encounterSelect Medical Specialty [facility]12-29-2022 Instructions* Patient Instructions* Stephani Crooks PA-C - 11/04/2022 1:21 PM EST Stop prozac- restart zoloft. Decrease metformin to 1000mg at night. See if this helps with the nausea. Start actos for help on Diabetes management since we are decreasing metformin. Labs today. documented in this encounterSelect Medical Specialty [facility]12-29-2022 History of Present illness Narrative* Stephani Crooks [...] stage 3, GFR 30-59 ml/min ([facility]) 01/01/2019 COPD with chronic bronchitis ([facility]) 02/15/2017 Dr. Brito Current use of proton pump inhibitor 11/25/2016 Mg checked 11/2017 DDD (degenerative disc disease), cervical 07/29/2015 DDD (degenerative disc disease), lumbar 05/08/2013 Diabetes mellitus type 2 in obese ([facility]) 06/2015 a1c 6.5% Diabetic eye exam ([facility]) 03/15/2017 Last done: 10/24/2019 No Retinopathy [...] TACO (obstructive sleep apnea) DME [employer] fx [phone] Pain due to total left knee replacement (HCC) 06/08/2018 Personal history of colonic polyps 01/23/2016 Primary insomnia 03/16/2017 Brain center 06/26/2018 recommended Klonopin every other day for a week and then just as needed. Primary osteoarthritis of right knee 07/13/2016 Pulmonary hypertension ([facility]) 05/19/2022 Seeing pulm and cardio Pulmonary nodules 03/03/2013 Incidental non-calcified nodules 10/09/2012. Repeat CT due 06/2013 Recurrent major depressive disorder, in full remission ([facility]) 08/17/2012 Rheumatoid arthritis(714.0) Spondylosis of lumbar region without myelopathy or radiculopathy 05/28/2015 Status post total left knee replacement 06/08/2018 Stress incontinence 11/21/[address] Armas. Thyroid nodule 11/15/2018 Stable on 2017 Type 2 diabetes mellitus with stage 3 chronic kidney disease, without long-term current use of insulin ([facility]) 06/06/2017 Urge incontinence 11/21/2012 Previous Surgical [...] CYSTOSCOPY 09/21/12 EGD 10/17/2011 Dr Negrete in [place] ESOPHAGOGASTRODUODENOSCOPY TRANSORAL DIAGNOSTIC 05/16/2014 EGD ESOPHAGOGASTRODUODENOSCOPY TRANSORAL DIAGNOSTIC 09/12/14 EGD ESOPHAGOGASTRODUODENOSCOPY TRANSORAL DIAGNOSTIC 01/06/2017 EGD ESOPHAGOGASTRODUODENOSCOPY TRANSORAL DIAGNOSTIC 07/21/2020 EGD REMOVE CATARACT, INSERT LENS, INTRACAPSUL Bilateral 2008 Family History FAMILY HISTORY Problem Relation Age of Onset Hypertension Mother Heart Mother Lipids Mother HIGH CHOLESTEROL Heart Father CA Ischemic Heart Disease Father STROKE other (diabetic) Father Diabetes Sister Diabetes Sister Breast Cancer Sister Patient Allergies ALLERGIES Allergen Reactions Bactrim [Sulfametho* Itching Codeine Mental Status Change Garlic Oil Other: See Comments Lexapro [Escitalopr* Other: See Comments rapid heart rate Oxybutynin Other: See Comments suggerst by [employer] to stop since it can add to [...] in this encounterSelect Medical [facility]ty [facility]12-08-2022 Miscellaneous Notes* Telephone Encounter - Julia Bradley RN - 10/14/2022 10:55 AM EST Opened In Error documented in this encounterSelect Medical Specialty [facility]11-09-2022 Miscellaneous Notes* Telephone Encounter - Antionette Coleman MA - 09/15/2022 8:15 AM EST Medication attached to another phone encounter. Antionette Coleman MA documented in this encounterSelect Medical Specialty [facility]11-09-2022 Miscellaneous Notes* Telephone Encounter - Antionette Coleman [...] in this encounterSelect Medical [facility]ty [facility]11-01-2022 Miscellaneous Notes* Telephone Encounter - Leno Briggs [...] in this encounterSelect Medical [facility]ty [facility]10-21-2022 Miscellaneous Notes* Telephone Encounter - Leno Briggs [...] in this encounterSelect Medical [facility]ty [facility] [place] [facility]09-28-2022 Miscellaneous Notes* Telephone Encounter - Stephani Crooks [...] in this encounterSelect Medical Specialty [facility]09-20-2022 Miscellaneous Notes* Telephone Encounter - Antionette Coleman [...] help with ADL's ie. Bathing, grooming, mobility. [facility] [employer] ph. [phone] also will assess if patient are eligible for Medicaid as that is a requirement for Passport program. Sw looked back through notes and does not see any mention in regards to previous Passport referral or notes in regards to patient already having Passport services. Passport usually helps with home safety modifications, day care home mother, home delivered meals, medical alert button costs if eligible. If patient would be open to Sw referring, [facility] [employer] would do the in home assessment to seeif eligible. * Telephone Encounter - Antionette Coleman MA - 07/16/2022 10:00 AM EDT How do we find out if that patient is eligible for Passport? Antionette Coleman MA * Telephone Encounter - ZULEMA Salazar - 07/15/2022 1:54 PM EDT Sw has had patient's purchase motorized scooters from [employer] in [place] ph.[phone] or fax#[phone]. I have not found insurance to be covering the cost of scooters unless they may be eligible for [facility] on Aging program. * Telephone Encounter [...] anyone. I told patient I would ask Sql Server Architect if she had any other ideas on places for motorized scooters for insurance. If not we have to wait on [facility]. Antionette Coleman MA * Telephone Encounter - Antionette Coleman MA - 07/07/2022 11:20 AM EDT Tried calling [employer] and they do not have motorized scooters. Antionette Coleman MA * Telephone Encounter - Cynthia Shirley LPN - 07/06/2022 10:06 AM EDT Received fax from [facility] that wheelchair that was ordered for pt is on backorder and they are unable to obtain. Advised pt of same and she will check and see if there is anywhere else her insurance will approve of that office can fax order to to see if they can get wheelchair for pt. She will callback with information. Cynthia Shirley LPN documented in this encounterSelect Medical Specialty [facility]09-19-2022 Miscellaneous Notes* Telephone Encounter - Joy Hicks Ma - 07/26/2022 10:51 AM EDT Please see pt daughter message. Joy Hicks Ma documented in this encounterSelect Medical Specialty [facility]08-30-2022 Miscellaneous Notes* Telephone Encounter - Cynthia Shirley LPN - 07/06/2022 11:18 AM EDT Left message of same on daughter, Shae identified vm. Cynthia Shirley LPN * Telephone Encounter - Leno Briggs MD - 07/06/2022 11:06 AM EDT Let daughter know electrolyte panel was ok. documented in this encounterSelect Medical Specialty [facility]08-30-2022 Miscellaneous Notes* Telephone Encounter - Cynthia Shirley [...] in this encounterSelect Medical Specialty Hospital - [facility]08-29-2022 History of Present illness Narrative* Leno Briggs MD - 07/05/2022 3:20 PM EDT Chief Complaint Patient presents with: Follow Up: [facility] Robbin Singh is a 81 year old female who presents here today for 4 week follow up on Depression/HTN/Edema and Medication. Patient indicated that she contacted insurance and they will approve a scooter for patient if recommended by her PCP. They will pay for 80-90% and can be faxed to [facility] [phone]. Patient here with her daughter today. Patient has recently been released for [facility] services due to meeting goals. At [...] in the next few months. Taking the [place] twice a day does help her knee [...] stage 3, GFR 30-59 ml/min ([facility]) 01/01/2019 COPD with chronic bronchitis ([facility]) 02/15/2017 Dr. Brito Current use of proton pump inhibitor 11/25/2016 Mg checked 11/2017 DDD (degenerative disc disease), cervical 07/29/2015 DDD (degenerative disc disease), lumbar 05/08/2013 Diabetes mellitus type 2 in obese ([facility]) 06/2015 a1c 6.5% Diabetic eye exam ([facility]) 03/15/2017 Last done: 10/24/2019 No Retinopathy [...] TACO (obstructive sleep apnea) DME [employer] fx [phone] Pain due to total left knee replacement [...] depressive disorder, in full remission ([facility]) 08/17/2012 Rheumatoid arthritis(714.0) Spondylosis of lumbar [...] CYSTOSCOPY 09/21/12 EGD 10/17/2011 Dr Negrete in [place] ESOPHAGOGASTRODUODENOSCOPY TRANSORAL DIAGNOSTIC 05/16/2014 EGD ESOPHAGOGASTRODUODENOSCOPY TRANSORAL DIAGNOSTIC 09/12/14 EGD ESOPHAGOGASTRODUODENOSCOPY TRANSORAL DIAGNOSTIC 01/06/2017 EGD ESOPHAGOGASTRODUODENOSCOPY TRANSORAL DIAGNOSTIC 07/21/2020 EGD REMOVE CATARACT, INSERT LENS, INTRACAPSUL Bilateral 2008 Family History FAMILY HISTORY Problem Relation Age of Onset Hypertension Mother Heart Mother Lipids Mother HIGH CHOLESTEROL Heart Father CA Ischemic Heart Disease Father STROKE other (diabetic) Father Diabetes Sister Diabetes Sister Breast Cancer Sister Patient Allergies ALLERGIES Allergen Reactions Bactrim [Sulfametho* Itching Codeine Mental Status Change Garlic Oil Other: See Comments Lexapro [Escitalopr* Other: See Comments rapid heart rate Oxybutynin Other: See Comments suggerst by [employer] to stop since it can add to [...] ICD9: 338.4, ICD10: G89.4 - stable with [place] 4. Bilateral leg edema - ICD9: 782.3, [...] in this encounterSelect Medical [facility]ty [facility]08-28-2022 Miscellaneous Notes* Telephone Encounter - Leno Briggs [...] message. Cynthia Shirley LPN documented in this encounterSelect Medical [facility]ty [facility]08-23-2022 Miscellaneous Notes* Telephone Encounter - Leno Briggs [...] 07/05/22 Cynthia Shirley LPN documented in this encounterSelect Medical [facility]ty [facility]08-22-2022 Miscellaneous Notes* Telephone Encounter - Leno Briggs [...] in this encounterSelect Medical [facility]08-08-2022 Miscellaneous Notes* Telephone Encounter - Cynthia Shirley [...] 05/24/22 F/u scheduled: 07/05/22 Last refilled on: [place] #[id number] on 06/01/22 Cristina Garcia Ma documented in this encounterSelect Medical [facility]ty [facility]08-08-2022 Miscellaneous Notes* Telephone Encounter - Cristina Garcia Ma - 06/14/2022 12:40 PM EDT Last office visit: 05/24/22 F/u scheduled: 07/05/22 Cristina Garcia Ma documented in this encounterSelect Medical [facility]ty [facility]08-07-2022 History of Present illness Narrative* Leno Briggs MD - 06/13/2022 1:15 PM EDT Patient's home health 485 form / care plan for certification period 05/21/2022 to 07/19/2022 reviewedand signed. Relevant medical records were reviewed. Changes were communicated to home health agency documented in this encounterSelect Medical [facility]ty [facility]08-03-2022 Miscellaneous Notes* Telephone Encounter - Cristina Garcia Ma - 06/09/2022 12:08 PM EDT Janey notified and voiced understanding. Cristina Garcia Ma * Telephone Encounter - Leno Briggs MD - 06/09/2022 12:02 PM EDT Ok to give verbal ok for delay in care. * Telephone Encounter - Leesa Oro RN - 06/08/2022 4:22 PM EDT Janey- - [facility]- reports she is to see patient bi-weekly, but patient is a little overwhelmed right now, and asked SW to come next week. SW asking for verbal approval for delay of care. Please phone Janey with verbal. documented in this encounterSelect Medical Specialty [facility]07-28-2022 Miscellaneous Notes* Telephone Encounter - Cristina Garcia Ma - 06/03/2022 1:25 PM EDT Addressed in [employer] message. Cristina Garcia Ma * Telephone Encounter - Cristina Garcia Ma - 06/03/2022 1:12 PM EDT Awaiting response from pt on if she has received her 90 day supply from Mail order pharmacy yet? Cristina Garcia Ma documented in this encounterSelect Medical [facility]ty [facility]07-28-2022 Miscellaneous Notes* Telephone Encounter - Antionette Coleman [...] for functional mobility training. documented in this encounterSelect Medical Specialty [facility]07-26-2022 Miscellaneous Notes* Telephone Encounter - Octavio Hampton [...] in this encounterSelect Medical Specialty [facility]07-21-2022 Miscellaneous Notes* Telephone Encounter - Cynthia Shirley LPN - 05/27/2022 11:49 AM EDT Orders faxed as requested to DME [phone]. Cynthia Wander Rosemary GONSALEZ * Telephone Encounter [...] was told the officewould have to call [facility] at [phone]. If it is sent there, then it [...] in this encounterSelect Medical [facility]07-20-2022 Miscellaneous Notes* Telephone Encounter - Shira Shell Cma - 05/26/2022 9:15 AM EDT Patient daughter notified and verbalized understanding Shira Shell Cma * Telephone Encounter - Stephani Crooks PA-C - 05/26/2022 9:00 AM EDT Repeat urine is better and culture negative. Stephani Crooks PA-C documented in this encounterSelect Medical [facility]ty [facility]07-20-2022 Miscellaneous Notes* Telephone Encounter - Leesa Oro RN - 05/26/2022 8:30 AM EDT Left detailed vm on identified vm with provider's message below. * Telephone Encounter - Leno Briggs MD - 05/25/2022 8:50 PM EDT Let [place] know I'm fine giving order for her to see her one more time. If she needs more visits letme know. * Telephone Encounter - Shelby Rogel LPN - 05/25/2022 3:46 PM EDT Shanta, director social with [facility] calling for verbal order to see pt one more time to follow up on referrals and community resources. Please advise Shanta. Shelby Rogel LPN documented in this encounterSelect Medical [facility]ty [facility]07-18-2022 History of Present illness Narrative* Leno Briggs [...] cancelled them. patient does not remember this. [facility] has been out to see her encluding SW, correction and will also include PHYSICAL THERAPY. There [...] stage 3, GFR 30-59 ml/min ([facility]) 01/01/2019 COPD with chronic bronchitis ([facility]) 02/15/2017 Dr. Brito Current use of proton pump inhibitor 11/25/2016 Mg checked 11/2017 DDD (degenerative disc disease), cervical 07/29/2015 DDD (degenerative disc disease), lumbar 05/08/2013 Diabetes mellitus type 2 in obese ([facility]) 06/2015 a1c 6.5% Diabetic eye exam ([facility]) 03/15/2017 Last done: 10/24/2019 No Retinopathy [...] TACO (obstructive sleep apnea) DME [employer] [phone] Pain due to total left knee replacement [...] depressive disorder, in full remission ([facility]) 08/17/2012 Rheumatoid arthritis(714.0) Spondylosis of lumbar region without myelopathy or radiculopathy 05/28/2015 Status post total left knee replacement 06/08/2018 Stress incontinence 11/21/[address] Armas. Thyroid nodule 11/15/2018 Stable on US 2017 Type 2 diabetes mellitus with stage 3 chronic kidney disease, without long-term current use of insulin ([facility]) 06/06/2017 Urge incontinence 11/21/2012 Previous Surgical [...] CYSTOSCOPY 09/21/12 EGD 10/17/2011 Dr Negrete in [place] ESOPHAGOGASTRODUODENOSCOPY TRANSORAL DIAGNOSTIC 05/16/2014 EGD ESOPHAGOGASTRODUODENOSCOPY TRANSORAL DIAGNOSTIC 09/12/14 EGD ESOPHAGOGASTRODUODENOSCOPY TRANSORAL DIAGNOSTIC 01/06/2017 EGD ESOPHAGOGASTRODUODENOSCOPY TRANSORAL DIAGNOSTIC 07/21/2020 EGD REMOVE CATARACT, INSERT LENS, INTRACAPSUL Bilateral 2008 Family History FAMILY HISTORY Problem Relation Age of Onset Hypertension Mother Heart Mother Lipids Mother HIGH CHOLESTEROL Heart Father CA Ischemic Heart Disease Father STROKE other (diabetic) Father Diabetes Sister Diabetes Sister Breast Cancer Sister Patient Allergies ALLERGIES Allergen Reactions Bactrim [Sulfametho* Itching Codeine Mental Status Change Garlic Oil Other: See Comments Lexapro [Escitalopr* Other: See Comments rapid heart rate Oxybutynin Other: See Comments suggerst by [employer] to stop since it can add to [...] stage 3a or 3b CKD ([facility]) - ICD9: 250.40, 585.3, ICD10: E11.22, N18.30 (primary diagnosis) uncontrolled - Continue current medications - BP goal of <130/80 - LDL goal of <100 - Recently restarted on metformin and increased to two tabs twice a day. 2. Diabetes mellitus type 2 in obese ([facility]) - ICD9: 250.00, 278.00, ICD10: E11.69, E66.9 - As per #1 3. Diabetic eye exam ([facility]) - ICD9: V72.0, 250.00, ICD10: Z01.00, [...] stage 3a or 3b CKD ([facility]) - ICD9: 585.3, ICD10: N18.30 - Appears stable. Will need to check renal panel in a few weeks wit being on the aldactone 14. Obesity, Class III, BMI 40-49.9 (morbid obesity) ([facility]) - ICD9: 278.01, ICD10: E66.01 Stable [...] in this encounterSelect Medical Specialty [facility]07-13-2022 Miscellaneous Notes* Telephone Encounter - Leno Briggs [...] of insurance card and med list to [facility] fax#[phone]. Also let daughter know this was done. * Telephone Encounter - ZULEMA Salazar - 05/18/2022 7:24 AM EDT If staff could let patient sister Gail know what comes of response to home health services FAITH would appreciate. Gail ph.[phone]. * Telephone Encounter - ZULEMA Salazar - [...] be then faxed to home health agency. [facility] fax#[phone]. [facility] fax#[phone], [facility] fax [phone] are other home health care options if [facility] does not work. Sw will be out [...] health agencies in the community that provide correction and PT ie. [facility]. Faith noted for Medicare a patient would need to be considered home bound. Home Health agencies also look to provider notes to see about home health being discussed at . Faith also noted [facility] program[facility] has nursing,social work, therapy and [employer] students that go to patients homes that [...] gave verbal permission to speak with Gail ph.[phone]. Sw will try call again tomorrow 05/14 @10am to discuss transportation resources. documented in this encounterSelect Medical Specialty [facility]07-12-2022 History of Present illness Narrative* TRI Silva - 05/18/2022 2:05 PM EDT PULM FUNCTION SMARTBLOCK: Provider: Stephani Crooks PA-C Assisting Tech: TRI Silva Spirometry w/BD: 1 documented in this encounterSelect Medical Specialty [facility]07-07-2022 Miscellaneous Notes* Telephone Encounter - Stephani Crooks PA-C - 05/13/2022 2:39 PM EDT Consult placed. * Telephone Encounter - Cynthia Shirley LPN - 05/13/2022 2:31 PM EDT Spoke with pt. She is agreeable to consult with SW. Pt would like SW to contact her sister Gail. Spoke with Gail and her contact # is [phone]. Gail states she will relay information to [...] She states Stephani suggested patient speak to Sql Server Architect about transportation issues. Patient's sister says she would likeher sister to speak to a director social. Sister is not listed as an emergency contact or POA. Marie Kumar RN documented in this encounterSelect Medical Specialty [facility]07-05-2022 Miscellaneous Notes* Telephone Encounter - Stephani Crooks [...] to increase of metformin. Uses [facility]. Pt denies any s/s uti. Will come [...] in this encounterSelect Medical Specialty [facility]07-05-2022 Miscellaneous Notes* Telephone Encounter - [place] [...] daughter. Cynthia Shirley LPN documented in this encounterSelect Medical Specialty [facility]07-05-2022 Miscellaneous Notes* Telephone Encounter - Cynthia Shirley LPN - 05/11/2022 8:42 AM EDT Pt requesting refills TAVO 05/07/22 NOV 07/07/22 Cynthia Shirley LPN documented in this encounterSelect Medical Specialty [facility]07-01-2022 Instructions* Patient Instructions* Stephani Crooks PA-C - 05/07/2022 1:46 PM EDT Please reschedule with pulm and cardiology. documented in this encounterSelect Medical Specialty [facility]07-01-2022 History of Present illness Narrative* Stephani Crooks [...] stage 3, GFR 30-59 ml/min ([facility]) 01/01/2019 COPD with chronic bronchitis ([facility]) 02/15/2017 Dr. Brito Current use of proton pump inhibitor 11/25/2016 Mg checked 11/2017 DDD (degenerative disc disease), cervical 07/29/2015 DDD (degenerative disc disease), lumbar 05/08/2013 Diabetes mellitus type 2 in obese ([facility]) 06/2015 a1c 6.5% Diabetic eye exam ([facility]) 03/15/2017 Last done: 10/24/2019 No Retinopathy [...] TACO (obstructive sleep apnea) DME [employer] [phone] Pain due to total left knee replacement ([facility]) 06/08/2018 Personal history of colonic polyps 01/23/2016 Primary insomnia 03/16/2017 Brain center 06/26/2018 recommended Klonopin every other day for a week and then just as needed. Primary osteoarthritis of right knee 07/13/2016 Pulmonary nodules 03/03/2013 Incidental non-calcified nodules 10/09/2012. Repeat CT due 06/2013 Recurrent major depressive disorder, in full remission ([facility]) 08/17/2012 Rheumatoid arthritis(714.0) Spondylosis of lumbar region without myelopathy or radiculopathy 05/28/2015 Status post total left knee replacement 06/08/2018 Stress incontinence 11/21/[address] Armas. Thyroid nodule 11/15/2018 Stable on US 2017 Type 2 diabetes mellitus with stage 3 chronic kidney disease, without long-term current use of insulin ([facility]) 06/06/2017 Urge incontinence 11/21/2012 Previous Surgical History PAST SURGICAL HISTORY Procedure Laterality Date CHOLECYSTECTOMY HX 10/30/1997 COLONOSCOP W/ OR W/O [facility] SPEC 11/29/12 Colonoscopy repeat 3 years COLONOSCOP W/ OR W/O [facility] SPEC 01/28/16 Colonoscopy with mac COLONOSCOPY & POLYPECTOMY ~2007 2 polyps COLONOSCOPY & POLYPECTOMY ~2001 7 polyps COLONOSCOPY & POLYPECTOMY 11/30/2011 CYSTOSCOPY 09/21/12 EGD 10/17/2011 Dr Negrete in [place] EGD W/O OR W/BRUSH/WASH 05/16/2014 EGD EGD W/O OR W/BRUSH/WASH 09/12/14 EGD EGD W/O OR W/BRUSH/WASH 01/06/2017 EGD EGD W/O OR W/BRUSH/WASH 07/21/2020 EGD REMOVE CATARACT, INSERT LENS, INTRACAPSUL Bilateral 2008 TOTAL KNEE REPLACEMENT Left 06/08/2012 Family History FAMILY HISTORY Problem Relation Age of Onset Hypertension Mother Heart Mother Lipids Mother HIGH CHOLESTEROL Heart Father CA Ischemic Heart Disease Father STROKE other (diabetic) Father Diabetes Sister Diabetes Sister Breast Cancer Sister Patient Allergies ALLERGIES Allergen Reactions Bactrim [Sulfametho* Itching Codeine Mental Status Change Garlic Oil Other: See Comments Lexapro [Escitalopr* Other: See Comments rapid heart rate Oxybutynin Other: See Comments suggerst by [employer] to stop since it can add to [...] mouth once daily. ) Walker (ULTRA-LIGHT ROLLATOR) [facility] Rolator with seat. Dx: J44.9, M54.9, [...] 5. COPD with chronic bronchitis ([facility]) - ICD9: 491.20, ICD10: J44.9 Patient [...] stage 3a or 3b CKD ([facility]) - ICD9: 585.3, ICD10: N18.30 10. Diabetes mellitus type 2 in obese ([facility]) - ICD9: 250.00, 278.00, ICD10: E11.69, [...] [facility]* Diagnosis Type 2 diabetes mellitus [...] this encounter [facility] Miscellaneous Notes* Telephone Encounter - Cynthia Shirley [...] Tue. Cynthia Shirley LPN documented [facility] Miscellaneous Notes* Telephone Encounter - Antionette Coleman [...] 04/21/2022 2:50 PM EDT Pharmacy verified in [facility] Patient has been identified by name [...] [facility] Miscellaneous Notes* Telephone Encounter - Leno Briggs [...] LPN * [place] [facility] [place] 9:45 AM EDT Patient has [...] pharmacy. No need to notify patient[facility] Miscellaneous Notes* Telephone Encounter - Cynthia Shirley [...] in [facility] Miscellaneous Notes* Telephone Encounter - Shelby Rogel LPN - 03/22/2022 4:56 PM EDT Pt scheduled for apt on 04-07-22. Shelby Rogel LPN * Telephone Encounter - Stephani Crooks PA-C - 03/22/2022 3:15 PM EDT Patient needs to reschedule her visit with dr. Briggs. Stephani Crooks PA-C * [place] [facility] [place] 2:19 PM EDT Patient has [...] No need to notify patient. [facility] NoteHNO ID: [id number] Author: MODESTO Salmeron Service: Radiology Author Type: Clinical Customer Service Technician Type: Progress Notes Filed: 07/20/2021 2:36 PM [...] BY: MODESTO Salmeron July 20, 2021 2:35 PMFair[id number] History of Past illness Narrative* Problem Noted [...] of 06/22/2023) [facility] History of Past illness Narrative* Problem Noted [...] of 06/22/2023) [facility] History of Past illness Narrative* Problem Noted [...] of 07/06/2023) [facility] History of Past illness Narrative* Problem Noted [...] of 08/24/2023) [facility] History of Past illness Narrative* Problem Noted [...] of 09/02/2023) [facility] History of Past illness Narrative* Problem Noted [...] of 09/20/2023) [facility] History of Past illness Narrative* Problem Noted [...] of 03/22/2022) [facility] History of Past illness Narrative* Problem Noted [...] of 03/31/2022) [facility] History of Past illness Narrative* Problem Noted [...] of 03/31/2022) [facility] History of Past illness Narrative* Problem Noted [...] of 04/22/2022) [facility] History of Past illness Narrative* Problem Noted [...] of 04/30/2022) [facility] of Past illness Narrative* Problem Noted [...] of 05/07/2022) [facility] of Past illness Narrative* Problem Noted [...] of 05/11/2022) [facility] History of Past illness Narrative* Problem Noted [...] of 05/11/2022) [facility] of Past illness Narrative* Problem Noted [...] of 05/12/2022) [facility] of [facility] Narrative* Problem Noted [...] of 05/13/2022) [facility] of [facility] Narrative* Problem Noted [...] of 05/18/2022) [facility] of [facility] Narrative* Problem Noted [...] of 05/19/2022) [facility] of Past [facility] Narrative* Problem Noted [...] incontinence 11/21/2012 03/24/2020 Overview: Did see Dr. Arams Bronchitis 11/09/2012 03/02/2013 Sinus infection 11/09/2012 03/02/2013 Diabetes mellitus 11/09/2012 11/14/2013 COPD (chronic obstructive pulmonary disease) 11/09/2012 documented as of this encounter (statuses as of 05/24/2022) [facility] History of Past illness Narrative* Problem Noted [...] of 05/26/2022) [facility] History of Past illness Narrative* Problem Noted [...] of 05/27/2022) [facility] of [facility] Narrative* Problem Noted [...] of 06/01/2022) [facility] of [facility] Narrative* Problem Noted [...] of 06/03/2022) [facility] of [facility] illness Narrative* Problem Noted [...] of 06/03/2022) [facility] of [facility] Narrative* Problem Noted [...] of 06/09/2022) [facility] History of Past illness Narrative* Problem Noted [...] of 06/14/2022) [facility] of [facility] Narrative* Problem Noted [...] of 06/14/2022) [facility] History of Past illness Narrative* Problem Noted [...] of 06/14/2022) [facility] of Past illness Narrative* Problem Noted [...] of 06/15/2022) [facility] of [facility] Narrative* Problem Noted [...] of 06/29/2022) [facility] of [facility] Narrative* Problem Noted [...] of 06/29/2022) [facility] of [facility] Narrative* Problem Noted [...] of 07/04/2022) [facility] of [facility] Narrative* Problem Noted [...] of 07/05/2022) [facility] of [facility] Narrative* Problem Noted [...] of 07/06/2022) [facility] of [facility] Narrative* Problem Noted [...] of 07/26/2022) [facility] of [facility] Narrative* Problem Noted [...] of 07/27/2022) [facility] of [facility] Narrative* Problem Noted [...] of 08/04/2022) [facility] of [facility] Narrative* Problem Noted [...] of 08/27/2022) [facility] of [facility] Narrative* Problem Noted [...] of 09/08/2022) [facility] of [facility] Narrative* Problem Noted [...] of 09/15/2022) [facility] of [facility] Narrative* Problem Noted [...] of 09/15/2022) [facility] of [facility] Narrative* Problem Noted [...] of 10/14/2022) [facility] Narrative* Problem Noted [...] of 11/10/2022) [facility] of [facility] Narrative* Problem Noted [...] of 11/10/2022) [facility] of [facility] Narrative* Problem Noted [...] of 11/11/2022) [facility] of [facility] Narrative* Problem Noted [...] of 11/11/2022) [facility] Narrative* Problem Noted [...] of 11/16/2022) [facility] of [facility] Narrative* Problem Noted [...] of 11/19/2022) [facility] of [facility] Narrative* Problem Noted [...] of 11/19/2022) [facility] of [facility] illness Narrative* Problem Noted [...] of 11/22/2022) [facility] of [facility] Narrative* Problem Noted [...] of 12/02/2022) [facility] Narrative* Problem Noted [...] of 12/07/2022) [facility] of [facility] Narrative* Problem Noted [...] of 12/13/2022) [facility] Narrative* Problem Noted [...] of 12/16/2022) [facility] of [facility] Narrative* Problem Noted [...] of 12/23/2022) [facility] Narrative* Problem Noted [...] of 12/24/2022) [facility] Narrative* Problem Noted [...] of 12/27/2022) [facility] Narrative* Problem Noted [...] of 12/29/2022) [facility] Narrative* Problem Noted [...] of 01/06/2023) [facility] Narrative* Problem Noted [...] of 01/07/2023) [facility] Narrative* Problem Noted [...] of 01/14/2023) [facility] Narrative* Problem Noted [...] of 01/18/2023) [facility] Narrative* Problem Noted [...] of 01/19/2023) [facility] Narrative* Problem Noted [...] of 01/25/2023) [facility] Narrative* Problem Noted [...] of 01/26/2023) [facility] of [facility] Narrative* Problem Noted [...] of 01/26/2023) [facility] Narrative* Problem Noted [...] of 01/28/2023) [facility] Narrative* Problem Noted [...] of 01/31/2023) [facility] Narrative* Problem Noted [...] of 02/03/2023) [facility] of [facility] Narrative* Problem Noted [...] of 02/10/2023) [facility] of [facility] Narrative* Problem Noted [...] of 02/10/2023) [facility] Narrative* Problem Noted [...] of 02/11/2023) [facility] of [facility] Narrative* Problem Noted [...] of 02/14/2023) [facility] of [facility] Narrative* Problem Noted [...] of 02/14/2023) [facility] of [facility] Narrative* Problem Noted [...] of 02/18/2023) [facility] of [facility] Narrative* Problem Noted [...] of 03/07/2023) [facility] of [facility] Narrative* Problem Noted [...] of 03/09/2023) [facility] Narrative* Problem Noted [...] of 03/09/2023) [facility] Narrative* Problem Noted [...] of 03/12/2023) [facility] of [facility] illness Narrative* Problem Noted [...] of 03/17/2023) [facility] of Past [facility] Narrative* Problem Noted [...] of 04/04/2023) [facility] of [facility] Narrative* Problem Noted [...] of 04/11/2023) [facility] of Past illness Narrative* Problem Noted [...] encounter (statuses as of 06/21/2023) [facility] note No data available for this section [facility] Evaluation note* Diagnosis Chronic pain of both knees Neuropathic pain Neuralgia, neuritis, and radiculitis, unspecified Chronic pain syndrome Lumbar spondylosis Lumbosacral spondylosis without myelopathy DDD (degenerative disc disease), cervical Degeneration of cervical intervertebral disc Arthritis, multiple joint involvement Unspecified arthropathy, multiple sites documented in this encounter [facility] note* Diagnosis Microscopic hematuria- Primary documented in this encounter [facility] note* Diagnosis Diabetes mellitus type 2 in obese ([facility])- Primary Type II or unspecified type diabetes mellitus without mention of complication, not stated as uncontrolled Recurrent major depressive disorder, in full remission ([facility]) MCI (mild cognitive impairment) Mild cognitive impairment, so stated documented in this encounter [facility] note* Diagnosis COPD with chronic bronchitis (HCC) Obstructive chronic bronchitis without exacerbation SOB (shortness of breath) Shortness of breath CHURCH (dyspnea on exertion) Other dyspnea and respiratory abnormality documented in this encounter [facility] note* Diagnosis Chronic pain syndrome- Primary Recurrent major depressive disorder, in full remission ([facility]) Essential hypertension Unspecified essential hypertension Mixed hyperlipidemia Type 2 diabetes mellitus with stage 3 chronic kidney disease, without long-term current use of insulin, unspecified whether stage 3a or 3b CKD ([facility]) Chronic diastolic heart failure ([facility]), mild. Chronic diastolic heart failure TACO (obstructive sleep apnea) Obstructive sleep apnea (adult) (pediatric) Obesity, Class III, BMI 40-49.9 (morbid obesity) ([facility]) Morbid obesity Urge incontinence documented in this encounter [facility] note* Diagnosis Type 2 diabetes mellitus with stage 3 chronic kidney disease, without long-term current use of insulin, unspecified whether stage 3a or 3b CKD ([facility])- Primary 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) Type II or unspecified type diabetes mellitus without mention of complication, not stated as uncontrolled Diabetic eye exam ([facility]) Type II or unspecified type diabetes [...] [facility] Diagnosis Chronic pain of both knees Neuropathic pain Neuralgia, neuritis, and radiculitis, unspecified Chronic pain syndrome Lumbar spondylosis Lumbosacral spondylosis without myelopathy DDD (degenerative disc disease), cervical Degeneration of cervical intervertebral disc Arthritis, multiple joint involvement Unspecified arthropathy, multiple sites [facility] Diagnosis Hypertensive heart disease with congestive heart failure, unspecified heart failure type ([facility])- Primary Chronic diastolic heart failure (HCC) Chronic diastolic heart failure Type 2 diabetes mellitus with diabetic chronic kidney disease, unspecified CKD stage, unspecified whether director long term care insulin use ([facility]) Stage 3 chronic kidney disease, unspecified [...] [facility] Diagnosis Chronic pain of both knees Neuropathic pain Neuralgia, neuritis, and radiculitis, unspecified Chronic pain syndrome Lumbar spondylosis Lumbosacral spondylosis without myelopathy DDD (degenerative disc disease), cervical Degeneration of cervical intervertebral disc Arthritis, multiple joint involvement Unspecified arthropathy, multiple sites [facility] Diagnosis Chronic pain of both knees [...] [facility] pain of both knees Neuropathic pain Neuralgia, neuritis, and radiculitis, unspecified Chronic pain syndrome Lumbar spondylosis Lumbosacral spondylosis without myelopathy DDD (degenerative disc disease), cervical Degeneration of cervical intervertebral disc Arthritis, multiple joint involvement Unspecified arthropathy, multiple sites [facility] Diagnosis Chronic pain of both knees Neuropathic pain Neuralgia, neuritis, and radiculitis, unspecified Chronic pain syndrome Lumbar spondylosis Lumbosacral spondylosis without myelopathy DDD (degenerative disc disease), cervical Degeneration of cervical intervertebral disc Arthritis, multiple joint involvement Unspecified arthropathy, multiple sites [facility] Chronic pain of both knees Neuropathic pain Neuralgia, neuritis, and radiculitis, unspecified Chronic pain syndrome Lumbar spondylosis Lumbosacral spondylosis without myelopathy DDD (degenerative disc disease), cervical Degeneration of cervical intervertebral disc Arthritis, multiple joint involvement Unspecified arthropathy, multiple sites [facility] Diagnosis Nightmares- Primary Other dysfunctions of sleep stages or arousal from sleep Dysuria Dementia with mood disturbance, unspecified dementia severity, unspecified dementia type [facility] Colovesical fistula- Primary Intestinovesical fistula Vulvar irritation Other specified noninflammatory disorder of vulva and perineum Mixed incontinence Mixed incontinence urge and stress (male)(female) Morbid obesity (HCC) Morbid obesity Dementia, unspecified dementia severity, unspecified dementia type, unspecified whether behavioral, psychotic, or mood disturbance or anxiety (HCC) documented in this encounter [facility] note* Diagnosis Chronic pain of both knees Neuropathic pain Neuralgia, neuritis, and radiculitis, unspecified Chronic pain syndrome Lumbar spondylosis Lumbosacral spondylosis without myelopathy DDD (degenerative disc disease), cervical Degeneration of cervical intervertebral disc Arthritis, multiple joint involvement Unspecified arthropathy, multiple sites [facility] Diagnosis Colovesical fistula Intestinovesical fistula Morbid obesity (HCC) Morbid obesity Poorly controlled diabetes mellitus (HCC) Type II or unspecified type diabetes mellitus without mention of complication, not stated as uncontrolled [facility] Diagnosis Colovesical fistula- Primary Intestinovesical fistula [facility]* Diagnosis Colovesical fistula- Primary Intestinovesical fistula documented in this encounter [facility] note* Diagnosis Colovesical fistula- Primary Intestinovesical fistula [facility]* Diagnosis Medication management- Primary Encounter for long-term (current) use of other medications documented in this encounter [facility] note* Diagnosis Colovesical fistula- Primary Intestinovesical fistula Screening for ischemic heart disease- Primary documented in this encounter [facility] note* Diagnosis Chronic pain of both knees Neuropathic pain Neuralgia, neuritis, and radiculitis, unspecified Chronic pain syndrome Lumbar spondylosis Lumbosacral spondylosis without myelopathy DDD (degenerative disc disease), cervical Degeneration of cervical intervertebral disc Arthritis, multiple joint involvement Unspecified arthropathy, multiple sites documented in this encounter [facility] note* Diagnosis APPOINTMENT CANCELLED- Primary [facility]* Diagnosis Memory loss- Primary Mild episode of recurrent major depressive disorder (HCC) Nightmares Other dysfunctions of sleep stages or arousal from sleep 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 [facility]* Diagnosis Colovaginal fistula- Primary Diverticulitis Diverticulitis of colon (without mention of hemorrhage) Abnormal CT scan Other nonspecific (abnormal) findings on radiological and other examinations of body structure Dementia, unspecified dementia severity, unspecified dementia type, unspecified whether behavioral, psychotic, or mood disturbance or anxiety ([facility]) Morbid obesity ([facility]) Morbid obesity 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 [facility] note* Diagnosis Memory loss 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 [facility] note* Diagnosis Colovaginal fistula Diabetes mellitus, type 2 ([facility]) Type II or unspecified type diabetes mellitus without mention of complication, not stated as uncontrolled CHF (congestive heart failure) ([facility]) ([facility]) Congestive heart failure, unspecified documented in this encounter [facility] note* Diagnosis Moderate late onset Alzheimer's dementia without behavioral disturbance, psychotic disturbance, mood disturbance, or anxiety ([facility])- Primary Insomnia, unspecified type Apathetic behavior due to dementia ([facility]) Mild episode of recurrent major depressive disorder ([facility]) documented in this encounter [facility] note* Diagnosis Colovaginal fistula- Primary Colovesical fistula Intestinovesical fistula History of diverticulitis documented in this encounter [facility] note* Diagnosis Insomnia, unspecified type documented in this encounter [facility] note* Diagnosis Chronic pain of both [...] head and neck documented in this encounter [facility] note* Diagnosis Other amnesia- Primary documented in this encounter [facility] note* Diagnosis Dysuria [facility] Diagnosis Anemia, unspecified type- Primary Hyponatremia Hyposmolality and/or hyponatremia [facility] Diagnosis Dysuria Chronic pain of both knees Neuropathic pain Neuralgia, neuritis, and radiculitis, unspecified Chronic pain syndrome Lumbar spondylosis Lumbosacral spondylosis without myelopathy DDD (degenerative disc disease), cervical Degeneration of cervical intervertebral disc Arthritis, multiple joint involvement Unspecified arthropathy, multiple sites documented in this encounter [facility] Discharge instructions* Attachments The following attachments cannot be sent through Care Everywhere. * Colon Polypectomy Discharge Instructions (Burmese) [facility] (narrative)* Outpatient Procedure (Routine) - Authorized Specialty Diagnoses / Procedures Referred By Contac t Referred To Contact [facility] Diagnoses COPD with chronic bronchitis (HCC) SOB (shortness of breath) CHURCH (dyspnea on exertion) Procedures SPIROMETRY - BASELINE AND POST DILATOR BRNCDILAT RSPSE SPMTRY PRE&POST-BRNCDILAT ADMN Stephain Crooks PA-C [address] [place] [address] [facility] [address] [place] [id number] Referral ID Status Reason Start Date Expiration Date Visits Requested Visits Authorized [id number] Authorized Auto-Generat ed Referral 05/07/2022 11/06/2022 1 1 * Outpatient Procedure (Routine) - Authorized Specialty Diagnoses / Procedures Referred By Contac t Referred To Contact [facility] Diagnoses Chronic diastolic heart failure (HCC) SOB (shortness of breath) CHURCH (dyspnea on exertion) Procedures ECHO ECHO TTHRC R-T 2D W/WOM-MODE COMPL SPEC&COLR D Stephani Crooks PA-C [address] [place] [address] [facility] [address] [address] Referral ID Status Reason Start Date Expiration Date Visits Requested Visits Authorized [id number] Authorized Auto-Generat ed Referral 05/07/2022 11/06/2022 1 1 [facility] for referral (narrative)* Outpatient Procedure (Routine) - Pending Review Specialty Diagnoses / Procedures Referred By Contac t Referred To Contact [facility] Diagnoses Colovesical fistula Procedures COLONOSCOPY DIAGNOSTIC COLONOSCOPY FLX DX W/COLLJ SPEC WHEN PFRMLeonel Hare MD [address] [address] [facility] [address] [place] [id number] Referral ID Status Reason Start Date Expiration Date Visits Requested Visits Authorized [id number] Pending Review Auto-Generat ed Referral 02/18/2023 02/19/[address] 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 Advance Directive(s) 07/21/2020 9:36 AM [...] Documents on File Type Date Recorded Patient Animal Rescuer Expl anation Advance Directive(s) 07/21/2020 9:36 AM [...] Documents on File Type Date Recorded Patient Animal Rescuer Expl anation Advance Directives and Livin g Will 05/04/2023 1:18 PM Latest Code Status on File Code Status Date Activated Date Inactivated Comments Full Code 05/25/2023 8:10 AM 05/25/2023 2:17 PM Documents on File Type Date Recorded Patient Animal Rescuer Expl anation Advance Directives and Livin g [...] Dysuria Nightmares Procedures CONSULT TO GERIATRICS OFFICE/OUTPATIENT [facility] 60-74 MINUTES Stephani Crooks PA-C [address] [place] [address] Referral ID Status Reason Start Date Expiration Date Visits Requested Visits Authorized [id number] Pending Review PCP Requested Referral 12/23/2022 12/23/2023 1 1 Specialty Diagnoses / Procedures Referred By Contac t Referred To Contact Colon and Rectal Surgery Diagnoses Colovesical fistula Procedures CONSULT TO COLO-RECTAL SURGERY OFFICE/OUTPATIENT [facility] 60-74 MINUTES Eufemia Chapa, SENIOR QA TESTER.NURSE AIDE [address] [place] [address] Referral ID Status Reason Start Date Expiration Date Visits Requested Visits Authorized [id number] Pending Review PCP Requested Referral 01/06/2023 01/06/2024 1 1 Specialty Diagnoses / Procedures Referred By Contac t Referred To Contact Stephani Crooks PA-C [address] [place] [address] Referral ID Status Reason Start Date Expiration Date Visits Re quested Visits Authorized [id number] Closed 1 1 Specialty Diagnoses / Procedures Referred By Contac t Referred To Contact Colon and Rectal Surgery Diagnoses Colovesical fistula Procedures CONSULT TO COLO-RECTAL SURGERY OFFICE/OUTPATIENT NEW HIGH MDM 60-74 MINUTES Leesa Ramirez MD [address] [place] [address] Referral ID Status Reason Start Date Expiration Date Visits Requested Visits Authorized [id number] Pending Review PCP Requested Referral 01/25/2023 01/25/2024 1 1 Specialty Diagnoses / Procedures Referred By Contac t Referred To Contact Radiology Diagnoses Memory loss Procedures CT head wo IV contrast Shantal Serrano, SENIOR QA TESTER - NURSE AIDE [address] [place] [address] Referral ID Status Reason Start Date Expiration Date V isits Requested Visits Authorized [id number] Authorized 04/05/2023 10/02/2023 1 1 Referral ID Status Reason Start Date Expiration Date Visits Re quested Visits Authorized [id number] Closed 04/05/2023 10/02/2023 1 1 Additional Source Comments INFORMATION SOURCE (unrecogn ized section and content) DATE CREATED AUTHOR AUTHOR'S ORGANIZ ATION 04/13/2019 [facility] DATE CREATED AUTHOR AUTHOR'S ORGANIZ ATION 07/22/2021 [facility] DATE CREATED AUTHOR AUTHOR'S ORGANIZ ATION 02/05/2023 [facility] DATE CREATED AUTHOR AUTHOR'S ORGANIZ ATION 09/21/2023 [facility] DATE CREATED AUTHOR AUTHOR'S ORGANIZ ATION 11/18/2023 [facility] DATE CREATED AUTHOR AUTHOR'S ORGANIZ ATION 12/02/2023 [facility] Source Comments (unrecognize d section and content) In the event this informatio n is protected by the Federal Confidentiality of Alcohol and Drug Abuse Patient Records regulations: The Federal rules restrict any use of the information to criminally investigate or prosecute any alcohol or drug abuse patient.[facility] the event this information is protected by the Federal Confidentiality of Alcohol and Drug Abuse Patient Records regulations: The Federal rules restrict any use of the information to criminally investigate or prosecute any alcohol or drug abuse patient.[facility]In the event this information is protected by the Federal Confidentiality of Alcohol and Drug Abuse Patient Records regulations: The Federal rules restrict any use of the information to criminally investigate or prosecute any alcohol or drug abuse patient.[facility]In the event this information is protected by the Federal Confidentiality of Alcohol and Drug Abuse Patient Records regulations: The Federal rules restrict any use of the information to criminally investigate or prosecute any alcohol or drug abuse patient.[facility]In the event this information is protected by the Federal Confidentiality of Alcohol and Drug Abuse Patient Records regulations: The Federal rules restrict any use of the information to criminally investigate or prosecute any alcohol or drug abuse patient.[facility]In the event this information is protected by the Federal Confidentiality of Alcohol and Drug Abuse Patient Records regulations: The Federal rules restrict any use of the information to criminally investigate or prosecute any alcohol or drug abuse patient.[facility] NorthIn the event this information is protected by the Federal Confidentiality of Alcohol and Drug Abuse Patient Records regulations: The Federal rules restrict any use of the information to criminally investigate or prosecute any alcohol or drug abuse patient.[facility] NorthIn the event this information is protected by the Federal Confidentiality of Alcohol and Drug Abuse Patient Records regulations: The Federal rules restrict any use of the information to criminally investigate or prosecute any alcohol or drug abuse patient.[facility] NorthIn the event this information is protected by the Federal Confidentiality of Alcohol and Drug Abuse Patient Records regulations: The Federal rules restrict any use of the information to criminally investigate or prosecute any alcohol or drug abuse patient.[facility] NorthIn the event this information is protected by the Federal Confidentiality of Alcohol and Drug Abuse Patient Records regulations: The Federal rules restrict any use of the information to criminally investigate or prosecute any alcohol or drug abuse patient.[facility] NorthIn the event this information is protected by the Federal Confidentiality of Alcohol and Drug Abuse Patient Records regulations: The Federal rules restrict any use of the information to criminally investigate or prosecute any alcohol or drug abuse patient.[facility] NorthIn the event this information is protected by the Federal Confidentiality of Alcohol and Drug Abuse Patient Records regulations: The Federal rules restrict any use of the information to criminally investigate or prosecute any alcohol or drug abuse patient.[facility] NorthIn the event this information is protected by the Federal Confidentiality of Alcohol and Drug Abuse Patient Records regulations: The Federal rules restrict any use of the information to criminally investigate or prosecute any alcohol or drug abuse patient.[facility] NorthIn the event this information is protected by the Federal Confidentiality of Alcohol and Drug Abuse Patient Records regulations: The Federal rules restrict any use of the information to criminally investigate or prosecute any alcohol or drug abuse patient.[facility] NorthIn the event this information is protected by the Federal Confidentiality of Alcohol and Drug Abuse Patient Records regulations: The Federal rules restrict any use of the information to criminally investigate or prosecute any alcohol or drug abuse patient.[facility] NorthIn the event this information is protected by the Federal Confidentiality of Alcohol and Drug Abuse Patient Records regulations: The Federal rules restrict any use of the information to criminally investigate or prosecute any alcohol or drug abuse patient.[facility] NorthIn the event this information is protected by the Federal Confidentiality of Alcohol and Drug Abuse Patient Records regulations: The Federal rules restrict any use of the information to criminally investigate or prosecute any alcohol or drug abuse patient.[facility] NorthIn the event this information is protected by the Federal Confidentiality of Alcohol and Drug Abuse Patient Records regulations: The Federal rules restrict any use of the information to criminally investigate or prosecute any alcohol or drug abuse patient.[facility] NorthIn the event this information is protected by the Federal Confidentiality of Alcohol and Drug Abuse Patient Records regulations: The Federal rules restrict any use of the information to criminally investigate or prosecute any alcohol or drug abuse patient.[facility] NorthIn the event this information is protected by the Federal Confidentiality of Alcohol and Drug Abuse Patient Records regulations: The Federal rules restrict any use of the information to criminally investigate or prosecute any alcohol or drug abuse patient.[facility] NorthIn the event this information is protected by the Federal Confidentiality of Alcohol and Drug Abuse Patient Records regulations: The Federal rules restrict any use of the information to criminally investigate or prosecute any alcohol or drug abuse patient.[facility] NorthIn the event this information is protected by the Federal Confidentiality of Alcohol and Drug Abuse Patient Records regulations: The Federal rules restrict any use of the information to criminally investigate or prosecute any alcohol or drug abuse patient.[facility] NorthIn the event this information is protected by the Federal Confidentiality of Alcohol and Drug Abuse Patient Records regulations: The Federal rules restrict any use of the information to criminally investigate or prosecute any alcohol or drug abuse patient.[facility] NorthIn the event this information is protected by the Federal Confidentiality of Alcohol and Drug Abuse Patient Records regulations: The Federal rules restrict any use of the information to criminally investigate or prosecute any alcohol or drug abuse patient.[facility] NorthIn the event this information is protected by the Federal Confidentiality of Alcohol and Drug Abuse Patient Records regulations: The Federal rules restrict any use of the information to criminally investigate or prosecute any alcohol or drug abuse patient.[facility] NorthIn the event this information is protected by the Federal Confidentiality of Alcohol and Drug Abuse Patient Records regulations: The Federal rules restrict any use of the information to criminally investigate or prosecute any alcohol or drug abuse patient.[facility] NorthIn the event this information is protected by the Federal Confidentiality of Alcohol and Drug Abuse Patient Records regulations: The Federal rules restrict any use of the information to criminally investigate or prosecute any alcohol or drug abuse patient.[facility] NorthIn the event this information is protected by the Federal Confidentiality of Alcohol and Drug Abuse Patient Records regulations: The Federal rules restrict any use of the information to criminally investigate or prosecute any alcohol or drug abuse patient.[facility] NorthIn the event this information is protected by the Federal Confidentiality of Alcohol and Drug Abuse Patient Records regulations: The Federal rules restrict any use of the information to criminally investigate or prosecute any alcohol or drug abuse patient.[facility] NorthIn the event this information is protected by the Federal Confidentiality of Alcohol and Drug Abuse Patient Records regulations: The Federal rules restrict any use of the information to criminally investigate or prosecute any alcohol or drug abuse patient.[facility] NorthIn the event this information is protected by the Federal Confidentiality of Alcohol and Drug Abuse Patient Records regulations: The Federal rules restrict any use of the information to criminally investigate or prosecute any alcohol or drug abuse patient.[facility] NorthIn the event this information is protected by the Federal Confidentiality of Alcohol and Drug Abuse Patient Records regulations: The Federal rules restrict any use of the information to criminally investigate or prosecute any alcohol or drug abuse patient.[facility] NorthIn the event this information is protected by the Federal Confidentiality of Alcohol and Drug Abuse Patient Records regulations: The Federal rules restrict any use of the information to criminally investigate or prosecute any alcohol or drug abuse patient.[facility] NorthIn the event this information is protected by the Federal Confidentiality of Alcohol and Drug Abuse Patient Records regulations: The Federal rules restrict any use of the information to criminally investigate or prosecute any alcohol or drug abuse patient.[facility] NorthIn the event this information is protected by the Federal Confidentiality of Alcohol and Drug Abuse Patient Records regulations: The Federal rules restrict any use of the information to criminally investigate or prosecute any alcohol or drug abuse patient.[facility] NorthIn the event this information is protected by the Federal Confidentiality of Alcohol and Drug Abuse Patient Records regulations: The Federal rules restrict any use of the information to criminally investigate or prosecute any alcohol or drug abuse patient.[facility] NorthIn the event this information is protected by the Federal Confidentiality of Alcohol and Drug Abuse Patient Records regulations: The Federal rules restrict any use of the information to criminally investigate or prosecute any alcohol or drug abuse patient.[facility] NorthIn the event this information is protected by the Federal Confidentiality of Alcohol and Drug Abuse Patient Records regulations: The Federal rules restrict any use of the information to criminally investigate or prosecute any alcohol or drug abuse patient.[facility] NorthIn the event this information is protected by the Federal Confidentiality of Alcohol and Drug Abuse Patient Records regulations: The Federal rules restrict any use of the information to criminally investigate or prosecute any alcohol or drug abuse patient.[facility] NorthIn the event this information is protected by the Federal Confidentiality of Alcohol and Drug Abuse Patient Records regulations: The Federal rules restrict any use of the information to criminally investigate or prosecute any alcohol or drug abuse patient.[facility] NorthIn the event this information is protected by the Federal Confidentiality of Alcohol and Drug Abuse Patient Records regulations: The Federal rules restrict any use of the information to criminally investigate or prosecute any alcohol or drug abuse patient.[facility] NorthIn the event this information is protected by the Federal Confidentiality of Alcohol and Drug Abuse Patient Records regulations: The Federal rules restrict any use of the information to criminally investigate or prosecute any alcohol or drug abuse patient.[facility] NorthIn the event this information is protected by the Federal Confidentiality of Alcohol and Drug Abuse Patient Records regulations: The Federal rules restrict any use of the information to criminally investigate or prosecute any alcohol or drug abuse patient.[facility] NorthIn the event this information is protected by the Federal Confidentiality of Alcohol and Drug Abuse Patient Records regulations: The Federal rules restrict any use of the information to criminally investigate or prosecute any alcohol or drug abuse patient.[facility] NorthIn the event this information is protected by the Federal Confidentiality of Alcohol and Drug Abuse Patient Records regulations: The Federal rules restrict any use of the information to criminally investigate or prosecute any alcohol or drug abuse patient.[facility] NorthIn the event this information is protected by the Federal Confidentiality of Alcohol and Drug Abuse Patient Records regulations: The Federal rules restrict any use of the information to criminally investigate or prosecute any alcohol or drug abuse patient.[facility] NorthIn the event this information is protected by the Federal Confidentiality of Alcohol and Drug Abuse Patient Records regulations: The Federal rules restrict any use of the information to criminally investigate or prosecute any alcohol or drug abuse patient.[facility] NorthIn the event this information is protected by the Federal Confidentiality of Alcohol and Drug Abuse Patient Records regulations: The Federal rules restrict any use of the information to criminally investigate or prosecute any alcohol or drug abuse patient.[facility] NorthIn the event this information is protected by the Federal Confidentiality of Alcohol and Drug Abuse Patient Records regulations: The Federal rules restrict any use of the information to criminally investigate or prosecute any alcohol or drug abuse patient.[facility] NorthIn the event this information is protected by the Federal Confidentiality of Alcohol and Drug Abuse Patient Records regulations: The Federal rules restrict any use of the information to criminally investigate or prosecute any alcohol or drug abuse patient.[facility] NorthIn the event this information is protected by the Federal Confidentiality of Alcohol and Drug Abuse Patient Records regulations: The Federal rules restrict any use of the information to criminally investigate or prosecute any alcohol or drug abuse patient.[facility] NorthIn the event this information is protected by the Federal Confidentiality of Alcohol and Drug Abuse Patient Records regulations: The Federal rules restrict any use of the information to criminally investigate or prosecute any alcohol or drug abuse patient.[facility] NorthIn the event this information is protected by the Federal Confidentiality of Alcohol and Drug Abuse Patient Records regulations: The Federal rules restrict any use of the information to criminally investigate or prosecute any alcohol or drug abuse patient.[facility] NorthIn the event this information is protected by the Federal Confidentiality of Alcohol and Drug Abuse Patient Records regulations: The Federal rules restrict any use of the information to criminally investigate or prosecute any alcohol or drug abuse patient.[facility] NorthIn the event this information is protected by the Federal Confidentiality of Alcohol and Drug Abuse Patient Records regulations: The Federal rules restrict any use of the information to criminally investigate or prosecute any alcohol or drug abuse patient.[facility] NorthIn the event this information is protected by the Federal Confidentiality of Alcohol and Drug Abuse Patient Records regulations: The Federal rules restrict any use of the information to criminally investigate or prosecute any alcohol or drug abuse patient.[facility] NorthIn the event this information is protected by the Federal Confidentiality of Alcohol and Drug Abuse Patient Records regulations: The Federal rules restrict any use of the information to criminally investigate or prosecute any alcohol or drug abuse patient.[facility] NorthIn the event this information is protected by the Federal Confidentiality of Alcohol and Drug Abuse Patient Records regulations: The Federal rules restrict any use of the information to criminally investigate or prosecute any alcohol or drug abuse patient.[facility] NorthIn the event this information is protected by the Federal Confidentiality of Alcohol and Drug Abuse Patient Records regulations: The Federal rules restrict any use of the information to criminally investigate or prosecute any alcohol or drug abuse patient.[facility] NorthIn the event this information is protected by the Federal Confidentiality of Alcohol and Drug Abuse Patient Records regulations: The Federal rules restrict any use of the information to criminally investigate or prosecute any alcohol or drug abuse patient.[facility] NorthIn the event this information is protected by the Federal Confidentiality of Alcohol and Drug Abuse Patient Records regulations: The Federal rules restrict any use of the information to criminally investigate or prosecute any alcohol or drug abuse patient.[facility] NorthIn the event this information is protected by the Federal Confidentiality of Alcohol and Drug Abuse Patient Records regulations: The Federal rules restrict any use of the information to criminally investigate or prosecute any alcohol or drug abuse patient.[facility] NorthIn the event this information is protected by the Federal Confidentiality of Alcohol and Drug Abuse Patient Records regulations: The Federal rules restrict any use of the information to criminally investigate or prosecute any alcohol or drug abuse patient.[facility] NorthIn the event this information is protected by the Federal Confidentiality of Alcohol and Drug Abuse Patient Records regulations: The Federal rules restrict any use of the information to criminally investigate or prosecute any alcohol or drug abuse patient.[facility] NorthIn the event this information is protected by the Federal Confidentiality of Alcohol and Drug Abuse Patient Records regulations: The Federal rules restrict any use of the information to criminally investigate or prosecute any alcohol or drug abuse patient.[facility] NorthIn the event this information is protected by the Federal Confidentiality of Alcohol and Drug Abuse Patient Records regulations: The Federal rules restrict any use of the information to criminally investigate or prosecute any alcohol or drug abuse patient.[facility] NorthIn the event this information is protected by the Federal Confidentiality of Alcohol and Drug Abuse Patient Records regulations: The Federal rules restrict any use of the information to criminally investigate or prosecute any alcohol or drug abuse patient.[facility] NorthIn the event this information is protected by the Federal Confidentiality of Alcohol and Drug Abuse Patient Records regulations: The Federal rules restrict any use of the information to criminally investigate or prosecute any alcohol or drug abuse patient.[facility] NorthIn the event this information is protected by the Federal Confidentiality of Alcohol and Drug Abuse Patient Records regulations: The Federal rules restrict any use of the information to criminally investigate or prosecute any alcohol or drug abuse patient.[facility] NorthIn the event this information is protected by the Federal Confidentiality of Alcohol and Drug Abuse Patient Records regulations: The Federal rules restrict any use of the information to criminally investigate or prosecute any alcohol or drug abuse patient.[facility] NorthIn the event this information is protected by the Federal Confidentiality of Alcohol and Drug Abuse Patient Records regulations: The Federal rules restrict any use of the information to criminally investigate or prosecute any alcohol or drug abuse patient.[facility] NorthIn the event this information is protected by the Federal Confidentiality of Alcohol and Drug Abuse Patient Records regulations: The Federal rules restrict any use of the information to criminally investigate or prosecute any alcohol or drug abuse patient.[facility] NorthIn the event this information is protected by the Federal Confidentiality of Alcohol and Drug Abuse Patient Records regulations: The Federal rules restrict any use of the information to criminally investigate or prosecute any alcohol or drug abuse patient.[facility] NorthIn the event this information is protected by the Federal Confidentiality of Alcohol and Drug Abuse Patient Records regulations: The Federal rules restrict any use of the information to criminally investigate or prosecute any alcohol or drug abuse patient.[facility] NorthIn the event this information is protected by the Federal Confidentiality of Alcohol and Drug Abuse Patient Records regulations: The Federal rules restrict any use of the information to criminally investigate or prosecute any alcohol or drug abuse patient.[facility] NorthIn the event this information is protected by the Federal Confidentiality of Alcohol and Drug Abuse Patient Records regulations: The Federal rules restrict any use of the information to criminally investigate or prosecute any alcohol or drug abuse patient.[facility] NorthIn the event this information is protected by the Federal Confidentiality of Alcohol and Drug Abuse Patient Records regulations: The Federal rules restrict any use of the information to criminally investigate or prosecute any alcohol or drug abuse patient.[facility] NorthIn the event this information is protected by the Federal Confidentiality of Alcohol and Drug Abuse Patient Records regulations: The Federal rules restrict any use of the information to criminally investigate or prosecute any alcohol or drug abuse patient.[facility] NorthIn the event this information is protected by the Federal Confidentiality of Alcohol and Drug Abuse Patient Records regulations: The Federal rules restrict any use of the information to criminally investigate or prosecute any alcohol or drug abuse patient.[facility] NorthIn the event this information is protected by the Federal Confidentiality of Alcohol and Drug Abuse Patient Records regulations: The Federal rules restrict any use of the information to criminally investigate or prosecute any alcohol or drug abuse patient.[facility] NorthIn the event this information is protected by the Federal Confidentiality of Alcohol and Drug Abuse Patient Records regulations: The Federal rules restrict any use of the information to criminally investigate or prosecute any alcohol or drug abuse patient.[facility] NorthIn the event this information is protected by the Federal Confidentiality of Alcohol and Drug Abuse Patient Records regulations: The Federal rules restrict any use of the information to criminally investigate or prosecute any alcohol or drug abuse patient.[facility] NorthIn the event this information is protected by the Federal Confidentiality of Alcohol and Drug Abuse Patient Records regulations: The Federal rules restrict any use of the information to criminally investigate or prosecute any alcohol or drug abuse patient.[facility] NorthIn the event this information is protected by the Federal Confidentiality of Alcohol and Drug Abuse Patient Records regulations: The Federal rules restrict any use of the information to criminally investigate or prosecute any alcohol or drug abuse patient.[facility] NorthIn the event this information is protected by the Federal Confidentiality of Alcohol and Drug Abuse Patient Records regulations: The Federal rules restrict any use of the information to criminally investigate or prosecute any alcohol or drug abuse patient.[facility] Reason for Visit (unrecogniz ed section and content) Reason Onset Date Comments Refill Request 03/31/2022 Reason Onset Date Comments Refill Request 04/21/2022 Reason Comments Multiple Missed Appointment Reason Comments 6 Month Exam Specialty Diagnoses / Procedures Referred By Contac t Referred To Contact Family Practice / FAMILY MEDICINE Diagnoses 6 mo follow up /meds Procedures 4C MD Valeriy Ortega Rayanne, PA-C [address] [place] [address] Referral ID Status Reason Start Date Expiration Date Visits Re quested Visits Authorized [id number] Closed 05/05/2022 11/06/2022 1 1 Reason Comments [...] RSPSE SPMTRY PRE&POST-BRNCDILAT ADMN Stephani Crooks PA-C [address] [place] [address] Respiratory [address] [place] [address] Referral ID Status Reason Start Date Expiration Date V isits Requested Visits Authorized [id number] Closed Auto-Generate d Referral 05/07/2022 11/06/2022 1 1 Reason Comments Social Work Services Reason Comments Recheck Specialty Diagnoses / Procedures Referred By Contac t Referred To Contact Family Practice / FAMILY MEDICINE Diagnoses 4 weeks follow up Procedures 4C MD Brigitte Ortega Jeffrey A, MD [address] [place] [address] Referral ID Status Reason Start Date Expiration Date Visits Re quested Visits Authorized [id number] Closed 05/24/2022 11/06/2022 1 1 Reason Comments [facility] director social verbal order reques t Reason Comments Patient [...] Procedures 4C EST Leno Briggs MD [address] [place] [address] Leno Briggs MD [address] [place] [address] Referral ID Status Reason Start Date Expiration Date Visits Re quested Visits Authorized [id number] Closed 07/05/2022 11/06/2022 1 1 Reason Comments [...] type Procedures CONSULT TO URO GYNECOLOGY OFFICE/OUTPATIENT [facility] 60-74 MINUTES Madalyn Degroot APRN.[facility] [address] [place] [address] Referral ID Status Reason Start Date Expiration Date Visits Requested Visits Authorized [id number] Pending Review PCP Requested Referral Auto-Generate d [...] NEW HIGH MDM 60-74 MINUTES Eufemia Chapa, SENIOR QA TESTER.NURSE AIDE [address] [place] [address] Referral ID Status Reason Start Date Expiration Date Visits Requested Visits Authorized [id number] Pending Review PCP Requested Referral 01/06/2023 01/06/2024 [...] dementia Procedures geriatric assessment Stephani Crooks [address] [place] [address] [facility] [address] [address] Referral ID Status Reason Start Date Expiration Date V isits Requested Visits Authorized [id number] Pending Review 03/16/2023 09/12/2023 1 1 Reason Comments New Patient Evaluation for colov esical fistula Other Patient accompanied by Gail sister, Mariela daughter Reason Onset Date Comments Refill Request 04/10/2023 Specialty Diagnoses / Procedures Referred By Contac t Referred To Contact Radiology Diagnoses Memory loss Procedures CT head wo IV contrast Shantal Serrano, SENIOR QA TESTER - NURSE AIDE [address] [facility] [address] [place] [address] Referral ID Status Reason Start Date Expiration Date Visits Re quested Visits Authorized [id number] Closed 04/05/2023 10/02/2023 1 1 Specialty Diagnoses / Procedures Referred By Contac t Referred To Contact 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] Procedures AR COLONOSCOPY FLX DX W/COLLJ SPEC WHEN PFRMD COLONOSCOPY Samantha Nava MD [address] [place] [address] [facility] [address] [place] [address] Referral ID Status Reason Start Date Expiration Date Visits Re quested Visits Authorized [id number] 1 1 Reason Comments Memory Loss Reason Comments Results Best # [phone]( Mariela, daughter)Discuss results of colonoscopy done 05/25/23 Reason Comments Med Refill Reason Comments Recheck Follow up 6 months Reason Onset Date Comments Med Refill 07/05/2023 Reason Onset Date Comments Refill Request 08/23/2023 Reason Onset Date Comments Cancelled Appointment 08/16/2023 Cancel miles ointment 10.10.23 2:45pm Reason Onset Date Comments change appointment 09/14/2023 Care Teams (unrecognized sec tion and content) Cotton Breeder Relationship Specialty Start Date End Date Leno Briggs MD [address] [place] [address] PCP - General Family Practice 11/25/16 Cotton Breeder Relationship Specialty Start Date End Date Leno Briggs MD [address] [place] [address] PCP - General Family Practice 11/25/16 Cotton Breeder Relationship Specialty Start Date End Date Leno Briggs MD [address] [place] [address] PCP - General Family Practice 11/25/16 Cotton Breeder Relationship Specialty Start Date End Date Leno Briggs MD [address] [place] [address] PCP - General Family Practice 11/25/16 Cotton Breeder Relationship Specialty Start Date End Date Leno Briggs MD [address] [place] [address] PCP - General Family Practice 11/25/16 Cotton Breeder Relationship Specialty Start Date End Date Leno Briggs MD [facility] [place] [address] PCP - General Family Practice 11/25/16 Cotton Breeder Relationship Specialty Start Date End Date Leno Briggs MD [address] [place] [address] PCP - General Family Practice 11/25/16 Cotton Breeder Relationship Specialty Start Date End Date Leno Briggs MD [address] [place] [address] PCP - General Family Practice 11/25/16 Cotton Breeder Relationship Specialty Start Date End Date Leno Briggs MD [address] [place] [address] PCP - General Family Practice 11/25/16 Cotton Breeder Relationship Specialty Start Date End Date Leno Briggs MD [facility] [place] [address] PCP - General Family Practice 11/25/16 Cotton Breeder Relationship Specialty Start Date End Date Leno Briggs MD [address] [place] [address] PCP - General Family Practice 11/25/16 Cotton Breeder Relationship Specialty Start Date End Date Leno Briggs MD [address] [place] [address] PCP - General Family Practice 11/25/16 Cotton Breeder Relationship Specialty Start Date End Date Leno Briggs MD [address] [place] [address] PCP - General Family Practice 11/25/16 Cotton Breeder Relationship Specialty Start Date End Date eLno Briggs MD [facility] [place] [address] PCP - General Family Practice 11/25/16 Cotton Breeder Relationship Specialty Start Date End Date Leno Briggs MD [facility] [place] [address] PCP - General Family Practice 11/25/16 Cotton Breeder Relationship Specialty Start Date End Date Leno Briggs MD [address] [place] [address] PCP - General Family Practice 11/25/16 Cotton Breeder Relationship Specialty Start Date End Date Leno Briggs MD [address] [place] [address] PCP - General Family Practice 11/25/16 Cotton Breeder Relationship Specialty Start Date End Date Leno Briggs MD [facility] [place] [address] PCP - General Family Practice 11/25/16 Cotton Breeder Relationship Specialty Start Date End Date Leno Briggs MD [address] [place] [address], [place] [address] PCP - General Family Practice 11/25/16 Cotton Breeder Relationship Specialty Start Date End Date Leno Briggs MD [facility] [place] [address] PCP - General Family Practice 11/25/16 Cotton Breeder Relationship Specialty Start Date End Date Leno Briggs MD [facility] [place] [address] PCP - General Family Medicine 11/25/16 Cotton Breeder Relationship Specialty Start Date End Date Leno Briggs MD [facility] [place] [address] PCP - General Family Medicine 11/25/16 Cotton Breeder Relationship Specialty Start Date End Date Leno Briggs MD [facility] [place] [address] PCP - General Family Medicine 11/25/16 Cotton Breeder Relationship Specialty Start Date End Date Leno Briggs MD [facility] [place] [address] PCP - General Family Medicine 11/25/16 Cotton Breeder Relationship Specialty Start Date End Date Leno Briggs MD [address] [place] [address] PCP - General Family Medicine 11/25/16 Cotton Breeder Relationship Specialty Start Date End Date Leno Briggs MD [address] [place] [address] PCP - General Family Medicine 11/25/16 Cotton Breeder Relationship Specialty Start Date End Date Leno Briggs MD [facility] [place] [address] PCP - General Family Medicine 11/25/16 Cotton Breeder Relationship Specialty Start Date End Date Leno Briggs MD [address] [place] [address], [place] [address] PCP - General Family Medicine 11/25/16 Cotton Breeder Relationship Specialty Start Date End Date Leno Briggs MD [facility] [place] [address] PCP - General Family Medicine 11/25/16 Cotton Breeder Relationship Specialty Start Date End Date Leno Briggs MD [facility] [place] [address] PCP - General Family Medicine 11/25/16 Cotton Breeder Relationship Specialty Start Date End Date Leno Briggs MD [address] [place] [address] PCP - General Family Medicine 11/25/16 Cotton Breeder Relationship Specialty Start Date End Date Leno Briggs MD [facility] [place] [address] PCP - General Family Medicine 11/25/16 Cotton Breeder Relationship Specialty Start Date End Date Leno Briggs MD [address] [place] [address], [place] [address] PCP - General Family Medicine 11/25/16 Cotton Breeder Relationship Specialty Start Date End Date Leno Briggs MD [address] [place] [address] PCP - General Family Medicine 11/25/16 Cotton Breeder Relationship Specialty Start Date End Date Leno Briggs MD [address] [facility] [address] PCP - General Family Medicine 11/25/16 Cotton Breeder Relationship Specialty Start Date End Date Leno Briggs MD [facility] [place] [address] PCP - General Family Medicine 11/25/16 Cotton Breeder Relationship Specialty Start Date End Date Leno Briggs MD [facility] [place] [address] PCP - General Family Medicine 11/25/16 Cotton Breeder Relationship Specialty Start Date End Date Leno Briggs MD [address] [place] [address] PCP - General Family Medicine 11/25/16 Cotton Breeder Relationship Specialty Start Date End Date Leno Briggs MD [address] [place] [address] PCP - General Family Medicine 11/25/16 Cotton Breeder Relationship Specialty Start Date End Date Leno Briggs MD [address] [facility] [place] [address] PCP - General Family Medicine 11/25/16 Cotton Breeder Relationship Specialty Start Date End Date Leno Briggs MD [address] [facility] [address] PCP - General Family Medicine 11/25/16 Cotton Breeder Relationship Specialty Start Date End Date Leno Briggs MD [address] [place] [address] PCP - General Family Medicine 11/25/16 Cotton Breeder Relationship Specialty Start Date End Date Leno Briggs MD [address] [place] [address] PCP - General Family Medicine 11/25/16 Cotton Breeder Relationship Specialty Start Date End Date Leno Briggs MD [address] [address] [place] [address] PCP - General 04/01/19 Cotton Breeder Relationship Specialty Start Date End Date Leno Briggs MD [address] [place] [address] PCP - General 04/01/19 Cotton Breeder Relationship Specialty Start Date End Date Leno Briggs MD [address] [place] [address] PCP - General 04/01/19 Cotton Breeder Relationship Specialty Start Date End Date Leno Briggs MD [address] [place] [address] PCP - General 04/01/19 Cotton Breeder Relationship Specialty Start Date End Date Leno Briggs MD [address] [address] [place] [address] PCP - General 04/01/19 Cotton Breeder Relationship Specialty Start Date End Date Leno Briggs MD [address] [address] [place] [address] PCP - General 04/01/19 Cotton Breeder Relationship Specialty Start Date End Date Leno Briggs MD [address] [place] [address] PCP - General 04/01/19 Cotton Breeder Relationship Specialty Start Date End Date Leno Briggs MD [address] [place] [address] PCP - General Family Medicine 11/25/16 Cotton Breeder Relationship Specialty Start Date End Date Leno Briggs MD [address] [place] [address] PCP - General Family Medicine 11/25/16 Cotton Breeder Relationship Specialty Start Date End Date Leno Briggs MD [address] [place] [address] PCP - General Family Medicine 11/25/16 Cotton Breeder Relationship Specialty Start Date End Date Leno Briggs MD [address] [place] [address] PCP - General Family Medicine 11/25/16 Cotton Breeder Relationship Specialty Start Date End Date Leno Briggs MD [address] [place] [address] PCP - General 04/01/19 Cotton Breeder Relationship Specialty Start Date End Date Leno Briggs MD [address] [place], [place] [id number] PCP - General 04/01/19 Cotton Breeder Relationship Specialty Start Date End Date Leno Briggs MD [address] [place] [address] PCP - General Family Medicine 11/25/16 Cotton Breeder Relationship Specialty Start Date End Date Leno Briggs MD [address] [place], [place] [address] PCP - General Family Medicine 11/25/16 Cotton Breeder Relationship Specialty Start Date End Date Leno Briggs MD [address] [place], [place] [address] PCP - General Family Medicine 11/25/16 Scheduled [...] BE BASED ON THE PRIMARY CLINICAL RECORDS. [facility]. provides no warranty or guarantee of the accuracy or completeness of information in this document.
--- OUTSIDE RECORDS SUMMARY | 2023-12-02 22:44 | XMS RPT_ITS | CCD ---
Author Name Unknown Address [address] [facility] [address] [place] [address] Organization [facility] Care Team Providers Care Consulting Practice Director Name Role Phone LINO ZHU Unavailable Unavailable Leno Briggs Unavailable Unavailable LINO ZHU Unavailable Unavailable LINO ZHU Unavailable Unavailable Leno Briggs Unavailable Unavailable Brigitte [facility], Leno Viramontes Primary Care Provider [phone] Leno Briggs MD Primary Care Provider [phone] Leno Briggs MD Primary Care Provider [phone] Leno Briggs MD Primary Care Provider [phone] LENO BRIGGS Primary Care Unavailable MADALYN DEGROOT Referring Unavailable EUFEMIA CHAPA Attending Unavailable Leno Briggs MD Primary Care Provider [phone] Leno Briggs MD Primary Care Provider Leno Briggs MD Primary Care Provider [phone] SAMANTHA NAVA Referring Unavailable SAMANTHA NAVA Attending [...] Care Unavailable LEESA RAMIREZ Attending Unavailable MADALYN EDGROOT Attending Unavailable STEPHANI CROOKS Referring Unavailable BRIGITTE, LENO Primary Care Unavailable STEPHANI CROOKS Referring Unavailable BRIGITTE, LENO Primary Care Unavailable STEPHANI CROOKS Attending Unavailable BRIGITTE, LENO Primary Care Unavailable BRIGITTE, LENO Referring Unavailable BRIGITTE, LENO Primary Care Unavailable BRIGITTE, LENO Primary Care Unavailable LENO BRIGGS Attending Unavailable LENO BRIGGS MD Primary Care Physician [phone] CHASTITY TRAMMELL MD Attending Unavail able LENO BRIGGS MD Primary Care Unavailable PATSY MONTANO MD Attending Unavailable LENO BRIGGS MD Primary Care Unavailable PHYSICIAN, NONE Primary Care Unavailable MARII VAIL DO Attending Unavailable Allergies Allergy Classification Reported Allergen(s) Allergy Type Date of Onset Reaction(s) Facility (20 sources) codeine; Translations: [CODEINE] Drug Allergy 10-12-20 11 Mental Status Change, Dizziness, Unknown [facility] Repository (1 source) Contrast media; Translations: [CONTRAST DYE] Propensity to adverse reactions (disorder) [facility] Repository (20 sources) escitalopram; Translations: [ESCITALOPRAM] Drug Allergy 05-28-20 13 Other: See Comments [facility] Repository (20 sources) sertraline; Translations: [SERTRALINE HCL] Drug Allergy 10-12-20 11 Other: See Comments [facility] Repository (20 sources) sulfamethoxazole / trimethoprim; Translations: [SULFAMETHOXAZOLE-T RIMETHOPRIM] Drug Allergy 01-21-20 15 Itching [facility] Repository (20 sources) traMADol; Translations: [TRAMADOL] Drug Allergy 10-12-20 11 Other: See Comments, Dermatitis, Dizziness, Other [facility] (20 sources) Garlic preparation; Translations: [GARLIC OIL] Drug Allergy 08-09-20 19 Other: See Comments [facility] Work Phone: (20 sources) oxybutynin; Translations: [OXYBUTYNIN] Drug Allergy 12-03-19 Other: See Comments [facility] Work Phone: (13 sources) traZODone Drug Allergy 01-15-20 Other [facility] (13 sources) Iodinated Contrast Media Drug Allergy 01-15-20 18 Other [facility] (2 sources) Sertraline; Translations: [sertraline] Drug Allergy [facility] (2 sources) Sulfamethoxazole / Trimethoprim; Translations: [sulfamethoxazole-t rimethoprim] Drug Allergy [facility] Medications Current Medications Medication Drug Class(es) Dates [...] long-term current use of insulin ([facility])] Onset: 3 Disorders of lipid metabolism [...] (20 sources) Drug therapy finding; Translations: [Other technician terminal and repeater (current) drug therapy] Onset: 11-25-2016 01-04-2020 Episodic Other aftercare (1 source) Other nursing home (current) drug therapy; Translations: [Medication management] Onset: [...] severity, with mood disturbance (HCC)] Onset: 05-17-2023 Unclassified (1 source) Agitation due to dementia; Translations: [Unspecified dementia, unspecified severity, with agitation] Onset: 12-01-2023 Viral infection (1 source) Disease caused by 2019-nCoV; Translations: [COVID-19] Onset: 12-01-2023 Results Test Name Value Interpretation Reference Range Facil ity Vital Signs Date Time Vital Sign Value Performing Clinician Facility 12-01-2023 09:00-0500 Heart rate 92 /min CHASTITY TRAMMELL MD [facility] 12-01-2023 09:00-0500 Respiratory rate 20 /min CHASTITY TRAMMELL MD [facility] 12-01-2023 09:00-0500 systolic 126 mm[Hg] CHASTITY TRAMMELL MD [facility] 12-01-2023 08:37-0500 systolic 56 mm[Hg] CHASTITY TRAMMELL MD [facility] 12-01-2023 06:30-0500 Diastolic Blood Pressure Non-Invasive 55 mm[Hg] CHASTITY TRAMMELL MD [facility] 12-01-2023 06:30-0500 Heart rate 88 /min CHASTITY TRAMMELL MD [facility] 12-01-2023 06:30-0500 Respiratory rate 18 /min CHASTITY TRAMMELL MD [facility] 12-01-2023 06:30-0500 Systolic Blood Pressure Non-Invasive 137 mm[Hg] CHASTITY TRAMMELL MD [facility] 12-01-2023 05:44-0500 diastolic 55 mm[Hg] CHASTITY TRAMMELL MD [facility] 12-01-2023 05:44-0500 Heart rate 87 /min CHASTITY TRAMMELL MD [facility] 12-01-2023 05:44-0500 Respiratory rate 18 /min CHASTITY TRAMMELL MD [facility] 12-01-2023 05:19-0500 diastolic 55 mm[Hg] CHASTITY TRAMMELL MD [facility] 12-01-2023 05:14-0500 Body temperature 98.06 [degF] CHASTITY TRAMMELL MD [facility] 11-23-2023 02:53-0500 Diastolic Blood Pressure Non-Invasive 87 mm[Hg] PATSY MONTANO MD [facility] 11-23-2023 02:53-0500 Heart rate 94 /min PATSY MONTANO MD [facility] 11-23-2023 02:53-0500 Respiratory rate 18 /min PATSY MONTANO MD [facility] 11-23-2023 02:53-0500 Systolic Blood Pressure Non-Invasive 141 mm[Hg] PATSY MONTANO MD [facility] 11-23-2023 00:01-0500 Body temperature 98.06 [degF] PATSY MONTANO MD [facility] 11-23-2023 00:01-0500 Diastolic Blood Pressure Non-Invasive 74 mm[Hg] PATSY MONTANO MD [facility] 11-23-2023 00:01-0500 Heart rate 100 /min PATSY MONTANO MD [facility] 11-23-2023 00:01-0500 Respiratory rate 18 /min PATSY MONTANO MD [facility] 11-23-2023 00:01-0500 Systolic Blood Pressure Non-Invasive 153 mm[Hg] PATSY MONTANO MD [facility] 06-21-2023 14:28-0400 Body weight 137.44 kg Leno Briggs MD Work Phone: [facility] 06-21-2023 14:28-0400 Diastolic blood pressure 84 mm[Hg] Leno Briggs MD Work Phone: [facility] 06-21-2023 14:28-0400 Heart rate 80 /min Leno Briggs MD Work Phone: [facility] 06-21-2023 14:28-0400 Respiratory rate 14 /min Leno Briggs MD Work Phone: [facility] 06-21-2023 14:28-0400 Systolic blood pressure 136 mm[Hg] Leno Briggs MD Work Phone: [facility] 05-25-2023 11:49-0400 Diastolic blood pressure 77 mm[Hg] Samantha Nava MD Work Phone: [facility] Encounters Encounter Date Encounter Type Care Provider Facility Start: 12-01-2023 End: 12-01-2023 Emergency department patient visit CHASTITY TRAMMELL MD Facility:B Start: 12-01-2023 End: 12-01-2023 Emergency department patient visit CHASTITY TRAMMELL MD [facility] Start: 11-23-2023 End: 11-23-2023 Emergency department patient visit PATSY MONTANO MD Facility:B Start: 11-22-2023 End: 11-23-2023 Emergency department patient visit PATSY MONTANO MD [facility] Start: 09-19-2023 ambulatory Leno silva MD Work Phone: [facility] Procedures Date Procedure Procedure Detail Performing Clinician Start: 06-21-2023 Drug tst prsmv instr mnt chem analyzers pr date Leno Briggs MD Work Phone: Start: 05-25-2023 Colonoscopy Samantha Santillan ch, MD Work Phone: Start: 05-04-2023 Cyanocobalamin vitamin b-12 Shantal Serrano LEAD RADIOLOGIC TECHNOLOGIST - COSTUME DRAPER Work Phone: Start: 11-04-2022 INFLUENZA SEASONAL QUADRIVALENT HIGH DOSE AGE 65+ Stephani Crooks PA-C Work Phone: Start: 05-18-2022 Brncdilat rspse spmt ry pre&post-brncdilat admn Stephani Crooks PA-C Work Phone: Plan of Treatment Date Care Activity Detail Author Start: 05-25-2028 Screening for malign ant neoplasm of colon [facility] Start: 08-31-2024 3 comp foot exam completed Diabetic Foot Exam [facility] Start: 08-31-2024 Covid-19 Vaccine ( season) Covid-19 Vaccine ( season) [facility] Immunizations Immunization Date Immunization Notes Care Provider [facility] 08-31-2023 influenza (HD-IIV4) vaccine, age 65+ yr, high dose, quadrivalent, PF (FLUZONE HIGH-DOSE) Leno Briggs MD Work Phone: [facility] 08-31-2023 pneumococcal (PCV20) vaccine, 20 valent (PREVNAR 20) Leno Briggs MD Work Phone: [facility] 11-04-2022 influenza, high-dose , quadrivalent vaccine (FLUZONE HIGH DOSE QUADRIVALENT) Stephani Crooks PA-C Work Phone: [facility] 11-04-2022 influenza virus vacc ine, unspecified formulation Samantha Nava MD Work Phone: [facility] 09-03-2021 influenza, high-dose , quadrivalent vaccine (FLUZONE HIGH DOSE QUADRIVALENT) Leno Briggs MD Work Phone: [facility] 03-17-2021 COVID-19 vaccine, fu ll dose (MODERNA) Leno Briggs MD Work Phone: [facility] 02-17-2021 COVID-19 vaccine, fu ll dose (MODERNA) Leno Briggs MD Work Phone: [facility] 07-31-2019 influenza, high dose seasonal, preservative-free Leno Briggs MD Work Phone: [facility] 09-13-2018 influenza, high dose seasonal, preservative-free Leno Briggs MD Work Phone: [facility] 12-12-2017 pneumococcal polysaccharide vaccine, 23 valent Leno Briggs MD Work Phone: [facility] 09-27-2017 influenza, injectabl e, quadrivalent, contains preservative Leno Briggs MD Work Phone: [facility] 08-27-2016 influenza, injectabl e, quadrivalent, contains preservative Leno Briggs MD Work Phone: [facility] Work Phone: 09-15-2015 influenza, high dose seasonal, preservative-free Leno Briggs MD Work Phone: [facility] Work Phone: 09-15-2015 pneumococcal conjuga te vaccine, 13 valent Leno Briggs MD Work Phone: [facility] Work Phone: 09-20-2014 influenza, seasonal, injectable Leno Briggs MD Work Phone: [facility] Work Phone: 03-27-2014 zoster vaccine, live Leno Briggs MD Work Phone: [facility] Work Phone: 10-24-2013 influenza virus vacc ine, unspecified formulation Leno Briggs MD Work Phone: [facility] 09-06-2012 influenza virus vacc ine, unspecified formulation Leno Briggs MD Work Phone: [facility] Work Phone: 06-21-2012 pneumococcal polysaccharide vaccine, 23 vallynn Briggs MD Work Phone: [facility] Work Phone: 06-18-2012 pneumococcal polysaccharide vaccine, 23 yoselin Briggs MD Work Phone: [facility] Work Phone: Payers Date Payer Category Payer Private Health Insurance [id number] 2021 Medicare [facility] AARP MEDICAR E [facility] AARP MEDICARE HMO [id number] 2021-Present [phone] [address] [address] [place] [address] O [id number] 2021 Medicare [id number] 2021 Medicare [id number] 1940 Unknown [id number] 1940 Unknown [id number] 1940 Unknown [id number] Medicare [id number] Social History Date Type Detail Facility Start: 08-15-2012 End: 04-05-2023 Tobacco smoking status NHIS Ex-smoker [facility] End: 09-22-1997 History of tobacco use Current smoker [facility] End: 09-22-1997 History of tobacco use Cigarette Smoker [facility] Start: 08-15-2012 End: 04-05-2023 Cigarettes smoked current (pack per day) - Reported 3 [facility] Start: 08-15-2012 End: 07-05-2022 Tobacco use and exposure Smokeless tobacco non-user [facility] Start: 10-13-2021 End: 08-31-2023 Alcohol intake Current non-drinker of alcohol (finding) [facility] Start: 1940 Sex Assigned At Female [facility] Start: 03-12-2022 End: 05-30-2023 Exposure to SARS-CoV-2 (event) Not sure [facility] Work Phone: Start: 07-09-2022 End: 07-19-2022 Exposure to SARS-CoV-2 (event) Unable to assess [facility] Work Phone: Start: 04-01-2023 History SDOH Alcohol Frequency 1 [facility] Start: 04-01-2023 History SDOH Alcohol Std Drinks 0 [facility] Start: 04-01-2023 History SDOH Social Connections Phone 4 [facility] Start: 04-01-2023 History SDOH Social Connections Get Together 5 [facility] Start: 04-01-2023 History SDOH Social Connections Membership 2 [facility] Start: 04-05-2023 End: 05-30-2023 Alcohol intake Lifetime non-drinker (finding) [facility] Start: 1940 Sex Assigned At Not on file S [facility] Start: 04-05-2023 End: 04-11-2023 Tobacco use panel [facility] Within the last year , have you been afraid of your partner or ex-partner? No [facility] Are you now , , , , never or living with a partner? [facility] How often to you hav e a drink containing alcohol? Never [facility] How many standard drinks containing alcohol do you have on a typical day? Patient does not drink [facility] How hard is it for y ou to pay for the very basics like food, housing, medical care, and heating Not very hard [facility] Do you feel stress - tense, restless, nervous, or anxious, or unable to sleep at night because your mind is troubled all the time - these days [OSQ] Only a little [facility] (I/We) worried wheth er (my/our) food would run out before (I/we) got money to buy more. Never true [facility] Start: 07-17-2021 Gender identity Identifies as female gender (finding) [facility] Start: 07-17-2021 Sexual orientation Heterosexual (torres parker) [facility] Start: 12-31-2022 Tobacco smoking status Never s moked tobacco (finding) [facility] Sex Assigned At Sex [facility] Medical Equipment Procedure Code Equipment Code Equipment Origin al Text Equipment Identifier Dates Start: 09-08-2021 Functional Status Date Assessment Result Facility 12-01-2023 Functional Status Moderate assistance [facility] 12-01-2023 Functional Status Identified as high risk, Fall ID band on, Room located near nursing station [facility] 12-01-2023 Functional Status Ricarda prater [facility] 11-23-2023 Functional Status Standard Safet y ID band on, Call device within reach [facility] Mental Status Date Assessment Result Facility 12-01-2023 Mental Status Orientation Not oriented to place, Not oriented to time [facility] 12-01-2023 Mental Status [facility] 12-01-2023 Mental Status [facility] 11-23-2023 Mental Status Orientation Not oriented to place, Not oriented to time, Not oriented to situation, Follows simple commands [facility] Clinical Notes 01-01-2019 to 12-01-2023 Telephone Encounter - [place] Ma - 09/20/2023 10:45 AM ESTTelephone Encounter - [place] Ma - 09/20/2023 7:54 AM ESTTelephone Encounter - Loida Rosas - 09/15/2023 3:40 PM EST Note Date & Type Note Facility 12-01-2023 Evaluation + Plan note Diagnostic Tests PendingUrine Culture 12/01/23 [facility] 12-01-2023 Hospital Discharge instructions Patient Education 12/01/2023 08:17:25 Caring for End-Stage Dementia Caring for End-Stage Dementia The healthcare provider and healthcare team will meet with you to discuss your loved one s treatment plan. Dementia is the loss of brain function that occurs with certain brain conditions. It affects memory and makes it harder for a person to think clearly and communicate. As dementia slowly worsens, disability increases. Over time, a person loses the ability to care for himself or herself. If your loved one has now progressed to end-stage (advanced) dementia, it may help to know what to expect and plan for what lies ahead. Understanding end-stage dementia Symptoms are different for each person. But in general, dementia has 3 basic stages. Each stage can last a few months to years. End-stage dementia is the last, and often most stressful, stage for both patients and families. Once this point is reached, your loved one s brain function will have severely declined. This will affect how the rest of your loved one s body functions. With end-stage dementia, your loved one may no longer: Recognize family members and friends Reason or have sound judgment Speak or understand language Have bowel and bladder control Eat or swallow properly. You may have to consider tube feeding or using a device to provide nutrition. Although many experts recommend hand feeding instead. Walk properly. He or she may need a wheelchair or be bed-bound. Do normal daily tasks. He or she will need constant care. Advance care planning It's important to try to plan ahead for care before your loved one is still mentally aware enough to make decisions. This can help your loved one avoid treatments that he or she does not want or need. This care planning usually takes the form of a written advance directive. This document outlines what health care your loved one does and does not want done when he or she is no longer able to speak for himself or herself. Your loved one should also have a healthcare proxy in place. This lists the person who will make healthcare decisions for your loved one when he or she is not able to make or communicate those decisions. Revisiting your loved one s care plan Because of the extent of the physical and mental changes that can occur with end-stage dementia, your loved one s goals of care and treatment plan may need to change. Your loved one s doctor and healthcare team can help guide you through this process. When meeting with the team, you and others involved in your loved one s care may want to ask: How much longer does our loved one have to live? How can symptoms be managed at this time? What treatments might be helpful? What are the risks and benefits of these treatments? How will these treatments help with overall health and comfort? These questions may lead to further discussions about end-of-life care. Although these discussions can be difficult, remember that the goal is to provide the best care and quality of life for your loved one. Think about conversations you may have shared about the kind of treatments your loved one wants at the end of life. Consider their personal values or barbara. Also ask for advice from those who share those values. Considering care and placement options With end-stage dementia, your loved one s caregiving needs will greatly increase. If you are still caring for your loved one at home, you may want to explore other care options at this time. These may include: Private sitter services. A private sitter is a special type of caregiver. This person s main job is to monitor and keep the patient company. Sitter services are sometimes covered by long-term care insurance plans. Placement in a longterm or jail facility. This type of facility assists with tasks of daily living. It also provides constant medical care. Trained healthcare providers, skilled nurses, and therapists are onsite to assist with care. Hospice care. This is end-of-life care that can be done in a jail facility, hospice center, or at home. Hospice care focuses on ensuring comfort and enhancing quality of life in the time your loved one has left. It also provides physical, emotional, and spiritual support for both patients and families. Deciding whether to move your loved one to a facility or to end-of-life care can be upsetting. But know that you re not alone in this process. Your loved one s healthcare team can help address your questions and concerns. You can also seek advice from a social work specialist, nuclear plant technical advisor, or city attorney. Getting support Coping with your loved one s condition can wear you down over time. Grief, anger, fear, and worry these are all normal emotions. Rather than dealing with your emotions alone, it may help to reach out to others. Talking with other family members and friends may help. Joining a support group for families and caregivers of loved ones with dementia may also help. You can seek support from your loved one s healthcare team as well. You can also contact your [facility] department to find other resources within your community. [phone] [employer]. [address] [place] [address], [place] [address]. All rights reserved. This information is not intended as a substitute for professional medical care. Always follow your healthcare professional's instructions. Follow Up Care 12/01/2023 05:04:16 With:LENO BRIGGS MD Address: [address] [place] [id number]- When:2-4 days [facility] Ricarda Silvestre 12-01-2023 Emergency department Discharge summary Discharge Instructions Thank you for allowing [facility] to assist you with your healthcare needs. The following is important discharge information regarding your hospital visit. Diagnosis from Today's Visit Agitation in dementia COVID-19 eval for combative, agitated What to Do Next Instructions from Your Care Team No qualifying data available. Post Acute Orders No qualifying data available. You Need to Schedule the Following Appointments Follow Up with LENO BRIGGS MD When Within 2-4 days Where: [address] [place] [address]- Allergies Bactrim codeine escitalopram oxybutynin sertraline traMADol [...] medication providers or retail pharmacies. Education Materials Caring for End-Stage Dementia The healthcare provider and healthcare team will meet with you to discuss your loved one s treatment plan. Dementia is the loss of brain function that occurs with certain brain conditions. It affects memory and makes it harder for a person to think clearly and communicate. As dementia slowly worsens, disability increases. Over time, a person loses the ability to care for himself or herself. If your loved one has now progressed to end-stage (advanced) dementia, it may help to know what to expect and plan for what lies ahead. Understanding end-stage dementia Symptoms are different for each person. But in general, dementia has 3 basic stages. Each stage can last a few months to years. End-stage dementia is the last, and often most stressful, stage for both patients and families. Once this point is reached, your loved one s brain function will have severely declined. This will affect how the rest of your loved one s body functions. With end-stage dementia, your loved one may no longer: Recognize family members and friends Reason or have sound judgment Speak or understand language Have bowel and bladder control Eat or swallow properly. You may have to consider tube feeding or using a device to provide nutrition. Although many experts recommend hand feeding instead. Walk properly. He or she may need a wheelchair or be bed-bound. Do normal daily tasks. He or she will need constant care. Advance care planning It's important to try to plan ahead for care before your loved one is still mentally aware enough to make decisions. This can help your loved one avoid treatments that he or she does not want or need. This care planning usually takes the form of a written advance directive. This document outlines what health care your loved one does and does not want done when he or she is no longer able to speak for himself or herself. Your loved one should also have a healthcare proxy in place. This lists the person who will make healthcare decisions for your loved one when he or she is not able to make or communicate those decisions. Revisiting your loved one s care plan Because of the extent of the physical and mental changes that can occur with end-stage dementia, your loved one s goals of care and treatment plan may need to change. Your loved one s doctor and healthcare team can help guide you through this process. When meeting with the team, you and others involved in your loved one s care may want to ask: How much longer does our loved one have to live? How can symptoms be managed at this time? What treatments might be helpful? What are the risks and benefits of these treatments? How will these treatments help with overall health and comfort? These questions may lead to further discussions about end-of-life care. Although these discussions can be difficult, remember that the goal is to provide the best care and quality of life for your loved one. Think about conversations you may have shared about the kind of treatments your loved one wants at the end of life. Consider their personal values or barbara. Also ask for advice from those who share those values. Considering care and placement options With end-stage dementia, your loved one s caregiving needs will greatly increase. If you are still caring for your loved one at home, you may want to explore other care options at this time. These may include: Private sitter services. A private sitter is a special type of caregiver. This person s main job is to monitor and keep the patient company. Sitter services are sometimes covered by long-term care insurance plans. Placement in a longterm or jail facility. This type of facility assists with tasks of daily living. It also provides constant medical care. Trained healthcare providers, skilled nurses, and therapists are onsite to assist with care. Hospice care. This is end-of-life care that can be done in a jail facility, hospice center, or at home. Hospice care focuses on ensuring comfort and enhancing quality of life in the time your loved one has left. It also provides physical, emotional, and spiritual support for both patients and families. Deciding whether to move your loved one to a facility or to end-of-life care can be upsetting. But know that you re not alone in this process. Your loved one s healthcare team can help address your questions and concerns. You can also seek advice from a social work specialist, nuclear plant technical advisor, or city attorney. Getting support Coping with your loved one s condition can wear you down over time. Grief, anger, fear, and worry these are all normal emotions. Rather than dealing with your emotions alone, it may help to reach out to others. Talking with other family members and friends may help. Joining a support group for families and caregivers of loved ones with dementia may also help. You can seek support from your loved one s healthcare team as well. You can also contact your [facility] to find other resources within your community. [phone] [employer]. [address] [place] [address]. All rights reserved. This information is not intended as a substitute for professional medical care. Always follow your healthcare professional's instructions. Additional Information VACCINATE! IT SAVES LIVES! Members of the community who have not yet received the COVID-19 vaccine and would like to receive it can visit one of [facility] vaccine clinics. There are many vaccine clinic locations within the [facility]. For locations and available times, please visit [email or web address] [email or web address] It is important to note that some COVID mobile vaccine clinics are held outdoors and may be canceled in rainy or stormy conditions. To learn more about pediatric vaccinations (ages 5-11), we invite you to visit the [facility] webpage. https://www.[facility].org/pa ges/7570-Qcous-Ezxsxtgtqog-Freque ngqd-Qyage-Kflvhkuac.html To learn more about the COVID-19 vaccine, we invite you to visit the CDC website for a list of frequently asked questions. https://www.cdc.gov/coronavirus/2 019-ncov/vaccines/faq.html [facility] Patient Portal Access Instructions: Stay connected with your healthcare team and access your personal medical information anytime with the [facility]. If you would like a full copy of your medical records please contact the [facility] Medical Records Department Tuesday through Tuesday between 8a.m. and 4:30p.m. Please follow the directions below to access the portal: 1.Access the email account you provided upon registration to the [facility].2.Look for an invitation email from [facility].3.Open the email and access the invitation link: Accept Invitation to RicardaWuzzuf4.Fill in the required quintana to create your [...] you will allow to register on the [facility] Patient Portal for access to your information. You can also access the [facility] Patient Portal on the Bit9 miles. Simply click on Health Records under [...] Call your local pharmacy or go to [email or web address] to find one close to you.3.Make use of household items: Use cat litter or old coffee grounds to dispose medications if other options are not available. Mix your drugs with these household products, seal them in an airtight container and throw it into the garbage. Call [facility]: [phone] to be sure your drugs can be [...] a CHART COPY Signatures Patient Education Materials Caring for End-Stage Dementia Medication Leaflets My discharge plan and instructions have been reviewed and explained to me and ISAMANTHA BONNIE J understand my current condition and have read and understand these discharge instructions. I have received a written copy of the plan/instructions. If I have questions, I am aware that I should contact my doctor. 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 Automated exposure control, iterative reconstruction, and/or weight based adjustment of the mA/kV was utilized to reduce the radiation dose to as low as reasonably achievable. COMPARISON: 11/23/2023. HISTORY: ORDERING SYSTEM PROVIDED HISTORY: Reason for Exam: Altered mental status FINDINGS: There is no acute intracranial hemorrhage, mass [...] parenchymal volume loss. No acute bony findings. Right maxillary sinus, sphenoid sinus, and ethmoid air cell mucosal disease. Grossly clear mastoid air cells. Bilateral lens replacements. IMPRESSION: No acute intracranial abnormality identified. I have personally reviewed the images of this examination and agree with the resident's findings and interpretation. Interpreted by: Kyler Mckenna MD Preliminary Report By: Shiv Muñoz Electronically signed By Kyler Mckenna MD Dictated Date: 12/01/2023 6:25:52 AM Prelim Date: 12/01/2023 6:28:46 AM Sign Date: 12/01/2023 7:47:06 AM Ordering Provider: MARY ANN MENENDEZ [facility] 12-01-2023 Note Sinus rhythm Borderline left axis deviation Abnormal R-wave progression, early transition Repol abnrm suggests ischemia, lateral leads Electronic Signature: ROMINA AUSTIN MD 12/01/2023 10:10:32 [facility] 11-23-2023 Hospital Discharge instructions Patient Education 11/23/2023 [...] body part Frequent bruising for unknown reasons [phone] [employer]. [address] [place] [address]. All rights reserved. This information is not [...] the ears or bruising around the eyes [phone] [employer]. [address] [place] [address]. All rights reserved. This information is not intended as a substitute for professional medical care. Always follow your healthcare professional's instructions. Follow Up Care 11/22/2023 23:57:40 With:LENO BRIGGS Address: [address] [place] [address]- [facility] (1) When:Within 1 Week(s) Comments:Follow-up as needed.Tylenol for pain as needed.Return to the ED for any problems or concerns. [facility] 11-23-2023 Note Discharge Instructions Thank you for allowing [facility] to assist you with your healthcare needs. [...] for any problems or concerns. Where: [address] [place] [address]- Business (1) Allergies Bactrim codeine escitalopram oxybutynin sertraline [...] body part Frequent bruising for unknown reasons [id number] [employer]. [address] [place] [address]. All rights reserved. This information is not [...] the ears or bruising around the eyes [phone] [employer]. [address] [place] [address]. All rights reserved. This information is not intended as a substitute for professional medical care. Always follow your healthcare professional's instructions. Additional Information VACCINATE! IT SAVES LIVES! Members of the community who have not yet received the COVID-19 vaccine and would like to receive it can visit one of [facility] vaccine clinics. There are many vaccine clinic locations within the [facility]. For locations and available times, please visit [email or web address] ov/. It is important to note that some COVID mobile vaccine clinics are held outdoors and may be canceled in rainy or stormy conditions. To learn more about pediatric vaccinations (ages 5-11), we invite you to visit the [facility] webpage. https://www.[facility].org/pa ges/1674-Bavvs-Yeooivrzdqd-Freque fxvz-Xemwh-Jpzbbemsp.html To learn more about the COVID-19 vaccine, we invite you to visit the CDC website for a list of frequently asked questions. https://www.cdc.gov/coronavirus/2 019-ncov/vaccines/faq.html [facility] Patient Portal Access Instructions: Stay connected with your healthcare team and access your personal medical information anytime with the [facility] Patient Portal. If you would like a full copy of your medical records please contact the [facility] Medical Records Department Tuesday through Tuesday between 8a.m. and 4:30p.m. Please follow the directions below to access the portal: 1.Access the email account you provided upon registration to the hospital.2.Look for an invitation email from [facility].3.Open the email and access the invitation link: Accept Invitation to RicardaWuzzuf4.Fill in the required quintana to create your account. Sign into [email or web address] with your username and password that you [...] you will allow to register on the [facility] Patient Portal for access to your information. You can also access the [facility] Patient Portal on the Bit9 miles. Simply click on Health Records under Health Data and then click on the [employer] logo. HOW TO SAFELY DISPOSE OF PRESCRIPTION [...] Call your local pharmacy or go to [email or web address]/[email or web address] to find one close to you.3.Make use of household items: Use cat litter or old coffee grounds to dispose medications if other options are not available. Mix your drugs with these household products, seal them in an airtight container and throw it into the garbage. Call [facility]: [phone] to be sure your drugs can be [...] aware that I should contact my doctor. 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 Author Type: LICENSED NURSE Type: Progress Notes Filed: 11/17/2023 07:18 Note Text: Scan on 11/16/2023 4:44 PM by Provider, Niharika PALeviC: Consultation - GI [facility] 11-08-2023 Note HNO ID: [id number] Author: Melissa Parra LPN Service: ? Author Type: LICENSED NURSE Type: Progress Notes Filed: 11/08/2023 3:57 PM Note Text: Scan on 11/08/2023 1:21 PM by Provider, ISADORA BundyC: Echo Scan on 11/06/2023 8:17 PM by ProviderNiharika PA-C Scan on 11/06/2023 4:45 PM by ProviderNiharika PA-C: Consultation - Emergency Medicine Scan on 11/08/2023 3:12 PM by ProviderNiharika PA-C: Consultation - ID [facility] 11-08-2023 Note HNO ID: [id number] Author: Melissa Parra LPN Service: ? Author Type: LICENSED NURSE Type: Progress Notes Filed: 11/08/2023 1:48 PM Note Text: Scan on 11/06/2023 3:21 PM by ProviderNiharika PA-C: X-ray Scan on 11/06/2023 4:45 PM by ProviderNiharika PA-C: Consultation - Emergency Medicine Scan on 11/06/2023 8:17 PM by ProviderNiharika PA-Aline [facility] 09-20-2023 Miscellaneous Notes PA approved faxing approval to [facility] at [phone] Daughter was notified approved not sure on cost of drug with insurance covering will need to call pharmacy to get info [place] [facility] Reviewed medication and rx was sent correctly 2 BID for 90 day supply is 360 tab, did submit a PA to see if cost can be lowered for 90 day supply [place] [facility] documented in this encounter [facility] 09-15-2023 Telephone encounter Note Left message notifying and to call back with which way they'd like to do the visit. [facility] 09-15-2023 Miscellaneous Notes Left message notifying and to call back with which way they'd like to do the visit. OK for virtual visit although we will not be able to facilitate memory testing over MyChart or phone. If they are wanting memory testing then visit will need to be in the office. Name of caller: Mariela Contact phone number: [phone] Relationship to Patient: Daughter Provider: Shantal Serrano APRN, CNP Practice: [facility] Chief Complaint/Reason for Call: Mariela Hawley called asking if the 09-27 office visit appt. May be changed to a Video. aMriela stated that patient has several appointments on 09-26 and that the next day appt., 09-27 may be too much. Pt easily gets tired. Please advise. Best time of day caller can be reached: any Patient advised that office/PCP has 24-48 business hours to return their call: Yes documented in this encounter [facility] 09-15-2023 Telephone encounter Note OK for virtual visit although we will not be able to facilitate memory testing over MyChart or phone. If they are wanting memory testing then visit will need to be in the office. [facility] 09-14-2023 Telephone encounter Note Name of caller: Mariela Contact phone number: [phone] Relationship to Patient: Daughter Provider: Shantal Serrano [...] business hours to return their call: Yes [facility] 09-02-2023 Miscellaneous Notes Daughter was notified [...] stable or not. documented in this encounter [facility] 08-31-2023 Note HNO ID: [id number] Author: Leno Briggs MD Service: ? Author [...] mellitus type 2 in obese ([facility]) 06/2015 a1c 6.5% Diabetic eye exam ([facility]) 03/15/2017 Last done: 10/24/2019 No Retinopathy [...] TACO (obstructive sleep apnea) [facility] [phone] Pain due to total left knee replacement ([facility]) 06/08/2018 Personal history of colonic polyps 01/23/2016 Primary insomnia 03/16/2017 Brain center 06/26/2018 recommended Klonopin every other day for a week and then just as needed. Primary osteoarthritis of right knee 07/13/2016 Pulmonary nodules 03/03/2013 Incidental non-calcified nodules 10/09/2012. Repeat CT due 06/2013 Recurrent major depressive disorder, in full remission ([facility]) 08/17/2012 Rheumatoid arthritis(714.0) Spondylosis of lumbar region without myelopathy or radiculopathy 05/28/2015 Status post total left knee replacement 06/08/2018 Stress incontinence 11/21/[address] Armas. Thyroid nodule 11/15/2018 Stable on 2017 Type 2 diabetes mellitus with stage 3 chronic kidney disease, without long-term current use of insulin ([facility]) 06/06/2017 Urge incontinence 11/21/2012 PAST SURGICAL HISTORY PAST SURGICAL HISTORY Procedure Laterality Date CHOLECYSTECTOMY HX 10/30/1997 COLONOSCOP W/ OR W/O [facility] SPEC 11/29/12 Colonoscopy repeat 3 years COLONOSCOP W/ OR W/O [facility] SPEC 01/28/16 Colonoscopy with mac COLONOSCOPY AND POLYPECTOMY ~2007 2 polyps COLONOSCOPY AND POLYPECTOMY ~2001 7 polyps COLONOSCOPY AND POLYPECTOMY 11/30/2011 CYSTOSCOPY 09/21/12 EGD 10/17/2011 Dr Negrete in [place] EGD W/O OR W/BRUSH/WASH 05/16/2014 EGD EGD W/O OR W/BRUSH/WASH 09/12/14 EGD EGD W/O OR W/BRUSH/WASH 01/06/2017 EGD EGD W/O OR W/BRUSH/WASH 07/21/2020 EGD REMOVE CATARACT, INSERT LENS, INTRACAPSUL Bilateral 2008 TOTAL KNEE REPLACEMENT Left 06/08/2012 Bactrim [Sulfamethoxazole-Trimethoprim], [...] completed and revi (more content not included)... [facility] 08-23-2023 Miscellaneous Notes The following approved medication requests have been transmitted electronically. Requested Prescriptions Signed Prescriptions Disp Refills phenazopyridine (PYRIDIUM) 100 mg tablet 360 tablet 1 Sig: Take 2 tablets by mouth two times a day. Authorizing Provider: LEON BRIGGS MD Change of Pharmacy Requested Prescriptions Pending Prescriptions Disp Refills phenazopyridine (PYRIDIUM) 100 mg tablet 120 tablet 5 Sig: Take 2 tablets by mouth two times a day. Date of last office visit in primary care: 06/21/2023 Date of next office visit in primary care: 08/31/2023 Please advise. Thank you. Nel Cope LPN. documented in this encounter [facility] 08-16-2023 Telephone encounter Note Preferred contact number: [phone] Reason for Visit: Caller states she would like to cancel appointment due to transportation and would like a call to schedule. Please advise. Thank you Urgency of Appointment: na Medications in need of refill: na [facility] 08-16-2023 Miscellaneous Notes Preferred contact number: [phone] Reason for Visit: Caller states she would like to cancel appointment due to transportation and would like a call to schedule. Please advise. Thank you Urgency of Appointment: na Medications in need of refill: na documented in this encounter [facility] 07-05-2023 Telephone encounter Note Daughter wanted [...] prior to picking up the medication: N/A [facility] 07-05-2023 Miscellaneous Notes Daughter wanted to [...] the medication: N/A documented in this encounter [facility] 07-05-2023 Miscellaneous Notes Spoke with pt's daughter and information below given. Shelby Rogel LPN Left message for pt's daughter to contact office. Cynthia Shirley LPN Let family know the Aricept (donepezil) is prescribed by patient's bleach tester and will need to contact that office [...] Nel Cope LPN documented in this encounter [facility] 06-21-2023 Note HNO ID: [id number] Author: Leno Briggs MD Service: ? Author [...] life is less. She has been taking Gooding 5/325 one twice a day since 04/2018 and up till now was doing well with this. Her daughter, (Mariela) who is her with her today, notes that it no longer controls the pain for as long of a time as it used to. She requires extra strength tylenol in between doses and even then it's not as well as when she takes a Gooding. Patient has not been seen for routine since 10/2022. She is now seeing a bleach tester for her dementia. She was recently found [...] stage 3, GFR 30-59 ml/min ([facility]) 01/01/2019 COPD with chronic bronchitis ([facility]) 02/15/2017 Dr. Brito Current use of proton pump inhibitor 11/25/2016 Mg checked 11/2017 DDD (degenerative disc disease), cervical 07/29/2015 DDD (degenerative disc disease), lumbar 05/08/2013 Diabetes mellitus type 2 in obese ([facility]) 06/2015 a1c 6.5% Diabetic eye exam ([facility]) 03/15/2017 Last done: 10/24/2019 No Retinopathy [...] TACO (obstructive sleep apnea) D[facility] [phone] Pain due to total left knee replacement [...] depressive disorder, in full remission ([facility]) 08/17/2012 Rheumatoid arthritis(714.0) Spondylosis of lumbar region without myelopathy or radiculopathy 05/28/2015 Status post total left knee replacement 06/08/2018 Stress incontinence 11/21/[address] Armas. Thyroid nodule 11/15/2018 Stable on 2017 Type 2 diabetes mellitus with stage 3 chronic kidney disease, without long-term current use of insulin ([facility]) 06/06/2017 Urge incontinence 11/21/2012 Previous Surgical [...] CYSTOSCOPY 09/21/12 EGD 10/17/2011 Dr Negrete in [place] ESOPHAGOGASTRODUODENOSCOPY TRANSORAL DIAGNOSTIC 05/16/2014 EGD ESOPHAGOGASTRODUODENOSCOPY TRANSORAL DIAGNOSTIC 09/12/14 EGD ESOPHAGOGASTRODUODENOSCOPY TRANSORAL DIAGNOSTIC 01/06/2017 EGD ESOPHAGOGASTRODUODENOSCOPY TRANSORAL D (more content not included)... [facility] 06-21-2023 History of Present illness Narrative [...] life is less. She has been taking Gooding 5/325 one twice a day since 04/2018 and up till now was doing well with this. Her daughter, (Mariela) who is her with her today, notes that it no longer controls the pain for as long of a time as it used to. She requires extra strength tylenol in between doses and even then it's not as well as when she takes a Gooding. Patient has not been seen for routine since 10/2022. She is now seeing a bleach tester for her dementia. She was recently found [...] stage 3, GFR 30-59 ml/min ([facility]) 01/01/2019 COPD with chronic bronchitis ([facility]) 02/15/2017 Dr. Brito Current use of proton pump inhibitor 11/25/2016 Mg checked 11/2017 DDD (degenerative disc disease), cervical 07/29/2015 DDD (degenerative disc disease), lumbar 05/08/2013 Diabetes mellitus type 2 in obese ([facility]) 06/2015 a1c 6.5% Diabetic eye exam ([facility]) 03/15/2017 Last done: 10/24/2019 No Retinopathy [...] TACO (obstructive sleep apnea) [facility] [phone] Pain due to total left knee replacement ([facility]) 06/08/2018 Personal history of colonic polyps 01/23/2016 Primary insomnia 03/16/2017 Brain center 06/26/2018 recommended Klonopin every other day for a week and then just as needed. Primary osteoarthritis of right knee 07/13/2016 Pulmonary hypertension ([facility]) 05/19/2022 Seeing pulm and cardio Pulmonary nodules 03/03/2013 Incidental non-calcified nodules 10/09/2012. Repeat CT due 06/2013 Recurrent major depressive disorder, in full remission ([facility]) 08/17/2012 Rheumatoid arthritis(714.0) Spondylosis of lumbar [...] CYSTOSCOPY 09/21/12 EGD 10/17/2011 Dr Negrete in [place] ESOPHAGOGASTRODUODENOSCOPY TRANSORAL DIAGNOSTIC 05/16/2014 EGD ESOPHAGOGASTRODUODENOSCOPY TRANSORAL [...] rate Oxybutynin Other: See Comments suggerst by [employer] to stop since it can add to [...] DX E11.22 Insulin No) Walker (ULTRA-LIGHT ROLLATOR) [facility] One Rolator with seat. Dx: J44.9, M54.9, [...] which included preparing to see the patient, [id number] patient care, completing clinical documentation, performing a medically appropriate examination, counseling and educating the patient/family/caregiver and ordering medications, tests, or procedures. Leno Briggs MD documented in this encounter [facility] 06-20-2023 Miscellaneous Notes Left message for pt's daughter that Stephani did review pt's chart and advised that pt does need to see Dr Briggs instead of her tomorrow. Advised pt is scheduled at 2:20 tomorrow 06/[address] Briggs. Daughter had called earlier to reschedule appointment that pt had canceled. Cynthia Shirley LPN documented in this encounter [facility] 05-30-2023 History of Present illness Narrative COLORECTAL SURGERY OFFICE VISIT PATIENT NAME: Robbin Singh : 1940 TODAY'S DATE: 05/30/2023 Chief Complaint Patient presents with Results [facility] # [phone](Mariela, daughter)Discuss results of colonoscopy done 05/25/23 Patient [...] stated that they are currently in the [facility]. If the patient is a minor, [...] Patient has dementia and is daughter is farm or ranch animal caretaker. She noticed feces inside her vagina. She [...] 05/25/2023 Performed by Samantha Nava MD at [address] ENDOSCOPY Current Outpatient Medications on File [...] Take 600 mg by mouth daily. HYDROcodone-acetaminophen (Gooding) 5-325 MG tablet Take 1 tablet by [...] tablet Take 1 tablet by mouth daily. Odessa-3 Fatty Acids (FISH OIL OMEGA-3 PO) Take [...] judgement RECTUM: deferred Exam chaperoned by female pharmacy technician assistant. IMAGING: Per chart rveiew She underwent a CT scan at [facility] on 12/31/2022 with findings of mid [...] was performed when available. Samantha Nava MD [facility] Colorectal Surgery [address] [place] [address], [address] [place] [address] p [phone] f [phone] documented in this encounter [facility] 05-25-2023 Note Patient: Robbin niño Procedure Summary Date: 05/25/23 Room / Location: [address] SEC 1 / [facility] Gastroenterology Anesthesia Start: 1042 Anesthesia Stop: 1130 [...] all PACU criteria has been met. [facility] 05-25-2023 Note Patient: Robbin niño Procedure Summary Date: 05/25/23 Room / Location: [address] ENDO SEC 1 / [facility] Gastroenterology Anesthesia [...] for questions and acknowledgement of understanding. [facility] 05-25-2023 Note Endoscopy Center- [facility] Patient Name: Robbin Singh Procedure Date: 05/25/2023 10:43 AM Gender: Female Date of : 1940 Age: 82 Admit Type: Outpatient Note Status: Finalized Endoscopist: Samantha Nava MD, [id number] Procedure: Colonoscopy Indications: Follow-up of diverticulitis, Colovaginal [...] immediate complications. Procedure Code(s): --- Professional --- 59601, Colonoscopy, flexible; with removal of tumor(s), polyp(s), or other lesion(s) by snare technique --- Technical --- 19198, Colonoscopy, flexible; with removal of tumor(s), polyp(s), or other lesion(s) by snare technique CPT copyright 2021 [employer]. All rights reserved. The codes documented in this report are preliminary and upon tar and ammonia pump operator review may be revised to meet current compliance requirements. Attending Participation: I personally performed the entire procedure. Samantha Nava MD 05/25/2023 11:25:44 AM This report has been signed electronically. Number of Addenda: 0 Note Initiated On: 05/25/2023 10:43 AM [facility] 05-25-2023 Note Formatting of this n ote might be different from the original. [facility]: Robbin Singh Procedure Date: 05/25/2023 10:43 AM Gender: Female Date of : 1940 Age: 82 Admit Type: Outpatient Note Status: Finalized Endoscopist: Samantha Nava MD, [id number] Procedure: Colonoscopy Indications: Follow-up of diverticulitis, Colovaginal [...] immediate complications. Procedure Code(s): --- Professional --- 45430, Colonoscopy, flexible; with removal of tumor(s), polyp(s), or other lesion(s) by snare technique --- Technical --- 82705, Colonoscopy, flexible; with removal of tumor(s), polyp(s), or other lesion(s) by snare technique CPT copyright 2021 [employer]. All rights reserved. The codes documented in this report are preliminary and upon tar and ammonia pump operator review may be revised to meet current compliance requirements. Attending Participation: I personally performed the entire procedure. Samantha Nava MD 05/25/2023 11:25:44 AM This report has been signed electronically. Number of Addenda: 0 Note Initiated On: 05/25/2023 10:43 AM [facility] [employer] 05-25-2023 Note Formatting of this n ote might be different from the original. [facility] Name: Robbin Singh Procedure Date: 05/25/2023 10:43 AM Gender: Female Date of : 1940 Age: 82 Admit Type: Outpatient Note Status: Finalized Endoscopist: Samantha Nava MD, [id number] Procedure: Colonoscopy Indications: Follow-up of diverticulitis, Colovaginal [...] immediate complications. Procedure Code(s): --- Professional --- 16612, Colonoscopy, flexible; with removal of tumor(s), polyp(s), or other lesion(s) by snare technique --- Technical --- 01331, Colonoscopy, flexible; with removal of tumor(s), polyp(s), or other lesion(s) by snare technique CPT copyright 2021 [employer]. All rights reserved. The codes documented in this report are preliminary and upon tar and ammonia pump operator review may be revised to meet current compliance requirements. Attending Participation: I personally performed the entire procedure. Samantha Nava MD 05/25/2023 11:25:44 AM This report has been signed electronically. Number of Addenda: 0 Note Initiated On: 05/25/2023 10:43 AM [facility] 05-25-2023 Miscellaneous Notes [facility] Patient Name: Robbin Singh Procedure Date: 05/25/2023 10:43 AM Gender: Female Date of : 1940 Age: 82 Admit Type: Outpatient Note Status: Finalized Endoscopist: Samantha Nava MD, [id number] Procedure: Colonoscopy Indications: Follow-up of diverticulitis, Colovaginal [...] for surveillance. Referring MD: Samantha Nava MD, Kellen Welch Medicines: Monitored Anesthesia Care Procedure: Pre-Anesthesia Assessment: [...] immediate complications. Procedure Code(s): --- Professional --- 19724, Colonoscopy, flexible; with removal of tumor(s), polyp(s), or other lesion(s) by snare technique --- Technical --- 79525, Colonoscopy, flexible; with removal of tumor(s), polyp(s), or other lesion(s) by snare technique CPT copyright 2021 [employer]. All rights reserved. The codes documented in this report are preliminary and upon tar and ammonia pump operator review may be revised to meet current compliance requirements. Attending Participation: I personally performed the entire procedure. Samantha Nava MD 05/25/2023 11:25:44 AM This report has been signed electronically. Number of Addenda: 0 Note Initiated On: 05/25/2023 10:43 AM documented in this encounter [facility] 05-25-2023 Note Endoscopy History an d [...] mg by mouth daily. Past Week HYDROcodone-acetaminophen (Gooding) 5-325 MG tablet Take 1 tablet by [...] Take 1 tablet by mouth daily. 05/24/2023 Odessa-3 Fatty Acids (FISH OIL OMEGA-3 PO) Take [...] HEMATOLOGIC/LYMPHATIC: N (more content not included)... [facility] 05-25-2023 Note Patient: Robbin niño Procedure Information Date/Time: 05/25/23 0900 Procedure: COLONOSCOPY Location: [address] ENDO SEC 1 / [facility] Gastroenterology Providers: Samantha Nava MD Relevant Problems Cardio (+) CHF (congestive heart failure) ([facility]/HCC) (HCC) (+) Pulmonary hypertension (HCC) Endo (+) [...] for this or any previous visit. [facility] 05-25-2023 History and physical note Endoscopy History and Physical PATIENT NAME: Robbin Snigh DATE OF : 1940 ADMISSION DATE: 05/25/2023 [...] mg by mouth daily. Past Week HYDROcodone-acetaminophen (Gooding) 5-325 MG tablet Take 1 tablet by [...] Take 1 tablet by mouth daily. 05/24/2023 Odessa-3 Fatty Acids (FISH OIL OMEGA-3 PO) Take [...] understanding and willingness to proceed with plan. [employer] Phone: 05-25-2023 History and physical note Endoscopy [...] mg by mouth daily. Past Week HYDROcodone-acetaminophen (Gooding) 5-325 MG tablet Take 1 tablet by [...] Take 1 tablet by mouth daily. 05/24/2023 Odessa-3 Fatty Acids (FISH OIL OMEGA-3 PO) Take [...] proceed with plan. documented in this encounter [facility] [employer] 05-17-2023 History of Present illness Narrative Interval [...] Day/Night Reversal Advanced Directives Healthcare Power of Brake Linings Coater Living Will Recommend Financial Power of Brake Linings Coater Elder Law Brake Linings Coater [facility] Direct[facility] Information Guide Personal Care Personal Care Tips Bathing Tips Dressing Tips Images from the original note were not included. [facility] [address] [place] [address] Dept: [phone] Dept Loc: [phone] Visit type: [facility] Family Summary Conference Reason [...] through following means: Alzheimer's Association support and hammerer helper Reviewed advanced care plan. Health Care Power of Brake Linings Coater, Financial Power of Brake Linings Coater, and Living Will Educational information and handouts [...] 03/2023 for memory loss x 1 year, Cherry 19 (MIS 2), CDT 5, PHQ 1, [...] Take 600 mg by mouth daily. HYDROcodone-acetaminophen (Gooding) 5-325 MG tablet Take 1 tablet by [...] tablet Take 1 tablet by mouth daily. Odessa-3 Fatty Acids (FISH OIL OMEGA-3 PO) Take [...] pulmonary disease) (HCC) Depression Pulmonary hypertension (HCC) Social History Tobacco Use Smoking status: Former Packs/day: 2.00 Types: Cigarettes Quit date: 1996 Years since quittin.5 Smokeless tobacco: Not on file Substance Use Topics Alcohol use: Never Past Surgical History: Procedure Laterality Date COLONOSCOPY N/A 05/25/2023 Performed by Samantha Nava MD at [facility] [address] [facility] END[facility]COPY Family History Problem Relation [...] >20.0 05/04/2023 Lab Results Component Value Date [id number] 05/04/2023 No results found for: RPR Imaging: head CT reviewed Testing: I reviewed the Jewell CognitiveAssessment from the initial assessment with the [...] for the patient documented in this encounter [facility] 05-17-2023 Instructions FILEMON Shepherd CNP - [...] social activity - [facility]. Recommend routines, schedules, and organization. Recommend getting [...] for virtual visit. documented in this encounter [facility] 04-11-2023 Miscellaneous Notes TC to patients daughter with no answer. Left VM to return call to office to receive update. JUSTINE Gupta Please reach out to patient's daughter. Let her know we refilled Robbin's Gooding, however, she No Showed to her appt [...] you. JUSTINE Gupta documented in this encounter [facility] 04-11-2023 History of Present illness Narrative [...] Patient has dementia and is daughter is farm or ranch animal caretaker. She noticed feces inside her vagina. She [...] Take 600 mg by mouth daily. HYDROcodone-acetaminophen (Gooding) 5-325 MG tablet Take 1 tablet by [...] tablet Take 1 tablet by mouth daily. Odessa-3 Fatty Acids (FISH OIL OMEGA-3 PO) Take [...] judgement RECTUM: deferred Exam chaperoned by female pharmacy technician assistant. IMAGING: Per chart rveiew She underwent a CT scan at [facility] on 12/31/2022 with findings of mid [...] was performed when available. Samantha Nava MD [facility] Colorectal Surgery [address], [address] [place] [address] p [phone] f [phone] documented in this encounter [facility] 04-05-2023 Note Mrs. Singh was see [...] in 4-6 weeks for summary visit. [facility] 04-05-2023 History of Present illness Narrative Images from the original note were not included. [facility] [address] [place] [address] Dept: [phone] Dept Loc: [phone] Visit type: [facility] Initial Assessment Visit Date: [...] 82 y.o. female who presents to the [facility] for a comprehensive geriatric assessment. The patient is new to me. Referred for dementia, having nightmares, on Donepezil at , previously diagnosed with dementia. Family helping with pt's care. PMH: anxiety, depression, OA multiple joints, leg edema, CHF, CKD 3, COPD, DDD cervical and lumbar, DM2, HTN, KNIK, frequent falls, interstitial cystitis, urinary incontinence, neuropathy, [...] identify : yes Current events: Current President? Eugenio Why [...] Take 600 mg by mouth daily. HYDROcodone-acetaminophen (Gooding) 5-325 MG tablet Take 1 tablet by [...] tablet Take 1 tablet by mouth daily. Odessa-3 Fatty Acids (FISH OIL OMEGA-3 PO) Take [...] Normocephalic. Comments: No glasses. No hearing aids. KNIK at times. Right Ear: External ear normal. [...] found for: FOLATE No results found for: [id number] No results found for: RPR Testing: The following tests were performed at today's visit and scanned in to the chart: MoCA score: 19, MIS score: 2 Clock drawing score: 5 PHQ-9 score: 1 SIN score: not done I independently reviewed the Jewell Cognitive Assessment from 04/11/2023. 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 Activities: nephew and great granddaughter come to visit once per week, watches tv Exercise: none Finances: close to $2000 in income Healthcare Power of Brake Linings Coater: No Financial Power of Brake Linings Coater: No Living Will: No Guardian: No Code Status: Full Code Primary Caregiver: daughter Mariela Current care plan/supervision: can leave her for [...] Diet Healthy Nutrition for Older Adults - [facility] Injury Prevention/Home Safety [facility] Home Safety Checklist Hearing/Vision Hearing Loss and Older Adults Medications Medication Safety/Dispensers Sleep Getting a Good Night's Sleep ([facility]) Sleep Hygiene Day/Night Reversal Advanced Directives Healthcare Power of Brake Linings Coater Living Will Recommend Financial Power of Brake Linings Coater Elder Law Brake Linings Coater List [facility] Advanced Directives Information Guide Personal Care Personal Care Tips Bathing Tips Dressing Tips documented in this encounter [facility] 04-05-2023 Instructions FILEMON Shepherd CNP - [...] for summary visit. documented in this encounter [facility] 04-01-2023 Note HNO ID: [id number] Author: Leno Briggs MD Service: ? Author Type: Physician Type: Progress Notes Filed: 04/04/2023 1:02 PM Note Text: Appt cancelled since patient actually needed seen in office for a routine. [facility] 04-01-2023 History of Present illness Narrative Appt cancelled since patient actually needed seen in office for a routine. documented in this encounter [facility] 03-16-2023 Miscellaneous Notes Patient phones requesting refills as follows: Requested Prescriptions Pending Prescriptions Disp Refills metFORMIN ER (GLUCOPHAGE XR) 500 mg 24 hr tablet 180 tablet 1 Sig: Take 2 tablets by mouth daily with dinner. TAVO 12/23/2022 NOV 04/01/2023 Please review and advise. Atiya Deluna LPN documented in this encounter [facility] 03-11-2023 Miscellaneous Notes Faxed. Antionette Coleman MA Order printed and signed and ready to fax Ok to refer? Cristina Garcia Ma documented in this encounter [facility] 03-09-2023 Miscellaneous Notes The following approved [...] Shelby Rogel LPN documented in this encounter [facility] 03-09-2023 Miscellaneous Notes The following approved [...] sent to Gian Hines. Pharm updated in [facility]. Cynthia Shirley LPN LM for patient to [...] would help her sleep. Contact patient at [phone]. Joanne Rogel Pss documented in this encounter [facility] 02-21-2023 Note HNO ID: [id number] Author: Radha Baldwin APRN.COSTUME DRAPER Service: ? Author Type: Nurse Practitioner Type: Progress Notes Filed: 02/22/2023 12:47 PM Note Text: [facility] ([facility]) [address] [facility] [id number] OUTPATIENT VISIT February 21, 2023 2:00 PM [...] stage 3, GFR 30-59 ml/min ([facility]) 01/01/2019 COPD with chronic bronchitis ([facility]) 02/15/2017 Dr. Brito Current use of proton pump inhibitor 11/25/2016 Mg checked 11/2017 DDD (degenerative disc disease), cervical 07/29/2015 DDD (degenerative disc disease), lumbar 05/08/2013 Diabetes mellitus type 2 in obese ([facility]) 06/2015 a1c 6.5% Diabetic eye exam ([facility]) 03/15/2017 Last done: 10/24/2019 No Retinopathy [...] TACO (obstructive sleep apnea) [facility] [phone] Pain due to total left knee replacement (HCC) 06/08/2018 Personal history of colonic polyps 01/23/2016 Primary insomnia 03/16/2017 Brain ridgely 06/26/2018 recommended Klonopin every other day for a week and then just as needed. Primary osteoarthritis of right knee 07/13/2016 Pulmonary hypertension (HCC) 05/19/2022 Seeing pulm and cardio Pulmonary nodules 03/03/2013 Incidental non-calcified nodules 10/09/2012. Repeat CT due 06/2013 Recurrent major depressive disorder, in full remission ([facility]) 08/17/2012 Rheumatoid arthritis(714.0) Spondylosis of lumbar region without myelopathy or radiculopathy 05/28/2015 Status post total left knee replacement 06/08/2018 Stress incontinence 11/21/[address] Armas. Thyroid nodule 11/15/2018 Stable on US 2017 Type 2 diabetes mellitus with stage 3 chronic kidney disease, without long-term current use of insulin ([facility]) 06/06/2017 Urge incontinence 11/21/2012 PAST SURGICAL [...] CYSTOSCOPY 09/21/12 EGD 10/17/2011 Dr Negrete in [place] ESOPHAGOGASTRODUODENOSCOPY TRANSORAL DIAGNOS (more content not included)... [facility] 02-18-2023 Instructions Lauren Gruber RN - [...] If you do not have a responsible clamp truck driver (family member or friend) with you [...] exam. 2 10/2019 documented in this encounter [facility] 02-14-2023 Miscellaneous Notes Patient has been [...] to [facility] documented in this encounter [facility] 02-14-2023 Miscellaneous Notes The following approved [...] Last refill; 01/2023 documented in this encounter [facility] 02-11-2023 Miscellaneous Notes This patient gave [...] seven days of my reply. See the [employer] message reply for my assessment and plan. I spent a total of 5 minutes reviewing the patient's prior medical records and current request for medical advice, prescribing medications or ordering tests (if applicable), replying to the patient, and documenting the encounter. Eufemia Chapa APRN.CARINE documented in this encounter [facility] 02-10-2023 Miscellaneous Notes TAVO 12/23/22 with RR Appointment scheduled 03/11/23 with JAX Please advise. Thank you. MODESTO Gupta documented in this encounter [facility] 02-09-2023 History and physical note COLORECTAL SURGERY NEW VIRTUAL VISIT I have communicated my name and active licensure. The patient's identity and physical location were verified at the time of this visit. Either the patient or their legal traveling representative has been informed of the risks [...] Patient has dementia and is daughter is farm or ranch animal caretaker. She noticed feces inside her vagina. She [...] thinks this is mostly incontinence of urine. Outpatient Receptionist History PAST MEDICAL HISTORY Diagnosis Date Anxiety [...] stage 3, GFR 30-59 ml/min ([facility]) 01/01/2019 COPD with chronic bronchitis ([facility]) 02/15/2017 Dr. Brito Current use of proton pump inhibitor 11/25/2016 Mg checked 11/2017 DDD (degenerative disc disease), cervical 07/29/2015 DDD (degenerative disc disease), lumbar 05/08/2013 Diabetes mellitus type 2 in obese ([facility]) 06/2015 a1c 6.5% Diabetic eye exam ([facility]) 03/15/2017 Last done: 10/24/2019 No Retinopathy [...] TACO (obstructive sleep apnea) DME [facility] [phone] Pain due to total left knee replacement (HCC) 06/08/2018 Personal history of colonic polyps 01/23/2016 Primary insomnia 03/16/2017 [facility] 06/26/2018 recommended Klonopin every other day for a week and then just as needed. Primary osteoarthritis of right knee 07/13/2016 Pulmonary hypertension (HCC) 05/19/2022 Seeing pulm and cardio Pulmonary nodules 03/03/2013 Incidental non-calcified nodules 10/09/2012. Repeat CT due 06/2013 Recurrent major depressive disorder, in full remission ([facility]) 08/17/2012 Rheumatoid arthritis(714.0) Spondylosis of lumbar region without myelopathy or radiculopathy 05/28/2015 Status post total left knee replacement 06/08/2018 Stress incontinence 11/21/[address] Armas. Thyroid nodule 11/15/2018 Stable on 2017 Type 2 diabetes mellitus with stage 3 chronic kidney disease, without long-term current use of insulin ([facility]) 06/06/2017 Urge incontinence 11/21/2012 PAST SURGICAL [...] CYSTOSCOPY 09/21/12 EGD 10/17/2011 Dr Negrete in [place] ESOPHAGOGASTRODUODENOSCOPY TRANSORAL DIAGNOSTIC 05/16/2014 EGD ESOPHAGOGASTRODUODENOSCOPY TRANSORAL [...] No) 1 Kit 0 Walker (ULTRA-LIGHT ROLLATOR) [facility] One Rolator with seat. Dx: J44.9, M54.9, [...] No history of dysuria, frequency or incontinence SHEET ROCK APPLICATOR: stool per vagina per HPI MUSCULOSKELETAL: Negative [...] which included preparing to see the patient, [id number] patient care, completing clinical documentation, obtaining and/or reviewing separately obtained history, performing a medically appropriate examination, counseling and educating the patient/family/caregiver, ordering medications, tests, or procedures, communicating with other HCPs (not separately reported), independently interpreting results (not separately reported), communicating results to the patient/family/caregiver, and care coordination (not separately reported). documented in this encounter [facility] 02-03-2023 Miscellaneous Notes Patient phones requesting refills as follows: Patient comment: Is it possible to have this sent to [facility] in [place], for maybe a2-week supply, and the normal 90-day refill to [facility]? I thought this was on auto-delivery through them but they haven't sent it Requested Prescriptions Pending Prescriptions Disp Refills losartan (COZAAR) 50 mg tablet 90 tablet 1 Sig: Take 1 tablet by mouth once daily. TAVO-12/23/22 Labs-11/04/22 NOV-03/11/23 Med filled 06/14/22 Please review and advise. Brianne Chiang LPN documented in this encounter [facility] 01-31-2023 Miscellaneous Notes [facility] Rx sent by PCP on 01/30 Charity Das APRN.CNP documented in this encounter [facility] 01-28-2023 Miscellaneous Notes This patient gave [...] seven days of my reply. See the [employer] message reply for my assessment and plan. I spent a total of 5 minutes reviewing the patient's prior medical records and current request for medical advice, prescribing medications or ordering tests (if applicable), replying to the patient, and documenting the encounter. Eufemia Chapa APRN.CARINE documented in this encounter [facility] 01-26-2023 Miscellaneous Notes Please see TEL ENC for today regarding RN's call to pt to schedule nurse visit for urine specimen collection. Jason Mcfadden RN Discussed with Eufemia Chapa DNP. Recommend nurse visit for straight cath urine specimen. Patient has colovesical fistula and clean catch is not recommended. Eloisa Ferrara APRN.CNP documented in this encounter [facility] 01-26-2023 Miscellaneous Notes RN's call to pt to schedule office visit for urine specimen collection went to [facility]. RN left message requesting return call from pt to schedule nurse visit. Call terminated. documented in this encounter [facility] 01-25-2023 Note HNO ID: [id number] Author: Leesa Ramirez MD Service: ? Author Type: Physician Type: Progress Notes Filed: 01/25/2023 3:26 PM Note Text: Robbin Singh 1940 REFERRING PHYSICIAN: Eufemia Chapa APRN.CNP CHIEF COMPLAINT: Consult (Colovesical fistula) HPI: The patient is a 82 year old female presents with colovesical fistula. She has noted symptoms for about two months. She underwent a CT scan at [facility] on 12/31/2022 with findings of mid sigmoid diverticulitis with probable fistula to the adjacent urinary bladder. Associated colonic wall thickening and adjacent stranding noted. There is under distension of the urinary bladder with significant wall edema and adjacent inflammatory change. Patient had been scheduled for an appointment at [facility] in [place], but the family deferred this and preferred to be seen in [place]. The patient had also been scheduled for [...] stage 3, GFR 30-59 ml/min ([facility]) 01/01/2019 COPD with chronic bronchitis ([facility]) 02/15/2017 Dr. Brito Current use of proton pump inhibitor 11/25/2016 Mg checked 11/2017 DDD (degenerative disc disease), cervical 07/29/2015 DDD (degenerative disc disease), lumbar 05/08/2013 Diabetes mellitus type 2 in obese ([facility]) 06/2015 a1c 6.5% Diabetic eye exam ([facility]) 03/15/2017 Last done: 10/24/2019 No Retinopathy [...] TACO (obstructive sleep apnea) [facility] f[facility] [phone] Pain due to total left knee replacement ([facility]) 06/08/2018 Personal history of colonic polyps 01/23/2016 Primary insomnia 03/16/2017 Brain center 06/26/2018 recommended Klonopin every other day for a week and then just as needed. Primary osteoarthritis of right knee 07/13/2016 Pulmonary hypertension ([facility]) 05/19/2022 Seeing pulm and cardio Pulmonary nodules 03/03/2013 Incidental non-calcified nodules 10/09/2012. Repeat CT due 06/2013 Recurrent major depressive disorder, in full remission ([facility]) 08/17/2012 Rheumatoid arthritis(714.0) Spondylosis of lumbar region without myelopathy or radiculopathy 05/28/2015 Status post total left knee replacement 06/08/2018 Stress incontinence 11/21/[address] Armas. Thyroid nodule 11/15/2018 Stable on US 2017 Type 2 diabetes mellitus with stage 3 chronic kidney disease, without long-term current use of insulin ([facility]) 06/06/2017 Urge incontinence 11/21/2012 PAST SURGICAL [...] CYSTOSCOPY 09/21/12 EGD 10/17/2011 Dr Negrete in [place] ESOPHAGOGASTRODUODENOSCOPY TRANSORAL DIAGNOSTIC 05/16/2014 EGD ESOPHAGOGASTRODUODENOSCOPY TRANSORAL [...] mononitrate ER ( (more content not included)... [facility] 01-25-2023 History of Present illness Narrative Robbin Singh 1940 REFERRING PHYSICIAN: Eufemia Chapa APRN.COSTUME DRAPER CHIEF COMPLAINT: Consult (Colovesical fistula) HPI: The patient is a 82 year old female presents with colovesical fistula. She has noted symptoms for about two months. She underwent a CT scan at [facility] on 12/31/2022 with findings of mid sigmoid diverticulitis with probable fistula to the adjacent urinary bladder. Associated colonic wall thickening and adjacent stranding noted. There is under distension of the urinary bladder with significant wall edema and adjacent inflammatory change. Patient had been scheduled for an appointment at [facility] in [place], but the family deferred this and preferred to be seen in [place]. The patient had also been scheduled for [...] stage 3, GFR 30-59 ml/min ([facility]) 01/01/2019 COPD with chronic bronchitis ([facility]) 02/15/2017 Dr. Brito Current use of proton pump inhibitor 11/25/2016 Mg checked 11/2017 DDD (degenerative disc disease), cervical 07/29/2015 DDD (degenerative disc disease), lumbar 05/08/2013 Diabetes mellitus type 2 in obese ([facility]) 06/2015 a1c 6.5% Diabetic eye exam ([facility]) 03/15/2017 Last done: 10/24/2019 No Retinopathy [...] TACO (obstructive sleep apnea) [facility] [phone] Pain due to total left knee replacement [...] long-term current use of insulin ([facility]) 06/06/2017 Urge incontinence 11/21/2012 PAST SURGICAL [...] CYSTOSCOPY 09/21/12 EGD 10/17/2011 Dr Negrete in [place] ESOPHAGOGASTRODUODENOSCOPY TRANSORAL DIAGNOSTIC 05/16/2014 EGD ESOPHAGOGASTRODUODENOSCOPY TRANSORAL [...] entered by the nurse and reviewed by wy Nursing Notes: Beata Doshi RN 01/25/2023 1:26 [...] Leesa Ramirez MD documented in this encounter [facility] 01-25-2023 Nurse Note REVIEW OF SYSTEMS: [...] Beata Doshi RN documented in this encounter [facility] 01-19-2023 Miscellaneous Notes Patient has been [...] Shelby Rogel LPN documented in this encounter [facility] 01-18-2023 Miscellaneous Notes Unfortunately, she has to see colorectal. I know she was given a name for a colorectal surgeon in [place] so she can call that office to [...] Shelby Rogel LPN documented in this encounter [facility] 01-14-2023 Miscellaneous Notes Patient has been [...] 03/2023 Last refill: documented in this encounter [facility] 01-06-2023 Miscellaneous Notes Et patient or daughter know pain med refill sent to [facility] here is her Mychart note. Patient Comment: This was supposed to be back-ordered from [facility] because they were out of stock, so she got them from [facility], but it's time for another refill so [...] Shelby Rogel LPN documented in this encounter [facility] 01-06-2023 Note HNO ID: [id number] Author: Eufemia Chapa APRN.COSTUME DRAPER Service: ? Author Type: Nurse Practitioner Type: [...] was treated. Recently diagnosed with diverticulitis at [facility] ER visit 12/31/22. 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: Last Pap: Date:2012; Last Mammogram: Her [...] CYSTOSCOPY 09/21/12 EGD 10/17/2011 Dr Negrete in [place] ESOPHAGOGASTRODUODENOSCOPY TRANSORAL DIAGNOSTIC 05/16/2014 EGD ESOPHAGOGASTRODUODENOSCOPY TRANSORAL DIAGNOSTIC 09/12/14 EGD ESOPHAGOGASTRODUODENOSCOPY TRANSORAL DIAGNOSTIC 01/06/2017 EGD ESOPHAGOGASTRODUODENOSCOPY TRANSORAL DIAGNOSTIC 07/21/2020 EGD REMOVE CATARACT, INSERT LENS, INTRACAPSUL Bilateral 2008 PAST MEDICAL HISTORY Diagnosis Date Anxiety and depression 01/01/2019 Arthritis of shoulder region, degenerative right Corticosteroid 09/20/14, left corticosteroid 10/07/14 Arthritis, multiple joint involvement 01/16/2018 Advised tylenol Arthritis (more content not included)... [facility] 01-06-2023 Instructions Eufemia Chapa APRN.COSTUME DRAPER - 01/06/2023 2:02 PM EST Consult colorectal [...] and protect the skin. Avoid using a occupational therapy department chair to dry the vulvar area. Use cool gel packs on the vulva. documented in this encounter [facility] 01-06-2023 History of Present illness Narrative [...] was treated. Recently diagnosed with diverticulitis at [facility] ER visit 12/31/22. 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 Brito Current use of proton pump inhibitor 11/25/2016 Mg checked 11/2017 DDD (degenerative disc disease), cervical 07/29/2015 DDD (degenerative disc disease), lumbar 05/08/2013 Diabetes mellitus type 2 in obese ([facility]) 06/2015 a1c 6.5% Diabetic eye exam ([facility]) 03/15/2017 Last done: 10/24/2019 No Retinopathy [...] TACO (obstructive sleep apnea) [facility] [phone] Pain due to total left knee replacement (HCC) 06/08/2018 Personal history of colonic polyps 01/23/2016 Primary insomnia 03/16/2017 Brain [place] 06/26/2018 recommended Klonopin every other day for a week and then just as needed. Primary osteoarthritis of right knee 07/13/2016 Pulmonary hypertension (HCC) 05/19/2022 Seeing pulm and cardio Pulmonary nodules 03/03/2013 Incidental non-calcified nodules 10/09/2012. Repeat CT due 06/2013 Recurrent major depressive disorder, in full remission ([facility]) 08/17/2012 Rheumatoid arthritis(714.0) Spondylosis of lumbar region without myelopathy or radiculopathy 05/28/2015 Status post total left knee replacement 06/08/2018 Stress incontinence 11/21/[address] Armas. Thyroid nodule 11/15/2018 Stable on US 2017 Type 2 diabetes mellitus with stage 3 chronic kidney disease, without long-term current use of insulin ([facility]) 06/06/2017 Urge incontinence 11/21/2012 FAMILY HISTORY [...] rate Oxybutynin Other: See Comments suggerst by [facility] to stop since it can add to [...] PFSH and ROS obtained by others. Eufemia Chapa, FILEMON.COSTUME DRAPER Health Information Systems Technician offered: Patient accepts, visit chaperoned by Ovidio [...] Colovesical fistula - Per discharge instructions from [facility], a consult has been placed with [...] Eufemia Chapa APRN.CARINE documented in this encounter [facility] 01-01-2023 Note . MICRO - Microbiology [...] Locations *1: This test was performed at: [facility], [address] [place] [address], [id number] , [facility] ([place]) 12-29-2022 Miscellaneous Notes Patient's daughter notified. Sun Thompson RN Patient is positive for yeast. She has dementia and sister is farm or ranch animal caretaker. Please notify sister of positive results. Diflucan 150 mg PO x 2 doses called in to local pharmacy. She will need to take one dose this week and another dose in 1 week. Madalyn Degroot APRN.CNM documented in this encounter [facility] 12-28-2022 Note HNO ID: [id number] Author: Madalyn Degroot APRN.CNM Service: ? Author Type: Finish Mixer Type: Progress Notes Filed: 12/28/2022 11:13 AM Note Text: Robbin Singh is a 82 year old female who presents with daughter and sister for problem visit of vaginal burning. Patient referred by PCP due to having vaginal pain and burning sensation. She thought she had a urinary tract infection but urine culture returned negative. Patient has dementia and is daughter is farm or ranch animal caretaker. Last week patient became concerned because she noticed feces inside her vagina. She notices stool on toilet paper after wiping. Patient's sister concerned she may have anal fissures/fistula. She has a history of mixed incontinence and wears Depends. Denies any vaginal discharge, odor or itching. Outpatient Receptionist History LMP: Postmenopausal Age at Menarche: Age at First : Age at Menopause: Outpatient Receptionist History Comments: Sexual Activity: Never; No partner [...] stage 3, GFR 30-59 ml/min ([facility]) 01/01/2019 COPD with chronic bronchitis ([facility]) 02/15/2017 Dr. Brito Current use of proton pump inhibitor 11/25/2016 Mg checked 11/2017 DDD (degenerative disc disease), cervical 07/29/2015 DDD (degenerative disc disease), lumbar 05/08/2013 Diabetes mellitus type 2 in obese ([facility]) 06/2015 a1c 6.5% Diabetic eye exam ([facility]) 03/15/2017 Last done: 10/24/2019 No Retinopathy [...] TACO (obstructive sleep apnea) [facility] [phone] Pain due to total left knee replacement ([facility]) 06/08/2018 Personal history of colonic polyps 01/23/2016 Primary insomnia 03/16/2017 Brain center 06/26/2018 recommended Klonopin every other day for a week and then just as needed. Primary osteoarthritis of right knee 07/13/2016 Pulmonary hypertension (HCC) 05/19/2022 Seeing pulm and cardio Pulmonary nodules 03/03/2013 Incidental non-calcified nodules 10/09/2012. Repeat CT due 06/2013 Recurrent major depressive disorder, in full remission ([facility]) 08/17/2012 Rheumatoid arthritis(714.0) Spondylosis of lumbar [...] CYSTOSCOPY 09/21/12 EGD 10/17/2011 Dr Negrete in [place] ESOPHAGOGASTRODUODENOSCOPY TRANSORAL DIAGNOSTIC 05/16/2014 EGD ESOPHAGOGASTRODUODENOSCOPY TRANSORAL [...] Former Packs/day: 3.0 (more content not included)... [facility] 12-27-2022 Miscellaneous Notes Urine culture was negative. See [employer] message. documented in this encounter [facility] 12-24-2022 Miscellaneous Notes Spoke to pt's [...] the culture results. documented in this encounter [facility] 12-23-2022 Note HNO ID: [id number] Author: Stephani Crooks PA-C Service: ? Author Type: Physician Cable Splicer Apprentice Type: Progress Notes Filed: 12/23/2022 2:24 PM [...] mellitus type 2 in obese ([facility]) 06/2015 a1c 6.5% Diabetic eye exam ([facility]) 03/15/2017 Last done: 10/24/2019 No Retinopathy [...] TACO (obstructive sleep apnea) [facility] [employer] [phone] Pain due to total left knee replacement ([facility]) 06/08/2018 Personal history of colonic polyps 01/23/2016 Primary insomnia 03/16/2017 Brain center 06/26/2018 recommended Klonopin every other day for a week and then just as needed. Primary osteoarthritis of right knee 07/13/2016 Pulmonary hypertension ([facility]) 05/19/2022 Seeing pulm and cardio Pulmonary nodules 03/03/2013 Incidental non-calcified nodules 10/09/2012. Repeat CT due 06/2013 Recurrent major depressive disorder, in full remission ([facility]) 08/17/2012 Rheumatoid arthritis(714.0) Spondylosis of lumbar region without myelopathy or radiculopathy 05/28/2015 Status post total left knee replacement 06/08/2018 Stress incontinence 11/21/[address] Armas. Thyroid nodule 11/15/2018 Stable on 2017 Type 2 diabetes mellitus with stage 3 chronic kidney disease, without long-term current use of insulin ([facility]) 06/06/2017 Urge incontinence 11/21/2012 Previous Surgical [...] CYSTOSCOPY 09/21/12 EGD 10/17/2011 Dr Negrete in [place] ESOPHAGOGASTRODUODENOSCOPY TRANSORAL DIAGNOSTIC 05/16/2014 EGD ESOPHAGOGASTRODUODENOSCOPY TRANSORAL DIAGNOSTIC 09/12/14 EGD ESOPHAGOGASTRODUODENOSCOPY TRANSORAL DIAGNOSTIC 01/06/2017 EGD ESOPHAGOGASTRODUODENOSCOPY TRANSORAL DIAGNOSTIC 07/21/2020 EGD REMOVE CATARACT, INSERT LENS, INTRACAPSUL Bilateral 2008 Family History FAMILY HISTORY Pr (more content not included)... [facility] 12-23-2022 History of Present illness Narrative [...] Arthritis of shoulder region, degenerative right Corticosteroid 11/14/14, left corticosteroid 10/07/14 Arthritis, multiple joint involvement [...] stage 3, GFR 30-59 ml/min ([facility]) 01/01/2019 COPD with chronic bronchitis ([facility]) 02/15/2017 Dr. Brito Current use of proton pump inhibitor 11/25/2016 Mg checked 11/2017 DDD (degenerative disc disease), cervical 07/29/2015 DDD (degenerative disc disease), lumbar 05/08/2013 Diabetes mellitus type 2 in obese ([facility]) 06/2015 a1c 6.5% Diabetic eye exam ([facility]) 03/15/2017 Last done: 10/24/2019 No Retinopathy [...] TACO (obstructive sleep apnea) [facility] [phone] Pain due to total left knee replacement [...] depressive disorder, in full remission ([facility]) 08/17/2012 Rheumatoid arthritis(714.0) Spondylosis of lumbar region without myelopathy or radiculopathy 05/28/2015 Status post total left knee replacement 06/08/2018 Stress incontinence 11/21/[address] Armas. Thyroid nodule 11/15/2018 Stable on 2017 Type 2 diabetes mellitus with stage 3 chronic kidney disease, without long-term current use of insulin ([facility]) 06/06/2017 Urge incontinence 11/21/2012 Previous Surgical [...] CYSTOSCOPY 09/21/12 EGD 10/17/2011 Dr Negrete in [place] ESOPHAGOGASTRODUODENOSCOPY TRANSORAL DIAGNOSTIC 05/16/2014 EGD ESOPHAGOGASTRODUODENOSCOPY TRANSORAL [...] rate Oxybutynin Other: See Comments suggerst by [facility] to stop since it can add to [...] of breath (With Spacer). Walker (ULTRA-LIGHT ROLLATOR) [facility] One Rolator with seat. Dx: J44.9, M54.9, [...] patient's family that they can go to [facility] and request virtual visit. - CONSULT TO GERIATRICS 2. Dysuria - ICD9: 788.1, ICD10: R30.0 acute Patient to get UA and Culture completed. - URINALYSIS, WITH MICROSCOPIC - URINE CULTURE - CONSULT TO GERIATRICS 3. Dementia with mood disturbance, unspecified dementia severity, unspecified dementia type - ICD9: 294.21, ICD10: F03.93 See #1. Stephani Crooks PA-C documented in this encounter [facility] 12-16-2022 Miscellaneous Notes Daughter Mariela notified of response. Appt was scheduled 12/22/22 with IRAIDA Crooks, Mariela requested appt sometime next week. Huong [...] Shelby Rogel LPN documented in this encounter [facility] 12-13-2022 Miscellaneous Notes Last office visit: 11/04/22 F/u scheduled: 03/11/23 Cristina Garcia Ma documented in this encounter [facility] 12-07-2022 Miscellaneous Notes The following approved medication requests have been transmitted electronically. Requested Prescriptions Signed Prescriptions Disp Refills HYDROcodone-acetaminophen (NORCO) 5-325 mg per tablet 60 tablet 0 Sig: Take 1 tablet by mouth twice daily as needed for up to 30 days. Authorizing Provider: STEPHANI CROOKS PA-C Patient requests via [facility] [employer] refills as follows: Requested Prescriptions Pending Prescriptions Disp Refills HYDROcodone-acetaminophen (NORCO) 5-325 mg per tablet 60 tablet 0 Sig: Take 1 tablet by mouth twice daily as needed for up to 30 days. pioglitazone (ACTOS) 15 mg tablet 90 tablet 5 Sig: Take 1 tablet by mouth once daily. TAVO: 11/04/22 NOV: 03/11/23 Last Refill: [facility]: 11/09/22 #60 0 refills Actos: 11/19/22 #90 5 refills.Not due for refill yet Huong Payan LPN documented in this encounter [facility] 12-02-2022 Miscellaneous Notes The following approved medication requests have been transmitted electronically. Requested Prescriptions Signed Prescriptions Disp Refills furosemide (LASIX) 20 mg tablet 180 tablet 1 Sig: Take 1 tablet by mouth twice daily. Authorizing Provider: STEPHANI CROOKS PA-C Patient phones requesting refills as follows: Pt needs the nursing home RX sent in. See below Requested Prescriptions Pending Prescriptions Disp Refills furosemide (LASIX) 20 mg tablet 180 tablet 1 Sig: Take 1 tablet by mouth twice daily. Please review and advise. Brianne Chiang LPN I'm not sure what they need? Does she need a new short term prescription to be sent or the mail order refilled. Stephani Crooks PA-C Please see [employer] message documented in this encounter [facility] 11-19-2022 Miscellaneous Notes Patient has been [...] Last refill: 08/2022 documented in this encounter [facility] 11-19-2022 Miscellaneous Notes Patient has been [...] go [facility] documented in this encounter [facility] 11-16-2022 Miscellaneous Notes Patient has been identified by name and date of : Yes, Patient phones for refill(s): Requested Prescriptions Pending Prescriptions Disp Refills donepezil (ARICEPT) 10 mg tablet 30 tablet 5 Sig: Take 1 tablet by mouth daily at bedtime. Date of last office visit in primary care: 11/04/22 Please advise. Thank you. Nel Cope LPN documented in this encounter [facility] documented in this encounter [facility]01-03-2023 Miscellaneous Notes* Telephone Encounter - Stephani [...] you. Nel Cope LPN [facility] Miscellaneous Notes* Telephone Encounter - Nel [...] you. Nel Cope LPN [facility] Miscellaneous Notes* Telephone Encounter - Michelle [...] a triage nurse to receive message. Evelyn Loa RN * Telephone Encounter - Stephani Crooks [...] dehydration. Stephani Crooks PA-C [facility] Instructions* Patient Instructions* Stephani Crooks PA-C - 11/04/2022 1:21 PM EST Stop prozac- restart zoloft. Decrease metformin to 1000mg at night. See if this helps with the nausea. Start actos for help on Diabetes management since we are decreasing metformin. Labs today. [facility] History of Present illness Narrative* Stephani [...] stage 3, GFR 30-59 ml/min ([facility]) 01/01/2019 COPD with chronic bronchitis ([facility]) 02/15/2017 Dr. Brito Current use of proton pump inhibitor 11/25/2016 Mg checked 11/2017 DDD (degenerative disc disease), cervical 07/29/2015 DDD (degenerative disc disease), lumbar 05/08/2013 Diabetes mellitus type 2 in obese ([facility]) 06/2015 a1c 6.5% Diabetic eye exam ([facility]) 03/15/2017 Last done: 10/24/2019 No Retinopathy [...] TACO (obstructive sleep apnea) [facility] [phone] Pain due to total left knee replacement [...] depressive disorder, in full remission ([facility]) 08/17/2012 Rheumatoid arthritis(714.0) Spondylosis of lumbar region without myelopathy or radiculopathy 05/28/2015 Status post total left knee replacement 06/08/2018 Stress incontinence 11/21/[address] Armas. Thyroid nodule 11/15/2018 Stable on US 2017 Type 2 diabetes mellitus with stage 3 chronic kidney disease, without long-term current use of insulin ([facility]) 06/06/2017 Urge incontinence 11/21/2012 Previous Surgical [...] CYSTOSCOPY 09/21/12 EGD 10/17/2011 Dr Negrete in [place] ESOPHAGOGASTRODUODENOSCOPY TRANSORAL DIAGNOSTIC 05/16/2014 EGD ESOPHAGOGASTRODUODENOSCOPY TRANSORAL [...] rate Oxybutynin Other: See Comments suggerst by [facility] to stop since it can add to [...] stage 3a or 3b CKD ([facility] [facility]) - ICD9: 585.3, ICD10: N18.30 Await labs 6. GERD without esophagitis - ICD9: 530.81, ICD10: K21.9 stable 7. MCI (mild cognitive impairment) - ICD9: 331.83, ICD10: G31.84 stable 8. Recurrent major depressive disorder, in full remission ([facility]) - ICD9: 296.36, ICD10: F33.42 Will stop prozac and return to zoloft per family request 9. Obesity, Class III, BMI 40-49.9 (morbid obesity) ([facility]) - ICD9: 278.01, ICD10: E66.01 Weight decreasing - Behavioral intervention Stephani Crooks PA-C documented in this encounterC[facility]12-08-2022 Miscellaneous Notes* Telephone Encounter - Julia Bradley RN - 10/14/2022 10:55 AM EST Opened In Error documented in this encounterCleveland Clinic [facility]11-09-2022 Miscellaneous Notes* Telephone Encounter - Antionette Coleman MA - 09/15/2022 8:15 AM EST Medication attached to another phone encounter. Antionette Coleman MA documented in this [facility]11-09-2022 Miscellaneous Notes* Telephone Encounter - Antionette [...] 09/2022 Last refill: 06/2022 documented in this encounterC[facility]11-01-2022 Miscellaneous Notes* Telephone Encounter - Leno [...] you. Nel Cope LPN documented in this encounterCleveland Clinic [facility]10-21-2022 Miscellaneous Notes* Telephone Encounter - Leno [...] advise. Brianne Chiang LPN documented in this encounterCleveland Clinic [facility]09-28-2022 Miscellaneous Notes* Telephone Encounter - Stephani [...] 09/2022 Last refill: 07/04/2022 documented in this encounterCleveland Clinic [facility]09-20-2022 Miscellaneous Notes* Telephone Encounter - Antionette [...] help with ADL's ie. Bathing, grooming, mobility. [facility] [employer] ph. [phone] also will assess if patient are eligible for Medicaid as that is a requirement for Passport program. Sw looked back through notes and does not see any mention in regards to previous Passport referral or notes in regards to patient already having Passport services. Passport usually helps with home safety modifications, home connect lpn, home delivered meals, medical alert button costs if eligible. If patient would be open to Sw referring, [facility] would do the in home assessment to seeif eligible. * Telephone Encounter - Antionette Coleman MA - 07/16/2022 10:00 AM EDT How do we find out if that patient is eligible for Passport? Antionette Coleman MA * Telephone Encounter - ZULEMA Salazar - 07/15/2022 1:54 PM EDT Yi has had patient's purchase motorized scooters from [employer] [facility] [employer] [facility] in [place]. [facility] ph.[phone] or fax#[phone]. I have not found insurance to be covering the cost of scooters unless they may be eligible for Passport-[facility] on [employer] program. * Telephone Encounter - Antionette Coleman MA - 07/15/2022 11:56 AM EDT Motorized scooter. Thank you. Antioentte Coleman MA * Telephone Encounter - ZULEMA [...] anyone. I told patient I would ask Information Resources Manager if she had any other ideas on places for motorized scooters for insurance. If not we have to wait on [facility]. Antionette Coleman MA * Telephone Encounter - Antionette Coleman MA - 07/07/2022 11:20 AM EDT Tried calling [employer] and they do not have motorized scooters. Antionette Coleman MA * Telephone Encounter - Cynthia Shirley LPN - 07/06/2022 10:06 AM EDT Received fax from [facility] that wheelchair that was ordered for pt is on backorder and they are unable to obtain. Advised pt of same and she will check and see if there is anywhere else her insurance will approve of that office can fax order to to see if they can get wheelchair for pt. She will callback with information. Cynthia Shirley LPN documented in this encounterCleveland Clinic [facility]09-19-2022 Miscellaneous Notes* Telephone Encounter - Joy Hicks Ma - 07/26/2022 10:51 AM EDT Please see pt daughter message. Joy Hicks Ma documented in this encounterCleveland Clinic [facility]08-30-2022 Miscellaneous Notes* Telephone Encounter - Cynthia Shirley LPN - 07/06/2022 11:18 AM EDT Left message of same on daughter, Mariela's identified vm. Cynthia Shirley LPN * Telephone Encounter - Leno Briggs MD - 07/06/2022 11:06 AM EDT Let daughter know electrolyte panel was ok. documented in this encounterCleveland Clinic [facility]08-30-2022 Miscellaneous Notes* Telephone Encounter - Cynthia Shirley [...] OTC. Stephani Crooks PA-C documented in this encounterCleveland Clinic [facility]08-29-2022 History of Present illness Narrative* Leno Briggs MD - 07/05/2022 3:20 PM EDT Chief Complaint Patient presents with: Follow Up: HPI Robbin iSngh is a 81 year old female who presents here today for 4 week follow up on Depression/HTN/Edema and Medication. Patient indicated that she contacted insurance and they will approve a scooter for patient if recommended by her PCP. They will pay for 80-90% and can be faxed to [facility] [phone]. Patient here with her daughter today. Patient has recently been released for [facility] services due to meeting goals. At [...] in the next few months. Taking the Gooding twice a day does help her knee [...] stage 3, GFR 30-59 ml/min ([facility]) 01/01/2019 COPD with chronic bronchitis (HCC) 02/15/2017 Dr. Brito Current use of proton pump inhibitor 11/25/2016 Mg checked 11/2017 DDD (degenerative disc disease), cervical 07/29/2015 DDD (degenerative disc disease), lumbar 05/08/2013 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) 06/2015 a1c 6.5% Diabetic eye exam ([facility]) 03/15/2017 Last done: 10/24/2019 No Retinopathy [...] TACO (obstructive sleep apnea) DME [facility] fx [phone] Pain due to total left knee replacement [...] depressive disorder, in full remission ([facility]) 08/17/2012 Rheumatoid arthritis(714.0) Spondylosis of lumbar region without myelopathy or radiculopathy 05/28/2015 Status post total left knee replacement 06/08/2018 Stress incontinence 11/21/[address] Armas. Thyroid nodule 11/15/2018 Stable on 2017 Type 2 diabetes mellitus with stage 3 chronic kidney disease, without long-term current use of insulin ([facility]) 06/06/2017 Urge incontinence 11/21/2012 Previous Surgical [...] CYSTOSCOPY 09/21/12 EGD 10/17/2011 Dr Negrete in [place] ESOPHAGOGASTRODUODENOSCOPY TRANSORAL DIAGNOSTIC 05/16/2014 EGD ESOPHAGOGASTRODUODENOSCOPY TRANSORAL [...] rate Oxybutynin Other: See Comments suggerst by [facility] to stop since it can add to [...] sensor every two weeks. Last A1c 9.8,Dx 11. no insulin. Is to check insulin fasting [...] DX E11.22 Insulin No Walker (ULTRA-LIGHT ROLLATOR) [facility] One Rolator with seat. Dx: J44.9, M54.9, [...] ICD9: 338.4, ICD10: G89.4 - stable with Gooding 4. Bilateral leg edema - ICD9: 782.3, [...] 09/24/2022 Leno Briggs MD documented in this encounterCleveland Clinic [facility]08-28-2022 Miscellaneous Notes* Telephone Encounter - Leno [...] message. Cynthia Shirley LPN documented in this encounterCleveland Clinic [facility]08-23-2022 Miscellaneous Notes* Telephone Encounter - Leno [...] 07/05/22 Cynthia Shirley LPN documented in this encounterCleveland Clinic [facility]08-22-2022 Miscellaneous Notes* Telephone Encounter - Leno [...] daily. Leno Briggs MD documented in this encounterCleveland Clinic [facility]08-08-2022 Miscellaneous Notes* Telephone Encounter - yCnthia Shirley LPN - 06/14/2022 2:28 PM EDT Left message of same on pt's vm. Cynthia Shirley LPN * Telephone Encounter - Stephani Crooks PA-C - 06/14/2022 1:42 PM EDT This was sent on 06/01. Stephani Crooks PA-C * Telephone Encounter - Cristina Garcia Ma - 06/14/2022 12:43 PM EDT Last office visit: 05/24/22 F/u scheduled: 07/05/22 Last refilled on: Gooding #60 on 06/01/22 Cristina Garcia Ma documented in this encounterCleveland Clinic [facility]08-08-2022 Miscellaneous Notes* Telephone Encounter - Cristina Garcia Ma - 06/14/2022 12:40 PM EDT Last office visit: 05/24/22 F/u scheduled: 07/05/22 Cristina Garcia Ma documented in this encounterCleveland Clinic [facility]08-07-2022 History of Present illness Narrative* Leno Briggs MD - 06/13/2022 1:15 PM EDT Patient's home health 485 form / care plan for certification period 05/21/2022 to 07/19/2022 reviewedand signed. Relevant medical records were reviewed. Changes were communicated to home health agency documented in this encounterCleveland Clinic [facility]08-03-2022 Miscellaneous Notes* Telephone Encounter - Cristina Garcia Ma - 06/09/2022 12:08 PM EDT Janey notified and voiced understanding. Cristina Garcia Ma * Telephone Encounter - Leno Briggs MD - 06/09/2022 12:02 PM EDT Ok to give verbal ok for delay in care. * Telephone Encounter - Leesa Oro RN - 06/08/2022 4:22 PM EDT Janey- SW- [facility]- reports she is to see patient bi-weekly, but patient is a little overwhelmed right now, and asked SW to come next week. SW asking for verbal approval for delay of care. Please phone Janey with verbal. documented in this encounterCleveland Clinic [facility]07-28-2022 Miscellaneous Notes* Telephone Encounter - Cristina Garcia Ma - 06/03/2022 1:25 PM EDT Addressed in [employer] message. Cristina Garcia Ma * Telephone Encounter - Cristina Garcia Ma - 06/03/2022 1:12 PM EDT Awaiting response from pt on if she has received her 90 day supply from Mail order pharmacy yet? Cristina Garcia Ma documented in this encounterCleveland Clinic [facility]07-28-2022 Miscellaneous Notes* Telephone Encounter - Antionette Coleman [...] for functional mobility training. documented in this encounterCleveland Clinic [facility]07-26-2022 Miscellaneous Notes* Telephone Encounter - Octavio [...] patient. Irene Hardin Ma documented in this encounterCleveland Clinic [facility]07-21-2022 Miscellaneous Notes* Telephone Encounter - Cynthia Shirley LPN - 05/27/2022 11:49 AM EDT Orders faxed as requested to [facility] [phone]. Cyntiha Shirley LPN * Telephone Encounter - Stephani Crooks PA-C - 05/27/2022 11:32 AM EDT ready * Telephone Encounter - Brandy Hill Ma - 05/27/2022 11:15 AM EDT Patient has Medicare which handles there own PA if they do not approve diabetic supplies. Please print rx and will need to fax to [facility] Brandy Hill Ma * Telephone Encounter - Lauren Coreas Pss - 05/27/2022 11:01 AM EDT Gail called back in today after speaking with insurance company last night. She was told the officewould have to call [facility] at [phone]. If it is sent there, then it [...] sugars. * Telephone Encounter - Yu Champagne [facility] - 05/26/2022 3:25 PM EDT Gail Larose sister was her last week at appointment with the patient and forgot to mention asking for the Libra2 for the patient. She states that the patient is forget the concept of how to take her blood sugars and her daughter Marieal is currently with the patient but shakes so bad that she is poking the patient. 4-5 times to get a reading. Gail did call insurance and they will only approve if patient is on insulin 3 times a day or if PCP would write a formulary exception letter. Please advise Gail. documented in this encounterCleveland Clinic [facility]07-20-2022 Miscellaneous Notes* Telephone Encounter - Shira Shell Cma - 05/26/2022 9:15 AM EDT Patient daughter notified and verbalized understanding Shira Shell Cma * Telephone Encounter - Stephani Crooks PA-C - 05/26/2022 9:00 AM EDT Repeat urine is better and culture negative. Stephani Crooks PA-C documented in this encounterCleveland Clinic [facility]07-20-2022 Miscellaneous Notes* Telephone Encounter - Leesa Oro RN - 05/26/2022 8:30 AM EDT Left detailed vm on identified vm with provider's message below. * Telephone Encounter - Leno Briggs MD - 05/25/2022 8:50 PM EDT Let [place] know I'm fine giving order for her to see her one more time. If she needs more visits letme know. * Telephone Encounter - Shelby Rogel LPN - 05/25/2022 3:46 PM EDT Shanta social work specialist with [facility] calling for verbal order to see pt one more time to follow up on referrals and community resources. Please advise Shanta. Shelby Rogel LPN documented in this encounterCleveland Clinic [facility]07-18-2022 History of Present illness Narrative* Leno [...] cancelled them. patient does not remember this. [facility] has been out to see her encluding SW, jail and will also include PHYSICAL THERAPY. There [...] stage 3, GFR 30-59 ml/min ([facility]) 01/01/2019 COPD with chronic bronchitis ([facility]) 02/15/2017 Dr. Brito Current use of proton pump inhibitor 11/25/2016 Mg checked 11/2017 DDD (degenerative disc disease), cervical 07/29/2015 DDD (degenerative disc disease), lumbar 05/08/2013 Diabetes mellitus type 2 in obese ([facility]) 06/2015 a1c 6.5% Diabetic eye exam ([facility]) 03/15/2017 Last done: 10/24/2019 No Retinopathy [...] TACO (obstructive sleep apnea) DME [facility] fx [phone] Pain due to total left knee replacement ([facility]) 06/08/2018 Personal history of colonic polyps 01/23/2016 Primary insomnia 03/16/2017 Brain center 06/26/2018 recommended Klonopin every other day for a week and then just as needed. Primary osteoarthritis of right knee 07/13/2016 Pulmonary hypertension ([facility]) 05/19/2022 Seeing pulm and cardio Pulmonary nodules 03/03/2013 Incidental non-calcified nodules 10/09/2012. Repeat CT due 06/2013 Recurrent major depressive disorder, in full remission ([facility]) 08/17/2012 Rheumatoid arthritis(714.0) Spondylosis of lumbar region without myelopathy or radiculopathy 05/28/2015 Status post total left knee replacement 06/08/2018 Stress incontinence 11/21/[address] Armas. Thyroid nodule 11/15/2018 Stable on US 2017 Type 2 diabetes mellitus with stage 3 chronic kidney disease, without long-term current use of insulin ([facility]) 06/06/2017 Urge incontinence 11/21/2012 Previous Surgical [...] CYSTOSCOPY 09/21/12 EGD 10/17/2011 Dr Negrete in [place] ESOPHAGOGASTRODUODENOSCOPY TRANSORAL DIAGNOSTIC 05/16/2014 EGD ESOPHAGOGASTRODUODENOSCOPY TRANSORAL [...] rate Oxybutynin Other: See Comments suggerst by [facility] to stop since it can add to [...] once daily. Lancet device to use with GeoGRAFI lancets DX E11.22 Insulin No albuterol ([facility]) [...] up to 30 days. Walker (ULTRA-LIGHT ROLLATOR) [facility] One Rolator with seat. Dx: J44.9, M54.9, [...] stage 3a or 3b CKD ([facility]) - ICD9: 250.40, 585.3, ICD10: E11.22, N18.30 (primary diagnosis) uncontrolled - Continue current medications - BP goal of <130/80 - LDL goal of <100 - Recently restarted on metformin and increased to two tabs twice a day. 2. Diabetes mellitus type 2 in obese ([facility]) - ICD9: 250.00, 278.00, ICD10: E11.69, E66.9 - As per #1 3. Diabetic eye exam ([facility]) - ICD9: V72.0, 250.00, ICD10: Z01.00, [...] depressive disorder, in full remission ([facility]) - ICD9: 296.36, ICD10: F33.42 - as per #6 8. Chronic diastolic heart failure ([facility]), mild. - ICD9: 428.32, ICD10: I50.32 - Will add on aldactone 25 mg a day. - Needs to see cardio. 9. Pulmonary hypertension ([facility]) - ICD9: 416.8, ICD10: I27.20 - Cont f/u with cardio and pulm. She needs to reschedule these appts. 10. Bilateral leg edema - ICD9: 782.3, ICD10: R60.0 - Will add on the aldactone 11. GERD without esophagitis - ICD9: 530.81, ICD10: K21.9 - Continue treatment with Protonix 40 mg BID 12. COPD with chronic bronchitis ([facility]) - ICD9: 491.20, ICD10: J44.9 - Stable. Needs to f/u with pulm 13. Stage 3 chronic kidney disease, unspecified whether stage 3a or 3b CKD (HCC) - ICD9: 585.3, ICD10: N18.30 - Appears stable. Will need to check renal panel in a few weeks wit being on the aldactone 14. Obesity, Class III, BMI 40-49.9 (morbid obesity) (HCC) - ICD9: 278.01, ICD10: E66.01 Stable - [...] time Leno Briggs MD documented in this encounterCleveland Clinic [facility]07-13-2022 Miscellaneous Notes* Telephone Encounter - Leno [...] of insurance card and med list to [facility] fax#[phone]. Also let daughter know this was done. * Telephone Encounter - ZULEMA Salazar - 05/18/2022 7:24 AM EDT If staff could let patient sister Gail know what comes of response to home health services SW would appreciate. Gail ph.[phone]. * Telephone Encounter - ZULEMA Salazar - [...] be then faxed to home health agency. [facility] fax#[phone]. [facility] fax#[phone], [facility] fax [phone] are other home health care options if [facility] does not work. Sw will be out of the office for the rest of this week, so wanted provider office to be chan of this information. * Telephone Encounter - ZULEMA Salazar - 05/14/2022 10:35 AM EDT Yi spoke with patient sister Gail in regards to patient healthcare needs. Sw asked about transportation,ADL's ie bathing, grooming, mobility.Gail notes that family assists patient with transportationneeds and they also help patient with bathing,grooming, and mobility. Gail reports that she is wondering about more medical assistance.Yi asked Gail to clarify and she notes [...] PT to help assess patient limited mobility. Yi noted that there are home health agencies in the community that provide jail and PT ie. [facility]. Yi noted for Medicare a patient would need to be considered home bound. Home Health agencies also look to provider notes to see about home health being discussed at OV. Yi also noted [facility] program. [facility] has nursing,social work, therapy and [employer] of medineering students that go to patients homes that have chronic illness to help support them. Yi noted that she would send note to Dr. Briggs and IRAIDA Styles to review and advise on what services they feel would best support patient needs at this time. Yi asked Gail how receptive patient is regarding home health services. Gail notes that she spoke with patient last night and she was open to idea. Gail reports that patient also has upcoming appt with cardiology and pulmonology next week. * Telephone Encounter - ZULEMA Salazar - 05/13/2022 4:00 PM EDT Sw left message for patient sister Gail,Yi calling in regards to social service needs. Per MARY GRACE Styles note 05/13/22 patient gave verbal permission to speak with Gail ph.[phone]. Sw will try call again tomorrow 05/14 @10am to discuss transportation resources. documented in this encounterCleveland Clinic [facility]07-12-2022 History of Present illness Narrative* TRI Silva - 05/18/2022 2:05 PM EDT PULM FUNCTION SMARTBLOCK: Provider: Stephani Crooks PA-C Assisting Tech: RTI Silva Spirometry w/BD: 1 documented in this encounterCleveland Clinic South Po[facility] Hospital07-07-2022 Miscellaneous Notes* Telephone Encounter - Stephani Crooks PA-C - 05/13/2022 2:39 PM EDT Consult placed. * Telephone Encounter - Cynthia Shirley LPN - 05/13/2022 2:31 PM EDT Spoke with pt. She is agreeable to consult with SW. Pt would like SW to contact her sister Gail. Spoke with Gail and her contact # is [phone]. Gail states she will relay information to [...] She states Stephani suggested patient speak to Information Resources Manager about transportation issues. Patient's sister says she would likeher sister to speak to a social work specialist. Sister is not listed as an emergency contact or POA. Marie Kumar RN documented in this encounterCleveland Clinic [facility]07-05-2022 Miscellaneous Notes* Telephone Encounter - Stephani [...] to increase of metformin. Uses [facility]. Pt denies any s/s uti. Will come [...] okay. Stephani Crooks PA-C documented in this encounterCleveland Clinic [facility]07-05-2022 Miscellaneous Notes* Telephone Encounter - Brandy [...] daughter. Cynthia Shirley LPN documented in this [facility]07-05-2022 Miscellaneous Notes* Telephone Encounter - Cynthia Shirley LPN - 05/11/2022 8:42 AM EDT Pt requesting refills TAVO 05/07/22 NOV 07/07/22 Cynthia Shirley LPN documented in this [facility]07-01-2022 Instructions* Patient Instructions* Stephani Crooks PA-C - 05/07/2022 1:46 PM EDT Please reschedule with pulm and cardiology. documented in this encounterCleveland Clinic [facility]07-01-2022 History of Present illness Narrative* Stephani [...] stage 3, GFR 30-59 ml/min ([facility]) 01/01/2019 COPD with chronic bronchitis ([facility]) 02/15/2017 Dr. Brito Current use of proton pump inhibitor 11/25/2016 Mg checked 11/2017 DDD (degenerative disc disease), cervical 07/29/2015 DDD (degenerative disc disease), lumbar 05/08/2013 Diabetes mellitus type 2 in obese ([facility]) 06/2015 a1c 6.5% Diabetic eye exam ([facility]) 03/15/2017 Last done: 10/24/2019 No Retinopathy [...] TACO (obstructive sleep apnea) DME [employer] fx [phone] Pain due to total left knee replacement (HCC) 06/08/2018 Personal history of colonic polyps 01/23/2016 Primary insomnia 03/16/2017 Brain [place] 06/26/2018 recommended Klonopin every other day for a week and then just as needed. Primary osteoarthritis of right knee 07/13/2016 Pulmonary nodules 03/03/2013 Incidental non-calcified nodules 10/09/2012. Repeat CT due 06/2013 Recurrent major depressive disorder, in full remission ([facility]) 08/17/2012 Rheumatoid arthritis(714.0) Spondylosis of lumbar region without myelopathy or radiculopathy 05/28/2015 Status post total left knee replacement 06/08/2018 Stress incontinence 11/21/[address] Armas. Thyroid nodule 11/15/2018 Stable on 2017 Type 2 diabetes mellitus with stage 3 chronic kidney disease, without long-term current use of insulin ([facility]) 06/06/2017 Urge incontinence 11/21/2012 Previous Surgical History PAST SURGICAL HISTORY Procedure Laterality Date CHOLECYSTECTOMY HX 10/30/1997 COLONOSCOP W/ OR W/O BRSH SPEC 11/29/12 Colonoscopy repeat 3 years COLONOSCOP W/ OR W/O BRSH SPEC 01/28/16 Colonoscopy with mac COLONOSCOPY & POLYPECTOMY ~2007 2 polyps COLONOSCOPY & POLYPECTOMY ~2001 7 polyps COLONOSCOPY & POLYPECTOMY 11/30/2011 CYSTOSCOPY 09/21/12 EGD 10/17/2011 Dr Negrete in [place] EGD W/O OR W/BRUSH/WASH 05/16/2014 EGD EGD [...] rate Oxybutynin Other: See Comments suggerst by [facility] to stop since it can add to [...] mouth once daily. ) Walker (ULTRA-LIGHT ROLLATOR) [facility] One Rolator with seat. Dx: J44.9, M54.9, [...] stage 3a or 3b CKD ([facility]) - ICD9: 585.3, ICD10: N18.30 10. Diabetes mellitus type 2 in obese ([facility]) - ICD9: 250.00, 278.00, ICD10: E11.69, [...] recheck. Stephani Crooks PA-C documented in this encounterCleveland Clinic [facility]07-01-2022 Evaluation note* Diagnosis Type 2 diabetes [...] and respiratory abnormality documented in this encounter [facility]06-[facility] Miscellaneous Notes* Telephone Encounter - Cynthia Shirley [...] Tue. Cynthia Shirley LPN documented in this encounterCleveland Clinic South Pointe [facility] Misc[facility] Notes* Telephone Encounter - Antionette [...] cancelled and no showed appt on 04/07/22 Cristinachau Garcia Ma * Telephone Encounter - Sun Chavez Pss - 04/21/2022 2:50 PM EDT Pharmacy verified in Epic Patient has been identified by name and [...] advise. Sun Chavez Pss [facility]* Telephone Encounter - Leno [...] Shirley LPN * Telephone Encounter - Ana Sharif - 03/31/2022 9:45 AM EDT Patient has [...] No need to notify patient. [facility] Misc[facility] Notes* Telephone Encounter - Cynthia Shirley [...] notify patient. Romelia Dorantes documented in [facility] encounterC[facility] Miscellaneous Notes* Telephone Encounter - Shelby Rogel LPN - 03/22/2022 4:56 PM EDT Pt scheduled for apt on 04-07-22. Shelby Rogel LPN * Telephone Encounter - Stephani Crooks PA-C - 03/22/2022 3:15 PM EDT Patient needs to reschedule her visit with dr. Briggs. Stephani Crooks PA-C * Telephone Encounter - Ana Sharif - 03/22/2022 2:19 PM EDT Patient has [...] pharmacy. No need to notify patient. Ana [facility] documented in this encounterC[facility] NoteHNO ID: [id number] Author: MODESTO Salmeron Service: Radiology Author Type: Clinical Project Hire Type: Progress Notes Filed: 07/20/2021 2:36 PM [...] BY: MODESTO Salmeron July 20, 2021 2:35 PMChildren[facility] [id number] History of Past illness Narrative* Problem Noted [...] of this encounter (statuses as of 06/22/2023) [facility] Narrative* Problem [...] of this encounter (statuses as of 06/22/2023) [facility]* Problem [...] of this encounter (statuses as of 07/06/2023) [facility] N[facility]* Problem [...] of this encounter (statuses as of 08/24/2023) [facility]* Problem [...] of this encounter (statuses as of 09/02/2023) [facility] Narrative* Problem Noted Date Diagnosed Date Resolved Date Neck mass 04/14/2020 06/21/2023 Overview: Saw [facility], 04/2020, No mass on exam felt [...] of this encounter (statuses as of 09/20/2023) [facility] Narrative* Problem [...] of this encounter (statuses as of 03/22/2022) [facility]* Problem [...] of this encounter (statuses as of 03/31/2022) [facility]* Problem [...] of this encounter (statuses as of 03/31/2022) [facility]* Problem [...] of this encounter (statuses as of 04/22/2022) [facility]* Problem [...] of this encounter (statuses as of 04/30/2022) [facility]* Problem [...] of this encounter (statuses as of 05/07/2022) [facility]* Problem [...] of this encounter (statuses as of 05/11/2022) [facility]* Problem [...] of this encounter (statuses as of 05/11/2022) [facility]* Problem [...] of this encounter (statuses as of 05/12/2022) [facility]* Problem [...] of this encounter (statuses as of 05/13/2022) [facility]* Problem [...] of this encounter (statuses as of 05/18/2022) [facility]* Problem [...] of this encounter (statuses as of 05/19/2022) [facility]* Problem [...] of this encounter (statuses as of 05/24/2022) [facility]* Problem [...] of this encounter (statuses as of 05/26/2022) [facility]* Problem [...] of this encounter (statuses as of 05/27/2022) [facility]* Problem [...] of this encounter (statuses as of 06/01/2022) [facility]* Problem [...] of this encounter (statuses as of 06/03/2022) [facility]* Problem [...] of this encounter (statuses as of 06/03/2022) [facility] Problem [...] of this encounter (statuses as of 06/09/2022) [facility] Problem [...] of this encounter (statuses as of 06/14/2022) [facility] Problem [...] of this encounter (statuses as of 06/14/2022) [facility] Problem [...] of this encounter (statuses as of 06/14/2022) [facility] Problem [...] of this encounter (statuses as of 06/15/2022) [facility] Problem [...] of this encounter (statuses as of 06/29/2022) [facility] Problem [...] of this encounter (statuses as of 06/29/2022) [facility] Problem [...] of this encounter (statuses as of 07/04/2022) [facility] Problem [...] of this encounter (statuses as of 07/05/2022) [facility] Problem [...] of this encounter (statuses as of 07/06/2022) [facility] Problem [...] of this encounter (statuses as of 07/26/2022) [facility] Problem [...] of this encounter (statuses as of 07/27/2022) [facility] Problem [...] of this encounter (statuses as of 08/04/2022) [facility] Problem [...] of this encounter (statuses as of 08/27/2022) [facility] Problem [...] of this encounter (statuses as of 09/08/2022) [facility] Problem [...] of this encounter (statuses as of 09/15/2022) [facility] Problem [...] of this encounter (statuses as of 09/15/2022) [facility] Problem [...] of this encounter (statuses as of 10/14/2022) [facility] Problem [...] of this encounter (statuses as of 11/10/2022) [facility] Problem [...] of this encounter (statuses as of 11/10/2022) [facility] Problem [...] of this encounter (statuses as of 11/11/2022) [facility] Problem [...] of this encounter (statuses as of 11/11/2022) [facility] Problem [...] of this encounter (statuses as of 11/16/2022) [facility] Problem [...] of this encounter (statuses as of 11/19/2022) [facility] Problem [...] of this encounter (statuses as of 11/19/2022) [facility] Problem [...] of this encounter (statuses as of 11/22/2022) [facility] Problem [...] of this encounter (statuses as of 12/02/2022[facility] Problem [...] of this encounter (statuses as of 12/07/2022) [facility] Problem [...] of this encounter (statuses as of 12/13/2022) [facility] Problem [...] of this encounter (statuses as of 12/16/2022) [facility] Problem [...] of this encounter (statuses as of 12/23/2022) [facility] Problem [...] of this encounter (statuses as of 12/24/2022) [facility] Problem [...] of this encounter (statuses as of 12/27/2022) [facility] Problem [...] of this encounter (statuses as of 12/29/2022) [facility] Problem [...] of this encounter (statuses as of 01/06/2023) [facility] Problem [...] of this encounter (statuses as of 01/07/2023) [facility] Problem [...] of this encounter (statuses as of 01/14/2023) [facility] Problem [...] of this encounter (statuses as of 01/18/2023) [facility] Problem [...] of this encounter (statuses as of 01/19/2023) [facility] Problem [...] of this encounter (statuses as of 01/25/2023) [facility] Problem [...] of this encounter (statuses as of 01/26/2023) [facility] Problem [...] of this encounter (statuses as of 01/26/2023) [facility] Problem [...] of this encounter (statuses as of 01/28/2023) [facility] Problem [...] of this encounter (statuses as of 01/31/2023) [facility] Problem [...] of this encounter (statuses as of 02/03/2023) [facility] Problem [...] of this encounter (statuses as of 02/10/2023) [facility] Problem [...] of this encounter (statuses as of 02/10/2023) [facility] Problem [...] of this encounter (statuses as of 02/11/2023) [facility] Problem [...] of this encounter (statuses as of 02/14/2023) [facility] Problem [...] of this encounter (statuses as of 02/14/2023) [facility] Problem [...] of this encounter (statuses as of 02/18/2023) [facility] Problem [...] of this encounter (statuses as of 03/07/2023) [facility] Problem [...] of this encounter (statuses as of 03/09/2023) [facility] Problem [...] of this encounter (statuses as of 03/09/2023) [facility] Problem [...] of this encounter (statuses as of 03/12/2023) [facility] Problem [...] of this encounter (statuses as of 03/17/2023) [facility] Problem [...] of this encounter (statuses as of 04/04/2023) [facility] Problem [...] of this encounter (statuses as of 04/11/2023) [facility]* Problem [...] of this encounter (statuses as of 06/21/2023) [facility] No data available for this section [facility] Evaluation note* Diagnosis Chronic pain of both knees Neuropathic pain Neuralgia, neuritis, and radiculitis, unspecified Chronic pain syndrome Lumbar spondylosis Lumbosacral spondylosis without myelopathy DDD (degenerative disc disease), cervical Degeneration of cervical intervertebral disc Arthritis, multiple joint involvement Unspecified arthropathy, multiple sites documented [facility] this encounter [facility] Diagnosis Microscopic hematuria- Primary documented in this encounter [facility]* Diagnosis 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)- Primary Type II or unspecified type diabetes mellitus without mention of complication, not stated as uncontrolled Recurrent major depressive disorder, in full remission (HCC) MCI (mild cognitive impairment) Mild cognitive impairment, so stated documented in this encounter [facility] note* Diagnosis COPD with chronic bronchitis (HCC) Obstructive chronic bronchitis without exacerbation SOB (shortness of breath) Shortness of breath CHURCH (dyspnea on exertion) Other dyspnea and respiratory abnormality [facility] this [facility] Diagnosis Chronic pain syndrome- Primary Recurrent major depressive disorder, in full remission ([facility]) Essential hypertension Unspecified essential hypertension Mixed hyperlipidemia Type 2 diabetes mellitus with stage 3 chronic kidney disease, without long-term current use of insulin, unspecified whether stage 3a or 3b CKD ([facility]) Chronic diastolic heart failure ([facility]), mild. Chronic diastolic heart failure TACO (obstructive sleep apnea) Obstructive sleep apnea (adult) (pediatric) Obesity, Class III, BMI 40-49.9 (morbid obesity) ([facility]) Morbid obesity Urge incontinence documented in this encounter [facility] note* Diagnosis Type 2 diabetes mellitus with stage 3 chronic kidney disease, without long-term current use of insulin, unspecified whether stage 3a or 3b CKD (HCC)- Primary 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) Type II or unspecified type diabetes mellitus without mention of complication, not stated as uncontrolled Diabetic eye exam ([facility]) Type II or unspecified type diabetes [...] III, BMI 40-49.9 (morbid obesity) ([facility]) Morbid obesity TACO (obstructive sleep apnea) Obstructive sleep apnea (adult) (pediatric) Primary insomnia Persistent disorder of initiating or maintaining sleep Bilateral primary osteoarthritis of knee Microscopic hematuria [facility] Chronic pain of both knees Neuropathic pain Neuralgia, neuritis, and radiculitis, unspecified Chronic pain syndrome Lumbar spondylosis Lumbosacral spondylosis without myelopathy DDD (degenerative disc disease), cervical Degeneration of cervical intervertebral disc Arthritis, multiple joint involvement Unspecified arthropathy, multiple sites [facility] Diagnosis Hypertensive heart disease with congestive heart failure, unspecified heart failure type (HCC)- Primary Chronic diastolic heart failure (HCC) Chronic diastolic heart failure Type 2 diabetes mellitus with diabetic chronic kidney disease, unspecified CKD stage, unspecified whether technician terminal and repeater insulin use (HCC) Stage 3 chronic kidney disease, unspecified whether [...] apnea (adult) (pediatric) [facility] Chronic pain of both [...] history of fall [facility] Diagnosis Chronic pain of both knees Neuropathic pain Neuralgia, neuritis, and radiculitis, unspecified Chronic pain syndrome Lumbar spondylosis Lumbosacral spondylosis without myelopathy DDD (degenerative disc disease), cervical Degeneration of cervical intervertebral disc Arthritis, multiple joint involvement Unspecified arthropathy, multiple sites [facility] Diagnosis Chronic pain of both knees Neuropathic pain Neuralgia, neuritis, and radiculitis, unspecified Chronic pain syndrome Lumbar spondylosis Lumbosacral spondylosis without myelopathy DDD (degenerative disc disease), cervical Degeneration of cervical intervertebral disc Arthritis, multiple joint involvement Unspecified arthropathy, multiple sites [facility] Diagnosis Chronic pain of both knees Neuropathic pain Neuralgia, neuritis, and radiculitis, unspecified Chronic pain syndrome Lumbar spondylosis Lumbosacral spondylosis without myelopathy DDD (degenerative disc disease), cervical Degeneration of cervical intervertebral disc Arthritis, multiple joint involvement Unspecified arthropathy, multiple sites [facility]* Diagnosis Nightmares- Primary Other dysfunctions of sleep stages or arousal from sleep Dysuria Dementia with mood disturbance, unspecified dementia severity, unspecified dementia type documented [facility] this encounter [facility]* Diagnosis Colovesical fistula- Primary Intestinovesical fistula Vulvar irritation Other specified noninflammatory disorder of vulva and perineum Mixed incontinence Mixed incontinence urge and stress (male)(female) Morbid obesity (HCC) Morbid obesity Dementia, unspecified dementia severity, unspecified dementia type, unspecified whether behavioral, psychotic, or mood disturbance or anxiety (HCC) documented [facility] encounter [facility] Diagnosis Chronic pain of both knees Neuropathic pain Neuralgia, neuritis, and radiculitis, unspecified Chronic pain syndrome Lumbar spondylosis Lumbosacral spondylosis without myelopathy DDD (degenerative disc disease), cervical Degeneration of cervical intervertebral disc Arthritis, multiple joint involvement Unspecified arthropathy, multiple sites documented [facility]* Diagnosis Colovesical fistula Intestinovesical fistula Morbid obesity (HCC) Morbid obesity Poorly controlled diabetes mellitus (HCC) Type II or unspecified type diabetes mellitus without mention of complication, not stated as uncontrolled documented in this encounter [facility] note* Diagnosis Colovesical fistula- Primary Intestinovesical fistula documented in this encounter [facility] note* Diagnosis Colovesical fistula- Primary Intestinovesical fistula documented in this encounter [facility] note* Diagnosis Colovesical fistula- Primary Intestinovesical fistula documented in this encounter [facility] note* Diagnosis Medication management- Primary Encounter for long-term (current) use of other medications documented in this encounter [facility] note* Diagnosis Colovesical fistula- Primary Intestinovesical fistula Screening for ischemic heart disease- Primary documented in this encounter [facility] note* Diagnosis Chronic pain of both knees Neuropathic pain Neuralgia, neuritis, and radiculitis, unspecified Chronic pain syndrome Lumbar spondylosis Lumbosacral spondylosis without myelopathy DDD (degenerative disc disease), cervical Degeneration of cervical intervertebral disc Arthritis, multiple joint involvement Unspecified arthropathy, multiple sites documented in this encounter [facility] note* Diagnosis APPOINTMENT CANCELLED- Primary documented in this encounter [facility] note* Diagnosis Memory loss- Primary Mild episode of recurrent major depressive disorder (HCC) Nightmares Other dysfunctions of sleep stages or arousal from sleep 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 [facility] note* Diagnosis Colovaginal fistula- Primary Diverticulitis Diverticulitis of colon (without mention of hemorrhage) Abnormal CT scan Other nonspecific (abnormal) findings on radiological and other examinations of body structure Dementia, unspecified dementia severity, unspecified dementia type, unspecified whether behavioral, psychotic, or mood disturbance or anxiety (HCC) Morbid obesity (HCC) Morbid obesity 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 Diagnosis Memory loss 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 [facility] note* Diagnosis Colovaginal fistula Diabetes mellitus, type 2 (HCC) Type II or unspecified type diabetes mellitus without mention of complication, not stated as uncontrolled CHF (congestive heart failure) ([facility]) (HCC) Congestive heart failure, unspecified [facility]* Diagnosis Moderate late onset Alzheimer's dementia without behavioral disturbance, psychotic disturbance, mood disturbance, or anxiety (HCC)- Primary Insomnia, unspecified type 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) documented in this encounter [facility] note* Diagnosis Colovaginal fistula- Primary Colovesical fistula Intestinovesical fistula History of diverticulitis documented in this encounter [facility] note* Diagnosis Insomnia, unspecified type documented in this encounter [facility] note* Diagnosis Chronic pain of [...] neck documented in this encounter [facility] note* Diagnosis Other amnesia- Primary documented in this encounter [facility] note* Diagnosis Dysuria [facility] Hospital note* Diagnosis Anemia, unspecified type- Primary Hyponatremia Hyposmolality and/or hyponatremia documented in this encounter [facility] note* Diagnosis Dysuria Chronic pain of both knees Neuropathic pain Neuralgia, neuritis, and radiculitis, unspecified Chronic pain syndrome Lumbar spondylosis Lumbosacral spondylosis without myelopathy DDD (degenerative disc disease), cervical Degeneration of cervical intervertebral disc Arthritis, multiple joint involvement Unspecified arthropathy, multiple sites documented in this encounter [facility] Discharge instructions* Attachments The following attachments cannot be sent through Care Everywhere. * Colon Polypectomy Discharge Instructions (Khmer[facility] Outpatient Procedure (Routine) - Authorized Specialty Diagnoses / Procedures Referred By Lovely t Referred To Contact [facility] Diagnoses COPD with chronic bronchitis (HCC) SOB (shortness of breath) CHURCH (dyspnea on exertion) Procedures SPIROMETRY - BASELINE AND POST DILATOR BRNCDILAT RSPSE SPMTRY PRE&POST-BRNCDILAT ADMN Stephani Crooks PA-C [address] [place] [address] [facility] [address] [place] [id number] Referral ID Status Reason Start Date Expiration Date Visits Requested Visits Authorized [id number] Authorized Auto-Generat ed Referral 05/07/2022 11/06/2022 1 1 * Outpatient Procedure (Routine) - Authorized Specialty Diagnoses / Procedures Referred By Contac t Referred To Contact [facility] Diagnoses Chronic diastolic heart failure (HCC) SOB (shortness of breath) CHURCH (dyspnea on exertion) Procedures ECHO ECHO TTHRC R-T 2D W/WOM-MODE COMPL SPEC&COLR D Stephani Crooks PA-C [address] [place] [address] [address] Referral ID Status Reason Start Date Expiration Date Visits Requested Visits Authorized [id number] Authorized Auto-Generat ed Referral 05/07/2022 11/06/2022 1 1 [facility] for referral (narrative)* Outpatient Procedure (Routine) - Pending Review Specialty Diagnoses / Procedures Referred By Contac t Referred To Contact [facility] Diagnoses Colovesical fistula Procedures COLONOSCOPY DIAGNOSTIC COLONOSCOPY FLX DX W/COLLJ SPEC WHEN Leonel Lopez MD [address] [facility] [address] [place], [place] [id number] Referral ID Status Reason Start Date Expiration Date Visits Requested Visits Authorized [id number] Pending Review Auto-Generat ed Referral 02/18/2023 02/19/2024 1 1 [facility] note* JETHRO Barragan: PERFORM Event Display: Patient Summary Documents Authored Date: [id number] [facility] Summary Purpose Family History No Family History Records FoundNo Family History Records FoundNo Family History Records FoundNo Family History Records FoundNo Family History Records FoundNo Family History Records Found No data available for this section No Family History Records Found No data available for this section Advance Directives Documents on File Type Date Recorded 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 Advance Directive(s) 07/21/2020 9:36 AM [...] Documents on File Type Date Recorded 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 Advance Directive(s) 07/21/2020 9:36 AM [...] Documents on File Type Date Recorded 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 Advance Directives and Livin g Will 05/04/2023 1:18 PM Latest Code Status on File Code Status Date Activated Date Inactivated Comments Full Code 05/25/2023 8:10 AM 05/25/2023 2:17 PM Documents on File Type Date Recorded 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 Advance Directives and Livin g [...] Dysuria Nightmares Procedures CONSULT TO GERIATRICS OFFICE/OUTPATIENT [facility] 60-74 MINUTES Stephani Crooks PA-C [address] [place] [address] Referral ID Status Reason Start Date Expiration Date Visits Requested Visits Authorized [id number] Pending Review PCP Requested Referral 12/23/2022 12/23/2023 1 1 Specialty Diagnoses / Procedures Referred By Contac t Referred To Contact Colon and Rectal Surgery Diagnoses Colovesical fistula Procedures CONSULT TO COLO-RECTAL SURGERY OFFICE/OUTPATIENT [facility] 60-74 MINUTES Eufemia Chapa, LEAD RADIOLOGIC TECHNOLOGIST.COSTUME DRAPER [address] [place] [address] Referral ID Status Reason Start Date Expiration Date Visits Requested Visits Authorized [id number] Pending Review PCP Requested Referral 01/06/2023 01/06/2024 1 1 Specialty Diagnoses / Procedures Referred By Contac t Referred To Contact Stephani Crooks PA-C [address] [place] [address] Referral ID Status Reason Start Date Expiration Date Visits Re quested Visits Authorized [id number] Closed 1 1 Specialty Diagnoses / Procedures Referred By Contac t Referred To Contact Colon and Rectal Surgery Diagnoses Colovesical fistula Procedures CONSULT TO COLO-RECTAL SURGERY OFFICE/OUTPATIENT [facility] 60-74 MINUTES Leesa Ramirez MD [address] [place] [address] Referral ID Status Reason Start Date Expiration Date Visits Requested Visits Authorized [id number] Pending Review PCP Requested Referral 01/25/2023 01/25/2024 1 1 Specialty Diagnoses / Procedures Referred By Contac t Referred To Contact Radiology Diagnoses Memory loss Procedures CT head wo IV contrast Shantal Serrano, LEAD RADIOLOGIC TECHNOLOGIST - COSTUME DRAPER [address] [address] Referral ID Status Reason Start Date Expiration Date V isits Requested Visits Authorized [id number] Authorized 04/05/2023 10/02/2023 1 1 Referral ID Status Reason Start Date Expiration Date Visits Re quested Visits Authorized [id number] Closed 04/05/2023 10/02/2023 1 1 Additional Source Comments INFORMATION SOURCE (unrecogn ized section and content) DATE CREATED AUTHOR AUTHOR'S ORGANIZ ATION 04/13/2019 [facility] DATE CREATED AUTHOR AUTHOR'S ORGANIZ ATION 07/22/2021 [facility] DATE CREATED AUTHOR AUTHOR'S ORGANIZ ATION 02/05/2023 [facility] DATE CREATED AUTHOR AUTHOR'S ORGANIZ ATION 09/21/2023 [facility] DATE CREATED AUTHOR AUTHOR'S ORGANIZ ATION 11/18/2023 [facility] DATE CREATED AUTHOR AUTHOR'S ORGANIZ ATION 12/02/2023 [facility] ([place]) Source Comments (unrecognize d section and content) In the event this informatio n is protected by the Federal Confidentiality of Alcohol and Drug Abuse Patient Records regulations: The Federal rules restrict any use of the information to criminally investigate or prosecute any alcohol or drug abuse patient.[facility] the event this information is protected by the Federal Confidentiality of Alcohol and Drug Abuse Patient Records regulations: The Federal rules restrict any use of the information to criminally investigate or prosecute any alcohol or drug abuse patient.[facility] HospitalIn the event this information is protected by the Federal Confidentiality of Alcohol and Drug Abuse Patient Records regulations: The Federal rules restrict any use of the information to criminally investigate or prosecute any alcohol or drug abuse patient.[facility] HospitalIn the event this information is protected by the Federal Confidentiality of Alcohol and Drug Abuse Patient Records regulations: The Federal rules restrict any use of the information to criminally investigate or prosecute any alcohol or drug abuse patient.[facility] HospitalIn the event this information is protected by the Federal Confidentiality of Alcohol and Drug Abuse Patient Records regulations: The Federal rules restrict any use of the information to criminally investigate or prosecute any alcohol or drug abuse patient.[facility] HospitalIn the event this information is protected by the Federal Confidentiality of Alcohol and Drug Abuse Patient Records regulations: The Federal rules restrict any use of the information to criminally investigate or prosecute any alcohol or drug abuse patient.[facility] HospitalIn the event this information is protected by the Federal Confidentiality of Alcohol and Drug Abuse Patient Records regulations: The Federal rules restrict any use of the information to criminally investigate or prosecute any alcohol or drug abuse patient.[facility] HospitalIn the event this information is protected by the Federal Confidentiality of Alcohol and Drug Abuse Patient Records regulations: The Federal rules restrict any use of the information to criminally investigate or prosecute any alcohol or drug abuse patient.[facility] HospitalIn the event this information is protected by the Federal Confidentiality of Alcohol and Drug Abuse Patient Records regulations: The Federal rules restrict any use of the information to criminally investigate or prosecute any alcohol or drug abuse patient.[facility] HospitalIn the event this information is protected by the Federal Confidentiality of Alcohol and Drug Abuse Patient Records regulations: The Federal rules restrict any use of the information to criminally investigate or prosecute any alcohol or drug abuse patient.[facility] HospitalIn the event this information is protected by the Federal Confidentiality of Alcohol and Drug Abuse Patient Records regulations: The Federal rules restrict any use of the information to criminally investigate or prosecute any alcohol or drug abuse patient.[facility] HospitalIn the event this information is protected by the Federal Confidentiality of Alcohol and Drug Abuse Patient Records regulations: The Federal rules restrict any use of the information to criminally investigate or prosecute any alcohol or drug abuse patient.[facility] HospitalIn the event this information is protected by the Federal Confidentiality of Alcohol and Drug Abuse Patient Records regulations: The Federal rules restrict any use of the information to criminally investigate or prosecute any alcohol or drug abuse patient.[facility] HospitalIn the event this information is protected by the Federal Confidentiality of Alcohol and Drug Abuse Patient Records regulations: The Federal rules restrict any use of the information to criminally investigate or prosecute any alcohol or drug abuse patient.[facility] HospitalIn the event this information is protected by the Federal Confidentiality of Alcohol and Drug Abuse Patient Records regulations: The Federal rules restrict any use of the information to criminally investigate or prosecute any alcohol or drug abuse patient.[facility] HospitalIn the event this information is protected by the Federal Confidentiality of Alcohol and Drug Abuse Patient Records regulations: The Federal rules restrict any use of the information to criminally investigate or prosecute any alcohol or drug abuse patient.[facility] HospitalIn the event this information is protected by the Federal Confidentiality of Alcohol and Drug Abuse Patient Records regulations: The Federal rules restrict any use of the information to criminally investigate or prosecute any alcohol or drug abuse patient.[facility] HospitalIn the event this information is protected by the Federal Confidentiality of Alcohol and Drug Abuse Patient Records regulations: The Federal rules restrict any use of the information to criminally investigate or prosecute any alcohol or drug abuse patient.[facility] HospitalIn the event this information is protected by the Federal Confidentiality of Alcohol and Drug Abuse Patient Records regulations: The Federal rules restrict any use of the information to criminally investigate or prosecute any alcohol or drug abuse patient.[facility] HospitalIn the event this information is protected by the Federal Confidentiality of Alcohol and Drug Abuse Patient Records regulations: The Federal rules restrict any use of the information to criminally investigate or prosecute any alcohol or drug abuse patient.[facility] HospitalIn the event this information is protected by the Federal Confidentiality of Alcohol and Drug Abuse Patient Records regulations: The Federal rules restrict any use of the information to criminally investigate or prosecute any alcohol or drug abuse patient.[facility] HospitalIn the event this information is protected by the Federal Confidentiality of Alcohol and Drug Abuse Patient Records regulations: The Federal rules restrict any use of the information to criminally investigate or prosecute any alcohol or drug abuse patient.[facility] HospitalIn the event this information is protected by the Federal Confidentiality of Alcohol and Drug Abuse Patient Records regulations: The Federal rules restrict any use of the information to criminally investigate or prosecute any alcohol or drug abuse patient.[facility] HospitalIn the event this information is protected by the Federal Confidentiality of Alcohol and Drug Abuse Patient Records regulations: The Federal rules restrict any use of the information to criminally investigate or prosecute any alcohol or drug abuse patient.[facility] HospitalIn the event this information is protected by the Federal Confidentiality of Alcohol and Drug Abuse Patient Records regulations: The Federal rules restrict any use of the information to criminally investigate or prosecute any alcohol or drug abuse patient.[facility] HospitalIn the event this information is protected by the Federal Confidentiality of Alcohol and Drug Abuse Patient Records regulations: The Federal rules restrict any use of the information to criminally investigate or prosecute any alcohol or drug abuse patient.[facility] HospitalIn the event this information is protected by the Federal Confidentiality of Alcohol and Drug Abuse Patient Records regulations: The Federal rules restrict any use of the information to criminally investigate or prosecute any alcohol or drug abuse patient.[facility] HospitalIn the event this information is protected by the Federal Confidentiality of Alcohol and Drug Abuse Patient Records regulations: The Federal rules restrict any use of the information to criminally investigate or prosecute any alcohol or drug abuse patient.[facility] HospitalIn the event this information is protected by the Federal Confidentiality of Alcohol and Drug Abuse Patient Records regulations: The Federal rules restrict any use of the information to criminally investigate or prosecute any alcohol or drug abuse patient.[facility] HospitalIn the event this information is protected by the Federal Confidentiality of Alcohol and Drug Abuse Patient Records regulations: The Federal rules restrict any use of the information to criminally investigate or prosecute any alcohol or drug abuse patient.[facility] HospitalIn the event this information is protected by the Federal Confidentiality of Alcohol and Drug Abuse Patient Records regulations: The Federal rules restrict any use of the information to criminally investigate or prosecute any alcohol or drug abuse patient.[facility] HospitalIn the event this information is protected by the Federal Confidentiality of Alcohol and Drug Abuse Patient Records regulations: The Federal rules restrict any use of the information to criminally investigate or prosecute any alcohol or drug abuse patient.[facility] HospitalIn the event this information is protected by the Federal Confidentiality of Alcohol and Drug Abuse Patient Records regulations: The Federal rules restrict any use of the information to criminally investigate or prosecute any alcohol or drug abuse patient.[facility] HospitalIn the event this information is protected by the Federal Confidentiality of Alcohol and Drug Abuse Patient Records regulations: The Federal rules restrict any use of the information to criminally investigate or prosecute any alcohol or drug abuse patient.[facility] HospitalIn the event this information is protected by the Federal Confidentiality of Alcohol and Drug Abuse Patient Records regulations: The Federal rules restrict any use of the information to criminally investigate or prosecute any alcohol or drug abuse patient.[facility] HospitalIn the event this information is protected by the Federal Confidentiality of Alcohol and Drug Abuse Patient Records regulations: The Federal rules restrict any use of the information to criminally investigate or prosecute any alcohol or drug abuse patient.[facility] HospitalIn the event this information is protected by the Federal Confidentiality of Alcohol and Drug Abuse Patient Records regulations: The Federal rules restrict any use of the information to criminally investigate or prosecute any alcohol or drug abuse patient.[facility] HospitalIn the event this information is protected by the Federal Confidentiality of Alcohol and Drug Abuse Patient Records regulations: The Federal rules restrict any use of the information to criminally investigate or prosecute any alcohol or drug abuse patient.[facility] HospitalIn the event this information is protected by the Federal Confidentiality of Alcohol and Drug Abuse Patient Records regulations: The Federal rules restrict any use of the information to criminally investigate or prosecute any alcohol or drug abuse patient.[facility] HospitalIn the event this information is protected by the Federal Confidentiality of Alcohol and Drug Abuse Patient Records regulations: The Federal rules restrict any use of the information to criminally investigate or prosecute any alcohol or drug abuse patient.[facility] HospitalIn the event this information is protected by the Federal Confidentiality of Alcohol and Drug Abuse Patient Records regulations: The Federal rules restrict any use of the information to criminally investigate or prosecute any alcohol or drug abuse patient.[facility] HospitalIn the event this information is protected by the Federal Confidentiality of Alcohol and Drug Abuse Patient Records regulations: The Federal rules restrict any use of the information to criminally investigate or prosecute any alcohol or drug abuse patient.[facility] HospitalIn the event this information is protected by the Federal Confidentiality of Alcohol and Drug Abuse Patient Records regulations: The Federal rules restrict any use of the information to criminally investigate or prosecute any alcohol or drug abuse patient.[facility] HospitalIn the event this information is protected by the Federal Confidentiality of Alcohol and Drug Abuse Patient Records regulations: The Federal rules restrict any use of the information to criminally investigate or prosecute any alcohol or drug abuse patient.[facility] HospitalIn the event this information is protected by the Federal Confidentiality of Alcohol and Drug Abuse Patient Records regulations: The Federal rules restrict any use of the information to criminally investigate or prosecute any alcohol or drug abuse patient.[facility] HospitalIn the event this information is protected by the Federal Confidentiality of Alcohol and Drug Abuse Patient Records regulations: The Federal rules restrict any use of the information to criminally investigate or prosecute any alcohol or drug abuse patient.[facility] HospitalIn the event this information is protected by the Federal Confidentiality of Alcohol and Drug Abuse Patient Records regulations: The Federal rules restrict any use of the information to criminally investigate or prosecute any alcohol or drug abuse patient.[facility] HospitalIn the event this information is protected by the Federal Confidentiality of Alcohol and Drug Abuse Patient Records regulations: The Federal rules restrict any use of the information to criminally investigate or prosecute any alcohol or drug abuse patient.[facility] HospitalIn the event this information is protected by the Federal Confidentiality of Alcohol and Drug Abuse Patient Records regulations: The Federal rules restrict any use of the information to criminally investigate or prosecute any alcohol or drug abuse patient.[facility] HospitalIn the event this information is protected by the Federal Confidentiality of Alcohol and Drug Abuse Patient Records regulations: The Federal rules restrict any use of the information to criminally investigate or prosecute any alcohol or drug abuse patient.[facility] HospitalIn the event this information is protected by the Federal Confidentiality of Alcohol and Drug Abuse Patient Records regulations: The Federal rules restrict any use of the information to criminally investigate or prosecute any alcohol or drug abuse patient.[facility] HospitalIn the event this information is protected by the Federal Confidentiality of Alcohol and Drug Abuse Patient Records regulations: The Federal rules restrict any use of the information to criminally investigate or prosecute any alcohol or drug abuse patient.[facility] HospitalIn the event this information is protected by the Federal Confidentiality of Alcohol and Drug Abuse Patient Records regulations: The Federal rules restrict any use of the information to criminally investigate or prosecute any alcohol or drug abuse patient.[facility] HospitalIn the event this information is protected by the Federal Confidentiality of Alcohol and Drug Abuse Patient Records regulations: The Federal rules restrict any use of the information to criminally investigate or prosecute any alcohol or drug abuse patient.[facility] HospitalIn the event this information is protected by the Federal Confidentiality of Alcohol and Drug Abuse Patient Records regulations: The Federal rules restrict any use of the information to criminally investigate or prosecute any alcohol or drug abuse patient.[facility] HospitalIn the event this information is protected by the Federal Confidentiality of Alcohol and Drug Abuse Patient Records regulations: The Federal rules restrict any use of the information to criminally investigate or prosecute any alcohol or drug abuse patient.[facility] HospitalIn the event this information is protected by the Federal Confidentiality of Alcohol and Drug Abuse Patient Records regulations: The Federal rules restrict any use of the information to criminally investigate or prosecute any alcohol or drug abuse patient.[facility] HospitalIn the event this information is protected by the Federal Confidentiality of Alcohol and Drug Abuse Patient Records regulations: The Federal rules restrict any use of the information to criminally investigate or prosecute any alcohol or drug abuse patient.[facility] HospitalIn the event this information is protected by the Federal Confidentiality of Alcohol and Drug Abuse Patient Records regulations: The Federal rules restrict any use of the information to criminally investigate or prosecute any alcohol or drug abuse patient.[facility] HospitalIn the event this information is protected by the Federal Confidentiality of Alcohol and Drug Abuse Patient Records regulations: The Federal rules restrict any use of the information to criminally investigate or prosecute any alcohol or drug abuse patient.[facility] HospitalIn the event this information is protected by the Federal Confidentiality of Alcohol and Drug Abuse Patient Records regulations: The Federal rules restrict any use of the information to criminally investigate or prosecute any alcohol or drug abuse patient.[facility] HospitalIn the event this information is protected by the Federal Confidentiality of Alcohol and Drug Abuse Patient Records regulations: The Federal rules restrict any use of the information to criminally investigate or prosecute any alcohol or drug abuse patient.[facility] HospitalIn the event this information is protected by the Federal Confidentiality of Alcohol and Drug Abuse Patient Records regulations: The Federal rules restrict any use of the information to criminally investigate or prosecute any alcohol or drug abuse patient.[facility] HospitalIn the event this information is protected by the Federal Confidentiality of Alcohol and Drug Abuse Patient Records regulations: The Federal rules restrict any use of the information to criminally investigate or prosecute any alcohol or drug abuse patient.[facility] HospitalIn the event this information is protected by the Federal Confidentiality of Alcohol and Drug Abuse Patient Records regulations: The Federal rules restrict any use of the information to criminally investigate or prosecute any alcohol or drug abuse patient.[facility] HospitalIn the event this information is protected by the Federal Confidentiality of Alcohol and Drug Abuse Patient Records regulations: The Federal rules restrict any use of the information to criminally investigate or prosecute any alcohol or drug abuse patient.[facility] HospitalIn the event this information is protected by the Federal Confidentiality of Alcohol and Drug Abuse Patient Records regulations: The Federal rules restrict any use of the information to criminally investigate or prosecute any alcohol or drug abuse patient.[facility] HospitalIn the event this information is protected by the Federal Confidentiality of Alcohol and Drug Abuse Patient Records regulations: The Federal rules restrict any use of the information to criminally investigate or prosecute any alcohol or drug abuse patient.[facility] HospitalIn the event this information is protected by the Federal Confidentiality of Alcohol and Drug Abuse Patient Records regulations: The Federal rules restrict any use of the information to criminally investigate or prosecute any alcohol or drug abuse patient.[facility] HospitalIn the event this information is protected by the Federal Confidentiality of Alcohol and Drug Abuse Patient Records regulations: The Federal rules restrict any use of the information to criminally investigate or prosecute any alcohol or drug abuse patient.[facility] HospitalIn the event this information is protected by the Federal Confidentiality of Alcohol and Drug Abuse Patient Records regulations: The Federal rules restrict any use of the information to criminally investigate or prosecute any alcohol or drug abuse patient.[facility] HospitalIn the event this information is protected by the Federal Confidentiality of Alcohol and Drug Abuse Patient Records regulations: The Federal rules restrict any use of the information to criminally investigate or prosecute any alcohol or drug abuse patient.[facility] HospitalIn the event this information is protected by the Federal Confidentiality of Alcohol and Drug Abuse Patient Records regulations: The Federal rules restrict any use of the information to criminally investigate or prosecute any alcohol or drug abuse patient.[facility] HospitalIn the event this information is protected by the Federal Confidentiality of Alcohol and Drug Abuse Patient Records regulations: The Federal rules restrict any use of the information to criminally investigate or prosecute any alcohol or drug abuse patient.[facility] HospitalIn the event this information is protected by the Federal Confidentiality of Alcohol and Drug Abuse Patient Records regulations: The Federal rules restrict any use of the information to criminally investigate or prosecute any alcohol or drug abuse patient.[facility] HospitalIn the event this information is protected by the Federal Confidentiality of Alcohol and Drug Abuse Patient Records regulations: The Federal rules restrict any use of the information to criminally investigate or prosecute any alcohol or drug abuse patient.[facility] HospitalIn the event this information is protected by the Federal Confidentiality of Alcohol and Drug Abuse Patient Records regulations: The Federal rules restrict any use of the information to criminally investigate or prosecute any alcohol or drug abuse patient.[facility] HospitalIn the event this information is protected by the Federal Confidentiality of Alcohol and Drug Abuse Patient Records regulations: The Federal rules restrict any use of the information to criminally investigate or prosecute any alcohol or drug abuse patient.[facility] HospitalIn the event this information is protected by the Federal Confidentiality of Alcohol and Drug Abuse Patient Records regulations: The Federal rules restrict any use of the information to criminally investigate or prosecute any alcohol or drug abuse patient.[facility] HospitalIn the event this information is protected by the Federal Confidentiality of Alcohol and Drug Abuse Patient Records regulations: The Federal rules restrict any use of the information to criminally investigate or prosecute any alcohol or drug abuse patient.[facility] HospitalIn the event this information is protected by the Federal Confidentiality of Alcohol and Drug Abuse Patient Records regulations: The Federal rules restrict any use of the information to criminally investigate or prosecute any alcohol or drug abuse patient.[facility] HospitalIn the event this information is protected by the Federal Confidentiality of Alcohol and Drug Abuse Patient Records regulations: The Federal rules restrict any use of the information to criminally investigate or prosecute any alcohol or drug abuse patient.[facility] HospitalIn the event this information is protected by the Federal Confidentiality of Alcohol and Drug Abuse Patient Records regulations: The Federal rules restrict any use of the information to criminally investigate or prosecute any alcohol or drug abuse patient.[facility] HospitalIn the event this information is protected by the Federal Confidentiality of Alcohol and Drug Abuse Patient Records regulations: The Federal rules restrict any use of the information to criminally investigate or prosecute any alcohol or drug abuse patient.[facility] HospitalIn the event this information is protected by the Federal Confidentiality of Alcohol and Drug Abuse Patient Records regulations: The Federal rules restrict any use of the information to criminally investigate or prosecute any alcohol or drug abuse patient.[facility] Reason for Visit (unrecogniz ed section and content) Reason Onset Date Comments Refill Request 03/31/2022 Reason Onset Date Comments Refill Request 04/21/2022 Reason Comments Multiple Missed Appointment Reason Comments 6 Month Exam Specialty Diagnoses / Procedures Referred By Contac t Referred To Contact Family Practice / FAMILY MEDICINE Diagnoses 6 mo follow up /meds Procedures 4C EST Self, Stephani Ortiz PA-C [address] [place] [address] Referral ID Status Reason Start Date Expiration Date Visits Re quested Visits Authorized [id number] Closed 05/05/2022 11/06/2022 1 1 Reason Comments Results Reason Onset Date Comments Refill Request 05/10/2022 Reason Comments Patient Update Reason Comments Spirometry Specialty Diagnoses / Procedures Referred By Contac t Referred To Contact [facility] Diagnoses COPD with chronic bronchitis (HCC) SOB (shortness of breath) CHURCH (dyspnea on exertion) Procedures SPIROMETRY - BASELINE AND POST DILATOR BRNCDILAT RSPSE SPMTRY PRE&POST-BRNCDILAT Stephani Donahue PA-C [address] [place] [address] [facility] [address] [place] [address] Referral ID Status Reason Start Date Expiration Date V isits Requested Visits Authorized [id number] Closed Auto-Generate d Referral 05/07/2022 11/06/2022 1 1 Reason Comments Social Work Services Reason Comments Recheck Specialty Diagnoses / Procedures Referred By Contac t Referred To Contact Family Practice / FAMILY MEDICINE Diagnoses 4 weeks follow up Procedures 4C MD Brigitte Ortega Jeffrey A, MD [address] [place] [address] Referral ID Status Reason Start Date Expiration Date Visits Re quested Visits Authorized [id number] Closed 05/24/2022 11/06/2022 1 1 Reason Comments [facility] social work specialist verbal order reques t Reason Comments Patient [...] check Procedures 4C EST Leno Briggs MD [address] [place] [id number] Leno Briggs MD [address] [place] [address] Referral ID Status Reason Start Date Expiration Date Visits Re quested Visits Authorized [id number] Closed 07/05/2022 11/06/2022 1 1 Reason Comments [...] type Procedures CONSULT TO URO GYNECOLOGY OFFICE/OUTPATIENT [facility] 60-74 MINUTES Madalyn Degroot APRN.CNM [address] [place] [address] Referral ID Status Reason Start Date Expiration Date Visits Requested Visits Authorized [id number] Pending Review PCP Requested Referral Auto-Generate d Referral 12/28/2022 12/28/2023 1 1 Reason Onset Date Comments Refill Request 01/05/2023 Reason Comments vaginal pain Reason Onset Date Comments Refill Request 01/18/2023 Reason Comments Consult Colovesical fistula Specialty Diagnoses / Procedures Referred By Contac t Referred To Contact Colon and Rectal Surgery Diagnoses Colovesical fistula Procedures CONSULT TO COLO-RECTAL SURGERY OFFICE/OUTPATIENT [facility] 60-74 MINUTES Eufemia Chapa, LEAD RADIOLOGIC TECHNOLOGIST.[employer]ME [employer]APER [address] [place] [address] Referral ID Status Reason Start Date Expiration Date Visits Requested Visits Authorized [id number] Pending Review PCP Requested Referral 01/06/2023 01/06/2024 [...] dementia Procedures geriatric assessment Stephani Crooks [address] [place] [address] [facility] [address] [place] [address] Referral ID Status Reason Start Date Expiration Date V isits Requested Visits Authorized [id number] Pending Review 03/16/2023 09/12/2023 1 1 Reason Comments New Patient Evaluation for colov esical fistula Other Patient accompanied by Gail sister, Mariela daughter Reason Onset Date Comments Refill Request 04/10/2023 Specialty Diagnoses / Procedures Referred By Joseac t Referred To Contact Radiology Diagnoses Memory loss Procedures CT head wo IV contrast Shantal Serrano, LEAD RADIOLOGIC TECHNOLOGIST - COSTUME DRAPER [address] [address] Referral ID Status Reason Start Date Expiration Date Visits Re quested Visits Authorized [id number] Closed 04/05/2023 10/02/2023 1 1 Specialty Diagnoses / Procedures Referred By Contac t Referred To Contact 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] Procedures CT COLONOSCOPY FLX DX W/COLLJ SPEC WHEN PFRMD COLONOSCOPY Samantha Nava MD [address] [place] [address] [facility] [address] End[facility] [address] [place] [address] Referral ID Status Reason Start Date Expiration Date Visits Re quested Visits Authorized [id number] 1 1 Reason Comments Memory Loss Reason Comments Results Best # [phone]( Mariela, daughter)Discuss results of colonoscopy done 05/25/23 Reason Comments Med Refill Reason Comments Recheck Follow up 6 months Reason Onset Date Comments Med Refill 07/05/2023 Reason Onset Date Comments Refill Request 08/23/2023 Reason Onset Date Comments Cancelled Appointment 08/16/2023 Cancel miles ointment 08.16.23 2:45pm Reason Onset Date Comments change appointment 09/14/2023 Care Teams (unrecognized sec tion and content) Care Team Personnel Name: LENO BRIGGS MD Member Role: Primary Care Physician Address: Address: [address] [place] [address]- Care Team Related Persons Name: BRANDY SINGH Address: [address] [address] Consulting Practice Director Relationship Specialty Start Date End Date Leno Briggs MD [address] [place] [address] PCP - General Family Practice 11/25/16 Consulting Practice Director Relationship Specialty Start Date End Date Leno Briggs MD [address] [place] [address] PCP - General Family Practice 11/25/16 Consulting Practice Director Relationship Specialty Start Date End Date Leno Briggs MD [address] [place] [address] PCP - General Family Practice 11/25/16 Consulting Practice Director Relationship Specialty Start Date End Date Leno Briggs MD [address] [place] [address] PCP - General Family Practice 11/25/16 Consulting Practice Director Relationship Specialty Start Date End Date Leno Briggs MD [address] [place] [address] PCP - General Family Practice 11/25/16 Consulting Practice Director Relationship Specialty Start Date End Date Leno Briggs MD [address] [place] [address] [place] [address] PCP - General Family Practice 11/25/16 Consulting Practice Director Relationship Specialty Start Date End Date Leno Briggs MD [address] [place] [address] [place] [address] PCP - General Family Practice 11/25/16 Consulting Practice Director Relationship Specialty Start Date End Date Leno Briggs MD [address] [place] [address] PCP - General Family Practice 11/25/16 Consulting Practice Director Relationship Specialty Start Date End Date Leno Briggs MD [address] [place] [address] PCP - General Family Practice 11/25/16 Consulting Practice Director Relationship Specialty Start Date End Date Leno Briggs MD [address] [place] [address] PCP - General Family Practice 11/25/16 Consulting Practice Director Relationship Specialty Start Date End Date Leno Briggs MD [address] [place] [address] PCP - General Family Practice 11/25/16 Consulting Practice Director Relationship Specialty Start Date End Date Leno Briggs MD [address] [place] [address] PCP - General Family Practice 11/25/16 Consulting Practice Director Relationship Specialty Start Date End Date Leno Briggs MD [address] [place] [address] PCP - General Family Practice 11/25/16 Consulting Practice Director Relationship Specialty Start Date End Date Leno Briggs MD [address] [place] [address] PCP - General Family Practice 11/25/16 Consulting Practice Director Relationship Specialty Start Date End Date Leno Briggs MD [address] [place] [address] PCP - General Family Practice 11/25/16 Consulting Practice Director Relationship Specialty Start Date End Date Leno Briggs MD [address] [place] [address], [place] [address] PCP - General Family Practice 11/25/16 Consulting Practice Director Relationship Specialty Start Date End Date Leno Briggs MD [address] [place] [address] PCP - General Family Practice 11/25/16 Consulting Practice Director Relationship Specialty Start Date End Date Leno Briggs MD [address] [place] [address] PCP - General Family Practice 11/25/16 Consulting Practice Director Relationship Specialty Start Date End Date Leno Briggs MD [address] [place] [address] PCP - General Family Practice 11/25/16 Consulting Practice Director Relationship Specialty Start Date End Date Leno Briggs MD [address] [place] [address], [place] [address] PCP - General Family Practice 11/25/16 Consulting Practice Director Relationship Specialty Start Date End Date Leno Briggs MD [address] [place] [address] PCP - General Family Medicine 11/25/16 Consulting Practice Director Relationship Specialty Start Date End Date Leno Briggs MD [address] [place] [address] PCP - General Family Medicine 11/25/16 Consulting Practice Director Relationship Specialty Start Date End Date Leno Briggs MD [address] [place] [address] PCP - General Family Medicine 11/25/16 Consulting Practice Director Relationship Specialty Start Date End Date Leno Briggs MD [address] [place] [address] PCP - General Family Medicine 11/25/16 Consulting Practice Director Relationship Specialty Start Date End Date Leno Briggs MD [address] [place] [address] PCP - General Family Medicine 11/25/16 Consulting Practice Director Relationship Specialty Start Date End Date Leno Briggs MD [address] [place] [address] PCP - General Family Medicine 11/25/16 Consulting Practice Director Relationship Specialty Start Date End Date Leno Briggs MD [address] [place] [address] PCP - General Family Medicine 11/25/16 Consulting Practice Director Relationship Specialty Start Date End Date Leno Briggs MD [address] [place] [address] PCP - General Family Medicine 11/25/16 Consulting Practice Director Relationship Specialty Start Date End Date Leno Briggs MD [address] [place] [address] PCP - General Family Medicine 11/25/16 Consulting Practice Director Relationship Specialty Start Date End Date Leno Briggs MD [address] [place] [address] PCP - General Family Medicine 11/25/16 Consulting Practice Director Relationship Specialty Start Date End Date Leno Briggs MD [address] [place] [address] PCP - General Family Medicine 11/25/16 Consulting Practice Director Relationship Specialty Start Date End Date Leno Briggs MD [address] [place] [address] PCP - General Family Medicine 11/25/16 Consulting Practice Director Relationship Specialty Start Date End Date Leno Briggs MD [address] [place] [address] PCP - General Family Medicine 11/25/16 Consulting Practice Director Relationship Specialty Start Date End Date Leno Briggs MD [address] [place] [address] PCP - General Family Medicine 11/25/16 Consulting Practice Director Relationship Specialty Start Date End Date Leno Briggs MD [address] [place] [address] PCP - General Family Medicine 11/25/16 Consulting Practice Director Relationship Specialty Start Date End Date Leno Briggs MD [address] [place] [address] PCP - General Family Medicine 11/25/16 Consulting Practice Director Relationship Specialty Start Date End Date Leno Briggs MD [address] [place] [address] PCP - General Family Medicine 11/25/16 Consulting Practice Director Relationship Specialty Start Date End Date Leno Briggs MD [address] [place] [address] PCP - General Family Medicine 11/25/16 Consulting Practice Director Relationship Specialty Start Date End Date Leno Briggs MD [address] [place] [address] PCP - General Family Medicine 11/25/16 Consulting Practice Director Relationship Specialty Start Date End Date Leno Briggs MD [address] [place] [address] PCP - General Family Medicine 11/25/16 Consulting Practice Director Relationship Specialty Start Date End Date Leno Briggs MD [address] [place] [address] PCP - General Family Medicine 11/25/16 Consulting Practice Director Relationship Specialty Start Date End Date Leno Briggs MD [address] [place] [address] PCP - General Family Medicine 11/25/16 Consulting Practice Director Relationship Specialty Start Date End Date Leno Briggs MD [address] [place] [address] PCP - General Family Medicine 11/25/16 Consulting Practice Director Relationship Specialty Start Date End Date Leno Briggs MD [address] [place] [address] [place] [address] PCP - General 04/01/19 Consulting Practice Director Relationship Specialty Start Date End Date Leno Briggs MD [address] [address] [place] [address] PCP - General 04/01/19 Consulting Practice Director Relationship Specialty Start Date End Date Leno Briggs MD [address] [place], [place] [id number] PCP - General 04/01/19 Consulting Practice Director Relationship Specialty Start Date End Date Leno Briggs MD [address] [place], [place] [id number] PCP - General 04/01/19 Consulting Practice Director Relationship Specialty Start Date End Date Leno Briggs MD [address] [place], [place] [id number] PCP - General 04/01/19 Consulting Practice Director Relationship Specialty Start Date End Date Leno Briggs MD [address] [place], [place] [address] PCP - General 04/01/19 Consulting Practice Director Relationship Specialty Start Date End Date Leno Briggs MD [address] [place] [address] PCP - General 04/01/19 Consulting Practice Director Relationship Specialty Start Date End Date Leno Briggs MD [address] [place] [address] PCP - General Family Medicine 11/25/16 Consulting Practice Director Relationship Specialty Start Date End Date Leno Briggs MD [address] [place] [address] PCP - General Family Medicine 11/25/16 Consulting Practice Director Relationship Specialty Start Date End Date Leno Briggs MD [address] [place] [address] PCP - General Family Medicine 11/25/16 Consulting Practice Director Relationship Specialty Start Date End Date Leno Briggs MD [address] [place] [address] PCP - General Family Medicine 11/25/16 Consulting Practice Director Relationship Specialty Start Date End Date Leno Briggs MD [address] [place] [address] PCP - General 04/01/19 Consulting Practice Director Relationship Specialty Start Date End Date Leno Briggs MD [address] [place] [address] PCP - General 04/01/19 Consulting Practice Director Relationship Specialty Start Date End Date Leno Briggs MD [address] [place] [address] PCP - General Family Medicine 11/25/16 Consulting Practice Director Relationship Specialty Start Date End Date Leno Briggs MD [address] [place] [address] PCP - General Family Medicine 11/25/16 Consulting Practice Director Relationship Specialty Start Date End Date Leno Briggs MD [address] [place] [address] PCP - General Family Medicine 11/25/16 Scheduled [...] Provider: FILEMON Robles CRNA)[id number] (Stopped - Provider: Ashley Kesner, LEAD RADIOLOGIC TECHNOLOGIST - CONTINUOUS IMPROVEMENT COACH) sodium chloride 0.9% (NS) flush 10 mL [...] BE BASED ON THE PRIMARY CLINICAL RECORDS. [facility]. provides no warranty or guarantee of the accuracy or completeness of information in this document.
[2023-12-02 23:12] LABS: Magnesium 2.5 mg/dL (1.6-2.6); Phosphorus 4.5 mg/dL (2.5-4.9)
[2023-12-02] MEDS: 0.9% Normal Saline (1000mL) 1,000 ML 100 ML IV (23:23)
[2023-12-02] MEDS: Nystatin Powder 15gm Bottle 1 APPLIC TOPICAL (23:23)
[2023-12-02] MEDS: 0.9% Saline Lock 10 ML Syringe IV (23:23)
[2023-12-02] MEDS: Menthol/Lanolin/Calamine/Znox 113 GM Tube 1 APPLIC TOPICAL (23:23)
[2023-12-02] MEDS: OLANZapine 5 MG/TAB TAB.RAPDIS PO (23:24)
[2023-12-02] MEDS: Haloperidol 1 MG Tablet 2 MG PO (23:25)
[2023-12-02] MEDS: Mirtazapine 15 MG Tablet 7.5 MG PO (23:26)
[2023-12-02] MEDS: Donepezil HCl 10 MG Tablet PO (23:37)
[2023-12-02] MEDS: HYDROcodone Bitartrate/Apap 5/325 Tablet PO (23:37)
[2023-12-03] VITALS (7 sets, daily range): BP systolic 112–152; BP diastolic 70–98; PULSE 70–98; RESP 16–20; TEMP 36.7–37.1; O2SAT 93–97; BMI 47.9
--- NOTE | 2023-12-03 00:03 | NURSING ---
since admit to [facility] pt has not voiced any suicidal thoughts, pt asking repetitive questions about using bathroom, (forgets she has a steiner). oriented to self only. no attempts were made to harm self with O2 tubing. staff in room continuously since arrival. took meds crushed in applesauce and now resting quietly. spoke to Dr. Child about suicide precautions and she would like them continued and has a mental health consult ordered. will let nursing fiberglass boat assembly supervisor know.
--- NOTE | 2023-12-03 01:10 | NURSING ---
nursing supv aware pt has a suicide precaution sitter. pt sleeping, bed exit on
[2023-12-03] MEDS: LORazepam 1 MG Tablet PO ×3 (04:27→16:05)
[2023-12-03] MEDS: Nystatin Powder 15gm Bottle 1 APPLIC TOPICAL ×3 (04:27→21:06)
[2023-12-03] MEDS: proCHLORPERazine 10 MG/2 ML Vial 5 MG IV (04:27)
[2023-12-03] MEDS: 0.9% Saline Lock 10 ML Syringe IV (04:27)
--- NOTE | 2023-12-03 04:42 | NURSING ---
pt awake, anxious/repetitive questions asking if someone will stay with her for company & saying o heavenly father repetitively denies pain, oriented to self only. no self injurious behaviors observed. sitter with pt. bed exit on, fed snack, steiner emptied.
--- NOTE | 2023-12-03 07:23 | PN.HOSP_ITS ---
Reason for Visit Reason for Visit: Diagnoses Urinary tract infection, site not specified (12/02/23) Objective Data Objective Data Vital Signs: Vital Signs Temp Pulse Resp BP Pulse Ox O2 Del Method O2 Flow Rate 98.8 F 89 18 138/95 H 94 Room Air 4 12/03/23 04:47 12/03/23 04:47 12/03/23 04:47 12/03/23 04:47 12/03/23 04:47 12/03/23 04:47 12/02/23 23:46 Oxygen Flow Rate (L/min) 4 Oxygen Delivery Method Room Air Weight: 298 lb 11.622 oz Body Mass Index (BMI) 47.9 Intake & Output: Intake and Output for Last 24 Hours 12/01/23 12/02/23 12/03/23 23:59 23:59 23:59 Intake Total 50 / 50 120 / 120 Output Total 100 / 100 100 / 100 Balance -50 / -50 20 / 20 Lab / Micro Data 12/03/23 06:50 12/03/23 06:50 Labs: Laboratory Results - last 24 hr 12/02/23 19:14: WBC 6.0, RBC 4.84, Hgb 10.8 L, Hct 40.1, MCV 82.9, MCH 22.3 L, MCHC 26.9 L, RDW Std Deviation 59.7 H, RDW Coeff of Esvin 20.3 H, Plt Count 147 L, MPV 11.2, Immature Gran % (Auto) 0.200, Neut % (Auto) 62.0, Lymph % (Auto) 15.5 L, [place] % (Auto) 11.1 H, Eos % (Auto) 10.5 H, Baso % (Auto) 0.7, Absolute Neuts (auto) 3.7, Absolute Lymphs (auto) 0.93, Nucleated RBC % 0, Differential Comment SCANNED, PT 13.3, INR 1.0, APTT 29.5, Sodium 144, Potassium 4.1, Chloride 108 H, Carbon Dioxide 35.0 H, Anion Gap 1 L, BUN 16, Creatinine 1.12 H, Estim Creat Clear Calc 53.32, Est GFR (MDRD) Af Amer 60, Est GFR (MDRD) Non-Af 49 L, BUN/Creatinine Ratio 14.3, Glucose 110 H, Calcium 9.8, Phosphorus 4.5, Magnesium 2.5, Total Bilirubin 0.60, Direct Bilirubin 0.18, AST 23, ALT 27, Alkaline Phosphatase 105, Total Protein 6.7, Albumin 3.1 L, Globulin 3.6 12/02/23 20:08: Lactic Acid 1.1, Urine Color Red, Urine Clarity Cloudy, Urine pH 5.0, Ur Specific [place] 1.030, Urine Protein 100 H, Urine Glucose (UA) Normal, Urine Ketones Negative, Urine Occult Blood 250 H, Urine Nitrite Positive H, Urine Bilirubin 6 H, Urine Urobilinogen 8 H, Ur Leukocyte Esterase 500 H, Urine RBC > 100 SEEN, Urine WBC >100 SEEN, Ur Squamous Epith Cells 0 SEEN, Urine Bacteria RARE, Urine Mucus RARE 12/02/23 23:19: Ammonia 26.0 ABG Data ABG results: ABG 12/02/23 20:38 Specimen Type ART Sample Site R Radial pH 7.33 L Bicarbonate Actual 33.6 H Total CO2 36 Base Excess 8 H O2 Saturation 90 L O2 % 1.0 ABG pCO2 63.2 H ABG pO2 65 L [place] Test Positive O2 Delivery Device Cannula Vent Mode Not entered Radiography Diagnostic Testing: Radiology Impression Brain CT 12/02/23 19:44 IMPRESSION: Involutional changes, otherwise normal unenhanced CT scan of the brain. Sequela of sinus disease as described. Electronically Signed: Susanna Elliott MD at 20:54 EST , Physical Exam Narrative Seen and examined. Patient is awake cancer simple orientation questions like day and night, timing, name, date of and her names of her daughters. Patient is still moaning and repeats some words/phrases echolalia. Physical exam: General: Awake, oriented x3, Cooperative but repetitive. HEENT: Atraumatic, PERRLA, EOMI, Normocephalic Oral: No Gingival or Mucosal Lesions/ Ulcerations Neck: Supple, No JVD, Negative Carotid Bruits Chest wall/Lungs: Air entry diminished in bilateral lung bases. Mild bilateral wheezing. Cardiovascular: Regular rate, Regular Rhythm, Normal S1, Normal S2, No M/G/R Abdomen: Bowel Sounds Present, Soft, Non Tender, Non-Distended : No dysuria. No renal angle tenderness. No suprapubic tenderness. Extremities: No edema, Capillary Refill Less than 3 Seconds Skin: No rashes, No breakdown Musculoskeletal: No Tenderness to Palpation of Joints or Extremities Neurological: Cranial nerves II-XII grossly intact, DTR 2+/4. No acute focal neurological deficit. Psych/Mental Status: Flat affect, chronic dementia with decreased cognitive function. Assessment & Plan Assessment/Plan (1) UTI (urinary tract infection): PLAN: Plan The patient is an 83 y/o F was admitted with worsening and persistent confusion and intermittent threats to hurt herself like hanging herself with oxygen tubing. History of dementia. Patient was recently admitted with COVID and acute combined respiratory failure secondary to COVID-19 infection and superimposed right lower lobe bacterial pneumonia between 11/06/2023 to 11/21/2023. And was discharged to senior care. Patient has been to ER 2-3 times after discharge from the senior care. She was diagnosed with UTI at [facility] 2 days ago before admission and is started on cefdinir. She has history of chronic colovesical fistula and gets frequent UTIs. #1. Acute Encephalopathy, multifactorial secondary to Acute Complicated UTI with Colovesical Fistula on top of chronic dementia, complicated by recent admission and ED visits: The patient is admitted to [facility] upon ED evaluation remarkable nitrite positive, LE 500, RBC more than 100 WBC more than 100 cells and prelim urine culture shows GNR more than 100,000 colonies therefore continue empiric IV ceftriaxone Patient does not have leukocytosis or acute change in and CBC said mild decrease in platelet count from 173 K to 147 K. Chronic constipation but does not history of cirrhosis. Lactulose for constipation. Next I feel patient is medically stable for crisis management team to evaluate for suicidal ideation. Patient is stated that she wanted to hang herself with the oxygen tubing. #2. Chronic dementia-as per the daughter she had intermittent repeating of questions and she was living well with the family recently. Complicates care, medical course, recovery, and prognosis #4 chronic kidney disease stage IIIa-patient creatinine baseline around 13/1.0, currently 16/1.12. Does not meet criteria for SOLE. #5 recent recovery from COVID-19 infection with superimposed RLL bacterial pneumonia: During previous hospitalization,-patient completed medical course for COVID-19 #6 type 2 diabetes-1 Accu-Chek insulin coverage Humalog sliding scale. Glucose was 110. #8 chronic obstructive pulmonary disease-complicates care, medical course, recovery, and prognosis. Patient was on 2 L of oxygen after discharge but currently patient pulse ox of 94% on room air. Not in exacerbation. #9 essential hypertension-blood pressure is controlled. #10 recent history of C. difficile positive for PCR without detectable toxin- patient completed course of vancomycin oral, completed 12/01/2023.. #11 acute heart failure with preserved ejection fraction: Patient on Lasix. #14. DVT prophylaxis: Lovenox. #15. CODE status: Patient's daughters are her health care decision makers. Discussed CODE status at length including difference between FULL code, DNR-CCA and DNR-CC status. Following discussions about the differences in these status, requested DNR-CCA, no intubation status. A Charges/Coding Visit Charges Inpatient E&M: 58512 Subs Hosp L2
[2023-12-03 07:27] LABS: Bedside Glucose 112 mg/dL (74-106)
[2023-12-03 07:30] LABS: Absolute Lymphocyte Count 0.71 X10^3/uL (0.83-4.51); Absolute Neutrophil Count 3.3 X10^3/uL (2.0-7.7); Basophil# 0.04 X10^3/uL; Basophil% 0.8 % (0-1); Eosinophil# 0.59 X10^3/uL; Eosinophils% 11.6 % (0-5); Hematocrit 37.2 % (37-47); Hemoglobin 9.5 g/dL (12.0-15.0); Lymphocyte # 0.71 X10^3/ul (0.83-4.51); Lymphocyte % 13.9 % (19-41); Mean Corp Hgb Conc 25.5 g/dL (32-36); Mean Corpuscular Hgb 21.7 pg (27.0-32.0); Mean Corpuscular Volume 84.9 fL (81-99); Mean Platelet Vol. 11.1 fl (6.2-12.0); Monocyte# 0.49 X10^3/uL; Monocyte% 9.6 % (0-10); NRBC Flagged by Analyzer 0 % (0-5); Neutrophil # 3.25 X10^3/uL (2.7-7.7); Neutrophil % 63.7 % (47-70); POSITIVE MORPHOLOGY YES; Platelet Count 141 K/mm3 (150-450); RBC Distribution Width CV 20.2 % (11.6-14.6); RBC Distribution Width SD 61.6 fl (35.1-43.9); Red Blood Count 4.38 M/mm3 (4.2-5.4); White Blood Count 5.1 K/mm3 (4.4-11.0)
[2023-12-03 07:45] LABS: Differential Indicated SCAN CRITERIA MET
[2023-12-03 08:06] LABS: ALB/GLOB Ratio 0.8 RATIO (0.9-2.4); AST(SGOT) 20 U/L (15-37); Alanine Aminotransfer ALT/SGPT 23 U/L (13-56); Albumin, Serum 2.6 g/dL (3.2-5.0); Alkaline Phosphatase 90 U/L (45-117); Anion Gap 1 (5-15); BUN 15 mg/dL (7-18); BUN/Creat Ratio 14.9 RATIO (10-20); Calcium,Total 9.1 mg/dL (8.5-10.1); Chloride 111 mmol/L (98-107); Creatinine, Serum 1.01 mg/dL (0.55-1.02); EST Glomerular Filtration Rate 56 mL/min (>60); Est Glom Filt Rate - Afr Amer 67 mL/min (>60); Estimated Creatinine Clearance 59.82 ml/min; Globulin 3.3 g/dL (2.2-4.2); Glucose 128 mg/dL (74-106); Protein, Total 5.9 g/dL (6.4-8.2); Sodium Level 145 mmol/L (136-145)
[2023-12-03 09:26] LABS: Anisocytosis 2+; Differential Comment SCANNED
[2023-12-03 09:27] LABS: Macrocytosis 1+; Microcytosis 1+
[2023-12-03] MEDS: Ceftriaxone 2 GM in 0.9% Normal Saline (50mL MB+) 50 ML IV (10:30)
[2023-12-03] MEDS: Furosemide 20 MG Tablet PO ×2 (10:31→16:41)
[2023-12-03] MEDS: Potassium Chloride Oral Tablet 20 MEQ 40 MEQ PO (10:31)
[2023-12-03] MEDS: Menthol/Lanolin/Calamine/Znox 113 GM Tube 1 APPLIC TOPICAL ×4 (10:31→21:05)
[2023-12-03] MEDS: Sertraline 50 MG Tablet PO (10:32)
[2023-12-03] MEDS: Enoxaparin 40 MG/0.4 ML Syringe SC ×2 (10:32→21:07)
[2023-12-03] MEDS: Pantoprazole Sodium 40 MG Tablet PO (10:32)
[2023-12-03] MEDS: Haloperidol 1 MG Tablet 2 MG PO ×2 (10:33→21:02)
[2023-12-03] MEDS: OLANZapine 5 MG/TAB TAB.RAPDIS PO ×2 (10:33→21:20)
[2023-12-03] MEDS: Ipratropium/Albuterol Sulfate 3 ML AMPUL.NEB INHALATION (11:06)
--- NOTE | 2023-12-03 11:23 | CASEMGMT ---
Social Work SW notified that hospitalist is requesting a crisis evaluation. SW contacted crisis regarding assessment. SW spoke with crisis 11:20 AM, shift change is at 12 and the 12:00 criminal justice social worker will be over to evaluate as soon as possible. Of note, patient was evaluated by crisis at [facility] several days ago and is familiar with patient. Chart faxed to crisis. Abril Evans PRODUCTION MINER, RUG TOUCH UP PAINTER
[2023-12-03 11:41] LABS: Bedside Glucose 150 mg/dL (74-106)
--- NOTE | 2023-12-03 12:03 | NURSING ---
Per Dr. Sharpe patient does not require bedside sitter. SW aware and will inform crisis MD would like to still patient to have an evaluation.
[2023-12-03] MEDS: Lactulose 20 GM/30 ML UDC 10 GM PO (13:57)
[2023-12-03] MEDS: Phenazopyridine 95 MG Tablet PO ×2 (13:59→16:41)
--- NOTE | 2023-12-03 15:39 | CASEMGMT ---
Social Work SW notified by crisis that patient is not reporting or recalling suicidal ideations that were initially reported. Additionally, patient has multiple medical concerns at this time that are affecting mental status. Pt is not appropriate for psychiatric placement at this time. Pt can be re-evaluated if needed. Nursing reports patient's daughter is requesting pt not to return to [facility] and is interested in other SNF options. SW to contact daughter to discuss discharge planning. Abril Evans PROFESSOR OF RADIOLOGY, INFORMATION TECHNOLOGY SPECIALIST
[2023-12-03] MEDS: Haloperidol Lactate 5 MG/ML Vial IM (16:03)
[2023-12-03 16:45] LABS: Bedside Glucose 150 mg/dL (74-106)
[2023-12-03] MEDS: MELATONIN 3 MG TABLET PO (20:09)
[2023-12-03] MEDS: Atorvastatin Calcium 40 MG Tablet PO (21:03)
[2023-12-03] MEDS: Mirtazapine 15 MG Tablet 7.5 MG PO (21:08)
[2023-12-03] MEDS: Donepezil HCl 10 MG Tablet PO (21:19)
[2023-12-03 21:46] LABS: Bedside Glucose 138 mg/dL (74-106)
[2023-12-04] VITALS (10 sets, daily range): BP systolic 128–158; BP diastolic 58–94; PULSE 82–107; RESP 18–24; TEMP 36.6–36.7; O2SAT 89–98
[2023-12-04] MEDS: LORazepam 1 MG Tablet PO (02:33)
--- NOTE | 2023-12-04 07:25 | NURSING ---
For the last 15 min pt has laying in bed, eyes closed but repeating the words, heavenly father please help . please help me sit up . I beg of you then repeats those sentences over and over.
[2023-12-04] MEDS: Potassium Chloride Oral Tablet 20 MEQ 40 MEQ PO (08:56)
[2023-12-04] MEDS: Haloperidol 1 MG Tablet 2 MG PO (08:56)
[2023-12-04] MEDS: Aspirin 81 MG TAB.CHEW PO (08:57)
[2023-12-04] MEDS: Menthol/Lanolin/Calamine/Znox 113 GM Tube 1 APPLIC TOPICAL ×4 (08:57→19:57)
[2023-12-04] MEDS: Furosemide 20 MG Tablet PO ×2 (08:57→16:47)
[2023-12-04] MEDS: Phenazopyridine 95 MG Tablet PO ×3 (08:57→16:47)
[2023-12-04] MEDS: Lactulose 20 GM/30 ML UDC 10 GM PO (08:58)
[2023-12-04] MEDS: Pantoprazole Sodium 40 MG Tablet PO (08:59)
[2023-12-04] MEDS: OLANZapine 5 MG/TAB TAB.RAPDIS PO ×2 (08:59→19:57)
[2023-12-04] MEDS: Enoxaparin 40 MG/0.4 ML Syringe SC ×2 (08:59→20:01)
[2023-12-04] MEDS: HYDROcodone Bitartrate/Apap 5/325 Tablet PO (09:10)
[2023-12-04] MEDS: Ceftriaxone 2 GM in 0.9% Normal Saline (50mL MB+) 50 ML IV (09:11)
[2023-12-04] MEDS: Sertraline 50 MG Tablet PO (09:19)
[2023-12-04 09:22] LABS: Absolute Lymphocyte Count 0.82 X10^3/uL (0.83-4.51); Absolute Neutrophil Count 2.9 X10^3/uL (2.0-7.7); Basophil# 0.04 X10^3/uL; Basophil% 0.9 % (0-1); Eosinophil# 0.51 X10^3/uL; Eosinophils% 10.9 % (0-5); Hematocrit 38.4 % (37-47); Hemoglobin 10.2 g/dL (12.0-15.0); Lymphocyte # 0.82 X10^3/ul (0.83-4.51); Lymphocyte % 17.5 % (19-41); Mean Corp Hgb Conc 26.6 g/dL (32-36); Mean Corpuscular Hgb 22.3 pg (27.0-32.0); Mean Platelet Vol. 11.1 fl (6.2-12.0); Monocyte# 0.41 X10^3/uL; Monocyte% 8.7 % (0-10); NRBC Flagged by Analyzer 0 % (0-5); Neutrophil % 61.8 % (47-70); POSITIVE COUNT YES; POSITIVE MORPHOLOGY YES; RBC Distribution Width CV 20.1 % (11.6-14.6); RBC Distribution Width SD 60.4 fl (35.1-43.9); Red Blood Count 4.57 M/mm3 (4.2-5.4); White Blood Count 4.7 K/mm3 (4.4-11.0)
[2023-12-04 09:51] LABS: Differential Indicated SCAN CRITERIA MET; Platelet Count 139 K/mm3 (150-450)
[2023-12-04 09:53] LABS: Anisocytosis 1+; Platelet Estimate ADEQUATE (ADEQ)
[2023-12-04 10:29] LABS: Anion Gap -1 (5-15); BUN 12 mg/dL (7-18); BUN/Creat Ratio 12.7 RATIO (10-20); Calcium,Total 9.5 mg/dL (8.5-10.1); Chloride 112 mmol/L (98-107); Creatinine, Serum 0.95 mg/dL (0.55-1.02); EST Glomerular Filtration Rate 60 mL/min (>60); Est Glom Filt Rate - Afr Amer 72 mL/min (>60); Estimated Creatinine Clearance 63.59 ml/min; Glucose 143 mg/dL (74-106); Potassium 4.2 mmol/L (3.5-5.1); Sodium Level 146 mmol/L (136-145)
--- NOTE | 2023-12-04 11:58 | PN.HOSP_ITS ---
Reason for Visit Reason for Visit: Diagnoses Urinary tract infection, site not specified (12/02/23) Objective Data Objective Data Vital Signs: Vital Signs Temp Pulse Resp BP Pulse Ox O2 Del Method O2 Flow Rate 97.8 F 89 24 H 135/71 H 90 Nasal Cannula 4 12/04/23 02:29 12/04/23 02:29 12/04/23 02:43 12/04/23 02:29 12/04/23 02:47 12/04/23 07:41 12/04/23 09:42 Oxygen Flow Rate (L/min) 4 Oxygen Delivery Method Nasal Cannula Weight: 298 lb 11.622 oz Body Mass Index (BMI) 47.9 Intake & Output: Intake and Output for Last 24 Hours 12/02/23 12/03/23 12/04/23 23:59 23:59 23:59 Intake Total 50 / 50 2450 / 2450 Output Total 100 / 100 850 / 850 Balance -50 / -50 1600 / 1600 Lab / Micro Data 12/04/23 09:12 12/04/23 09:12 Labs: Laboratory Results - last 24 hr 12/03/23 16:27: POC Glucose 150 H 12/03/23 21:18: POC Glucose 138 H 12/04/23 09:12: WBC 4.7, RBC 4.57, Hgb 10.2 L, Hct 38.4, MCV 84.0, MCH 22.3 L, MCHC 26.6 L, RDW Std Deviation 60.4 H, RDW Coeff of Esvin 20.1 H, Plt Count 139 L, MPV 11.1, Immature Gran % (Auto) 0.200, Neut % (Auto) 61.8, Lymph % (Auto) 17.5 L, [place] % (Auto) 8.7, Eos % (Auto) 10.9 H, Baso % (Auto) 0.9, Absolute Neuts (auto) 2.9, Absolute Lymphs (auto) 0.82 L, Nucleated RBC % 0, Platelet Estimate ADEQUATE, Anisocytosis 1+, Sodium 146 H, Potassium 4.2, Chloride 112 H, Carbon Dioxide 35.0 H, Anion Gap -1 L, BUN 12, Creatinine 0.95, Estim Creat Clear Calc 63.59, Est GFR (MDRD) Af Amer 72, Est GFR (MDRD) Non-Af 60, BUN/Creatinine Ratio 12.7, Glucose 143 H, Calcium 9.5, Ammonia 23.0, Folate 30.10 Micro: Microbiology 12/02/23 20:08 Urine Catheter - Rapp Urine Culture - Final Pseudomonas aeruginosa Physical Exam Narrative Seen and examined. In the morning, patient is oriented to self but was confused is trying to get out of the bed with chair alarm. Earlier after discussion with the crisis management, suicide precaution was discontinued. She is more than 2 people assist from bed to chair or commode. Physical exam: General: Confused, disoriented.. Sometimes agitated HEENT: Atraumatic, PERRLA, EOMI, Normocephalic Oral: No Gingival or Mucosal Lesions/ Ulcerations Neck: Supple, No JVD, Negative Carotid Bruits Chest wall/Lungs: Air entry diminished in bilateral lung bases. No crepitation. Cardiovascular: Regular rate, Regular Rhythm, Normal S1, Normal S2, No M/G/R Abdomen: Bowel Sounds Present, Soft, Non Tender, Non-Distended : No dysuria. Rapp catheter with orange-colored urine from Pyr[place]. No renal angle tenderness. No suprapubic tenderness. Extremities: No edema, Capillary Refill Less than 3 Seconds Skin: No rashes, No breakdown Musculoskeletal: No Tenderness to Palpation of Joints or Extremities Neurological: Cranial nerves II-XII grossly intact, DTR 2+/4. No acute focal n eurological deficit. Psych/Mental Status: Flat affect, chronic dementia with decreased cognitive fun ction. Assessment & Plan Assessment/Plan (1) UTI (urinary tract infection): PLAN: Plan The patient is an 83 y/o F was admitted with worsening and persistent confusion and intermittent threats to hurt herself like hanging herself with oxygen tubing. History of dementia. Patient was recently admitted with COVID and acute combined respiratory failure secondary to COVID-19 infection and superimpo sed right lower lobe bacterial pneumonia between 11/06/2023 to 11/21/2023. And was discharged to intermediate. Patient has been to ER 2-3 times after discharge from the intermediate. She was diagnosed with UTI at [facility] 2 days ago before admission and is started on cefdinir. She has hi story of chronic colovesical fistula and gets frequent UTIs. #1. Acute Encephalopathy, multifactorial secondary to Acute Complicated UTI with Colovesical Fistula on top of chronic dementia, complicated by recent admission and ED visits: The patient is admitted to [facility] upon ED evaluation remarkable nitrite positive, LE 500, RBC more than 100 WBC more than 100 cells and prelim urine culture shows GNR more than 100,000 colonies therefore continue empiric IV ceftriaxone Patient does not have leukocytosis or acute change in and CBC said mild decrease in platelet count from 173 K to 147 K. Chronic constipation but does not history of cirrhosis. Lactulose for constipation. Next I feel patient is medically stable for crisis management team to evaluate for suicidal ideation. Patient is stated that she wanted to hang herself with the oxygen tubing. 12/04: Patient on multiple antipsychotic medications including haloperidol 2 mg twice daily, mirtazapine 7.5 mg nightly, lorazepam as needed, olanzapine 5 mg twice daily, donezepil, and sertraline. Haloperidol scheduled discontinued only IM as needed for agitation. Orientation cues. Urine culture growing Pseudomonas aeruginosa more than 100,000 sensitive to Zosyn, meropenem, tobramycin and gentamicin. I will change to Zosyn. Patient is having diarrhea about 4-5 times yesterday and today 2 times liquid therefore lactulose discontinued. #2. Chronic dementia-as per the daughter she had intermittent repeating of questions and she was living well with the family recently. Complicates care, medical course, recovery, and prognosis #4 chronic kidney disease stage IIIa-patient creatinine baseline around 13/1.0, currently 16/1.12. Does not meet criteria for SOLE. #5 recent recovery from COVID-19 infection with superimposed RLL bacterial pneumonia: During previous hospitalization,-patient completed medical course for COVID-19 #6 type 2 diabetes-1 Accu-Chek insulin coverage Humalog sliding scale. Glucose was 110. #8 chronic obstructive pulmonary disease-complicates care, medical course, recovery, and prognosis. Patient was on 2 L of oxygen after discharge but currently patient pulse ox of 94% on room air. Not in exacerbation. #9 essential hypertension-blood pressure is controlled. #10 recent history of C. difficile positive for PCR without detectable toxin- patient completed course of vancomycin oral, completed 12/01/2023.. #11 acute heart failure with preserved ejection fraction: Patient on Lasix. #14. DVT prophylaxis: Lovenox. #15. CODE status: Patient's daughters are her health care decision makers. Discussed CODE status at length including difference between FULL code, DNR-CCA and DNR-CC status. Following discussions about the differences in these status, requested DNR-CCA, no intubation status. A Microbiology Past 72 Hours 12/02/23 20:08 Urine Catheter - Rapp Urine Culture - Final Pseudomonas aeruginosa Laboratory Results 12/03/23 16:27: POC Glucose 150 H 12/03/23 21:18: POC Glucose 138 H 12/04/23 09:12: WBC 4.7, RBC 4.57, Hgb 10.2 L, Hct 38.4, MCV 84.0, MCH 22.3 L, MCHC 26.6 L, RDW Std Deviation 60.4 H, RDW Coeff of Esvin 20.1 H, Plt Count 139 L, MPV 11.1, Immature Gran % (Auto) 0.200, Neut % (Auto) 61.8, Lymph % (Auto) 17.5 L, [place] % (Auto) 8.7, Eos % (Auto) 10.9 H, Baso % (Auto) 0.9, Absolute Neuts (auto) 2.9, Absolute Lymphs (auto) 0.82 L, Nucleated RBC % 0, Platelet Estimate ADEQUATE, Anisocytosis 1+, Sodium 146 H, Potassium 4.2, Chloride 112 H, Carbon Dioxide 35.0 H, Anion Gap -1 L, BUN 12, Creatinine 0.95, Estim Creat Clear Calc 63.59, Est GFR (MDRD) Af Amer 72, Est GFR (MDRD) Non-Af 60, BUN/Creatinine Ratio 12.7, Glucose 143 H, Calcium 9.5, Ammonia 23.0, Vitamin B12 Pending, Folate 30.10 Charges/Coding Visit Charges Inpatient E&M: 44153 Subs Hosp L2
[2023-12-04] MEDS: Nystatin Powder 15gm Bottle 1 APPLIC TOPICAL ×2 (12:24→20:04)
[2023-12-04 12:27] LABS: Bedside Glucose 122 mg/dL (74-106)
[2023-12-04 12:27] LABS: Bedside Glucose 157 mg/dL (74-106)
[2023-12-04] MEDS: Piperacil/Tazobactam 3.375 GM in 0.9% Normal Saline (50mL MB+) 50 ML IV ×2 (12:59→23:13)
[2023-12-04] MEDS: Insulin Lispro 100 UNIT/ML INSULN.PEN SC (13:00)
[2023-12-04] MEDS: Acetaminophen 325 MG Tablet 650 MG PO (13:05)
[2023-12-04 17:11] LABS: Bedside Glucose 117 mg/dL (74-106)
[2023-12-04] MEDS: Mirtazapine 15 MG Tablet 7.5 MG PO (19:57)
[2023-12-04] MEDS: Atorvastatin Calcium 40 MG Tablet PO (19:57)
[2023-12-04] MEDS: MELATONIN 3 MG TABLET PO (19:57)
[2023-12-04] MEDS: Donepezil HCl 10 MG Tablet PO (19:58)
[2023-12-04] MEDS: LORazepam 0.5 MG Tablet PO (23:06)
[2023-12-04 23:35] LABS: Bedside Glucose 140 mg/dL (74-106)
[2023-12-05] VITALS (10 sets, daily range): BP systolic 114–135; BP diastolic 55–89; PULSE 85–94; RESP 16–20; TEMP 36.6–37.1; O2SAT 86–96
[2023-12-05] MEDS: Haloperidol Lactate 5 MG/ML Vial 1 MG IM ×2 (00:19→20:46)
[2023-12-05] MEDS: LORazepam 0.5 MG Tablet PO ×3 (06:08→20:46)
[2023-12-05] MEDS: Piperacil/Tazobactam 3.375 GM in 0.9% Normal Saline (50mL MB+) 50 ML IV ×3 (06:34→21:10)
[2023-12-05] MEDS: Nystatin Powder 15gm Bottle 1 APPLIC TOPICAL ×3 (06:36→20:01)
[2023-12-05 07:13] LABS: Bedside Glucose 109 mg/dL (74-106)
[2023-12-05 07:22] LABS: Absolute Lymphocyte Count 0.85 X10^3/uL (0.83-4.51); Absolute Neutrophil Count 3.1 X10^3/uL (2.0-7.7); Basophil# 0.03 X10^3/uL; Basophil% 0.6 % (0-1); Eosinophil# 0.62 X10^3/uL; Eosinophils% 12.3 % (0-5); Hemoglobin 9.5 g/dL (12.0-15.0); Lymphocyte # 0.85 X10^3/ul (0.83-4.51); Lymphocyte % 16.8 % (19-41); Mean Corp Hgb Conc 26.4 g/dL (32-36); Mean Corpuscular Hgb 22.2 pg (27.0-32.0); Mean Corpuscular Volume 84.3 fL (81-99); Mean Platelet Vol. 10.8 fl (6.2-12.0); Monocyte# 0.44 X10^3/uL; Monocyte% 8.7 % (0-10); NRBC Flagged by Analyzer 0 % (0-5); Neutrophil # 3.11 X10^3/uL (2.7-7.7); Neutrophil % 61.4 % (47-70); Platelet Count 136 K/mm3 (150-450); RBC Distribution Width CV 19.9 % (11.6-14.6); RBC Distribution Width SD 60.1 fl (35.1-43.9); Red Blood Count 4.27 M/mm3 (4.2-5.4); White Blood Count 5.1 K/mm3 (4.4-11.0)
[2023-12-05 07:55] LABS: Anion Gap -1 (5-15); BUN 8 mg/dL (7-18); BUN/Creat Ratio 8.8 RATIO (10-20); Calcium,Total 9.1 mg/dL (8.5-10.1); Chloride 110 mmol/L (98-107); Creatinine, Serum 0.91 mg/dL (0.55-1.02); EST Glomerular Filtration Rate 62 mL/min (>60); Est Glom Filt Rate - Afr Amer 76 mL/min (>60); Estimated Creatinine Clearance 66.39 ml/min; Glucose 121 mg/dL (74-106); Potassium 4.1 mmol/L (3.5-5.1); Sodium Level 144 mmol/L (136-145)
[2023-12-05] MEDS: Aspirin 81 MG TAB.CHEW PO (07:56)
[2023-12-05] MEDS: Pantoprazole Sodium 40 MG Tablet PO (07:56)
[2023-12-05] MEDS: Furosemide 20 MG Tablet PO ×2 (07:56→16:18)
[2023-12-05] MEDS: Sertraline 50 MG Tablet PO (07:56)
[2023-12-05] MEDS: Enoxaparin 40 MG/0.4 ML Syringe SC ×2 (07:56→20:00)
[2023-12-05] MEDS: Potassium Chloride Oral Tablet 20 MEQ 40 MEQ PO (07:57)
[2023-12-05] MEDS: Phenazopyridine 95 MG Tablet PO ×3 (07:57→16:18)
[2023-12-05 08:20] LABS: Vitamin B12 937 pg/mL (211-911)
[2023-12-05] MEDS: OLANZapine 5 MG/TAB TAB.RAPDIS PO ×2 (10:05→20:00)
[2023-12-05] MEDS: Menthol/Lanolin/Calamine/Znox 113 GM Tube 1 APPLIC TOPICAL ×4 (10:05→20:00)
[2023-12-05 11:24] LABS: Bedside Glucose 134 mg/dL (74-106)
--- NOTE | 2023-12-05 12:48 | PCM.PN.HOSP ---
Subjective Subjective Intermittent behavioral issues at night was evaluated by crisis for possible suicidal ideation which she has cleared. She still requiring 2 L nasal cannula from her previous COVID infection 2 weeks ago. Objective Data Objective Data Vital Signs: Vital Signs Temp Pulse Resp BP Pulse Ox O2 Del Method O2 Flow Rate 98.7 F 86 16 117/55 L 86 Room Air 2 12/05/23 11:20 12/05/23 11:20 12/05/23 11:20 12/05/23 11:20 12/05/23 12:45 12/05/23 12:45 12/05/23 11:20 Oxygen Flow Rate (L/min) 2 Oxygen Delivery Method Room Air Weight: 298 lb 11.622 oz Body Mass Index (BMI) 47.9 Intake & Output: Intake and Output for Last 24 Hours 12/04/23 12/05/23 12/06/23 03:59 03:59 03:59 Intake Total 2450 / 2450 1300 / 1300 150 / 150 Output Total 850 / 850 975 / 975 750 / 750 Balance 1600 / 1600 325 / 325 -600 / -600 Lab / Micro Data 12/05/23 07:12 12/05/23 07:12 Labs: Laboratory Results - last 24 hr 12/04/23 09:12: Vitamin B12 937 H 12/04/23 16:46: POC Glucose 117 H 12/04/23 20:03: POC Glucose 140 H 12/05/23 06:39: POC Glucose 109 H 12/05/23 07:12: WBC 5.1, RBC 4.27, Hgb 9.5 L, Hct 36.0 L, MCV 84.3, MCH 22.2 L, MCHC 26.4 L, RDW Std Deviation 60.1 H, RDW Coeff of Esvin 19.9 H, Plt Count 136 L, MPV 10.8, Immature Gran % (Auto) 0.200, Neut % (Auto) 61.4, Lymph % (Auto) 16.8 L, [place] % (Auto) 8.7, Eos % (Auto) 12.3 H, Baso % (Auto) 0.6, Absolute Neuts (auto) 3.1, Absolute Lymphs (auto) 0.85, Nucleated RBC % 0, Sodium 144, Potassium 4.1, Chloride 110 H, Carbon Dioxide 35.0 H, Anion Gap -1 L, BUN 8, Creatinine 0.91, Estim Creat Clear Calc 66.39, Est GFR (MDRD) Af Amer 76, Est GFR (MDRD) Non-Af 62, BUN/Creatinine Ratio 8.8 L, Glucose 121 H, Calcium 9.1 12/05/23 11:04: POC Glucose 134 H Micro: Microbiology 12/02/23 20:08 Urine Catheter - Rapp Urine Culture - Final Pseudomonas aeruginosa Physical Exam Narrative General: Alert, Cooperative, No apparent distress HEENT: Atraumatic, PERRLA, EOMI, Normocephalic Oral: Moist Mucosa Neck: Supple, No JVD Lungs: Diminished, Normal air movement, No rhonchi, No wheeze, No rales Cardiovascular: Regular rate, Regular Rhythm, Normal S1, Normal S2, No murmurs Abdomen: Soft, Non Tender, Non-Distended, No Hepato-splenomegaly Extremities: No edema, Capillary Refill Less than 3 Seconds Skin: No rashes, No breakdown Musculoskeletal: No Tenderness to Palpation of Joints or Extremities Neurological: Cranial nerves II-XII grossly intact, Motor Exam 5/5 strength throughout, Sensory exam intact to light touch and pain Psych/Mental Status: Flat Assessment & Plan Assessment/Plan (1) UTI (urinary tract infection): PLAN: Plan The patient is an 83 y/o F was admitted with worsening and persistent confusion and intermittent threats to hurt herself like hanging herself with oxygen tubing. History of dementia. Patient was recently admitted with COVID and acute combined respiratory failure secondary to COVID-19 infection and superimposed right lower lobe bacterial pneumonia between 11/06/2023 to 11/21/2023. And [facility]. Patient has been to ER 2-3 times after discharge from the [facility]. She was diagnosed with UTI at [facility] 2 days ago before admission and is started on cefdinir. She has history of chronic colovesical fistula and gets frequent UTIs. #1. Acute Encephalopathy, multifactorial secondary to Acute Complicated UTI with Colovesical Fistula on top of chronic dementia, complicated by recent admission and ED visits: The patient is admitted to [facility] upon ED evaluation remarkable nitrite positive, LE 500, RBC more than 100 WBC more than 100 cells and prelim urine culture shows GNR more than 100,000 colonies therefore continue empiric IV ceftriaxone Patient does not have leukocytosis or acute change in and CBC said mild decrease in platelet count from 173 K to 147 K. Chronic constipation but does not history of cirrhosis. Lactulose for constipation. Next I feel patient is medically stable for crisis management team to evaluate for suicidal ideation. Patient is stated that she wanted to hang herself with the oxygen tubing. 12/04: Patient on multiple antipsychotic medications including haloperidol 2 mg twice daily, mirtazapine 7.5 mg nightly, lorazepam as needed, olanzapine 5 mg twice daily, donezepil, and sertraline. Haloperidol scheduled discontinued only IM as needed for agitation. Orientation cues. Urine culture growing Pseudomonas aeruginosa more than 100,000 sensitive to Zosyn, meropenem, tobramycin and gentamicin. I will change to Zosyn. Patient is having diarrhea about 4-5 times yesterday and today 2 times liquid therefore lactulose discontinued. 12/05/2023: Pseudomonas is fairly resistant, continue with Zosyn #2. Chronic dementia-as per the daughter she had intermittent repeating of questions and she was living well with the family recently. Complicates care, medical course, recovery, and prognosis #4 chronic kidney disease stage IIIa-at baseline, will monitor #5 recent recovery from COVID-19 infection with superimposed RLL bacterial pneumonia: During previous hospitalization,-patient completed medical course for COVID-19 #6 type 2 diabetes-1 Accu-Chek insulin coverage Humalog sliding scale. Glucose was 110. #8 chronic obstructive pulmonary disease-complicates care, medical course, recovery, and prognosis. Patient was on 2 L of oxygen after discharge but currently patient pulse ox of 94% on room air. Not in exacerbation. Mostly due to recent COVID #9 essential hypertension-blood pressure is controlled. #10 recent history of C. difficile positive for PCR without detectable toxin-patient completed course of vancomycin oral, completed 12/01/2023.. #11 Chronic heart failure with preserved ejection fraction: Patient on Lasix. Was never acute DVT: Lovenox Charges/Coding Visit Charges Inpatient E&M: 68623 Subs Hosp L2
--- NOTE | 2023-12-05 13:16 | CASEMGMT ---
Discharge Planning A list of SNF providers including quality and resource use data and consistent with the patient's preferred geographic region, medical needs, and insurance network was created in [facility] Guide.? This list was provided to the SW. Huong Villalta Discharge Planning Asst.
--- NOTE | 2023-12-05 16:00 | CASEMGMT ---
Social Work Consult received as patient from nursing facility: [facility]. Received report that family does not want patient return back to this facility. Medical records reviewed and noted patient was placed at the [facility] facility from [facility] on November 21, 2023. Noted upon this admission patient with confusion, and reportedly some comments about suicidal ideation. Crisis was consulted determined patient not appropriate for psychiatric placement due to medical issues. Patient also had not remembered stating anything about being suicidal. Met with patient and patient's daughter Aggie in room, introducing to self and social work role. Patient appearing confused, as evidenced by repetitive statements without appearing recall of conversation occurring before. Aggie reports patient has been dealing with dementia for some time now, but has never had any type of suicidality or suicide attempts in the past. Aggie reports patient was diagnosed with the urinary tract infection at the nursing facility, and this is when patient's increased confusion and mental status changed even more. This senior copywriter noted in chart patient that, has a diagnosis related to schizophrenia. Explored with Aggie whether patient has ever been diagnosed or treated for such a disorder. Aggie reports patient has not. Aggie reports between 2004 and 2006 patient did have a nervous breakdown related to some delayed grief of the patient's passing. Aggie indicates some depression anxiety, but now schizophrenia type diagnosis. Aggie reports a strong history of dementia in the patient's mother. No past psychiatric hospitalizations for patient either. Explore discharge planning. Aggie confirms that patient's daughters do not wish for patient to return to [facility]. Aggie trever has been in communication with [facility] mcfp and rehab, and this facility is willing to accept the patient. This senior copywriter did provide the daughter with list of m[facility] facility options, generated by [facility], including patient's geographical region, Medicare quality STAR data. Explain to daughter these would be the choices should [facility] not be able to accept the patient. Aggie reports the ultimate goal is for patient to get a little bit stronger, and then eventually go home with hospice care. Aggie perera used to be a volunteer for [facility] and knows the benefits of the service. This senior copywriter broached palliative care services to follow the patient at the nursing facility, as an additional supports to patient. Aggie perera would like for palliative care consult order to be done when patient is at the shelter. This senior copywriter did speak with the patient's other daughter Brandy on the phone. Patient and Brandy do live in the same home. Brandy reports concerned about patient running out of skilled benefits and not having finances to pay for the co-pay when the co-pay starts. Brandy is interested in starting the process for Medicaid application. This senior copywriter confirmed Brandy's phone number and email, and agreed to make referral to [facility]'s for source program, to see if the counter sales representative would be able to help with starting this process. Email sent for source requesting assistance. Updated discharge strategy planning consultant Huong, to choice for [facility] mcfp and rehab. Plan: pending referral at [facility] mcfp and rehab, anticipate short-term skilled care. Family would like a palliative care consult ordered for the nursing facility. Patient will be able to transfer to a new facility with the original passr, has there been no break to the community. Social work to follow. -GOGO Castillo, FRONT DESK MANAGER *This note was generated with [employer] dictation software. It may contain incorrect words, spelling, and punctuation that were not noted in review of the chart prior to signing*
--- NOTE | 2023-12-05 16:16 | CASEMGMT ---
Advanced Directive Validation Upon admission it is indicated patient does not have a Living Will, but does have a POAHC who is the patient's daughter Brandy Lemus. Spoke with patient's daughter Lachelle, who was in room visiting. Lachelle reports belief that POAHC paperwork was never actually completed. Called daughter Brandy. Brandy reports there was never anything formal done for the POAHC, no paperwork was ever filled out. Educated both daughters that in light of no POAHC paperwork being completed or produced, then decision making goes to both children when decision making would be needed. Both daughters report to communicate openly with each other and talk to make decisions together for this patient. Summary: Validated that there are NO Advanced Directives in place for patient, as per conversation with both daughters. -RUDY Castillo
[2023-12-05 16:18] LABS: Bedside Glucose 147 mg/dL (74-106)
--- NOTE | 2023-12-05 16:25 | CASEMGMT ---
Addendum entered by Huong Villalta 12/06/23 14:37: [facility] has accepted referral and submitted for precert. Huong Villalta, Discharge Planning Asst. Original Note: Discharge Planning Referral sent to [facility] via [facility]. Huong Villalta, Discharge Planning Asst.
--- NOTE | 2023-12-05 16:40 | CHAPLAIN ---
Type of Pastoral Visit _x__ Initial Visit ___ Follow-up Visit ___ On-call Visit ___ General Patient Visit ___ Spiritual Assessment ___ Family Conference ___ Bereavement ___ Rapid Response ___ Code Blue ___ Other (describe below) Pastoral Care Referral From _x__ Patient ___ Family _x__ Nurse ___ Physician ___ Coil Machine Operator ___ Blade Aligner ___ Other (describe below) Sacrament/Intervention _x__ Active listening ___ Anointing ___ Mormon ___ Bereavement ___ Communion ___ Marley exploration ___ ___ Life review _x__ Prayer ___ Reconciliation ___ Sacrament of Sick _x__ Supportive presence ___ Wedding ___ Other (describe below) Pastoral Comments this is a readmitted patient that has been seen several times recently; daughter and great grand daughter are in the room; pt is welcoming but slow to enter into a conversation; pt does talk about her family and welcomes a prayer; offer of support to family members given
[2023-12-05] MEDS: HYDROcodone Bitartrate/Apap 5/325 Tablet PO (18:56)
--- NOTE | 2023-12-05 19:00 | NURSING ---
pt confused and attempting to get out of bed nursing sat with pt for a while and tried to talk with her. pt grabbed scrub pocket and attempted to rip it off. pt then attempted to grab neck of nursing. told pt do not grab nursing. pt apologized. purple violent sign placed on door.
[2023-12-05] MEDS: MELATONIN 3 MG TABLET PO (20:00)
[2023-12-05] MEDS: Atorvastatin Calcium 40 MG Tablet PO (20:00)
[2023-12-05] MEDS: Donepezil HCl 10 MG Tablet PO (20:01)
[2023-12-05] MEDS: Mirtazapine 15 MG Tablet 7.5 MG PO (20:05)
[2023-12-05] MEDS: 0.9% Saline Lock 10 ML Syringe IV (21:11)
--- NOTE | 2023-12-05 22:08 | PCM.HOSP.N ---
Hospitalist Note Patient with significant agitation overnight. Was called about 10 PM due to the patient calling out and being severely agitated. Reviewed home medication list and she is on quite a bit of psychiatric medication. Will increase olanzapine to 10 mg p.o. twice daily and give her 10 mg of melatonin. If this is not helpful we will place her back on her home Haldol for acute psychosis 2 mg p.o. twice daily. It does not appear that she is on this at this time.
[2023-12-05] MEDS: MELATONIN 3 MG TABLET 7 MG PO (22:45)
[2023-12-05] MEDS: OLANZapine 5 MG/TAB TAB.RAPDIS 10 MG PO (22:45)
[2023-12-06 00:41] LABS: Bedside Glucose 124 mg/dL (74-106)
[2023-12-06] MEDS: Haloperidol Lactate 5 MG/ML Vial 1 MG IM (01:27)
--- NOTE | 2023-12-06 01:35 | NURSING ---
pt ripped her IV again for the 3rd time. pt woke up and screaming and getting agitated again. haldol ordered given. bed exit on.
[2023-12-06] MEDS: Haloperidol 1 MG Tablet 2 MG PO ×3 (01:37→20:51)
[2023-12-06 06:00] VITALS: BMI 48.1
[2023-12-06] MEDS: Piperacil/Tazobactam 3.375 GM in 0.9% Normal Saline (50mL MB+) 50 ML IV ×3 (06:37→20:55)
[2023-12-06] MEDS: Nystatin Powder 15gm Bottle 1 APPLIC TOPICAL ×3 (06:37→20:44)
[2023-12-06] MEDS: 0.9% Saline Lock 10 ML Syringe IV (06:38)
[2023-12-06 07:12] LABS: Bedside Glucose 103 mg/dL (74-106)
[2023-12-06 07:29] LABS: Absolute Lymphocyte Count 1.08 X10^3/uL (0.83-4.51); Absolute Neutrophil Count 2.1 X10^3/uL (2.0-7.7); Basophil# 0.03 X10^3/uL; Basophil% 0.7 % (0-1); Eosinophils% 13.9 % (0-5); Hemoglobin 9.3 g/dL (12.0-15.0); Lymphocyte # 1.08 X10^3/ul (0.83-4.51); Mean Corp Hgb Conc 27.4 g/dL (32-36); Mean Corpuscular Hgb 22.8 pg (27.0-32.0); Mean Corpuscular Volume 83.3 fL (81-99); Mean Platelet Vol. 10.4 fl (6.2-12.0); Monocyte% 11.6 % (0-10); NRBC Flagged by Analyzer 0 % (0-5); Neutrophil % 48.6 % (47-70); Platelet Count 134 K/mm3 (150-450); RBC Distribution Width CV 19.7 % (11.6-14.6); RBC Distribution Width SD 59.3 fl (35.1-43.9); Red Blood Count 4.08 M/mm3 (4.2-5.4); White Blood Count 4.3 K/mm3 (4.4-11.0)
[2023-12-06 07:58] LABS: Anion Gap 3 (5-15); BUN 9 mg/dL (7-18); BUN/Creat Ratio 10.6 RATIO (10-20); Calcium,Total 9.1 mg/dL (8.5-10.1); Chloride 108 mmol/L (98-107); Creatinine, Serum 0.85 mg/dL (0.55-1.02); EST Glomerular Filtration Rate 68 mL/min (>60); Est Glom Filt Rate - Afr Amer 82 mL/min (>60); Estimated Creatinine Clearance 71.17 ml/min; Glucose 110 mg/dL (74-106); Potassium 3.8 mmol/L (3.5-5.1); Sodium Level 146 mmol/L (136-145)
[2023-12-06 08:05] VITALS: O2SAT 89
[2023-12-06 08:14] VITALS: BP 122/50; PULSE 87; RESP 18; TEMP 36.7; O2SAT 92
[2023-12-06] MEDS: Enoxaparin 40 MG/0.4 ML Syringe SC ×2 (08:19→20:41)
[2023-12-06] MEDS: Pantoprazole Sodium 40 MG Tablet PO (08:20)
[2023-12-06] MEDS: Potassium Chloride Oral Tablet 20 MEQ 40 MEQ PO (08:20)
[2023-12-06] MEDS: Menthol/Lanolin/Calamine/Znox 113 GM Tube 1 APPLIC TOPICAL ×4 (08:20→20:45)
[2023-12-06] MEDS: Aspirin 81 MG TAB.CHEW PO (08:21)
[2023-12-06] MEDS: Sertraline 50 MG Tablet PO (08:21)
[2023-12-06] MEDS: Phenazopyridine 95 MG Tablet PO ×3 (08:21→16:52)
[2023-12-06] MEDS: Furosemide 20 MG Tablet PO ×2 (08:22→16:52)
[2023-12-06 08:27] VITALS: O2SAT 92
[2023-12-06] MEDS: OLANZapine 5 MG/TAB TAB.RAPDIS 10 MG PO ×2 (09:39→20:40)
--- NOTE | 2023-12-06 11:28 | PCM.PN.HOSP ---
Subjective Subjective Resting comfortably this morning, periods of agitation overnight Objective Data Objective Data Vital Signs: Vital Signs Temp Pulse Resp BP Pulse Ox O2 Del Method O2 Flow Rate 98.1 F 87 18 122/50 H 92 Nasal Cannula 3 12/06/23 08:14 12/06/23 08:14 12/06/23 08:14 12/06/23 08:14 12/06/23 08:27 12/06/23 08:56 12/06/23 08:56 Oxygen Flow Rate (L/min) 3 Oxygen Delivery Method Nasal Cannula Weight: 299 lb 6.204 oz Body Mass Index (BMI) 48.1 Intake & Output: Intake and Output for Last 24 Hours 12/05/23 12/06/23 12/07/23 03:59 03:59 03:59 Intake Total 1300 / 1300 500 / 500 50 / 50 Output Total 975 / 975 1450 / 1450 300 / 300 Balance 325 / 325 -950 / -950 -250 / -250 Lab / Micro Data 12/06/23 07:18 12/06/23 07:18 Labs: Laboratory Results - last 24 hr 12/05/23 16:01: POC Glucose 147 H 12/05/23 22:11: POC Glucose 124 H 12/06/23 06:21: POC Glucose 103 12/06/23 07:18: WBC 4.3 L, RBC 4.08 L, Hgb 9.3 L, Hct 34.0 L, MCV 83.3, MCH 22.8 L, MCHC 27.4 L, RDW Std Deviation 59.3 H, RDW Coeff of Esvin 19.7 H, Plt Count 134 L, MPV 10.4, Immature Gran % (Auto) 0.200, Neut % (Auto) 48.6, Lymph % (Auto) 25.0, [place] % (Auto) 11.6 H, Eos % (Auto) 13.9 H, Baso % (Auto) 0.7, Absolute Neuts (auto) 2.1, Absolute Lymphs (auto) 1.08, Nucleated RBC % 0, Sodium 146 H, Potassium 3.8, Chloride 108 H, Carbon Dioxide 35.0 H, Anion Gap 3 L, BUN 9, Creatinine 0.85, Estim Creat Clear Calc 71.17, Est GFR (MDRD) Af Amer 82, Est GFR (MDRD) Non-Af 68, BUN/Creatinine Ratio 10.6, Glucose 110 H, Calcium 9.1 Micro: Microbiology 12/05/23 11:42 Stool Clostridioides difficile (PCR) - Final 12/02/23 20:08 Urine Catheter - Rapp Urine Culture - Final Pseudomonas aeruginosa Physical Exam Narrative General: Resting, Cooperative, No apparent distress HEENT: Atraumatic, PERRLA, EOMI, Normocephalic Oral: Moist Mucosa Neck: Supple, No JVD Lungs: Diminished, Normal air movement, No rhonchi, No wheeze, No rales Cardiovascular: Regular rate, Regular Rhythm, Normal S1, Normal S2, No murmurs Abdomen: Soft, Non Tender, Non-Distended, No Hepato-splenomegaly Extremities: No edema, Capillary Refill Less than 3 Seconds Skin: No rashes, No breakdown Musculoskeletal: No Tenderness to Palpation of Joints or Extremities Neurological: Cranial nerves II-XII grossly intact, Motor Exam 5/5 strength throughout, Sensory exam intact to light touch and pain Psych/Mental Status: Flat Assessment & Plan Assessment/Plan (1) UTI (urinary tract infection): PLAN: Plan #1. Acute metabolic encephalopathy, multifactorial secondary to Acute Complicated UTI with Colovesical Fistula on top of chronic dementia, complicated by recent admission and ED visits: The patient is admitted to [facility] upon ED evaluation remarkable nitrite positive, LE 500, RBC more than 100 WBC more than 100 cells and prelim urine culture shows GNR more than 100,000 colonies therefore continue empiric IV ceftriaxone Patient does not have leukocytosis or acute change in and CBC said mild decrease in platelet count from 173 K to 147 K. Chronic constipation but does not history of cirrhosis. Lactulose for constipation. I feel patient is medically stable for crisis management team to evaluate for suicidal ideation. Patient is stated that she wanted to hang herself with the oxygen tubing. 12/04: Patient on multiple antipsychotic medications including haloperidol 2 mg twice daily, mirtazapine 7.5 mg nightly, lorazepam as needed, olanzapine 5 mg twice daily, donezepil, and sertraline. Haloperidol scheduled discontinued only IM as needed for agitation. Orientation cues. Urine culture growing Pseudomonas aeruginosa more than 100,000 sensitive to Zosyn, meropenem, tobramycin and gentamicin. I will change to Zosyn. Patient is having diarrhea about 4-5 times yesterday and today 2 times liquid therefore lactulose discontinued. 12/05/2023: Pseudomonas is fairly resistant, continue with Zosyn 12/06/2023: Continue with IV Zosyn she is completed 2 days worth so far currently pending evaluation for SNF placement #2. Chronic dementia-as per the daughter she had intermittent repeating of questions and she was living well with the family recently. Complicates care, medical course, recovery, and prognosis #4 chronic kidney disease stage IIIa-at baseline, will monitor #5 recent recovery from COVID-19 infection with superimposed RLL bacterial pneumonia: During previous hospitalization,-patient completed medical course for COVID-19 #6 type 2 diabetes-1 Accu-Chek insulin coverage Humalog sliding scale. Glucose was 110. #8 chronic obstructive pulmonary disease-complicates care, medical course, recovery, and prognosis. Patient was on 2 L of oxygen after discharge but currently patient pulse ox of 94% on room air. Not in exacerbation. Mostly due to recent COVID #9 essential hypertension-blood pressure is controlled. #10 recent history of C. difficile positive for PCR without detectable toxin-patient completed course of vancomycin oral, completed 12/01/2023.. #11 Chronic heart failure with preserved ejection fraction: Patient on Lasix. Was never acute DVT: Lovenox Charges/Coding Visit Charges Inpatient E&M: 13468 Subs Hosp L2
[2023-12-06] MEDS: Insulin Lispro 100 UNIT/ML INSULN.PEN SC (11:34)
--- NOTE | 2023-12-06 11:53 | CASEMGMT ---
Social Work [facility] plans to send someone to visit pt onsite. SW will continue to follow. GOGO Calixto
[2023-12-06 11:55] LABS: Bedside Glucose 158 mg/dL (74-106)
[2023-12-06 14:30] VITALS: BP 111/76; PULSE 81; RESP 18; TEMP 36.6; O2SAT 97
--- NOTE | 2023-12-06 16:00 | CASEMGMT ---
Social Work - Medicaid application update Receive email communication from Aimee at [facility]. Aimee reports has been able to speak with patient's daughter Brandy, and Medicaid application has been initiated. Generally reports will communicate pending Medicaid number when this is received. -GOGO Castillo, UTILITY DIVISION PROJECT MANAGER
--- NOTE | 2023-12-06 16:20 | CASEMGMT ---
Social Work Mely from [facility] came in to meet pt. She states that she is accepted and they started precert. SW called daughter Brandy to let her know. FAITH will continue to follow. GOGO Calixto
[2023-12-06] MEDS: LORazepam 0.5 MG Tablet PO ×2 (16:52→23:57)
[2023-12-06 17:06] LABS: Bedside Glucose 141 mg/dL (74-106)
[2023-12-06] MEDS: Mirtazapine 15 MG Tablet 7.5 MG PO (20:40)
[2023-12-06] MEDS: Donepezil HCl 10 MG Tablet PO (20:40)
[2023-12-06] MEDS: MELATONIN 10 MG TABLET PO (20:40)
[2023-12-06] MEDS: Atorvastatin Calcium 40 MG Tablet PO (20:41)
[2023-12-06 21:02] VITALS: BP 110/53; PULSE 85; RESP 18; TEMP 36.6; O2SAT 94
[2023-12-06 21:16] LABS: Bedside Glucose 129 mg/dL (74-106)
--- NOTE | 2023-12-06 21:31 | NURSING ---
Pt continues to yell to yell help. When asked what she needs pt said she has to void. Pt has a cath and pt is unable to reason with. Pt yelling so loud you can hear her at the elevators. Tv put on for distraction.
--- NOTE | 2023-12-06 22:17 | NURSING ---
Pt continue to scream and yell for deniz. Unable re orient pt.
[2023-12-06] MEDS: HYDROcodone Bitartrate/Apap 5/325 Tablet PO (22:20)
[2023-12-07] MEDS: Piperacil/Tazobactam 3.375 GM in 0.9% Normal Saline (50mL MB+) 50 ML IV ×3 (05:25→22:05)
[2023-12-07] MEDS: Nystatin Powder 15gm Bottle 1 APPLIC TOPICAL ×3 (05:25→21:48)
[2023-12-07 06:00] VITALS: BMI 47.7
[2023-12-07 06:21] VITALS: BP 124/70; PULSE 68; RESP 16; TEMP 36.8; O2SAT 98
[2023-12-07 06:56] LABS: Bedside Glucose 90 mg/dL (74-106)
[2023-12-07 07:28] LABS: Absolute Neutrophil Count 2.6 X10^3/uL (2.0-7.7); Basophil# 0.06 X10^3/uL; Basophil% 1.2 % (0-1); Eosinophil# 0.58 X10^3/uL; Eosinophils% 11.7 % (0-5); Hematocrit 36.8 % (37-47); Hemoglobin 9.8 g/dL (12.0-15.0); Lymphocyte % 24.2 % (19-41); Mean Corp Hgb Conc 26.6 g/dL (32-36); Mean Corpuscular Hgb 22.3 pg (27.0-32.0); Mean Corpuscular Volume 83.6 fL (81-99); Monocyte% 10.1 % (0-10); NRBC Flagged by Analyzer 0 % (0-5); Neutrophil # 2.61 X10^3/uL (2.7-7.7); Neutrophil % 52.6 % (47-70); POSITIVE MORPHOLOGY YES; Platelet Count 146 K/mm3 (150-450); RBC Distribution Width CV 20.2 % (11.6-14.6); RBC Distribution Width SD 59.8 fl (35.1-43.9)
[2023-12-07 07:33] LABS: Differential Indicated SCAN CRITERIA MET
[2023-12-07 07:48] LABS: Anion Gap 2 (5-15); BUN 8 mg/dL (7-18); Calcium,Total 9.4 mg/dL (8.5-10.1); Chloride 108 mmol/L (98-107); EST Glomerular Filtration Rate 57 mL/min (>60); Est Glom Filt Rate - Afr Amer 68 mL/min (>60); Estimated Creatinine Clearance 60.23 ml/min; Glucose 112 mg/dL (74-106); Potassium 3.9 mmol/L (3.5-5.1); Sodium Level 145 mmol/L (136-145)
[2023-12-07 07:56] LABS: Hypochromasia 1+
[2023-12-07] MEDS: Aspirin 81 MG TAB.CHEW PO (10:04)
[2023-12-07] MEDS: Phenazopyridine 95 MG Tablet PO ×3 (10:04→17:10)
[2023-12-07] MEDS: Haloperidol 1 MG Tablet 2 MG PO ×2 (10:05→21:48)
[2023-12-07] MEDS: Sertraline 50 MG Tablet PO (10:05)
[2023-12-07] MEDS: Enoxaparin 40 MG/0.4 ML Syringe SC ×2 (10:05→21:48)
[2023-12-07] MEDS: Furosemide 20 MG Tablet PO ×2 (10:05→17:10)
[2023-12-07] MEDS: Potassium Chloride Oral Tablet 20 MEQ 40 MEQ PO (10:05)
[2023-12-07] MEDS: Pantoprazole Sodium 40 MG Tablet PO (10:05)
[2023-12-07] MEDS: Menthol/Lanolin/Calamine/Znox 113 GM Tube 1 APPLIC TOPICAL ×4 (10:06→21:47)
[2023-12-07] MEDS: OLANZapine 5 MG/TAB TAB.RAPDIS 10 MG PO ×2 (10:07→21:49)
[2023-12-07 10:10] VITALS: BP 117/65; PULSE 88; RESP 18; TEMP 36.6; O2SAT 97
--- NOTE | 2023-12-07 11:17 | CASEMGMT ---
Social Work SW received a call from Meghana at [facility] who was inquiring about pt return to their facility. FAITH updated Meghana that pt is choosing to go to another facility. Plan: [facility], pending KIKO Clements
[2023-12-07] MEDS: Insulin Lispro 100 UNIT/ML INSULN.PEN SC (11:36)
--- NOTE | 2023-12-07 11:55 | PN.HOSP_ITS ---
Subjective Subjective Intermittent agitation with confusion. No issues overnight Objective Data Objective Data Vital Signs: Vital Signs Temp Pulse Resp BP Pulse Ox O2 Del Method O2 Flow Rate 98 F 88 18 117/65 97 Nasal Cannula 3 12/07/23 10:10 12/07/23 10:10 12/07/23 10:10 12/07/23 10:10 12/07/23 10:10 12/07/23 10:28 12/07/23 10:28 Oxygen Flow Rate (L/min) 3 Oxygen Delivery Method Nasal Cannula Weight: 297 lb 2.93 oz Body Mass Index (BMI) 47.7 Intake & Output: Intake and Output for Last 24 Hours 12/06/23 12/07/23 12/08/23 03:59 03:59 03:59 Intake Total 500 / 500 320 / 320 50 / 50 Output Total 1450 / 1450 300 / 300 500 / 500 Balance -950 / -950 20 / 20 -450 / -450 Lab / Micro Data 12/07/23 07:13 12/07/23 07:13 Labs: Laboratory Results - last 24 hr 12/06/23 11:33: POC Glucose 158 H 12/06/23 16:47: POC Glucose 141 H 12/06/23 20:39: POC Glucose 129 H 12/07/23 06:17: POC Glucose 90 12/07/23 07:13: WBC 5.0, RBC 4.40, Hgb 9.8 L, Hct 36.8 L, MCV 83.6, MCH 22.3 L, MCHC 26.6 L, RDW Std Deviation 59.8 H, RDW Coeff of Esvin 20.2 H, Plt Count 146 L, MPV 11.0, Immature Gran % (Auto) 0.200, Neut % (Auto) 52.6, Lymph % (Auto) 24.2, [place] % (Auto) 10.1 H, Eos % (Auto) 11.7 H, Baso % (Auto) 1.2 H, Absolute Neuts (auto) 2.6, Absolute Lymphs (auto) 1.20, Nucleated RBC % 0, Hypochromasia 1+, Sodium 145, Potassium 3.9, Chloride 108 H, Carbon Dioxide 35.0 H, Anion Gap 2 L, BUN 8, Creatinine 1.00, Estim Creat Clear Calc 60.23, Est GFR (MDRD) Af Amer 68, Est GFR (MDRD) Non-Af 57 L, BUN/Creatinine Ratio 8.0 L, Glucose 112 H, Calcium 9.4 Micro: Microbiology 12/05/23 11:42 Stool Clostridioides difficile (PCR) - Final 12/02/23 20:08 Urine Catheter - Rapp Urine Culture - Final Pseudomonas aeruginosa Physical Exam Narrative General: Resting, Cooperative, No apparent distress HEENT: Atraumatic, PERRLA, EOMI, Normocephalic Oral: Moist Mucosa Neck: Supple, No JVD Lungs: Diminished, Normal air movement, No rhonchi, No wheeze, No rales Cardiovascular: Regular rate, Regular Rhythm, Normal S1, Normal S2, No murmurs Abdomen: Soft, Non Tender, Non-Distended, No Hepato-splenomegaly Extremities: No edema, Capillary Refill Less than 3 Seconds Skin: No rashes, No breakdown Musculoskeletal: No Tenderness to Palpation of Joints or Extremities Neurological: Cranial nerves II-XII grossly intact, Motor Exam 5/5 strength throughout, Sensory exam intact to light touch and pain Psych/Mental Status: Flat Assessment & Plan Assessment/Plan (1) UTI (urinary tract infection): PLAN: Plan #1. 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 Chronic constipation but does not history of cirrhosis. Lactulose for constipation. I feel patient is medically stable for crisis management team to evaluate for suicidal ideation. Patient is stated that she wanted to hang herself with the oxygen tubing. 12/04: Patient on multiple antipsychotic medications including haloperidol 2 mg twice daily, mirtazapine 7.5 mg nightly, lorazepam as needed, olanzapine 5 mg twice daily, donezepil, and sertraline. Haloperidol scheduled discontinued only IM as needed for agitation. Orientation cues. Urine culture growing Pseudomonas aeruginosa more than 100,000 sensitive to Zosyn, meropenem, tobramycin and gentamicin. I will change to Zosyn. Patient is having diarrhea about 4-5 times yesterday and today 2 times liquid therefore lactulose discontinued. 12/05/2023: Pseudomonas is fairly resistant, continue with Zosyn 12/06/2023: Continue with IV Zosyn she is completed 2 days worth so far currently pending evaluation for SNF placement 12/07/2023: Awaiting SNF placement, will plan to complete IV antibiotics while in the hospital, I would be a little bit hesitant to place a PICC line with someone who is agitated at night at the skilled nursing when she could potentially rip it out #2. Chronic dementia-as per the daughter she had intermittent repeating of questions and she was living well with the family recently. Complicates care, medical course, recovery, and prognosis #4 chronic kidney disease stage IIIa-at baseline, will monitor #5 recent recovery from COVID-19 infection with superimposed RLL bacterial pneumonia: During previous hospitalization,-patient completed medical course for COVID-19 #6 type 2 diabetes-1 Accu-Chek insulin coverage Humalog sliding scale. Glucose was 110. #8 chronic obstructive pulmonary disease-complicates care, medical course, recovery, and prognosis. Patient was on 2 L of oxygen after discharge but currently patient pulse ox of 94% on room air. Not in exacerbation. Mostly due to recent COVID #9 essential hypertension-blood pressure is controlled. Will monitor and adjust as necessary #10 recent history of C. difficile positive for PCR without detectable toxin- patient completed course of vancomycin oral, completed 12/01/2023.. #11 Chronic heart failure with preserved ejection fraction: Patient on Lasix. Was never acute DVT: Lovenox Charges/Coding Visit Charges Inpatient E&M: 48516 Subs Hosp L2
[2023-12-07 11:56] LABS: Bedside Glucose 163 mg/dL (74-106)
[2023-12-07 14:39] VITALS: BP 94/54; PULSE 85; RESP 18; TEMP 36.9; O2SAT 95
[2023-12-07] MEDS: LORazepam 0.5 MG Tablet PO ×2 (15:21→23:51)
[2023-12-07 15:56] VITALS: BP 111/55; PULSE 89; RESP 18; TEMP 36.8; O2SAT 94
[2023-12-07] MEDS: Loperamide 2 MG Capsule PO ×2 (17:10→23:53)
[2023-12-07] MEDS: 0.9% Saline Lock 10 ML Syringe IV ×2 (17:18→21:54)
[2023-12-07 17:37] LABS: Bedside Glucose 129 mg/dL (74-106)
[2023-12-07] MEDS: Haloperidol Lactate 5 MG/ML Vial 1 MG IM (20:40)
[2023-12-07 21:45] VITALS: BP 114/83; PULSE 81; RESP 20; TEMP 37; O2SAT 95
[2023-12-07] MEDS: Donepezil HCl 10 MG Tablet PO (21:47)
[2023-12-07] MEDS: Mirtazapine 15 MG Tablet 7.5 MG PO (21:48)
[2023-12-07] MEDS: Atorvastatin Calcium 40 MG Tablet PO (21:48)
[2023-12-07] MEDS: MELATONIN 10 MG TABLET PO (21:48)
[2023-12-07] MEDS: proCHLORPERazine 10 MG/2 ML Vial 5 MG IV (21:49)
[2023-12-07] MEDS: Acetaminophen 325 MG Tablet 650 MG PO (21:49)
[2023-12-07] MEDS: HYDROcodone Bitartrate/Apap 5/325 Tablet PO (21:50)
--- NOTE | 2023-12-07 22:00 | NURSING ---
scanner in room not working. took scanner from another room room and that did not work either. rebooted computer and tried with both scanners again with no success. obtained COW; unable to log on. rebooted cow and still unable to log in. unable to scan pt or medications at this time. pt and medications verified by bhupinder andre.
[2023-12-07 22:27] LABS: Bedside Glucose 115 mg/dL (74-106)
[2023-12-08 02:02] VITALS: BP 125/60; PULSE 81; RESP 16; TEMP 36.4; O2SAT 98
[2023-12-08] MEDS: Piperacil/Tazobactam 3.375 GM in 0.9% Normal Saline (50mL MB+) 50 ML IV ×3 (05:19→21:54)
[2023-12-08] MEDS: Nystatin Powder 15gm Bottle 1 APPLIC TOPICAL ×3 (05:19→21:49)
[2023-12-08 06:00] VITALS: BMI 48.1
[2023-12-08 07:07] LABS: Bedside Glucose 96 mg/dL (74-106)
[2023-12-08 07:32] VITALS: O2SAT 93
[2023-12-08 09:32] VITALS: BP 160/75; PULSE 88; RESP 18; TEMP 36.2; O2SAT 94
[2023-12-08] MEDS: Aspirin 81 MG TAB.CHEW PO (09:34)
[2023-12-08] MEDS: OLANZapine 5 MG/TAB TAB.RAPDIS 10 MG PO (09:35)
[2023-12-08] MEDS: Haloperidol 1 MG Tablet 2 MG PO (09:35)
[2023-12-08] MEDS: Potassium Chloride Oral Tablet 20 MEQ 40 MEQ PO (09:35)
[2023-12-08] MEDS: Furosemide 20 MG Tablet PO ×2 (09:35→16:25)
[2023-12-08] MEDS: Enoxaparin 40 MG/0.4 ML Syringe SC ×2 (09:35→21:52)
[2023-12-08] MEDS: Phenazopyridine 95 MG Tablet PO ×2 (09:35→16:25)
[2023-12-08] MEDS: Pantoprazole Sodium 40 MG Tablet PO (09:35)
[2023-12-08] MEDS: Sertraline 50 MG Tablet PO (09:35)
[2023-12-08] MEDS: Menthol/Lanolin/Calamine/Znox 113 GM Tube 1 APPLIC TOPICAL ×4 (09:36→21:50)
--- NOTE | 2023-12-08 10:53 | CASEMGMT ---
Social Work [facility] has reached out and application for Medicaid has been submitted. Pending Medicaid #[id number]. Per physician, pt will likely be ready for discharge on Tuesday. FAITH provided this information to [facility]. Precert has not yet been obtained. Plan: [facility], pending precert KIKO Raygoza
--- NOTE | 2023-12-08 12:01 | CASEMGMT ---
Discharge Planning [facility] has obtained auth. SW updated. Huong Villalta, Discharge Planning Asst.
[2023-12-08] MEDS: Insulin Lispro 100 UNIT/ML INSULN.PEN SC ×2 (12:05→16:24)
--- NOTE | 2023-12-08 12:17 | CASEMGMT ---
Social Work Precert has been obtained for pt to go to [facility]. Physician updated and pt will likely be ready for dc on Tuesday. Phone call to pt's dgt Brandy and updated on acceptance and insurance authorization for [facility] and that dc will likely be tomorrow. FAITH also updated that Medicaid application has been submitted and [facility] will be reaching out for addiotional information to process the application. Kimani understanding and agreeable with dc plan. Plan: [facility], pending precert KIKO Raygoza
--- NOTE | 2023-12-08 12:23 | PN.HOSP_ITS ---
Subjective Subjective Remains confused and periodically agitated this is more significant overnight Objective Data Objective Data Vital Signs: Vital Signs Temp Pulse Resp BP Pulse Ox O2 Del Method O2 Flow Rate 97.1 F L 88 18 160/75 H 94 Nasal Cannula 3 12/08/23 09:32 12/08/23 09:32 12/08/23 09:32 12/08/23 09:32 12/08/23 09:32 12/08/23 09:46 12/08/23 09:46 Oxygen Flow Rate (L/min) 3 Oxygen Delivery Method Nasal Cannula Weight: 299 lb 9.731 oz Body Mass Index (BMI) 48.1 Intake & Output: Intake and Output for Last 24 Hours 12/07/23 12/08/23 12/09/23 03:59 03:59 03:59 Intake Total 320 / 320 350.00 / 350.00 200 / 200 Output Total 300 / 300 500 / 500 200 / 200 Balance -150.00 / -150.00 0 / 0 Lab / Micro Data 12/07/23 07:13 12/07/23 07:13 Labs: Laboratory Results - last 24 hr 12/07/23 17:08: POC Glucose 129 H 12/07/23 22:08: POC Glucose 115 H 12/08/23 06:44: POC Glucose 96 Micro: Microbiology 12/05/23 11:42 Stool Clostridioides difficile (PCR) - Final 12/02/23 20:08 Urine Catheter - Rapp Urine Culture - Final Pseudomonas aeruginosa Physical Exam Narrative General: Resting, Cooperative, No apparent distress HEENT: Atraumatic, PERRLA, EOMI, Normocephalic Oral: Moist Mucosa Neck: Supple, No JVD Lungs: Diminished, Normal air movement, No rhonchi, No wheeze, No rales Cardiovascular: Regular rate, Regular Rhythm, Normal S1, Normal S2, No murmurs Abdomen: Soft, Non Tender, Non-Distended, No Hepato-splenomegaly Extremities: No edema, Capillary Refill Less than 3 Seconds Skin: No rashes, No breakdown Musculoskeletal: No Tenderness to Palpation of Joints or Extremities Neurological: Cranial nerves II-XII grossly intact, Motor Exam 5/5 strength thr oughout, Sensory exam intact to light touch and pain Psych/Mental Status: Flat Assessment & Plan Assessment/Plan (1) UTI (urinary tract infection): PLAN: Plan #1. 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 Chronic constipation but does not history of cirrhosis. Lactulose for constipation. I feel patient is medically stable for crisis management team to evaluate for suicidal ideation. Patient is stated that she wanted to hang herself with the oxygen tubing. 12/04: Patient on multiple antipsychotic medications including haloperidol 2 mg twice daily, mirtazapine 7.5 mg nightly, lorazepam as needed, olanzapine 5 mg twice daily, donezepil, and sertraline. Haloperidol scheduled discontinued only IM as needed for agitation. Orientation cues. Urine culture growing Pseudomonas aeruginosa more than 100,000 sensitive to Zosyn, meropenem, tobramycin and gentamicin. I will change to Zosyn. Patient is having diarrhea about 4-5 times yesterday and today 2 times liquid therefore lactulose discontinued. 12/05/2023: Pseudomonas is fairly resistant, continue with Zosyn 12/06/2023: Continue with IV Zosyn she is completed 2 days worth so far currently pending evaluation for SNF placement 12/07/2023: Awaiting SNF placement, will plan to complete IV antibiotics while in the hospital, I would be a little bit hesitant to place a PICC line with someone who is agitated at night at the retirement when she could potentially rip it out 12/08/2023: She will complete 5 days of appropriate antibiotic therapy tomorrow at noon at which point can be discharged to SNF. I had a 20-minute discussion with the family on advance care planning in the understand her prognosis specially the continued risk of recurrent UTIs with her colovesicular fistula. #2. Chronic dementia-as per the daughter she had intermittent repeating of questions and she was living well with the family recently. Complicates care, medical course, recovery, and prognosis #4 chronic kidney disease stage IIIa-at baseline, will monitor #5 recent recovery from COVID-19 infection with superimposed RLL bacterial pneumonia: During previous hospitalization,-patient completed medical course for COVID-19 #6 type 2 diabetes-1 Accu-Chek insulin coverage Humalog sliding scale. Glucose was 110. #8 chronic obstructive pulmonary disease-complicates care, medical course, recovery, and prognosis. Patient was on 2 L of oxygen after discharge but currently patient pulse ox of 94% on room air. Not in exacerbation. Mostly due to recent COVID #9 essential hypertension-blood pressure is controlled. Will monitor and adjust as necessary #10 recent history of C. difficile positive for PCR without detectable toxin- patient completed course of vancomycin oral, completed 12/01/2023.. #11 Chronic heart failure with preserved ejection fraction: Patient on Lasix. Was never acute DVT: Lovenox Charges/Coding Visit Charges Inpatient E&M: 58600 Subs Hosp L2 Procedures Hospitalists Procedures: 96219 Advncd Care Plan 30 Min
[2023-12-08 12:41] LABS: Bedside Glucose 164 mg/dL (74-106)
[2023-12-08] MEDS: Loperamide 2 MG Capsule PO (13:15)
[2023-12-08] MEDS: LORazepam 0.5 MG Tablet PO ×2 (13:15→19:37)
[2023-12-08] MEDS: 0.9% Saline Lock 10 ML Syringe IV (13:56)
[2023-12-08 14:22] VITALS: BP 117/57; PULSE 94; RESP 18; TEMP 36.8; O2SAT 94
[2023-12-08 16:46] LABS: Bedside Glucose 390 mg/dL (74-106)
--- NOTE | 2023-12-08 16:50 | NURSING ---
Pt has been saying her vagina aly and she feels like she has to void. She has a steiner in and minimal output today. Stood pt up to check to see if she has a kink in Steiner. Nothing drained out and so we scanned the pt bladder and she has nothing in it. Melanie care was done and provided fresh water. Encouraged her to drink more.
[2023-12-08] MEDS: HYDROcodone Bitartrate/Apap 5/325 Tablet PO (18:18)
[2023-12-08 20:30] VITALS: BP 144/68; PULSE 81; RESP 15; TEMP 36.8; O2SAT 93
[2023-12-08 22:00] VITALS: RESP 15
[2023-12-08 22:09] LABS: Bedside Glucose 114 mg/dL (74-106)
[2023-12-09] VITALS: BP 140/60; PULSE 87; RESP 15; TEMP 36.6; O2SAT 94
[2023-12-09] MEDS: Haloperidol 1 MG Tablet 2 MG PO ×2 (00:28→11:29)
[2023-12-09] MEDS: Atorvastatin Calcium 40 MG Tablet PO (00:29)
[2023-12-09] MEDS: Donepezil HCl 10 MG Tablet PO (00:29)
[2023-12-09] MEDS: Mirtazapine 15 MG Tablet 7.5 MG PO (00:29)
[2023-12-09] MEDS: MELATONIN 10 MG TABLET PO (00:29)
[2023-12-09 03:55] VITALS: BP 121/71; PULSE 86; RESP 15; TEMP 36.4; O2SAT 93
[2023-12-09] MEDS: Nystatin Powder 15gm Bottle 1 APPLIC TOPICAL (05:07)
[2023-12-09] MEDS: Piperacil/Tazobactam 3.375 GM in 0.9% Normal Saline (50mL MB+) 50 ML IV ×2 (05:07→11:28)
[2023-12-09 05:55] VITALS: BMI 49.5
[2023-12-09 06:18] LABS: Absolute Neutrophil Count 3.3 X10^3/uL (2.0-7.7); Basophil# 0.04 X10^3/uL; Basophil% 0.8 % (0-1); Eosinophil# 0.44 X10^3/uL; Eosinophils% 8.4 % (0-5); Hematocrit 34.1 % (37-47); Hemoglobin 9.3 g/dL (12.0-15.0); Lymphocyte % 17.2 % (19-41); Mean Corp Hgb Conc 27.3 g/dL (32-36); Mean Corpuscular Hgb 22.2 pg (27.0-32.0); Mean Corpuscular Volume 81.6 fL (81-99); Mean Platelet Vol. 11.3 fl (6.2-12.0); Monocyte# 0.56 X10^3/uL; Monocyte% 10.7 % (0-10); NRBC Flagged by Analyzer 0 % (0-5); Neutrophil # 3.27 X10^3/uL (2.7-7.7); Neutrophil % 62.3 % (47-70); POSITIVE MORPHOLOGY YES; Platelet Count 149 K/mm3 (150-450); RBC Distribution Width CV 20.7 % (11.6-14.6); RBC Distribution Width SD 59.7 fl (35.1-43.9); Red Blood Count 4.18 M/mm3 (4.2-5.4); White Blood Count 5.2 K/mm3 (4.4-11.0)
[2023-12-09 06:46] LABS: Anion Gap 1 (5-15); BUN 12 mg/dL (7-18); BUN/Creat Ratio 11.3 RATIO (10-20); Calcium,Total 9.4 mg/dL (8.5-10.1); Chloride 106 mmol/L (98-107); Creatinine, Serum 1.06 mg/dL (0.55-1.02); EST Glomerular Filtration Rate 53 mL/min (>60); Est Glom Filt Rate - Afr Amer 64 mL/min (>60); Estimated Creatinine Clearance 58.06 ml/min; Glucose 114 mg/dL (74-106); Potassium 3.7 mmol/L (3.5-5.1); Sodium Level 142 mmol/L (136-145)
[2023-12-09 06:58] LABS: Differential Indicated SCAN CRITERIA MET
[2023-12-09 07:12] LABS: Bedside Glucose 103 mg/dL (74-106)
[2023-12-09 07:46] LABS: Anisocytosis 2+; Differential Comment SCANNED
[2023-12-09] MEDS: Furosemide 20 MG Tablet PO (08:27)
[2023-12-09] MEDS: Aspirin 81 MG TAB.CHEW PO (08:27)
[2023-12-09] MEDS: Potassium Chloride Oral Tablet 20 MEQ 40 MEQ PO (08:27)
[2023-12-09] MEDS: Phenazopyridine 95 MG Tablet PO ×2 (08:27→11:29)
[2023-12-09] MEDS: Menthol/Lanolin/Calamine/Znox 113 GM Tube 1 APPLIC TOPICAL (08:28)
[2023-12-09] MEDS: Enoxaparin 40 MG/0.4 ML Syringe SC (08:28)
[2023-12-09] MEDS: Pantoprazole Sodium 40 MG Tablet PO (08:29)
[2023-12-09] MEDS: OLANZapine 5 MG/TAB TAB.RAPDIS 10 MG PO (08:29)
[2023-12-09] MEDS: Sertraline 50 MG Tablet PO (08:29)
[2023-12-09 08:35] VITALS: BP 141/60; PULSE 90; RESP 16; TEMP 36.7; O2SAT 93
--- NOTE | 2023-12-09 10:30 | TREXTCAR_ITS ---
Diet Diet Order/Speech Therapy: 12/02/23 22:41 Diet: Consistent Carb - Calorie Controlled Food consistency:: Regular Liquid Consistency:: Regular/Thin Dietary Modifications:: Cardiac / Heart Healthy Sodium Restricted Is pt able to select menu?: No How many daily calories?: 1800 calorie Routine Orders/Code Status Routine Lab Work: CBC and BMP Code Status: DNRCC-A Wound(s) RT 2ND TOE: Wound Type: Abrasion LEFT 2ND TOE: Wound Type: Abrasion Therapies Physical Therapy: Eval and Treat Occupational Therapy: Eval and Treat Problem/Diagnosis (1) UTI (urinary tract infection): Status: Acute Code(s): N39.0 - Urinary tract infection, site not specified Plan #1. 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 Chronic constipation but does not history of cirrhosis. Lactulose for constipation. I feel patient is medically stable for crisis management team to evaluate for suicidal ideation. Patient is stated that she wanted to hang herself with the oxygen tubing. 12/04: Patient on multiple antipsychotic medications including haloperidol 2 mg twice daily, mirtazapine 7.5 mg nightly, lorazepam as needed, olanzapine 5 mg twice daily, donezepil, and sertraline. Haloperidol scheduled discontinued only IM as needed for agitation. Orientation cues. Urine culture growing Pseudomonas aeruginosa more than 100,000 sensitive to Zosyn, meropenem, tobramycin and gentamicin. I will change to Zosyn. Patient is having diarrhea about 4-5 times yesterday and today 2 times liquid therefore lactulose discontinued. 12/05/2023: Pseudomonas is fairly resistant, continue with Zosyn 12/06/2023: Continue with IV Zosyn she is completed 2 days worth so far currently pending evaluation for SNF placement 12/07/2023: Awaiting SNF placement, will plan to complete IV antibiotics while in the hospital, I would be a little bit hesitant to place a PICC line with someone who is agitated at night at the [facility] when she could potentially rip it out 12/08/2023: She will complete 5 days of appropriate antibiotic therapy tomorrow at noon at which point can be discharged to SNF. I had a 20-minute discussion with the family on advance care planning in the understand her prognosis specially the continued risk of recurrent UTIs with her colovesicular fistula. #2. Chronic dementia-as per the daughter she had intermittent repeating of questions and she was living well with the family recently. Complicates care, medical course, recovery, and prognosis #4 chronic kidney disease stage IIIa-at baseline, will monitor #5 recent recovery from COVID-19 infection with superimposed RLL bacterial pneumonia: During previous hospitalization,-patient completed medical course for COVID-19 #6 type 2 diabetes-1 Accu-Chek insulin coverage Humalog sliding scale. Glucose was 110. #8 chronic obstructive pulmonary disease-complicates care, medical course, recovery, and prognosis. Patient was on 2 L of oxygen after discharge but currently patient pulse ox of 94% on room air. Not in exacerbation. Mostly due to recent COVID #9 essential hypertension-blood pressure is controlled. Will monitor and adjust as necessary #10 recent history of C. difficile positive for PCR without detectable toxin- patient completed course of vancomycin oral, completed 12/01/2023.. #11 Chronic heart failure with preserved ejection fraction: Patient on Lasix. Was never acute DVT: Lovenox Allergies/Procedures Done in Hospital Allergies Iodinated Contrast Media [DYEE] Allergy (Verified 12/02/23 19:03) Other morphine Adverse Reaction (Verified 12/02/23 19:03) Shortness of breath tramadol [From Ultram] Adverse Reaction (Verified 12/02/23 19:03) Other trazodone Adverse Reaction (Verified 12/02/23 19:03) Other Procedures: None Type of Care/Length of Stay Estimated LOS: More Than 30 Days Type of Care Needed: Skilled Rehab Potential: Fair Prognosis: Fair Additional Orders/Day of Discharge Additional Orders: Referral for Palliative Care once pt returns to the nursing facility Day of Discharge: 12/09/23 Dietary and Speech Recommendations Dietitian Recommendations/Changes: Will adjust diet to 1800 Calorie/Consistent Carbohydrate; Cardiac/sodium-restricted. Fluid restriction as indicated per physician. ONS not indicated at this time. Plans for SNF at d/c. Discharge Plan Admission Admit Date/Time: 12/02/23 22:02 Attending Provider: Alex Cunningham Primary Care Provider: Leno Son Consulting Providers: Myesha Child; Sha Sharpe Discharge Orders/Prescriptions Prescriptions: New acidophilus-pectin, citrus 25 million cell -100 mg Tablet 1 tab PO BID Qty: 0 0RF Continued atorvastatin 40 MG tablet 40 mg PO QHS albuterol sulfate 2.5 MG/3 ML solution for nebulization 2.5 mg inhalation Q6H PRN PRN (Reason: Wheezing) aspirin 81 MG tablet,chewable 81 mg PO DAILY@0800 furosemide 20 MG tablet 20 mg PO BIDCM haloperidol 2 mg tablet 2 mg PO BID Patient Comments: for 7 day; end date 12/08/2023 olanzapine 5 mg tablet 5 mg PO BID phenazopyridine 100 mg tablet 100 mg PO Q8H Patient Comments: END DATE 12/04/2023 donepezil 10 mg tablet 10 mg PO QHS mirtazapine 7.5 mg tablet 7.5 mg PO QHS sertraline 50 mg tablet 50 mg PO Q24H acetaminophen 325 mg Tablet 650 mg PO Q4H PRN PRN (Reason: Fever, pain 1-08/16) Qty: 0 0RF ipratropium-albuterol 0.5 mg-3 mg(2.5 mg base)/3 mL Solution For Nebulization 3 ml inhalation Q6HWA.RT Qty: 1 0RF miconazole nitrate [Desenex] 2 % Powder 1 applic topical TID Qty: 0 0RF Protocol: *Topical Application Instructions APPLICATION INSTRUCTIONS: apply to abdominal and breasts folds Patient Comments: to breast for yeast infection olanzapine 2.5 mg Tablet 2.5 mg PO BID Qty: 0 0RF potassium chloride 20 mEq Tablet,Er Particles/Crystals 40 meq PO DAILYCM Qty: 0 0RF pantoprazole 40 mg Tablet,Delayed Release (Dr/Ec) 40 mg PO DAILY Qty: 0 0RF lorazepam 1 mg Tablet 1 mg PO Q6H PRN PRN (Reason: Anxiety/Agitation) Qty: 8 0RF menthol-zinc oxide [Calmoseptine] 0.44-20.6 % Ointment 1 applic topical 4X/DAY Qty: 0 0RF Protocol: *Topical Application Instructions APPLICATION INSTRUCTIONS: apply to affected region vancomycin [Firvanq] 25 mg/mL Recon Soln 125 mg PO Q6 Qty: 0 0RF Rx Instructions: continue for 10 days-stop on 12/01/23 Discontinued cefdinir 300 mg capsule 300 mg PO BID Patient Comments: for 5 days; started 11/30/23 hydrocodone-acetaminophen 5-325 mg tablet 1 tab PO Q8H PRN (Reason: pain) Patient Comments: take 1 tablet by mouth every 8 hours if needed Referrals / Follow Up: Leno Son MD [Primary Care Provider] - Disposition Disposition (needs filled in before D/C Order can be placed): [facility]
--- NOTE | 2023-12-09 11:01 | CASEMGMT ---
Social Work Per physician pt is ready for discharge today. FAITH spoke with pt's dgt Aggie on the phone regarding pt. Aggie asking if pt can discharge to the Inpatient Rehab unit. FAITH explained that pt does not qualify for this level of care. Aggie agreeable to proceed with dc to [facility]. Aggie requesting SW complete HCPOA with pt. FAITH explained that pt must be cognitively intact to complete this paperwork and at this time pt is not able to do this. FAITH explained that with no HCPOA, pt's two daughters are the joint decision makers for health decisions. Aggie is understanding. DC field administrative assistant completed discharge. Transportation arranged for 1230 pickup. FAITH updated Aggie and pt's nurse. Disposition: [facility], skilled level of care KIKO Raygoza
--- NOTE | 2023-12-09 11:09 | CASEMGMT ---
Discharge Planning Discharge orders, signed med list, and transport time sent via [facility] to [facility]. Physicians will transport patient by cot at 12:30p. Nursing and SW updated. Huong Villalta, Discharge Planning Asst.
--- NOTE | 2023-12-09 11:57 | PHA.DC_ITS ---
Pharmacy [place] Med Reconciliation Pharmacy Service has performed discharge medication reconciliation for this patient upon transfer to [facility]. The patient's discharge medication list was reviewed for discrepancies and discrepancies were resolved. Medications at Discharge Home Medications albuterol sulfate 2.5 mg/3 mL (0.083 %) solution for nebulization 2.5 mg inhalation Q6H PRN PRN Wheezing 01/14/18 aspirin 81 mg chewable tablet 81 mg PO DAILY@0800 01/14/18 atorvastatin 40 mg tablet 40 mg PO QHS 01/14/18 furosemide 20 mg tablet 20 mg PO BIDCM 01/14/18 donepezil 10 mg tablet 10 mg PO QHS 11/06/23 mirtazapine 7.5 mg tablet 7.5 mg PO QHS depression 11/06/23 sertraline 50 mg tablet 50 mg PO Q24H 11/06/23 acetaminophen 325 mg tablet 650 mg (2 x 325 mg) PO Q4H PRN PRN Fever, pain 1- 08/16 #0 tabs 11/21/23 ipratropium 0.5 mg-albuterol 3 mg (2.5 mg base)/3 mL nebulization soln 3 ml inhalation Q6HWA.RT #1 mL 11/21/23 lorazepam 1 mg tablet 1 mg PO Q6H PRN PRN Anxiety/Agitation #8 tabs 11/21/23 menthol 0.44 %-zinc oxide 20.6 % topical ointment (Calmoseptine) 1 applic topical 4X/DAY #0 grams 11/21/23 miconazole nitrate 2 % topical powder (Desenex) 1 applic topical TID #0 grams 11/21/23 olanzapine 2.5 mg tablet 2.5 mg PO BID #0 tabs 11/21/23 pantoprazole 40 mg tablet,delayed release 40 mg PO DAILY GERD #0 tabs 11/21/23 potassium chloride 20 mEq tablet,extended release(part/cryst) 40 meq (2 x 20 mEq) PO DAILYCM #0 tabs 11/21/23 vancomycin 25 mg/mL oral solution (Firvanq) 125 mg (5 mL) PO Q6 #0 mL 11/21/23 haloperidol 2 mg tablet 2 mg PO BID acute psychosis 12/02/23 olanzapine 5 mg tablet 5 mg PO BID schizophrenia 12/02/23 phenazopyridine 100 mg tablet 100 mg PO Q8H 12/02/23 acidophilus 25 million cell-pectin, citrus 100 mg tablet 1 tab PO BID #0 tabs 12/09/23
[2023-12-09 12:10] LABS: Bedside Glucose 145 mg/dL (74-106)
--- NOTE | 2023-12-09 12:22 | DS.PCM_ITS ---
Providers Date of Admission: 12/02/23 Primary Care Physician: Dr. Leno Son MD Reason For Visit: COMPLICATED UTI, ENCEPHALOPATHY, SUICIDAL IDEATION Diagnosis Discharge Diagnosis (1) UTI (urinary tract infection): Status: Acute Code(s): N39.0 - Urinary tract infection, site not specified Medications at Discharge Home Medications albuterol sulfate 2.5 mg/3 mL (0.083 %) solution for nebulization 2.5 mg inha lation Q6H PRN PRN Wheezing 01/14/18 aspirin 81 mg chewable tablet 81 mg PO DAILY@0800 01/14/18 atorvastatin 40 mg tablet 40 mg PO QHS 01/14/18 furosemide 20 mg tablet 20 mg PO BIDCM 01/14/18 donepezil 10 mg tablet 10 mg PO QHS 11/06/23 mirtazapine 7.5 mg tablet 7.5 mg PO QHS depression 11/06/23 sertraline 50 mg tablet 50 mg PO Q24H 11/06/23 acetaminophen 325 mg tablet 650 mg (2 x 325 mg) PO Q4H PRN PRN Fever, pain - 08/16 #0 tabs 11/21/23 ipratropium 0.5 mg-albuterol 3 mg (2.5 mg base)/3 mL nebulization soln 3 ml inhalation Q6HWA.RT #1 mL 11/21/23 lorazepam 1 mg tablet 1 mg PO Q6H PRN PRN Anxiety/Agitation #8 tabs 11/21/23 menthol 0.44 %-zinc oxide 20.6 % topical ointment (Calmoseptine) 1 applic topical 4X/DAY #0 grams 11/21/23 miconazole nitrate 2 % topical powder (Desenex) 1 applic topical TID #0 grams 11/21/23 olanzapine 2.5 mg tablet 2.5 mg PO BID #0 tabs 11/21/23 pantoprazole 40 mg tablet,delayed release 40 mg PO DAILY GERD #0 tabs 11/21/23 potassium chloride 20 mEq tablet,extended release(part/cryst) 40 meq (2 x 20 mEq) PO DAILYCM #0 tabs 11/21/23 vancomycin 25 mg/mL oral solution (Firvanq) 125 mg (5 mL) PO Q6 #0 mL 11/21/23 haloperidol 2 mg tablet 2 mg PO BID acute psychosis 12/02/23 olanzapine 5 mg tablet 5 mg PO BID schizophrenia 12/02/23 phenazopyridine 100 mg tablet 100 mg PO Q8H 12/02/23 acidophilus 25 million cell-pectin, citrus 100 mg tablet 1 tab PO BID #0 tabs 12/09/23 Hospital Course Operations None Procedures None Summary of Care Provided Minutes Spent on Discharge: 39 Hospital Course: Per HPI:The patient is an 83 y/o F w/ PMHx: 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 CKD stage IIIa, HTN, HLD, TACO on CPAP, Anxiety and Depression, HFpEF, Diabetes mellitus type II, COPD, recent prolonged admission 11/06/23-11/21/23 secondary to acute hypoxic and hypercarbic respiratory failure secondary to underlying COVID-19 infection with superimposed right lower lobe bacterial community-acquired pneumonia as well as acute diastolic heart failure treated with remdesivir and IV Decadron with associated acute encephalopathy complicated by underlying chronic dementia with concurrent stool positive C. difficile without detectable toxin with given loose stools treatment of oral vancomycin secondary to diarrhea who now re-presents to the [facility] ED on 12/02/23 with history of increased and continued confusion with intermittent threats to hurt herself initially transition to rehab even returning to the ER at least 2-3 times since discharge secondary to confusion with hospitalization at [place] 2 days prior with diagnosis of UTI at that time started on cefdinir with ongoing confusion and intermittent statements reportedly of wanting to hang yourself with her oxygen tubing constantly scratching her face and then reportedly saying staff is trying to hurt her and responsible for these injuries prompting return to ED. Workup in the ED included T96.5, heart 94, BP 144/122, respiratory rate 18, 95% on room air initially eventually placed on 2 L nasal cannula with most recent vital signs heart rate 82, BP 124/78, respiratory rate 21, 92% on 2 L nasal cannula, CBC with WBC 6.0, hemoglobin 10.8, MCV 82.9, platelet 147 without marked shift, unremarkable coags, ABG with pH 7.33, bicarb 33.6, O2 saturation 90%, pCO2 63.2, pO2 65, CMP with chloride 108, Comvax at 35, BUN/creatinine 16/1.12, glucose 110 otherwise not marked appearing, lactic acid 1.1, urine noted to be cloudy and red in appearance, specific gravity elevated 1.030, protein 100, occult blood 250, positive nitrite, bilirubin 6, urobilinogen 6, leukocyte Estrace 500 with greater than 100 urine RBCs and WBCs with rare bacteria noted with urine culture pending, chest x-ray with involutional changes with sequelae of sinus disease with no acute intracranial findings. In the ED patient ministered Rocephin 1 g IV x 1. Review of prior urine culture 11/06/2023 with E. coli and Pseudomonas although E. coli 80,000-100,000 and Pseudomonas less than at thousand thus pos sibly component of colonization given history with significant minor sensitivity noted. Hospital course: #1. Acute metabolic encephalopathy, multifactorial secondary to Acute Complicated UTI with Colovesical Fistula on top of chronic dementia, complicated by recent admission and ED visits: The patient is admitted to [facility] upon ED evaluation remarkable nitrite positive, LE 500, RBC more than 100 WBC more than 100 cells and prelim urine culture shows GNR more than 100,000 colonies therefore continue empiric IV ceftriaxone Patient does not have leukocytosis or acute change in and CBC said mild decrease in platelet count from 173 K to 147 K. Chronic constipation but does not history of cirrhosis. Lactulose for constipation. I feel patient is medically stable for crisis management team to evaluate for suicidal ideation. Patient is stated that she wanted to hang herself with the oxygen tubing. 12/04: Patient on multiple antipsychotic medications including haloperidol 2 mg twice daily, mirtazapine 7.5 mg nightly, lorazepam as needed, olanzapine 5 mg twice daily, donezepil, and sertraline. Haloperidol scheduled discontinued only IM as needed for agitation. Orientation cues. Urine culture growing Pseudomonas aeruginosa more than 100,000 sensitive to Zosyn, meropenem, tobramycin and gentamicin. I will change to Zosyn. Patient is having diarrhea about 4-5 times yesterday and today 2 times liquid therefore lactulose discontinued. 12/05/2023: Pseudomonas is fairly resistant, continue with Zosyn 12/06/2023: Continue with IV Zosyn she is completed 2 days worth so far currently pending evaluation for SNF placement 12/07/2023: Awaiting SNF placement, will plan to complete IV antibiotics while in the hospital, I would be a little bit hesitant to place a PICC line with someone who is agitated at night at the [facility] when she could potentially rip it out 12/08/2023: She will complete 5 days of appropriate antibiotic therapy tomorrow at noon at which point can be discharged to SNF. I had a 20-minute discussion with the family on advance care planning in the understand her prognosis specially the continued risk of recurrent UTIs with her colovesicular fistula. 12/09/2023: She has completed 5 days of Zosyn in discussion with family they recognize that this is going to be an ongoing issue and they would like her to proceed with SNF placement for rehab prior to taking her home and going on hospice. Her home medications were reviewed and continued where appropriate #2. Chronic dementia-as per the daughter she had intermittent repeating of qu estions and she was living well with the family recently. Complicates care, medical course, recovery, and prognosis #4 chronic kidney disease stage IIIa-at baseline, will monitor #5 recent recovery from COVID-19 infection with superimposed RLL bacterial pneumonia: During previous hospitalization,-patient completed medical course for COVID-19 #6 type 2 diabetes-1 Accu-Chek insulin coverage Humalog sliding scale. Glucose was 110. #8 chronic obstructive pulmonary disease-complicates care, medical course, recovery, and prognosis. Patient was on 2 L of oxygen after discharge but currently patient pulse ox of 94% on room air. Not in exacerbation. Mostly due to recent COVID #9 essential hypertension-blood pressure is controlled. Will monitor and adjust as necessary #10 recent history of C. difficile positive for PCR without detectable toxin- patient completed course of vancomycin oral, completed 12/01/2023.. #11 Chronic heart failure with preserved ejection fraction: Patient on Lasix. Was never acute Physical Exam Narrative General: Resting, Cooperative, No apparent distress HEENT: Atraumatic, PERRLA, EOMI, Normocephalic Oral: Moist Mucosa Neck: Supple, No JVD Lungs: Diminished, Normal air movement, No rhonchi, No wheeze, No rales Cardiovascular: Regular rate, Regular Rhythm, Normal S1, Normal S2, No murmurs Abdomen: Soft, Non Tender, Non-Distended, No Hepato-splenomegaly Extremities: No edema, Capillary Refill Less than 3 Seconds Skin: No rashes, No breakdown Musculoskeletal: No Tenderness to Palpation of Joints or Extremities Neurological: Cranial nerves II-XII grossly intact, Motor Exam 5/5 strength throughout, Sensory exam intact to light touch and pain Psych/Mental Status: Flat Weight / BMI Weight Weight: 307 lb 15.772 oz Body Mass Index (BMI) 49.5 ABG / Lab / Microbiology Data 12/09/23 05:25 12/09/23 05:25 Laboratory: Laboratory Results - last 24 hr 12/08/23 12:02: POC Glucose 164 H 12/08/23 16:22: POC Glucose 390 H 12/08/23 21:41: POC Glucose 114 H 12/09/23 05:25: WBC 5.2, RBC 4.18 L, Hgb 9.3 L, Hct 34.1 L, MCV 81.6, MCH 22.2 L , MCHC 27.3 L, RDW Std Deviation 59.7 H, RDW Coeff of Esvin 20.7 H, Plt Count 149 L, MPV 11.3, Immature Gran % (Auto) 0.600, Neut % (Auto) 62.3, Lymph % (Auto) 17.2 L, Anderson % (Auto) 10.7 H, Eos % (Auto) 8.4 H, Baso % (Auto) 0.8, Absolute Neuts (auto) 3.3, Absolute Lymphs (auto) 0.90, Nucleated RBC % 0, Differential Comment SCANNED, Anisocytosis 2+, Sodium 142, Potassium 3.7, Chloride 106, Carbon Dioxide 35.0 H, Anion Gap 1 L, BUN 12, Creatinine 1.06 H, Estim Creat Clear Calc 58.06, Est GFR (MDRD) Af Amer 64, Est GFR (MDRD) Non-Af 53 L, BUN/Creatinine Ratio 11.3, Glucose 114 H, Calcium 9.4 12/09/23 06:47: POC Glucose 103 12/09/23 11:44: POC Glucose 145 H Microbiology: Microbiology 12/05/23 11:42 Stool Clostridioides difficile (PCR) - Final 12/02/23 20:08 Urine Catheter - Rapp Urine Culture - Final Pseudomonas aeruginosa Meaningful Use Info Meaningful Use Diagnoses (Choose all that apply): None applicable Discharge Plan Admission Admit Date/Time: 12/02/23 22:02 Attending Provider: Alex Cunningham Primary Care Provider: Leno Son Consulting Providers: Myesha Child; Sha Sharpe Discharge Orders/Prescriptions Prescriptions: New acidophilus-pectin, citrus 25 million cell -100 mg Tablet 1 tab PO BID Qty: 0 0RF Continued atorvastatin 40 MG tablet 40 mg PO QHS albuterol sulfate 2.5 MG/3 ML solution for nebulization 2.5 mg inhalation Q6H PRN PRN (Reason: Wheezing) aspirin 81 MG tablet,chewable 81 mg PO DAILY@0800 furosemide 20 MG tablet 20 mg PO BIDCM haloperidol 2 mg tablet 2 mg PO BID Patient Comments: for 7 day; end date 12/08/2023 olanzapine 5 mg tablet 5 mg PO BID phenazopyridine 100 mg tablet 100 mg PO Q8H Patient Comments: END DATE 12/04/2023 donepezil 10 mg tablet 10 mg PO QHS mirtazapine 7.5 mg tablet 7.5 mg PO QHS sertraline 50 mg tablet 50 mg PO Q24H acetaminophen 325 mg Tablet 650 mg PO Q4H PRN PRN (Reason: Fever, pain -08/16) Qty: 0 0RF ipratropium-albuterol 0.5 mg-3 mg(2.5 mg base)/3 mL Solution For Nebulization 3 ml inhalation Q6HWA.RT Qty: 1 0RF miconazole nitrate [Desenex] 2 % Powder 1 applic topical TID Qty: 0 0RF Protocol: *Topical Application Instructions APPLICATION INSTRUCTIONS: apply to abdominal and breasts folds Patient Comments: to breast for yeast infection olanzapine 2.5 mg Tablet 2.5 mg PO BID Qty: 0 0RF potassium chloride 20 mEq Tablet,Er Particles/Crystals 40 meq PO DAILYCM Qty: 0 0RF pantoprazole 40 mg Tablet,Delayed Release (Dr/Ec) 40 mg PO DAILY Qty: 0 0RF lorazepam 1 mg Tablet 1 mg PO Q6H PRN PRN (Reason: Anxiety/Agitation) Qty: 8 0RF menthol-zinc oxide [Calmoseptine] 0.44-20.6 % Ointment 1 applic topical 4X/DAY Qty: 0 0RF Protocol: *Topical Application Instructions APPLICATION INSTRUCTIONS: apply to affected r egion vancomycin [Firvanq] 25 mg/mL Recon Soln 125 mg PO Q6 Qty: 0 0RF Rx Instructions: continue for 10 days-stop on 12/01/23 Discontinued cefdinir 300 mg capsule 300 mg PO BID Patient Comments: for 5 days; started 11/30/23 hydrocodone-acetaminophen 5-325 mg tablet 1 tab PO Q8H PRN (Reason: pain) Patient Comments: take 1 tablet by mouth every 8 hours if needed Referrals / Follow Up: Leno Son MD [Primary Care Provider] - Disposition Disposition (needs filled in before D/C Order can be placed): Residential Facility Charges/Coding Visit Charges Inpatient E&M: 18282 Disch Hosp >30min
== END 2023-12-09 12:50 | disposition skilled nursing facility (03) | DRG 689 ==
LOC: ED 22:25 → MS3 22:33
PROVIDERS: Internal Medicine; Admitting Provider Family Medicine; Emergency Provider Emergency Medicine; PCP Family Medicine; Visit Provider Family Medicine
DX: N39.0 Urinary tract infection, site not specified (principal); G93.41 Metabolic encephalopathy; K63.2 Fistula of intestine; I13.0 Hypertensive heart and chronic kidney disease with heart failure and stage 1 through stage 4 chronic kidney disease, or unspecified chronic kidney disease; I50.32 Chronic diastolic (congestive) heart failure; Z68.42 Body mass index [BMI] 45.0-49.9, adult; F03.93 Unspecified dementia, unspecified severity, with mood disturbance; E11.22 Type 2 diabetes mellitus with diabetic chronic kidney disease; D64.9 Anemia, unspecified; B96.5 Pseudomonas (aeruginosa) (mallei) (pseudomallei) as the cause of diseases classified elsewhere; N18.31 Chronic kidney disease, stage 3a; J44.9 Chronic obstructive pulmonary disease, unspecified; F20.9 Schizophrenia, unspecified; E66.01 Morbid (severe) obesity due to excess calories; G47.33 Obstructive sleep apnea (adult) (pediatric); E78.00 Pure hypercholesterolemia, unspecified; F41.8 Other specified anxiety disorders; Z87.891 Personal history of nicotine dependence; Z79.82 Long term (current) use of aspirin; Z79.899 Other long term (current) drug therapy; Z86.16 Personal history of COVID-19
CPT/HCPCS: 36415; 36600; 70450; 80048; 80053; 80076; 81001; 82140; 82607; 82746; 82803; 82962; 83605; 83735; 84100; 85025; 85610; 85730; 87077; 87086; 87088; 87184; 87186; 87493; 93005; 94640; 94762; 97162; 97166; 97530; 97535; 97802; 97803; 99285; J7030; A4216

== ENCOUNTER 2023-12-19 02:38 | Emergency (ER) | payer MEDICARE, SELFPAY ==
[2023-12-19 02:40] VITALS: BP 121/74; PULSE 82; RESP 16; TEMP 36.6; O2SAT 99; BMI 46.5
[2023-12-19 03:12] VITALS: BP 117/84; PULSE 71; RESP 16; O2SAT 97
--- OUTSIDE RECORDS SUMMARY | 2023-12-19 03:20 | XMS RPT_ITS | CCD ---
Author Name Unknown Address [address] [place] [address] Organization [facility] Care Team Providers Care Verifying Specialist Name Role Phone LINO ZHU Unavailable Unavailable Leno Briggs Unavailable Unavailable LINO ZHU Unavailable Unavailable LINO ZHU Unavailable Unavailable Leno Briggs Unavailable Unavailable Leno Briggs MD Primary Care Provider [phone] Leno Briggs MD Primary Care Provider Leno Briggs MD Primary Care Provider Leno Briggs MD Primary Care Provider LENO BRIGGS Primary Care Unavailable MADALYN DEGROOT Referring Unavailable EUFEMIA CHAPA Attending Unavailable Leno Briggs MD Primary Care Provider Leno Briggs MD Primary Care Provider [phone] Leno Briggs MD Primary Care Provider SAMANTHA NAVA Referring Unavailable SAMANTHA NAVA Attending Unavailable SAMANTHA NAVA Admitting Unavailable LENO BRIGGS Primary Care Unavailable SHANTAL SERRANO Attending Unavailable STEPHANI CROOKS Referring Unavailable LENO BRIGGS Primary Care Unavailable SAMANTHA NAVA Attending Unavailable LENO BRIGGS Primary Care Unavailable SHANTAL SERRANO Attending Unavailable LENO BRIGGS Primary Care Unavailable LENO BRIGGS Primary Care Unavailable SHANTAL SERRANO Referring Unavailable LENO BRIGGS Primary Care Unavailable SAMANTHA NAVA Attending Unavailable LENO BRIGGS Primary Care Unavailable LENO BRIGGS MD Primary Care Physician [phone] CHASTITY TRAMMELL MD Attending Unavail able LENO BRIGGS MD Primary Care Unavailable PATSY MONTANO MD Attending Unavailable LENO BRIGGS MD Primary Care Unavailable PHYSICIAN, NONE Primary Care Unavailable MARII VAIL DO Attending Unavailable BRIGITTE, LENO A Primary Care Unavailable BRIGITTELENO SILVA A Attending Unavailable BRIGITTELENO SILVA A Primary Care Unavailable BRIGITTELENO SILVA A Attending Unavailable JEREMIAH AMEZCUA Referring Unavailable BRIGITTE, LENO A Primary Care Unavailable EUFEMIA CHAPA Referring Unavailable BRIGITTE, LENO A Primary Care Unavailable RADHA BALDWIN Attending Unavailable BRIGITTE, LENO A Primary Care Unavailable RADHA BALDWIN Referring Unavailable BRIGITTE, LENO A Primary Care Unavailable BRIGITTE, LENO A Primary Care Unavailable LEONEL OSEGUERA Attending Unavailable EUFEMIA CHAPA Referring Unavailable LEESA RAMIREZ Attending Unavailable BRIGITTE, LENO A Primary Care Unavailable STEPHANI CROOKS Referring Unavailable MADALYN DEGROOT Attending Unavailable BRIGITTE, LENO A Primary Care Unavailable STEPHANI CROOKS Referring Unavailable BRIGITTE, LENO A Primary Care Unavailable STEPHANI CROOKS Attending Unavailable BRIGITTE, LENO A Primary Care Unavailable BRIGITTE, LENO A Primary Care Unavailable BRIGITTE, LENO A Referring Unavailable BRIGITTE, LENO A Primary Care Unavailable LENO BRIGGS A Attending Unavailable Allergies Allergy Classification Reported Allergen(s) Allergy Type Date of Onset Reaction(s) Facility (20 sources) codeine; Translations: [CODEINE] Drug Allergy 10-12-20 11 Mental Status Change, Dizziness, Unknown [facility] (1 source) Contrast media; Translations: [CONTRAST DYE] Propensity to adverse reactions (disorder) [facility] (20 sources) escitalopram; Translations: [ESCITALOPRAM] Drug Allergy 05-28-20 13 Other: See Comments [facility] (20 sources) sertraline; Translations: [SERTRALINE HCL] Drug Allergy 10-12-20 11 Other: See Comments [facility] (20 sources) sulfamethoxazole / trimethoprim; Translations: [SULFAMETHOXAZOLE-T RIMETHOPRIM] Drug Allergy 01-21-20 15 Itching [facility] (20 sources) traMADol; Translations: [TRAMADOL] Drug Allergy 10-12-20 11 Other: See Comments, Dermatitis, Dizziness, Other [facility] (20 sources) Garlic preparation; Translations: [GARLIC OIL] Drug Allergy 08-09-20 Other: See Comments [facility] Work Phone: (20 sources) oxybutynin; Translations: [OXYBUTYNIN] Drug Allergy 12-03-19 Other: See Comments [facility] Work Phone: (13 sources) traZODone Drug Allergy 01-15-20 18 Other [facility] (13 sources) Iodinated Contrast Media Drug Allergy 01-15-20 18 Other [facility] (2 sources) Sertraline; Translations: [sertraline] Drug Allergy [facility] (2 sources) Sulfamethoxazole / Trimethoprim; Translations: [sulfamethoxazole-t rimethoprim] Drug Allergy [facility] Medications Current Medications Medication Drug Class(es) Dates [...] disease, without long-term current use of insulin ([facility])] Onset: 3 Disorders of lipid metabolism (20 [...] dementia severity, unspecified dementia type (HCC)] Onset: Urinary tract infections (20 sources) Chronic interstitial [...] (20 sources) Drug therapy finding; Translations: [Other [facility] (current) drug therapy] Onset: 11-25-2016 01-04-2020 Episodic Other aftercare (1 source) Other [employer] (current) drug therapy; Translations: [Medication management] Onset: [...] Heart rate 92 /min CHASTITY TRAMMELL MD [facility] 12-01-2023 09:00-0500 Respiratory rate 20 /min CHASTITY TRAMMELL MD [facility] 12-01-2023 09:00-0500 systolic 126 mm[Hg] CHASTITY TRAMMELL MD [facility] 12-01-2023 08:37-0500 systolic 56 mm[Hg] CHASITTY TRAMMELL MD [facility] 12-01-2023 06:30-0500 Diastolic Blood Pressure Non-Invasive 55 mm[Hg] CHASTITY TRAMMELL MD [facility] 12-01-2023 06:30-0500 Heart rate 88 /min CHASTITY TRAMMELL MD [facility] 12-01-2023 06:30-0500 Respiratory rate 18 /min CHASTITY TRAMMELL MD [facility] 12-01-2023 06:30-0500 Systolic Blood Pressure Non-Invasive 137 mm[Hg] CHASTITY TRAMMELL MD [facility] 12-01-2023 05:44-0500 diastolic 55 mm[Hg] CHASTITY TRAMMELL MD [facility] 12-01-2023 05:44-0500 Heart rate 87 /min CHASTITY TRAMMELL MD [facility] 12-01-2023 05:44-0500 Respiratory rate 18 /min CHASTITY TRAMMELL MD [facility] 12-01-2023 05:19-0500 diastolic 55 mm[Hg] CHASTITY TRAMMELL MD [facility] 12-01-2023 05:14-0500 Body temperature 98.06 [degF] CHASTITY TRAMMELL MD [facility] 11-23-2023 02:53-0500 Diastolic Blood Pressure Non-Invasive 87 mm[Hg] PATSY MONTANO MD [facility] 11-23-2023 02:53-0500 Heart rate 94 /min PATSY MONTANO MD [facility] 11-23-2023 02:53-0500 Respiratory rate 18 /min PATSY MONTANO MD [facility] 11-23-2023 02:53-0500 Systolic Blood Pressure Non-Invasive 141 mm[Hg] PATSY MONTANO MD [facility] 11-23-2023 00:01-0500 Body temperature 98.06 [degF] PATSY MONTANO MD [facility] 11-23-2023 00:01-0500 Diastolic Blood Pressure Non-Invasive 74 mm[Hg] PATSY MONTANO MD [facility] 11-23-2023 00:01-0500 Heart rate 100 /min PATSY MONTANO MD [facility] 11-23-2023 00:01-0500 Respiratory rate 18 /min PATSY MONTANO MD [facility] 11-23-2023 00:01-0500 Systolic Blood Pressure Non-Invasive 153 mm[Hg] PATSY MONTANO MD [facility] 06-21-2023 14:28-0400 Body weight 137.44 kg Leno Briggs MD Work Phone: [facility] 06-21-2023 14:28-0400 Diastolic blood pressure 84 mm[Hg] Leno Briggs MD Work Phone: [facility] 06-21-2023 14:28-0400 Heart rate 80 /min Leno Briggs MD Work Phone: [facility] 06-21-2023 14:28-0400 Respiratory rate 14 /min Leno Briggs MD Work Phone: [facility] 06-21-2023 14:28-0400 Systolic blood pressure 136 mm[Hg] Leno Briggs MD Work Phone: [facility] 05-25-2023 11:49-0400 Diastolic blood pressure 77 mm[Hg] Samantha Nava MD Work Phone: [facility] Encounters Encounter Date Encounter Type Care Provider Facility Start: 12-01-2023 End: 12-01-2023 Emergency department patient visit CHASTITY TRAMMELL MD Facility:B Start: 12-01-2023 End: 12-01-2023 Emergency department patient visit CHASTITY TRAMMELL MD [facility] Start: 11-23-2023 End: 11-23-2023 Emergency department patient visit PATSY MONTANO MD Facility:B Start: 11-22-2023 End: 11-23-2023 Emergency department patient visit PATSY MONTANO MD [facility] Start: 09-19-2023 ambulatory Leno silva MD Work Phone: [facility] Procedures Date Procedure Procedure Detail Performing Clinician Start: 06-21-2023 Drug tst prsmv instr mnt chem analyzers pr date Leno Briggs MD Work Phone: Start: 05-25-2023 Colonoscopy Samantha Santillan ch, MD Work Phone: Start: 05-04-2023 Cyanocobalamin vitamin b-12 Shantal Serrano 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 Work Phone: Start: 11-04-2022 INFLUENZA SEASONAL QUADRIVALENT HIGH DOSE AGE 65+ Stephani Crooks PA-C Work Phone: Start: 05-18-2022 Brncdilat rspse spmt ry pre&post-brncdilat admn Stephani Crooks PA-C Work Phone: Plan of Treatment Date Care Activity Detail Author Start: 05-25-2028 Screening for malign ant neoplasm of colon [facility] Start: 08-31-2024 3 comp foot exam completed Diabetic Foot Exam [facility] Start: 08-31-2024 Covid-19 Vaccine ( season) Covid-19 Vaccine () [facility] Immunizations Immunization Date Immunization Notes Care Provider Fa [facility] 08-31-2023 influenza (HD-IIV4) vaccine, age 65+ yr, high dose, quadrivalent, PF (FLUZONE HIGH-DOSE) Leno Briggs MD Work Phone: [facility] 08-31-2023 pneumococcal (PCV20) vaccine, 20 valent (PREVNAR 20) Leno Briggs MD Work Phone: [facility] 11-04-2022 influenza, high-dose , quadrivalent vaccine (FLUZONE HIGH DOSE QUADRIVALENT) Stephani Crooks PA-C Work Phone: [facility] 11-04-2022 influenza virus vacc ine, unspecified formulation Samantha Nava MD Work Phone: [facility] 09-03-2021 influenza, high-dose , quadrivalent vaccine (FLUZONE HIGH DOSE QUADRIVALENT) Leno Briggs MD Work Phone: [facility] 03-17-2021 COVID-19 vaccine, fu ll dose (MODERNA) Leno Briggs MD Work Phone: [facility] 02-17-2021 COVID-19 vaccine, fu ll dose (MODERNA) Leno Briggs MD Work Phone: [facility] 07-31-2019 influenza, high dose seasonal, preservative-free Leno Briggs MD Work Phone: [facility] 09-13-2018 influenza, high dose seasonal, preservative-free Leno Briggs MD Work Phone: [facility] 12-12-2017 pneumococcal polysaccharide vaccine, 23 valent Leno Briggs MD Work Phone: [facility] 09-27-2017 influenza, injectabl e, quadrivalent, contains preservative Leno Briggs MD Work Phone: [facility] 08-27-2016 influenza, injectabl e, quadrivalent, contains preservative Leno Briggs MD Work Phone: [facility] Work Phone: 09-15-2015 influenza, high dose seasonal, preservative-free Leno Briggs MD Work Phone: [facility] Work Phone: 09-15-2015 pneumococcal conjuga te vaccine, 13 valent Leno Briggs MD Work Phone: [facility] Work Phone: 09-20-2014 influenza, seasonal, injectable Leno Briggs MD Work Phone: [facility] Work Phone: 03-27-2014 zoster vaccine, live Leno Briggs MD Work Phone: [facility] Work Phone: 10-24-2013 influenza virus vacc ine, unspecified formulation Leno Briggs MD Work Phone: [facility] 09-06-2012 influenza virus vacc ine, unspecified formulation Leno Briggs MD Work Phone: [facility] Work Phone: 06-21-2012 pneumococcal polysaccharide vaccine, 23 vallynn Briggs MD Work Phone: [facility] Work Phone: 04-24-2012 pneumococcal polysaccharide vaccine, 23 yoselin Briggs MD Work Phone: [facility] Work Phone: Payers Date Payer Category Payer Private Health Insurance [id number] 2021 Medicare [facility] AARP MEDICAR E [facility] AAR MEDICARE O [id number] 2021-Present [phone] [address] [address] [place] [address] HMO [id number] 2021 Medicare [id number] 2021 Medicare [id number] 1940 Unknown [id number] 1940 Unknown [id number] 1940 Unknown [id number] 27 Medicare [id number] Social History Date Type Detail Facility Start: 08-15-2012 End: 04-05-2023 Tobacco smoking status NHIS Ex-smoker [facility] End: 09-22-1997 History of tobacco use Current smoker [facility] End: 09-22-1997 History of tobacco use Cigarette Smoker [facility] Start: 08-15-2012 End: 04-05-2023 Cigarettes smoked current (pack per day) - Reported 3 [facility] Start: 08-15-2012 End: 07-05-2022 Tobacco use and exposure Smokeless tobacco non-user [facility] Start: 10-13-2021 End: 08-31-2023 Alcohol intake Current non-drinker of alcohol (finding) [facility] Start: 1940 Sex Assigned At Female C [facility] Start: 03-12-2022 End: 05-30-2023 Exposure to SARS-CoV-2 (event) Not sure [facility] Work Phone: Start: 07-09-2022 End: 07-19-2022 Exposure to SARS-CoV-2 (event) Unable to assess [facility] Work Phone: Start: 04-01-2023 History SDOH Alcohol Frequency 1 [facility] Start: 04-01-2023 History SDOH Alcohol Std Drinks 0 [facility] Start: 04-01-2023 History SDOH Social Connections Phone 4 [facility] Start: 04-01-2023 History SDOH Social Connections Get Together 5 [facility] Start: 04-01-2023 History SDOH Social Connections Membership 2 [facility] Start: 04-05-2023 End: 05-30-2023 Alcohol intake Lifetime non-drinker (finding) [facility] Start: 1940 Sex Assigned At Not on file [facility] Start: 04-05-2023 End: 04-11-2023 Tobacco use panel [facility] Within the last year , have you been afraid of your partner or ex-partner? No [facility] Are you now , , , , never or living with a partner? [facility] How often to you hav e a drink containing alcohol? Never [facility] How many standard drinks containing alcohol do you have on a typical day? Patient does not drink [facility] How hard is it for y ou to pay for the very basics like food, housing, medical care, and heating Not very hard [facility] Do you feel stress - tense, restless, nervous, or anxious, or unable to sleep at night because your mind is troubled all the time - these days [OSQ] Only a little [facility] (I/We) worried wheth er (my/our) food would run out before (I/we) got money to buy more. Never true [facility] Start: 07-17-2021 Gender identity Identifies as female gender (finding) [facility] Start: 07-17-2021 Sexual orientation Heterosexual (torres parker) [facility] Start: 12-31-2022 Tobacco smoking status Never s moked tobacco (finding) [facility] Sex Assigned At Sex [facility] Medical Equipment Procedure Code Equipment Code Equipment Origin al Text Equipment Identifier Dates Start: 09-08-2021 Functional Status Date Assessment Result Facility 12-01-2023 Functional Status Moderate assistance [facility] 12-01-2023 Functional Status Identified as high risk, Fall ID band on, Room located near nursing station [facility] 12-01-2023 Functional Status [facility] 11-23-2023 Functional Status Standard Safet y ID band on, Call device within reach [facility] Mental Status Date Assessment Result Facility 12-01-2023 Mental Status Orientation Not oriented to place, Not oriented to time [facility] 12-01-2023 Mental Status [facility] 12-01-2023 [facility]23 Mental Status Orientation Not oriented to place, Not oriented to time, Not oriented to situation, Follows simple commands [facility] Clinical Notes 01-01-2019 to 12-05-2023 Telephone Encounter - Brandy [place] Ma - 09/20/2023 10:45 AM ESTTelephone Encounter - [place]andy [place] Ma - 09/20/2023 7:54 AM ESTTelephone Encounter - Loida Rosas - 09/15/2023 3:40 PM EST Note Date & Type Note Facility 12-05-2023 Note HNO ID: [id number] Author: CYNTHIA SHIRLEY LPN Service: ? Author Type: LICENSED NURSE Type: Progress Notes Filed: 12/05/2023 07:23 Note Text: Scan on 12/02/2023 11:44 PM by Niharika Freind PA-C: Consultation - Emergency Medicine Scan on 12/02/2023 8:57 PM by Niharika Friend PA-C: CT Scan Scan on 12/02/2023 10:47 PM by Niharika Friend PA-C [facility] 12-02-2023 Note . MICRO - Microbiology PROCEDURE: Urine Culture [*1] SOURCE: Urine BODY SITE: COLLECTED DATE/TIME: 12/01/2023 05:29 EST RECEIVED DATE/TIME: 12/01/2023 13:50 EST START DATE/TIME: 12/01/2023 13:50 EST FREE TEXT SOURCE: FINAL REPORTS Final Report [] Verified Date/Time/Personnel: 12/02/2023 14:55 EST >100,000 cfu/ml Multiple bacterial morphotypes present. Probable Contamination. Suggest recollection if clinically indicated. Performing Locations *1: This test was performed at: [facility], [address] [place] [address], [id number] , [facility] ([place]) 12-01-2023 Evaluation + Plan note Diagnostic Tests PendingUrine Culture 12/01/23 [facility] 12-01-2023 Hospital Discharge instructions Patient Education 12/01/2023 [...] long-term care insurance plans. Placement in a retirement or retirement facility. This type of facility assists with tasks of daily living. It also provides constant medical care. Trained healthcare providers, skilled nurses, and therapists are onsite to assist with care. Hospice care. This is end-of-life care that can be done in a retirement facility, hospice center, or at home. Hospice [...] You can also seek advice from a medical social worker, resourcing advisor, or research attorney. Getting support Coping with your loved [...] as well. You can also contact your [facility] to find other resources within your community. [phone] [employer]. [address] [place] [address]. All rights reserved. This information is not intended as a substitute for professional medical care. Always follow your healthcare professional's instructions. Follow Up Care 12/01/2023 05:04:16 With:LENO BRIGGS MD Address: [address] [place] [id number] When:2-4 days [facility] 12-01-2023 Emergency department Discharge summary Discharge Instructions Thank you for allowing [place] to assist you with your healthcare needs. [...] BRIGGS MD When Within 2-4 days Where: [address] [place] [address]- Allergies Bactrim codeine escitalopram oxybutynin sertraline traMADol [...] long-term care insurance plans. Placement in a retirement or retirement facility. This type of facility assists with tasks of daily living. It also provides constant medical care. Trained healthcare providers, skilled nurses, and therapists are onsite to assist with care. Hospice care. This is end-of-life care that can be done in a retirement facility, hospice center, or at home. Hospice [...] You can also seek advice from a medical social worker, resourcing advisor, or research attorney. Getting support Coping with your loved [...] as well. You can also contact your [facility] to find other resources within your community. [phone] [employer]. [address] [place] [address], [place] [address]. All rights reserved. This information is not intended as a substitute for professional medical care. Always follow your healthcare professional's instructions. Additional Information VACCINATE! IT SAVES LIVES! Members of the community who have not yet received the COVID-19 vaccine and would like to receive it can visit one of [facility] vaccine clinics. There are many vaccine clinic locations within the [facility]. For locations and available times, please visit [email or web address] [email or web address] It is important to note that some COVID mobile vaccine clinics are held outdoors and may be canceled in rainy or stormy conditions. To learn more about pediatric vaccinations (ages 5-11), we invite you to visit the [employer] [facility] webpage. [email or web address]://[email or web address] To learn more about the COVID-19 vaccine, we invite you to visit the CDC website for a list of frequently asked questions. https://www.cdc.gov/coronavirus/2 019-ncov/vaccines/faq.html [place] [facility] Patient Portal Access Instructions: Stay connected with your healthcare team and access your personal medical information anytime with the [facility] Patient Portal. If you would like a full copy of your medical records please contact the [facility] Medical Records Department Tuesday through Tuesday between 8a.m. and 4:30p.m. Please follow the directions below to access the portal: 1.Access the email account you provided upon registration to the hospital.2.Look for an invitation email from [facility].3.Open the email and access the invitation link: Accept Invitation to [facility]4.Fill in the required quintana to create your account. Sign into [email or web address] with your username and password that you [...] you will allow to register on the [facility] Patient Portal for access to your information. You can also access the [employer] Patient Portal on the [employer] miles. Simply click on Health Records under Health Data and then click on the Water[employer] logo. HOW TO SAFELY DISPOSE OF PRESCRIPTION [...] Call your local pharmacy or go to http://[email or web address] Audio.iTwin/8K4Ve6l to find one close to you.3.Make use of household items: Use cat litter or old coffee grounds to dispose medications if other options are not available. Mix your drugs with these household products, seal them in an airtight container and throw it into the garbage. Call [facility]: [phone] to be sure your drugs can be [...] aware that I should contact my doctor. Patient/[facility] Program Coordinator Signature: Date/Time: Relationship to Patient: ____ Witness Name/Signature: Date/Time: [facility] 12-01-2023 Note ORIGINAL EXAMINATION: CT OF THE [...] 7:47:06 AM Ordering Provider: MARY ANN MENENDEZ [facility] 12-01-2023 Note Sinus rhythm Borderline left axis deviation Abnormal R-wave progression, early transition Repol abnrm suggests ischemia, lateral leads Electronic Signature: ROMINA AUSTIN MD 12/01/2023 10:10:32 [facility] 11-23-2023 Hospital Discharge instructions Patient Education 11/23/2023 [...] body part Frequent bruising for unknown reasons [phone] [employer]. [address] [place] [address]. All rights reserved. This information is not [...] the ears or bruising around the eyes [phone] [employer]. [address] [place] [address]. All rights reserved. This information is not intended as a substitute for professional medical care. Always follow your healthcare professional's instructions. Follow Up Care 11/22/2023 23:57:40 With:LENO BRIGGS Address: [address] [place] [id number] (1) When:Within 1 Week(s) Comments:Follow-up as needed.Tylenol for pain as needed.Return to the ED for any problems or concerns. [facility] 11-23-2023 Note Discharge Instructions Thank you for allowing [place] to assist you with your healthcare needs. [...] ED for any problems or concerns. Where: [address] [place] [address] [id number] [facility] (1) Allergies Bactrim codeine escitalopram oxybutynin sertraline [...] body part Frequent bruising for unknown reasons [phone] [employer]. [address] [place], [place] [address]. All rights reserved. This information is not [...] the ears or bruising around the eyes [phone] [employer]. [address] [place] [address], [place] [address]. All rights reserved. This information is not intended as a substitute for professional medical care. Always follow your healthcare professional's instructions. Additional Information VACCINATE! IT SAVES LIVES! Members of the community who have not yet received the COVID-19 vaccine and would like to receive it can visit one of [facility] vaccine clinics. There are many vaccine clinic locations within the [facility]. For locations and available times, please visit [email or web address] It is important to note that some COVID mobile vaccine clinics are held outdoors and may be canceled in rainy or stormy conditions. To learn more about pediatric vaccinations (ages 5-11), we invite you to visit the [facility] webpage. [email or web address] To learn more about the COVID-19 vaccine, we invite you to visit the CDC website for a list of frequently asked questions. https://www.cdc.gov/coronavirus/2 019-ncov/vaccines/faq.html [facility] [employer] Patient Portal Access Instructions: Stay connected with your healthcare team and access your personal medical information anytime with the [employer] Patient Portal. If you would like a full copy of your medical records please contact the [facility] Medical Records Department Tuesday through Tuesday between 8a.m. and 4:30p.m. Please follow the directions below to access the portal: 1.Access the email account you provided upon registration to the [facility].2.Look for an invitation email from [facility].3.Open the email and access the invitation link: Accept Invitation to [facility] [employer]4.Fill in the required quintana to create your account. Sign into [email or web address] with your username and password that you [...] you will allow to register on the [employer] Patient Portal for access to your information. You can also access the [employer] Patient Portal on the [employer] miles. Simply click on Health Records under Health Data and then click on the [employer] logo. HOW TO SAFELY DISPOSE OF PRESCRIPTION [...] Call your local pharmacy or go to http://[email or web address].iTwin/[email or web address] to find one close to you.3.Make use of household items: Use cat litter or old coffee grounds to dispose medications if other options are not available. Mix your drugs with these household products, seal them in an airtight container and throw it into the garbage. Call [facility]: [phone] to be sure your drugs can be [...] aware that I should contact my doctor. Patient/[place] Program Coordinator Signature: Date/Time: Relationship to Patient: ____ Witness Name/Signature: Date/Time: [facility] 11-23-2023 Note ORIGINAL EXAMINATION: CT OF THE [...] Sign Date: 11/23/2023 1:21:40 AM [facility] ORIGINAL EXAMINATION: TWO XRAY VIEWS [...] Sign Date: 11/23/2023 1:23:20 AM Ordering Provider: PATSY [facility] 11-17-2023 Note HNO ID: [id number] Author: CYNTHIA SHIRLEY LPN Service: ? Author Type: LICENSED NURSE Type: Progress Notes Filed: 11/17/2023 07:18 Note Text: Scan on 11/16/2023 4:44 PM by Niharika Friend PA-C: Consultation - GI [facility] 11-08-2023 Note HNO ID: [id number] Author: Melissa Parra LPN Service: ? Author Type: LICENSED NURSE Type: Progress Notes Filed: 11/08/2023 3:57 PM Note Text: Scan on 11/08/2023 1:21 PM by Niharika Friend PA-C: Echo Scan on 11/06/2023 8:17 PM by Niharika Friend PA-C Scan on 11/06/2023 4:45 PM by Niharika Friend PA-C: Consultation - Emergency Medicine Scan on 11/08/2023 3:12 PM by Niharika Friend PA-C: Consultation - ID [facility] 11-08-2023 Note HNO ID: [id number] Author: Melissa Parra LPN Service: ? Author Type: LICENSED NURSE Type: Progress Notes Filed: 11/08/2023 1:48 PM Note Text: Scan on 11/06/2023 3:21 PM by Niharika Friend PA-C: X-ray Scan on 11/06/2023 4:45 PM by ProviderNiharika PA-C: Consultation - Emergency Medicine Scan on 11/06/2023 8:17 PM by ProviderNiharika PA-C [facility] 09-20-2023 Miscellaneous Notes PA approved faxing approval to [facility] eliceo at [phone] Daughter was notified approved not sure on cost of drug with insurance covering will need to call pharmacy to get info [place] Reviewed medication and rx was sent correctly 2 BID for 90 day supply is 360 tab, did submit a PA to see if cost can be lowered for 90 day supply [place] [facility] documented in this encounter [facility] 09-15-2023 Telephone encounter Note Left message notifying and to call back with which way they'd like to do the visit. [facility] 09-15-2023 Miscellaneous Notes Left message notifying and to call back with which way they'd like to do the visit. OK for virtual visit although we will not be able to facilitate memory testing over MyChart or phone. If they are wanting memory testing then visit will need to be in the office. Name of caller: Mariela Contact phone number: [phone] Relationship to Patient: Daughter Provider: Shantal Serrano [...] their call: Yes documented in this encounter [facility] 09-15-2023 Telephone encounter Note OK for virtual visit although we will not be able to facilitate memory testing over MyChart or phone. If they are wanting memory testing then visit will need to be in the office. [facility] 09-14-2023 Telephone encounter Note Name of caller: Mariela Contact phone number: [phone] Relationship to Patient: Daughter Provider: Shantal Serrano [...] business hours to return their call: Yes [facility] 09-02-2023 Miscellaneous Notes Daughter was notified Brandy [...] stable or not. documented in this encounter [facility] 08-31-2023 Note HNO ID: [id number] Author: Leno Briggs MD Service: ? Author [...] kidney disease) stage 3, GFR 30-59 ml/min ([facility]) 01/01/2019 COPD with chronic bronchitis ([facility]) 02/15/2017 Dr. Brito Current use of proton pump inhibitor 11/25/2016 Mg checked 11/2017 DDD (degenerative disc disease), cervical 07/29/2015 DDD (degenerative disc disease), lumbar 05/08/2013 Diabetes mellitus type 2 in obese ([facility]) 06/2015 a1c 6.5% Diabetic eye exam ([facility]) 03/15/2017 Last done: 10/24/2019 No [...] TACO (obstructive sleep apnea) [facility] fx [phone] Pain due to total left knee replacement (HCC) 06/08/2018 Personal history of colonic polyps 01/23/2016 Primary insomnia 03/16/2017 [place] 06/26/2018 recommended Klonopin every other day for a week and then just as needed. Primary osteoarthritis of right knee 07/13/2016 Pulmonary nodules 03/03/2013 Incidental non-calcified nodules 10/09/2012. Repeat CT due 06/2013 Recurrent major depressive disorder, in full remission ([facility]) 08/17/2012 Rheumatoid arthritis(714.0) Spondylosis of lumbar region without myelopathy or radiculopathy 05/28/2015 Status post total left knee replacement 06/08/2018 Stress incontinence 11/21/[address] Armas. Thyroid nodule 11/15/2018 Stable on 2017 Type 2 diabetes mellitus with stage 3 chronic kidney disease, without long-term current use of insulin ([facility]) 06/06/2017 Urge incontinence 11/21/2012 PAST SURGICAL HISTORY PAST SURGICAL HISTORY Procedure Laterality Date CHOLECYSTECTOMY HX 10/30/1997 COLONOSCOP W/ OR W/O [facility] SPEC 11/29/12 Colonoscopy repeat 3 years COLONOSCOP W/ OR W/O [facility] SPEC 01/28/16 Colonoscopy with mac COLONOSCOPY AND POLYPECTOMY ~2007 2 polyps COLONOSCOPY AND POLYPECTOMY ~2001 7 polyps COLONOSCOPY AND POLYPECTOMY 11/30/2011 CYSTOSCOPY 09/21/12 EGD 10/17/2011 Dr Negrete in [place] EGD W/O OR W/BRUSH/WASH 05/16/2014 EGD EGD [...] Mother Lipids Mother HIGH CHOLESTEROL Heart Father [place] Ischemic Heart Disease Father STROKE other (diabetic) [...] and revi (more content not included)... [facility] 08-23-2023 Miscellaneous Notes The following approved [...] Nel Cope LPN. documented in this encounter [facility] 08-16-2023 Telephone encounter Note Preferred contact number: [phone] Reason for Visit: Caller states she would like to cancel appointment due to transportation and would like a call to schedule. Please advise. Thank you Urgency of Appointment: na Medications in need of refill: na [facility] 08-16-2023 Miscellaneous Notes Preferred contact number: [phone] Reason for Visit: Caller states she would like to cancel appointment due to transportation and would like a call to schedule. Please advise. Thank you Urgency of Appointment: na Medications in need of refill: na documented in this encounter [facility] 07-05-2023 Telephone encounter Note Daughter wanted to [...] prior to picking up the medication: N/A [facility] 07-05-2023 Miscellaneous Notes Daughter wanted to know [...] the medication: N/A documented in this encounter [facility] 07-05-2023 Miscellaneous Notes Spoke with pt's daughter and information below given. Shelby Rogel LPN Left message for pt's daughter to contact office. Cynthia Shirley LPN Let family know the Aricept (donepezil) is prescribed by patient's instrumentation tech and will need to contact that office [...] Nel Cope LPN documented in this encounter [facility] 06-21-2023 Note HNO ID: [id number] Author: Leno Briggs MD Service: ? Author [...] life is less. She has been taking Hollywood 5/325 one twice a day since 04/2018 and up till now was doing well with this. Her daughter, (Mariela) who is her with her today, notes that it no longer controls the pain for as long of a time as it used to. She requires extra strength tylenol in between doses and even then it's not as well as when she takes a Hollywood. Patient has not been seen for routine since 10/2022. She is now seeing a instrumentation tech for her dementia. She was recently found [...] kidney disease) stage 3, GFR 30-59 ml/min ([facility]) 01/01/2019 COPD with chronic bronchitis ([facility]) 02/15/2017 Dr. Brito Current use of proton pump inhibitor 11/25/2016 Mg checked 11/2017 DDD (degenerative disc disease), cervical 07/29/2015 DDD (degenerative disc disease), lumbar 05/08/2013 Diabetes mellitus type 2 in obese ([facility]) 06/2015 a1c 6.5% Diabetic eye exam ([facility]) 03/15/2017 Last done: 10/24/2019 No [...] TACO (obstructive sleep apnea) D[facility] fx [phone] Pain due to total left knee replacement (HCC) 06/08/2018 Personal history of colonic polyps 01/23/2016 Primary insomnia 03/16/2017 Brain [place] 06/26/2018 recommended Klonopin every other day for a week and then just as needed. Primary osteoarthritis of right knee 07/13/2016 Pulmonary hypertension (HCC) 05/19/2022 Seeing pulm and cardio Pulmonary nodules 03/03/2013 Incidental non-calcified nodules 10/09/2012. Repeat CT due 06/2013 Recurrent major depressive disorder, in full remission ([facility]) 08/17/2012 Rheumatoid arthritis(714.0) Spondylosis of lumbar region without myelopathy or radiculopathy 05/28/2015 Status post total left knee replacement 06/08/2018 Stress incontinence 11/21/[address] Armas. Thyroid nodule 11/15/2018 Stable on 2017 Type 2 diabetes mellitus with stage 3 chronic kidney disease, without long-term current use of insulin ([facility]) 06/06/2017 Urge incontinence 11/21/2012 Previous [...] CYSTOSCOPY 09/21/12 EGD 10/17/2011 Dr Negrete in [place] ESOPHAGOGASTRODUODENOSCOPY TRANSORAL DIAGNOSTIC 05/16/2014 EGD ESOPHAGOGASTRODUODENOSCOPY TRANSORAL DIAGNOSTIC 09/12/14 EGD ESOPHAGOGASTRODUODENOSCOPY TRANSORAL DIAGNOSTIC 01/06/2017 EGD ESOPHAGOGASTRODUODENOSCOPY TRANSORAL D (more content not included)... [facility] 06-21-2023 History of Present illness Narrative [...] life is less. She has been taking Hollywood 5/325 one twice a day since 04/2018 and up till now was doing well with this. Her daughter, (Mariela) who is her with her today, notes that it no longer controls the pain for as long of a time as it used to. She requires extra strength tylenol in between doses and even then it's not as well as when she takes a Hollywood. Patient has not been seen for routine since 10/2022. She is now seeing a instrumentation tech for her dementia. She was recently found [...] kidney disease) stage 3, GFR 30-59 ml/min ([facility]) 01/01/2019 COPD with chronic bronchitis ([facility]) 02/15/2017 Dr. Brito Current use of proton pump inhibitor 11/25/2016 Mg checked 11/2017 DDD (degenerative disc disease), cervical 07/29/2015 DDD (degenerative disc disease), lumbar 05/08/2013 Diabetes mellitus type 2 in obese ([facility]) 06/2015 a1c 6.5% Diabetic eye exam ([facility]) 03/15/2017 Last done: 10/24/2019 No [...] TACO (obstructive sleep apnea) D[facility] [employer] fx [phone] Pain due to total left knee replacement [...] Recurrent major depressive disorder, in full remission ([facility]) 08/17/2012 Rheumatoid arthritis(714.0) Spondylosis of lumbar region without myelopathy or radiculopathy 05/28/2015 Status post total left knee replacement 06/08/2018 Stress incontinence 11/21/[address] Armas. Thyroid nodule 11/15/2018 Stable on 2017 Type 2 diabetes mellitus with stage 3 chronic kidney disease, without long-term current use of insulin ([facility]) 06/06/2017 Urge incontinence 11/21/2012 Previous [...] CYSTOSCOPY 09/21/12 EGD 10/17/2011 Dr Negrete in [place] ESOPHAGOGASTRODUODENOSCOPY TRANSORAL DIAGNOSTIC 05/16/2014 EGD ESOPHAGOGASTRODUODENOSCOPY TRANSORAL DIAGNOSTIC 09/12/14 EGD ESOPHAGOGASTRODUODENOSCOPY TRANSORAL DIAGNOSTIC 01/06/2017 EGD ESOPHAGOGASTRODUODENOSCOPY TRANSORAL DIAGNOSTIC 07/21/2020 EGD REMOVE CATARACT, INSERT LENS, INTRACAPSUL Bilateral 2009 Family History FAMILY HISTORY Problem Relation Age of Onset Hypertension Mother Heart Mother Lipids Mother HIGH CHOLESTEROL Heart Father [place] Ischemic Heart Disease Father STROKE other (diabetic) Father Diabetes Sister Diabetes Sister Breast Cancer Sister Patient Allergies ALLERGIES Allergen Reactions Bactrim [Sulfametho* Itching Codeine Mental Status Change Garlic Oil Other: See Comments Lexapro [Escitalopr* Other: See Comments rapid heart rate Oxybutynin Other: See Comments suggerst by Bolster to stop since it can add to [...] which included preparing to see the patient, rprj-op-lgdu patient care, completing clinical documentation, performing a medically appropriate examination, counseling and educating the patient/family/caregiver and ordering medications, tests, or procedures. Leno Briggs MD documented in this encounter [facility] 06-20-2023 Miscellaneous Notes Left message for pt's daughter that Stephani did review pt's chart and advised that pt does need to see Dr Briggs instead of her tomorrow. Advised pt is scheduled at 2:20 tomorrow 06/[address] Briggs. Daughter had called earlier to reschedule appointment that pt had canceled. Cynthia Shirley LPN documented in this encounter [facility] 05-30-2023 History of Present illness Narrative COLORECTAL SURGERY OFFICE VISIT PATIENT NAME: Robbin Singh : 1940 TODAY'S DATE: 05/30/2023 Chief Complaint Patient presents with Results [facility] # [phone](Mariela, daughter)Discuss results of colonoscopy done 05/25/23 Patient [...] stated that they are currently in the [employer]. If the patient is a minor, permission [...] Patient has dementia and is daughter is communication center operator. She noticed feces inside her vagina. [...] 05/25/2023 Performed by Samantha Nava MD at [address] ENDOSCOPY Current Outpatient Medications on File [...] Take 600 mg by mouth daily. HYDROcodone-acetaminophen ([place]ollywood) 5-325 MG tablet Take 1 tablet by [...] tablet Take 1 tablet by mouth daily. Shiner-3 Fatty Acids (FISH OIL OMEGA-3 PO) Take [...] judgement RECTUM: deferred Exam chaperoned by female leasing assistant. IMAGING: Per chart rveiew She underwent a [facility]22 with findings of [...] was performed when available. Samantha Nava MD [facility] Col[facility] [address] [place] [address], [address] [place] [address] p [phone] documented in this encounter [facility] 05-25-2023 Note Patient: Robbin niño Procedure Summary Date: 05/25/23 Room / Location: [facility] ENDO SEC 1 / ARCH [...] once all PACU criteria has been met. [facility] 05-25-2023 Note Patient: Robbin niño Procedure Summary Date: 05/25/23 Room / Location: [facility] AR[facility] ENDO SEC 1 / ARCH [...] opportunity for questions and acknowledgement of understanding. [facility] 05-25-2023 Note Endoscopy Center- [facility] Patient Name: Robbin Singh Procedure Date: 05/25/2023 10:43 AM Gender: Female Date of : 1940 Age: 82 Admit Type: Outpatient Note Status: Finalized Endoscopist: Samantha Nava MD, [id number] Procedure: Colonoscopy Indications: Follow-up of diverticulitis, Colovaginal [...] immediate complications. Procedure Code(s): --- Professional --- 52005, Colonoscopy, flexible; with removal of tumor(s), polyp(s), or other lesion(s) by snare technique --- Technical --- 11460, Colonoscopy, flexible; with removal of tumor(s), polyp(s), or other lesion(s) by snare technique CPT copyright 2021 [employer]. All rights reserved. The codes documented in this report are preliminary and upon surgical coder review may be revised to meet current compliance requirements. Attending Participation: I personally performed the entire procedure. Samantha Nava MD 05/25/2023 11:25:44 AM This report has been signed electronically. Number of Addenda: 0 Note Initiated On: 05/25/2023 10:43 AM [facility] 05-25-2023 Note Formatting of this n ote might be different from the original. [facility] Patient Name: Robbin Singh Procedure Date: 05/25/2023 10:43 AM Gender: Female Date of : 1940 Age: 82 Admit Type: Outpatient Note Status: Finalized Endoscopist: Samantha Nava MD, [id number] Procedure: Colonoscopy Indications: Follow-up of diverticulitis, Colovaginal [...] immediate complications. Procedure Code(s): --- Professional --- 61013, Colonoscopy, flexible; with removal of tumor(s), polyp(s), or other lesion(s) by snare technique --- Technical --- 40598, Colonoscopy, flexible; with removal of tumor(s), polyp(s), or other lesion(s) by snare technique CPT copyright 2021 [employer]. All rights reserved. The codes documented in this report are preliminary and upon surgical coder review may be revised to meet current compliance requirements. Attending Participation: I personally performed the entire procedure. Samantha Nava MD 05/25/2023 11:25:44 AM This report has been signed electronically. Number of Addenda: 0 Note Initiated On: 05/25/2023 10:43 AM [facility] 05-25-2023 Note Formatting of this n ote might be different from the original. [facility] Patient Name: Robbin Singh Procedure Date: 05/25/2023 10:43 AM Gender: Female Date of : 1940 Age: 82 Admit Type: Outpatient Note Status: Finalized Endoscopist: Samantha Nava MD, [id number] Procedure: Colonoscopy Indications: Follow-up of diverticulitis, Colovaginal [...] immediate complications. Procedure Code(s): --- Professional --- 22043, Colonoscopy, flexible; with removal of tumor(s), polyp(s), or other lesion(s) by snare technique --- Technical --- 70839, Colonoscopy, flexible; with removal of tumor(s), polyp(s), or other lesion(s) by snare technique CPT copyright 2021 [employer]. All rights reserved. The codes documented in this report are preliminary and upon surgical coder review may be revised to meet current compliance requirements. Attending Participation: I personally performed the entire procedure. Samantha Nava MD 05/25/2023 11:25:44 AM This report has been signed electronically. Number of Addenda: 0 Note Initiated On: 05/25/2023 10:43 AM [facility] 05-25-2023 Miscellaneous Notes [facility] Patient Name: Robbin Singh Procedure Date: 05/25/2023 10:43 AM Gender: Female Date of : 1940 Age: 82 Admit Type: Outpatient Note Status: Finalized Endoscopist: Samantha Nava MD, [id number] Procedure: Colonoscopy Indications: Follow-up of diverticulitis, Colovaginal [...] immediate complications. Procedure Code(s): --- Professional --- 05953, Colonoscopy, flexible; with removal of tumor(s), polyp(s), or other lesion(s) by snare technique --- Technical --- 51084, Colonoscopy, flexible; with removal of tumor(s), polyp(s), or other lesion(s) by snare technique CPT copyright 2021 [employer]. All rights reserved. The codes documented in this report are preliminary and upon surgical coder review may be revised to meet current compliance requirements. Attending Participation: I personally performed the entire procedure. Samantha Nava MD 05/25/2023 11:25:44 AM This report has been signed electronically. Number of Addenda: 0 Note Initiated On: 05/25/2023 10:43 AM documented in this encounter [facility] 05-25-2023 Note Endoscopy History an d Physical [...] Diagnosis Date COPD (chronic obstructive pulmonary disease) ([facility]) Depression Pulmonary hypertension (HCC) Past Surgical History: [...] mg by mouth daily. Past Week HYDROcodone-acetaminophen (Hollywood) 5-325 MG tablet Take 1 tablet by [...] Take 1 tablet by mouth daily. 05/24/2023 Shiner-3 Fatty Acids (FISH OIL OMEGA-3 PO) Take [...] none HEMATOLOGIC/LYMPHATIC: N (more content not included)... [facility] 05-25-2023 Note Patient: Robbin niño Procedure Information Date/Time: 05/25/23 0900 Procedure: COLONOSCOPY Location: [facility] ENDO SEC 1 / ARCH [...] found for this or any previous visit. [facility] 05-25-2023 History and physical note Endoscopy [...] mg by mouth daily. Past Week HYDROcodone-acetaminophen (Hollywood) 5-325 MG tablet Take 1 tablet by [...] Take 1 tablet by mouth daily. 05/24/2023 Shiner-3 Fatty Acids (FISH OIL OMEGA-3 PO) Take [...] understanding and willingness to proceed with plan. [facility] Phone: 05-25-2023 History and physical note Endoscopy [...] mg by mouth daily. Past Week HYDROcodone-acetaminophen ([place]ollywood) 5-325 MG tablet Take 1 tablet by [...] Take 1 tablet by mouth daily. 05/24/2023 Shiner-3 Fatty Acids (FISH OIL OMEGA-3 PO) Take [...] proceed with plan. documented in this encounter [place] [address]-11-2023 History of Present illness Narrative Interval history [...] Diet Healthy Nutrition for Older Adults - [facility] Injury Prevention/Home Safety [facility] Home Safety Checklist Hearing/Vision Hearing Loss and Older Adults Medications Medication Safety/Dispensers Sleep Getting a Good Night's Sleep ([facility]) Sleep Hygiene Day/Night Reversal Advanced Directives Healthcare Power of Well Drill Operator Rotary Drill Living Will Recommend Financial Power of Well Drill Operator Rotary Drill Elder Law Well Drill Operator Rotary Drill List [facility] Advanced Directives Information Guide Personal Care Personal Care Tips Bathing Tips Dressing Tips Images from the original note were not included. [facility] [address] [address] Dept: [phone] Dept Loc: [phone] Visit type: [facility] Family Summary Conference Reason for [...] through following means: Alzheimer's Association support and spring fitter helper Reviewed advanced care plan. Health Care Power of Well Drill Operator Rotary Drill, Financial Power of Well Drill Operator Rotary Drill, and Living Will Educational information and handouts [...] 03/2023 for memory loss x 1 year, [place] 19 (MIS 2), CDT 5, PHQ 1, [...] Take 600 mg by mouth daily. HYDROcodone-acetaminophen (Hollywood) 5-325 MG tablet Take 1 tablet by [...] tablet Take 1 tablet by mouth daily. Shiner-3 Fatty Acids (FISH OIL OMEGA-3 PO) Take [...] Diagnosis Date COPD (chronic obstructive pulmonary disease) ([facility]) Depression Pulmonary hypertension ([facility]) Social History Tobacco Use Smoking status: Former Packs/day: 2.00 Types: Cigarettes Quit date: 1996 Years since quittin.5 Smokeless tobacco: Not on file Substance Use Topics Alcohol use: Never Past Surgical History: Procedure Laterality Date COLONOSCOPY N/A 05/25/2023 Performed by Samantha Nava MD at [address] ENDOSCOPY Family History Problem Relation Name Age [...] >20.0 05/04/2023 Lab Results Component Value Date [id number] 05/04/2023 No results found for: RPR [...] for the patient documented in this encounter [facility] 05-17-2023 Instructions FILEMON Shepherd CNP - 05/17/2023 [...] and social activity - [facility], Silver Sneakers. Recommend routines, schedules, and organization. Recommend [...] for virtual visit. documented in this encounter [facility] 04-11-2023 Miscellaneous Notes TC to patients daughter with no answer. Left VM to return call to office to receive update. JUSTINE Gupta Please reach out to patient's daughter. Let her know we refilled Robbin's Hollywood, however, she No Showed to her appt [...] of last office visit in primary care: TAVO 12/23/22 No appointment scheduled Last 2 Encounter Wt Readings: Date: Wt: 03/18/2023 127.5 kg (281 lb) 02/21/2023 129.7 kg (286 lb) Please advise. Thank you. JUSTINE Gupta documented in this encounter [facility] 04-11-2023 History of Present illness Narrative [...] Patient has dementia and is daughter is communication center operator. She noticed feces inside her vagina. [...] Take 600 mg by mouth daily. HYDROcodone-acetaminophen (Hollywood) 5-325 MG tablet Take 1 tablet by [...] tablet Take 1 tablet by mouth daily. Shiner-3 Fatty Acids (FISH OIL OMEGA-3 PO) Take [...] judgement RECTUM: deferred Exam chaperoned by female leasing assistant. IMAGING: Per chart rveiew She underwent a CT scan at [facility] on 12/31/2022 with findings of [...] was performed when available. Samantha Nava MD [facility] Colorectal Surgery [address], [address] [place], [place] [address] p [phone] f [phone] documented in this encounter [facility] 04-05-2023 Note Mrs. Singh was see n [...] Return in 4-6 weeks for summary visit. [facility] 04-05-2023 History of Present illness Narrative Images from the original note were not included. [facility] [address] [id number] Dept: [phone] Dept Loc: [phone] Visit type: [facility] Initial Assessment Visit Date: 04/11/2023 [...] 82 y.o. female who presents to the [facility] for a comprehensive geriatric assessment. The patient is new to me. Referred for dementia, having nightmares, on Donepezil at , previously diagnosed with dementia. Family helping with pt's care. PMH: anxiety, depression, OA multiple joints, leg edema, CHF, CKD 3, COPD, DDD cervical and lumbar, DM2, HTN, [place], frequent falls, interstitial cystitis, urinary incontinence, neuropathy, [...] President? Biden Why are we wearing masks? COVID Reviewed progress notes completed by LAURA (ROS)and social work. Allergies Allergen Reactions Iodinated Contrast [...] Take 600 mg by mouth daily. HYDROcodone-acetaminophen (Hollywood) 5-325 MG tablet Take 1 tablet by [...] tablet Take 1 tablet by mouth daily. Shiner-3 Fatty Acids (FISH OIL OMEGA-3 PO) Take [...] Normocephalic. Comments: No glasses. No hearing aids. [place] at times. Right Ear: External ear normal. [...] found for: FOLATE No results found for: [id number] No results found for: RPR Testing: The following tests were performed at today's visit and scanned in to the chart: MoCA score: 19, MIS score: 2 Clock drawing score: 5 PHQ-9 score: 1 SIN score: not done I independently reviewed the [facility] Cognitive Assessment from 04/11/2023. 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 Activities: nephew and great granddaughter come to visit once per week, watches tv Exercise: none Finances: close to $2000 in income Healthcare Power of Well Drill Operator Rotary Drill: No Financial Power of Well Drill Operator Rotary Drill: No Living Will: No Guardian: No Code [...] Diet Healthy Nutrition for Older Adults - [facility] Injury Prevention/Home Safety [facility] Home Safety Checklist Hearing/Vision Hearing Loss and Older Adults Medications Medication Safety/Dispensers Sleep Getting a Good Night's Sleep ([facility]) Sleep Hygiene Day/Night Reversal Advanced Directives Healthcare Power of Well Drill Operator Rotary Drill Living Will Recommend Financial Power of Well Drill Operator Rotary Drill Elder Law Well Drill Operator Rotary Drill List [facility] Advanced Directives Information Guide Personal Care Personal Care Tips Bathing Tips Dressing Tips documented in this encounter [facility] 04-05-2023 Instructions FILEMON Shepherd CNP - 04/05/2023 [...] for summary visit. documented in this encounter [facility] 04-01-2023 Note HNO ID: [id number] Author: Leno Briggs MD Service: ? Author Type: Physician Type: Progress Notes Filed: 04/04/2023 1:02 PM Note Text: Appt cancelled since patient actually needed seen in office for a routine. [facility] 04-01-2023 History of Present illness Narrative Appt cancelled since patient actually needed seen in office for a routine. documented in this encounter [facility] 03-16-2023 Miscellaneous Notes Patient phones requesting refills as follows: Requested Prescriptions Pending Prescriptions Disp Refills metFORMIN ER (GLUCOPHAGE XR) 500 mg 24 hr tablet 180 tablet 1 Sig: Take 2 tablets by mouth daily with dinner. TAVO 12/23/2022 NOV 04/01/2023 Please review and advise. Atiya Deluna LPN documented in this encounter [facility] 03-11-2023 Miscellaneous Notes Faxed. Antionette Coleman MA Order printed and signed and ready to fax Ok to refer? Cristina Garcia Ma documented in this encounter [facility] 03-09-2023 Miscellaneous Notes The following approved [...] Shelby Rogel LPN documented in this encounter [facility] 03-09-2023 Miscellaneous Notes The following approved [...] sent to Gian Hines. Pharm updated in [place]. Cynthia Shirley LPN LM for patient to [...] would help her sleep. Contact patient at [phone]. Joanne Rogel Pss documented in this encounter [facility] 02-21-2023 Note HNO ID: [id number] Author: Radha Baldwin APRN.DRAW STRING KNOTTER Service: ? Author Type: Nurse Practitioner Type: Progress Notes Filed: 02/22/2023 12:47 PM Note Text: [facility] Card[facility]) [address] [facility] [id number] OUTPATIENT VISIT February 21, 2023 2:00 PM [...] kidney disease) stage 3, GFR 30-59 ml/min ([facility]) 01/01/2019 COPD with chronic bronchitis ([facility]) 02/15/2017 Dr. Brito Current use of proton pump inhibitor 11/25/2016 Mg checked 11/2017 DDD (degenerative disc disease), cervical 07/29/2015 DDD (degenerative disc disease), lumbar 05/08/2013 Diabetes mellitus type 2 in obese ([facility]) 06/2015 a1c 6.5% Diabetic eye exam ([facility]) 03/15/2017 Last done: 10/24/2019 No [...] TACO (obstructive sleep apnea) [facility] fx [phone] Pain due to total left knee replacement (HCC) 06/08/2018 Personal history of colonic polyps 01/23/2016 Primary insomnia 03/16/2017 [facility] 06/26/2018 recommended Klonopin every other day for a week and then just as needed. Primary osteoarthritis of right knee 07/13/2016 Pulmonary hypertension (HCC) 05/19/2022 Seeing pulm and cardio Pulmonary nodules 03/03/2013 Incidental non-calcified nodules 10/09/2012. Repeat CT due 06/2013 Recurrent major depressive disorder, in full remission ([facility]) 08/17/2012 Rheumatoid arthritis(714.0) Spondylosis of lumbar region without myelopathy or radiculopathy 05/28/2015 Status post total left knee replacement 06/08/2018 Stress incontinence 11/21/[address] Armas. Thyroid nodule 11/15/2018 Stable on 2017 Type 2 diabetes mellitus with stage 3 chronic kidney disease, without long-term current use of insulin ([facility]) 06/06/2017 Urge incontinence 11/21/2012 PAST [...] CYSTOSCOPY 09/21/12 EGD 10/17/2011 Dr Negrete in [place] ESOPHAGOGASTRODUODENOSCOPY TRANSORAL DIAGNOS (more content not included)... [facility] 02-18-2023 Instructions Lauren Gruber RN - [...] If you do not have a responsible tank wagon driver (family member or friend) with you [...] exam. 2 10/2019 documented in this encounter [facility] 02-14-2023 Miscellaneous Notes Patient has been [...] to [facility] documented in this encounter [facility] 02-14-2023 Miscellaneous Notes The following approved [...] Last refill; 01/2023 documented in this encounter [facility] 02-11-2023 Miscellaneous Notes This patient gave [...] seven days of my reply. See the Zonoff message reply for my assessment and plan. I spent a total of 5 minutes reviewing the patient's prior medical records and current request for medical advice, prescribing medications or ordering tests (if applicable), replying to the patient, and documenting the encounter. Eufemia Chapa APRN.CNP documented in this encounter [facility] 02-10-2023 Miscellaneous Notes TAVO 12/23/22 with RR Appointment scheduled 03/11/23 with JAX Please advise. Thank you. MODESTO Gupta documented in this encounter [facility] 02-09-2023 History and physical note COLORECTAL SURGERY NEW VIRTUAL VISIT I have communicated my name and active licensure. The patient's identity and physical location were verified at the time of this visit. Either the patient or their legal disability representative has been informed of the risks [...] Patient has dementia and is daughter is communication center operator. She noticed feces inside her vagina. [...] thinks this is mostly incontinence of urine. Manager Underwriting History PAST MEDICAL HISTORY Diagnosis Date Anxiety [...] kidney disease) stage 3, GFR 30-59 ml/min ([facility]) 01/01/2019 COPD with chronic bronchitis ([facility]) 02/15/2017 Dr. Brito Current use of proton pump inhibitor 11/25/2016 Mg checked 11/2017 DDD (degenerative disc disease), cervical 07/29/2015 DDD (degenerative disc disease), lumbar 05/08/2013 Diabetes mellitus type 2 in obese ([facility]) 06/2015 a1c 6.5% Diabetic eye exam ([facility]) 03/15/2017 Last done: 10/24/2019 No [...] TACO (obstructive sleep apnea) [facility] fx [phone] Pain due to total left knee replacement ([facility]) 06/08/2018 Personal history of colonic polyps 01/23/2016 Primary insomnia 03/16/2017 [facility] 06/26/2018 recommended Klonopin every other day for a week and then just as needed. Primary osteoarthritis of right knee 07/13/2016 Pulmonary hypertension ([facility]) 05/19/2022 Seeing pulm and cardio Pulmonary nodules 03/03/2013 Incidental non-calcified nodules 10/09/2012. Repeat CT due 06/2013 Recurrent major depressive disorder, in full remission ([facility]) 08/17/2012 Rheumatoid arthritis(714.0) Spondylosis of [...] CYSTOSCOPY 09/21/12 EGD 10/17/2011 Dr Negrete in [place] ESOPHAGOGASTRODUODENOSCOPY TRANSORAL DIAGNOSTIC 05/16/2014 EGD ESOPHAGOGASTRODUODENOSCOPY TRANSORAL [...] No) 1 Kit 0 Walker (ULTRA-LIGHT ROLLATOR) [facility] One Rolator with seat. Dx: J44.9, M54.9, [...] No history of dysuria, frequency or incontinence MAIL FORWARDING SYSTEM MARKUP CLERK: stool per vagina per HPI MUSCULOSKELETAL: Negative [...] which included preparing to see the patient, [id number] patient care, completing clinical documentation, obtaining and/or reviewing separately obtained history, performing a medically appropriate examination, counseling and educating the patient/family/caregiver, ordering medications, tests, or procedures, communicating with other HCPs (not separately reported), independently interpreting results (not separately reported), communicating results to the patient/family/caregiver, and care coordination (not separately reported). documented in this encounter [facility] 02-03-2023 Miscellaneous Notes Patient phones requesting refills as follows: Patient comment: Is it possible to have this sent to [facility] in [place], for maybe a2-week supply, and the normal 90-day refill to [facility]? I thought this was on auto-delivery through them but they haven't sent it Requested Prescriptions Pending Prescriptions Disp Refills losartan (COZAAR) 50 mg tablet 90 tablet 1 Sig: Take 1 tablet by mouth once daily. TAVO-12/23/22 Labs-11/04/22 NOV-03/11/23 Med filled 06/14/22 Please review and advise. Brianne Chiang LPN documented in this encounter [facility] 01-31-2023 Miscellaneous Notes [facility] sent by PCP on 01/30 Charity Das APRN.DRAW STRING KNOTTER documented in this encounter [facility] 01-28-2023 Miscellaneous Notes This patient gave [...] seven days of my reply. See the [employer] message reply for my assessment and plan. I spent a total of 5 minutes reviewing the patient's prior medical records and current request for medical advice, prescribing medications or ordering tests (if applicable), replying to the patient, and documenting the encounter. Eufemia Chapa APRN.CNP documented in this encounter [facility] 01-26-2023 Miscellaneous Notes Please see TEL ENC for today regarding RN's call to pt to schedule nurse visit for urine specimen collection. Jason Mcfadden RN Discussed with Eufemia Chapa DNP. Recommend nurse visit for straight cath urine specimen. Patient has colovesical fistula and clean catch is not recommended. Eloisa Ferrara APRN.CNP documented in this encounter [facility] 01-26-2023 Miscellaneous Notes RN's call to pt to schedule office visit for urine specimen collection went to voicemail. RN left message requesting return call from pt to schedule nurse visit. Call terminated. documented in this encounter [facility] 01-25-2023 Note HNO ID: [id number] Author: Leesa Ramirez MD Service: ? Author Type: Physician Type: Progress Notes Filed: 01/25/2023 3:26 PM Note Text: Robbin Singh 1940 REFERRING PHYSICIAN: Eufemia Chapa APRN.CNP CHIEF COMPLAINT: Consult (Colovesical fistula) HPI: The patient is a 82 year old female presents with colovesical fistula. She has noted symptoms for about two months. She underwent a CT scan at [facility] on 12/31/2022 with findings of mid sigmoid diverticulitis with probable fistula to the adjacent urinary bladder. Associated colonic wall thickening and adjacent stranding noted. There is under distension of the urinary bladder with significant wall edema and adjacent inflammatory change. Patient had been scheduled for an appointment at [facility] in [place], but the family deferred this and preferred to be seen in [place]. The patient had also been scheduled for an appointment at [facility], but deferred this. The patient [...] kidney disease) stage 3, GFR 30-59 ml/min ([facility]) 01/01/2019 COPD with chronic bronchitis ([facility]) 02/15/2017 Dr. Brito Current use of proton pump inhibitor 11/25/2016 Mg checked 11/2017 DDD (degenerative disc disease), cervical 07/29/2015 DDD (degenerative disc disease), lumbar 05/08/2013 Diabetes mellitus type 2 in obese ([facility]) 06/2015 a1c 6.5% Diabetic eye exam ([facility]) 03/15/2017 Last done: 10/24/2019 No [...] >= 40 06/26/2018 TACO (obstructive sleep apnea) [facility] fx [phone] Pain due to total left knee replacement ([facility]) 06/08/2018 Personal history of colonic polyps 01/23/2016 Primary insomnia 03/16/2017 [facility] center 06/26/2018 recommended Klonopin every other day for a week and then just as needed. Primary osteoarthritis of right knee 07/13/2016 Pulmonary hypertension (HCC) 05/19/2022 Seeing pulm and cardio Pulmonary nodules 03/03/2013 Incidental non-calcified nodules 10/09/2012. Repeat CT due 06/2013 Recurrent major depressive disorder, in full remission ([facility]) 08/17/2012 Rheumatoid arthritis(714.0) Spondylosis of lumbar region without myelopathy or radiculopathy 05/28/2015 Status post total left knee replacement 06/08/2018 Stress incontinence 11/21/[address] Armas. Thyroid nodule 11/15/2018 Stable on 2017 Type 2 diabetes mellitus with stage 3 chronic kidney disease, without long-term current use of insulin ([facility]) 06/06/2017 Urge incontinence 11/21/2012 PAST [...] CYSTOSCOPY 09/21/12 EGD 10/17/2011 Dr Negrete in [place] ESOPHAGOGASTRODUODENOSCOPY TRANSORAL DIAGNOSTIC 05/16/2014 EGD ESOPHAGOGASTRODUODENOSCOPY TRANSORAL [...] ER ( (more content not included)... [facility] 01-25-2023 History of Present illness Narrative Robbin Singh 1940 REFERRING PHYSICIAN: Eufemia Chapa APRN.DRAW STRING KNOTTER CHIEF COMPLAINT: Consult (Colovesical fistula) HPI: The patient is a 82 year old female presents with colovesical fistula. She has noted symptoms for about two months. She underwent a CT scan at [facility] on 12/31/2022 with findings of mid sigmoid diverticulitis with probable fistula to the adjacent urinary bladder. Associated colonic wall thickening and adjacent stranding noted. There is under distension of the urinary bladder with significant wall edema and adjacent inflammatory change. Patient had been scheduled for an appointment at [facility] in [place], but the family deferred this and preferred to be seen in [place]. The patient had also been scheduled for an appointment at [facility], but deferred this. The patient [...] kidney disease) stage 3, GFR 30-59 ml/min ([facility]) 01/01/2019 COPD with chronic bronchitis ([facility]) 02/15/2017 Dr. Brito Current use of proton pump inhibitor 11/25/2016 Mg checked 11/2017 DDD (degenerative disc disease), cervical 07/29/2015 DDD (degenerative disc disease), lumbar 05/08/2013 Diabetes mellitus type 2 in obese ([facility]) 06/2015 a1c 6.5% Diabetic eye exam ([facility]) 03/15/2017 Last done: 10/24/2019 No [...] Obesity, Class III, BMI >= 40 06/26/2018 TAOC (obstructive sleep apnea) [facility] fx [phone] Pain due to total left knee replacement ([facility]) 06/08/2018 Personal history of colonic polyps 01/23/2016 Primary insomnia 03/16/2017 [facility] 06/26/2018 recommended Klonopin every other day for a week and then just as needed. Primary osteoarthritis of right knee 07/13/2016 Pulmonary hypertension ([facility]) 05/19/2022 Seeing pulm and cardio Pulmonary nodules 03/03/2013 Incidental non-calcified nodules 10/09/2012. Repeat CT due 06/2013 Recurrent major depressive disorder, in full remission ([facility]) 08/17/2012 Rheumatoid arthritis(714.0) Spondylosis of lumbar region without myelopathy or radiculopathy 05/28/2015 Status post total left knee replacement 06/08/2018 Stress incontinence 11/21/[address] Armas. Thyroid nodule 11/15/2018 Stable on US 2017 Type 2 diabetes mellitus with stage 3 chronic kidney disease, without long-term current use of insulin ([facility]) 06/06/2017 Urge incontinence 11/21/2012 PAST [...] CYSTOSCOPY 09/21/12 EGD 10/17/2011 Dr Negrete in [place] ESOPHAGOGASTRODUODENOSCOPY TRANSORAL DIAGNOSTIC 05/16/2014 EGD ESOPHAGOGASTRODUODENOSCOPY TRANSORAL [...] Mother Lipids Mother HIGH CHOLESTEROL Heart Father [place] Ischemic Heart Disease Father STROKE other (diabetic) Father Diabetes Sister Diabetes Sister Breast Cancer Sister The review of systems data was entered by the nurse and reviewed by ks Nursing Notes: Beata Doshi RN 01/25/2023 1:26 [...] Leesa Ramirez MD documented in this encounter [facility] 01-25-2023 Nurse Note REVIEW OF SYSTEMS: [...] Beata Doshi RN documented in this encounter [facility] 01-19-2023 Miscellaneous Notes Patient has been [...] Shelby Rogel LPN documented in this encounter [facility] 01-18-2023 Miscellaneous Notes Unfortunately, she has to see colorectal. I know she was given a name for a colorectal surgeon in [place] so she can call that office to see if Robbin can be seen sooner there. If she has more questions, I can call her. Eufemia Chapa APRN.DRAW STRING KNOTTER Daughter Mariela calling to see if waiting till 03/09/23 to see Colorectal at is okay. Pt having increased pain in the vagina area due to skin is raw and now getting blood when she wipes. When urinating getting increased pain. Pt is cleaning the area after going but the Aquaphor is not working. Please advise daughter. Shelby Rogel LPN documented in this encounter [facility] 01-14-2023 Miscellaneous Notes Patient has been [...] 03/2023 Last refill: documented in this encounter [facility] 01-06-2023 Miscellaneous Notes Et patient or daughter know pain med refill sent [facility] Briggs here is her Mychart note. Patient Comment: This was supposed to be back-ordered from [facility] because they were out of stock, so she got them from [facility], but it's time for another refill so [...] Shelby Rogel LPN documented in this encounter [facility] 01-06-2023 Note HNO ID: [id number] Author: Eufemia Chapa APRN.DRAW STRING KNOTTER Service: ? Author Type: Nurse Practitioner Type: [...] ago, not yesterday. She was evaluated by CNM for vaginal burning and noted to have mejia on vaginal swab which was treated. Recently diagnosed with diverticulitis at [facility] ER visit 12/31/22. 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 History: MAIL FORWARDING SYSTEM MARKUP CLERK HISTORY: Last Pap: Date:2012; Last Mammogram: Her [...] CYSTOSCOPY 09/21/12 EGD 10/17/2011 Dr Negrete in [place] ESOPHAGOGASTRODUODENOSCOPY TRANSORAL DIAGNOSTIC 05/16/2014 EGD ESOPHAGOGASTRODUODENOSCOPY TRANSORAL DIAGNOSTIC 09/12/14 EGD ESOPHAGOGASTRODUODENOSCOPY TRANSORAL DIAGNOSTIC 01/06/2017 EGD ESOPHAGOGASTRODUODENOSCOPY TRANSORAL DIAGNOSTIC 07/21/2020 EGD REMOVE CATARACT, INSERT LENS, INTRACAPSUL Bilateral 2008 PAST MEDICAL HISTORY Diagnosis Date Anxiety and depression 01/01/2019 Arthritis of shoulder region, degenerative right Corticosteroid 09/20/14, left corticosteroid 10/07/14 Arthritis, multiple joint involvement 01/16/2018 Advised tylenol Arthritis (more content not included)... [facility] 01-06-2023 Instructions Eufemia Chapa APRN.CARINE - 01/06/2023 2:02 PM EST Consult colorectal [...] and protect the skin. Avoid using a religion department chair to dry the vulvar area. Use cool gel packs on the vulva. documented in this encounter [facility] 01-06-2023 History of Present illness Narrative [...] was treated. Recently diagnosed with diverticulitis at [facility] ER visit 12/31/22. She had a CT scan which showed a acute sigmoid diverticulitis with probable fistulous connection to the adjacent urinary bladder (report scanned to chart). Robbin reports rare urinary incontinence and fecal incontinence and this is confirmed by Mariela. She does urinate frequently and has urgency. The incident 3 weeks ago of noting stool after wiping was the first time Robibn saw this. History of christ, no pelvic surgeries. Type 2 diabetes. HgbA1c 6.4, GFR 56 in 2021. BMI 51. Vaginal swabs: 12/28/22 +mejia, BV negative Urine cultures: 12/23/22 mixed microbiota 05/24/22 normal judith Medical and Symptom History: MAIL FORWARDING SYSTEM MARKUP CLERK HISTORY: Last Pap: Date:2012; Last Mammogram: Her [...] CYSTOSCOPY 09/21/12 EGD 10/17/2011 Dr Negrete in [place] ESOPHAGOGASTRODUODENOSCOPY TRANSORAL DIAGNOSTIC 05/16/2014 EGD ESOPHAGOGASTRODUODENOSCOPY TRANSORAL [...] kidney disease) stage 3, GFR 30-59 ml/min ([facility]) 01/01/2019 COPD with chronic bronchitis ([facility]) 02/15/2017 Dr. Brito Current use of proton pump inhibitor 11/25/2016 Mg checked 11/2017 DDD (degenerative disc disease), cervical 07/29/2015 DDD (degenerative disc disease), lumbar 05/08/2013 Diabetes mellitus type 2 in obese ([facility]) 06/2015 a1c 6.5% Diabetic eye exam ([facility]) 03/15/2017 Last done: 10/24/2019 No [...] TACO (obstructive sleep apnea) [facility] [phone] Pain due to total left knee replacement [...] disease, without long-term current use of insulin ([facility]) 06/06/2017 Urge incontinence 11/21/2012 FAMILY HISTORY Problem Relation Age of Onset Hypertension Mother Heart Mother Lipids Mother HIGH CHOLESTEROL Heart Father [place] Ischemic Heart Disease Father STROKE other (diabetic) [...] DX E11.22 Insulin No) Walker (ULTRA-LIGHT ROLLATOR) [facility] One Rolator with seat. Dx: J44.9, M54.9, [...] rate Oxybutynin Other: See Comments suggerst by Bolster to stop since it can add to [...] and ROS obtained by others. Eufemia Chapa APRN.DRAW STRING KNOTTER Carpentry Specialist offered: Patient accepts, visit chaperoned by Ovidio [...] Colovesical fistula - Per discharge instructions from [facility], a consult has been placed with [...] or letter via US mail. Eufemia Chapa APRN.CNP documented in this encounter [facility] 01-01-2023 Note . MICRO - Microbiology [...] Locations *1: This test was performed at: [address], [facility] , [facility] ([place]) 12-29-2022 Miscellaneous Notes Patient's daughter notified. Sun Thompson RN Patient is positive for yeast. She has dementia and sister is communication center operator. Please notify sister of positive results. Diflucan 150 mg PO x 2 doses called in to local pharmacy. She will need to take one dose this week and another dose in 1 week. Madalyn Degroot APRN.CNM documented in this encounter [facility] 12-28-2022 Note HNO ID: [id number] Author: Madalyn Degroot APRN.CNM Service: ? Author Type: Photographer Aerial Type: Progress Notes Filed: 12/28/2022 11:13 AM Note Text: Robbin Singh is a 82 year old female who presents with daughter and sister for problem visit of vaginal burning. Patient referred by PCP due to having vaginal pain and burning sensation. She thought she had a urinary tract infection but urine culture returned negative. Patient has dementia and is daughter is communication center operator. Last week patient became concerned because she noticed feces inside her vagina. She notices stool on toilet paper after wiping. Patient's sister concerned she may have anal fissures/fistula. She has a history of mixed incontinence and wears Depends. Denies any vaginal discharge, odor or itching. Manager Underwriting History LMP: Postmenopausal Age at Menarche: Age at First : Age at Menopause: Manager Underwriting History Comments: Sexual Activity: Never; No partner [...] kidney disease) stage 3, GFR 30-59 ml/min ([facility]) 01/01/2019 COPD with chronic bronchitis ([facility]) 02/15/2017 Dr. Brito Current use of proton pump inhibitor 11/25/2016 Mg checked 11/2017 DDD (degenerative disc disease), cervical 07/29/2015 DDD (degenerative disc disease), lumbar 05/08/2013 Diabetes mellitus type 2 in obese ([facility]) 06/2015 a1c 6.5% Diabetic eye exam ([facility]) 03/15/2017 Last done: 10/24/2019 No [...] TACO (obstructive sleep apnea) [facility] [phone] Pain due to total left knee replacement (HCC) 06/08/2018 Personal history of colonic polyps 01/23/2016 Primary insomnia 03/16/2017 Brain [place] 06/26/2018 recommended Klonopin every other day for a week and then just as needed. Primary osteoarthritis of right knee 07/13/2016 Pulmonary hypertension (HCC) 05/19/2022 Seeing pulm and cardio Pulmonary nodules 03/03/2013 Incidental non-calcified nodules 10/09/2012. Repeat CT due 06/2013 Recurrent major depressive disorder, in full remission ([facility]) 08/17/2012 Rheumatoid arthritis(714.0) Spondylosis of lumbar region without myelopathy or radiculopathy 05/28/2015 Status post total left knee replacement 06/08/2018 Stress incontinence 11/21/[address] Armas. Thyroid nodule 11/15/2018 Stable on 2017 Type 2 diabetes mellitus with stage 3 chronic kidney disease, without long-term current use of insulin ([facility]) 06/06/2017 Urge incontinence 11/21/2012 PAST [...] CYSTOSCOPY 09/21/12 EGD 10/17/2011 Dr Negrete in [place] ESOPHAGOGASTRODUODENOSCOPY TRANSORAL DIAGNOSTIC 05/16/2014 EGD ESOPHAGOGASTRODUODENOSCOPY TRANSORAL DIAGNOSTIC 09/12/14 EGD ESOPHAGOGASTRODUODENOSCOPY TRANSORAL DIAGNOSTIC 01/06/2017 EGD ESOPHAGOGASTRODUODENOSCOPY TRANSORAL DIAGNOSTIC 07/21/2020 EGD REMOVE CATARACT, INSERT LENS, INTRACAPSUL Bilateral 2008 FAMILY HISTORY Problem Relation Age of Onset Hypertension Mother Heart Mother Lipids Mother HIGH CHOLESTEROL Heart Father [place] Ischemic Heart Disease Father STROKE other (diabetic) Father Diabetes Sister Diabetes Sister Breast Cancer Sister Social History Tobacco Use Smoking status: Former Packs/day: 3.0 (more content not included)... [facility] 12-27-2022 Miscellaneous Notes Urine culture was negative. See Linkovery message. documented in this encounter [facility] 12-24-2022 Miscellaneous Notes Spoke to pt's [...] the culture results. documented in this encounter [facility] 12-23-2022 Note HNO ID: [id number] Author: Stephani Crooks PA-C Service: ? Author Type: Physician Ship Keeper Type: Progress Notes Filed: 12/23/2022 2:24 PM [...] kidney disease) stage 3, GFR 30-59 ml/min ([facility]) 01/01/2019 COPD with chronic bronchitis ([facility]) 02/15/2017 Dr. Brito Current use of proton pump inhibitor 11/25/2016 Mg checked 11/2017 DDD (degenerative disc disease), cervical 07/29/2015 DDD (degenerative disc disease), lumbar 05/08/2013 Diabetes mellitus type 2 in obese ([facility]) 06/2015 a1c 6.5% Diabetic eye exam ([facility]) 03/15/2017 Last done: 10/24/2019 No [...] TACO (obstructive sleep apnea) [facility] [phone] Pain due to total left knee replacement (HCC) 06/08/2018 Personal history of colonic polyps 01/23/2016 Primary insomnia 03/16/2017 Brain center 06/26/2018 recommended Klonopin every other day for a week and then just as needed. Primary osteoarthritis of right knee 07/13/2016 Pulmonary hypertension ([facility]) 05/19/2022 Seeing pulm and cardio Pulmonary nodules 03/03/2013 Incidental non-calcified nodules 10/09/2012. Repeat CT due 06/2013 Recurrent major depressive disorder, in full remission ([facility]) 08/17/2012 Rheumatoid arthritis(714.0) Spondylosis of lumbar region without myelopathy or radiculopathy 05/28/2015 Status post total left knee replacement 06/08/2018 Stress incontinence 11/21/[address] Armas. Thyroid nodule 11/15/2018 Stable on 2017 Type 2 diabetes mellitus with stage 3 chronic kidney disease, without long-term current use of insulin ([facility]) 06/06/2017 Urge incontinence 11/21/2012 Previous [...] CYSTOSCOPY 09/21/12 EGD 10/17/2011 Dr Negrete in [place] ESOPHAGOGASTRODUODENOSCOPY TRANSORAL DIAGNOSTIC 05/16/2014 EGD ESOPHAGOGASTRODUODENOSCOPY TRANSORAL DIAGNOSTIC 09/12/14 EGD ESOPHAGOGASTRODUODENOSCOPY TRANSORAL DIAGNOSTIC 01/06/2017 EGD ESOPHAGOGASTRODUODENOSCOPY TRANSORAL DIAGNOSTIC 07/21/2020 EGD REMOVE CATARACT, INSERT LENS, INTRACAPSUL Bilateral 2008 Family History FAMILY HISTORY Pr (more content not included)... [facility] 12-23-2022 History of Present illness Narrative [...] 05/08/2013 Diabetes mellitus type 2 in obese ([facility]) 06/2015 a1c 6.5% Diabetic eye exam ([facility]) 03/15/2017 Last done: 10/24/2019 No [...] TACO (obstructive sleep apnea) [facility] [phone] Pain due to total left knee replacement ([facility]) 06/08/2018 Personal history of colonic polyps 01/23/2016 Primary insomnia 03/16/2017 Brain center 06/26/2018 recommended Klonopin every other day for a week and then just as needed. Primary osteoarthritis of right knee 07/13/2016 Pulmonary hypertension (HCC) 05/19/2022 Seeing pulm and cardio Pulmonary nodules 03/03/2013 Incidental non-calcified nodules 10/09/2012. Repeat CT due 06/2013 Recurrent major depressive disorder, in full remission ([facility]) 08/17/2012 Rheumatoid arthritis(714.0) Spondylosis of lumbar region without myelopathy or radiculopathy 05/28/2015 Status post total left knee replacement 06/08/2018 Stress incontinence 11/21/[address] Armas. Thyroid nodule 11/15/2018 Stable on 2017 Type 2 diabetes mellitus with stage 3 chronic kidney disease, without long-term current use of insulin ([facility]) 06/06/2017 Urge incontinence 11/21/2012 Previous [...] CYSTOSCOPY 09/21/12 EGD 10/17/2011 Dr Negrete in [place] ESOPHAGOGASTRODUODENOSCOPY TRANSORAL DIAGNOSTIC 05/16/2014 EGD ESOPHAGOGASTRODUODENOSCOPY TRANSORAL DIAGNOSTIC 09/12/14 EGD ESOPHAGOGASTRODUODENOSCOPY TRANSORAL DIAGNOSTIC 01/06/2017 EGD ESOPHAGOGASTRODUODENOSCOPY TRANSORAL DIAGNOSTIC 07/21/2020 EGD REMOVE CATARACT, INSERT LENS, INTRACAPSUL Bilateral 2008 Family History FAMILY HISTORY Problem Relation Age of Onset Hypertension Mother Heart Mother Lipids Mother HIGH CHOLESTEROL Heart Father [place] Ischemic Heart Disease Father STROKE other (diabetic) Father Diabetes Sister Diabetes Sister Breast Cancer Sister Patient Allergies ALLERGIES Allergen Reactions Bactrim [Sulfametho* Itching Codeine Mental Status Change Garlic Oil Other: See Comments Lexapro [Escitalopr* Other: See Comments rapid heart rate Oxybutynin Other: See Comments suggerst by Bolster to stop since it can add to [...] of breath (With Spacer). Walker (ULTRA-LIGHT ROLLATOR) [facility] One Rolator with seat. Dx: J44.9, M54.9, [...] patient's family that they can go to [facility] and request virtual visit. - CONSULT TO GERIATRICS 2. Dysuria - ICD9: 788.1, ICD10: R30.0 acute Patient to get UA and Culture completed. - URINALYSIS, WITH MICROSCOPIC - URINE CULTURE - CONSULT TO GERIATRICS 3. Dementia with mood disturbance, unspecified dementia severity, unspecified dementia type - ICD9: 294.21, ICD10: F03.93 See #1. Stephani Crooks PA-C documented in this encounter [facility] 12-16-2022 Miscellaneous Notes Daughter Mariela notified [...] Shelby Rogel LPN documented in this encounter [facility] 12-13-2022 Miscellaneous Notes Last office visit: 11/04/22 F/u scheduled: 03/11/23 Cristina Garcia Ma documented in this encounter [facility] 12-07-2022 Miscellaneous Notes The following approved [...] daily. TAVO: 11/04/22 NOV: 03/11/23 Last Refill: Hollywood: 11/09/22 #60 0 refills Actos: 11/19/22 #90 5 refills.Not due for refill yet Huong Payan LPN documented in this encounter [facility] 12-02-2022 Miscellaneous Notes The following approved medication requests have been transmitted electronically. Requested Prescriptions Signed Prescriptions Disp Refills furosemide (LASIX) 20 mg tablet 180 tablet 1 Sig: Take 1 tablet by mouth twice daily. 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 See below Requested Prescriptions Pending Prescriptions Disp Refills furosemide (LASIX) 20 mg tablet 180 tablet 1 Sig: Take 1 tablet by mouth twice daily. Please review and advise. Brianne Chiang LPN I'm not sure what they need? Does she need a new short term prescription to be sent or the mail order refilled. Stephani Crooks PA-C Please see Linkovery message documented in this encounter [facility] 11-19-2022 Miscellaneous Notes Patient has been [...] Last refill: 08/2022 documented in this encounter [facility] 11-19-2022 Miscellaneous Notes Patient has been [...] go [facility] documented in this encounter [facility] 11-16-2022 Miscellaneous Notes Patient has been identified by name and date of : Yes, Patient phones for refill(s): Requested Prescriptions Pending Prescriptions Disp Refills donepezil (ARICEPT) 10 mg tablet 30 tablet 5 Sig: Take 1 tablet by mouth daily at bedtime. Date of last office visit in primary care: 11/04/22 Please advise. Thank you. Nel Cope LPN documented in this encounter [facility] documented in this encounter [facility]01-03-2023 Miscellaneous Notes* Telephone Encounter - Stephani [...] you. Nel Cope LPN [facility] Miscellaneous Notes* Telephone Encounter - Nel [...] you. Nel Cope LPN [facility] Miscellaneous Notes* Telephone Encounter - Michelle [...] dehydration. Stephani Crooks PA-C [facility] Instructions* Patient Instructions* Stephani Crooks PA-C - 11/04/2022 1:21 PM EST Stop prozac- restart zoloft. Decrease metformin to 1000mg at night. See if this helps with the nausea. Start actos for help on Diabetes management since we are decreasing metformin. Labs today. [facility] History of Present illness Narrative* Stephani [...] 05/08/2013 Diabetes mellitus type 2 in obese ([facility]) 06/2015 a1c 6.5% Diabetic eye exam ([facility]) 03/15/2017 Last done: 10/24/2019 No [...] TACO (obstructive sleep apnea) [facility] [phone] Pain due to total left knee replacement ([facility]) 06/08/2018 Personal history of colonic polyps 01/23/2016 Primary insomnia 03/16/2017 Brain center 06/26/2018 recommended Klonopin every other day for a week and then just as needed. Primary osteoarthritis of right knee 07/13/2016 Pulmonary hypertension ([facility]) 05/19/2022 Seeing pulm and cardio Pulmonary nodules 03/03/2013 Incidental non-calcified nodules 10/09/2012. Repeat CT due 06/2013 Recurrent major depressive disorder, in full remission ([facility]) 08/17/2012 Rheumatoid arthritis(714.0) Spondylosis of lumbar region without myelopathy or radiculopathy 05/28/2015 Status post total left knee replacement 06/08/2018 Stress incontinence 11/21/[address] Armas. Thyroid nodule 11/15/2018 Stable on 2017 Type 2 diabetes mellitus with stage 3 chronic kidney disease, without long-term current use of insulin ([facility]) 06/06/2017 Urge incontinence 11/21/2012 Previous [...] CYSTOSCOPY 09/21/12 EGD 10/17/2011 Dr Negrete in [place] ESOPHAGOGASTRODUODENOSCOPY TRANSORAL DIAGNOSTIC 05/16/2014 EGD ESOPHAGOGASTRODUODENOSCOPY TRANSORAL DIAGNOSTIC 09/12/14 EGD ESOPHAGOGASTRODUODENOSCOPY TRANSORAL DIAGNOSTIC 01/06/2017 EGD ESOPHAGOGASTRODUODENOSCOPY TRANSORAL DIAGNOSTIC 07/21/2020 EGD REMOVE CATARACT, INSERT LENS, INTRACAPSUL Bilateral 2008 Family History FAMILY HISTORY Problem Relation Age of Onset Hypertension Mother Heart Mother Lipids Mother HIGH CHOLESTEROL Heart Father [place] Ischemic Heart Disease Father STROKE other (diabetic) Father Diabetes Sister Diabetes Sister Breast Cancer Sister Patient Allergies ALLERGIES Allergen Reactions Bactrim [Sulfametho* Itching Codeine Mental Status Change Garlic Oil Other: See Comments Lexapro [Escitalopr* Other: See Comments rapid heart rate Oxybutynin Other: See Comments suggerst by Bolster to stop since it can add to [...] Recurrent major depressive disorder, in full remission ([facility]) - ICD9: 296.36, ICD10: F33.42 Will stop prozac and return to zoloft per family request 9. Obesity, Class III, BMI 40-49.9 (morbid obesity) (HCC) - ICD9: 278.01, ICD10: E66.01 Weight decreasing - Behavioral intervention Stephani Crooks PA-C documented in this [facility]12-08-2022 Miscellaneous Notes* Telephone Encounter - Julia Bradley RN - 10/14/2022 10:55 AM EST Opened In Error documented in this [facility]11-09-2022 Miscellaneous Notes* Telephone Encounter - Antionette Coleman MA - 09/15/2022 8:15 AM EST Medication attached to another phone encounter. Antionette Coleman MA documented in this [facility]11-09-2022 Miscellaneous Notes* Telephone Encounter - [...] 09/2022 Last refill: 06/2022 documented in this [facility]11-01-2022 Miscellaneous Notes* Telephone Encounter - Leno [...] you. Nel Cope LPN documented in this [facility]10-21-2022 Miscellaneous Notes* Telephone Encounter - Leno [...] advise. Brianne Chiang LPN [facility] Miscellaneous Notes* Telephone Encounter - Stephani [...] 09/2022 Last refill: 07/04/2022 [facility] Miscellaneous Notes* Telephone Encounter - Antionette [...] help with ADL's ie. Bathing, grooming, mobility. [employer] ph. [phone] also will assess if patient are eligible for Medicaid as that is a requirement for Passport program. Sw looked back through notes and does not see any mention in regards to previous Passport referral or notes in regards to patient already having Passport services. Passport usually helps with home safety modifications, home [employer] rep, home delivered meals, medical alert button costs if eligible. If patient would be open to Sw referring, [facility] [employer] would do the in home assessment to seeif eligible. * Telephone Encounter - Antionette Coleman MA - 07/16/2022 10:00 AM EDT How do we find out if that patient is eligible for Passport? Antionette Coleman MA * Telephone Encounter - ZULEMA Salazar - 07/15/2022 1:54 PM EDT Sw has had patient's purchase motorized scooters from [email or web address] [employer] in [place]. Charan's ph.[phone] or fax#[phone]. I have not found insurance to be covering the cost of scooters unless they may be eligible for [facility] Agency on Aging program. * Telephone Encounter [...] anyone. I told patient I would ask Baby Counselor if she had any other ideas on places for motorized scooters for insurance. If not we have to wait on [facility]. Antionette Coleman MA * Telephone Encounter - Antionette Coleman MA - 07/07/2022 11:20 AM EDT Tried calling [employer] and they do not have motorized scooters. Antionette Coleman MA * Telephone Encounter - Cynthia Shirley LPN - 07/06/2022 10:06 AM EDT Received fax from [facility] that wheelchair that was ordered for pt is on backorder and they are unable to obtain. Advised pt of same and she will check and see if there is anywhere else her insurance will approve of that office can fax order to to see if they can get wheelchair for pt. She will callback with information. Cynthia Shirley LPN documented [facility]09[facility] Miscellaneous Notes* Telephone Encounter - Joy Hicks Ma - 07/26/2022 10:51 AM EDT Please see pt daughter message. Joy Hicks Ma documented in [facility] Miscellaneous Notes* Telephone Encounter - Cynthia Shirley LPN - 07/06/2022 11:18 AM EDT Left message of same on daughter, Mariela'nissa identified vm. Cynthia Shirley LPN * Telephone Encounter - Leno Briggs MD - 07/06/2022 11:06 AM EDT Let daughter know electrolyte panel was ok. documented in this encounterM[facility]08-30[facility]2022 Miscellaneous Notes* Telephone Encounter - Cynthia [...] OTC. Stephani Crooks PA-C documented in this encounterM[facility]08[facility] History of Present illness Narrative* Leno Briggs MD - 07/05/2022 3:20 PM EDT Chief Complaint Patient presents with: Follow Up: KIMBERLI Robbin Singh is a 81 year old female who presents here today for 4 week follow up on Depression/HTN/Edema and Medication. Patient indicated that she contacted insurance and they will approve a scooter for patient if recommended by her PCP. They will pay for 80-90% and can be faxed to [facility] [phone]. Patient here with her daughter today. Patient has recently been released for [facility] services due to meeting goals. At [...] in the next few months. Taking the Hollywood twice a day does help her knee [...] kidney disease) stage 3, GFR 30-59 ml/min ([facility]) 01/01/2019 COPD with chronic bronchitis ([facility]) 02/15/2017 Dr. Brito Current use of proton pump inhibitor 11/25/2016 Mg checked 11/2017 DDD (degenerative disc disease), cervical 07/29/2015 DDD (degenerative disc disease), lumbar 05/08/2013 Diabetes mellitus type 2 in obese ([facility]) 06/2015 a1c 6.5% Diabetic eye exam ([facility]) 03/15/2017 Last done: 10/24/2019 No [...] TACO (obstructive sleep apnea) [facility] [phone] Pain due to total left knee replacement [...] Recurrent major depressive disorder, in full remission ([facility]) 08/17/2012 Rheumatoid arthritis(714.0) Spondylosis of lumbar region without myelopathy or radiculopathy 05/28/2015 Status post total left knee replacement 06/08/2018 Stress incontinence 11/21/[address] Armas. Thyroid nodule 11/15/2018 Stable on US 2017 Type 2 diabetes mellitus with stage 3 chronic kidney disease, without long-term current use of insulin ([facility]) 06/06/2017 Urge incontinence 11/21/2012 Previous [...] CYSTOSCOPY 09/21/12 EGD 10/17/2011 Dr Negrete in [place] ESOPHAGOGASTRODUODENOSCOPY TRANSORAL DIAGNOSTIC 05/16/2014 EGD ESOPHAGOGASTRODUODENOSCOPY TRANSORAL DIAGNOSTIC 09/12/14 EGD ESOPHAGOGASTRODUODENOSCOPY TRANSORAL DIAGNOSTIC 01/06/2017 EGD ESOPHAGOGASTRODUODENOSCOPY TRANSORAL DIAGNOSTIC 07/21/2020 EGD REMOVE CATARACT, INSERT LENS, INTRACAPSUL Bilateral 2008 Family History FAMILY HISTORY Problem Relation Age of Onset Hypertension Mother Heart Mother Lipids Mother HIGH CHOLESTEROL Heart Father UT Ischemic Heart Disease Father STROKE other (diabetic) Father Diabetes Sister Diabetes Sister Breast Cancer Sister Patient Allergies ALLERGIES Allergen Reactions Bactrim [Sulfametho* Itching Codeine Mental Status Change Garlic Oil Other: See Comments Lexapro [Escitalopr* Other: See Comments rapid heart rate Oxybutynin Other: See Comments suggerst by Bolster to stop since it can add to [...] ICD9: 338.4, ICD10: G89.4 - stable with Hollywood 4. Bilateral leg edema - ICD9: 782.3, [...] 09/24/2022 Leno Briggs MD documented [facility] Miscellaneous Notes* Telephone Encounter - Leno [...] message. Cynthia Shirley LPN documented in this [facility]08-23[facility]2022 Miscellaneous Notes* Telephone Encounter - Leon Briggs MD - 06/29/2022 11:51 AM EDT [...] 07/05/22 Cynthia Shirley LPN documented in this encounterM[facility]08[facility]22 Miscellaneous Notes* Telephone Encounter - Leno [...] daily. Leno Briggs MD documented in this encounterMorrow County [facility] Miscellaneous Notes* Telephone Encounter - Cynthia Shirley [...] 05/24/22 F/u scheduled: 07/05/22 Last refilled on: [facility] #[id number] on 06/01/22 Cristina Garcia Ma documented [facility] Miscellaneous Notes* Telephone Encounter - Cristina Garcia Ma - 06/14/2022 12:40 PM EDT Last office visit: 05/24/22 F/u scheduled: 07/05/22 Cristina Garcia Ma documented in [facility] encounterM[facility] History of Present illness Narrative* Leno Briggs MD - 06/13/2022 1:15 PM EDT Patient's home health 485 form / care plan for certification period 05/21/2022 to 07/19/2022 reviewedand signed. Relevant medical records were reviewed. Changes were communicated to home health agency documented in this encounterMorrow [facility]08-03-2022 Miscellaneous Notes* Telephone Encounter - Cristina Garcai Ma - 06/09/2022 12:08 PM EDT Janey notified and voiced understanding. Cristina Garcia Ma * Telephone Encounter - Leno Briggs MD - 06/09/2022 12:02 PM EDT Ok to give verbal ok for delay in care. * Telephone Encounter - Leesa Oro RN - 06/08/2022 4:22 PM EDT Janey- FAITH- [facility]- reports she is to see patient bi-weekly, but patient is a little overwhelmed right now, and asked SW to come next week. FAITH asking for verbal approval for delay of care. Please phone Janey with verbal. documented in this encounterM[facility] Hospital07-28-2022 Miscellaneous Notes* Telephone Encounter - Cristina Garcia Ma - 06/03/2022 1:25 PM EDT Addressed in [employer] [place] message. Cristina Garcia Ma * Telephone Encounter - Cristina Garcia Ma - 06/03/2022 1:12 PM EDT Awaiting response from pt on if she has received her 90 day supply from Mail order pharmacy yet? Cristina Garcia Ma documented in this encounterM[facility]07-28-2022 Miscellaneous Notes* Telephone Encounter - Antionette [...] for functional mobility training. documented in this encounterMorrow [facility] Hospital07-26-2022 Miscellaneous Notes* Telephone Encounter - Octavio [...] patient. Irene Hardin Ma documented in this encounterMorrow [facility] Hospital07-21-2022 Miscellaneous Notes* Telephone Encounter - Cynthia Shirley LPN - 05/27/2022 11:49 AM EDT Orders faxed as requested to DME [phone]. Cynthia Shirley LPN * Telephone Encounter - Stephani Crooks PA-C - 05/27/2022 11:32 AM EDT ready * Telephone Encounter - Brandy Hill Ma - 05/27/2022 11:15 AM EDT Patient has Medicare which handles there own PA if they do not approve diabetic supplies. Please print rx and will need to fax to DME Brandy Hill Ma * Telephone Encounter - Lauren Reyes - 05/27/2022 11:01 AM EDT Gail called back in today after speaking with insurance company last night. She was told the officewould have to call [facility] at [phone]. If it is sent there, then it will be covered.Please advise. * Telephone Encounter - Antionette Coleman MA - 05/26/2022 8:42 PM EDT Spoke with Gail and she indicated that the insurance company [facility] then they would give her the [...] letter. Please advise Gail. documented in this encounterMorrow [facility] Hospital07-20-2022 Miscellaneous Notes* Telephone Encounter - Shira Shell Cma - 05/26/2022 9:15 AM EDT Patient daughter notified and verbalized understanding Shira Shell Cma * Telephone Encounter - Stephani Crooks PA-C - 05/26/2022 9:00 AM EDT Repeat urine is better and culture negative. Stephani Crooks PA-C documented in this encounterMorrow County Hospital07-20-2022 Miscellaneous Notes* Telephone Encounter - Leesa Oro RN - 05/26/2022 8:30 AM EDT Left detailed vm on identified vm with provider's message below. * Telephone Encounter - Leno Briggs MD - 05/25/2022 8:50 PM EDT Let [place] know I'm fine giving order for her to see her one more time. If she needs more visits letme know. * Telephone Encounter - Shelby Rogel LPN - 05/25/2022 3:46 PM EDT Shanta, medical social worker with [facility] calling for verbal order to see pt one more time to follow up on referrals and community resources. Please advise Shanta. Shelby Rogel LPN documented in this encounterMorrow County Hospital07-18-2022 History of Present illness Narrative* Leno [...] cancelled them. patient does not remember this. [facility] has been out to see her encluding SW, retirement and will also include PHYSICAL THERAPY. There [...] kidney disease) stage 3, GFR 30-59 ml/min ([facility]) 01/01/2019 COPD with chronic bronchitis ([facility]) 02/15/2017 Dr. Brito Current use of proton pump inhibitor 11/25/2016 Mg checked 11/2017 DDD (degenerative disc disease), cervical 07/29/2015 DDD (degenerative disc disease), lumbar 05/08/2013 Diabetes mellitus type 2 in obese ([facility]) 06/2015 a1c 6.5% Diabetic eye exam ([facility]) 03/15/2017 Last done: 10/24/2019 No [...] TACO (obstructive sleep apnea) DME [facility] fx [phone] Pain due to total left knee replacement [...] Recurrent major depressive disorder, in full remission ([facility]) 08/17/2012 Rheumatoid arthritis(714.0) Spondylosis of lumbar region without myelopathy or radiculopathy 05/28/2015 Status post total left knee replacement 06/08/2018 Stress incontinence 11/21/[address] Armas. Thyroid nodule 11/15/2018 Stable on 2017 Type 2 diabetes mellitus with stage 3 chronic kidney disease, without long-term current use of insulin ([facility]) 06/06/2017 Urge incontinence 11/21/2012 Previous [...] CYSTOSCOPY 09/21/12 EGD 10/17/2011 Dr Negrete in [place] ESOPHAGOGASTRODUODENOSCOPY TRANSORAL DIAGNOSTIC 05/16/2014 EGD ESOPHAGOGASTRODUODENOSCOPY TRANSORAL DIAGNOSTIC 09/12/14 EGD ESOPHAGOGASTRODUODENOSCOPY TRANSORAL DIAGNOSTIC 01/06/2017 EGD ESOPHAGOGASTRODUODENOSCOPY TRANSORAL DIAGNOSTIC 07/21/2020 EGD REMOVE CATARACT, INSERT LENS, INTRACAPSUL Bilateral 2008 Family History FAMILY HISTORY Problem Relation Age of Onset Hypertension Mother Heart Mother Lipids Mother HIGH CHOLESTEROL Heart Father [place] Ischemic Heart Disease Father STROKE other (diabetic) Father Diabetes Sister Diabetes Sister Breast Cancer Sister Patient Allergies ALLERGIES Allergen Reactions Bactrim [Sulfametho* Itching Codeine Mental Status Change Garlic Oil Other: See Comments Lexapro [Escitalopr* Other: See Comments rapid heart rate Oxybutynin Other: See Comments suggerst by Bolster to stop since it can add to [...] unspecified whether stage 3a or 3b CKD ([facility]) - ICD9: 250.40, 585.3, ICD10: E11.22, N18.30 (primary diagnosis) uncontrolled - Continue current medications - BP goal of <130/80 - LDL goal of <100 - Recently restarted on metformin and increased to two tabs twice a day. 2. Diabetes mellitus type 2 in obese ([facility]) - ICD9: 250.00, 278.00, ICD10: E11.69, E66.9 - As per #1 3. Diabetic eye exam ([facility]) - ICD9: V72.0, 250.00, ICD10: [...] Needs to see cardio. 9. Pulmonary hypertension ([facility]) - ICD9: 416.8, ICD10: I27.20 - Cont f/u with cardio and pulm. She needs to reschedule these appts. 10. Bilateral leg edema - ICD9: 782.3, ICD10: R60.0 - Will add on the aldactone 11. GERD without esophagitis - ICD9: 530.81, ICD10: K21.9 - Continue treatment with Protonix 40 mg BID 12. COPD with chronic bronchitis ([facility]) - ICD9: 491.20, ICD10: J44.9 - Stable. Needs to f/u with pulm 13. Stage 3 chronic kidney disease, unspecified whether stage 3a or 3b CKD ([facility]) - ICD9: 585.3, ICD10: N18.30 - Appears stable. Will need to check renal panel in a few weeks wit being on the aldactone 14. Obesity, Class III, BMI 40-49.9 (morbid obesity) ([facility]) - ICD9: 278.01, ICD10: E66.01 [...] Will need BMP at this time Leno Brgigs MD documented in this encounterMorrow [facility] Hospital07-13-2022 Miscellaneous Notes* Telephone Encounter - Leno [...] of insurance card and med list to [facility] fax#[phone]. Also let daughter know this was done. * Telephone Encounter - ZULEMA Salazar - 05/18/2022 7:24 AM EDT If staff could let patient sister Gail know what comes of response to home health services SW would appreciate. Gail ph.[phone]. * Telephone Encounter - ZULEMA Salazar - [...] be then faxed to home health agency. [facility] fax#[phone]. [facility] fax#[phone], [facility] fax [phone] are other home health care options if [facility] does not work. Sw will [...] that she is wondering about more medical assistance.Sw asked Gail to clarify and she notes [...] health agencies in the community that provide retirement and PT ie. [facility]. Faith noted for Medicare a patient would need to be considered home bound. Home Health agencies also look to provider notes to see about home health being discussed at . Faith also noted [facility] program. [facility] has nursing,social work, therapy and [employer] students that go to patients homes that have chronic illness to help support them. Faith noted that she would send note to [...] ZULEMA Salazar - 05/13/2022 4:00 PM EDT Faith left message for patient sister Gail,Faith calling in regards to social service needs. Per MARY GRACE Styles note 05/13/22 patient gave verbal permission to speak with Gail ph.[phone]. Faith will try call again tomorrow 05/14 @10am to discuss transportation resources. documented in this encounterMorrow [facility] Hospital07-12-2022 History of Present illness Narrative* TRI Silva - 05/18/2022 2:05 PM EDT PULM FUNCTION SMARTBLOCK: Provider: Stephani Crooks PA-C Assisting Tech: TRI Silva Spirometry w/BD: 1 documented in this encounterMorrow County Hospital07-07-2022 Miscellaneous Notes* Telephone Encounter - Stephani Crooks PA-C - 05/13/2022 2:39 PM EDT Consult placed. * Telephone Encounter - Cynthia Shirley LPN - 05/13/2022 2:31 PM EDT Spoke with pt. She is agreeable to consult with SW. Pt would like SW to contact her sister Gail. Spoke with Gail and her contact # is [phone]. Gail states she will relay information to [...] She states Stephani suggested patient speak to Baby Counselor about transportation issues. Patient's sister says she would likeher sister to speak to a medical social worker. Sister is not listed as an emergency contact or POA. Marie Kumar, RN documented in this encounterMorrow County Hospital07-05-2022 Miscellaneous Notes* Telephone Encounter - Stephani [...] to increase of metformin. Uses [facility]. Pt denies any s/s uti. Will come [...] okay. Stephani Crooks PA-C documented in this encounterMorrow County Hospital07-05-2022 Miscellaneous Notes* Telephone Encounter - Brandy [...] daughter. Cynthia Shirley LPN documented in this encounterMorrow County Hospital07-05-2022 Miscellaneous Notes* Telephone Encounter - Cynthia Shirley LPN - 05/11/2022 8:42 AM EDT Pt requesting refills TAVO 05/07/22 NOV 07/07/22 Cynthia Shirley LPN documented in this encounterMorrow County Hospital07-01-2022 Instructions* Patient Instructions* Stephani Crooks PA-C - 05/07/2022 1:46 PM EDT Please reschedule with pulm and cardiology. documented in this encounterMorrow County Hospital07-01-2022 History of Present illness Narrative* Stephani [...] kidney disease) stage 3, GFR 30-59 ml/min ([facility]) 01/01/2019 COPD with chronic bronchitis ([facility]) 02/15/2017 Dr. Brito Current use of proton pump inhibitor 11/25/2016 Mg checked 11/2017 DDD (degenerative disc disease), cervical 07/29/2015 DDD (degenerative disc disease), lumbar 05/08/2013 Diabetes mellitus type 2 in obese ([facility]) 06/2015 a1c 6.5% Diabetic eye exam ([facility]) 03/15/2017 Last done: 10/24/2019 No [...] TACO (obstructive sleep apnea) DME [employer] fx [phone] Pain due to total left knee replacement ([facility]) 06/08/2018 Personal history of colonic polyps 01/23/2016 Primary insomnia 03/16/2017 [facility] 06/26/2018 recommended Klonopin every other day for a week and then just as needed. Primary osteoarthritis of right knee 07/13/2016 Pulmonary nodules 03/03/2013 Incidental non-calcified nodules 10/09/2012. Repeat CT due 06/2013 Recurrent major depressive disorder, in full remission ([facility]) 08/17/2012 Rheumatoid arthritis(714.0) Spondylosis of lumbar region without myelopathy or radiculopathy 05/28/2015 Status post total left knee replacement 06/08/2018 Stress incontinence 11/21/[address] Armas. Thyroid nodule 11/15/2018 Stable on 2017 Type 2 diabetes mellitus with stage 3 chronic kidney disease, without long-term current use of insulin ([facility]) 06/06/2017 Urge incontinence 11/21/2012 Previous Surgical History PAST SURGICAL HISTORY Procedure Laterality Date CHOLECYSTECTOMY HX 10/30/1997 COLONOSCOP W/ OR W/O [facility] SPEC 11/29/12 Colonoscopy repeat 3 years COLONOSCOP W/ OR W/O [facility] SPEC 01/28/16 Colonoscopy with mac COLONOSCOPY & POLYPECTOMY ~2007 2 polyps COLONOSCOPY & POLYPECTOMY ~2001 7 polyps COLONOSCOPY & POLYPECTOMY 11/30/2011 CYSTOSCOPY 09/21/12 EGD 10/17/2011 Dr Negrete in [place] EGD W/O OR W/BRUSH/WASH 05/16/2014 EGD EGD W/O OR W/BRUSH/WASH 09/12/14 EGD EGD W/O OR W/BRUSH/WASH 01/06/2017 EGD EGD W/O OR W/BRUSH/WASH 07/21/2020 EGD REMOVE CATARACT, INSERT LENS, INTRACAPSUL Bilateral 2008 TOTAL KNEE REPLACEMENT Left 06/08/2012 Family History FAMILY HISTORY Problem Relation Age of Onset Hypertension Mother Heart Mother Lipids Mother HIGH CHOLESTEROL Heart Father [place] Ischemic Heart Disease Father STROKE other (diabetic) Father Diabetes Sister Diabetes Sister Breast Cancer Sister Patient Allergies ALLERGIES Allergen Reactions Bactrim [Sulfametho* Itching Codeine Mental Status Change Garlic Oil Other: See Comments Lexapro [Escitalopr* Other: See Comments rapid heart rate Oxybutynin Other: See Comments suggerst by Bolster to stop since it can add to [...] mouth once daily. ) Walker (ULTRA-LIGHT ROLLATOR) [facility] One Rolator with seat. Dx: J44.9, M54.9, [...] recheck. Stephani Crooks PA-C documented in this encounterMorrow County Hospital07-01-2022 Evaluation note* Diagnosis Type 2 diabetes [...] and respiratory abnormality documented in this encounter [facility]06[facility] Miscellaneous Notes* Telephone Encounter - Cynthia [...] Tue. Cynthia Shirley LPN documented in this encounterMorrow County Hospital06-16-2022 Miscellaneous Notes* Telephone Encounter - Antionette [...] Garcia Ma * Telephone Encounter - Sun Reyes - 04/21/2022 2:50 PM EDT Pharmacy verified [...] advise. Sun Chavez Pss documented in this encounterMorrow County Hospital05-25-2022 Miscellaneous Notes* Telephone Encounter - Leno [...] LPN * Telephone Encounter - Ana Anderson [facility] - 03/31/2022 9:45 AM EDT [...] pharmacy. No need to notify patient. [facility] documented in this encounterMorrow County Hospital05-25-2022 Miscellaneous Notes* Telephone Encounter - Cynthia [...] notify patient. Romelia Dorantes documented in this encounterMorrow County Hospital05-16-2022 Miscellaneous Notes* Telephone Encounter - Shelby [...] pharmacy. No need to notify patient. Ana [facility] documented in this encounterMorrow County Hospital09-13-2021 NoteHNO ID: [id number] Author: Irene Milian, CT Service: Radiology Author Type: Clinical Photographic Machine Operator Type: Progress Notes Filed: 07/20/2021 2:36 [...] PERIPHERAL IV DATA: Not applicable SIGNED BY: Irene Milian CT July 20, 2021 2:35 PMOhio[facility] [id number] History of Past illness Narrative* Problem Noted [...] of this encounter (statuses as of 06/22/2023) [facility] of [facility] Narrative* Problem [...] of this encounter (statuses as of 06/22/2023) [facility] Narrative* Problem [...] of this encounter (statuses as of 07/06/2023) [facility] Narrative* Problem [...] of this encounter (statuses as of 08/24/2023) [facility] Narrative* Problem [...] of this encounter (statuses as of 09/02/2023) [facility] Narrative* Problem [...] of this encounter (statuses as of 09/20/2023) [facility] Narrative* Problem [...] of this encounter (statuses as of 03/22/2022) [place] [id number] History of Past illness Narrative* Problem Noted [...] of this encounter (statuses as of 03/31/2022) [facility]* Problem [...] of this encounter (statuses as of 03/31/2022) [facility] N[facility]* Problem [...] of this encounter (statuses as of 04/22/2022) [facility] Narr[facility]* Problem [...] of this encounter (statuses as of 04/30/2022) [facility] N[facility]* Problem [...] of this encounter (statuses as of 05/07/2022) [facility]* Problem [...] of this encounter (statuses as of 05/11/2022) [facility]* Problem [...] of this encounter (statuses as of 05/11/2022) [facility]* Problem [...] of this encounter (statuses as of 05/12/2022) [facility]* Problem [...] of this encounter (statuses as of 05/13/2022) [facility]* Problem [...] of this encounter (statuses as of 05/18/2022) [facility]* Problem [...] of this encounter (statuses as of 05/19/2022) [facility]* Problem [...] of this encounter (statuses as of 05/24/2022) [facility]* Problem [...] of this encounter (statuses as of 05/26/2022) [facility] Problem [...] of this encounter (statuses as of 05/27/2022) [facility]* Problem [...] of this encounter (statuses as of 06/01/2022) [facility] Problem [...] of this encounter (statuses as of 06/03/2022) [facility]* Problem [...] of this encounter (statuses as of 06/03/2022) [facility] Problem [...] of this encounter (statuses as of 06/09/2022) [facility] Problem [...] of this encounter (statuses as of 06/14/2022) [facility] Problem [...] of this encounter (statuses as of 06/14/2022) [facility]* Problem [...] of this encounter (statuses as of 06/14/2022) [facility] Problem [...] of this encounter (statuses as of 06/15/2022) [facility] Problem [...] of this encounter (statuses as of 06/29/2022) [facility] Problem [...] of this encounter (statuses as of 06/29/2022) [facility] Problem [...] of this encounter (statuses as of 07/04/2022) [facility] Problem [...] of this encounter (statuses as of 07/05/2022) [facility] Problem [...] of this encounter (statuses as of 07/06/2022) [facility] Problem [...] of this encounter (statuses as of 07/26/2022) [facility] Problem [...] of this encounter (statuses as of 07/27/2022) [facility] Problem [...] of this encounter (statuses as of 08/04/2022) [facility] Problem [...] of this encounter (statuses as of 08/27/2022) [facility] Problem [...] of this encounter (statuses as of 09/08/2022) [facility] Problem [...] of this encounter (statuses as of 09/15/2022) [facility] Problem [...] of this encounter (statuses as of 09/15/2022) [facility] Problem [...] of this encounter (statuses as of 10/14/2022) [facility] Problem [...] of this encounter (statuses as of 11/10/2022) [facility] Problem [...] of this encounter (statuses as of 11/10/2022) [facility] Problem [...] of this encounter (statuses as of 11/11/2022) [facility] Problem [...] of this encounter (statuses as of 11/11/2022) [facility] Problem [...] of this encounter (statuses as of 11/16/2022) [facility] Problem [...] of this encounter (statuses as of 11/19/2022) [facility] Problem [...] of this encounter (statuses as of 11/19/2022) [facility] Problem [...] of this encounter (statuses as of 11/22/2022) [facility] Problem [...] of this encounter (statuses as of 12/02/2022) [facility] Problem [...] of this encounter (statuses as of 12/07/2022) [facility] Problem [...] of this encounter (statuses as of 12/13/2022) [facility] Problem [...] of this encounter (statuses as of 12/16/2022) [facility] Problem [...] of this encounter (statuses as of 12/23/2022) [facility] Problem [...] of this encounter (statuses as of 12/24/2022) [facility] Problem [...] of this encounter (statuses as of 12/27/2022) [facility] Problem [...] of this encounter (statuses as of 12/29/2022) [facility] Problem [...] of this encounter (statuses as of 01/06/2023) [facility] Problem [...] of this encounter (statuses as of 01/07/2023) [facility] Problem [...] of this encounter (statuses as of 01/14/2023) [facility] Problem [...] of this encounter (statuses as of 01/18/2023) [facility] Problem [...] of this encounter (statuses as of 01/19/2023) [facility] [facility] Narrative* Problem [...] of this encounter (statuses as of 01/25/2023) [facility] Narrative* Problem [...] of this encounter (statuses as of 01/26/2023) [facility] Narrative* Problem [...] of this encounter (statuses as of 01/26/2023) [facility] Narrative* Problem [...] of this encounter (statuses as of 01/28/2023) [facility] N[facility]ative* Problem [...] of this encounter (statuses as of 01/31/2023) [facility]* Problem [...] of this encounter (statuses as of 02/03/2023) [facility] N[facility]* Problem [...] of this encounter (statuses as of 02/10/2023) [facility] N[facility]* Problem [...] of this encounter (statuses as of 02/10/2023) [facility]* Problem [...] of this encounter (statuses as of 02/11/2023) [facility]* Problem [...] of this encounter (statuses as of 02/14/2023) [facility]* Problem [...] of this encounter (statuses as of 02/14/2023) [facility] N[facility]* Problem [...] of this encounter (statuses as of 02/18/2023) [facility]* Problem [...] of this encounter (statuses as of 03/07/2023) [facility] N[facility]* Problem [...] of this encounter (statuses as of 03/09/2023) [facility] N[facility]* Problem [...] of this encounter (statuses as of 03/09/2023) [facility]* Problem [...] of this encounter (statuses as of 03/12/2023) [facility] N[facility]* Problem [...] of this encounter (statuses as of 03/17/2023) [facility] N[facility]* Problem [...] of this encounter (statuses as of 04/04/2023) [facility] N[facility]* Problem [...] of this encounter (statuses as of 04/11/2023) [facility] Narrative* Problem [...] of this encounter (statuses as of 06/21/2023) [facility] No data available for this section [facility] Evaluation note* Diagnosis Chronic pain of both knees Neuropathic pain Neuralgia, neuritis, and radiculitis, unspecified Chronic pain syndrome Lumbar spondylosis Lumbosacral spondylosis without myelopathy DDD (degenerative disc disease), cervical Degeneration of cervical intervertebral disc Arthritis, multiple joint involvement Unspecified arthropathy, multiple sites [facility] Diagnosis Microscopic hematuria- Primary [facility] Diagnosis 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)- Primary Type II or unspecified type diabetes mellitus without mention of complication, not stated as uncontrolled Recurrent major depressive disorder, in full remission (HCC) MCI (mild cognitive impairment) Mild cognitive impairment, so stated [facility] Diagnosis COPD with chronic bronchitis (HCC) Obstructive chronic bronchitis without exacerbation SOB (shortness of breath) Shortness of breath CHURCH (dyspnea on exertion) Other dyspnea and respiratory abnormality [facility] Diagnosis Chronic pain syndrome- Primary Recurrent [...] obesity Urge incontinence [facility] Diagnosis Type 2 diabetes mellitus with stage 3 chronic kidney disease, without long-term current use of insulin, unspecified whether stage 3a or 3b CKD ([facility])- Primary Diabetes mellitus type 2 in obese ([facility]) Type II or unspecified type diabetes mellitus without mention of complication, not stated as uncontrolled Diabetic eye exam ([facility]) Type II or unspecified type diabetes mellitus without mention of complication, not stated as uncontrolled Essential hypertension Unspecified essential hypertension Mixed hyperlipidemia Anxiety and depression Dysthymic disorder Recurrent major depressive disorder, in full remission ([facility]) Chronic diastolic heart failure ([facility]), mild. Chronic diastolic heart failure Pulmonary hypertension ([facility]) Other chronic pulmonary heart diseases Bilateral leg edema Edema GERD without esophagitis Esophageal reflux COPD with chronic bronchitis (HCC) Obstructive chronic bronchitis without exacerbation Stage 3 chronic kidney disease, unspecified whether stage 3a or 3b CKD ([facility]) Obesity, Class III, BMI 40-49.9 (morbid obesity) (HCC) Morbid obesity TACO (obstructive sleep apnea) Obstructive sleep apnea (adult) (pediatric) Primary insomnia Persistent disorder of initiating or maintaining sleep Bilateral primary osteoarthritis of knee Microscopic hematuria [facility] Diagnosis Chronic pain of both knees Neuropathic pain Neuralgia, neuritis, and radiculitis, unspecified Chronic pain syndrome Lumbar spondylosis Lumbosacral spondylosis without myelopathy DDD (degenerative disc disease), cervical Degeneration of cervical intervertebral disc Arthritis, multiple joint involvement Unspecified arthropathy, multiple sites [facility]* Diagnosis Hypertensive heart disease with congestive heart failure, unspecified heart failure type (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) Stage 3 chronic kidney disease, unspecified whether stage 3a or 3b CKD ([facility]) Major depressive disorder, recurrent episode, in full remission ([facility]) Major depressive disorder, recurrent episode, in full remission Mild cognitive impairment, so stated Mixed hyperlipidemia Cervical spondylosis with myelopathy Other spondylosis with radiculopathy, lumbar region Obstructive chronic bronchitis without exacerbation (HCC) Obstructive chronic bronchitis without exacerbation Obstructive sleep apnea (adult) (pediatric) [facility] [...] arthropathy, multiple sites [facility] Diagnosis Chronic pain of both knees Neuropathic pain Neuralgia, neuritis, and radiculitis, unspecified Chronic pain syndrome Lumbar spondylosis Lumbosacral spondylosis without myelopathy DDD (degenerative disc disease), cervical Degeneration of cervical intervertebral disc Arthritis, multiple joint involvement Unspecified arthropathy, multiple sites [facility]* Diagnosis Nightmares- Primary Other dysfunctions of sleep stages or arousal from sleep Dysuria Dementia with mood disturbance, unspecified dementia severity, unspecified dementia type [facility]* Diagnosis Colovesical fistula- Primary Intestinovesical fistula Vulvar irritation Other specified noninflammatory disorder of vulva and perineum Mixed incontinence Mixed incontinence urge and stress (male)(female) Morbid obesity (HCC) Morbid obesity Dementia, unspecified dementia severity, unspecified dementia type, unspecified whether behavioral, psychotic, or mood disturbance or anxiety ([facility]) [facility]* Diagnosis Chronic pain of both knees Neuropathic pain Neuralgia, neuritis, and radiculitis, unspecified Chronic pain syndrome Lumbar spondylosis Lumbosacral spondylosis without myelopathy DDD (degenerative disc disease), cervical Degeneration of cervical intervertebral disc Arthritis, multiple joint involvement Unspecified arthropathy, multiple sites [facility] Diagnosis Colovesical fistula Intestinovesical fistula Morbid obesity (HCC) Morbid obesity Poorly controlled diabetes mellitus (HCC) Type II or unspecified type diabetes mellitus without mention of complication, not stated as uncontrolled [facility] Diagnosis Colovesical fistula- Primary Intestinovesical fistula [facility] Diagnosis Colovesical fistula- Primary Intestinovesical fistula [facility] Diagnosis Colovesical fistula- Primary Intestinovesical fistula [facility] Diagnosis Medication management- Primary Encounter for long-term (current) use of other medications [facility] Diagnosis Colovesical fistula- Primary Intestinovesical fistula Screening for ischemic heart disease- Primary [facility]* Diagnosis Chronic pain of both knees Neuropathic pain Neuralgia, neuritis, and radiculitis, unspecified Chronic pain syndrome Lumbar spondylosis Lumbosacral spondylosis without myelopathy DDD (degenerative disc disease), cervical Degeneration of cervical intervertebral disc Arthritis, multiple joint involvement Unspecified arthropathy, multiple sites documented in this encounter [facility] note* Diagnosis APPOINTMENT CANCELLED- Primary documented in this encounter [facility] note* Diagnosis Memory loss- Primary Mild episode of recurrent major depressive disorder (HCC) Nightmares Other dysfunctions of sleep stages or arousal from sleep 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 Diagnosis Colovaginal fistula- Primary Diverticulitis Diverticulitis of colon (without mention of hemorrhage) Abnormal CT scan Other nonspecific (abnormal) findings on radiological and other examinations of body structure Dementia, unspecified dementia severity, unspecified dementia type, unspecified whether behavioral, psychotic, or mood disturbance or anxiety ([facility]) Morbid obesity ([facility]) Morbid obesity 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* Diagnosis Memory loss 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 Diagnosis Colovaginal fistula Diabetes mellitus, type 2 ([facility]) Type II or unspecified type diabetes mellitus without mention of complication, not stated as uncontrolled CHF (congestive heart failure) ([facility]/HCC) ([facility]) Congestive heart failure, unspecified [facility]* Diagnosis Moderate late onset Alzheimer's dementia without behavioral disturbance, psychotic disturbance, mood disturbance, or anxiety ([facility])- Primary Insomnia, unspecified type Apathetic behavior due to dementia ([facility]) Mild episode of recurrent major depressive disorder ([facility]) [facility]* Diagnosis Colovaginal fistula- Primary Colovesical fistula Intestinovesical fistula History of diverticulitis [facility] Diagnosis Insomnia, unspecified type [facility]* Diagnosis Chronic pain of both knees [...] head and neck [facility]* Diagnosis Other amnesia- Primary documented in this encounter [facility] note* Diagnosis Dysuria documented in this encounter [facility] note* Diagnosis Anemia, unspecified type- Primary Hyponatremia Hyposmolality and/or hyponatremia documented in this encounter [facility] note* Diagnosis Dysuria Chronic pain of both knees Neuropathic pain Neuralgia, neuritis, and radiculitis, unspecified Chronic pain syndrome Lumbar spondylosis Lumbosacral spondylosis without myelopathy DDD (degenerative disc disease), cervical Degeneration of cervical intervertebral disc Arthritis, multiple joint involvement Unspecified arthropathy, multiple sites documented in this encounter [facility] Discharge instructions* Attachments The following attachments cannot be sent through Care Everywhere. * Colon Polypectomy Discharge Instructions (Micronesian) [facility] Outpatient Procedure (Routine) - Authorized Specialty Diagnoses / Procedures Referred By Lovely estrada Referred To [facility] Diagnoses COPD with chronic bronchitis (HCC) SOB (shortness of breath) CHURCH (dyspnea on exertion) Procedures SPIROMETRY - BASELINE AND POST DILATOR BRNCDILAT RSPSE SPMTRY PRE&POST-BRNCDILAT ADMN Stephani Crooks PA-C [address] [place] [address] Res[facility] [place] [address] [place] [address] Referral ID Status Reason Start Date Expiration Date Visits Requested Visits Authorized [id number] Authorized Auto-Generat ed Referral 05/07/2022 11/06/2022 1 1 * Outpatient Procedure (Routine) - Authorized Specialty Diagnoses / Procedures Referred By Lovely estrada Referred To Contact [facility] Diagnoses Chronic diastolic heart failure (HCC) SOB (shortness of breath) CHURCH (dyspnea on exertion) Procedures ECHO ECHO TTHRC R-T 2D W/WOM-MODE COMPL SPEC&COLR D Stephani Crooks PA-C [address] [place] [address] [facility] [place] [address] [place] [address] Referral ID Status Reason Start Date Expiration Date Visits Requested Visits Authorized [id number] Authorized Auto-Generat ed Referral 05/07/2022 11/06/2022 1 1 [facility] for referral (narrative)* Outpatient Procedure (Routine) - Pending Review Specialty Diagnoses / Procedures Referred By Lovely t Referred To Contact [facility] Diagnoses Colovesical fistula Procedures COLONOSCOPY DIAGNOSTIC COLONOSCOPY FLX DX W/COLLJ SPEC WHEN Leonel Lopez MD [address] [place], [place] [id number] [facility] Disease [place] [id number] Referral ID Status Reason Start Date Expiration Date Visits Requested Visits Authorized [id number] Pending Review Auto-Generat ed Referral 02/18/2023 02/19/2024 1 1 [facility] note* JETHRO Barragan: PERFORM Event Display: Patient Summary Documents Authored Date: [id number] [facility] Summary Purpose Family History No Family History Records FoundNo Family History Records FoundNo Family History Records FoundNo Family History Records FoundNo Family History Records Found No data available for this section No data available for this section No Family History Records FoundNo Family History Records Found Advance Directives No Advanced Directives Records FoundDocuments on File Type Date Recorded Patient [place] Program Coordinator Expl anation Advance Directive(s) 07/21/2020 9:36 AM [...] Documents on File Type Date Recorded Patient [place] Program Coordinator Expl anation Advance Directive(s) 07/21/2020 9:36 AM [...] Documents on File Type Date Recorded Patient [place] Program Coordinator Expl anation Advance Directives and Livin g Will 05/04/2023 1:18 PM Latest Code Status on File Code Status Date Activated Date Inactivated Comments Full Code 05/25/2023 8:10 AM 05/25/2023 2:17 PM Documents on File Type Date Recorded Patient [place] Program Coordinator Expl anation Advance Directives and Livin g [...] Referral Specialty Diagnoses / Procedures Referred By Lovely estrada Referred To Contact Gerontology Diagnoses Dysuria Nightmares Procedures CONSULT TO GERIATRICS OFFICE/OUTPATIENT NEW HIGH MDM 60-74 MINUTES Stephani Crooks PA-C [address] [place] [address] Referral ID Status Reason Start Date Expiration Date Visits Requested Visits Authorized [id number] Pending Review PCP Requested Referral 12/23/2022 12/23/2023 1 1 Specialty Diagnoses / Procedures Referred By Contac t Referred To Contact Colon and Rectal Surgery Diagnoses Colovesical fistula Procedures CONSULT TO COLO-RECTAL SURGERY OFFICE/OUTPATIENT [facility] 60-74 MINUTES 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[employer] [address] [place] [address] Referral ID Status Reason Start Date Expiration Date Visits Requested Visits Authorized [id number] Pending Review PCP Requested Referral 01/06/2023 01/06/2024 1 1 Specialty Diagnoses / Procedures Referred By Contac t Referred To Contact Stephani Crooks PA-C [address] [place] [address] Referral ID Status Reason Start Date Expiration Date Visits Re quested Visits Authorized [id number] Closed 1 1 Specialty Diagnoses / Procedures Referred By Contac t Referred To Contact Colon and Rectal Surgery Diagnoses Colovesical fistula Procedures CONSULT TO COLO-RECTAL SURGERY OFFICE/OUTPATIENT [facility] 60-74 MINUTES Leesa Ramirez MD [address] [facility] [place] [address] Referral ID Status Reason Start Date Expiration Date Visits Requested Visits Authorized [id number] Pending Review PCP Requested Referral 01/25/2023 01/25/2024 1 1 Specialty Diagnoses / Procedures Referred By Contac t Referred To Contact Radiology Diagnoses Memory loss Procedures CT head wo IV contrast Shantal Serrano, 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 [address] [address] Referral ID Status Reason Start Date Expiration Date V isits Requested Visits Authorized [id number] Authorized 04/05/2023 10/02/2023 1 1 Referral ID Status Reason Start Date Expiration Date Visits Re quested Visits Authorized [id number] Closed 04/05/2023 10/02/2023 1 1 Additional Source Comments INFORMATION SOURCE (unrecogn ized section and content) DATE CREATED AUTHOR AUTHOR'S ORGANIZ ATION 04/13/2019 [facility] DATE CREATED AUTHOR AUTHOR'S ORGANIZ ATION 07/22/2021 [facility] DATE CREATED AUTHOR AUTHOR'S ORGANIZ ATION 02/05/2023 [facility] DATE CREATED AUTHOR AUTHOR'S ORGANIZ ATION 09/21/2023 [facility] DATE CREATED AUTHOR AUTHOR'S ORGANIZ ATION 12/03/2023 [facility] ([place] DATE CREATED AUTHOR AUTHOR'S ORGANIZ ATION 12/05/2023 [facility] Source Comments (unrecognize d section and content) In the event this informatio n is protected by the Federal Confidentiality of Alcohol and Drug Abuse Patient Records regulations: The Federal rules restrict any use of the information to criminally investigate or prosecute any alcohol or drug abuse patient.[facility] event this information is protected by the Federal Confidentiality of Alcohol and Drug Abuse Patient Records regulations: The Federal rules restrict any use of the information to criminally investigate or prosecute any alcohol or drug abuse patient.[facility] the event this information is protected by the Federal Confidentiality of Alcohol and Drug Abuse Patient Records regulations: The Federal rules restrict any use of the information to criminally investigate or prosecute any alcohol or drug abuse patient.[facility] the event this information is protected by the Federal Confidentiality of Alcohol and Drug Abuse Patient Records regulations: The Federal rules restrict any use of the information to criminally investigate or prosecute any alcohol or drug abuse patient.[facility] the event this information is protected by the Federal Confidentiality of Alcohol and Drug Abuse Patient Records regulations: The Federal rules restrict any use of the information to criminally investigate or prosecute any alcohol or drug abuse patient.[facility] the event this information is protected by the Federal Confidentiality of Alcohol and Drug Abuse Patient Records regulations: The Federal rules restrict any use of the information to criminally investigate or prosecute any alcohol or drug abuse patient.[facility] the event this information is protected by the Federal Confidentiality of Alcohol and Drug Abuse Patient Records regulations: The Federal rules restrict any use of the information to criminally investigate or prosecute any alcohol or drug abuse patient.[facility] the event this information is protected by the Federal Confidentiality of Alcohol and Drug Abuse Patient Records regulations: The Federal rules restrict any use of the information to criminally investigate or prosecute any alcohol or drug abuse patient.[facility] the event this information is protected by the Federal Confidentiality of Alcohol and Drug Abuse Patient Records regulations: The Federal rules restrict any use of the information to criminally investigate or prosecute any alcohol or drug abuse patient.[facility] the event this information is protected by the Federal Confidentiality of Alcohol and Drug Abuse Patient Records regulations: The Federal rules restrict any use of the information to criminally investigate or prosecute any alcohol or drug abuse patient.[facility] the event this information is protected by the Federal Confidentiality of Alcohol and Drug Abuse Patient Records regulations: The Federal rules restrict any use of the information to criminally investigate or prosecute any alcohol or drug abuse patient.[facility] the event this information is protected by the Federal Confidentiality of Alcohol and Drug Abuse Patient Records regulations: The Federal rules restrict any use of the information to criminally investigate or prosecute any alcohol or drug abuse patient.[facility] the event this information is protected by the Federal Confidentiality of Alcohol and Drug Abuse Patient Records regulations: The Federal rules restrict any use of the information to criminally investigate or prosecute any alcohol or drug abuse patient.[facility] the event this information is protected by the Federal Confidentiality of Alcohol and Drug Abuse Patient Records regulations: The Federal rules restrict any use of the information to criminally investigate or prosecute any alcohol or drug abuse patient.[facility] the event this information is protected by the Federal Confidentiality of Alcohol and Drug Abuse Patient Records regulations: The Federal rules restrict any use of the information to criminally investigate or prosecute any alcohol or drug abuse patient.[facility] the event this information is protected by the Federal Confidentiality of Alcohol and Drug Abuse Patient Records regulations: The Federal rules restrict any use of the information to criminally investigate or prosecute any alcohol or drug abuse patient.[facility] HospitalIn the event this information is protected by the Federal Confidentiality of Alcohol and Drug Abuse Patient Records regulations: The Federal rules restrict any use of the information to criminally investigate or prosecute any alcohol or drug abuse patient.[facility] HospitalIn the event this information is protected by the Federal Confidentiality of Alcohol and Drug Abuse Patient Records regulations: The Federal rules restrict any use of the information to criminally investigate or prosecute any alcohol or drug abuse patient.[facility] HospitalIn the event this information is protected by the Federal Confidentiality of Alcohol and Drug Abuse Patient Records regulations: The Federal rules restrict any use of the information to criminally investigate or prosecute any alcohol or drug abuse patient.[facility] HospitalIn the event this information is protected by the Federal Confidentiality of Alcohol and Drug Abuse Patient Records regulations: The Federal rules restrict any use of the information to criminally investigate or prosecute any alcohol or drug abuse patient.[facility] HospitalIn the event this information is protected by the Federal Confidentiality of Alcohol and Drug Abuse Patient Records regulations: The Federal rules restrict any use of the information to criminally investigate or prosecute any alcohol or drug abuse patient.[facility] HospitalIn the event this information is protected by the Federal Confidentiality of Alcohol and Drug Abuse Patient Records regulations: The Federal rules restrict any use of the information to criminally investigate or prosecute any alcohol or drug abuse patient.[facility] HospitalIn the event this information is protected by the Federal Confidentiality of Alcohol and Drug Abuse Patient Records regulations: The Federal rules restrict any use of the information to criminally investigate or prosecute any alcohol or drug abuse patient.[facility] HospitalIn the event this information is protected by the Federal Confidentiality of Alcohol and Drug Abuse Patient Records regulations: The Federal rules restrict any use of the information to criminally investigate or prosecute any alcohol or drug abuse patient.[facility] HospitalIn the event this information is protected by the Federal Confidentiality of Alcohol and Drug Abuse Patient Records regulations: The Federal rules restrict any use of the information to criminally investigate or prosecute any alcohol or drug abuse patient.[facility] HospitalIn the event this information is protected by the Federal Confidentiality of Alcohol and Drug Abuse Patient Records regulations: The Federal rules restrict any use of the information to criminally investigate or prosecute any alcohol or drug abuse patient.[facility] HospitalIn the event this information is protected by the Federal Confidentiality of Alcohol and Drug Abuse Patient Records regulations: The Federal rules restrict any use of the information to criminally investigate or prosecute any alcohol or drug abuse patient.[facility] HospitalIn the event this information is protected by the Federal Confidentiality of Alcohol and Drug Abuse Patient Records regulations: The Federal rules restrict any use of the information to criminally investigate or prosecute any alcohol or drug abuse patient.[facility] HospitalIn the event this information is protected by the Federal Confidentiality of Alcohol and Drug Abuse Patient Records regulations: The Federal rules restrict any use of the information to criminally investigate or prosecute any alcohol or drug abuse patient.[facility] HospitalIn the event this information is protected by the Federal Confidentiality of Alcohol and Drug Abuse Patient Records regulations: The Federal rules restrict any use of the information to criminally investigate or prosecute any alcohol or drug abuse patient.[facility] HospitalIn the event this information is protected by the Federal Confidentiality of Alcohol and Drug Abuse Patient Records regulations: The Federal rules restrict any use of the information to criminally investigate or prosecute any alcohol or drug abuse patient.[facility] HospitalIn the event this information is protected by the Federal Confidentiality of Alcohol and Drug Abuse Patient Records regulations: The Federal rules restrict any use of the information to criminally investigate or prosecute any alcohol or drug abuse patient.[facility] HospitalIn the event this information is protected by the Federal Confidentiality of Alcohol and Drug Abuse Patient Records regulations: The Federal rules restrict any use of the information to criminally investigate or prosecute any alcohol or drug abuse patient.[facility] HospitalIn the event this information is protected by the Federal Confidentiality of Alcohol and Drug Abuse Patient Records regulations: The Federal rules restrict any use of the information to criminally investigate or prosecute any alcohol or drug abuse patient.[facility] HospitalIn the event this information is protected by the Federal Confidentiality of Alcohol and Drug Abuse Patient Records regulations: The Federal rules restrict any use of the information to criminally investigate or prosecute any alcohol or drug abuse patient.[facility] HospitalIn the event this information is protected by the Federal Confidentiality of Alcohol and Drug Abuse Patient Records regulations: The Federal rules restrict any use of the information to criminally investigate or prosecute any alcohol or drug abuse patient.[facility] HospitalIn the event this information is protected by the Federal Confidentiality of Alcohol and Drug Abuse Patient Records regulations: The Federal rules restrict any use of the information to criminally investigate or prosecute any alcohol or drug abuse patient.[facility] HospitalIn the event this information is protected by the Federal Confidentiality of Alcohol and Drug Abuse Patient Records regulations: The Federal rules restrict any use of the information to criminally investigate or prosecute any alcohol or drug abuse patient.[facility] HospitalIn the event this information is protected by the Federal Confidentiality of Alcohol and Drug Abuse Patient Records regulations: The Federal rules restrict any use of the information to criminally investigate or prosecute any alcohol or drug abuse patient.[facility] HospitalIn the event this information is protected by the Federal Confidentiality of Alcohol and Drug Abuse Patient Records regulations: The Federal rules restrict any use of the information to criminally investigate or prosecute any alcohol or drug abuse patient.[facility] HospitalIn the event this information is protected by the Federal Confidentiality of Alcohol and Drug Abuse Patient Records regulations: The Federal rules restrict any use of the information to criminally investigate or prosecute any alcohol or drug abuse patient.[facility] HospitalIn the event this information is protected by the Federal Confidentiality of Alcohol and Drug Abuse Patient Records regulations: The Federal rules restrict any use of the information to criminally investigate or prosecute any alcohol or drug abuse patient.[facility] HospitalIn the event this information is protected by the Federal Confidentiality of Alcohol and Drug Abuse Patient Records regulations: The Federal rules restrict any use of the information to criminally investigate or prosecute any alcohol or drug abuse patient.[facility] HospitalIn the event this information is protected by the Federal Confidentiality of Alcohol and Drug Abuse Patient Records regulations: The Federal rules restrict any use of the information to criminally investigate or prosecute any alcohol or drug abuse patient.[facility] HospitalIn the event this information is protected by the Federal Confidentiality of Alcohol and Drug Abuse Patient Records regulations: The Federal rules restrict any use of the information to criminally investigate or prosecute any alcohol or drug abuse patient.[facility] HospitalIn the event this information is protected by the Federal Confidentiality of Alcohol and Drug Abuse Patient Records regulations: The Federal rules restrict any use of the information to criminally investigate or prosecute any alcohol or drug abuse patient.[facility] HospitalIn the event this information is protected by the Federal Confidentiality of Alcohol and Drug Abuse Patient Records regulations: The Federal rules restrict any use of the information to criminally investigate or prosecute any alcohol or drug abuse patient.[facility] HospitalIn the event this information is protected by the Federal Confidentiality of Alcohol and Drug Abuse Patient Records regulations: The Federal rules restrict any use of the information to criminally investigate or prosecute any alcohol or drug abuse patient.[facility] HospitalIn the event this information is protected by the Federal Confidentiality of Alcohol and Drug Abuse Patient Records regulations: The Federal rules restrict any use of the information to criminally investigate or prosecute any alcohol or drug abuse patient.[facility] HospitalIn the event this information is protected by the Federal Confidentiality of Alcohol and Drug Abuse Patient Records regulations: The Federal rules restrict any use of the information to criminally investigate or prosecute any alcohol or drug abuse patient.[facility] HospitalIn the event this information is protected by the Federal Confidentiality of Alcohol and Drug Abuse Patient Records regulations: The Federal rules restrict any use of the information to criminally investigate or prosecute any alcohol or drug abuse patient.[facility] HospitalIn the event this information is protected by the Federal Confidentiality of Alcohol and Drug Abuse Patient Records regulations: The Federal rules restrict any use of the information to criminally investigate or prosecute any alcohol or drug abuse patient.[facility] HospitalIn the event this information is protected by the Federal Confidentiality of Alcohol and Drug Abuse Patient Records regulations: The Federal rules restrict any use of the information to criminally investigate or prosecute any alcohol or drug abuse patient.[facility] HospitalIn the event this information is protected by the Federal Confidentiality of Alcohol and Drug Abuse Patient Records regulations: The Federal rules restrict any use of the information to criminally investigate or prosecute any alcohol or drug abuse patient.[facility] HospitalIn the event this information is protected by the Federal Confidentiality of Alcohol and Drug Abuse Patient Records regulations: The Federal rules restrict any use of the information to criminally investigate or prosecute any alcohol or drug abuse patient.[facility] HospitalIn the event this information is protected by the Federal Confidentiality of Alcohol and Drug Abuse Patient Records regulations: The Federal rules restrict any use of the information to criminally investigate or prosecute any alcohol or drug abuse patient.[facility] HospitalIn the event this information is protected by the Federal Confidentiality of Alcohol and Drug Abuse Patient Records regulations: The Federal rules restrict any use of the information to criminally investigate or prosecute any alcohol or drug abuse patient.[facility] HospitalIn the event this information is protected by the Federal Confidentiality of Alcohol and Drug Abuse Patient Records regulations: The Federal rules restrict any use of the information to criminally investigate or prosecute any alcohol or drug abuse patient.[facility] HospitalIn the event this information is protected by the Federal Confidentiality of Alcohol and Drug Abuse Patient Records regulations: The Federal rules restrict any use of the information to criminally investigate or prosecute any alcohol or drug abuse patient.[facility] HospitalIn the event this information is protected by the Federal Confidentiality of Alcohol and Drug Abuse Patient Records regulations: The Federal rules restrict any use of the information to criminally investigate or prosecute any alcohol or drug abuse patient.[facility] HospitalIn the event this information is protected by the Federal Confidentiality of Alcohol and Drug Abuse Patient Records regulations: The Federal rules restrict any use of the information to criminally investigate or prosecute any alcohol or drug abuse patient.[facility] HospitalIn the event this information is protected by the Federal Confidentiality of Alcohol and Drug Abuse Patient Records regulations: The Federal rules restrict any use of the information to criminally investigate or prosecute any alcohol or drug abuse patient.[facility] HospitalIn the event this information is protected by the Federal Confidentiality of Alcohol and Drug Abuse Patient Records regulations: The Federal rules restrict any use of the information to criminally investigate or prosecute any alcohol or drug abuse patient.[facility] HospitalIn the event this information is protected by the Federal Confidentiality of Alcohol and Drug Abuse Patient Records regulations: The Federal rules restrict any use of the information to criminally investigate or prosecute any alcohol or drug abuse patient.[facility] HospitalIn the event this information is protected by the Federal Confidentiality of Alcohol and Drug Abuse Patient Records regulations: The Federal rules restrict any use of the information to criminally investigate or prosecute any alcohol or drug abuse patient.[facility] HospitalIn the event this information is protected by the Federal Confidentiality of Alcohol and Drug Abuse Patient Records regulations: The Federal rules restrict any use of the information to criminally investigate or prosecute any alcohol or drug abuse patient.[facility] HospitalIn the event this information is protected by the Federal Confidentiality of Alcohol and Drug Abuse Patient Records regulations: The Federal rules restrict any use of the information to criminally investigate or prosecute any alcohol or drug abuse patient.[facility] HospitalIn the event this information is protected by the Federal Confidentiality of Alcohol and Drug Abuse Patient Records regulations: The Federal rules restrict any use of the information to criminally investigate or prosecute any alcohol or drug abuse patient.[facility] HospitalIn the event this information is protected by the Federal Confidentiality of Alcohol and Drug Abuse Patient Records regulations: The Federal rules restrict any use of the information to criminally investigate or prosecute any alcohol or drug abuse patient.[facility] HospitalIn the event this information is protected by the Federal Confidentiality of Alcohol and Drug Abuse Patient Records regulations: The Federal rules restrict any use of the information to criminally investigate or prosecute any alcohol or drug abuse patient.[facility] HospitalIn the event this information is protected by the Federal Confidentiality of Alcohol and Drug Abuse Patient Records regulations: The Federal rules restrict any use of the information to criminally investigate or prosecute any alcohol or drug abuse patient.[facility] HospitalIn the event this information is protected by the Federal Confidentiality of Alcohol and Drug Abuse Patient Records regulations: The Federal rules restrict any use of the information to criminally investigate or prosecute any alcohol or drug abuse patient.[facility] HospitalIn the event this information is protected by the Federal Confidentiality of Alcohol and Drug Abuse Patient Records regulations: The Federal rules restrict any use of the information to criminally investigate or prosecute any alcohol or drug abuse patient.[facility] HospitalIn the event this information is protected by the Federal Confidentiality of Alcohol and Drug Abuse Patient Records regulations: The Federal rules restrict any use of the information to criminally investigate or prosecute any alcohol or drug abuse patient.[facility] HospitalIn the event this information is protected by the Federal Confidentiality of Alcohol and Drug Abuse Patient Records regulations: The Federal rules restrict any use of the information to criminally investigate or prosecute any alcohol or drug abuse patient.[facility] HospitalIn the event this information is protected by the Federal Confidentiality of Alcohol and Drug Abuse Patient Records regulations: The Federal rules restrict any use of the information to criminally investigate or prosecute any alcohol or drug abuse patient.[facility] HospitalIn the event this information is protected by the Federal Confidentiality of Alcohol and Drug Abuse Patient Records regulations: The Federal rules restrict any use of the information to criminally investigate or prosecute any alcohol or drug abuse patient.[facility] HospitalIn the event this information is protected by the Federal Confidentiality of Alcohol and Drug Abuse Patient Records regulations: The Federal rules restrict any use of the information to criminally investigate or prosecute any alcohol or drug abuse patient.[facility] HospitalIn the event this information is protected by the Federal Confidentiality of Alcohol and Drug Abuse Patient Records regulations: The Federal rules restrict any use of the information to criminally investigate or prosecute any alcohol or drug abuse patient.[facility] HospitalIn the event this information is protected by the Federal Confidentiality of Alcohol and Drug Abuse Patient Records regulations: The Federal rules restrict any use of the information to criminally investigate or prosecute any alcohol or drug abuse patient.[facility] HospitalIn the event this information is protected by the Federal Confidentiality of Alcohol and Drug Abuse Patient Records regulations: The Federal rules restrict any use of the information to criminally investigate or prosecute any alcohol or drug abuse patient.[facility] HospitalIn the event this information is protected by the Federal Confidentiality of Alcohol and Drug Abuse Patient Records regulations: The Federal rules restrict any use of the information to criminally investigate or prosecute any alcohol or drug abuse patient.[facility] HospitalIn the event this information is protected by the Federal Confidentiality of Alcohol and Drug Abuse Patient Records regulations: The Federal rules restrict any use of the information to criminally investigate or prosecute any alcohol or drug abuse patient.[facility] HospitalIn the event this information is protected by the Federal Confidentiality of Alcohol and Drug Abuse Patient Records regulations: The Federal rules restrict any use of the information to criminally investigate or prosecute any alcohol or drug abuse patient.[facility] HospitalIn the event this information is protected by the Federal Confidentiality of Alcohol and Drug Abuse Patient Records regulations: The Federal rules restrict any use of the information to criminally investigate or prosecute any alcohol or drug abuse patient.[facility] Reason for Visit (unrecogniz ed section and content) Reason Onset Date Comments Refill Request 03/31/2022 Reason Onset Date Comments Refill Request 04/21/2022 Reason Comments Multiple Missed Appointment Reason Comments 6 Month Exam Specialty Diagnoses / Procedures Referred By Lovely estrada Referred To Contact Family Practice / FAMILY MEDICINE Diagnoses 6 mo follow up /meds Procedures 4C EST Self, Stephani Ortiz PA-C [address] [place] [address] Referral ID Status Reason Start Date Expiration Date Visits Re quested Visits Authorized [id number] Closed 05/05/2022 11/06/2022 1 1 Reason Comments Results Reason Onset Date Comments Refill Request 05/10/2022 Reason Comments Patient Update Reason Comments Spirometry Specialty Diagnoses / Procedures Referred By Lovely estrada [facility] Diagnoses COPD with chronic bronchitis (HCC) SOB (shortness of breath) CHURCH (dyspnea on exertion) Procedures SPIROMETRY - BASELINE AND POST DILATOR BRNCDILAT RSPSE SPMTRY PRE&POST-BRNCDILAT ADMN Stephani Crooks PA-C [address] [place] [address] [facility] [place] [address] [place] [address] Referral ID Status Reason Start Date Expiration Date V isits Requested Visits Authorized [id number] Closed Auto-Generate d Referral 05/07/2022 11/06/2022 1 1 Reason Comments Social Work Services Reason Comments Recheck Specialty Diagnoses / Procedures Referred By Contac t Referred To Contact Family Practice / FAMILY MEDICINE Diagnoses 4 weeks follow up Procedures 4C EST MD Brigitte Mccartney Jeffrey A, MD [address] [place] [id number] Referral ID Status Reason Start Date Expiration Date Visits Re quested Visits Authorized [id number] Closed 05/24/2022 11/06/2022 1 1 Reason Comments [facility] medical social worker verbal order reques t Reason [...] check Procedures 4C EST Leno Briggs MD [address] [place] [id number] Leno Briggs MD [address] [place] [id number] Referral ID Status Reason Start Date Expiration Date Visits Re quested Visits Authorized [id number] Closed 07/05/2022 11/06/2022 1 1 Reason Comments [...] type Procedures CONSULT TO URO GYNECOLOGY OFFICE/OUTPATIENT [facility] 60-74 MINUTES Madalyn Degroot APRN.CNM [address] [place] [address] Referral ID Status Reason Start Date Expiration Date Visits Requested Visits Authorized [id number] Pending Review PCP Requested Referral Auto-Generate d Referral 12/28/2022 12/28/2023 1 1 Reason Onset Date Comments Refill Request 01/05/2023 Reason Comments vaginal pain Reason Onset Date Comments Refill Request 01/18/2023 Reason Comments Consult Colovesical fistula Specialty Diagnoses / Procedures Referred By Contac t Referred To Contact Colon and Rectal Surgery Diagnoses Colovesical fistula Procedures CONSULT TO COLO-RECTAL SURGERY OFFICE/OUTPATIENT [facility] 60-74 MINUTES Eufemia Chapa, FREIGHT CONDUCTOR.[employer]ING [employer] [address] [place] [address] Referral ID Status Reason Start Date Expiration Date Visits Requested Visits Authorized [id number] Pending Review PCP Requested Referral 01/06/2023 01/06/2024 [...] dementia Procedures geriatric assessment Stephani Crooks [address] [place] [address] 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 [address] [address] Referral ID Status Reason Start Date Expiration Date Visits Re quested Visits Authorized [id number] Closed 04/05/2023 10/02/2023 1 1 Specialty Diagnoses / Procedures Referred By Contac t Referred To Contact 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] Procedures ID COLONOSCOPY FLX DX W/COLLJ SPEC WHEN PFRMD COLONOSCOPY Samantha Nava MD [address] [place] [address] [address] [facility] [address] [place] [address] Referral ID Status Reason Start Date Expiration Date Visits Re quested Visits Authorized [id number] 1 1 Reason Comments Memory Loss Reason Comments Results Best # [phone]( Mariela, daughter)Discuss results of colonoscopy done 05/25/23 Reason Comments Med Refill Reason Comments Recheck Follow up 6 months Reason Onset Date Comments Med Refill 07/05/2023 Reason Onset Date Comments Refill Request 08/23/2023 Reason Onset Date Comments Cancelled Appointment 08/16/2023 Cancel miles ointment 10.10.23 2:45pm Reason Onset Date Comments change appointment 09/14/2023 Care Teams (unrecognized sec tion and content) Verifying Specialist Relationship Specialty Start Date End Date Leno Briggs MD [address] [place], [place] [id number] PCP - General Family Practice 11/25/16 Verifying Specialist Relationship Specialty Start Date End Date Leno Briggs MD [address] [place], [place] [id number] PCP - General Family Practice 11/25/16 Verifying Specialist Relationship Specialty Start Date End Date Leno Briggs MD [address] [place] [address] PCP - General Family Practice 11/25/16 Verifying Specialist Relationship Specialty Start Date End Date Leno Briggs MD [address] [facility] [place] [address] PCP - General Family Practice 11/25/16 Verifying Specialist Relationship Specialty Start Date End Date Leno Briggs MD [facility] [place] [address] PCP - General Family Practice 11/25/16 Verifying Specialist Relationship Specialty Start Date End Date Leno Briggs MD [address] [place] [address], [place] [address] PCP - General Family Practice 11/25/16 Verifying Specialist Relationship Specialty Start Date End Date Leno Briggs MD [address] [place] [address], [place] [address] PCP - General Family Practice 11/25/16 Verifying Specialist Relationship Specialty Start Date End Date Leno Briggs MD [facility] [place] [address] PCP - General Family Practice 11/25/16 Verifying Specialist Relationship Specialty Start Date End Date Leno Briggs MD [address] [place] [address], [place] [address] PCP - General Family Practice 11/25/16 Verifying Specialist Relationship Specialty Start Date End Date Leno Briggs MD [address] [place] [address], [place] [address] PCP - General Family Practice 11/25/16 Verifying Specialist Relationship Specialty Start Date End Date Leno Briggs MD [address] [place] [address], [place] [address] PCP - General Family Practice 11/25/16 Verifying Specialist Relationship Specialty Start Date End Date Leno Briggs MD [address] [place] [address], [place] [address] PCP - General Family Practice 11/25/16 Verifying Specialist Relationship Specialty Start Date End Date Leno Briggs MD [facility] [place] [address] PCP - General Family Practice 11/25/16 Verifying Specialist Relationship Specialty Start Date End Date Leno Briggs MD [address] [place] [address], [place] [address] PCP - General Family Practice 11/25/16 Verifying Specialist Relationship Specialty Start Date End Date Leno Briggs MD [address] [place] [address], [place] [address] PCP - General Family Practice 11/25/16 Verifying Specialist Relationship Specialty Start Date End Date Leno Briggs MD [address] [place] [address], [place] [address] PCP - General Family Practice 11/25/16 Verifying Specialist Relationship Specialty Start Date End Date Leno Briggs MD [address] [place] [address], [place] [address] PCP - General Family Practice 11/25/16 Verifying Specialist Relationship Specialty Start Date End Date Leno Briggs MD [address] [place] [address], [place] [address] PCP - General Family Practice 11/25/16 Verifying Specialist Relationship Specialty Start Date End Date Leno Briggs MD [address] [place] [address], [place] [address] PCP - General Family Practice 11/25/16 Verifying Specialist Relationship Specialty Start Date End Date Leno Briggs MD [address] [place] [address], [place] [address] PCP - General Family Practice 11/25/16 Verifying Specialist Relationship Specialty Start Date End Date Leno Briggs MD [address] [facility] [place] [address] PCP - General Family Medicine 11/25/16 Verifying Specialist Relationship Specialty Start Date End Date Leno Briggs MD [address] [facility] [place] [address] PCP - General Family Medicine 11/25/16 Verifying Specialist Relationship Specialty Start Date End Date Leno Briggs MD [facility] [place] [address] PCP - General Family Medicine 11/25/16 Verifying Specialist Relationship Specialty Start Date End Date Leno Briggs MD [facility] [place] [address] PCP - General Family Medicine 11/25/16 Verifying Specialist Relationship Specialty Start Date End Date Leon Briggs MD [facility] [place] [address] PCP - General Family Medicine 11/25/16 Verifying Specialist Relationship Specialty Start Date End Date Leno Briggs MD [facility] [place] [address] PCP - General Family Medicine 11/25/16 Verifying Specialist Relationship Specialty Start Date End Date Leno Briggs MD [facility] [place] [address] PCP - General Family Medicine 11/25/16 Verifying Specialist Relationship Specialty Start Date End Date Leno Briggs MD [facility] [place] [address] PCP - General Family Medicine 11/25/16 Verifying Specialist Relationship Specialty Start Date End Date Leno Briggs MD [facility] [place] [address] PCP - General Family Medicine 11/25/16 Verifying Specialist Relationship Specialty Start Date End Date Leno Briggs MD [address] [facility] [place] [address] PCP - General Family Medicine 11/25/16 Verifying Specialist Relationship Specialty Start Date End Date Leno Briggs MD [address] [facility] [place] [address] PCP - General Family Medicine 11/25/16 Verifying Specialist Relationship Specialty Start Date End Date Leno Briggs MD [address] [facility] [place] [address] PCP - General Family Medicine 11/25/16 Verifying Specialist Relationship Specialty Start Date End Date Leno Briggs MD [facility] [place] [address] PCP - General Family Medicine 11/25/16 Verifying Specialist Relationship Specialty Start Date End Date Leno Briggs MD [facility] [place] [address] PCP - General Family Medicine 11/25/16 Verifying Specialist Relationship Specialty Start Date End Date Leno Briggs MD [facility] [place] [address] PCP - General Family Medicine 11/25/16 Verifying Specialist Relationship Specialty Start Date End Date Leno Briggs MD [address] [facility] [place] [address] PCP - General Family Medicine 11/25/16 Verifying Specialist Relationship Specialty Start Date End Date Leno Briggs MD [facility] [place] [address] PCP - General Family Medicine 11/25/16 Verifying Specialist Relationship Specialty Start Date End Date Leno Briggs MD [facility] [place] [address] PCP - General Family Medicine 11/25/16 Verifying Specialist Relationship Specialty Start Date End Date Leno Briggs MD [address] [place] [address] PCP - General Family Medicine 11/25/16 Verifying Specialist Relationship Specialty Start Date End Date Leno Briggs MD [address] [place] [address] PCP - General Family Medicine 11/25/16 Verifying Specialist Relationship Specialty Start Date End Date Leno Briggs MD [address] [place] [address] PCP - General Family Medicine 11/25/16 Verifying Specialist Relationship Specialty Start Date End Date Leno Briggs MD [address] [place] [address] PCP - General Family Medicine 11/25/16 Verifying Specialist Relationship Specialty Start Date End Date Leno Briggs MD [address] [place] [address] PCP - General Family Medicine 11/25/16 Verifying Specialist Relationship Specialty Start Date End Date Leno Briggs MD [address] [place] [address] PCP - General 04/01/19 Verifying Specialist Relationship Specialty Start Date End Date Leno Briggs MD [address] [place] [address] PCP - General 04/01/19 Verifying Specialist Relationship Specialty Start Date End Date Leno Briggs MD [address] [place] [address] PCP - General 04/01/19 Verifying Specialist Relationship Specialty Start Date End Date Leno Briggs MD [address] [place] [address] PCP - General 04/01/19 Verifying Specialist Relationship Specialty Start Date End Date Leno Briggs MD [address] [place] [address] PCP - General 04/01/19 Verifying Specialist Relationship Specialty Start Date End Date Leno Briggs MD [address] [place] [address] PCP - General 04/01/19 Verifying Specialist Relationship Specialty Start Date End Date Leno Briggs MD [address] [place] [address] PCP - General 04/01/19 Verifying Specialist Relationship Specialty Start Date End Date Leno Briggs MD [address] [place] [address] PCP - General Family Medicine 11/25/16 Verifying Specialist Relationship Specialty Start Date End Date Leno Briggs MD [address] [place] [address] PCP - General Family Medicine 11/25/16 Verifying Specialist Relationship Specialty Start Date End Date Leno Briggs MD [address] [place] [address] PCP - General Family Medicine 11/25/16 Verifying Specialist Relationship Specialty Start Date End Date Leno Briggs MD [address] [place] [address] PCP - General Family Medicine 11/25/16 Verifying Specialist Relationship Specialty Start Date End Date Leno Briggs MD [address] [place] [address] PCP - General 04/01/19 Verifying Specialist Relationship Specialty Start Date End Date Leno Briggs MD [address] [place] [address] PCP - General 04/01/19 Verifying Specialist Relationship Specialty Start Date End Date Leno Briggs MD [address] [place], [place] [address] PCP - General Family Medicine 11/25/16 Verifying Specialist Relationship Specialty Start Date End Date Leno Briggs MD [address] [place], [place] [address] PCP - General Family Medicine 11/25/16 Verifying Specialist Relationship Specialty Start Date End Date Leno Briggs MD [address] [place], [place] [address] PCP - General Family Medicine 11/25/16 Scheduled [...] BE BASED ON THE PRIMARY CLINICAL RECORDS. [facility] [employer] [facility]. provides no warranty or guarantee of the accuracy or completeness of information in this document.
--- NOTE | 2023-12-19 03:42 | EDS_ITS ---
HPI History of Present Illness Chief Complaint: Rapp C/O Narrative Narrative: Patient is an 83-year-old female from the long term with past medical history of dementia hypertension chronic kidney disease and CHF. She has a chronic indwelling Rapp catheter. The long term states that the catheter became dislodged this evening and they could not replace it and therefore they sent her in for evaluation. They state the patient is acting at her baseline mental status. Based on the patient's dementia she cannot offer any further history PFSH PFS Medical History Altered mental status Arthritis CHF (congestive heart failure) Chronic back pain Colovesical fistula COPD (chronic obstructive pulmonary disease) COVID-19 Dementia with mood disturbance Diabetes DJD (degenerative joint disease) High cholesterol Hypertension Interstitial cystitis Melanoma TACO (obstructive sleep apnea) Pulmonary hypertension Pulmonary nodule Respiratory failure Stage 3a chronic kidney disease (CKD) UTI (urinary tract infection) Home Medications albuterol sulfate 2.5 mg/3 mL (0.083 %) solution for nebulization 2.5 mg inhalation Q6H PRN PRN Wheezing 01/14/18 [History Last Taken Unknown] aspirin 81 mg chewable tablet 81 mg PO DAILY@0800 01/14/18 [History Last Taken Unknown] atorvastatin 40 mg tablet 40 mg PO QHS 01/14/18 [History Last Taken Unknown] furosemide 20 mg tablet 20 mg PO BIDCM 01/14/18 [History Last Taken Unknown] donepezil 10 mg tablet 10 mg PO QHS 11/06/23 [History Last Taken Unknown] mirtazapine 7.5 mg tablet 7.5 mg PO QHS depression 11/06/23 [History Last Taken Unknown] sertraline 50 mg tablet 50 mg PO Q24H 11/06/23 [History Last Taken Unknown] acetaminophen 325 mg tablet 650 mg (2 x 325 mg) PO Q4H PRN PRN Fever, pain 1- 08/16 #0 tabs 11/21/23 [Rx Last Taken Unknown] ipratropium 0.5 mg-albuterol 3 mg (2.5 mg base)/3 mL nebulization soln 3 ml inhalation Q6HWA.RT #1 mL 11/21/23 [Rx Last Taken Unknown] lorazepam 1 mg tablet 1 mg PO Q6H PRN PRN Anxiety/Agitation #8 tabs 11/21/23 [Rx Last Taken Unknown] menthol 0.44 %-zinc oxide 20.6 % topical ointment (Calmoseptine) 1 applic topical 4X/DAY #0 grams 11/21/23 [Rx Last Taken Unknown] miconazole nitrate 2 % topical powder (Desenex) 1 applic topical TID #0 grams 11/21/23 [Rx Last Taken Unknown] olanzapine 2.5 mg tablet 2.5 mg PO BID #0 tabs 11/21/23 [Rx Last Taken Unknown] pantoprazole 40 mg tablet,delayed release 40 mg PO DAILY GERD #0 tabs 11/21/23 [Rx Last Taken Unknown] potassium chloride 20 mEq tablet,extended release(part/cryst) 40 meq (2 x 20 mEq) PO DAILYCM #0 tabs 11/21/23 [Rx Last Taken Unknown] vancomycin 25 mg/mL oral solution (Firvanq) 125 mg (5 mL) PO Q6 #0 mL 11/21/23 [Rx Last Taken Unknown] haloperidol 2 mg tablet 2 mg PO BID acute psychosis 12/02/23 [History Last Taken Unknown] olanzapine 5 mg tablet 5 mg PO BID schizophrenia 12/02/23 [History Last Taken Unknown] phenazopyridine 100 mg tablet 100 mg PO Q8H 12/02/23 [History Last Taken Unknown] acidophilus 25 million cell-pectin, citrus 100 mg tablet 1 tab PO BID #0 tabs 12/09/23 [Rx Last Taken Unknown] Allergy/AdvReac Type Severity Reaction Status Date / Time Iodinated Contrast Media Allergy Other Verified 12/19/23 02:56 [DYEE] morphine AdvReac Shortness Verified 12/19/23 02:56 of breath tramadol [From Ultram] AdvReac Other Verified 12/19/23 02:56 trazodone AdvReac Other Verified 12/19/23 02:56 Family History Mother Hypertension Father CVA (cerebral vascular accident) Hypertension Diabetes Surgical History History of cholecystectomy History of left knee replacement Social History (Updated 12/02/23 @ 22:[address] Myesha Child MD) housing: long term Smoking Status: Former smoker how long ago did patient quit smoking: Quit ~ 27 yrs prior, smoked 4 ppd since age 19 until quit. alcohol intake: never substance use type: does not use ROS ROS ED ROS Narrative Unable to obtain review of systems based on patient's history of dementia EXAM Physical Exam Const Vital Signs: 12/19/23 02:40 12/19/23 03:12 Temperature 97.8 F Temperature Source Temporal Pulse Rate 82 71 Respiratory Rate 16 16 Blood Pressure 121/74 H 117/84 H Blood Pressure Mean 89 95 Pulse Ox 99 97 Positive well nourished, well developed and obese General Appearance ED: well developed; Negative for pallor Nutritional Appearance: obese HEENT Reports dry mucous membranes HEENT Narrative: Mucous membranes are dry and tacky without signs of infection in the posterior pharynx No tongue or lip swelling no oral lesions no airway edema or compromise Mouth ED: Yes dry mucous membranes Mouth: dry mucous membranes Eyes PERRL and EOMs intact bilaterally General Eye ED: Negative for scleral icterus Neck supple Neck Narrative: No nuchal rigidity or meningeal signs noted Resp normal respiratory effort and clear to auscultation bilaterally Resp Narrative: Breath sounds are diminished throughout but overall clear to auscultation without nasal flaring retractions tachypnea or accessory muscle use Cardio regular rate and regular rhythm GI normal to inspection, nondistended, normoactive bowel sounds, non-tender, non- distended and no masses GI Narrative: Abdomen is obese soft nontender nondistended with normal active bowel sounds. No voluntary guarding or rigidity or pulsatile mass. Auscultation: normoactive bowel sounds Palpation: soft Extremity Extremity Narrative: +2 pitting edema to the bilateral lower extremities that is equal and symmetric Neuro CN's II-XII intact bilaterally Neuro Narrative: Cranial nerves II through XII are grossly intact and patient is at her baseline mental status per long term. No new or focal deficit noted Sensorium / Orientation: orientation impaired Motor Exam: general weakness Psych Psych Narrative: Patient has a lethargic/flat affect Skin no rashes or lesions noted Skin Narrative: Skin turgor is elevated/increased General Skin Exam: Negative for jaundice or pallor MDM MDM MDM Narrative Medical decision making narrative: Patient arrived to the ER with stable vitals and at her baseline mental status per long term. The only reason for sending urine was secondary to dislodged Rapp catheter. The catheter was replaced and as vitals are stable I do not feel there is a need to check for urinary tract infection versus pneumonia versus hyperammonemia versus acute on chronic kidney injury. Therefore as main reason for sending the patient and has been resolved and her vitals are stable she is otherwise safe to return to the long term History & Record Review Discussion w/independent historian: EMS personnel Discharge Plan Triage Chief Complaint: Rapp C/O ED Provider: Khai Hooks Dx/Rx/DC Orders Clinical Impression: Dislodged Rapp catheter, Dementia, Chronic kidney disease, Hypertension Instructions: ED Rapp Catheter, Care Prescriptions: No Action atorvastatin 40 MG tablet 40 mg PO QHS albuterol sulfate 2.5 MG/3 ML solution for nebulization 2.5 mg inhalation Q6H PRN PRN (Reason: Wheezing) aspirin 81 MG tablet,chewable 81 mg PO DAILY@0800 furosemide 20 MG tablet 20 mg PO BIDCM haloperidol 2 mg tablet 2 mg PO BID Patient Comments: for 7 day; end date 12/08/2023 olanzapine 5 mg tablet 5 mg PO BID phenazopyridine 100 mg tablet 100 mg PO Q8H Patient Comments: END DATE 12/04/2023 acidophilus-pectin, citrus 25 million cell -100 mg Tablet 1 tab PO BID Qty: 0 0RF donepezil 10 mg tablet 10 mg PO QHS mirtazapine 7.5 mg tablet 7.5 mg PO QHS sertraline 50 mg tablet 50 mg PO Q24H acetaminophen 325 mg Tablet 650 mg PO Q4H PRN PRN (Reason: Fever, pain 1-10/10) Qty: 0 0RF ipratropium-albuterol 0.5 mg-3 mg(2.5 mg base)/3 mL Solution For Nebulization 3 ml inhalation Q6HWA.RT Qty: 1 0RF miconazole nitrate [Desenex] 2 % Powder 1 applic topical TID Qty: 0 0RF Protocol: *Topical Application Instructions APPLICATION INSTRUCTIONS: apply to abdominal and breasts folds Patient Comments: to breast for yeast infection olanzapine 2.5 mg Tablet 2.5 mg PO BID Qty: 0 0RF potassium chloride 20 mEq Tablet,Er Particles/Crystals 40 meq PO DAILYCM Qty: 0 0RF pantoprazole 40 mg Tablet,Delayed Release (Dr/Ec) 40 mg PO DAILY Qty: 0 0RF lorazepam 1 mg Tablet 1 mg PO Q6H PRN PRN (Reason: Anxiety/Agitation) Qty: 8 0RF menthol-zinc oxide [Calmoseptine] 0.44-20.6 % Ointment 1 applic topical 4X/DAY Qty: 0 0RF Protocol: *Topical Application Instructions APPLICATION INSTRUCTIONS: apply to affected region vancomycin [Firvanq] 25 mg/mL Recon Soln 125 mg PO Q6 Qty: 0 0RF Rx Instructions: continue for 10 days-stop on 12/01/23 Primary Care Provider: Brock De La Cruz Referrals: Brock De La Cruz MD [Primary Care Provider] - Disposition Disposition: Home, Self Care Discharge Date/Time: 12/19/23 06:46
== END 2023-12-19 06:46 | disposition home or self-care (01) ==
PROVIDERS: Emergency Provider Emergency Medicine; PCP Family Medicine; Visit Provider Emergency Medicine
DX: T83.028A Displacement of other urinary catheter, initial encounter (principal); F03.93 Unspecified dementia, unspecified severity, with mood disturbance; J44.9 Chronic obstructive pulmonary disease, unspecified; I13.0 Hypertensive heart and chronic kidney disease with heart failure and stage 1 through stage 4 chronic kidney disease, or unspecified chronic kidney disease; I50.9 Heart failure, unspecified; E11.22 Type 2 diabetes mellitus with diabetic chronic kidney disease; N18.31 Chronic kidney disease, stage 3a; Z87.891 Personal history of nicotine dependence; Z79.899 Other long term (current) drug therapy; Z79.82 Long term (current) use of aspirin; Z90.49 Acquired absence of other specified parts of digestive tract; Z96.652 Presence of left artificial knee joint
CPT/HCPCS: 51702; 99282